=== PATIENT | female | born 1995 | race Caucasian/White ===

== ENCOUNTER 2023-04-26 23:29 | Emergency (ER) | payer OTHER, SELFPAY ==
--- OUTSIDE RECORDS SUMMARY | 2023-04-26 23:45 | XMS REPORT | Continuity of Care Document ---
Author Name Unknown Address [address] [facility] [place] [address] [facility] thconnect Address [address] [facility] [address] [place] [address] Care Team Providers Care Acute Specialist Name Role Phone [facility] Primary Care Physician DR SAMMY Albright Attending Clinician Unavailable [id number] Attending Clinician Unavailable [id number] Attending Clinician Unavailable ALVERTO OLIVARES Attending Clinician Unavailable Annleise Brown MA Attending Clinician UnavailCOSME Borrego Attending Clinician Unavailable DR CYRUS MCMANUS Attending Clinician Bull maggi [id number] Attending Clinician Unavailable N Attending Clinician Unavailable Alverto Olivares MD S Attending Clinician [phone] GLORIA JONES Attending Clinician UnavailGLORIA Magaña Attending Clinician UnavailCosme Borrego PA-C Attending Clinician [phone] Anna Morales Attending Clinician [phone] Roland Pearson, Lisa Manuel Attending Clinician [phone] LISA GARCIA Attending Clinician Unavailab le 1, [facility] Attending Clinician Noemi vailable Doctor Unassigned, Emery Attending Clinician U estephanieailELLIOT Chanel Attending Clinician Unavailable MAGALYS LACEY Attending Clinician Unavailable Magalys Lacey MD Attending Clinician [phone] TRACY WHEELER Attending Clinician Unavailable Tracy Wheeler MD Attending Clinician [phone] Elliot Gould MD Attending Clinician [phone] KIRAN SCALES Attending Clinician Unavailable Kiran Scales MD Attending Clinician [phone] SHARI DIAMOND Attending Clinician Unavailable SONIA MAYBERRY Attending Clinician Unavailable Sonia Mayberry MD Attending Clinician [phone] 3, [facility] Room Attending Clinician UnavailMorgan Otto MD Attending Clinician [phone] MORGAN GRANDE Attending Clinician Unavailable MORGAN GRANDE Attending Clinician Unavailable Colin Singh Attending Clinician + [phone] Nataliya Clifton Attending Clinician [phone] NOEL COOLEY Attending Clinician Unavailable Noel Cooley MD Attending Clinician [phone] Pob, [facility] Attending Clinician UnavailShari Johnson PA-C Attending Clinician [phone] Nurse, [facility] Attending Clinician Un available Kurtis CAMPBELL, Lisset Attending Clinician Unavail able Ran Arriaza MD Attending Clinician [phone] RAN ARRIAZA Attending Clinician Unavailable RAN ARRIAZA Attending Clinician Unavailable 1, [facility] Room Attending Clinician Unavaila Ever Alvarez DO Attending Clinician [phone] Ultrasound, [facility] Attending Clinician Unavaila keo Bower MD, Gus Bangura Attending Clinician + [phone] GUS BOWER Attending Clinician Unavaila ble 2, [facility] Attending Clinician Unavailable DERRICK CARBONE Attending Clinician Unavaila keo Gonzalez RN, Adele Manuel Attending Clinician Unavail able Alejandra ACUNA, Emanuel Attending Clinician [phone] [facility], [facility] Neurology Continuity Attending Bon roberson Unavailable ALPHONSO MEJIA Attending Clinician Unavailotto Miller NP, Coleen Crisostomo Attending Clinician + [phone] Melissa Romeo DO Attending Clinician + [phone] ROBY Attending Clinician Unavailable Nkechi Carballo Attending Clinician [phone] Abdirashid Guajardo DO Attending Clinician [phone] Macario Arriaza DO Attending Clinician [phone] TAYLOR HILARIO Attending Clinician Unayves Aranda, [facility] Attending Clinician Unavailable Abner Laguna MD Attending Clinician [phone] DR SAMMY JI Admitting Clinician Unavailable NOEL COOLEY Admitting Clinician Unavailable ELLIOT GOULD Admitting Clinician Unavailable DR CYRUS MCMANUS [facility] Admitting Clinician Elliot Fernandez MD Admitting Clinician [phone] SONIA MAYBERRY Admitting Clinician Unavailable Sonia Mayberry MD Admitting Clinician [phone] Noel Cooley MD Admitting Clinician [phone] Emanuel Roberts MD Admitting Clinician [phone] ROBY Admitting Clinician Unavailable Payers Payer Name Policy Type Policy Number Effective Date Expirati on Date Source [facility] [id number] [facility] [id number] [facility] [id number] 2020 00:00:00 [facility] [place] [id number] 2019 00:00:00 [employer] HMO [id number] 2015 00:00:00 [employer] (POS) [id number] 2015 00:00:00 2020 00:00:00 Problems Condition Name Condition Details Condition Category Status Onset Date Resolution Date Last Treatment Date Treating Clinician Comments Source History of anxiety History of anxiety Disease Active 2021-04 00:00: 00 [facility] History of depression History of depression Disease Active 2021-04 00:00: 00 [facility] Liveborn , of knight , born in hospital by delivery Liveborn infant, of knight , born in hospital by delivery Disease Active 2021-04 00:00: 00 [facility] History of gestationa l hypertensi on History of gestationa l hypertensi on Disease Active 2021-04 00:00: 00 Overview: Formattin g of this note might be different from the original. Added automatic ally from request for surgery [id number] [facility] Headache Headache Disease Active 2021-04 0 00:00: 00 [facility] 33 weeks gestation of 33 weeks gestation of Disease Active 2021-04 014 00:00: 00 [facility] Placenta previa without hemorrhage , antepartum Placenta previa without hemorrhage , antepartum Disease Active 8-03 00:00: 00 [facility] High risk , antepartum High risk , antepartum Disease Active 4-12 00:00: 00 [facility] IIH (idiopathi c intracrani al hypertensi on) IIH (idiopathi c intracrani al hypertensi on) Disease Active 9-23 00:00: 00 [facility] Vaginal cyst Vaginal cyst Disease Active 2017-04 1 00:00: 00 [facility] Obesity (BMI 30-39.9) Obesity (BMI 30-39.9) Disease Active 2017-04 0 00:00: 00 [facility] 36 weeks gestation of 36 weeks gestation of Disease Active 12-25 00:00: 00 [facility] Cold sore Cold sore Disease Active 06-13 00:00: 00 [facility] Atrial fibrillati on, unspecifie d type Atrial fibrillati on, unspecifie d type Disease Active 06-13 00:00: 00 [facility] Nausea Nausea Disease Active 06-13 00:00: 00 [facility] Allergies, Adverse Reactions, Alerts Allergy Name Allergy Type Status Severity Reaction(s) Onset Date Inactive Date Treating Clinician Comments Source No Known Allergie s DA Active U 07-31 00:00: 00 [facility] No Known Environm ental Allergie s MA Active UNKNOWN [facility] No Known Drug Allergie s MA Active UNKNOWN [facility] No Known Food Allergie s MA Active UNKNOWN [facility] NO KNOWN ALLERGIE S Drug Class Active [facility] Family History Family Member Diagnosis Comments Start Date Stop Date Sourc e Natural brother Asthma [facility] Natural father Genetic Unive [facility] Natural mother Depression [facility] Family member Ar[facility]ritis [facility] member Breast Cancer [facility] member Cancer [facility] Family member Colon [facility] Family member Diabetes [facility] Family member Heart [facility] Family member High cholesterol [facility] Family member [facility]pertension [facility] Family member Mental retardation [facility] Family member Neurological [facility] Family [facility]oporosis [facility] Family member Ovarian [facility] member [facility] Family member [facility]ine [facility] Social History Social Habit Start Date Stop Date Quantity Comments Source ASSERTION 2021-06-30 00:00:00 [facility] History SDOH Alcohol Std Drinks [facility] History SDOH Alcohol Binge [facility] History SDOH Alcohol Comment [facility] Gender identity [facility] Sexual orientation [facility] Alcohol intake 2023-01-21 00:00:00 2023-01-21 00:00:00 0 /d [facility] History of Social function 2023-01-21 00:00:00 2023-01-21 00:00:00 [facility] Exposure to SARS-CoV-2 (event) 2022-08-13 00:00:00 2022-08-23 13:15:00 Not sure [facility] Tobacco use and exposure 2021-11-22 00:00:00 2021-11-22 00:00:00 Smokeless tobacco non-user [facility] History SDOH Alcohol Frequency 2021-07-19 00:00:00 2021-07-19 00:00:00 1 [facility] Sex Assigned At 1995 00:00:00 1995 00:00:00 [facility] Smoking Status Start Date Stop Date Source Never smoked tobacco [facility] Medications Ordered Medication Name Filled Medication Name Start Date Stop Date Current Medication? Ordering Clinician Indication Dosage Frequency Signature (SIG) Comments Components Source memantine (NAMENDA) 5 mg tablet 2022-04 00:00: 00 Yes [id number] 10mg Take 2 tablets by mouth in the morning and 2 tablets in the evening. [facility] memantine (NAMENDA) 5 mg tablet 2022-04 00:00: 00 Yes [id number] 10mg Take 2 tablets by mouth in the morning and 2 tablets in the evening. [facility] memantine (NAMENDA) 5 mg tablet 2022-04 00:00: 00 Yes [id number] 10mg Take 2 tablets by mouth in the morning and 2 tablets in the evening. [facility] amphetamine -dextroamph etamine 30 mg 24 hr capsule 8-29 00:00: 00 Yes TAKE 1 CAPSULE BY MOUTH IN THE MORNING [facility] amphetamine -dextroamph etamine 30 mg 24 hr capsule 2022-0 829 00:00: 00 Yes TAKE 1 CAPSULE BY MOUTH IN THE MORNING [facility] amphetamine -dextroamph etamine 30 mg 24 hr capsule 2022-0 829 00:00: 00 Yes TAKE 1 CAPSULE BY MOUTH IN THE MORNING [facility] meclizine 25 mg tablet 2022-0 4-11 00:00: 00 Yes [id number] 25mg Take 1 tablet by mouth every 6 (six) hours as needed for Dizziness. [facility] meclizine 25 mg tablet 2022-0 4-11 00:00: 00 Yes [id number] 25mg Take 1 tablet by mouth every 6 (six) hours as needed for Dizziness. [facility] meclizine 25 mg tablet 2022-0 4-11 00:00: 00 Yes [id number] 25mg Take 1 tablet by mouth every 6 (six) hours as needed for Dizziness. [facility] meclizine 25 mg tablet 2022-0 4-11 00:00: 00 Yes [id number] 25mg Take 1 tablet by mouth every 6 (six) hours as needed for Dizziness. [facility] meclizine 25 mg tablet 2022-0 4-11 00:00: 00 Yes [id number] 25mg Take 1 tablet by mouth every 6 (six) hours as needed for Dizziness. [facility] meclizine 25 mg tablet 2022-0 4-11 00:00: 00 Yes [id number] 25mg Take 1 tablet by mouth every 6 (six) hours as needed for Dizziness. [facility] meclizine 25 mg tablet 2022-0 4-11 00:00: 00 Yes [id number] 25mg Take 1 tablet by mouth every 6 (six) hours as needed for Dizziness. [facility] meclizine 25 mg tablet 2022-0 4-11 00:00: 00 Yes [id number] 25mg Take 1 tablet by mouth every 6 (six) hours as needed for Dizziness. [facility] meclizine 25 mg tablet 3-0 4-11 00:00: 00 Yes [id number] 25mg Take 1 tablet by mouth every 6 (six) hours as needed for Dizziness. [facility] meclizine 25 mg tablet 411 00:00: 00 Yes [id number] 25mg Take 1 tablet by mouth every 6 (six) hours as needed for Dizziness. [facility] meclizine 25 mg tablet 07-31 00:00: 00 01-21 00:00 :00 No [id number] 25mg Take 1 tablet by mouth every 6 (six) hours as needed for Dizziness. [facility] meclizine 25 mg tablet 07-31 00:00: 00 01-21 00:00 :00 No [id number] 25mg Take 1 tablet by mouth every 6 (six) hours as needed for Dizziness. [facility] ketorolac (TORADOL) tablet 20 mg 05-22 02:30: 00 05-22 01:35 :00 No 20mg 20 mg, Oral, ONCE NOW, 1 dose, On Sat05/21/22 at 2030, [facility] predniSONE (DELTASONE) tablet 40 mg 05-22 02:00: 00 05-22 02:07 :00 No 40mg 40 mg, Oral, ONCE, 1 dose, On Sat05/21/22 at 2000, [facility] ketorolac 10 mg tablet 05-21 00:00: 00 Yes [id number] 10mg Take 1 tablet by mouth every 6 (six) hours as needed for Pain (scale 4-6) or Pain (scale 7-10). [facility] ketorolac 10 mg tablet 05-21 00:00: 00 Yes [id number] 10mg Take 1 tablet by mouth every 6 (six) hours as needed for Pain (scale 4-6) or Pain (scale 7-10). [facility] ketorolac 10 mg tablet 0 05-21 00:00: 00 Yes [id number] 10mg Take 1 tablet by mouth every 6 (six) hours as needed for Pain (scale 4-6) or Pain (scale 7-10). [facility] ketorolac 10 mg tablet 05-21 00:00: 00 Yes [id number] 10mg Take 1 tablet by mouth every 6 (six) hours as needed for Pain (scale 4-6) or Pain (scale 7-10). [facility] ketorolac 10 mg tablet 05-21 00:00: 00 Yes [id number] 10mg Take 1 tablet by mouth every 6 (six) hours as needed for Pain (scale 4-6) or Pain (scale 7-10). [facility] ketorolac 10 mg tablet 05-21 00:00: 00 Yes [id number] 10mg Take 1 tablet by mouth every 6 (six) hours as needed for Pain (scale 4-6) or Pain (scale 7-10). [facility] ketorolac 10 mg tablet 05-21 00:00: 00 Yes [id number] 10mg Take 1 tablet by mouth every 6 (six) hours as needed for Pain (scale 4-6) or Pain (scale 7-10). [facility] ketorolac 10 mg tablet 05-21 00:00: 00 Yes [id number] 10mg Take 1 tablet by mouth every 6 (six) hours as needed for Pain (scale 4-6) or Pain (scale 7-10). [facility] ketorolac 10 mg tablet 05-21 00:00: 00 Yes [id number] 10mg Take 1 tablet by mouth every 6 (six) hours as needed for Pain (scale 4-6) or Pain (scale 7-10). [facility] ketorolac 10 mg tablet 05-21 00:00: 00 Yes [id number] 10mg Take 1 tablet by mouth every 6 (six) hours as needed for Pain (scale 4-6) or Pain (scale 7-10). [facility] ketorolac 10 mg tablet 05-21 00:00: 00 Yes [id number] 10mg Take 1 tablet by mouth every 6 (six) hours as needed for Pain (scale 4-6) or Pain (scale 7-10). [facility] ketorolac 10 mg tablet 05-21 00:00: 00 01-21 00:00 :00 No [id number] 10mg Take 1 tablet by mouth every 6 (six) hours as needed for Pain (scale 4-6) or Pain (scale 7-10). [facility] ketorolac 10 mg tablet 05-21 00:00: 00 01-21 00:00 :00 No [id number] 10mg Take 1 tablet by mouth every 6 (six) hours as needed for Pain (scale 4-6) or Pain (scale 7-10). [facility] amoxicillin -clavulanat e 875-125 mg per tablet 05-21 00:00: 00 06-01 05:59 :00 No [id number] 1{tbl} Take 1 tablet by mouth every 12 (twelve) hours for 10 days. [facility] ibuprofen (IBU) tablet 600 mg 2021-04 13:30: 00 03-30 14:08 :00 No 600mg 600 mg, Oral, ONCE, 1 dose, On Sat03/30/22 at 0730, [facility] amoxicillin 500 mg tablet 2021-04 00:00: 00 04-10 05:59 :00 No [id number] 500mg Take 1 tablet by mouth in the morning and 1 tablet in the evening. Do all this for 10 days. [facility] norelgestro min-ethinyl estradiol 150-35 mcg/24 hr patch 2021-04 00:00: 00 Yes [id number] 1{patch } Apply 1 Patch to skin weekly. [facility] norelgestro min-ethinyl estradiol 150-35 mcg/24 hr patch 2021-04 00:00: 00 Yes [id number] 1{patch } Apply 1 Patch to skin weekly. [facility] norelgestro min-ethinyl estradiol 150-35 mcg/24 hr patch 2021-04 00:00: 00 Yes [id number] 1{patch } Apply 1 Patch to skin weekly. [facility] norelgestro min-ethinyl estradiol 150-35 mcg/24 hr patch 2021-04 00:00: 00 Yes [id number] 1{patch } Apply 1 Patch to skin weekly. [facility] norelgestro min-ethinyl estradiol 150-35 mcg/24 hr patch 2021-04 2- 00:00: 00 Yes [id number] 1{patch } Apply 1 Patch to skin weekly. [facility] norelgestro min-ethinyl estradiol 150-35 mcg/24 hr patch 2021-04 2- 00:00: 00 Yes [id number] 1{patch } Apply 1 Patch to skin weekly. [facility] norelgestro min-ethinyl estradiol 150-35 mcg/24 hr patch 2021-04 2- 00:00: 00 Yes [id number] 1{patch } Apply 1 Patch to skin weekly. [facility] norelgestro min-ethinyl estradiol 150-35 mcg/24 hr patch 2021-04 2 00:00: 00 Yes [id number] 1{patch } Apply 1 Patch to skin weekly. [facility] norelgestro min-ethinyl estradiol 150-35 mcg/24 hr patch 2021-04 2 00:00: 00 Yes [id number] 1{patch } Apply 1 Patch to skin weekly. [facility] norelgestro min-ethinyl estradiol 150-35 mcg/24 hr patch 2021-04 2 00:00: 00 Yes [id number] 1{patch } Apply 1 Patch to skin weekly. [facility] norelgestro min-ethinyl estradiol 150-35 mcg/24 hr patch 2021-04 2- 00:00: 00 Yes [id number] 1{patch } Apply 1 Patch to skin weekly. [facility] norelgestro min-ethinyl estradiol 150-35 mcg/24 hr patch 2021-04 2- 00:00: 00 Yes [id number] 1{patch } Apply 1 Patch to skin weekly. [facility] norelgestro min-ethinyl estradiol 150-35 mcg/24 hr patch 2021-04 2- 00:00: 00 Yes [id number] 1{patch } Apply 1 Patch to skin weekly. [facility] norelgestro min-ethinyl estradiol 150-35 mcg/24 hr patch 2021-04 2 00:00: 00 Yes [id number] 1{patch } Apply 1 Patch to skin weekly. [facility] norelgestro min-ethinyl estradiol 150-35 mcg/24 hr patch 2021-04 2 00:00: 00 Yes [id number] 1{patch } Apply 1 Patch to skin weekly. [facility] norelgestro min-ethinyl estradiol 150-35 mcg/24 hr patch 2021-04 2 00:00: 00 Yes [id number] 1{patch } Apply 1 Patch to skin weekly. [facility] norelgestro min-ethinyl estradiol 150-35 mcg/24 hr patch 2021-04 00:00: 00 01-21 00:00 :00 No [id number] 1{patch } Apply 1 Patch to skin weekly. [facility] norelgestro min-ethinyl estradiol 150-35 mcg/24 hr patch 2021-04 00:00: 00 01-21 00:00 :00 No [id number] 1{patch } Apply 1 Patch to skin weekly. [facility] ibuprofen (IBU) tablet 600 mg 2021-04 18:00: 00 Yes 600mg 600 mg, Oral, Q6H ABX, First dose on Sat02/28/22 at 1200, Until Discontinu ed, Routine [facility] ibuprofen (IBU) tablet 600 mg 2021-04 18:00: 00 Yes 600mg 600 mg, Oral, Q6H ABX, First dose on Sat02/28/22 at 1200, Until Discontinu ed, Routine [facility] ketorolac (TORADOL) injection 30 mg 2021-04 18:00: 00 02-28 17:59 :00 No 30mg 30 mg, Slow IV Push, Q6H ABX, 4 doses, First dose on Sat02/27/22 at 1200, Last dose on Sat02/28/22 at 0600, Routine [facility] ketorolac (TORADOL) injection 30 mg 2021-04 18:00: 00 02-28 12:04 :00 No 30mg 30 mg, Slow IV Push, Q6H ABX, 4 doses, First dose on Sat02/27/22 at 1200, Last dose on Sat02/28/22 at 0600, Routine [facility] gabapentin (NEURONTIN) capsule 300 mg 2021-04 14:00: 00 Yes 300mg 300 mg, Oral, TID, First dose on Sat02/27/22 at 0800, Until Discontinu ed, Routine [facility] buPROPion (WELLBUTRIN ) tablet 100 mg 2021-04 14:00: 00 Yes 100mg 100 mg, Oral, BID, First dose on Sat02/27/22 at 0800, Until Discontinu ed, Routine [facility] gabapentin (NEURONTIN) capsule 300 mg 2021-04 14:00: 00 Yes 300mg 300 mg, Oral, TID, First dose on Sat02/27/22 at 0800, Until Discontinu ed, Routine [facility] buPROPion (WELLBUTRIN ) tablet 100 mg 2021-04 14:00: 00 Yes 100mg 100 mg, Oral, BID, First dose on Sat02/27/22 at 0800, Until Discontinu ed, Routine [facility] acetaminoph en (TYLENOL) tablet 650 mg 2021-04 12:00: 00 Yes 650mg 650 mg, Oral, Q6H ABX, First dose on Sat02/27/22 at 0600, Until Discontinu ed, Routine [facility] acetaminoph en (TYLENOL) tablet 650 mg 2021-04 12:00: 00 Yes 650mg 650 mg, Oral, Q6H ABX, First dose on Sat02/27/22 at 0600, Until Discontinu ed, Routine [facility] PNV no.95/nathan fum/folic ac ( ORAL) 2021-04 08:01: 58 02-27 00:00 :00 No [facility] us fum/folic ac ( ORAL) 2021-04 08:01: 58 02-27 00:00 :00 No Take by mouth. [facility] PNV no.95/nathan us fum/folic ac ( ORAL) 2021-04 08:01: 58 02-27 00:00 :00 No Take by mouth. [facility] PNV no.95/nathan us fum/folic ac ( ORAL) 2021-04 08:01: 58 02-27 00:00 :00 No Take by mouth. [facility] sodium chloride 0.9 % irrigation solution 2021-04 05:54: 00 Yes PRN, Starting on Sat02/26/22 at 2354, Until Discontinu ed, Intra-op [facility] sodium chloride 0.9 % irrigation solution 2021-04 05:54: 00 Yes PRN, Starting on Sat02/26/22 at 2354, Until Discontinu ed, Intra-op [facility] lactated ringers IV infusion 1,000 mL 2021-04 03:00: 00 02-27 07:13 :16 No 1000mL at 125 mL/hr, 1,000 mL, IV Infusion, ONCE, 1 dose, On Sat02/26/22 at 2100, Routine [facility] rho(D) immune globulin (RHOGAM) syringe 300 mcg 2021-04 02:57: 35 Yes 300ug 300 mcg, Intramuscu lar, ONCE, For 1 dose, Conditiona l, Routine [facility] rho(D) immune globulin (RHOGAM) syringe 300 mcg 2021-04 02:57: 35 Yes 300ug 300 mcg, Intramuscu lar, ONCE, For 1 dose, Conditiona l, Routine [facility] HYDROcodone -acetaminop hen (NORCO 5) 5-325 mg tablet 1 tablet 2021-04 02:57: 30 Yes 1{tbl} 1 tablet, Oral, Q6HPRN, Starting on Sat02/26/22 at 2057, Until Discontinu ed, Routine, Pain (scale 7-10), Alternate with Ibuprofen [facility] diphenhydrA MINE (BENADRYL) injection 25 mg 2021-04 02:57: 30 Yes 25mg 25 mg, Slow IV Push, Q6HPRN, Starting on Sat02/26/22 at 2056, Until Discontinu ed, Routine, Itching [facility] diphenhydrA MINE (BENADRYL) tablet 25 mg 2021-04 02:57: 30 Yes 25mg 25 mg, Oral, Q6HPRN, Starting on Sat02/26/22 at 2056, Until Discontinu ed, Routine, Sleep, Itching [facility] ondansetron (ZOFRAN (PF)) injection 4 mg 2021-04 02:57: 30 Yes 4mg 4 mg, Slow IV Push, Q8HPRN, Starting on Sat02/26/22 at 2056, Until Discontinu ed, Routine, Nausea and Vomiting (N/V) [facility] bisacodyL (DULCOLAX) suppository 10 mg 2021-04 02:57: 30 Yes 10mg 10 mg, Rectal, QDAILYPRN, Starting on Sat02/26/22 at 2056, Until Discontinu ed, Routine, Constipati on [facility] simethicone (GAS RELIEF (SIMETHICON E)) chewable tablet 160 mg 2021-04 02:57: 30 Yes 160mg 160 mg, Oral, PC+HSPRN, Starting on Sat02/26/22 at 2056, Until Discontinu ed, Routine, Gas [facility] docusate (COLACE) capsule 200 mg 2021-04 02:57: 30 Yes 200mg 200 mg, Oral, QDAILYPRN, Starting on Sat02/26/22 at 2056, Until Discontinu ed, Routine, Constipati on [facility] magnesium hydroxide (MILK OF MAGNESIA) 400 mg/5 mL suspension 30 mL 2021-04 02:57: 30 Yes 30mL 30 mL, Oral, QDAILYPRN, Starting on Sat02/26/22 at 2056, Until Discontinu ed, Routine, Constipati on [facility] lactated ringers IV infusion 1,000 mL 2021-04 02:57: 30 Yes 1000mL at 125 mL/hr, 1,000 mL, IV Infusion, PRN, 1 dose, Starting on Sat02/26/22 at 2056, Until Discontinu ed, Routine [facility] HYDROcodone -acetaminop hen (NORCO 5) 5-325 mg tablet 1 tablet 2021-04 02:57: 30 Yes 1{tbl} 1 tablet, Oral, Q6HPRN, Starting on Sat02/26/22 at 2056, Until Discontinu ed, Routine, Pain (scale 7-10), Alternate with Ibuprofen [facility] diphenhydrA MINE (BENADRYL) injection 25 mg 2021-04 02:57: 30 Yes 25mg 25 mg, Slow IV Push, Q6HPRN, Starting on Sat02/26/22 at 2056, Until Discontinu ed, Routine, Itching [facility] diphenhydrA MINE (BENADRYL) tablet 25 mg 2021-04 02:57: 30 Yes 25mg 25 mg, Oral, Q6HPRN, Starting on Sat02/26/22 at 2056, Until Discontinu ed, Routine, Sleep, Itching [facility] ondansetron (ZOFRAN (PF)) injection 4 mg 2021-04 02:57: 30 Yes 4mg 4 mg, Slow IV Push, Q8HPRN, Starting on Sat02/26/22 at 2056, Until Discontinu ed, Routine, Nausea and Vomiting (N/V) [facility] bisacodyL (DULCOLAX) suppository 10 mg 2021-04 02:57: 30 Yes 10mg 10 mg, Rectal, QDAILYPRN, Starting on Sat02/26/22 at 2056, Until Discontinu ed, Routine, Constipati on [facility] simethicone (GAS RELIEF (SIMETHICON E)) chewable tablet 160 mg 2021-04 02:57: 30 Yes 160mg 160 mg, Oral, PC+HSPRN, Starting on Sat02/26/22 at 205, Until Discontinu ed, Routine, Gas [facility] docusate (COLACE) capsule 200 mg 2021-04 02:57: 30 Yes 200mg 200 mg, Oral, QDAILYPRN, Starting on Sat02/26/22 at 205, Until Discontinu ed, Routine, Constipati on [facility] magnesium hydroxide (MILK OF MAGNESIA) 400 mg/5 mL suspension 30 mL 2021-04 02:57: 30 Yes 30mL 30 mL, Oral, QDAILYPRN, Starting on Sat02/26/22 at 205, Until Discontinu ed, Routine, Constipati on [facility] lactated ringers IV infusion 1,000 mL 2021-04 02:57: 30 Yes 1000mL at 125 mL/hr, 1,000 mL, IV Infusion, PRN, 1 dose, Starting on Sat02/26/22 at 2056, Until Discontinu ed, Routine [facility] mupirocin (BACTROBAN OINT) 2 % skin ointment 2021-04 02:30: 00 Yes Intra-op [facility] mupirocin (BACTROBAN OINT) 2 % skin ointment 2021-04 02:30: 00 Yes Intra-op [facility] betamethaso ne acet,sod phos (CELESTONE SOLUSPAN) 6 mg/mL injection 12 mg 2021-04 00:22: 00 02-27 00:23 :00 No 12mg 12 mg, Intramuscu lar, ONCE, 1 dose, On Sat02/26/22 at 1830, Routine [facility] acetaminoph en 325 mg tablet 2021-04 00:00: 00 Yes [id number] 650mg Take 2 tablets by mouth every 6 (six) hours as needed for Pain (scale 1-3) or Pain (scale 4-6). [facility] vitamin w/FA tablet 2021-04 00:00: 00 Yes [id number] 1{tbl} Take 1 tablet by mouth in the morning. [facility] docusate 100 mg capsule 2021-04 00:00: 00 Yes [id number] 200mg Take 2 capsules by mouth once daily as needed for Constipati on. [facility] ferrous sulfate 325 mg (65 mg iron) tablet 2021-04 00:00: 00 Yes [id number] 325mg Take 1 tablet by mouth in the morning and 1 tablet in the evening. [facility] ibuprofen 600 mg tablet 2021-04 00:00: 00 Yes [id number] 600mg Take 1 tablet by mouth every 6 (six) hours as needed (Pain). Take with food or milk. [facility] acetaminoph en 325 mg tablet 2021-04 00:00: 00 Yes [id number] 650mg Take 2 tablets by mouth every 6 (six) hours as needed for Pain (scale 1-3) or Pain (scale 4-6). [facility] vitamin w/FA tablet 2021-04 00:00: 00 Yes [id number] 1{tbl} Take 1 tablet by mouth in the morning. [facility] docusate 100 mg capsule 2021-04 00:00: 00 Yes [id number] 200mg Take 2 capsules by mouth once daily as needed for Constipati on. [facility] ferrous sulfate 325 mg (65 mg iron) tablet 2021-04 00:00: 00 Yes [id number] 325mg Take 1 tablet by mouth in the morning and 1 tablet in the evening. [facility] ibuprofen 600 mg tablet 2021-04 00:00: 00 Yes [id number] 600mg Take 1 tablet by mouth every 6 (six) hours as needed (Pain). Take with food or milk. [facility] acetaminoph en 325 mg tablet 2021-04 00:00: 00 Yes [id number] 650mg Take 2 tablets by mouth every 6 (six) hours as needed for Pain (scale 1-3) or Pain (scale 4-6). [facility] vitamin w/FA tablet 2021-04 00:00: 00 Yes [id number] 1{tbl} Take 1 tablet by mouth in the morning. [facility] docusate 100 mg capsule 2021-04 00:00: 00 Yes [id number] 200mg Take 2 capsules by mouth once daily as needed for Constipati on. [facility] ferrous sulfate 325 mg (65 mg iron) tablet 2021-04 00:00: 00 Yes [id number] 325mg Take 1 tablet by mouth in the morning and 1 tablet in the evening. [facility] ibuprofen 600 mg tablet 2021-04 00:00: 00 Yes [id number] 600mg Take 1 tablet by mouth every 6 (six) hours as needed (Pain). Take with food or milk. [facility] acetaminoph en 325 mg tablet 2021-04 00:00: 00 03-28 00:00 :00 No [id number] 650mg Take 2 tablets by mouth every 6 (six) hours as needed for Pain (scale 1-3) or Pain (scale 4-6). [facility] vitamin w/FA tablet 2021-04 00:00: 00 03-28 00:00 :00 No [id number] 1{tbl} Take 1 tablet by mouth in the morning. [facility] docusate 100 mg capsule 2021-04 00:00: 00 03-28 00:00 :00 No [id number] 200mg Take 2 capsules by mouth once daily as needed for Constipati on. [facility] ferrous sulfate 325 mg (65 mg iron) tablet 2021-04 00:00: 00 03-28 00:00 :00 No [id number] 325mg Take 1 tablet by mouth in the morning and 1 tablet in the evening. [facility] ibuprofen 600 mg tablet 2021-04 00:00: 00 03-28 00:00 :00 No [id number] 600mg Take 1 tablet by mouth every 6 (six) hours as needed (Pain). Take with food or milk. [facility] acetaminoph en 325 mg tablet 2021-04 00:00: 03-28 00:00 :00 No [id number] 650mg Take 2 tablets by mouth every 6 (six) hours as needed for Pain (scale 1-3) or Pain (scale 4-6). [facility] vitamin w/FA tablet 2021-04 00:00: 00 03-28 00:00 :00 No [id number] 1{tbl} Take 1 tablet by mouth in the morning. [facility] docusate 100 mg capsule 2021-04 00:00: 00 03-28 00:00 :00 No [id number] 200mg Take 2 capsules by mouth once daily as needed for Constipati on. [facility] ferrous sulfate 325 mg (65 mg iron) tablet 2021-04 00:00: 00 03-28 00:00 :00 No [id number] 325mg Take 1 tablet by mouth in the morning and 1 tablet in the evening. [facility] ibuprofen 600 mg tablet 2021-04 00:00: 03-28 00:00 :00 No [id number] 600mg Take 1 tablet by mouth every 6 (six) hours as needed (Pain). Take with food or milk. [facility] HYDROcodone -acetaminop hen 5-325 mg tablet 2021-04 00:00: 00 03-07 05:59 :00 No [id number] 1{tbl} Take 1 tablet by mouth every 6 (six) hours as needed for Pain (scale 7-10) (Alternate with Ibuprofen) for up to 7 days. Indication s: acute pain [facility] HYDROcodone -acetaminop hen 5-325 mg tablet 2021-04 00:00: 00 03-07 05:59 :00 No [id number] 1{tbl} Take 1 tablet by mouth every 6 (six) hours as needed for Pain (scale 7-10) (Alternate with Ibuprofen) for up to 7 days. Indication s: acute pain [facility] gabapentin 300 mg capsule 2021-04 00:00: 00 03-05 05:59 :00 No [id number] 300mg Take 1 capsule by mouth in the morning and 1 capsule at noon and 1 capsule in the evening. Do all this for 5 days. [facility] gabapentin 300 mg capsule 2021-04 00:00: 00 03-05 05:59 :00 No [id number] 300mg Take 1 capsule by mouth in the morning and 1 capsule at noon and 1 capsule in the evening. Do all this for 5 days. [facility] sodium citrate-cit jaylen acid (BICITRA) 500-334 mg/5 mL solution 30 mL 2021-04 21:55: 25 02-27 01:28 :00 No 30mL 30 mL, Oral, PRE-PROCED URE ONCE, 1 dose, Starting on Sat02/26/22 at 1555, Until Discontinu ed, Routine, Surgery/Pr ocedure [facility] lactated ringers IV infusion 500 mL 2021-04 21:55: 25 02-27 02:57 :33 No 500mL at 999 mL/hr, 500 mL, IV Infusion, PRN - SEE INSTRUCTIO NS, Starting on Sat02/26/22 at 1555, Until Sat02/26/22 at 2056, Routine [facility] D5W-LR IV infusion 1,000 mL 2021-04 21:55: 25 02-27 02:57 :33 No 1000mL at 1-125 mL/hr, IV Infusion, TITRATE, Starting on Sat02/26/22 at 1555, Until Sat02/26/22 at 2056, Routine [facility] PNV no.95/nathan us fum/folic ac ( ORAL) 2021-04 19:48: 58 Yes Take by mouth. [facility] PNV no.95/nathan us fum/folic ac ( ORAL) 2021-04 15:52: 08 Yes Take by mouth. [facility] Nitrofurant oin&Nit. Macrocryst (MACROBID) 100 mg capsule 100 mg 2021-04 21:30: 00 02-25 20:43 :00 No 100mg 100 mg, Oral, ONCE, 1 dose, On 02/25/22 at 1530, Routine
Reason for Anti-Infec tive: Empiric Therapy for Suspected Infection< br>Empiric Therapy Site: Urine
D uration of therapy: 5 days [facility] PNV no.95/nathan us fum/folic ac ( ORAL) 2021-04 15:22: 42 Yes Take by mouth. [facility] PNV no.95/nathan us fum/folic ac ( ORAL) 2021-04 15:22: 42 Yes Take by mouth. [facility] Nitrofurant oin&Nit. Macrocryst 100 mg capsule 2021-04 00:00: 00 Yes [id number] 100mg Take 1 capsule by mouth in the morning and 1 capsule in the evening. [facility] Nitrofurant oin&Nit. Macrocryst 100 mg capsule 2021-04 00:00: 00 Yes [id number] 100mg Take 1 capsule by mouth in the morning and 1 capsule in the evening. [facility] Nitrofurant oin&Nit. Macrocryst 100 mg capsule 2021-04 00:00: 00 Yes [id number] 100mg Take 1 capsule by mouth in the morning and 1 capsule in the evening. [facility] Nitrofurant oin&Nit. Macrocryst 100 mg capsule 2021-04 00:00: 00 Yes [id number] 100mg Take 1 capsule by mouth in the morning and 1 capsule in the evening. [facility] Nitrofurant oin&Nit. Macrocryst 100 mg capsule 2021-04 00:00: 00 02-27 00:00 :00 No [id number] 100mg Take 1 capsule by mouth in the morning and 1 capsule in the evening. [facility] Nitrofurant oin&Nit. Macrocryst 100 mg capsule 2021-04 00:00: 00 02-27 00:00 :00 No [id number] 100mg Take 1 capsule by mouth in the morning and 1 capsule in the evening. [facility] SUMAtriptan (IMITREX) tablet 50 mg 2021-04 01:30: 00 02-09 01:07 :00 No 50mg 50 mg, Oral, ONCE, 1 dose, On [place] 02/08/22 at 2030, Routine [facility] magnesium sulfate in water 2 gram/50 mL (4 %) infusion 2 g 2021-04 01:30: 00 02-09 02:07 :00 No 2g 2 g, IV Piggyback, Administer over 60 Minutes, ONCE, 1 dose, On [place] 02/08/22 at 2030, Routine [facility] D5W-LR IV infusion 1,000 mL 2021-04 01:00: 00 Yes 1000mL at 150 mL/hr, IV Infusion, CONTINUOUS , Starting on [place] 02/08/22 at 2015, Until Discontinu ed, Routine [facility] NaCl 0.9% (NS) IV infusion 1,000 mL 2021-04 22:45: 00 02-08 22:30 :00 No 1000mL at 999 mL/hr, IV Infusion, ONCE, 1 dose, On [place] 02/08/22 at 1745, Routine
Then D5LR at 150 ml/hr
[facility] ondansetron (ZOFRAN (PF)) injection 4 mg 2021-04 22:36: 00 02-08 22:50 :00 No 4mg 4 mg, Slow IV Push, ONCE, On [place] 02/08/22 at 1745, For 1 dose
Do ses of ondansetro n 16 mg and above need to be administer ed via IV piggyback. For Dose >=24mg ECG monitoring is advisable.
[facility] PNV no.95/nathan us fum/folic ac ( ORAL) 2021-04 22:25: 04 Yes Take by mouth. [facility] PNV no.95/nathan us fum/folic ac ( ORAL) 2021-04 22:25: 04 Yes Take by mouth. [facility] PNV no.95/nathan us fum/folic ac ( ORAL) 2022-1 0-20 22:25: 04 Yes Take by mouth. [facility] PNV no.95/nathan us fum/folic ac ( ORAL) 2021-04 0-20 22:25: 04 Yes Take by mouth. [facility] PNV no.95/nathan us fum/folic ac ( ORAL) 2021-04 0-20 22:25: 04 Yes Take by mouth. [facility] PNV no.95/nathan us fum/folic ac ( ORAL) 2021-04 020 22:25: 04 Yes Take by mouth. [facility] PNV no.95/nathan us fum/folic ac ( ORAL) 2021-04 020 22:25: 04 Yes Take by mouth. [facility] PNV no.95/nathan us fum/folic ac ( ORAL) 2021-04 020 22:25: 04 Yes Take by mouth. [facility] PNV no.95/nathan us fum/folic ac ( ORAL) 2021-04 020 22:25: 04 Yes Take by mouth. [facility] PNV no.95/nathan us fum/folic ac ( ORAL) 2021-04 0 12:35: 03 Yes Take by mouth. [facility] PNV no.95/nathan us fum/folic ac ( ORAL) 2021-04 019 12:35: 03 Yes Take by mouth. [facility] PNV no.95/nathan us fum/folic ac ( ORAL) 2021-04 019 12:35: 03 Yes Take by mouth. [facility] magnesium oxide 400 mg (241.3 mg magnesium) tablet 2021-04 0 00:00: 00 Yes [id number] 400mg Take 1 tablet by mouth in the morning. [facility] memantine 5 mg tablet 2021-04 0- 00:00: 00 Yes [id number] 5mg Take 1 tablet by mouth in the morning. [facility] magnesium oxide 400 mg (241.3 mg magnesium) tablet 2021-04 0- 00:00: 00 Yes [id number] 400mg Take 1 tablet by mouth in the morning. [facility] memantine 5 mg tablet 2021-04 0 00:00: 00 Yes [id number] 5mg Take 1 tablet by mouth in the morning. [facility] magnesium oxide 400 mg (241.3 mg magnesium) tablet 2021-04 0 00:00: 00 Yes [id number] 400mg Take 1 tablet by mouth in the morning. [facility] memantine 5 mg tablet 2021-04 0 00:00: 00 Yes [id number] 5mg Take 1 tablet by mouth in the morning. [facility] magnesium oxide 400 mg (241.3 mg magnesium) tablet 2021-04 0 00:00: 00 Yes [id number] 400mg Take 1 tablet by mouth in the morning. [facility] memantine 5 mg tablet 2021-04 0 00:00: 00 Yes [id number] 5mg Take 1 tablet by mouth in the morning. [facility] magnesium oxide 400 mg (241.3 mg magnesium) tablet 2021-04 0 00:00: 00 Yes [id number] 400mg Take 1 tablet by mouth in the morning. [facility] memantine 5 mg tablet 2021-04 0 00:00: 00 Yes [id number] 5mg Take 1 tablet by mouth in the morning. [facility] magnesium oxide 400 mg (241.3 mg magnesium) tablet 2021-04 0 00:00: 00 Yes [id number] 400mg Take 1 tablet by mouth in the morning. [facility] memantine 5 mg tablet 2021-04 0 00:00: 00 Yes [id number] 5mg Take 1 tablet by mouth in the morning. [facility] magnesium oxide 400 mg (241.3 mg magnesium) tablet 2021-04 0 00:00: 00 Yes [id number] 400mg Take 1 tablet by mouth in the morning. [facility] memantine 5 mg tablet 2021-04 0 00:00: 00 Yes [id number] 5mg Take 1 tablet by mouth in the morning. [facility] magnesium oxide 400 mg (241.3 mg magnesium) tablet 2021-04 0 00:00: 00 Yes [id number] 400mg Take 1 tablet by mouth in the morning. [facility] memantine 5 mg tablet 2021-04 0 00:00: 00 Yes [id number] 5mg Take 1 tablet by mouth in the morning. [facility] magnesium oxide 400 mg (241.3 mg magnesium) tablet 2021-04 0 00:00: 00 Yes [id number] 400mg Take 1 tablet by mouth in the morning. [facility] memantine 5 mg tablet 2021-04 0 00:00: 00 Yes [id number] 5mg Take 1 tablet by mouth in the morning. [facility] magnesium oxide 400 mg (241.3 mg magnesium) tablet 2021-04 0 00:00: 00 Yes [id number] 400mg Take 1 tablet by mouth in the morning. [facility] memantine 5 mg tablet 2021-04 0 00:00: 00 Yes [id number] 5mg Take 1 tablet by mouth in the morning. [facility] magnesium oxide 400 mg (241.3 mg magnesium) tablet 2021-04 0 00:00: 00 Yes [id number] 400mg Take 1 tablet by mouth in the morning. [facility] memantine 5 mg tablet 2021-04 0 00:00: 00 Yes [id number] 5mg Take 1 tablet by mouth in the morning. [facility] magnesium oxide 400 mg (241.3 mg magnesium) tablet 2021-04 0 00:00: 00 Yes [id number] 400mg Take 1 tablet by mouth in the morning. [facility] memantine 5 mg tablet 2021-04 0 00:00: 00 Yes [id number] 5mg Take 1 tablet by mouth in the morning. [facility] magnesium oxide 400 mg (241.3 mg magnesium) tablet 2021-04 0 00:00: 00 Yes [id number] 400mg Take 1 tablet by mouth in the morning. [facility] memantine 5 mg tablet 2021-04 0 00:00: 00 Yes [id number] 5mg Take 1 tablet by mouth in the morning. [facility] magnesium oxide 400 mg (241.3 mg magnesium) tablet 2021-04 0 00:00: 00 Yes [id number] 400mg Take 1 tablet by mouth in the morning. [facility] memantine 5 mg tablet 2021-04 00:00: 00 Yes [id number] 5mg Take 1 tablet by mouth in the morning. [facility] magnesium oxide 400 mg (241.3 mg magnesium) tablet 2021-04 00:00: 00 Yes [id number] 400mg Take 1 tablet by mouth in the morning. [facility] memantine 5 mg tablet 2021-04 00:00: 00 Yes [id number] 5mg Take 1 tablet by mouth in the morning. [facility] magnesium oxide 400 mg (241.3 mg magnesium) tablet 2021-04 00:00: 00 02-27 00:00 :00 No [id number] 400mg Take 1 tablet by mouth in the morning. [facility] memantine 5 mg tablet 2021-04 00:00: 00 02-27 00:00 :00 No [id number] 5mg Take 1 tablet by mouth in the morning. [facility] magnesium oxide 400 mg (241.3 mg magnesium) tablet 2021-04 00:00: 00 02-27 00:00 :00 No [id number] 400mg Take 1 tablet by mouth in the morning. [facility] memantine 5 mg tablet 2021-04 00:00: 00 02-27 00:00 :00 No [id number] 5mg Take 1 tablet by mouth in the morning. [facility] D5W-LR IV infusion 1,000 mL 2021-04 00:15: 00 Yes 1000mL at 150 mL/hr, IV Infusion, CONTINUOUS , Starting on 02/03/22 at 1915, Until Discontinu ed, Routine [facility] magnesium sulfate in water 2 gram/50 mL (4 %) infusion 2 g 2021-04 00:15: 00 02-04 02:03 :00 No 2g 2 g, IV Piggyback, Administer over 60 Minutes, ONCE, 1 dose, On 02/03/22 at 1915, Routine [facility] NaCl 0.9% (NS) bolus infusion 1,000 mL 2021-04 00:00: 00 02-04 00:58 :00 No 1000mL at 999 mL/hr, 1,000 mL, IV Piggyback, ONCE, 1 dose, On 02/03/22 at 1900, STAT [facility] SUMAtriptan (IMITREX) injection 6 mg 2021-04 00:00: 00 02-03 23:44 :00 No 6mg 6 mg, Subcutaneo us, ONCE, 1 dose, On 02/03/22 at 1900, Routine [facility] metoclopram abisai HCl (REGLAN) injection 10 mg 2021-04 00:00: 00 02-03 23:55 :00 No 10mg 10 mg, Slow IV Push, ONCE, 1 dose, On 02/03/22 at 1900, Routine [facility] proCHLORper azine (COMPAZINE) tablet 10 mg 2021-04 22:51: 00 02-03 22:59 :00 No 10mg 10 mg, Oral, ONCE NOW, 1 dose, On 02/03/22 at 1800, Routine [facility] PNV no.95/nathan us fum/folic ac ( ORAL) 2021-04 21:51: 21 Yes Take by mouth. [facility] PNV no.95/nathan us fum/folic ac ( ORAL) 2021-04 14:13: 44 Yes Take by mouth. [facility] PNV no.95/nathan us fum/folic ac ( ORAL) 2021-04 14:13: 44 Yes Take by mouth. [facility] magnesium sulfate in water 2 gram/50 mL (4 %) infusion 2 g 2021-04 13:45: 00 02-02 14:37 :00 No 2g 2 g, IV Piggyback, Administer over 60 Minutes, ONCE, 1 dose, On Sat02/02/22 at 0845, Routine [facility] SUMAtriptan (IMITREX) tablet 50 mg 2021-04 13:45: 00 02-02 13:32 :00 No 50mg 50 mg, Oral, ONCE, 1 dose, On Sat02/02/22 at 0845, Routine [facility] buPROPion (WELLBUTRIN ) tablet 100 mg 2021-04 13:00: 00 Yes 100mg 100 mg, Oral, BID, First dose on Sat02/02/22 at 0800, Until Discontinu ed, Routine [facility] acetaminoph en (TYLENOL) tablet 650 mg 2021-04 09:27: 47 Yes 650mg 650 mg, Oral, Q6HPRN, Starting on Sat02/02/22 at 0427, Until Discontinu ed, Routine, headache [facility] alum-mag hydroxide-s imeth (MAALOX PLUS / MAG-AL PLUS) 200-200-20 mg/5 mL suspension 30 mL 2021-04 08:04: 11 Yes 30mL 30 mL, Oral, Q6HPRN, Starting on Sat02/02/22 at 0304, Until Discontinu ed, Routine, Indigestio n [facility] docusate (COLACE) capsule 200 mg 2021-04 08:04: 11 Yes 200mg 200 mg, Oral, QHSPRN, Starting on Sat02/02/22 at 0304, Until Discontinu ed, Routine, Constipati on [facility] magnesium hydroxide (MILK OF MAGNESIA) 400 mg/5 mL suspension 30 mL 2021-04 08:04: 11 Yes 30mL 30 mL, Oral, QDAILYPRN, Starting on Sat02/02/22 at 0304, Until Discontinu ed, Routine, Constipati on [facility] caffeine tablet 200 mg 2021-04 07:45: 00 02-02 07:00 :00 No 200mg 200 mg, Oral, ONCE NOW, 1 dose, On Sat02/02/22 at 0245, Routine [facility] proCHLORper azine (COMPAZINE) 10 mg in NaCl 0.9% (NS) piggyback 2021-04 07:30: 00 02-02 07:18 :00 No 10mg 10 mg, IV Piggyback, ONCE NOW, 1 dose, On Sat02/02/22 at 0230, 50 mL [facility] diphenhydrA MINE (BENADRYL) injection 25 mg 2021-04 05:15: 00 02-02 04:41 :00 No 25mg 25 mg, Intravenou s, ONCE, 1 dose, On Sat02/02/22 at 0015, Routine [facility] metoclopram abisai HCl (REGLAN) injection 10 mg 2021-04 05:15: 00 02-02 04:41 :00 No 10mg 10 mg, Slow IV Push, ONCE NOW, 1 dose, On Sat02/02/22 at 0015, Routine [facility] lactated ringers IV infusion 500 mL 2021-04 05:00: 00 02-02 04:38 :38 No 500mL at 999 mL/hr, 500 mL, Intravenou s, ONCE, 1 dose, On Sat02/02/22 at 0000, Routine [facility] SUMAtriptan 50 mg tablet 2021-04 00:00: 00 Yes [id number] 50mg Take 1 tablet by mouth in the morning. [facility] magnesium oxide 400 mg (241.3 mg magnesium) tablet 2021-04 00:00: 00 Yes [id number] 400mg Take 1 tablet by mouth in the morning. [facility] SUMAtriptan 50 mg tablet 2021-04 00:00: 00 Yes [id number] 50mg Take 1 tablet by mouth in the morning. [facility] magnesium oxide 400 mg (241.3 mg magnesium) tablet 2021-04 00:00: 00 Yes [id number] 400mg Take 1 tablet by mouth in the morning. [facility] SUMAtriptan 50 mg tablet 2021-04 00:00: 00 Yes [id number] 50mg Take 1 tablet by mouth in the morning. [facility] magnesium oxide 400 mg (241.3 mg magnesium) tablet 2021-04 00:00: 00 Yes [id number] 400mg Take 1 tablet by mouth in the morning. [facility] SUMAtriptan 50 mg tablet 2021-04 00:00: 00 Yes [id number] 50mg Take 1 tablet by mouth in the morning. [facility] SUMAtriptan 50 mg tablet 2021-04 00:00: 00 Yes [id number] 50mg Take 1 tablet by mouth in the morning. [facility] SUMAtriptan 50 mg tablet 2021-04 00:00: 00 Yes [id number] 50mg Take 1 tablet by mouth in the morning. [facility] 2021-04 00:00: 00 Yes [id number] 50mg Take 1 tablet by mouth in the morning. [facility] SUMAtriptan 50 mg tablet 2021-04 00:00: 00 Yes [id number] 50mg Take 1 tablet by mouth in the morning. [facility] SUMAtriptan 50 mg tablet 2021-04 00:00: 00 Yes [id number] 50mg Take 1 tablet by mouth in the morning. [facility] SUMAtriptan 50 mg tablet 2021-04 00:00: 00 Yes [id number] 50mg Take 1 tablet by mouth in the morning. [facility] SUMAtriptan 50 mg tablet 2021-04 00:00: 00 Yes [id number] 50mg Take 1 tablet by mouth in the morning. [facility] 2021-04 00:00: 00 Yes [id number] 50mg Take 1 tablet by mouth in the morning. [facility] SUMAtriptan 50 mg tablet 2021-04 00:00: 00 Yes [id number] 50mg Take 1 tablet by mouth in the morning. [facility] SUMAtriptan 50 mg tablet 2021-04 00:00: 00 Yes [id number] 50mg Take 1 tablet by mouth in the morning. [facility] mg tablet 2022-1 0-14 00:00: 00 Yes [id number] 50mg Take 1 tablet by mouth in the morning. [facility] SUM[facility] mg tablet 2021-04 0-14 00:00: 00 Yes [id number] 50mg Take 1 tablet by mouth in the morning. [facility] SUMAtriptan 50 mg tablet 2021-04 014 00:00: 00 Yes [id number] 50mg Take 1 tablet by mouth in the morning. [facility] SUMAtriptan 50 mg tablet 2021-04 00:00: 00 Yes [id number] 50mg Take 1 tablet by mouth in the morning. [facility] SUMAtriptan 50 mg tablet 2021-04 00:00: 00 Yes [id number] 50mg Take 1 tablet by mouth in the morning. [facility] SUMAtriptan 50 mg tablet 2021-04 00:00: 00 Yes [id number] 50mg Take 1 tablet by mouth in the morning. [facility] SUMAtriptan 50 mg tablet 2021-04 00:00: 00 Yes [id number] 50mg Take 1 tablet by mouth in the morning. [facility] SUMAtriptan 50 mg tablet 2021-04 00:00: 00 Yes [id number] 50mg Take 1 tablet by mouth in the morning. [facility] SUMAtriptan 50 mg tablet 2021-04 00:00: 00 Yes [id number] 50mg Take 1 tablet by mouth in the morning. [facility] SUMAtriptan 50 mg tablet 2021-04 00:00: 00 03-28 00:00 :00 No [id number] 50mg Take 1 tablet by mouth in the morning. [facility] SUMAtriptan 50 mg tablet 2021-04 00:00: 00 03-28 00:00 :00 No [id number] 50mg Take 1 tablet by mouth in the morning. [facility] magnesium oxide 400 mg (241.3 mg magnesium) tablet 2021-04 00:00: 00 02-07 00:00 :00 No [id number] 400mg Take 1 tablet by mouth in the morning. [facility] magnesium oxide 400 mg (241.3 mg magnesium) tablet 2021-04 0-14 00:00: 00 - 00:00 :00 No [id number] 400mg Take 1 tablet by mouth in the morning. [facility] butalbital- acetaminoph en-caff 50-325-40 mg tablet 2021-04 0-12 00:00: 00 Yes [id number] 1{tbl} Take 1 tablet by mouth every 4 (four) hours as needed for Pain (scale 7-10). [facility] fluticasone propionate 50 mcg/actuati on nasal spray 2021-04 0-12 00:00: 00 Yes [id number] 2{spray } Use 2 Sprays in each nostril in the morning. [facility] cetirizine 10 mg tablet 2021-04 0-12 00:00: 00 Yes [id number] 10mg Take 1 tablet by mouth in the morning. [facility] butalbital- acetaminoph en-caff 50-325-40 mg tablet 2021-04 012 00:00: 00 Yes [id number] 1{tbl} Take 1 tablet by mouth every 4 (four) hours as needed for Pain (scale 7-10). [facility] fluticasone propionate 50 mcg/actuati on nasal spray 2021-04 0-12 00:00: 00 Yes [id number] 2{spray } Use 2 Sprays in each nostril in the morning. [facility] cetirizine 10 mg tablet 2021-04 0-12 00:00: 00 Yes [id number] 10mg Take 1 tablet by mouth in the morning. [facility] butalbital- acetaminoph en-caff 50-325-40 mg tablet 2021-04 0-12 00:00: 00 Yes [id number] 1{tbl} Take 1 tablet by mouth every 4 (four) hours as needed for Pain (scale 7-10). [facility] fluticasone propionate 50 mcg/actuati on nasal spray 2021-04 0-12 00:00: 00 Yes [id number] 2{spray } Use 2 Sprays in each nostril in the morning. [facility] cetirizine 10 mg tablet 2021-04 0-12 00:00: 00 Yes [id number] 10mg Take 1 tablet by mouth in the morning. [facility] butalbital- acetaminoph en-caff 50-325-40 mg tablet 2021-04 0-12 00:00: 00 Yes [id number] 1{tbl} Take 1 tablet by mouth every 4 (four) hours as needed for Pain (scale 7-10). [facility] fluticasone propionate 50 mcg/actuati on nasal spray 2021-04 012 00:00: 00 Yes [id number] 2{spray } Use 2 Sprays in each nostril in the morning. [facility] cetirizine 10 mg tablet 2021-04 0 00:00: 00 Yes [id number] 10mg Take 1 tablet by mouth in the morning. [facility] fluticasone propionate 50 mcg/actuati on nasal spray 2021-04 012 00:00: 00 Yes [id number] 2{spray } Use 2 Sprays in each nostril in the morning. [facility] cetirizine 10 mg tablet 2021-04 012 00:00: 00 Yes [id number] 10mg Take 1 tablet by mouth in the morning. [facility] fluticasone propionate 50 mcg/actuati on nasal spray 2021-04 012 00:00: 00 Yes [id number] 2{spray } Use 2 Sprays in each nostril in the morning. [facility] cetirizine 10 mg tablet 2021-04 012 00:00: 00 Yes [id number] 10mg Take 1 tablet by mouth in the morning. [facility] fluticasone propionate 50 mcg/actuati on nasal spray 2021-04 0-12 00:00: 00 Yes [id number] 2{spray } Use 2 Sprays in each nostril in the morning. [facility] cetirizine 10 mg tablet 2021-04 0-12 00:00: 00 Yes [id number] 10mg Take 1 tablet by mouth in the morning. [facility] fluticasone propionate 50 mcg/actuati on nasal spray 2021-04 0-12 00:00: 00 Yes [id number] 2{spray } Use 2 Sprays in each nostril in the morning. [facility] cetirizine 10 mg tablet 2021-04 012 00:00: 00 Yes [id number] 10mg Take 1 tablet by mouth in the morning. [facility] fluticasone propionate 50 mcg/actuati on nasal spray 2021-04 012 00:00: 00 Yes [id number] 2{spray } Use 2 Sprays in each nostril in the morning. [facility] cetirizine 10 mg tablet 2021-04 012 00:00: 00 Yes [id number] 10mg Take 1 tablet by mouth in the morning. [facility] fluticasone propionate 50 mcg/actuati on nasal spray 2021-04 0 00:00: 00 Yes [id number] 2{spray } Use 2 Sprays in each nostril in the morning. [facility] cetirizine 10 mg tablet 2021-04 012 00:00: 00 Yes [id number] 10mg Take 1 tablet by mouth in the morning. [facility] fluticasone propionate 50 mcg/actuati on nasal spray 2021-04 012 00:00: 00 Yes [id number] 2{spray } Use 2 Sprays in each nostril in the morning. [facility] cetirizine 10 mg tablet 2021-04 012 00:00: 00 Yes [id number] 10mg Take 1 tablet by mouth in the morning. [facility] fluticasone propionate 50 mcg/actuati on nasal spray 2021-04 012 00:00: 00 Yes [id number] 2{spray } Use 2 Sprays in each nostril in the morning. [facility] cetirizine 10 mg tablet 2021-04 0-12 00:00: 00 Yes [id number] 10mg Take 1 tablet by mouth in the morning. [facility] fluticasone propionate 50 mcg/actuati on nasal spray 2021-04 0-12 00:00: 00 Yes [id number] 2{spray } Use 2 Sprays in each nostril in the morning. [facility] cetirizine 10 mg tablet 2021-04 0-12 00:00: 00 Yes [id number] 10mg Take 1 tablet by mouth in the morning. [facility] fluticasone propionate 50 mcg/actuati on nasal spray 2021-04 0-12 00:00: 00 Yes [id number] 2{spray } Use 2 Sprays in each nostril in the morning. [facility] cetirizine 10 mg tablet 2021-04 012 00:00: 00 Yes [id number] 10mg Take 1 tablet by mouth in the morning. [facility] fluticasone propionate 50 mcg/actuati on nasal spray 2021-04 012 00:00: 00 Yes [id number] 2{spray } Use 2 Sprays in each nostril in the morning. [facility] cetirizine 10 mg tablet 2021-04 012 00:00: 00 Yes [id number] 10mg Take 1 tablet by mouth in the morning. [facility] fluticasone propionate 50 mcg/actuati on nasal spray 2021-04 012 00:00: 00 Yes [id number] 2{spray } Use 2 Sprays in each nostril in the morning. [facility] cetirizine 10 mg tablet 2021-04 0-12 00:00: 00 Yes [id number] 10mg Take 1 tablet by mouth in the morning. [facility] fluticasone propionate 50 mcg/actuati on nasal spray 2021-04 0-12 00:00: 00 Yes [id number] 2{spray } Use 2 Sprays in each nostril in the morning. [facility] cetirizine 10 mg tablet 2021-04 0-12 00:00: 00 Yes [id number] 10mg Take 1 tablet by mouth in the morning. [facility] fluticasone propionate 50 mcg/actuati on nasal spray 2021-04 012 00:00: 00 Yes [id number] 2{spray } Use 2 Sprays in each nostril in the morning. [facility] cetirizine 10 mg tablet 2021-04 0-12 00:00: 00 Yes [id number] 10mg Take 1 tablet by mouth in the morning. [facility] fluticasone propionate 50 mcg/actuati on nasal spray 2021-04 012 00:00: 00 Yes [id number] 2{spray } Use 2 Sprays in each nostril in the morning. [facility] cetirizine 10 mg tablet 2021-04 012 00:00: 00 Yes [id number] 10mg Take 1 tablet by mouth in the morning. [facility] fluticasone propionate 50 mcg/actuati on nasal spray 2021-04 0 00:00: 00 Yes [id number] 2{spray } Use 2 Sprays in each nostril in the morning. [facility] cetirizine 10 mg tablet 2021-04 012 00:00: 00 Yes [id number] 10mg Take 1 tablet by mouth in the morning. [facility] fluticasone propionate 50 mcg/actuati on nasal spray 2021-04 0 00:00: 00 Yes [id number] 2{spray } Use 2 Sprays in each nostril in the morning. [facility] cetirizine 10 mg tablet 2021-04 012 00:00: 00 Yes [id number] 10mg Take 1 tablet by mouth in the morning. [facility] fluticasone propionate 50 mcg/actuati on nasal spray 2021-04 012 00:00: 00 Yes [id number] 2{spray } Use 2 Sprays in each nostril in the morning. [facility] cetirizine 10 mg tablet 2021-04 0-12 00:00: 00 Yes [id number] 10mg Take 1 tablet by mouth in the morning. [facility] cetirizine 10 mg tablet 2021-04 0-12 00:00: 00 Yes [id number] 10mg Take 1 tablet by mouth in the morning. [facility] cetirizine 10 mg tablet 2021-04 0-12 00:00: 00 Yes [id number] 10mg Take 1 tablet by mouth in the morning. [facility] cetirizine 10 mg tablet 2021-04 0-12 00:00: 00 Yes [id number] 10mg Take 1 tablet by mouth in the morning. [facility] cetirizine 10 mg tablet 2021-04 0-12 00:00: 00 Yes [id number] 10mg Take 1 tablet by mouth in the morning. [facility] cetirizine 10 mg tablet 2021-04 0 00:00: 00 Yes [id number] 10mg Take 1 tablet by mouth in the morning. [facility] cetirizine 10 mg tablet 2021 0 00:00: 00 Yes [id number] 10mg Take 1 tablet by mouth in the morning. [facility] cetirizine 10 mg tablet 2021 0 00:00: 00 Yes [id number] 10mg Take 1 tablet by mouth in the morning. [facility] cetirizine 10 mg tablet 2021-04 0 00:00: 00 Yes [id number] 10mg Take 1 tablet by mouth in the morning. [facility] cetirizine 10 mg tablet 2021-04 0 00:00: 00 Yes [id number] 10mg Take 1 tablet by mouth in the morning. [facility] cetirizine 10 mg tablet 2021-04 012 00:00: 00 Yes [id number] 10mg Take 1 tablet by mouth in the morning. [facility] cetirizine 10 mg tablet 2021 0 00:00: 00 Yes [id number] 10mg Take 1 tablet by mouth in the morning. [facility] cetirizine 10 mg tablet 2021-04 0- 00:00: 00 Yes [id number] 10mg Take 1 tablet by mouth in the morning. [facility] cetirizine 10 mg tablet 2021-04 0-12 00:00: 00 Yes [id number] 10mg Take 1 tablet by mouth in the morning. [facility] cetirizine 10 mg tablet 2021-04 0-12 00:00: 00 Yes [id number] 10mg Take 1 tablet by mouth in the morning. [facility] cetirizine 10 mg tablet 2021-04 0-12 00:00: 00 Yes [id number] 10mg Take 1 tablet by mouth in the morning. [facility] cetirizine 10 mg tablet 2021-04 012 00:00: 00 Yes [id number] 10mg Take 1 tablet by mouth in the morning. [facility] cetirizine 10 mg tablet 2021-04 0 00:00: 00 Yes [id number] 10mg Take 1 tablet by mouth in the morning. [facility] cetirizine 10 mg tablet 2021-04 0 00:00: 00 Yes [id number] 10mg Take 1 tablet by mouth in the morning. [facility] cetirizine 10 mg tablet 2021-04 0 00:00: 00 Yes [id number] 10mg Take 1 tablet by mouth in the morning. [facility] cetirizine 10 mg tablet 2021-04 0 00:00: 00 Yes [id number] 10mg Take 1 tablet by mouth in the morning. [facility] cetirizine 10 mg tablet 2021-04 012 00:00: 00 01-21 00:00 :00 No [id number] 10mg Take 1 tablet by mouth in the morning. [facility] cetirizine 10 mg tablet 2021-04 0-12 00:00: 00 01-21 00:00 :00 No [id number] 10mg Take 1 tablet by mouth in the morning. [facility] fluticasone propionate 50 mcg/actuati on nasal spray 2021-04 0-12 00:00: 00 02-27 00:00 :00 No [id number] 2{spray } Use 2 Sprays in each nostril in the morning. [facility] fluticasone propionate 50 mcg/actuati on nasal spray 2021-04 0-12 00:00: 00 02-27 00:00 :00 No [id number] 2{spray } Use 2 Sprays in each nostril in the morning. [facility] butalbital- acetaminoph en-caff (ESGIC) 50-325-40 mg tablet 2 tablet 2021-04 20:15: 00 01-30 20:18 :00 No 2{tbl} 2 tablet, Oral, ONCE NOW, 1 dose, On Sat01/30/22 at 1515, Routine [facility] PNV no.95/nathan us fum/folic ac ( ORAL) 2021-04 0 17:37: 34 Yes Take by mouth. [facility] PNV no.95/nathan us fum/folic ac ( ORAL) 2021-04 0 17:37: 34 Yes Take by mouth. [facility] PNV no.95/nathan us fum/folic ac ( ORAL) 2021-04 17:37: 34 Yes Take by mouth. [facility] PNV no.95/nathan us fum/folic ac ( ORAL) 2021-04 0 17:37: 34 Yes Take by mouth. [facility] PNV no.95/nathan us fum/folic ac ( ORAL) 2021-04 17:37: 34 Yes Take by mouth. [facility] PNV no.95/nathan us fum/folic ac ( ORAL) 2021-04 16:58: 09 Yes Take by mouth. [facility] magnesium oxide 400 mg (241.3 mg magnesium) tablet 2021-04 00:00: 00 Yes [id number] 400mg Take 1 tablet by mouth in the morning. [facility] magnesium oxide 400 mg (241.3 mg magnesium) tablet 2021-04 00:00: 00 Yes [id number] 400mg Take 1 tablet by mouth in the morning. [facility] magnesium oxide 400 mg (241.3 mg magnesium) tablet 2021-04 00:00: 00 Yes [id number] 400mg Take 1 tablet by mouth in the morning. [facility] magnesium oxide 400 mg (241.3 mg magnesium) tablet 2021-04 0 00:00: 00 Yes [id number] 400mg Take 1 tablet by mouth in the morning. [facility] magnesium oxide 400 mg (241.3 mg magnesium) tablet 2021-04 00:00: 00 Yes [id number] 400mg Take 1 tablet by mouth in the morning. [facility] magnesium oxide 400 mg (241.3 mg magnesium) tablet 2021-04 0 00:00: 00 Yes [id number] 400mg Take 1 tablet by mouth in the morning. [facility] PNV no.95/nathan us fum/folic ac ( ORAL) 2021-04 0 00:06: 48 Yes Take by mouth. [facility] PNV no.95/nathan us fum/folic ac ( ORAL) 2021-04 0 00:06: 48 Yes Take by mouth. [facility] PNV no.95/nathan us fum/folic ac ( ORAL) 2021-04 0 00:06: 48 Yes Take by mouth. [facility] PNV no.95/nathan us fum/folic ac ( ORAL) 2021-04 010 00:06: 48 Yes Take by mouth. [facility] PNV no.95/nathan us fum/folic ac ( ORAL) 705 14:20: 54 Yes Take by mouth. [facility] PNV no.95/nathan us fum/folic ac ( ORAL) 705 14:20: 54 Yes Take by mouth. [facility] PNV no.95/nathan us fum/folic ac ( ORAL) 705 14:20: 54 Yes Take by mouth. [facility] PNV no.95/nathan us fum/folic ac ( ORAL) 705 14:20: 54 Yes Take by mouth. [facility] PNV no.95/nathan us fum/folic ac ( ORAL) 7-05 14:20: 54 Yes Take by mouth. [facility] PNV no.95/nathan us fum/folic ac ( ORAL) 10-24 14:20: 54 Yes Take by mouth. [facility] PNV no.95/nathan us fum/folic ac ( ORAL) 10-24 14:20: 54 Yes Take by mouth. [facility] PNV no.95/nathan us fum/folic ac ( ORAL) 10-24 14:20: 54 Yes Take by mouth. [facility] PNV no.95/nathan us fum/folic ac ( ORAL) 10-24 14:20: 54 Yes Take by mouth. [facility] PNV no.95/nathan us fum/folic ac ( ORAL) 10-24 14:20: 54 Yes Take by mouth. [facility] buPROPion 100 mg tablet 10-24 00:00: 00 Yes [id number] 100mg Take 1 tablet by mouth 2 (two) times daily. [facility] buPROPion 100 mg tablet 10-24 00:00: 00 Yes [id number] 100mg Take 1 tablet by mouth 2 (two) times daily. [facility] buPROPion 100 mg tablet 10-24 00:00: 00 Yes [id number] 100mg Take 1 tablet by mouth 2 (two) times daily. [facility] buPROPion 100 mg tablet 10-24 00:00: 00 Yes [id number] 100mg Take 1 tablet by mouth 2 (two) times daily. [facility] buPROPion 100 mg tablet 0 10-24 00:00: 00 Yes [id number] 100mg Take 1 tablet by mouth 2 (two) times daily. [facility] buPROPion 100 mg tablet 10-24 00:00: 00 Yes [id number] 100mg Take 1 tablet by mouth 2 (two) times daily. [facility] buPROPion 100 mg tablet 2021-0 10-24 00:00: 00 Yes [id number] 100mg Take 1 tablet by mouth 2 (two) times daily. [facility] buPROPion 100 mg tablet 2021-0 10-24 00:00: 00 Yes [id number] 100mg Take 1 tablet by mouth 2 (two) times daily. [facility] buPROPion 100 mg tablet 2021-0 10-24 00:00: 00 Yes [id number] 100mg Take 1 tablet by mouth 2 (two) times daily. [facility]-0 10-24 00:00: 00 Yes [id number] 100mg Take 1 tablet by mouth 2 (two) times daily. [facility] buPROPion 100 mg tablet 2021-0 10-24 00:00: 00 Yes [id number] 100mg Take 1 tablet by mouth 2 (two) times daily. [facility] buPROPion 100 mg tablet 2021-0 10-24 00:00: 00 Yes [id number] 100mg Take 1 tablet by mouth 2 (two) times daily. [facility] buPROPion 100 mg tablet 2021-0 10-24 00:00: 00 Yes [id number] 100mg Take 1 tablet by mouth 2 (two) times daily. [facility] buPROPion 100 mg tablet 2021-0 10-24 00:00: 00 Yes [id number] 100mg Take 1 tablet by mouth 2 (two) times daily. [facility] buPROPion 100 mg tablet 2021-0 10-24 00:00: 00 Yes [id number] 100mg Take 1 tablet by mouth 2 (two) times daily. [facility] buPROPion 100 mg tablet 2021-0 10-24 00:00: 00 Yes [id number] 100mg Take 1 tablet by mouth 2 (two) times daily. [facility] buPROPion 100 mg tablet 2021-0 05 00:00: 00 Yes [id number] 100mg Take 1 tablet by mouth 2 (two) times daily. [facility] buPROPion 100 mg tablet 2021-0 -05 00:00: 00 Yes [id number] 100mg Take 1 tablet by mouth 2 (two) times daily. [facility] buPROPion 100 mg tablet 2021-0 -05 00:00: 00 Yes [id number] 100mg Take 1 tablet by mouth 2 (two) times daily. [facility] 2021-0 05 00:00: 00 Yes [id number] 100mg Take 1 tablet by mouth 2 (two) times daily. [facility] tablet 2021-0 - 00:00: 00 Yes [id number] 100mg Take 1 tablet by mouth 2 (two) times daily. [facility] tablet 2021-0 -05 00:00: 00 Yes [id number] 100mg Take 1 tablet by mouth 2 (two) times daily. [facility] buPROPion 100 mg tablet 2021-0 10-24 00:00: 00 Yes [id number] 100mg Take 1 tablet by mouth 2 (two) times daily. [facility] buPROPion 100 mg tablet 2021-0 10-24 00:00: 00 Yes [id number] 100mg Take 1 tablet by mouth 2 (two) times daily. [facility] buPROPion 100 mg tablet 2021-0 10-24 00:00: 00 Yes [id number] 100mg Take 1 tablet by mouth 2 (two) times daily. [facility] buPROPion 100 mg tablet 0 10-24 00:00: 00 Yes [id number] 100mg Take 1 tablet by mouth 2 (two) times daily. [facility] buPROPion 100 mg tablet 0 10-24 00:00: 00 Yes [id number] 100mg Take 1 tablet by mouth 2 (two) times daily. [facility] buPROPion 100 mg tablet 2021-0 10-24 00:00: 00 Yes [id number] 100mg Take 1 tablet by mouth 2 (two) times daily. [facility] buPROPion 100 mg tablet 2021-0 05 00:00: 00 Yes [id number] 100mg Take 1 tablet by mouth 2 (two) times daily. [facility] buPROPion 100 mg tablet 2021-0 -05 00:00: 00 Yes [id number] 100mg Take 1 tablet by mouth 2 (two) times daily. [facility] buPROPion 100 mg tablet 2021-0 10-24 00:00: 00 Yes [id number] 100mg Take 1 tablet by mouth 2 (two) times daily. [facility] buPROPion 100 mg tablet 2021-0 10-24 00:00: 00 Yes [id number] 100mg Take 1 tablet by mouth 2 (two) times daily. [facility] 2021-0 10-24 00:00: 00 Yes [id number] 100mg Take 1 tablet by mouth 2 (two) times daily. [facility] 2021-0 10-24 00:00: 00 Yes [id number] 100mg Take 1 tablet by mouth 2 (two) times daily. [facility] buPROPion 100 mg tablet 2021-0 10-24 00:00: 00 Yes [id number] 100mg Take 1 tablet by mouth 2 (two) times daily. [facility] buPROPion 100 mg tablet 2021-0 10-24 00:00: 00 Yes [id number] 100mg Take 1 tablet by mouth 2 (two) times daily. [facility] buPROPion 100 mg tablet 2021-0 10-24 00:00: 00 Yes [id number] 100mg Take 1 tablet by mouth 2 (two) times daily. [facility] buPROPion 100 mg tablet 2021-0 10-24 00:00: 00 Yes [id number] 100mg Take 1 tablet by mouth 2 (two) times daily. [facility] buPROPion 100 mg tablet 2021-0 10-24 00:00: 00 Yes [id number] 100mg Take 1 tablet by mouth 2 (two) times daily. [facility] buPROPion 100 mg tablet 2021-0 10-24 00:00: 00 Yes [id number] 100mg Take 1 tablet by mouth 2 (two) times daily. [facility] buPROPion 100 mg tablet 2021-0 10-24 00:00: 00 Yes [id number] 100mg Take 1 tablet by mouth 2 (two) times daily. [facility] 2021-0 05 00:00: 00 Yes [id number] 100mg Take 1 tablet by mouth 2 (two) times daily. [facility] buPROPion 100 mg tablet 2021-0 -05 00:00: 00 Yes [id number] 100mg Take 1 tablet by mouth 2 (two) times daily. [facility] buPROPion 100 mg tablet 2021-0 7-05 00:00: 00 Yes [id number] 100mg Take 1 tablet by mouth 2 (two) times daily. [facility] buPROPion 100 mg tablet 2021-0 -05 00:00: 00 Yes [id number] 100mg Take 1 tablet by mouth 2 (two) times daily. [facility] buPROPion 100 mg tablet 2021-0 -05 00:00: 00 Yes [id number] 100mg Take 1 tablet by mouth 2 (two) times daily. [facility] buPROPion 100 mg tablet 2021-0 - 00:00: 00 Yes [id number] 100mg Take 1 tablet by mouth 2 (two) times daily. [facility] buPROPion 100 mg tablet 2021-0 05 00:00: 00 Yes [id number] 100mg Take 1 tablet by mouth 2 (two) times daily. [facility] buPROPion 100 mg tablet 2021-0 05 00:00: 00 Yes [id number] 100mg Take 1 tablet by mouth 2 (two) times daily. [facility] buPROPion 100 mg tablet 2021-0 10-24 00:00: 00 Yes [id number] 100mg Take 1 tablet by mouth 2 (two) times daily. [facility] buPROPion 100 mg tablet 2021-0 05 00:00: 00 Yes [id number] 100mg Take 1 tablet by mouth 2 (two) times daily. [facility] buPROPion 100 mg tablet 2021-0 -05 00:00: 00 Yes [id number] 100mg Take 1 tablet by mouth 2 (two) times daily. [facility] buPROPion 100 mg tablet 2021-0 7-05 00:00: 00 Yes [id number] 100mg Take 1 tablet by mouth 2 (two) times daily. [facility] buPROPion 100 mg tablet 2-0 7-05 00:00: 00 Yes [id number] 100mg Take 1 tablet by mouth 2 (two) times daily. [facility] buPROPion 100 mg tablet 2021-0 7-05 00:00: 00 Yes [id number] 100mg Take 1 tablet by mouth 2 (two) times daily. [facility] buPROPion 100 mg tablet 2021-0 7-05 00:00: 00 Yes [id number] 100mg Take 1 tablet by mouth 2 (two) times daily. [facility] buPROPion 100 mg tablet 2021-0 7-05 00:00: 00 Yes [id number] 100mg Take 1 tablet by mouth 2 (two) times daily. [facility] buPROPion 100 mg tablet 2021-0 7-05 00:00: 00 Yes [id number] 100mg Take 1 tablet by mouth 2 (two) times daily. [facility] buPROPion 100 mg tablet 2021-0 7-05 00:00: 00 Yes [id number] 100mg Take 1 tablet by mouth 2 (two) times daily. [facility] buPROPion 100 mg tablet 2021-0 7-05 00:00: 00 Yes [id number] 100mg Take 1 tablet by mouth 2 (two) times daily. [facility] buPROPion 100 mg tablet 2021-0 7-05 00:00: 00 01-21 00:00 :00 No [id number] 100mg Take 1 tablet by mouth 2 (two) times daily. [facility] buPROPion 100 mg tablet 2021-0 7-05 00:00: 00 01-21 00:00 :00 No [id number] 100mg Take 1 tablet by mouth 2 (two) times daily. [facility] metoclopram abisai HCl 10 mg tablet 2021-0 4-12 00:00: 00 Yes [id number] 10mg Take 1 tablet by mouth every 6 (six) hours as needed for Nausea and Vomiting (N/V). [facility] metoclopram abisai HCl 10 mg tablet 2021-0 4-12 00:00: 00 Yes [id number] 10mg Take 1 tablet by mouth every 6 (six) hours as needed for Nausea and Vomiting (N/V). [facility] metoclopram abisai HCl 10 mg tablet 2022-0 4-12 00:00: 00 Yes [id number] 10mg Take 1 tablet by mouth every 6 (six) hours as needed for Nausea and Vomiting (N/V). [facility] metoclopram abisai HCl 10 mg tablet 2022-0 4-12 00:00: 00 Yes [id number] 10mg Take 1 tablet by mouth every 6 (six) hours as needed for Nausea and Vomiting (N/V). [facility] metoclopram abisai HCl 10 mg tablet 2-0 4-12 00:00: 00 Yes [id number] 10mg Take 1 tablet by mouth every 6 (six) hours as needed for Nausea and Vomiting (N/V). [facility] metoclopram abisai HCl 10 mg tablet 2-0 4-12 00:00: 00 Yes [id number] 10mg Take 1 tablet by mouth every 6 (six) hours as needed for Nausea and Vomiting (N/V). [facility] metoclopram abisai HCl 10 mg tablet 2022-0 4-12 00:00: 00 Yes [id number] 10mg Take 1 tablet by mouth every 6 (six) hours as needed for Nausea and Vomiting (N/V). [facility] metoclopram abisai HCl 10 mg tablet 2-0 4-12 00:00: 00 Yes [id number] 10mg Take 1 tablet by mouth every 6 (six) hours as needed for Nausea and Vomiting (N/V). [facility] metoclopram abisai HCl 10 mg tablet 2022-0 4-12 00:00: 00 Yes [id number] 10mg Take 1 tablet by mouth every 6 (six) hours as needed for Nausea and Vomiting (N/V). [facility] metoclopram abisai HCl 10 mg tablet 2-0 4-12 00:00: 00 Yes [id number] 10mg Take 1 tablet by mouth every 6 (six) hours as needed for Nausea and Vomiting (N/V). [facility] metoclopram abisai HCl 10 mg tablet 2022-0 4-12 00:00: 00 Yes [id number] 10mg Take 1 tablet by mouth every 6 (six) hours as needed for Nausea and Vomiting (N/V). [facility] metoclopram abisai HCl 10 mg tablet 2022-0 4-12 00:00: 00 Yes [id number] 10mg Take 1 tablet by mouth every 6 (six) hours as needed for Nausea and Vomiting (N/V). [facility] metoclopram abisai HCl 10 mg tablet 2022-0 4-12 00:00: 00 Yes [id number] 10mg Take 1 tablet by mouth every 6 (six) hours as needed for Nausea and Vomiting (N/V). [facility] metoclopram abisai HCl 10 mg tablet 2022-0 4-12 00:00: 00 Yes [id number] 10mg Take 1 tablet by mouth every 6 (six) hours as needed for Nausea and Vomiting (N/V). [facility] metoclopram abisai HCl 10 mg tablet 2022-0 4-12 00:00: 00 Yes [id number] 10mg Take 1 tablet by mouth every 6 (six) hours as needed for Nausea and Vomiting (N/V). [facility] metoclopram abisai HCl 10 mg tablet 2022-0 4-12 00:00: 00 Yes [id number] 10mg Take 1 tablet by mouth every 6 (six) hours as needed for Nausea and Vomiting (N/V). [facility] metoclopram abisai HCl 10 mg tablet 2022-0 4-12 00:00: 00 Yes [id number] 10mg Take 1 tablet by mouth every 6 (six) hours as needed for Nausea and Vomiting (N/V). [facility] metoclopram abisai HCl 10 mg tablet 2022-0 4-12 00:00: 00 Yes [id number] 10mg Take 1 tablet by mouth every 6 (six) hours as needed for Nausea and Vomiting (N/V). [facility] metoclopram abisai HCl 10 mg tablet 2022-0 4-12 00:00: 00 Yes [id number] 10mg Take 1 tablet by mouth every 6 (six) hours as needed for Nausea and Vomiting (N/V). [facility] metoclopram abisai HCl 10 mg tablet 2022-0 4-12 00:00: 00 Yes [id number] 10mg Take 1 tablet by mouth every 6 (six) hours as needed for Nausea and Vomiting (N/V). [facility] metoclopram abisai HCl 10 mg tablet 2-0 4-12 00:00: 00 Yes [id number] 10mg Take 1 tablet by mouth every 6 (six) hours as needed for Nausea and Vomiting (N/V). [facility] metoclopram abisai HCl 10 mg tablet 2022-0 4-12 00:00: 00 Yes [id number] 10mg Take 1 tablet by mouth every 6 (six) hours as needed for Nausea and Vomiting (N/V). [facility] metoclopram abisai HCl 10 mg tablet 2-0 4-12 00:00: 00 Yes [id number] 10mg Take 1 tablet by mouth every 6 (six) hours as needed for Nausea and Vomiting (N/V). [facility] metoclopram abisai HCl 10 mg tablet 2-0 4-12 00:00: 00 Yes [id number] 10mg Take 1 tablet by mouth every 6 (six) hours as needed for Nausea and Vomiting (N/V). [facility] metoclopram abisai HCl 10 mg tablet 2-0 4-12 00:00: 00 Yes [id number] 10mg Take 1 tablet by mouth every 6 (six) hours as needed for Nausea and Vomiting (N/V). [facility] metoclopram abisai HCl 10 mg tablet 2022-0 4-12 00:00: 00 Yes [id number] 10mg Take 1 tablet by mouth every 6 (six) hours as needed for Nausea and Vomiting (N/V). [facility] metoclopram abisai HCl 10 mg tablet 2022-0 4-12 00:00: 00 Yes [id number] 10mg Take 1 tablet by mouth every 6 (six) hours as needed for Nausea and Vomiting (N/V). [facility] metoclopram abisai HCl 10 mg tablet 2022-0 4-12 00:00: 00 Yes [id number] 10mg Take 1 tablet by mouth every 6 (six) hours as needed for Nausea and Vomiting (N/V). [facility] metoclopram abisai HCl 10 mg tablet 2022-0 4-12 00:00: 00 Yes [id number] 10mg Take 1 tablet by mouth every 6 (six) hours as needed for Nausea and Vomiting (N/V). [facility] metoclopram abisai HCl 10 mg tablet 2022-0 4-12 00:00: 00 Yes [id number] 10mg Take 1 tablet by mouth every 6 (six) hours as needed for Nausea and Vomiting (N/V). [facility] metoclopram abisai HCl 10 mg tablet 2022-0 4-12 00:00: 00 Yes [id number] 10mg Take 1 tablet by mouth every 6 (six) hours as needed for Nausea and Vomiting (N/V). [facility] metoclopram abisai HCl 10 mg tablet 2-0 4-12 00:00: 00 Yes [id number] 10mg Take 1 tablet by mouth every 6 (six) hours as needed for Nausea and Vomiting (N/V). [facility] metoclopram abisai HCl 10 mg tablet 2022-0 4-12 00:00: 00 Yes [id number] 10mg Take 1 tablet by mouth every 6 (six) hours as needed for Nausea and Vomiting (N/V). [facility] metoclopram abisai HCl 10 mg tablet 2-0 4-12 00:00: 00 Yes [id number] 10mg Take 1 tablet by mouth every 6 (six) hours as needed for Nausea and Vomiting (N/V). [facility] metoclopram abisai HCl 10 mg tablet 2022-0 4-12 00:00: 00 Yes [id number] 10mg Take 1 tablet by mouth every 6 (six) hours as needed for Nausea and Vomiting (N/V). [facility] metoclopram abisai HCl 10 mg tablet 2022-0 4-12 00:00: 00 Yes [id number] 10mg Take 1 tablet by mouth every 6 (six) hours as needed for Nausea and Vomiting (N/V). [facility] metoclopram abisai HCl 10 mg tablet 2022-0 4-12 00:00: 00 Yes [id number] 10mg Take 1 tablet by mouth every 6 (six) hours as needed for Nausea and Vomiting (N/V). [facility] metoclopram abisai HCl 10 mg tablet 2022-0 4-12 00:00: 00 Yes [id number] 10mg Take 1 tablet by mouth every 6 (six) hours as needed for Nausea and Vomiting (N/V). [facility] metoclopram abisai HCl 10 mg tablet 2022-0 4-12 00:00: 00 Yes [id number] 10mg Take 1 tablet by mouth every 6 (six) hours as needed for Nausea and Vomiting (N/V). [facility] metoclopram abisai HCl 10 mg tablet 2022-0 4-12 00:00: 00 Yes [id number] 10mg Take 1 tablet by mouth every 6 (six) hours as needed for Nausea and Vomiting (N/V). [facility] metoclopram abisai HCl 10 mg tablet 2-0 4-12 00:00: 00 Yes [id number] 10mg Take 1 tablet by mouth every 6 (six) hours as needed for Nausea and Vomiting (N/V). [facility] metoclopram abisai HCl 10 mg tablet 2022-0 4-12 00:00: 00 Yes [id number] 10mg Take 1 tablet by mouth every 6 (six) hours as needed for Nausea and Vomiting (N/V). [facility] metoclopram abisai HCl 10 mg tablet 2-0 4-12 00:00: 00 Yes [id number] 10mg Take 1 tablet by mouth every 6 (six) hours as needed for Nausea and Vomiting (N/V). [facility] metoclopram abisai HCl 10 mg tablet 2022-0 4-12 00:00: 00 Yes [id number] 10mg Take 1 tablet by mouth every 6 (six) hours as needed for Nausea and Vomiting (N/V). [facility] metoclopram abisai HCl 10 mg tablet 2022-0 4-12 00:00: 00 Yes [id number] 10mg Take 1 tablet by mouth every 6 (six) hours as needed for Nausea and Vomiting (N/V). [facility] metoclopram abisai HCl 10 mg tablet 2022-0 4-12 00:00: 00 Yes [id number] 10mg Take 1 tablet by mouth every 6 (six) hours as needed for Nausea and Vomiting (N/V). [facility] metoclopram abisai HCl 10 mg tablet 2021-0 4-12 00:00: 00 Yes [id number] 10mg Take 1 tablet by mouth every 6 (six) hours as needed for Nausea and Vomiting (N/V). [facility] metoclopram abisai HCl 10 mg tablet 2021-0 4-12 00:00: 00 Yes [id number] 10mg Take 1 tablet by mouth every 6 (six) hours as needed for Nausea and Vomiting (N/V). [facility] metoclopram abisai HCl 10 mg tablet 2021-0 4-12 00:00: 00 02-27 00:00 :00 No [id number] 10mg Take 1 tablet by mouth every 6 (six) hours as needed for Nausea and Vomiting (N/V). [facility] metoclopram abisai HCl 10 mg tablet 0 4-12 00:00: 00 02-27 00:00 :00 No [id number] 10mg Take 1 tablet by mouth every 6 (six) hours as needed for Nausea and Vomiting (N/V). [facility] metoclopram abisai HCl 10 mg tablet 0 4-12 00:00: 00 02-27 00:00 :00 No [id number] 10mg Take 1 tablet by mouth every 6 (six) hours as needed for Nausea and Vomiting (N/V). [facility] metoclopram abisai HCl 10 mg tablet 0 4-12 00:00: 00 02-27 00:00 :00 No [id number] 10mg Take 1 tablet by mouth every 6 (six) hours as needed for Nausea and Vomiting (N/V). [facility] iohexol (OMNIPAQUE 350 BULK-100 mL) injection 100 mL 01-15 15:47: 00 01-15 16:00 :00 No [id number] 100mL 100 mL, Intravenou s, ONCE, 1 dose, On 01/15/21 at 1100, Routine [facility] gadoteridol (PROHANCE-2 0 mL) injection 19.32 mL 01-15 01:51: 00 01-15 02:00 :00 No [id number] .2mL/kg 19.32 mL (0.2 mL/kg ?96.6 kg), Intravenou s, ONCE, 1 dose, On Sat01/14/21 at 2100, Routine [facility] amitriptyli ne 25 mg tablet 01-15 00:00: 00 02-15 04:59 :00 No [id number] 25mg Take 1 tablet by mouth at bedtime for 30 days. [facility] amitriptyli ne 25 mg tablet 01-15 00:00: 00 02-15 04:59 :00 No [id number] 25mg Take 1 tablet by mouth at bedtime for 30 days. [facility] lidocaine 1% (PF) (XYLOCAINE) injection 01-13 20:50: 37 01-13 20:50 :37 No PRN, Starting on Sat01/13/21 at 1550, Until Sat01/13/21 at 1550, Routine [facility] LORazepam (ATIVAN) tablet 01-13 20:30: 00 01-13 20:30 :00 No Oral, PRN, Starting on Sat01/13/21 at 1530, Until Sat01/13/21 at 1530, Routine [facility] LORazepam (ATIVAN) tablet 1 mg 01-13 18:44: 14 Yes 1mg 1 mg, Oral, PRN - SEE INSTRUCTIO NS, 2 doses, Starting on Sat01/13/21 at 1344, Until Discontinu ed, Routine, Anxiety, to be given prior to LP under IR if needed [facility] magnesium oxide (MAG-OX 400) tablet 400 mg 01-13 14:00: 00 Yes 400mg 400 mg, Oral, DAILY, First dose on Sat01/13/21 at 0900, Until Discontinu ed, Routine [facility] pantoprazol e (PROTONIX) EC tablet 40 mg 01-13 14:00: 00 Yes 40mg 40 mg, Oral, DAILY, First dose on Sat01/13/21 at 0900, Until Discontinu ed, Routine [facility] heparin (porcine) injection 5,000 Units 01-13 13:00: 00 Yes 5000U 5,000 Units, Subcutaneo us, Q12H, First dose on Sat01/13/21 at 0800, Until Discontinu ed, Routine [facility] ondansetron (ZOFRAN (PF)) injection 4 mg 01-13 06:25: 13 Yes 4mg 4 mg, Slow IV Push, Q6HPRN, Starting on Sat01/13/21 at 0125, Until Discontinu ed, Routine, nausea [facility] NaCl 0.9% (NS) IV infusion 1,000 mL 01-13 05:45: 00 Yes 1000mL at 50 mL/hr, IV Infusion, CONTINUOUS , Starting on Sat01/13/21 at 0045, Until Discontinu ed, Routine [facility] acetaminoph en (TYLENOL) tablet 650 mg 01-13 05:32: 37 Yes 650mg 650 mg, Oral, Q6HPRN, Starting on Sat01/13/21 at 0032, Until Discontinu ed, Routine, Pain (scale 4-6) [facility] docusate (COLACE) capsule 100 mg 01-13 05:32: 37 Yes 100mg 100 mg, Oral, QDAILYPRN, Starting on Sat01/13/21 at 0032, Until Discontinu ed, Routine, Constipati on [facility] magnesium oxide 400 mg (241.3 mg magnesium) tablet 01-12 00:00: 00 Yes [id number] 400mg Take 1 tablet by mouth daily. [facility] magnesium oxide 400 mg (241.3 mg magnesium) tablet 01-12 00:00: 00 Yes [id number] 400mg Take 1 tablet by mouth daily. [facility] magnesium oxide 400 mg (241.3 mg magnesium) tablet 01-12 00:00: 00 Yes [id number] 400mg Take 1 tablet by mouth daily. [facility] magnesium oxide 400 mg (241.3 mg magnesium) tablet 01-12 00:00: 00 Yes [id number] 400mg Take 1 tablet by mouth daily. [facility] magnesium oxide 400 mg (241.3 mg magnesium) tablet 01-12 00:00: 00 Yes [id number] 400mg Take 1 tablet by mouth daily. [facility] magnesium oxide 400 mg (241.3 mg magnesium) tablet 01-12 00:00: 00 Yes [id number] 400mg Take 1 tablet by mouth daily. [facility] magnesium oxide 400 mg (241.3 mg magnesium) tablet 01-12 00:00: 00 Yes [id number] 400mg Take 1 tablet by mouth daily. [facility] magnesium oxide 400 mg (241.3 mg magnesium) tablet 01-12 00:00: 00 Yes [id number] 400mg Take 1 tablet by mouth daily. [facility] magnesium oxide 400 mg (241.3 mg magnesium) tablet 01-12 00:00: 00 Yes [id number] 400mg Take 1 tablet by mouth daily. [facility] magnesium oxide 400 mg (241.3 mg magnesium) tablet 01-12 00:00: 00 Yes [id number] 400mg Take 1 tablet by mouth daily. [facility] magnesium oxide 400 mg (241.3 mg magnesium) tablet 01-12 00:00: 00 Yes [id number] 400mg Take 1 tablet by mouth daily. [facility] magnesium oxide 400 mg (241.3 mg magnesium) tablet 01-12 00:00: 00 Yes [id number] 400mg Take 1 tablet by mouth daily. [facility] magnesium oxide 400 mg (241.3 mg magnesium) tablet 01-12 00:00: 00 Yes [id number] 400mg Take 1 tablet by mouth daily. [facility] magnesium oxide 400 mg (241.3 mg magnesium) tablet 01-12 00:00: 00 08-01 00:00 :00 No [id number] 400mg Take 1 tablet by mouth daily. [facility] scopolamine transdermal 1 mg over 3 days patch 11-22 00:00: 00 Yes [id number] 1.5mg Apply 1 Patch to area(s) every 72 (seventy-t wo) hours. [facility] scopolamine transdermal 1 mg over 3 days patch 11-22 00:00: 00 01-15 00:00 :00 No [id number] 1.5mg Apply 1 Patch to area(s) every 72 (seventy-t wo) hours. [facility] scopolamine transdermal 1 mg over 3 days patch 11-22 00:00: 00 01-15 00:00 :00 No [id number] 1.5mg Apply 1 Patch to area(s) every 72 (seventy-t wo) hours. [facility] amoxicillin 500 mg capsule 11-03 00:00: 00 Yes TAKE 1 CAPSULE BY MOUTH EVERY 8 HOURS DIRECTED FOR 10 DAYS [facility] amoxicillin 500 mg capsule 11-03 00:00: 00 01-15 00:00 :00 No TAKE 1 CAPSULE BY MOUTH EVERY 8 HOURS DIRECTED FOR 10 DAYS [facility] amoxicillin 500 mg capsule 11-03 00:00: 00 01-15 00:00 :00 No TAKE 1 CAPSULE BY MOUTH EVERY 8 HOURS DIRECTED FOR 10 DAYS [facility] cefUROXime 500 mg tablet 4-19 00:00: 00 10-25 00:00 :00 No 500mg Take 500 mg by mouth 2 (two) times daily. [facility] norelgestro min-ethinyl estradiol (XULANE) 150-35 mcg/24 hr patch 6-04 00:00: 00 10-25 00:00 :00 No [id number] 1{patch } Apply 1 Patch to skin weekly. [facility] vitamin w/FA tablet 08-27 00:00: 00 10-25 00:00 :00 No [id number] 1{tbl} Take 1 tablet by mouth daily. [facility] docusate calcium 240 mg capsule 08-27 00:00: 00 10-25 00:00 :00 No [id number] 240mg Take 1 capsule by mouth once daily as needed for Constipati on. [facility] ferrous sulfate 325 mg (65 mg iron) tablet 08-27 00:00: 00 10-25 00:00 :00 No [id number] 325mg Take 1 tablet by mouth 2 (two) times daily. [facility] ibuprofen 600 mg tablet 08-27 00:00: 00 10-25 00:00 :00 No [id number] 600mg Take 1 tablet by mouth every 6 (six) hours as needed (Pain). Take with food or milk. [facility] Immunizations Ordered Immunization Name Filled Immunization Name Date Status Comments Source Influenza Virus Vaccine Quad IM, Preserv and ABX Free 6 MO-64 YRS 2022-01-17 00:00:00 Completed [facility] TD[facility] 2022-01-17 00:00:00 Completed [facility] Influenza Virus Vaccine Quad IM, Preserv and ABX Free 6 MO-64 YRS 2022-01-17 00:00:00 Completed [facility] TDAP 2022-01-17 00:00:00 Completed [facility] Influenza Virus Vaccine Quad IM, Preserv and ABX Free 6 MO-64 YRS 2022-01-17 00:00:00 Completed [facility] TDAP 2022-01-17 00:00:00 Completed [facility] Influenza Virus Vaccine Quad IM, Preserv and ABX Free 6 MO-64 YRS 2022-01-17 00:00:00 Completed [facility] TDAP 2022-01-17 00:00:00 Completed [facility] Influenza Virus Vaccine Quad IM, Preserv and ABX Free 6 MO-64 YRS 2022-01-17 00:00:00 Completed [facility] TDAP 2022-01-17 00:00:00 Completed [facility] Influenza Virus Vaccine Quad IM, Preserv and ABX Free 6 MO-64 YRS 2022-01-17 00:00:00 Completed [facility] TDAP 2022-01-17 00:00:00 Completed [facility] Influenza Virus Vaccine Quad IM, Preserv and ABX Free 6 MO-64 YRS 2022-01-17 00:00:00 Completed [facility] TDAP 2022-01-17 00:00:00 Completed [facility] Influenza Virus Vaccine Quad IM, Preserv and ABX Free 6 MO-64 YRS 2022-01-17 00:00:00 Completed [facility] TDAP 2022-01-17 00:00:00 Completed [facility] Influenza Virus Vaccine Quad IM, Preserv and ABX Free 6 MO-64 YRS 2022-01-17 00:00:00 Completed [facility] TDAP 2022-01-17 00:00:00 Completed [facility] Influenza Virus Vaccine Quad IM, Preserv and ABX Free 6 MO-64 YRS 2022-01-17 00:00:00 Completed [facility] TDAP 2022-01-17 00:00:00 Completed [facility] Influenza Virus Vaccine Quad IM, Preserv and ABX Free 6 MO-64 YRS 2022-01-17 00:00:00 Completed [facility] TDAP 2022-01-17 00:00:00 Completed [facility] Influenza Virus Vaccine Quad IM, Preserv and ABX Free 6 MO-64 YRS 2022-01-17 00:00:00 Completed [facility] TDAP 2022-01-17 00:00:00 Completed [facility] Influenza Virus Vaccine Quad IM, Preserv and ABX Free 6 MO-64 YRS 2022-01-17 00:00:00 Completed [facility] TDAP 2022-01-17 00:00:00 Completed [facility] Influenza Virus Vaccine Quad IM, Preserv and ABX Free 6 MO-64 YRS 2022-01-17 00:00:00 Completed [facility] TDAP 2022-01-17 00:00:00 Completed [facility] Influenza Virus Vaccine Quad IM, Preserv and ABX Free 6 MO-64 YRS 2022-01-17 00:00:00 Completed [facility] TDAP 2022-01-17 00:00:00 Completed [facility] Influenza Virus Vaccine Quad IM, Preserv and ABX Free 6 MO-64 YRS 2022-01-17 00:00:00 Completed [facility] TDAP 2022-01-17 00:00:00 Completed [facility] Influenza Virus Vaccine Quad IM, Preserv and ABX Free 6 MO-64 YRS 2022-01-17 00:00:00 Completed [facility] TDAP 2022-01-17 00:00:00 Completed [facility] Influenza Virus Vaccine Quad IM, Preserv and ABX Free 6 MO-64 YRS 2022-01-17 00:00:00 Completed [facility] TDAP 2022-01-17 00:00:00 Completed [facility] Influenza Virus Vaccine Quad IM, Preserv and ABX Free 6 MO-64 YRS 2022-01-17 00:00:00 Completed [facility] TDAP 2022-01-17 00:00:00 Completed [facility] Influenza Virus Vaccine Quad IM, Preserv and ABX Free 6 MO-64 YRS 2022-01-17 00:00:00 Completed [facility] TDAP 2022-01-17 00:00:00 Completed [facility] Influenza Virus Vaccine Quad IM, Preserv and ABX Free 6 MO-64 YRS 2022-01-17 00:00:00 Completed [facility] TDAP 2022-01-17 00:00:00 Completed [facility] Influenza Virus Vaccine Quad IM, Preserv and ABX Free 6 MO-64 YRS 2022-01-17 00:00:00 Completed [facility] TD[facility] 2022-01-17 00:00:00 Completed [facility] Influenza Virus Vaccine Quad IM, Preserv and ABX Free 6 MO-64 YRS 2022-01-17 00:00:00 Completed [facility] TDAP 2022-01-17 00:00:00 Completed [facility] Influenza Virus Vaccine Quad IM, Preserv and ABX Free 6 MO-64 YRS 2022-01-17 00:00:00 Completed [facility] TD[facility] 2022-01-17 00:00:00 Completed [facility] Influenza Virus Vaccine Quad IM, Preserv and ABX Free 6 MO-64 YRS 2022-01-17 00:00:00 Completed [facility] TDAP 2022-01-17 00:00:00 Completed [facility] Influenza Virus Vaccine Quad IM, Preserv and ABX Free 6 MO-64 YRS 2022-01-17 00:00:00 Completed [facility] TDAP 2022-01-17 00:00:00 Completed [facility] Influenza Virus Vaccine Quad IM, Preserv and ABX Free 6 MO-64 YRS 2022-01-17 00:00:00 Completed [facility] TDAP 2022-01-17 00:00:00 Completed [facility] Influenza Virus Vaccine Quad IM, Preserv and ABX Free 6 MO-64 YRS 2022-01-17 00:00:00 Completed [facility] TD[facility] 2022-01-17 00:00:00 Completed [facility] Influenza Virus Vaccine Quad IM, Preserv and ABX Free 6 MO-64 YRS 2022-01-17 00:00:00 Completed [facility] TD[facility] 2022-01-17 00:00:00 Completed [facility] Influenza Virus Vaccine Quad IM, Preserv and ABX Free 6 MO-64 YRS 2022-01-17 00:00:00 Completed [facility] TD[facility] 2022-01-17 00:00:00 Completed [facility] Influenza Virus Vaccine Quad IM, Preserv and ABX Free 6 MO-64 YRS 2022-01-17 00:00:00 Completed [facility] TDAP 2022-01-17 00:00:00 Completed [facility] Influenza Virus Vaccine Quad IM, Preserv and ABX Free 6 MO-64 YRS 2022-01-17 00:00:00 Completed [facility] TDAP 2022-01-17 00:00:00 Completed [facility] Influenza Virus Vaccine Quad IM, Preserv and ABX Free 6 MO-64 YRS 2022-01-17 00:00:00 Completed [facility] TD[facility] 2022-01-17 00:00:00 Completed [facility] Influenza Virus Vaccine Quad IM, Preserv and ABX Free 6 MO-64 YRS 2022-01-17 00:00:00 Completed [facility] TD[facility] 2022-01-17 00:00:00 Completed [facility] Influenza Virus Vaccine Quad IM, Preserv and ABX Free 6 MO-64 YRS 2022-01-17 00:00:00 Completed [facility] TD[facility] 2022-01-17 00:00:00 Completed [facility] Influenza Virus Vaccine Quad IM, Preserv and ABX Free 6 MO-64 YRS 2022-01-17 00:00:00 Completed [facility] TD[facility] 2022-01-17 00:00:00 Completed [facility] Influenza Virus Vaccine Quad IM, Preserv and ABX Free 6 MO-64 YRS 2022-01-17 00:00:00 Completed [facility] TDAP 2022-01-17 00:00:00 Completed [facility] Influenza Virus Vaccine Quad IM, Preserv and ABX Free 6 MO-64 YRS 2022-01-17 00:00:00 Completed [facility] TD[facility] 2022-01-17 00:00:00 Completed [facility] Influenza Virus Vaccine Quad IM, Preserv and ABX Free 6 MO-64 YRS 2022-01-17 00:00:00 Completed [facility] TDAP 2022-01-17 00:00:00 Completed [facility] Influenza Virus Vaccine Quad IM, Preserv and ABX Free 6 MO-64 YRS 2022-01-17 00:00:00 Completed [facility] TDAP 2022-01-17 00:00:00 Completed [facility] Influenza Virus Vaccine Quad IM, Preserv and ABX Free 6 MO-64 YRS 2022-01-17 00:00:00 Completed [facility] TDAP 2022-01-17 00:00:00 Completed [facility] Influenza Virus Vaccine Quad IM, Preserv and ABX Free 6 MO-64 YRS 2022-01-17 00:00:00 Completed [facility] TDAP 2022-01-17 00:00:00 Completed [facility] Influenza Virus Vaccine Quad IM, Preserv and ABX Free 6 MO-64 YRS 2022-01-17 00:00:00 Completed [facility] TDAP 2022-01-17 00:00:00 Completed [facility] Influenza Virus Vaccine Quad IM, Preserv and ABX Free 6 MO-64 YRS 2022-01-17 00:00:00 Completed [facility] TDAP 2022-01-17 00:00:00 Completed [facility] Influenza Virus Vaccine Quad IM, Preserv and ABX Free 6 MO-64 YRS 2022-01-17 00:00:00 Completed [facility] TDAP 2022-01-17 00:00:00 Completed [facility] Influenza Virus Vaccine Quad IM, Preserv and ABX Free 6 MO-64 YRS 2022-01-17 00:00:00 Completed [facility] TDAP 2022-01-17 00:00:00 Completed [facility] Influenza Virus Vaccine Quad IM, Preserv and ABX Free 6 MO-64 YRS 2022-01-17 00:00:00 Completed [facility] TDAP 2022-01-17 00:00:00 Completed [facility] Influenza Virus Vaccine Quad IM, Preserv and ABX Free 6 MO-64 YRS 2022-01-17 00:00:00 Completed [facility] TDAP 2022-01-17 00:00:00 Completed [facility] Influenza Virus Vaccine Quad IM, Preserv and ABX Free 6 MO-64 YRS 2022-01-17 00:00:00 Completed [facility] TDAP 2022-01-17 00:00:00 Completed [facility] Influenza Virus Vaccine Quad IM, Preserv and ABX Free 6 MO-64 YRS 2022-01-17 00:00:00 Completed [facility] TDAP 2022-01-17 00:00:00 Completed [facility] Influenza Virus Vaccine Quad IM, Preserv and ABX Free 6 MO-64 YRS 2022-01-17 00:00:00 Completed [facility] TDAP 2022-01-17 00:00:00 Completed [facility] Influenza Virus Vaccine Quad IM, Preserv and ABX Free 6 MO-64 YRS 2022-01-17 00:00:00 Completed [facility] TDAP 2022-01-17 00:00:00 Completed [facility] Influenza Virus Vaccine Quad IM, Preserv and ABX Free 6 MO-64 YRS 2022-01-17 00:00:00 Completed [facility] TDAP 2022-01-17 00:00:00 Completed [facility] Influenza Virus Vaccine Quad IM, Preserv and ABX Free 6 MO-64 YRS 2021-07-19 00:00:00 Completed [facility] Influenza Virus Vaccine Quad IM, Preserv and ABX Free 6 MO-64 YRS 2021-07-19 00:00:00 Completed [facility] Influenza Virus Vaccine Quad IM, Preserv and ABX Free 6 MO-64 YRS 2021-07-19 00:00:00 Completed [facility] Influenza Virus Vaccine Quad IM, Preserv and ABX Free 6 MO-64 YRS 2021-07-19 00:00:00 Completed [facility] Influenza Virus Vaccine Quad IM, Preserv and ABX Free 6 MO-64 YRS 2021-07-19 00:00:00 Completed [facility] Influenza Virus Vaccine Quad IM, Preserv and ABX Free 6 MO-64 YRS 2021-07-19 00:00:00 Completed [facility] Influenza Virus Vaccine Quad IM, Preserv and ABX Free 6 MO-64 YRS 2021-07-19 00:00:00 Completed [facility] Influenza Virus Vaccine Quad IM, Preserv and ABX Free 6 MO-64 YRS 2021-07-19 00:00:00 Completed [facility] Influenza Virus Vaccine Quad IM, Preserv and ABX Free 6 MO-64 YRS 2021-07-19 00:00:00 Completed [facility] Influenza Virus Vaccine Quad IM, Preserv and ABX Free 6 MO-64 YRS 2021-07-19 00:00:00 Completed [facility] Influenza Virus Vaccine Quad IM, Preserv and ABX Free 6 MO-64 YRS 2021-07-19 00:00:00 Completed [facility] Influenza Virus Vaccine Quad IM, Preserv and ABX Free 6 MO-64 YRS 2021-07-19 00:00:00 Completed [facility] Influenza Virus Vaccine Quad IM, Preserv and ABX Free 6 MO-64 YRS 2021-07-19 00:00:00 Completed [facility] Influenza Virus Vaccine Quad IM, Preserv and ABX Free 6 MO-64 2021-07-19 00:00:00 Completed [facility] Influenza Virus Vaccine Quad IM, Preserv and ABX Free 6 MO-64 YRS 2021-07-19 00:00:00 Completed [facility] Influenza Virus Vaccine Quad IM, Preserv and ABX Free 6 MO-64 2021-07-19 00:00:00 Completed [facility] Influenza Virus Vaccine Quad IM, Preserv and ABX Free 6 MO-64 YRS 2021-07-19 00:00:00 Completed [facility] Influenza Virus Vaccine Quad IM, Preserv and ABX Free 6 MO-64 YRS 2021-07-19 00:00:00 Completed [facility] Influenza Virus Vaccine Quad IM, Preserv and ABX Free 6 MO-64 YRS 2021-07-19 00:00:00 Completed [facility] Influenza Virus Vaccine Quad IM, Preserv and ABX Free 6 MO-64 YRS 2021-07-19 00:00:00 Completed [facility] Influenza Virus Vaccine Quad IM, Preserv and ABX Free 6 MO-64 YRS 2021-07-19 00:00:00 Completed [facility] Influenza Virus Vaccine Quad IM, Preserv and ABX Free 6 MO-64 YRS 2021-07-19 00:00:00 Completed [facility] Influenza Virus Vaccine Quad IM, Preserv and ABX Free 6 MO-64 YRS 2021-07-19 00:00:00 Completed [facility] Influenza Virus Vaccine Quad IM, Preserv and ABX Free 6 MO-64 YRS 2021-07-19 00:00:00 Completed [facility] Influenza Virus Vaccine Quad IM, Preserv and ABX Free 6 MO-64 2021-07-19 00:00:00 Completed [facility] Influenza Virus Vaccine Quad IM, Preserv and ABX Free 6 MO-64 YRS 2021-07-19 00:00:00 Completed [facility] Influenza Virus Vaccine Quad IM, Preserv and ABX Free 6 MO-64 YRS 2021-07-19 00:00:00 Completed [facility] Influenza Virus Vaccine Quad IM, Preserv and ABX Free 6 MO-64 YRS 2021-07-19 00:00:00 Completed [facility] Influenza Virus Vaccine Quad IM, Preserv and ABX Free 6 MO-64 YRS 2021-07-19 00:00:00 Completed [facility] Influenza Virus Vaccine Quad IM, Preserv and ABX Free 6 MO-64 YRS 2021-07-19 00:00:00 Completed [facility] Influenza Virus Vaccine Quad IM, Preserv and ABX Free 6 MO-64 YRS 2021-07-19 00:00:00 Completed [facility] Influenza Virus Vaccine Quad IM, Preserv and ABX Free 6 MO-64 YRS 2021-07-19 00:00:00 Completed [facility] Influenza Virus Vaccine Quad IM, Preserv and ABX Free 6 MO-64 YRS 2021-07-19 00:00:00 Completed [facility] Influenza Virus Vaccine Quad IM, Preserv and ABX Free 6 MO-64 YRS 2021-07-19 00:00:00 Completed [facility] Influenza Virus Vaccine Quad IM, Preserv and ABX Free 6 MO-64 YRS 2021-07-19 00:00:00 Completed [facility] Influenza Virus Vaccine Quad IM, Preserv and ABX Free 6 MO-64 YRS 2021-07-19 00:00:00 Completed [facility] Influenza Virus Vaccine Quad IM, Preserv and ABX Free 6 MO-64 YRS 2021-07-19 00:00:00 Completed [facility] Influenza Virus Vaccine Quad IM, Preserv and ABX Free 6 MO-64 YRS 2021-07-19 00:00:00 Completed [facility] Influenza Virus Vaccine Quad IM, Preserv and ABX Free 6 MO-64 YRS 2021-07-19 00:00:00 Completed [facility] Influenza Virus Vaccine Quad IM, Preserv and ABX Free 6 MO-64 YRS 2021-07-19 00:00:00 Completed [facility] Influenza Virus Vaccine Quad IM, Preserv and ABX Free 6 MO-64 YRS 2021-07-19 00:00:00 Completed [facility] Influenza Virus Vaccine Quad IM, Preserv and ABX Free 6 MO-64 YRS 2021-07-19 00:00:00 Completed [facility] Influenza Virus Vaccine Quad IM, Preserv and ABX Free 6 MO-64 YRS 2021-07-19 00:00:00 Completed [facility] Influenza Virus Vaccine Quad IM, Preserv and ABX Free 6 MO-64 YRS 2021-07-19 00:00:00 Completed [facility] Influenza Virus Vaccine Quad IM, Preserv and ABX Free 6 MO-64 YRS 2021-07-19 00:00:00 Completed [facility] Influenza Virus Vaccine Quad IM, Preserv and ABX Free 6 MO-64 YRS 2021-07-19 00:00:00 Completed [facility] Influenza Virus Vaccine Quad IM, Preserv and ABX Free 6 MO-64 YRS 2021-07-19 00:00:00 Completed [facility] Influenza Virus Vaccine Quad IM, Preserv and ABX Free 6 MO-64 YRS 2021-07-19 00:00:00 Completed [facility] Influenza Virus Vaccine Quad IM, Preserv and ABX Free 6 MO-64 YRS 2021-07-19 00:00:00 Completed [facility] Influenza Virus Vaccine Quad IM, Preserv and ABX Free 6 MO-64 YRS 2021-07-19 00:00:00 Completed [facility] Influenza Virus Vaccine Quad IM, Preserv and ABX Free 6 MO-64 YRS 2021-07-19 00:00:00 Completed [facility] Influenza Virus Vaccine Quad IM, Preserv and ABX Free 6 MO-64 YRS 2021-07-19 00:00:00 Completed [facility] Influenza Virus Vaccine Quad IM, Preserv and ABX Free 6 MO-64 YRS 2021-07-19 00:00:00 Completed [facility] Influenza Virus Vaccine Quad IM, Preserv and ABX Free 6 MO-64 YRS 2021-07-19 00:00:00 Completed [facility] Influenza Virus Vaccine Quad IM, Preserv and ABX Free 6 MO-64 YRS 2021-07-19 00:00:00 Completed [facility] Influenza Virus Vaccine Quad IM, Preserv and ABX Free 6 MO-64 YRS 2021-07-19 00:00:00 Completed [facility] Influenza Virus Vaccine Quad IM, Preserv and ABX Free 6 MO-64 YRS 2021-07-19 00:00:00 Completed [facility] Influenza Virus Vaccine Quad IM, Preserv and ABX Free 6 MO-64 YRS 2021-07-19 00:00:00 Completed [facility] Influenza Virus Vaccine Quad IM, Preserv and ABX Free 6 MO-64 YRS 2021-07-19 00:00:00 Completed [facility] Influenza Virus Vaccine Quad IM, Preserv and ABX Free 6 MO-64 2021-07-19 00:00:00 Completed [facility] Influenza Virus Vaccine Quad IM, Preserv and ABX Free 6 MO-64 YRS 2021-07-19 00:00:00 Completed [facility] Influenza Virus Vaccine Quad IM, Preserv and ABX Free 6 MO-64 YRS 2021-07-19 00:00:00 Completed [facility] Influenza Virus Vaccine Quad IM, Preserv and ABX Free 6 MO-64 YRS 2021-07-19 00:00:00 Completed [facility] Influenza Virus Vaccine Quad IM, Preserv and ABX Free 6 MO-64 YRS 2021-07-19 00:00:00 Completed [facility] Influenza Virus Vaccine Quad IM, Preserv and ABX Free 6 MO-64 YRS 2021-07-19 00:00:00 Completed [facility] Influenza Virus Vaccine Quad IM, Preserv and ABX Free 6 MO-64 YRS 2021-07-19 00:00:00 Completed [facility] Influenza Virus Vaccine Quad IM, Preserv and ABX Free 6 MO-64 YRS 2021-07-19 00:00:00 Completed [facility] Influenza Virus Vaccine Quad IM, Preserv and ABX Free 6 MO-64 YRS 2021-07-19 00:00:00 Completed [facility] Influenza Virus Vaccine Quad IM, Preserv and ABX Free 6 MO-64 2021-07-19 00:00:00 Completed [facility] Influenza Virus Vaccine Quad IM, Preserv and ABX Free 6 MO-64 2021-07-19 00:00:00 Completed [facility] Influenza Virus Vaccine Quad IM, Preserv and ABX Free 6 MO-64 YRS 2021-07-19 00:00:00 Completed [facility] Influenza Virus Vaccine Quad IM, Preserv and ABX Free 6 MO-64 YRS 2021-07-19 00:00:00 Completed [facility] Influenza Virus Vaccine Quad IM, Preserv and ABX Free 6 MO-64 2021-07-19 00:00:00 Completed [facility] Influenza Virus Vaccine Quad IM, Preserv and ABX Free 6 MO-64 YRS 2021-07-19 00:00:00 Completed [facility] Influenza Virus Vaccine Quad IM, Preserv and ABX Free 6 MO-64 2021-07-19 00:00:00 Completed [facility] Influenza Virus Vaccine Quad IM, Preserv and ABX Free 6 MO-64 YRS 2021-07-19 00:00:00 Completed [facility] TDAP (ADACEL) VACCINE 2019-06-29 00:00:00 Completed [facility] TDAP (ADACEL) VACCINE 2019-06-29 00:00:00 Completed [facility] TDAP (ADACEL) VACCINE 2019-06-29 00:00:00 Completed [facility] TDAP (ADACEL) VACCINE 2019-06-29 00:00:00 Completed [facility] TDAP (ADACEL) VACCINE 2019-06-29 00:00:00 Completed [facility] TDAP (ADACEL) VACCINE 2019-06-29 00:00:00 Completed [facility] TDAP (ADACEL) VACCINE 2019-06-29 00:00:00 Completed [facility] TDAP (ADACEL) VACCINE 2019-06-29 00:00:00 Completed [facility] TDAP (ADACEL) VACCINE 2019-06-29 00:00:00 Completed [facility] TDAP (ADACEL) VACCINE 2019-06-29 00:00:00 Completed [facility] TDAP (ADACEL) VACCINE 2019-06-29 00:00:00 Completed [facility] TDAP (ADACEL) VACCINE 2019-06-29 00:00:00 Completed [facility] TDAP (ADACEL) VACCINE 2019-06-29 00:00:00 Completed [facility] TDAP (ADACEL) VACCINE 2019-06-29 00:00:00 Completed [facility] TDAP (ADACEL) VACCINE 2019-06-29 00:00:00 Completed [facility] TDAP (ADACEL) VACCINE 2019-06-29 00:00:00 Completed [facility] TDAP (ADACEL) VACCINE 2019-06-29 00:00:00 Completed [facility] TDAP (ADACEL) VACCINE 2019-06-29 00:00:00 Completed [facility] TDAP (ADACEL) VACCINE 2019-06-29 00:00:00 Completed [facility] TDAP (ADACEL) VACCINE 2019-06-29 00:00:00 Completed [facility] TDAP (ADACEL) VACCINE 2019-06-29 00:00:00 Completed [facility] TDAP (ADACEL) VACCINE 2019-06-29 00:00:00 Completed [facility] TDAP (ADACEL) VACCINE 2019-06-29 00:00:00 Completed [facility] TDAP (ADACEL) VACCINE 2019-06-29 00:00:00 Completed [facility] TDAP (ADACEL) VACCINE 2019-06-29 00:00:00 Completed [facility] TDAP (ADACEL) VACCINE 2019-06-29 00:00:00 Completed [facility] TDAP (ADACEL) VACCINE 2019-06-29 00:00:00 Completed [facility] TDAP (ADACEL) VACCINE 2019-06-29 00:00:00 Completed [facility] TDAP (ADACEL) VACCINE 2019-06-29 00:00:00 Completed [facility] TDAP (ADACEL) VACCINE 2019-06-29 00:00:00 Completed [facility] TDAP (ADACEL) VACCINE 2019-06-29 00:00:00 Completed [facility] TDAP (ADACEL) VACCINE 2019-06-29 00:00:00 Completed [facility] TDAP (ADACEL) VACCINE 2019-06-29 00:00:00 Completed [facility] TDAP (ADACEL) VACCINE 2019-06-29 00:00:00 Completed [facility] TDAP (ADACEL) VACCINE 2019-06-29 00:00:00 Completed [facility] TDAP (ADACEL) VACCINE 2019-06-29 00:00:00 Completed [facility] TDAP (ADACEL) VACCINE 2019-06-29 00:00:00 Completed [facility] TDAP (ADACEL) VACCINE 2019-06-29 00:00:00 Completed [facility] TDAP (ADACEL) VACCINE 2019-06-29 00:00:00 Completed [facility] TDAP (ADACEL) VACCINE 2019-06-29 00:00:00 Completed [facility] TDAP (ADACEL) VACCINE 2019-06-29 00:00:00 Completed [facility] TDAP (ADACEL) VACCINE 2019-06-29 00:00:00 Completed [facility] TDAP (ADACEL) VACCINE 2019-06-29 00:00:00 Completed [facility] TDAP (ADACEL) VACCINE 2019-06-29 00:00:00 Completed [facility] TDAP (ADACEL) VACCINE 2019-06-29 00:00:00 Completed [facility] TDAP (ADACEL) VACCINE 2019-06-29 00:00:00 Completed [facility] TDAP (ADACEL) VACCINE 2019-06-29 00:00:00 Completed [facility] TDAP (ADACEL) VACCINE 2019-06-29 00:00:00 Completed [facility] TDAP (ADACEL) VACCINE 2019-06-29 00:00:00 Completed [facility] TDAP (ADACEL) VACCINE 2019-06-29 00:00:00 Completed [facility] TDAP (ADACEL) VACCINE 2019-06-29 00:00:00 Completed [facility] TDAP (ADACEL) VACCINE 2019-06-29 00:00:00 Completed [facility] TDAP (ADACEL) VACCINE 2019-06-29 00:00:00 Completed [facility] TDAP (ADACEL) VACCINE 2019-06-29 00:00:00 Completed [facility] TDAP (ADACEL) VACCINE 2019-06-29 00:00:00 Completed [facility] TDAP (ADACEL) VACCINE 2019-06-29 00:00:00 Completed [facility] TDAP (ADACEL) VACCINE 2019-06-29 00:00:00 Completed [facility] TDAP (ADACEL) VACCINE 2019-06-29 00:00:00 Completed [facility] TDAP (ADACEL) VACCINE 2019-06-29 00:00:00 Completed [facility] TDAP (ADACEL) VACCINE 2019-06-29 00:00:00 Completed [facility] TDAP (ADACEL) VACCINE 2019-06-29 00:00:00 Completed [facility] TDAP (ADACEL) VACCINE 2019-06-29 00:00:00 Completed [facility] TDAP (ADACEL) VACCINE 2019-06-29 00:00:00 Completed [facility] TDAP (ADACEL) VACCINE 2019-06-29 00:00:00 Completed [facility] TDAP (ADACEL) VACCINE 2019-06-29 00:00:00 Completed [facility] TDAP (ADACEL) VACCINE 2019-06-29 00:00:00 Completed [facility] TDAP (ADACEL) VACCINE 2019-06-29 00:00:00 Completed [facility] TDAP (ADACEL) VACCINE 2019-06-29 00:00:00 Completed [facility] TDAP (ADACEL) VACCINE 2019-06-29 00:00:00 Completed [facility] TDAP (ADACEL) VACCINE 2019-06-29 00:00:00 Completed [facility] TDAP (ADACEL) VACCINE 2019-06-29 00:00:00 Completed [facility] TDAP (ADACEL) VACCINE 2019-06-29 00:00:00 Completed [facility] TDAP (ADACEL) VACCINE 2019-06-29 00:00:00 Completed [facility] TDAP (ADACEL) VACCINE 2019-06-29 00:00:00 Completed [facility] TDAP (ADACEL) VACCINE 2019-06-29 00:00:00 Completed [facility] TDAP (ADACEL) VACCINE 2019-06-29 00:00:00 Completed [facility] TDAP (ADACEL) VACCINE 2019-06-29 00:00:00 Completed [facility] TDAP (ADACEL) VACCINE 2019-06-29 00:00:00 Completed [facility] TDAP (ADACEL) VACCINE 2019-06-29 00:00:00 Completed [facility] TDAP (ADACEL) VACCINE 2019-06-29 00:00:00 Completed [facility] TDAP (ADACEL) VACCINE 2019-06-29 00:00:00 Completed [facility] Influenza Virus Vaccine Quad .5 mL IM 6+ MO 2019-02-11 00:00:00 Completed [facility] Influenza Virus Vaccine Quad .5 mL IM 6+ MO 2019-02-11 00:00:00 Completed [facility] Influenza Virus Vaccine Quad .5 mL IM 6+ MO 2019-02-11 00:00:00 Completed [facility] Influenza Virus Vaccine Quad .5 mL IM 6+ MO 2019-02-11 00:00:00 Completed [facility] Influenza Virus Vaccine Quad .5 mL IM 6+ MO 2019-02-11 00:00:00 Completed [facility] Influenza Virus Vaccine Quad .5 mL IM 6+ MO 2019-02-11 00:00:00 Completed [facility] Influenza Virus Vaccine Quad .5 mL IM 6+ MO 2019-02-11 00:00:00 Completed [facility] Influenza Virus Vaccine Quad .5 mL IM 6+ MO 2019-02-11 00:00:00 Completed [facility] Influenza Virus Vaccine Quad .5 mL IM 6+ MO 2019-02-11 00:00:00 Completed [facility] Influenza Virus Vaccine Quad .5 mL IM 6+ MO 2019-02-11 00:00:00 Completed [facility] Influenza Virus Vaccine Quad .5 mL IM 6+ MO 2019-02-11 00:00:00 Completed [facility] Influenza Virus Vaccine Quad .5 mL IM 6+ MO 2019-02-11 00:00:00 Completed [facility] Influenza Virus Vaccine Quad .5 mL IM 6+ MO 2019-02-11 00:00:00 Completed [facility] Influenza Virus Vaccine Quad .5 mL IM 6+ MO 2019-02-11 00:00:00 Completed [facility] Influenza Virus Vaccine Quad .5 mL IM 6+ MO 2019-02-11 00:00:00 Completed [facility] Influenza Virus Vaccine Quad .5 mL IM 6+ MO 2019-02-11 00:00:00 Completed [facility] Influenza Virus Vaccine Quad .5 mL IM 6+ MO 2019-02-11 00:00:00 Completed [facility] Influenza Virus Vaccine Quad .5 mL IM 6+ MO 2019-02-11 00:00:00 Completed [facility] Influenza Virus Vaccine Quad .5 mL IM 6+ MO 2019-02-11 00:00:00 Completed [facility] Influenza Virus Vaccine Quad .5 mL IM 6+ MO 2019-02-11 00:00:00 Completed [facility] Influenza Virus Vaccine Quad .5 mL IM 6+ MO 2019-02-11 00:00:00 Completed [facility] Influenza Virus Vaccine Quad .5 mL IM 6+ MO 2019-02-11 00:00:00 Completed [facility] Influenza Virus Vaccine Quad .5 mL IM 6+ MO 2019-02-11 00:00:00 Completed [facility] Influenza Virus Vaccine Quad .5 mL IM 6+ MO 2019-02-11 00:00:00 Completed [facility] Influenza Virus Vaccine Quad .5 mL IM 6+ MO 2019-02-11 00:00:00 Completed [facility] Influenza Virus Vaccine Quad .5 mL IM 6+ MO 2019-02-11 00:00:00 Completed [facility] Influenza Virus Vaccine Quad .5 mL IM 6+ MO 2019-02-11 00:00:00 Completed [facility] Influenza Virus Vaccine Quad .5 mL IM 6+ MO 2019-02-11 00:00:00 Completed [facility] Influenza Virus Vaccine Quad .5 mL IM 6+ MO 2019-02-11 00:00:00 Completed [facility] Influenza Virus Vaccine Quad .5 mL IM 6+ MO 2019-02-11 00:00:00 Completed [facility] Influenza Virus Vaccine Quad .5 mL IM 6+ MO 2019-02-11 00:00:00 Completed [facility] Influenza Virus Vaccine Quad .5 mL IM 6+ MO 2019-02-11 00:00:00 Completed [facility] Influenza Virus Vaccine Quad .5 mL IM 6+ MO 2019-02-11 00:00:00 Completed [facility] Influenza Virus Vaccine Quad .5 mL IM 6+ MO 2019-02-11 00:00:00 Completed [facility] Influenza Virus Vaccine Quad .5 mL IM 6+ MO 2019-02-11 00:00:00 Completed [facility] Influenza Virus Vaccine Quad .5 mL IM 6+ MO 2019-02-11 00:00:00 Completed [facility] Influenza Virus Vaccine Quad .5 mL IM 6+ MO 2019-02-11 00:00:00 Completed [facility] Influenza Virus Vaccine Quad .5 mL IM 6+ MO 2019-02-11 00:00:00 Completed [facility] Influenza Virus Vaccine Quad .5 mL IM 6+ MO 2019-02-11 00:00:00 Completed [facility] Influenza Virus Vaccine Quad .5 mL IM 6+ MO 2019-02-11 00:00:00 Completed [facility] Influenza Virus Vaccine Quad .5 mL IM 6+ MO 2019-02-11 00:00:00 Completed [facility] Influenza Virus Vaccine Quad .5 mL IM 6+ MO 2019-02-11 00:00:00 Completed [facility] Influenza Virus Vaccine Quad .5 mL IM 6+ MO 2019-02-11 00:00:00 Completed [facility] Influenza Virus Vaccine Quad .5 mL IM 6+ MO 2019-02-11 00:00:00 Completed [facility] Influenza Virus Vaccine Quad .5 mL IM 6+ MO 2019-02-11 00:00:00 Completed [facility] Influenza Virus Vaccine Quad .5 mL IM 6+ MO 2019-02-11 00:00:00 Completed [facility] Influenza Virus Vaccine Quad .5 mL IM 6+ MO 2019-02-11 00:00:00 Completed [facility] Influenza Virus Vaccine Quad .5 mL IM 6+ MO 2019-02-11 00:00:00 Completed [facility] Influenza Virus Vaccine Quad .5 mL IM 6+ MO 2019-02-11 00:00:00 Completed [facility] Influenza Virus Vaccine Quad .5 mL IM 6+ MO 2019-02-11 00:00:00 Completed [facility] Influenza Virus Vaccine Quad .5 mL IM 6+ MO 2019-02-11 00:00:00 Completed [facility] Influenza Virus Vaccine Quad .5 mL IM 6+ MO 2019-02-11 00:00:00 Completed [facility] Influenza Virus Vaccine Quad .5 mL IM 6+ MO 2019-02-11 00:00:00 Completed [facility] Influenza Virus Vaccine Quad .5 mL IM 6+ MO 2019-02-11 00:00:00 Completed [facility] Influenza Virus Vaccine Quad .5 mL IM 6+ MO 2019-02-11 00:00:00 Completed [facility] Influenza Virus Vaccine Quad .5 mL IM 6+ MO 2019-02-11 00:00:00 Completed [facility] Influenza Virus Vaccine Quad .5 mL IM 6+ MO 2019-02-11 00:00:00 Completed [facility] Influenza Virus Vaccine Quad .5 mL IM 6+ MO 2019-02-11 00:00:00 Completed [facility] Influenza Virus Vaccine Quad .5 mL IM 6+ MO 2019-02-11 00:00:00 Completed [facility] Influenza Virus Vaccine Quad .5 mL IM 6+ MO 2019-02-11 00:00:00 Completed [facility] Influenza Virus Vaccine Quad .5 mL IM 6+ MO 2019-02-11 00:00:00 Completed [facility] Influenza Virus Vaccine Quad .5 mL IM 6+ MO 2019-02-11 00:00:00 Completed [facility] Influenza Virus Vaccine Quad .5 mL IM 6+ MO 2019-02-11 00:00:00 Completed [facility] Influenza Virus Vaccine Quad .5 mL IM 6+ MO 2019-02-11 00:00:00 Completed [facility] Influenza Virus Vaccine Quad .5 mL IM 6+ MO 2019-02-11 00:00:00 Completed [facility] Influenza Virus Vaccine Quad .5 mL IM 6+ MO 2019-02-11 00:00:00 Completed [facility] Influenza Virus Vaccine Quad .5 mL IM 6+ MO 2019-02-11 00:00:00 Completed [facility] Influenza Virus Vaccine Quad .5 mL IM 6+ MO 2019-02-11 00:00:00 Completed [facility] Influenza Virus Vaccine Quad .5 mL IM 6+ MO 2019-02-11 00:00:00 Completed [facility] Influenza Virus Vaccine Quad .5 mL IM 6+ MO 2019-02-11 00:00:00 Completed [facility] Influenza Virus Vaccine Quad .5 mL IM 6+ MO 2019-02-11 00:00:00 Completed [facility] Influenza Virus Vaccine Quad .5 mL IM 6+ MO 2019-02-11 00:00:00 Completed [facility] Influenza Virus Vaccine Quad .5 mL IM 6+ MO 2019-02-11 00:00:00 Completed [facility] Influenza Virus Vaccine Quad .5 mL IM 6+ MO 2019-02-11 00:00:00 Completed [facility] Influenza Virus Vaccine Quad .5 mL IM 6+ MO 2019-02-11 00:00:00 Completed [facility] Influenza Virus Vaccine Quad .5 mL IM 6+ MO 2019-02-11 00:00:00 Completed [facility] Influenza Virus Vaccine Quad .5 mL IM 6+ MO 2019-02-11 00:00:00 Completed [facility] Influenza Virus Vaccine Quad .5 mL IM 6+ MO 2019-02-11 00:00:00 Completed [facility] Influenza Virus Vaccine Quad .5 mL IM 6+ MO 2019-02-11 00:00:00 Completed [facility] Influenza Virus Vaccine Quad .5 mL IM 6+ MO 2019-02-11 00:00:00 Completed [facility] Influenza Virus Vaccine Quad .5 mL IM 6+ MO 2019-02-11 00:00:00 Completed [facility] Varicella (varivax)(chicken pox) 2018-02-12 00:00:00 Completed [facility] Varicella (varivax)(chicken pox) 2018-02-12 00:00:00 Completed [facility] Varicella (varivax)(chicken pox) 2018-02-12 00:00:00 Completed [facility] Varicella (varivax)(chicken pox) 2018-02-12 00:00:00 Completed [facility] Varicella (varivax)(chicken pox) 2018-02-12 00:00:00 Completed [facility] Varicella (varivax)(chicken pox) 2018-02-12 00:00:00 Completed [facility] Varicella (varivax)(chicken pox) 2018-02-12 00:00:00 Completed [facility] Varicella (varivax)(chicken pox) 2018-02-12 00:00:00 Completed [facility] Varicella (varivax)(chicken pox) 2018-02-12 00:00:00 Completed [facility] Varicella (varivax)(chicken pox) 2018-02-12 00:00:00 Completed [facility] Varicella (varivax)(chicken pox) 2018-02-12 00:00:00 Completed [facility] Varicella (varivax)(chicken pox) 2018-02-12 00:00:00 Completed [facility] Varicella (varivax)(chicken pox) 2018-02-12 00:00:00 Completed [facility] Varicella (varivax)(chicken pox) 2018-02-12 00:00:00 Completed [facility] Varicella (varivax)(chicken pox) 2018-02-12 00:00:00 Completed [facility] Varicella (varivax)(chicken pox) 2018-02-12 00:00:00 Completed [facility] Varicella (varivax)(chicken pox) 2018-02-12 00:00:00 Completed [facility] Varicella (varivax)(chicken pox) 2018-02-12 00:00:00 Completed [facility] Varicella (varivax)(chicken pox) 2018-02-12 00:00:00 Completed [facility] Varicella (varivax)(chicken pox) 2018-02-12 00:00:00 Completed [facility] Varicella (varivax)(chicken pox) 2018-02-12 00:00:00 Completed [facility] Varicella (varivax)(chicken pox) 2018-02-12 00:00:00 Completed [facility] Varicella (varivax)(chicken pox) 2018-02-12 00:00:00 Completed [facility] Varicella (varivax)(chicken pox) 2018-02-12 00:00:00 Completed [facility] Varicella (varivax)(chicken pox) 2018-02-12 00:00:00 Completed [facility] Varicella (varivax)(chicken pox) 2018-02-12 00:00:00 Completed [facility] Varicella (varivax)(chicken pox) 2018-02-12 00:00:00 Completed [facility] Varicella (varivax)(chicken pox) 2018-02-12 00:00:00 Completed [facility] Varicella (varivax)(chicken pox) 2018-02-12 00:00:00 Completed [facility] Varicella (varivax)(chicken pox) 2018-02-12 00:00:00 Completed [facility] Varicella (varivax)(chicken pox) 2018-02-12 00:00:00 Completed [facility] Varicella (varivax)(chicken pox) 2018-02-12 00:00:00 Completed [facility] Varicella (varivax)(chicken pox) 2018-02-12 00:00:00 Completed [facility] Varicella (varivax)(chicken pox) 2018-02-12 00:00:00 Completed [facility] Varicella (varivax)(chicken pox) 2018-02-12 00:00:00 Completed [facility] Varicella (varivax)(chicken pox) 2018-02-12 00:00:00 Completed [facility] Varicella (varivax)(chicken pox) 2018-02-12 00:00:00 Completed [facility] Varicella (varivax)(chicken pox) 2018-02-12 00:00:00 Completed [facility] Varicella (varivax)(chicken pox) 2018-02-12 00:00:00 Completed [facility] Varicella (varivax)(chicken pox) 2018-02-12 00:00:00 Completed [facility] Varicella (varivax)(chicken pox) 2018-02-12 00:00:00 Completed [facility] Varicella (varivax)(chicken pox) 2018-02-12 00:00:00 Completed [facility] Varicella (varivax)(chicken pox) 2018-02-12 00:00:00 Completed [facility] Varicella (varivax)(chicken pox) 2018-02-12 00:00:00 Completed [facility] Varicella (varivax)(chicken pox) 2018-02-12 00:00:00 Completed [facility] Varicella (varivax)(chicken pox) 2018-02-12 00:00:00 Completed [facility] Varicella (varivax)(chicken pox) 2018-02-12 00:00:00 Completed [facility] Varicella (varivax)(chicken pox) 2018-02-12 00:00:00 Completed [facility] Varicella (varivax)(chicken pox) 2018-02-12 00:00:00 Completed [facility] Varicella (varivax)(chicken pox) 2018-02-12 00:00:00 Completed [facility] Varicella (varivax)(chicken pox) 2018-02-12 00:00:00 Completed [facility] Varicella (varivax)(chicken pox) 2018-02-12 00:00:00 Completed [facility] Varicella (varivax)(chicken pox) 2018-02-12 00:00:00 Completed [facility] Varicella (varivax)(chicken pox) 2018-02-12 00:00:00 Completed [facility] Varicella (varivax)(chicken pox) 2018-02-12 00:00:00 Completed [facility] Varicella (varivax)(chicken pox) 2018-02-12 00:00:00 Completed [facility] Varicella (varivax)(chicken pox) 2018-02-12 00:00:00 Completed [facility] Varicella (varivax)(chicken pox) 2018-02-12 00:00:00 Completed [facility] Varicella (varivax)(chicken pox) 2018-02-12 00:00:00 Completed [facility] Varicella (varivax)(chicken pox) 2018-02-12 00:00:00 Completed [facility] Varicella (varivax)(chicken pox) 2018-02-12 00:00:00 Completed [facility] Varicella (varivax)(chicken pox) 2018-02-12 00:00:00 Completed [facility] Varicella (varivax)(chicken pox) 2018-02-12 00:00:00 Completed [facility] Varicella (varivax)(chicken pox) 2018-02-12 00:00:00 Completed [facility] Varicella (varivax)(chicken pox) 2018-02-12 00:00:00 Completed [facility] Varicella (varivax)(chicken pox) 2018-02-12 00:00:00 Completed [facility] Varicella (varivax)(chicken pox) 2018-02-12 00:00:00 Completed [facility] Varicella (varivax)(chicken pox) 2018-02-12 00:00:00 Completed [facility] Varicella (varivax)(chicken pox) 2018-02-12 00:00:00 Completed [facility] Varicella (varivax)(chicken pox) 2018-02-12 00:00:00 Completed [facility] Varicella (varivax)(chicken pox) 2018-02-12 00:00:00 Completed [facility] Varicella (varivax)(chicken pox) 2018-02-12 00:00:00 Completed [facility] Varicella (varivax)(chicken pox) 2018-02-12 00:00:00 Completed [facility] Varicella (varivax)(chicken pox) 2018-02-12 00:00:00 Completed [facility] Varicella (varivax)(chicken pox) 2018-02-12 00:00:00 Completed [facility] Varicella (varivax)(chicken pox) 2018-02-12 00:00:00 Completed [facility] Varicella (varivax)(chicken pox) 2018-02-12 00:00:00 Completed [facility] Varicella (varivax)(chicken pox) 2018-02-12 00:00:00 Completed [facility] Varicella (varivax)(chicken pox) 2018-02-12 00:00:00 Completed [facility] Varicella (varivax)(chicken pox) 2018-02-12 00:00:00 Completed [facility] Varicella (varivax)(chicken pox) 2018-02-12 00:00:00 Completed [facility] TDAP 2017-12-17 00:00:00 Completed [facility] TDAP 2017-12-17 00:00:00 Completed [facility] TDAP 2017-12-17 00:00:00 Completed [facility] TDAP 2017-12-17 00:00:00 Completed [facility] TDAP 2017-12-17 00:00:00 Completed [facility] TDAP 2017-12-17 00:00:00 Completed [facility] TDAP 2017-12-17 00:00:00 Completed [facility] TDAP 2017-12-17 00:00:00 Completed [facility] TDAP 2017-12-17 00:00:00 Completed [facility] TDAP 2017-12-17 00:00:00 Completed [facility] TDAP 2017-12-17 00:00:00 Completed [facility] TDAP 2017-12-17 00:00:00 Completed [facility] TDAP 2017-12-17 00:00:00 Completed [facility] TDAP 2017-12-17 00:00:00 Completed [facility] TDAP 2017-12-17 00:00:00 Completed [facility] TDAP 2017-12-17 00:00:00 Completed [facility] TDAP 2017-12-17 00:00:00 Completed [facility] TDAP 2017-12-17 00:00:00 Completed [facility] TDAP 2017-12-17 00:00:00 Completed [facility] TDAP 2017-12-17 00:00:00 Completed [facility] TDAP 2017-12-17 00:00:00 Completed [facility] TDAP 2017-12-17 00:00:00 Completed [facility] TDAP 2017-12-17 00:00:00 Completed [facility] TDAP 2017-12-17 00:00:00 Completed [facility] TDAP 2017-12-17 00:00:00 Completed [facility] TDAP 2017-12-17 00:00:00 Completed [facility] TDAP 2017-12-17 00:00:00 Completed [facility] TDAP 2017-12-17 00:00:00 Completed [facility] TDAP 2017-12-17 00:00:00 Completed [facility] TDAP 2017-12-17 00:00:00 Completed [facility] TDAP 2017-12-17 00:00:00 Completed [facility] TDAP 2017-12-17 00:00:00 Completed [facility] TDAP 2017-12-17 00:00:00 Completed [facility] TDAP 2017-12-17 00:00:00 Completed [facility] TDAP 2017-12-17 00:00:00 Completed [facility] TDAP 2017-12-17 00:00:00 Completed [facility] TDAP 2017-12-17 00:00:00 Completed [facility] TDAP 2017-12-17 00:00:00 Completed [facility] TDAP 2017-12-17 00:00:00 Completed [facility] TDAP 2017-12-17 00:00:00 Completed [facility] TDAP 2017-12-17 00:00:00 Completed [facility] TDAP 2017-12-17 00:00:00 Completed [facility] TDAP 2017-12-17 00:00:00 Completed [facility] TDAP 2017-12-17 00:00:00 Completed [facility] TDAP 2017-12-17 00:00:00 Completed [facility] TDAP 2017-12-17 00:00:00 Completed [facility] TDAP 2017-12-17 00:00:00 Completed [facility] TDAP 2017-12-17 00:00:00 Completed [facility] TDAP 2017-12-17 00:00:00 Completed [facility] TDAP 2017-12-17 00:00:00 Completed [facility] TDAP 2017-12-17 00:00:00 Completed [facility] TDAP 2017-12-17 00:00:00 Completed [facility] TDAP 2017-12-17 00:00:00 Completed [facility] TDAP 2017-12-17 00:00:00 Completed [facility] TDAP 2017-12-17 00:00:00 Completed [facility] TDAP 2017-12-17 00:00:00 Completed [facility] TDAP 2017-12-17 00:00:00 Completed [facility] TDAP 2017-12-17 00:00:00 Completed [facility] TDAP 2017-12-17 00:00:00 Completed [facility] TDAP 2017-12-17 00:00:00 Completed [facility] TDAP 2017-12-17 00:00:00 Completed [facility] TDAP 2017-12-17 00:00:00 Completed [facility] TDAP 2017-12-17 00:00:00 Completed [facility] TDAP 2017-12-17 00:00:00 Completed [facility] TDAP 2017-12-17 00:00:00 Completed [facility] TDAP 2017-12-17 00:00:00 Completed [facility] TDAP 2017-12-17 00:00:00 Completed [facility] TDAP 2017-12-17 00:00:00 Completed [facility] TDAP 2017-12-17 00:00:00 Completed [facility] TDAP 2017-12-17 00:00:00 Completed [facility] TDAP 2017-12-17 00:00:00 Completed [facility] TDAP 2017-12-17 00:00:00 Completed [facility] TDAP 2017-12-17 00:00:00 Completed [facility] TDAP 2017-12-17 00:00:00 Completed [facility] TDAP 2017-12-17 00:00:00 Completed [facility] TDAP 2017-12-17 00:00:00 Completed [facility] TDAP 2017-12-17 00:00:00 Completed [facility] TDAP 2017-12-17 00:00:00 Completed [facility] TDAP 2017-12-17 00:00:00 Completed [facility] TDAP 2017-12-17 00:00:00 Completed [facility] TDAP 2017-12-17 00:00:00 Completed [facility] Varicella (varivax)(chicken pox) 2017-01-03 00:00:00 Completed [facility] Varicella (varivax)(chicken pox) 2017-01-03 00:00:00 Completed [facility] Varicella (varivax)(chicken pox) 2017-01-03 00:00:00 Completed [facility] Varicella (varivax)(chicken pox) 2017-01-03 00:00:00 Completed [facility] Varicella (varivax)(chicken pox) 2017-01-03 00:00:00 Completed [facility] Varicella (varivax)(chicken pox) 2017-01-03 00:00:00 Completed [facility] Varicella (varivax)(chicken pox) 2017-01-03 00:00:00 Completed [facility] Varicella (varivax)(chicken pox) 2017-01-03 00:00:00 Completed [facility] Varicella (varivax)(chicken pox) 2017-01-03 00:00:00 Completed [facility] Varicella (varivax)(chicken pox) 2017-01-03 00:00:00 Completed [facility] Varicella (varivax)(chicken pox) 2017-01-03 00:00:00 Completed [facility] Varicella (varivax)(chicken pox) 2017-01-03 00:00:00 Completed [facility] Varicella (varivax)(chicken pox) 2017-01-03 00:00:00 Completed [facility] Varicella (varivax)(chicken pox) 2017-01-03 00:00:00 Completed [facility] Varicella (varivax)(chicken pox) 2017-01-03 00:00:00 Completed [facility] Varicella (varivax)(chicken pox) 2017-01-03 00:00:00 Completed [facility] Varicella (varivax)(chicken pox) 2017-01-03 00:00:00 Completed [facility] Varicella (varivax)(chicken pox) 2017-01-03 00:00:00 Completed [facility] Varicella (varivax)(chicken pox) 2017-01-03 00:00:00 Completed [facility] Varicella (varivax)(chicken pox) 2017-01-03 00:00:00 Completed [facility] Varicella (varivax)(chicken pox) 2017-01-03 00:00:00 Completed [facility] Varicella (varivax)(chicken pox) 2017-01-03 00:00:00 Completed [facility] Varicella (varivax)(chicken pox) 2017-01-03 00:00:00 Completed [facility] Varicella (varivax)(chicken pox) 2017-01-03 00:00:00 Completed [facility] Varicella (varivax)(chicken pox) 2017-01-03 00:00:00 Completed [facility] Varicella (varivax)(chicken pox) 2017-01-03 00:00:00 Completed [facility] Varicella (varivax)(chicken pox) 2017-01-03 00:00:00 Completed [facility] Varicella (varivax)(chicken pox) 2017-01-03 00:00:00 Completed [facility] Varicella (varivax)(chicken pox) 2017-01-03 00:00:00 Completed [facility] Varicella (varivax)(chicken pox) 2017-01-03 00:00:00 Completed [facility] Varicella (varivax)(chicken pox) 2017-01-03 00:00:00 Completed [facility] Varicella (varivax)(chicken pox) 2017-01-03 00:00:00 Completed [facility] Varicella (varivax)(chicken pox) 2017-01-03 00:00:00 Completed [facility] Varicella (varivax)(chicken pox) 2017-01-03 00:00:00 Completed [facility] Varicella (varivax)(chicken pox) 2017-01-03 00:00:00 Completed [facility] Varicella (varivax)(chicken pox) 2017-01-03 00:00:00 Completed [facility] Varicella (varivax)(chicken pox) 2017-01-03 00:00:00 Completed [facility] Varicella (varivax)(chicken pox) 2017-01-03 00:00:00 Completed [facility] Varicella (varivax)(chicken pox) 2017-01-03 00:00:00 Completed [facility] Varicella (varivax)(chicken pox) 2017-01-03 00:00:00 Completed [facility] Varicella (varivax)(chicken pox) 2017-01-03 00:00:00 Completed [facility] Varicella (varivax)(chicken pox) 2017-01-03 00:00:00 Completed [facility] Varicella (varivax)(chicken pox) 2017-01-03 00:00:00 Completed [facility] Varicella (varivax)(chicken pox) 2017-01-03 00:00:00 Completed [facility] Varicella (varivax)(chicken pox) 2017-01-03 00:00:00 Completed [facility] Varicella (varivax)(chicken pox) 2017-01-03 00:00:00 Completed [facility] Varicella (varivax)(chicken pox) 2017-01-03 00:00:00 Completed [facility] Varicella (varivax)(chicken pox) 2017-01-03 00:00:00 Completed [facility] Varicella (varivax)(chicken pox) 2017-01-03 00:00:00 Completed [facility] Varicella (varivax)(chicken pox) 2017-01-03 00:00:00 Completed [facility] Varicella (varivax)(chicken pox) 2017-01-03 00:00:00 Completed [facility] Varicella (varivax)(chicken pox) 2017-01-03 00:00:00 Completed [facility] Varicella (varivax)(chicken pox) 2017-01-03 00:00:00 Completed [facility] Varicella (varivax)(chicken pox) 2017-01-03 00:00:00 Completed [facility] Varicella (varivax)(chicken pox) 2017-01-03 00:00:00 Completed [facility] Varicella (varivax)(chicken pox) 2017-01-03 00:00:00 Completed [facility] Varicella (varivax)(chicken pox) 2017-01-03 00:00:00 Completed [facility] Varicella (varivax)(chicken pox) 2017-01-03 00:00:00 Completed [facility] Varicella (varivax)(chicken pox) 2017-01-03 00:00:00 Completed [facility] Varicella (varivax)(chicken pox) 2017-01-03 00:00:00 Completed [facility] Varicella (varivax)(chicken pox) 2017-01-03 00:00:00 Completed [facility] Varicella (varivax)(chicken pox) 2017-01-03 00:00:00 Completed [facility] Varicella (varivax)(chicken pox) 2017-01-03 00:00:00 Completed [facility] Varicella (varivax)(chicken pox) 2017-01-03 00:00:00 Completed [facility] Varicella (varivax)(chicken pox) 2017-01-03 00:00:00 Completed [facility] Varicella (varivax)(chicken pox) 2017-01-03 00:00:00 Completed [facility] Varicella (varivax)(chicken pox) 2017-01-03 00:00:00 Completed [facility] Varicella (varivax)(chicken pox) 2017-01-03 00:00:00 Completed [facility] Varicella (varivax)(chicken pox) 2017-01-03 00:00:00 Completed [facility] Varicella (varivax)(chicken pox) 2017-01-03 00:00:00 Completed [facility] Varicella (varivax)(chicken pox) 2017-01-03 00:00:00 Completed [facility] Varicella (varivax)(chicken pox) 2017-01-03 00:00:00 Completed [facility] Varicella (varivax)(chicken pox) 2017-01-03 00:00:00 Completed [facility] Varicella (varivax)(chicken pox) 2017-01-03 00:00:00 Completed [facility] Varicella (varivax)(chicken pox) 2017-01-03 00:00:00 Completed [facility] Varicella (varivax)(chicken pox) 2017-01-03 00:00:00 Completed [facility] Varicella (varivax)(chicken pox) 2017-01-03 00:00:00 Completed [facility] Varicella (varivax)(chicken pox) 2017-01-03 00:00:00 Completed [facility] Varicella (varivax)(chicken pox) 2017-01-03 00:00:00 Completed [facility] Varicella (varivax)(chicken pox) 2017-01-03 00:00:00 Completed [facility] Varicella (varivax)(chicken pox) 2017-01-03 00:00:00 Completed [facility] TDAP 2016-10-03 00:00:00 Completed [facility] TDAP 2016-10-03 00:00:00 Completed [facility] TDAP 2016-10-03 00:00:00 Completed [facility] TDAP 2016-10-03 00:00:00 Completed [facility] TDAP 2016-10-03 00:00:00 Completed [facility] TDAP 2016-10-03 00:00:00 Completed [facility] TDAP 2016-10-03 00:00:00 Completed [facility] TDAP 2016-10-03 00:00:00 Completed [facility] TDAP 2016-10-03 00:00:00 Completed [facility] TDAP 2016-10-03 00:00:00 Completed [facility] TDAP 2016-10-03 00:00:00 Completed [facility] TDAP 2016-10-03 00:00:00 Completed [facility] TDAP 2016-10-03 00:00:00 Completed [facility] TDAP 2016-10-03 00:00:00 Completed [facility] TDAP 2016-10-03 00:00:00 Completed [facility] TDAP 2016-10-03 00:00:00 Completed [facility] TDAP 2016-10-03 00:00:00 Completed [facility] TDAP 2016-10-03 00:00:00 Completed [facility] TDAP 2016-10-03 00:00:00 Completed [facility] TDAP 2016-10-03 00:00:00 Completed [facility] TDAP 2016-10-03 00:00:00 Completed [facility] TDAP 2016-10-03 00:00:00 Completed [facility] TDAP 2016-10-03 00:00:00 Completed [facility] TDAP 2016-10-03 00:00:00 Completed [facility] TDAP 2016-10-03 00:00:00 Completed [facility] TDAP 2016-10-03 00:00:00 Completed [facility] TDAP 2016-10-03 00:00:00 Completed [facility] TDAP 2016-10-03 00:00:00 Completed [facility] TDAP 2016-10-03 00:00:00 Completed [facility] TDAP 2016-10-03 00:00:00 Completed [facility] TDAP 2016-10-03 00:00:00 Completed [facility] TDAP 2016-10-03 00:00:00 Completed [facility] TDAP 2016-10-03 00:00:00 Completed [facility] TDAP 2016-10-03 00:00:00 Completed [facility] TDAP 2016-10-03 00:00:00 Completed [facility] TDAP 2016-10-03 00:00:00 Completed [facility] TDAP 2016-10-03 00:00:00 Completed [facility] TDAP 2016-10-03 00:00:00 Completed [facility] TDAP 2016-10-03 00:00:00 Completed [facility] TDAP 2016-10-03 00:00:00 Completed [facility] TDAP 2016-10-03 00:00:00 Completed [facility] TDAP 2016-10-03 00:00:00 Completed [facility] TDAP 2016-10-03 00:00:00 Completed [facility] TDAP 2016-10-03 00:00:00 Completed [facility] TDAP 2016-10-03 00:00:00 Completed [facility] TDAP 2016-10-03 00:00:00 Completed [facility] TDAP 2016-10-03 00:00:00 Completed [facility] TDAP 2016-10-03 00:00:00 Completed [facility] TDAP 2016-10-03 00:00:00 Completed [facility] TDAP 2016-10-03 00:00:00 Completed [facility] TDAP 2016-10-03 00:00:00 Completed [facility] TDAP 2016-10-03 00:00:00 Completed [facility] TDAP 2016-10-03 00:00:00 Completed [facility] TDAP 2016-10-03 00:00:00 Completed [facility] TDAP 2016-10-03 00:00:00 Completed [facility] TDAP 2016-10-03 00:00:00 Completed [facility] TDAP 2016-10-03 00:00:00 Completed [facility] TDAP 2016-10-03 00:00:00 Completed [facility] TDAP 2016-10-03 00:00:00 Completed [facility] TDAP 2016-10-03 00:00:00 Completed [facility] TDAP 2016-10-03 00:00:00 Completed [facility] TDAP 2016-10-03 00:00:00 Completed [facility] TDAP 2016-10-03 00:00:00 Completed [facility] TDAP 2016-10-03 00:00:00 Completed [facility] TDAP 2016-10-03 00:00:00 Completed [facility] TDAP 2016-10-03 00:00:00 Completed [facility] TDAP 2016-10-03 00:00:00 Completed [facility] TDAP 2016-10-03 00:00:00 Completed [facility] TDAP 2016-10-03 00:00:00 Completed [facility] TDAP 2016-10-03 00:00:00 Completed [facility] TDAP 2016-10-03 00:00:00 Completed [facility] TDAP 2016-10-03 00:00:00 Completed [facility] TDAP 2016-10-03 00:00:00 Completed [facility] TDAP 2016-10-03 00:00:00 Completed [facility] TDAP 2016-10-03 00:00:00 Completed [facility] TDAP 2016-10-03 00:00:00 Completed [facility] TDAP 2016-10-03 00:00:00 Completed [facility] TDAP 2016-10-03 00:00:00 Completed [facility] TDAP 2016-10-03 00:00:00 Completed [facility] TDAP 2016-10-03 00:00:00 Completed [facility] TDAP 2016-10-03 00:00:00 Completed [facility] HPV 2010-07-26 00:00:00 Completed [facility] HPV 2010-07-26 00:00:00 Completed [facility] HPV 2010-07-26 00:00:00 Completed [facility] HPV 2010-07-26 00:00:00 Completed [facility] HPV 2010-07-26 00:00:00 Completed [facility] HPV 2010-07-26 00:00:00 Completed [facility] HPV 2010-07-26 00:00:00 Completed [facility] HPV 2010-07-26 00:00:00 Completed [facility] HPV 2010-07-26 00:00:00 Completed [facility] HPV 2010-07-26 00:00:00 Completed [facility] HPV 2010-07-26 00:00:00 Completed [facility] HPV 2010-07-26 00:00:00 Completed [facility] HPV 2010-07-26 00:00:00 Completed [facility] HPV 2010-07-26 00:00:00 Completed [facility] HPV 2010-07-26 00:00:00 Completed [facility] HPV 2010-07-26 00:00:00 Completed [facility] HPV 2010-07-26 00:00:00 Completed [facility] HPV 2010-07-26 00:00:00 Completed [facility] HPV 2010-07-26 00:00:00 Completed [facility] HPV 2010-07-26 00:00:00 Completed [facility] HPV 2010-07-26 00:00:00 Completed [facility] HPV 2010-07-26 00:00:00 Completed [facility] HPV 2010-07-26 00:00:00 Completed [facility] HPV 2010-07-26 00:00:00 Completed [facility] HPV 2010-07-26 00:00:00 Completed [facility] HPV 2010-07-26 00:00:00 Completed [facility] HPV 2010-07-26 00:00:00 Completed [facility] HPV 2010-07-26 00:00:00 Completed [facility] HPV 2010-07-26 00:00:00 Completed [facility] HPV 2010-07-26 00:00:00 Completed [facility] HPV 2010-07-26 00:00:00 Completed [facility] HPV 2010-07-26 00:00:00 Completed [facility] HPV 2010-07-26 00:00:00 Completed [facility] HPV 2010-07-26 00:00:00 Completed [facility] HPV 2010-07-26 00:00:00 Completed [facility] HPV 2010-07-26 00:00:00 Completed [facility] HPV 2010-07-26 00:00:00 Completed [facility] HPV 2010-07-26 00:00:00 Completed [facility] HPV 2010-07-26 00:00:00 Completed [facility] HPV 2010-07-26 00:00:00 Completed [facility] HPV 2010-07-26 00:00:00 Completed [facility] HPV 2010-07-26 00:00:00 Completed [facility] HPV 2010-07-26 00:00:00 Completed [facility] HPV 2010-07-26 00:00:00 Completed [facility] HPV 2010-07-26 00:00:00 Completed [facility] HPV 2010-07-26 00:00:00 Completed [facility] HPV 2010-07-26 00:00:00 Completed [facility] HPV 2010-07-26 00:00:00 Completed [facility] HPV 2010-07-26 00:00:00 Completed [facility] HPV 2010-07-26 00:00:00 Completed [facility] HPV 2010-07-26 00:00:00 Completed [facility] HPV 2010-07-26 00:00:00 Completed [facility] HPV 2010-07-26 00:00:00 Completed [facility] HPV 2010-07-26 00:00:00 Completed [facility] HPV 2010-07-26 00:00:00 Completed [facility] HPV 2010-07-26 00:00:00 Completed [facility] HPV 2010-07-26 00:00:00 Completed [facility] HPV 2010-07-26 00:00:00 Completed [facility] HPV 2010-07-26 00:00:00 Completed [facility] HPV 2010-07-26 00:00:00 Completed [facility] HPV 2010-07-26 00:00:00 Completed [facility] HPV 2010-07-26 00:00:00 Completed [facility] HPV 2010-07-26 00:00:00 Completed [facility] HPV 2010-07-26 00:00:00 Completed [facility] HPV 2010-07-26 00:00:00 Completed [facility] HPV 2010-07-26 00:00:00 Completed [facility] HPV 2010-07-26 00:00:00 Completed [facility] HPV 2010-07-26 00:00:00 Completed [facility] HPV 2010-07-26 00:00:00 Completed [facility] HPV 2010-07-26 00:00:00 Completed [facility] HPV 2010-07-26 00:00:00 Completed [facility] HPV 2010-07-26 00:00:00 Completed [facility] HPV 2010-07-26 00:00:00 Completed [facility] HPV 2010-07-26 00:00:00 Completed [facility] HPV 2010-07-26 00:00:00 Completed [facility] HPV 2010-07-26 00:00:00 Completed [facility] HPV 2010-07-26 00:00:00 Completed [facility] HPV 2010-07-26 00:00:00 Completed [facility] HPV 2010-07-26 00:00:00 Completed [facility] HPV 2010-07-26 00:00:00 Completed [facility] HPV 2010-07-26 00:00:00 Completed [facility] HPV 2010-06-20 00:00:00 Completed [facility] HPV 2010-06-20 00:00:00 Completed [facility] HPV 2010-06-20 00:00:00 Completed [facility] HPV 2010-06-20 00:00:00 Completed [facility] HPV 2010-06-20 00:00:00 Completed [facility] HPV 2010-06-20 00:00:00 Completed [facility] HPV 2010-06-20 00:00:00 Completed [facility] HPV 2010-06-20 00:00:00 Completed [facility] HPV 2010-06-20 00:00:00 Completed [facility] HPV 2010-06-20 00:00:00 Completed [facility] HPV 2010-06-20 00:00:00 Completed [facility] HPV 2010-06-20 00:00:00 Completed [facility] HPV 2010-06-20 00:00:00 Completed [facility] HPV 2010-06-20 00:00:00 Completed [facility] HPV 2010-06-20 00:00:00 Completed [facility] HPV 2010-06-20 00:00:00 Completed [facility] HPV 2010-06-20 00:00:00 Completed [facility] HPV 2010-06-20 00:00:00 Completed [facility] HPV 2010-06-20 00:00:00 Completed [facility] HPV 2010-06-20 00:00:00 Completed [facility] HPV 2010-06-20 00:00:00 Completed [facility] HPV 2010-06-20 00:00:00 Completed [facility] HPV 2010-06-20 00:00:00 Completed [facility] HPV 2010-06-20 00:00:00 Completed [facility] HPV 2010-06-20 00:00:00 Completed [facility] HPV 2010-06-20 00:00:00 Completed [facility] HPV 2010-06-20 00:00:00 Completed [facility] HPV 2010-06-20 00:00:00 Completed [facility] HPV 2010-06-20 00:00:00 Completed [facility] HPV 2010-06-20 00:00:00 Completed [facility] HPV 2010-06-20 00:00:00 Completed [facility] HPV 2010-06-20 00:00:00 Completed [facility] HPV 2010-06-20 00:00:00 Completed [facility] HPV 2010-06-20 00:00:00 Completed [facility] HPV 2010-06-20 00:00:00 Completed [facility] HPV 2010-06-20 00:00:00 Completed [facility] HPV 2010-06-20 00:00:00 Completed [facility] HPV 2010-06-20 00:00:00 Completed [facility] HPV 2010-06-20 00:00:00 Completed [facility] HPV 2010-06-20 00:00:00 Completed [facility] HPV 2010-06-20 00:00:00 Completed [facility] HPV 2010-06-20 00:00:00 Completed [facility] HPV 2010-06-20 00:00:00 Completed [facility] HPV 2010-06-20 00:00:00 Completed [facility] HPV 2010-06-20 00:00:00 Completed [facility] HPV 2010-06-20 00:00:00 Completed [facility] HPV 2010-06-20 00:00:00 Completed [facility] HPV 2010-06-20 00:00:00 Completed [facility] HPV 2010-06-20 00:00:00 Completed [facility] HPV 2010-06-20 00:00:00 Completed [facility] HPV 2010-06-20 00:00:00 Completed [facility] HPV 2010-06-20 00:00:00 Completed [facility] HPV 2010-06-20 00:00:00 Completed [facility] HPV 2010-06-20 00:00:00 Completed [facility] HPV 2010-06-20 00:00:00 Completed [facility] HPV 2010-06-20 00:00:00 Completed [facility] HPV 2010-06-20 00:00:00 Completed [facility] HPV 2010-06-20 00:00:00 Completed [facility] HPV 2010-06-20 00:00:00 Completed [facility] HPV 2010-06-20 00:00:00 Completed [facility] HPV 2010-06-20 00:00:00 Completed [facility] HPV 2010-06-20 00:00:00 Completed [facility] HPV 2010-06-20 00:00:00 Completed [facility] HPV 2010-06-20 00:00:00 Completed [facility] HPV 2010-06-20 00:00:00 Completed [facility] HPV 2010-06-20 00:00:00 Completed [facility] HPV 2010-06-20 00:00:00 Completed [facility] HPV 2010-06-20 00:00:00 Completed [facility] HPV 2010-06-20 00:00:00 Completed [facility] HPV 2010-06-20 00:00:00 Completed [facility] HPV 2010-06-20 00:00:00 Completed [facility] HPV 2010-06-20 00:00:00 Completed [facility] HPV 2010-06-20 00:00:00 Completed [facility] HPV 2010-06-20 00:00:00 Completed [facility] HPV 2010-06-20 00:00:00 Completed [facility] Varicella (varivax)(chicken pox) 2010-06-20 00:00:00 Completed [facility] TDAP 2010-06-20 00:00:00 Completed [facility] Meningococcal Polysaccharide (groups A, C, Y and W-135) conjugate vaccine (MCV4P) 2010-06-20 00:00:00 Completed [facility] DTaP, Unspecified Formulation 2010-06-20 00:00:00 Completed [facility] HPV 2010-06-20 00:00:00 Completed [facility] Varicella (varivax)(chicken pox) 2010-06-20 00:00:00 Completed [facility] TDAP 2010-06-20 00:00:00 Completed [facility] Meningococcal Polysaccharide (groups A, C, Y and W-135) conjugate vaccine (MCV4P) 2010-06-20 00:00:00 Completed [facility] DTaP, Unspecified Formulation 2010-06-20 00:00:00 Completed [facility] HPV 2010-06-20 00:00:00 Completed [facility] Varicella (varivax)(chicken pox) 2010-06-20 00:00:00 Completed [facility] TDAP 2010-06-20 00:00:00 Completed [facility] Meningococcal Polysaccharide (groups A, C, Y and W-135) conjugate vaccine (MCV4P) 2010-06-20 00:00:00 Completed [facility] DTaP, Unspecified Formulation 2010-06-20 00:00:00 Completed [facility] HPV 2010-06-20 00:00:00 Completed [facility] Varicella (varivax)(chicken pox) 2010-06-20 00:00:00 Completed [facility] TDAP 2010-06-20 00:00:00 Completed [facility] Meningococcal Polysaccharide (groups A, C, Y and W-135) conjugate vaccine (MCV4P) 2010-06-20 00:00:00 Completed [facility] DTaP, Unspecified Formulation 2010-06-20 00:00:00 Completed [facility] HPV 2010-06-20 00:00:00 Completed [facility] Varicella (varivax)(chicken pox) 2010-06-20 00:00:00 Completed [facility] TDAP 2010-06-20 00:00:00 Completed [facility] Meningococcal Polysaccharide (groups A, C, Y and W-135) conjugate vaccine (MCV4P) 2010-06-20 00:00:00 Completed [facility] DTaP, Unspecified Formulation 2010-06-20 00:00:00 Completed [facility] HPV 2010-06-20 00:00:00 Completed [facility] Varicella (varivax)(chicken pox) 2010-06-20 00:00:00 Completed [facility] TDAP 2010-06-20 00:00:00 Completed [facility] Meningococcal Polysaccharide (groups A, C, Y and W-135) conjugate vaccine (MCV4P) 2010-06-20 00:00:00 Completed [facility] DTaP, Unspecified Formulation 2010-06-20 00:00:00 Completed [facility] HPV 2010-06-20 00:00:00 Completed [facility] Varicella (varivax)(chicken pox) 2010-06-20 00:00:00 Completed [facility] TDAP 2010-06-20 00:00:00 Completed [facility] Meningococcal Polysaccharide (groups A, C, Y and W-135) conjugate vaccine (MCV4P) 2010-06-20 00:00:00 Completed [facility] DTaP, Unspecified Formulation 2010-06-20 00:00:00 Completed [facility] IPV 2001-05-21 00:00:00 Completed [facility] MMR 2001-05-21 00:00:00 Completed [facility] HIB 4 Dose Schedule 2001-05-21 00:00:00 Completed [facility] DTaP, Unspecified Formulation 2001-05-21 00:00:00 Completed [facility] IPV 2001-05-21 00:00:00 Completed [facility] MMR 2001-05-21 00:00:00 Completed [facility] HIB 4 Dose Schedule 2001-05-21 00:00:00 Completed [facility] DTaP, Unspecified Formulation 2001-05-21 00:00:00 Completed [facility] IPV 2001-05-21 00:00:00 Completed [facility] MMR 2001-05-21 00:00:00 Completed [facility] HIB 4 Dose Schedule 2001-05-21 00:00:00 Completed [facility] DTaP, Unspecified Formulation 2001-05-21 00:00:00 Completed [facility] IPV 2001-05-21 00:00:00 Completed [facility] MMR 2001-05-21 00:00:00 Completed [facility] HIB 4 Dose Schedule 2001-05-21 00:00:00 Completed [facility] DTaP, Unspecified Formulation 2001-05-21 00:00:00 Completed [facility] IPV 2001-05-21 00:00:00 Completed [facility] MMR 2001-05-21 00:00:00 Completed [facility] HIB 4 Dose Schedule 2001-05-21 00:00:00 Completed [facility] DTaP, Unspecified Formulation 2001-05-21 00:00:00 Completed [facility] IPV 2001-05-21 00:00:00 Completed [facility] MMR 2001-05-21 00:00:00 Completed [facility] HIB 4 Dose Schedule 2001-05-21 00:00:00 Completed [facility] DTaP, Unspecified Formulation 2001-05-21 00:00:00 Completed [facility] IPV 2001-05-21 00:00:00 Completed [facility] MMR 2001-05-21 00:00:00 Completed [facility] HIB 4 Dose Schedule 2001-05-21 00:00:00 Completed [facility] DTaP, Unspecified Formulation 2001-05-21 00:00:00 Completed [facility] Varicella (varivax)(chicken pox) 1999-06-10 00:00:00 Completed [facility] Varicella (varivax)(chicken pox) 1999-06-10 00:00:00 Completed [facility] Varicella (varivax)(chicken pox) 1999-06-10 00:00:00 Completed [facility] Varicella (varivax)(chicken pox) 1999-06-10 00:00:00 Completed [facility] Varicella (varivax)(chicken pox) 1999-06-10 00:00:00 Completed [facility] Varicella (varivax)(chicken pox) 1999-06-10 00:00:00 Completed [facility] Varicella (varivax)(chicken pox) 1999-06-10 00:00:00 Completed [facility] MMR 1999-06-09 00:00:00 Completed [facility] MMR 1999-06-09 00:00:00 Completed [facility] MMR 1999-06-09 00:00:00 Completed [facility] MMR 1999-06-09 00:00:00 Completed [facility] MMR 1999-06-09 00:00:00 Completed [facility] MMR 1999-06-09 00:00:00 Completed [facility] MMR 1999-06-09 00:00:00 Completed [facility] Pneumococcal 7 Conjugate, PCV7 (Prevnar7) 1999-06-05 00:00:00 Completed [facility] HIB 4 Dose Schedule 1999-06-05 00:00:00 Completed [facility] Hep B, Adol or Pedi Dosage 1999-06-05 00:00:00 Completed [facility] DTaP, Unspecified Formulation 1999-06-05 00:00:00 Completed [facility] Pneumococcal 7 Conjugate, PCV7 (Prevnar7) 1999-06-05 00:00:00 Completed [facility] HIB 4 Dose Schedule 1999-06-05 00:00:00 Completed [facility] Hep B, Adol or Pedi Dosage 1999-06-05 00:00:00 Completed [facility] DTaP, Unspecified Formulation 1999-06-05 00:00:00 Completed [facility] Pneumococcal 7 Conjugate, PCV7 (Prevnar7) 1999-06-05 00:00:00 Completed [facility] HIB 4 Dose Schedule 1999-06-05 00:00:00 Completed [facility] Hep B, Adol or Pedi Dosage 1999-06-05 00:00:00 Completed [facility] DTaP, Unspecified Formulation 1999-06-05 00:00:00 Completed [facility] Pneumococcal 7 Conjugate, PCV7 (Prevnar7) 1999-06-05 00:00:00 Completed [facility] HIB 4 Dose Schedule 1999-06-05 00:00:00 Completed [facility] Hep B, Adol or Pedi Dosage 1999-06-05 00:00:00 Completed [facility] DTaP, Unspecified Formulation 1999-06-05 00:00:00 Completed [facility] Pneumococcal 7 Conjugate, PCV7 (Prevnar7) 1999-06-05 00:00:00 Completed [facility] HIB 4 Dose Schedule 1999-06-05 00:00:00 Completed [facility] Hep B, Adol or Pedi Dosage 1999-06-05 00:00:00 Completed [facility] DTaP, Unspecified Formulation 1999-06-05 00:00:00 Completed [facility] Pneumococcal 7 Conjugate, PCV7 (Prevnar7) 1999-06-05 00:00:00 Completed [facility] HIB 4 Dose Schedule 1999-06-05 00:00:00 Completed [facility] Hep B, Adol or Pedi Dosage 1999-06-05 00:00:00 Completed [facility] DTaP, Unspecified Formulation 1999-06-05 00:00:00 Completed [facility] Pneumococcal 7 Conjugate, PCV7 (Prevnar7) 1999-06-05 00:00:00 Completed [facility] HIB 4 Dose Schedule 1999-06-05 00:00:00 Completed [facility] Hep B, Adol or Pedi Dosage 1999-06-05 00:00:00 Completed [facility] DTaP, Unspecified Formulation 1999-06-05 00:00:00 Completed [facility] IPV 1997 00:00:00 Completed [facility] IPV 1997 00:00:00 Completed [facility] IPV 1997 00:00:00 Completed [facility] IPV 1997 00:00:00 Completed [facility] IPV 1997 00:00:00 Completed [facility] IPV 1997 00:00:00 Completed [facility] IPV 1997 00:00:00 Completed [facility] Pneumococcal 7 Conjugate, PCV7 (Prevnar7) 1997 00:00:00 Completed [facility] DTaP, Unspecified Formulation 1997 00:00:00 Completed [facility] Pneumococcal 7 Conjugate, PCV7 (Prevnar7) 1997 00:00:00 Completed [facility] DTaP, Unspecified Formulation 1997 00:00:00 Completed [facility] Pneumococcal 7 Conjugate, PCV7 (Prevnar7) 1997 00:00:00 Completed [facility] DTaP, Unspecified Formulation 1997 00:00:00 Completed [facility] Pneumococcal 7 Conjugate, PCV7 (Prevnar7) 1997 00:00:00 Completed [facility] DTaP, Unspecified Formulation 1997 00:00:00 Completed [facility] Pneumococcal 7 Conjugate, PCV7 (Prevnar7) 1997 00:00:00 Completed [facility] DTaP, Unspecified Formulation 1997 00:00:00 Completed [facility] Pneumococcal 7 Conjugate, PCV7 (Prevnar7) 1997 00:00:00 Completed [facility] DTaP, Unspecified Formulation 1997 00:00:00 Completed [facility] Pneumococcal 7 Conjugate, PCV7 (Prevnar7) 1997 00:00:00 Completed [facility] DTaP, Unspecified Formulation 1997 00:00:00 Completed [facility] IPV 1997 00:00:00 Completed [facility] Pneumococcal 7 Conjugate, PCV7 (Prevnar7) 1997 00:00:00 Completed [facility] HIB 4 Dose Schedule 1997 00:00:00 Completed [facility] Hep B, Adol or Pedi Dosage 1997 00:00:00 Completed [facility] DTaP, Unspecified Formulation 1997 00:00:00 Completed [facility] IPV 1997 00:00:00 Completed [facility] Pneumococcal 7 Conjugate, PCV7 (Prevnar7) 1997 00:00:00 Completed [facility] HIB 4 Dose Schedule 1997 00:00:00 Completed [facility] Hep B, Adol or Pedi Dosage 1997 00:00:00 Completed [facility] DTaP, Unspecified Formulation 1997 00:00:00 Completed [facility] IPV 1997 00:00:00 Completed [facility] Pneumococcal 7 Conjugate, PCV7 (Prevnar7) 1997 00:00:00 Completed [facility] HIB 4 Dose Schedule 1997 00:00:00 Completed [facility] Hep B, Adol or Pedi Dosage 1997 00:00:00 Completed [facility] DTaP, Unspecified Formulation 1997 00:00:00 Completed [facility] IPV 1997 00:00:00 Completed [facility] Pneumococcal 7 Conjugate, PCV7 (Prevnar7) 1997 00:00:00 Completed [facility] HIB 4 Dose Schedule 1997 00:00:00 Completed [facility] Hep B, Adol or Pedi Dosage 1997 00:00:00 Completed [facility] DTaP, Unspecified Formulation 1997 00:00:00 Completed [facility] IPV 1997 00:00:00 Completed [facility] Pneumococcal 7 Conjugate, PCV7 (Prevnar7) 1997 00:00:00 Completed [facility] HIB 4 Dose Schedule 1997 00:00:00 Completed [facility] Hep B, Adol or Pedi Dosage 1997 00:00:00 Completed [facility] DTaP, Unspecified Formulation 1997 00:00:00 Completed [facility] IPV 1997 00:00:00 Completed [facility] Pneumococcal 7 Conjugate, PCV7 (Prevnar7) 1997 00:00:00 Completed [facility] HIB 4 Dose Schedule 1997 00:00:00 Completed [facility] Hep B, Adol or Pedi Dosage 1997 00:00:00 Completed [facility] DTaP, Unspecified Formulation 1997 00:00:00 Completed [facility] IPV 1997 00:00:00 Completed [facility] Pneumococcal 7 Conjugate, PCV7 (Prevnar7) 1997 00:00:00 Completed [facility] HIB 4 Dose Schedule 1997 00:00:00 Completed [facility] Hep B, Adol or Pedi Dosage 1997 00:00:00 Completed [facility] DTaP, Unspecified Formulation 1997 00:00:00 Completed [facility] IPV 1997 00:00:00 Completed [facility] IPV 1997 00:00:00 Completed [facility] IPV 1997 00:00:00 Completed [facility] IPV 1997 00:00:00 Completed [facility] IPV 1997 00:00:00 Completed [facility] IPV 1997 00:00:00 Completed [facility] IPV 1997 00:00:00 Completed [facility] Pneumococcal 7 Conjugate, PCV7 (Prevnar7) 1997 00:00:00 Completed [facility] HIB 4 Dose Schedule 1997 00:00:00 Completed [facility] Hep B, Adol or Pedi Dosage 1997 00:00:00 Completed [facility] DTaP, Unspecified Formulation 1997 00:00:00 Completed [facility] Pneumococcal 7 Conjugate, PCV7 (Prevnar7) 1997 00:00:00 Completed [facility] HIB 4 Dose Schedule 1997 00:00:00 Completed [facility] Hep B, Adol or Pedi Dosage 1997 00:00:00 Completed [facility] DTaP, Unspecified Formulation 1997 00:00:00 Completed [facility] Pneumococcal 7 Conjugate, PCV7 (Prevnar7) 1997 00:00:00 Completed [facility] HIB 4 Dose Schedule 1997 00:00:00 Completed [facility] Hep B, Adol or Pedi Dosage 1997 00:00:00 Completed [facility] DTaP, Unspecified Formulation 1997 00:00:00 Completed [facility] Pneumococcal 7 Conjugate, PCV7 (Prevnar7) 1997 00:00:00 Completed [facility] HIB 4 Dose Schedule 1997 00:00:00 Completed [facility] Hep B, Adol or Pedi Dosage 1997 00:00:00 Completed [facility] DTaP, Unspecified Formulation 1997 00:00:00 Completed [facility] Pneumococcal 7 Conjugate, PCV7 (Prevnar7) 1997 00:00:00 Completed [facility] HIB 4 Dose Schedule 1997 00:00:00 Completed [facility] Hep B, Adol or Pedi Dosage 1997 00:00:00 Completed [facility] DTaP, Unspecified Formulation 1997 00:00:00 Completed [facility] Pneumococcal 7 Conjugate, PCV7 (Prevnar7) 1997 00:00:00 Completed [facility] HIB 4 Dose Schedule 1997 00:00:00 Completed [facility] Hep B, Adol or Pedi Dosage 1997 00:00:00 Completed [facility] DTaP, Unspecified Formulation 1997 00:00:00 Completed [facility] Pneumococcal 7 Conjugate, PCV7 (Prevnar7) 1997 00:00:00 Completed [facility] HIB 4 Dose Schedule 1997 00:00:00 Completed [facility] Hep B, Adol or Pedi Dosage 1997 00:00:00 Completed [facility] DTaP, Unspecified Formulation 1997 00:00:00 Completed [facility] TDAP Unknown Completed [facility] Varicella (varivax)(chicken pox) Unknown Completed [facility] TDAP Unknown Completed [facility] Varicella (varivax)(chicken pox) Unknown Completed [facility] Influenza Virus Vaccine Quad .5 mL IM 6+ MO (FLUZONE/FLULAVAL/FL UARIX) Unknown Completed [facility] TDAP (ADACEL) VACCINE Unknown Completed [facility] HPV Unknown Completed [facility] HPV Unknown Completed [facility] Influenza Virus Vaccine Quad IM, Preserv and ABX Free 6 MO-64 YRS (FLUCELVAX) Unknown Completed [facility] Influenza Virus Vaccine Quad IM, Preserv and ABX Free 6 MO-64 YRS (FLUCELVAX) Unknown Completed [facility] TDAP Unknown Completed [facility] Varicella (varivax)(chicken pox) Unknown Completed [facility] Varicella (varivax)(chicken pox) Unknown Completed [facility] TDAP Unknown Completed [facility] IPV Unknown Completed [facility] IPV Unknown Completed [facility] IPV Unknown Completed [facility] IPV Unknown Completed [facility] Pneumococcal 7 Conjugate, PCV7 (Prevnar7) Unknown Completed [facility] Pneumococcal 7 Conjugate, PCV7 (Prevnar7) Unknown Completed [facility] Pneumococcal 7 Conjugate, PCV7 (Prevnar7) Unknown Completed [facility] Pneumococcal 7 Conjugate, PCV7 (Prevnar7) Unknown Completed [facility] MMR Unknown Completed [facility] MMR Unknown Completed [facility] Meningococcal Polysaccharide (groups A, C, Y and W-135) conjugate vaccine (MCV4P) Unknown Completed [facility] HIB 4 Dose Schedule Unknown Completed [facility] HIB 4 Dose Schedule Unknown Completed [facility] HIB 4 Dose Schedule Unknown Completed [facility] HIB 4 Dose Schedule Unknown Completed [facility] Hep B, Adol or Pedi Dosage Unknown Completed [facility] Hep B, Adol or Pedi Dosage Unknown Completed [facility] Hep B, Adol or Pedi Dosage Unknown Completed [facility] DTaP, Unspecified Formulation Unknown Completed [facility] DTaP, Unspecified Formulation Unknown Completed [facility] DTaP, Unspecified Formulation Unknown Completed [facility] DTaP, Unspecified Formulation Unknown Completed [facility] DTaP, Unspecified Formulation Unknown Completed [facility] DTaP, Unspecified Formulation Unknown Completed [facility] TDAP Unknown Completed [facility] Varicella (varivax)(chicken pox) Unknown Completed [facility] TDAP Unknown Completed [facility] Varicella (varivax)(chicken pox) Unknown Completed [facility] Influenza Virus Vaccine Quad .5 mL IM 6+ MO (FLUZONE/FLULAVAL/FL UARIX) Unknown Completed [facility] TDAP (ADACEL) VACCINE Unknown Completed [facility] HPV Unknown Completed [facility] HPV Unknown Completed [facility] Influenza Virus Vaccine Quad IM, Preserv and ABX Free 6 MO-64 YRS (FLUCELVAX) Unknown Completed [facility] Varicella (varivax)(chicken pox) Unknown Completed [facility] Varicella (varivax)(chicken pox) Unknown Completed [facility] TDAP Unknown Completed [facility] IPV Unknown Completed [facility] IPV Unknown Completed [facility] IPV Unknown Completed [facility] IPV Unknown Completed [facility] Pneumococcal 7 Conjugate, PCV7 (Prevnar7) Unknown Completed [facility] Pneumococcal 7 Conjugate, PCV7 (Prevnar7) Unknown Completed [facility] Pneumococcal 7 Conjugate, PCV7 (Prevnar7) Unknown Completed [facility] Pneumococcal 7 Conjugate, PCV7 (Prevnar7) Unknown Completed [facility] MMR Unknown Completed [facility] MMR Unknown Completed [facility] Meningococcal Polysaccharide (groups A, C, Y and W-135) conjugate vaccine (MCV4P) Unknown Completed [facility] HIB 4 Dose Schedule Unknown Completed [facility] HIB 4 Dose Schedule Unknown Completed [facility] HIB 4 Dose Schedule Unknown Completed [facility] HIB 4 Dose Schedule Unknown Completed [facility] Hep B, Adol or Pedi Dosage Unknown Completed [facility] Hep B, Adol or Pedi Dosage Unknown Completed [facility] Hep B, Adol or Pedi Dosage Unknown Completed [facility] DTaP, Unspecified Formulation Unknown Completed [facility] DTaP, Unspecified Formulation Unknown Completed [facility] DTaP, Unspecified Formulation Unknown Completed [facility] DTaP, Unspecified Formulation Unknown Completed [facility] DTaP, Unspecified Formulation Unknown Completed [facility] DTaP, Unspecified Formulation Unknown Completed [facility] TDAP Unknown Completed [facility] Varicella (varivax)(chicken pox) Unknown Completed [facility] TDAP Unknown Completed [facility] Varicella (varivax)(chicken pox) Unknown Completed [facility] Influenza Virus Vaccine Quad .5 mL IM 6+ MO (FLUZONE/FLULAVAL/FL UARIX) Unknown Completed [facility] TDAP (ADACEL) VACCINE Unknown Completed [facility] HPV Unknown Completed [facility] HPV Unknown Completed [facility] Influenza Virus Vaccine Quad IM, Preserv and ABX Free 6 MO-64 YRS (FLUCELVAX) Unknown Completed [facility] Varicella (varivax)(chicken pox) Unknown Completed [facility] Varicella (varivax)(chicken pox) Unknown Completed [facility] TDAP Unknown Completed [facility] IPV Unknown Completed [facility] IPV Unknown Completed [facility] IPV Unknown Completed [facility] IPV Unknown Completed [facility] Pneumococcal 7 Conjugate, PCV7 (Prevnar7) Unknown Completed [facility] Pneumococcal 7 Conjugate, PCV7 (Prevnar7) Unknown Completed [facility] Pneumococcal 7 Conjugate, PCV7 (Prevnar7) Unknown Completed [facility] Pneumococcal 7 Conjugate, PCV7 (Prevnar7) Unknown Completed [facility] MMR Unknown Completed [facility] MMR Unknown Completed [facility] Meningococcal Polysaccharide (groups A, C, Y and W-135) conjugate vaccine (MCV4P) Unknown Completed [facility] HIB 4 Dose Schedule Unknown Completed [facility] HIB 4 Dose Schedule Unknown Completed [facility] HIB 4 Dose Schedule Unknown Completed [facility] HIB 4 Dose Schedule Unknown Completed [facility] Hep B, Adol or Pedi Dosage Unknown Completed [facility] Hep B, Adol or Pedi Dosage Unknown Completed [facility] Hep B, Adol or Pedi Dosage Unknown Completed [facility] DTaP, Unspecified Formulation Unknown Completed [facility] DTaP, Unspecified Formulation Unknown Completed [facility] DTaP, Unspecified Formulation Unknown Completed [facility] DTaP, Unspecified Formulation Unknown Completed [facility] DTaP, Unspecified Formulation Unknown Completed [facility] DTaP, Unspecified Formulation Unknown Completed [facility] TDAP Unknown Completed [facility] Varicella (varivax)(chicken pox) Unknown Completed [facility] TDAP Unknown Completed [facility] Varicella (varivax)(chicken pox) Unknown Completed [facility] Influenza Virus Vaccine Quad .5 mL IM 6+ MO (FLUZONE/FLULAVAL/FL UARIX) Unknown Completed [facility] TDAP (ADACEL) VACCINE Unknown Completed [facility] HPV Unknown Completed [facility] HPV Unknown Completed [facility] Varicella (varivax)(chicken pox) Unknown Completed [facility] Varicella (varivax)(chicken pox) Unknown Completed [facility] TDAP Unknown Completed [facility] IPV Unknown Completed [facility] IPV Unknown Completed [facility] IPV Unknown Completed [facility] IPV Unknown Completed [facility] Pneumococcal 7 Conjugate, PCV7 (Prevnar7) Unknown Completed [facility] Pneumococcal 7 Conjugate, PCV7 (Prevnar7) Unknown Completed [facility] Pneumococcal 7 Conjugate, PCV7 (Prevnar7) Unknown Completed [facility] Pneumococcal 7 Conjugate, PCV7 (Prevnar7) Unknown Completed [facility] MMR Unknown Completed [facility] MMR Unknown Completed [facility] Meningococcal Polysaccharide (groups A, C, Y and W-135) conjugate vaccine (MCV4P) Unknown Completed [facility] HIB 4 Dose Schedule Unknown Completed [facility] HIB 4 Dose Schedule Unknown Completed [facility] HIB 4 Dose Schedule Unknown Completed [facility] HIB 4 Dose Schedule Unknown Completed [facility] Hep B, Adol or Pedi Dosage Unknown Completed [facility] Hep B, Adol or Pedi Dosage Unknown Completed [facility] Hep B, Adol or Pedi Dosage Unknown Completed [facility] DTaP, Unspecified Formulation Unknown Completed [facility] DTaP, Unspecified Formulation Unknown Completed [facility] DTaP, Unspecified Formulation Unknown Completed [facility] DTaP, Unspecified Formulation Unknown Completed [facility] DTaP, Unspecified Formulation Unknown Completed [facility] DTaP, Unspecified Formulation Unknown Completed [facility] TDAP Unknown Completed [facility] Varicella (varivax)(chicken pox) Unknown Completed [facility] TDAP Unknown Completed [facility] Varicella (varivax)(chicken pox) Unknown Completed [facility] Influenza Virus Vaccine Quad .5 mL IM 6+ MO (FLUZONE/FLULAVAL/FL UARIX) Unknown Completed [facility] TDAP (ADACEL) VACCINE Unknown Completed [facility] HPV Unknown Completed [facility] HPV Unknown Completed [facility] Varicella (varivax)(chicken pox) Unknown Completed [facility] Varicella (varivax)(chicken pox) Unknown Completed [facility] TDAP Unknown Completed [facility] IPV Unknown Completed [facility] IPV Unknown Completed [facility] IPV Unknown Completed [facility] IPV Unknown Completed [facility] Pneumococcal 7 Conjugate, PCV7 (Prevnar7) Unknown Completed [facility] Pneumococcal 7 Conjugate, PCV7 (Prevnar7) Unknown Completed [facility] Pneumococcal 7 Conjugate, PCV7 (Prevnar7) Unknown Completed [facility] Pneumococcal 7 Conjugate, PCV7 (Prevnar7) Unknown Completed [facility] MMR Unknown Completed [facility] MMR Unknown Completed [facility] Meningococcal Polysaccharide (groups A, C, Y and W-135) conjugate vaccine (MCV4P) Unknown Completed [facility] HIB 4 Dose Schedule Unknown Completed [facility] HIB 4 Dose Schedule Unknown Completed [facility] HIB 4 Dose Schedule Unknown Completed [facility] HIB 4 Dose Schedule Unknown Completed [facility] Hep B, Adol or Pedi Dosage Unknown Completed [facility] Hep B, Adol or Pedi Dosage Unknown Completed [facility] Hep B, Adol or Pedi Dosage Unknown Completed [facility] DTaP, Unspecified Formulation Unknown Completed [facility] DTaP, Unspecified Formulation Unknown Completed [facility] DTaP, Unspecified Formulation Unknown Completed [facility] DTaP, Unspecified Formulation Unknown Completed [facility] DTaP, Unspecified Formulation Unknown Completed [facility] DTaP, Unspecified Formulation Unknown Completed [facility] TDAP Unknown Completed [facility] Varicella (varivax)(chicken pox) Unknown Completed [facility] TDAP Unknown Completed [facility] Varicella (varivax)(chicken pox) Unknown Completed [facility] Influenza Virus Vaccine Quad .5 mL IM 6+ MO (FLUZONE/FLULAVAL/FL UARIX) Unknown Completed [facility] TDAP (ADACEL) VACCINE Unknown Completed [facility] HPV Unknown Completed [facility] HPV Unknown Completed [facility] Varicella (varivax)(chicken pox) Unknown Completed [facility] Varicella (varivax)(chicken pox) Unknown Completed [facility] TDAP Unknown Completed [facility] IPV Unknown Completed [facility] IPV Unknown Completed [facility] IPV Unknown Completed [facility] IPV Unknown Completed [facility] Pneumococcal 7 Conjugate, PCV7 (Prevnar7) Unknown Completed [facility] Pneumococcal 7 Conjugate, PCV7 (Prevnar7) Unknown Completed [facility] Pneumococcal 7 Conjugate, PCV7 (Prevnar7) Unknown Completed [facility] Pneumococcal 7 Conjugate, PCV7 (Prevnar7) Unknown Completed [facility] MMR Unknown Completed [facility] MMR Unknown Completed [facility] Meningococcal Polysaccharide (groups A, C, Y and W-135) conjugate vaccine (MCV4P) Unknown Completed [facility] HIB 4 Dose Schedule Unknown Completed [facility] HIB 4 Dose Schedule Unknown Completed [facility] HIB 4 Dose Schedule Unknown Completed [facility] HIB 4 Dose Schedule Unknown Completed [facility] Hep B, Adol or Pedi Dosage Unknown Completed [facility] Hep B, Adol or Pedi Dosage Unknown Completed [facility] Hep B, Adol or Pedi Dosage Unknown Completed [facility] DTaP, Unspecified Formulation Unknown Completed [facility] DTaP, Unspecified Formulation Unknown Completed [facility] DTaP, Unspecified Formulation Unknown Completed [facility] DTaP, Unspecified Formulation Unknown Completed [facility] DTaP, Unspecified Formulation Unknown Completed [facility] DTaP, Unspecified Formulation Unknown Completed [facility] TDAP Unknown Completed [facility] Varicella (varivax)(chicken pox) Unknown Completed [facility] TDAP Unknown Completed [facility] Varicella (varivax)(chicken pox) Unknown Completed [facility] Influenza Virus Vaccine Quad .5 mL IM 6+ MO (FLUZONE/FLULAVAL/FL UARIX) Unknown Completed [facility] TDAP (ADACEL) VACCINE Unknown Completed [facility] HPV Unknown Completed [facility] HPV Unknown Completed [facility] Varicella (varivax)(chicken pox) Unknown Completed [facility] Varicella (varivax)(chicken pox) Unknown Completed [facility] TDAP Unknown Completed [facility] IPV Unknown Completed [facility] IPV Unknown Completed [facility] IPV Unknown Completed [facility] IPV Unknown Completed [facility] Pneumococcal 7 Conjugate, PCV7 (Prevnar7) Unknown Completed [facility] Pneumococcal 7 Conjugate, PCV7 (Prevnar7) Unknown Completed [facility] Pneumococcal 7 Conjugate, PCV7 (Prevnar7) Unknown Completed [facility] Pneumococcal 7 Conjugate, PCV7 (Prevnar7) Unknown Completed [facility] MMR Unknown Completed [facility] MMR Unknown Completed [facility] Meningococcal Polysaccharide (groups A, C, Y and W-135) conjugate vaccine (MCV4P) Unknown Completed [facility] HIB 4 Dose Schedule Unknown Completed [facility] HIB 4 Dose Schedule Unknown Completed [facility] HIB 4 Dose Schedule Unknown Completed [facility] HIB 4 Dose Schedule Unknown Completed [facility] Hep B, Adol or Pedi Dosage Unknown Completed [facility] Hep B, Adol or Pedi Dosage Unknown Completed [facility] Hep B, Adol or Pedi Dosage Unknown Completed [facility] DTaP, Unspecified Formulation Unknown Completed [facility] DTaP, Unspecified Formulation Unknown Completed [facility] DTaP, Unspecified Formulation Unknown Completed [facility] DTaP, Unspecified Formulation Unknown Completed [facility] DTaP, Unspecified Formulation Unknown Completed [facility] DTaP, Unspecified Formulation Unknown Completed [facility] TDAP Unknown Completed [facility] Varicella (varivax)(chicken pox) Unknown Completed [facility] TDAP Unknown Completed [facility] Varicella (varivax)(chicken pox) Unknown Completed [facility] Influenza Virus Vaccine Quad .5 mL IM 6+ MO (FLUZONE/FLULAVAL/FL UARIX) Unknown Completed [facility] TDAP (ADACEL) VACCINE Unknown Completed [facility] HPV Unknown Completed [facility] HPV Unknown Completed [facility] Varicella (varivax)(chicken pox) Unknown Completed [facility] Varicella (varivax)(chicken pox) Unknown Completed [facility] TDAP Unknown Completed [facility] IPV Unknown Completed [facility] IPV Unknown Completed [facility] IPV Unknown Completed [facility] IPV Unknown Completed [facility] Pneumococcal 7 Conjugate, PCV7 (Prevnar7) Unknown Completed [facility] Pneumococcal 7 Conjugate, PCV7 (Prevnar7) Unknown Completed [facility] Pneumococcal 7 Conjugate, PCV7 (Prevnar7) Unknown Completed [facility] Pneumococcal 7 Conjugate, PCV7 (Prevnar7) Unknown Completed [facility] MMR Unknown Completed [facility] MMR Unknown Completed [facility] Meningococcal Polysaccharide (groups A, C, Y and W-135) conjugate vaccine (MCV4P) Unknown Completed [facility] HIB 4 Dose Schedule Unknown Completed [facility] HIB 4 Dose Schedule Unknown Completed [facility] HIB 4 Dose Schedule Unknown Completed [facility] HIB 4 Dose Schedule Unknown Completed [facility] Hep B, Adol or Pedi Dosage Unknown Completed [facility] Hep B, Adol or Pedi Dosage Unknown Completed [facility] Hep B, Adol or Pedi Dosage Unknown [facility] [place] DTaP, Unspecified Formulation Unknown Completed [facility] [place] DTaP, Unspecified Formulation Unknown Completed [facility] DTaP, Unspecified Formulation Unknown Completed [facility] DTaP, Unspecified Formulation Unknown Completed [facility] DTaP, Unspecified Formulation Unknown Completed [facility] DTaP, Unspecified Formulation Unknown Completed [facility] TDAP Unknown Completed [facility] Varicella (varivax)(chicken pox) Unknown Completed [facility] TDAP Unknown Completed [facility] Varicella (varivax)(chicken pox) Unknown Completed [facility] Influenza Virus Vaccine Quad .5 mL IM 6+ MO (FLUZONE/FLULAVAL/FL UARIX) Unknown Completed [facility] TDAP (ADACEL) VACCINE Unknown Completed [facility] HPV Unknown Completed [facility] HPV Unknown Completed [facility] Varicella (varivax)(chicken pox) Unknown Completed [facility] Varicella (varivax)(chicken pox) Unknown Completed [facility] TDAP Unknown Completed [facility] IPV Unknown Completed [facility] IPV Unknown Completed [facility] IPV Unknown Completed [facility] IPV Unknown Completed [facility] Pneumococcal 7 Conjugate, PCV7 (Prevnar7) Unknown Completed [facility] Pneumococcal 7 Conjugate, PCV7 (Prevnar7) Unknown Completed [facility] Pneumococcal 7 Conjugate, PCV7 (Prevnar7) Unknown Completed [facility] Pneumococcal 7 Conjugate, PCV7 (Prevnar7) Unknown Completed [facility] MMR Unknown Completed [facility] MMR Unknown Completed [facility] Meningococcal Polysaccharide (groups A, C, Y and W-135) conjugate vaccine (MCV4P) Unknown Completed [facility] HIB 4 Dose Schedule Unknown Completed [facility] HIB 4 Dose Schedule Unknown Completed [facility] HIB 4 Dose Schedule Unknown Completed [facility] HIB 4 Dose Schedule Unknown Completed [facility] Hep B, Adol or Pedi Dosage Unknown Completed [facility] Hep B, Adol or Pedi Dosage Unknown Completed [facility] Hep B, Adol or Pedi Dosage Unknown Completed [facility] [place] DTaP, Unspecified Formulation Unknown Completed [facility] DTaP, Unspecified Formulation Unknown Completed [facility] DTaP, Unspecified Formulation Unknown Completed [facility] DTaP, Unspecified Formulation Unknown Completed [facility] DTaP, Unspecified Formulation Unknown Completed [facility] DTaP, Unspecified Formulation Unknown Completed [facility] TDAP Unknown Completed [facility] Varicella (varivax)(chicken pox) Unknown Completed [facility] TDAP Unknown Completed [facility] Varicella (varivax)(chicken pox) Unknown Completed [facility] [place] Influenza Virus Vaccine Quad .5 mL IM 6+ MO (FLUZONE/FLULAVAL/FL UARIX) Unknown Completed [facility] TDAP (ADACEL) VACCINE Unknown Completed [facility] HPV Unknown Completed [facility] HPV Unknown Completed [facility] Varicella (varivax)(chicken pox) Unknown Completed [facility] Varicella (varivax)(chicken pox) Unknown Completed [facility] TDAP Unknown Completed [facility] IPV Unknown Completed [facility] IPV Unknown Completed [facility] IPV Unknown Completed [facility] IPV Unknown Completed [facility] Pneumococcal 7 Conjugate, PCV7 (Prevnar7) Unknown Completed [facility] Pneumococcal 7 Conjugate, PCV7 (Prevnar7) Unknown Completed [facility] Pneumococcal 7 Conjugate, PCV7 (Prevnar7) Unknown Completed [facility] Pneumococcal 7 Conjugate, PCV7 (Prevnar7) Unknown Completed [facility] MMR Unknown Completed [facility] MMR Unknown Completed [facility] Meningococcal Polysaccharide (groups A, C, Y and W-135) conjugate vaccine (MCV4P) Unknown Completed [facility] HIB 4 Dose Schedule Unknown Completed [facility] HIB 4 Dose Schedule Unknown Completed [facility] HIB 4 Dose Schedule Unknown Completed [facility] HIB 4 Dose Schedule Unknown Completed [facility] Hep B, Adol or Pedi Dosage Unknown Completed [facility] Hep B, Adol or Pedi Dosage Unknown Completed [facility] Hep B, Adol or Pedi Dosage Unknown Completed [facility] DTaP, Unspecified Formulation Unknown Completed [facility] DTaP, Unspecified Formulation Unknown Completed [facility] DTaP, Unspecified Formulation Unknown Completed [facility] DTaP, Unspecified Formulation Unknown Completed [facility] DTaP, Unspecified Formulation Unknown Completed [facility] DTaP, Unspecified Formulation Unknown Completed [facility] TDAP Unknown Completed [facility] Varicella (varivax)(chicken pox) Unknown Completed [facility] TDAP Unknown Completed [facility] [place] Varicella (varivax)(chicken pox) Unknown Completed [facility] [place] Influenza Virus Vaccine Quad .5 mL IM 6+ MO (FLUZONE/FLULAVAL/FL UARIX) Unknown Completed [facility] TDAP (ADACEL) VACCINE Unknown Completed [facility] HPV Unknown Completed [facility] HPV Unknown Completed [facility] Varicella (varivax)(chicken pox) Unknown Completed [facility] Varicella (varivax)(chicken pox) Unknown Completed [facility] TDAP Unknown Completed [facility] IPV Unknown Completed [facility] IPV Unknown Completed [facility] IPV Unknown Completed [facility] IPV Unknown Completed [facility] Pneumococcal 7 Conjugate, PCV7 (Prevnar7) Unknown Completed [facility] Pneumococcal 7 Conjugate, PCV7 (Prevnar7) Unknown Completed [facility] Pneumococcal 7 Conjugate, PCV7 (Prevnar7) Unknown Completed [facility] Pneumococcal 7 Conjugate, PCV7 (Prevnar7) Unknown Completed [facility] MMR Unknown Completed [facility] MMR Unknown Completed [facility] [place] Meningococcal Polysaccharide (groups A, C, Y and W-135) conjugate vaccine (MCV4P) Unknown Completed [facility] HIB 4 Dose Schedule Unknown Completed [facility] HIB 4 Dose Schedule Unknown Completed [facility] HIB 4 Dose Schedule Unknown Completed [facility] HIB 4 Dose Schedule Unknown Completed [facility] Hep B, Adol or Pedi Dosage Unknown Completed [facility] Hep B, Adol or Pedi Dosage Unknown Completed [facility] Hep B, Adol or Pedi Dosage Unknown Completed [facility] DTaP, Unspecified Formulation Unknown Completed [facility] DTaP, Unspecified Formulation Unknown Completed [facility] DTaP, Unspecified Formulation Unknown Completed [facility] DTaP, Unspecified Formulation Unknown Completed [facility] DTaP, Unspecified Formulation Unknown Completed [facility] DTaP, Unspecified Formulation Unknown Completed [facility] TDAP Unknown Completed [facility] Varicella (varivax)(chicken pox) Unknown Completed [facility] TDAP Unknown Completed [facility] Varicella (varivax)(chicken pox) Unknown Completed [facility] Influenza Virus Vaccine Quad .5 mL IM 6+ MO (FLUZONE/FLULAVAL/FL UARIX) Unknown Completed [facility] TDAP (ADACEL) VACCINE Unknown Completed [facility] HPV Unknown Completed [facility] HPV Unknown Completed [facility] [place] Varicella (varivax)(chicken pox) Unknown Completed [facility] Varicella (varivax)(chicken pox) Unknown Completed [facility] TDAP Unknown Completed [facility] IPV Unknown Completed [facility] IPV Unknown Completed [facility] IPV Unknown Completed [facility] IPV Unknown Completed [facility] Pneumococcal 7 Conjugate, PCV7 (Prevnar7) Unknown Completed [facility] Pneumococcal 7 Conjugate, PCV7 (Prevnar7) Unknown Completed [facility] Pneumococcal 7 Conjugate, PCV7 (Prevnar7) Unknown Completed [facility] Pneumococcal 7 Conjugate, PCV7 (Prevnar7) Unknown Completed [facility] MMR Unknown Completed [facility] MMR Unknown Completed [facility] Meningococcal Polysaccharide (groups A, C, Y and W-135) conjugate vaccine (MCV4P) Unknown Completed [facility] HIB 4 Dose Schedule Unknown Completed [facility] HIB 4 Dose Schedule Unknown Completed [facility] HIB 4 Dose Schedule Unknown Completed [facility] HIB 4 Dose Schedule Unknown Completed [facility] Hep B, Adol or Pedi Dosage Unknown Completed [facility] Hep B, Adol or Pedi Dosage Unknown Completed [facility] Hep B, Adol or Pedi Dosage Unknown Completed [facility] [place] DTaP, Unspecified Formulation Unknown Completed [facility] DTaP, Unspecified Formulation Unknown Completed [facility] [place] DTaP, Unspecified Formulation Unknown Completed [facility] [place] DTaP, Unspecified Formulation Unknown Completed [facility] [place] DTaP, Unspecified Formulation Unknown Completed [facility] [place] DTaP, Unspecified Formulation Unknown Completed [facility] TDAP Unknown Completed [facility] [place] Varicella (varivax)(chicken pox) Unknown Completed [facility] TDAP Unknown Completed [facility] [place] Varicella (varivax)(chicken pox) Unknown Completed [facility] [place] Influenza Virus Vaccine Quad .5 mL IM 6+ MO (FLUZONE/FLULAVAL/FL UARIX) Unknown Completed [facility] TDAP (ADACEL) VACCINE Unknown Completed [facility] [place] HPV Unknown Completed [facility] [place] HPV Unknown Completed [facility] [place] Influenza Virus Vaccine Quad IM, Preserv and ABX Free 6 MO-64 YRS (FLUCELVAX) Unknown Completed [facility] [place] Influenza Virus Vaccine Quad IM, Preserv and ABX Free 6 MO-64 YRS (FLUCELVAX) Unknown Completed [facility] [place] TDAP Unknown Completed [facility] [place] Varicella (varivax)(chicken pox) Unknown Completed [facility] [place] Varicella (varivax)(chicken pox) Unknown Completed [facility] [place] TDAP Unknown Completed [facility] IPV Unknown Completed [facility] IPV Unknown Completed [facility] IPV Unknown Completed [facility] IPV Unknown Completed [facility] Pneumococcal 7 Conjugate, PCV7 (Prevnar7) Unknown Completed [facility] Pneumococcal 7 Conjugate, PCV7 (Prevnar7) Unknown Completed [facility] Pneumococcal 7 Conjugate, PCV7 (Prevnar7) Unknown Completed [facility] Pneumococcal 7 Conjugate, PCV7 (Prevnar7) Unknown Completed [facility] MMR Unknown Completed [facility] MMR Unknown Completed [facility] Meningococcal Polysaccharide (groups A, C, Y and W-135) conjugate vaccine (MCV4P) Unknown Completed [facility] HIB 4 Dose Schedule Unknown Completed [facility] HIB 4 Dose Schedule Unknown Completed [facility] HIB 4 Dose Schedule Unknown Completed [facility] HIB 4 Dose Schedule Unknown Completed [facility] Hep B, Adol or Pedi Dosage Unknown Completed [facility] Hep B, Adol or Pedi Dosage Unknown Completed [facility] Hep B, Adol or Pedi Dosage Unknown Completed [facility] [place] DTaP, Unspecified Formulation Unknown Completed [facility] DTaP, Unspecified Formulation Unknown Completed [facility] [place] DTaP, Unspecified Formulation Unknown Completed [facility] [place] DTaP, Unspecified Formulation Unknown Completed [facility] [place] DTaP, Unspecified Formulation Unknown Completed [facility] DTaP, Unspecified Formulation Unknown Completed [facility] TDAP Unknown Completed [facility] Varicella (varivax)(chicken pox) Unknown Completed [facility] TDAP Unknown Completed [facility] Varicella (varivax)(chicken pox) Unknown Completed [facility] Influenza Virus Vaccine Quad .5 mL IM 6+ MO (FLUZONE/FLULAVAL/FL UARIX) Unknown Completed [facility] TDAP (ADACEL) VACCINE Unknown Completed [facility] HPV Unknown Completed [facility] HPV Unknown Completed [facility] Influenza Virus Vaccine Quad IM, Preserv and ABX Free 6 MO-64 YRS (FLUCELVAX) Unknown Completed [facility] [place] Influenza Virus Vaccine Quad IM, Preserv and ABX Free 6 MO-64 YRS (FLUCELVAX) Unknown Completed [facility] TDAP Unknown Completed [facility] Varicella (varivax)(chicken pox) Unknown Completed [facility] Varicella (varivax)(chicken pox) Unknown Completed [facility] TDAP Unknown Completed [facility] IPV Unknown Completed [facility] IPV Unknown Completed [facility] IPV Unknown Completed [facility] [place] IPV Unknown Completed [facility] [place] Pneumococcal 7 Conjugate, PCV7 (Prevnar7) Unknown Completed [facility] Pneumococcal 7 Conjugate, PCV7 (Prevnar7) Unknown Completed [facility] Pneumococcal 7 Conjugate, PCV7 (Prevnar7) Unknown Completed [facility] Pneumococcal 7 Conjugate, PCV7 (Prevnar7) Unknown Completed [facility] MMR Unknown Completed [facility] MMR Unknown Completed [facility] [place] Meningococcal Polysaccharide (groups A, C, Y and W-135) conjugate vaccine (MCV4P) Unknown Completed [facility] HIB 4 Dose Schedule Unknown Completed [facility] HIB 4 Dose Schedule Unknown Completed [facility] HIB 4 Dose Schedule Unknown Completed [facility] HIB 4 Dose Schedule Unknown Completed [facility] Hep B, Adol or Pedi Dosage Unknown Completed [facility] Hep B, Adol or Pedi Dosage Unknown Completed [facility] Hep B, Adol or Pedi Dosage Unknown Completed [facility] [place] DTaP, Unspecified Formulation Unknown Completed [facility] DTaP, Unspecified Formulation Unknown Completed [facility] DTaP, Unspecified Formulation Unknown Completed [facility] [place] DTaP, Unspecified Formulation Unknown Completed [facility] [place] DTaP, Unspecified Formulation Unknown Completed [facility] [place] DTaP, Unspecified Formulation Unknown Completed [facility] TDAP Unknown Completed [facility] [place] Varicella (varivax)(chicken pox) Unknown Completed [facility] TDAP Unknown Completed [facility] [place] Varicella (varivax)(chicken pox) Unknown Completed [facility] [place] Influenza Virus Vaccine Quad .5 mL IM 6+ MO (FLUZONE/FLULAVAL/FL UARIX) Unknown Completed [facility] TDAP (ADACEL) VACCINE Unknown Completed [facility] HPV Unknown Completed [facility] HPV Unknown Completed [facility] Influenza Virus Vaccine Quad IM, Preserv and ABX Free 6 MO-64 YRS (FLUCELVAX) Unknown Completed [facility] Influenza Virus Vaccine Quad IM, Preserv and ABX Free 6 MO-64 YRS (FLUCELVAX) Unknown Completed [facility] TDAP Unknown Completed [facility] Varicella (varivax)(chicken pox) Unknown Completed [facility] Varicella (varivax)(chicken pox) Unknown Completed [facility] TDAP Unknown Completed [facility] IPV Unknown Completed [facility] IPV Unknown Completed [facility] IPV Unknown Completed [facility] IPV Unknown Completed [facility] Pneumococcal 7 Conjugate, PCV7 (Prevnar7) Unknown Completed [facility] Pneumococcal 7 Conjugate, PCV7 (Prevnar7) Unknown Completed [facility] Pneumococcal 7 Conjugate, PCV7 (Prevnar7) Unknown Completed [facility] Pneumococcal 7 Conjugate, PCV7 (Prevnar7) Unknown Completed [facility] MMR Unknown Completed [facility] MMR Unknown Completed [facility] Meningococcal Polysaccharide (groups A, C, Y and W-135) conjugate vaccine (MCV4P) Unknown Completed [facility] HIB 4 Dose Schedule Unknown Completed [facility] HIB 4 Dose Schedule Unknown Completed [facility] HIB 4 Dose Schedule Unknown Completed [facility] HIB 4 Dose Schedule Unknown Completed [facility] Hep B, Adol or Pedi Dosage Unknown Completed [facility] Hep B, Adol or Pedi Dosage Unknown Completed [facility] Hep B, Adol or Pedi Dosage Unknown Completed [facility] DTaP, Unspecified Formulation Unknown Completed [facility] DTaP, Unspecified Formulation Unknown Completed [facility] DTaP, Unspecified Formulation Unknown Completed [facility] DTaP, Unspecified Formulation Unknown Completed [facility] DTaP, Unspecified Formulation Unknown Completed [facility] DTaP, Unspecified Formulation Unknown Completed [facility] Vital Signs Vital Name Observation Time Observation Value Comments S ource Systolic blood pressure 2023-01-21 19:10:00 126 mm[Hg] [facility] Diastolic blood pressure 2023-01-21 19:10:00 84 mm[Hg] [facility] Heart rate 2023-01-21 19:10:00 83 /min [facility] Body height 2023-01-21 19:10:00 165.1 cm [facility] Body weight 2023-01-21 19:10:00 101.197 kg [facility] BMI 2023-01-21 19:10:00 37.13 kg/m2 [facility] Oxygen saturation in Arterial blood by Pulse oximetry 2023-01-21 19:10:00 98 /min [facility] Body temperature 2022-11-12 14:39:00 36.39 Shawna [facility] Body height 2022-11-12 14:39:00 165.1 cm [facility] Body weight 2022-11-12 14:39:00 107.412 kg [facility] BMI 2022-11-12 14:39:00 39.41 kg/m2 [facility] Body temperature 2022-08-23 18:23:00 36.39 Shawna [facility] Body height 2022-08-23 18:23:00 165.1 cm [facility] Body weight 2022-08-23 18:23:00 103.057 kg [facility] BMI 2022-08-23 18:23:00 37.81 kg/m2 [facility] Systolic blood pressure 2022-07-31 01:12:49 131 mm[Hg] [facility] Diastolic blood pressure 2022-07-31 01:12:49 93 mm[Hg] [facility] Heart rate 2022-07-31 01:10:00 86 /min [facility] Body temperature 2022-07-31 01:10:00 37.22 Shawna [facility] Respiratory rate 2022-07-31 01:10:00 18 /min [facility] Body height 2022-07-31 01:10:00 [facility] 2022-07-31 01:10:00 99.791 kg [facility] BMI 2022-07-31 01:10:00 36.61 kg/m2 [facility] Oxygen saturation in Arterial blood by Pulse oximetry 2022-07-31 01:10:00 100 /min [facility] Systolic blood pressure 2022-05-22 01:28:00 135 mm[Hg] [facility] Diastolic blood pressure 2022-05-22 01:28:00 78 mm[Hg] [facility] Heart rate 2022-05-22 01:28:00 97 /min [facility] Body temperature 2022-05-22 01:28:00 37 Shawna [facility] Respiratory rate 2022-05-22 01:28:00 20 /min [facility] Body height 2022-05-22 01:28:00 [facility] 2022-05-22 01:28:00 99.882 kg [facility] BMI 2022-05-22 01:28:00 36.64 kg/m2 [facility] Oxygen saturation in Arterial blood by Pulse oximetry 2022-05-22 01:28:00 100 /min [facility] Systolic blood pressure 2022-03-30 12:38:00 119 mm[Hg] [facility] Diastolic blood pressure 2022-03-30 12:38:00 93 mm[Hg] [facility] Heart rate 2022-03-30 12:38:00 113 /min [facility] Body temperature 2022-03-30 12:38:00 38 Shawna [facility] Respiratory rate 2022-03-30 12:38:00 20 /min [facility] Body height 2022-03-30 12:38:00 165.1 cm [facility] Body weight 2022-03-30 12:38:00 94.802 kg [facility] BMI 2022-03-30 12:38:00 34.78 kg/m2 [facility] Oxygen saturation in Arterial blood by Pulse oximetry 2022-03-30 12:38:00 100 /min [facility] Systolic blood pressure 2022-03-28 16:09:00 101 mm[Hg] [facility] Diastolic blood pressure 2022-03-28 16:09:00 70 mm[Hg] [facility] Heart rate 2022-03-28 16:09:00 59 /min [facility] Body temperature 2022-03-28 16:09:00 36.56 Shawna [facility] Respiratory rate 2022-03-28 16:09:00 18 /min [facility] Body height 2022-03-28 16:09:00 165.1 cm [facility] Body weight 2022-03-28 16:09:00 94.802 kg [facility] BMI 2022-03-28 16:09:00 34.78 kg/m2 [facility] Systolic blood pressure 2022-03-08 15:50:00 117 mm[Hg] [facility] Diastolic blood pressure 2022-03-08 15:50:00 78 mm[Hg] [facility] Heart rate 2022-03-08 15:50:00 50 /min [facility] Body temperature 2022-03-08 15:50:00 36.83 Shawna [facility] Respiratory rate 2022-03-08 15:50:00 18 /min [facility] Body height 2022-03-08 15:50:00 165.1 cm [facility] Body weight 2022-03-08 15:50:00 97.886 kg [facility] BMI 2022-03-08 15:50:00 35.91 kg/m2 [facility] Systolic blood pressure 2022-02-28 18:45:00 124 mm[Hg] [facility] Diastolic blood pressure 2022-02-28 18:45:00 72 mm[Hg] [facility] Heart rate 2022-02-28 18:45:00 74 /min [facility] [facility] Body temperature 2022-02-28 18:45:00 36.56 Shawna [facility] Respiratory rate 2022-02-28 18:45:00 18 /min [facility] Oxygen saturation in Arterial blood by Pulse oximetry 2022-02-28 18:45:00 99 /min [facility] Systolic blood pressure 2022-02-26 20:56:00 127 mm[Hg] [facility] Diastolic blood pressure 2022-02-26 20:56:00 85 mm[Hg] [facility] Heart rate 2022-02-26 20:56:00 101 /min [facility] Body temperature 2022-02-26 20:56:00 36.89 Shawna [facility] Respiratory rate 2022-02-26 20:56:00 18 /min [facility] Body height 2022-02-26 20:56:00 165.1 cm [facility] Body weight 2022-02-26 20:56:00 101.969 kg [facility] BMI 2022-02-26 20:56:00 37.41 kg/m2 [facility] Heart rate 2022-02-27 04:15:00 64 /min [facility] Oxygen saturation in Arterial blood by Pulse oximetry 2022-02-27 04:15:00 99 /min [facility] Systolic blood pressure 2022-02-27 03:45:00 106 mm[Hg] [facility] Diastolic blood pressure 2022-02-27 03:45:00 59 mm[Hg] [facility] Body temperature 2022-02-27 03:15:00 36.67 Shawna [facility] Respiratory rate 2022-02-27 03:15:00 18 /min [facility] Heart rate 2022-02-25 20:44:00 70 /min [facility] Oxygen saturation in Arterial blood by Pulse oximetry 2022-02-25 20:44:00 99 /min [facility] Systolic blood pressure 2022-02-25 19:45:00 110 mm[Hg] [facility] Diastolic blood pressure 2022-02-25 19:45:00 54 mm[Hg] [facility] Body temperature 2022-02-25 19:45:00 36.89 Shawna [facility] Respiratory rate 2022-02-25 19:45:00 18 /min [facility] Body height 2022-02-25 19:45:00 165.1 cm [facility] Body weight 2022-02-25 19:45:00 101.47 kg [facility] BMI 2022-02-25 19:45:00 37.23 kg/m2 [facility] Systolic blood pressure 2022-02-14 15:32:00 127 mm[Hg] [facility] Diastolic blood pressure 2022-02-14 15:32:00 83 mm[Hg] [facility] Heart rate 2022-02-14 15:32:00 85 /min [facility] Body temperature 2022-02-14 15:32:00 36.78 Shawna [facility] Respiratory rate 2022-02-14 15:32:00 18 /min [facility] Body height 2022-02-14 15:32:00 165.1 cm [facility] Body weight 2022-02-14 15:32:00 103.148 kg [facility] BMI 2022-02-14 15:32:00 37.84 kg/m2 [facility] Systolic blood pressure 2022-02-09 02:52:00 123 mm[Hg] [facility] Diastolic blood pressure 2022-02-09 02:52:00 84 mm[Hg] [facility] Heart rate 2022-02-09 02:52:00 78 /min [facility] Body temperature 2022-02-09 02:52:00 36.61 Shawna [facility] Respiratory rate 2022-02-09 02:52:00 16 /min [facility] Oxygen saturation in Arterial blood by Pulse oximetry 2022-02-09 02:52:00 100 /min [facility] Body weight 2022-02-08 19:38:00 101.878 kg [facility] BMI 2022-02-08 19:38:00 37.38 kg/m2 [facility] Systolic blood pressure 2022-02-07 17:39:00 124 mm[Hg] [facility] Diastolic blood pressure 2022-02-07 17:39:00 84 mm[Hg] [facility] Heart rate 2022-02-07 17:39:00 80 /min [facility] Body temperature 2022-02-07 17:39:00 36.11 Shawna [facility] Body height 2022-02-07 17:39:00 165.1 cm [facility] Body weight 2022-02-07 17:39:00 102.967 kg [facility] BMI 2022-02-07 17:39:00 37.77 kg/m2 [facility] Oxygen saturation in Arterial blood by Pulse oximetry 2022-02-07 17:39:00 97 /min [facility] Systolic blood pressure 2022-02-04 02:00:00 109 mm[Hg] [facility] Diastolic blood pressure 2022-02-04 02:00:00 61 mm[Hg] [facility] Heart rate 2022-02-04 02:00:00 112 /min [facility] Body temperature 2022-02-04 02:00:00 36.78 Shawna [facility] Respiratory rate 2022-02-04 02:00:00 16 /min [facility] Oxygen saturation in Arterial blood by Pulse oximetry 2022-02-04 02:00:00 99 /min [facility] Body height 2022-02-03 21:39:00 165.1 cm [facility] Body weight 2022-02-03 21:39:00 101.061 kg [facility] BMI 2022-02-03 21:39:00 37.08 kg/m2 [facility] Heart rate 2022-02-02 17:30:00 86 /min [facility] Oxygen saturation in Arterial blood by Pulse oximetry 2022-02-02 17:30:00 100 /min [facility] Systolic blood pressure 2022-02-02 16:46:00 91 mm[Hg] [facility] Diastolic blood pressure 2022-02-02 16:46:00 52 mm[Hg] [facility] Body temperature 2022-02-02 16:46:00 35.56 Shawna [facility] Respiratory rate 2022-02-02 16:46:00 18 /min [facility] Systolic blood pressure 2022-01-31 16:01:00 119 mm[Hg] [facility] Diastolic blood pressure 2022-01-31 16:01:00 85 mm[Hg] [facility] Heart rate 2022-01-31 16:01:00 87 /min [facility] Body temperature 2022-01-31 16:01:00 36.5 Shawna [facility] Respiratory rate 2022-01-31 16:01:00 18 /min [facility] Body height 2022-01-31 16:01:00 165.1 cm [facility] Body weight 2022-01-31 16:01:00 100.245 kg [facility] BMI 2022-01-31 16:01:00 36.78 kg/m2 [facility] Heart rate 2022-01-30 22:30:00 101 /min [facility] Oxygen saturation in Arterial blood by Pulse oximetry 2022-01-30 22:30:00 99 /min [facility] Systolic blood pressure 2022-01-30 22:00:00 129 mm[Hg] [facility] Diastolic blood pressure 2022-01-30 22:00:00 75 mm[Hg] [facility] Respiratory rate 2022-01-30 22:00:00 18 /min [facility] Body temperature 2022-01-30 19:09:00 36.72 Shawna [facility] Body height 2022-01-30 19:09:00 165.1 cm [facility] Body weight 2022-01-30 19:09:00 100.426 kg [facility] BMI 2022-01-30 19:09:00 36.84 kg/m2 [facility] Systolic blood pressure 2022-01-30 18:35:00 166 mm[Hg] [facility] Diastolic blood pressure 2022-01-30 18:35:00 93 mm[Hg] [facility] Heart rate 2022-01-30 18:34:00 88 /min [facility] Body temperature 2022-01-30 18:34:00 36.83 Shawna [facility] Respiratory rate 2022-01-30 18:34:00 16 /min [facility] Body height 2022-01-30 18:34:00 165.1 cm [facility] Body weight 2022-01-30 18:34:00 100.245 kg [facility] BMI 2022-01-30 18:34:00 36.78 kg/m2 [facility] Systolic blood pressure 2022-01-29 04:19:00 111 mm[Hg] [facility] Diastolic blood pressure 2022-01-29 04:19:00 63 mm[Hg] [facility] Heart rate 2022-01-29 04:19:00 85 /min [facility] Body temperature 2022-01-29 04:19:00 36.67 Shawna [facility] Respiratory rate 2022-01-29 04:19:00 16 /min [facility] Oxygen saturation in Arterial blood by Pulse oximetry 2022-01-29 04:19:00 100 /min [facility] Body height 2022-01-29 04:06:00 165.1 cm [facility] 2022-01-29 04:06:00 101.606 kg 224lb [facility] BMI 2022-01-29 04:06:00 37.28 kg/m2 [facility] Systolic blood pressure 2022-01-17 18:14:00 108 mm[Hg] [facility] Diastolic blood pressure 2022-01-17 18:14:00 71 mm[Hg] [facility] Heart rate 2022-01-17 18:14:00 92 /min [facility] Body temperature 2022-01-17 18:14:00 36.78 Shawna [facility] Body height 2022-01-17 18:14:00 165.1 cm [facility] Body weight 2022-01-17 18:14:00 101.969 kg [facility] BMI 2022-01-17 18:14:00 37.41 kg/m2 [facility] Systolic blood pressure 2021-12-20 13:58:00 105 mm[Hg] [facility] Diastolic blood pressure 2021-12-20 13:58:00 73 mm[Hg] [facility] Heart rate 2021-12-20 13:58:00 73 /min [facility] Body temperature 2021-12-20 13:58:00 36.5 Shawna [facility] Respiratory rate 2021-12-20 13:58:00 18 /min [facility] Body height 2021-12-20 13:58:00 165.1 cm [facility] Body weight 2021-12-20 13:58:00 99.701 kg [facility] BMI 2021-12-20 13:58:00 36.58 kg/m2 [facility] Systolic blood pressure 2021-11-22 15:58:00 110 mm[Hg] [facility] Diastolic blood pressure 2021-11-22 15:58:00 73 mm[Hg] [facility] Heart rate 2021-11-22 15:58:00 79 /min [facility] Body temperature 2021-11-22 15:58:00 37 Shawna [facility] Respiratory rate 2021-11-22 15:58:00 18 /min [facility] Body height 2021-11-22 15:58:00 165.1 cm [facility] Body weight 2021-11-22 15:58:00 99.338 kg [facility] BMI 2021-11-22 15:58:00 36.44 kg/m2 [facility] Systolic blood pressure 2021-10-24 19:20:00 108 mm[Hg] [facility] Diastolic blood pressure 2021-10-24 19:20:00 70 mm[Hg] [facility] Heart rate 2021-10-24 19:20:00 87 /min [facility] Body temperature 2021-10-24 19:20:00 37.17 Shawna [facility] Body height 2021-10-24 19:20:00 165.1 cm [facility] Body weight 2021-10-24 19:20:00 98.431 kg [facility] BMI 2021-10-24 19:20:00 36.11 kg/m2 [facility] Systolic blood pressure 2021-09-26 18:06:00 99 mm[Hg] [facility] Diastolic blood pressure 2021-09-26 18:06:00 69 mm[Hg] [facility] Heart rate 2021-09-26 18:06:00 62 /min [facility] Body temperature 2021-09-26 18:06:00 36.78 Shawna [facility] Respiratory rate 2021-09-26 18:06:00 18 /min [facility] Body height 2021-09-26 18:06:00 165.1 cm [facility] Body weight 2021-09-26 18:06:00 97.07 kg [facility] BMI 2021-09-26 18:06:00 35.61 kg/m2 [facility] Systolic blood pressure 2021-08-29 20:40:00 120 mm[Hg] [facility] Diastolic blood pressure 2021-08-29 20:40:00 79 mm[Hg] [facility] Heart rate 2021-08-29 20:40:00 58 /min [facility] Body temperature 2021-08-29 20:40:00 36.78 Shawna [facility] Respiratory rate 2021-08-29 20:40:00 20 /min [facility] Body height 2021-08-29 20:40:00 165.1 cm [facility] Body weight 2021-08-29 20:40:00 99.61 kg [facility] BMI 2021-08-29 20:40:00 36.54 kg/m2 [facility] Systolic blood pressure 2021-08-01 18:12:00 98 mm[Hg] [facility] Diastolic blood pressure 2021-08-01 18:12:00 63 mm[Hg] [facility] Heart rate 2021-08-01 18:12:00 89 /min [facility] Body temperature 2021-08-01 18:12:00 36.94 Shawna [facility] Respiratory rate 2021-08-01 18:12:00 18 /min [facility] Body height 2021-08-01 18:12:00 165.1 cm [facility] Body weight 2021-08-01 18:12:00 100.245 kg [facility] BMI 2021-08-01 18:12:00 36.78 kg/m2 [facility] Systolic blood pressure 2021-07-19 19:40:00 112 mm[Hg] [facility] Diastolic blood pressure 2021-07-19 19:40:00 77 mm[Hg] [facility] Heart rate 2021-07-19 19:40:00 76 /min [facility] Body temperature 2021-07-19 19:40:00 36.94 Shawna [facility] Body height 2021-07-19 19:40:00 167.6 cm [facility] Body weight 2021-07-19 19:40:00 100.336 kg [facility] BMI 2021-07-19 19:40:00 35.70 kg/m2 [facility] Systolic blood pressure 2021-01-15 12:54:00 125 mm[Hg] [facility] Diastolic blood pressure 2021-01-15 12:54:00 74 mm[Hg] [facility] Heart rate 2021-01-15 12:54:00 68 /min [facility] Body temperature 2021-01-15 12:54:00 36.11 Shawna [facility] Respiratory rate 2021-01-15 12:54:00 18 /min [facility] Oxygen saturation in Arterial blood by Pulse oximetry 2021-01-15 12:54:00 98 /min [facility] Body weight 2021-01-14 09:00:00 96.616 kg [facility] BMI 2021-01-14 09:00:00 35.45 kg/m2 [facility] Systolic blood pressure 2021-01-12 20:03:00 120 mm[Hg] [facility] Diastolic blood pressure 2021-01-12 20:03:00 86 mm[Hg] [facility] Heart rate 2021-01-12 20:03:00 80 /min [facility] Body temperature 2021-01-12 20:03:00 36.89 Shawna [facility] Respiratory rate 2021-01-12 20:03:00 16 /min [facility] Body height 2021-01-12 20:03:00 165.1 cm [facility] Body weight 2021-01-12 20:03:00 96.752 kg [facility] BMI 2021-01-12 20:03:00 35.49 kg/m2 [facility] Systolic blood pressure 2021-01-15 12:54:00 125 mm[Hg] [facility] Diastolic blood pressure 2021-01-15 12:54:00 74 mm[Hg] [facility] Heart rate 2021-01-15 12:54:00 68 /min [facility] Body temperature 2021-01-15 12:54:00 36.11 Shawna [facility] Respiratory rate 2021-01-15 12:54:00 18 /min [facility] Oxygen saturation in Arterial blood by Pulse oximetry 2021-01-15 12:54:00 98 /min [facility] Body weight 2021-01-14 09:00:00 96.616 kg [facility] BMI 2021-01-14 09:00:00 35.45 kg/m2 [facility] Body height 2021-01-12 20:03:00 165.1 cm [facility] Procedures Procedure Date / Time Performed Performing Clinician Source CONSENT/REFUSAL FOR DIAGNOSIS AND TREATMENT 2022-10-29 13:15:54 Doctor Unassigned, Emery [facility] POCT TEST 2022-07-31 03:16:00 Magalys Lacey [facility] MAGNESIUM 2022-07-31 03:10:00 Magalys Lacey [facility] COMP. METABOLIC PANEL ([id number]) 2022-07-31 03:10:00 Magalys Lacey [facility] CBC WITH DIFF 2022-07-31 03:10:00 Magalys Lacey [facility] URINALYSIS 2022-07-31 03:10:00 Magalys Lacey [facility] NOTICE OF PRIVACY PRACTICES 2022-07-31 00:59:00 Doctor Unassigned, Emery [facility] CONSENT/REFUSAL FOR DIAGNOSIS AND TREATMENT 2022-07-31 00:58:05 Doctor Unassigned, Emery [facility] RAPID STREP SCREEN FOR GROUP A 2022-05-22 01:35:00 Tracy Wheeler [facility] CONSENT/REFUSAL FOR DIAGNOSIS AND TREATMENT 2022-05-22 01:15:31 Doctor Unassigned, Emery [facility] RAPID STREP SCREEN FOR GROUP A 2022-03-30 13:29:00 Kiran Scales [facility] RAPID INFLUENZA A/B 2022-03-30 13:29:00 Kiran Scales [facility] COVID-19 (ID NOW RAPID TESTING) 2022-03-30 13:29:00 Kiran Scales [facility] CONSENT/REFUSAL FOR DIAGNOSIS AND TREATMENT 2022-03-30 12:31:52 Doctor Unassigned, Emery [facility] POCT TEST 2022-03-28 00:00:00 YakovElliot [facility] PREPARE PACKED RBC 2022-03-01 01:11:43 YakovElliot Gino [facility] CBC WITH DIFF 2022-02-27 10:28:00 GouldElliot [facility] CBC WITH DIFF 2022-02-27 10:28:00 YakovElliot [facility] PREPARE PACKED RBC 2022-02-27 01:40:56 YakovElliot Gino [facility] CBC WITH DIFF 2022-02-26 23:01:00 Yakov [facility] HEPATITIS B SURFACE ANTIGEN 2022-02-26 23:01:00 Yakov Elliot [facility] ADC OR TIFFANI ONLY - RPR 2022-02-26 23:01:00 Gregory Gould [facility] CBC WITH DIFF 2022-02-26 23:01:00 Yakov Elliot [facility] HEPATITIS B SURFACE ANTIGEN 2022-02-26 23:01:00 Yakov Elliot [facility] ADC OR TIFFANI ONLY - RPR 2022-02-26 23:01:00 Gregory Gould [facility] HB ABO GROUPING 2022-02-26 23:00:00 Yakov [facility] RHO (D) IMMUNE GLOBULIN 2022-02-26 23:00:00 Yakov [facility] HB ABO GROUPING 2022-02-26 23:00:00 Yakov [facility] RHO (D) IMMUNE GLOBULIN 2022-02-26 23:00:00 Yakov [facility] ASSIGNMENT OF BENEFITS 2022-02-26 21:46:08 Docto r Unassigned, Emery [facility] DSU PRE-OP 2022-02-26 06:01:00 Doctor Unass igned, Emery [facility] DSU PRE-OP 2022-02-26 06:01:00 Doctor Unass igned, Emery [facility] POCT URINALYSIS W/O SPECIFIC GRAVITY 2022-02-26 00:00:00 YakovElliot Gino [facility] URINALYSIS 2022-02-25 20:15:00 Sonia Mayberry [facility] CONSENT/REFUSAL FOR DIAGNOSIS AND TREATMENT 2022-02-25 19:07:24 Doctor Unassigned, Emery [facility] ASSIGNMENT OF BENEFITS 2022-02-25 19:06:09 Docto r Unassigned, Emery [facility] POCT URINALYSIS W/O SPECIFIC GRAVITY 2022-02-14 15:42:00 YakovElliot [facility] CONSENT/REFUSAL FOR DIAGNOSIS AND TREATMENT 2022-02-09 05:01:00 Doctor Unassigned, Emery [facility] AMYLASE 2022-02-08 22:31:00 Yakov Elliot G[facility] LIPASE 2022-02-08 22:31:00 Yakov Elliot [facility] COMP. METABOLIC PANEL ([id number]) 2022-02-08 22:31:00 Yakov Elliot Gino [facility] CBC WITH DIFF 2022-02-08 22:31:00 Yakov Elliot Gino [facility] ASSIGNMENT OF BENEFITS 2022-02-08 19:31:04 Docto r Unassigned, Emery [facility] CONSENT/REFUSAL FOR DIAGNOSIS AND TREATMENT 2022-02-08 19:30:26 Doctor Unassigned, Emery [facility] POCT GLUCOSE (AUTOMATED) 2022-02-03 21:46:00 Elliot Gould [facility] CONSENT/REFUSAL FOR DIAGNOSIS AND TREATMENT 2022-02-03 21:09:38 Doctor Unassigned, Emery [facility] HB ABO GROUPING 2022-02-02 07:25:00 Zaina [facility] LACTATE DEHYDROGENASE 2022-02-02 04:42:00 Zaina [facility] URIC ACID 2022-02-02 04:42:00 Ly, [facility] COMP. METABOLIC PANEL ([id number]) 2022-02-02 04:42:00 Monae Knowles [facility] CBC WITH DIFF 2022-02-02 04:42:00 Ly, [facility] URINALYSIS 2022-02-02 04:42:00 Ly, [facility] HEPATITIS B SURFACE ANTIGEN 2022-02-02 04:42:00 Ly, [facility] PROTEIN CREAT RATIO URINE RANDOM 2022-02-02 04:42:00 Ly, [facility] HIV 1/2 AG-AB WITH REFLEX 2022-02-02 04:42:00 Ly, [facility] GALV ONLY - SYPHILIS IGG/IGM 2022-02-02 04:42:00 Ly, [facility] HOSPITAL ADMISSION 2022-02-01 05:01:00 Doctor Un assigned, Emery [facility] POCT URINALYSIS W/O SPECIFIC GRAVITY 2022-01-31 00:00:00 Shari Diamond [facility] ASSIGNMENT OF BENEFITS 2022-01-30 18:48:53 Docto r Unassigned, Emery [facility] NOTICE OF PRIVACY PRACTICES 2022-01-29 03:52:27 Doctor Unassigned, Emery [facility] ASSIGNMENT OF BENEFITS 2022-01-29 03:49:18 Docto r Unassigned, Emery [facility] URINALYSIS 2022-01-17 18:50:00 Elloit Gould [facility] TDAP VACCINE, >11 YRS, IM 2022-01-17 18:16:09 Gregory Gould [facility] FLU VACC (), 6 MO-64 YRS, .5ML, IM, QUAD (FLUCELVAX) 2022-01-17 18:16:09 Elliot Gould [facility] POCT URINALYSIS W/O SPECIFIC GRAVITY 2022-01-17 00:00:00 Elliot Gould [facility] POCT URINALYSIS W/O SPECIFIC GRAVITY 2021-12-20 14:00:00 Shari Diamond [facility] SECOND AND THIRD TRIMESTER ULTRASOUND 2021-12-15 14:11:00 Elliot Gould [facility] POCT URINALYSIS W/O SPECIFIC GRAVITY 2021-11-22 00:00:00 Elliot Gould [facility] CONSENT/REFUSAL FOR DIAGNOSIS AND TREATMENT 2021-10-24 19:11:23 Doctor Unassigned, Emery [facility] ASSIGNMENT OF BENEFITS 2021-10-24 19:10:45 Docto r Unassigned, Emery [facility] POCT URINALYSIS W/O SPECIFIC GRAVITY 2021-10-24 00:00:00 Lobo Shari [facility] SCANNED LAB RESULTS 2021-09-26 05:01:00 Doctor Brenden garzonsiluz marina, Emery [facility] POCT URINALYSIS W/O SPECIFIC GRAVITY 2021-09-26 00:00:00 Elliot Gould [facility] POCT URINALYSIS W/O SPECIFIC GRAVITY 2021-08-29 20:41:00 Lobo Shari [facility] POCT URINALYSIS W/O SPECIFIC GRAVITY 2021-08-01 00:00:00 Elliot Gould [facility] FIRST TRIMESTER LESS THAN 14 WEEKS WITH TRANSVAGINAL 2021-07-31 19:50:00 Elliot Gould [facility] US OB TRANSVAGINAL 2021-07-19 20:49:29 Elliot Gould [facility] ASSIGNMENT OF BENEFITS 2021-07-19 20:24:08 Docto r Unassigned, Emery [facility] FLU VACC ([id number]), 2-64 YRS, .5ML, IM, QUAD (FLUCELVAX) 2021-07-19 19:47:42 Elliot Gould [facility] POCT TEST 2021-07-19 00:00:00 Elliot Gould [facility] POCT URINALYSIS W/O SPECIFIC GRAVITY 2021-07-19 00:00:00 Elliot Gould [facility] CT ANGIOGRAM HEAD 2021-01-15 15:55:38 Nohemy Leung [facility] CT ANGIOGRAM HEAD 2021-01-15 15:55:38 Nohemy Leung karime [facility] MR BRAIN W WO CONTRAST 2021-01-15 01:57:00 Castañeda Cox , [facility] MR BRAIN W WO CONTRAST 2021-01-15 01:57:00 Garry Cox [facility] BASIC METABOLIC PANEL (NA, K, CL, CO2, GLUCOSE, BUN, CREATININE, CA) 2021-01-14 09:29:00 Juan Smyth [facility] MAGNESIUM 2021-01-14 09:29:00 Juan Smyth [facility] MAGNESIUM 2021-01-14 09:29:00 Juan Smyth [facility] BASIC METABOLIC PANEL (NA, K, CL, CO2, GLUCOSE, BUN, CREATININE, CA) 2021-01-14 09:29:00 Juan Smyth [facility] CBC WITH DIFF 2021-01-14 09:25:00 Juan Smyth [facility] CBC WITH DIFF 2021-01-14 09:25:00 Juan Smyth [facility] IR SPINAL LUMBAR PUNCTURE DIAGNOSTIC 2021-01-13 [facility]:32[facility]NOSTIC 2021-01-13 21:32:50 Juan Smyth [facility] BODY FLUID MANUAL DIFF 2021-01-13 21:00:00 Nicolas Smyth [facility] CEREBROSPINAL FLUID GLUCOSE 2021-01-13 21:00:00 Juan Smyth [facility] CEREBROSPINAL FLUID PROTEIN 2021-01-13 21:00:00 Juan Smyth [facility] CSF CULTURE 2021-01-13 [facility]:00[facility] 2021-01-13 21:00:00 Juan Smyth [facility] CEREBROSPINAL FLUID PROTEIN 2021-01-13 21:00:00 Juan Smyth [facility] CEREBROSPINAL FLUID GLUCOSE 2021-01-13 21:00:00 Juan Smyth [facility] BODY FLUID DIRECT COUNT 2021-01-13 21:00:00 Frantz Smyth [facility] EXTRA TUBE CSF 2021-01-13 21:00:00 Juan Smyth [facility] CSF CULTURE 2021-01-13 21:00:00 Emanuel Roberts [facility] PROTHROMBIN TIME / INR 2021-01-13 18:57:00 Nicolas Smyth [facility] PROTHROMBIN TIME / INR 2021-01-13 18:57:00 Nicolas Smyth [facility] PROTHROMBIN TIME / INR 2021-01-13 09:30:00 Silvana Guzman [facility] ACTIVATED PARTIAL THRMPLAS WILLIAM 2021-01-13 09:30:00 Megan [facility] PROTHROMBIN TIME / INR 2021-01-13 09:30:00 Silvana Guzman [facility] ACTIVATED PARTIAL THRMPLAS WILLIAM 2021-01-13 09:30:00 [facility] [facility] CBC WITH DIFF 2021-01-13 04:33:00 Peter Garcia [facility] COMP. METABOLIC PANEL (44849) 2021-01-13 04:33:00 Peter Garcia [facility] MAGNESIUM 2021-01-13 04:33:00 Megan [facility] TROPONIN I 2021-01-13 04:33:00 Megan [facility] MAGNESIUM 2021-01-13 04:33:00 Megan [facility] TROPONIN I 2021-01-13 04:33:00 Megan [facility] COMP. METABOLIC PANEL (54519) 2021-01-13 04:33:00 Peter Garcia [facility] CBC WITH DIFF 2021-01-13 04:33:00 Peter Garcia [facility] COVID-19 (ID NOW RAPID TESTING) 2021-01-13 03:33:00 Kayla Goodson [facility] COVID-19 (ID NOW RAPID TESTING) 2021-01-13 03:33:00 Kayla Goodson [facility] LAB ONLY COVID INTERPRETATION 2021-01-13 03:33:00 Kayla Goodson [facility] CONSENT/REFUSAL FOR DIAGNOSIS AND TREATMENT 2021-01-13 01:53:28 Doctor Unassigned, Emery [facility] CONSENT/REFUSAL FOR DIAGNOSIS AND TREATMENT 2021-01-13 01:53:28 Doctor Unassigned, Emery [facility] POCT TEST 2020-12-29 07:22:00 Coleen Miller [facility] NOTICE OF PRIVACY PRACTICES 2020-12-29 07:04:36 Doctor Unassigned, Emery [facility] CONSENT/REFUSAL FOR DIAGNOSIS AND TREATMENT 2020-12-29 07:04:21 Doctor Unassigned, Emery [facility] POCT TEST 2020-11-22 05:08:00 Amara Romeo ra [facility] CBC WITH DIFF 2020-11-22 04:55:00 Melissa Romeo [facility] BASIC METABOLIC PANEL (NA, K, CL, CO2, GLUCOSE, BUN, CREATININE, CA) 2020-11-22 04:55:00 Melissa Romeo [facility] NOTICE OF PRIVACY PRACTICES 2020-11-22 04:19:31 Doctor Unassigned, Emery [facility] CONSENT/REFUSAL FOR DIAGNOSIS AND TREATMENT 2020-11-22 04:17:24 Doctor Unassigned, Emery [facility] EMERGENCY SERVICES AGREEMENTS AND AUTHORIZATIONS 2020-11-21 05:01:00 Doctor Unassigned, Emery [facility] GC & CHLAMYDIA AMPLIFIED ASSAY 2020-11-07 18:21:00 Lobo [facility] GALV ONLY - VAGINAL PATHOGENS BY NUCLEIC ACID TESTING 2020-11-07 18:21:00 Shari Diamond [facility] CT ANGIOGRAM HEAD 2020-10-27 07:36:57 Nkechi Olivares [facility] CT ANGIOGRAM NECK 2020-10-27 07:36:57 Nkechi Olivares [facility] CT HEAD WO CONTRAST 2020-10-27 07:33:49 Nkechi Olivares [facility] CBC WITH DIFF 2020-10-27 07:04:00 Nkechi Olivares [facility] BASIC METABOLIC PANEL (NA, K, CL, CO2, GLUCOSE, BUN, CREATININE, CA) 2020-10-27 07:04:00 Nkechi Olivares [facility] CONSENT/REFUSAL FOR DIAGNOSIS AND TREATMENT 2020-10-27 06:17:09 Doctor Unassigned, Emery [facility] EMERGENCY SERVICES AGREEMENTS AND AUTHORIZATIONS 2020-10-27 05:01:00 Doctor Unassigned, Emery [facility] POCT TEST 2020-10-25 23:55:00 Nkechi Olivares [facility] URINALYSIS 2020-10-25 23:48:00 Nkechi Olivares [facility] NOTICE OF PRIVACY PRACTICES 2020-10-25 22:10:05 Doctor Unassigned, Emery [facility] CONSENT/REFUSAL FOR DIAGNOSIS AND TREATMENT 2020-10-25 22:09:41 Doctor Unassigned, Emery [facility] EMERGENCY SERVICES AGREEMENTS AND AUTHORIZATIONS 2020-10-25 05:01:00 Doctor Unassigned, Emery [facility] SECTION Elliot Gould [facility] SECTION Elliot Gould [facility] Encounters Start Date/Time End Date/Time Encounter Type Admission Type Attending [facility] Care Facility Care Department Encounter ID Source 2022-11-20 09:52:09 Outpatient SAMMY JI [id number] ELGINOPO ELCAMPO [id number] [facility] 2022-02-02 14:13:49 Outpatient X [facility] JAVAD [id number] [facility] 2021-02-21 01:01:49 Emergency [facility] [id number] [facility] 2021-02-20 21:22:40 Emergency [facility] [id number] [facility] 2021-02-20 12:36:56 Emergency [facility] [id number] [facility] 2021-02-20 06:43:59 Emergency [facility] [id number] [facility] 2021-02-20 06:24:27 Emergency [facility] [id number] [facility] 2021-02-16 20:10:04 Outpatient P [facility] JAVAD [id number] [facility] 2021-02-16 17:53:58 Outpatient P [facility] JAVAD [id number] [facility] 2021-02-16 16:15:54 Outpatient P [facility] J[facility]AD [id number] [facility] 2023-04-03 14:00:00 2023-04-03 14:00:00 Outpatient ALVERTO TEJADA [facility] [id number] [facility] 2023-03-04 00:00:00 2023-03-04 00:00:00 Case Management Annelise Brown 1..840.114 350.1.13.10 4.2.7.2.686 [id number] [facility] 2023-02-14 09:15:00 2023-02-14 09:15:00 Outpatient Reji MACIASYosef COSME [facility] [id number] [facility] 2023-02-01 09:51:00 2023-02-01 14:57:00 Outpatient GRETA GARCIAO [id number] N ELCAMPO NO SHOW/CANCEL LED [id number] [facility] 2023-01-25 10:52:00 2023-01-25 14:21:00 Outpatient M EL SHAGELUK [id number] N ELCAMPO NO SHOW/CANCEL LED [id number] [facility] 2023-01-21 15:00:00 2023-01-21 15:20:00 Office Visit Alverto [facility] 1..840.114 350.1.13.10 4.2.7.2.686 [id number] [facility] 2023-01-21 15:00:00 2023-01-21 15:00:00 Outpatient ALVERTO TEJADA [facility] [id number] Tim figueredo [facility] 2022-12-26 09:30:00 2022-12-26 09:30:00 Outpatient GLORIA HOLLEY CRAIG [facility] [id number] [facility] 2022-12-14 09:19:00 2022-12-14 13:26:00 Outpatient M SAMMY JI [id number] ELC[facility] [address] [address] [id number] [facility] 2022-12-12 13:00:00 2022-12-12 13:00:00 Outpatient Reji [facility] [id number] [facility] 2022-11-20 10:20:00 2022-11-20 17:52:00 Outpatient SAMMY JI [id number] ELCAMPO PPL [facility] [address] [id number] [facility] 2022-11-12 10:00:00 2022-11-12 10:15:00 Office Visit Cosme Brennan [facility] LEANN 1.2.840.114 350.1.13.10 4.2.7.2.686 [id number] [facility] 2022-11-12 10:00:00 2022-11-12 10:00:00 Outpatient COSME BOYER [facility] [id number] [facility] 2022-10-29 13:00:00 2022-10-29 15:00:00 Ancillary Visit Anna Dejesus Deborah L [facility] 1.2.840.114 350.1.13.10 4.2.7.2.686 [id number] [facility] 2022-10-29 13:00:00 2022-10-29 13:00:00 Outpatient LISA ROSALES [facility] [id number] [facility] 2022-10-29 08:15:00 2022-10-29 09:00:00 Ancillary Visit 1, Amara [employer] Lisa Garcia [facility] 1.2.840.114 350.1.13.10 4.2.7.2.686 [id number] [facility] 2022-10-29 00:00:00 2022-10-29 00:00:00 Orders Only Doctor Unassigned, Emery [facility] 1.2.840.114 350.1.13.10 4.2.7.2.686 [id number] [facility] 2022-10-18 09:30:00 2022-10-18 09:30:00 Outpatient ELLIOT MOJICA [facility] [id number] [facility] 2022-08-23 13:30:00 2022-08-23 13:45:00 Office Visit Cosme Brennan [facility] 1.2.840.114 350.1.13.10 4.2.7.2.686 [id number] [facility] 2022-08-23 13:30:00 2022-08-23 13:30:00 Outpatient COSME BOYER [facility] [id number] [facility] 2022-08-09 10:00:00 2022-08-09 10:00:00 Outpatient COSME BOYER [facility] [id number] [facility] 2022-08-01 13:20:00 2022-08-01 13:20:00 Outpatient ALVERTO TEJADA [facility] [id number] Tim [facility] 2022-07-30 20:13:00 2022-07-31 00:14:00 Emergency X MAGALYS LACEY [facility] ERT [id number] [facility] 2022-07-30 20:13:00 2022-07-31 00:14:00 Emergency Magalys Lacey [facility] 1.2.840.114 350.1.13.10 4.2.7.2.686 [id number] [facility] 2022-06-08 09:30:00 2022-06-08 09:30:00 Outpatient Reji ELLIOT GOULD [facility] [id number] [facility] 2022-05-21 19:31:00 2022-05-21 20:58:00 Emergency X TRACY WHEELER [facility] ERT [id number] [facility] 2022-05-21 19:31:00 2022-05-21 20:58:00 Emergency Tracy Wheeler [facility] 1.2.840.114 350.1.13.10 4.2.7.2.686 [id number] [facility] 2022-05-17 00:00:00 2022-05-17 00:00:00 Patient Secure Elliot Harrison Gino [facility] PROFESSIO NAL BUILDING 1.2.840.114 350.1.13.10 4.2.7.2.686 [id number] 134 [id number] [facility] 2022-05-14 08:30:00 2022-05-14 08:30:00 Outpatient ELLIOT MOJICA [facility] [id number] [facility] 2022-04-11 00:00:00 2022-04-11 00:00:00 Patient Secure Elliot Harrison [facility] PROFESSIO NAL BUILDING 1.2.840.114 350.1.13.10 4.2.7.2.686 [id number] 134 [id number] [facility] 2022-03-30 06:43:00 2022-03-30 09:05:00 Emergency X KIRAN SCALES [facility] ERT [id number] [facility] 2022-03-30 06:43:00 2022-03-30 09:05:00 Emergency Kiran Scales [facility] 1.2.840.114 350.1.13.10 4.2.7.2.686 [id number] [facility] 2022-03-28 09:45:00 2022-03-28 10:52:09 Outpatient R ELLIOT GOULD [facility] [id number] [facility] 2022-03-28 09:45:00 2022-03-28 10:52:09 [facility] 1.2.840.114 350.1.13.10 4.2.7.2.686 [id number] 134 [id number] [facility] 2022-03-14 09:40:00 2022-03-14 09:40:00 Outpatient R ALVERTO OLIVARES [facility] [id number] [facility] 2022-03-08 09:45:00 2022-03-08 10:14:58 Outpatient R ELLIOT GOULD [facility] [id number] [facility] 2022-03-08 09:45:00 2022-03-08 10:14:58 Routine [facility] 1.2.840.114 350.1.13.10 4.2.7.2.686 [id number] 134 [id number] [facility] 2022-02-26 15:51:00 2022-02-28 18:50:00 Inpatient P ELLIOT [facility] [id number] [facility] 2022-02-26 15:51:00 2022-02-28 18:50:00 Hospital Encounter Elliot Gould [facility] 1.2.840.114 350.1.13.10 4.2.7.2.686 [id number] [facility] 2022-02-26 15:00:00 2022-02-26 15:25:23 Outpatient R ELLIOT GOULD [facility] [id number] [facility] 2022-02-26 15:00:00 2022-02-26 15:25:23 Routine Visit Elliot Gould [facility] 1.2.840.114 350.1.13.10 4.2.7.2.686 [id number] 134 [id number] [facility] 2022-02-26 00:00:00 2022-02-26 00:00:00 Orders Only Doctor Unassigned, Emery [facility] 1.2840.114 350.1.13.10 4.2.7.2.686 [id number] [facility] 2022-02-26 00:00:00 2022-02-26 00:00:00 Prep For Surgery Elliot Gould [facility] 1.2840.114 350.1.13.10 4.2.7.2.686 [id number] 134 [id number] [facility] 2022-02-26 00:00:00 2022-02-26 00:00:00 Surgery Elliot Gould [facility] 1.2840.114 350.1.13.10 4.2.7.2.686 [id number] [facility] 2022-02-25 13:15:00 2022-02-25 15:05:00 Outpatient X SONIA MAYBERRY [facility] JAVAD [id number] [facility] 2022-02-25 13:15:00 2022-02-25 15:05:00 Emergency Sonia Mayberry [facility] 1.2840.114 350.1.13.10 4.2.7.2.686 [id number] [facility] 2022-02-25 00:00:00 2022-02-25 00:00:00 Orders Only Doctor Unassigned, Emery [facility] 1..114 350.1.13.10 4.2.7.2.686 [id number] [facility] 2022-02-23 10:30:00 2022-02-23 11:00:00 Information Delivery Analyst Visit 3, [facility] Usg Room [place] [facility] 1.0.114 350.1.13.10 4.2.7.2.686 [id number] [facility] 2022-02-23 10:30:00 2022-02-23 10:30:00 Outpatient P [facility] [id number] [facility] 2022-02-14 11:00:00 2022-02-14 11:50:02 Outpatient R ELLIOT GOULD [facility] [id number] [facility] 2022-02-14 11:00:00 2022-02-14 11:50:02 Routine Visit Elliot Gould [facility] 1..114 350.1.13.10 4.2.7.2.686 [id number] [facility] 2022-02-10 13:42:29 2022-02-10 23:59:00 Outpatient R ELLIOT GOULD [facility] [id number] [facility] 2022-02-10 13:42:29 2022-02-10 23:59:00 Hospital Encounter Yakov [facility] 1.840.114 350.1.13.10 4.2.7.2.686 [id number] [facility] 2022-02-10 13:41:56 2022-02-10 13:41:56 Hospital Encounter Yakov [facility] 1.840.114 350.1.13.10 4.2.7.2.686 [id number] [facility] 2022-02-09 00:00:00 2022-02-09 00:00:00 Case Management Elliot Gould [facility] 1.2840.114 350.1.13.10 4.2.7.2.686 [id number] 134 [id number] [facility] 2022-02-09 00:00:00 2022-02-09 00:00:00 Patient Secure Msg Elliot Goudl [facility] 1.840.114 350.1.13.10 4.2.7.2.686 [id number] 134 [id number] [facility] 2022-02-09 00:00:00 2022-02-09 00:00:00 Orders Only Doctor Unassigned, Emery [facility] 1.0.114 350.1.13.10 4.2.7.2.686 [id number] [facility] 2022-02-08 14:39:00 2022-02-08 22:01:00 Outpatient José Miguel MAYBERRY SONIA [facility] JAVAD [id number] [facility] 2022-02-08 14:39:00 2022-02-08 22:01:00 Emergency Elroy, Magalys Fregoso Vivian L [facility] 1..114 350.1.13.10 4.2.7.2.686 [id number] [id number] [facility] 2022-02-08 00:00:00 2022-02-08 00:00:00 Orders Only Doctor Unassigned, Emery [facility] 1..114 350.1.13.10 4.2.7.2.686 [id number] [facility] 2022-02-07 12:40:00 2022-02-07 12:55:59 Outpatient ALVERTO TEJADA [facility] [id number] Tim figueredo [facility] 2022-02-07 12:40:00 2022-02-07 12:55:59 Office Visit Alverto Olivares [facility] MED[facility] OFF[facility] BUILDING 1.2840.114 350.1.13.10 4.2.7.2.686 [id number] [facility] 2022-02-03 16:20:00 2022-02-03 21:24:00 Outpatient X ELLIOT GOULD [facility] JAVAD [id number] [facility] 2022-02-03 16:20:00 2022-02-03 21:24:00 Emergency Nataliya Dickson [facility] 1.2840.114 350.1.13.10 4.2.7.2.686 [id number] [facility] 2022-02-03 00:00:00 2022-02-03 00:00:00 Orders Only Doctor Unassigned, Emery [facility] 1.2840.114 350.1.13.10 4.2.7.2.686 [id number] [facility] 2022-02-01 20:31:00 2022-02-02 14:10:00 Inpatient X NOEL COOLEY [facility] JAVAD [id number] [facility] 2022-02-01 20:31:00 2022-02-02 14:10:00 Hospital Encounter Nithin Cooleyn [facility] 1.20.114 350.1.13.10 4.2.7.2.686 [id number] [facility] 2022-02-02 08:30:00 2022-02-02 08:30:00 Outpatient R [facility] [id number] [facility] 2022-02-01 09:45:00 2022-02-01 10:00:00 Information Delivery Analyst Visit Pob, Adc Lab Main Van[place]han, [facility] 1.2.840.114 350.1.13.10 4.2.7.2.686 [id number] [facility] 2022-02-01 09:45:00 2022-02-01 09:45:00 Outpatient R LOBO [facility] [id number] [facility] 2022-02-01 00:00:00 2022-02-01 00:00:00 Case Management Lobo [facility] 1.2.840.114 350.1.13.10 4.2.7.2.686 [id number] 134 [id number] [facility] 2022-02-01 00:00:00 2022-02-01 00:00:00 Patient Secure MsElliot Wild [facility] 1.2.840.114 350.1.13.10 4.2.7.2.686 [id number] 134 [id number] [facility] 2022-02-01 00:00:00 2022-02-01 00:00:00 Orders Only Doctor Unassigned, Emery [facility] 1.2.840.114 350.1.13.10 4.2.7.2.686 [id number] [facility] 2022-01-31 11:15:00 2022-01-31 11:57:42 Outpatient R GRETELMINEVRASHANNEN [facility] [id number] [facility] 2022-01-31 11:15:00 2022-01-31 11:57:42 Routine Visit Shari Diamond [facility] 1.2.840.114 350.1.13.10 4.2.7.2.686 [id number] 134 [id number] [facility] 2022-01-30 13:50:00 2022-01-30 17:35:00 [id number] 2022-01-30 13:50:00 2022-01-30 17:35:00 Hospital Encounter Elliot Gould [facility] 1.2.114 350.1.13.10 4.2.7.2.686 [id number] [facility] 2022-01-30 13:00:00 2022-01-30 13:15:00 Nurse Visit Nurse, [facility] Lobo Shari [facility] BUILDING 1.284.114 350.1.13.10 4.2.7.2.686 [id number] 134 [id number] [facility] 2022-01-30 13:00:00 2022-01-30 13:00:00 Outpatient R LOBO [facility] [id number] [facility] 2022-01-30 00:00:00 2022-01-30 00:00:00 Patient Secure MsLisset Gee [facility] BUILDING 1.284.114 350.1.13.10 4.2.7.2.686 [id number] 134 [id number] [facility] 2022-01-30 00:00:00 2022-01-30 00:00:00 Orders Only Doctor Unassigned, Emery [facility] 1.2.114 350.1.13.10 4.2.7.2.686 [id number] [facility] 2022-01-30 00:00:00 2022-01-30 00:00:00 Case Management Elliot Gould [facility] BUILDING 1.284.114 350.1.13.10 4.2.7.2.686 [id number] 134 [id number] [facility] 2022-01-28 22:59:00 2022-01-28 23:50:00 Outpatient SONIA ANDRADE [facility] JAVAD [id number] [facility] 2022-01-28 22:59:00 2022-01-28 23:50:00 Emergency AdSonia pierce [facility] 1.2840.114 350.1.13.10 4.2.7.2.686 [id number] [id number] [facility] 2022-01-28 00:00:00 2022-01-28 00:00:00 Orders Only Doctor Unassigned, Emery [facility] 1.2840.114 350.1.13.10 4.2.7.2.686 [id number] [facility] 2022-01-26 10:30:00 2022-01-26 11:30:51 Information Delivery Analyst Visit 3, [facility] Us Room Ran Arriaza [facility] 1.0.114 350.1.13.10 4.2.7.2.686 [id number] [facility] 2022-01-26 10:30:00 2022-01-26 10:30:00 Outpatient P RAN ARRIAZA SHANNON [facility] [id number] [facility] 2022-01-25 08:00:00 2022-01-25 08:00:00 Outpatient R [facility] [id number] [facility] 2022-01-19 00:00:00 2022-01-19 00:00:00 Telephone Derick Goulden [facility] BUILDING 1.0.114 350.1.13.10 4.2.7.2.686 [id number] 134 [id number] [facility] 2022-01-19 00:00:00 2022-01-19 00:00:00 Patient Secure Msg [facility] 1.2840.114 350.1.13.10 4.2.7.2.686 [id number] 134 [id number] [facility] 2022-01-18 08:30:00 2022-01-18 08:30:00 Outpatient R [facility] [id number] [facility] 2022-01-17 13:00:00 2022-01-17 13:50:08 Outpatient R ELLIOT GOULD [facility] [id number] [facility] 2022-01-17 13:00:00 2022-01-17 13:50:08 [facility]ine [facility] 1.2.840.114 350.1.13.10 4.2.7.2.686 [id number] 134 [id number] [facility] 2022-01-03 09:00:00 2022-01-03 09:00:00 Outpatient R LOBO [facility] [id number] [facility] 2021-12-20 09:00:00 2021-12-20 09:16:25 Outpatient R LOBO [facility] [id number] [facility] 2021-12-20 09:00:00 2021-12-20 09:16:25 Routine Visit Lobo [facility] 1.2.840.114 350.1.13.10 4.2.7.2.686 [id number] 134 [id number] [facility] 2021-12-15 08:30:00 2021-12-15 09:29:43 Information Delivery Analyst Visit 1, [facility] Us [facility] 1..840.114 350.1.13.10 4.2.7.2.686 [id number] 104 [id number] [facility] 2021-12-15 08:30:00 2021-12-15 08:30:00 Outpatient P ALISSA [facility] [id number] [facility] 2021-12-13 11:00:00 2021-12-13 11:00:00 Outpatient ALVERTO TEJADA [facility] [id number] [facility] 2021-11-22 11:00:00 2021-11-22 12:06:39 Outpatient R ELLIOT GOULD [facility] [id number] [facility] 2021-11-22 11:00:00 2021-11-22 12:06:39 Routine Visit Elliot Gould [facility] 1.2.840.114 350.1.13.10 4.2.7.2.686 [id number] 134 [id number] [facility] 2021-11-07 08:00:00 2021-11-07 09:15:48 Information Delivery Analyst Visit Ultrasound, Gus Luque [facility] USER SUPPORT [facility] 1..840.114 350.1.13.10 4.2.7.2.686 [id number] [facility] 2021-11-07 08:00:00 2021-11-07 08:00:00 Outpatient P GUS BOWER [facility] [id number] [facility] 2021-10-31 00:00:00 2021-10-31 00:00:00 Patient Secure Msg Elliot Gould [facility] 1.2.840.114 350.1.13.10 4.2.7.2.686 [id number] 134 [id number] [facility] 2021-10-24 15:30:00 2021-10-24 15:45:00 Information Delivery Analyst Visit 2, Adc Lab Lobo [facility] 1.2.840.114 350.1.13.10 4.2.7.2.686 [id number] [facility] 2021-10-24 15:30:00 2021-10-24 15:30:00 [facility]patient [facility] [id number] [facility] 2021-10-24 14:30:00 2021-10-24 15:01:58 Routine Visit Lynne Diamondcy [facility] 1.2840.114 350.1.13.10 4.2.7.2.686 [id number] 134 [id number] [facility] 2021-10-24 00:00:00 2021-10-24 00:00:00 Orders Only Doctor Unassigned, Emery [facility] 1.2840.114 350.1.13.10 4.2.7.2.686 [id number] [facility] 2021-10-11 00:00:00 2021-10-11 00:00:00 Telephone Elliot Gould [facility] 1.2840.114 350.1.13.10 4.2.7.2.686 [id number] [facility] 2021-09-26 13:15:00 2021-09-26 13:28:48 Outpatient R ELLIOT GOULD [facility] [id number] [facility] 2021-09-26 13:15:00 2021-09-26 13:28:48 Routine Visit Elliot Gould [facility] 1.2.840.114 350.1.13.10 4.2.7.2.686 [id number] 134 [id number] [facility] 2021-09-26 11:30:00 2021-09-26 11:45:00 Information Delivery Analyst Visit 2, Adc Lab Elliot Gould [facility] 1.2840.114 350.1.13.10 4.2.7.2.686 [id number] [facility] 2021-09-26 00:00:00 2021-09-26 00:00:00 Orders Only Doctor Unassigned, Emery [facility] 1.2840.114 350.1.13.10 4.2.7.2.686 [id number] [facility] 2021-09-21 00:00:00 2021-09-21 00:00:00 Letter (Out) Shari Diamond [facility] 1.2.840.114 350.1.13.10 4.2.7.2.686 [id number] 134 [id number] [facility] 2021-09-21 00:00:00 2021-09-21 00:00:00 Patient Secure Msg Lobo [facility] 1.2.840.114 350.1.13.10 4.2.7.2.686 [id number] 134 [id number] [facility] 2021-09-12 11:30:00 2021-09-12 11:30:00 Outpatient R [facility] [id number] [facility] 2021-08-29 14:00:00 2021-08-29 16:02:24 Outpatient R LOBO [facility] [id number] [facility] 2021-08-29 14:00:00 2021-08-29 14:15:00 Routine Visit Shair Diamond [facility] 1.2.840.114 350.1.13.10 4.2.7.2.686 [id number] 134 [id number] [facility] 2021-08-07 12:00:00 2021-08-07 12:15:00 Information Delivery Analyst Visit Pob, Adc Lab Elliot Andrews [facility] 1.2.840.114 350.1.13.10 4.2.7.2.686 [id number] [facility] 2021-08-07 12:00:00 2021-08-07 12:00:00 Outpatient R ELLIOT GOULD [facility] [id number] [facility] 2021-08-02 13:00:00 2021-08-02 13:00:00 Outpatient R [facility] [id number] [facility] 2021-08-01 13:00:00 2021-08-01 13:27:48 Outpatient R ELLIOT GOULD [facility] [id number] [facility] 2021-08-01 13:00:00 2021-08-01 13:27:48 [facility]ine [facility] 1.2840.114 350.1.13.10 4.2.7.2.686 [id number] 134 [id number] [facility] 2021-07-31 14:06:26 2021-07-31 23:59:00 Outpatient R ELLIOT GOULD [facility] [id number] [facility] 2021-07-31 14:06:26 2021-07-31 23:59:00 Hospital Encounter Elliot Gould [facility] 1.20.114 350.1.13.10 4.2.7.2.686 [id number] [id number] [facility] 2021-07-24 13:15:00 2021-07-24 13:30:00 Information Delivery Analyst Visit 2, Adc Lab Elliot Gould [facility] NAL BUILDING 1.2840.114 350.1.13.10 4.2.7.2.686 [id number] 353 [id number] [facility] 2021-07-24 13:15:00 2021-07-24 13:15:00 Outpatient R ELLIOT GOULD [facility] [id number] [facility] 2021-07-24 00:00:00 2021-07-24 00:00:00 Telephone Elliot Gould [facility] BUILDING 1.2840.114 350.1.13.10 4.2.7.2.686 [id number] 134 [id number] [facility] 2021-07-24 00:00:00 2021-07-24 00:00:00 Case Management Elliot Gould [facility] BUILDING 1.2840.114 350.1.13.10 4.2.7.2.686 [id number] 134 [id number] [facility] 2021-07-21 13:00:00 2021-07-21 13:15:00 Information Delivery Analyst Visit 2, Adc Lab Elliot Gould [facility] BUILDING 1.20.114 350.1.13.10 4.2.7.2.686 [id number] 353 [id number] [facility] 2021-07-21 13:00:00 2021-07-21 13:00:00 [facility] [id number] [facility] 2021-07-19 15:30:00 2021-07-19 15:45:00 Information Delivery Analyst Visit 2, Adc Lab Elliot Gould [facility] BUILDING 1.20.114 350.1.13.10 4.2.7.2.686 [id number] [facility] 2021-07-19 14:30:00 2021-07-19 15:11:33 [facility] [id number] [facility] 2021-07-19 14:30:00 2021-07-19 15:11:33 Initial Visit Elliot Gould [facility] BUILDING 1.20.114 350.1.13.10 4.2.7.2.686 [id number] 134 [id number] [facility] 2021-07-19 00:00:00 2021-07-19 00:00:00 Orders Only Doctor Unassigned, Emery [facility] 1.2840.114 350.1.13.10 4.2.7.2.686 [id number] 009 [id number] [facility] 2021-05-12 00:00:00 2021-05-12 00:00:00 Patient Secure Msg Shari Diamond [facility] ISABEL [facility] 1.2.114 350.1.13.10 4.2.7.2.686 [id number] 134 [id number] [facility] 2021-03-03 13:00:00 2021-03-03 13:00:00 Outpatient MANOLO Mendoza [facility] [id number] [facility] 2021-01-31 13:00:00 2021-01-31 13:00:00 Outpatient MANOLO Mendoza [facility] [id number] [facility] 2021-01-22 00:00:00 2021-01-22 00:00:00 Patient Secure Msg Doctor Unassigned, Emery [facility] 1..114 350.1.13.10 4.2.7.2.686 [id number] [facility] 2021-01-20 00:00:00 2021-01-20 00:00:00 Patient Secure Msg Doctor Unassigned, Emery [facility] 1.2.114 350.1.13.10 4.2.7.2.686 [id number] [id number] [facility] 2021-01-18 00:00:00 2021-01-18 00:00:00 Patient Secure Msg Doctor Unassigned, Emery [facility] 1.2.114 350.1.13.10 4.2.7.2.686 [id number] 019 [id number] [facility] 2021-01-17 00:00:00 2021-01-17 00:00:00 Transition of Care Adele Gonzalez 1..114 350.1.13.10 4.2.7.2.686 [id number] [facility] 2021-01-12 20:54:00 2021-01-15 15:00:00 Hospital [facility] 1.2.840.114 350.1.13.10 4.2.7.2.686 [id number] 090 [id number] [facility] 2021-01-12 14:58:23 2021-01-12 15:58:23 Office Visit Alverto Olivares [facility] Neurology Continuity 1.2.840.1 76053.1.1 3.104.2.7 .3.768694 .8 [id number] [facility] 2021-01-12 15:30:00 2021-01-12 15:30:00 Outpatient R ALVERTO OLIVARES [facility] [id number] [facility] 2021-01-12 00:00:00 2021-01-12 00:00:00 Travel 1.2.840.1 58285.1.1 3.104.2.7 .3.880618 .8 1.2.840.114 350.1.13.10 4.2.7.3.698 084.8 [id number] [facility] 2021-01-12 00:00:00 2021-01-12 00:00:00 Telephone Clinic, [facility] Neurology Continuity [facility] 1.2.840.114 350.1.13.10 4.2.7.2.686 [id number] [id number] [facility] 2021-01-09 13:30:00 2021-01-09 13:30:00 Outpatient R ALPHONSO MEJIA [facility] [id number] [facility] 2020-12-29 02:14:00 2020-12-29 02:47:00 Emergency Coleen Miller [facility] 1.2.840.114 350.1.13.10 4.2.7.2.686 [id number] 084 [id number] [facility] 2020-12-29 02:14:00 2020-12-29 02:47:00 Emergency Coleen Miller 1.2.840.1 41045.1.1 3.104.2.7 .3.820221 .8 [id number] [facility] 2020-12-29 00:00:00 2020-12-29 00:00:00 Travel 1.2.840.1 22769.1.1 3.104.2.7 .3.251233 .8 1.2.840.114 350.1.13.10 4.2.7.3.698 084.8 [id number] [facility] 2020-12-23 10:00:00 2020-12-23 10:00:00 Outpatient LISA ROSALES [facility] [id number] [facility] 2020-12-19 00:00:00 2020-12-19 00:00:00 Outpatient COSME BOYER [facility] [id number] [facility] 2020-12-13 00:00:00 2020-12-13 00:00:00 Travel 1.2.840.1 76576.1.1 3.104.2.7 .3.288520 .8 1.2.840.114 350.1.13.10 4.2.7.3.698 084.8 [id number] [facility] 2020-12-12 14:30:00 2020-12-12 14:30:00 Outpatient SHARI IZAGUIRRE [facility] [id number] [facility] 2020-12-02 09:17:22 2020-12-02 09:47:22 Office Visit Cosme Brennan [facility] RANDEE NORIEGA 1.2.840.114 350.1.13.10 4.2.7.2.686 [id number] [facility] 2020-12-02 09:17:22 2020-12-02 09:47:22 Office Visit Cosme Brennan 1.2.840.1 94300.1.1 3.104.2.7 .3.097366 .8 [id number] [facility] 2020-12-02 09:30:00 2020-12-02 09:30:00 Outpatient R COSME BRENNAN [facility] [id number] [facility] 2020-12-02 00:00:00 2020-12-02 00:00:00 Travel 1.2.840.1 78836.1.1 3.104.2.7 .3.946912 .8 1.2.840.114 350.1.13.10 4.2.7.3.698 084.8 [id number] [facility] 2020-11-21 23:30:00 2020-11-22 01:52:00 Emergency Melissa Romeo [facility] 1.2.840.114 350.1.13.10 4.2.7.2.686 [id number] 084 [id number] [facility] 2020-11-21 23:30:00 2020-11-22 01:52:00 Emergency Melissa Romeo 1.2.840.1 55601.1.1 3.104.2.7 .3.147470 .8 [id number] [facility] 2020-11-22 00:00:00 2020-11-22 00:00:00 Patient Secure Msg Doctor Unassigned, Emery [facility] 1.2840.114 350.1.13.10 4.2.7.2.686 [id number] 019 [id number] [facility] 2020-11-21 00:00:00 2020-11-21 00:00:00 Orders Only Doctor Unassigned, Emery [facility] 1.2840.114 350.1.13.10 4.2.7.2.686 [id number] 009 [id number] [facility] 2020-11-21 00:00:00 2020-11-21 00:00:00 Travel 1.2.840.1 47696.1.1 3.104.2.7 .3.355623 .8 1.2.840.114 350.1.13.10 4.2.7.3.698 084.8 [id number] [facility] 2020-11-21 00:00:00 2020-11-21 00:00:00 Orders Only Doctor Unassigned, Emery 1.2.840.1 53644.1.1 3.104.2.7 .3.076645 .8 [id number] [facility] 2020-11-08 08:00:00 2020-11-08 08:00:00 Outpatient SHARI IZAGUIRRE [facility] [id number] [facility] 2020-11-07 12:50:14 2020-11-07 14:30:12 Office Visit Shari Diamond 1.2.840.1 89817.1.1 3.104.2.7 .3.859193 .8 [id number] [facility] 2020-11-07 12:50:14 2020-11-07 13:20:14 Office Visit Shari Diamond [facility] 1.2.840.114 350.1.13.10 4.2.7.2.686 [id number] 134 [id number] [facility] 2020-11-07 13:00:00 2020-11-07 13:00:00 Outpatient SHARI IZAGUIRRE [facility] [id number] [facility] 2020-11-07 00:00:00 2020-11-07 00:00:00 Travel 1.2.840.1 69270.1.1 3.104.2.7 .3.903368 .8 1.2.840.114 350.1.13.10 4.2.7.3.698 084.8 [id number] [facility] 2020-11-03 03:41:00 2020-11-03 03:41:00 Outpatient FRANKIE_JEAN PAUL [facility] [id number] Juanreji [facility] 2020-10-27 01:43:00 2020-10-27 03:43:00 Emergency Nkechi Olivares Abdirashid Guajardo [facility] 1.2.840.114 350.1.13.10 4.2.7.2.686 [id number] 084 [id number] [facility] 2020-10-27 01:43:00 2020-10-27 03:43:00 Emergency Nkechi Olivares Phillip 1.2.840.1 08532.1.1 3.104.2.7 .3.528890 .8 [id number] [facility] 2020-10-27 00:00:00 2020-10-27 00:00:00 Travel 1.2.840.1 13749.1.1 3.104.2.7 .3.307897 .8 1.2.840.114 350.1.13.10 4.2.7.3.698 084.8 [id number] [facility] 2020-10-25 17:16:00 2020-10-25 20:33:00 Emergency Nkechi Olivares [facility] 1.2.840.114 350.1.13.10 4.2.7.2.686 [id number] 084 [id number] [facility] 2020-10-25 17:16:00 2020-10-25 20:33:00 Emergency Nkechi Olivares 1.2.840.1 65550.1.1 3.104.2.7 .3.319975 .8 [id number] [facility] 2020-10-25 00:00:00 2020-10-25 00:00:00 Travel 1.2.840.1 67760.1.1 3.104.2.7 .3.066595 .8 1.2.840.114 350.1.13.10 4.2.7.3.698 084.8 [id number] [facility] 2020-09-28 14:26:34 2020-09-28 14:46:15 Nurse Visit [facility], [facility] Building 1.2.840.114 350.1.13.10 4.2.7.2.686 [id number] 134 [id number] [facility] 2020-09-28 14:30:00 2020-09-28 14:30:00 Outpatient R [facility] [id number] [facility] 2020-09-28 00:00:00 2020-09-28 00:00:00 Patient Secure Msg Lobo [facility] 1.2.840.114 350.1.13.10 4.2.7.2.686 [id number] 134 [id number] [facility] 2020-08-23 14:30:00 2020-08-23 14:30:00 Outpatient R SHARI DIAMOND [facility] [id number] [facility] 2020-08-17 00:00:00 2020-08-17 00:00:00 Patient Secure Msg Lobo [facility] BUILDING 1.2.840.114 350.1.13.10 4.2.7.2.686 [id number] 134 [id number] [facility] 2020-08-16 00:00:00 2020-08-16 00:00:00 Patient Secure Msg Lobo [facility] BUILDING 1.2.840.114 350.1.13.10 4.2.7.2.686 [id number] 134 [id number] [facility] 2020-08-15 00:00:00 2020-08-15 00:00:00 Case Management Gretelminervaan, [facility] 1.2.840.114 350.1.13.10 4.2.7.2.686 [id number] 134 [id number] [facility] 2020-08-12 00:00:00 2020-08-12 00:00:00 Telephone Shari Diamond [facility] Building 1.2.840.114 350.1.13.10 4.2.7.2.686 [id number] 134 [id number] [facility] 2020-08-12 00:00:00 2020-08-12 00:00:00 Patient Secure Msg Shari Diamond [facility] 1.2.840.114 350.1.13.10 4.2.7.2.686 [id number] 134 [id number] [facility] 2020-08-11 00:00:00 2020-08-11 00:00:00 Case Management Shari Diamond [facility] 1.2.840.114 350.1.13.10 4.2.7.2.686 [id number] 134 [id number] [facility] 2020-08-11 00:00:00 2020-08-11 00:00:00 Telephone Shari Diamond [facility] 1.2.840.114 350.1.13.10 4.2.7.2.686 [id number] 134 [id number] [facility] 2020-08-10 14:26:30 2020-08-10 15:20:57 [facility] 1.2.840.114 350.1.13.10 4.2.7.2.686 [id number] 134 [id number] [facility] 2020-08-10 14:45:00 2020-08-10 14:45:00 Outpatient R SHARI DIAMOND [facility] [id number] [facility] 2020-08-10 00:00:00 2020-08-10 00:00:00 Orders Only Doctor Unassigned, Emery [facility] 1.2840.114 350.1.13.10 4.2.7.2.686 [id number] 009 [id number] [facility] 2020-07-12 00:00:00 2020-07-12 00:00:00 Patient Outreach Macario Arriaza [facility] 1.2.114 350.1.13.10 4.2.7.2.686 [id number] [facility] 2020-04-06 10:30:00 2020-04-06 10:30:00 Outpatient Reji [facility] [id number] [facility] 2020-03-25 13:00:00 2020-03-25 13:00:00 Outpatient Reji [facility]AMOND [facility] [id number] [facility] 2020-02-19 09:30:00 2020-02-19 09:30:00 Outpatient TAYLOR WOOD [facility] [id number] [facility] 2019-12-04 09:00:00 2019-12-04 09:00:00 Outpatient Reji DIAMOND [facility] [id number] [facility] 2019-09-24 14:37:46 2019-09-24 14:52:46 Routine Visit Lobo [facility] 1.2840.114 350.1.13.10 4.2.7.2.686 [id number] 134 [id number] 2019-09-24 14:37:46 2019-09-24 14:52:46 Routine Visit Ghanshyamshannen [facility] Building 1.2840.114 350.1.13.10 4.2.7.2.686 [id number] 134 [id number] [facility] 2019-09-24 14:45:00 2019-09-24 14:45:00 Outpatient R SHARI DIAMOND [facility] [id number] [facility] 2019-08-27 04:09:00 2019-08-28 21:10:00 Hospital Encounter Elliot Gould [facility] 1.2.840.114 350.1.13.10 4.2.7.2.686 [id number] 083 [id number] 2019-08-27 04:09:00 2019-08-28 21:10:00 Hospital Encounter Elliot Gould [facility] 1.2.840.114 350.1.13.10 4.2.7.2.686 [id number] 083 [id number] [facility] 2019-08-26 10:10:09 2019-08-26 10:37:20 Routine Visit Elliot oGuld [facility] Building 1.2.840.114 350.1.13.10 4.2.7.2.686 [id number] 134 [id number] [facility] 2019-08-26 10:15:00 2019-08-26 10:15:00 Outpatient R ELLIOT GOULD [facility] [id number] [facility] 2019-08-26 09:23:44 2019-08-26 09:30:04 Laboratory Only Only, Adc Test [facility] Building 1.2.840.114 350.1.13.10 4.2.7.2.686 [id number] 2019-08-26 09:23:44 2019-08-26 09:30:04 Laboratory Only Only, Adc Test Elliot Gould [facility] Building 1.2.840.114 350.1.13.10 4.2.7.2.686 [id number] 353 [id number] [facility] 2019-08-25 00:00:00 2019-08-25 00:00:00 Patient Secure Msg Elliot oGuld [facility] Building 1.2.840.114 350.1.13.10 4.2.7.2.686 [id number] 134 [id number] 2019-08-25 00:00:00 2019-08-25 00:00:00 Patient Secure Msg Elliot Gould [facility] nal Building 1.2.840.114 350.1.13.10 4.2.7.2.686 [id number] 134 [id number] 2019-08-25 00:00:00 2019-08-25 00:00:00 Patient Secure Msg Elliot Gould [facility] Building 1.2.840.114 350.1.13.10 4.2.7.2.686 [id number] 134 [id number] [facility] 2019-08-25 00:00:00 2019-08-25 00:00:00 Patient Secure Msg Elliot Gould [facility] Building 1.2.840.114 350.1.13.10 4.2.7.2.686 [id number] 134 [id number] [facility] 2019-08-24 00:00:00 2019-08-24 00:00:00 Patient Secure Msg Elliot Gould [facility] Building 1.2.840.114 350.1.13.10 4.2.7.2.686 [id number] 134 [id number] 2019-08-24 00:00:00 2019-08-24 00:00:00 Patient Secure Msg Elliot Gould [facility] nal Building 1.2.840.114 350.1.13.10 4.2.7.2.686 [id number] 134 [id number] 2019-08-24 00:00:00 2019-08-24 00:00:00 Patient Secure Msg Elliot Gould [facility] nal Building 1.2.840.114 350.1.13.10 4.2.7.2.686 [id number] 134 [id number] [facility] 2019-08-24 00:00:00 2019-08-24 00:00:00 Patient Secure Msg Elliot Gould [facility] Building 1.2.840.114 350.1.13.10 4.2.7.2.686 [id number] 134 [id number] [facility] 2019-08-20 00:00:00 2019-08-20 00:00:00 Patient Secure Msg [facility] 1.2.840.114 350.1.13.10 4.2.7.2.686 [id number] 134 [id number] 2019-08-20 00:00:00 2019-08-20 00:00:00 Telephone Elliot Gould [facility] Building 1.2.840.114 350.1.13.10 4.2.7.2.686 [id number] 134 [id number] [facility] 2019-08-20 00:00:00 2019-08-20 00:00:00 Case Management Shari Diamond [facility] nal Building 1.2.840.114 350.1.13.10 4.2.7.2.686 [id number] 134 [id number] [facility] 2019-08-20 00:00:00 2019-08-20 00:00:00 Patient Secure Msg [facility] 1.2.840.114 350.1.13.10 4.2.7.2.686 [id number] 134 [id number] [facility] 2019-08-19 16:00:00 2019-08-19 16:00:00 Outpatient R ELLIOT GOULD [facility] [id number] [facility] 2019-08-19 09:52:56 2019-08-19 10:34:36 Routine Visit Elliot Gould [facility] nal Building 1.2.840.114 350.1.13.10 4.2.7.2.686 [id number] 134 [id number] [facility] 2019-08-17 16:00:00 2019-08-17 16:00:00 Outpatient R SHARI DIAMOND [facility] [id number] [facility] 2019-08-13 16:05:07 2019-08-13 17:19:59 Routine Visit Elliot Gould [facility] 1..840.114 350.1.13.10 4.2.7.2.686 [id number] 134 [id number] [facility] 2019-08-13 16:00:00 2019-08-13 16:00:00 Outpatient R ELLIOT GOULD [facility] [id number] [facility] 2019-08-07 09:30:00 2019-08-07 09:30:00 [facility] [id number] [facility] 2019-08-06 10:44:08 2019-08-06 14:10:20 Routine Visit Lobo [facility] 1..840.114 350.1.13.10 4.2.7.2.686 [id number] 134 [id number] [facility] 2019-08-06 11:15:00 2019-08-06 11:15:00 [facility] [id number] [facility] 2019-08-06 00:00:00 2019-08-06 00:00:00 Patient Secure Msg Elliot Gould [facility] Building 1..840.114 350.1.13.10 4.2.7.2.686 [id number] 134 [id number] 2019-08-06 00:00:00 2019-08-06 00:00:00 Patient Secure Msg Elliot Gould [facility] Building 1..840.114 350.1.13.10 4.2.7.2.686 [id number] 134 [id number] [facility] 2019-08-03 17:06:00 2019-08-03 20:15:00 Hospital Encounter Elliot Gould [facility] 1.2.840.114 350.1.13.10 4.2.7.2.686 [id number] 083 [id number] [facility] 2019-08-03 00:00:00 2019-08-03 00:00:00 Patient Secure Msg [facility] Gould [facility] 1.2.840.114 350.1.13.10 4.2.7.2.686 [id number] 134 [id number] 2019-08-03 00:00:00 2019-08-03 00:00:00 Telephone Elliot Gould [facility] nal Building 1.2.840.114 350.1.13.10 4.2.7.2.686 [id number] 134 [id number] [facility] 2019-08-03 00:00:00 2019-08-03 00:00:00 Patient Secure Msg Elliot Gould [facility] 1.2.840.114 350.1.13.10 4.2.7.2.686 [id number] 134 [id number] [facility] 2019-07-21 16:00:00 2019-07-21 16:00:00 Outpatient R ELLIOT GOULD [facility] [id number] [facility] 2019-07-21 08:29:12 2019-07-21 15:14:02 Telemedici ne Visit Elliot Gould [facility] nal Building 1.2.840.114 350.1.13.10 4.2.7.2.686 [id number] 134 [id number] [facility] 2019-07-20 00:00:00 2019-07-20 00:00:00 Patient Secure Msg [facility] 1.2.840.114 350.1.13.10 4.2.7.2.686 [id number] 134 [id number] [facility] 2019-07-20 00:00:00 2019-07-20 00:00:00 Patient Secure Msg Elliot Gould [facility] Building 1.2.840.114 350.1.13.10 4.2.7.2.686 [id number] 134 [id number] [facility] 2019-07-20 00:00:00 2019-07-20 00:00:00 Patient Secure Msg Elliot Gould [facility] Building 1.2.840.114 350.1.13.10 4.2.7.2.686 [id number] 134 [id number] [facility] 2019-07-17 16:49:00 2019-07-17 19:25:00 Outpatient P ELLIOT GOULD [facility] JAVAD [id number] [facility] 2019-07-17 16:49:00 2019-07-17 19:25:00 Hospital Encounter Elliot Gould [facility] 1.2.840.114 350.1.13.10 4.2.7.2.686 [id number] 083 [id number] [facility] 2019-07-17 00:00:00 2019-07-17 00:00:00 Patient Secure Msg Elliot Gould [facility] Building 1.2.840.114 350.1.13.10 4.2.7.2.686 [id number] 134 [id number] [facility] 2019-07-17 00:00:00 2019-07-17 00:00:00 Patient Secure Msg Elliot Gould [facility] Building 1.2.840.114 350.1.13.10 4.2.7.2.686 [id number] 134 [id number] [facility] 2019-07-16 00:00:00 2019-07-16 00:00:00 Patient Secure Msg Elliot Gould [facility] Professio nal Building 1.2.840.114 350.1.13.10 4.2.7.2.686 [id number] 134 [id number] [facility] 2019-07-06 11:15:00 2019-07-06 11:15:00 Outpatient R SHARI DIAMOND [facility] [id number] [facility] 2019-07-06 10:41:18 2019-07-06 10:56:18 Routine Visit [facility]ari [facility] 1.2.840.114 350.1.13.10 4.2.7.2.686 [id number] 134 [id number] [facility] 2019-06-30 00:00:00 2019-06-30 00:00:00 Patient Secure Msg Elliot Gould [facility] 1.2.840.114 350.1.13.10 4.2.7.2.686 [id number] 134 [id number] [facility] 2019-06-30 00:00:00 2019-06-30 00:00:00 Patient Secure Msg Elliot Gould [facility] 1.2.840.114 350.1.13.10 4.2.7.2.686 [id number] 134 [id number] [facility] 2019-06-29 15:38:14 2019-06-29 16:52:02 [facility]ine [facility] 1.2.840.114 350.1.13.10 4.2.7.2.686 [id number] 134 [id number] [facility] 2019-06-29 15:45:00 2019-06-29 15:45:00 [facility] [id number] [facility] 2019-06-29 13:15:00 2019-06-29 13:15:00 Outpatient R ELLIOT GOULD [facility] [id number] [facility] 2019-06-26 08:39:29 2019-06-26 08:54:29 Information Delivery Analyst Visit 2, Adc Lab Shari Diamond [facility] Building 1.2.840.114 350.1.13.10 4.2.7.2.686 [id number] [facility] 2019-06-26 08:45:00 2019-06-26 08:45:00 Outpatient R LOBO [facility] [id number] [facility] 2019-06-26 07:58:11 2019-06-26 08:35:45 Routine Visit Shari Diamond [facility] 1..840.114 350.1.13.10 4.2.7.2.686 [id number] 134 [id number] [facility] 2019-06-26 00:00:00 2019-06-26 00:00:00 Orders Only Doctor Unassigned, Emery [facility] 1.84.114 350.1.13.10 4.2.7.2.686 [id number] [facility] 2019-06-25 00:00:00 2019-06-25 00:00:00 Patient Secure Elliot Harrison [facility] 1.84.114 350.1.13.10 4.2.7.2.686 [id number] 134 [id number] [facility] 2019-06-25 00:00:00 2019-06-25 00:00:00 Patient Secure Elliot Harrison [facility] Building 1.284.114 350.1.13.10 4.2.7.2.686 [id number] 134 [id number] [facility] 2019-06-18 00:00:00 2019-06-18 00:00:00 Patient Secure Elliot Harrison [facility] 1.2.840.114 350.1.13.10 4.2.7.2.686 [id number] 134 [id number] [facility] 2019-06-01 14:22:27 2019-06-01 14:37:27 Routine Visit Shari Diamond [facility] 1.2.840.114 350.1.13.10 4.2.7.2.686 [id number] 134 [id number] [facility] 2019-05-29 23:53:41 2019-05-30 02:39:00 Emergency Abner Lgauna [facility] 1.2.840.114 350.1.13.10 4.2.7.2.686 [id number] [facility] 2019-05-29 00:00:00 2019-05-29 00:00:00 Orders Only Doctor Unassigned, Emery [facility] 1.2.840.114 350.1.13.10 4.2.7.2.686 [id number] [facility] 2019-01-06 15:20:13 2019-01-06 16:47:07 Initial Visit Shari Diamond Vien [facility] 1.2.840.114 350.1.13.10 4.2.7.2.686 [id number] [facility] 2019-01-06 00:00:00 2019-01-06 00:00:00 Orders Only Doctor Unassigned, Emery [facility] 1.2.840.114 350.1.13.10 4.2.7.2.686 [id number] [facility] Results Test Description Test Time Test Comments Results Result Co mments Source [facility]OL[facility] PAN[facility] ([id number])2022-07-31 03:41:09* Test Item Value Reference Range Interpretation Comme nts NA (test code = 2581050225) 140 mmol/L 135-145 K (test code = 5018342496) 4.0 mmol/L 3.5-5.0 CL (test code = 9533294284) 100 mmol/L 98-108 CO2 TOTAL (test code = 6207855632) 29 mmol/L 23-31 AGAP (test code = 5833273768) 11 2-16 BUN (test code = 5382432616) 14 mg/dL 7-23 GLUCOSE (test code = 8949516748) 98 mg/dL 70-110 CREATININE (test code = 6130924629) 0.68 mg/dL 0.50-1.04 TOTAL BILI (test code = 5352796197) 1.3 mg/dL 0.1-1.1 H CALCIUM (test code = 1589732189) 10.1 mg/dL 8.6-10.6 T PROTEIN (test code = 2630468138) 8.2 g/dL 6.3-8.2 ALBUMIN (test code = 2273347942) 4.8 g/dL 3.5-5.0 ALK PHOS (test code = 3458003438) 77 U/L 34-122 ALTv (test code = 1742-6) 20 U/L 5-35 AST(SGOT) (test code = 7659075936) 21 U/L 13-40 eGFR (test code = 6009243449) 105.4 mL/min/1.73m2 ZAYRA (test code = ZAYRA) Association of Glomerular Filtration Rate (GFR) and Staging of Kidney Disease* + --+ --+ ------+| GFR (mL/min/1.73 m2) ?| With Kidney Damage ?| ?Without Kidney Damage+ --------+ --------+ +| ?>90 ?| ?Stage one ?| ? Normal ?+ ---+ ---+ -------+| ?60-89 ?| ?Stage two ?| ? Decreased GFR ? + --+ --+ ------+| ?30-59 ?| ?Stage three ?| ? Stage three ? + --+ --+ ------+| ?15-29 ?| ?Stage four ? | ? Stage four ?+ ---+ ---+ -------+| ?<15 (or dialysis) ? ?| ?Stage five ? | ? Stage five ?+ ---+ ---+ -------+ *Each stage assumes the associated GFR level has been in effect for at least three months. ?Stages 1 to 5, with or without kidney disease, indicate chronic kidney disease. Notes: Determination of stages one and two (with eGFR >59mL/min/1.73 m2) requires estimation of kidney damage for at least three months as defined by structural or functional abnormalities of the kidney, manifested by either:Pathological abnormalities or Markers of kidney damage (including abnormalities in the composition of the blood or urine or abnormalities in imaging tests). Lab Interpretation (test code = 48869-2) Abnormal [facility]2023-04-11 03:41:09* Test Item Value Reference Range Interpretation Comme nts MAGNESIUM (test code = 7589139549) 1.8 mg/dL 1.7-2.4 Lab Interpretation (test cod e = 73241-4) Normal [facility] [id number] 03:16:00* Test Item Value Reference Range Interpretation Comme nts POCT PREG (test code = 1605) Negative On board controls acceptable with C Line (test code = 3574) Positive POCT PREG LOT # (test code = 3575) [id number] POCT PREG TEST DATE ( test code = 3576) 11/28/2023 Lab Interpretation (test cod e = 46173-4) Normal [facility] [id number] 17:21:00* Test Item Value Reference Range Interpretation Comme nts POCT PREG (test code = 1605) Negative On board controls acceptable with C Line (test code = 3574) Yes POCT PREG LOT # (test code = 3575) POCT PREG TEST DATE ( test code = 3576) [facility] [id number] 17:21:00* Test Item Value Reference Range Interpretation Comme nts POCT PREG (test code = 1605) Negative On board controls acceptable with C Line (test code = 3574) Yes POCT PREG LOT # (test code = 3575) POCT PREG TEST DATE ( test code = 3576) [facility]ballRH (D) IMMUNE [id number] 03:32:31* Test Item Value Reference Range Interpretation Comme nts RHIG CANDIDATE? (test code = 5055) No- see comment Patient is not a candidate for RhIg- Patient is Rh Positive.Performed at [facility] Blood [place] [address]Toll Free: [phone] No. [id number] [facility]ballRHO (D) IMMUNE [id number] 03:32:31* Test Item Value Reference Range Interpretation Comme nts RHIG CANDIDATE? (test code = 5055) No- see comment Patient is not a candidate for RhIg- Patient is Rh Positive.Performed at [facility] Blood [place] [address]Toll Free: [phone] No. [id number] [facility]ballType and Screen - ONCE [id number] 00:15:31 * Test Item Value Reference Range Interpretation Comme nts ABO & RH (test code = 20) O Positive Performed at [facility] Blood [place] [address]Toll Free: [phone] No. [id number] IAT (test code = 1185) Negative Performed at [facility] Blood [address]Toll Free: [phone] No. [id number] [facility]ball[facility] and Screen - ONCE [id number] 00:15:31 * Test Item Value Reference Range Interpretation Comme nts ABO & RH (test code = 20) O Positive Performed at [facility] Blood [address]Toll Free: [phone] No. [id number] IAT (test code = 1185) Negative Performed at [facility] [address]Toll Free: [phone] No. [id number] [facility]ballPOCT URINALYSIS W/O SPECIFIC [id number] 20:54:00* Test Item Value Reference Range Interpretation Comme nts POCT PH U (test code = 3254) n/a 5-8 POCT U LEUK EST (test code = 3263) n/a Negative - Negative POCT U NIT (test code = 3262) n/a Negative - Negati ve POCT U PROT (test code = 3259) trace Negative - Negat nadja POCT U GLU (test code = 3256) negative Negative - Negati ve POCT U KETONE (test code = 3258) n/a Negative - Neg ative POCT U BLD (test code = 3257) n/a Negative - Negati ve [facility] URINALYSIS W/O SPECIFIC [id number] 15:42:00* Test Item Value Reference Range Interpretation Comme nts POCT PH U (test code = 3254) n/a 5-8 POCT U LEUK EST (test code = 3263) n/a Negative - Negative POCT U NIT (test code = 3262) n/a Negative - Negati ve POCT U PROT (test code = 3259) negative Negative - Negat nadja POCT U GLU (test code = 3256) Negative - Negati ve POCT U KETONE (test code = 3258) n/a Negative - Neg ative POCT U BLD (test code = 3257) n/a Negative - Negati ve [facility] GLUCOSE (AUTOMATED)2022-02-03 21:48:52* Test Item Value Reference Range Interpretation Comme nts POCT GLU (test code = 8317581407) 95 mg/dL 70-110 Lab Interpretation (test cod e = 15799-0) Normal [facility]ballGALV ONLY - SYPHILIS [id number] 15:20:31* Test Item Value Reference Range Interpretation Comme nts Syphilis IgG/IgM (test code = 47035-1) Non-reactive Non-reactive ZAYRA (test code = ZAYRA) Non-reactive - No serologic evidence of T. pallidum infection. Cannot exclude incubating or early syphilis. Submit a second specimen in 2-4 weeks if syphilis is clinically suspected. Equivocal - Further testing to follow. Reactive - Further testing to follow. Lab Interpretation (test code = 99929-9) Normal [facility]ball[facility] and Screen - ONCE [id number] 08:06:59 * Test Item Value Reference Range Interpretation Comme nts ABO & RH (test code = 20) O POSITIVE Performed at [facility] Laboratory Services [facility] Blood [place] [id number] Free: [phone] No. [id number] IAT (test code = 1185) Negative Performed at [facility] Laboratory Services [facility] Blood [place] [id number] Free: [phone] No. [id number] [facility]ballHIV 1/2 AG-AB WITH [id number] 07:40:27* Test Item Value Reference Range Interpretation Comme nts HIV Semi-quantitative (test code = 90746-1) Negative Negative ZAYRA (test code = ZAYRA) Non-reactive for HIV-1 antigen and HIV-1/HIV-2 antibodies. ?No laboratory evidence of HIV infection. ?Repeat in 2-4 weeks if acute HIV infection is suspected. [facility]ballHEPATITIS B SURFACE [id number] 06:16:55 * Test Item Value Reference Range Interpretation Comme nts HBsAg Semi-Quantitative (amelia t code = 5195-3) Negative Negative [facility] TomballUric Acid [id number] 05:27:07* Test Item Value Reference Range Interpretation Comme nts URIC ACID (test code = 3327523783) 3.6 mg/dL 2.9-6 Lab Interpretation (test cod e = 47230-1) Normal [facility]ball[facility]. METABOLIC PANEL (97297)2022-02-02 05:27:07* Test Item Value Reference Range Interpretation Comme nts NA (test code = 7687065591) 137 mmol/L 135-145 K (test code = 3241770258) 4.2 mmol/L 3.5-5 CL (test code = 6922559728) 103 mmol/L 98-108 CO2 TOTAL (test code = 8908116084) 26 mmol/L 23-31 AGAP (test code = 3112959754) 2-16 BUN (test code = 8397507810) 5 mg/dL 7-23 L GLUCOSE (test code = 5545034284) 98 mg/dL 70-110 CREATININE (test code = 7720480359) 0.42 mg/dL 0.5-1.04 L TOTAL BILI (test code = 9151222365) 0.9 mg/dL 0.1-1.1 CALCIUM (test code = 6240247174) 9.0 mg/dL 8.6-10.6 T PROTEIN (test code = 8956134549) 6.8 g/dL 6.3-8.2 ALBUMIN (test code = 0133808604) 3.3 g/dL 3.5-5 L ALK PHOS (test code = 1795485070) 141 U/L 34-122 H ALTv (test code = 1742-6) 7 U/L 5-35 AST(SGOT) (test code = 6015168705) 20 U/L 13-40 eGFR (test code = 4020616450) mL/min/1.73m2 ZAYRA (test code = ZAYRA) Association of Glomerular Filtration Rate (GFR) and Staging of Kidney Disease* + --+ --+ ------+| GFR (mL/min/1.73 m2) ?| With Kidney Damage ?| ?Without Kidney Damage+ --------+ --------+ +| ?>90 ?| ?Stage one ?| ? Normal ?+ ---+ ---+ -------+| ?60-89 ?| ?Stage two ?| ? Decreased GFR ? + --+ --+ ------+| ?30-59 ?| ?Stage three ?| ? Stage three ? + --+ --+ ------+| ?15-29 ?| ?Stage four ? | ? Stage four ?+ ---+ ---+ -------+| ?<15 (or dialysis) ? ?| ?Stage five ? | ? Stage five ?+ ---+ ---+ -------+ *Each stage assumes the associated GFR level has been in effect for at least three months. ?Stages 1 to 5, with or without kidney disease, indicate chronic kidney disease. Notes: Determination of stages one and two (with eGFR >59mL/min/1.73 m2) requires estimation of kidney damage for at least three months as defined by structural or functional abnormalities of the kidney, manifested by either:Pathological abnormalities or Markers of kidney damage (including abnormalities in the composition of the blood or urine or abnormalities in imaging tests). Lab Interpretation (test code = 92298-8) Abnormal [facility] TomballLactate [id number] 05:25:26* Test Item Value Reference Range Interpretation Comme nts LDH (test code = 7526909911) 172 U/L 120-246 Lab Interpretation (test cod e = 17138-3) Normal [facility] TomballCB with [id number] 05:03:49* Test Item Value Reference Range Interpretation Comme nts WBC (test code = 6690-2) See_Comment H [Automated message] The system which generated this result transmitted reference range: 4.30 - 11.10 10*3/?L. The reference range was not used to interpret this result as normal/abnormal. RBC (test code = 789-8) See_Comment L [Automated message] The system which generated this result transmitted reference range: 3.93 - 5.25 10*6/?L. The reference range was not used to interpret this result as normal/abnormal. HGB (test code = 718-7) 11.0 g/dL 11.6-15 L HCT (test code = 4544-3) 33.0 % 35.7-45.2 L MCV (test code = 787-2) 85.1 fL 80.6-95.5 MCH (test code = 785-6) 28.4 pg 25.9-32.8 MCHC (test code = 786-4) 33.3 g/dL 31.6-35.1 RDW-SD (test code = 00754-7) 41.2 fL 39-49.9 RDW-CV (test code = 788-0) 13.5 % 12-15.5 PLT (test code = 777-3) See_Comment [Automated message] The system which generated this result transmitted reference range: 166 - 358 10*3/?L. The reference range was not used to interpret this result as normal/abnormal. MPV (test code = 79422-3) 10.4 fL 9.5-12.9 NRBC/100 WBC (test code = 1914903787) See_Comment [Automated message] The system which generated this result transmitted reference range: 0.0 - 10.0 /100 WBCs. The reference range was not used to interpret this result as normal/abnormal. NRBC x10^3 (test code = 2923310986) See_Comment [Automated message] The system which generated this result transmitted reference range: 10*3/?L. The reference range was not used to interpret this result as normal/abnormal. GRAN MAT (NEUT) % (test code = 770-8) 74.5 % IMM GRAN % (test code = 0589881283) 0.40 % LYMPH % (test code = 736-9) 16.4 % MONO % (test code = 5905-5) 8.2 % EOS % (test code = 713-8) 0.3 % BASO % (test code = 706-2) 0.2 % GRAN MAT x10^3(ANC) (test code = 8021050275) 11.33 10*3/uL 1.88-7.09 H IMM GRAN x10^3 (test code = 8920325957) 0.06 10*3/uL 0-0.06 LYMPH x10^3 (test code = 731-0) 2.50 10*3/uL 1.32-3.29 MONO x10^3 (test code = 742-7) 1.25 10*3/uL 0.33-0.92 H EOS x10^3 (test code = 711-2) 0.05 10*3/uL 0.03-0.39 BASO x10^3 (test code = 704-7) 0.03 10*3/uL 0.01-0.07 Lab Interpretation (test code = 13153-5) Abnormal [facility] URINALYSIS W/O SPECIFIC [id number] 15:58:00* Test Item Value Reference Range Interpretation Comme nts POCT PH U (test code = 3254) n/a 5-8 POCT U LEUK EST (test code = 3263) n/a Negative - Negative POCT U NIT (test code = 3262) n/a Negative - Negati ve POCT U PROT (test code = 3259) negative Negative - Negat nadja POCT U GLU (test code = 3256) Negative - Negati ve POCT U KETONE (test code = 3258) n/a Negative - Neg ative POCT U BLD (test code = 3257) n/a Negative - Negati ve [facility] URINALYSIS W/O SPECIFIC [id number] 18:13:00* Test Item Value Reference Range Interpretation Comme nts POCT PH U (test code = 3254) n/a 5-8 POCT U LEUK EST (test code = 3263) n/a Negative - N egative POCT U NIT (test code = 3262) n/a Negative - Negati ve POCT U PROT (test code = 3259) Trace Negative - Negat nadja POCT U GLU (test code = 3256) Negative - Negati ve POCT U KETONE (test code = 3258) n/a Negative - Neg ative POCT U BLD (test code = 3257) n/a Negative - Negati ve [facility] URINALYSIS W/O SPECIFIC [id number] 14:00:00* Test Item Value Reference Range Interpretation Comme nts POCT PH U (test code = 3254) n/a 5-8 POCT U LEUK EST (test code = 3263) n/a Negative - Negative POCT U NIT (test code = 3262) n/a Negative - Negati ve POCT U PROT (test code = 3259) negative Negative - Negat nadja POCT U GLU (test code = 3256) Negative - Negati ve POCT U KETONE (test code = 3258) n/a Negative - Neg ative POCT U BLD (test code = 3257) n/a Negative - Negati ve [facility] URINALYSIS W/O SPECIFIC [id number] 15:56:00* Test Item Value Reference Range Interpretation Comme nts POCT PH U (test code = 3254) n/a 5-8 POCT U LEUK EST (test code = 3263) n/a Negative - Negative POCT U NIT (test code = 3262) n/a Negative - Negati ve POCT U PROT (test code = 3259) negative Negative - Negat nadja POCT U GLU (test code = 3256) Negative - Negati ve POCT U KETONE (test code = 3258) n/a Negative - Neg ative POCT U BLD (test code = 3257) n/a Negative - Negati ve [facility] URINALYSIS W/O SPECIFIC [id number] 19:19:00* Test Item Value Reference Range Interpretation Comme nts POCT PH U (test code = 3254) n/a 5-8 POCT U LEUK EST (test code = 3263) n/a Negative - N egative POCT U NIT (test code = 3262) n/a Negative - Negati ve POCT U PROT (test code = 3259) Trace Negative - Negat nadja POCT U GLU (test code = 3256) Negative - Negati ve POCT U KETONE (test code = 3258) N/a Negative - Neg ative POCT U BLD (test code = 3257) n/a Negative - Negati ve [facility] URINALYSIS W/O SPECIFIC [id number] 18:31:00* Test Item Value Reference Range Interpretation Comme nts POCT PH U (test code = 3254) N/A 5-8 POCT U LEUK EST (test code = 3263) N/A Negative - Negative POCT U NIT (test code = 3262) N/A Negative - Negati ve POCT U PROT (test code = 3259) Negative Negative - Negat nadja POCT U GLU (test code = 3256) Negative Negative - Negati ve POCT U KETONE (test code = 3258) N/A Negative - Neg ative POCT U BLD (test code = 3257) N/A Negative - Negati ve [facility] URINALYSIS W/O SPECIFIC [id number] 20:41:00* Test Item Value Reference Range Interpretation Comme nts POCT PH U (test code = 3254) n/a 5-8 POCT U LEUK EST (test code = 3263) n/a Negative - N egative POCT U NIT (test code = 3262) n/a Negative - Negati ve POCT U PROT (test code = 3259) trace Negative - Negat nadja POCT U GLU (test code = 3256) Negative - Negati ve POCT U KETONE (test code = 3258) n/a Negative - Neg ative POCT U BLD (test code = 3257) n/a Negative - Negati ve [facility] URINALYSIS W/O SPECIFIC [id number] 18:15:00* Test Item Value Reference Range Interpretation Comme nts POCT PH U (test code = 3254) N/A 5-8 POCT U LEUK EST (test code = 3263) N/A Negative - Negative POCT U NIT (test code = 3262) N/A Negative - Negati ve POCT U PROT (test code = 3259) Negative Negative - Negat nadja POCT U GLU (test code = 3256) Negative Negative - Negati ve POCT U KETONE (test code = 3258) N/A Negative - Neg ative POCT U BLD (test code = 3257) N/A Negative - Negati ve [facility] URINALYSIS W/O SPECIFIC [id number] 19:44:00* Test Item Value Reference Range Interpretation Comme nts POCT PH U (test code = 3254) n/a 5-8 POCT U LEUK EST (test code = 3263) n/a Negative - Negative POCT U NIT (test code = 3262) n/a Negative - Negati ve POCT U PROT (test code = 3259) Negative Negative - Negat nadja POCT U GLU (test code = 3256) Negative Negative - Negati ve POCT U KETONE (test code = 3258) n/a Negative - Neg ative POCT U BLD (test code = 3257) n/a Negative - Negati ve [facility] [id number] 19:43:00* Test Item Value Reference Range Interpretation Comme nts POCT PREG (test code = 1605) Positive On board controls acceptable with C Line (test code = 3574) Yes POCT PREG LOT # (test code = 3575) POCT PREG TEST DATE ( test code = 3576) [facility] Test Item Value Reference Range Interpretation Comme nts MAGNESIUM (test code = 7514865989) 1.8 mg/dL 1.7-2.4 Lab Interpretation (test cod e = 21746-1) [facility] 10:38:19* Test Item Value Reference Range Interpretation Comme nts MAGNESIUM (test code = 9219223770) 1.8 mg/dL 1.7-2.4 Lab Interpretation (test cod e = 43226-6) Normal [facility] METABOLIC PANEL (NA, K, CL, CO2, GLUCOSE, BUN, CREATININE, CA)2021-01-14 10:38:18* Test Item Value Reference Range Interpretation Comme nts NA (test code = 7930850588) 139 mmol/L 135-145 K (test code = 7962444658) 4.2 mmol/L 3.5-5.0 CL (test code = 5723366506) 106 mmol/L 98-108 CO2 TOTAL (test code = 3551218672) 27 mmol/L 23-31 AGAP (test code = 1401479888) 2-16 BUN (test code = 5739488440) 8 mg/dL 7-23 GLUCOSE (test code = 1414025323) 103 mg/dL 70-110 CREATININE (test code = 2834317514) 0.61 mg/dL 0.50-1.04 CALCIUM (test code = 6187853897) 9.1 mg/dL 8.6-10.6 eGFR (test code = 8348059454) mL/min/1.73m2 ZAYRA (test code = ZAYRA) Association of Glomerular Filtration Rate (GFR) and Staging of Kidney Disease* + + +- +| GFR (mL/min/1.73 m2) ?| With Kidney Damage ?| ?Without Kidney Damage+ ------+ ----+ ------+| ?>90 ?| ?Stage one ?| ? Normal ?+ -+ + -+| ?60-89 ?| ?Stage two ?| ? Decreased GFR ? + + +- +| ?30-59 ?| ?Stage three ?| ? Stage three ? + + +- +| ?15-29 ?| ?Stage four ? | ? Stage four ?+ -+ + -+| ?<15 (or dialysis) ? ?| ?Stage five ? | ? Stage five ?+ -+ + -+ *Each stage assumes the associated GFR level has been in effect for at least three months. ?Stages 1 to 5, with or without kidney disease, indicate chronic kidney disease. Notes: Determination of stages one and two (with eGFR >59mL/min/1.73 m2) requires estimation of kidney damage for at least three months as defined by structural or functional abnormalities of the kidney, manifested by either:Pathological abnormalities or Markers of kidney damage (including abnormalities in the composition of the blood or urine or abnormalities in imaging tests). [facility] METABOLIC PANEL (NA, K, CL, CO2, GLUCOSE, BUN, CREATININE, CA)2021-01-14 10:38:18* Test Item Value Reference Range Interpretation Comme nts NA (test code = 9840979811) 139 mmol/L 135-145 K (test code = 5074521719) 4.2 mmol/L 3.5-5.0 CL (test code = 8049155261) 106 mmol/L 98-108 CO2 TOTAL (test code = 7698562601) 27 mmol/L 23-31 AGAP (test code = 3578637563) 2-16 BUN (test code = 7166343517) 8 mg/dL 7-23 GLUCOSE (test code = 5416492366) 103 mg/dL 70-110 CREATININE (test code = 6526013134) 0.61 mg/dL 0.50-1.04 CALCIUM (test code = 4166360558) 9.1 mg/dL 8.6-10.6 eGFR (test code = 5584202314) mL/min/1.73m2 ZAYRA (test code = ZAYRA) Association of Glomerular Filtration Rate (GFR) and Staging of Kidney Disease* + + +- +| GFR (mL/min/1.73 m2) ?| With Kidney Damage ?| ?Without Kidney Damage+ ------+ ----+ ------+| ?>90 ?| ?Stage one ?| ? Normal ?+ -+ + -+| ?60-89 ?| ?Stage two ?| ? Decreased GFR ? + + +- +| ?30-59 ?| ?Stage three ?| ? Stage three ? + + +- +| ?15-29 ?| ?Stage four ? | ? Stage four ?+ -+ + -+| ?<15 (or dialysis) ? ?| ?Stage five ? | ? Stage five ?+ -+ + -+ *Each stage assumes the associated GFR level has been in effect for at least three months. ?Stages 1 to 5, with or without kidney disease, indicate chronic kidney disease. Notes: Determination of stages one and two (with eGFR >59mL/min/1.73 m2) requires estimation of kidney damage for at least three months as defined by structural or functional abnormalities of the kidney, manifested by either:Pathological abnormalities or Markers of kidney damage (including abnormalities in the composition of the blood or urine or abnormalities in imaging tests). [facility] WITH [id number] 09:44:09* Test Item Value Reference Range Interpretation Comme nts WBC (test code = 6690-2) See_Comment [Automated Verastem] The system which generated this result transmitted reference range: 4.30 - 11.10 10*3/?L. The reference range was not used to interpret this result as normal/abnormal. RBC (test code = 789-8) See_Comment [Automated Verastem] The system which generated this result transmitted reference range: 3.93 - 5.25 10*6/?L. The reference range was not used to interpret this result as normal/abnormal. HGB (test code = 718-7) 12.7 g/dL 11.6-15.0 HCT (test code = 4544-3) 38.6 % 35.7-45.2 MCV (test code = 787-2) 88.5 fL 80.6-95.5 MCH (test code = 785-6) 29.1 pg 25.9-32.8 MCHC (test code = 786-4) 32.9 g/dL 31.6-35.1 RDW-SD (test code = 27755-9) 42.0 fL 39.0-49.9 RDW-CV (test code = 788-0) 12.8 % 12.0-15.5 PLT (test code = 777-3) See_Comment [Automated Verastem] The system which generated this result transmitted reference range: 166 - 358 10*3/?L. The reference range was not used to interpret this result as normal/abnormal. MPV (test code = 14921-3) 9.9 fL 9.5-12.9 NRBC/100 WBC (test code = 8345501554) See_Comment [Automated ZIIBRA ssage] The system which generated this result transmitted reference range: 0.0 - 10.0 /100 WBCs. The reference range was not used to interpret this result as normal/abnormal. NRBC x10^3 (test code = 3459986461) <0.01 See_Comment [Automated messa ge] The system which generated this result transmitted reference range: 10*3/?L. The reference range was not used to interpret this result as normal/abnormal. GRAN MAT (NEUT) % (test code = 770-8) 43.4 % IMM GRAN % (test code = 8861177004) 0.30 % LYMPH % (test code = 736-9) 45.6 % MONO % (test code = 5905-5) 8.4 % EOS % (test code = 713-8) 1.9 % BASO % (test code = 706-2) 0.4 % GRAN MAT x10^3(ANC) (test code = 7149574678) 3.14 10*3/uL 1.88-7.09 IMM GRAN x10^3 (test code = 9190588714) <0.03 0.00-0.06 LYMPH x10^3 (test code = 731-0) 3.30 10*3/uL 1.32-3.29 H MONO x10^3 (test code = 742-7) 0.61 10*3/uL 0.33-0.92 EOS x10^3 (test code = 711-2) 0.14 10*3/uL 0.03-0.39 BASO x10^3 (test code = 704-7) 0.03 10*3/uL 0.01-0.07 Lab Interpretation (test code = 08042-6) Abnormal [facility] WITH [id number] 09:44:09* Test Item Value Reference Range Interpretation Comme nts WBC (test code = 6690-2) See_Comment [Automated messa ge] The system which generated this result transmitted reference range: 4.30 - 11.10 10*3/?L. The reference range was not used to interpret this result as normal/abnormal. RBC (test code = 789-8) See_Comment [Automated [employer]sa ge] The system which generated this result transmitted reference range: 3.93 - 5.25 10*6/?L. The reference range was not used to interpret this result as normal/abnormal. HGB (test code = 718-7) 12.7 g/dL 11.6-15.0 HCT (test code = 4544-3) 38.6 % 35.7-45.2 MCV (test code = 787-2) 88.5 fL 80.6-95.5 MCH (test code = 785-6) 29.1 pg 25.9-32.8 MCHC (test code = 786-4) 32.9 g/dL 31.6-35.1 RDW-SD (test code = 13016-0) 42.0 fL 39.0-49.9 RDW-CV (test code = 788-0) 12.8 % 12.0-15.5 PLT (test code = 777-3) See_Comment [Automated [employer] ge] The system which generated this result transmitted reference range: 166 - 358 10*3/?L. The reference range was not used to interpret this result as normal/abnormal. MPV (test code = 09623-7) 9.9 fL 9.5-12.9 NRBC/100 WBC (test code = 1809906743) See_Comment [Automated ZIIBRA ssage] The system which generated this result transmitted reference range: 0.0 - 10.0 /100 WBCs. The reference range was not used to interpret this result as normal/abnormal. NRBC x10^3 (test code = 0963969403) <0.01 See_Comment [Automated [employer] Systemsa ge] The system which generated this result transmitted reference range: 10*3/?L. The reference range was not used to interpret this result as normal/abnormal. GRAN MAT (NEUT) % (test code = 770-8) 43.4 % IMM GRAN % (test code = 9955584575) 0.30 % LYMPH % (test code = 736-9) 45.6 % MONO % (test code = 5905-5) 8.4 % EOS % (test code = 713-8) 1.9 % BASO % (test code = 706-2) 0.4 % GRAN MAT x10^3(ANC) (test code = 1466721917) 3.14 10*3/uL 1.88-7.09 IMM GRAN x10^3 (test code = 6358549719) <0.03 0.00-0.06 LYMPH x10^3 (test code = 731-0) 3.30 10*3/uL 1.32-3.29 H MONO x10^3 (test code = 742-7) 0.61 10*3/uL 0.33-0.92 EOS x10^3 (test code = 711-2) 0.14 10*3/uL 0.03-0.39 BASO x10^3 (test code = 704-7) 0.03 10*3/uL 0.01-0.07 Lab Interpretation (test code = 14214-1) [facility] / [id number] 19:19:17* Test Item Value Reference Range Interpretation Comme [facility] (test code = 5964-2) See_Comment H [Automated messa ge] The system which generated this result transmitted reference range: 10.1 - 12.6 Seconds. The reference range was not used to interpret this result as normal/abnormal. INR (test code = 6301-6) Normal INR <1.1; Warfarin Therapeutic range 2.0 to 3.0 or 2.5 to 3.5, depending upon the indications. Lab Interpretation (test code = 22084-6) Abnormal [facility] / [id number] 19:19:17* Test Item Value Reference Range Interpretation Comme [facility] PROTIME PATIENT (test code = 5964-2) See_Comment H [Automated messa ge] The system which generated this result transmitted reference range: 10.1 - 12.6 Seconds. The reference range was not used to interpret this result as normal/abnormal. INR (test code = 6301-6) Normal INR <1.1; Warfarin Therapeutic range 2.0 to 3.0 or 2.5 to 3.5, depending upon the indications. Lab Interpretation (test code = 00124-2) Abnormal [facility] [id number] 10:00:07* Test Item Value Reference Range Interpretation Comme [facility] APTT Patient (test code = 3173-2) See_Comment [Automated [employer]ine[employer] System[employer]] The system which generated this result transmitted reference range: 26 - 36 Seconds. The reference range was not used to interpret this result as normal/abnormal. Lab Interpretation (test code = 29832-5) Normal [facility] [id number] 10:00:07* Test Item Value Reference Range Interpretation Comme nts APTT Patient (test code = 3173-2) See_Comment [Automated [employer]sa ge] The system which generated this result transmitted reference range: 26 - 36 Seconds. The reference range was not used to interpret this result as normal/abnormal. Lab Interpretation (test code = 86323-9) Normal [facility] / [id number] 10:00:06* Test Item Value Reference Range Interpretation Comme [facility] PROTIME PATIENT (test code = 5964-2) See_Comment H [Automated [employer]] The system which generated this result transmitted reference range: 10.1 - 12.6 Seconds. The reference range was not used to interpret this result as normal/abnormal. INR (test code = 6301-6) Normal INR <1.1; Warfarin Therapeutic range 2.0 to 3.0 or 2.5 to 3.5, depending upon the indications. Lab Interpretation (test code = 02695-1) Abnormal [facility] [id number] 07:01:50* Test Item Value Reference Range Interpretation Comments TROPONIN I (test code = 0989193002) 0.000 ng/mL See_Comment [Automated message] The system which generated this result transmitted reference range: <=0.034. The reference range was not used to interpret this result as normal/abnormal. ZAYRA (test code = ZAYRA) Reference (Normal) Range (defined by the 99th percentile reference limit): <= 0.034 ng/mL Note: Cardiac troponin begins to rise 3-4 hours after the onset of ischemia. Repeat in 4-6 hours if the sample was drawn within 3-4 hours of the onset of the symptom and found normal. Diagnosis of myocardial injury is made with acute changes in cTn concentrations with at least one serial sample above the 99th percentile upper reference limit (URL), taken together with the patient's clinical presentation. Biotin has been reported to cause a negative bias, interpret results relative to patient's use of biotin. Lab Interpretation (test code = 33766-2) Normal [facility] [id number] 07:01:50* Test Item Value Reference Range Interpretation Comments TROPONIN I (test code = 1527969714) 0.000 ng/mL See_Comment [Automated message] The system which generated this result transmitted reference range: <=0.034. The reference range was not used to interpret this result as normal/abnormal. ZAYRA (test code = ZAYRA) Reference (Normal) Range (defined by the 99th percentile reference limit): <= 0.034 ng/mL Note: Cardiac troponin begins to rise 3-4 hours after the onset of ischemia. Repeat in 4-6 hours if the sample was drawn within 3-4 hours of the onset of the symptom and found normal. Diagnosis of myocardial injury is made with acute changes in cTn concentrations with at least one serial sample above the 99th percentile upper reference limit (URL), taken together with the patient's clinical presentation. Biotin has been reported to cause a negative bias, interpret results relative to patient's use of biotin. Lab Interpretation (test code = 87574-5) Normal [facility]2021-09-24 06:23:04* Test Item Value Reference Range Interpretation Comme nts MAGNESIUM (test code = 9464110841) 1.8 mg/dL 1.7-2.4 Lab Interpretation (test cod e = 54358-1) Normal [facility]ball[facility] WITH [id number] 05:05:49* Test Item Value Reference Range Interpretation Comme nts WBC (test code = 6690-2) See_Comment H [Automated [employer] Systemsa ge] The system which generated this result transmitted reference range: 4.30 - 11.10 10*3/?L. The reference range was not used to interpret this result as normal/abnormal. RBC (test code = 789-8) See_Comment [Automated messa ge] The system which generated this result transmitted reference range: 3.93 - 5.25 10*6/?L. The reference range was not used to interpret this result as normal/abnormal. HGB (test code = 718-7) 13.6 g/dL 11.6-15.0 HCT (test code = 4544-3) 41.4 % 35.7-45.2 MCV (test code = 787-2) 88.1 fL 80.6-95.5 MCH (test code = 785-6) 28.9 pg 25.9-32.8 MCHC (test code = 786-4) 32.9 g/dL 31.6-35.1 RDW-SD (test code = 50932-2) 41.5 fL 39.0-49.9 RDW-CV (test code = 788-0) 12.8 % 12.0-15.5 PLT (test code = 777-3) See_Comment [Automated [employer] Systemsa ge] The system which generated this result transmitted reference range: 166 - 358 10*3/?L. The reference range was not used to interpret this result as normal/abnormal. MPV (test code = 28254-4) 9.9 fL 9.5-12.9 NRBC/100 WBC (test code = 4732098250) See_Comment [Automated ZIIBRA ssage] The system which generated this result transmitted reference range: 0.0 - 10.0 /100 WBCs. The reference range was not used to interpret this result as normal/abnormal. NRBC x10^3 (test code = 7966357146) <0.01 See_Comment [Automated [employer]ine[employer] Systemsa ge] The system which generated this result transmitted reference range: 10*3/?L. The reference range was not used to interpret this result as normal/abnormal. GRAN MAT (NEUT) % (test code = 770-8) 44.8 % IMM GRAN % (test code = 2860533921) 0.20 % LYMPH % (test code = 736-9) 45.7 % MONO % (test code = 5905-5) 7.8 % EOS % (test code = 713-8) 1.2 % BASO % (test code = 706-2) 0.3 % GRAN MAT x10^3(ANC) (test code = 4377724879) 5.32 10*3/uL 1.88-7.09 IMM GRAN x10^3 (test code = 5594413013) <0.03 0.00-0.06 LYMPH x10^3 (test code = 731-0) 5.41 10*3/uL 1.32-3.29 H MONO x10^3 (test code = 742-7) 0.93 10*3/uL 0.33-0.92 H EOS x10^3 (test code = 711-2) 0.14 10*3/uL 0.03-0.39 BASO x10^3 (test code = 704-7) 0.03 10*3/uL 0.01-0.07 Lab Interpretation (test code = 05713-2) Abnormal [facility] METABOLIC PANEL ([id number])2021-01-13 04:51:47* Test Item Value Reference Range Interpretation Comme nts NA (test code = 2253910081) 142 mmol/L 135-145 K (test code = 0019771831) 4.1 mmol/L 3.5-5.0 CL (test code = 2858489849) 103 mmol/L 98-108 CO2 TOTAL (test code = 5595691367) 28 mmol/L 23-31 AGAP (test code = 3866790690) 2-16 BUN (test code = 3631125062) 8 mg/dL 7-23 GLUCOSE (test code = 0394356635) 100 mg/dL 70-110 CREATININE (test code = 2494853122) 0.67 mg/dL 0.50-1.04 TOTAL BILI (test code = 0202653035) 0.9 mg/dL 0.1-1.1 CALCIUM (test code = 6583180336) 9.8 mg/dL 8.6-10.6 T PROTEIN (test code = 0290729788) 7.9 g/dL 6.3-8.2 ALBUMIN (test code = 3188016579) 4.6 g/dL 3.5-5.0 ALK PHOS (test code = 4935650234) 81 U/L 34-122 ALTv (test code = 1742-6) 14 U/L 5-35 AST(SGOT) (test code = 5058908925) 18 U/L 13-40 eGFR (test code = 4748089994) mL/min/1.73m2 ZAYRA (test code = ZAYRA) Association of Glomerular Filtration Rate (GFR) and Staging of Kidney Disease* + + +- +| GFR (mL/min/1.73 m2) ?| With Kidney Damage ?| ?Without Kidney Damage+ ------+ ----+ ------+| ?>90 ?| ?Stage one ?| ? Normal ?+ -+ + -+| ?60-89 ?| ?Stage two ?| ? Decreased GFR ? + + +- +| ?30-59 ?| ?Stage three ?| ? Stage three ? + + +- +| ?15-29 ?| ?Stage four ? | ? Stage four ?+ -+ + -+| ?<15 (or dialysis) ? ?| ?Stage five ? | ? Stage five ?+ -+ + -+ *Each stage assumes the associated GFR level has been in effect for at least three months. ?Stages 1 to 5, with or without kidney disease, indicate chronic kidney disease. Notes: Determination of stages one and two (with eGFR >59mL/min/1.73 m2) requires estimation of kidney damage for at least three months as defined by structural or functional abnormalities of the kidney, manifested by either:Pathological abnormalities or Markers of kidney damage (including abnormalities in the composition of the blood or urine or abnormalities in imaging tests). [facility]. METABOLIC PANEL ([id number])2021-01-13 04:51:47* Test Item Value Reference Range Interpretation Comme nts NA (test code = 8410190147) 142 mmol/L 135-145 K (test code = 9549583671) 4.1 mmol/L 3.5-5.0 CL (test code = 4556573021) 103 mmol/L 98-108 CO2 TOTAL (test code = 3800886148) 28 mmol/L 23-31 AGAP (test code = 6248965560) 2-16 BUN (test code = 1146266050) 8 mg/dL 7-23 GLUCOSE (test code = 0626057930) 100 mg/dL 70-110 CREATININE (test code = 4917450368) 0.67 mg/dL 0.50-1.04 TOTAL BILI (test code = 3899533673) 0.9 mg/dL 0.1-1.1 CALCIUM (test code = 3072841292) 9.8 mg/dL 8.6-10.6 T PROTEIN (test code = 5620266528) 7.9 g/dL 6.3-8.2 ALBUMIN (test code = 5068722806) 4.6 g/dL 3.5-5.0 ALK PHOS (test code = 1381993744) 81 U/L 34-122 ALTv (test code = 1742-6) 14 U/L 5-35 AST(SGOT) (test code = 2945180474) 18 U/L 13-40 eGFR (test code = 0360192438) mL/min/1.73m2 ZAYRA (test code = ZAYRA) Association of Glomerular Filtration Rate (GFR) and Staging of Kidney Disease* + + +- +| GFR (mL/min/1.73 m2) ?| With Kidney Damage ?| ?Without Kidney Damage+ ------+ ----+ ------+| ?>90 ?| ?Stage one ?| ? Normal ?+ -+ + -+| ?60-89 ?| ?Stage two ?| ? Decreased GFR ? + + +- +| ?30-59 ?| ?Stage three ?| ? Stage three ? + + +- +| ?15-29 ?| ?Stage four ? | ? Stage four ?+ -+ + -+| ?<15 (or dialysis) ? ?| ?Stage five ? | ? Stage five ?+ -+ + -+ *Each stage assumes the associated GFR level has been in effect for at least three months. ?Stages 1 to 5, with or without kidney disease, indicate chronic kidney disease. Notes: Determination of stages one and two (with eGFR >59mL/min/1.73 m2) requires estimation of kidney damage for at least three months as defined by structural or functional abnormalities of the kidney, manifested by either:Pathological abnormalities or Markers of kidney damage (including abnormalities in the composition of the blood or urine or abnormalities in imaging tests). [facility] [id number] 07:22:00* Test Item Value Reference Range Interpretation Comme nts POCT PREG (test code = 1605) Negative On board controls acceptable with C Line (test code = 3574) Present POCT PREG LOT # (test code = 3575) [id number] POCT PREG TEST DATE ( test code = 3576) 04/21/2022 Lab Interpretation (test cod e = 68498-7) [facility]"
[2023-04-27] MEDS ORDERED: KETOROLAC 30 MG/ML INJ ONE (00:12)
[2023-04-27] MEDS ORDERED: DIPHENHYDRAMINE 50 MG/ML VIAL ONE (00:12)
[2023-04-27] MEDS ORDERED: METOCLOPRAMIDE 10 MG/2mL INJ ONE (00:12)
[2023-04-27] MEDS ORDERED: MECLIZINE HCL 12.5 MG TAB ONE (00:12)
[2023-04-27] MEDS ORDERED: NA CHLORIDE 0.9% 1,000 ML ONE (00:12)
[2023-04-27] MEDS ORDERED: ACETAMINOPHEN 500 MG TAB ONE (00:12)
--- NOTE | 2023-04-27 01:34 | EDPHYS ---
Physician Documentation [facility] Name: Allie Hedrick Age: 28 yrs Sex: Female : 1995 Arrival Date: 04/26/2023 Time: 23:29 Bed 14 Private MD: ED Physician Iron Menard HPI: 04/27 00:44 This 28 yrs old Female presents to ER via Ambulatory with complaints of Headache, Stiff rt Neck, Dizziness. 00:44 Patient with prior history of BPPV presents to the ED with a left-sided headache, rt left-sided neck pain that started about 6 PM. Just reports mild dizziness consistent with prior episodes of vertigo. She denies other acute complaints at this time, symptoms are moderate in severity, aching nature, nonradiating, no other aggravating or alleviating factors. Patient states that she has had similar headaches in the past and this is consistent with prior episodes.. 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 Flu vaccine is up to date. - Social history:: Smoking status: Patient denies any tobacco usage or history of. Patient uses alcohol, street drugs. - Family history:: not pertinent. ROS: 00:44 Constitutional: Negative for fever, chills, and weight loss, Cardiovascular: Negative rt for chest pain, palpitations, and edema, Respiratory: Negative for shortness of breath, cough, wheezing, and pleuritic chest pain, Abdomen/GI: Negative for abdominal pain, nausea, vomiting, diarrhea, and constipation, MS/Extremity: Negative for injury and deformity, Skin: Negative for injury, rash, and discoloration, Psych: Negative for depression, anxiety, suicide ideation, homicidal ideation, and hallucinations, 00:44 Neck: Positive for pain with movement, pain at rest, 00:44 Neuro: Positive for dizziness, headache, Exam: 00:44 Constitutional: This is a well developed, well nourished patient who is awake, alert, rt and in no acute distress. Head/Face: Normocephalic, atraumatic. Chest/axilla: Normal chest wall appearance and motion. Nontender with no deformity. No lesions are appreciated. Cardiovascular: Regular rate and rhythm with a normal S1 and S2. No gallops, murmurs, or rubs. Normal PMI, no JVD. No pulse deficits. Respiratory: Lungs have equal breath sounds bilaterally, clear to auscultation and percussion. No rales, rhonchi or wheezes noted. No increased work of breathing, no retractions or nasal flaring. Abdomen/GI: Soft, non-tender, with normal bowel sounds. No distension or tympany. No guarding or rebound. No evidence of tenderness throughout. Skin: Warm, dry with normal turgor. Normal color with no rashes, no lesions, and no evidence of cellulitis. MS/ Extremity: Pulses equal, no cyanosis. Neurovascular intact. Full, normal range of motion. Psych: Awake, alert, with orientation to person, place and time. Behavior, mood, and affect are within normal limits. 00:44 Eyes: 1-2 beats of breath, nystagmus, head impulse and test of skew negative. 00:44 Neck: Supple, full range of motion, 00:44 Neuro: Speech normal, cranial nerves II through XII intact, strength and sensation intact in upper and lower extremities, no ataxia on [id number], Vital Signs: 04/26 23:45 BP 139 / 101; Pulse 82; Resp 16; Temp 98.2(IR); Pulse Ox 100% on R/A; Weight 95.25 kg [facility] (R); Height 5 ft. 5 in. (R); Pain 6/10; 04/27 01:45 BP 129 / 82; Pulse 77; Resp 16; Pulse Ox 99% on R/A; nw1 04/26 23:45 Body Mass Index 34.95 (95.25 kg, 165.1 cm) [facility] 04/26 23:45 Pain Scale: Adult [facility] Carlos Coma Score: 00:22 Eye Response: spontaneous(4). Motor Response: obeys commands(6). Verbal Response: nw1 oriented(5). Total: 15. MDM: 04/26 23:49 Patient medically screened. rt 04/27 01:35 Differential diagnosis: Migraine, tumor, meningitis, intracranial. Data reviewed: vital rt signs, nurses notes, radiologic studies. I considered the following discharge prescriptions or medication management in the emergency department Medications were administered in the Emergency Department. See MAR. Independent interpretation of the following test(s) in the Emergency Department CT Scan: My interpretation is No hemorrhage syndrome interpretation of CT scan images. Test considered but Not performed: Labs: Patient is forage motion of the neck, is afebrile, lower suspicion for meningitis, encephalitis, lumbar puncture is not indicated. Return precautions were discussed with the patient.. Counseling: I had a detailed discussion with the patient and/or guardian regarding the historical points, exam findings, and any diagnostic results supporting the discharge/admit diagnosis, radiology results, the need for outpatient follow up. 04/27 00:02 Order name: CT Head Brain wo Cont rt Administered Medications: 00:19 Drug: Ketorolac IVP 15 mg IVP once Route: IVP; Site: right antecubital; nw 00:19 Drug: NS 0.9% IV 1000 ml IV at 1 bolus Per protocol; 1000 mL bolus Route: IV; Rate: 1 nw1 bolus; Site: right antecubital; 00:19 Drug: Acetaminophen PO 1000 mg PO once Route: PO; nw 00:19 Drug: Meclizine PO 50 mg PO once Route: PO; nw 00:19 Drug: metoCLOPramide IVP 10 mg IVP once; over 1 to 2 minutes Route: IVP; Site: right nw1 antecubital; 00:20 Drug: diphenhydrAMINE IVP 25 mg IVP once Route: IVP; Site: right antecubital; nw1 Disposition Summary: 04/27/23 01:33 Discharge Ordered Notes: Location: Home rt Problem: new rt Symptoms: are resolved rt Condition: Stable rt Diagnosis - Headache rt Followup: rt - With: Private Physician - When: 2 - 3 days - Reason: Discharge Instructions: - Discharge Summary Sheet rt - General Headache Without Cause rt - Form - Excuse from Work, School, or Physical Activity nw1 Forms: - Medication Reconciliation Form rt - Thank You Letter rt - Antibiotic Education rt - Prescription Opioid Use rt - Patient Portal Instructions rt - Leadership Thank You Letter rt - Work release form nw1 Signatures: Dispatcher [employer] Iron Baker MD MD rt Dia Pena RN RN km8 Bianca Romeo RN RN nw1
--- NOTE | 2023-04-27 01:34 | ER ---
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 Coronavirus screen: Client denies travel out of the [place] in the last 14 days. Ebola Screen: No symptoms or risks identified at this time. Initial Sepsis Screen: Does the patient meet any 2 criteria? No. Patient's initial sepsis screen is negative. Does the patient have a suspected source of infection? No. Patient's initial sepsis screen is negative. Risk Assessment: Do you want to hurt yourself or someone else? Patient reports no desire to harm self or others. Onset of symptoms was April 26, 2023 at 18:00. 23:45 Method Of Arrival: Ambulatory km8 23:45 Acuity: DUKE 3 km8 Triage Assessment: 23:45 Headache History: The patient has had previous headaches and this one is similar to km8 previous episodes. General: Appears in no apparent distress. comfortable, Behavior is calm, cooperative, appropriate for age. Pain: Complains of pain in Head and left side of neck Pain currently is 6 out of 10 on a pain scale. Quality of pain is described as aching, Pain began suddenly, Also complains of no other associated symptoms. EENT: No signs and/or symptoms were reported regarding the EENT system. Neuro: Level of Consciousness is awake, alert, obeys commands, Oriented to person, place, time, situation, Reports dizziness, headache. Cardiovascular: Capillary refill < 3 seconds Patient's skin is warm and dry. Respiratory: Airway is patent Respiratory effort is even, unlabored, Respiratory pattern is regular, symmetrical. GI: No signs and/or symptoms were reported involving the gastrointestinal system. : No signs and/or symptoms were reported regarding the genitourinary system. Derm: Skin is intact, Skin is dry, Skin is pink, warm \T\ dry. normal, Skin temperature is warm. Musculoskeletal: Circulation, motion, and sensation intact. Range of motion: intact in all extremities. 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 Flu vaccine is up to date. - Social history:: Smoking status: Patient denies any tobacco usage or history of. Patient uses alcohol, street drugs. - Family history:: not pertinent. Screenin:22 [facility] ED Fall Risk Assessment (Adult) History of falling in the last 3 months, nw1 including since admission No falls in past 3 months (0 pts) Confusion or Disorientation No (0 pts) Intoxicated or Sedated No (0 pts) Impaired Gait No (0 pts) Mobility Assist Device Used No (0 pt) Altered Elimination No (0 pt) Score/Fall Risk Level 0 - 2 = Low Risk Oriented to surroundings, Maintained a safe environment, Educated pt \T\ family on fall prevention, incl call for assistance when getting out of bed, Assessed \T\ reinforced patient's understanding of fall precautions, Hourly rounding (assess needs \T\ fall precautionary measures) done. Abuse screen: Denies threats or abuse. Denies injuries from another. Nutritional screening: No deficits noted. Tuberculosis screening: No symptoms or risk factors identified. Assessment: 00:20 Pain: Complains of pain in left posterior aspect of neck and left lateral aspect of nw1 neck. Musculoskeletal: Reports pain in left posterior aspect of neck and left lateral aspect of neck. Vital Signs: 04/26 23:45 BP 139 / 101; Pulse 82; Resp 16; Temp 98.2(IR); Pulse Ox 100% on R/A; Weight 95.25 kg 8 (R); Height 5 ft. 5 in. (R); Pain 6/10; 04/27 01:45 BP 129 / 82; Pulse 77; Resp 16; Pulse Ox 99% on R/A; nw1 04/26 23:45 Body Mass Index 34.95 (95.25 kg, 165.1 cm) [facility] 04/26 23:45 Pain Scale: Adult [facility] [place] Coma Score: 00:22 Eye Response: spontaneous(4). Motor Response: obeys commands(6). Verbal Response: nw1 oriented(5). Total: 15. ED Course: 04/26 23:35 Patient arrived in ED. es 23:41 Iron Menard MD is Attending Physician. rt 23:47 Triage completed. km8 23:50 Arm band placed on right wrist. km8 04/27 00:08 Bianca Romeo, RN is Primary Nurse. nw1 00:14 Inserted saline lock: 20 gauge in right antecubital area, using aseptic technique. ls5 00:22 Patient has correct armband on for positive identification. Bed in low position. Call nw1 light in reach. Side rails up X2. Provided Education on: POC. Noise minimized. Lights dimmed. 00:22 No provider procedures requiring assistance completed. nw1 01:01 CT Head Brain wo Cont In Process Unspecified. EDMS 01:45 IV discontinued, intact, bleeding controlled, No redness/swelling at site. Pressure nw1 dressing applied. Administered Medications: 00:19 Drug: Ketorolac IVP 15 mg IVP once Route: IVP; Site: right antecubital; nw1 00:19 Drug: NS 0.9% IV 1000 ml IV at 1 bolus Per protocol; 1000 mL bolus Route: IV; Rate: 1 nw1 bolus; Site: right antecubital; 00:19 Drug: Acetaminophen PO 1000 mg PO once Route: PO; nw1 00:19 Drug: Meclizine PO 50 mg PO once Route: PO; nw1 00:19 Drug: metoCLOPramide IVP 10 mg IVP once; over 1 to 2 minutes Route: IVP; Site: right nw1 antecubital; 00:20 Drug: diphenhydrAMINE IVP 25 mg IVP once Route: IVP; Site: right antecubital; nw1 Medication: 00:22 VIS not applicable for this client. nw1 Outcome: 01:33 Discharge ordered by . rt 01:45 Discharged to home ambulatory, with significant other, nw1 01:45 Condition: stable 01:45 Discharge instructions given to patient, Instructed on discharge instructions, follow up and referral plans. Demonstrated understanding of instructions, follow-up care, 01:46 Patient left the ED. nw1 Signatures: Dispatcher [employer] Nicol Kim Ryan, MD MD rt Jose Antonio Bajwa ls5 Dia Pena RN RN 8 Bianca Romeo, SHANNAN RN nw1
[2023-04-27 06:33] VITALS: BP 129/82; TEMP 98.2; O2SAT 99
--- NOTE | 2023-04-27 20:07 | RAD REPORT ---
EXAM DESCRIPTION: Head Brain Wo Cont 04/27/2023 1:08 AM RN ACUTE CARE CLINICAL HISTORY 28 years, Female, HEADACHE COMPARISON: None FINDINGS: Multiple transaxial tomograms of the brain were obtained from the base of the skull to the vertex without contrast. An individualized dose optimization technique, Automated Exposure Control, was utilized for the perfo rmed procedure. Brain parenchyma as well as the garza and white matter differentiation demonstrate to be unremarkable. There is no evidence for acute intraparenchymal hemorrhage. There is no midline shift and/or mass ef fect. No focal areas of hypodensities. Lateral ventricles and cisterns displace normal appearance. No intra or extra axial fluid collections were seen. The calvarium demonstrate to be intact with no evidence for acute bony injuries. The visualized portions of the paranasal sinuses and orbits demons trate to be clear. IMPRESSION: No evidence for acute intraparenchymal hemorrhage. Unremarkable CT scan of the head without contrast. Electronically signed by: Willem Lara MD 04/27/2023 01:14 AM RN ACUTE CARE Due to temporary technical issues with the PACS/Fluency reporting system, reports are being signed by the in house radiologists without review as a courtesy to insure prompt reporting. The interpreting radiologist is fully responsible for the content of the report.
== END 2023-04-27 01:46 | disposition home or self-care (01) ==
LOC: ER 23:29
DX: R51.9 Headache, unspecified (principal); M54.2 Cervicalgia; Z28.310 Unvaccinated for COVID-19
CPT/HCPCS: 70450; 96374; 96375; 99284

== ENCOUNTER → 2023-05-03 | Emergency (ER) | payer SELFPAY ==
[~2023-05-03] MED LIST: LORAZEPAM 1 MG TABLET ONE; METOPROLOL XL 50 MG TAB PO ONE; NA CHLORIDE 0.9% 1,000 ML ONE
--- OUTSIDE RECORDS SUMMARY | 2023-05-03 23:48 | XMS REPORT | Continuity of Care Document ---
Author Name Unknown Address [address] [facility]. [address] [place] [address] [facility] thconnect Address [address] [facility] [address] [place] [address] Care Team Providers Care Radiologic Tech Name Role Phone [facility] Primary Care Physician DR SAMMY Albright Attending Clinician Unavailable [id number] Attending Clinician Unavailable [id number] Attending Clinician Unavailable Alverto Olivares MD Attending Clinician [phone] ALVERTO OLIVARES Attending Clinician Unavailable Annelise Brown MA Attending Clinician UnavailCOSME Borrego Attending Clinician Unavailable [facility] Attending Clinician Bull tay [id number] Attending Clinician Unavailable N Attending Clinician Unavailable GLORIA JONES Attending Clinician UnavailGLORIA Magaña Attending Clinician UnavailCosme Borrego PA-C Attending Clinician [phone] Anna Morales Attending Clinician [phone] Lisa Garcia PhD Attending Clinician + [phone] LISA GARCIA Attending Clinician Unavailab le 1, [employer] Attending Clinician Noemi vailable Doctor Unassigned, [place] Attending Clinician U navailable ELLIOT GOULD Attending Clinician Unavailable Magalys Lacey MD Attending Clinician [phone] MAGALYS LACEY Attending Clinician Unavailable TRACY WHEELER Attending Clinician Unavailable Tracy Wheeler MD Attending Clinician [phone] Elliot Gould MD Attending Clinician [phone] KIRAN SCALES Attending Clinician Unavailable Kiran Scales MD Attending Clinician [phone] SHARI DIAMOND Attending Clinician Unavailable SONIA MAYBERRY Attending Clinician Unavailable Sonia Mayberry MD Attending Clinician [phone] [place] [address] Room Attending Clinician UnavailMorgan Otto MD Attending Clinician [phone] MORGAN GRANDE Attending Clinician Unavailable MORGAN GRANDE Attending Clinician Unavailable Colin Singh Attending Clinician + [phone] Nataliya Clifton Attending Clinician [phone] NOEL COOLEY Attending Clinician Unavailable Noel Cooley MD Attending Clinician [phone] Pob, [facility] Main Attending Clinician UnavailShari Johnson PA-C Attending Clinician [phone] Nurse, [facility] Attending Clinician Un available Kurtis CAMPBELL, Lisset Attending Clinician Unavail able Ran Arriaza MD Attending Clinician + [phone] RAN ARRIAZA Attending Clinician Unavailable RAN ARRIAZA Attending Clinician Unavailable 1, [facility] Room Attending Clinician Unavaila Ever Alvarez DO Attending Clinician [phone] Ultrasound, [facility] Attending Clinician Unavaila keo Bower MD, Gus Bangura Attending Clinician + [phone] GUS BOWER Attending Clinician Unavaila ble 2, [facility] Lab Attending Clinician Unavailable DERRICK CARBONE Attending Clinician Unavaila keo Gonzalez RN, Adele Dooley Attending Clinician Unavail able Alejandra ACUNA, Emanuel Attending Clinician [phone] Clinic, [facility] Neurology Continuity Attending Clini karol Unavailable ALPHONSO MEJIA Attending Clinician Unavailotto Miller LOAD TEST MECHANIC, Coleen Crisostomo Attending Clinician [phone] Melissa Romeo DO Attending Clinician [phone] ROBY Attending Clinician Unavailable Nkechi Carballo Attending Clinician [phone] Abdirashid Guajardo DO Attending Clinician [phone] Macario Arriaza DO Attending Clinician [phone] TAYLOR HILARIO Attending Clinician Bull Aranda, [facility] Test Attending Clinician Unavailable Abner Laguna MD Attending Clinician [phone] DR SAMMY JI Admitting Clinician Unavailable NOEL COOLEY Admitting Clinician Unavailable ELLIOT GOULD Admitting Clinician Unavailable DR [facility] Admitting Clinician Elliot Fernandez MD Admitting Clinician [phone] SONIA MAYBERRY Admitting Clinician Unavailable Sonia Mayberry MD Admitting Clinician [phone] Noel Cooley MD Admitting Clinician [phone] Emanuel Roberts MD Admitting Clinician [phone] ROBY Admitting Clinician Unavailable Payers Payer Name Policy Type Policy Number Effective Date Expirati on Date Source [facility] [id number] [facility] [id number] [facility] [id number] 2020 00:00:00 [facility] BREANN BEAVER [id number] 2019 00:00:00 [employer] HMO [id number] 2015 00:00:00 [employer] (POS) [id number] 2015 00:00:00 2020 00:00:00 Problems Condition Name Condition Details Condition Category Status Onset Date Resolution Date Last Treatment Date Treating Clinician Comments Source History of anxiety History of anxiety Disease Active 2021-04 00:00: 00 [facility] History of depression History of depression Disease Active 2021-04 00:00: 00 [facility] Liveborn infant, of knight , born in hospital by delivery Liveborn infant, of knight , born in hospital by delivery Disease Active 2021-04 00:00: 00 [facility] History of gestationa l hypertensi on History of gestationa l hypertensi on Disease Active 2021-04 00:00: 00 Overview: Formattin g of this note might be different from the original. Added automatic ally from request for surgery [id number] [facility] Headache Headache Disease Active 2021-04 0-14 00:00: 00 [facility] 33 weeks gestation of 33 weeks gestation of Disease Active 2021-04 0-14 00:00: 00 [facility] Placenta previa without hemorrhage , antepartum Placenta previa without hemorrhage , antepartum Disease Active 8-03 00:00: 00 [facility] High risk , antepartum High risk , antepartum Disease Active 4-12 00:00: 00 [facility] IIH (idiopathi c intracrani al hypertensi on) IIH (idiopathi c intracrani al hypertensi on) Disease Active 9-23 00:00: 00 [facility] Vaginal cyst Vaginal cyst Disease Active 2017-04 05-05 00:00: 00 [facility] Obesity (BMI 30-39.9) Obesity (BMI 30-39.9) Disease Active 2017-04 0 00:00: 00 [facility] 36 weeks gestation of 36 weeks gestation of Disease Active 12-25 00:00: 00 [facility] Cold sore Cold sore Disease Active 06-13 00:00: 00 [facility] Atrial fibrillati on, unspecifie d type Atrial fibrillati on, unspecifie d type Disease Active 06-13 00:00: 00 [facility] Nausea Nausea Disease Active 06-13 00:00: 00 [facility] Allergies, Adverse Reactions, Alerts Allergy Name Allergy Type Status Severity Reaction(s) Onset Date Inactive Date Treating Clinician Comments Source No Known Allergie s DA Active U 4- 00:00: 00 [facility] No Known Environm ental Allergie s MA Active UNKNOWN [facility] No Known Drug Allergie s MA Active UNKNOWN [facility] No Known Food Allergie s MA Active UNKNOWN [facility] NO KNOWN ALLERGIE S Drug Class Active [facility] Family History Family Member Diagnosis Comments Start Date Stop Date Sourc e Natural brother Asthma Univ [facility] Natural father [facility] Natural mother Depression Univ [facility] Family member Arthritis Univer [facility] Family member defects [facility] Family member Breast Cancer [facility] Family member [facility] member Colon Cancer [facility] Family [facility] Diabetes [facility] Family member Heart Univer [facility] Family member High cholesterol [facility] Family member Hypertension [facility] Family member Mental retardation [facility] Family member Neurological [facility] Family member Osteoporosis [facility] Family member [facility]varian Cancer [facility] Family member Psychiatry [facility] Family member [facility]terine [facility] Social History Social Habit Start Date Stop Date Quantity Comments Source ASSERTION 2021-06-30 00:00:00 [facility] History SDOH Alcohol Std Drinks Universit y [facility] History SDOH Alcohol Binge [facility] History SDOH Alcohol Comment [facility] o [facility] Gender identity [facility] Sexual orientation [facility] Alcohol intake 2023-01-21 00:00:00 2023-01-21 00:00:00 0 /d [facility] History of Social function 2023-01-21 00:00:00 2023-01-21 00:00:00 [facility] Exposure to SARS-CoV-2 (event) 2022-08-13 00:00:00 2022-08-23 13:15:00 Not sure [facility] Tobacco use and exposure 2021-11-22 00:00:00 2021-11-22 00:00:00 Smokeless tobacco non-user [facility] History SDOH Alcohol Frequency 2021-07-19 00:00:00 2021-07-19 00:00:00 1 [facility] Sex Assigned At 1995 00:00:00 1995 00:00:00 [facility] Smoking Status Start Date Stop Date Source Never smoked tobacco [facility] Medications Ordered Medication Name Filled Medication Name Start Date Stop Date Current Medication? Ordering Clinician Indication Dosage Frequency Signature (SIG) Comments Components Source memantine (NAMENDA) 5 mg tablet 2022-04 00:00: 00 Yes [id number] 10mg Take 2 tablets by mouth in the morning and 2 tablets in the evening. [facility] memantine (NAMENDA) 5 mg tablet 2022-04 00:00: 00 Yes [id number] 10mg Take 2 tablets by mouth in the morning and 2 tablets in the evening. [facility] memantine (NAMENDA) 5 mg tablet 2022-04 00:00: 00 Yes [id number] 10mg Take 2 tablets by mouth in the morning and 2 tablets in the evening. [facility] memantine (NAMENDA) 5 mg tablet 2022-04 00:00: 00 Yes [id number] 10mg Take 2 tablets by mouth in the morning and 2 tablets in the evening. [facility] amphetamine -dextroamph etamine 30 mg 24 hr capsule 2022-0 8 00:00: 00 Yes TAKE 1 CAPSULE BY MOUTH IN THE MORNING [facility] amphetamine -dextroamph etamine 30 mg 24 hr capsule 2022-0 8 00:00: 00 Yes TAKE 1 CAPSULE BY MOUTH IN THE MORNING [facility] amphetamine -dextroamph etamine 30 mg 24 hr capsule 0 8 00:00: 00 Yes TAKE 1 CAPSULE BY MOUTH IN THE MORNING [facility] amphetamine -dextroamph etamine 30 mg 24 hr capsule 0 8 00:00: 00 Yes TAKE 1 CAPSULE BY MOUTH IN THE MORNING [facility] meclizine 25 mg tablet 2022-0 4-11 00:00: 00 Yes [id number] 25mg Take 1 tablet by mouth every 6 (six) hours as needed for Dizziness. [facility] meclizine 25 mg tablet 2022-0 4-11 00:00: 00 Yes [id number] 25mg Take 1 tablet by mouth every 6 (six) hours as needed for Dizziness. [facility] meclizine 25 mg tablet 2022-0 4-11 00:00: 00 Yes [id number] 25mg Take 1 tablet by mouth every 6 (six) hours as needed for Dizziness. [facility] meclizine 25 mg tablet 2022-0 4-11 00:00: 00 Yes [id number] 25mg Take 1 tablet by mouth every 6 (six) hours as needed for Dizziness. [facility] meclizine 25 mg tablet 2022-0 4-11 00:00: 00 Yes [id number] 25mg Take 1 tablet by mouth every 6 (six) hours as needed for Dizziness. [facility] meclizine 25 mg tablet 2022-0 4-11 00:00: 00 Yes [id number] 25mg Take 1 tablet by mouth every 6 (six) hours as needed for Dizziness. [facility] meclizine 25 mg tablet 2022-0 4-11 00:00: 00 Yes [id number] 25mg Take 1 tablet by mouth every 6 (six) hours as needed for Dizziness. [facility] meclizine 25 mg tablet 0 07-31 00:00: 00 Yes [id number] 25mg Take 1 tablet by mouth every 6 (six) hours as needed for Dizziness. [facility] meclizine 25 mg tablet 0 07-31 00:00: 00 Yes [id number] 25mg Take 1 tablet by mouth every 6 (six) hours as needed for Dizziness. [facility] meclizine 25 mg tablet 07-31 00:00: 00 Yes [id number] 25mg Take 1 tablet by mouth every 6 (six) hours as needed for Dizziness. [facility] meclizine 25 mg tablet 07-31 00:00: 00 01-21 00:00 :00 No [id number] 25mg Take 1 tablet by mouth every 6 (six) hours as needed for Dizziness. [facility] meclizine 25 mg tablet 07-31 00:00: 00 01-21 00:00 :00 No [id number] 25mg Take 1 tablet by mouth every 6 (six) hours as needed for Dizziness. [facility] ketorolac (TORADOL) tablet 20 mg 05-22 02:30: 00 05-22 01:35 :00 No 20mg 20 mg, Oral, ONCE NOW, 1 dose, On Sat05/21/22 at 2030, [facility] predniSONE (DELTASONE) tablet 40 mg 05-22 02:00: 00 05-22 02:07 :00 No 40mg 40 mg, Oral, ONCE, 1 dose, On Sat05/21/22 at 2000, [facility] ketorolac 10 mg tablet 05-21 00:00: 00 Yes [id number] 10mg Take 1 tablet by mouth every 6 (six) hours as needed for Pain (scale 4-6) or Pain (scale 7-10). [facility] ketorolac 10 mg tablet 05-21 00:00: 00 Yes [id number] 10mg Take 1 tablet by mouth every 6 (six) hours as needed for Pain (scale 4-6) or Pain (scale 7-10). [facility] ketorolac 10 mg tablet 05-21 00:00: 00 Yes [id number] 10mg Take 1 tablet by mouth every 6 (six) hours as needed for Pain (scale 4-6) or Pain (scale 7-10). [facility] ketorolac 10 mg tablet 05-21 00:00: 00 Yes [id number] 10mg Take 1 tablet by mouth every 6 (six) hours as needed for Pain (scale 4-6) or Pain (scale 7-10). [facility] ketorolac 10 mg tablet 05-21 00:00: 00 Yes [id number] 10mg Take 1 tablet by mouth every 6 (six) hours as needed for Pain (scale 4-6) or Pain (scale 7-10). [facility] ketorolac 10 mg tablet 05-21 00:00: 00 Yes [id number] 10mg Take 1 tablet by mouth every 6 (six) hours as needed for Pain (scale 4-6) or Pain (scale 7-10). [facility] ketorolac 10 mg tablet 05-21 00:00: 00 Yes [id number] 10mg Take 1 tablet by mouth every 6 (six) hours as needed for Pain (scale 4-6) or Pain (scale 7-10). [facility] ketorolac 10 mg tablet 05-21 00:00: 00 Yes [id number] 10mg Take 1 tablet by mouth every 6 (six) hours as needed for Pain (scale 4-6) or Pain (scale 7-10). [facility] ketorolac 10 mg tablet 05-21 00:00: 00 Yes [id number] 10mg Take 1 tablet by mouth every 6 (six) hours as needed for Pain (scale 4-6) or Pain (scale 7-10). [facility] ketorolac 10 mg tablet 05-21 00:00: 00 Yes [id number] 10mg Take 1 tablet by mouth every 6 (six) hours as needed for Pain (scale 4-6) or Pain (scale 7-10). [facility] ketorolac 10 mg tablet 05-21 00:00: 00 Yes [id number] 10mg Take 1 tablet by mouth every 6 (six) hours as needed for Pain (scale 4-6) or Pain (scale 7-10). [facility] ketorolac 10 mg tablet 05-21 00:00: 00 01-21 00:00 :00 No [id number] 10mg Take 1 tablet by mouth every 6 (six) hours as needed for Pain (scale 4-6) or Pain (scale 7-10). [facility] ketorolac 10 mg tablet 05-21 00:00: 00 01-21 00:00 :00 No [id number] 10mg Take 1 tablet by mouth every 6 (six) hours as needed for Pain (scale 4-6) or Pain (scale 7-10). [facility] amoxicillin -clavulanat e 875-125 mg per tablet 05-21 00:00: 00 06-01 05:59 :00 No [id number] 1{tbl} Take 1 tablet by mouth every 12 (twelve) hours for 10 days. [facility] ibuprofen (IBU) tablet 600 mg 2021-04 13:30: 00 03-30 14:08 :00 No 600mg 600 mg, Oral, ONCE, 1 dose, On Sat03/30/22 at 0730, [facility] amoxicillin 500 mg tablet 2021-04 00:00: 00 04-10 05:59 :00 No [id number] 500mg Take 1 tablet by mouth in the morning and 1 tablet in the evening. Do all this for 10 days. [facility] norelgestro min-ethinyl estradiol 150-35 mcg/24 hr patch 2021-04 00:00: 00 Yes [id number] 1{patch } Apply 1 Patch to skin weekly. [facility] norelgestro min-ethinyl estradiol 150-35 mcg/24 hr patch 2021-04 2- 00:00: 00 Yes [id number] 1{patch } Apply 1 Patch to skin weekly. [facility] norelgestro min-ethinyl estradiol 150-35 mcg/24 hr patch 2021-04 2- 00:00: 00 Yes [id number] 1{patch } Apply 1 Patch to skin weekly. [facility] norelgestro min-ethinyl estradiol 150-35 mcg/24 hr patch 2021-04 2- 00:00: 00 Yes [id number] 1{patch } Apply 1 Patch to skin weekly. [facility] norelgestro min-ethinyl estradiol 150-35 mcg/24 hr patch 2021-04 2- 00:00: 00 Yes [id number] 1{patch } Apply 1 Patch to skin weekly. [facility] norelgestro min-ethinyl estradiol 150-35 mcg/24 hr patch 2021-04 2 00:00: 00 Yes [id number] 1{patch } Apply 1 Patch to skin weekly. [facility] norelgestro min-ethinyl estradiol 150-35 mcg/24 hr patch 2021-04 2 00:00: 00 Yes [id number] 1{patch } Apply 1 Patch to skin weekly. [facility] norelgestro min-ethinyl estradiol 150-35 mcg/24 hr patch 2021-04 2- 00:00: 00 Yes [id number] 1{patch } Apply 1 Patch to skin weekly. [facility] norelgestro min-ethinyl estradiol 150-35 mcg/24 hr patch 2021-04 2- 00:00: 00 Yes [id number] 1{patch } Apply 1 Patch to skin weekly. [facility] norelgestro min-ethinyl estradiol 150-35 mcg/24 hr patch 2021-04 2- 00:00: 00 Yes [id number] 1{patch } Apply 1 Patch to skin weekly. [facility] norelgestro min-ethinyl estradiol 150-35 mcg/24 hr patch 2021-04 2- 00:00: 00 Yes [id number] 1{patch } Apply 1 Patch to skin weekly. [facility] norelgestro min-ethinyl estradiol 150-35 mcg/24 hr patch 2021-04 2 00:00: 00 Yes [id number] 1{patch } Apply 1 Patch to skin weekly. [facility] norelgestro min-ethinyl estradiol 150-35 mcg/24 hr patch 2021-04 2 00:00: 00 Yes [id number] 1{patch } Apply 1 Patch to skin weekly. [facility] norelgestro min-ethinyl estradiol 150-35 mcg/24 hr patch 2021-04 2 00:00: 00 Yes [id number] 1{patch } Apply 1 Patch to skin weekly. [facility] norelgestro min-ethinyl estradiol 150-35 mcg/24 hr patch 2021-04 2 00:00: 00 Yes [id number] 1{patch } Apply 1 Patch to skin weekly. [facility] norelgestro min-ethinyl estradiol 150-35 mcg/24 hr patch 2021-04 2 00:00: 00 Yes [id number] 1{patch } Apply 1 Patch to skin weekly. [facility] norelgestro min-ethinyl estradiol 150-35 mcg/24 hr patch 2021-04 2 00:00: 00 01-21 00:00 :00 No [id number] 1{patch } Apply 1 Patch to skin weekly. [facility] norelgestro min-ethinyl estradiol 150-35 mcg/24 hr patch 2021-04 2 00:00: 00 01-21 00:00 :00 No [id number] 1{patch } Apply 1 Patch to skin weekly. [facility] ibuprofen (IBU) tablet 600 mg 2021-04 18:00: 00 Yes 600mg 600 mg, Oral, Q6H ABX, First dose on Sat02/28/22 at 1200, Until Discontinu ed, Routine [facility] ibuprofen (IBU) tablet 600 mg 2021-04 18:00: 00 Yes 600mg 600 mg, Oral, Q6H ABX, First dose on Sat02/28/22 at 1200, Until Discontinu ed, Routine [facility] ketorolac (TORADOL) injection 30 mg 2021-04 18:00: 00 02-28 17:59 :00 No 30mg 30 mg, Slow IV Push, Q6H ABX, 4 doses, First dose on Sat02/27/22 at 1200, Last dose on Sat02/28/22 at 0600, Routine [facility] ketorolac (TORADOL) injection 30 mg 2021-04 18:00: 00 02-28 12:04 :00 No 30mg 30 mg, Slow IV Push, Q6H ABX, 4 doses, First dose on Sat02/27/22 at 1200, Last dose on Sat02/28/22 at 0600, Routine Univers y [facility] gabapentin (NEURONTIN) capsule 300 mg 2021-04 14:00: 00 Yes 300mg 300 mg, Oral, TID, First dose on Sat02/27/22 at 0800, Until Discontinu ed, Routine Univers [facility] buPROPion (WELLBUTRIN ) tablet 100 mg 2021-04 14:00: 00 Yes 100mg 100 mg, Oral, BID, First dose on Sat02/27/22 at 0800, Until Discontinu ed, Routine Univers [facility] gabapentin (NEURONTIN) capsule 300 mg 2021-04 14:00: 00 Yes 300mg 300 mg, Oral, TID, First dose on Sat02/27/22 at 0800, Until Discontinu ed, [facility] ([facility]LLBUTRIN ) tablet 100 mg 2021-04 14:00: 00 Yes 100mg 100 mg, Oral, BID, First dose on Sat02/27/22 at 0800, Until Discontinu ed, Routine [facility] acetaminoph en (TYLENOL) tablet 650 mg 2021-04 12:00: 00 Yes 650mg 650 mg, Oral, Q6H ABX, First dose on Sat02/27/22 at 0600, Until Discontinu ed, [facility] acetaminoph en (TYLENOL) tablet 650 mg 2021-04 12:00: 00 Yes 650mg 650 mg, Oral, Q6H ABX, First dose on Sat02/27/22 at 0600, Until Discontinu ed, Routine Univers [facility] PNV no.95/nathan us fum/folic ac ( ORAL) 2021-04 08:01: 58 02-27 00:00 :00 No Take by mouth. [facility] PNV no.95/nathan us fum/folic ac ( ORAL) 2021-04 08:01: 58 02-27 00:00 :00 No Take by mouth. [facility] PNV no.95/nathan us fum/folic ac ( ORAL) 2021-04 08:01: 58 02-27 00:00 :00 No Take by mouth. [facility] PNV no.95/nathan us fum/folic ac ( ORAL) 2021-04 08:01: 58 02-27 00:00 :00 No Take by mouth. [facility] sodium chloride 0.9 % irrigation solution 2021-04 05:54: 00 Yes PRN, Starting on Sat02/26/22 at 2354, Until Discontinu ed, Intra-op [facility] sodium chloride 0.9 % irrigation solution 2021-04 05:54: 00 Yes PRN, Starting on Sat02/26/22 at 2354, Until Discontinu ed, Intra-op [facility] lactated ringers IV infusion 1,000 mL 2021-04 03:00: 00 02-27 07:13 :16 No 1000mL at 125 mL/hr, 1,000 mL, IV Infusion, ONCE, 1 dose, On Sat02/26/22 at 2100, Routine [facility] rho(D) immune globulin (RHOGAM) syringe 300 mcg 2021-04 02:57: 35 Yes 300ug 300 mcg, Intramuscu lar, ONCE, For 1 dose, Conditiona l, Routine [facility] rho(D) immune globulin (RHOGAM) syringe 300 mcg 2021-04 02:57: 35 Yes 300ug 300 mcg, Intramuscu lar, ONCE, For 1 dose, Conditiona l, Routine [facility] HYDROcodone -acetaminop hen (NORCO 5) 5-325 mg tablet 1 tablet 2021-04 02:57: 30 Yes 1{tbl} 1 tablet, Oral, Q6HPRN, Starting on Sat02/26/22 at 2056, Until Discontinu ed, Routine, Pain (scale 7-10), Alternate with Ibuprofen [facility] diphenhydrA MINE (BENADRYL) injection 25 mg 2021-04 02:57: 30 Yes 25mg 25 mg, Slow IV Push, Q6HPRN, Starting on Sat02/26/22 at 2056, Until Discontinu ed, Routine, Itching [facility] diphenhydrA MINE (BENADRYL) tablet 25 mg 2021-04 02:57: 30 Yes 25mg 25 mg, Oral, Q6HPRN, Starting on Sat02/26/22 at 2056, Until Discontinu ed, Routine, Sleep, [facility]ching [facility] [facility] ondansetron (ZOFRAN (PF)) injection 4 mg 2021-04 02:57: 30 Yes 4mg 4 mg, Slow IV Push, Q8HPRN, Starting on Sat02/26/22 at 2056, Until Discontinu ed, Routine, Nausea and Vomiting (N/V) [facility] bisacodyL (DULCOLAX) suppository 10 mg 2021-04 02:57: 30 Yes 10mg 10 mg, Rectal, QDAILYPRN, Starting on Sat02/26/22 at 2056, Until Discontinu ed, Routine, Constipati on [facility] simethicone (GAS RELIEF (SIMETHICON E)) chewable tablet 160 mg 2021-04 02:57: 30 Yes 160mg 160 mg, Oral, PC+HSPRN, Starting on Sat02/26/22 at 2056, Until Discontinu ed, Routine, Gas [facility] docusate (COLACE) capsule 200 mg 2021-04 02:57: 30 Yes 200mg 200 mg, Oral, QDAILYPRN, Starting on Sat02/26/22 at 2056, Until Discontinu ed, Routine, Constipati on [facility] magnesium hydroxide (MILK OF MAGNESIA) 400 mg/5 mL suspension 30 mL 2021-04 02:57: 30 Yes 30mL 30 mL, Oral, QDAILYPRN, Starting on Sat02/26/22 at 2056, Until Discontinu ed, Routine, Constipati on [facility] lactated ringers IV infusion 1,000 mL 2021-04 02:57: 30 Yes 1000mL at 125 mL/hr, 1,000 mL, IV Infusion, PRN, 1 dose, Starting on Sat02/26/22 at 2056, Until Discontinu ed, Routine [facility] HYDROcodone -acetaminop hen (NORCO 5) 5-325 mg tablet 1 tablet 2021-04 02:57: 30 Yes 1{tbl} 1 tablet, Oral, Q6HPRN, Starting on Sat02/26/22 at 2056, Until Discontinu ed, Routine, Pain (scale 7-10), Alternate with Ibuprofen [facility] diphenhydrA MINE (BENADRYL) injection 25 mg 2021-04 02:57: 30 Yes 25mg 25 mg, Slow IV Push, Q6HPRN, Starting on Sat02/26/22 at 2056, Until Discontinu ed, Routine, Itching [facility] diphenhydrA MINE (BENADRYL) tablet 25 mg 2021-04 02:57: 30 Yes 25mg 25 mg, Oral, Q6HPRN, Starting on Sat02/26/22 at 2056, Until Discontinu ed, Routine, Sleep, Itching [facility] ondansetron (ZOFRAN (PF)) injection 4 mg 2021-04 02:57: 30 Yes 4mg 4 mg, Slow IV Push, Q8HPRN, Starting on Sat02/26/22 at 2056, Until Discontinu ed, Routine, Nausea and Vomiting (N/V) [facility] bisacodyL (DULCOLAX) suppository 10 mg 2021-04 02:57: 30 Yes 10mg 10 mg, Rectal, QDAILYPRN, Starting on Sat02/26/22 at 2056, Until Discontinu ed, Routine, Constipati on [facility] simethicone (GAS RELIEF (SIMETHICON E)) chewable tablet 160 mg 2021-04 02:57: 30 Yes 160mg 160 mg, Oral, PC+HSPRN, Starting on Sat02/26/22 at 2056, Until Discontinu ed, Routine, Gas [facility] docusate (COLACE) capsule 200 mg 2021-04 02:57: 30 Yes 200mg 200 mg, Oral, QDAILYPRN, Starting on Sat02/26/22 at 2056, Until Discontinu ed, Routine, Constipati on [facility] magnesium hydroxide (MILK OF MAGNESIA) 400 mg/5 mL suspension 30 mL 2021-04 02:57: 30 Yes 30mL 30 mL, Oral, QDAILYPRN, Starting on Sat02/26/22 at 2056, Until Discontinu ed, Routine, Constipati on [facility] lactated ringers IV infusion 1,000 mL 2021-04 02:57: 30 Yes 1000mL at 125 mL/hr, 1,000 mL, IV Infusion, PRN, 1 dose, Starting on Sat02/26/22 at 2056, Until Discontinu ed, Routine [facility] mupirocin (BACTROBAN OINT) 2 % skin ointment 2021-04 02:30: 00 Yes Intra-op [facility] mupirocin (BACTROBAN OINT) 2 % skin ointment 2021-04 02:30: 00 Yes Intra-op [facility] betamethaso ne acet,sod phos (CELESTONE SOLUSPAN) 6 mg/mL injection 12 mg 2021-04 00:22: 00 02-27 00:23 :00 No 12mg 12 mg, Intramuscu lar, ONCE, 1 dose, On Sat02/26/22 at 1830, Routine [facility] acetaminoph en 325 mg tablet 2021-04 00:00: 00 Yes [id number] 650mg Take 2 tablets by mouth every 6 (six) hours as needed for Pain (scale 1-3) or Pain (scale 4-6). [facility] vitamin w/FA tablet 2021-04 00:00: 00 Yes [id number] 1{tbl} Take 1 tablet by mouth in the morning. [facility] docusate 100 mg capsule 2021-04 00:00: 00 Yes [id number] 200mg Take 2 capsules by mouth once daily as needed for Constipati on. [facility] ferrous sulfate 325 mg (65 mg iron) tablet 2021-04 00:00: 00 Yes [id number] 325mg Take 1 tablet by mouth in the morning and 1 tablet in the evening. [facility] ibuprofen 600 mg tablet 2021-04 00:00: 00 Yes [id number] 600mg Take 1 tablet by mouth every 6 (six) hours as needed (Pain). Take with food or milk. [facility] acetaminoph en 325 mg tablet 2021-04 00:00: 00 Yes [id number] 650mg Take 2 tablets by mouth every 6 (six) hours as needed for Pain (scale 1-3) or Pain (scale 4-6). [facility] vitamin w/FA tablet 2021-04 00:00: 00 Yes [id number] 1{tbl} Take 1 tablet by mouth in the morning. [facility] docusate 100 mg capsule 2021-04 00:00: 00 Yes [id number] 200mg Take 2 capsules by mouth once daily as needed for Constipati on. [facility] ferrous sulfate 325 mg (65 mg iron) tablet 2021-04 00:00: 00 Yes [id number] 325mg Take 1 tablet by mouth in the morning and 1 tablet in the evening. [facility] ibuprofen 600 mg tablet 2021-04 00:00: 00 Yes [id number] 600mg Take 1 tablet by mouth every 6 (six) hours as needed (Pain). Take with food or milk. [facility] acetaminoph en 325 mg tablet 2021-04 00:00: 00 Yes [id number] 650mg Take 2 tablets by mouth every 6 (six) hours as needed for Pain (scale 1-3) or Pain (scale 4-6). [facility] vitamin w/FA tablet 2021-04 00:00: 00 Yes [id number] 1{tbl} Take 1 tablet by mouth in the morning. [facility] docusate 100 mg capsule 2021-04 00:00: 00 Yes [id number] 200mg Take 2 capsules by mouth once daily as needed for Constipati on. [facility] ferrous sulfate 325 mg (65 mg iron) tablet 2021-04 00:00: 00 Yes [id number] 325mg Take 1 tablet by mouth in the morning and 1 tablet in the evening. [facility] ibuprofen 600 mg tablet 2021-04 00:00: 00 Yes [id number] 600mg Take 1 tablet by mouth every 6 (six) hours as needed (Pain). Take with food or milk. [facility] acetaminoph en 325 mg tablet 2021-04 00:00: 00 03-28 00:00 :00 No [id number] 650mg Take 2 tablets by mouth every 6 (six) hours as needed for Pain (scale 1-3) or Pain (scale 4-6). [facility] vitamin w/FA tablet 2021-04 00:00: 00 03-28 00:00 :00 No [id number] 1{tbl} Take 1 tablet by mouth in the morning. [facility] docusate 100 mg capsule 2021-04 00:00: 00 03-28 00:00 :00 No [id number] 200mg Take 2 capsules by mouth once daily as needed for Constipati on. [facility] ferrous sulfate 325 mg (65 mg iron) tablet 2021-04 00:00: 00 03-28 00:00 :00 No [id number] 325mg Take 1 tablet by mouth in the morning and 1 tablet in the evening. [facility] ibuprofen 600 mg tablet 2021-04 00:00: 00 03-28 00:00 :00 No [id number] 600mg Take 1 tablet by mouth every 6 (six) hours as needed (Pain). Take with food or milk. [facility] acetaminoph en 325 mg tablet 2021-04 00:00: 00 03-28 00:00 :00 No [id number] 650mg Take 2 tablets by mouth every 6 (six) hours as needed for Pain (scale 1-3) or Pain (scale 4-6). [facility] vitamin w/FA tablet 2021-04 00:00: 00 03-28 00:00 :00 No [id number] 1{tbl} Take 1 tablet by mouth in the morning. [facility] docusate 100 mg capsule 2021-04 00:00: 00 03-28 00:00 :00 No [id number] 200mg Take 2 capsules by mouth once daily as needed for Constipati on. [facility] ferrous sulfate 325 mg (65 mg iron) tablet 2021-04 00:00: 00 03-28 00:00 :00 No [id number] 325mg Take 1 tablet by mouth in the morning and 1 tablet in the evening. [facility] ibuprofen 600 mg tablet 2021-04 00:00: 00 03-28 00:00 :00 No [id number] 600mg Take 1 tablet by mouth every 6 (six) hours as needed (Pain). Take with food or milk. [facility] HYDROcodone -acetaminop hen 5-325 mg tablet 2021-04 00:00: 00 03-07 05:59 :00 No [id number] 1{tbl} Take 1 tablet by mouth every 6 (six) hours as needed for Pain (scale 7-10) (Alternate with Ibuprofen) for up to 7 days. Indication s: acute pain [facility] HYDROcodone -acetaminop hen 5-325 mg tablet 2021-04 00:00: 00 03-07 05:59 :00 No [id number] 1{tbl} Take 1 tablet by mouth every 6 (six) hours as needed for Pain (scale 7-10) (Alternate with Ibuprofen) for up to 7 days. Indication s: acute pain [facility] gabapentin 300 mg capsule 2021-04 00:00: 00 03-05 05:59 :00 No [id number] 300mg Take 1 capsule by mouth in the morning and 1 capsule at noon and 1 capsule in the evening. Do all this for 5 days. [facility] gabapentin 300 mg capsule 2021-04 00:00: 00 03-05 05:59 :00 No [id number] 300mg Take 1 capsule by mouth in the morning and 1 capsule at noon and 1 capsule in the evening. Do all this for 5 days. [facility] sodium citrate-cit jaylen acid (BICITRA) 500-334 mg/5 mL solution 30 mL 2021-04 21:55: 25 02-27 01:28 :00 No 30mL 30 mL, Oral, PRE-PROCED URE ONCE, 1 dose, Starting on Sat02/26/22 at 1555, Until Discontinu ed, Routine, Surgery/Pr ocedure [facility] lactated ringers IV infusion 500 mL 2021-04 21:55: 25 02-27 02:57 :33 No 500mL at 999 mL/hr, 500 mL, IV Infusion, PRN - SEE INSTRUCTIO NS, Starting on Sat02/26/22 at 1555, Until Sat02/26/22 at 205, Routine [facility] D5W-LR IV infusion 1,000 mL 2021-04 21:55: 25 02-27 02:57 :33 No 1000mL at 1-125 mL/hr, IV Infusion, TITRATE, Starting on Sat02/26/22 at 1555, Until Sat02/26/22 at 2056, Routine [facility] PNV no.95/nathan us fum/folic ac ( ORAL) 2021-04 19:48: 58 Yes Take by mouth. [facility] PNV no.95/nathan us fum/folic ac ( ORAL) 2021-04 15:52: 08 Yes Take by mouth. [facility] Nitrofurant oin&Nit. Macrocryst (MACROBID) 100 mg capsule 100 mg 2021-04 21:30: 00 02-25 20:43 :00 No 100mg 100 mg, Oral, ONCE, 1 dose, On 02/25/22 at 1530, Routine
Reason for Anti-Infec tive: Empiric Therapy for Suspected Infection< br>Empiric Therapy Site: Urine
D uration of therapy: 5 days [facility] PNV no.95/nathan us fum/folic ac ( ORAL) 2021-04 15:22: 42 Yes Take by mouth. [facility] PNV no.95/nathan us fum/folic ac ( ORAL) 2021-04 15:22: 42 Yes Take by mouth. [facility] Nitrofurant oin&Nit. Macrocryst 100 mg capsule 2021-04 00:00: 00 Yes [id number] 100mg Take 1 capsule by mouth in the morning and 1 capsule in the evening. [facility] Nitrofurant oin&Nit. Macrocryst 100 mg capsule 2021-04 00:00: 00 Yes [id number] 100mg Take 1 capsule by mouth in the morning and 1 capsule in the evening. [facility] Nitrofurant oin&Nit. Macrocryst 100 mg capsule 2021-04 00:00: 00 Yes [id number] 100mg Take 1 capsule by mouth in the morning and 1 capsule in the evening. [facility] Nitrofurant oin&Nit. Macrocryst 100 mg capsule 2021-04 00:00: 00 Yes [id number] 100mg Take 1 capsule by mouth in the morning and 1 capsule in the evening. [facility] Nitrofurant oin&Nit. Macrocryst 100 mg capsule 2021-04 00:00: 00 02-27 00:00 :00 No [id number] 100mg Take 1 capsule by mouth in the morning and 1 capsule in the evening. [facility] Nitrofurant oin&Nit. Macrocryst 100 mg capsule 2021-04 00:00: 00 02-27 00:00 :00 No [id number] 100mg Take 1 capsule by mouth in the morning and 1 capsule in the evening. [facility] SUMAtriptan (IMITREX) tablet 50 mg 2021-04 01:30: 00 02-09 01:07 :00 No 50mg 50 mg, Oral, ONCE, 1 dose, On [place]in 02/08/22 at 2030, Routine [facility] magnesium sulfate in water 2 gram/50 mL (4 %) infusion 2 g 2021-04 01:30: 00 02-09 02:07 :00 No 2g 2 g, IV Piggyback, Administer over 60 Minutes, ONCE, 1 dose, On [place]in 02/08/22 at 2030, Routine [facility] D5W-LR IV infusion 1,000 mL 2021-04 01:00: 00 Yes 1000mL at 150 mL/hr, IV Infusion, CONTINUOUS , Starting on Carolin 02/08/22 at 2015, Until Discontinu ed, Routine [facility] NaCl 0.9% (NS) IV infusion 1,000 mL 2021-04 22:45: 00 02-08 22:30 :00 No 1000mL at 999 mL/hr, IV Infusion, ONCE, 1 dose, On [place]in 02/08/22 at 1745, Routine
Then D5LR at 150 ml/hr
[facility] ondansetron (ZOFRAN (PF)) injection 4 mg 2021-04 22:36: 00 02-08 22:50 :00 No 4mg 4 mg, Slow IV Push, ONCE, On [place]in 02/08/22 at 1745, For 1 dose
Do ses of ondansetro n 16 mg and above need to be administer ed via IV piggyback. For Dose >=24mg ECG monitoring is advisable.
[facility] PNV no.95/nathan us fum/folic ac ( ORAL) 2021-04 0-20 22:25: 04 Yes Take by mouth. [facility] PNV no.95/nathan us fum/folic ac ( ORAL) 2021-04 0-20 22:25: 04 Yes Take by mouth. [facility] PNV no.95/nathan us fum/folic ac ( ORAL) 2021-04 0-20 22:25: 04 Yes Take by mouth. [facility] PNV no.95/nathan us fum/folic ac ( ORAL) 2021-04 0-20 22:25: 04 Yes Take by mouth. [facility] PNV no.95/nathan us fum/folic ac ( ORAL) 2021-04 0-20 22:25: 04 Yes Take by mouth. [facility] PNV no.95/nathan us fum/folic ac ( ORAL) 2021-04 0-20 22:25: 04 Yes Take by mouth. [facility] PNV no.95/nathan us fum/folic ac ( ORAL) 2021-04 0-20 22:25: 04 Yes Take by mouth. [facility] PNV no.95/nathan us fum/folic ac ( ORAL) 2021-04 0-20 22:25: 04 Yes Take by mouth. [facility] PNV no.95/nathan us fum/folic ac ( ORAL) 2021-04 0-20 22:25: 04 Yes Take by mouth. [facility] PNV no.95/nathan us fum/folic ac ( ORAL) 2021-04 0-19 12:35: 03 Yes Take by mouth. [facility] PNV no.95/nathan us fum/folic ac ( ORAL) 2021-04 0-19 12:35: 03 Yes Take by mouth. [facility] PNV no.95/nathan us fum/folic ac ( ORAL) 2021-04 0-19 12:35: 03 Yes Take by mouth. [facility] magnesium oxide 400 mg (241.3 mg magnesium) tablet 2021-04 0 00:00: 00 Yes [id number] 400mg Take 1 tablet by mouth in the morning. [facility] memantine 5 mg tablet 2021-04 0 00:00: 00 Yes [id number] 5mg Take 1 tablet by mouth in the morning. [facility] magnesium oxide 400 mg (241.3 mg magnesium) tablet 2021-04 0 00:00: 00 Yes [id number] 400mg Take 1 tablet by mouth in the morning. [facility] memantine 5 mg tablet 2021-04 00:00: 00 Yes [id number] 5mg Take 1 tablet by mouth in the morning. [facility] magnesium oxide 400 mg (241.3 mg magnesium) tablet 2021-04 0 00:00: 00 Yes [id number] 400mg Take 1 tablet by mouth in the morning. [facility] memantine 5 mg tablet 2021-04 0 00:00: 00 Yes [id number] 5mg Take 1 tablet by mouth in the morning. [facility] magnesium oxide 400 mg (241.3 mg magnesium) tablet 2021-04 0 00:00: 00 Yes [id number] 400mg Take 1 tablet by mouth in the morning. [facility] memantine 5 mg tablet 2021-04 0 00:00: 00 Yes [id number] 5mg Take 1 tablet by mouth in the morning. [facility] magnesium oxide 400 mg (241.3 mg magnesium) tablet 2021-04 0 00:00: 00 Yes [id number] 400mg Take 1 tablet by mouth in the morning. [facility] memantine 5 mg tablet 2021-04 0 00:00: 00 Yes [id number] 5mg Take 1 tablet by mouth in the morning. [facility] magnesium oxide 400 mg (241.3 mg magnesium) tablet 2021-04 0 00:00: 00 Yes [id number] 400mg Take 1 tablet by mouth in the morning. [facility] memantine 5 mg tablet 2021-04 0 00:00: 00 Yes [id number] 5mg Take 1 tablet by mouth in the morning. [facility] magnesium oxide 400 mg (241.3 mg magnesium) tablet 2021-04 0 00:00: 00 Yes [id number] 400mg Take 1 tablet by mouth in the morning. [facility] memantine 5 mg tablet 2021-04 0 00:00: 00 Yes [id number] 5mg Take 1 tablet by mouth in the morning. [facility] magnesium oxide 400 mg (241.3 mg magnesium) tablet 2021-04 0 00:00: 00 Yes [id number] 400mg Take 1 tablet by mouth in the morning. [facility] memantine 5 mg tablet 2021-04 0 00:00: 00 Yes [id number] 5mg Take 1 tablet by mouth in the morning. [facility] magnesium oxide 400 mg (241.3 mg magnesium) tablet 2021-04 0 00:00: 00 Yes [id number] 400mg Take 1 tablet by mouth in the morning. [facility] memantine 5 mg tablet 2021-04 0 00:00: 00 Yes [id number] 5mg Take 1 tablet by mouth in the morning. [facility] magnesium oxide 400 mg (241.3 mg magnesium) tablet 2021-04 0 00:00: 00 Yes [id number] 400mg Take 1 tablet by mouth in the morning. [facility] memantine 5 mg tablet 2021-04 0 00:00: 00 Yes [id number] 5mg Take 1 tablet by mouth in the morning. [facility] magnesium oxide 400 mg (241.3 mg magnesium) tablet 2021-04 0 00:00: 00 Yes [id number] 400mg Take 1 tablet by mouth in the morning. [facility] memantine 5 mg tablet 2021-04 0 00:00: 00 Yes [id number] 5mg Take 1 tablet by mouth in the morning. [facility] magnesium oxide 400 mg (241.3 mg magnesium) tablet 2021-04 0 00:00: 00 Yes [id number] 400mg Take 1 tablet by mouth in the morning. [facility] memantine 5 mg tablet 2021-04 0 00:00: 00 Yes [id number] 5mg Take 1 tablet by mouth in the morning. [facility] magnesium oxide 400 mg (241.3 mg magnesium) tablet 2021-04 0- 00:00: 00 Yes [id number] 400mg Take 1 tablet by mouth in the morning. [facility] memantine 5 mg tablet 2021-04 0- 00:00: 00 Yes [id number] 5mg Take 1 tablet by mouth in the morning. [facility] magnesium oxide 400 mg (241.3 mg magnesium) tablet 2021-04 0 00:00: 00 Yes [id number] 400mg Take 1 tablet by mouth in the morning. [facility] memantine 5 mg tablet 2021-04 0 00:00: 00 Yes [id number] 5mg Take 1 tablet by mouth in the morning. [facility] magnesium oxide 400 mg (241.3 mg magnesium) tablet 2021-04 0 00:00: 00 Yes [id number] 400mg Take 1 tablet by mouth in the morning. [facility] memantine 5 mg tablet 2021-04 0 00:00: 00 Yes [id number] 5mg Take 1 tablet by mouth in the morning. [facility] magnesium oxide 400 mg (241.3 mg magnesium) tablet 2021-04 0 00:00: 00 02-27 00:00 :00 No [id number] 400mg Take 1 tablet by mouth in the morning. [facility] memantine 5 mg tablet 2021-04 0 00:00: 00 02-27 00:00 :00 No [id number] 5mg Take 1 tablet by mouth in the morning. [facility] magnesium oxide 400 mg (241.3 mg magnesium) tablet 2021-04 0 00:00: 00 02-27 00:00 :00 No [id number] 400mg Take 1 tablet by mouth in the morning. [facility] memantine 5 mg tablet 2021-04 0- 00:00: 00 02-27 00:00 :00 No [id number] 5mg Take 1 tablet by mouth in the morning. [facility] D5W-LR IV infusion 1,000 mL 2021-04 00:15: 00 Yes 1000mL at 150 mL/hr, IV Infusion, CONTINUOUS , Starting on 02/03/22 at 1915, Until Discontinu ed, Routine [facility] magnesium sulfate in water 2 gram/50 mL (4 %) infusion 2 g 2021-04 00:15: 00 02-04 02:03 :00 No 2g 2 g, IV Piggyback, Administer over 60 Minutes, ONCE, 1 dose, On 02/03/22 at 1915, Routine [facility] NaCl 0.9% (NS) bolus infusion 1,000 mL 2021-04 00:00: 00 02-04 00:58 :00 No 1000mL at 999 mL/hr, 1,000 mL, IV Piggyback, ONCE, 1 dose, On 02/03/22 at 1900, STAT [facility] SUMAtriptan (IMITREX) injection 6 mg 2021-04 00:00: 00 02-03 23:44 :00 No 6mg 6 mg, Subcutaneo us, ONCE, 1 dose, On 02/03/22 at 1900, Routine [facility] metoclopram abisai HCl (REGLAN) injection 10 mg 2021-04 00:00: 00 02-03 23:55 :00 No 10mg 10 mg, Slow IV Push, ONCE, 1 dose, On 02/03/22 at 1900, Routine [facility] proCHLORper azine (COMPAZINE) tablet 10 mg 2021-04 22:51: 00 02-03 22:59 :00 No 10mg 10 mg, Oral, ONCE NOW, 1 dose, On 02/03/22 at 1800, Routine [facility] PNV no.95/nathan us fum/folic ac ( ORAL) 2021-04 21:51: 21 Yes Take by mouth. [facility] PNV no.95/nathan us fum/folic ac ( ORAL) 2021-04 0-14 14:13: 44 Yes Take by mouth. [facility] PNV no.95/nathan us fum/folic ac ( ORAL) 2021-04 14:13: 44 Yes Take by mouth. [facility] magnesium sulfate in water 2 gram/50 mL (4 %) infusion 2 g 2021-04 13:45: 00 02-02 14:37 :00 No 2g 2 g, IV Piggyback, Administer over 60 Minutes, ONCE, 1 dose, On Sat02/02/22 at 0845, Routine [facility] SUMAtriptan (IMITREX) tablet 50 mg 2021-04 13:45: 00 02-02 13:32 :00 No 50mg 50 mg, Oral, ONCE, 1 dose, On Sat02/02/22 at 0845, Routine [facility] buPROPion (WELLBUTRIN ) tablet 100 mg 2021-04 13:00: 00 Yes 100mg 100 mg, Oral, BID, First dose on Sat02/02/22 at 0800, Until Discontinu ed, Routine [facility] acetaminoph en (TYLENOL) tablet 650 mg 2021-04 09:27: 47 Yes 650mg 650 mg, Oral, Q6HPRN, Starting on Sat02/02/22 at 0427, Until Discontinu ed, Routine, headache [facility] alum-mag hydroxide-s imeth (MAALOX PLUS / MAG-AL PLUS) 200-200-20 mg/5 mL suspension 30 mL 2021-04 08:04: 11 Yes 30mL 30 mL, Oral, Q6HPRN, Starting on Sat02/02/22 at 0304, Until Discontinu ed, Routine, Indigestio n [facility] docusate (COLACE) capsule 200 mg 2021-04 08:04: 11 Yes 200mg 200 mg, Oral, QHSPRN, Starting on Sat02/02/22 at 0304, Until Discontinu ed, Routine, Constipati on [facility] magnesium hydroxide (MILK OF MAGNESIA) 400 mg/5 mL suspension 30 mL 2021-04 08:04: 11 Yes 30mL 30 mL, Oral, QDAILYPRN, Starting on Sat02/02/22 at 0304, Until Discontinu ed, Routine, Constipati on [facility] caffeine tablet 200 mg 2021-04 07:45: 00 02-02 07:00 :00 No 200mg 200 mg, Oral, ONCE NOW, 1 dose, On Sat02/02/22 at 0245, Routine [facility] proCHLORper azine (COMPAZINE) 10 mg in NaCl 0.9% (NS) piggyback 2021-04 07:30: 00 02-02 07:18 :00 No 10mg 10 mg, IV Piggyback, ONCE NOW, 1 dose, On Sat02/02/22 at 0230, 50 mL [facility] diphenhydrA MINE (BENADRYL) injection 25 mg 2021-04 05:15: 00 02-02 04:41 :00 No 25mg 25 mg, Intravenou s, ONCE, 1 dose, On Sat02/02/22 at 0015, Routine [facility] metoclopram abisai HCl (REGLAN) injection 10 mg 2021-04 05:15: 00 02-02 04:41 :00 No 10mg 10 mg, Slow IV Push, ONCE NOW, 1 dose, On Sat02/02/22 at 0015, Routine [facility] lactated ringers IV infusion 500 mL 2021-04 05:00: 00 02-02 04:38 :38 No 500mL at 999 mL/hr, 500 mL, Intravenou s, ONCE, 1 dose, On Sat02/02/22 at 0000, Routine [facility] SUMAtriptan 50 mg tablet 2021-04 00:00: 00 Yes [id number] 50mg Take 1 tablet by mouth in the morning. [facility] magnesium oxide 400 mg (241.3 mg magnesium) tablet 2021-04 00:00: 00 Yes [id number] 400mg Take 1 tablet by mouth in the morning. [facility] SUMAtriptan 50 mg tablet 2021-04 00:00: 00 Yes [id number] 50mg Take 1 tablet by mouth in the morning. [facility] magnesium oxide 400 mg (241.3 mg magnesium) tablet 2021-04 00:00: 00 Yes [id number] 400mg Take 1 tablet by mouth in the morning. [facility] SUMAtriptan 50 mg tablet 2021-04 00:00: 00 Yes [id number] 50mg Take 1 tablet by mouth in the morning. [facility] magnesium oxide 400 mg (241.3 mg magnesium) tablet 2021-04 00:00: 00 Yes [id number] 400mg Take 1 tablet by mouth in the morning. [facility] SUMAtriptan 50 mg tablet 2021-04 00:00: 00 Yes [id number] 50mg Take 1 tablet by mouth in the morning. [facility] SUMAtriptan 50 mg tablet 2021-04 00:00: 00 Yes [id number] 50mg Take 1 tablet by mouth in the morning. [facility] SUMAtriptan 50 mg tablet 2021-04 00:00: 00 Yes [id number] 50mg Take 1 tablet by mouth in the morning. [facility] SUMAtriptan 50 mg tablet 2021-04 00:00: 00 Yes [id number] 50mg Take 1 tablet by mouth in the morning. [facility] SUMAtriptan 50 mg tablet 2021-04 00:00: 00 Yes [id number] 50mg Take 1 tablet by mouth in the morning. [facility] SUMAtriptan 50 mg tablet 2021-04 00:00: 00 Yes [id number] 50mg Take 1 tablet by mouth in the morning. [facility] SUMAtriptan 50 mg tablet 2021-04 00:00: 00 Yes [id number] 50mg Take 1 tablet by mouth in the morning. [facility] SUMAtriptan 50 mg tablet 2021-04 00:00: 00 Yes [id number] 50mg Take 1 tablet by mouth in the morning. [facility] SUMAtriptan 50 mg tablet 2022-1 0-14 00:00: 00 Yes [id number] 50mg Take 1 tablet by mouth in the morning. [facility] SUM[facility] mg tablet 2021-04 0-14 00:00: 00 Yes [id number] 50mg Take 1 tablet by mouth in the morning. [facility] SUMAtriptan 50 mg tablet 2021-04 0-14 00:00: 00 Yes [id number] 50mg Take 1 tablet by mouth in the morning. [facility] SUMAtriptan 50 mg tablet 2021-04 0-14 00:00: 00 Yes [id number] 50mg Take 1 tablet by mouth in the morning. [facility] SUMAtriptan 50 mg tablet 2021-04 0-14 00:00: 00 Yes [id number] 50mg Take 1 tablet by mouth in the morning. [facility] SUMAtriptan 50 mg tablet 2021-04 014 00:00: 00 Yes [id number] 50mg Take 1 tablet by mouth in the morning. [facility] SUMAtriptan 50 mg tablet 2021-04 014 00:00: 00 Yes [id number] 50mg Take 1 tablet by mouth in the morning. [facility] SUMAtriptan 50 mg tablet 2021-04 014 00:00: 00 Yes [id number] 50mg Take 1 tablet by mouth in the morning. [facility] SUMAtriptan 50 mg tablet 2021-04 014 00:00: 00 Yes [id number] 50mg Take 1 tablet by mouth in the morning. [facility] SUMAtriptan 50 mg tablet 2021-04 0-14 00:00: 00 Yes [id number] 50mg Take 1 tablet by mouth in the morning. [facility] SUMAtriptan 50 mg tablet 2021-04 014 00:00: 00 Yes [id number] 50mg Take 1 tablet by mouth in the morning. [facility] SUMAtriptan 50 mg tablet 2021-04 014 00:00: 00 Yes [id number] 50mg Take 1 tablet by mouth in the morning. [facility] SUMAtriptan 50 mg tablet 2021-04 0-14 00:00: 00 03-28 00:00 :00 No [id number] 50mg Take 1 tablet by mouth in the morning. [facility] SUMAtriptan 50 mg tablet 2021-04 0-14 00:00: 00 03-28 00:00 :00 No [id number] 50mg Take 1 tablet by mouth in the morning. [facility] magnesium oxide 400 mg (241.3 mg magnesium) tablet 2021-04 014 00:00: 00 02-07 00:00 :00 No [id number] 400mg Take 1 tablet by mouth in the morning. [facility] magnesium oxide 400 mg (241.3 mg magnesium) tablet 2021-04 0 00:00: 00 02-07 00:00 :00 No [id number] 400mg Take 1 tablet by mouth in the morning. [facility] butalbital- acetaminoph en-caff 50-325-40 mg tablet 2021-04 00:00: 00 Yes [id number] 1{tbl} Take 1 tablet by mouth every 4 (four) hours as needed for Pain (scale 7-10). [facility] fluticasone propionate 50 mcg/actuati on nasal spray 2021-04 00:00: 00 Yes [id number] 2{spray } Use 2 Sprays in each nostril in the morning. [facility] cetirizine 10 mg tablet 2021-04 0 00:00: 00 Yes [id number] 10mg Take 1 tablet by mouth in the morning. [facility] butalbital- acetaminoph en-caff 50-325-40 mg tablet 2021-04 012 00:00: 00 Yes [id number] 1{tbl} Take 1 tablet by mouth every 4 (four) hours as needed for Pain (scale 7-10). [facility] fluticasone propionate 50 mcg/actuati on nasal spray 2021-04 0 00:00: 00 Yes [id number] 2{spray } Use 2 Sprays in each nostril in the morning. [facility] cetirizine 10 mg tablet 2021-04 0-12 00:00: 00 Yes [id number] 10mg Take 1 tablet by mouth in the morning. [facility] butalbital- acetaminoph en-caff 50-325-40 mg tablet 2021-04 0-12 00:00: 00 Yes [id number] 1{tbl} Take 1 tablet by mouth every 4 (four) hours as needed for Pain (scale 7-10). [facility] fluticasone propionate 50 mcg/actuati on nasal spray 2021-04 0-12 00:00: 00 Yes [id number] 2{spray } Use 2 Sprays in each nostril in the morning. [facility] cetirizine 10 mg tablet 2021-04 0 00:00: 00 Yes [id number] 10mg Take 1 tablet by mouth in the morning. [facility] butalbital- acetaminoph en-caff 50-325-40 mg tablet 2021-04 012 00:00: 00 Yes [id number] 1{tbl} Take 1 tablet by mouth every 4 (four) hours as needed for Pain (scale 7-10). [facility] fluticasone propionate 50 mcg/actuati on nasal spray 2021-04 0 00:00: 00 Yes [id number] 2{spray } Use 2 Sprays in each nostril in the morning. [facility] cetirizine 10 mg tablet 2021-04 012 00:00: 00 Yes [id number] 10mg Take 1 tablet by mouth in the morning. [facility] fluticasone propionate 50 mcg/actuati on nasal spray 2021-04 012 00:00: 00 Yes [id number] 2{spray } Use 2 Sprays in each nostril in the morning. [facility] cetirizine 10 mg tablet 2021-04 0-12 00:00: 00 Yes [id number] 10mg Take 1 tablet by mouth in the morning. [facility] fluticasone propionate 50 mcg/actuati on nasal spray 2021-04 0-12 00:00: 00 Yes [id number] 2{spray } Use 2 Sprays in each nostril in the morning. [facility] cetirizine 10 mg tablet 2021-04 0-12 00:00: 00 Yes [id number] 10mg Take 1 tablet by mouth in the morning. [facility] fluticasone propionate 50 mcg/actuati on nasal spray 2021-04 0-12 00:00: 00 Yes [id number] 2{spray } Use 2 Sprays in each nostril in the morning. [facility] cetirizine 10 mg tablet 2021-04 0-12 00:00: 00 Yes [id number] 10mg Take 1 tablet by mouth in the morning. [facility] fluticasone propionate 50 mcg/actuati on nasal spray 2021-04 012 00:00: 00 Yes [id number] 2{spray } Use 2 Sprays in each nostril in the morning. [facility] cetirizine 10 mg tablet 2021-04 012 00:00: 00 Yes [id number] 10mg Take 1 tablet by mouth in the morning. [facility] fluticasone propionate 50 mcg/actuati on nasal spray 2021-04 012 00:00: 00 Yes [id number] 2{spray } Use 2 Sprays in each nostril in the morning. [facility] cetirizine 10 mg tablet 2021-04 012 00:00: 00 Yes [id number] 10mg Take 1 tablet by mouth in the morning. [facility] fluticasone propionate 50 mcg/actuati on nasal spray 2021-04 012 00:00: 00 Yes [id number] 2{spray } Use 2 Sprays in each nostril in the morning. [facility] cetirizine 10 mg tablet 2021-04 0-12 00:00: 00 Yes [id number] 10mg Take 1 tablet by mouth in the morning. [facility] fluticasone propionate 50 mcg/actuati on nasal spray 2021-04 0-12 00:00: 00 Yes [id number] 2{spray } Use 2 Sprays in each nostril in the morning. [facility] cetirizine 10 mg tablet 2021-04 0-12 00:00: 00 Yes [id number] 10mg Take 1 tablet by mouth in the morning. [facility] fluticasone propionate 50 mcg/actuati on nasal spray 2021-04 0-12 00:00: 00 Yes [id number] 2{spray } Use 2 Sprays in each nostril in the morning. [facility] cetirizine 10 mg tablet 2021-04 012 00:00: 00 Yes [id number] 10mg Take 1 tablet by mouth in the morning. [facility] fluticasone propionate 50 mcg/actuati on nasal spray 2021-04 012 00:00: 00 Yes [id number] 2{spray } Use 2 Sprays in each nostril in the morning. [facility] cetirizine 10 mg tablet 2021-04 012 00:00: 00 Yes [id number] 10mg Take 1 tablet by mouth in the morning. [facility] fluticasone propionate 50 mcg/actuati on nasal spray 2021-04 0 00:00: 00 Yes [id number] 2{spray } Use 2 Sprays in each nostril in the morning. [facility] cetirizine 10 mg tablet 2021-04 012 00:00: 00 Yes [id number] 10mg Take 1 tablet by mouth in the morning. [facility] fluticasone propionate 50 mcg/actuati on nasal spray 2021-04 012 00:00: 00 Yes [id number] 2{spray } Use 2 Sprays in each nostril in the morning. [facility] cetirizine 10 mg tablet 2021-04 012 00:00: 00 Yes [id number] 10mg Take 1 tablet by mouth in the morning. [facility] fluticasone propionate 50 mcg/actuati on nasal spray 2021-04 012 00:00: 00 Yes [id number] 2{spray } Use 2 Sprays in each nostril in the morning. [facility] cetirizine 10 mg tablet 2021-04 0-12 00:00: 00 Yes [id number] 10mg Take 1 tablet by mouth in the morning. [facility] fluticasone propionate 50 mcg/actuati on nasal spray 2021-04 0-12 00:00: 00 Yes [id number] 2{spray } Use 2 Sprays in each nostril in the morning. [facility] cetirizine 10 mg tablet 2021-04 0-12 00:00: 00 Yes [id number] 10mg Take 1 tablet by mouth in the morning. [facility] fluticasone propionate 50 mcg/actuati on nasal spray 2021-04 0-12 00:00: 00 Yes [id number] 2{spray } Use 2 Sprays in each nostril in the morning. [facility] cetirizine 10 mg tablet 2021-04 012 00:00: 00 Yes [id number] 10mg Take 1 tablet by mouth in the morning. [facility] fluticasone propionate 50 mcg/actuati on nasal spray 2021-04 012 00:00: 00 Yes [id number] 2{spray } Use 2 Sprays in each nostril in the morning. [facility] cetirizine 10 mg tablet 2021-04 012 00:00: 00 Yes [id number] 10mg Take 1 tablet by mouth in the morning. [facility] fluticasone propionate 50 mcg/actuati on nasal spray 2021-04 012 00:00: 00 Yes [id number] 2{spray } Use 2 Sprays in each nostril in the morning. [facility] cetirizine 10 mg tablet 2021-04 0-12 00:00: 00 Yes [id number] 10mg Take 1 tablet by mouth in the morning. [facility] fluticasone propionate 50 mcg/actuati on nasal spray 2021-04 0-12 00:00: 00 Yes [id number] 2{spray } Use 2 Sprays in each nostril in the morning. [facility] cetirizine 10 mg tablet 2021-04 0-12 00:00: 00 Yes [id number] 10mg Take 1 tablet by mouth in the morning. [facility] fluticasone propionate 50 mcg/actuati on nasal spray 2021-04 012 00:00: 00 Yes [id number] 2{spray } Use 2 Sprays in each nostril in the morning. [facility] cetirizine 10 mg tablet 2021-04 0 00:00: 00 Yes [id number] 10mg Take 1 tablet by mouth in the morning. [facility] cetirizine 10 mg tablet 2021-04 0 00:00: 00 Yes [id number] 10mg Take 1 tablet by mouth in the morning. [facility] cetirizine 10 mg tablet 2021-04 0 00:00: 00 Yes [id number] 10mg Take 1 tablet by mouth in the morning. [facility] cetirizine 10 mg tablet 2021-04 00:00: 00 Yes [id number] 10mg Take 1 tablet by mouth in the morning. [facility] cetirizine 10 mg tablet 2021-04 0 00:00: 00 Yes [id number] 10mg Take 1 tablet by mouth in the morning. [facility] cetirizine 10 mg tablet 2021-04 0 00:00: 00 Yes [id number] 10mg Take 1 tablet by mouth in the morning. [facility] cetirizine 10 mg tablet 2021-04 0 00:00: 00 Yes [id number] 10mg Take 1 tablet by mouth in the morning. [facility] cetirizine 10 mg tablet 2021-04 0 00:00: 00 Yes [id number] 10mg Take 1 tablet by mouth in the morning. [facility] cetirizine 10 mg tablet 2021-04 0 00:00: 00 Yes [id number] 10mg Take 1 tablet by mouth in the morning. [facility] cetirizine 10 mg tablet 2021-04 0 00:00: 00 Yes [id number] 10mg Take 1 tablet by mouth in the morning. [facility] cetirizine 10 mg tablet 2021-04 0 00:00: 00 Yes [id number] 10mg Take 1 tablet by mouth in the morning. [facility] cetirizine 10 mg tablet 2021-04 0-12 00:00: 00 Yes [id number] 10mg Take 1 tablet by mouth in the morning. [facility] cetirizine 10 mg tablet 2021-04 0-12 00:00: 00 Yes [id number] 10mg Take 1 tablet by mouth in the morning. [facility] cetirizine 10 mg tablet 2021-04 0-12 00:00: 00 Yes [id number] 10mg Take 1 tablet by mouth in the morning. [facility] cetirizine 10 mg tablet 2021-04 0-12 00:00: 00 Yes [id number] 10mg Take 1 tablet by mouth in the morning. [facility] cetirizine 10 mg tablet 2021-04 0 00:00: 00 Yes [id number] 10mg Take 1 tablet by mouth in the morning. [facility] cetirizine 10 mg tablet 2021-04 012 00:00: 00 Yes [id number] 10mg Take 1 tablet by mouth in the morning. [facility] cetirizine 10 mg tablet 2021-04 012 00:00: 00 Yes [id number] 10mg Take 1 tablet by mouth in the morning. [facility] cetirizine 10 mg tablet 2021-04 012 00:00: 00 Yes [id number] 10mg Take 1 tablet by mouth in the morning. [facility] cetirizine 10 mg tablet 2021-04 0-12 00:00: 00 Yes [id number] 10mg Take 1 tablet by mouth in the morning. [facility] cetirizine 10 mg tablet 2021-04 0-12 00:00: 00 Yes [id number] 10mg Take 1 tablet by mouth in the morning. [facility] cetirizine 10 mg tablet 2021-04 0-12 00:00: 00 01-21 00:00 :00 No [id number] 10mg Take 1 tablet by mouth in the morning. [facility] cetirizine 10 mg tablet 2021-04 0-12 00:00: 00 01-21 00:00 :00 No [id number] 10mg Take 1 tablet by mouth in the morning. [facility] fluticasone propionate 50 mcg/actuati on nasal spray 2021-04 00:00: 00 02-27 00:00 :00 No [id number] 2{spray } Use 2 Sprays in each nostril in the morning. [facility] fluticasone propionate 50 mcg/actuati on nasal spray 2021-04 00:00: 00 02-27 00:00 :00 No [id number] 2{spray } Use 2 Sprays in each nostril in the morning. [facility] butalbital- acetaminoph en-caff (ESGIC) 50-325-40 mg tablet 2 tablet 2021-04 20:15: 00 01-30 20:18 :00 No 2{tbl} 2 tablet, Oral, ONCE NOW, 1 dose, On Sat01/30/22 at 1515, Routine [facility] PNV no.95/nathan us fum/folic ac ( ORAL) 2021-04 0 17:37: 34 Yes Take by mouth. [facility] PNV no.95/nathan us fum/folic ac ( ORAL) 2021-04 0 17:37: 34 Yes Take by mouth. [facility] PNV no.95/nathan us fum/folic ac ( ORAL) 2021-04 0 17:37: 34 Yes Take by mouth. [facility] PNV no.95/nathan us fum/folic ac ( ORAL) 2021-04 0 17:37: 34 Yes Take by mouth. [facility] PNV no.95/nathan us fum/folic ac ( ORAL) 2021-04 0 17:37: 34 Yes Take by mouth. [facility] PNV no.95/nathan us fum/folic ac ( ORAL) 2021-04 0 16:58: 09 Yes Take by mouth. [facility] magnesium oxide 400 mg (241.3 mg magnesium) tablet 2021-04 0 00:00: 00 Yes [id number] 400mg Take 1 tablet by mouth in the morning. [facility] magnesium oxide 400 mg (241.3 mg magnesium) tablet 2021-04 00:00: 00 Yes [id number] 400mg Take 1 tablet by mouth in the morning. [facility] magnesium oxide 400 mg (241.3 mg magnesium) tablet 2021-04 00:00: 00 Yes [id number] 400mg Take 1 tablet by mouth in the morning. [facility] magnesium oxide 400 mg (241.3 mg magnesium) tablet 2021-04 00:00: 00 Yes [id number] 400mg Take 1 tablet by mouth in the morning. [facility] magnesium oxide 400 mg (241.3 mg magnesium) tablet 2021-04 00:00: 00 Yes [id number] 400mg Take 1 tablet by mouth in the morning. [facility] magnesium oxide 400 mg (241.3 mg magnesium) tablet 2021-04 00:00: 00 Yes [id number] 400mg Take 1 tablet by mouth in the morning. [facility] PNV no.95/nathan us fum/folic ac ( ORAL) 2021-04 0 00:06: 48 Yes Take by mouth. [facility] PNV no.95/nathan us fum/folic ac ( ORAL) 2021-04 0 00:06: 48 Yes Take by mouth. [facility] PNV no.95/nathan us fum/folic ac ( ORAL) 2021-04 010 00:06: 48 Yes Take by mouth. [facility] PNV no.95/nathan us fum/folic ac ( ORAL) 2021-04 010 00:06: 48 Yes Take by mouth. [facility] PNV no.95/nathan us fum/folic ac ( ORAL) 7 14:20: 54 Yes Take by mouth. [facility] PNV no.95/nathan us fum/folic ac ( ORAL) 7- 14:20: 54 Yes Take by mouth. [facility] PNV no.95/nathan us fum/folic ac ( ORAL) 10-24 14:20: 54 Yes Take by mouth. [facility] PNV no.95/nathan us fum/folic ac ( ORAL) 10-24 14:20: 54 Yes Take by mouth. [facility] PNV no.95/nathan us fum/folic ac ( ORAL) 10-24 14:20: 54 Yes Take by mouth. [facility] PNV no.95/nathan us fum/folic ac ( ORAL) 10-24 14:20: 54 Yes Take by mouth. [facility] PNV no.95/nathan us fum/folic ac ( ORAL) 10-24 14:20: 54 Yes Take by mouth. [facility] PNV no.95/nathan us fum/folic ac ( ORAL) 10-24 14:20: 54 Yes Take by mouth. [facility] PNV no.95/nathan us fum/folic ac ( ORAL) 10-24 14:20: 54 Yes Take by mouth. [facility] PNV no.95/nathan us fum/folic ac ( ORAL) 10-24 14:20: 54 Yes Take by mouth. [facility] buPROPion 100 mg tablet 10-24 00:00: 00 Yes [id number] 100mg Take 1 tablet by mouth 2 (two) times daily. [facility] buPROPion 100 mg tablet 10-24 00:00: 00 Yes [id number] 100mg Take 1 tablet by mouth 2 (two) times daily. [facility] buPROPion 100 mg tablet 10-24 00:00: 00 Yes [id number] 100mg Take 1 tablet by mouth 2 (two) times daily. [facility] buPROPion 100 mg tablet 10-24 00:00: 00 Yes [id number] 100mg Take 1 tablet by mouth 2 (two) times daily. [facility] buPROPion 100 mg tablet 10-24 00:00: 00 Yes [id number] 100mg Take 1 tablet by mouth 2 (two) times daily. [facility] mg tablet 2021-0 10-24 00:00: 00 Yes [id number] 100mg Take 1 tablet by mouth 2 (two) times daily. [facility] bu[facility] mg tablet 2021-0 10-24 00:00: 00 Yes [id number] 100mg Take 1 tablet by mouth 2 (two) times daily. [facility] buPROPion 100 mg tablet 2021-0 10-24 00:00: 00 Yes [id number] 100mg Take 1 tablet by mouth 2 (two) times daily. [facility] buPROPion 100 mg tablet 2021-0 10-24 00:00: 00 Yes [id number] 100mg Take 1 tablet by mouth 2 (two) times daily. [facility] buPROPion 100 mg tablet 2021-0 10-24 00:00: 00 Yes [id number] 100mg Take 1 tablet by mouth 2 (two) times daily. [facility] buPROPion 100 mg tablet 2021-0 10-24 00:00: 00 Yes [id number] 100mg Take 1 tablet by mouth 2 (two) times daily. [facility] buPROPion 100 mg tablet 2021-0 10-24 00:00: 00 Yes [id number] 100mg Take 1 tablet by mouth 2 (two) times daily. [facility] buPROPion 100 mg tablet 2021-0 10-24 00:00: 00 Yes [id number] 100mg Take 1 tablet by mouth 2 (two) times daily. [facility] buPROPion 100 mg tablet 2021-0 10-24 00:00: 00 Yes [id number] 100mg Take 1 tablet by mouth 2 (two) times daily. [facility] buPROPion 100 mg tablet 2021-0 05 00:00: 00 Yes [id number] 100mg Take 1 tablet by mouth 2 (two) times daily. [facility] buPROPion 100 mg tablet 2021-0 -05 00:00: 00 Yes [id number] 100mg Take 1 tablet by mouth 2 (two) times daily. [facility] buPROPion 100 mg tablet 2021-0 05 00:00: 00 Yes [id number] 100mg Take 1 tablet by mouth 2 (two) times daily. [facility] buPROPion 100 mg tablet 2021-0 7-05 00:00: 00 Yes [id number] 100mg Take 1 tablet by mouth 2 (two) times daily. [facility] buPROPion 100 mg tablet 2021-0 -05 00:00: 00 Yes [id number] 100mg Take 1 tablet by mouth 2 (two) times daily. [facility] buPROPion 100 mg tablet 2021-0 05 00:00: 00 Yes [id number] 100mg Take 1 tablet by mouth 2 (two) times daily. [facility] buPROPion 100 mg tablet 2021-0 10-24 00:00: 00 Yes [id number] 100mg Take 1 tablet by mouth 2 (two) times daily. [facility] buPROPion 100 mg tablet 2021-0 05 00:00: 00 Yes [id number] 100mg Take 1 tablet by mouth 2 (two) times daily. [facility] buPROPion 100 mg tablet 2021-0 05 00:00: 00 Yes [id number] 100mg Take 1 tablet by mouth 2 (two) times daily. [facility] buPROPion 100 mg tablet 2021-0 10-24 00:00: 00 Yes [id number] 100mg Take 1 tablet by mouth 2 (two) times daily. [facility] buPROPion 100 mg tablet 2021-0 05 00:00: 00 Yes [id number] 100mg Take 1 tablet by mouth 2 (two) times daily. [facility] buPROPion 100 mg tablet 2-0 7-05 00:00: 00 Yes [id number] 100mg Take 1 tablet by mouth 2 (two) times daily. [facility] buPROPion 100 mg tablet 2-0 7-05 00:00: 00 Yes [id number] 100mg Take 1 tablet by mouth 2 (two) times daily. [facility] buPROPion 100 mg tablet 2021-0 7-05 00:00: 00 Yes [id number] 100mg Take 1 tablet by mouth 2 (two) times daily. [facility] mg tablet 2021-0 7-05 00:00: 00 Yes [id number] 100mg Take 1 tablet by mouth 2 (two) times daily. [facility] 2021-0 7-05 00:00: 00 Yes [id number] 100mg Take 1 tablet by mouth 2 (two) times daily. [facility] bu[facility] mg tablet 2021-0 -05 00:00: 00 Yes [id number] 100mg Take 1 tablet by mouth 2 (two) times daily. [facility] buPROPion 100 mg tablet 2021-0 05 00:00: 00 Yes [id number] 100mg Take 1 tablet by mouth 2 (two) times daily. [facility] buPROPion 100 mg tablet 2021-0 10-24 00:00: 00 Yes [id number] 100mg Take 1 tablet by mouth 2 (two) times daily. [facility] buPROPion 100 mg tablet 2021-0 05 00:00: 00 Yes [id number] 100mg Take 1 tablet by mouth 2 (two) times daily. [facility] buPROPion 100 mg tablet 2021-0 05 00:00: 00 Yes [id number] 100mg Take 1 tablet by mouth 2 (two) times daily. [facility] buPROPion 100 mg tablet 2021-0 05 00:00: 00 Yes [id number] 100mg Take 1 tablet by mouth 2 (two) times daily. [facility] buPROPion 100 mg tablet 2021-0 05 00:00: 00 Yes [id number] 100mg Take 1 tablet by mouth 2 (two) times daily. [facility] buPROPion 100 mg tablet 2021-0 7-05 00:00: 00 Yes [id number] 100mg Take 1 tablet by mouth 2 (two) times daily. [facility] buPROPion 100 mg tablet 2-0 7-05 00:00: 00 Yes [id number] 100mg Take 1 tablet by mouth 2 (two) times daily. [facility] buPROPion 100 mg tablet 2021-0 10-24 00:00: 00 Yes [id number] 100mg Take 1 tablet by mouth 2 (two) times daily. [facility] it[facility] buPROPion 100 mg tablet 2021-0 10-24 00:00: 00 Yes [id number] 100mg Take 1 tablet by mouth 2 (two) times daily. [facility] ity [facility] buPROPion 100 mg tablet 2021-0 10-24 00:00: 00 Yes [id number] 100mg Take 1 tablet by mouth 2 (two) times daily. [facility] 2021-0 10-24 00:00: 00 Yes [id number] 100mg Take 1 tablet by mouth 2 (two) times daily. [facility] 2021-0 10-24 00:00: 00 Yes [id number] 100mg Take 1 tablet by mouth 2 (two) times daily. [facility] mg tablet 2021-0 10-24 00:00: 00 Yes [id number] 100mg Take 1 tablet by mouth 2 (two) times daily. [facility] mg tablet 2021-0 10-24 00:00: 00 Yes [id number] 100mg Take 1 tablet by mouth 2 (two) times daily. [facility] buPROPion 100 mg tablet 2021-0 10-24 00:00: 00 Yes [id number] 100mg Take 1 tablet by mouth 2 (two) times daily. [facility] mg tablet 2021-0 10-24 00:00: 00 Yes [id number] 100mg Take 1 tablet by mouth 2 (two) times daily. [facility] mg tablet 2021-0 10-24 00:00: 00 Yes [id number] 100mg Take 1 tablet by mouth 2 (two) times daily. [facility] mg tablet 2021-0 05 00:00: 00 Yes [id number] 100mg Take 1 tablet by mouth 2 (two) times daily. [facility] bu[facility] mg tablet 2021-0 05 00:00: 00 Yes [id number] 100mg Take 1 tablet by mouth 2 (two) times daily. [facility] it[facility] buPROPion 100 mg tablet 2-0 7-05 00:00: 00 Yes [id number] 100mg Take 1 tablet by mouth 2 (two) times daily. [facility] it[facility] buPROPion 100 mg tablet 2-0 7-05 00:00: 00 Yes [id number] 100mg Take 1 tablet by mouth 2 (two) times daily. [facility] mg tablet 2-0 7-05 00:00: 00 Yes [id number] 100mg Take 1 tablet by mouth 2 (two) times daily. [facility] mg tablet 2-0 7-05 00:00: 00 Yes [id number] 100mg Take 1 tablet by mouth 2 (two) times daily. [facility] buPROPion 100 mg tablet 2021-0 7-05 00:00: 00 Yes [id number] 100mg Take 1 tablet by mouth 2 (two) times daily. [facility] buPROPion 100 mg tablet 2021-0 7-05 00:00: 00 Yes [id number] 100mg Take 1 tablet by mouth 2 (two) times daily. [facility] buPROPion 100 mg tablet 2021-0 7-05 00:00: 00 Yes [id number] 100mg Take 1 tablet by mouth 2 (two) times daily. [facility] buPROPion 100 mg tablet 2021-0 7-05 00:00: 00 Yes [id number] 100mg Take 1 tablet by mouth 2 (two) times daily. [facility] mg tablet 2-0 7-05 00:00: 00 Yes [id number] 100mg Take 1 tablet by mouth 2 (two) times daily. [facility] mg tablet 2-0 7-05 00:00: 00 01-21 00:00 :00 No [id number] 100mg Take 1 tablet by mouth 2 (two) times daily. [facility] it[facility] buPROPion 100 mg tablet 2-0 7-05 00:00: 00 01-21 00:00 :00 No [id number] 100mg Take 1 tablet by mouth 2 (two) times daily. [facility] metoclopram abisai HCl 10 mg tablet 2022-0 4-12 00:00: 00 Yes [id number] 10mg Take 1 tablet by mouth every 6 (six) hours as needed for Nausea and Vomiting (N/V). [facility] metoclopram abisai HCl 10 mg tablet 2022-0 4-12 00:00: 00 Yes [id number] 10mg Take 1 tablet by mouth every 6 (six) hours as needed for Nausea and Vomiting (N/V). [facility] metoclopram abisai HCl 10 mg tablet 2-0 4-12 00:00: 00 Yes [id number] 10mg Take 1 tablet by mouth every 6 (six) hours as needed for Nausea and Vomiting (N/V). [facility] metoclopram abisai HCl 10 mg tablet 2-0 4-12 00:00: 00 Yes [id number] 10mg Take 1 tablet by mouth every 6 (six) hours as needed for Nausea and Vomiting (N/V). [facility] metoclopram abisai HCl 10 mg tablet 2-0 4-12 00:00: 00 Yes [id number] 10mg Take 1 tablet by mouth every 6 (six) hours as needed for Nausea and Vomiting (N/V). [facility] metoclopram abisai HCl 10 mg tablet 2-0 4-12 00:00: 00 Yes [id number] 10mg Take 1 tablet by mouth every 6 (six) hours as needed for Nausea and Vomiting (N/V). [facility] metoclopram abisai HCl 10 mg tablet 2022-0 4-12 00:00: 00 Yes [id number] 10mg Take 1 tablet by mouth every 6 (six) hours as needed for Nausea and Vomiting (N/V). [facility] metoclopram abisai HCl 10 mg tablet 2-0 4-12 00:00: 00 Yes [id number] 10mg Take 1 tablet by mouth every 6 (six) hours as needed for Nausea and Vomiting (N/V). [facility] metoclopram abisai HCl 10 mg tablet 2022-0 4-12 00:00: 00 Yes [id number] 10mg Take 1 tablet by mouth every 6 (six) hours as needed for Nausea and Vomiting (N/V). [facility] metoclopram abisai HCl 10 mg tablet 2022-0 4-12 00:00: 00 Yes [id number] 10mg Take 1 tablet by mouth every 6 (six) hours as needed for Nausea and Vomiting (N/V). [facility] metoclopram abisai HCl 10 mg tablet 2022-0 4-12 00:00: 00 Yes [id number] 10mg Take 1 tablet by mouth every 6 (six) hours as needed for Nausea and Vomiting (N/V). [facility] metoclopram abisai HCl 10 mg tablet 2022-0 4-12 00:00: 00 Yes [id number] 10mg Take 1 tablet by mouth every 6 (six) hours as needed for Nausea and Vomiting (N/V). [facility] metoclopram abisai HCl 10 mg tablet 2-0 4-12 00:00: 00 Yes [id number] 10mg Take 1 tablet by mouth every 6 (six) hours as needed for Nausea and Vomiting (N/V). [facility] metoclopram abisai HCl 10 mg tablet 2-0 4-12 00:00: 00 Yes [id number] 10mg Take 1 tablet by mouth every 6 (six) hours as needed for Nausea and Vomiting (N/V). [facility] metoclopram abisai HCl 10 mg tablet 2022-0 4-12 00:00: 00 Yes [id number] 10mg Take 1 tablet by mouth every 6 (six) hours as needed for Nausea and Vomiting (N/V). [facility] metoclopram abisai HCl 10 mg tablet 2022-0 4-12 00:00: 00 Yes [id number] 10mg Take 1 tablet by mouth every 6 (six) hours as needed for Nausea and Vomiting (N/V). [facility] metoclopram abisai HCl 10 mg tablet 2022-0 4-12 00:00: 00 Yes [id number] 10mg Take 1 tablet by mouth every 6 (six) hours as needed for Nausea and Vomiting (N/V). [facility] metoclopram abisai HCl 10 mg tablet 2022-0 4-12 00:00: 00 Yes [id number] 10mg Take 1 tablet by mouth every 6 (six) hours as needed for Nausea and Vomiting (N/V). [facility] metoclopram abisai HCl 10 mg tablet 2-0 4-12 00:00: 00 Yes [id number] 10mg Take 1 tablet by mouth every 6 (six) hours as needed for Nausea and Vomiting (N/V). [facility] metoclopram abisai HCl 10 mg tablet 2022-0 4-12 00:00: 00 Yes [id number] 10mg Take 1 tablet by mouth every 6 (six) hours as needed for Nausea and Vomiting (N/V). [facility] metoclopram abisai HCl 10 mg tablet 2-0 4-12 00:00: 00 Yes [id number] 10mg Take 1 tablet by mouth every 6 (six) hours as needed for Nausea and Vomiting (N/V). [facility] metoclopram abisai HCl 10 mg tablet 2-0 4-12 00:00: 00 Yes [id number] 10mg Take 1 tablet by mouth every 6 (six) hours as needed for Nausea and Vomiting (N/V). [facility] metoclopram abisai HCl 10 mg tablet 2-0 4-12 00:00: 00 Yes [id number] 10mg Take 1 tablet by mouth every 6 (six) hours as needed for Nausea and Vomiting (N/V). [facility] metoclopram abisai HCl 10 mg tablet 2022-0 4-12 00:00: 00 Yes [id number] 10mg Take 1 tablet by mouth every 6 (six) hours as needed for Nausea and Vomiting (N/V). [facility] metoclopram abisai HCl 10 mg tablet 2022-0 4-12 00:00: 00 Yes [id number] 10mg Take 1 tablet by mouth every 6 (six) hours as needed for Nausea and Vomiting (N/V). [facility] metoclopram abisai HCl 10 mg tablet 2022-0 4-12 00:00: 00 Yes [id number] 10mg Take 1 tablet by mouth every 6 (six) hours as needed for Nausea and Vomiting (N/V). [facility] metoclopram abisai HCl 10 mg tablet 2022-0 4-12 00:00: 00 Yes [id number] 10mg Take 1 tablet by mouth every 6 (six) hours as needed for Nausea and Vomiting (N/V). [facility] metoclopram abisai HCl 10 mg tablet 2-0 4-12 00:00: 00 Yes [id number] 10mg Take 1 tablet by mouth every 6 (six) hours as needed for Nausea and Vomiting (N/V). [facility] metoclopram abisai HCl 10 mg tablet 2022-0 4-12 00:00: 00 Yes [id number] 10mg Take 1 tablet by mouth every 6 (six) hours as needed for Nausea and Vomiting (N/V). [facility] metoclopram abisai HCl 10 mg tablet 2-0 4-12 00:00: 00 Yes [id number] 10mg Take 1 tablet by mouth every 6 (six) hours as needed for Nausea and Vomiting (N/V). [facility] metoclopram abisai HCl 10 mg tablet 2-0 4-12 00:00: 00 Yes [id number] 10mg Take 1 tablet by mouth every 6 (six) hours as needed for Nausea and Vomiting (N/V). [facility] metoclopram abisai HCl 10 mg tablet 2-0 4-12 00:00: 00 Yes [id number] 10mg Take 1 tablet by mouth every 6 (six) hours as needed for Nausea and Vomiting (N/V). [facility] metoclopram abisai HCl 10 mg tablet 2022-0 4-12 00:00: 00 Yes [id number] 10mg Take 1 tablet by mouth every 6 (six) hours as needed for Nausea and Vomiting (N/V). [facility] metoclopram abisai HCl 10 mg tablet 2022-0 4-12 00:00: 00 Yes [id number] 10mg Take 1 tablet by mouth every 6 (six) hours as needed for Nausea and Vomiting (N/V). [facility] metoclopram abisai HCl 10 mg tablet 2022-0 4-12 00:00: 00 Yes [id number] 10mg Take 1 tablet by mouth every 6 (six) hours as needed for Nausea and Vomiting (N/V). [facility] metoclopram abisai HCl 10 mg tablet 2022-0 4-12 00:00: 00 Yes [id number] 10mg Take 1 tablet by mouth every 6 (six) hours as needed for Nausea and Vomiting (N/V). [facility] metoclopram abisai HCl 10 mg tablet 2022-0 4-12 00:00: 00 Yes [id number] 10mg Take 1 tablet by mouth every 6 (six) hours as needed for Nausea and Vomiting (N/V). [facility] metoclopram abisai HCl 10 mg tablet 2022-0 4-12 00:00: 00 Yes [id number] 10mg Take 1 tablet by mouth every 6 (six) hours as needed for Nausea and Vomiting (N/V). [facility] metoclopram abisai HCl 10 mg tablet 2-0 4-12 00:00: 00 Yes [id number] 10mg Take 1 tablet by mouth every 6 (six) hours as needed for Nausea and Vomiting (N/V). [facility] metoclopram abisai HCl 10 mg tablet 2022-0 4-12 00:00: 00 Yes [id number] 10mg Take 1 tablet by mouth every 6 (six) hours as needed for Nausea and Vomiting (N/V). [facility] metoclopram abisai HCl 10 mg tablet 2-0 4-12 00:00: 00 Yes [id number] 10mg Take 1 tablet by mouth every 6 (six) hours as needed for Nausea and Vomiting (N/V). [facility] metoclopram abisai HCl 10 mg tablet 2022-0 4-12 00:00: 00 Yes [id number] 10mg Take 1 tablet by mouth every 6 (six) hours as needed for Nausea and Vomiting (N/V). [facility] metoclopram abisai HCl 10 mg tablet 2022-0 4-12 00:00: 00 Yes [id number] 10mg Take 1 tablet by mouth every 6 (six) hours as needed for Nausea and Vomiting (N/V). [facility] metoclopram abisai HCl 10 mg tablet 2022-0 4-12 00:00: 00 Yes [id number] 10mg Take 1 tablet by mouth every 6 (six) hours as needed for Nausea and Vomiting (N/V). [facility] metoclopram abisai HCl 10 mg tablet 2-0 4-12 00:00: 00 Yes [id number] 10mg Take 1 tablet by mouth every 6 (six) hours as needed for Nausea and Vomiting (N/V). [facility] metoclopram abisai HCl 10 mg tablet 2021-0 4-12 00:00: 00 Yes [id number] 10mg Take 1 tablet by mouth every 6 (six) hours as needed for Nausea and Vomiting (N/V). [facility] metoclopram abisai HCl 10 mg tablet 2021-0 4-12 00:00: 00 Yes [id number] 10mg Take 1 tablet by mouth every 6 (six) hours as needed for Nausea and Vomiting (N/V). [facility] metoclopram abisai HCl 10 mg tablet 2021-0 4-12 00:00: 00 Yes [id number] 10mg Take 1 tablet by mouth every 6 (six) hours as needed for Nausea and Vomiting (N/V). [facility] metoclopram abisai HCl 10 mg tablet 2021-0 4-12 00:00: 00 02-27 00:00 :00 No [id number] 10mg Take 1 tablet by mouth every 6 (six) hours as needed for Nausea and Vomiting (N/V). [facility] metoclopram abisai HCl 10 mg tablet 2021-0 4-12 00:00: 00 02-27 00:00 :00 No [id number] 10mg Take 1 tablet by mouth every 6 (six) hours as needed for Nausea and Vomiting (N/V). [facility] metoclopram abisai HCl 10 mg tablet 2021-0 4-12 00:00: 00 02-27 00:00 :00 No [id number] 10mg Take 1 tablet by mouth every 6 (six) hours as needed for Nausea and Vomiting (N/V). [facility] metoclopram abisai HCl 10 mg tablet 2021-0 4-12 00:00: 00 02-27 00:00 :00 No [id number] 10mg Take 1 tablet by mouth every 6 (six) hours as needed for Nausea and Vomiting (N/V). [facility] iohexol (OMNIPAQUE 350 BULK-100 mL) injection 100 mL 01-15 15:47: 00 01-15 16:00 :00 No [id number] 100mL 100 mL, Intravenou s, ONCE, 1 dose, On Sat01/15/21 at 1100, Routine [facility] gadoteridol (PROHANCE-2 0 mL) injection 19.32 mL 01-15 01:51: 00 01-15 02:00 :00 No [id number] .2mL/kg 19.32 mL (0.2 mL/kg ?96.6 kg), Intravenou s, ONCE, 1 dose, On 01/14/21 at 2100, Routine [facility] amitriptyli ne 25 mg tablet 01-15 00:00: 00 02-15 04:59 :00 No [id number] 25mg Take 1 tablet by mouth at bedtime for 30 days. [facility] amitriptyli ne 25 mg tablet 01-15 00:00: 00 02-15 04:59 :00 No [id number] 25mg Take 1 tablet by mouth at bedtime for 30 days. [facility] lidocaine 1% (PF) (XYLOCAINE) injection 01-13 20:50: 37 01-13 20:50 :37 No PRN, Starting on Sat01/13/21 at 1550, Until Sat01/13/21 at 1550, Routine [facility] LORazepam (ATIVAN) tablet 01-13 20:30: 00 01-13 20:30 :00 No Oral, PRN, Starting on Sat01/13/21 at 1530, Until Sat01/13/21 at 1530, Routine [facility] LORazepam (ATIVAN) tablet 1 mg 01-13 18:44: 14 Yes 1mg 1 mg, Oral, PRN - SEE INSTRUCTIO NS, 2 doses, Starting on Sat01/13/21 at 1344, Until Discontinu ed, Routine, Anxiety, to be given prior to LP under IR if needed [facility] magnesium oxide (MAG-OX 400) tablet 400 mg 01-13 14:00: 00 Yes 400mg 400 mg, Oral, DAILY, First dose on Sat01/13/21 at 0900, Until Discontinu ed, Routine [facility] pantoprazol e (PROTONIX) EC tablet 40 mg 01-13 14:00: 00 Yes 40mg 40 mg, Oral, DAILY, First dose on Sat01/13/21 at 0900, Until Discontinu ed, Routine [facility] heparin (porcine) injection 5,000 Units 01-13 13:00: 00 Yes 5000U 5,000 Units, Subcutaneo us, Q12H, First dose on Sat01/13/21 at 0800, Until Discontinu ed, Routine [facility] ondansetron (ZOFRAN (PF)) injection 4 mg 01-13 06:25: 13 Yes 4mg 4 mg, Slow IV Push, Q6HPRN, Starting on Sat01/13/21 at 0125, Until Discontinu ed, Routine, nausea [facility] NaCl 0.9% (NS) IV infusion 1,000 mL 01-13 05:45: 00 Yes 1000mL at 50 mL/hr, IV Infusion, CONTINUOUS , Starting on Sat01/13/21 at 0045, Until Discontinu ed, Routine [facility] acetaminoph en (TYLENOL) tablet 650 mg 01-13 05:32: 37 Yes 650mg 650 mg, Oral, Q6HPRN, Starting on Sat01/13/21 at 0032, Until Discontinu ed, Routine, Pain (scale 4-6) [facility] docusate (COLACE) capsule 100 mg 01-13 05:32: 37 Yes 100mg 100 mg, Oral, QDAILYPRN, Starting on Sat01/13/21 at 0032, Until Discontinu ed, Routine, Constipati on [facility] magnesium oxide 400 mg (241.3 mg magnesium) tablet 01-12 00:00: 00 Yes [id number] 400mg Take 1 tablet by mouth daily. [facility] magnesium oxide 400 mg (241.3 mg magnesium) tablet 01-12 00:00: 00 Yes [id number] 400mg Take 1 tablet by mouth daily. [facility] magnesium oxide 400 mg (241.3 mg magnesium) tablet 01-12 00:00: 00 Yes [id number] 400mg Take 1 tablet by mouth daily. [facility] magnesium oxide 400 mg (241.3 mg magnesium) tablet 01-12 00:00: 00 Yes [id number] 400mg Take 1 tablet by mouth daily. [facility] magnesium oxide 400 mg (241.3 mg magnesium) tablet 01-12 00:00: 00 Yes [id number] 400mg Take 1 tablet by mouth daily. [facility] magnesium oxide 400 mg (241.3 mg magnesium) tablet 01-12 00:00: 00 Yes [id number] 400mg Take 1 tablet by mouth daily. [facility] magnesium oxide 400 mg (241.3 mg magnesium) tablet 01-12 00:00: 00 Yes [id number] 400mg Take 1 tablet by mouth daily. [facility] magnesium oxide 400 mg (241.3 mg magnesium) tablet 01-12 00:00: 00 Yes [id number] 400mg Take 1 tablet by mouth daily. [facility] magnesium oxide 400 mg (241.3 mg magnesium) tablet 01-12 00:00: 00 Yes [id number] 400mg Take 1 tablet by mouth daily. [facility] magnesium oxide 400 mg (241.3 mg magnesium) tablet 01-12 00:00: 00 Yes [id number] 400mg Take 1 tablet by mouth daily. [facility] magnesium oxide 400 mg (241.3 mg magnesium) tablet 01-12 00:00: 00 Yes [id number] 400mg Take 1 tablet by mouth daily. [facility] magnesium oxide 400 mg (241.3 mg magnesium) tablet 01-12 00:00: 00 Yes [id number] 400mg Take 1 tablet by mouth daily. [facility] magnesium oxide 400 mg (241.3 mg magnesium) tablet 01-12 00:00: 00 Yes [id number] 400mg Take 1 tablet by mouth daily. [facility] magnesium oxide 400 mg (241.3 mg magnesium) tablet 01-12 00:00: 00 08-01 00:00 :00 No [id number] 400mg Take 1 tablet by mouth daily. [facility] scopolamine transdermal 1 mg over 3 days patch 11-22 00:00: 00 Yes [id number] 1.5mg Apply 1 Patch to area(s) every 72 (seventy-t wo) hours. [facility] scopolamine transdermal 1 mg over 3 days patch 11-22 00:00: 00 01-15 00:00 :00 No [id number] 1.5mg Apply 1 Patch to area(s) every 72 (seventy-t wo) hours. [facility] scopolamine transdermal 1 mg over 3 days patch 11-22 00:00: 00 01-15 00:00 :00 No [id number] 1.5mg Apply 1 Patch to area(s) every 72 (seventy-t wo) hours. [facility] amoxicillin 500 mg capsule -15 00:00: 00 Yes TAKE 1 CAPSULE BY MOUTH EVERY 8 HOURS DIRECTED FOR 10 DAYS [facility] amoxicillin 500 mg capsule 715 00:00: 00 01-15 00:00 :00 No TAKE 1 CAPSULE BY MOUTH EVERY 8 HOURS DIRECTED FOR 10 DAYS [facility] amoxicillin 500 mg capsule 7-15 00:00: 00 01-15 00:00 :00 No TAKE 1 CAPSULE BY MOUTH EVERY 8 HOURS DIRECTED FOR 10 DAYS [facility] cefUROXime 500 mg tablet 19 00:00: 00 10-25 00:00 :00 No 500mg Take 500 mg by mouth 2 (two) times daily. [facility] norelgestro min-ethinyl estradiol (XULANE) 150-35 mcg/24 hr patch 2020-0 6-04 00:00: 00 10-25 00:00 :00 No [id number] 1{patch } Apply 1 Patch to skin weekly. [facility] vitamin w/FA tablet 08-27 00:00: 00 10-25 00:00 :00 No [id number] 1{tbl} Take 1 tablet by mouth daily. [facility] docusate calcium 240 mg capsule 08-27 00:00: 10-25 00:00 :00 No [id number] 240mg Take 1 capsule by mouth once daily as needed for Constipati on. [facility] ferrous sulfate 325 mg (65 mg iron) tablet 08-27 00:00: 10-25 00:00 :00 No [id number] 325mg Take 1 tablet by mouth 2 (two) times daily. [facility] ibuprofen 600 mg tablet 08-27 00:00: 00 10-25 00:00 :00 No [id number] 600mg Take 1 tablet by mouth every 6 (six) hours as needed (Pain). Take with food or milk. [facility] Immunizations Ordered Immunization Name Filled Immunization Name Date Status Comments Source Influenza Virus Vaccine Quad IM, Preserv and ABX Free 6 MO-64 YRS 2022-01-17 00:00:00 Completed [facility] TDAP 2022-01-17 00:00:00 Completed [facility] Influenza Virus Vaccine Quad IM, Preserv and ABX Free 6 MO-64 YRS 2022-01-17 00:00:00 Completed [facility] TDAP 2022-01-17 00:00:00 Completed [facility] Influenza Virus Vaccine Quad IM, Preserv and ABX Free 6 MO-64 YRS 2022-01-17 00:00:00 Completed [facility] TDAP 2022-01-17 00:00:00 Completed [facility] Influenza Virus Vaccine Quad IM, Preserv and ABX Free 6 MO-64 YRS 2022-01-17 00:00:00 Completed [facility] TDAP 2022-01-17 00:00:00 Completed [facility] Influenza Virus Vaccine Quad IM, Preserv and ABX Free 6 MO-64 YRS 2022-01-17 00:00:00 Completed [facility] TDAP 2022-01-17 00:00:00 Completed [facility] Influenza Virus Vaccine Quad IM, Preserv and ABX Free 6 MO-64 YRS 2022-01-17 00:00:00 Completed [facility] TDAP 2022-01-17 00:00:00 Completed [facility] Influenza Virus Vaccine Quad IM, Preserv and ABX Free 6 MO-64 YRS 2022-01-17 00:00:00 Completed [facility] TDAP 2022-01-17 00:00:00 Completed [facility] Influenza Virus Vaccine Quad IM, Preserv and ABX Free 6 MO-64 YRS 2022-01-17 00:00:00 Completed [facility] TDAP 2022-01-17 00:00:00 [facility] [facility] Virus Vaccine Quad IM, Preserv and ABX Free 6 MO-64 YRS 2022-01-17 00:00:00 Completed [facility] TDAP 2022-01-17 00:00:00 Completed [facility] Influenza Virus Vaccine Quad IM, Preserv and ABX Free 6 MO-64 YRS 2022-01-17 00:00:00 Completed [facility] TDAP 2022-01-17 00:00:00 Completed [facility] Influenza Virus Vaccine Quad IM, Preserv and ABX Free 6 MO-64 YRS 2022-01-17 00:00:00 Completed [facility] TDAP 2022-01-17 00:00:00 Completed [facility] Influenza Virus Vaccine Quad IM, Preserv and ABX Free 6 MO-64 YRS 2022-01-17 00:00:00 Completed [facility] TDAP 2022-01-17 00:00:00 Completed [facility] Influenza Virus Vaccine Quad IM, Preserv and ABX Free 6 MO-64 YRS 2022-01-17 00:00:00 Completed [facility] TDAP 2022-01-17 00:00:00 Completed [facility] Influenza Virus Vaccine Quad IM, Preserv and ABX Free 6 MO-64 YRS 2022-01-17 00:00:00 Completed [facility] TDAP 2022-01-17 00:00:00 Completed [facility] Influenza Virus Vaccine Quad IM, Preserv and ABX Free 6 MO-64 YRS 2022-01-17 00:00:00 Completed [facility] TDAP 2022-01-17 00:00:00 Completed [facility] Influenza Virus Vaccine Quad IM, Preserv and ABX Free 6 MO-64 YRS 2022-01-17 00:00:00 Completed [facility] TDAP 2022-01-17 00:00:00 Completed [facility] Influenza Virus Vaccine Quad IM, Preserv and ABX Free 6 MO-64 YRS 2022-01-17 00:00:00 Completed [facility] TDAP 2022-01-17 00:00:00 Completed [facility] Influenza Virus Vaccine Quad IM, Preserv and ABX Free 6 MO-64 YRS 2022-01-17 00:00:00 Completed [facility] TDAP 2022-01-17 00:00:00 Completed [facility] Influenza Virus Vaccine Quad IM, Preserv and ABX Free 6 MO-64 YRS 2022-01-17 00:00:00 Completed [facility] TDAP 2022-01-17 00:00:00 Completed [facility] Influenza Virus Vaccine Quad IM, Preserv and ABX Free 6 MO-64 YRS 2022-01-17 00:00:00 Completed [facility] TDAP 2022-01-17 00:00:00 Completed [facility] Influenza Virus Vaccine Quad IM, Preserv and ABX Free 6 MO-64 YRS 2022-01-17 00:00:00 Completed [facility] TDAP 2022-01-17 00:00:00 Completed [facility] Influenza Virus Vaccine Quad IM, Preserv and ABX Free 6 MO-64 YRS 2022-01-17 00:00:00 Completed [facility] TDAP 2022-01-17 00:00:00 Completed [facility] Influenza Virus Vaccine Quad IM, Preserv and ABX Free 6 MO-64 YRS 2022-01-17 00:00:00 Completed [facility] TDAP 2022-01-17 00:00:00 Completed [facility] Influenza Virus Vaccine Quad IM, Preserv and ABX Free 6 MO-64 YRS 2022-01-17 00:00:00 Completed [facility] TDAP 2022-01-17 00:00:00 Completed [facility] Influenza Virus Vaccine Quad IM, Preserv and ABX Free 6 MO-64 YRS 2022-01-17 00:00:00 Completed [facility] TDAP 2022-01-17 00:00:00 Completed [facility] Influenza Virus Vaccine Quad IM, Preserv and ABX Free 6 MO-64 YRS 2022-01-17 00:00:00 Completed [facility] TDAP 2022-01-17 00:00:00 Completed [facility] Influenza Virus Vaccine Quad IM, Preserv and ABX Free 6 MO-64 YRS 2022-01-17 00:00:00 Completed [facility] TDAP 2022-01-17 00:00:00 Completed [facility] Influenza Virus Vaccine Quad IM, Preserv and ABX Free 6 MO-64 YRS 2022-01-17 00:00:00 Completed [facility] TDAP 2022-01-17 00:00:00 Completed [facility] Influenza Virus Vaccine Quad IM, Preserv and ABX Free 6 MO-64 YRS 2022-01-17 00:00:00 Completed [facility] TDAP 2022-01-17 00:00:00 Completed [facility] Influenza Virus Vaccine Quad IM, Preserv and ABX Free 6 MO-64 YRS 2022-01-17 00:00:00 Completed [facility] TDAP 2022-01-17 00:00:00 Completed [facility] Influenza Virus Vaccine Quad IM, Preserv and ABX Free 6 MO-64 YRS 2022-01-17 00:00:00 Completed [facility] TDAP 2022-01-17 00:00:00 Completed [facility] Influenza Virus Vaccine Quad IM, Preserv and ABX Free 6 MO-64 YRS 2022-01-17 00:00:00 Completed [facility] TDAP 2022-01-17 00:00:00 Completed [facility] Influenza Virus Vaccine Quad IM, Preserv and ABX Free 6 MO-64 YRS 2022-01-17 00:00:00 Completed [facility] TDAP 2022-01-17 00:00:00 Completed [facility] Influenza Virus Vaccine Quad IM, Preserv and ABX Free 6 MO-64 YRS 2022-01-17 00:00:00 Completed [facility] TDAP 2022-01-17 00:00:00 Completed [facility] Influenza Virus Vaccine Quad IM, Preserv and ABX Free 6 MO-64 YRS 2022-01-17 00:00:00 Completed [facility] TDAP 2022-01-17 00:00:00 Completed [facility] Influenza Virus Vaccine Quad IM, Preserv and ABX Free 6 MO-64 YRS 2022-01-17 00:00:00 Completed [facility] TDAP 2022-01-17 00:00:00 Completed [facility] Influenza Virus Vaccine Quad IM, Preserv and ABX Free 6 MO-64 YRS 2022-01-17 00:00:00 Completed [facility] TDAP 2022-01-17 00:00:00 Completed [facility] Influenza Virus Vaccine Quad IM, Preserv and ABX Free 6 MO-64 YRS 2022-01-17 00:00:00 Completed [facility] TDAP 2022-01-17 00:00:00 Completed [facility] Influenza Virus Vaccine Quad IM, Preserv and ABX Free 6 MO-64 YRS 2022-01-17 00:00:00 Completed [facility] TDAP 2022-01-17 00:00:00 Completed [facility] Influenza Virus Vaccine Quad IM, Preserv and ABX Free 6 MO-64 YRS 2022-01-17 00:00:00 Completed [facility] TDAP 2022-01-17 00:00:00 Completed [facility] Influenza Virus Vaccine Quad IM, Preserv and ABX Free 6 MO-64 YRS 2022-01-17 00:00:00 Completed [facility] TDAP 2022-01-17 00:00:00 Completed [facility] Influenza Virus Vaccine Quad IM, Preserv and ABX Free 6 MO-64 YRS 2022-01-17 00:00:00 Completed [facility] TDAP 2022-01-17 00:00:00 Completed [facility] Influenza Virus Vaccine Quad IM, Preserv and ABX Free 6 MO-64 YRS 2022-01-17 00:00:00 Completed [facility] TDAP 2022-01-17 00:00:00 Completed [facility] Influenza Virus Vaccine Quad IM, Preserv and ABX Free 6 MO-64 YRS 2022-01-17 00:00:00 Completed [facility] TDAP 2022-01-17 00:00:00 Completed [facility] Influenza Virus Vaccine Quad IM, Preserv and ABX Free 6 MO-64 YRS 2022-01-17 00:00:00 Completed [facility] TDAP 2022-01-17 00:00:00 Completed [facility] Influenza Virus Vaccine Quad IM, Preserv and ABX Free 6 MO-64 YRS 2022-01-17 00:00:00 Completed [facility] TDAP 2022-01-17 00:00:00 Completed [facility] Influenza Virus Vaccine Quad IM, Preserv and ABX Free 6 MO-64 YRS 2022-01-17 00:00:00 Completed [facility] TDAP 2022-01-17 00:00:00 Completed [facility] Influenza Virus Vaccine Quad IM, Preserv and ABX Free 6 MO-64 YRS 2022-01-17 00:00:00 Completed [facility] TDAP 2022-01-17 00:00:00 Completed [facility] Influenza Virus Vaccine Quad IM, Preserv and ABX Free 6 MO-64 YRS 2022-01-17 00:00:00 Completed [facility] TDAP 2022-01-17 00:00:00 Completed [facility] Influenza Virus Vaccine Quad IM, Preserv and ABX Free 6 MO-64 YRS 2022-01-17 00:00:00 Completed [facility] TDAP 2022-01-17 00:00:00 Completed [facility] Influenza Virus Vaccine Quad IM, Preserv and ABX Free 6 MO-64 YRS 2022-01-17 00:00:00 Completed [facility] TDAP 2022-01-17 00:00:00 Completed [facility] Influenza Virus Vaccine Quad IM, Preserv and ABX Free 6 MO-64 YRS 2022-01-17 00:00:00 Completed [facility] TDAP 2022-01-17 00:00:00 Completed [facility] Influenza Virus Vaccine Quad IM, Preserv and ABX Free 6 MO-64 YRS 2022-01-17 00:00:00 Completed [facility] TDAP 2022-01-17 00:00:00 Completed [facility] Influenza Virus Vaccine Quad IM, Preserv and ABX Free 6 MO-64 YRS 2021-07-19 00:00:00 Completed [facility] Influenza Virus Vaccine Quad IM, Preserv and ABX Free 6 MO-64 YRS 2021-07-19 00:00:00 Completed [facility] Influenza Virus Vaccine Quad IM, Preserv and ABX Free 6 MO-64 YRS 2021-07-19 00:00:00 Completed [facility] Influenza Virus Vaccine Quad IM, Preserv and ABX Free 6 MO-64 YRS 2021-07-19 00:00:00 Completed [facility] Influenza Virus Vaccine Quad IM, Preserv and ABX Free 6 MO-64 YRS 2021-07-19 00:00:00 Completed [facility] Influenza Virus Vaccine Quad IM, Preserv and ABX Free 6 MO-64 YRS 2021-07-19 00:00:00 Completed [facility] Influenza Virus Vaccine Quad IM, Preserv and ABX Free 6 MO-64 YRS 2021-07-19 00:00:00 Completed [facility] Influenza Virus Vaccine Quad IM, Preserv and ABX Free 6 MO-64 YRS 2021-07-19 00:00:00 Completed [facility] Influenza Virus Vaccine Quad IM, Preserv and ABX Free 6 MO-64 YRS 2021-07-19 00:00:00 Completed [facility] Influenza Virus Vaccine Quad IM, Preserv and ABX Free 6 MO-64 YRS 2021-07-19 00:00:00 Completed [facility] Influenza Virus Vaccine Quad IM, Preserv and ABX Free 6 MO-64 YRS 2021-07-19 00:00:00 Completed [facility] Influenza Virus Vaccine Quad IM, Preserv and ABX Free 6 MO-64 YRS 2021-07-19 00:00:00 Completed [facility] Influenza Virus Vaccine Quad IM, Preserv and ABX Free 6 MO-64 YRS 2021-07-19 00:00:00 Completed [facility] Influenza Virus Vaccine Quad IM, Preserv and ABX Free 6 MO-64 YRS 2021-07-19 00:00:00 Completed [facility] Influenza Virus Vaccine Quad IM, Preserv and ABX Free 6 MO-64 YRS 2021-07-19 00:00:00 Completed [facility] Influenza Virus Vaccine Quad IM, Preserv and ABX Free 6 MO-64 YRS 2021-07-19 00:00:00 Completed [facility] Influenza Virus Vaccine Quad IM, Preserv and ABX Free 6 MO-64 YRS 2021-07-19 00:00:00 Completed [facility] Influenza Virus Vaccine Quad IM, Preserv and ABX Free 6 MO-64 YRS 2021-07-19 00:00:00 Completed [facility] Influenza Virus Vaccine Quad IM, Preserv and ABX Free 6 MO-64 YRS 2021-07-19 00:00:00 Completed [facility] Influenza Virus Vaccine Quad IM, Preserv and ABX Free 6 MO-64 YRS 2021-07-19 00:00:00 Completed [facility] Influenza Virus Vaccine Quad IM, Preserv and ABX Free 6 MO-64 YRS 2021-07-19 00:00:00 Completed [facility] Influenza Virus Vaccine Quad IM, Preserv and ABX Free 6 MO-64 YRS 2021-07-19 00:00:00 Completed [facility] Influenza Virus Vaccine Quad IM, Preserv and ABX Free 6 MO-64 YRS 2021-07-19 00:00:00 Completed [facility] Influenza Virus Vaccine Quad IM, Preserv and ABX Free 6 MO-64 YRS 2021-07-19 00:00:00 Completed [facility] Influenza Virus Vaccine Quad IM, Preserv and ABX Free 6 MO-64 YRS 2021-07-19 00:00:00 Completed [facility] Influenza Virus Vaccine Quad IM, Preserv and ABX Free 6 MO-64 YRS 2021-07-19 00:00:00 Completed [facility] Influenza Virus Vaccine Quad IM, Preserv and ABX Free 6 MO-64 YRS 2021-07-19 00:00:00 Completed [facility] Influenza Virus Vaccine Quad IM, Preserv and ABX Free 6 MO-64 YRS 2021-07-19 00:00:00 Completed [facility] Influenza Virus Vaccine Quad IM, Preserv and ABX Free 6 MO-64 YRS 2021-07-19 00:00:00 Completed [facility] Influenza Virus Vaccine Quad IM, Preserv and ABX Free 6 MO-64 YRS 2021-07-19 00:00:00 Completed [facility] Influenza Virus Vaccine Quad IM, Preserv and ABX Free 6 MO-64 YRS 2021-07-19 00:00:00 Completed [facility] Influenza Virus Vaccine Quad IM, Preserv and ABX Free 6 MO-64 YRS 2021-07-19 00:00:00 Completed [facility] Influenza Virus Vaccine Quad IM, Preserv and ABX Free 6 MO-64 YRS 2021-07-19 00:00:00 Completed [facility] Influenza Virus Vaccine Quad IM, Preserv and ABX Free 6 MO-64 YRS 2021-07-19 00:00:00 Completed [facility] Influenza Virus Vaccine Quad IM, Preserv and ABX Free 6 MO-64 YRS 2021-07-19 00:00:00 Completed [facility] Influenza Virus Vaccine Quad IM, Preserv and ABX Free 6 MO-64 YRS 2021-07-19 00:00:00 Completed [facility] Influenza Virus Vaccine Quad IM, Preserv and ABX Free 6 MO-64 YRS 2021-07-19 00:00:00 Completed [facility] Influenza Virus Vaccine Quad IM, Preserv and ABX Free 6 MO-64 YRS 2021-07-19 00:00:00 Completed [facility] Influenza Virus Vaccine Quad IM, Preserv and ABX Free 6 MO-64 YRS 2021-07-19 00:00:00 Completed [facility] Influenza Virus Vaccine Quad IM, Preserv and ABX Free 6 MO-64 2021-07-19 00:00:00 Completed [facility] Influenza Virus Vaccine Quad IM, Preserv and ABX Free 6 MO-64 YRS 2021-07-19 00:00:00 Completed [facility] Influenza Virus Vaccine Quad IM, Preserv and ABX Free 6 MO-64 2021-07-19 00:00:00 Completed [facility] Influenza Virus Vaccine Quad IM, Preserv and ABX Free 6 MO-64 YRS 2021-07-19 00:00:00 Completed [facility] Influenza Virus Vaccine Quad IM, Preserv and ABX Free 6 MO-64 YRS 2021-07-19 00:00:00 Completed [facility] Influenza Virus Vaccine Quad IM, Preserv and ABX Free 6 MO-64 YRS 2021-07-19 00:00:00 Completed [facility] Influenza Virus Vaccine Quad IM, Preserv and ABX Free 6 MO-64 YRS 2021-07-19 00:00:00 Completed [facility] Influenza Virus Vaccine Quad IM, Preserv and ABX Free 6 MO-64 YRS 2021-07-19 00:00:00 Completed [facility] Influenza Virus Vaccine Quad IM, Preserv and ABX Free 6 MO-64 YRS 2021-07-19 00:00:00 Completed [facility] Influenza Virus Vaccine Quad IM, Preserv and ABX Free 6 MO-64 YRS 2021-07-19 00:00:00 Completed [facility] Influenza Virus Vaccine Quad IM, Preserv and ABX Free 6 MO-64 YRS 2021-07-19 00:00:00 Completed [facility] Influenza Virus Vaccine Quad IM, Preserv and ABX Free 6 MO-64 2021-07-19 00:00:00 Completed [facility] Influenza Virus Vaccine Quad IM, Preserv and ABX Free 6 MO-64 YRS 2021-07-19 00:00:00 Completed [facility] Influenza Virus Vaccine Quad IM, Preserv and ABX Free 6 MO-64 YRS 2021-07-19 00:00:00 Completed [facility] Influenza Virus Vaccine Quad IM, Preserv and ABX Free 6 MO-64 YRS 2021-07-19 00:00:00 Completed [facility] Influenza Virus Vaccine Quad IM, Preserv and ABX Free 6 MO-64 YRS 2021-07-19 00:00:00 Completed [facility] Influenza Virus Vaccine Quad IM, Preserv and ABX Free 6 MO-64 YRS 2021-07-19 00:00:00 Completed [facility] Influenza Virus Vaccine Quad IM, Preserv and ABX Free 6 MO-64 YRS 2021-07-19 00:00:00 Completed [facility] Influenza Virus Vaccine Quad IM, Preserv and ABX Free 6 MO-64 YRS 2021-07-19 00:00:00 Completed [facility] Influenza Virus Vaccine Quad IM, Preserv and ABX Free 6 MO-64 YRS 2021-07-19 00:00:00 Completed [facility] Influenza Virus Vaccine Quad IM, Preserv and ABX Free 6 MO-64 YRS 2021-07-19 00:00:00 Completed [facility] Influenza Virus Vaccine Quad IM, Preserv and ABX Free 6 MO-64 YRS 2021-07-19 00:00:00 Completed [facility] Influenza Virus Vaccine Quad IM, Preserv and ABX Free 6 MO-64 YRS 2021-07-19 00:00:00 Completed [facility] Influenza Virus Vaccine Quad IM, Preserv and ABX Free 6 MO-64 YRS 2021-07-19 00:00:00 Completed [facility] Influenza Virus Vaccine Quad IM, Preserv and ABX Free 6 MO-64 YRS 2021-07-19 00:00:00 Completed [facility] Influenza Virus Vaccine Quad IM, Preserv and ABX Free 6 MO-64 YRS 2021-07-19 00:00:00 Completed [facility] Influenza Virus Vaccine Quad IM, Preserv and ABX Free 6 MO-64 YRS 2021-07-19 00:00:00 Completed [facility] Influenza Virus Vaccine Quad IM, Preserv and ABX Free 6 MO-64 YRS 2021-07-19 00:00:00 Completed [facility] Influenza Virus Vaccine Quad IM, Preserv and ABX Free 6 MO-64 YRS 2021-07-19 00:00:00 Completed [facility] Influenza Virus Vaccine Quad IM, Preserv and ABX Free 6 MO-64 YRS 2021-07-19 00:00:00 Completed [facility] Influenza Virus Vaccine Quad IM, Preserv and ABX Free 6 MO-64 YRS 2021-07-19 00:00:00 Completed [facility] Influenza Virus Vaccine Quad IM, Preserv and ABX Free 6 MO-64 YRS 2021-07-19 00:00:00 Completed [facility] Influenza Virus Vaccine Quad IM, Preserv and ABX Free 6 MO-64 YRS 2021-07-19 00:00:00 Completed [facility] Influenza Virus Vaccine Quad IM, Preserv and ABX Free 6 MO-64 YRS 2021-07-19 00:00:00 Completed [facility] Influenza Virus Vaccine Quad IM, Preserv and ABX Free 6 MO-64 YRS 2021-07-19 00:00:00 Completed [facility] Influenza Virus Vaccine Quad IM, Preserv and ABX Free 6 MO-64 YRS 2021-07-19 00:00:00 Completed [facility] Influenza Virus Vaccine Quad IM, Preserv and ABX Free 6 MO-64 YRS 2021-07-19 00:00:00 Completed [facility] TDAP (ADACEL) VACCINE 2019-06-29 00:00:00 Completed [facility] TDAP (ADACEL) VACCINE 2019-06-29 00:00:00 Completed [facility] TDAP (ADACEL) VACCINE 2019-06-29 00:00:00 Completed [facility] TDAP (ADACEL) VACCINE 2019-06-29 00:00:00 Completed [facility] TDAP (ADACEL) VACCINE 2019-06-29 00:00:00 Completed [facility] TDAP (ADACEL) VACCINE 2019-06-29 00:00:00 Completed [facility] TDAP (ADACEL) VACCINE 2019-06-29 00:00:00 Completed [facility] TDAP (ADACEL) VACCINE 2019-06-29 00:00:00 Completed [facility] TDAP (ADACEL) VACCINE 2019-06-29 00:00:00 Completed [facility] TDAP (ADACEL) VACCINE 2019-06-29 00:00:00 Completed [facility] TDAP (ADACEL) VACCINE 2019-06-29 00:00:00 Completed [facility] TDAP (ADACEL) VACCINE 2019-06-29 00:00:00 Completed [facility] TDAP (ADACEL) VACCINE 2019-06-29 00:00:00 Completed [facility] TDAP (ADACEL) VACCINE 2019-06-29 00:00:00 Completed [facility] TDAP (ADACEL) VACCINE 2019-06-29 00:00:00 Completed [facility] TDAP (ADACEL) VACCINE 2019-06-29 00:00:00 Completed [facility] TDAP (ADACEL) VACCINE 2019-06-29 00:00:00 Completed [facility] TDAP (ADACEL) VACCINE 2019-06-29 00:00:00 Completed [facility] TDAP (ADACEL) VACCINE 2019-06-29 00:00:00 Completed [facility] TDAP (ADACEL) VACCINE 2019-06-29 00:00:00 Completed [facility] TDAP (ADACEL) VACCINE 2019-06-29 00:00:00 Completed [facility] TDAP (ADACEL) VACCINE 2019-06-29 00:00:00 Completed [facility] TDAP (ADACEL) VACCINE 2019-06-29 00:00:00 Completed [facility] TDAP (ADACEL) VACCINE 2019-06-29 00:00:00 Completed [facility] TDAP (ADACEL) VACCINE 2019-06-29 00:00:00 Completed [facility] TDAP (ADACEL) VACCINE 2019-06-29 00:00:00 Completed [facility] TDAP (ADACEL) VACCINE 2019-06-29 00:00:00 Completed [facility] TDAP (ADACEL) VACCINE 2019-06-29 00:00:00 Completed [facility] TDAP (ADACEL) VACCINE 2019-06-29 00:00:00 Completed [facility] TDAP (ADACEL) VACCINE 2019-06-29 00:00:00 Completed [facility] TDAP (ADACEL) VACCINE 2019-06-29 00:00:00 Completed [facility] TDAP (ADACEL) VACCINE 2019-06-29 00:00:00 Completed [facility] TDAP (ADACEL) VACCINE 2019-06-29 00:00:00 Completed [facility] TDAP (ADACEL) VACCINE 2019-06-29 00:00:00 Completed [facility] TDAP (ADACEL) VACCINE 2019-06-29 00:00:00 Completed [facility] TDAP (ADACEL) VACCINE 2019-06-29 00:00:00 Completed [facility] TDAP (ADACEL) VACCINE 2019-06-29 00:00:00 Completed [facility] TDAP (ADACEL) VACCINE 2019-06-29 00:00:00 Completed [facility] TDAP (ADACEL) VACCINE 2019-06-29 00:00:00 Completed [facility] TDAP (ADACEL) VACCINE 2019-06-29 00:00:00 Completed [facility] TDAP (ADACEL) VACCINE 2019-06-29 00:00:00 Completed [facility] TDAP (ADACEL) VACCINE 2019-06-29 00:00:00 Completed [facility] TDAP (ADACEL) VACCINE 2019-06-29 00:00:00 Completed [facility] TDAP (ADACEL) VACCINE 2019-06-29 00:00:00 Completed [facility] TDAP (ADACEL) VACCINE 2019-06-29 00:00:00 Completed [facility] TDAP (ADACEL) VACCINE 2019-06-29 00:00:00 Completed [facility] TDAP (ADACEL) VACCINE 2019-06-29 00:00:00 Completed [facility] TDAP (ADACEL) VACCINE 2019-06-29 00:00:00 Completed [facility] TDAP (ADACEL) VACCINE 2019-06-29 00:00:00 Completed [facility] TDAP (ADACEL) VACCINE 2019-06-29 00:00:00 Completed [facility] TDAP (ADACEL) VACCINE 2019-06-29 00:00:00 Completed [facility] TDAP (ADACEL) VACCINE 2019-06-29 00:00:00 Completed [facility] TDAP (ADACEL) VACCINE 2019-06-29 00:00:00 Completed [facility] TDAP (ADACEL) VACCINE 2019-06-29 00:00:00 Completed [facility] TDAP (ADACEL) VACCINE 2019-06-29 00:00:00 Completed [facility] TDAP (ADACEL) VACCINE 2019-06-29 00:00:00 Completed [facility] TDAP (ADACEL) VACCINE 2019-06-29 00:00:00 Completed [facility] TDAP (ADACEL) VACCINE 2019-06-29 00:00:00 Completed [facility] TDAP (ADACEL) VACCINE 2019-06-29 00:00:00 Completed [facility] TDAP (ADACEL) VACCINE 2019-06-29 00:00:00 Completed [facility] TDAP (ADACEL) VACCINE 2019-06-29 00:00:00 Completed [facility] TDAP (ADACEL) VACCINE 2019-06-29 00:00:00 Completed [facility] TDAP (ADACEL) VACCINE 2019-06-29 00:00:00 Completed [facility] TDAP (ADACEL) VACCINE 2019-06-29 00:00:00 Completed [facility] TDAP (ADACEL) VACCINE 2019-06-29 00:00:00 Completed [facility] TDAP (ADACEL) VACCINE 2019-06-29 00:00:00 Completed [facility] TDAP (ADACEL) VACCINE 2019-06-29 00:00:00 Completed [facility] TDAP (ADACEL) VACCINE 2019-06-29 00:00:00 Completed [facility] TDAP (ADACEL) VACCINE 2019-06-29 00:00:00 Completed [facility] TDAP (ADACEL) VACCINE 2019-06-29 00:00:00 Completed [facility] TDAP (ADACEL) VACCINE 2019-06-29 00:00:00 Completed [facility] TDAP (ADACEL) VACCINE 2019-06-29 00:00:00 Completed [facility] TDAP (ADACEL) VACCINE 2019-06-29 00:00:00 Completed [facility] TDAP (ADACEL) VACCINE 2019-06-29 00:00:00 Completed [facility] TDAP (ADACEL) VACCINE 2019-06-29 00:00:00 Completed [facility] TDAP (ADACEL) VACCINE 2019-06-29 00:00:00 Completed [facility] TDAP (ADACEL) VACCINE 2019-06-29 00:00:00 Completed [facility] TDAP (ADACEL) VACCINE 2019-06-29 00:00:00 Completed [facility] TDAP (ADACEL) VACCINE 2019-06-29 00:00:00 Completed [facility] TDAP (ADACEL) VACCINE 2019-06-29 00:00:00 [facility]pleted [facility] [facility]ADACEL[facility] VACCINE 2019-06-29 00:00:00 Completed [facility] Influenza Virus Vaccine Quad .5 mL IM 6+ MO 2019-02-11 00:00:00 Completed [facility] Influenza Virus Vaccine Quad .5 mL IM 6+ MO 2019-02-11 00:00:00 Completed [facility] Influenza Virus Vaccine Quad .5 mL IM 6+ MO 2019-02-11 00:00:00 Completed [facility] Influenza Virus Vaccine Quad .5 mL IM 6+ MO 2019-02-11 00:00:00 Completed [facility] Influenza Virus Vaccine Quad .5 mL IM 6+ MO 2019-02-11 00:00:00 Completed [facility] Influenza Virus Vaccine Quad .5 mL IM 6+ MO 2019-02-11 00:00:00 Completed [facility] Influenza Virus Vaccine Quad .5 mL IM 6+ MO 2019-02-11 00:00:00 Completed [facility] Influenza Virus Vaccine Quad .5 mL IM 6+ MO 2019-02-11 00:00:00 Completed [facility] Influenza Virus Vaccine Quad .5 mL IM 6+ MO 2019-02-11 00:00:00 Completed [facility] Influenza Virus Vaccine Quad .5 mL IM 6+ MO 2019-02-11 00:00:00 Completed [facility] Influenza Virus Vaccine Quad .5 mL IM 6+ MO 2019-02-11 00:00:00 Completed [facility] Influenza Virus Vaccine Quad .5 mL IM 6+ MO 2019-02-11 00:00:00 Completed [facility] Influenza Virus Vaccine Quad .5 mL IM 6+ MO 2019-02-11 00:00:00 Completed [facility] Influenza Virus Vaccine Quad .5 mL IM 6+ MO 2019-02-11 00:00:00 Completed [facility] Influenza Virus Vaccine Quad .5 mL IM 6+ MO 2019-02-11 00:00:00 Completed [facility] Influenza Virus Vaccine Quad .5 mL IM 6+ MO 2019-02-11 00:00:00 Completed [facility] Influenza Virus Vaccine Quad .5 mL IM 6+ MO 2019-02-11 00:00:00 Completed [facility] Influenza Virus Vaccine Quad .5 mL IM 6+ MO 2019-02-11 00:00:00 Completed [facility] Influenza Virus Vaccine Quad .5 mL IM 6+ MO 2019-02-11 00:00:00 Completed [facility] Influenza Virus Vaccine Quad .5 mL IM 6+ MO 2019-02-11 00:00:00 Completed [facility] Influenza Virus Vaccine Quad .5 mL IM 6+ MO 2019-02-11 00:00:00 Completed [facility] Influenza Virus Vaccine Quad .5 mL IM 6+ MO 2019-02-11 00:00:00 Completed [facility] Influenza Virus Vaccine Quad .5 mL IM 6+ MO 2019-02-11 00:00:00 Completed [facility] Influenza Virus Vaccine Quad .5 mL IM 6+ MO 2019-02-11 00:00:00 Completed [facility] Influenza Virus Vaccine Quad .5 mL IM 6+ MO 2019-02-11 00:00:00 Completed [facility] Influenza Virus Vaccine Quad .5 mL IM 6+ MO 2019-02-11 00:00:00 Completed [facility] Influenza Virus Vaccine Quad .5 mL IM 6+ MO 2019-02-11 00:00:00 Completed [facility] Influenza Virus Vaccine Quad .5 mL IM 6+ MO 2019-02-11 00:00:00 Completed [facility] Influenza Virus Vaccine Quad .5 mL IM 6+ MO 2019-02-11 00:00:00 Completed [facility] Influenza Virus Vaccine Quad .5 mL IM 6+ MO 2019-02-11 00:00:00 Completed [facility] Influenza Virus Vaccine Quad .5 mL IM 6+ MO 2019-02-11 00:00:00 Completed [facility] Influenza Virus Vaccine Quad .5 mL IM 6+ MO 2019-02-11 00:00:00 Completed [facility] Influenza Virus Vaccine Quad .5 mL IM 6+ MO 2019-02-11 00:00:00 Completed [facility] Influenza Virus Vaccine Quad .5 mL IM 6+ MO 2019-02-11 00:00:00 Completed [facility] Influenza Virus Vaccine Quad .5 mL IM 6+ MO 2019-02-11 00:00:00 Completed [facility] Influenza Virus Vaccine Quad .5 mL IM 6+ MO 2019-02-11 00:00:00 Completed [facility] Influenza Virus Vaccine Quad .5 mL IM 6+ MO 2019-02-11 00:00:00 Completed [facility] Influenza Virus Vaccine Quad .5 mL IM 6+ MO 2019-02-11 00:00:00 Completed [facility] Influenza Virus Vaccine Quad .5 mL IM 6+ MO 2019-02-11 00:00:00 Completed [facility] Influenza Virus Vaccine Quad .5 mL IM 6+ MO 2019-02-11 00:00:00 Completed [facility] Influenza Virus Vaccine Quad .5 mL IM 6+ MO 2019-02-11 00:00:00 Completed [facility] Influenza Virus Vaccine Quad .5 mL IM 6+ MO 2019-02-11 00:00:00 Completed [facility] Influenza Virus Vaccine Quad .5 mL IM 6+ MO 2019-02-11 00:00:00 Completed [facility] Influenza Virus Vaccine Quad .5 mL IM 6+ MO 2019-02-11 00:00:00 Completed [facility] Influenza Virus Vaccine Quad .5 mL IM 6+ MO 2019-02-11 00:00:00 Completed [facility] Influenza Virus Vaccine Quad .5 mL IM 6+ MO 2019-02-11 00:00:00 Completed [facility] Influenza Virus Vaccine Quad .5 mL IM 6+ MO 2019-02-11 00:00:00 Completed [facility] Influenza Virus Vaccine Quad .5 mL IM 6+ MO 2019-02-11 00:00:00 Completed [facility] Influenza Virus Vaccine Quad .5 mL IM 6+ MO 2019-02-11 00:00:00 Completed [facility] Influenza Virus Vaccine Quad .5 mL IM 6+ MO 2019-02-11 00:00:00 Completed [facility] Influenza Virus Vaccine Quad .5 mL IM 6+ MO 2019-02-11 00:00:00 Completed [facility] Influenza Virus Vaccine Quad .5 mL IM 6+ MO 2019-02-11 00:00:00 Completed [facility] Influenza Virus Vaccine Quad .5 mL IM 6+ MO 2019-02-11 00:00:00 Completed [facility] Influenza Virus Vaccine Quad .5 mL IM 6+ MO 2019-02-11 00:00:00 Completed [facility] Influenza Virus Vaccine Quad .5 mL IM 6+ MO 2019-02-11 00:00:00 Completed [facility] Influenza Virus Vaccine Quad .5 mL IM 6+ MO 2019-02-11 00:00:00 Completed [facility] Influenza Virus Vaccine Quad .5 mL IM 6+ MO 2019-02-11 00:00:00 Completed [facility] Influenza Virus Vaccine Quad .5 mL IM 6+ MO 2019-02-11 00:00:00 Completed [facility] Influenza Virus Vaccine Quad .5 mL IM 6+ MO 2019-02-11 00:00:00 Completed [facility] Influenza Virus Vaccine Quad .5 mL IM 6+ MO 2019-02-11 00:00:00 Completed [facility] Influenza Virus Vaccine Quad .5 mL IM 6+ MO 2019-02-11 00:00:00 Completed [facility] Influenza Virus Vaccine Quad .5 mL IM 6+ MO 2019-02-11 00:00:00 Completed [facility] Influenza Virus Vaccine Quad .5 mL IM 6+ MO 2019-02-11 00:00:00 Completed [facility] Influenza Virus Vaccine Quad .5 mL IM 6+ MO 2019-02-11 00:00:00 Completed [facility] Influenza Virus Vaccine Quad .5 mL IM 6+ MO 2019-02-11 00:00:00 Completed [facility] Influenza Virus Vaccine Quad .5 mL IM 6+ MO 2019-02-11 00:00:00 Completed [facility] Influenza Virus Vaccine Quad .5 mL IM 6+ MO 2019-02-11 00:00:00 Completed [facility] Influenza Virus Vaccine Quad .5 mL IM 6+ MO 2019-02-11 00:00:00 Completed [facility] Influenza Virus Vaccine Quad .5 mL IM 6+ MO 2019-02-11 00:00:00 Completed [facility] Influenza Virus Vaccine Quad .5 mL IM 6+ MO 2019-02-11 00:00:00 Completed [facility] Influenza Virus Vaccine Quad .5 mL IM 6+ MO 2019-02-11 00:00:00 Completed [facility] Influenza Virus Vaccine Quad .5 mL IM 6+ MO 2019-02-11 00:00:00 Completed [facility] Influenza Virus Vaccine Quad .5 mL IM 6+ MO 2019-02-11 00:00:00 Completed [facility] Influenza Virus Vaccine Quad .5 mL IM 6+ MO 2019-02-11 00:00:00 Completed [facility] Influenza Virus Vaccine Quad .5 mL IM 6+ MO 2019-02-11 00:00:00 Completed [facility] Influenza Virus Vaccine Quad .5 mL IM 6+ MO 2019-02-11 00:00:00 Completed [facility] Influenza Virus Vaccine Quad .5 mL IM 6+ MO 2019-02-11 00:00:00 Completed [facility] Influenza Virus Vaccine Quad .5 mL IM 6+ MO 2019-02-11 00:00:00 Completed [facility] Influenza Virus Vaccine Quad .5 mL IM 6+ MO 2019-02-11 00:00:00 Completed [facility] Influenza Virus Vaccine Quad .5 mL IM 6+ MO 2019-02-11 00:00:00 Completed [facility] Influenza Virus Vaccine Quad .5 mL IM 6+ MO 2019-02-11 00:00:00 Completed [facility] Varicella (varivax)(chicken pox) 2018-02-12 00:00:00 Completed [facility] Varicella (varivax)(chicken pox) 2018-02-12 00:00:00 Completed [facility] Varicella (varivax)(chicken pox) 2018-02-12 00:00:00 Completed [facility] Varicella (varivax)(chicken pox) 2018-02-12 00:00:00 Completed [facility] Varicella (varivax)(chicken pox) 2018-02-12 00:00:00 Completed [facility] Varicella (varivax)(chicken pox) 2018-02-12 00:00:00 Completed [facility] Varicella (varivax)(chicken pox) 2018-02-12 00:00:00 Completed [facility] Varicella (varivax)(chicken pox) 2018-02-12 00:00:00 Completed [facility] Varicella (varivax)(chicken pox) 2018-02-12 00:00:00 Completed [facility] Varicella (varivax)(chicken pox) 2018-02-12 00:00:00 Completed [facility] Varicella (varivax)(chicken pox) 2018-02-12 00:00:00 Completed [facility] Varicella (varivax)(chicken pox) 2018-02-12 00:00:00 Completed [facility] Varicella (varivax)(chicken pox) 2018-02-12 00:00:00 Completed [facility] Varicella (varivax)(chicken pox) 2018-02-12 00:00:00 Completed [facility] Varicella (varivax)(chicken pox) 2018-02-12 00:00:00 Completed [facility] Varicella (varivax)(chicken pox) 2018-02-12 00:00:00 Completed [facility] Varicella (varivax)(chicken pox) 2018-02-12 00:00:00 Completed [facility] Varicella (varivax)(chicken pox) 2018-02-12 00:00:00 Completed [facility] Varicella (varivax)(chicken pox) 2018-02-12 00:00:00 Completed [facility] Varicella (varivax)(chicken pox) 2018-02-12 00:00:00 Completed [facility] Varicella (varivax)(chicken pox) 2018-02-12 00:00:00 Completed [facility] Varicella (varivax)(chicken pox) 2018-02-12 00:00:00 Completed [facility] Varicella (varivax)(chicken pox) 2018-02-12 00:00:00 Completed [facility] Varicella (varivax)(chicken pox) 2018-02-12 00:00:00 Completed [facility] Varicella (varivax)(chicken pox) 2018-02-12 00:00:00 Completed [facility] Varicella (varivax)(chicken pox) 2018-02-12 00:00:00 Completed [facility] Varicella (varivax)(chicken pox) 2018-02-12 00:00:00 Completed [facility] Varicella (varivax)(chicken pox) 2018-02-12 00:00:00 Completed [facility] Varicella (varivax)(chicken pox) 2018-02-12 00:00:00 Completed [facility] Varicella (varivax)(chicken pox) 2018-02-12 00:00:00 Completed [facility] Varicella (varivax)(chicken pox) 2018-02-12 00:00:00 Completed [facility] Varicella (varivax)(chicken pox) 2018-02-12 00:00:00 Completed [facility] Varicella (varivax)(chicken pox) 2018-02-12 00:00:00 Completed [facility] Varicella (varivax)(chicken pox) 2018-02-12 00:00:00 Completed [facility] Varicella (varivax)(chicken pox) 2018-02-12 00:00:00 Completed [facility] Varicella (varivax)(chicken pox) 2018-02-12 00:00:00 Completed [facility] Varicella (varivax)(chicken pox) 2018-02-12 00:00:00 Completed [facility] Varicella (varivax)(chicken pox) 2018-02-12 00:00:00 Completed [facility] Varicella (varivax)(chicken pox) 2018-02-12 00:00:00 Completed [facility] Varicella (varivax)(chicken pox) 2018-02-12 00:00:00 Completed [facility] Varicella (varivax)(chicken pox) 2018-02-12 00:00:00 Completed [facility] Varicella (varivax)(chicken pox) 2018-02-12 00:00:00 Completed [facility] Varicella (varivax)(chicken pox) 2018-02-12 00:00:00 Completed [facility] Varicella (varivax)(chicken pox) 2018-02-12 00:00:00 Completed [facility] Varicella (varivax)(chicken pox) 2018-02-12 00:00:00 Completed [facility] Varicella (varivax)(chicken pox) 2018-02-12 00:00:00 Completed [facility] Varicella (varivax)(chicken pox) 2018-02-12 00:00:00 Completed [facility] Varicella (varivax)(chicken pox) 2018-02-12 00:00:00 Completed [facility] Varicella (varivax)(chicken pox) 2018-02-12 00:00:00 Completed [facility] Varicella (varivax)(chicken pox) 2018-02-12 00:00:00 Completed [facility] Varicella (varivax)(chicken pox) 2018-02-12 00:00:00 Completed [facility] Varicella (varivax)(chicken pox) 2018-02-12 00:00:00 Completed [facility] Varicella (varivax)(chicken pox) 2018-02-12 00:00:00 Completed [facility] Varicella (varivax)(chicken pox) 2018-02-12 00:00:00 Completed [facility] Varicella (varivax)(chicken pox) 2018-02-12 00:00:00 Completed [facility] Varicella (varivax)(chicken pox) 2018-02-12 00:00:00 Completed [facility] Varicella (varivax)(chicken pox) 2018-02-12 00:00:00 Completed [facility] Varicella (varivax)(chicken pox) 2018-02-12 00:00:00 Completed [facility] Varicella (varivax)(chicken pox) 2018-02-12 00:00:00 Completed [facility] Varicella (varivax)(chicken pox) 2018-02-12 00:00:00 Completed [facility] Varicella (varivax)(chicken pox) 2018-02-12 00:00:00 Completed [facility] Varicella (varivax)(chicken pox) 2018-02-12 00:00:00 Completed [facility] Varicella (varivax)(chicken pox) 2018-02-12 00:00:00 Completed [facility] Varicella (varivax)(chicken pox) 2018-02-12 00:00:00 Completed [facility] Varicella (varivax)(chicken pox) 2018-02-12 00:00:00 Completed [facility] Varicella (varivax)(chicken pox) 2018-02-12 00:00:00 Completed [facility] Varicella (varivax)(chicken pox) 2018-02-12 00:00:00 Completed [facility] Varicella (varivax)(chicken pox) 2018-02-12 00:00:00 Completed [facility] Varicella (varivax)(chicken pox) 2018-02-12 00:00:00 Completed [facility] Varicella (varivax)(chicken pox) 2018-02-12 00:00:00 Completed [facility] Varicella (varivax)(chicken pox) 2018-02-12 00:00:00 Completed [facility] Varicella (varivax)(chicken pox) 2018-02-12 00:00:00 Completed [facility] Varicella (varivax)(chicken pox) 2018-02-12 00:00:00 Completed [facility] Varicella (varivax)(chicken pox) 2018-02-12 00:00:00 Completed [facility] Varicella (varivax)(chicken pox) 2018-02-12 00:00:00 Completed [facility] Varicella (varivax)(chicken pox) 2018-02-12 00:00:00 Completed [facility] Varicella (varivax)(chicken pox) 2018-02-12 00:00:00 Completed [facility] Varicella (varivax)(chicken pox) 2018-02-12 00:00:00 Completed [facility] Varicella (varivax)(chicken pox) 2018-02-12 00:00:00 Completed [facility] Varicella (varivax)(chicken pox) 2018-02-12 00:00:00 Completed [facility] Varicella (varivax)(chicken pox) 2018-02-12 00:00:00 Completed [facility] TDAP 2017-12-17 00:00:00 Completed [facility] TDAP 2017-12-17 00:00:00 Completed [facility] TDAP 2017-12-17 00:00:00 Completed [facility] TDAP 2017-12-17 00:00:00 Completed [facility] TDAP 2017-12-17 00:00:00 Completed [facility] TDAP 2017-12-17 00:00:00 Completed [facility] TDAP 2017-12-17 00:00:00 Completed [facility] TDAP 2017-12-17 00:00:00 Completed [facility] TDAP 2017-12-17 00:00:00 Completed [facility] TDAP 2017-12-17 00:00:00 Completed [facility] TDAP 2017-12-17 00:00:00 Completed [facility] TDAP 2017-12-17 00:00:00 Completed [facility] TDAP 2017-12-17 00:00:00 Completed [facility] TDAP 2017-12-17 00:00:00 Completed [facility] TDAP 2017-12-17 00:00:00 Completed [facility] TDAP 2017-12-17 00:00:00 Completed [facility] TDAP 2017-12-17 00:00:00 Completed [facility] TDAP 2017-12-17 00:00:00 Completed [facility] TDAP 2017-12-17 00:00:00 Completed [facility] TDAP 2017-12-17 00:00:00 Completed [facility] TDAP 2017-12-17 00:00:00 Completed [facility] TDAP 2017-12-17 00:00:00 Completed [facility] TDAP 2017-12-17 00:00:00 Completed [facility] TDAP 2017-12-17 00:00:00 Completed [facility] TDAP 2017-12-17 00:00:00 Completed [facility] TDAP 2017-12-17 00:00:00 Completed [facility] TDAP 2017-12-17 00:00:00 Completed [facility] TDAP 2017-12-17 00:00:00 Completed [facility] TDAP 2017-12-17 00:00:00 Completed [facility] TDAP 2017-12-17 00:00:00 Completed [facility] TDAP 2017-12-17 00:00:00 Completed [facility] TDAP 2017-12-17 00:00:00 Completed [facility] TDAP 2017-12-17 00:00:00 Completed [facility] TDAP 2017-12-17 00:00:00 Completed [facility] TDAP 2017-12-17 00:00:00 Completed [facility] TDAP 2017-12-17 00:00:00 Completed [facility] TDAP 2017-12-17 00:00:00 Completed [facility] TDAP 2017-12-17 00:00:00 Completed [facility] TDAP 2017-12-17 00:00:00 Completed [facility] TDAP 2017-12-17 00:00:00 Completed [facility] TDAP 2017-12-17 00:00:00 Completed [facility] TDAP 2017-12-17 00:00:00 Completed [facility] TDAP 2017-12-17 00:00:00 Completed [facility] TDAP 2017-12-17 00:00:00 Completed [facility] TDAP 2017-12-17 00:00:00 Completed [facility] TDAP 2017-12-17 00:00:00 Completed [facility] TDAP 2017-12-17 00:00:00 Completed [facility] TDAP 2017-12-17 00:00:00 Completed [facility] TDAP 2017-12-17 00:00:00 Completed [facility] TDAP 2017-12-17 00:00:00 Completed [facility] TDAP 2017-12-17 00:00:00 Completed [facility] TDAP 2017-12-17 00:00:00 Completed [facility] TDAP 2017-12-17 00:00:00 Completed [facility] TDAP 2017-12-17 00:00:00 Completed [facility] TDAP 2017-12-17 00:00:00 Completed [facility] TDAP 2017-12-17 00:00:00 Completed [facility] TDAP 2017-12-17 00:00:00 Completed [facility] TDAP 2017-12-17 00:00:00 Completed [facility] TDAP 2017-12-17 00:00:00 Completed [facility] TDAP 2017-12-17 00:00:00 Completed [facility] TDAP 2017-12-17 00:00:00 Completed [facility] TDAP 2017-12-17 00:00:00 Completed [facility] TDAP 2017-12-17 00:00:00 Completed [facility] TDAP 2017-12-17 00:00:00 Completed [facility] TDAP 2017-12-17 00:00:00 Completed [facility] TDAP 2017-12-17 00:00:00 Completed [facility] TDAP 2017-12-17 00:00:00 Completed [facility] TDAP 2017-12-17 00:00:00 Completed [facility] TDAP 2017-12-17 00:00:00 Completed [facility] TDAP 2017-12-17 00:00:00 Completed [facility] TDAP 2017-12-17 00:00:00 Completed [facility] TDAP 2017-12-17 00:00:00 Completed [facility] TDAP 2017-12-17 00:00:00 Completed [facility] TDAP 2017-12-17 00:00:00 Completed [facility] TDAP 2017-12-17 00:00:00 Completed [facility] TDAP 2017-12-17 00:00:00 Completed [facility] TDAP 2017-12-17 00:00:00 Completed [facility] TDAP 2017-12-17 00:00:00 Completed [facility] TDAP 2017-12-17 00:00:00 Completed [facility] TDAP 2017-12-17 00:00:00 Completed [facility] TDAP 2017-12-17 00:00:00 Completed [facility] Varicella (varivax)(chicken pox) 2017-01-03 00:00:00 Completed [facility] Varicella (varivax)(chicken pox) 2017-01-03 00:00:00 Completed [facility] Varicella (varivax)(chicken pox) 2017-01-03 00:00:00 Completed [facility] Varicella (varivax)(chicken pox) 2017-01-03 00:00:00 Completed [facility] Varicella (varivax)(chicken pox) 2017-01-03 00:00:00 Completed [facility] Varicella (varivax)(chicken pox) 2017-01-03 00:00:00 Completed [facility] Varicella (varivax)(chicken pox) 2017-01-03 00:00:00 Completed [facility] Varicella (varivax)(chicken pox) 2017-01-03 00:00:00 Completed [facility] Varicella (varivax)(chicken pox) 2017-01-03 00:00:00 Completed [facility] Varicella (varivax)(chicken pox) 2017-01-03 00:00:00 Completed [facility] Varicella (varivax)(chicken pox) 2017-01-03 00:00:00 Completed [facility] Varicella (varivax)(chicken pox) 2017-01-03 00:00:00 Completed [facility] Varicella (varivax)(chicken pox) 2017-01-03 00:00:00 Completed [facility] Varicella (varivax)(chicken pox) 2017-01-03 00:00:00 Completed [facility] Varicella (varivax)(chicken pox) 2017-01-03 00:00:00 Completed [facility] Varicella (varivax)(chicken pox) 2017-01-03 00:00:00 Completed [facility] Varicella (varivax)(chicken pox) 2017-01-03 00:00:00 Completed [facility] Varicella (varivax)(chicken pox) 2017-01-03 00:00:00 Completed [facility] Varicella (varivax)(chicken pox) 2017-01-03 00:00:00 Completed [facility] Varicella (varivax)(chicken pox) 2017-01-03 00:00:00 Completed [facility] Varicella (varivax)(chicken pox) 2017-01-03 00:00:00 Completed [facility] Varicella (varivax)(chicken pox) 2017-01-03 00:00:00 Completed [facility] Varicella (varivax)(chicken pox) 2017-01-03 00:00:00 Completed [facility] Varicella (varivax)(chicken pox) 2017-01-03 00:00:00 Completed [facility] Varicella (varivax)(chicken pox) 2017-01-03 00:00:00 Completed [facility] Varicella (varivax)(chicken pox) 2017-01-03 00:00:00 Completed [facility] Varicella (varivax)(chicken pox) 2017-01-03 00:00:00 Completed [facility] Varicella (varivax)(chicken pox) 2017-01-03 00:00:00 Completed [facility] Varicella (varivax)(chicken pox) 2017-01-03 00:00:00 Completed [facility] Varicella (varivax)(chicken pox) 2017-01-03 00:00:00 Completed [facility] Varicella (varivax)(chicken pox) 2017-01-03 00:00:00 Completed [facility] Varicella (varivax)(chicken pox) 2017-01-03 00:00:00 Completed [facility] Varicella (varivax)(chicken pox) 2017-01-03 00:00:00 Completed [facility] Varicella (varivax)(chicken pox) 2017-01-03 00:00:00 Completed [facility] Varicella (varivax)(chicken pox) 2017-01-03 00:00:00 Completed [facility] Varicella (varivax)(chicken pox) 2017-01-03 00:00:00 Completed [facility] Varicella (varivax)(chicken pox) 2017-01-03 00:00:00 Completed [facility] Varicella (varivax)(chicken pox) 2017-01-03 00:00:00 Completed [facility] Varicella (varivax)(chicken pox) 2017-01-03 00:00:00 Completed [facility] Varicella (varivax)(chicken pox) 2017-01-03 00:00:00 Completed [facility] Varicella (varivax)(chicken pox) 2017-01-03 00:00:00 Completed [facility] Varicella (varivax)(chicken pox) 2017-01-03 00:00:00 Completed [facility] Varicella (varivax)(chicken pox) 2017-01-03 00:00:00 Completed [facility] Varicella (varivax)(chicken pox) 2017-01-03 00:00:00 Completed [facility] Varicella (varivax)(chicken pox) 2017-01-03 00:00:00 Completed [facility] Varicella (varivax)(chicken pox) 2017-01-03 00:00:00 Completed [facility] Varicella (varivax)(chicken pox) 2017-01-03 00:00:00 Completed [facility] Varicella (varivax)(chicken pox) 2017-01-03 00:00:00 Completed [facility] Varicella (varivax)(chicken pox) 2017-01-03 00:00:00 Completed [facility] Varicella (varivax)(chicken pox) 2017-01-03 00:00:00 Completed [facility] Varicella (varivax)(chicken pox) 2017-01-03 00:00:00 Completed [facility] Varicella (varivax)(chicken pox) 2017-01-03 00:00:00 Completed [facility] Varicella (varivax)(chicken pox) 2017-01-03 00:00:00 Completed [facility] Varicella (varivax)(chicken pox) 2017-01-03 00:00:00 Completed [facility] Varicella (varivax)(chicken pox) 2017-01-03 00:00:00 Completed [facility] Varicella (varivax)(chicken pox) 2017-01-03 00:00:00 Completed [facility] Varicella (varivax)(chicken pox) 2017-01-03 00:00:00 Completed [facility] Varicella (varivax)(chicken pox) 2017-01-03 00:00:00 Completed [facility] Varicella (varivax)(chicken pox) 2017-01-03 00:00:00 Completed [facility] Varicella (varivax)(chicken pox) 2017-01-03 00:00:00 Completed [facility] Varicella (varivax)(chicken pox) 2017-01-03 00:00:00 Completed [facility] Varicella (varivax)(chicken pox) 2017-01-03 00:00:00 Completed [facility] Varicella (varivax)(chicken pox) 2017-01-03 00:00:00 Completed [facility] Varicella (varivax)(chicken pox) 2017-01-03 00:00:00 Completed [facility] Varicella (varivax)(chicken pox) 2017-01-03 00:00:00 Completed [facility] Varicella (varivax)(chicken pox) 2017-01-03 00:00:00 Completed [facility] Varicella (varivax)(chicken pox) 2017-01-03 00:00:00 Completed [facility] Varicella (varivax)(chicken pox) 2017-01-03 00:00:00 Completed [facility] Varicella (varivax)(chicken pox) 2017-01-03 00:00:00 Completed [facility] Varicella (varivax)(chicken pox) 2017-01-03 00:00:00 Completed [facility] Varicella (varivax)(chicken pox) 2017-01-03 00:00:00 Completed [facility] Varicella (varivax)(chicken pox) 2017-01-03 00:00:00 Completed [facility] Varicella (varivax)(chicken pox) 2017-01-03 00:00:00 Completed [facility] Varicella (varivax)(chicken pox) 2017-01-03 00:00:00 Completed [facility] Varicella (varivax)(chicken pox) 2017-01-03 00:00:00 Completed [facility] Varicella (varivax)(chicken pox) 2017-01-03 00:00:00 Completed [facility] Varicella (varivax)(chicken pox) 2017-01-03 00:00:00 Completed [facility] Varicella (varivax)(chicken pox) 2017-01-03 00:00:00 Completed [facility] Varicella (varivax)(chicken pox) 2017-01-03 00:00:00 Completed [facility] Varicella (varivax)(chicken pox) 2017-01-03 00:00:00 Completed [facility] Varicella (varivax)(chicken pox) 2017-01-03 00:00:00 Completed [facility] TDAP 2016-10-03 00:00:00 Completed [facility] TDAP 2016-10-03 00:00:00 Completed [facility] TDAP 2016-10-03 00:00:00 Completed [facility] TDAP 2016-10-03 00:00:00 Completed [facility] TDAP 2016-10-03 00:00:00 Completed [facility] TDAP 2016-10-03 00:00:00 Completed [facility] TDAP 2016-10-03 00:00:00 Completed [facility] TDAP 2016-10-03 00:00:00 Completed [facility] TDAP 2016-10-03 00:00:00 Completed [facility] TDAP 2016-10-03 00:00:00 Completed [facility] TDAP 2016-10-03 00:00:00 Completed [facility] TDAP 2016-10-03 00:00:00 Completed [facility] TDAP 2016-10-03 00:00:00 Completed [facility] TDAP 2016-10-03 00:00:00 Completed [facility] TDAP 2016-10-03 00:00:00 Completed [facility] TDAP 2016-10-03 00:00:00 Completed [facility] TDAP 2016-10-03 00:00:00 Completed [facility] TDAP 2016-10-03 00:00:00 Completed [facility] TDAP 2016-10-03 00:00:00 Completed [facility] TDAP 2016-10-03 00:00:00 Completed [facility] TDAP 2016-10-03 00:00:00 Completed [facility] TDAP 2016-10-03 00:00:00 Completed [facility] TDAP 2016-10-03 00:00:00 Completed [facility] TDAP 2016-10-03 00:00:00 Completed [facility] TDAP 2016-10-03 00:00:00 Completed [facility] TDAP 2016-10-03 00:00:00 Completed [facility] TDAP 2016-10-03 00:00:00 Completed [facility] TDAP 2016-10-03 00:00:00 Completed [facility] TDAP 2016-10-03 00:00:00 Completed [facility] TDAP 2016-10-03 00:00:00 Completed [facility] TDAP 2016-10-03 00:00:00 Completed [facility] TDAP 2016-10-03 00:00:00 Completed [facility] TDAP 2016-10-03 00:00:00 Completed [facility] TDAP 2016-10-03 00:00:00 Completed [facility] TDAP 2016-10-03 00:00:00 Completed [facility] TDAP 2016-10-03 00:00:00 Completed [facility] TDAP 2016-10-03 00:00:00 Completed [facility] TDAP 2016-10-03 00:00:00 Completed [facility] TDAP 2016-10-03 00:00:00 Completed [facility] TDAP 2016-10-03 00:00:00 Completed [facility] TDAP 2016-10-03 00:00:00 Completed [facility] TDAP 2016-10-03 00:00:00 Completed [facility] TDAP 2016-10-03 00:00:00 Completed [facility] TDAP 2016-10-03 00:00:00 Completed [facility] TDAP 2016-10-03 00:00:00 Completed [facility] TDAP 2016-10-03 00:00:00 Completed [facility] TDAP 2016-10-03 00:00:00 Completed [facility] TDAP 2016-10-03 00:00:00 Completed [facility] TDAP 2016-10-03 00:00:00 Completed [facility] TDAP 2016-10-03 00:00:00 Completed [facility] TDAP 2016-10-03 00:00:00 Completed [facility] TDAP 2016-10-03 00:00:00 Completed [facility] TDAP 2016-10-03 00:00:00 Completed [facility] TDAP 2016-10-03 00:00:00 Completed [facility] TDAP 2016-10-03 00:00:00 Completed [facility] TDAP 2016-10-03 00:00:00 Completed [facility] TDAP 2016-10-03 00:00:00 Completed [facility] TDAP 2016-10-03 00:00:00 Completed [facility] TDAP 2016-10-03 00:00:00 Completed [facility] TDAP 2016-10-03 00:00:00 Completed [facility] TDAP 2016-10-03 00:00:00 Completed [facility] TDAP 2016-10-03 00:00:00 Completed [facility] TDAP 2016-10-03 00:00:00 Completed [facility] TDAP 2016-10-03 00:00:00 Completed [facility] TDAP 2016-10-03 00:00:00 Completed [facility] TDAP 2016-10-03 00:00:00 Completed [facility] TDAP 2016-10-03 00:00:00 Completed [facility] TDAP 2016-10-03 00:00:00 Completed [facility] TDAP 2016-10-03 00:00:00 Completed [facility] TDAP 2016-10-03 00:00:00 Completed [facility] TDAP 2016-10-03 00:00:00 Completed [facility] TDAP 2016-10-03 00:00:00 Completed [facility] TDAP 2016-10-03 00:00:00 Completed [facility] TDAP 2016-10-03 00:00:00 Completed [facility] TDAP 2016-10-03 00:00:00 Completed [facility] TDAP 2016-10-03 00:00:00 Completed [facility] TDAP 2016-10-03 00:00:00 Completed [facility] TDAP 2016-10-03 00:00:00 Completed [facility] TDAP 2016-10-03 00:00:00 Completed [facility] TDAP 2016-10-03 00:00:00 Completed [facility] TDAP 2016-10-03 00:00:00 Completed [facility] HPV 2010-07-26 00:00:00 Completed [facility] HPV 2010-07-26 00:00:00 Completed [facility] HPV 2010-07-26 00:00:00 Completed [facility] HPV 2010-07-26 00:00:00 Completed [facility] HPV 2010-07-26 00:00:00 Completed [facility] HPV 2010-07-26 00:00:00 Completed [facility] HPV 2010-07-26 00:00:00 Completed [facility] HPV 2010-07-26 00:00:00 Completed [facility] HPV 2010-07-26 00:00:00 Completed [facility] HPV 2010-07-26 00:00:00 Completed [facility] HPV 2010-07-26 00:00:00 Completed [facility] HPV 2010-07-26 00:00:00 Completed [facility] HPV 2010-07-26 00:00:00 Completed [facility] HPV 2010-07-26 00:00:00 Completed [facility] HPV 2010-07-26 00:00:00 Completed [facility] HPV 2010-07-26 00:00:00 Completed [facility] HPV 2010-07-26 00:00:00 Completed [facility] HPV 2010-07-26 00:00:00 Completed [facility] HPV 2010-07-26 00:00:00 Completed [facility] HPV 2010-07-26 00:00:00 Completed [facility] HPV 2010-07-26 00:00:00 Completed [facility] HPV 2010-07-26 00:00:00 Completed [facility] HPV 2010-07-26 00:00:00 Completed [facility] HPV 2010-07-26 00:00:00 Completed [facility] HPV 2010-07-26 00:00:00 Completed [facility] HPV 2010-07-26 00:00:00 Completed [facility] HPV 2010-07-26 00:00:00 Completed [facility] HPV 2010-07-26 00:00:00 Completed [facility] HPV 2010-07-26 00:00:00 Completed [facility] HPV 2010-07-26 00:00:00 Completed [facility] HPV 2010-07-26 00:00:00 Completed [facility] HPV 2010-07-26 00:00:00 Completed [facility] HPV 2010-07-26 00:00:00 Completed [facility] HPV 2010-07-26 00:00:00 Completed [facility] HPV 2010-07-26 00:00:00 Completed [facility] HPV 2010-07-26 00:00:00 Completed [facility] HPV 2010-07-26 00:00:00 Completed [facility] HPV 2010-07-26 00:00:00 Completed [facility] HPV 2010-07-26 00:00:00 Completed [facility] HPV 2010-07-26 00:00:00 Completed [facility] HPV 2010-07-26 00:00:00 Completed [facility] HPV 2010-07-26 00:00:00 Completed [facility] HPV 2010-07-26 00:00:00 Completed [facility] HPV 2010-07-26 00:00:00 Completed [facility] HPV 2010-07-26 00:00:00 Completed [facility] HPV 2010-07-26 00:00:00 Completed [facility] HPV 2010-07-26 00:00:00 Completed [facility] HPV 2010-07-26 00:00:00 Completed [facility] HPV 2010-07-26 00:00:00 Completed [facility] HPV 2010-07-26 00:00:00 Completed [facility] HPV 2010-07-26 00:00:00 Completed [facility] HPV 2010-07-26 00:00:00 Completed [facility] HPV 2010-07-26 00:00:00 Completed [facility] HPV 2010-07-26 00:00:00 Completed [facility] HPV 2010-07-26 00:00:00 Completed [facility] HPV 2010-07-26 00:00:00 Completed [facility] HPV 2010-07-26 00:00:00 Completed [facility] HPV 2010-07-26 00:00:00 Completed [facility] HPV 2010-07-26 00:00:00 Completed [facility] HPV 2010-07-26 00:00:00 Completed [facility] HPV 2010-07-26 00:00:00 Completed [facility] HPV 2010-07-26 00:00:00 Completed [facility] HPV 2010-07-26 00:00:00 Completed [facility] HPV 2010-07-26 00:00:00 Completed [facility] HPV 2010-07-26 00:00:00 Completed [facility] HPV 2010-07-26 00:00:00 Completed [facility] HPV 2010-07-26 00:00:00 Completed [facility] HPV 2010-07-26 00:00:00 Completed [facility] HPV 2010-07-26 00:00:00 Completed [facility] HPV 2010-07-26 00:00:00 Completed [facility] HPV 2010-07-26 00:00:00 Completed [facility] HPV 2010-07-26 00:00:00 Completed [facility] HPV 2010-07-26 00:00:00 Completed [facility] HPV 2010-07-26 00:00:00 Completed [facility] HPV 2010-07-26 00:00:00 Completed [facility] HPV 2010-07-26 00:00:00 Completed [facility] HPV 2010-07-26 00:00:00 Completed [facility] HPV 2010-07-26 00:00:00 Completed [facility] HPV 2010-07-26 00:00:00 Completed [facility] HPV 2010-07-26 00:00:00 Completed [facility] HPV 2010-07-26 00:00:00 Completed [facility] HPV 2010-06-20 00:00:00 Completed [facility] HPV 2010-06-20 00:00:00 Completed [facility] HPV 2010-06-20 00:00:00 Completed [facility] HPV 2010-06-20 00:00:00 Completed [facility] HPV 2010-06-20 00:00:00 Completed [facility] HPV 2010-06-20 00:00:00 Completed [facility] HPV 2010-06-20 00:00:00 Completed [facility] HPV 2010-06-20 00:00:00 Completed [facility] HPV 2010-06-20 00:00:00 Completed [facility] HPV 2010-06-20 00:00:00 Completed [facility] HPV 2010-06-20 00:00:00 Completed [facility] HPV 2010-06-20 00:00:00 Completed [facility] HPV 2010-06-20 00:00:00 Completed [facility] HPV 2010-06-20 00:00:00 Completed [facility] HPV 2010-06-20 00:00:00 Completed [facility] HPV 2010-06-20 00:00:00 Completed [facility] HPV 2010-06-20 00:00:00 Completed [facility] HPV 2010-06-20 00:00:00 Completed [facility] HPV 2010-06-20 00:00:00 Completed [facility] HPV 2010-06-20 00:00:00 Completed [facility] HPV 2010-06-20 00:00:00 Completed [facility] HPV 2010-06-20 00:00:00 Completed [facility] HPV 2010-06-20 00:00:00 Completed [facility] HPV 2010-06-20 00:00:00 Completed [facility] HPV 2010-06-20 00:00:00 Completed [facility] HPV 2010-06-20 00:00:00 Completed [facility] HPV 2010-06-20 00:00:00 Completed [facility] HPV 2010-06-20 00:00:00 Completed [facility] HPV 2010-06-20 00:00:00 Completed [facility] HPV 2010-06-20 00:00:00 Completed [facility] HPV 2010-06-20 00:00:00 Completed [facility] HPV 2010-06-20 00:00:00 Completed [facility] HPV 2010-06-20 00:00:00 Completed [facility] HPV 2010-06-20 00:00:00 Completed [facility] HPV 2010-06-20 00:00:00 Completed [facility] HPV 2010-06-20 00:00:00 Completed [facility] HPV 2010-06-20 00:00:00 Completed [facility] HPV 2010-06-20 00:00:00 Completed [facility] HPV 2010-06-20 00:00:00 Completed [facility] HPV 2010-06-20 00:00:00 Completed [facility] HPV 2010-06-20 00:00:00 Completed [facility] HPV 2010-06-20 00:00:00 Completed [facility] HPV 2010-06-20 00:00:00 Completed [facility] HPV 2010-06-20 00:00:00 Completed [facility] HPV 2010-06-20 00:00:00 Completed [facility] HPV 2010-06-20 00:00:00 Completed [facility] HPV 2010-06-20 00:00:00 Completed [facility] HPV 2010-06-20 00:00:00 Completed [facility] HPV 2010-06-20 00:00:00 Completed [facility] HPV 2010-06-20 00:00:00 Completed [facility] HPV 2010-06-20 00:00:00 Completed [facility] HPV 2010-06-20 00:00:00 Completed [facility] HPV 2010-06-20 00:00:00 Completed [facility] HPV 2010-06-20 00:00:00 Completed [facility] HPV 2010-06-20 00:00:00 Completed [facility] HPV 2010-06-20 00:00:00 Completed [facility] HPV 2010-06-20 00:00:00 Completed [facility] HPV 2010-06-20 00:00:00 Completed [facility] HPV 2010-06-20 00:00:00 Completed [facility] HPV 2010-06-20 00:00:00 Completed [facility] HPV 2010-06-20 00:00:00 Completed [facility] HPV 2010-06-20 00:00:00 Completed [facility] HPV 2010-06-20 00:00:00 Completed [facility] HPV 2010-06-20 00:00:00 Completed [facility] HPV 2010-06-20 00:00:00 Completed [facility] HPV 2010-06-20 00:00:00 Completed [facility] HPV 2010-06-20 00:00:00 Completed [facility] HPV 2010-06-20 00:00:00 Completed [facility] HPV 2010-06-20 00:00:00 Completed [facility] HPV 2010-06-20 00:00:00 Completed [facility] HPV 2010-06-20 00:00:00 Completed [facility] HPV 2010-06-20 00:00:00 Completed [facility] HPV 2010-06-20 00:00:00 Completed [facility] HPV 2010-06-20 00:00:00 Completed [facility] HPV 2010-06-20 00:00:00 Completed [facility] Varicella (varivax)(chicken pox) 2010-06-20 00:00:00 Completed [facility] TDAP 2010-06-20 00:00:00 Completed [facility] Meningococcal Polysaccharide (groups A, C, Y and W-135) conjugate vaccine (MCV4P) 2010-06-20 00:00:00 Completed [facility] DTaP, Unspecified Formulation 2010-06-20 00:00:00 Completed [facility] HPV 2010-06-20 00:00:00 Completed [facility] Varicella (varivax)(chicken pox) 2010-06-20 00:00:00 Completed [facility] TDAP 2010-06-20 00:00:00 Completed [facility] Meningococcal Polysaccharide (groups A, C, Y and W-135) conjugate vaccine (MCV4P) 2010-06-20 00:00:00 Completed [facility] DTaP, Unspecified Formulation 2010-06-20 00:00:00 Completed [facility] HPV 2010-06-20 00:00:00 Completed [facility] Varicella (varivax)(chicken pox) 2010-06-20 00:00:00 Completed [facility] TDAP 2010-06-20 00:00:00 Completed [facility] Meningococcal Polysaccharide (groups A, C, Y and W-135) conjugate vaccine (MCV4P) 2010-06-20 00:00:00 Completed [facility] DTaP, Unspecified Formulation 2010-06-20 00:00:00 Completed [facility] HPV 2010-06-20 00:00:00 Completed [facility] Varicella (varivax)(chicken pox) 2010-06-20 00:00:00 Completed [facility] TDAP 2010-06-20 00:00:00 Completed [facility] Meningococcal Polysaccharide (groups A, C, Y and W-135) conjugate vaccine (MCV4P) 2010-06-20 00:00:00 Completed [facility] DTaP, Unspecified Formulation 2010-06-20 00:00:00 Completed [facility] HPV 2010-06-20 00:00:00 Completed [facility] Varicella (varivax)(chicken pox) 2010-06-20 00:00:00 Completed [facility] TDAP 2010-06-20 00:00:00 Completed [facility] Meningococcal Polysaccharide (groups A, C, Y and W-135) conjugate vaccine (MCV4P) 2010-06-20 00:00:00 Completed [facility] DTaP, Unspecified Formulation 2010-06-20 00:00:00 Completed [facility] HPV 2010-06-20 00:00:00 Completed [facility] Varicella (varivax)(chicken pox) 2010-06-20 00:00:00 Completed [facility] TDAP 2010-06-20 00:00:00 Completed [facility] Meningococcal Polysaccharide (groups A, C, Y and W-135) conjugate vaccine (MCV4P) 2010-06-20 00:00:00 Completed [facility] DTaP, Unspecified Formulation 2010-06-20 00:00:00 Completed [facility] HPV 2010-06-20 00:00:00 Completed [facility] Varicella (varivax)(chicken pox) 2010-06-20 00:00:00 Completed [facility] TDAP 2010-06-20 00:00:00 Completed [facility] Meningococcal Polysaccharide (groups A, C, Y and W-135) conjugate vaccine (MCV4P) 2010-06-20 00:00:00 Completed [facility] DTaP, Unspecified Formulation 2010-06-20 00:00:00 Completed [facility] IPV 2001-05-21 00:00:00 Completed [facility] MMR 2001-05-21 00:00:00 Completed [facility] HIB 4 Dose Schedule 2001-05-21 00:00:00 Completed [facility] DTaP, Unspecified Formulation 2001-05-21 00:00:00 Completed [facility] IPV 2001-05-21 00:00:00 Completed [facility] MMR 2001-05-21 00:00:00 Completed [facility] HIB 4 Dose Schedule 2001-05-21 00:00:00 Completed [facility] DTaP, Unspecified Formulation 2001-05-21 00:00:00 Completed [facility] IPV 2001-05-21 00:00:00 Completed [facility] MMR 2001-05-21 00:00:00 Completed [facility] HIB 4 Dose Schedule 2001-05-21 00:00:00 Completed [facility] DTaP, Unspecified Formulation 2001-05-21 00:00:00 Completed [facility] IPV 2001-05-21 00:00:00 Completed [facility] MMR 2001-05-21 00:00:00 Completed [facility] HIB 4 Dose Schedule 2001-05-21 00:00:00 Completed [facility] DTaP, Unspecified Formulation 2001-05-21 00:00:00 Completed [facility] IPV 2001-05-21 00:00:00 Completed [facility] MMR 2001-05-21 00:00:00 Completed [facility] HIB 4 Dose Schedule 2001-05-21 00:00:00 Completed [facility] DTaP, Unspecified Formulation 2001-05-21 00:00:00 Completed [facility] IPV 2001-05-21 00:00:00 Completed [facility] MMR 2001-05-21 00:00:00 Completed [facility] HIB 4 Dose Schedule 2001-05-21 00:00:00 Completed [facility] DTaP, Unspecified Formulation 2001-05-21 00:00:00 Completed [facility] IPV 2001-05-21 00:00:00 Completed [facility] MMR 2001-05-21 00:00:00 Completed [facility] HIB 4 Dose Schedule 2001-05-21 00:00:00 Completed [facility] DTaP, Unspecified Formulation 2001-05-21 00:00:00 Completed [facility] Varicella (varivax)(chicken pox) 1999-06-10 00:00:00 Completed [facility] Varicella (varivax)(chicken pox) 1999-06-10 00:00:00 Completed [facility] Varicella (varivax)(chicken pox) 1999-06-10 00:00:00 Completed [facility] Varicella (varivax)(chicken pox) 1999-06-10 00:00:00 Completed [facility] Varicella (varivax)(chicken pox) 1999-06-10 00:00:00 Completed [facility] Varicella (varivax)(chicken pox) 1999-06-10 00:00:00 Completed [facility] Varicella (varivax)(chicken pox) 1999-06-10 00:00:00 Completed [facility] MMR 1999-06-09 00:00:00 Completed [facility] MMR 1999-06-09 00:00:00 Completed [facility] MMR 1999-06-09 00:00:00 Completed [facility] MMR 1999-06-09 00:00:00 Completed [facility] MMR 1999-06-09 00:00:00 Completed [facility] MMR 1999-06-09 00:00:00 Completed [facility] MMR 1999-06-09 00:00:00 Completed [facility] Pneumococcal 7 Conjugate, PCV7 (Prevnar7) 1999-06-05 00:00:00 Completed [facility] HIB 4 Dose Schedule 1999-06-05 00:00:00 Completed [facility] Hep B, Adol or Pedi Dosage 1999-06-05 00:00:00 Completed [facility] DTaP, Unspecified Formulation 1999-06-05 00:00:00 Completed [facility] Pneumococcal 7 Conjugate, PCV7 (Prevnar7) 1999-06-05 00:00:00 Completed [facility] HIB 4 Dose Schedule 1999-06-05 00:00:00 Completed [facility] Hep B, Adol or Pedi Dosage 1999-06-05 00:00:00 Completed [facility] DTaP, Unspecified Formulation 1999-06-05 00:00:00 Completed [facility] Pneumococcal 7 Conjugate, PCV7 (Prevnar7) 1999-06-05 00:00:00 Completed [facility] HIB 4 Dose Schedule 1999-06-05 00:00:00 Completed [facility] Hep B, Adol or Pedi Dosage 1999-06-05 00:00:00 Completed [facility] DTaP, Unspecified Formulation 1999-06-05 00:00:00 Completed [facility] Pneumococcal 7 Conjugate, PCV7 (Prevnar7) 1999-06-05 00:00:00 Completed [facility] HIB 4 Dose Schedule 1999-06-05 00:00:00 Completed [facility] Hep B, Adol or Pedi Dosage 1999-06-05 00:00:00 Completed [facility] DTaP, Unspecified Formulation 1999-06-05 00:00:00 Completed [facility] Pneumococcal 7 Conjugate, PCV7 (Prevnar7) 1999-06-05 00:00:00 Completed [facility] HIB 4 Dose Schedule 1999-06-05 00:00:00 Completed [facility] Hep B, Adol or Pedi Dosage 1999-06-05 00:00:00 Completed [facility] DTaP, Unspecified Formulation 1999-06-05 00:00:00 Completed [facility] Pneumococcal 7 Conjugate, PCV7 (Prevnar7) 1999-06-05 00:00:00 Completed [facility] HIB 4 Dose Schedule 1999-06-05 00:00:00 Completed [facility] Hep B, Adol or Pedi Dosage 1999-06-05 00:00:00 Completed [facility] DTaP, Unspecified Formulation 1999-06-05 00:00:00 Completed [facility] Pneumococcal 7 Conjugate, PCV7 (Prevnar7) 1999-06-05 00:00:00 Completed [facility] HIB 4 Dose Schedule 1999-06-05 00:00:00 Completed [facility] Hep B, Adol or Pedi Dosage 1999-06-05 00:00:00 Completed [facility] DTaP, Unspecified Formulation 1999-06-05 00:00:00 Completed [facility] IPV 1997 00:00:00 Completed [facility] IPV 1997 00:00:00 Completed [facility] IPV 1997 00:00:00 Completed [facility] IPV 1997 00:00:00 Completed [facility] IPV 1997 00:00:00 Completed [facility] IPV 1997 00:00:00 Completed [facility] IPV 1997 00:00:00 Completed [facility] Pneumococcal 7 Conjugate, PCV7 (Prevnar7) 1997 00:00:00 Completed [facility] DTaP, Unspecified Formulation 1997 00:00:00 Completed [facility] Pneumococcal 7 Conjugate, PCV7 (Prevnar7) 1997 00:00:00 Completed [facility] DTaP, Unspecified Formulation 1997 00:00:00 Completed [facility] Pneumococcal 7 Conjugate, PCV7 (Prevnar7) 1997 00:00:00 Completed [facility] DTaP, Unspecified Formulation 1997 00:00:00 Completed [facility] Pneumococcal 7 Conjugate, PCV7 (Prevnar7) 1997 00:00:00 Completed [facility] DTaP, Unspecified Formulation 1997 00:00:00 Completed [facility] Pneumococcal 7 Conjugate, PCV7 (Prevnar7) 1997 00:00:00 Completed [facility] DTaP, Unspecified Formulation 1997 00:00:00 Completed [facility] Pneumococcal 7 Conjugate, PCV7 (Prevnar7) 1997 00:00:00 Completed [facility] DTaP, Unspecified Formulation 1997 00:00:00 Completed [facility] Pneumococcal 7 Conjugate, PCV7 (Prevnar7) 1997 00:00:00 Completed [facility] DTaP, Unspecified Formulation 1997 00:00:00 Completed [facility] IPV 1997 00:00:00 Completed [facility] Pneumococcal 7 Conjugate, PCV7 (Prevnar7) 1997 00:00:00 Completed [facility] HIB 4 Dose Schedule 1997 00:00:00 Completed [facility] Hep B, Adol or Pedi Dosage 1997 00:00:00 Completed [facility] DTaP, Unspecified Formulation 1997 00:00:00 Completed [facility] IPV 1997 00:00:00 Completed [facility] Pneumococcal 7 Conjugate, PCV7 (Prevnar7) 1997 00:00:00 Completed [facility] HIB 4 Dose Schedule 1997 00:00:00 Completed [facility] Hep B, Adol or Pedi Dosage 1997 00:00:00 Completed [facility] DTaP, Unspecified Formulation 1997 00:00:00 Completed [facility] IPV 1997 00:00:00 Completed [facility] Pneumococcal 7 Conjugate, PCV7 (Prevnar7) 1997 00:00:00 Completed [facility] HIB 4 Dose Schedule 1997 00:00:00 Completed [facility] Hep B, Adol or Pedi Dosage 1997 00:00:00 Completed [facility] DTaP, Unspecified Formulation 1997 00:00:00 Completed [facility] IPV 1997 00:00:00 Completed [facility] Pneumococcal 7 Conjugate, PCV7 (Prevnar7) 1997 00:00:00 Completed [facility] HIB 4 Dose Schedule 1997 00:00:00 Completed [facility] Hep B, Adol or Pedi Dosage 1997 00:00:00 Completed [facility] DTaP, Unspecified Formulation 1997 00:00:00 Completed [facility] IPV 1997 00:00:00 Completed [facility] Pneumococcal 7 Conjugate, PCV7 (Prevnar7) 1997 00:00:00 Completed [facility] HIB 4 Dose Schedule 1997 00:00:00 Completed [facility] Hep B, Adol or Pedi Dosage 1997 00:00:00 Completed [facility] DTaP, Unspecified Formulation 1997 00:00:00 Completed [facility] IPV 1997 00:00:00 Completed [facility] Pneumococcal 7 Conjugate, PCV7 (Prevnar7) 1997 00:00:00 Completed [facility] HIB 4 Dose Schedule 1997 00:00:00 Completed [facility] Hep B, Adol or Pedi Dosage 1997 00:00:00 Completed [facility] DTaP, Unspecified Formulation 1997 00:00:00 Completed [facility] IPV 1997 00:00:00 Completed [facility] Pneumococcal 7 Conjugate, PCV7 (Prevnar7) 1997 00:00:00 Completed [facility] HIB 4 Dose Schedule 1997 00:00:00 Completed [facility] Hep B, Adol or Pedi Dosage 1997 00:00:00 Completed [facility] DTaP, Unspecified Formulation 1997 00:00:00 Completed [facility] IPV 1997 00:00:00 Completed [facility] IPV 1997 00:00:00 Completed [facility] IPV 1997 00:00:00 Completed [facility] IPV 1997 00:00:00 Completed [facility] IPV 1997 00:00:00 Completed [facility] IPV 1997 00:00:00 Completed [facility] IPV 1997 00:00:00 Completed [facility] Pneumococcal 7 Conjugate, PCV7 (Prevnar7) 1997 00:00:00 Completed [facility] HIB 4 Dose Schedule 1997 00:00:00 Completed [facility] Hep B, Adol or Pedi Dosage 1997 00:00:00 Completed [facility] DTaP, Unspecified Formulation 1997 00:00:00 Completed [facility] Pneumococcal 7 Conjugate, PCV7 (Prevnar7) 1997 00:00:00 Completed [facility] HIB 4 Dose Schedule 1997 00:00:00 Completed [facility] Hep B, Adol or Pedi Dosage 1997 00:00:00 Completed [facility] DTaP, Unspecified Formulation 1997 00:00:00 Completed [facility] Pneumococcal 7 Conjugate, PCV7 (Prevnar7) 1997 00:00:00 Completed [facility] HIB 4 Dose Schedule 1997 00:00:00 Completed [facility] Hep B, Adol or Pedi Dosage 1997 00:00:00 Completed [facility] DTaP, Unspecified Formulation 1997 00:00:00 Completed [facility] Pneumococcal 7 Conjugate, PCV7 (Prevnar7) 1997 00:00:00 Completed [facility] HIB 4 Dose Schedule 1997 00:00:00 Completed [facility] Hep B, Adol or Pedi Dosage 1997 00:00:00 Completed [facility] DTaP, Unspecified Formulation 1997 00:00:00 Completed [facility] Pneumococcal 7 Conjugate, PCV7 (Prevnar7) 1997 00:00:00 Completed [facility] HIB 4 Dose Schedule 1997 00:00:00 Completed [facility] Hep B, Adol or Pedi Dosage 1997 00:00:00 Completed [facility] DTaP, Unspecified Formulation 1997 00:00:00 Completed [facility] Pneumococcal 7 Conjugate, PCV7 (Prevnar7) 1997 00:00:00 Completed [facility] HIB 4 Dose Schedule 1997 00:00:00 Completed [facility] Hep B, Adol or Pedi Dosage 1997 00:00:00 Completed [facility] DTaP, Unspecified Formulation 1997 00:00:00 Completed [facility] Pneumococcal 7 Conjugate, PCV7 (Prevnar7) 1997 00:00:00 Completed [facility] HIB 4 Dose Schedule 1997 00:00:00 Completed [facility] Hep B, Adol or Pedi Dosage 1997 00:00:00 Completed [facility] DTaP, Unspecified Formulation 1997 00:00:00 Completed [facility] TDAP Unknown Completed [facility] Varicella (varivax)(chicken pox) Unknown Completed [facility] TDAP Unknown Completed [facility] Varicella (varivax)(chicken pox) Unknown Completed [facility] Influenza Virus Vaccine Quad .5 mL IM 6+ MO (FLUZONE/FLULAVAL/FL UARIX) Unknown Completed [facility] TDAP (ADACEL) VACCINE Unknown Completed [facility] HPV Unknown Completed [facility] HPV Unknown Completed [facility] Influenza Virus Vaccine Quad IM, Preserv and ABX Free 6 MO-64 YRS (FLUCELVAX) Unknown Completed [facility] Influenza Virus Vaccine Quad IM, Preserv and ABX Free 6 MO-64 YRS (FLUCELVAX) Unknown Completed [facility] TDAP Unknown Completed [facility] Varicella (varivax)(chicken pox) Unknown Completed [facility] Varicella (varivax)(chicken pox) Unknown Completed [facility] TDAP Unknown Completed [facility] IPV Unknown Completed [facility] IPV Unknown Completed [facility] IPV Unknown Completed [facility] IPV Unknown Completed [facility] Pneumococcal 7 Conjugate, PCV7 (Prevnar7) Unknown Completed [facility] Pneumococcal 7 Conjugate, PCV7 (Prevnar7) Unknown Completed [facility] Pneumococcal 7 Conjugate, PCV7 (Prevnar7) Unknown Completed [facility] Pneumococcal 7 Conjugate, PCV7 (Prevnar7) Unknown Completed [facility] MMR Unknown Completed [facility] MMR Unknown Completed [facility] Meningococcal Polysaccharide (groups A, C, Y and W-135) conjugate vaccine (MCV4P) Unknown Completed [facility] HIB 4 Dose Schedule Unknown Completed [facility] HIB 4 Dose Schedule Unknown Completed [facility] HIB 4 Dose Schedule Unknown Completed [facility] HIB 4 Dose Schedule Unknown Completed [facility] Hep B, Adol or Pedi Dosage Unknown Completed [facility] Hep B, Adol or Pedi Dosage Unknown Completed [facility] Hep B, Adol or Pedi Dosage Unknown Completed [facility] DTaP, Unspecified Formulation Unknown Completed [facility] DTaP, Unspecified Formulation Unknown Completed [facility] DTaP, Unspecified Formulation Unknown Completed [facility] DTaP, Unspecified Formulation Unknown Completed [facility] DTaP, Unspecified Formulation Unknown Completed [facility] DTaP, Unspecified Formulation Unknown Completed [facility] TDAP Unknown Completed [facility] Varicella (varivax)(chicken pox) Unknown Completed [facility] TDAP Unknown Completed [facility] Varicella (varivax)(chicken pox) Unknown Completed [facility] Influenza Virus Vaccine Quad .5 mL IM 6+ MO (FLUZONE/FLULAVAL/FL UARIX) Unknown Completed [facility] TDAP (ADACEL) VACCINE Unknown Completed [facility] HPV Unknown Completed [facility] HPV Unknown Completed [facility] Influenza Virus Vaccine Quad IM, Preserv and ABX Free 6 MO-64 YRS (FLUCELVAX) Unknown Completed [facility] Varicella (varivax)(chicken pox) Unknown Completed [facility] Varicella (varivax)(chicken pox) Unknown Completed [facility] TDAP Unknown Completed [facility] IPV Unknown Completed [facility] IPV Unknown Completed [facility] IPV Unknown Completed [facility] IPV Unknown Completed [facility] Pneumococcal 7 Conjugate, PCV7 (Prevnar7) Unknown Completed [facility] Pneumococcal 7 Conjugate, PCV7 (Prevnar7) Unknown Completed [facility] Pneumococcal 7 Conjugate, PCV7 (Prevnar7) Unknown Completed [facility] Pneumococcal 7 Conjugate, PCV7 (Prevnar7) Unknown Completed [facility] MMR Unknown Completed [facility] MMR Unknown Completed [facility] Meningococcal Polysaccharide (groups A, C, Y and W-135) conjugate vaccine (MCV4P) Unknown Completed [facility] HIB 4 Dose Schedule Unknown Completed [facility] HIB 4 Dose Schedule Unknown Completed [facility] HIB 4 Dose Schedule Unknown Completed [facility] HIB 4 Dose Schedule Unknown Completed [facility] Hep B, Adol or Pedi Dosage Unknown Completed [facility] Hep B, Adol or Pedi Dosage Unknown Completed [facility] Hep B, Adol or Pedi Dosage Unknown Completed [facility] DTaP, Unspecified Formulation Unknown Completed [facility] DTaP, Unspecified Formulation Unknown Completed [facility] DTaP, Unspecified Formulation Unknown Completed [facility] DTaP, Unspecified Formulation Unknown Completed [facility] DTaP, Unspecified Formulation Unknown Completed [facility] DTaP, Unspecified Formulation Unknown Completed [facility] TDAP Unknown Completed [facility] Varicella (varivax)(chicken pox) Unknown Completed [facility] TDAP Unknown Completed [facility] Varicella (varivax)(chicken pox) Unknown Completed [facility] Influenza Virus Vaccine Quad .5 mL IM 6+ MO (FLUZONE/FLULAVAL/FL UARIX) Unknown Completed [facility] TDAP (ADACEL) VACCINE Unknown Completed [facility] HPV Unknown Completed [facility] HPV Unknown Completed [facility] Influenza Virus Vaccine Quad IM, Preserv and ABX Free 6 MO-64 YRS (FLUCELVAX) Unknown Completed [facility] Varicella (varivax)(chicken pox) Unknown Completed [facility] Varicella (varivax)(chicken pox) Unknown Completed [facility] TDAP Unknown Completed [facility] IPV Unknown Completed [facility] IPV Unknown Completed [facility] IPV Unknown Completed [facility] IPV Unknown Completed [facility] Pneumococcal 7 Conjugate, PCV7 (Prevnar7) Unknown Completed [facility] Pneumococcal 7 Conjugate, PCV7 (Prevnar7) Unknown Completed [facility] Pneumococcal 7 Conjugate, PCV7 (Prevnar7) Unknown Completed [facility] Pneumococcal 7 Conjugate, PCV7 (Prevnar7) Unknown Completed [facility] MMR Unknown Completed [facility] MMR Unknown Completed [facility] Meningococcal Polysaccharide (groups A, C, Y and W-135) conjugate vaccine (MCV4P) Unknown Completed [facility] HIB 4 Dose Schedule Unknown Completed [facility] HIB 4 Dose Schedule Unknown Completed [facility] HIB 4 Dose Schedule Unknown Completed [facility] HIB 4 Dose Schedule Unknown Completed [facility] Hep B, Adol or Pedi Dosage Unknown Completed [facility] Hep B, Adol or Pedi Dosage Unknown Completed [facility] Hep B, Adol or Pedi Dosage Unknown Completed [facility] DTaP, Unspecified Formulation Unknown Completed [facility] DTaP, Unspecified Formulation Unknown Completed [facility] DTaP, Unspecified Formulation Unknown Completed [facility] DTaP, Unspecified Formulation Unknown Completed [facility] DTaP, Unspecified Formulation Unknown Completed [facility] DTaP, Unspecified Formulation Unknown Completed [facility] TDAP Unknown Completed [facility] Varicella (varivax)(chicken pox) Unknown Completed [facility] TDAP Unknown Completed [facility] Varicella (varivax)(chicken pox) Unknown Completed [facility] Influenza Virus Vaccine Quad .5 mL IM 6+ MO (FLUZONE/FLULAVAL/FL UARIX) Unknown Completed [facility] TDAP (ADACEL) VACCINE Unknown Completed [facility] HPV Unknown Completed [facility] HPV Unknown Completed [facility] Varicella (varivax)(chicken pox) Unknown Completed [facility] Varicella (varivax)(chicken pox) Unknown Completed [facility] TDAP Unknown Completed [facility] IPV Unknown Completed [facility] IPV Unknown Completed [facility] IPV Unknown Completed [facility] IPV Unknown Completed [facility] Pneumococcal 7 Conjugate, PCV7 (Prevnar7) Unknown Completed [facility] Pneumococcal 7 Conjugate, PCV7 (Prevnar7) Unknown Completed [facility] Pneumococcal 7 Conjugate, PCV7 (Prevnar7) Unknown Completed [facility] Pneumococcal 7 Conjugate, PCV7 (Prevnar7) Unknown Completed [facility] MMR Unknown Completed [facility] MMR Unknown Completed [facility] Meningococcal Polysaccharide (groups A, C, Y and W-135) conjugate vaccine (MCV4P) Unknown Completed [facility] HIB 4 Dose Schedule Unknown Completed [facility] HIB 4 Dose Schedule Unknown Completed [facility] HIB 4 Dose Schedule Unknown Completed [facility] HIB 4 Dose Schedule Unknown Completed [facility] Hep B, Adol or Pedi Dosage Unknown Completed [facility] Hep B, Adol or Pedi Dosage Unknown Completed [facility] Hep B, Adol or Pedi Dosage Unknown Completed [facility] DTaP, Unspecified Formulation Unknown Completed [facility] DTaP, Unspecified Formulation Unknown Completed [facility] DTaP, Unspecified Formulation Unknown Completed [facility] DTaP, Unspecified Formulation Unknown Completed [facility] DTaP, Unspecified Formulation Unknown Completed [facility] DTaP, Unspecified Formulation Unknown Completed [facility] TDAP Unknown Completed [facility] Varicella (varivax)(chicken pox) Unknown Completed [facility] TDAP Unknown Completed [facility] Varicella (varivax)(chicken pox) Unknown Completed [facility] Influenza Virus Vaccine Quad .5 mL IM 6+ MO (FLUZONE/FLULAVAL/FL UARIX) Unknown Completed [facility] TDAP (ADACEL) VACCINE Unknown Completed [facility] HPV Unknown Completed [facility] HPV Unknown Completed [facility] Varicella (varivax)(chicken pox) Unknown Completed [facility] Varicella (varivax)(chicken pox) Unknown Completed [facility] TDAP Unknown Completed [facility] IPV Unknown Completed [facility] IPV Unknown Completed [facility] IPV Unknown Completed [facility] IPV Unknown Completed [facility] Pneumococcal 7 Conjugate, PCV7 (Prevnar7) Unknown Completed [facility] Pneumococcal 7 Conjugate, PCV7 (Prevnar7) Unknown Completed [facility] Pneumococcal 7 Conjugate, PCV7 (Prevnar7) Unknown Completed [facility] Pneumococcal 7 Conjugate, PCV7 (Prevnar7) Unknown Completed [facility] MMR Unknown Completed [facility] MMR Unknown Completed [facility] Meningococcal Polysaccharide (groups A, C, Y and W-135) conjugate vaccine (MCV4P) Unknown Completed [facility] HIB 4 Dose Schedule Unknown Completed [facility] HIB 4 Dose Schedule Unknown Completed [facility] HIB 4 Dose Schedule Unknown Completed [facility] HIB 4 Dose Schedule Unknown Completed [facility] Hep B, Adol or Pedi Dosage Unknown Completed [facility] Hep B, Adol or Pedi Dosage Unknown Completed [facility] Hep B, Adol or Pedi Dosage Unknown Completed [facility] DTaP, Unspecified Formulation Unknown Completed [facility] DTaP, Unspecified Formulation Unknown Completed [facility] DTaP, Unspecified Formulation Unknown Completed [facility] DTaP, Unspecified Formulation Unknown Completed [facility] DTaP, Unspecified Formulation Unknown Completed [facility] DTaP, Unspecified Formulation Unknown Completed [facility] TDAP Unknown Completed [facility] Varicella (varivax)(chicken pox) Unknown Completed [facility] TDAP Unknown Completed [facility] Varicella (varivax)(chicken pox) Unknown Completed [facility] Influenza Virus Vaccine Quad .5 mL IM 6+ MO (FLUZONE/FLULAVAL/FL UARIX) Unknown Completed [facility] TDAP (ADACEL) VACCINE Unknown Completed [facility] HPV Unknown Completed [facility] HPV Unknown Completed [facility] Varicella (varivax)(chicken pox) Unknown Completed [facility] Varicella (varivax)(chicken pox) Unknown Completed [facility] TDAP Unknown [facility] [facility] Completed [facility] IPV Unknown Completed [facility] IPV Unknown Completed [facility] IPV Unknown Completed [facility] Pneumococcal 7 Conjugate, PCV7 (Prevnar7) Unknown Completed [facility] Pneumococcal 7 Conjugate, PCV7 (Prevnar7) Unknown Completed [facility] Pneumococcal 7 Conjugate, PCV7 (Prevnar7) Unknown Completed [facility] Pneumococcal 7 Conjugate, PCV7 (Prevnar7) Unknown Completed [facility] MMR Unknown Completed [facility] MMR Unknown Completed [facility] Meningococcal Polysaccharide (groups A, C, Y and W-135) conjugate vaccine (MCV4P) Unknown Completed [facility] HIB 4 Dose Schedule Unknown Completed [facility] HIB 4 Dose Schedule Unknown Completed [facility] HIB 4 Dose Schedule Unknown Completed [facility] HIB 4 Dose Schedule Unknown Completed [facility] Hep B, Adol or Pedi Dosage Unknown Completed [facility] Hep B, Adol or Pedi Dosage Unknown Completed [facility] Hep B, Adol or Pedi Dosage Unknown Completed [facility] DTaP, Unspecified Formulation Unknown Completed [facility] DTaP, Unspecified Formulation Unknown Completed [facility] DTaP, Unspecified Formulation Unknown Completed [facility] DTaP, Unspecified Formulation Unknown Completed [facility] DTaP, Unspecified Formulation Unknown Completed [facility] DTaP, Unspecified Formulation Unknown Completed [facility] TDAP Unknown Completed [facility] Varicella (varivax)(chicken pox) Unknown Completed [facility] TDAP Unknown Completed [facility] Varicella (varivax)(chicken pox) Unknown Completed [facility] Influenza Virus Vaccine Quad .5 mL IM 6+ MO (FLUZONE/FLULAVAL/FL UARIX) Unknown Completed [facility] TDAP (ADACEL) VACCINE Unknown Completed [facility] HPV Unknown Completed [facility] HPV Unknown Completed [facility] Varicella (varivax)(chicken pox) Unknown Completed [facility] Varicella (varivax)(chicken pox) Unknown Completed [facility] TDAP Unknown Completed [facility] IPV Unknown Completed [facility] IPV Unknown Completed [facility] IPV Unknown Completed [facility] IPV Unknown Completed [facility] Pneumococcal 7 Conjugate, PCV7 (Prevnar7) Unknown Completed [facility] Pneumococcal 7 Conjugate, PCV7 (Prevnar7) Unknown Completed [facility] Pneumococcal 7 Conjugate, PCV7 (Prevnar7) Unknown Completed [facility] Pneumococcal 7 Conjugate, PCV7 (Prevnar7) Unknown Completed [facility] MMR Unknown Completed [facility] MMR Unknown Completed [facility] Meningococcal Polysaccharide (groups A, C, Y and W-135) conjugate vaccine (MCV4P) Unknown Completed [facility] HIB 4 Dose Schedule Unknown Completed [facility] HIB 4 Dose Schedule Unknown Completed [facility] HIB 4 Dose Schedule Unknown Completed [facility] HIB 4 Dose Schedule Unknown Completed [facility] Hep B, Adol or Pedi Dosage Unknown Completed [facility] Hep B, Adol or Pedi Dosage Unknown Completed [facility] Hep B, Adol or Pedi Dosage Unknown Completed [facility] DTaP, Unspecified Formulation Unknown Completed [facility] DTaP, Unspecified Formulation Unknown Completed [facility] DTaP, Unspecified Formulation Unknown Completed [facility] DTaP, Unspecified Formulation Unknown Completed [facility] DTaP, Unspecified Formulation Unknown Completed [facility] DTaP, Unspecified Formulation Unknown Completed [facility] TDAP Unknown Completed [facility] Varicella (varivax)(chicken pox) Unknown Completed [facility] TDAP Unknown Completed [facility] Varicella (varivax)(chicken pox) Unknown Completed [facility] Influenza Virus Vaccine Quad .5 mL IM 6+ MO (FLUZONE/FLULAVAL/FL UARIX) Unknown Completed [facility] TDAP (ADACEL) VACCINE Unknown Completed [facility] HPV Unknown Completed [facility] HPV Unknown Completed [facility] Varicella (varivax)(chicken pox) Unknown Completed [facility] Varicella (varivax)(chicken pox) Unknown Completed [facility] TDAP Unknown Completed [facility] IPV Unknown Completed [facility] IPV Unknown Completed [facility] IPV Unknown Completed [facility] IPV Unknown Completed [facility] Pneumococcal 7 Conjugate, PCV7 (Prevnar7) Unknown Completed [facility] Pneumococcal 7 Conjugate, PCV7 (Prevnar7) Unknown Completed [facility] Pneumococcal 7 Conjugate, PCV7 (Prevnar7) Unknown Completed [facility] Pneumococcal 7 Conjugate, PCV7 (Prevnar7) Unknown Completed [facility] MMR Unknown Completed [facility] MMR Unknown Completed [facility] Meningococcal Polysaccharide (groups A, C, Y and W-135) conjugate vaccine (MCV4P) Unknown Completed [facility] HIB 4 Dose Schedule Unknown Completed [facility] HIB 4 Dose Schedule Unknown Completed [facility] HIB 4 Dose Schedule Unknown Completed [facility] HIB 4 Dose Schedule Unknown Completed [facility] Hep B, Adol or Pedi Dosage Unknown Completed [facility] Hep B, Adol or Pedi Dosage Unknown Completed [facility] Hep B, Adol or Pedi Dosage Unknown Completed [facility] DTaP, Unspecified Formulation Unknown Completed [facility] DTaP, Unspecified Formulation Unknown Completed [facility] DTaP, Unspecified Formulation Unknown Completed [facility] DTaP, Unspecified Formulation Unknown Completed [facility] DTaP, Unspecified Formulation Unknown Completed [facility] DTaP, Unspecified Formulation Unknown Completed [facility] TDAP Unknown Completed [facility] Varicella (varivax)(chicken pox) Unknown Completed [facility] TDAP Unknown Completed [facility] Varicella (varivax)(chicken pox) Unknown Completed [facility] Influenza Virus Vaccine Quad .5 mL IM 6+ MO (FLUZONE/FLULAVAL/FL UARIX) Unknown Completed [facility] TDAP (ADACEL) VACCINE Unknown Completed [facility] HPV Unknown Completed [facility] HPV Unknown Completed [facility] Varicella (varivax)(chicken pox) Unknown Completed [facility] Varicella (varivax)(chicken pox) Unknown Completed [facility] TDAP Unknown Completed [facility] IPV Unknown Completed [facility] IPV Unknown Completed [facility] IPV Unknown Completed [facility] IPV Unknown Completed [facility] Pneumococcal 7 Conjugate, PCV7 (Prevnar7) Unknown Completed [facility] Pneumococcal 7 Conjugate, PCV7 (Prevnar7) Unknown Completed [facility] Pneumococcal 7 Conjugate, PCV7 (Prevnar7) Unknown Completed [facility] Pneumococcal 7 Conjugate, PCV7 (Prevnar7) Unknown Completed [facility] MMR Unknown Completed [facility] MMR Unknown Completed [facility] Meningococcal Polysaccharide (groups A, C, Y and W-135) conjugate vaccine (MCV4P) Unknown Completed [facility] HIB 4 Dose Schedule Unknown Completed [facility] HIB 4 Dose Schedule Unknown Completed [facility] HIB 4 Dose Schedule Unknown Completed [facility] HIB 4 Dose Schedule Unknown Completed [facility] Hep B, Adol or Pedi Dosage Unknown Completed [facility] Hep B, Adol or Pedi Dosage Unknown Completed [facility] Hep B, Adol or Pedi Dosage Unknown Completed [facility] DTaP, Unspecified Formulation Unknown Completed [facility] DTaP, Unspecified Formulation Unknown Completed [facility] DTaP, Unspecified Formulation Unknown Completed [facility] DTaP, Unspecified Formulation Unknown Completed [facility] DTaP, Unspecified Formulation Unknown Completed [facility] DTaP, Unspecified Formulation Unknown Completed [facility] TDAP Unknown Completed [facility] Varicella (varivax)(chicken pox) Unknown Completed [facility] TDAP Unknown Completed [facility] Varicella (varivax)(chicken pox) Unknown Completed [facility] Influenza Virus Vaccine Quad .5 mL IM 6+ MO (FLUZONE/FLULAVAL/FL UARIX) Unknown Completed [facility] TDAP (ADACEL) VACCINE Unknown Completed [facility] HPV Unknown Completed [facility] HPV Unknown Completed [facility] Varicella (varivax)(chicken pox) Unknown Completed [facility] Varicella (varivax)(chicken pox) Unknown Completed [facility] TDAP Unknown Completed [facility] IPV Unknown Completed [facility] IPV Unknown Completed [facility] IPV Unknown Completed [facility] IPV Unknown Completed [facility] Pneumococcal 7 Conjugate, PCV7 (Prevnar7) Unknown Completed [facility] Pneumococcal 7 Conjugate, PCV7 (Prevnar7) Unknown Completed [facility] Pneumococcal 7 Conjugate, PCV7 (Prevnar7) Unknown Completed [facility] Pneumococcal 7 Conjugate, PCV7 (Prevnar7) Unknown Completed [facility] MMR Unknown Completed [facility] MMR Unknown Completed [facility] Meningococcal Polysaccharide (groups A, C, Y and W-135) conjugate vaccine (MCV4P) Unknown Completed [facility] HIB 4 Dose Schedule Unknown Completed [facility] HIB 4 Dose Schedule Unknown Completed [facility] HIB 4 Dose Schedule Unknown Completed [facility] HIB 4 Dose Schedule Unknown Completed [facility] Hep B, Adol or Pedi Dosage Unknown Completed [facility] Hep B, Adol or Pedi Dosage Unknown Completed [facility] Hep B, Adol or Pedi Dosage Unknown Completed [facility] DTaP, Unspecified Formulation Unknown Completed [facility] DTaP, Unspecified Formulation Unknown Completed [facility] DTaP, Unspecified Formulation Unknown Completed [facility] DTaP, Unspecified Formulation Unknown Completed [facility] DTaP, Unspecified Formulation Unknown Completed [facility] DTaP, Unspecified Formulation Unknown Completed [facility] TDAP Unknown Completed [facility] Varicella (varivax)(chicken pox) Unknown Completed [facility] TDAP Unknown Completed [facility] Varicella (varivax)(chicken pox) Unknown Completed [facility] Influenza Virus Vaccine Quad .5 mL IM 6+ MO (FLUZONE/FLULAVAL/FL UARIX) Unknown Completed [facility] TDAP (ADACEL) VACCINE Unknown Completed [facility] HPV Unknown Completed [facility] HPV Unknown Completed [facility] Varicella (varivax)(chicken pox) Unknown Completed [facility] Varicella (varivax)(chicken pox) Unknown Completed [facility] TDAP Unknown Completed [facility] IPV Unknown Completed [facility] IPV Unknown Completed [facility] IPV Unknown Completed [facility] IPV Unknown Completed [facility] Pneumococcal 7 Conjugate, PCV7 (Prevnar7) Unknown Completed [facility] Pneumococcal 7 Conjugate, PCV7 (Prevnar7) Unknown Completed [facility] Pneumococcal 7 Conjugate, PCV7 (Prevnar7) Unknown Completed [facility] Pneumococcal 7 Conjugate, PCV7 (Prevnar7) Unknown Completed [facility] MMR Unknown Completed [facility] MMR Unknown Completed [facility] Meningococcal Polysaccharide (groups A, C, Y and W-135) conjugate vaccine (MCV4P) Unknown Completed [facility] HIB 4 Dose Schedule Unknown Completed [facility] HIB 4 Dose Schedule Unknown Completed [facility] HIB 4 Dose Schedule Unknown Completed [facility] HIB 4 Dose Schedule Unknown Completed [facility] Hep B, Adol or Pedi Dosage Unknown Completed [facility] Hep B, Adol or Pedi Dosage Unknown Completed [facility] Hep B, Adol or Pedi Dosage Unknown Completed [facility] DTaP, Unspecified Formulation Unknown Completed [facility] DTaP, Unspecified Formulation Unknown Completed [facility] DTaP, Unspecified Formulation Unknown Completed [facility] DTaP, Unspecified Formulation Unknown Completed [facility] DTaP, Unspecified Formulation Unknown Completed [facility] DTaP, Unspecified Formulation Unknown Completed [facility] TDAP Unknown Completed [facility] Varicella (varivax)(chicken pox) Unknown Completed [facility] TDAP Unknown Completed [facility] Varicella (varivax)(chicken pox) Unknown Completed [facility] Influenza Virus Vaccine Quad .5 mL IM 6+ MO (FLUZONE/FLULAVAL/FL UARIX) Unknown Completed [facility] TDAP (ADACEL) VACCINE Unknown Completed [facility] HPV Unknown Completed [facility] HPV Unknown Completed [facility] Varicella (varivax)(chicken pox) Unknown Completed [facility] Varicella (varivax)(chicken pox) Unknown Completed [facility] TDAP Unknown Completed [facility] IPV Unknown Completed [facility] IPV Unknown Completed [facility] IPV Unknown Completed [facility] IPV Unknown Completed [facility] Pneumococcal 7 Conjugate, PCV7 (Prevnar7) Unknown Completed [facility] Pneumococcal 7 Conjugate, PCV7 (Prevnar7) Unknown Completed [facility] Pneumococcal 7 Conjugate, PCV7 (Prevnar7) Unknown Completed [facility] Pneumococcal 7 Conjugate, PCV7 (Prevnar7) Unknown Completed [facility] MMR Unknown Completed [facility] MMR Unknown Completed [facility] Meningococcal Polysaccharide (groups A, C, Y and W-135) conjugate vaccine (MCV4P) Unknown Completed [facility] HIB 4 Dose Schedule Unknown Completed [facility] HIB 4 Dose Schedule Unknown Completed [facility] HIB 4 Dose Schedule Unknown Completed [facility] HIB 4 Dose Schedule Unknown Completed [facility] Hep B, Adol or Pedi Dosage Unknown Completed [facility] Hep B, Adol or Pedi Dosage Unknown Completed [facility] Hep B, Adol or Pedi Dosage Unknown Completed [facility] DTaP, Unspecified Formulation Unknown Completed [facility] DTaP, Unspecified Formulation Unknown Completed [facility] DTaP, Unspecified Formulation Unknown Completed [facility] DTaP, Unspecified Formulation Unknown Completed [facility] DTaP, Unspecified Formulation Unknown Completed [facility] DTaP, Unspecified Formulation Unknown Completed [facility] TDAP Unknown Completed [facility] Varicella (varivax)(chicken pox) Unknown Completed [facility] TDAP Unknown Completed [facility] Varicella (varivax)(chicken pox) Unknown Completed [facility] Influenza Virus Vaccine Quad .5 mL IM 6+ MO (FLUZONE/FLULAVAL/FL UARIX) Unknown Completed [facility] TDAP (ADACEL) VACCINE Unknown Completed [facility] HPV Unknown Completed [facility] HPV Unknown Completed [facility] Influenza Virus Vaccine Quad IM, Preserv and ABX Free 6 MO-64 YRS (FLUCELVAX) Unknown Completed [facility] Influenza Virus Vaccine Quad IM, Preserv and ABX Free 6 MO-64 YRS (FLUCELVAX) Unknown Completed [facility] TDAP Unknown Completed [facility] Varicella (varivax)(chicken pox) Unknown Completed [facility] Varicella (varivax)(chicken pox) Unknown Completed [facility] TDAP Unknown Completed [facility] IPV Unknown Completed [facility] IPV Unknown Completed [facility] IPV Unknown Completed [facility] IPV Unknown Completed [facility] Pneumococcal 7 Conjugate, PCV7 (Prevnar7) Unknown Completed [facility] Pneumococcal 7 Conjugate, PCV7 (Prevnar7) Unknown Completed [facility] Pneumococcal 7 Conjugate, PCV7 (Prevnar7) Unknown Completed [facility] Pneumococcal 7 Conjugate, PCV7 (Prevnar7) Unknown Completed [facility] MMR Unknown Completed [facility] MMR Unknown Completed [facility] Meningococcal Polysaccharide (groups A, C, Y and W-135) conjugate vaccine (MCV4P) Unknown Completed [facility] HIB 4 Dose Schedule Unknown Completed [facility] HIB 4 Dose Schedule Unknown Completed [facility] HIB 4 Dose Schedule Unknown Completed [facility] HIB 4 Dose Schedule Unknown Completed [facility] Hep B, Adol or Pedi Dosage Unknown Completed [facility] Hep B, Adol or Pedi Dosage Unknown Completed [facility] Hep B, Adol or Pedi Dosage Unknown Completed [facility] DTaP, Unspecified Formulation Unknown Completed [facility] DTaP, Unspecified Formulation Unknown Completed [facility] DTaP, Unspecified Formulation Unknown Completed [facility] DTaP, Unspecified Formulation Unknown Completed [facility] DTaP, Unspecified Formulation Unknown Completed [facility] DTaP, Unspecified Formulation Unknown Completed [facility] TDAP Unknown Completed [facility] Varicella (varivax)(chicken pox) Unknown Completed [facility] TDAP Unknown Completed [facility] Varicella (varivax)(chicken pox) Unknown Completed [facility] Influenza Virus Vaccine Quad .5 mL IM 6+ MO (FLUZONE/FLULAVAL/FL UARIX) Unknown Completed [facility] TDAP (ADACEL) VACCINE Unknown Completed [facility] HPV Unknown Completed [facility] HPV Unknown Completed [facility] Influenza Virus Vaccine Quad IM, Preserv and ABX Free 6 MO-64 YRS (FLUCELVAX) Unknown Completed [facility] Influenza Virus Vaccine Quad IM, Preserv and ABX Free 6 MO-64 YRS (FLUCELVAX) Unknown Completed [facility] TDAP Unknown Completed [facility] Varicella (varivax)(chicken pox) Unknown Completed [facility] Varicella (varivax)(chicken pox) Unknown Completed [facility] TDAP Unknown Completed [facility] IPV Unknown Completed [facility] IPV Unknown Completed [facility] IPV Unknown Completed [facility] IPV Unknown Completed [facility] Pneumococcal 7 Conjugate, PCV7 (Prevnar7) Unknown Completed [facility] Pneumococcal 7 Conjugate, PCV7 (Prevnar7) Unknown Completed [facility] Pneumococcal 7 Conjugate, PCV7 (Prevnar7) Unknown Completed [facility] Pneumococcal 7 Conjugate, PCV7 (Prevnar7) Unknown Completed [facility] MMR Unknown Completed [facility] MMR Unknown Completed [facility] Meningococcal Polysaccharide (groups A, C, Y and W-135) conjugate vaccine (MCV4P) Unknown Completed [facility] HIB 4 Dose Schedule Unknown Completed [facility] HIB 4 Dose Schedule Unknown Completed [facility] HIB 4 Dose Schedule Unknown Completed [facility] HIB 4 Dose Schedule Unknown Completed [facility] Hep B, Adol or Pedi Dosage Unknown Completed [facility] Hep B, Adol or Pedi Dosage Unknown Completed [facility] Hep B, Adol or Pedi Dosage Unknown Completed [facility] DTaP, Unspecified Formulation Unknown Completed [facility] DTaP, Unspecified Formulation Unknown Completed [facility] DTaP, Unspecified Formulation Unknown Completed [facility] DTaP, Unspecified Formulation Unknown Completed [facility] DTaP, Unspecified Formulation Unknown Completed [facility] DTaP, Unspecified Formulation Unknown Completed [facility] TDAP Unknown Completed [facility] Varicella (varivax)(chicken pox) Unknown Completed [facility] TDAP Unknown Completed [facility] Varicella (varivax)(chicken pox) Unknown Completed [facility] Influenza Virus Vaccine Quad .5 mL IM 6+ MO (FLUZONE/FLULAVAL/FL UARIX) Unknown Completed [facility] TDAP (ADACEL) VACCINE Unknown Completed [facility] HPV Unknown Completed [facility] HPV Unknown Completed [facility] Influenza Virus Vaccine Quad IM, Preserv and ABX Free 6 MO-64 YRS (FLUCELVAX) Unknown Completed [facility] Influenza Virus Vaccine Quad IM, Preserv and ABX Free 6 MO-64 YRS (FLUCELVAX) Unknown Completed [facility] TDAP Unknown Completed [facility] Varicella (varivax)(chicken pox) Unknown Completed [facility] Varicella (varivax)(chicken pox) Unknown Completed [facility] TDAP Unknown Completed [facility] IPV Unknown Completed [facility] IPV Unknown Completed [facility] IPV Unknown Completed [facility] IPV Unknown Completed [facility] Pneumococcal 7 Conjugate, PCV7 (Prevnar7) Unknown Completed [facility] Pneumococcal 7 Conjugate, PCV7 (Prevnar7) Unknown Completed [facility] Pneumococcal 7 Conjugate, PCV7 (Prevnar7) Unknown Completed [facility] Pneumococcal 7 Conjugate, PCV7 (Prevnar7) Unknown Completed [facility] MMR Unknown Completed [facility] MMR Unknown Completed [facility] Meningococcal Polysaccharide (groups A, C, Y and W-135) conjugate vaccine (MCV4P) Unknown Completed [facility] HIB 4 Dose Schedule Unknown Completed [facility] HIB 4 Dose Schedule Unknown Completed [facility] HIB 4 Dose Schedule Unknown Completed [facility] HIB 4 Dose Schedule Unknown Completed [facility] Hep B, Adol or Pedi Dosage Unknown Completed [facility] Hep B, Adol or Pedi Dosage Unknown Completed [facility] Hep B, Adol or Pedi Dosage Unknown Completed [facility] DTaP, Unspecified Formulation Unknown Completed [facility] DTaP, Unspecified Formulation Unknown Completed [facility] DTaP, Unspecified Formulation Unknown Completed [facility] DTaP, Unspecified Formulation Unknown Completed [facility] DTaP, Unspecified Formulation Unknown Completed [facility] DTaP, Unspecified Formulation Unknown Completed [facility] TDAP Unknown Completed [facility] Varicella (varivax)(chicken pox) Unknown Completed [facility] TDAP Unknown Completed [facility] Varicella (varivax)(chicken pox) Unknown Completed [facility] Influenza Virus Vaccine Quad .5 mL IM 6+ MO (FLUZONE/FLULAVAL/FL UARIX) Unknown Completed [facility] TDAP (ADACEL) VACCINE Unknown Completed [facility] HPV Unknown Completed [facility] HPV Unknown Completed [facility] Influenza Virus Vaccine Quad IM, Preserv and ABX Free 6 MO-64 YRS (FLUCELVAX) Unknown Completed [facility] Influenza Virus Vaccine Quad IM, Preserv and ABX Free 6 MO-64 YRS (FLUCELVAX) Unknown Completed [facility] TDAP Unknown Completed [facility] Varicella (varivax)(chicken pox) Unknown Completed [facility] Varicella (varivax)(chicken pox) Unknown Completed [facility] TDAP Unknown Completed [facility] IPV Unknown Completed [facility] IPV Unknown Completed [facility] IPV Unknown Completed [facility] IPV Unknown Completed [facility] Pneumococcal 7 Conjugate, PCV7 (Prevnar7) Unknown Completed [facility] Pneumococcal 7 Conjugate, PCV7 (Prevnar7) Unknown Completed [facility] Pneumococcal 7 Conjugate, PCV7 (Prevnar7) Unknown Completed [facility] Pneumococcal 7 Conjugate, PCV7 (Prevnar7) Unknown Completed [facility] MMR Unknown Completed [facility] MMR Unknown Completed [facility] Meningococcal Polysaccharide (groups A, C, Y and W-135) conjugate vaccine (MCV4P) Unknown Completed [facility] HIB 4 Dose Schedule Unknown Completed [facility] HIB 4 Dose Schedule Unknown Completed [facility] HIB 4 Dose Schedule Unknown Completed [facility] HIB 4 Dose Schedule Unknown Completed [facility] Hep B, Adol or Pedi Dosage Unknown Completed [facility] Hep B, Adol or Pedi Dosage Unknown Completed [facility] Hep B, Adol or Pedi Dosage Unknown Completed [facility] DTaP, Unspecified Formulation Unknown Completed [facility] DTaP, Unspecified Formulation Unknown Completed [facility] DTaP, Unspecified Formulation Unknown Completed [facility] DTaP, Unspecified Formulation Unknown Completed [facility] DTaP, Unspecified Formulation Unknown Completed [facility] DTaP, Unspecified Formulation Unknown Completed [facility] Vital Signs Vital Name Observation Time Observation Value Comments S ource Systolic blood pressure 2023-01-21 19:10:00 126 mm[Hg] [facility] Diastolic blood pressure 2023-01-21 19:10:00 84 mm[Hg] [facility] Heart rate 2023-01-21 19:10:00 83 /[facility]23-01-21 19:10:00 [facility] weight 2023-01-21 19:10:[address] [facility] BMI 2023-01-21 19:10:00 37.13 kg/m2 [facility] Oxygen saturation in Arterial blood by Pulse oximetry 2023-01-21 19:10:00 98 /min [facility] Body temperature 2022-11-12 14:39:00 36.39 Shawna [facility] Body height 2022-11-12 14:39:00 165.1 cm [facility] Body weight 2022-11-12 14:39:00 107.412 kg [facility] BMI 2022-11-12 14:39:00 39.41 kg/m2 [facility] Body temperature 2022-08-23 18:23:00 36.39 Shawna [facility] Body height 2022-08-23 18:23:00 165.1 cm [facility] Body weight 2022-08-23 18:23:00 103.057 kg [facility] BMI 2022-08-23 18:23:00 37.81 kg/m2 [facility] Systolic blood pressure 2022-07-31 01:12:49 131 mm[Hg] [facility] Diastolic blood pressure 2022-07-31 01:12:49 93 mm[Hg] [facility] Heart rate 2022-07-31 01:10:00 86 /min [facility] Body temperature 2022-07-31 01:10:00 37.22 Shawna [facility] Respiratory rate 2022-07-31 01:10:00 18 /min [facility] Body height 2022-07-31 01:10:00 165.1 cm [facility] Body weight 2022-07-31 01:10:00 99.791 kg [facility] BMI 2022-07-31 01:10:00 36.61 kg/m2 [facility] Oxygen saturation in Arterial blood by Pulse oximetry 2022-07-31 01:10:00 100 /min [facility] Systolic blood pressure 2022-05-22 01:28:00 135 mm[Hg] [facility] Diastolic blood pressure 2022-05-22 01:28:00 78 mm[Hg] [facility] Heart rate 2022-05-22 01:28:00 97 /min Unive [facility] Body temperature 2022-05-22 01:28:00 37 Shawna [facility] Respiratory rate 2022-05-22 01:28:00 20 /min [facility] Body height 2022-05-22 01:28:[address] [facility] Body weight 2022-05-22 01:28:00 99.882 kg [facility] BMI 2022-05-22 01:28:00 36.64 kg/m2 [facility] Oxygen saturation in Arterial blood by Pulse oximetry 2022-05-22 01:28:00 100 /min [facility] Systolic blood pressure 2022-03-30 12:38:00 119 mm[Hg] [facility] Diastolic blood pressure 2022-03-30 12:38:00 93 mm[Hg] [facility] Heart rate 2022-03-30 12:38:00 113 /min Unive [facility] Body temperature 2022-03-30 12:38:00 38 Shawna [facility] Respiratory rate 2022-03-30 12:38:00 20 /min [facility] Body height 2022-03-30 12:38:00 165.1 cm [facility] Body weight 2022-03-30 12:38:00 94.802 kg [facility] BMI 2022-03-30 12:38:00 34.78 kg/m2 [facility] Oxygen saturation in Arterial blood by Pulse oximetry 2022-03-30 12:38:00 100 /min [facility] Systolic blood pressure 2022-03-28 16:09:00 101 mm[Hg] [facility] Diastolic blood pressure 2022-03-28 16:09:00 70 mm[Hg] [facility] Heart rate 2022-03-28 16:09:00 59 /min Unive [facility] Body temperature 2022-03-28 16:09:00 36.56 Shawna [facility] Respiratory rate 2022-03-28 16:09:00 18 /min [facility] Body height 2022-03-28 16:09:00 165.1 cm [facility] Body weight 2022-03-28 16:09:00 94.802 kg [facility] BMI 2022-03-28 16:09:00 34.78 kg/m2 [facility] Systolic blood pressure 2022-03-08 15:50:00 117 mm[Hg] [facility] Diastolic blood pressure 2022-03-08 15:50:00 78 mm[Hg] [facility] Heart rate 2022-03-08 15:50:00 50 /min Un[facility] Body temperature 2022-03-08 15:50:00 36.83 Shawna [facility] Respiratory rate 2022-03-08 15:50:00 18 /min [facility] Body height 2022-03-08 15:50:00 165.1 cm [facility] Body weight 2022-03-08 15:50:00 97.886 kg [facility] BMI 2022-03-08 15:50:00 35.91 kg/m2 [facility] Systolic blood pressure 2022-02-28 18:45:00 124 mm[Hg] [facility] Diastolic blood pressure 2022-02-28 18:45:00 72 mm[Hg] [facility] Heart rate 2022-02-28 18:45:00 74 /min Unive [facility] Body temperature 2022-02-28 18:45:00 36.56 Shawna [facility] Respiratory rate 2022-02-28 18:45:00 18 /min [facility] Oxygen saturation in Arterial blood by Pulse oximetry 2022-02-28 18:45:00 99 /min [facility] Systolic blood pressure 2022-02-26 20:56:00 127 mm[Hg] [facility] Diastolic blood pressure 2022-02-26 20:56:00 85 mm[Hg] [facility] Heart rate 2022-02-26 20:56:00 101 /min [facility] Body temperature 2022-02-26 20:56:00 36.89 Shawna [facility] Respiratory rate 2022-02-26 20:56:00 18 /min [facility] Body height 2022-02-26 20:56:[address] [facility] Body weight 2022-02-26 20:56:[address] [facility] BMI 2022-02-26 20:56:00 37.41 kg/m2 Univ [facility] Heart rate 2022-02-27 04:15:00 64 /min Unive [facility] Oxygen saturation in Arterial blood by Pulse oximetry 2022-02-27 04:15:00 99 /min [facility] Systolic blood pressure 2022-02-27 03:45:00 106 mm[Hg] [facility] Diastolic blood pressure 2022-02-27 03:45:00 59 mm[Hg] [facility] Body temperature 2022-02-27 03:15:00 36.67 Shawna [facility] Respiratory rate 2022-02-27 03:15:00 18 /min [facility] Heart rate 2022-02-25 20:44:00 70 /min Unive [facility] Oxygen saturation in Arterial blood by Pulse oximetry 2022-02-25 20:44:00 99 /min [facility] Systolic blood pressure 2022-02-25 19:45:00 110 mm[Hg] [facility] Diastolic blood pressure 2022-02-25 19:45:00 54 mm[Hg] [facility] Body temperature 2022-02-25 19:45:00 36.89 Shawna [facility] Respiratory rate 2022-02-25 19:45:00 18 /min [facility] Body height 2022-02-25 19:45:[address] [facility] Body weight 2022-02-25 19:45:[address] [facility] BMI 2022-02-25 19:45:00 37.23 kg/m2 Univ [facility] Systolic blood pressure 2022-02-14 15:32:00 127 mm[Hg] [facility] Diastolic blood pressure 2022-02-14 15:32:00 83 mm[Hg] [facility] Heart rate 2022-02-14 15:32:00 85 /min Unive [facility] Body temperature 2022-02-14 15:32:00 36.78 Shawna [facility] Respiratory rate 2022-02-14 15:32:00 18 /min [facility] Body height 2022-02-14 15:32:[address] [facility] Body weight 2022-02-14 15:32:00 103.148 kg [facility] BMI 2022-02-14 15:32:00 37.84 kg/m2 [facility] Systolic blood pressure 2022-02-09 02:52:00 123 mm[Hg] [facility] Diastolic blood pressure 2022-02-09 02:52:00 84 mm[Hg] [facility] Heart rate 2022-02-09 02:52:00 78 /min Unive [facility] Body temperature 2022-02-09 02:52:00 36.61 Shawna [facility] Respiratory rate 2022-02-09 02:52:00 16 /min [facility] Oxygen saturation in Arterial blood by Pulse oximetry 2022-02-09 02:52:00 100 /min [facility] Body weight 2022-02-08 19:38:00 101.878 kg [facility] BMI 2022-02-08 19:38:00 37.38 kg/m2 [facility] Systolic blood pressure 2022-02-07 17:39:00 124 mm[Hg] [facility] Diastolic blood pressure 2022-02-07 17:39:00 84 mm[Hg] [facility] Heart rate 2022-02-07 17:39:00 80 /min Unive [facility] Body temperature 2022-02-07 17:39:00 36.11 Shawna [facility] Body height 2022-02-07 17:39:[address] [facility] Body weight 2022-02-07 17:39:00 102.967 kg [facility] BMI 2022-02-07 17:39:00 37.77 kg/m2 [facility] Oxygen saturation in Arterial blood by Pulse oximetry 2022-02-07 17:39:00 97 /min [facility] Systolic blood pressure 2022-02-04 02:00:00 109 mm[Hg] [facility] Diastolic blood pressure 2022-02-04 02:00:00 61 mm[Hg] [facility] Heart rate 2022-02-04 02:00:00 112 /min Unive [facility] Body temperature 2022-02-04 02:00:00 36.78 Shawna [facility] Respiratory rate 2022-02-04 02:00:00 16 /min [facility] Oxygen saturation in Arterial blood by Pulse oximetry 2022-02-04 02:00:00 99 /min [facility] Body height 2022-02-03 21:39:00 165.1 cm [facility] Body weight 2022-02-03 21:39:00 101.061 kg [facility] BMI 2022-02-03 21:39:00 37.08 kg/m2 [facility] Heart rate 2022-02-02 17:30:00 86 /min Un[facility] Oxygen saturation in Arterial blood by Pulse oximetry 2022-02-02 17:30:00 100 /min [facility] Systolic blood pressure 2022-02-02 16:46:00 91 mm[Hg] [facility] Diastolic blood pressure 2022-02-02 16:46:00 52 mm[Hg] [facility] Body temperature 2022-02-02 16:46:00 35.56 Shawna [facility] Respiratory rate 2022-02-02 16:46:00 18 /min [facility] Systolic blood pressure 2022-01-31 16:01:00 119 mm[Hg] [facility] Diastolic blood pressure 2022-01-31 16:01:00 85 mm[Hg] [facility] Heart rate 2022-01-31 16:01:00 87 /min Unive [facility] Body temperature 2022-01-31 16:01:00 36.5 Shawna [facility] Respiratory rate 2022-01-31 16:01:00 18 /min [facility] Body height 2022-01-31 16:01:[address] [facility] Body weight 2022-01-31 16:01:[address] [facility] BMI 2022-01-31 16:01:00 36.78 kg/m2 Univ [facility] Heart rate 2022-01-30 22:30:00 101 /min Unive [facility] Oxygen saturation in Arterial blood by Pulse oximetry 2022-01-30 22:30:00 99 /min [facility] Systolic blood pressure 2022-01-30 22:00:00 129 mm[Hg] [facility] Diastolic blood pressure 2022-01-30 22:00:00 75 mm[Hg] [facility] Respiratory rate 2022-01-30 22:00:00 18 /min [facility] Body temperature 2022-01-30 19:09:00 36.72 Shawna [facility] Body height 2022-01-30 19:09:[address] [facility] Body weight 2022-01-30 19:09:00 100.426 kg [facility] BMI 2022-01-30 19:09:00 36.84 kg/m2 [facility] Systolic blood pressure 2022-01-30 18:35:00 166 mm[Hg] [facility] Diastolic blood pressure 2022-01-30 18:35:00 93 mm[Hg] [facility] Heart rate 2022-01-30 18:34:00 88 /min [facility] Body temperature 2022-01-30 18:34:00 36.83 Shawna [facility] Respiratory rate 2022-01-30 18:34:00 16 /min [facility] Body height 2022-01-30 18:34:[address] [facility] Body weight 2022-01-30 18:34:[address] [facility] BMI 2022-01-30 18:34:00 36.78 kg/m2 Univ [facility] Systolic blood pressure 2022-01-29 04:19:00 111 mm[Hg] [facility] Diastolic blood pressure 2022-01-29 04:19:00 63 mm[Hg] [facility] Heart rate 2022-01-29 04:19:00 85 /min Unive [facility] Body temperature 2022-01-29 04:19:00 36.67 Shawna [facility] Respiratory rate 2022-01-29 04:19:00 16 /min [facility] Oxygen saturation in Arterial blood by Pulse oximetry 2022-01-29 04:19:00 100 /min [facility] Body height 2022-01-29 04:06:[address] [facility] Body weight 2022-01-29 04:06:00 101.606 kg 224lb [facility] BMI 2022-01-29 04:06:00 37.28 kg/m2 Univ [facility] Systolic blood pressure 2022-01-17 18:14:00 108 mm[Hg] [facility] Diastolic blood pressure 2022-01-17 18:14:00 71 mm[Hg] [facility] Heart rate 2022-01-17 18:14:00 92 /min Unive [facility] Body temperature 2022-01-17 18:14:00 36.78 Shawna [facility] Body height 2022-01-17 18:14:[address] [facility] Body weight 2022-01-17 18:14:00 101.969 kg [facility] BMI 2022-01-17 18:14:00 37.41 kg/m2 [facility] Systolic blood pressure 2021-12-20 13:58:00 105 mm[Hg] [facility] Diastolic blood pressure 2021-12-20 13:58:00 73 mm[Hg] [facility] Heart rate 2021-12-20 13:58:00 73 /min Unive [facility] Body temperature 2021-12-20 13:58:00 36.5 Shawna [facility] Respiratory rate 2021-12-20 13:58:00 18 /min [facility] Body height 2021-12-20 13:58:[address] [facility] Body weight 2021-12-20 13:58:[address] [facility] BMI 2021-12-20 13:58:00 36.58 kg/m2 Univ [facility] Systolic blood pressure 2021-11-22 15:58:00 110 mm[Hg] [facility] Diastolic blood pressure 2021-11-22 15:58:00 73 mm[Hg] [place] [facility] Heart rate 2021-11-22 15:58:00 79 /min Unive [facility] Body temperature 2021-11-22 15:58:00 37 Shawna [facility] Respiratory rate 2021-11-22 15:58:00 18 /min [facility] Body height 2021-11-22 15:58:[address] [facility] Body weight 2021-11-22 15:58:00 99.338 kg [facility] BMI 2021-11-22 15:58:00 36.44 kg/m2 Univ [facility] Systolic blood pressure 2021-10-24 19:20:00 108 mm[Hg] [place] [facility] Diastolic blood pressure 2021-10-24 19:20:00 70 mm[Hg] [facility] Heart rate 2021-10-24 19:20:00 87 /min Unive [facility] Body temperature 2021-10-24 19:20:00 37.17 Shawna [facility] Body height 2021-10-24 19:20:[address] [facility] Body weight 2021-10-24 19:20:00 98.431 kg [facility] BMI 2021-10-24 19:20:00 36.11 kg/m2 Univ [facility] Systolic blood pressure 2021-09-26 18:06:00 99 mm[Hg] [facility] Diastolic blood pressure 2021-09-26 18:06:00 69 mm[Hg] [place] [facility] Heart rate 2021-09-26 18:06:00 62 /min [facility] Body temperature 2021-09-26 18:06:00 36.78 Shawna [facility] Respiratory rate 2021-09-26 18:06:00 18 /min [facility] Body height 2021-09-26 18:06:00 165.[facility] Body weight 2021-09-26 18:06:[address] [facility] BMI 2021-09-26 18:06:00 35.61 kg/m2 [facility] Systolic blood pressure 2021-08-29 20:40:00 120 mm[Hg] [facility] Diastolic blood pressure 2021-08-29 20:40:00 79 mm[Hg] [facility] Heart rate 2021-08-29 20:40:00 58 /min Unive [facility] Body temperature 2021-08-29 20:40:00 36.78 Shawna [facility] Respiratory rate 2021-08-29 20:40:00 20 /min [facility] Body height 2021-08-29 20:40:00 165.1 cm [facility] Body weight 2021-08-29 20:40:[address] [facility] BMI 2021-08-29 20:40:00 36.54 kg/m2 [facility] Systolic blood pressure 2021-08-01 18:12:00 98 mm[Hg] [facility] Diastolic blood pressure 2021-08-01 18:12:00 63 mm[Hg] [facility] Heart rate 2021-08-01 18:12:00 89 /min Unive [facility] Body temperature 2021-08-01 18:12:00 36.94 Shawna [facility] Respiratory rate 2021-08-01 18:12:00 18 /min [facility] Body height 2021-08-01 18:12:00 165.1 cm [facility] Body weight 2021-08-01 18:12:00 100.245 kg [facility] BMI 2021-08-01 18:12:00 36.78 kg/m2 [facility] Systolic blood pressure 2021-07-19 19:40:00 112 mm[Hg] [facility] Diastolic blood pressure 2021-07-19 19:40:00 77 mm[Hg] [facility] Heart rate 2021-07-19 19:40:00 76 /min Unive [facility] Body temperature 2021-07-19 19:40:00 36.94 Shawna [facility] Body height 2021-07-19 19:40:00 167.6 cm [facility] Body weight 2021-07-19 19:40:00 100.336 kg [facility] BMI 2021-07-19 19:40:00 35.70 kg/m2 [facility] Systolic blood pressure 2021-01-15 12:54:00 125 mm[Hg] [facility] Diastolic blood pressure 2021-01-15 12:54:00 74 mm[Hg] [facility] Heart rate 2021-01-15 12:54:00 68 /min Unive [facility] Body temperature 2021-01-15 12:54:00 36.11 Shawna [facility] Respiratory rate 2021-01-15 12:54:00 18 /min [facility] Oxygen saturation in Arterial blood by Pulse oximetry 2021-01-15 12:54:00 98 /min [facility] Body weight 2021-01-14 09:00:00 96.616 kg [facility] BMI 2021-01-14 09:00:00 35.45 kg/m2 [facility] Systolic blood pressure 2021-01-12 20:03:00 120 mm[Hg] [facility] Diastolic blood pressure 2021-01-12 20:03:00 86 mm[Hg] [facility] Heart rate 2021-01-12 20:03:00 80 /min Un[facility] Body temperature 2021-01-12 20:03:00 36.89 Shawna [facility] Respiratory rate 2021-01-12 20:03:00 16 /min [facility] Body height 2021-01-12 20:03:00 165.1 cm [facility] Body weight 2021-01-12 20:03:00 96.752 kg [facility] BMI 2021-01-12 20:03:00 35.49 kg/m2 [facility] Systolic blood pressure 2021-01-15 12:54:00 125 mm[Hg] [facility] Diastolic blood pressure 2021-01-15 12:54:00 74 mm[Hg] [facility] Heart rate 2021-01-15 12:54:00 68 /min [facility] Body temperature 2021-01-15 12:54:00 36.11 Shawna [facility] Respiratory rate 2021-01-15 12:54:00 18 /min [facility] Oxygen saturation in Arterial blood by Pulse oximetry 2021-01-15 12:54:00 98 /min [facility] Body weight 2021-01-14 09:00:00 96.616 kg [facility] BMI 2021-01-14 09:00:00 35.45 kg/m2 [facility] Body height 2021-01-12 20:03:00 165.1 cm [facility] Procedures Procedure Date / Time Performed Performing Clinician Source CONSENT/REFUSAL FOR DIAGNOSIS AND TREATMENT 2022-10-29 13:15:54 Doctor Unassigned, [place] [facility] POCT TEST 2022-07-31 03:16:00 Magalys Lacey [facility] MAGNESIUM 2022-07-31 03:10:00 Magalys Lacey [facility] COMP. METABOLIC PANEL ([id number]) 2022-07-31 03:10:00 Magalys Lacey [facility] CBC WITH DIFF 2022-07-31 03:10:00 Magalys Lacey [facility] URINALYSIS 2022-07-31 03:10:00 Magalys Lacey [facility] NOTICE OF PRIVACY PRACTICES 2022-07-31 00:59:00 Doctor Unassigned, [place] [facility] CONSENT/REFUSAL FOR DIAGNOSIS AND TREATMENT 2022-07-31 00:58:05 Doctor Unassigned, [place] [facility] RAPID STREP SCREEN FOR GROUP A 2022-05-22 01:35:00 Tracy Wheeler [facility] CONSENT/REFUSAL FOR DIAGNOSIS AND TREATMENT 2022-05-22 01:15:31 Doctor Unassigned, [place] [facility] RAPID STREP SCREEN FOR GROUP A 2022-03-30 13:29:00 Kiran Scales [facility] RAPID INFLUENZA A/B 2022-03-30 13:29:00 Kiran Scales [facility] COVID-19 (ID NOW RAPID TESTING) 2022-03-30 13:29:00 Kiran Scales [facility] CONSENT/REFUSAL FOR DIAGNOSIS AND TREATMENT 2022-03-30 12:31:52 Doctor Unassigned, [place] [facility] POCT TEST 2022-03-28 00:00:00 Elliot Gould [facility] PREPARE PACKED RBC 2022-03-01 01:11:43 Elliot Gould [facility] CBC WITH DIFF 2022-02-27 10:28:00 Elliot Gould [facility] CBC WITH DIFF 2022-02-27 10:28:00 Elliot Gould [facility] PREPARE PACKED RBC 2022-02-27 01:40:56 Elliot Gould U [facility] CBC WITH DIFF 2022-02-26 23:01:00 Elliot Gould [facility] HEPATITIS B SURFACE ANTIGEN 2022-02-26 23:01:00 Elliot Gould [facility] ADC OR TIFFANI ONLY - RPR 2022-02-26 23:01:00 Gregory Gould [facility] CBC WITH DIFF 2022-02-26 23:01:00 Elliot Gould [facility] HEPATITIS B SURFACE ANTIGEN 2022-02-26 23:01:00 Elliot Gould [facility] ADC OR TIFFANI ONLY - RPR 2022-02-26 23:01:00 Gregory Gould [facility] HB ABO GROUPING 2022-02-26 23:00:00 Elliot Gould [facility] RHO (D) IMMUNE GLOBULIN 2022-02-26 23:00:00 Elliot Gould [facility] HB ABO GROUPING 2022-02-26 23:00:00 GouldElliot [facility] RHO (D) IMMUNE GLOBULIN 2022-02-26 23:00:00 Elliot Gould [facility] ASSIGNMENT OF BENEFITS 2022-02-26 21:46:08 Docto r Unassigned, [place] [facility] DSU PRE-OP 2022-02-26 06:01:00 Doctor Unass igned, [place] [facility] DSU PRE-OP 2022-02-26 06:01:00 Doctor Unass igned, [place] [facility] POCT URINALYSIS W/O SPECIFIC GRAVITY 2022-02-26 00:00:00 Elliot Gould [facility] URINALYSIS 2022-02-25 20:15:00 AdSonia perez [facility] CONSENT/REFUSAL FOR DIAGNOSIS AND TREATMENT 2022-02-25 19:07:24 Doctor Unassigned, [place] [facility] ASSIGNMENT OF BENEFITS 2022-02-25 19:06:09 Docto r Unassigned, [place] [facility] POCT URINALYSIS W/O SPECIFIC GRAVITY 2022-02-14 15:42:00 GouldElliot [facility] CONSENT/REFUSAL FOR DIAGNOSIS AND TREATMENT 2022-02-09 05:01:00 Doctor Unassigned, [place] [facility] AMYLASE 2022-02-08 22:31:00 Bryanna Elliot [facility] LIPASE 2022-02-08 22:31:00 Bryanna Elliot [facility] COMP. METABOLIC PANEL (27945) 2022-02-08 22:31:00 Bryanna Elliot [facility] CBC WITH DIFF 2022-02-08 22:31:00 Bryanna Elliot [facility] ASSIGNMENT OF BENEFITS 2022-02-08 19:31:04 Docto r Unassigned, [place] [facility] CONSENT/REFUSAL FOR DIAGNOSIS AND TREATMENT 2022-02-08 19:30:26 Doctor Unassigned, [place] [facility] POCT GLUCOSE (AUTOMATED) 2022-02-03 21:46:00 Elliot Gould [facility] CONSENT/REFUSAL FOR DIAGNOSIS AND TREATMENT 2022-02-03 21:09:38 Doctor Unassigned, [place] [facility] HB ABO GROUPING 2022-02-02 07:25:00 Ly, [facility] LACTATE DEHYDROGENASE 2022-02-02 04:42:00 Ly, [facility] URIC ACID 2022-02-02 04:42:00 Ly, [facility] COMP. METABOLIC PANEL ([id number]) 2022-02-02 04:42:00 Monae Knowles [facility] CBC WITH DIFF 2022-02-02 04:42:00 Ly, [facility] URINALYSIS 2022-02-02 04:42:00 Ly, [facility] HEPATITIS B SURFACE ANTIGEN 2022-02-02 04:42:00 Ly, [facility] PROTEIN CREAT RATIO URINE RANDOM 2022-02-02 04:42:00 Ly, [facility] HIV 1/2 AG-AB WITH REFLEX 2022-02-02 04:42:00 Ly, [facility] GALV ONLY - SYPHILIS IGG/IGM 2022-02-02 04:42:00 Ly, [facility] HOSPITAL ADMISSION 2022-02-01 05:01:00 Doctor Un assigned, [place] [facility] POCT URINALYSIS W/O SPECIFIC GRAVITY 2022-01-31 00:00:00 Shari Diamond [facility] ASSIGNMENT OF BENEFITS 2022-01-30 18:48:53 Docto r Unassigned, [place] [facility] NOTICE OF PRIVACY PRACTICES 2022-01-29 03:52:27 Doctor Unassigned, [place] [facility] ASSIGNMENT OF BENEFITS 2022-01-29 03:49:18 Docto r Unassigned, [place] [facility] URINALYSIS 2022-01-17 18:50:00 Elliot Gould [facility] TDAP VACCINE, >11 YRS, IM 2022-01-17 18:16:09 Bryanna Derickjoy jose enrique [facility] FLU VACC (), 6 MO-64 YRS, .5ML, IM, QUAD (FLUCELVAX) 2022-01-17 18:16:09 Elliot Gould [facility] POCT URINALYSIS W/O SPECIFIC GRAVITY 2022-01-17 00:00:00 Elliot Gould [facility] POCT URINALYSIS W/O SPECIFIC GRAVITY 2021-12-20 14:00:00 Lobo Shari [facility] SECOND AND THIRD TRIMESTER ULTRASOUND 2021-12-15 14:11:00 Elliot Gould [facility] POCT URINALYSIS W/O SPECIFIC GRAVITY 2021-11-22 00:00:00 Elliot Goudl [facility] CONSENT/REFUSAL FOR DIAGNOSIS AND TREATMENT 2021-10-24 19:11:23 Doctor Unassigned, [place] [facility] ASSIGNMENT OF BENEFITS 2021-10-24 19:10:45 Docto r Unassigned, [place] [facility] POCT URINALYSIS W/O SPECIFIC GRAVITY 2021-10-24 00:00:00 Lobo Shari [facility] SCANNED LAB RESULTS 2021-09-26 05:01:00 Doctor Brenden walden, [place] [facility] POCT URINALYSIS W/O SPECIFIC GRAVITY 2021-09-26 00:00:00 Elliot Gould [facility] POCT URINALYSIS W/O SPECIFIC GRAVITY 2021-08-29 20:41:00 Lobo Shari [facility] POCT URINALYSIS W/O SPECIFIC GRAVITY 2021-08-01 00:00:00 Elliot Gould [facility] US FIRST TRIMESTER LESS THAN 14 WEEKS WITH TRANSVAGINAL 2021-07-31 19:50:00 Elliot Gould [facility] US OB TRANSVAGINAL 2021-07-19 20:49:29 [facility] 2021-07-19 20:24:08 Docto r Unassigned, [place] [facility] FLU VACC ([id number]), 2-64 YRS, .5ML, IM, QUAD (FLUCELVAX) 2021-07-19 19:47:42 Elliot Gould [facility] POCT TEST 2021-07-19 00:00:00 Elliot Gould [facility] POCT URINALYSIS W/O SPECIFIC GRAVITY 2021-07-19 00:00:00 Elliot Gould [facility] CT ANGIOGRAM HEAD 2021-01-15 15:55:38 Nohemy Leung [facility] CT ANGIOGRAM HEAD 2021-01-15 15:55:38 Nohemy Leung [facility] MR BRAIN W WO CONTRAST 2021-01-15 01:57:00 [facility] 2021-01-15 01:57:00 Garry Cox [facility] BASIC METABOLIC PANEL (NA, K, CL, CO2, GLUCOSE, BUN, CREATININE, CA) 2021-01-14 09:29:00 [facility] 2021-01-14 09:29:00 Juan Smyth [facility] MAGNESIUM 2021-01-14 09:29:00 Juan Smyth [facility] BASIC METABOLIC PANEL (NA, K, CL, CO2, GLUCOSE, BUN, CREATININE, CA) 2021-01-14 09:29:00 Juan Smyth [facility] CBC WITH DIFF 2021-01-14 09:25:00 Juan Smyth [facility] CBC WITH DIFF 2021-01-14 09:25:00 Juan Smyth [facility] IR SPINAL LUMBAR PUNCTURE DIAGNOSTIC 2021-01-13 21:32:50 Libra [facility] IR SPINAL LUMBAR PUNCTURE DIAGNOSTIC 2021-01-13 21:32:50 Juan Smyth [facility] BODY FLUID MANUAL DIFF 2021-01-13 21:00:00 Nicolas Smyth [facility] CEREBROSPINAL FLUID GLUCOSE 2021-01-13 21:00:00 Juan Smyth [facility] CEREBROSPINAL FLUID PROTEIN 2021-01-13 21:00:00 [facility] 2021-01-13 21:00:00 Alejandra [facility] EXTRA TUBE CSF 2021-01-13 21:00:00 Juan Smyth [facility] CEREBROSPINAL FLUID PROTEIN 2021-01-13 21:00:00 [facility] CEREBROSPINAL FLUID GLUCOSE 2021-01-13 21:00:00 Juan Smyth [facility] BODY FLUID DIRECT COUNT 2021-01-13 21:00:00 Frantz Smyth [facility] EXTRA TUBE CSF 2021-01-13 21:00:00 Juan Smyth [facility] CSF CULTURE 2021-01-13 21:00:00 Alejandra [facility] PROTHROMBIN TIME / INR 2021-01-13 18:57:00 Nicolas Smyth [facility] PROTHROMBIN TIME / INR 2021-01-13 18:57:00 Nicolas Smyth [facility] PROTHROMBIN TIME / INR 2021-01-13 09:30:00 Silvana Guzman [facility] ACTIVATED PARTIAL THRMPLAS WILLIAM 2021-01-13 09:30:[address] [facility] PROTHROMBIN TIME / INR 2021-01-13 09:30:00 Silvana Guzman [facility] ACTIVATED PARTIAL THRMPLAS WILLIAM 2021-01-13 09:30:[address] [facility] CBC WITH DIFF 2021-01-13 04:33:00 Peter Garcia [facility] COMP. METABOLIC PANEL ([id number]) 2021-01-13 04:33:00 Peter Garcia [facility] MAGNESIUM 2021-01-13 04:33:00 Abel Guzman [facility] TROPONIN I 2021-01-13 04:33:00 Esechjoseph, [facility] 2021-01-13 04:33:00 [facility] TROPONIN I 2021-01-13 04:33:00 [facility] COMP. METABOLIC PANEL ([id number]) 2021-01-13 04:33:00 Peter Garcia [facility] CBC WITH DIFF 2021-01-13 04:33:00 Peter Garcia [facility] COVID-19 (ID NOW RAPID TESTING) 2021-01-13 03:33:00 Kayla Goodson [facility] COVID-19 (ID NOW RAPID TESTING) 2021-01-13 03:33:00 Kayla Goodson [facility] LAB ONLY COVID INTERPRETATION 2021-01-13 03:33:00 Kayla Goodson [facility] CONSENT/REFUSAL FOR DIAGNOSIS AND TREATMENT 2021-01-13 01:53:28 Doctor Unassigned, [place] [facility] CONSENT/REFUSAL FOR DIAGNOSIS AND TREATMENT 2021-01-13 01:53:28 Doctor Unassigned, [place] [facility] POCT TEST 2020-12-29 07:22:00 Coleen Miller [facility] NOTICE OF PRIVACY PRACTICES 2020-12-29 07:04:36 Doctor Unassigned, [place] [facility] CONSENT/REFUSAL FOR DIAGNOSIS AND TREATMENT 2020-12-29 07:04:21 Doctor Unassigned, [place] [facility] POCT TEST 2020-11-22 05:08:00 Amara Romeo ra [facility] CBC WITH DIFF 2020-11-22 04:55:00 Melissa Romeo [facility] BASIC METABOLIC PANEL (NA, K, CL, CO2, GLUCOSE, BUN, CREATININE, CA) 2020-11-22 04:55:00 Melissa Romeo [facility] NOTICE OF PRIVACY PRACTICES 2020-11-22 04:19:31 Doctor Unassigned, [place] [facility] CONSENT/REFUSAL FOR DIAGNOSIS AND TREATMENT 2020-11-22 04:17:24 Doctor Unassigned, [place] [facility] EMERGENCY SERVICES AGREEMENTS AND AUTHORIZATIONS 2020-11-21 05:01:00 Doctor Unassigned, [place] [facility] GC & CHLAMYDIA AMPLIFIED ASSAY 2020-11-07 18:21:00 Lobo Shari [facility] GALV ONLY - VAGINAL PATHOGENS BY NUCLEIC ACID TESTING 2020-11-07 18:21:00 Shari Diamond [facility] CT ANGIOGRAM HEAD 2020-10-27 07:36:57 Nkechi Olivares [facility] CT ANGIOGRAM NECK 2020-10-27 07:36:57 Nkechi Olivares [facility] CT HEAD WO CONTRAST 2020-10-27 07:33:49 Nkechi Olivares [facility] CBC WITH DIFF 2020-10-27 07:04:00 Nkechi Olivares [facility] BASIC METABOLIC PANEL (NA, K, CL, CO2, GLUCOSE, BUN, CREATININE, CA) 2020-10-27 07:04:00 Nkechi Olivares [facility] CONSENT/REFUSAL FOR DIAGNOSIS AND TREATMENT 2020-10-27 06:17:09 Doctor Unassigned, [place] [facility] EMERGENCY SERVICES AGREEMENTS AND AUTHORIZATIONS 2020-10-27 05:01:00 Doctor Unassigned, [place] [facility] POCT TEST 2020-10-25 23:55:00 Nkechi Olivares [facility] URINALYSIS 2020-10-25 23:48:00 Nkechi Olivares [facility] NOTICE OF PRIVACY PRACTICES 2020-10-25 22:10:05 Doctor Unassigned, [place] [facility] CONSENT/REFUSAL FOR DIAGNOSIS AND TREATMENT 2020-10-25 22:09:41 Doctor Unassigned, [place] [facility] EMERGENCY SERVICES AGREEMENTS AND AUTHORIZATIONS 2020-10-25 05:01:00 Doctor Unassigned, [place] [facility] SECTION Elliot Gould [facility] SECTION Elliot Gould [facility] Encounters Start Date/Time End Date/Time Encounter Type Admission Type Attending [facility] Facility Care Department Encounter ID Source 2022-11-20 09:52:09 Outpatient SAMMY JI [id number] ELIZABETHMARTHA MAXIMILIANOCYRUS [id number] [facility] 2022-02-02 14:13:49 Outpatient X [facility] [id number] [facility] 2021-02-21 01:01:49 Emergency [facility] [id number] [facility] 2021-02-20 21:22:40 Emergency [facility] [id number] [facility] 2021-02-20 12:36:56 Emergency [facility] [id number] [facility] 2021-02-20 06:43:59 Emergency [facility] [id number] [facility] 2021-02-20 06:24:27 Emergency [facility] [id number] [facility] 2021-02-16 20:10:04 Outpatient P [facility] [id number] [facility] 2021-02-16 17:53:58 Outpatient P [facility] [id number] [facility] 2021-02-16 16:15:54 Outpatient P [facility] [id number] [facility] 2023-04-27 00:00:00 2023-04-27 00:00:00 Alverto Foster [facility] [id number] 350.1.13.10 4.2.7.2.686 [id number] [facility] 2023-04-03 14:00:00 2023-04-03 14:00:00 Outpatient ALVERTO TEJADA [facility] [id number] [facility] 2023-03-04 00:00:00 2023-03-04 00:00:00 Case Management Annelise Brown 1.2.840.114 350.1.13.10 4.2.7.2.686 [id number] [facility] 2023-02-14 09:15:00 2023-02-14 09:15:00 Outpatient R COSME BRENNAN [facility] [id number] [facility] 2023-02-01 09:51:00 2023-02-01 14:57:00 Outpatient M GRETA MCMANUSO [id number] N [place] NO SHOW/CANCEL LED [id number] [facility] 2023-01-25 10:52:00 2023-01-25 14:21:00 Outpatient M EL, CYRUS [id number] N [place] NO SHOW/CANCEL LED [id number] [facility] 2023-01-21 15:00:00 2023-01-21 15:20:00 Office Visit Alverto Olivares [facility] OFF[facility]ILD[facility] [id number] 350.1.13.10 4.2.7.2.686 [id number] [facility] 2023-01-21 15:00:00 2023-01-21 15:00:00 Outpatient R ALVERTO OLIVARES [facility] [id number] [facility] 2022-12-26 09:30:00 2022-12-26 09:30:00 Outpatient R GLORIA JONES CRAIG [facility] [id number] [facility] 2022-12-14 09:19:00 2022-12-14 13:26:00 Outpatient M SAMMY JI [id number] [place] PPL RH [id number] [facility] 2022-12-12 13:00:00 2022-12-12 13:00:00 Outpatient R [facility] [id number] [facility] 2022-11-20 10:20:00 2022-11-20 17:52:00 Outpatient SAMMY JI [id number] [facility] RHC [id number] [facility] 2022-11-12 10:00:00 2022-11-12 10:15:00 Office Visit Cosme Brennan [facility] 1.2.840.114 350.1.13.10 4.2.7.2.686 [id number] [facility] 2022-11-12 10:00:00 2022-11-12 10:00:00 Outpatient COSME BOYER [facility] [id number] [facility] 2022-10-29 13:00:00 2022-10-29 15:00:00 Ancillary Visit Anna Dejesus Deborah L [facility] 1.2.840.114 350.1.13.10 4.2.7.2.686 [id number] [facility] 2022-10-29 13:00:00 2022-10-29 13:00:00 Outpatient LISA ROSALES [facility] [id number] [facility] 2022-10-29 08:15:00 2022-10-29 09:00:00 Ancillary Visit 1, [employer] Lisa Garcia [facility] 1.2.840.114 350.1.13.10 4.2.7.2.686 [id number] [facility] 2022-10-29 00:00:00 2022-10-29 00:00:00 Orders Only Doctor Unassigned, [place] [facility] 1.2.840.114 350.1.13.10 4.2.7.2.686 [id number] [facility] 2022-10-18 09:30:00 2022-10-18 09:30:00 Outpatient ELLIOT MOJICA [facility] [id number] [facility] 2022-08-23 13:30:00 2022-08-23 13:45:00 Office Visit Cosme Brennan [facility] 1.2.840.114 350.1.13.10 4.2.7.2.686 [id number] [facility] 2022-08-23 13:30:00 2022-08-23 13:30:00 Outpatient Reji BRENNANCOSME [facility] [id number] [facility] 2022-08-09 10:00:00 2022-08-09 10:00:00 Outpatient COSME BOYER [facility] [id number] [facility] 2022-08-01 13:20:00 2022-08-01 13:20:00 Outpatient ALVERTO TEJADA [facility] [id number] [facility] 2022-07-30 20:13:00 2022-07-31 00:14:00 Emergency Magalys Lacey [facility] 1.2.840.114 350.1.13.10 4.2.7.2.686 [id number] [facility] 2022-07-30 20:13:00 2022-07-31 00:14:00 Emergency X WALTER LACEYNOVA [facility] ERT [id number] [facility] 2022-06-08 09:30:00 2022-06-08 09:30:00 Outpatient ELLIOT MOJICA [facility] [id number] [facility] 2022-05-21 19:31:00 2022-05-21 20:58:00 Emergency X TRACY WHEELER [facility] ERT [id number] [facility] 2022-05-21 19:31:00 2022-05-21 20:58:00 Emergency Summer Tracy [facility] 1.2.840.114 350.1.13.10 4.2.7.2.686 [id number] [facility] 2022-05-17 00:00:00 2022-05-17 00:00:00 Patient Secure Msg Gould, Elliot [facility] PROFESSIO [facility]ILD[facility] 1.2.840.114 350.1.13.10 4.2.7.2.686 [id number] [facility] 2022-05-14 08:30:00 2022-05-14 08:30:00 Outpatient R ELLIOT GOULD [facility] [id number] [facility] 2022-04-11 00:00:00 2022-04-11 00:00:00 Patient Secure Elliot Harrison [facility] PROFESSIO NAL BUILDING 1.2.840.114 350.1.13.10 4.2.7.2.686 [id number] [facility] 2022-03-30 06:43:00 2022-03-30 09:05:00 Emergency X KIRAN SCALES [facility] ERT [id number] [facility] 2022-03-30 06:43:00 2022-03-30 09:05:00 Emergency Kiran Scales [facility] 1.2.840.114 350.1.13.10 4.2.7.2.686 [id number] [facility] 2022-03-28 09:45:00 2022-03-28 10:52:09 Outpatient Reji GOULDDERICKEN [facility] [id number] [facility] 2022-03-28 09:45:00 2022-03-28 10:52:09 Routine Visit Elliot Gould [facility]ESS[facility] BUILD[facility] 1.2.840.114 350.1.13.10 4.2.7.2.686 [id number] [facility] 2022-03-14 09:40:00 2022-03-14 09:40:00 Outpatient ALVERTO TEJADA [facility] [id number] [facility] 2022-03-08 09:45:00 2022-03-08 10:14:58 Outpatient R ELLIOT GOULD [facility] [id number] [facility] 2022-03-08 09:45:00 2022-03-08 10:14:58 Routine Visit Elliot Gould [facility] BUILDING 1..114 350.1.13.10 4.2.7.2.686 [id number] [facility] 2022-02-26 15:51:00 2022-02-28 18:50:00 Inpatient P ELLIOT GOULD [facility] JAVAD [id number] [facility] 2022-02-26 15:51:00 2022-02-28 18:50:00 Hospital Encounter Elliot Gould [facility] 1..114 350.1.13.10 4.2.7.2.686 [id number] [facility] 2022-02-26 15:00:00 2022-02-26 15:25:23 Outpatient R ELLIOT GOULD [facility] [id number] [facility] 2022-02-26 15:00:00 2022-02-26 15:25:23 Routine Visit Elliot Gould [facility] 1..114 350.1.13.10 4.2.7.2.686 [id number] [facility] 2022-02-26 00:00:00 2022-02-26 00:00:00 Orders Only Doctor Unassigned, [place] [facility] 1..114 350.1.13.10 4.2.7.2.686 [id number] [facility] 2022-02-26 00:00:00 2022-02-26 00:00:00 Prep For Surgery Elliot Gould [facility] BU[facility] 1..114 350.1.13.10 4.2.7.2.686 [id number] [facility] 2022-02-26 00:00:00 2022-02-26 00:00:00 Surgery Elliot Gould [facility] 1.2.840.114 350.1.13.10 4.2.7.2.686 [id number] [facility] 2022-02-25 13:15:00 2022-02-25 15:05:00 Outpatient X ADUM, SONIA [facility] JAVAD [id number] [facility] 2022-02-25 13:15:00 2022-02-25 15:05:00 Emergency Adum, Sonia Dooley [facility] 1.2.840.114 350.1.13.10 4.2.7.2.686 [id number] [facility] 2022-02-25 00:00:00 2022-02-25 00:00:00 Orders Only Doctor Unassigned, [place] [facility] 1.2.840.114 350.1.13.10 4.2.7.2.686 [id number] [facility] 2022-02-23 10:30:00 2022-02-23 11:00:00 Personal Fitness Manager Visit 3, [facility] 1.2840.114 350.1.13.10 4.2.7.2.686 [id number] [facility] 2022-02-23 10:30:00 2022-02-23 10:30:00 Outpatient P MORGAN GRANDE SANGEETA [facility] [id number] [facility] 2022-02-14 11:00:00 2022-02-14 11:50:02 Outpatient R ELLIOT GOULD [facility] [id number] [facility] 2022-02-14 11:00:00 2022-02-14 11:50:02 Routine [facility] 1.2.840.114 [id number] [facility] 2022-02-10 13:42:29 2022-02-10 23:59:00 Outpatient R ELLIOT [facility] [id number] [facility] 2022-02-10 13:42:29 2022-02-10 23:59:00 Hospital Encounter Elliot Gould [facility] [id number] [facility] 2022-02-10 13:41:56 2022-02-10 13:41:56 Hospital Encounter Elliot Gould [facility] [id number] [facility] 2022-02-09 00:00:00 2022-02-09 00:00:00 Case Management Elliot Gould [facility]ILD[facility] 1.2840.114 350.1.13.10 4.2.7.2.686 [id number] [facility] 2022-02-09 00:00:00 2022-02-09 00:00:00 Patient Secure Msg Elliot Gould [facility] BUILD[facility] 1.2.840.114 350.1.13.10 4.2.7.2.686 [id number] [facility] 2022-02-09 00:00:00 2022-02-09 00:00:00 Orders Only Doctor Unassigned, [place] [facility] 1.2840.114 350.1.13.10 4.2.7.2.686 [id number] [facility] 2022-02-08 14:39:00 2022-02-08 22:01:00 Outpatient X SONIA MAYBERRY [facility] JAVAD [id number] [facility] 2022-02-08 14:39:00 2022-02-08 22:01:00 Emergency [place], oClin Lacey Sonia Danielle [facility] 1.840.114 350.1.13.10 4.2.7.2.686 [id number] [id number] [facility] 2022-02-08 00:00:00 2022-02-08 00:00:00 Orders Only Doctor Unassigned, [place] [facility] 1.84.114 350.1.13.10 4.2.7.2.686 [id number] [facility] 2022-02-07 12:40:00 2022-02-07 12:55:59 Outpatient R ALVERTO OLIVARES [facility] [id number] [facility] 2022-02-07 12:40:00 2022-02-07 12:55:59 Office Visit Alverto Olivares [facility] 1.84.114 350.1.13.10 4.2.7.2.686 [id number] [facility] 2022-02-03 16:20:00 2022-02-03 21:24:00 Outpatient X ELLIOT GOULD [facility] JAVAD [id number] [facility] 2022-02-03 16:20:00 2022-02-03 21:24:00 Emergency YessiNataliya lawrence Vien Cam [facility] 1.840.114 350.1.13.10 4.2.7.2.686 [id number] [id number] [facility] 2022-02-03 00:00:00 2022-02-03 00:00:00 Orders Only Doctor Unassigned, [place] [facility] 1.0.114 350.1.13.10 4.2.7.2.686 [id number] [facility] 2022-02-01 20:31:00 2022-02-02 14:10:00 Inpatient X NOEL COOLEY [facility] [id number] [facility] 2022-02-01 20:31:00 2022-02-02 14:10:00 Hospital Encounter Noel Cooley [facility] 1.20.114 350.1.13.10 4.2.7.2.686 [id number] [facility] 2022-02-02 08:30:00 2022-02-02 08:30:00 Outpatient R [facility] [id number] [facility] 2022-02-01 09:45:00 2022-02-01 10:00:00 Personal Fitness Manager Visit Pob, Adc Lab Main Ghanshyamshannen [facility] 1.84.114 350.1.13.10 4.2.7.2.686 [id number] [facility] 2022-02-01 09:45:00 2022-02-01 09:45:00 Outpatient R LOBO [facility] [id number] [facility] 2022-02-01 00:00:00 2022-02-01 00:00:00 Case Management Lobo [facility] BUILDING 1.284.114 350.1.13.10 4.2.7.2.686 [id number] 134 [id number] [facility] 2022-02-01 00:00:00 2022-02-01 00:00:00 Patient Secure Msg Elliot Gould Everett [facility] 1.2840.114 350.1.13.10 4.2.7.2.686 [id number] [facility] 2022-02-01 00:00:00 2022-02-01 00:00:00 Orders Only Doctor Unassigned, [place] [facility] 1.2.840.114 350.1.13.10 4.2.7.2.686 [id number] [facility] 2022-01-31 11:15:00 2022-01-31 11:57:42 Outpatient R SHARI DIAMOND [facility] [id number] [facility] 2022-01-31 11:15:00 2022-01-31 11:57:42 Routine Visit Lobo Shari [facility]ILD[facility] 1.2.840.114 350.1.13.10 4.2.7.2.686 [id number] [facility] 2022-01-30 13:50:00 2022-01-30 17:35:00 Outpatient P ELLIOT GOULD [facility] [id number] [facility] 2022-01-30 13:50:00 2022-01-30 17:35:00 Hospital Encounter Elliot Gould [facility] 1.2.840.114 350.1.13.10 4.2.7.2.686 [id number] [id number] [facility] 2022-01-30 13:00:00 2022-01-30 13:15:00 Nurse Visit Nurse, [facility] Lobo [facility] BUILDING 1.2.840.114 350.1.13.10 4.2.7.2.686 [id number] [facility] 2022-01-30 13:00:00 2022-01-30 13:00:00 Outpatient R SHARI DIAMOND [facility] [id number] [facility] 2022-01-30 00:00:00 2022-01-30 00:00:00 Patient Secure Lisset Rodas [facility] 1.2840.114 350.1.13.10 4.2.7.2.686 [id number] 134 [id number] [facility] 2022-01-30 00:00:00 2022-01-30 00:00:00 Orders Only Doctor Unassigned, [place] [facility] 1.2840.114 350.1.13.10 4.2.7.2.686 [id number] [facility] 2022-01-30 00:00:00 2022-01-30 00:00:00 Case Management Elliot Gould [facility] 1.2840.114 350.1.13.10 4.2.7.2.686 [id number] 134 [id number] [facility] 2022-01-28 22:59:00 2022-01-28 23:50:00 Outpatient X ADSONIA PEREZ [facility] JAVAD [id number] [facility] 2022-01-28 22:59:00 2022-01-28 23:50:00 Emergency AdSonia perez [facility] 1.2840.114 350.1.13.10 4.2.7.2.686 [id number] [id number] [facility] 2022-01-28 00:00:00 2022-01-28 00:00:00 Orders Only Doctor Unassigned, [place] [facility] 1.2840.114 350.1.13.10 4.2.7.2.686 [id number] [facility] 2022-01-26 10:30:00 2022-01-26 11:30:51 Personal Fitness Manager Visit 3, [facility] Us Room Ran Arriaza [facility] 1.2840.114 350.1.13.10 4.2.7.2.686 [id number] [facility] 2022-01-26 10:30:00 2022-01-26 10:30:00 Outpatient P RAN ARRIAZA SHANNON [facility] [id number] [facility] 2022-01-25 08:00:00 2022-01-25 08:00:00 Outpatient R [facility] [id number] [facility] 2022-01-19 00:00:00 2022-01-19 00:00:00 Telephone Elliot Gould [facility] 1.2.840.114 350.1.13.10 4.2.7.2.686 [id number] 134 [id number] [facility] 2022-01-19 00:00:00 2022-01-19 00:00:00 Patient Secure Msg Elliot Gould [facility] 1.2.840.114 350.1.13.10 4.2.7.2.686 [id number] [facility] 2022-01-18 08:30:00 2022-01-18 08:30:00 Outpatient R [facility] [id number] [facility] 2022-01-17 13:00:00 2022-01-17 13:50:08 Outpatient R ELLIOT GOULD [facility] [id number] [facility] 2022-01-17 13:00:00 2022-01-17 13:50:08 Routine Visit Elliot Gould [facility] 1.2.840.114 350.1.13.10 4.2.7.2.686 [id number] [facility] 2022-01-03 09:00:00 2022-01-03 09:00:00 Outpatient SHARI IZAGUIRRE [facility] [id number] [facility] 2021-12-20 09:00:00 2021-12-20 09:16:25 Outpatient Reji DIAMOND [facility] [id number] [facility] 2021-12-20 09:00:00 2021-12-20 09:16:25 Routine Visit Lobo Shari [facility] 1.84.114 350.1.13.10 4.2.7.2.686 [id number] 134 [id number] [facility] 2021-12-15 08:30:00 2021-12-15 09:29:43 Personal Fitness Manager Visit 1, [facility]..114 350.1.13.10 4.2.7.2.686 [id number] [facility] 2021-12-15 08:30:00 2021-12-15 08:30:00 Outpatient P ALISSA WILLIAM [facility] [id number] [facility] 2021-12-13 11:00:00 2021-12-13 11:00:00 Outpatient R ALVERTO OLIVARES [facility] [id number] [facility] 2021-11-22 11:00:00 2021-11-22 12:06:39 Outpatient R ELLIOT GOULD [facility] [id number] [facility] 2021-11-22 11:00:00 2021-11-22 12:06:39 Routine Visit Elliot Gould [facility] 1.840.114 350.1.13.10 4.2.7.2.686 [id number] [facility] 2021-11-07 08:00:00 2021-11-07 09:15:48 Personal Fitness Manager Visit Ultrasound, Gus Luque [facility] FORMS ANALYSIS MANAGER [facility] 1.84.114 350.1.13.10 4.2.7.2.686 [id number] [facility] 2021-11-07 08:00:00 2021-11-07 08:00:00 Outpatient P BOWERGUS [facility] [id number] [facility] 2021-10-31 00:00:00 2021-10-31 00:00:00 Patient Secure Msg Elliot Gould [facility] BUILD[facility] 1.2.840.114 350.1.13.10 4.2.7.2.686 [id number] 134 [id number] [facility] 2021-10-24 15:30:00 2021-10-24 15:45:00 Personal Fitness Manager Visit 2, Adc Lab Lobo Shari [facility] BUILDING 1.2.840.114 350.1.13.10 4.2.7.2.686 [id number] [facility] 2021-10-24 15:30:00 2021-10-24 15:30:00 Outpatient R LOBO [facility] [id number] [facility] 2021-10-24 14:30:00 2021-10-24 15:01:58 Routine Visit Lobo [facility] 1.2.840.114 350.1.13.10 4.2.7.2.686 [id number] 134 [id number] [facility] 2021-10-24 00:00:00 2021-10-24 00:00:00 Orders Only Doctor Unassigned, [place] [facility] 1.2.840.114 350.1.13.10 4.2.7.2.686 [id number] [facility] 2021-10-11 00:00:00 2021-10-11 00:00:00 Telephone GouldElliot Everett [facility] 1.2.840.114 350.1.13.10 4.2.7.2.686 [id number] 134 [id number] [facility] 2021-09-26 13:15:00 2021-09-26 13:28:48 Outpatient R ELLIOT GOULD [facility] [id number] [facility] 2021-09-26 13:15:00 2021-09-26 13:28:48 [facility] 1.2.840.114 350.1.13.10 4.2.7.2.686 [id number] 134 [id number] [facility] 2021-09-26 11:30:00 2021-09-26 11:45:00 Personal Fitness Manager Visit 2, Adc Lab Elliot Gould [facility] BUILDING 1.2.840.114 350.1.13.10 4.2.7.2.686 [id number] [facility] 2021-09-26 00:00:00 2021-09-26 00:00:00 Orders Only Doctor Unassigned, [place] [facility] 1.2.840.114 350.1.13.10 4.2.7.2.686 [id number] [facility] 2021-09-21 00:00:00 2021-09-21 00:00:00 Letter (Out) Shari Diamond [facility]ILD[facility] 1.2.840.114 350.1.13.10 4.2.7.2.686 [id number] 134 [id number] [facility] 2021-09-21 00:00:00 2021-09-21 00:00:00 [facility] 1.2.840.114 350.1.13.10 4.2.7.2.686 [id number] 134 [id number] [facility] 2021-09-12 11:30:00 2021-09-12 11:30:00 Outpatient R [facility] [id number] [facility] 2021-08-29 14:00:00 2021-08-29 16:02:24 Outpatient R SHARI DIAMOND [facility] [id number] [facility] 2021-08-29 14:00:00 2021-08-29 14:15:00 [facility]ine [facility] 1.2.840.114 350.1.13.10 4.2.7.2.686 [id number] 134 [id number] [facility] 2021-08-07 12:00:00 2021-08-07 12:15:00 Personal Fitness Manager Visit Pob, Adc Lab Main Elliot Gould Everett [facility] BUILDING 1.2.840.114 350.1.13.10 4.2.7.2.686 [id number] [facility] 2021-08-07 12:00:00 2021-08-07 12:00:00 Outpatient R ELLIOT GOULD [facility] [id number] [facility] 2021-08-02 13:00:00 2021-08-02 13:00:00 Outpatient R [facility] [id number] [facility] 2021-08-01 13:00:00 2021-08-01 13:27:48 Outpatient R ELLIOT GOULD [facility] [id number] [facility] 2021-08-01 13:00:00 2021-08-01 13:27:48 Routine Visit Elliot Gould Eevrett [facility] 1.2.840.114 350.1.13.10 4.2.7.2.686 [id number] [facility] 2021-07-31 14:06:26 2021-07-31 23:59:00 Outpatient R ELLIOT GOULD [facility] [id number] [facility] 2021-07-31 14:06:26 2021-07-31 23:59:00 Hospital Encounter Elliot Gould [facility] 1.2840.114 350.1.13.10 4.2.7.2.686 [id number] [facility] 2021-07-24 13:15:00 2021-07-24 13:30:00 Personal Fitness Manager Visit 2, [facility]c Lab [facility] 1.2.840.114 350.1.13.10 4.2.7.2.686 [id number] [facility] 2021-07-24 13:15:00 2021-07-24 13:15:00 Outpatient R ELLIOT GOULD [facility] [id number] [facility] 2021-07-24 00:00:00 2021-07-24 00:00:00 Telephone Elliot Gould [facility] BUILDING 1.2.840.114 350.1.13.10 4.2.7.2.686 [id number] 134 [id number] [facility] 2021-07-24 00:00:00 2021-07-24 00:00:00 Case Management Elliot Gould [facility]ILD[facility] 1.2.840.114 350.1.13.10 4.2.7.2.686 [id number] [facility] 2021-07-21 13:00:00 2021-07-21 13:15:00 Personal Fitness Manager Visit 2, Adc Lab Elliot Gould [facility] BUILDING 1.2.840.114 350.1.13.10 4.2.7.2.686 [id number] [facility] 2021-07-21 13:00:00 2021-07-21 13:00:00 Outpatient R ELLIOT GOULD [facility] [id number] [facility] 2021-07-19 15:30:00 2021-07-19 15:45:00 Personal Fitness Manager Visit 2, Adc Lab Elliot Gould Cam [facility] 1.84.114 350.1.13.10 4.2.7.2.686 [id number] [facility] 2021-07-19 14:30:00 2021-07-19 15:11:33 Outpatient R ELLIOT GOULD [facility] [id number] [facility] 2021-07-19 14:30:00 2021-07-19 15:11:33 Initial Visit Elliot Gould Everett [facility]ILD[facility] 1.84.114 350.1.13.10 4.2.7.2.686 [id number] [facility] 2021-07-19 00:00:00 2021-07-19 00:00:00 Orders Only Doctor Unassigned, [place] [facility] 1.114 350.1.13.10 4.2.7.2.686 [id number] [facility] 2021-05-12 00:00:00 2021-05-12 00:00:00 Patient Secure Msg Shair Diamond [facility] 1.84.114 350.1.13.10 4.2.7.2.686 [id number] 134 [id number] [facility] 2021-03-03 13:00:00 2021-03-03 13:00:00 Outpatient R DERRICK CARBONE [facility] [id number] [facility] 2021-01-31 13:00:00 2021-01-31 13:00:00 Outpatient R DERRICK CARBONE [facility] [id number] [facility] 2021-01-22 00:00:00 2021-01-22 00:00:00 Patient Secure Msg Doctor Unassigned, [place] [facility] 1.114 350.1.13.10 4.2.7.2.686 [id number] [facility] 2021-01-20 00:00:00 2021-01-20 00:00:00 Patient Secure Msg Doctor Unassigned, [place] [facility] 1.2.840.114 350.1.13.10 4.2.7.2.686 [id number] [facility] 2021-01-18 00:00:00 2021-01-18 00:00:00 Patient Secure Msg Doctor Unassigned, [place] [facility] 1.2.840.114 350.1.13.10 4.2.7.2.686 [id number] [facility] 2021-01-17 00:00:00 2021-01-17 00:00:00 Transition of Care Adele Gonzalez Fernandez Foss 1.2.840.114 350.1.13.10 4.2.7.2.686 [id number] [facility] 2021-01-12 20:54:00 2021-01-15 15:00:00 Hospital Encounter Emanuel Roberts [facility] 1.2.840.114 350.1.13.10 4.2.7.2.686 [id number] [facility] 2021-01-12 14:58:23 2021-01-12 15:58:23 Office Visit Alverto Olivares, [facility] Neurology Continuity 1.2.840.1 61818.1.1 3.104.2.7 .3.993959 .8 [id number] [facility] 2021-01-12 15:30:00 2021-01-12 15:30:00 Outpatient R ALVERTO OLIVARES [facility] [id number] [facility] 2021-01-12 00:00:00 2021-01-12 00:00:00 Travel 1.2.840.1 66007.1.1 3.104.2.7 .3.834492 .8 1.2.840.114 350.1.13.10 4.2.7.3.698 084.8 [id number] [facility] 2021-01-12 00:00:00 2021-01-12 00:00:00 Telephone Clinic, [facility] Neurology [facility] 1.2.840.114 350.1.13.10 4.2.7.2.686 [id number] [facility] 2021-01-09 13:30:00 2021-01-09 13:30:00 Outpatient ALPHONSO ALFREDO [facility] [id number] [facility] 2020-12-29 02:14:00 2020-12-29 02:47:00 Emergency Coleen Miller [facility] 1.2.840.114 350.1.13.10 4.2.7.2.686 [id number] [facility] 2020-12-29 02:14:00 2020-12-29 02:47:00 Emergency Coleen Miller 1.2.840.1 44662.1.1 3.104.2.7 .3.676636 .8 [id number] [facility] 2020-12-29 00:00:00 2020-12-29 00:00:00 Travel 1.2.840.1 28893.1.1 3.104.2.7 .3.666891 .8 1.2.840.114 350.1.13.10 4.2.7.3.698 084.8 [id number] [facility] 2020-12-23 10:00:00 2020-12-23 10:00:00 Outpatient LISA ROSALES [facility] [id number] [facility] 2020-12-19 00:00:00 2020-12-19 00:00:00 Outpatient COSME BOYER [facility] [id number] [facility] 2020-12-13 00:00:00 2020-12-13 00:00:00 Travel 1.2.840.1 20642.1.1 3.104.2.7 .3.523319 .8 1.2.840.114 350.1.13.10 4.2.7.3.698 084.8 [id number] [facility] 2020-12-12 14:30:00 2020-12-12 14:30:00 Outpatient SHARI IZAGUIRRE [facility] [id number] [facility] 2020-12-02 09:17:22 2020-12-02 09:47:22 Office Visit Cosme Brennan [facility] 1.2.840.114 350.1.13.10 4.2.7.2.686 [id number] [facility] 2020-12-02 09:17:22 2020-12-02 09:47:22 Office Visit Cosme Brennan 1.2.840.1 79434.1.1 3.104.2.7 .3.344579 .8 [id number] [facility] 2020-12-02 09:30:00 2020-12-02 09:30:00 Outpatient COSME BOYER [facility] [id number] [facility] 2020-12-02 00:00:00 2020-12-02 00:00:00 Travel 1.2.840.1 28898.1.1 3.104.2.7 .3.373695 .8 1.2.840.114 350.1.13.10 4.2.7.3.698 084.8 [id number] [facility] 2020-11-21 23:30:00 2020-11-22 01:52:00 Emergency Melissa Romeo [facility] 1.2.840.114 350.1.13.10 4.2.7.2.686 [id number] [facility] 2020-11-21 23:30:00 2020-11-22 01:52:00 Emergency Melissa Romeo 1.2.840.1 07921.1.1 3.104.2.7 .3.212455 .8 [id number] [facility] 2020-11-22 00:00:00 2020-11-22 00:00:00 Patient Secure Msg Doctor Unassigned, [place] [facility] 1.2.840.114 350.1.13.10 4.2.7.2.686 [id number] [facility] 2020-11-21 00:00:00 2020-11-21 00:00:00 Orders Only Doctor Unassigned, [place] [facility] 1.2.840.114 350.1.13.10 4.2.7.2.686 [id number] [facility] 2020-11-21 00:00:00 2020-11-21 00:00:00 Travel 1.2.840.1 39164.1.1 3.104.2.7 .3.502764 .8 1.2.840.114 350.1.13.10 4.2.7.3.698 084.8 [id number] [facility] 2020-11-21 00:00:00 2020-11-21 00:00:00 Orders Only Doctor Unassigned, [place] 1.2.840.1 13201.1.1 3.104.2.7 .3.479563 .8 [id number] [facility] 2020-11-08 08:00:00 2020-11-08 08:00:00 Outpatient R SHARI DIAMOND [facility] [id number] [facility] 2020-11-07 12:50:14 2020-11-07 14:30:12 Office Visit Shari Diamond 1.2.840.1 79579.1.1 3.104.2.7 .3.275301 .8 [id number] [facility] 2020-11-07 12:50:14 2020-11-07 13:20:14 Office Visit Shari Diamond [facility] 1.2.840.114 350.1.13.10 4.2.7.2.686 [id number] [facility] 2020-11-07 13:00:00 2020-11-07 13:00:00 Outpatient R SHARI DIAMOND [facility] [id number] [facility] 2020-11-07 00:00:00 2020-11-07 00:00:00 Travel 1.2.840.1 23420.1.1 3.104.2.7 .3.685152 .8 1.2.840.114 350.1.13.10 4.2.7.3.698 084.8 [id number] [facility] 2020-11-03 03:41:00 2020-11-03 03:41:00 Outpatient [facility]IE[facility] [id number] [facility] 2020-10-27 01:43:00 2020-10-27 03:43:00 Emergency Nkechi Olivares Phillip [facility] 1.2.840.114 350.1.13.10 4.2.7.2.686 [id number] [facility] 2020-10-27 01:43:00 2020-10-27 03:43:00 Emergency Nkechi Olivares Phillip 1.2.840.1 65274.1.1 3.104.2.7 .3.875381 .8 [id number] [facility] 2020-10-27 00:00:00 2020-10-27 00:00:00 Travel 1.2.840.1 60200.1.1 3.104.2.7 .3.067308 .8 1.2.840.114 350.1.13.10 4.2.7.3.698 084.8 [id number] [facility] 2020-10-25 17:16:00 2020-10-25 20:33:00 Emergency Nkechi Olivares [facility] 1.2.840.114 350.1.13.10 4.2.7.2.686 [id number] [id number] [facility] 2020-10-25 17:16:00 2020-10-25 20:33:00 Emergency Nkechi Olivares 1.2.840.1 06812.1.1 3.104.2.7 .3.559576 .8 [id number] [facility] 2020-10-25 00:00:00 2020-10-25 00:00:00 Travel 1.2.840.1 51626.1.1 3.104.2.7 .3.092606 .8 1.2.840.114 350.1.13.10 4.2.7.3.698 084.8 [id number] [facility] 2020-09-28 14:26:34 2020-09-28 14:46:15 Nurse Visit Nurse, [facility] 1.2840.114 350.1.13.10 4.2.7.2.686 [id number] [facility] 2020-09-28 14:30:00 2020-09-28 14:30:00 Outpatient R [facility] [id number] [facility] 2020-09-28 00:00:00 2020-09-28 00:00:00 Patient Secure Shari Castillo [facility] NAL BUILDING 1.2.840.114 350.1.13.10 4.2.7.2.686 [id number] [facility] 2020-08-23 14:30:00 2020-08-23 14:30:00 Outpatient R SHARI DIAMOND [facility] [id number] [facility] 2020-08-17 00:00:00 2020-08-17 00:00:00 Patient Secure Msg Shari Diamond [facility] N[facility]ILD[facility] 1.2.840.114 350.1.13.10 4.2.7.2.686 [id number] 134 [id number] [facility] 2020-08-16 00:00:00 2020-08-16 00:00:00 Patient Secure Msg Shari Diamond [facility] 1.2.840.114 350.1.13.10 4.2.7.2.686 [id number] 134 [id number] [facility] 2020-08-15 00:00:00 2020-08-15 00:00:00 Case Management Shari Diamond [facility] 1.2.840.114 350.1.13.10 4.2.7.2.686 [id number] 134 [id number] [facility] 2020-08-12 00:00:00 2020-08-12 00:00:00 Telephone Shari Diamond [facility] 1.2.840.114 350.1.13.10 4.2.7.2.686 [id number] 134 [id number] [facility] 2020-08-12 00:00:00 2020-08-12 00:00:00 Patient Secure Msg Shari Diamond [facility] 1.2.840.114 350.1.13.10 4.2.7.2.686 [id number] 134 [id number] [facility] 2020-08-11 00:00:00 2020-08-11 00:00:00 Case Management Shari Diamond [facility] 1.2.840.114 350.1.13.10 4.2.7.2.686 [id number] 134 [id number] [facility] 2020-08-11 00:00:00 2020-08-11 00:00:00 Telephone Shari Diamond [facility] [place] [facility] 1.2.840.114 350.1.13.10 4.2.7.2.686 [id number] 134 [id number] [facility] 2020-08-10 14:26:30 2020-08-10 15:20:57 [facility] 1.2.840.114 350.1.13.10 4.2.7.2.686 [id number] 134 [id number] [facility] 2020-08-10 14:45:00 2020-08-10 14:45:00 Outpatient SHARI IZAGUIRRE [facility] [id number] [facility] 2020-08-10 00:00:00 2020-08-10 00:00:00 Orders Only Doctor Unassigned, [place] [facility] 1.2.840.114 350.1.13.10 4.2.7.2.686 [id number] [facility] 2020-07-12 00:00:00 2020-07-12 00:00:00 Patient Outreach Macario Arriaza [facility] 1.2.840.114 350.1.13.10 4.2.7.2.686 [id number] [facility] 2020-04-06 10:30:00 2020-04-06 10:30:00 Outpatient SHARI IZAGUIRRE [facility] [id number] [facility] 2020-03-25 13:00:00 2020-03-25 13:00:00 Outpatient Reji DIAMOND [facility] [id number] [facility] 2020-02-19 09:30:00 2020-02-19 09:30:00 Outpatient TAYLOR WOOD [facility] [id number] [facility] 2019-12-04 09:00:00 2019-12-04 09:00:00 Outpatient SHARI IZAGUIRRE [facility] [id number] [facility] 2019-09-24 14:37:46 2019-09-24 14:52:46 Routine Visit Shari Diamond [facility]al Building 1.2.840.114 350.1.13.10 4.2.7.2.686 [id number] 134 [id number] 2019-09-24 14:37:46 2019-09-24 14:52:46 Routine Visit Shari Diamond [facility] nal Building 1.2.840.114 350.1.13.10 4.2.7.2.686 [id number] 134 [id number] [facility] 2019-09-24 14:45:00 2019-09-24 14:45:00 Outpatient SHARI IZAGUIRRE [facility] [id number] [facility] 2019-08-27 04:09:00 2019-08-28 21:10:00 Hospital Encounter Elliot Gould [facility] 1.2.840.114 350.1.13.10 4.2.7.2.686 [id number] 2019-08-27 04:09:00 2019-08-28 21:10:00 Hospital Encounter Elliot Gould [facility] 1.2.840.114 350.1.13.10 4.2.7.2.686 [id number] [id number] [facility] 2019-08-26 10:10:09 2019-08-26 10:37:20 Routine Visit Elliot Gould [facility] 1.2.840.114 350.1.13.10 4.2.7.2.686 [id number] 134 [id number] [facility] 2019-08-26 10:15:00 2019-08-26 10:15:00 Outpatient R ELLIOT GOULD [facility] [id number] [facility] 2019-08-26 09:23:44 2019-08-26 09:30:04 Laboratory Only Only, Adc Test [facility] nal Building 1.2.840.114 350.1.13.10 4.2.7.2.686 [id number] 2019-08-26 09:23:44 2019-08-26 09:30:04 Laboratory Only Only, Adc Test Elliot Gould [facility] 1.2.840.114 350.1.13.10 4.2.7.2.686 [id number] [facility] 2019-08-25 00:00:00 2019-08-25 00:00:00 Patient Secure Msg Elliot Gould [facility] 1.2.840.114 350.1.13.10 4.2.7.2.686 [id number] 134 [id number] 2019-08-25 00:00:00 2019-08-25 00:00:00 Patient Secure Msg Elliot Gould [facility] nal Building 1.2.840.114 350.1.13.10 4.2.7.2.686 [id number] 134 [id number] 2019-08-25 00:00:00 2019-08-25 00:00:00 Patient Secure Msg [facility] 1.2.840.114 350.1.13.10 4.2.7.2.686 [id number] 134 [id number] [facility] 2019-08-25 00:00:00 2019-08-25 00:00:00 Patient Secure Msg Elliot Gould [facility] nal Building 1.2.840.114 350.1.13.10 4.2.7.2.686 [id number] 134 [id number] [facility] 2019-08-24 00:00:00 2019-08-24 00:00:00 Patient Secure Msg Elliot Gould [facility]al Building 1.2.840.114 350.1.13.10 4.2.7.2.686 [id number] 134 [id number] 2019-08-24 00:00:00 2019-08-24 00:00:00 Patient Secure Msg [facility] 1.2.840.114 350.1.13.10 4.2.7.2.686 [id number] 134 [id number] 2019-08-24 00:00:00 2019-08-24 00:00:00 Patient Secure Msg [facility] 1.2.840.114 350.1.13.10 4.2.7.2.686 [id number] 134 [id number] [facility] 2019-08-24 00:00:00 2019-08-24 00:00:00 Patient Secure Msg [facility] 1.2.840.114 350.1.13.10 4.2.7.2.686 [id number] 134 [id number] [facility] 2019-08-20 00:00:00 2019-08-20 00:00:00 Patient Secure Msg [facility] 1.2.840.114 350.1.13.10 4.2.7.2.686 [id number] 134 [id number] 2019-08-20 00:00:00 2019-08-20 00:00:00 Telephone [facility] 1.2.840.114 350.1.13.10 4.2.7.2.686 [id number] 134 [id number] [facility] 2019-08-20 00:00:00 2019-08-20 00:00:00 Case Management FemiShari carrero [facility] 1.2.840.114 350.1.13.10 4.2.7.2.686 [id number] 134 [id number] [facility] 2019-08-20 00:00:00 2019-08-20 00:00:00 Patient Secure Msg Elliot Gould [facility] 1.2.840.114 350.1.13.10 4.2.7.2.686 [id number] 134 [id number] [facility] 2019-08-19 16:00:00 2019-08-19 16:00:00 Outpatient R GOULDDERICKEN [facility] [id number] [facility] 2019-08-19 09:52:56 2019-08-19 10:34:36 Routine Visit Elliot Gould [facility] 1.2.840.114 350.1.13.10 4.2.7.2.686 [id number] 134 [id number] [facility] 2019-08-17 16:00:00 2019-08-17 16:00:00 [id number] [facility] 2019-08-13 16:05:07 2019-08-13 17:19:59 Routine Visit Elliot Gould [facility] 1.2.840.114 350.1.13.10 4.2.7.2.686 [id number] 134 [id number] [facility] 2019-08-13 16:00:00 2019-08-13 16:00:00 Outpatient R ELLIOT GOULD [facility] [id number] [facility] 2019-08-07 09:30:00 2019-08-07 09:30:00 [facility] [id number] [facility] 2019-08-06 10:44:08 2019-08-06 14:10:20 Routine Visit Shari Diamond [facility] Profess[facility]al Building 1.2.840.114 350.1.13.10 4.2.7.2.686 [id number] 134 [id number] [facility] 2019-08-06 11:15:00 2019-08-06 11:15:00 Outpatient R SHARI DIAMOND [facility] [id number] [facility] 2019-08-06 00:00:00 2019-08-06 00:00:00 Patient Secure Msg [facility] 1.2.840.114 350.1.13.10 4.2.7.2.686 [id number] 134 [id number] 2019-08-06 00:00:00 2019-08-06 00:00:00 Patient Secure Msg Elliot Gould [facility] Building 1.2.840.114 350.1.13.10 4.2.7.2.686 [id number] 134 [id number] [facility] 2019-08-03 17:06:00 2019-08-03 20:15:00 Hospital Encounter Elliot Gould [facility] 1.2.840.114 350.1.13.10 4.2.7.2.686 [id number] [id number] [facility] 2019-08-03 00:00:00 2019-08-03 00:00:00 Patient Secure Msg [facility] 1.2.840.114 350.1.13.10 4.2.7.2.686 [id number] 134 [id number] 2019-08-03 00:00:00 2019-08-03 00:00:00 Telephone [facility] 1.2.840.114 350.1.13.10 4.2.7.2.686 [id number] 134 [id number] [facility] 2019-08-03 00:00:00 2019-08-03 00:00:00 Patient Secure Msg Elliot Gould [facility]al Building 1.2.840.114 350.1.13.10 4.2.7.2.686 [id number] 134 [id number] [facility] 2019-07-21 16:00:00 2019-07-21 16:00:00 Outpatient R ELLIOT GOULD [facility] [id number] [facility] 2019-07-21 08:29:12 2019-07-21 15:14:02 Telemedici ne Visit [facility] 1.2.840.114 350.1.13.10 4.2.7.2.686 [id number] 134 [id number] [facility] 2019-07-20 00:00:00 2019-07-20 00:00:00 Patient Secure Msg [facility] 1.2.840.114 350.1.13.10 4.2.7.2.686 [id number] 134 [id number] [facility] 2019-07-20 00:00:00 2019-07-20 00:00:00 Patient Secure Msg Elliot [facility] 1.2.840.114 350.1.13.10 4.2.7.2.686 [id number] 134 [id number] [facility] 2019-07-20 00:00:00 2019-07-20 00:00:00 Patient Secure Msg Elliot Gould [facility]al Building 1.2.840.114 350.1.13.10 4.2.7.2.686 [id number] 134 [id number] [facility] 2019-07-17 16:49:00 2019-07-17 19:25:00 Outpatient P ELLIOT GOULD [facility] JAVAD [id number] [facility] 2019-07-17 16:49:00 2019-07-17 19:25:00 Hospital Encounter Elliot Gould [facility] 1.2.840.114 350.1.13.10 4.2.7.2.686 [id number] [facility] 2019-07-17 00:00:00 2019-07-17 00:00:00 Patient Secure Msg Elliot Gould [facility]al Building 1.2.840.114 350.1.13.10 4.2.7.2.686 [id number] 134 [id number] [facility] 2019-07-17 00:00:00 2019-07-17 00:00:00 [facility] 1.2.840.114 350.1.13.10 4.2.7.2.686 [id number] 134 [id number] [facility] 2019-07-16 00:00:00 2019-07-16 00:00:00 Patient Secure Msg Elliot Gould [facility] nal Building 1.2840.114 350.1.13.10 4.2.7.2.686 [id number] 134 [id number] [facility] 2019-07-06 11:15:00 2019-07-06 11:15:00 Outpatient R LOBO SHARI [facility] [id number] [facility] 2019-07-06 10:41:18 2019-07-06 10:56:18 Routine Visit Lobo Shari [facility] 1.2840.114 350.1.13.10 4.2.7.2.686 [id number] 134 [id number] [facility] 2019-06-30 00:00:00 2019-06-30 00:00:00 Patient Secure Msg [facility] 1.2840.114 350.1.13.10 4.2.7.2.686 [id number] 134 [id number] [facility] 2019-06-30 00:00:00 2019-06-30 00:00:00 Patient Secure Msg Elliot Gould [facility] 1.2.840.114 350.1.13.10 4.2.7.2.686 [id number] 134 [id number] [facility] 2019-06-29 15:38:14 2019-06-29 16:52:02 Routine Visit Elliot Gould [facility] 1.2.840.114 350.1.13.10 4.2.7.2.686 [id number] 134 [id number] [facility] 2019-06-29 15:45:00 2019-06-29 15:45:00 Outpatient R BRYANNA [facility] [id number] [facility] 2019-06-29 13:15:00 2019-06-29 13:15:00 [id number] 2019-06-26 08:39:29 2019-06-26 08:54:29 Personal Fitness Manager Visit 2, Adc Lab Shari Diamond [facility] 1..840.114 350.1.13.10 4.2.7.2.686 [id number] [facility] 2019-06-26 08:45:00 2019-06-26 08:45:00 Outpatient R SHARI DIAMOND [facility] [id number] [facility] 2019-06-26 07:58:11 2019-06-26 08:35:45 Routine Visit Shari Diamond [facility] 1.2.840.114 350.1.13.10 4.2.7.2.686 [id number] 134 [id number] [facility] 2019-06-26 00:00:00 2019-06-26 00:00:00 Orders Only Doctor Unassigned, [place] [facility] 1.2.840.114 350.1.13.10 4.2.7.2.686 [id number] [facility] 2019-06-25 00:00:00 2019-06-25 00:00:00 Patient Secure Elliot Harrison [facility] Building 1.2.840.114 350.1.13.10 4.2.7.2.686 [id number] 134 [id number] [facility] 2019-06-25 00:00:00 2019-06-25 00:00:00 Patient Secure Elliot Harrison [facility] 1.2.840.114 350.1.13.10 4.2.7.2.686 [id number] 134 [id number] [facility] 2019-06-18 00:00:00 2019-06-18 00:00:00 Patient Secure Elliot Harrison [facility] 1.2.840.114 350.1.13.10 4.2.7.2.686 [id number] 134 [id number] [facility] 2019-06-01 14:22:27 2019-06-01 14:37:27 Routine Visit Shari Diamond [facility] 1.2.840.114 350.1.13.10 4.2.7.2.686 [id number] 134 [id number] [facility] 2019-05-29 23:53:41 2019-05-30 02:39:00 Emergency Jase Abner [facility] 1.2.840.114 350.1.13.10 4.2.7.2.686 [id number] [facility] 2019-05-29 00:00:00 2019-05-29 00:00:00 Orders Only Doctor Unassigned, [place] [facility] 1.2.840.114 350.1.13.10 4.2.7.2.686 [id number] [facility] 2019-01-06 15:20:13 2019-01-06 16:47:07 Initial Visit Shari Diamond Vien Cam [facility] 1.2840.114 350.1.13.10 4.2.7.2.686 [id number] 134 [id number] [facility] 2019-01-06 00:00:00 2019-01-06 00:00:00 Orders Only Doctor Unassigned, [place] [facility] 1.2840.114 350.1.13.10 4.2.7.2.686 [id number] [facility] Results Test Description Test Time Test Comments Results Result Co mments Source [facility] (98984)2022-07-31 03:41:09* Test Item Value Reference Range Interpretation Comme nts NA (test code = 0221191127) 140 mmol/L 135-145 K (test code = 8499292397) 4.0 mmol/L 3.5-5.0 CL (test code = 5937637834) 100 mmol/L 98-108 CO2 TOTAL (test code = 3843659316) 29 mmol/L 23-31 AGAP (test code = 4897278120) 11 2-16 BUN (test code = 7054077152) 14 mg/dL 7-23 GLUCOSE (test code = 0167293446) 98 mg/dL 70-110 CREATININE (test code = 1694428790) 0.68 mg/dL 0.50-1.04 TOTAL BILI (test code = 8106946163) 1.3 mg/dL 0.1-1.1 H CALCIUM (test code = 6675846991) 10.1 mg/dL 8.6-10.6 T PROTEIN (test code = 7522739506) 8.2 g/dL 6.3-8.2 ALBUMIN (test code = 1363437672) 4.8 g/dL 3.5-5.0 ALK PHOS (test code = 5436581429) 77 U/L 34-122 ALTv (test code = 1742-6) 20 U/L 5-35 AST(SGOT) (test code = 2579411361) 21 U/L 13-40 eGFR (test code = 1239308502) 105.4 mL/min/1.73m2 ZAYRA (test code = ZAYRA) [...] imaging tests). Lab Interpretation (test code = 62479-7) Abnormal [facility]2023-04-11 03:41:09* Test Item Value Reference Range Interpretation Comme nts MAGNESIUM (test code = 1258327095) 1.8 mg/dL 1.7-2.4 Lab Interpretation (test cod e = 93906-0) Normal [facility] [id number] 03:16:00* Test Item Value Reference Range Interpretation Comme nts POCT PREG (test code = 1605) Negative On board controls acceptable with C Line (test code = 3574) Positive POCT PREG LOT # (test code = 3575) 139281 POCT PREG TEST DATE ( test code = 3576) 11/28/2023 Lab Interpretation (test cod e = 52412-0) Normal [facility] [id number] 17:21:00* Test Item Value Reference Range Interpretation Comme nts POCT PREG (test code = 1605) Negative On board controls acceptable with C Line (test code = 3574) Yes POCT PREG LOT # (test code = 3575) POCT PREG TEST DATE ( test code = 3576) [facility] HospitalPONJ [id number] 17:21:00* Test Item Value Reference Range Interpretation Comme nts POCT PREG (test code = 1605) Negative On board controls acceptable with C Line (test code = 3574) Yes POCT PREG LOT # (test code = 3575) POCT PREG TEST DATE ( test code = 3576) [facility] HospitalRHO (D) IMMUNE [id number] 03:32:31* Test Item Value Reference Range Interpretation Comme nts RHIG CANDIDATE? (test code = 5055) No- see comment Patient is not a candidate for RhIg- Patient is Rh Positive.Performed at [facility] Blood [address] [place] [address] Free: [phone] No. [id number] General acute hospitalO (D) IMMUNE [id number] 03:32:31* Test Item Value Reference Range Interpretation Comme nts RHIG CANDIDATE? (test code = 5055) No- see comment Patient is not a candidate for RhIg- Patient is Rh Positive.Performed at [facility] Blood [address] [place], [place] [address]Toll Free: [phone] No. [id number] [facility] HospitalType and Screen - ONCE [id number] 00:15:31 * Test Item Value Reference Range Interpretation Comme nts ABO & RH (test code = 20) O Positive Performed at [facility] Laboratory [facility] Blood [address] [place], [place] [address]Toll Free: [phone] No. [id number] IAT (test code = 1185) Negative Performed at [facility] Blood [address] Free: [phone] No. [id number] [facility] Screen - ONCE [id number] 00:15:31 * Test Item Value Reference Range Interpretation Comme nts ABO & RH (test code = 20) O Positive Performed at [facility] Blood [place] [address]Toll Free: [phone] No. [id number] IAT (test code = 1185) Negative Performed at [facility] Blood [place] [address]Toll Free: [phone] No. [id number] [facility] HospitalPO[facility] URINALYSIS W/O SPECIFIC [id number] 20:54:00* Test Item Value Reference Range Interpretation [...] = 3257) n/a Negative - Negati ve [facility]PO[facility] URINALYSIS W/O SPECIFIC [id number] 15:42:00* Test Item Value Reference Range Interpretation [...] = 3257) n/a Negative - Negati ve [facility] HospitalPOCT GLUCOSE (AUTOMATED)2022-02-03 21:48:52* Test Item Value Reference Range Interpretation Comme nts POCT GLU (test code = 1900316445) 95 mg/dL 70-110 Lab Interpretation (test cod e = 74414-1) Normal [facility] HospitalGALV ONLY - SYPHILIS [id number] 15:20:31* Test Item Value Reference Range Interpretation Comme nts Syphilis IgG/IgM (test code = 72421-0) Non-reactive Non-reactive ZAYRA (test code = ZAYRA) Non-reactive - No serologic evidence of T. pallidum infection. Cannot exclude incubating or early syphilis. Submit a second specimen in 2-4 weeks if syphilis is clinically suspected. Equivocal - Further testing to follow. Reactive - Further testing to follow. Lab Interpretation (test code = 13294-3) Normal [facility] Hospital[facility] Screen - ONCE [id number] 08:06:59 * Test Item Value Reference Range Interpretation Comme nts ABO & RH (test code = 20) O POSITIVE Performed at [facility] Laboratory Services - [facility] Blood [address] Free: [phone] No. [id number] IAT (test code = 1185) Negative Performed at [facility] Laboratory [facility] Blood [address] Free: [phone] No. [id number] [facility] HospitalHIV 1/2 AG-AB WITH [id number] 07:40:27* Test Item Value Reference Range Interpretation Comme nts HIV Semi-quantitative (test code = 02524-0) Negative Negative ZAYRA (test code = ZAYRA) Non-reactive for HIV-1 antigen and HIV-1/HIV-2 antibodies. ?No laboratory evidence of HIV infection. ?Repeat in 2-4 weeks if acute HIV infection is suspected. [facility] HospitalHEPATITIS B SURFACE [id number] 06:16:55 * Test Item Value Reference Range Interpretation Comme nts HBsAg Semi-Quantitative (amelia t code = 5195-3) Negative Negative [facility] HospitalUric Acid [id number] 05:27:07* Test Item Value Reference Range Interpretation Comme nts URIC ACID (test code = 6270375022) 3.6 mg/dL 2.9-6 Lab Interpretation (test cod e = 44691-2) Normal [facility] HospitalCOMP. METABOLIC PANEL (34027)2022-02-02 05:27:07* Test Item Value Reference Range Interpretation Comme nts NA (test code = 4104445003) 137 mmol/L 135-145 K (test code = 1416214310) 4.2 mmol/L 3.5-5 CL (test code = 5662785832) 103 mmol/L 98-108 CO2 TOTAL (test code = 4453452410) 26 mmol/L 23-31 AGAP (test code = 9051324513) 2-16 BUN (test code = 5411179106) 5 mg/dL 7-23 L GLUCOSE (test code = 0282023349) 98 mg/dL 70-110 CREATININE (test code = 5405590500) 0.42 mg/dL 0.5-1.04 L TOTAL BILI (test code = 0242243524) 0.9 mg/dL 0.1-1.1 CALCIUM (test code = 4937546181) 9.0 mg/dL 8.6-10.6 T PROTEIN (test code = 9566444129) 6.8 g/dL 6.3-8.2 ALBUMIN (test code = 0866461758) 3.3 g/dL 3.5-5 L ALK PHOS (test code = 9057766771) 141 U/L 34-122 H ALTv (test code = 1742-6) 7 U/L 5-35 AST(SGOT) (test code = 7242753819) 20 U/L 13-40 eGFR (test code = 2986213896) mL/min/1.73m2 ZAYRA (test code = ZAYRA) Association [...] imaging tests). Lab Interpretation (test code = 45495-2) Abnormal [facility] HospitalLactate Mynidovpszysw6435-48-57 05:25:26* Test Item Value Reference Range Interpretation Comme [facility] LDH (test code = 1461290510) 172 U/L 120-246 Lab Interpretation (test cod e = 81844-7) Normal [facility] HospitalCBC with Phcrihrznptz1668-60-63 05:03:49* Test Item Value Reference Range Interpretation [...] 33.3 g/dL 31.6-35.1 RDW-SD (test code = 28212-4) 41.2 fL 39-49.9 RDW-CV (test code = 788-0) 13.5 % 12-15.5 PLT (test code = 777-3) See_Comment [Automated message] The system which generated this result transmitted reference range: 166 - 358 10*3/?L. The reference range was not used to interpret this result as normal/abnormal. MPV (test code = 09137-1) 10.4 fL 9.5-12.9 NRBC/100 WBC (test code = 0571462203) See_Comment [Automated message] The system which generated this result transmitted reference range: 0.0 - 10.0 /100 WBCs. The reference range was not used to interpret this result as normal/abnormal. NRBC x10^3 (test code = [id number]) See_Comment [Automated message] The system which generated this result transmitted reference range: 10*3/?L. The reference range was not used to interpret this result as normal/abnormal. GRAN MAT (NEUT) % (test code = 770-8) 74.5 % IMM GRAN % (test code = [id number]) 0.40 % LYMPH % (test code = 736-9) 16.4 % MONO % (test code = 5905-5) 8.2 % EOS % (test code = 713-8) 0.3 % BASO % (test code = 706-2) 0.2 % GRAN MAT x10^3(ANC) (test code = [id number]) 11.33 10*3/uL 1.88-7.09 H IMM GRAN x10^3 (test code = [id number]) 0.06 10*3/uL 0-0.06 LYMPH x10^3 (test code = 731-0) 2.50 10*3/uL 1.32-3.29 MONO x10^3 (test code = 742-7) 1.25 10*3/uL 0.33-0.92 H EOS x10^3 (test code = 711-2) 0.05 10*3/uL 0.03-0.39 BASO x10^3 (test code = 704-7) 0.03 10*3/uL 0.01-0.07 Lab Interpretation (test code = 86167-3) Abnormal [facility] URINALYSIS W/O SPECIFIC [id number] 15:58:00* Test Item Value Reference Range Interpretation [...] = 3257) n/a Negative - Negati ve [facility] URINALYSIS W/O SPECIFIC [id number] 18:13:00* Test Item Value Reference Range Interpretation [...] = 3257) n/a Negative - Negati ve [facility] URINALYSIS W/O SPECIFIC [id number] 14:00:00* Test Item Value Reference Range Interpretation [...] = 3257) n/a Negative - Negati ve [facility] URINALYSIS W/O SPECIFIC [id number] 15:56:00* Test Item Value Reference Range Interpretation [...] = 3257) n/a Negative - Negati ve [facility] URINALYSIS W/O SPECIFIC [id number] 19:19:00* Test Item Value Reference Range Interpretation [...] = 3257) n/a Negative - Negati ve [facility] URINALYSIS W/O SPECIFIC [id number] 18:31:00* Test Item Value Reference Range Interpretation [...] = 3257) N/A Negative - Negati ve [facility] URINALYSIS W/O SPECIFIC [id number] 20:41:00* Test Item Value Reference Range Interpretation [...] = 3257) n/a Negative - Negati ve [facility] URINALYSIS W/O SPECIFIC [id number] 18:15:00* Test Item Value Reference Range Interpretation [...] = 3257) N/A Negative - Negati ve [facility] URINALYSIS W/O SPECIFIC [id number] 19:44:00* Test Item Value Reference Range Interpretation [...] = 3257) n/a Negative - [facility] [id number] 19:43:00* Test Item Value Reference Range Interpretation Comme nts POCT PREG (test code = 1605) Positive On board controls acceptable with C Line (test code = 3574) Yes POCT PREG LOT # (test code = 3575) POCT PREG TEST DATE ( test code = 3576) [facility]2021-09-25 10:38:19* Test Item Value Reference Range Interpretation Comme nts MAGNESIUM (test code = 7206868651) 1.8 mg/dL 1.7-2.4 Lab Interpretation (test cod e = 77035-8) Normal [facility]2021-09-25 10:38:19* Test Item Value Reference Range Interpretation Comme nts MAGNESIUM (test code = 7739508438) 1.8 mg/dL 1.7-2.4 Lab Interpretation (test cod e = 55220-0) Normal [facility] METABOLIC PANEL (NA, K, CL, CO2, GLUCOSE, BUN, CREATININE, CA)2021-01-14 10:38:18* Test Item Value Reference Range Interpretation Comme nts NA (test code = 0389703921) 139 mmol/L 135-145 K (test code = 1642835192) 4.2 mmol/L 3.5-5.0 CL (test code = 9390387425) 106 mmol/L 98-108 CO2 TOTAL (test code = 2023928907) 27 mmol/L 23-31 AGAP (test code = 7522617115) 2-16 BUN (test code = 5789440776) 8 mg/dL 7-23 GLUCOSE (test code = 4498897848) 103 mg/dL 70-110 CREATININE (test code = 4831212032) 0.61 mg/dL 0.50-1.04 CALCIUM (test code = 3810891263) 9.1 mg/dL 8.6-10.6 eGFR (test code = 0804691483) mL/min/1.73m2 ZAYRA (test code = ZAYRA) Association [...] or urine or abnormalities in imaging tests). [facility] METABOLIC PANEL (NA, K, CL, CO2, GLUCOSE, BUN, CREATININE, CA)2021-01-14 10:38:18* Test Item Value Reference Range Interpretation Comme nts NA (test code = 8341652225) 139 mmol/L 135-145 K (test code = 5317513155) 4.2 mmol/L 3.5-5.0 CL (test code = 6914458691) 106 mmol/L 98-108 CO2 TOTAL (test code = 3668606086) 27 mmol/L 23-31 AGAP (test code = 1133585369) 2-16 BUN (test code = 4400035695) 8 mg/dL 7-23 GLUCOSE (test code = 1346457572) 103 mg/dL 70-110 CREATININE (test code = 5833382000) 0.61 mg/dL 0.50-1.04 CALCIUM (test code = 3951218475) 9.1 mg/dL 8.6-10.6 eGFR (test code = 6809524118) mL/min/1.73m2 ZAYRA (test code = ZAYRA) Association [...] or urine or abnormalities in imaging tests). [facility] WITH [id number] 09:44:09* Test Item Value Reference Range Interpretation Comme nts WBC (test code = 6690-2) See_Comment [Automated [employer]] The system which generated this result transmitted reference range: 4.30 - 11.10 10*3/?L. The reference range was not used to interpret this result as normal/abnormal. RBC (test code = 789-8) See_Comment [Automated [employer]] The system which generated this result transmitted [...] 32.9 g/dL 31.6-35.1 RDW-SD (test code = 52197-7) 42.0 fL 39.0-49.9 RDW-CV (test code = 788-0) 12.8 % 12.0-15.5 PLT (test code = 777-3) See_Comment [Automated messa ge] The system which generated this result transmitted reference range: 166 - 358 10*3/?L. The reference range was not used to interpret this result as normal/abnormal. MPV (test code = 19373-5) 9.9 fL 9.5-12.9 NRBC/100 WBC (test code = 9943505177) See_Comment [Automated [address] ssage] The system which generated this result transmitted reference range: 0.0 - 10.0 /100 WBCs. The reference range was not used to interpret this result as normal/abnormal. NRBC x10^3 (test code = 7592010603) <0.01 See_Comment [Automated messa ge] The system which generated this result transmitted reference range: 10*3/?L. The reference range was not used to interpret this result as normal/abnormal. GRAN MAT (NEUT) % (test code = 770-8) 43.4 % IMM GRAN % (test code = 0151647423) 0.30 % LYMPH % (test code = 736-9) 45.6 % MONO % (test code = 5905-5) 8.4 % EOS % (test code = 713-8) 1.9 % BASO % (test code = 706-2) 0.4 % GRAN MAT x10^3(ANC) (test code = 3309581871) 3.14 10*3/uL 1.88-7.09 IMM GRAN x10^3 (test code = 7964170027) <0.03 0.00-0.06 LYMPH x10^3 (test code = 731-0) 3.30 10*3/uL 1.32-3.29 H MONO x10^3 (test code = 742-7) 0.61 10*3/uL 0.33-0.92 EOS x10^3 (test code = 711-2) 0.14 10*3/uL 0.03-0.39 BASO x10^3 (test code = 704-7) 0.03 10*3/uL 0.01-0.07 Lab Interpretation (test code = 79900-7) Abnormal [facility] WITH [id number] 09:44:09* Test Item Value Reference Range Interpretation [...] 32.9 g/dL 31.6-35.1 RDW-SD (test code = 02253-9) 42.0 fL 39.0-49.9 RDW-CV (test code = 788-0) 12.8 % 12.0-15.5 PLT (test code = 777-3) See_Comment [Automated messa ge] The system which generated this result transmitted reference range: 166 - 358 10*3/?L. The reference range was not used to interpret this result as normal/abnormal. MPV (test code = 35960-9) 9.9 fL 9.5-12.9 NRBC/100 WBC (test code = 7370152514) See_Comment [Automated [address] ssage] The system which generated this result transmitted reference range: 0.0 - 10.0 /100 WBCs. The reference range was not used to interpret this result as normal/abnormal. NRBC x10^3 (test code = 4926478261) <0.01 See_Comment [Automated messa ge] The system which generated this result transmitted reference range: 10*3/?L. The reference range was not used to interpret this result as normal/abnormal. GRAN MAT (NEUT) % (test code = 770-8) 43.4 % IMM GRAN % (test code = 3992521404) 0.30 % LYMPH % (test code = 736-9) 45.6 % MONO % (test code = 5905-5) 8.4 % EOS % (test code = 713-8) 1.9 % BASO % (test code = 706-2) 0.4 % GRAN MAT x10^3(ANC) (test code = 1476047337) 3.14 10*3/uL 1.88-7.09 IMM GRAN x10^3 (test code = 2900266344) <0.03 0.00-0.06 LYMPH x10^3 (test code = 731-0) 3.30 10*3/uL 1.32-3.29 H MONO x10^3 (test code = 742-7) 0.61 10*3/uL 0.33-0.92 EOS x10^3 (test code = 711-2) 0.14 10*3/uL 0.03-0.39 BASO x10^3 (test code = 704-7) 0.03 10*3/uL 0.01-0.07 Lab Interpretation (test code = 80235-4) [facility] [id number] 19:19:17* Test Item Value Reference Range Interpretation Comme nts PROTIME PATIENT (test code = 5964-2) See_Comment H [Automated messa ge] The system which generated this result transmitted reference range: 10.1 - 12.6 Seconds. The reference range was not used to interpret this result as normal/abnormal. INR (test code = 6301-6) Normal INR <1.1; Warfarin Therapeutic range 2.0 to 3.0 or 2.5 to 3.5, depending upon the indications. Lab Interpretation (test code = 62301-0) [facility] [id number] 19:19:17* Test Item Value Reference Range Interpretation Comme nts PROTIME PATIENT (test code = 5964-2) See_Comment H [Automated messa ge] The system which generated this result transmitted reference range: 10.1 - 12.6 Seconds. The reference range was not used to interpret this result as normal/abnormal. INR (test code = 6301-6) Normal INR <1.1; Warfarin Therapeutic range 2.0 to 3.0 or 2.5 to 3.5, depending upon the indications. Lab Interpretation (test code = 47325-1) [facility] [id number] 10:00:07* Test Item Value Reference Range Interpretation Comme nts APTT Patient (test code = 3173-2) See_Comment [Automated messa ge] The system which generated this result transmitted reference range: 26 - 36 Seconds. The reference range was not used to interpret this result as normal/abnormal. Lab Interpretation (test code = 80053-8) [facility] [id number] 10:00:07* Test Item Value Reference Range Interpretation Comme nts APTT Patient (test code = 3173-2) See_Comment [Automated messa ge] The system which generated this result transmitted reference range: 26 - 36 Seconds. The reference range was not used to interpret this result as normal/abnormal. Lab Interpretation (test code = 11891-2) Normal [facility] / [id number] 10:00:06* Test Item Value Reference Range Interpretation Comme nts PROTIME PATIENT (test code = 5964-2) See_Comment H [Automated messa ge] The system which generated this result transmitted reference range: 10.1 - 12.6 Seconds. The reference range was not used to interpret this result as normal/abnormal. INR (test code = 6301-6) Normal INR <1.1; Warfarin Therapeutic range 2.0 to 3.0 or 2.5 to 3.5, depending upon the indications. Lab Interpretation (test code = 18405-2) Abnormal [facility] [id number] 07:01:50* Test Item Value Reference Range Interpretation Comments TROPONIN I (test code = 2410454600) 0.000 ng/mL See_Comment [Automated message] The system [...] of biotin. Lab Interpretation (test code = 49903-3) Normal [facility] [id number] 07:01:50* Test Item Value Reference Range Interpretation Comments TROPONIN I (test code = 7989239570) 0.000 ng/mL See_Comment [Automated message] The system [...] of biotin. Lab Interpretation (test code = 62516-5) [facility] 06:23:04* Test Item Value Reference Range Interpretation Comme nts MAGNESIUM (test code = 7894003309) 1.8 mg/dL 1.7-2.4 Lab Interpretation (test cod e = 91330-0) [facility] [id number] 05:05:49* Test Item Value Reference Range Interpretation Comme nts WBC (test code = 6690-2) See_Comment H [Automated messa ge] The system [...] 32.9 g/dL 31.6-35.1 RDW-SD (test code = 58487-6) 41.5 fL 39.0-49.9 RDW-CV (test code = 788-0) 12.8 % 12.0-15.5 PLT (test code = 777-3) See_Comment [Automated messa ge] The system which generated this result transmitted reference range: 166 - 358 10*3/?L. The reference range was not used to interpret this result as normal/abnormal. MPV (test code = 08915-5) 9.9 fL 9.5-12.9 NRBC/100 WBC (test code = 8431810302) See_Comment [Automated [address] ssage] The system which generated this result transmitted reference range: 0.0 - 10.0 /100 WBCs. The reference range was not used to interpret this result as normal/abnormal. NRBC x10^3 (test code = 4948183187) <0.01 See_Comment [Automated messa ge] The system which generated this result transmitted reference range: 10*3/?L. The reference range was not used to interpret this result as normal/abnormal. GRAN MAT (NEUT) % (test code = 770-8) 44.8 % IMM GRAN % (test code = 5579393468) 0.20 % LYMPH % (test code = 736-9) 45.7 % MONO % (test code = 5905-5) 7.8 % EOS % (test code = 713-8) 1.2 % BASO % (test code = 706-2) 0.3 % GRAN MAT x10^3(ANC) (test code = 3328451156) 5.32 10*3/uL 1.88-7.09 IMM GRAN x10^3 (test code = 6933356860) <0.03 0.00-0.06 LYMPH x10^3 (test code = 731-0) 5.41 10*3/uL 1.32-3.29 H MONO x10^3 (test code = 742-7) 0.93 10*3/uL 0.33-0.92 H EOS x10^3 (test code = 711-2) 0.14 10*3/uL 0.03-0.39 BASO x10^3 (test code = 704-7) 0.03 10*3/uL 0.01-0.07 Lab Interpretation (test code = 57582-2) [facility]OL[facility] ([id number])2021-01-13 04:51:47* Test Item Value Reference Range Interpretation Comme nts NA (test code = 0549832336) 142 mmol/L 135-145 K (test code = 3599197345) 4.1 mmol/L 3.5-5.0 CL (test code = 9725526598) 103 mmol/L 98-108 CO2 TOTAL (test code = 8007251109) 28 mmol/L 23-31 AGAP (test code = 5622168526) 2-16 BUN (test code = 4418254841) 8 mg/dL 7-23 GLUCOSE (test code = 5465379388) 100 mg/dL 70-110 CREATININE (test code = 2756634406) 0.67 mg/dL 0.50-1.04 TOTAL BILI (test code = 5140596062) 0.9 mg/dL 0.1-1.1 CALCIUM (test code = 4607777947) 9.8 mg/dL 8.6-10.6 T PROTEIN (test code = 9914333071) 7.9 g/dL 6.3-8.2 ALBUMIN (test code = 3383948157) 4.6 g/dL 3.5-5.0 ALK PHOS (test code = 8810902644) 81 U/L 34-122 ALTv (test code = 1742-6) 14 U/L 5-35 AST(SGOT) (test code = 4905949777) 18 U/L 13-40 eGFR (test code = 1846750887) mL/min/1.73m2 ZAYRA (test code = ZAYRA) Association [...] or urine or abnormalities in imaging tests). [facility]. METABOLIC PANEL (35489)2021-01-13 04:51:47* Test Item Value Reference Range Interpretation Comme nts NA (test code = 5463547032) 142 mmol/L 135-145 K (test code = 6749428741) 4.1 mmol/L 3.5-5.0 CL (test code = 4018900444) 103 mmol/L 98-108 CO2 TOTAL (test code = 8592107452) 28 mmol/L 23-31 AGAP (test code = 4726737978) 2-16 BUN (test code = 6624462737) 8 mg/dL 7-23 GLUCOSE (test code = 7067571953) 100 mg/dL 70-110 CREATININE (test code = 7520565535) 0.67 mg/dL 0.50-1.04 TOTAL BILI (test code = 0867117983) 0.9 mg/dL 0.1-1.1 CALCIUM (test code = 6080767272) 9.8 mg/dL 8.6-10.6 T PROTEIN (test code = 0625105460) 7.9 g/dL 6.3-8.2 ALBUMIN (test code = 9695860971) 4.6 g/dL 3.5-5.0 ALK PHOS (test code = 4661780722) 81 U/L 34-122 ALTv (test code = 1742-6) 14 U/L 5-35 AST(SGOT) (test code = 7731284211) 18 U/L 13-40 eGFR (test code = 6362425960) mL/min/1.73m2 ZAYRA (test code = ZAYRA) Association [...] or urine or abnormalities in imaging tests). [facility] [id number] 07:22:00* Test Item Value Reference Range Interpretation Comme nts POCT PREG (test code = 1605) Negative On board controls acceptable with C Line (test code = 3574) Present POCT PREG LOT # (test code = 3575) [id number] POCT PREG TEST DATE ( test code = 3576) 04/21/2022 Lab Interpretation (test cod e = 50208-6) Normal [facility]"
[2023-05-04 01:18] LABS: Absolute Lymphocytes (CBC) 3.3 K/uL (0.7-4.9); Hematocrit 38.9 % (36.0-45.0); Lymphocytes % 26.3 % (15.3-44.8); MPV 8.3 fL (7.6-11.3); Platelets 333 thou/uL (152-406); RBC Red Blood Cell Count 4.69 M/uL (3.86-4.86)
[2023-05-04 01:31] LABS: Specific Gravity 1.007 (1.005-1.030); Specific Gravity 1.008 (1.005-1.030); Urine Bacteria <20 /HPF (<20); Urine Bilirubin NEGATIVE (Negative); Urine Blood Negative (Negative); Urine Clarity Turbid (Clear); Urine Color Colorless (Yellow); Urine Glucose NEGATIVE (Negative); Urine Mucus Slight /HPF (None Seen); Urine Protein NEGATIVE (Negative); Urine RBC <5 /HPF (None Seen); Urine Urobilinogen Normal (Normal)
[2023-05-04 01:50] LABS: ALT/SGPT 17 U/L (13-56); AST/SGOT 7 U/L (15-37); Albumin 3.9 g/dL (3.4-5.0); Alkaline Phosphatase 108 U/L (45-117); BUN Blood Urea Nitrogen 11 mg/dL (7-18); Bicarbonate 26 mEq/L (21-32); Bilirubin Direct 0.2 mg/dL (0-0.2); Bilirubin Total 1.2 mg/dL (0.2-1.0); Glomerular Filtration Rate 125 ml/min (=/>90); Glucose Level 116 mg/dL (74-106); Magnesium 1.8 mg/dL (1.6-2.4); NT PRO-BNP 10 pg/mL (<125); Potassium 3.5 mEq/L (3.5-5.1); Protein, Total 8.1 g/dL (6.4-8.2); Sodium Level 137 mEq/L (136-145)
[2023-05-04 01:57] LABS: Troponin High Sensitivity < 3.0 pg/mL (<58.9)
--- NOTE | 2023-05-04 03:34 | ER ---
Nurse's Notes [facility] Name: Allie Hedrick Age: 28 yrs Sex: Female : 1995 Arrival Date: 05/03/2023 Time: 23:32 Bed 4 Private MD: Diagnosis: Tachycardia, unspecified;Acute sinus tachycardia, chest discomfort, noncardiac chest pain Presentation: 05/03 23:40 Chief complaint: Patient states: i have AFIB and yesterday i started feeling like my lg3 heart was beating really fast. this morning i woke up feeling weak and this evening i started feeling off like my BP was high. Coronavirus screen: Client denies travel out of the [place] in the last 14 days. Ebola Screen: No symptoms or risks identified at this time. Initial Sepsis Screen: Does the patient meet any 2 criteria? No. Patient's initial sepsis screen is negative. Does the patient have a suspected source of infection? No. Patient's initial sepsis screen is negative. Risk Assessment: Do you want to hurt yourself or someone else? Patient reports no desire to harm self or others. Onset of symptoms was May 02, 2023. 23:40 Method Of Arrival: Ambulatory lg3 23:40 Acuity: DUKE 3 lg3 Triage Assessment: 23:42 General: Appears in no apparent distress. comfortable, Behavior is calm, cooperative. lg3 Pain: Denies pain. EENT: No deficits noted. No signs and/or symptoms were reported regarding the EENT system. Neuro: No deficits noted. Simons Agitation-Sedation Scale (RASS): 0 - Alert and Calm Level of Consciousness is awake, alert, obeys commands, Oriented to person, place, time, situation, Reports weakness. Cardiovascular: No deficits noted. Denies chest pain, shortness of breath, Capillary refill < 3 seconds Clubbing of nail beds is absent JVD is absent Patient's skin is warm and dry. Respiratory: No deficits noted. Airway is patent Respiratory effort is even, unlabored, Respiratory pattern is regular, symmetrical. GI: No deficits noted. No signs and/or symptoms were reported involving the gastrointestinal system. : No deficits noted. No signs and/or symptoms were reported regarding the genitourinary system. Derm: No deficits noted. No signs and/or symptoms reported regarding the dermatologic system. Skin is intact, is healthy with good turgor, Skin is dry, Skin is normal, Skin temperature is warm. Musculoskeletal: No deficits noted. No signs and/or symptoms reported regarding the musculoskeletal system. Circulation, motion, and sensation intact. Range of motion: intact in all extremities. 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 Flu vaccine is up to date. - Social history:: Smoking status: Patient denies any tobacco usage or history of. Patient/guardian denies using alcohol, street drugs. - Family history:: not pertinent. Screenin/13 00:22 [facility] ED Fall Risk Assessment (Adult) History of falling in the last 3 months, nw1 including since admission No falls in past 3 months (0 pts) Confusion or Disorientation No (0 pts) Intoxicated or Sedated No (0 pts). Abuse screen: Denies threats or abuse. Denies injuries from another. Nutritional screening: No deficits noted. Tuberculosis screening: No symptoms or risk factors identified. Assessment: 00:28 Reassessment: Pt up to restroom to give urine sample. Pt states history of afib and nw1 states that she was feeling her "heart races as if she was going back into a fib". No noted a fib on monitor or EKG. ST noted at this time. Pt noted stable at this time and 0 s/s of acute distress noted at this time. Family at bedside. Call light in reach. Pt denies needs/wants at this time. VSS. Will continue to monitor. General: Appears in no apparent distress. comfortable, Behavior is calm, cooperative, appropriate for age. Pain: Denies pain. Neuro: No deficits noted. Level of Consciousness is awake, alert, obeys commands, Oriented to person, place, time, situation, Appropriate for age. Cardiovascular: Heart tones present Rhythm is sinus tachycardia Parent/caregiver reports patient has had lightheadedness, palpitations. GI: No signs and/or symptoms were reported involving the gastrointestinal system. Abdomen is non-distended, obese, Bowel sounds present X 4 quads. Vital Signs: 05/03 23:40 BP 135 / 98; Pulse 103; Resp 17 S; Temp 98.4(O); Pulse Ox 100% on R/A; Weight 95.25 kg lg3 (R); Height 5 ft. 5 in. (R); 05/04 00:22 BP 141 / 95; Pulse 107; Resp 17; Pulse Ox 99% on R/A; nw1 03:00 BP 136 / 82; Pulse 67; Resp 14; Pulse Ox 100% ; Pain 0/10; nw1 05/03 23:40 Body Mass Index 34.95 (95.25 kg, 165.1 cm) lg3 03:00 Pain Scale: Adult nw1 Cantil Coma Score: 00:22 Eye Response: spontaneous(4). Motor Response: obeys commands(6). Verbal Response: nw1 oriented(5). Total: 15. ED Course: 05/03 23:36 Patient arrived in ED. ag3 23:39 Ezio River MD is Attending Physician. sp4 23:42 Triage completed. lg3 23:42 Arm band placed on right wrist. lg3 23:59 Bianca Romeo, SHANNAN is Primary Nurse. nw1 05/04 00:22 Patient has correct armband on for positive identification. Placed in gown. Bed in low nw1 position. Call light in reach. Side rails up X2. Adult w/ patient. Provided Education on: POC. 00:22 No provider procedures requiring assistance completed. Inserted saline lock: 20 gauge nw1 in left antecubital area, using aseptic technique. Blood collected. 00:24 Chest Single View XRAY In Process Unspecified. EDMS 00:27 Basic Metabolic Panel Sent. nw1 00:27 CBC with Diff Sent. nw1 00:27 LFT's Sent. nw1 00:27 Magnesium Sent. nw1 00:27 NT PRO-BNP Sent. nw1 00:27 Troponin HS Sent. nw1 00:27 Influenza Screen (a \\T\\ B) Sent. nw1 00:27 COVID-19 SARS RT PCR Sent. nw1 00:47 Client placed on continuous cardiac and pulse oximetry monitoring. NIBP monitoring nw1 applied. quality assurance monitor chassis on. Pulse ox on. NIBP on. Door closed. Lights dimmed. Warm blanket given. 03:20 EKG done, by ED staff, reviewed by Ezio River MD. 03:32 Adrián Casiano MD is Referral Physician. sp4 03:41 IV discontinued, intact, bleeding controlled, No redness/swelling at site. Pressure nw1 dressing applied. Administered Medications: 00:27 Drug: NS 0.9% IV 1000 ml IV at 1 bolus Per protocol; 1000 mL bolus Route: IV; Rate: 1 nw1 bolus; Site: left antecubital; 00:27 Drug: LORazepam PO 1 mg PO once Route: PO; nw1 00:45 Drug: Metoprolol PO 50 mg PO once Route: PO; nw1 Medication: 00:22 VIS not applicable for this client. nw1 Outcome: 03:33 Discharge ordered by . sp4 03:41 Discharged to home ambulatory, nw1 03:41 Condition: stable 03:41 Discharge instructions given to patient, Instructed on discharge instructions, follow up and referral plans. medication usage, Demonstrated understanding of instructions, follow-up care, medications, Prescriptions given X 1, 03:52 Patient left the ED. nw1 Signatures: Dispatcher [employer] EDMS Christina Roberts 3 Camilla Carney, RN RN [email or web address] Melissa Razo Sergey, MD MD sp4 Bianca Romeo, RN RN nw1 Corrections: (The following items were deleted from the chart) 00:50 00:28 Reassessment: Pt up to restroom to give urine sample nw1 nw1 00:50 00:28 Cardiovascular: Heart tones present Rhythm is sinus tachycardia Parent/caregiver nw1 reports patient has had lightheadedness, palpitations, nw1 : 00:27 T4 FREE+C.LAB.BRZ drawn and sent. nw1 EDMS : 00:27 THYROID STIMULAT HORMONE+C.LAB.BRZ drawn and sent. nw1 EDMS
--- NOTE | 2023-05-04 03:34 | EDPHYS ---
Physician Documentation [facility] Name: Allie Hedrick Age: 28 yrs Sex: Female : 1995 Arrival Date: 05/03/2023 Time: 23:32 Bed 4 Private MD: ED Physician Ezio River HPI: 05/03 23:39 This 28 yrs old Female presents to ER via Unassigned with complaints of High sp4 Blood Pressure. 05/04 00:20 28-year-old female with history of atrial fibrillation at the age of 18 presents with sp4 acute onset of rapid heart rate, elevated blood pressure, she has discomfort starting yesterday.. Patient reports she is not on any medications, and reports no drug use. Reports racing heart rate, chest tightness, feeling unwell.. 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 Flu vaccine is up to date. - Social history:: Smoking status: Patient denies any tobacco usage or history of. Patient/guardian denies using alcohol, street drugs. - Family history:: not pertinent. ROS: 05/04 00:20 Constitutional: Negative for fever, chills, and weight loss, positive chest discomfort, sp4 positive rapid heart rate, positive elevated blood pressure, positive feeling unwell All other systems are negative, Exam: 00:20 Constitutional: This is a well developed, well nourished patient who is awake, alert, sp4 and in no acute distress. Patient is appearing female, tachycardic Head/Face: Normocephalic, atraumatic. Eyes: Pupils equal round and reactive to light, extra-ocular motions intact. Lids and lashes normal. Conjunctiva and sclera are not injected. Cornea within normal limits. Periorbital areas with no swelling, redness, or edema. ENT: Nares patent. No nasal discharge, no septal abnormalities noted. Tympanic membranes are normal and external auditory canals are clear. Oropharynx with no redness, swelling, or masses, exudates, or evidence of obstruction, uvula midline. Mucous membranes moist. Neck: Trachea midline, no thyromegaly or masses palpated, and no cervical lymphadenopathy. Supple, full range of motion without nuchal rigidity, or vertebral point tenderness. Chest/axilla: Normal chest wall appearance and motion. Nontender with no deformity. No lesions are appreciated. Cardiovascular: Positive tachycardia, regular tachycardia, no gallops, murmurs, or rubs. Normal PMI, no JVD. No pulse deficits. Respiratory: Lungs have equal breath sounds bilaterally, clear to auscultation and percussion. No rales, rhonchi or wheezes noted. No increased work of breathing, no retractions or nasal flaring. Abdomen/GI: Soft, non-tender, with normal bowel sounds. No distension or tympany. No guarding or rebound. No evidence of tenderness throughout. Back: No spinal tenderness. No costovertebral tenderness. There is sacral decubitus ulcer that is covered by the wound VAC. Skin: Warm, dry with normal turgor. Normal color with no rashes, no lesions, and no evidence of cellulitis. MS/ Extremity: Pulses equal, no cyanosis. Neurovascular intact. Full, normal range of motion. Neuro: Awake and alert, GCS 15, oriented to person, place, time, and situation. Cranial nerves II-XII grossly intact. Motor strength 5/5 in all extremities. Sensory grossly intact. Psych: Awake, alert, with orientation to person, place and time. Behavior, mood, and affect are within normal limits anxious appearing 00:20 ECG was reviewed by the Attending Physician. EKG time 0014, sinus tachycardia at a rate of 111, no ST elevation or depression. 03:31 Repeat EKG at 0 316 after metoprolol and Ativan p.o., there is normal sinus rhythm with sp4 sinus arrhythmia at the rate of 74. No ST elevation or depression. No ectopy. Overall unremarkable EKG. Vital Signs: 05/03 23:40 BP 135 / 98; Pulse 103; Resp 17 S; Temp 98.4(O); Pulse Ox 100% on R/A; Weight 95.25 kg lg3 (R); Height 5 ft. 5 in. (R); 05/04 00:22 BP 141 / 95; Pulse 107; Resp 17; Pulse Ox 99% on R/A; nw1 03:00 BP 136 / 82; Pulse 67; Resp 14; Pulse Ox 100% ; Pain 0/10; nw1 05/03 23:40 Body Mass Index 34.95 (95.25 kg, 165.1 cm) lg3 03:00 Pain Scale: Adult nw1 Carlos Coma Score: 00:22 Eye Response: spontaneous(4). Motor Response: obeys commands(6). Verbal Response: nw1 oriented(5). Total: 15. MDM: 05/03 23:42 Patient medically screened. 4 05/04 02:11 ED course: EXAM: XR Chest, 1 View CLINICAL HISTORY: The patient is 28 years old and is sp4 Female; CHEST PAIN TECHNIQUE: Frontal view of the chest. COMPARISON: No relevant prior studies available. FINDINGS: Lungs: Unremarkable. No consolidation. Pleural space: Unremarkable. No pneumothorax. Heart: Unremarkable. Mediastinum: Unremarkable. Normal mediastinal contour. Bones/joints: No acute findings. IMPRESSION: No acute findings in the chest. . 03:31 Differential diagnosis: hypertensive crisis, Atrial fibrillation, SVT, other sp4 arrhythmia. Data reviewed: vital signs, nurses notes, old medical records, lab test result(s), EKG, radiologic studies, plain films. Consideration of Admission/Observation Escalation of care including admission/observation considered. ED course: Patient heart rate has improved from 120 down to 74 after p.o. metoprolol and p.o. Ativan. Repeat EKGs basically normal except sinus arrhythmia. 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 Casiano for outpatient echocardiogram and Holter monitor. . 05/03 23:39 Order name: Basic Metabolic Panel; Complete Time: 02:10 [facility] 05/03 23:39 Order name: CBC with Diff; Complete Time: 01:33 4 05/03 23:39 Order name: LFT's; Complete Time: 02:10 4 05/03 23:39 Order name: Magnesium; Complete Time: 02:10 4 05/03 23:39 Order name: NT PRO-BNP; Complete Time: 02:10 [facility] 05/03 23:39 Order name: Troponin HS; Complete Time: 02:10 [facility] 05/03 23:39 Order name: Test, Urine; Complete Time: 01:33 sp4 05/03 23:40 Order name: Urinalysis W/Microscopic; Complete Time: :33 sp4 05/03 23:57 Order name: COVID-19 SARS RT PCR; Complete Time: 02:10 sp4 05/03 23:57 Order name: Influenza Screen (a \T\ B); Complete Time: 02:10 sp4 05/04 01:08 Order name: T4 Free; Complete Time: 02:10 EDMS 05/04 01:08 Order name: Thyroid Stimulating Hormone; Complete Time: 02:10 EDMS 05/03 23:56 Order name: Chest Single View XRAY sp4 05/03 23:39 Order name: EKG; Complete Time: 23:39 [facility] 05/03 23:39 Order name: Cardiac monitoring; Complete Time: 00:27 4 05/03 23:39 Order name: EKG - Nurse/Tech; Complete Time: 00: 4 05/03 23:39 Order name: IV Saline Lock; Complete Time: 00: 4 05/03 23:39 Order name: Labs collected and sent; Complete Time: 00: sp4 05/03 23:39 Order name: O2 Per Protocol; Complete Time: 00: 4 05/03 23:39 Order name: O2 Sat Monitoring; Complete Time: 00:05/04 02:12 Order name: EKG - Nurse/Tech; Complete Time: 03:20 lg3 EC:20 Rate is 111 beats/min. Rhythm is regular, Sinus tachycardia. QRS [place] is Normal. CO sp4 interval is normal. QRS interval is normal. QT interval is normal. No Q waves. T waves are Normal. No ST changes noted. Clinical impression: No evidence of ischemia. Interpreted by me. Reviewed by me. Administered Medications: 00:27 Drug: NS 0.9% IV 1000 ml IV at 1 bolus Per protocol; 1000 mL bolus Route: IV; Rate: 1 nw1 bolus; Site: left antecubital; 00:27 Drug: LORazepam PO 1 mg PO once Route: PO; nw1 00:45 Drug: Metoprolol PO 50 mg PO once Route: PO; nw1 Disposition Summary: 05/04/23 03:33 Discharge Ordered Problem: new sp4 Symptoms: have improved sp4 Condition: Stable sp4 Diagnosis - Tachycardia, unspecified sp4 - Acute sinus tachycardia, chest discomfort, noncardiac chest pain sp4 Followup: sp4 - With: Adrián Casiano MD - When: 7 - 10 days - Reason: Recheck today's complaints Discharge Instructions: - Discharge Summary Sheet sp4 - Sinus Tachycardia sp4 Forms: - Patient Portal Instructions sp4 - Work release form nw1 Prescriptions: - metoprolol succinate 50 mg Oral Tablet, Extended Release 24 hr - take 1 tablet ORAL route daily; 30 tablet; Refills: 0, Product Selection sp4 Permitted Signatures: Dispatcher [employer] EDMS Camilla Carney RN RN lg3 Ezio River MD MD sp4 Bianca Romeo RN RN nw1 Corrections: (The following items were deleted from the chart) 01:09 00:24 THYROID STIMULAT HORMONE+C.LAB.BRZ ordered. EDMS EDMS 01:09 00:24 T4 FREE+C.LAB.BRZ ordered. EDMS EDMS
[2023-05-04 07:17] VITALS: BP 135/98; TEMP 98.4; O2SAT 100
--- NOTE | 2023-05-04 18:25 | RAD REPORT ---
EXAM DESCRIPTION: XR Chest, 1 View CLINICAL HISTORY: The patient is 28 years old and is Female; CHEST PAIN TECHNIQUE: Frontal view of the chest. COMPARISON: No relevant prior studies available. FINDINGS: Lungs: Unremarkable. No consolidation. Pleural space: Unremarkable. No pneumothorax. Heart: Unremarkable. Mediastinum: Unremarkable. Normal mediastinal contour. Bones/joints: No acute findings. IMPRESSION: No acute findings in the chest. Electronically signed by: Munir Vinson MD 05/04/2023 01:36 AM STEAM FITTER HELPER Due to temporary technical issues with the PACS/Fluency reporting system, reports are being signed by the in house radiologists without review as a courtesy to insure prompt reporting. The interpreting radiologist is fully responsible for the content of the report.
--- NOTE | 2023-05-06 17:05 | EKG ---
Test Date: 2023-05-04 Test Time: 00:14:26 Excavator Operator: SURESH MEASUREMENT RESULTS: Intervals: Rate: 111 NH: 182 QRSD: 86 QT: 328 QTc: 446 [place]: P: 59 NH: 182 QRS: 47 T: 53 INTERPRETIVE STATEMENTS: Sinus tachycardia Otherwise normal ECG No previous ECG available for comparison Electronically Signed On 05-06-23 16:59:22 [employer] MACHINE OPERATOR by Adrián Casiano
== END ==
LOC: ER 23:32
DX: R07.89 Other chest pain (principal); R00.0 Tachycardia, unspecified; Z11.52 Encounter for screening for COVID-19
CPT/HCPCS: 36415; 71045; 80048; 80076; 81001; 81025; 83735; 83880; 84439; 84443; 84484; 85025; 87635; 87804; 93005; 99285

== ENCOUNTER 2023-12-21 00:41 | Emergency (ER) | payer OTHER, SELFPAY ==
--- OUTSIDE RECORDS SUMMARY | 2023-12-21 01:02 | XMS REPORT | Continuity of Care Document ---
Author Name Unknown Address [address] [facility] [address]. [address] [place] [address] [facility] Address [address] [facility] [place] [address] Care Team Providers Care Bankruptcy Attorney Name Role Phone SAMMY JI Primary Care Physician Unavailab DR SAMMY Hodges Attending Clinician Unavailable [id number] Attending Clinician Unavailable [id number] Attending Clinician Unavailable Gabriele Houston Attending Clinician Unavailable ALLIE ROY Attending Clinician Unavailable Lab, Ang - Db Attending Clinician Unavailable Anna Nicholas Attending Clinician [phone] ANNA HEARN Attending Clinician Unavailable Doctor Unassigned, [employer] Attending Clinician U navailable SHEILA ORTA Attending Clinician Unavailable ALVERTO OLIVARES Attending Clinician Unavailable SONJA EASTMAN Attending Clinician Unavailable ABHINAV HUANG Attending Clinician Unavailable Sheila Orta MD Attending Clinician [phone] Sonja Roberts Attending Clinician [phone] HOUSTON DEXTER Attending Clinician Unavailable SAIDA LAGUNA Attending Clinician Unavailable Saida Laguna MD Attending Clinician +[phone] CARMELA BRENNAN Attending Clinician Unavailable CARMELA BRENNAN Attending Clinician Unavailable Clinic, Gastroenterology Attending Clinician + [phone] CAITY PEDRAZA Attending Clinician Unavailab Abdirashid Connell DO Attending Clinician +[phone] Caity Pedraza MD Attending Clinician + [phone] Alverto Olivares MD Attending Clinician +[phone] Annelise Brown MA Attending Clinician UnavailCOSME Borrego Attending Clinician Unavailable [facility] Attending Clinician Unayves tay [phone] Attending Clinician Unavailable N Attending Clinician Unavailable GLORIA JONES Attending Clinician UnavailGLORIA Magaña Attending Clinician UnavailCosme Borrego PA-C Attending Clinician [phone] Anna Morales Attending Clinician +[phone] Lisa Garcia PhD Attending Clinician + [phone] LISA GARCIA Attending Clinician Unavailab le 1, [employer] Attending Clinician Noemi ELLIOT Reyonso Attending Clinician Unavailable MAGALYS LACEY Attending Clinician Unavailable Magalys Lacey MD Attending Clinician +[phone] TRACY WHEELER Attending Clinician Unavailable Summer MD, Tracy Attending Clinician [phone] Bryanna ACUNA, Elliot Floyd Attending Clinician +[phone] KIRAN SCALES Attending Clinician Unavailable Kiran Scales MD Attending Clinician [phone] SHARI DIAMOND Attending Clinician Unavailable SONIA MAYBERRY Attending Clinician Unavailable Jefe ACUNA, Sonia Manuel Attending Clinician [phone] 3, [facility] Room Attending Clinician Unavaila Morgan Trinidad MD Attending Clinician [phone] MORGAN GRANDE Attending Clinician Unavailable MORGAN GRANDE Attending Clinician Unavailable Colin Singh Attending Clinician + [phone] Nataliya Clifton Attending Clinician [phone] NOEL COOLEY Attending Clinician Unavailable Noel Cooley MD Attending Clinician [phone] Pob, [facility] Lab Main Attending Clinician UnavailShari Johnson PA-C Attending Clinician [phone] Nurse, [facility] Attending Clinician Un available Lisset Hull RN Attending Clinician Unavail able Ran Arriaza MD Attending Clinician [phone] RAN ARRIAZA Attending Clinician Unavailable RAN ARRIAZA Attending Clinician Unavailable 1, [facility] Room Attending Clinician Unavaila Ever Alvarez DO Attending Clinician [phone] Ultrasound, [facility] Attending Clinician Unavaila Gus Rowe MD Attending Clinician + [phone] GUS SANTAMARIA Attending Clinician Unavaila mellissa 2, [facility] Attending Clinician Unavailable DERRICK CARBONE Attending Clinician Unavaila ble Lisa CAMPBELL, Adele Manuel Attending Clinician Unavail able Emanuel Roberts MD Attending Clinician [phone] Clinic, [facility] Neurology Continuity Attending oBn roberson Unavailable ALPHONSO MEJIA Attending Clinician Unavailotto Miller NP, Coleen Crisostomo Attending Clinician [phone] Melissa Romeo DO Attending Clinician + [phone] ROBY Attending Clinician Unavailable Olivares PAC, Nkechi S Attending Clinician +[phone] Macario Arriaza DO Attending Clinician TAYLOR HILARIO Attending Clinician Bull tay Only, Adc Test Attending Clinician Unavailable DR SAMMY JI Admitting Clinician Unavailable NOEL COOLEY Admitting Clinician Unavailable ELLIOT GOULD Admitting Clinician Unavailable Danyell Arvizu Admitting Clinician Unavailable SONJA EASTMAN Admitting Clinician Unavailable SAIDA LAGUNA Admitting Clinician Unavailable ABDIRASHID SLOAN Admitting Clinician Unavailable DR CYRUS [facility] Admitting Clinician Bull Gould MD, Elliot Floyd Admitting Clinician [phone] ADSONIA PEREZ Admitting Clinician Unavailable Sonia [place] MD Admitting Clinician [phone] Noel Cooley MD Admitting Clinician +[phone] Emanuel Roberts MD Admitting Clinician ROBY Admitting Clinician Unavailable Payers Payer Name Policy Type Policy Number Effective Date Expirati on Date Source BLUE [place] [facility] [id number] [facility]IC [id number] [facility] - OUT OF STATE [id number] 2020 00:00:00 [facility] [id number] 2019 00:00:00 [employer]ET[employer] HMO [id number] 2015 00:00:00 [employer]ETNA (POS) [id number] 2015 00:00:00 2020 00:00:00 Problems Condition Name Condition Details Condition Category Status Onset Date Resolution Date Last Treatment Date Treating Clinician Comments Source Palpitatio ns Palpitatio ns Disease Active 09-12 00:00: 00 [facility] Snores Snores Disease Active 09-12 00:00: 00 [facility] PFO (patent foramen ovale) PFO (patent foramen ovale) Disease Active 09-12 00:00: 00 [facility] Vitamin B6 deficiency Vitamin B6 deficiency Disease Active 2024-0 5-13 00:00: 00 [facility] Anxiety Anxiety Disease Active 5- 00:00: 00 [facility] Sleep difficulti es Sleep difficulti es Disease Active 08-28 00:00: 00 [facility] Epigastric pain Epigastric pain Disease Active 05-11 00:00: 00 [facility] Leukocytos is, unspecifie d type Leukocytos is, unspecifie d type Disease Active 05-11 00:00: 00 [facility] History of anxiety History of anxiety Disease Active 2021-04 00:00: 00 [facility] History of depression History of depression Disease Active 2021-04 00:00: 00 [facility] History of gestationa l hypertensi on History of gestationa l hypertensi on Disease Active 2021-04 00:00: 00 Overview: Formattin g of this note might be different from the original. Added automatic ally from request for surgery [id number] [facility] Headache Headache Disease Active 2021-04 0 00:00: 00 [facility] Placenta previa without hemorrhage , antepartum Placenta previa without hemorrhage , antepartum Disease Active 803 00:00: 00 [facility] Vaginal cyst Vaginal cyst Disease Active 2017-04 00:00: 00 [facility] Obesity (BMI 30-39.9) Obesity (BMI 30-39.9) Disease Active 2017-04 0-05 00:00: 00 [facility] Cold sore Cold sore Disease Active 06-13 00:00: 00 [facility] Nausea Nausea Disease Active 06-13 00:00: 00 [facility] Liveborn , of knight , born in hospital by delivery Liveborn , of knight , born in hospital by delivery Disease Resolve d 2021-04 00:00: 00 2022-03-08 00:00:00 2022-03-08 10:28:05 [facility] Placenta previa without hemorrhage , antepartum Placenta previa without hemorrhage , antepartum Disease Resolve d 2021-0 8-03 00:00: 00 2022-03-08 00:00:00 2022-03-08 10:28:03 [facility] High risk , antepartum High risk , antepartum Disease Resolve d 2021-0 4-12 00:00: 00 2022-03-08 00:00:00 2022-03-08 10:28:01 [facility] 36 weeks gestation of 36 weeks gestation of Disease Resolve d 2017-0 9-05 00:00: 00 2022-03-08 00:00:00 2022-03-08 10:27:59 [facility] 33 weeks gestation of 33 weeks gestation of Disease Resolve d 2021-1 0-14 00:00: 00 2022-02-14 00:00:00 2022-02-14 14:15:07 [facility] IIH (idiopathi c intracrani al hypertensi on) IIH (idiopathi c intracrani al hypertensi on) Disease Resolve d 2020-0 9-23 00:00: 00 2022-02-02 00:00:00 2022-02-02 01:15:04 [facility] Atrial fibrillati on, unspecifie d type Atrial fibrillati on, unspecifie d type Disease Resolve d 2016-0 2-22 00:00: 00 2022-02-02 00:00:00 2022-02-02 01:15:01 [facility] Pre-eclamp radha, mild Pre-eclamp radha, mild Disease Resolve d 2019-0 5-08 00:00: 00 2019-09-24 00:00:00 2019-09-24 15:05:42 [facility] 39 weeks gestation of 39 weeks gestation of Disease Resolve d 2019-0 5-07 00:00: 00 2019-09-24 00:00:00 2019-09-24 14:42:08 [facility] Encounter for elective induction of labor Encounter for elective induction of labor Disease Resolve d 0 5-07 00:00: 00 2019-09-24 00:00:00 2019-09-24 14:42:07 [facility] Elevated BP without diagnosis of hypertensi on Elevated BP without diagnosis of hypertensi on Disease Resolve d 2019-0 5-07 00:00: 00 2019-09-24 00:00:00 2019-09-24 15:05:42 [facility] Liveborn , of knight , born in hospital by vaginal delivery Liveborn infant, of knight , born in hospital by vaginal delivery Disease Resolve d 2016-0 7-29 00:00: 00 2019-09-24 00:00:00 2019-09-24 14:42:11 [facility] High-risk , third trimester High-risk , third trimester Disease Resolve d 2016-0 6-14 00:00: 00 2019-09-24 00:00:00 2019-09-24 14:42:12 [facility] Presence of of 52 mg levonorges trel-relea sing intrauteri ne device (IUD) Presence of of 52 mg levonorges trel-relea sing intrauteri ne device (IUD) Disease Resolve d 2017-04 1-14 00:00: 00 2019-07-14 00:00:00 2019-07-14 08:59:41 [facility] 38 weeks gestation of 38 weeks gestation of Disease Resolve d 2017- 0-05 00:00: 00 2019-07-14 00:00:00 2019-07-14 08:59:33 [facility] Decreased movements in third trimester Decreased movements in third trimester Disease Resolve d 2017-04 0-05 00:00: 00 2019-07-14 00:00:00 2019-07-14 08:59:34 [facility] Antepartum variable decelerati on Antepartum variable decelerati on Disease Resolve d 2017-04 0-05 00:00: 00 2019-07-14 00:00:00 2019-07-14 08:59:40 [facility] Premature uterine contractio ns Premature uterine contractio ns Disease Resolve d 2017-04 0-05 00:00: 00 2019-07-14 00:00:00 2019-07-14 09:00:59 [facility] Insufficie nt weight gain during in third trimester Insufficie nt weight gain during in third trimester Disease Resolve d 2017-0 9-26 00:00: 00 2019-07-14 00:00:00 2019-07-14 08:59:47 [facility] Anemia of mother in , antepartum Anemia of mother in , antepartum Disease Resolve d 2017-0 9-25 00:00: 00 2019-07-14 00:00:00 2019-07-14 09:01:21 [facility] Medication exposure during first trimester of Medication exposure during first trimester of Disease Resolve d 0 2-24 00:00: 00 2019-07-14 00:00:00 2019-07-14 09:01:07 [facility] Heart palpitatio ns Heart palpitatio ns Disease Resolve d 0 9-14 00:00: 00 2018-01-24 00:00:00 2018-01-24 15:48:41 [facility] Vaginal spotting Vaginal spotting Disease Resolve d 12-25 00:00: 00 2018-01-24 00:00:00 2018-01-24 15:48:47 [facility] Vaginal discharge during in third trimester Vaginal discharge during in third trimester Disease Resolve d 12-25 00:00: 00 2018-01-24 00:00:00 2018-01-24 15:48:33 [facility] Urinary tract infection in mother during third trimester of Urinary tract infection in mother during third trimester of Disease Resolve d 12-25 00:00: 00 2018-01-24 00:00:00 2018-01-24 15:48:36 [facility] Insufficie nt care in third trimester Insufficie nt care in third trimester Disease Resolve d 0 8-09 00:00: 00 2018-01-24 00:00:00 2018-01-24 15:47:25 [facility] Round ligament pain Round ligament pain Disease Resolve d 0 4-27 00:00: 00 2018-01-24 00:00:00 2018-01-24 15:47:22 [facility] Oral contracept nadja use Oral contracept nadja use Disease Resolve d 9-14 00:00: 00 2018-01-24 00:00:00 2018-01-24 15:47:18 [facility] uterine contractio ns in third trimester, antepartum uterine contractio ns in third trimester, antepartum Disease Resolve d 18 00:00: 00 2018-01-24 00:00:00 2018-01-24 16:10:22 [facility] Trichomona l vaginitis during in first trimester Trichomona l vaginitis during in first trimester Disease Resolve d 2015-04 00:00: 00 2018-01-24 00:00:00 2018-01-24 15:46:58 [facility] BV (bacterial vaginosis) BV (bacterial vaginosis) Disease Resolve d 2015-04 00:00: 00 2018-01-24 00:00:00 2018-01-24 15:47:01 [facility] Gestationa l hypertensi on, third trimester Gestationa l hypertensi on, third trimester Disease Resolve d 11-15 00:00: 00 2017-12-17 00:00:00 2017-12-17 10:31:08 [facility] Gestationa l hypertensi on Gestationa l hypertensi on Disease Resolve d 11-15 00:00: 00 2017-12-17 00:00:00 2017-12-17 10:30:57 [facility] Elevated blood pressure affecting in third trimester, antepartum Elevated blood pressure affecting in third trimester, antepartum Disease Resolve d 10-03 00:00: 00 2017-12-17 00:00:00 2017-12-17 10:31:03 [facility] 37 weeks gestation of 37 weeks gestation of Disease Resolve d 11-17 00:00: 00 2017-04-08 00:00:00 2017-04-08 12:04:45 [facility] Glucose found in urine on examinatio n Glucose found in urine on examinatio n Disease Resolve d 10-07 00:00: 00 2017-04-08 00:00:00 2017-04-08 12:04:45 [facility] at early stage at early stage Disease Resolve d 2015-04 00:00: 00 2016-10-09 00:00:00 2016-10-09 11:00:34 [facility] High-risk supervisio n, first trimester High-risk supervisio n, first trimester Disease Resolve d 2015-04 00:00: 00 2016-08-17 00:00:00 2016-08-17 14:40:58 [facility] with inconclusi ve viability, not applicable or unspecifie d fetus with inconclusi ve viability, not applicable or unspecifie d fetus Disease Resolve d 2015-04 00:00: 00 2016-04-18 00:00:00 2016-04-18 17:25:23 [facility] Allergies, Adverse Reactions, Alerts Allergy Name Allergy Type Status Severity Reaction(s) Onset Date Inactive Date Treating Clinician Comments Source No Known Allergie s DA Active U 07-31 00:00: 00 [facility] No Known Allergie s DA Active U 07-31 00:00: 00 [facility] No Known Environm ental Allergie s MA Active UNKNOWN [facility] No Known Drug Allergie s MA Active UNKNOWN [facility] No Known Food Allergie s MA Active UNKNOWN [facility] NO KNOWN ALLERGIE S Drug Class Active [facility] Family History Family Member Diagnosis Comments Start Date Stop Date Sourc e Natural brother Asthma [facility] Natural [facility] mother Depression [facility] Family member Arthritis [facility] Family member [facility] member Breast [facility] member Cancer [facility] Family member Colon [facility] member Diabetes [facility] Family member Heart Univer [facility] Family member High cholesterol [facility] Family member Hypert[facility] Family member Mental retardation [facility] Family member Neurological [facility] Family member Osteoporosis [facility] Family member Ovarian [facility] member Psychiatry [facility] Family member [facility] Social History Social Habit Start Date Stop Date Quantity Comments Source ASSERTION 2021-06-30 00:00:00 [facility] History SDOH Alcohol Std Drinks [facility] History SDOH Alcohol Binge [facility] History SDOH Alcohol Comment [facility] Gender identity [facility] Sexual [facility] History of Social function 2023-10-23 00:00:00 2023-10-23 00:00:00 [facility] Alcoholic beverage intake 2023-10-23 00:00:00 2023-10-23 00:00:00 0 /d [facility] Alcohol intake 2023-07-17 00:00:00 2023-07-17 00:00:00 0 /d [facility] Exposure to SARS-CoV-2 (event) 2022-08-13 00:00:00 2022-08-23 13:15:00 Not sure [facility] Tobacco use and exposure 2021-11-22 00:00:00 2021-11-22 00:00:00 Smokeless tobacco non-user [facility] History SDOH Alcohol Frequency 2021-07-19 00:00:00 2021-07-19 00:00:00 1 [facility] Sex assigned at 1995 00:00:00 1995 00:00:00 [facility] Smoking Status Start Date Stop Date Source Never smoked tobacco [facility] Medications Ordered Medication Name Filled Medication Name Start Date Stop Date Current Medication? Ordering Clinician Indication Dosage Frequency Signature (SIG) Comments Components Source MAGNESIUM GLYCINATE ORAL 10-22 13:44: 29 Yes Take by mouth. [facility] dicyclomine 10 mg capsule 10-22 00:00: 00 Yes [id number] 10mg Take 1 capsule by mouth 2 (two) times daily as needed for Abdominal pain. [facility] busPIRone 5 mg tablet 09-09 00:00: 00 Yes [id number] 5mg Take 1 tablet by mouth 2 (two) times daily as needed (anxiety). [facility] busPIRone 5 mg tablet 08-28 00:00: 00 09-09 00:00 :00 No [id number] 5mg Take 1 tablet by mouth 2 (two) times daily as needed (anxiety). [facility] fluconazole 150 mg tablet 07-18 00:00: 00 07-19 04:59 :00 No [id number] 150mg Take 1 tablet by mouth once now for 1 dose. [facility] Nitrofurant oin&Nit. Macrocryst (MACROBID) 100 mg capsule 07-16 00:00: 00 07-22 04:59 :00 No [id number] 100mg Take 1 capsule by mouth in the morning and 1 capsule in the evening. Do all this for 5 days. [facility] ondansetron (ZOFRAN (PF)) injection 4 mg 05-11 13:45: 00 05-11 12:46 :00 No 4mg 4 mg, Slow IV Push, ONCE, 1 dose, On 05/11/23 at 0745, Routine [facility] iopamidol (ISOVUE 370-500 mL) injection 90 mL 05-11 13:15: 00 05-11 13:30 :00 No [id number] 90mL 90 mL, Intravenou s, ONCE, 1 dose, On 05/11/23 at 0730, Routine [facility] NaCl 0.9% (NS) bolus infusion 1,000 mL 05-11 12:45: 00 05-11 14:23 :00 No 1000mL at 999 mL/hr, 1,000 mL, IV Infusion, ONCE, 1 dose, On 05/11/23 at 0645, STAT [facility] ondansetron 4 mg disintegrat ing tablet 05-11 00:00: 00 08-25 00:00 :00 No [id number] 4mg Take 1 tablet by mouth every 8 (eight) hours as needed for Nausea and Vomiting (N/V). [facility] memantine (NAMENDA) 5 mg tablet 2022-04 00:00: 00 08-25 00:00 :00 No [id number] 10mg Take 2 tablets by mouth in the morning and 2 tablets in the evening. [facility] amphetamine -dextroamph etamine 30 mg 24 hr capsule 8-29 00:00: 00 08-25 00:00 :00 No TAKE 1 CAPSULE BY MOUTH IN THE MORNING [facility] meclizine 25 mg tablet 4-11 00:00: 01-21 00:00 :00 No [id number] 25mg Take 1 tablet by mouth every 6 (six) hours as needed for Dizziness. [facility] ketorolac (TORADOL) tablet 20 mg 05-22 02:30: 00 05-22 01:35 :00 No 20mg 20 mg, Oral, ONCE NOW, 1 dose, On Sat05/21/22 at 2030, VANESSA [facility] predniSONE (DELTASONE) tablet 40 mg 05-22 02:00: 00 05-22 02:07 :00 No 40mg 40 mg, Oral, ONCE, 1 dose, On Sat05/21/22 at 2000, VANESSA [facility] ketorolac 10 mg tablet 05-21 00:00: 00 01-21 00:00 :00 No [id number] 10mg Take 1 tablet by mouth every 6 (six) hours as needed for Pain (scale 4-6) or Pain (scale 7-10). [facility] amoxicillin -clavulanat e 875-125 mg per tablet 05-21 00:00: 00 06-01 05:59 :00 No [id number] 1{tbl} Take 1 tablet by mouth every 12 (twelve) hours for 10 days. [facility] ibuprofen (IBU) tablet 600 mg 2021-04 13:30: 00 03-30 14:08 :00 No 600mg 600 mg, Oral, ONCE, 1 dose, On Sat03/30/22 at 0730, VANESSA [facility] amoxicillin 500 mg tablet 2021-04 00:00: 00 04-10 05:59 :00 No [id number] 500mg Take 1 tablet by mouth in the morning and 1 tablet in the evening. Do all this for 10 days. [facility] norelgestro min-ethinyl estradiol 150-35 mcg/24 hr patch 2021-04 00:00: 00 01-21 00:00 :00 No [id number] 1{patch } Apply 1 Patch to skin weekly. [facility] ibuprofen (IBU) tablet 600 mg 2021-04 18:00: 00 Yes 600mg 600 mg, Oral, Q6H ABX, First dose on Sat02/28/22 at 1200, Until Discontinu ed, Routine [facility] ketorolac (TORADOL) injection 30 mg 2021-04 18:00: 00 02-28 17:59 :00 No 30mg 30 mg, Slow IV Push, Q6H ABX, 4 doses, First dose on Sat02/27/22 at 1200, Last dose on Sat02/28/22 at 0600, Routine [facility] gabapentin (NEURONTIN) capsule 300 mg 2021-04 14:00: 00 Yes 300mg 300 mg, Oral, TID, First dose on Sat02/27/22 at 0800, Until Discontinu ed, Routine [facility] buPROPion (WELLBUTRIN ) tablet 100 mg 2021-04 14:00: 00 Yes 100mg 100 mg, Oral, BID, First dose on Sat02/27/22 at 0800, Until Discontinu ed, Routine [facility] acetaminoph en (TYLENOL) tablet 650 mg 2021-04 12:00: 00 Yes 650mg 650 mg, Oral, Q6H ABX, First dose on Sat02/27/22 at 0600, Until Discontinu ed, Routine [facility] PNV no.95/nathan us fum/folic ac ( ORAL) 2021-04 08:01: 58 02-27 00:00 :00 No Take by mouth. [facility] sodium chloride 0.9 % irrigation solution 2021-04 05:54: 00 Yes PRN, Starting on Sat02/26/22 at 2354, Until Discontinu ed, Intra-op [facility] lactated ringers IV infusion 1,000 mL 2021-04 03:00: 00 02-27 07:13 :16 No 1000mL at 125 mL/hr, 1,000 mL, IV Infusion, ONCE, 1 dose, On Sat02/26/22 at 2100, Routine [facility] rho(D) immune globulin (RHOGAM) syringe 300 mcg 2021-04 02:57: 35 Yes 300ug 300 mcg, Intramuscu lar, ONCE, For 1 dose, Conditiona l, Routine [facility] HYDROcodone -acetaminop hen (NORCO 5) 5-325 mg tablet 1 tablet 2021-04 02:57: 30 Yes 1{tbl} 1 tablet, Oral, Q6HPRN, Starting on Sat02/26/22 at 2056, Until Discontinu ed, Routine, Pain (scale 7-10), Alternate with Ibuprofen [facility] diphenhydrA MINE (BENADRYL) injection 25 mg 2021-04 02:57: 30 Yes 25mg 25 mg, Slow IV Push, Q6HPRN, Starting on Sat02/26/22 at 2056, Until Discontinu ed, Routine, Itching [facility] diphenhydrA MINE (BENADRYL) tablet 25 mg 2021-04 02:57: 30 Yes 25mg 25 mg, Oral, Q6HPRN, Starting on Sat02/26/22 at 2056, Until Discontinu ed, Routine, Sleep, Itching [facility] ondansetron (ZOFRAN (PF)) injection 4 mg 2021-04 02:57: 30 Yes 4mg 4 mg, Slow IV Push, Q8HPRN, Starting on Sat02/26/22 at 2056, Until Discontinu ed, Routine, Nausea and Vomiting (N/V) [facility] bisacodyL (DULCOLAX) suppository 10 mg 2021-04 02:57: 30 Yes 10mg 10 mg, Rectal, QDAILYPRN, Starting on Sat02/26/22 at 2056, Until Discontinu ed, Routine, Constipati on [facility] simethicone (GAS RELIEF (SIMETHICON E)) chewable tablet 160 mg 2021-04 02:57: 30 Yes 160mg 160 mg, Oral, PC+HSPRN, Starting on Sat02/26/22 at 2056, Until Discontinu ed, Routine, Gas [facility] docusate (COLACE) capsule 200 mg 2021-04 02:57: 30 Yes 200mg 200 mg, Oral, QDAILYPRN, Starting on Sat02/26/22 at 2056, Until Discontinu ed, Routine, Constipati on [facility] magnesium hydroxide (MILK OF MAGNESIA) 400 mg/5 mL suspension 30 mL 2021-04 02:57: 30 Yes 30mL 30 mL, Oral, QDAILYPRN, Starting on Sat02/26/22 at 2056, Until Discontinu ed, Routine, Constipati on [facility] lactated ringers IV infusion 1,000 mL 2021-04 02:57: 30 Yes 1000mL at 125 mL/hr, 1,000 mL, IV Infusion, PRN, 1 dose, Starting on Sat02/26/22 at 2056, Until Discontinu ed, Routine [facility] mupirocin (BACTROBAN OINT) 2 % skin ointment 2021-04 02:30: 00 Yes Intra-op [facility] betamethaso ne acet,sod phos (CELESTONE SOLUSPAN) 6 mg/mL injection 12 mg 2021-04 00:22: 00 02-27 00:23 :00 No 12mg 12 mg, Intramuscu lar, ONCE, 1 dose, On Sat02/26/22 at 1830, Routine [facility] acetaminoph en 325 mg tablet 2021-04 00:00: 00 03-28 00:00 :00 No [id number] 650mg Take 2 tablets by mouth every 6 (six) hours as needed for Pain (scale 1-3) or Pain (scale 4-6). [facility] vitamin w/FA tablet 2021-04 00:00: 00 03-28 00:00 :00 No [id number] 1{tbl} Take 1 tablet by mouth in the morning. [facility] docusate 100 mg capsule 2021-04 00:00: 00 03-28 00:00 :00 No [id number] 200mg Take 2 capsules by mouth once daily as needed for Constipati on. [facility] ferrous sulfate 325 mg (65 mg iron) tablet 2021-04 00:00: 00 03-28 00:00 :00 No [id number] 325mg Take 1 tablet by mouth in the morning and 1 tablet in the evening. [facility] ibuprofen 600 mg tablet 2021-04 00:00: 00 03-28 00:00 :00 No [id number] 600mg Take 1 tablet by mouth every 6 (six) hours as needed (Pain). Take with food or milk. [facility] HYDROcodone -acetaminop hen 5-325 mg tablet 2021-04 00:00: 00 03-07 05:59 :00 No [id number] 1{tbl} Take 1 tablet by mouth every 6 (six) hours as needed for Pain (scale 7-10) (Alternate with Ibuprofen) for up to 7 days. Indication s: acute pain [facility] gabapentin 300 mg capsule 2021-04 00:00: 00 03-05 05:59 :00 No [id number] 300mg Take 1 capsule by mouth in the morning and 1 capsule at noon and 1 capsule in the evening. Do all this for 5 days. [facility] sodium citrate-cit jaylen acid (BICITRA) 500-334 mg/5 mL solution 30 mL 2021-04 21:55: 25 02-27 01:28 :00 No 30mL 30 mL, Oral, PRE-PROCED URE ONCE, 1 dose, Starting on Sat02/26/22 at 1555, Until Discontinu ed, Routine, Surgery/Pr ocedure [facility] lactated ringers IV infusion 500 mL 2021-04 21:55: 25 02-27 02:57 :33 No 500mL at 999 mL/hr, 500 mL, IV Infusion, PRN - SEE INSTRUCTIO NS, Starting on Sat02/26/22 at 1555, Until Sat02/26/22 at 2056, Routine [facility] D5W-LR IV infusion 1,000 mL 2021-04 21:55: 25 02-27 02:57 :33 No 1000mL at 1-125 mL/hr, IV Infusion, TITRATE, Starting on Sat02/26/22 at 1555, Until Sat02/26/22 at 2056, Routine [facility] PNV no.95/nathan us fum/folic ac ( ORAL) 2021-04 19:48: 58 Yes Take by mouth. [facility] PNV no.95/nathan us fum/folic ac ( ORAL) 2021-04 15:52: 08 Yes Take by mouth. [facility] Nitrofurant oin&Nit. Macrocryst (MACROBID) 100 mg capsule 100 mg 2021-04 21:30: 00 02-25 20:43 :00 No 100mg 100 mg, Oral, ONCE, 1 dose, On Sat02/25/22 at 1530, Routine
Reason for Anti-Infec tive: Empiric Therapy for Suspected Infection< br>Empiric Therapy Site: Urine
D uration of therapy: 5 days [facility] PNV no.95/nathan us fum/folic ac ( ORAL) 2021-04 15:22: 42 Yes Take by mouth. [facility] Nitrofurant oin&Nit. Macrocryst 100 mg capsule 2021-04 00:00: 00 02-27 00:00 :00 No [id number] 100mg Take 1 capsule by mouth in the morning and 1 capsule in the evening. [facility] SUMAtriptan (IMITREX) tablet 50 mg 2021-04 01:30: 00 02-09 01:07 :00 No 50mg 50 mg, Oral, ONCE, 1 dose, On Carolin 02/08/22 at 2030, Routine [facility] magnesium sulfate in water 2 gram/50 mL (4 %) infusion 2 g 2021-04 01:30: 00 02-09 02:07 :00 No 2g 2 g, IV Piggyback, Administer over 60 Minutes, ONCE, 1 dose, On Carolin 02/08/22 at 2030, Routine [facility] D5W-LR IV infusion 1,000 mL 2021-04 01:00: 00 Yes 1000mL at 150 mL/hr, IV Infusion, CONTINUOUS , Starting on Carolin 02/08/22 at 2015, Until Discontinu ed, Routine [facility] NaCl 0.9% (NS) IV infusion 1,000 mL 2021-04 22:45: 00 02-08 22:30 :00 No 1000mL at 999 mL/hr, IV Infusion, ONCE, 1 dose, On Carolin 02/08/22 at 1745, Routine
Then D5LR at 150 ml/hr
[facility] ondansetron (ZOFRAN (PF)) injection 4 mg 2021-04 22:36: 00 02-08 22:50 :00 No 4mg 4 mg, Slow IV Push, ONCE, On Carolin 02/08/22 at 1745, For 1 dose
Do ses of ondansetro n 16 mg and above need to be administer ed via IV piggyback. For Dose >=24mg ECG monitoring is advisable.
[facility] PNV no.95/nathan us fum/folic ac ( ORAL) 2021-04 22:25: 04 Yes Take by mouth. [facility] PNV no.95/nathan us fum/folic ac ( ORAL) 2021-04 12:35: 03 Yes Take by mouth. [facility] magnesium oxide 400 mg (241.3 mg magnesium) tablet 2021-04 00:00: 00 02-27 00:00 :00 No [id number] 400mg Take 1 tablet by mouth in the morning. [facility] memantine 5 mg tablet 2021-04 00:00: 00 02-27 00:00 :00 No [id number] 5mg Take 1 tablet by mouth in the morning. [facility] D5W-LR IV infusion 1,000 mL 2021-04 00:15: 00 Yes 1000mL at 150 mL/hr, IV Infusion, CONTINUOUS , Starting on 02/03/22 at 1915, Until Discontinu ed, Routine [facility] magnesium sulfate in water 2 gram/50 mL (4 %) infusion 2 g 2021-04 00:15: 00 02-04 02:03 :00 No 2g 2 g, IV Piggyback, Administer over 60 Minutes, ONCE, 1 dose, On 02/03/22 at 1915, Routine [facility] NaCl 0.9% (NS) bolus infusion 1,000 mL 2021-04 00:00: 00 02-04 00:58 :00 No 1000mL at 999 mL/hr, 1,000 mL, IV Piggyback, ONCE, 1 dose, On 02/03/22 at 1900, STAT [facility] SUMAtriptan (IMITREX) injection 6 mg 2021-04 00:00: 00 02-03 23:44 :00 No 6mg 6 mg, Subcutaneo us, ONCE, 1 dose, On 02/03/22 at 1900, Routine [facility] metoclopram abisai HCl (REGLAN) injection 10 mg 2021-04 00:00: 00 02-03 23:55 :00 No 10mg 10 mg, Slow IV Push, ONCE, 1 dose, On 02/03/22 at 1900, Routine [facility] proCHLORper azine (COMPAZINE) tablet 10 mg 2021-04 22:51: 00 02-03 22:59 :00 No 10mg 10 mg, Oral, ONCE NOW, 1 dose, On Sat02/03/22 at 1800, Routine [facility] PNV no.95/nathan us fum/folic ac ( ORAL) 2021-04 21:51: 21 Yes Take by mouth. [facility] PNV no.95/ntahan us fum/folic ac ( ORAL) 2021-04 14:13: 44 Yes Take by mouth. [facility] magnesium sulfate in water 2 gram/50 mL (4 %) infusion 2 g 2021-04 13:45: 00 02-02 14:37 :00 No 2g 2 g, IV Piggyback, Administer over 60 Minutes, ONCE, 1 dose, On Sat02/02/22 at 0845, Routine [facility] SUMAtriptan (IMITREX) tablet 50 mg 2021-04 13:45: 00 02-02 13:32 :00 No 50mg 50 mg, Oral, ONCE, 1 dose, On Sat02/02/22 at 0845, Routine [facility] buPROPion (WELLBUTRIN ) tablet 100 mg 2021-04 13:00: 00 Yes 100mg 100 mg, Oral, BID, First dose on Sat02/02/22 at 0800, Until Discontinu ed, Routine [facility] acetaminoph en (TYLENOL) tablet 650 mg 2021-04 09:27: 47 Yes 650mg 650 mg, Oral, Q6HPRN, Starting on Sat02/02/22 at 0427, Until Discontinu ed, Routine, headache [facility] alum-mag hydroxide-s imeth (MAALOX PLUS / MAG-AL PLUS) 200-200-20 mg/5 mL suspension 30 mL 2021-04 08:04: 11 Yes 30mL 30 mL, Oral, Q6HPRN, Starting on Sat02/02/22 at 0304, Until Discontinu ed, Routine, Indigestio n [facility] docusate (COLACE) capsule 200 mg 2021-04 08:04: 11 Yes 200mg 200 mg, Oral, QHSPRN, Starting on Sat02/02/22 at 0304, Until Discontinu ed, Routine, Constipati on [facility] magnesium hydroxide (MILK OF MAGNESIA) 400 mg/5 mL suspension 30 mL 2021-04 08:04: 11 Yes 30mL 30 mL, Oral, QDAILYPRN, Starting on Sat02/02/22 at 0304, Until Discontinu ed, Routine, Constipati on [facility] caffeine tablet 200 mg 2021-04 07:45: 00 02-02 07:00 :00 No 200mg 200 mg, Oral, ONCE NOW, 1 dose, On Sat02/02/22 at 0245, Routine [facility] proCHLORper azine (COMPAZINE) 10 mg in NaCl 0.9% (NS) piggyback 2021-04 07:30: 00 02-02 07:18 :00 No 10mg 10 mg, IV Piggyback, ONCE NOW, 1 dose, On Sat02/02/22 at 0230, 50 mL [facility] diphenhydrA MINE (BENADRYL) injection 25 mg 2021-04 05:15: 00 02-02 04:41 :00 No 25mg 25 mg, Intravenou s, ONCE, 1 dose, On Sat02/02/22 at 0015, Routine [facility] metoclopram abisai HCl (REGLAN) injection 10 mg 2021-04 05:15: 00 02-02 04:41 :00 No 10mg 10 mg, Slow IV Push, ONCE NOW, 1 dose, On Sat02/02/22 at 0015, Routine [facility] lactated ringers IV infusion 500 mL 2021-04 05:00: 00 02-02 04:38 :38 No 500mL at 999 mL/hr, 500 mL, Intravenou s, ONCE, 1 dose, On Sat02/02/22 at 0000, Routine [facility] SUMAtriptan 50 mg tablet 2021-04 00:00: 00 03-28 00:00 :00 No [id number] 50mg Take 1 tablet by mouth in the morning. [facility] magnesium oxide 400 mg (241.3 mg magnesium) tablet 2021-04 0 00:00: 00 02-07 00:00 :00 No [id number] 400mg Take 1 tablet by mouth in the morning. [facility] butalbital- acetaminoph en-caff 50-325-40 mg tablet 2021-04 00:00: 00 Yes [id number] 1{tbl} Take 1 tablet by mouth every 4 (four) hours as needed for Pain (scale 7-10). [facility] cetirizine 10 mg tablet 2021-04 00:00: 00 01-21 00:00 :00 No [id number] 10mg Take 1 tablet by mouth in the morning. [facility] fluticasone propionate 50 mcg/actuati on nasal spray 2021-04 00:00: 00 02-27 00:00 :00 No [id number] 2{spray } Use 2 Sprays in each nostril in the morning. [facility] butalbital- acetaminoph en-caff (ESGIC) 50-325-40 mg tablet 2 tablet 2021-04 20:15: 00 01-30 20:18 :00 No 2{tbl} 2 tablet, Oral, ONCE NOW, 1 dose, On Sat01/30/22 at 1515, Routine [facility] PNV no.95/nathan us fum/folic ac ( ORAL) 2021-04 17:37: 34 Yes Take by mouth. [facility] PNV no.95/nathan us fum/folic ac ( ORAL) 2021-04 16:58: 09 Yes Take by mouth. [facility] magnesium oxide 400 mg (241.3 mg magnesium) tablet 2021-04 00:00: 00 Yes [id number] 400mg Take 1 tablet by mouth in the morning. [facility] PNV no.95/nathan us fum/folic ac ( ORAL) 2021-04 00:06: 48 Yes Take by mouth. [facility] MAGNESIUM GLYCINATE ORAL 10-24 14:20: 54 Yes Take by mouth. [facility] buPROPion 100 mg tablet 10-24 00:00: 00 01-21 00:00 :00 No [id number] 100mg Take 1 tablet by mouth 2 (two) times daily. [facility] metoclopram abisai HCl 10 mg tablet 12 00:00: 00 02-27 00:00 :00 No [id number] 10mg Take 1 tablet by mouth every 6 (six) hours as needed for Nausea and Vomiting (N/V). [facility] iohexol (OMNIPAQUE 350 BULK-100 mL) injection 100 mL 01-15 15:47: 00 01-15 16:00 :00 No [id number] 100mL 100 mL, Intravenou s, ONCE, 1 dose, On 01/15/21 at 1100, Routine [facility] gadoteridol (PROHANCE-2 0 mL) injection 19.32 mL 01-15 01:51: 00 01-15 02:00 :00 No [id number] .2mL/kg 19.32 mL (0.2 mL/kg ?96.6 kg), Intravenou s, ONCE, 1 dose, On 01/14/21 at 2100, Routine [facility] amitriptyli ne 25 mg tablet 01-15 00:00: 00 02-15 04:59 :00 No [id number] 25mg Take 1 tablet by mouth at bedtime for 30 days. [facility] lidocaine 1% (PF) (XYLOCAINE) injection 01-13 20:50: 37 01-13 20:50 :37 No PRN, Starting on Sat01/13/21 at 1550, Until Sat01/13/21 at 1550, Routine [facility] LORazepam (ATIVAN) tablet 01-13 20:30: 00 01-13 20:30 :00 No Oral, PRN, Starting on Sat01/13/21 at 1530, Until Sat01/13/21 at 1530, Routine [facility] LORazepam (ATIVAN) tablet 1 mg 01-13 18:44: 14 Yes 1mg 1 mg, Oral, PRN - SEE INSTRUCTIO NS, 2 doses, Starting on Sat01/13/21 at 1344, Until Discontinu ed, Routine, Anxiety, to be given prior to LP under IR if needed [facility] magnesium oxide (MAG-OX 400) tablet 400 mg 01-13 14:00: 00 Yes 400mg 400 mg, Oral, DAILY, First dose on Sat01/13/21 at 0900, Until Discontinu ed, Routine [facility] pantoprazol e (PROTONIX) EC tablet 40 mg 01-13 14:00: 00 Yes 40mg 40 mg, Oral, DAILY, First dose on Sat01/13/21 at 0900, Until Discontinu ed, Routine [facility] heparin (porcine) injection 5,000 Units 01-13 13:00: 00 Yes 5000U 5,000 Units, Subcutaneo us, Q12H, First dose on Sat01/13/21 at 0800, Until Discontinu ed, Routine [facility] ondansetron (ZOFRAN (PF)) injection 4 mg 01-13 06:25: 13 Yes 4mg 4 mg, Slow IV Push, Q6HPRN, Starting on Sat01/13/21 at 0125, Until Discontinu ed, Routine, nausea [facility] NaCl 0.9% (NS) IV infusion 1,000 mL 01-13 05:45: 00 Yes 1000mL at 50 mL/hr, IV Infusion, CONTINUOUS , Starting on Sat01/13/21 at 0045, Until Discontinu ed, Routine [facility] acetaminoph en (TYLENOL) tablet 650 mg 01-13 05:32: 37 Yes 650mg 650 mg, Oral, Q6HPRN, Starting on Sat01/13/21 at 0032, Until Discontinu ed, Routine, Pain (scale 4-6) [facility] docusate (COLACE) capsule 100 mg 01-13 05:32: 37 Yes 100mg 100 mg, Oral, QDAILYPRN, Starting on Sat01/13/21 at 0032, Until Discontinu ed, Routine, Constipati on [facility] magnesium oxide 400 mg (241.3 mg magnesium) tablet 01-12 00:00: 00 08-01 00:00 :00 No [id number] 400mg Take 1 tablet by mouth daily. [facility] scopolamine transdermal 1 mg over 3 days patch 8-03 00:00: 00 01-15 00:00 :00 No [id number] 1.5mg Apply 1 Patch to area(s) every 72 (seventy-t wo) hours. [facility] amoxicillin 500 mg capsule 7-15 00:00: 00 01-15 00:00 :00 No TAKE 1 CAPSULE BY MOUTH EVERY 8 HOURS DIRECTED FOR 10 DAYS [facility] cefUROXime 500 mg tablet -19 00:00: 00 10-25 00:00 :00 No 500mg Take 500 mg by mouth 2 (two) times daily. [facility] norelgestro min-ethinyl estradiol (XULANE) 150-35 mcg/24 hr patch 09-23 00:00: 00 10-25 00:00 :00 No [id number] 1{patch } Apply 1 Patch to skin weekly. [facility] vitamin w/FA tablet 08-27 00:00: 00 10-25 00:00 :00 No [id number] 1{tbl} Take 1 tablet by mouth daily. [facility] docusate calcium 240 mg capsule 08-27 00:00: 00 10-25 00:00 :00 No [id number] 240mg Take 1 capsule by mouth once daily as needed for Constipati on. [facility] ferrous sulfate 325 mg (65 mg iron) tablet 08-27 00:00: 00 10-25 00:00 :00 No [id number] 325mg Take 1 tablet by mouth 2 (two) times daily. [facility] ibuprofen 600 mg tablet 08-27 00:00: 00 10-25 00:00 :00 No [id number] 600mg Take 1 tablet by mouth every 6 (six) hours as needed (Pain). Take with food or milk. [facility] Immunizations Ordered Immunization Name Filled Immunization Name Date Status Comments Source Influenza Virus Vaccine Quad IM, Preserv and ABX Free 6 MO-64 YRS 2022-01-17 00:00:00 Completed [facility] TDAP 2022-01-17 00:00:00 Completed [facility] Influenza Virus Vaccine Quad IM, Preserv and ABX Free 6 MO-64 YRS 2022-01-17 00:00:00 Completed [facility] TDAP 2022-01-17 00:00:00 Completed [facility] Influenza Virus Vaccine Quad IM, Preserv and ABX Free 6 MO-64 YRS 2022-01-17 00:00:00 Completed [facility] TDAP 2022-01-17 00:00:00 Completed [facility] Influenza Virus Vaccine Quad IM, Preserv and ABX Free 6 MO-64 YRS 2022-01-17 00:00:00 Completed [facility] TDAP 2022-01-17 00:00:00 Completed [facility] Influenza Virus Vaccine Quad IM, Preserv and ABX Free 6 MO-64 YRS 2022-01-17 00:00:00 Completed [facility] TDAP 2022-01-17 00:00:00 Completed [facility] Influenza Virus Vaccine Quad IM, Preserv and ABX Free 6 MO-64 YRS 2022-01-17 00:00:00 Completed [facility] TDAP 2022-01-17 00:00:00 Completed [facility] Influenza Virus Vaccine Quad IM, Preserv and ABX Free 6 MO-64 YRS 2022-01-17 00:00:00 Completed [facility] TDAP 2022-01-17 00:00:00 Completed [facility] Influenza Virus Vaccine Quad IM, Preserv and ABX Free 6 MO-64 YRS 2022-01-17 00:00:00 Completed [facility] TDAP 2022-01-17 00:00:00 Completed [facility] Influenza Virus Vaccine Quad IM, Preserv and ABX Free 6 MO-64 YRS 2022-01-17 00:00:00 Completed [facility] TDAP 2022-01-17 00:00:00 Completed [facility] Influenza Virus Vaccine Quad IM, Preserv and ABX Free 6 MO-64 YRS 2022-01-17 00:00:00 Completed [facility] TDAP 2022-01-17 00:00:00 Completed [facility] Influenza Virus Vaccine Quad IM, Preserv and ABX Free 6 MO-64 YRS 2022-01-17 00:00:00 Completed [facility] TDAP 2022-01-17 00:00:00 Completed [facility] Influenza Virus Vaccine Quad IM, Preserv and ABX Free 6 MO-64 YRS 2022-01-17 00:00:00 Completed [facility] TDAP 2022-01-17 00:00:00 Completed [facility] Influenza Virus Vaccine Quad IM, Preserv and ABX Free 6 MO-64 YRS 2022-01-17 00:00:00 Completed [facility] TDAP 2022-01-17 00:00:00 Completed [facility] Influenza Virus Vaccine Quad IM, Preserv and ABX Free 6 MO-64 YRS 2022-01-17 00:00:00 Completed [facility] TDAP 2022-01-17 00:00:00 Completed [facility] Influenza Virus Vaccine Quad IM, Preserv and ABX Free 6 MO-64 YRS 2022-01-17 00:00:00 Completed [facility] TDAP 2022-01-17 00:00:00 Completed [facility] Influenza Virus Vaccine Quad IM, Preserv and ABX Free 6 MO-64 YRS 2022-01-17 00:00:00 Completed [facility] TDAP 2022-01-17 00:00:00 Completed [facility] Influenza Virus Vaccine Quad IM, Preserv and ABX Free 6 MO-64 YRS 2022-01-17 00:00:00 Completed [facility] TDAP 2022-01-17 00:00:00 Completed [facility] Influenza Virus Vaccine Quad IM, Preserv and ABX Free 6 MO-64 YRS 2022-01-17 00:00:00 Completed [facility] TDAP 2022-01-17 00:00:00 Completed [facility] Influenza Virus Vaccine Quad IM, Preserv and ABX Free 6 MO-64 YRS 2022-01-17 00:00:00 Completed [facility] TDAP 2022-01-17 00:00:00 Completed [facility] Influenza Virus Vaccine Quad IM, Preserv and ABX Free 6 MO-64 YRS 2022-01-17 00:00:00 Completed [facility] TDAP 2022-01-17 00:00:00 Completed [facility] Influenza Virus Vaccine Quad IM, Preserv and ABX Free 6 MO-64 YRS 2022-01-17 00:00:00 Completed [facility] TDAP 2022-01-17 00:00:00 Completed [facility] Influenza Virus Vaccine Quad IM, Preserv and ABX Free 6 MO-64 YRS 2022-01-17 00:00:00 Completed [facility] TDAP 2022-01-17 00:00:00 Completed [facility] Influenza Virus Vaccine Quad IM, Preserv and ABX Free 6 MO-64 YRS 2022-01-17 00:00:00 Completed [facility] TDAP 2022-01-17 00:00:00 Completed [facility] Influenza Virus Vaccine Quad IM, Preserv and ABX Free 6 MO-64 YRS 2022-01-17 00:00:00 Completed [facility] TDAP 2022-01-17 00:00:00 Completed [facility] Influenza Virus Vaccine Quad IM, Preserv and ABX Free 6 MO-64 YRS 2022-01-17 00:00:00 Completed [facility] TDAP 2022-01-17 00:00:00 Completed [facility] Influenza Virus Vaccine Quad IM, Preserv and ABX Free 6 MO-64 YRS 2022-01-17 00:00:00 Completed [facility] TDAP 2022-01-17 00:00:00 Completed [facility] Influenza Virus Vaccine Quad IM, Preserv and ABX Free 6 MO-64 YRS 2022-01-17 00:00:00 Completed [facility] TDAP 2022-01-17 00:00:00 Completed [facility] Influenza Virus Vaccine Quad IM, Preserv and ABX Free 6 MO-64 YRS 2022-01-17 00:00:00 Completed [facility] TDAP 2022-01-17 00:00:00 Completed [facility] Influenza Virus Vaccine Quad IM, Preserv and ABX Free 6 MO-64 YRS 2022-01-17 00:00:00 Completed [facility] TDAP 2022-01-17 00:00:00 Completed [facility] Influenza Virus Vaccine Quad IM, Preserv and ABX Free 6 MO-64 YRS 2022-01-17 00:00:00 Completed [facility] TDAP 2022-01-17 00:00:00 Completed [facility] Influenza Virus Vaccine Quad IM, Preserv and ABX Free 6 MO-64 YRS 2022-01-17 00:00:00 Completed [facility] TDAP 2022-01-17 00:00:00 Completed [facility] Influenza Virus Vaccine Quad IM, Preserv and ABX Free 6 MO-64 YRS 2022-01-17 00:00:00 Completed [facility] TDAP 2022-01-17 00:00:00 Completed [facility] Influenza Virus Vaccine Quad IM, Preserv and ABX Free 6 MO-64 YRS 2022-01-17 00:00:00 Completed [facility] TDAP 2022-01-17 00:00:00 Completed [facility] Influenza Virus Vaccine Quad IM, Preserv and ABX Free 6 MO-64 YRS 2022-01-17 00:00:00 Completed [facility] TDAP 2022-01-17 00:00:00 Completed [facility] Influenza Virus Vaccine Quad IM, Preserv and ABX Free 6 MO-64 YRS 2022-01-17 00:00:00 Completed [facility] TDAP 2022-01-17 00:00:00 Completed [facility] Influenza Virus Vaccine Quad IM, Preserv and ABX Free 6 MO-64 YRS 2022-01-17 00:00:00 Completed [facility] TDAP 2022-01-17 00:00:00 Completed [facility] Influenza Virus Vaccine Quad IM, Preserv and ABX Free 6 MO-64 YRS 2022-01-17 00:00:00 Completed [facility] TDAP 2022-01-17 00:00:00 Completed [facility] Influenza Virus Vaccine Quad IM, Preserv and ABX Free 6 MO-64 YRS 2022-01-17 00:00:00 Completed [facility] TDAP 2022-01-17 00:00:00 Completed [facility] Influenza Virus Vaccine Quad IM, Preserv and ABX Free 6 MO-64 YRS 2022-01-17 00:00:00 Completed [facility] TDAP 2022-01-17 00:00:00 Completed [facility] Influenza Virus Vaccine Quad IM, Preserv and ABX Free 6 MO-64 YRS 2022-01-17 00:00:00 Completed [facility] TDAP 2022-01-17 00:00:00 Completed [facility] Influenza Virus Vaccine Quad IM, Preserv and ABX Free 6 MO-64 YRS 2022-01-17 00:00:00 Completed [facility] TDAP 2022-01-17 00:00:00 Completed [facility] Influenza Virus Vaccine Quad IM, Preserv and ABX Free 6 MO-64 YRS 2022-01-17 00:00:00 Completed [facility] TDAP 2022-01-17 00:00:00 Completed [facility] Influenza Virus Vaccine Quad IM, Preserv and ABX Free 6 MO-64 YRS 2022-01-17 00:00:00 Completed [facility] TDAP 2022-01-17 00:00:00 Completed [facility] Influenza Virus Vaccine Quad IM, Preserv and ABX Free 6 MO-64 YRS 2022-01-17 00:00:00 Completed [facility] TDAP 2022-01-17 00:00:00 Completed [facility] Influenza Virus Vaccine Quad IM, Preserv and ABX Free 6 MO-64 YRS 2022-01-17 00:00:00 Completed [facility] TDAP 2022-01-17 00:00:00 Completed [facility] Influenza Virus Vaccine Quad IM, Preserv and ABX Free 6 MO-64 YRS 2022-01-17 00:00:00 Completed [facility] TDAP 2022-01-17 00:00:00 Completed [facility] Influenza Virus Vaccine Quad IM, Preserv and ABX Free 6 MO-64 YRS 2022-01-17 00:00:00 Completed [facility] TDAP 2022-01-17 00:00:00 Completed [facility] Influenza Virus Vaccine Quad IM, Preserv and ABX Free 6 MO-64 YRS 2022-01-17 00:00:00 Completed [facility] TDAP 2022-01-17 00:00:00 Completed [facility] Influenza Virus Vaccine Quad IM, Preserv and ABX Free 6 MO-64 YRS 2022-01-17 00:00:00 Completed [facility] TDAP 2022-01-17 00:00:00 Completed [facility] Influenza Virus Vaccine Quad IM, Preserv and ABX Free 6 MO-64 YRS 2022-01-17 00:00:00 Completed [facility] TDAP 2022-01-17 00:00:00 Completed [facility] Influenza Virus Vaccine Quad IM, Preserv and ABX Free 6 MO-64 YRS 2022-01-17 00:00:00 Completed [facility] TDAP 2022-01-17 00:00:00 Completed [facility] Influenza Virus Vaccine Quad IM, Preserv and ABX Free 6 MO-64 YRS 2022-01-17 00:00:00 Completed [facility] TDAP 2022-01-17 00:00:00 Completed [facility] Influenza Virus Vaccine Quad IM, Preserv and ABX Free 6 MO-64 YRS 2022-01-17 00:00:00 Completed [facility] TDAP 2022-01-17 00:00:00 Completed [facility] Influenza Virus Vaccine Quad IM, Preserv and ABX Free 6 MO-64 YRS 2021-07-19 00:00:00 Completed [facility] Influenza Virus Vaccine Quad IM, Preserv and ABX Free 6 MO-64 YRS 2021-07-19 00:00:00 Completed [facility] Influenza Virus Vaccine Quad IM, Preserv and ABX Free 6 MO-64 YRS 2021-07-19 00:00:00 Completed [facility] Influenza Virus Vaccine Quad IM, Preserv and ABX Free 6 MO-64 YRS 2021-07-19 00:00:00 Completed [facility] Influenza Virus Vaccine Quad IM, Preserv and ABX Free 6 MO-64 YRS 2021-07-19 00:00:00 Completed [facility] Influenza Virus Vaccine Quad IM, Preserv and ABX Free 6 MO-64 YRS 2021-07-19 00:00:00 Completed [facility] Influenza Virus Vaccine Quad IM, Preserv and ABX Free 6 MO-64 YRS 2021-07-19 00:00:00 Completed [facility] Influenza Virus Vaccine Quad IM, Preserv and ABX Free 6 MO-64 YRS 2021-07-19 00:00:00 Completed [facility] Influenza Virus Vaccine Quad IM, Preserv and ABX Free 6 MO-64 YRS 2021-07-19 00:00:00 Completed [facility] Influenza Virus Vaccine Quad IM, Preserv and ABX Free 6 MO-64 YRS 2021-07-19 00:00:00 Completed [facility] Influenza Virus Vaccine Quad IM, Preserv and ABX Free 6 MO-64 YRS 2021-07-19 00:00:00 Completed [facility] Influenza Virus Vaccine Quad IM, Preserv and ABX Free 6 MO-64 YRS 2021-07-19 00:00:00 Completed [facility] Influenza Virus Vaccine Quad IM, Preserv and ABX Free 6 MO-64 YRS 2021-07-19 00:00:00 Completed [facility] Influenza Virus Vaccine Quad IM, Preserv and ABX Free 6 MO-64 YRS 2021-07-19 00:00:00 Completed [facility] Influenza Virus Vaccine Quad IM, Preserv and ABX Free 6 MO-64 YRS 2021-07-19 00:00:00 Completed [facility] Influenza Virus Vaccine Quad IM, Preserv and ABX Free 6 MO-64 2021-07-19 00:00:00 Completed [facility] Influenza Virus Vaccine Quad IM, Preserv and ABX Free 6 MO-64 YRS 2021-07-19 00:00:00 Completed [facility] Influenza Virus Vaccine Quad IM, Preserv and ABX Free 6 MO-64 2021-07-19 00:00:00 Completed [facility] Influenza Virus Vaccine Quad IM, Preserv and ABX Free 6 MO-64 YRS 2021-07-19 00:00:00 Completed [facility] Influenza Virus Vaccine Quad IM, Preserv and ABX Free 6 MO-64 YRS 2021-07-19 00:00:00 Completed [facility] Influenza Virus Vaccine Quad IM, Preserv and ABX Free 6 MO-64 YRS 2021-07-19 00:00:00 Completed [facility] Influenza Virus Vaccine Quad IM, Preserv and ABX Free 6 MO-64 YRS 2021-07-19 00:00:00 Completed [facility] Influenza Virus Vaccine Quad IM, Preserv and ABX Free 6 MO-64 YRS 2021-07-19 00:00:00 Completed [facility] Influenza Virus Vaccine Quad IM, Preserv and ABX Free 6 MO-64 YRS 2021-07-19 00:00:00 Completed [facility] Influenza Virus Vaccine Quad IM, Preserv and ABX Free 6 MO-64 YRS 2021-07-19 00:00:00 Completed [facility] Influenza Virus Vaccine Quad IM, Preserv and ABX Free 6 MO-64 YRS 2021-07-19 00:00:00 Completed [facility] Influenza Virus Vaccine Quad IM, Preserv and ABX Free 6 MO-64 2021-07-19 00:00:00 Completed [facility] Influenza Virus Vaccine Quad IM, Preserv and ABX Free 6 MO-64 YRS 2021-07-19 00:00:00 Completed [facility] Influenza Virus Vaccine Quad IM, Preserv and ABX Free 6 MO-64 YRS 2021-07-19 00:00:00 Completed [facility] Influenza Virus Vaccine Quad IM, Preserv and ABX Free 6 MO-64 YRS 2021-07-19 00:00:00 Completed [facility] Influenza Virus Vaccine Quad IM, Preserv and ABX Free 6 MO-64 YRS 2021-07-19 00:00:00 Completed [facility] Influenza Virus Vaccine Quad IM, Preserv and ABX Free 6 MO-64 YRS 2021-07-19 00:00:00 Completed [facility] Influenza Virus Vaccine Quad IM, Preserv and ABX Free 6 MO-64 YRS 2021-07-19 00:00:00 Completed [facility] Influenza Virus Vaccine Quad IM, Preserv and ABX Free 6 MO-64 YRS 2021-07-19 00:00:00 Completed [facility] Influenza Virus Vaccine Quad IM, Preserv and ABX Free 6 MO-64 YRS 2021-07-19 00:00:00 Completed [facility] Influenza Virus Vaccine Quad IM, Preserv and ABX Free 6 MO-64 YRS 2021-07-19 00:00:00 Completed [facility] Influenza Virus Vaccine Quad IM, Preserv and ABX Free 6 MO-64 YRS 2021-07-19 00:00:00 Completed [facility] Influenza Virus Vaccine Quad IM, Preserv and ABX Free 6 MO-64 YRS 2021-07-19 00:00:00 Completed [facility] Influenza Virus Vaccine Quad IM, Preserv and ABX Free 6 MO-64 YRS 2021-07-19 00:00:00 Completed [facility] Influenza Virus Vaccine Quad IM, Preserv and ABX Free 6 MO-64 YRS 2021-07-19 00:00:00 Completed [facility] Influenza Virus Vaccine Quad IM, Preserv and ABX Free 6 MO-64 YRS 2021-07-19 00:00:00 Completed [facility] Influenza Virus Vaccine Quad IM, Preserv and ABX Free 6 MO-64 YRS 2021-07-19 00:00:00 Completed [facility] Influenza Virus Vaccine Quad IM, Preserv and ABX Free 6 MO-64 YRS 2021-07-19 00:00:00 Completed [facility] Influenza Virus Vaccine Quad IM, Preserv and ABX Free 6 MO-64 YRS 2021-07-19 00:00:00 Completed [facility] Influenza Virus Vaccine Quad IM, Preserv and ABX Free 6 MO-64 YRS 2021-07-19 00:00:00 Completed [facility] Influenza Virus Vaccine Quad IM, Preserv and ABX Free 6 MO-64 YRS 2021-07-19 00:00:00 Completed [facility] Influenza Virus Vaccine Quad IM, Preserv and ABX Free 6 MO-64 YRS 2021-07-19 00:00:00 Completed [facility] Influenza Virus Vaccine Quad IM, Preserv and ABX Free 6 MO-64 YRS 2021-07-19 00:00:00 Completed [facility] Influenza Virus Vaccine Quad IM, Preserv and ABX Free 6 MO-64 YRS 2021-07-19 00:00:00 Completed [facility] Influenza Virus Vaccine Quad IM, Preserv and ABX Free 6 MO-64 YRS 2021-07-19 00:00:00 Completed [facility] Influenza Virus Vaccine Quad IM, Preserv and ABX Free 6 MO-64 YRS 2021-07-19 00:00:00 Completed [facility] Influenza Virus Vaccine Quad IM, Preserv and ABX Free 6 MO-64 YRS 2021-07-19 00:00:00 Completed [facility] Influenza Virus Vaccine Quad IM, Preserv and ABX Free 6 MO-64 YRS 2021-07-19 00:00:00 Completed [facility] Influenza Virus Vaccine Quad IM, Preserv and ABX Free 6 MO-64 YRS 2021-07-19 00:00:00 Completed [facility] Influenza Virus Vaccine Quad IM, Preserv and ABX Free 6 MO-64 YRS 2021-07-19 00:00:00 Completed [facility] Influenza Virus Vaccine Quad IM, Preserv and ABX Free 6 MO-64 YRS 2021-07-19 00:00:00 Completed [facility] Influenza Virus Vaccine Quad IM, Preserv and ABX Free 6 MO-64 YRS 2021-07-19 00:00:00 Completed [facility] Influenza Virus Vaccine Quad IM, Preserv and ABX Free 6 MO-64 YRS 2021-07-19 00:00:00 Completed [facility] Influenza Virus Vaccine Quad IM, Preserv and ABX Free 6 MO-64 YRS 2021-07-19 00:00:00 Completed [facility] Influenza Virus Vaccine Quad IM, Preserv and ABX Free 6 MO-64 YRS 2021-07-19 00:00:00 Completed [facility] Influenza Virus Vaccine Quad IM, Preserv and ABX Free 6 MO-64 YRS 2021-07-19 00:00:00 Completed [facility] Influenza Virus Vaccine Quad IM, Preserv and ABX Free 6 MO-64 YRS 2021-07-19 00:00:00 Completed [facility] Influenza Virus Vaccine Quad IM, Preserv and ABX Free 6 MO-64 YRS 2021-07-19 00:00:00 Completed [facility] Influenza Virus Vaccine Quad IM, Preserv and ABX Free 6 MO-64 YRS 2021-07-19 00:00:00 Completed [facility] Influenza Virus Vaccine Quad IM, Preserv and ABX Free 6 MO-64 YRS 2021-07-19 00:00:00 Completed [facility] Influenza Virus Vaccine Quad IM, Preserv and ABX Free 6 MO-64 YRS 2021-07-19 00:00:00 Completed [facility] Influenza Virus Vaccine Quad IM, Preserv and ABX Free 6 MO-64 YRS 2021-07-19 00:00:00 Completed [facility] Influenza Virus Vaccine Quad IM, Preserv and ABX Free 6 MO-64 YRS 2021-07-19 00:00:00 Completed [facility] Influenza Virus Vaccine Quad IM, Preserv and ABX Free 6 MO-64 YRS 2021-07-19 00:00:00 Completed [facility] Influenza Virus Vaccine Quad IM, Preserv and ABX Free 6 MO-64 YRS 2021-07-19 00:00:00 Completed [facility] Influenza Virus Vaccine Quad IM, Preserv and ABX Free 6 MO-64 YRS 2021-07-19 00:00:00 Completed [facility] Influenza Virus Vaccine Quad IM, Preserv and ABX Free 6 MO-64 YRS 2021-07-19 00:00:00 Completed [facility] Influenza Virus Vaccine Quad IM, Preserv and ABX Free 6 MO-64 2021-07-19 00:00:00 Completed [facility] Influenza Virus Vaccine Quad IM, Preserv and ABX Free 6 MO-64 YRS 2021-07-19 00:00:00 Completed [facility] Influenza Virus Vaccine Quad IM, Preserv and ABX Free 6 MO-64 YRS 2021-07-19 00:00:00 Completed [facility] Influenza Virus Vaccine Quad IM, Preserv and ABX Free 6 MO-64 YRS 2021-07-19 00:00:00 Completed [facility] TDAP (ADACEL) VACCINE 2019-06-29 00:00:00 Completed [facility] TDAP (ADACEL) VACCINE 2019-06-29 00:00:00 Completed [facility] TDAP (ADACEL) VACCINE 2019-06-29 00:00:00 Completed [facility] TDAP (ADACEL) VACCINE 2019-06-29 00:00:00 Completed [facility] TDAP (ADACEL) VACCINE 2019-06-29 00:00:00 Completed [facility] TDAP (ADACEL) VACCINE 2019-06-29 00:00:00 Completed [facility] TDAP (ADACEL) VACCINE 2019-06-29 00:00:00 Completed [facility] TDAP (ADACEL) VACCINE 2019-06-29 00:00:00 Completed [facility] TDAP (ADACEL) VACCINE 2019-06-29 00:00:00 Completed [facility] TDAP (ADACEL) VACCINE 2019-06-29 00:00:00 Completed [facility] TDAP (ADACEL) VACCINE 2019-06-29 00:00:00 Completed [facility] TDAP (ADACEL) VACCINE 2019-06-29 00:00:00 Completed [facility] TDAP (ADACEL) VACCINE 2019-06-29 00:00:00 Completed [facility] TDAP (ADACEL) VACCINE 2019-06-29 00:00:00 Completed [facility] TDAP (ADACEL) VACCINE 2019-06-29 00:00:00 Completed [facility] TDAP (ADACEL) VACCINE 2019-06-29 00:00:00 Completed [facility] TDAP (ADACEL) VACCINE 2019-06-29 00:00:00 Completed [facility] TDAP (ADACEL) VACCINE 2019-06-29 00:00:00 Completed [facility] TDAP (ADACEL) VACCINE 2019-06-29 00:00:00 Completed [facility] TDAP (ADACEL) VACCINE 2019-06-29 00:00:00 Completed [facility] TDAP (ADACEL) VACCINE 2019-06-29 00:00:00 Completed [facility] TDAP (ADACEL) VACCINE 2019-06-29 00:00:00 Completed [facility] TDAP (ADACEL) VACCINE 2019-06-29 00:00:00 Completed [facility] TDAP (ADACEL) VACCINE 2019-06-29 00:00:00 Completed [facility] TDAP (ADACEL) VACCINE 2019-06-29 00:00:00 Completed [facility] TDAP (ADACEL) VACCINE 2019-06-29 00:00:00 Completed [facility] TDAP (ADACEL) VACCINE 2019-06-29 00:00:00 Completed [facility] TDAP (ADACEL) VACCINE 2019-06-29 00:00:00 Completed [facility] TDAP (ADACEL) VACCINE 2019-06-29 00:00:00 Completed [facility] TDAP (ADACEL) VACCINE 2019-06-29 00:00:00 Completed [facility] TDAP (ADACEL) VACCINE 2019-06-29 00:00:00 Completed [facility] TDAP (ADACEL) VACCINE 2019-06-29 00:00:00 Completed [facility] TDAP (ADACEL) VACCINE 2019-06-29 00:00:00 Completed [facility] TDAP (ADACEL) VACCINE 2019-06-29 00:00:00 Completed [facility] TDAP (ADACEL) VACCINE 2019-06-29 00:00:00 Completed [facility] TDAP (ADACEL) VACCINE 2019-06-29 00:00:00 Completed [facility] TDAP (ADACEL) VACCINE 2019-06-29 00:00:00 Completed [facility] TDAP (ADACEL) VACCINE 2019-06-29 00:00:00 Completed [facility] TDAP (ADACEL) VACCINE 2019-06-29 00:00:00 Completed [facility] TDAP (ADACEL) VACCINE 2019-06-29 00:00:00 Completed [facility] TDAP (ADACEL) VACCINE 2019-06-29 00:00:00 Completed [facility] TDAP (ADACEL) VACCINE 2019-06-29 00:00:00 Completed [facility] TDAP (ADACEL) VACCINE 2019-06-29 00:00:00 Completed [facility] TDAP (ADACEL) VACCINE 2019-06-29 00:00:00 Completed [facility] TDAP (ADACEL) VACCINE 2019-06-29 00:00:00 Completed [facility] TDAP (ADACEL) VACCINE 2019-06-29 00:00:00 Completed [facility] TDAP (ADACEL) VACCINE 2019-06-29 00:00:00 Completed [facility] TDAP (ADACEL) VACCINE 2019-06-29 00:00:00 Completed [facility] TDAP (ADACEL) VACCINE 2019-06-29 00:00:00 Completed [facility] TDAP (ADACEL) VACCINE 2019-06-29 00:00:00 Completed [facility] TDAP (ADACEL) VACCINE 2019-06-29 00:00:00 Completed [facility] TDAP (ADACEL) VACCINE 2019-06-29 00:00:00 Completed [facility] TDAP (ADACEL) VACCINE 2019-06-29 00:00:00 Completed [facility] TDAP (ADACEL) VACCINE 2019-06-29 00:00:00 Completed [facility] TDAP (ADACEL) VACCINE 2019-06-29 00:00:00 Completed [facility] TDAP (ADACEL) VACCINE 2019-06-29 00:00:00 Completed [facility] TDAP (ADACEL) VACCINE 2019-06-29 00:00:00 Completed [facility] TDAP (ADACEL) VACCINE 2019-06-29 00:00:00 Completed [facility] TDAP (ADACEL) VACCINE 2019-06-29 00:00:00 Completed [facility] TDAP (ADACEL) VACCINE 2019-06-29 00:00:00 Completed [facility] TDAP (ADACEL) VACCINE 2019-06-29 00:00:00 Completed [facility] TDAP (ADACEL) VACCINE 2019-06-29 00:00:00 Completed [facility] TDAP (ADACEL) VACCINE 2019-06-29 00:00:00 Completed [facility] TDAP (ADACEL) VACCINE 2019-06-29 00:00:00 Completed [facility] TDAP (ADACEL) VACCINE 2019-06-29 00:00:00 Completed [facility] TDAP (ADACEL) VACCINE 2019-06-29 00:00:00 Completed [facility] TDAP (ADACEL) VACCINE 2019-06-29 00:00:00 Completed [facility] TDAP (ADACEL) VACCINE 2019-06-29 00:00:00 Completed [facility] TDAP (ADACEL) VACCINE 2019-06-29 00:00:00 Completed [facility] TDAP (ADACEL) VACCINE 2019-06-29 00:00:00 Completed [facility] TDAP (ADACEL) VACCINE 2019-06-29 00:00:00 Completed [facility] TDAP (ADACEL) VACCINE 2019-06-29 00:00:00 Completed [facility] TDAP (ADACEL) VACCINE 2019-06-29 00:00:00 Completed [facility] TDAP (ADACEL) VACCINE 2019-06-29 00:00:00 Completed [facility] TDAP (ADACEL) VACCINE 2019-06-29 00:00:00 Completed [facility] TDAP (ADACEL) VACCINE 2019-06-29 00:00:00 Completed [facility] TDAP (ADACEL) VACCINE 2019-06-29 00:00:00 Completed [facility] TDAP (ADACEL) VACCINE 2019-06-29 00:00:00 Completed [facility] TDAP (ADACEL) VACCINE 2019-06-29 00:00:00 Completed [facility] TDAP (ADACEL) VACCINE 2019-06-29 00:00:00 Completed [facility] TDAP (ADACEL) VACCINE 2019-06-29 00:00:00 Completed [facility] Influenza Virus Vaccine Quad .5 mL IM 6+ MO 2019-02-11 00:00:00 Completed [facility] Influenza Virus Vaccine Quad .5 mL IM 6+ MO 2019-02-11 00:00:00 Completed [facility] Influenza Virus Vaccine Quad .5 mL IM 6+ MO 2019-02-11 00:00:00 Completed [facility] Influenza Virus Vaccine Quad .5 mL IM 6+ MO 2019-02-11 00:00:00 Completed [facility] Influenza Virus Vaccine Quad .5 mL IM 6+ MO 2019-02-11 00:00:00 Completed [facility] Influenza Virus Vaccine Quad .5 mL IM 6+ MO 2019-02-11 00:00:00 Completed [facility] Influenza Virus Vaccine Quad .5 mL IM 6+ MO 2019-02-11 00:00:00 Completed [facility] Influenza Virus Vaccine Quad .5 mL IM 6+ MO 2019-02-11 00:00:00 Completed [facility] Influenza Virus Vaccine Quad .5 mL IM 6+ MO 2019-02-11 00:00:00 Completed [facility] Influenza Virus Vaccine Quad .5 mL IM 6+ MO 2019-02-11 00:00:00 Completed [facility] Influenza Virus Vaccine Quad .5 mL IM 6+ MO 2019-02-11 00:00:00 Completed [facility] Influenza Virus Vaccine Quad .5 mL IM 6+ MO 2019-02-11 00:00:00 Completed [facility] Influenza Virus Vaccine Quad .5 mL IM 6+ MO 2019-02-11 00:00:00 Completed [facility] Influenza Virus Vaccine Quad .5 mL IM 6+ MO 2019-02-11 00:00:00 Completed [facility] Influenza Virus Vaccine Quad .5 mL IM 6+ MO 2019-02-11 00:00:00 Completed [facility] Influenza Virus Vaccine Quad .5 mL IM 6+ MO 2019-02-11 00:00:00 Completed [facility] Influenza Virus Vaccine Quad .5 mL IM 6+ MO 2019-02-11 00:00:00 Completed [facility] Influenza Virus Vaccine Quad .5 mL IM 6+ MO 2019-02-11 00:00:00 Completed [facility] Influenza Virus Vaccine Quad .5 mL IM 6+ MO 2019-02-11 00:00:00 Completed [facility] Influenza Virus Vaccine Quad .5 mL IM 6+ MO 2019-02-11 00:00:00 Completed [facility] Influenza Virus Vaccine Quad .5 mL IM 6+ MO 2019-02-11 00:00:00 Completed [facility] Influenza Virus Vaccine Quad .5 mL IM 6+ MO 2019-02-11 00:00:00 Completed [facility] Influenza Virus Vaccine Quad .5 mL IM 6+ MO 2019-02-11 00:00:00 Completed [facility] Influenza Virus Vaccine Quad .5 mL IM 6+ MO 2019-02-11 00:00:00 Completed [facility] Influenza Virus Vaccine Quad .5 mL IM 6+ MO 2019-02-11 00:00:00 Completed [facility] Influenza Virus Vaccine Quad .5 mL IM 6+ MO 2019-02-11 00:00:00 Completed [facility] Influenza Virus Vaccine Quad .5 mL IM 6+ MO 2019-02-11 00:00:00 Completed [facility] Influenza Virus Vaccine Quad .5 mL IM 6+ MO 2019-02-11 00:00:00 Completed [facility] Influenza Virus Vaccine Quad .5 mL IM 6+ MO 2019-02-11 00:00:00 Completed [facility] Influenza Virus Vaccine Quad .5 mL IM 6+ MO 2019-02-11 00:00:00 Completed [facility] Influenza Virus Vaccine Quad .5 mL IM 6+ MO 2019-02-11 00:00:00 Completed [facility] Influenza Virus Vaccine Quad .5 mL IM 6+ MO 2019-02-11 00:00:00 Completed [facility] Influenza Virus Vaccine Quad .5 mL IM 6+ MO 2019-02-11 00:00:00 Completed [facility] Influenza Virus Vaccine Quad .5 mL IM 6+ MO 2019-02-11 00:00:00 Completed [facility] Influenza Virus Vaccine Quad .5 mL IM 6+ MO 2019-02-11 00:00:00 Completed [facility] Influenza Virus Vaccine Quad .5 mL IM 6+ MO 2019-02-11 00:00:00 Completed [facility] Influenza Virus Vaccine Quad .5 mL IM 6+ MO 2019-02-11 00:00:00 Completed [facility] Influenza Virus Vaccine Quad .5 mL IM 6+ MO 2019-02-11 00:00:00 Completed [facility] Influenza Virus Vaccine Quad .5 mL IM 6+ MO 2019-02-11 00:00:00 Completed [facility] Influenza Virus Vaccine Quad .5 mL IM 6+ MO 2019-02-11 00:00:00 Completed [facility] Influenza Virus Vaccine Quad .5 mL IM 6+ MO 2019-02-11 00:00:00 Completed [facility] Influenza Virus Vaccine Quad .5 mL IM 6+ MO 2019-02-11 00:00:00 Completed [facility] Influenza Virus Vaccine Quad .5 mL IM 6+ MO 2019-02-11 00:00:00 Completed [facility] Influenza Virus Vaccine Quad .5 mL IM 6+ MO 2019-02-11 00:00:00 Completed [facility] Influenza Virus Vaccine Quad .5 mL IM 6+ MO 2019-02-11 00:00:00 Completed [facility] Influenza Virus Vaccine Quad .5 mL IM 6+ MO 2019-02-11 00:00:00 Completed [facility] Influenza Virus Vaccine Quad .5 mL IM 6+ MO 2019-02-11 00:00:00 Completed [facility] Influenza Virus Vaccine Quad .5 mL IM 6+ MO 2019-02-11 00:00:00 Completed [facility] Influenza Virus Vaccine Quad .5 mL IM 6+ MO 2019-02-11 00:00:00 Completed [facility] Influenza Virus Vaccine Quad .5 mL IM 6+ MO 2019-02-11 00:00:00 Completed [facility] Influenza Virus Vaccine Quad .5 mL IM 6+ MO 2019-02-11 00:00:00 Completed [facility] Influenza Virus Vaccine Quad .5 mL IM 6+ MO 2019-02-11 00:00:00 Completed [facility] Influenza Virus Vaccine Quad .5 mL IM 6+ MO 2019-02-11 00:00:00 Completed [facility] Influenza Virus Vaccine Quad .5 mL IM 6+ MO 2019-02-11 00:00:00 Completed [facility] Influenza Virus Vaccine Quad .5 mL IM 6+ MO 2019-02-11 00:00:00 Completed [facility] Influenza Virus Vaccine Quad .5 mL IM 6+ MO 2019-02-11 00:00:00 Completed [facility] Influenza Virus Vaccine Quad .5 mL IM 6+ MO 2019-02-11 00:00:00 Completed [facility] Influenza Virus Vaccine Quad .5 mL IM 6+ MO 2019-02-11 00:00:00 Completed [facility] Influenza Virus Vaccine Quad .5 mL IM 6+ MO 2019-02-11 00:00:00 Completed [facility] Influenza Virus Vaccine Quad .5 mL IM 6+ MO 2019-02-11 00:00:00 Completed [facility] Influenza Virus Vaccine Quad .5 mL IM 6+ MO 2019-02-11 00:00:00 Completed [facility] Influenza Virus Vaccine Quad .5 mL IM 6+ MO 2019-02-11 00:00:00 Completed [facility] Influenza Virus Vaccine Quad .5 mL IM 6+ MO 2019-02-11 00:00:00 Completed [facility] Influenza Virus Vaccine Quad .5 mL IM 6+ MO 2019-02-11 00:00:00 Completed [facility] Influenza Virus Vaccine Quad .5 mL IM 6+ MO 2019-02-11 00:00:00 Completed [facility] Influenza Virus Vaccine Quad .5 mL IM 6+ MO 2019-02-11 00:00:00 Completed [facility] Influenza Virus Vaccine Quad .5 mL IM 6+ MO 2019-02-11 00:00:00 Completed [facility] Influenza Virus Vaccine Quad .5 mL IM 6+ MO 2019-02-11 00:00:00 Completed [facility] Influenza Virus Vaccine Quad .5 mL IM 6+ MO 2019-02-11 00:00:00 Completed [facility] Influenza Virus Vaccine Quad .5 mL IM 6+ MO 2019-02-11 00:00:00 Completed [facility] Influenza Virus Vaccine Quad .5 mL IM 6+ MO 2019-02-11 00:00:00 Completed [facility] Influenza Virus Vaccine Quad .5 mL IM 6+ MO 2019-02-11 00:00:00 Completed [facility] Influenza Virus Vaccine Quad .5 mL IM 6+ MO 2019-02-11 00:00:00 Completed [facility] Influenza Virus Vaccine Quad .5 mL IM 6+ MO 2019-02-11 00:00:00 Completed [facility] Influenza Virus Vaccine Quad .5 mL IM 6+ MO 2019-02-11 00:00:00 Completed [facility] Influenza Virus Vaccine Quad .5 mL IM 6+ MO 2019-02-11 00:00:00 Completed [facility] Influenza Virus Vaccine Quad .5 mL IM 6+ MO 2019-02-11 00:00:00 Completed [facility] Influenza Virus Vaccine Quad .5 mL IM 6+ MO 2019-02-11 00:00:00 Completed [facility] Influenza Virus Vaccine Quad .5 mL IM 6+ MO 2019-02-11 00:00:00 Completed [facility] Influenza Virus Vaccine Quad .5 mL IM 6+ MO 2019-02-11 00:00:00 Completed [facility] Influenza Virus Vaccine Quad .5 mL IM 6+ MO 2019-02-11 00:00:00 Completed [facility] Varicella (varivax)(chicken pox) 2018-02-12 00:00:00 Completed [facility] Varicella (varivax)(chicken pox) 2018-02-12 00:00:00 Completed [facility] Varicella (varivax)(chicken pox) 2018-02-12 00:00:00 Completed [facility] Varicella (varivax)(chicken pox) 2018-02-12 00:00:00 Completed [facility] Varicella (varivax)(chicken pox) 2018-02-12 00:00:00 Completed [facility] Varicella (varivax)(chicken pox) 2018-02-12 00:00:00 Completed [facility] Varicella (varivax)(chicken pox) 2018-02-12 00:00:00 Completed [facility] Varicella (varivax)(chicken pox) 2018-02-12 00:00:00 Completed [facility] Varicella (varivax)(chicken pox) 2018-02-12 00:00:00 Completed [facility] Varicella (varivax)(chicken pox) 2018-02-12 00:00:00 Completed [facility] Varicella (varivax)(chicken pox) 2018-02-12 00:00:00 Completed [facility] Varicella (varivax)(chicken pox) 2018-02-12 00:00:00 Completed [facility] Varicella (varivax)(chicken pox) 2018-02-12 00:00:00 Completed [facility] Varicella (varivax)(chicken pox) 2018-02-12 00:00:00 Completed [facility] Varicella (varivax)(chicken pox) 2018-02-12 00:00:00 Completed [facility] Varicella (varivax)(chicken pox) 2018-02-12 00:00:00 Completed [facility] Varicella (varivax)(chicken pox) 2018-02-12 00:00:00 Completed [facility] Varicella (varivax)(chicken pox) 2018-02-12 00:00:00 Completed [facility] Varicella (varivax)(chicken pox) 2018-02-12 00:00:00 Completed [facility] Varicella (varivax)(chicken pox) 2018-02-12 00:00:00 Completed [facility] Varicella (varivax)(chicken pox) 2018-02-12 00:00:00 Completed [facility] Varicella (varivax)(chicken pox) 2018-02-12 00:00:00 Completed [facility] Varicella (varivax)(chicken pox) 2018-02-12 00:00:00 Completed [facility] Varicella (varivax)(chicken pox) 2018-02-12 00:00:00 Completed [facility] Varicella (varivax)(chicken pox) 2018-02-12 00:00:00 Completed [facility] Varicella (varivax)(chicken pox) 2018-02-12 00:00:00 Completed [facility] Varicella (varivax)(chicken pox) 2018-02-12 00:00:00 Completed [facility] Varicella (varivax)(chicken pox) 2018-02-12 00:00:00 Completed [facility] Varicella (varivax)(chicken pox) 2018-02-12 00:00:00 Completed [facility] Varicella (varivax)(chicken pox) 2018-02-12 00:00:00 Completed [facility] Varicella (varivax)(chicken pox) 2018-02-12 00:00:00 Completed [facility] Varicella (varivax)(chicken pox) 2018-02-12 00:00:00 Completed [facility] Varicella (varivax)(chicken pox) 2018-02-12 00:00:00 Completed [facility] Varicella (varivax)(chicken pox) 2018-02-12 00:00:00 Completed [facility] Varicella (varivax)(chicken pox) 2018-02-12 00:00:00 Completed [facility] Varicella (varivax)(chicken pox) 2018-02-12 00:00:00 Completed [facility] Varicella (varivax)(chicken pox) 2018-02-12 00:00:00 Completed [facility] Varicella (varivax)(chicken pox) 2018-02-12 00:00:00 Completed [facility] Varicella (varivax)(chicken pox) 2018-02-12 00:00:00 Completed [facility] Varicella (varivax)(chicken pox) 2018-02-12 00:00:00 Completed [facility] Varicella (varivax)(chicken pox) 2018-02-12 00:00:00 Completed [facility] Varicella (varivax)(chicken pox) 2018-02-12 00:00:00 Completed [facility] Varicella (varivax)(chicken pox) 2018-02-12 00:00:00 Completed [facility] Varicella (varivax)(chicken pox) 2018-02-12 00:00:00 Completed [facility] Varicella (varivax)(chicken pox) 2018-02-12 00:00:00 Completed [facility] Varicella (varivax)(chicken pox) 2018-02-12 00:00:00 Completed [facility] Varicella (varivax)(chicken pox) 2018-02-12 00:00:00 Completed [facility] Varicella (varivax)(chicken pox) 2018-02-12 00:00:00 Completed [facility] Varicella (varivax)(chicken pox) 2018-02-12 00:00:00 Completed [facility] Varicella (varivax)(chicken pox) 2018-02-12 00:00:00 Completed [facility] Varicella (varivax)(chicken pox) 2018-02-12 00:00:00 Completed [facility] Varicella (varivax)(chicken pox) 2018-02-12 00:00:00 Completed [facility] Varicella (varivax)(chicken pox) 2018-02-12 00:00:00 Completed [facility] Varicella (varivax)(chicken pox) 2018-02-12 00:00:00 Completed [facility] Varicella (varivax)(chicken pox) 2018-02-12 00:00:00 Completed [facility] Varicella (varivax)(chicken pox) 2018-02-12 00:00:00 Completed [facility] Varicella (varivax)(chicken pox) 2018-02-12 00:00:00 Completed [facility] Varicella (varivax)(chicken pox) 2018-02-12 00:00:00 Completed [facility] Varicella (varivax)(chicken pox) 2018-02-12 00:00:00 Completed [facility] Varicella (varivax)(chicken pox) 2018-02-12 00:00:00 Completed [facility] Varicella (varivax)(chicken pox) 2018-02-12 00:00:00 Completed [facility] Varicella (varivax)(chicken pox) 2018-02-12 00:00:00 Completed [facility] Varicella (varivax)(chicken pox) 2018-02-12 00:00:00 Completed [facility] Varicella (varivax)(chicken pox) 2018-02-12 00:00:00 Completed [facility] Varicella (varivax)(chicken pox) 2018-02-12 00:00:00 Completed [facility] Varicella (varivax)(chicken pox) 2018-02-12 00:00:00 Completed [facility] Varicella (varivax)(chicken pox) 2018-02-12 00:00:00 Completed [facility] Varicella (varivax)(chicken pox) 2018-02-12 00:00:00 Completed [facility] Varicella (varivax)(chicken pox) 2018-02-12 00:00:00 Completed [facility] Varicella (varivax)(chicken pox) 2018-02-12 00:00:00 Completed [facility] Varicella (varivax)(chicken pox) 2018-02-12 00:00:00 Completed [facility] Varicella (varivax)(chicken pox) 2018-02-12 00:00:00 Completed [facility] Varicella (varivax)(chicken pox) 2018-02-12 00:00:00 Completed [facility] Varicella (varivax)(chicken pox) 2018-02-12 00:00:00 Completed [facility] Varicella (varivax)(chicken pox) 2018-02-12 00:00:00 Completed [facility] Varicella (varivax)(chicken pox) 2018-02-12 00:00:00 Completed [facility] Varicella (varivax)(chicken pox) 2018-02-12 00:00:00 Completed [facility] Varicella (varivax)(chicken pox) 2018-02-12 00:00:00 Completed [facility] Varicella (varivax)(chicken pox) 2018-02-12 00:00:00 Completed [facility] Varicella (varivax)(chicken pox) 2018-02-12 00:00:00 Completed [facility] Varicella (varivax)(chicken pox) 2018-02-12 00:00:00 Completed [facility] TDAP 2017-12-17 00:00:00 Completed [facility] TDAP 2017-12-17 00:00:00 Completed [facility] TDAP 2017-12-17 00:00:00 Completed [facility] TDAP 2017-12-17 00:00:00 Completed [facility] TDAP 2017-12-17 00:00:00 Completed [facility] TDAP 2017-12-17 00:00:00 Completed [facility] TDAP 2017-12-17 00:00:00 Completed [facility] TDAP 2017-12-17 00:00:00 Completed [facility] TDAP 2017-12-17 00:00:00 Completed [facility] TDAP 2017-12-17 00:00:00 Completed [facility] TDAP 2017-12-17 00:00:00 Completed [facility] TDAP 2017-12-17 00:00:00 Completed [facility] TDAP 2017-12-17 00:00:00 Completed [facility] TDAP 2017-12-17 00:00:00 Completed [facility] TDAP 2017-12-17 00:00:00 Completed [facility] TDAP 2017-12-17 00:00:00 Completed [facility] TDAP 2017-12-17 00:00:00 Completed [facility] TDAP 2017-12-17 00:00:00 Completed [facility] TDAP 2017-12-17 00:00:00 Completed [facility] TDAP 2017-12-17 00:00:00 Completed [facility] TDAP 2017-12-17 00:00:00 Completed [facility] TDAP 2017-12-17 00:00:00 Completed [facility] TDAP 2017-12-17 00:00:00 Completed [facility] TDAP 2017-12-17 00:00:00 Completed [facility] TDAP 2017-12-17 00:00:00 Completed [facility] TDAP 2017-12-17 00:00:00 Completed [facility] TDAP 2017-12-17 00:00:00 Completed [facility] TDAP 2017-12-17 00:00:00 Completed [facility] TDAP 2017-12-17 00:00:00 Completed [facility] TDAP 2017-12-17 00:00:00 Completed [facility] TDAP 2017-12-17 00:00:00 Completed [facility] TDAP 2017-12-17 00:00:00 Completed [facility] TDAP 2017-12-17 00:00:00 Completed [facility] TDAP 2017-12-17 00:00:00 Completed [facility] TDAP 2017-12-17 00:00:00 Completed [facility] TDAP 2017-12-17 00:00:00 Completed [facility] TDAP 2017-12-17 00:00:00 Completed [facility] TDAP 2017-12-17 00:00:00 Completed [facility] TDAP 2017-12-17 00:00:00 Completed [facility] TDAP 2017-12-17 00:00:00 Completed [facility] TDAP 2017-12-17 00:00:[address] [facility] TDAP 2017-12-17 00:00:00 Completed [facility] TDAP 2017-12-17 00:00:00 Completed [facility] TDAP 2017-12-17 00:00:00 Completed [facility] TDAP 2017-12-17 00:00:00 Completed [facility] TDAP 2017-12-17 00:00:00 Completed [facility] TDAP 2017-12-17 00:00:[address] [facility] TDAP 2017-12-17 00:00:[address] [facility] TDAP 2017-12-17 00:00:00 Completed [facility] TDAP 2017-12-17 00:00:00 Completed [facility] TDAP 2017-12-17 00:00:00 Completed [facility] TDAP 2017-12-17 00:00:00 Completed [facility] TDAP 2017-12-17 00:00:00 Completed [facility] TDAP 2017-12-17 00:00:00 Completed [facility] TDAP 2017-12-17 00:00:00 Completed [facility] TDAP 2017-12-17 00:00:00 Completed [facility] TDAP 2017-12-17 00:00:00 Completed [facility] TDAP 2017-12-17 00:00:00 Completed [facility] TDAP 2017-12-17 00:00:00 Completed [facility] TDAP 2017-12-17 00:00:00 Completed [facility] TDAP 2017-12-17 00:00:00 Completed [facility] TDAP 2017-12-17 00:00:00 Completed [facility] TDAP 2017-12-17 00:00:00 Completed [facility] TDAP 2017-12-17 00:00:00 Completed [facility] TDAP 2017-12-17 00:00:00 Completed [facility] TDAP 2017-12-17 00:00:00 Completed [facility] TDAP 2017-12-17 00:00:00 Completed [facility] TDAP 2017-12-17 00:00:[address] [facility] TDAP 2017-12-17 00:00:[address] [facility] TDAP 2017-12-17 00:00:[address] [facility] TDAP 2017-12-17 00:00:[address] [facility] TDAP 2017-12-17 00:00:00 Completed [facility] TDAP 2017-12-17 00:00:00 Completed [facility] TDAP 2017-12-17 00:00:00 Completed [facility] TDAP 2017-12-17 00:00:[address] [facility] TDAP 2017-12-17 00:00:00 Completed [facility] TDAP 2017-12-17 00:00:00 Completed [facility] TDAP 2017-12-17 00:00:00 Completed [facility] TDAP 2017-12-17 00:00:00 Completed [facility] TDAP 2017-12-17 00:00:00 Completed [facility] TDAP 2017-12-17 00:00:00 Completed [facility] Varicella (varivax)(chicken pox) 2017-01-03 00:00:00 Completed [facility] Varicella (varivax)(chicken pox) 2017-01-03 00:00:00 Completed [facility] Varicella (varivax)(chicken pox) 2017-01-03 00:00:00 Completed [facility] Varicella (varivax)(chicken pox) 2017-01-03 00:00:00 Completed [facility] Varicella (varivax)(chicken pox) 2017-01-03 00:00:00 Completed [facility] Varicella (varivax)(chicken pox) 2017-01-03 00:00:00 Completed [facility] Varicella (varivax)(chicken pox) 2017-01-03 00:00:00 Completed [facility] Varicella (varivax)(chicken pox) 2017-01-03 00:00:00 Completed [facility] Varicella (varivax)(chicken pox) 2017-01-03 00:00:00 Completed [facility] Varicella (varivax)(chicken pox) 2017-01-03 00:00:00 Completed [facility] Varicella (varivax)(chicken pox) 2017-01-03 00:00:00 Completed [facility] Varicella (varivax)(chicken pox) 2017-01-03 00:00:00 Completed [facility] Varicella (varivax)(chicken pox) 2017-01-03 00:00:00 Completed [facility] Varicella (varivax)(chicken pox) 2017-01-03 00:00:00 Completed [facility] Varicella (varivax)(chicken pox) 2017-01-03 00:00:00 Completed [facility] Varicella (varivax)(chicken pox) 2017-01-03 00:00:00 Completed [facility] Varicella (varivax)(chicken pox) 2017-01-03 00:00:00 Completed [facility] Varicella (varivax)(chicken pox) 2017-01-03 00:00:00 Completed [facility] Varicella (varivax)(chicken pox) 2017-01-03 00:00:00 Completed [facility] Varicella (varivax)(chicken pox) 2017-01-03 00:00:00 Completed [facility] Varicella (varivax)(chicken pox) 2017-01-03 00:00:00 Completed [facility] Varicella (varivax)(chicken pox) 2017-01-03 00:00:00 Completed [facility] Varicella (varivax)(chicken pox) 2017-01-03 00:00:00 Completed [facility] Varicella (varivax)(chicken pox) 2017-01-03 00:00:00 Completed [facility] Varicella (varivax)(chicken pox) 2017-01-03 00:00:00 Completed [facility] Varicella (varivax)(chicken pox) 2017-01-03 00:00:00 Completed [facility] Varicella (varivax)(chicken pox) 2017-01-03 00:00:00 Completed [facility] Varicella (varivax)(chicken pox) 2017-01-03 00:00:00 Completed [facility] Varicella (varivax)(chicken pox) 2017-01-03 00:00:00 Completed [facility] Varicella (varivax)(chicken pox) 2017-01-03 00:00:00 Completed [facility] Varicella (varivax)(chicken pox) 2017-01-03 00:00:00 Completed [facility] Varicella (varivax)(chicken pox) 2017-01-03 00:00:00 Completed [facility] Varicella (varivax)(chicken pox) 2017-01-03 00:00:00 Completed [facility] Varicella (varivax)(chicken pox) 2017-01-03 00:00:00 Completed [facility] Varicella (varivax)(chicken pox) 2017-01-03 00:00:00 Completed [facility] Varicella (varivax)(chicken pox) 2017-01-03 00:00:00 Completed [facility] Varicella (varivax)(chicken pox) 2017-01-03 00:00:00 Completed [facility] Varicella (varivax)(chicken pox) 2017-01-03 00:00:00 Completed [facility] Varicella (varivax)(chicken pox) 2017-01-03 00:00:00 Completed [facility] Varicella (varivax)(chicken pox) 2017-01-03 00:00:00 Completed [facility] Varicella (varivax)(chicken pox) 2017-01-03 00:00:00 Completed [facility] Varicella (varivax)(chicken pox) 2017-01-03 00:00:00 Completed [facility] Varicella (varivax)(chicken pox) 2017-01-03 00:00:00 Completed [facility] Varicella (varivax)(chicken pox) 2017-01-03 00:00:00 Completed [facility] Varicella (varivax)(chicken pox) 2017-01-03 00:00:00 Completed [facility] Varicella (varivax)(chicken pox) 2017-01-03 00:00:00 Completed [facility] Varicella (varivax)(chicken pox) 2017-01-03 00:00:00 Completed [facility] Varicella (varivax)(chicken pox) 2017-01-03 00:00:00 Completed [facility] Varicella (varivax)(chicken pox) 2017-01-03 00:00:00 Completed [facility] Varicella (varivax)(chicken pox) 2017-01-03 00:00:00 Completed [facility] Varicella (varivax)(chicken pox) 2017-01-03 00:00:00 Completed [facility] Varicella (varivax)(chicken pox) 2017-01-03 00:00:00 Completed [facility] Varicella (varivax)(chicken pox) 2017-01-03 00:00:00 Completed [facility] Varicella (varivax)(chicken pox) 2017-01-03 00:00:00 Completed [facility] Varicella (varivax)(chicken pox) 2017-01-03 00:00:00 Completed [facility] Varicella (varivax)(chicken pox) 2017-01-03 00:00:00 Completed [facility] Varicella (varivax)(chicken pox) 2017-01-03 00:00:00 Completed [facility] Varicella (varivax)(chicken pox) 2017-01-03 00:00:00 Completed [facility] Varicella (varivax)(chicken pox) 2017-01-03 00:00:00 Completed [facility] Varicella (varivax)(chicken pox) 2017-01-03 00:00:00 Completed [facility] Varicella (varivax)(chicken pox) 2017-01-03 00:00:00 Completed [facility] Varicella (varivax)(chicken pox) 2017-01-03 00:00:00 Completed [facility] Varicella (varivax)(chicken pox) 2017-01-03 00:00:00 Completed [facility] Varicella (varivax)(chicken pox) 2017-01-03 00:00:00 Completed [facility] Varicella (varivax)(chicken pox) 2017-01-03 00:00:00 Completed [facility] Varicella (varivax)(chicken pox) 2017-01-03 00:00:00 Completed [facility] Varicella (varivax)(chicken pox) 2017-01-03 00:00:00 Completed [facility] Varicella (varivax)(chicken pox) 2017-01-03 00:00:00 Completed [facility] Varicella (varivax)(chicken pox) 2017-01-03 00:00:00 Completed [facility] Varicella (varivax)(chicken pox) 2017-01-03 00:00:00 Completed [facility] Varicella (varivax)(chicken pox) 2017-01-03 00:00:00 Completed [facility] Varicella (varivax)(chicken pox) 2017-01-03 00:00:00 Completed [facility] Varicella (varivax)(chicken pox) 2017-01-03 00:00:00 Completed [facility] Varicella (varivax)(chicken pox) 2017-01-03 00:00:00 Completed [facility] Varicella (varivax)(chicken pox) 2017-01-03 00:00:00 Completed [facility] Varicella (varivax)(chicken pox) 2017-01-03 00:00:00 Completed [facility] Varicella (varivax)(chicken pox) 2017-01-03 00:00:00 Completed [facility] Varicella (varivax)(chicken pox) 2017-01-03 00:00:00 Completed [facility] Varicella (varivax)(chicken pox) 2017-01-03 00:00:00 Completed [facility] Varicella (varivax)(chicken pox) 2017-01-03 00:00:00 Completed [facility] Varicella (varivax)(chicken pox) 2017-01-03 00:00:00 Completed [facility] TDAP 2016-10-03 00:00:00 Completed [facility] TDAP 2016-10-03 00:00:00 Completed [facility] TDAP 2016-10-03 00:00:00 Completed [facility] TDAP 2016-10-03 00:00:00 Completed [facility] TDAP 2016-10-03 00:00:00 Completed [facility] TDAP 2016-10-03 00:00:00 Completed [facility] TDAP 2016-10-03 00:00:00 Completed [facility] TDAP 2016-10-03 00:00:00 Completed [facility] TDAP 2016-10-03 00:00:00 Completed [facility] TDAP 2016-10-03 00:00:00 Completed [facility] TDAP 2016-10-03 00:00:00 Completed [facility] TDAP 2016-10-03 00:00:00 Completed [facility] TDAP 2016-10-03 00:00:00 Completed [facility] TDAP 2016-10-03 00:00:00 Completed [facility] TDAP 2016-10-03 00:00:00 Completed [facility] TDAP 2016-10-03 00:00:00 Completed [facility] TDAP 2016-10-03 00:00:00 Completed [facility] TDAP 2016-10-03 00:00:00 Completed [facility] TDAP 2016-10-03 00:00:00 Completed [facility] TDAP 2016-10-03 00:00:00 Completed [facility] TDAP 2016-10-03 00:00:00 Completed [facility] TDAP 2016-10-03 00:00:00 Completed [facility] TDAP 2016-10-03 00:00:00 Completed [facility] TDAP 2016-10-03 00:00:00 Completed [facility] TDAP 2016-10-03 00:00:00 Completed [facility] TDAP 2016-10-03 00:00:00 Completed [facility] TDAP 2016-10-03 00:00:00 Completed [facility] TDAP 2016-10-03 00:00:00 Completed [facility] TDAP 2016-10-03 00:00:00 Completed [facility] TDAP 2016-10-03 00:00:00 Completed [facility] TDAP 2016-10-03 00:00:00 Completed [facility] TDAP 2016-10-03 00:00:00 Completed [facility] TDAP 2016-10-03 00:00:00 Completed [facility] TDAP 2016-10-03 00:00:00 Completed [facility] TDAP 2016-10-03 00:00:00 Completed [facility] TDAP 2016-10-03 00:00:00 Completed [facility] TDAP 2016-10-03 00:00:00 Completed [facility] TDAP 2016-10-03 00:00:00 Completed [facility] TDAP 2016-10-03 00:00:00 Completed [facility] TDAP 2016-10-03 00:00:00 Completed [facility] TDAP 2016-10-03 00:00:00 Completed [facility] TDAP 2016-10-03 00:00:00 Completed [facility] TDAP 2016-10-03 00:00:00 Completed [facility] TDAP 2016-10-03 00:00:00 Completed [facility] TDAP 2016-10-03 00:00:00 Completed [facility] TDAP 2016-10-03 00:00:00 Completed [facility] TDAP 2016-10-03 00:00:00 Completed [facility] TDAP 2016-10-03 00:00:00 Completed [facility] TDAP 2016-10-03 00:00:00 Completed [facility] TDAP 2016-10-03 00:00:00 Completed [facility] TDAP 2016-10-03 00:00:00 Completed [facility] TDAP 2016-10-03 00:00:00 Completed [facility] TDAP 2016-10-03 00:00:00 Completed [facility] TDAP 2016-10-03 00:00:00 Completed [facility] TDAP 2016-10-03 00:00:00 Completed [facility] TDAP 2016-10-03 00:00:00 Completed [facility] TDAP 2016-10-03 00:00:00 Completed [facility] TDAP 2016-10-03 00:00:00 Completed [facility] TDAP 2016-10-03 00:00:00 Completed [facility] TDAP 2016-10-03 00:00:00 Completed [facility] TDAP 2016-10-03 00:00:00 Completed [facility] TDAP 2016-10-03 00:00:00 Completed [facility] TDAP 2016-10-03 00:00:00 Completed [facility] TDAP 2016-10-03 00:00:00 Completed [facility] TDAP 2016-10-03 00:00:00 Completed [facility] TDAP 2016-10-03 00:00:00 Completed [facility] TDAP 2016-10-03 00:00:00 Completed [facility] TDAP 2016-10-03 00:00:00 Completed [facility] TDAP 2016-10-03 00:00:00 Completed [facility] TDAP 2016-10-03 00:00:00 Completed [facility] TDAP 2016-10-03 00:00:00 Completed [facility] TDAP 2016-10-03 00:00:00 Completed [facility] TDAP 2016-10-03 00:00:00 Completed [facility] TDAP 2016-10-03 00:00:00 Completed [facility] TDAP 2016-10-03 00:00:00 Completed [facility] TDAP 2016-10-03 00:00:00 Completed [facility] TDAP 2016-10-03 00:00:00 Completed [facility] TDAP 2016-10-03 00:00:00 Completed [facility] TDAP 2016-10-03 00:00:00 Completed [facility] TDAP 2016-10-03 00:00:00 Completed [facility] TDAP 2016-10-03 00:00:00 Completed [facility] HPV 2010-07-26 00:00:00 Completed [facility] HPV 2010-07-26 00:00:00 Completed [facility] HPV 2010-07-26 00:00:00 Completed [facility] HPV 2010-07-26 00:00:00 Completed [facility] HPV 2010-07-26 00:00:00 Completed [facility] HPV 2010-07-26 00:00:00 Completed [facility] HPV 2010-07-26 00:00:00 Completed [facility] HPV 2010-07-26 00:00:00 Completed [facility] HPV 2010-07-26 00:00:00 Completed [facility] HPV 2010-07-26 00:00:00 Completed [facility] HPV 2010-07-26 00:00:00 Completed [facility] HPV 2010-07-26 00:00:00 Completed [facility] HPV 2010-07-26 00:00:00 Completed [facility] HPV 2010-07-26 00:00:00 Completed [facility] HPV 2010-07-26 00:00:00 Completed [facility] HPV 2010-07-26 00:00:00 Completed [facility] HPV 2010-07-26 00:00:00 Completed [facility] HPV 2010-07-26 00:00:00 Completed [facility] HPV 2010-07-26 00:00:[address] [facility] HPV 2010-07-26 00:00:[address] [facility] HPV 2010-07-26 00:00:[address] [facility] HPV 2010-07-26 00:00:[address] [facility] HPV 2010-07-26 00:00:[address] [facility] HPV 2010-07-26 00:00:00 Completed [facility] HPV 2010-07-26 00:00:00 Completed [facility] HPV 2010-07-26 00:00:[address] [facility] HPV 2010-07-26 00:00:00 Completed [facility] HPV 2010-07-26 00:00:00 Completed [facility] HPV 2010-07-26 00:00:00 Completed [facility] HPV 2010-07-26 00:00:00 Completed [facility] HPV 2010-07-26 00:00:00 Completed [facility] HPV 2010-07-26 00:00:00 Completed [facility] HPV 2010-07-26 00:00:00 Completed [facility] HPV 2010-07-26 00:00:00 Completed [facility] HPV 2010-07-26 00:00:00 Completed [facility] HPV 2010-07-26 00:00:00 Completed [facility] HPV 2010-07-26 00:00:00 Completed [facility] HPV 2010-07-26 00:00:00 Completed [facility] HPV 2010-07-26 00:00:00 Completed [facility] HPV 2010-07-26 00:00:00 Completed [facility] HPV 2010-07-26 00:00:00 Completed [facility] HPV 2010-07-26 00:00:[address] [facility] HPV 2010-07-26 00:00:[address] [facility] HPV 2010-07-26 00:00:00 Completed [facility] HPV 2010-07-26 00:00:[address] [facility] HPV 2010-07-26 00:00:[address] [facility] HPV 2010-07-26 00:00:[address] [facility] HPV 2010-07-26 00:00:[address] [facility] HPV 2010-07-26 00:00:00 Completed [facility] HPV 2010-07-26 00:00:00 Completed [facility] HPV 2010-07-26 00:00:00 Completed [facility] HPV 2010-07-26 00:00:00 Completed [facility] HPV 2010-07-26 00:00:00 Completed [facility] HPV 2010-07-26 00:00:00 Completed [facility] HPV 2010-07-26 00:00:00 Completed [facility] HPV 2010-07-26 00:00:00 Completed [facility] HPV 2010-07-26 00:00:00 Completed [facility] HPV 2010-07-26 00:00:00 Completed [facility] HPV 2010-07-26 00:00:00 Completed [facility] HPV 2010-07-26 00:00:00 Completed [facility] HPV 2010-07-26 00:00:00 Completed [facility] HPV 2010-07-26 00:00:00 Completed [facility] HPV 2010-07-26 00:00:00 Completed [facility] HPV 2010-07-26 00:00:00 Completed [facility] HPV 2010-07-26 00:00:00 Completed [facility] HPV 2010-07-26 00:00:00 Completed [facility] HPV 2010-07-26 00:00:00 Completed [facility] HPV 2010-07-26 00:00:00 Completed [facility] HPV 2010-07-26 00:00:00 Completed [facility] HPV 2010-07-26 00:00:00 Completed [facility] HPV 2010-07-26 00:00:00 Completed [facility] HPV 2010-07-26 00:00:00 Completed [facility] HPV 2010-07-26 00:00:00 Completed [facility] HPV 2010-07-26 00:00:00 Completed [facility] HPV 2010-07-26 00:00:00 Completed [facility] HPV 2010-07-26 00:00:00 Completed [facility] HPV 2010-07-26 00:00:00 Completed [facility] HPV 2010-07-26 00:00:00 Completed [facility] HPV 2010-07-26 00:00:00 Completed [facility] HPV 2010-07-26 00:00:00 Completed [facility] HPV 2010-07-26 00:00:00 Completed [facility] HPV 2010-06-20 00:00:00 Completed [facility] HPV 2010-06-20 00:00:00 Completed [facility] HPV 2010-06-20 00:00:00 Completed [facility] HPV 2010-06-20 00:00:00 Completed [facility] HPV 2010-06-20 00:00:00 Completed [facility] HPV 2010-06-20 00:00:00 Completed [facility] HPV 2010-06-20 00:00:00 Completed [facility] HPV 2010-06-20 00:00:00 Completed [facility] HPV 2010-06-20 00:00:00 Completed [facility] HPV 2010-06-20 00:00:00 Completed [facility] HPV 2010-06-20 00:00:00 Completed [facility] HPV 2010-06-20 00:00:00 Completed [facility] HPV 2010-06-20 00:00:00 Completed [facility] HPV 2010-06-20 00:00:00 Completed [facility] HPV 2010-06-20 00:00:00 Completed [facility] HPV 2010-06-20 00:00:00 Completed [facility] HPV 2010-06-20 00:00:00 Completed [facility] HPV 2010-06-20 00:00:00 Completed [facility] HPV 2010-06-20 00:00:00 Completed [facility] HPV 2010-06-20 00:00:00 Completed [facility] HPV 2010-06-20 00:00:00 Completed [facility] HPV 2010-06-20 00:00:00 Completed [facility] HPV 2010-06-20 00:00:00 Completed [facility] HPV 2010-06-20 00:00:00 Completed [facility] HPV 2010-06-20 00:00:00 Completed [facility] HPV 2010-06-20 00:00:00 Completed [facility] HPV 2010-06-20 00:00:00 Completed [facility] HPV 2010-06-20 00:00:00 Completed [facility] HPV 2010-06-20 00:00:00 Completed [facility] HPV 2010-06-20 00:00:00 Completed [facility] HPV 2010-06-20 00:00:00 Completed [facility] HPV 2010-06-20 00:00:00 Completed [facility] HPV 2010-06-20 00:00:00 Completed [facility] HPV 2010-06-20 00:00:00 Completed [facility] HPV 2010-06-20 00:00:00 Completed [facility] HPV 2010-06-20 00:00:00 Completed [facility] HPV 2010-06-20 00:00:00 Completed [facility] HPV 2010-06-20 00:00:00 Completed [facility] HPV 2010-06-20 00:00:00 Completed [facility] HPV 2010-06-20 00:00:00 Completed [facility] HPV 2010-06-20 00:00:00 Completed [facility] HPV 2010-06-20 00:00:00 Completed [facility] HPV 2010-06-20 00:00:00 Completed [facility] HPV 2010-06-20 00:00:00 Completed [facility] HPV 2010-06-20 00:00:00 Completed [facility] HPV 2010-06-20 00:00:00 Completed [facility] HPV 2010-06-20 00:00:00 Completed [facility] HPV 2010-06-20 00:00:00 Completed [facility] HPV 2010-06-20 00:00:00 Completed [facility] HPV 2010-06-20 00:00:00 Completed [facility] HPV 2010-06-20 00:00:00 Completed [facility] HPV 2010-06-20 00:00:00 Completed [facility] HPV 2010-06-20 00:00:00 Completed [facility] HPV 2010-06-20 00:00:00 Completed [facility] HPV 2010-06-20 00:00:00 Completed [facility] HPV 2010-06-20 00:00:00 Completed [facility] HPV 2010-06-20 00:00:00 Completed [facility] HPV 2010-06-20 00:00:00 Completed [facility] HPV 2010-06-20 00:00:00 Completed [facility] HPV 2010-06-20 00:00:00 Completed [facility] HPV 2010-06-20 00:00:00 Completed [facility] HPV 2010-06-20 00:00:00 Completed [facility] HPV 2010-06-20 00:00:00 Completed [facility] HPV 2010-06-20 00:00:00 Completed [facility] HPV 2010-06-20 00:00:00 Completed [facility] HPV 2010-06-20 00:00:00 Completed [facility] HPV 2010-06-20 00:00:00 Completed [facility] HPV 2010-06-20 00:00:00 Completed [facility] HPV 2010-06-20 00:00:00 Completed [facility] HPV 2010-06-20 00:00:00 Completed [facility] HPV 2010-06-20 00:00:00 Completed [facility] HPV 2010-06-20 00:00:00 Completed [facility] HPV 2010-06-20 00:00:00 Completed [facility] HPV 2010-06-20 00:00:00 Completed [facility] HPV 2010-06-20 00:00:00 Completed [facility] Varicella (varivax)(chicken pox) 2010-06-20 00:00:00 Completed [facility] TDAP 2010-06-20 00:00:00 Completed [facility] Meningococcal Polysaccharide (groups A, C, Y and W-135) conjugate vaccine (MCV4P) 2010-06-20 00:00:00 Completed [facility] DTaP, Unspecified Formulation 2010-06-20 00:00:00 Completed [facility] HPV 2010-06-20 00:00:00 Completed [facility] Varicella (varivax)(chicken pox) 2010-06-20 00:00:00 Completed [facility] TDAP 2010-06-20 00:00:00 Completed [facility] Meningococcal Polysaccharide (groups A, C, Y and W-135) conjugate vaccine (MCV4P) 2010-06-20 00:00:00 Completed [facility] DTaP, Unspecified Formulation 2010-06-20 00:00:00 Completed [facility] HPV 2010-06-20 00:00:00 Completed [facility] Varicella (varivax)(chicken pox) 2010-06-20 00:00:00 Completed [facility] TDAP 2010-06-20 00:00:00 Completed [facility] Meningococcal Polysaccharide (groups A, C, Y and W-135) conjugate vaccine (MCV4P) 2010-06-20 00:00:00 Completed [facility] DTaP, Unspecified Formulation 2010-06-20 00:00:00 Completed [facility] HPV 2010-06-20 00:00:00 Completed [facility] Varicella (varivax)(chicken pox) 2010-06-20 00:00:00 Completed [facility] TDAP 2010-06-20 00:00:00 Completed [facility] Meningococcal Polysaccharide (groups A, C, Y and W-135) conjugate vaccine (MCV4P) 2010-06-20 00:00:00 Completed [facility] DTaP, Unspecified Formulation 2010-06-20 00:00:00 Completed [facility] HPV 2010-06-20 00:00:00 Completed [facility] Varicella (varivax)(chicken pox) 2010-06-20 00:00:00 Completed [facility] TDAP 2010-06-20 00:00:00 Completed [facility] Meningococcal Polysaccharide (groups A, C, Y and W-135) conjugate vaccine (MCV4P) 2010-06-20 00:00:00 Completed [facility] DTaP, Unspecified Formulation 2010-06-20 00:00:00 [facility] [place] HPV 2010-06-20 00:00:00 Completed [facility] [place] Varicella (varivax)(chicken pox) 2010-06-20 00:00:00 Completed [facility] [place] TDAP 2010-06-20 00:00:00 Completed [facility] [place] Meningococcal Polysaccharide (groups A, C, Y and W-135) conjugate vaccine (MCV4P) 2010-06-20 00:00:00 Completed [facility] [place] DTaP, Unspecified Formulation 2010-06-20 00:00:00 Completed [facility] [place] HPV 2010-06-20 00:00:00 Completed [facility] [place] Varicella (varivax)(chicken pox) 2010-06-20 00:00:00 Completed [facility] [place] TDAP 2010-06-20 00:00:00 Completed [facility] [place] Meningococcal Polysaccharide (groups A, C, Y and W-135) conjugate vaccine (MCV4P) 2010-06-20 00:00:00 Completed [facility] [place] DTaP, Unspecified Formulation 2010-06-20 00:00:00 Completed [facility] [place] IPV 2001-05-21 00:00:00 Completed [facility] [place] MMR 2001-05-21 00:00:00 Completed [facility] [place] HIB 4 Dose Schedule 2001-05-21 00:00:00 Completed [facility] [place] DTaP, Unspecified Formulation 2001-05-21 00:00:00 Completed [facility] [place] IPV 2001-05-21 00:00:00 Completed [facility] [place] MMR 2001-05-21 00:00:00 Completed [facility] [place] HIB 4 Dose Schedule 2001-05-21 00:00:00 Completed [facility] [place] DTaP, Unspecified Formulation 2001-05-21 00:00:00 Completed [facility] [place] IPV 2001-05-21 00:00:00 Completed [facility] [place] MMR 2001-05-21 00:00:00 Completed [facility] [place] HIB 4 Dose Schedule 2001-05-21 00:00:00 Completed [facility] [place] DTaP, Unspecified Formulation 2001-05-21 00:00:00 Completed [facility] [place] IPV 2001-05-21 00:00:00 Completed [facility] [place] MMR 2001-05-21 00:00:00 Completed [facility] [place] HIB 4 Dose Schedule 2001-05-21 00:00:00 Completed [facility] [place] DTaP, Unspecified Formulation 2001-05-21 00:00:00 Completed [facility] [place] IPV 2001-05-21 00:00:00 Completed [facility] [place] MMR 2001-05-21 00:00:00 Completed [facility] [place] HIB 4 Dose Schedule 2001-05-21 00:00:00 Completed [facility] [place] DTaP, Unspecified Formulation 2001-05-21 00:00:00 Completed [facility] [place] IPV 2001-05-21 00:00:00 Completed [facility] [place] MMR 2001-05-21 00:00:00 Completed [facility] [place] HIB 4 Dose Schedule 2001-05-21 00:00:00 Completed [facility] [place] DTaP, Unspecified Formulation 2001-05-21 00:00:00 Completed [facility] [place] IPV 2001-05-21 00:00:00 Completed [facility] [place] MMR 2001-05-21 00:00:00 Completed [facility] [place] HIB 4 Dose Schedule 2001-05-21 00:00:00 Completed [facility] [place] DTaP, Unspecified Formulation 2001-05-21 00:00:00 Completed [facility] [place] Varicella (varivax)(chicken pox) 1999-06-10 00:00:00 Completed [facility] [place] Varicella (varivax)(chicken pox) 1999-06-10 00:00:00 Completed [facility] [place] Varicella (varivax)(chicken pox) 1999-06-10 00:00:00 Completed [facility] [place] Varicella (varivax)(chicken pox) 1999-06-10 00:00:00 Completed [facility] [place] Varicella (varivax)(chicken pox) 1999-06-10 00:00:00 Completed [facility] [place] Varicella (varivax)(chicken pox) 1999-06-10 00:00:00 Completed [facility] [place] Varicella (varivax)(chicken pox) 1999-06-10 00:00:00 Completed [facility] [place] MMR 1999-06-09 00:00:00 Completed [facility] [place] MMR 1999-06-09 00:00:00 Completed [facility] [place] MMR 1999-06-09 00:00:00 Completed [facility] [place] MMR 1999-06-09 00:00:00 Completed [facility] [place] MMR 1999-06-09 00:00:00 Completed [facility] [place] MMR 1999-06-09 00:00:00 Completed [facility] [place] MMR 1999-06-09 00:00:00 Completed [facility] [place] Pneumococcal 7 Conjugate, PCV7 (Prevnar7) 1999-06-05 00:00:00 Completed [facility] [place] HIB 4 Dose Schedule 1999-06-05 00:00:00 Completed [facility] [place] Hep B, Adol or Pedi Dosage 1999-06-05 00:00:00 Completed [facility] [place] DTaP, Unspecified Formulation 1999-06-05 00:00:00 Completed [facility] [place] Pneumococcal 7 Conjugate, PCV7 (Prevnar7) 1999-06-05 00:00:00 Completed [facility] [place] HIB 4 Dose Schedule 1999-06-05 00:00:00 Completed [facility] [place] Hep B, Adol or Pedi Dosage 1999-06-05 00:00:00 Completed [facility] [place] DTaP, Unspecified Formulation 1999-06-05 00:00:00 Completed [facility] [place] Pneumococcal 7 Conjugate, PCV7 (Prevnar7) 1999-06-05 00:00:00 Completed [facility] [place] HIB 4 Dose Schedule 1999-06-05 00:00:00 Completed [facility] [place] Hep B, Adol or Pedi Dosage 1999-06-05 00:00:00 Completed [facility] [place] DTaP, Unspecified Formulation 1999-06-05 00:00:00 Completed [facility] [place] Pneumococcal 7 Conjugate, PCV7 (Prevnar7) 1999-06-05 00:00:00 Completed [facility] [place] HIB 4 Dose Schedule 1999-06-05 00:00:00 Completed [facility] [place] Hep B, Adol or Pedi Dosage 1999-06-05 00:00:00 Completed [facility] [place] DTaP, Unspecified Formulation 1999-06-05 00:00:00 Completed [facility] [place] Pneumococcal 7 Conjugate, PCV7 (Prevnar7) 1999-06-05 00:00:00 Completed [facility] [place] HIB 4 Dose Schedule 1999-06-05 00:00:00 Completed [facility] [place] Hep B, Adol or Pedi Dosage 1999-06-05 00:00:00 Completed [facility] [place] DTaP, Unspecified Formulation 1999-06-05 00:00:00 Completed [facility] [place] Pneumococcal 7 Conjugate, PCV7 (Prevnar7) 1999-06-05 00:00:00 Completed [facility] [place] HIB 4 Dose Schedule 1999-06-05 00:00:00 Completed [facility] [place] Hep B, Adol or Pedi Dosage 1999-06-05 00:00:00 Completed [facility] [place] DTaP, Unspecified Formulation 1999-06-05 00:00:00 Completed [facility] [place] Pneumococcal 7 Conjugate, PCV7 (Prevnar7) 1999-06-05 00:00:00 Completed [facility] [place] HIB 4 Dose Schedule 1999-06-05 00:00:00 Completed [facility] [place] Hep B, Adol or Pedi Dosage 1999-06-05 00:00:00 Completed [facility] [place] DTaP, Unspecified Formulation 1999-06-05 00:00:00 Completed [facility] [place] IPV 1997 00:00:00 Completed [facility] [place] IPV 1997 00:00:00 Completed [facility] [place] IPV 1997 00:00:00 Completed [facility] [place] IPV 1997 00:00:00 Completed [facility] [place] IPV 1997 00:00:00 Completed [facility] [place] IPV 1997 00:00:00 Completed [facility] [place] IPV 1997 00:00:00 Completed [facility] [place] Pneumococcal 7 Conjugate, PCV7 (Prevnar7) 1997 00:00:00 Completed [facility] [place] DTaP, Unspecified Formulation 1997 00:00:00 Completed [facility] [place] Pneumococcal 7 Conjugate, PCV7 (Prevnar7) 1997 00:00:00 Completed [facility] [place] DTaP, Unspecified Formulation 1997 00:00:00 Completed [facility] [place] Pneumococcal 7 Conjugate, PCV7 (Prevnar7) 1997 00:00:00 Completed [facility] [place] DTaP, Unspecified Formulation 1997 00:00:00 Completed [facility] [place] Pneumococcal 7 Conjugate, PCV7 (Prevnar7) 1997 00:00:00 Completed [facility] [place] DTaP, Unspecified Formulation 1997 00:00:00 Completed [facility] [place] Pneumococcal 7 Conjugate, PCV7 (Prevnar7) 1997 00:00:00 Completed [facility] [place] DTaP, Unspecified Formulation 1997 00:00:00 Completed [facility] [place] Pneumococcal 7 Conjugate, PCV7 (Prevnar7) 1997 00:00:00 Completed [facility] [place] DTaP, Unspecified Formulation 1997 00:00:00 Completed [facility] [place] Pneumococcal 7 Conjugate, PCV7 (Prevnar7) 1997 00:00:00 Completed [facility] [place] DTaP, Unspecified Formulation 1997 00:00:00 Completed [facility] [place] IPV 1997 00:00:00 Completed [facility] [place] Pneumococcal 7 Conjugate, PCV7 (Prevnar7) 1997 00:00:00 Completed [facility] [place] HIB 4 Dose Schedule 1997 00:00:00 Completed [facility] [place] Hep B, Adol or Pedi Dosage 1997 00:00:00 Completed [facility] [place] DTaP, Unspecified Formulation 1997 00:00:00 Completed [facility] [place] IPV 1997 00:00:00 Completed [facility] [place] Pneumococcal 7 Conjugate, PCV7 (Prevnar7) 1997 00:00:00 Completed [facility] [place] HIB 4 Dose Schedule 1997 00:00:00 Completed [facility] [place] Hep B, Adol or Pedi Dosage 1997 00:00:00 Completed [facility] [place] DTaP, Unspecified Formulation 1997 00:00:00 Completed [facility] [place] IPV 1997 00:00:00 Completed [facility] [place] Pneumococcal 7 Conjugate, PCV7 (Prevnar7) 1997 00:00:00 Completed [facility] [place] HIB 4 Dose Schedule 1997 00:00:00 Completed [facility] [place] Hep B, Adol or Pedi Dosage 1997 00:00:00 Completed [facility] [place] DTaP, Unspecified Formulation 1997 00:00:00 Completed [facility] [place] IPV 1997 00:00:00 Completed [facility] [place] Pneumococcal 7 Conjugate, PCV7 (Prevnar7) 1997 00:00:00 Completed [facility] [place] HIB 4 Dose Schedule 1997 00:00:00 Completed [facility] [place] Hep B, Adol or Pedi Dosage 1997 00:00:00 Completed [facility] [place] DTaP, Unspecified Formulation 1997 00:00:00 Completed [facility] [place] IPV 1997 00:00:00 Completed [facility] [place] Pneumococcal 7 Conjugate, PCV7 (Prevnar7) 1997 00:00:00 Completed [facility] [place] HIB 4 Dose Schedule 1997 00:00:00 Completed [facility] [place] Hep B, Adol or Pedi Dosage 1997 00:00:00 Completed [facility] [place] DTaP, Unspecified Formulation 1997 00:00:00 Completed [facility] [place] IPV 1997 00:00:00 Completed [facility] [place] Pneumococcal 7 Conjugate, PCV7 (Prevnar7) 1997 00:00:00 Completed [facility] [place] HIB 4 Dose Schedule 1997 00:00:00 Completed [facility] [place] Hep B, Adol or Pedi Dosage 1997 00:00:00 Completed [facility] [place] DTaP, Unspecified Formulation 1997 00:00:00 Completed [facility] [place] IPV 1997 00:00:00 Completed [facility] [place] Pneumococcal 7 Conjugate, PCV7 (Prevnar7) 1997 00:00:00 Completed [facility] [place] HIB 4 Dose Schedule 1997 00:00:00 Completed [facility] [place] Hep B, Adol or Pedi Dosage 1997 00:00:00 Completed [facility] [place] DTaP, Unspecified Formulation 1997 00:00:00 Completed [facility] [place] IPV 1997 00:00:00 Completed [facility] [place] IPV 1997 00:00:00 Completed [facility] [place] IPV 1997 00:00:00 Completed [facility] [place] IPV 1997 00:00:00 Completed [facility] [place] IPV 1997 00:00:00 Completed [facility] [place] IPV 1997 00:00:00 Completed [facility] [place] IPV 1997 00:00:00 Completed [facility] [place] Pneumococcal 7 Conjugate, PCV7 (Prevnar7) 1997 00:00:00 Completed [facility] [place] HIB 4 Dose Schedule 1997 00:00:00 Completed [facility] [place] Hep B, Adol or Pedi Dosage 1997 00:00:00 Completed [facility] [place] DTaP, Unspecified Formulation 1997 00:00:00 Completed [facility] [place] Pneumococcal 7 Conjugate, PCV7 (Prevnar7) 1997 00:00:00 Completed [facility] [place] HIB 4 Dose Schedule 1997 00:00:00 Completed [facility] [place] Hep B, Adol or Pedi Dosage 1997 00:00:00 Completed [facility] [place] DTaP, Unspecified Formulation 1997 00:00:00 Completed [facility] [place] Pneumococcal 7 Conjugate, PCV7 (Prevnar7) 1997 00:00:00 Completed [facility] [place] HIB 4 Dose Schedule 1997 00:00:00 Completed [facility] [place] Hep B, Adol or Pedi Dosage 1997 00:00:00 Completed [facility] [place] DTaP, Unspecified Formulation 1997 00:00:00 Completed [facility] [place] Pneumococcal 7 Conjugate, PCV7 (Prevnar7) 1997 00:00:00 Completed [facility] [place] HIB 4 Dose Schedule 1997 00:00:00 Completed [facility] [place] Hep B, Adol or Pedi Dosage 1997 00:00:00 Completed [facility] [place] DTaP, Unspecified Formulation 1997 00:00:00 Completed [facility] [place] Pneumococcal 7 Conjugate, PCV7 (Prevnar7) 1997 00:00:00 Completed [facility] [place] HIB 4 Dose Schedule 1997 00:00:00 Completed [facility] [place] Hep B, Adol or Pedi Dosage 1997 00:00:00 Completed [facility] [place] DTaP, Unspecified Formulation 1997 00:00:00 Completed [facility] [place] Pneumococcal 7 Conjugate, PCV7 (Prevnar7) 1997 00:00:00 Completed [facility] [place] HIB 4 Dose Schedule 1997 00:00:00 Completed [facility] [place] Hep B, Adol or Pedi Dosage 1997 00:00:00 Completed [facility] [place] DTaP, Unspecified Formulation 1997 00:00:00 Completed [facility] [place] Pneumococcal 7 Conjugate, PCV7 (Prevnar7) 1997 00:00:00 Completed [facility] [place] HIB 4 Dose Schedule 1997 00:00:00 Completed [facility] [place] Hep B, Adol or Pedi Dosage 1997 00:00:00 Completed [facility] [place] DTaP, Unspecified Formulation 1997 00:00:00 Completed [facility] [place] TDAP Unknown Completed [facility] [place] Varicella (varivax)(chicken pox) Unknown Completed [facility] [place] TDAP Unknown Completed [facility] [place] Varicella (varivax)(chicken pox) Unknown Completed [facility] [place] Influenza Virus Vaccine Quad .5 mL IM 6+ MO (FLUZONE/FLULAVAL/FL UARIX) Unknown Completed [facility] [place] TDAP (ADACEL) VACCINE Unknown Completed [facility] [place] HPV Unknown Completed [facility] [place] HPV Unknown Completed [facility] [place] Influenza Virus Vaccine Quad IM, Preserv and ABX Free 6 MO-64 YRS (FLUCELVAX) Unknown Completed [facility] [place] Influenza Virus Vaccine Quad IM, Preserv and ABX Free 6 MO-64 YRS (FLUCELVAX) Unknown Completed [facility] [place] TDAP Unknown Completed [facility] [place] Varicella (varivax)(chicken pox) Unknown Completed [facility] [place] Varicella (varivax)(chicken pox) Unknown Completed [facility] [place] TDAP Unknown Completed [facility] [place] IPV Unknown Completed [facility] [place] IPV Unknown Completed [facility] [place] IPV Unknown Completed [facility] [place] IPV Unknown Completed [facility] [place] Pneumococcal 7 Conjugate, PCV7 (Prevnar7) Unknown Completed [facility] [place] Pneumococcal 7 Conjugate, PCV7 (Prevnar7) Unknown Completed [facility] [place] Pneumococcal 7 Conjugate, PCV7 (Prevnar7) Unknown Completed [facility] [place] Pneumococcal 7 Conjugate, PCV7 (Prevnar7) Unknown Completed [facility] [place] MMR Unknown Completed [facility] [place] MMR Unknown Completed [facility] [place] Meningococcal Polysaccharide (groups A, C, Y and W-135) conjugate vaccine (MCV4P) Unknown Completed [facility] HIB 4 Dose Schedule Unknown Completed [facility] [place] HIB 4 Dose Schedule Unknown Completed [facility] [place] HIB 4 Dose Schedule Unknown Completed [facility] [place] HIB 4 Dose Schedule Unknown Completed [facility] [place] Hep B, Adol or Pedi Dosage Unknown Completed [facility] [place] Hep B, Adol or Pedi Dosage Unknown Completed [facility] [place] Hep B, Adol or Pedi Dosage Unknown Completed [facility] [place] DTaP, Unspecified Formulation Unknown Completed [facility] [place] DTaP, Unspecified Formulation Unknown Completed [facility] [place] DTaP, Unspecified Formulation Unknown Completed [facility] [place] DTaP, Unspecified Formulation Unknown Completed [facility] [place] DTaP, Unspecified Formulation Unknown Completed [facility] [place] DTaP, Unspecified Formulation Unknown Completed [facility] [place] TDAP Unknown Completed [facility] [place] Varicella (varivax)(chicken pox) Unknown Completed [facility] [place] TDAP Unknown Completed [facility] [place] Varicella (varivax)(chicken pox) Unknown Completed [facility] [place] Influenza Virus Vaccine Quad .5 mL IM 6+ MO (FLUZONE/FLULAVAL/FL UARIX) Unknown Completed [facility] [place] TDAP (ADACEL) VACCINE Unknown Completed [facility] [place] HPV Unknown Completed [facility] [place] HPV Unknown Completed [facility] [place] Influenza Virus Vaccine Quad IM, Preserv and ABX Free 6 MO-64 YRS (FLUCELVAX) Unknown Completed [facility] [place] Varicella (varivax)(chicken pox) Unknown Completed [facility] [place] Varicella (varivax)(chicken pox) Unknown Completed [facility] [place] TDAP Unknown Completed [facility] [place] IPV Unknown Completed [facility] [place] IPV Unknown Completed [facility] [place] IPV Unknown Completed [facility] [place] IPV Unknown Completed [facility] [place] Pneumococcal 7 Conjugate, PCV7 (Prevnar7) Unknown Completed [facility] [place] Pneumococcal 7 Conjugate, PCV7 (Prevnar7) Unknown Completed [facility] [place] Pneumococcal 7 Conjugate, PCV7 (Prevnar7) Unknown Completed [facility] [place] Pneumococcal 7 Conjugate, PCV7 (Prevnar7) Unknown Completed [facility] [place] MMR Unknown Completed [facility] [place] MMR Unknown Completed [facility] [place] Meningococcal Polysaccharide (groups A, C, Y and W-135) conjugate vaccine (MCV4P) Unknown Completed [facility] HIB 4 Dose Schedule Unknown Completed [facility] [place] HIB 4 Dose Schedule Unknown Completed [facility] [place] HIB 4 Dose Schedule Unknown Completed [facility] [place] HIB 4 Dose Schedule Unknown Completed [facility] [place] Hep B, Adol or Pedi Dosage Unknown Completed [facility] [place] Hep B, Adol or Pedi Dosage Unknown Completed [facility] [place] Hep B, Adol or Pedi Dosage Unknown Completed [facility] [place] DTaP, Unspecified Formulation Unknown Completed [facility] [place] DTaP, Unspecified Formulation Unknown Completed [facility] [place] DTaP, Unspecified Formulation Unknown Completed [facility] [place] DTaP, Unspecified Formulation Unknown Completed [facility] [place] DTaP, Unspecified Formulation Unknown Completed [facility] [place] DTaP, Unspecified Formulation Unknown Completed [facility] [place] TDAP Unknown Completed [facility] [place] Varicella (varivax)(chicken pox) Unknown Completed [facility] [place] TDAP Unknown Completed [facility] [place] Varicella (varivax)(chicken pox) Unknown Completed [facility] [place] Influenza Virus Vaccine Quad .5 mL IM 6+ MO (FLUZONE/FLULAVAL/FL UARIX) Unknown Completed [facility] [place] TDAP (ADACEL) VACCINE Unknown Completed [facility] [place] HPV Unknown Completed [facility] [place] HPV Unknown Completed [facility] [place] Influenza Virus Vaccine Quad IM, Preserv and ABX Free 6 MO-64 YRS (FLUCELVAX) Unknown Completed [facility] [place] Varicella (varivax)(chicken pox) Unknown Completed [facility] [place] Varicella (varivax)(chicken pox) Unknown Completed [facility] [place] TDAP Unknown Completed [facility] [place] IPV Unknown Completed [facility] [place] IPV Unknown Completed [facility] [place] IPV Unknown Completed [facility] [place] IPV Unknown Completed [facility] [place] Pneumococcal 7 Conjugate, PCV7 (Prevnar7) Unknown Completed [facility] [place] Pneumococcal 7 Conjugate, PCV7 (Prevnar7) Unknown Completed [facility] [place] Pneumococcal 7 Conjugate, PCV7 (Prevnar7) Unknown Completed [facility] [place] Pneumococcal 7 Conjugate, PCV7 (Prevnar7) Unknown Completed [facility] [place] MMR Unknown Completed [facility] [place] MMR Unknown Completed [facility] [place] Meningococcal Polysaccharide (groups A, C, Y and W-135) conjugate vaccine (MCV4P) Unknown Completed [facility] HIB 4 Dose Schedule Unknown Completed [facility] [place] HIB 4 Dose Schedule Unknown Completed [facility] [place] HIB 4 Dose Schedule Unknown Completed [facility] [place] HIB 4 Dose Schedule Unknown Completed [facility] [place] Hep B, Adol or Pedi Dosage Unknown Completed [facility] Hep B, Adol or Pedi Dosage Unknown Completed [facility] Hep B, Adol or Pedi Dosage Unknown Completed [facility] DTaP, Unspecified Formulation Unknown Completed [facility] DTaP, Unspecified Formulation Unknown Completed [facility] DTaP, Unspecified Formulation Unknown Completed [facility] DTaP, Unspecified Formulation Unknown Completed [facility] DTaP, Unspecified Formulation Unknown Completed [facility] DTaP, Unspecified Formulation Unknown Completed [facility] TDAP Unknown Completed [facility] Varicella (varivax)(chicken pox) Unknown Completed [facility] TDAP Unknown Completed [facility] Varicella (varivax)(chicken pox) Unknown Completed [facility] Influenza Virus Vaccine Quad .5 mL IM 6+ MO (FLUZONE/FLULAVAL/FL UARIX) Unknown Completed [facility] TDAP (ADACEL) VACCINE Unknown Completed [facility] HPV Unknown Completed [facility] HPV Unknown Completed [facility] Varicella (varivax)(chicken pox) Unknown Completed [facility] Varicella (varivax)(chicken pox) Unknown Completed [facility] TDAP Unknown Completed [facility] IPV Unknown Completed [facility] IPV Unknown Completed [facility] IPV Unknown Completed [facility] IPV Unknown Completed [facility] Pneumococcal 7 Conjugate, PCV7 (Prevnar7) Unknown Completed [facility] Pneumococcal 7 Conjugate, PCV7 (Prevnar7) Unknown Completed [facility] Pneumococcal 7 Conjugate, PCV7 (Prevnar7) Unknown Completed [facility] Pneumococcal 7 Conjugate, PCV7 (Prevnar7) Unknown Completed [facility] MMR Unknown Completed [facility] MMR Unknown Completed [facility] Meningococcal Polysaccharide (groups A, C, Y and W-135) conjugate vaccine (MCV4P) Unknown Completed [facility] HIB 4 Dose Schedule Unknown Completed [facility] HIB 4 Dose Schedule Unknown Completed [facility] HIB 4 Dose Schedule Unknown Completed [facility] HIB 4 Dose Schedule Unknown Completed [facility] Hep B, Adol or Pedi Dosage Unknown Completed [facility] Hep B, Adol or Pedi Dosage Unknown Completed [facility] Hep B, Adol or Pedi Dosage Unknown Completed [facility] DTaP, Unspecified Formulation Unknown Completed [facility] DTaP, Unspecified Formulation Unknown Completed [facility] DTaP, Unspecified Formulation Unknown Completed [facility] DTaP, Unspecified Formulation Unknown Completed [facility] DTaP, Unspecified Formulation Unknown Completed [facility] DTaP, Unspecified Formulation Unknown Completed [facility] TDAP Unknown Completed [facility] Varicella (varivax)(chicken pox) Unknown Completed [facility] TDAP Unknown Completed [facility] Varicella (varivax)(chicken pox) Unknown Completed [facility] Influenza Virus Vaccine Quad .5 mL IM 6+ MO (FLUZONE/FLULAVAL/FL UARIX) Unknown Completed [facility] TDAP (ADACEL) VACCINE Unknown Completed [facility] HPV Unknown Completed [facility] HPV Unknown Completed [facility] Varicella (varivax)(chicken pox) Unknown Completed [facility] Varicella (varivax)(chicken pox) Unknown Completed [facility] TDAP Unknown Completed [facility] IPV Unknown Completed [facility] IPV Unknown Completed [facility] IPV Unknown Completed [facility] IPV Unknown Completed [facility] Pneumococcal 7 Conjugate, PCV7 (Prevnar7) Unknown Completed [facility] Pneumococcal 7 Conjugate, PCV7 (Prevnar7) Unknown Completed [facility] Pneumococcal 7 Conjugate, PCV7 (Prevnar7) Unknown Completed [facility] Pneumococcal 7 Conjugate, PCV7 (Prevnar7) Unknown Completed [facility] MMR Unknown Completed [facility] MMR Unknown Completed [facility] Meningococcal Polysaccharide (groups A, C, Y and W-135) conjugate vaccine (MCV4P) Unknown Completed [facility] HIB 4 Dose Schedule Unknown Completed [facility] HIB 4 Dose Schedule Unknown Completed [facility] HIB 4 Dose Schedule Unknown Completed [facility] HIB 4 Dose Schedule Unknown Completed [facility] Hep B, Adol or Pedi Dosage Unknown Completed [facility] Hep B, Adol or Pedi Dosage Unknown Completed [facility] Hep B, Adol or Pedi Dosage Unknown Completed [facility] DTaP, Unspecified Formulation Unknown Completed [facility] DTaP, Unspecified Formulation Unknown Completed [facility] DTaP, Unspecified Formulation Unknown Completed [facility] DTaP, Unspecified Formulation Unknown Completed [facility] DTaP, Unspecified Formulation Unknown Completed [facility] DTaP, Unspecified Formulation Unknown Completed [facility] TDAP Unknown Completed [facility] Varicella (varivax)(chicken pox) Unknown Completed [facility] TDAP Unknown Completed [facility] Varicella (varivax)(chicken pox) Unknown Completed [facility] Influenza Virus Vaccine Quad .5 mL IM 6+ MO (FLUZONE/FLULAVAL/FL UARIX) Unknown Completed [facility] TDAP (ADACEL) VACCINE Unknown Completed [facility] HPV Unknown Completed [facility] HPV Unknown Completed [facility] Varicella (varivax)(chicken pox) Unknown Completed [facility] Varicella (varivax)(chicken pox) Unknown Completed [facility] TDAP Unknown Completed [facility] IPV Unknown Completed [facility] IPV Unknown Completed [facility] IPV Unknown Completed [facility] IPV Unknown Completed [facility] Pneumococcal 7 Conjugate, PCV7 (Prevnar7) Unknown Completed [facility] Pneumococcal 7 Conjugate, PCV7 (Prevnar7) Unknown Completed [facility] Pneumococcal 7 Conjugate, PCV7 (Prevnar7) Unknown Completed [facility] Pneumococcal 7 Conjugate, PCV7 (Prevnar7) Unknown Completed [facility] MMR Unknown Completed [facility] MMR Unknown Completed [facility] Meningococcal Polysaccharide (groups A, C, Y and W-135) conjugate vaccine (MCV4P) Unknown Completed [facility] HIB 4 Dose Schedule Unknown Completed [facility] HIB 4 Dose Schedule Unknown Completed [facility] HIB 4 Dose Schedule Unknown Completed [facility] HIB 4 Dose Schedule Unknown Completed [facility] Hep B, Adol or Pedi Dosage Unknown Completed [facility] Hep B, Adol or Pedi Dosage Unknown Completed [facility] Hep B, Adol or Pedi Dosage Unknown Completed [facility] DTaP, Unspecified Formulation Unknown Completed [facility] DTaP, Unspecified Formulation Unknown Completed [facility] DTaP, Unspecified Formulation Unknown Completed [facility] DTaP, Unspecified Formulation Unknown Completed [facility] DTaP, Unspecified Formulation Unknown Completed [facility] DTaP, Unspecified Formulation Unknown Completed [facility] TDAP Unknown Completed [facility] Varicella (varivax)(chicken pox) Unknown Completed [facility] TDAP Unknown Completed [facility] Varicella (varivax)(chicken pox) Unknown Completed [facility] Influenza Virus Vaccine Quad .5 mL IM 6+ MO (FLUZONE/FLULAVAL/FL UARIX) Unknown Completed [facility] TDAP (ADACEL) VACCINE Unknown Completed [facility] HPV Unknown Completed [facility] HPV Unknown Completed [facility] Varicella (varivax)(chicken pox) Unknown Completed [facility] Varicella (varivax)(chicken pox) Unknown Completed [facility] TDAP Unknown Completed [facility] IPV Unknown Completed [facility] IPV Unknown Completed [facility] IPV Unknown Completed [facility] IPV Unknown Completed [facility] Pneumococcal 7 Conjugate, PCV7 (Prevnar7) Unknown Completed [facility] Pneumococcal 7 Conjugate, PCV7 (Prevnar7) Unknown Completed [facility] Pneumococcal 7 Conjugate, PCV7 (Prevnar7) Unknown Completed [facility] Pneumococcal 7 Conjugate, PCV7 (Prevnar7) Unknown Completed [facility] MMR Unknown Completed [facility] MMR Unknown Completed [facility] Meningococcal Polysaccharide (groups A, C, Y and W-135) conjugate vaccine (MCV4P) Unknown Completed [facility] HIB 4 Dose Schedule Unknown Completed [facility] HIB 4 Dose Schedule Unknown Completed [facility] HIB 4 Dose Schedule Unknown Completed [facility] HIB 4 Dose Schedule Unknown Completed [facility] Hep B, Adol or Pedi Dosage Unknown Completed [facility] Hep B, Adol or Pedi Dosage Unknown Completed [facility] Hep B, Adol or Pedi Dosage Unknown Completed [facility] DTaP, Unspecified Formulation Unknown Completed [facility] DTaP, Unspecified Formulation Unknown Completed [facility] DTaP, Unspecified Formulation Unknown Completed [facility] DTaP, Unspecified Formulation Unknown Completed [facility] DTaP, Unspecified Formulation Unknown Completed [facility] DTaP, Unspecified Formulation Unknown Completed [facility] TDAP Unknown Completed [facility] Varicella (varivax)(chicken pox) Unknown Completed [facility] TDAP Unknown Completed [facility] Varicella (varivax)(chicken pox) Unknown Completed [facility] Influenza Virus Vaccine Quad .5 mL IM 6+ MO (FLUZONE/FLULAVAL/FL UARIX) Unknown Completed [facility] TDAP (ADACEL) VACCINE Unknown Completed [facility] HPV Unknown Completed [facility] HPV Unknown Completed [facility] Varicella (varivax)(chicken pox) Unknown Completed [facility] Varicella (varivax)(chicken pox) Unknown Completed [facility] TDAP Unknown Completed [facility] IPV Unknown Completed [facility] IPV Unknown Completed [facility] IPV Unknown Completed [facility] IPV Unknown Completed [facility] Pneumococcal 7 Conjugate, PCV7 (Prevnar7) Unknown Completed [facility] Pneumococcal 7 Conjugate, PCV7 (Prevnar7) Unknown Completed [facility] Pneumococcal 7 Conjugate, PCV7 (Prevnar7) Unknown Completed [facility] Pneumococcal 7 Conjugate, PCV7 (Prevnar7) Unknown Completed [facility] MMR Unknown Completed [facility] MMR Unknown Completed [facility] Meningococcal Polysaccharide (groups A, C, Y and W-135) conjugate vaccine (MCV4P) Unknown Completed [facility] HIB 4 Dose Schedule Unknown Completed [facility] HIB 4 Dose Schedule Unknown Completed [facility] HIB 4 Dose Schedule Unknown Completed [facility] HIB 4 Dose Schedule Unknown Completed [facility] Hep B, Adol or Pedi Dosage Unknown Completed [facility] Hep B, Adol or Pedi Dosage Unknown Completed [facility] Hep B, Adol or Pedi Dosage Unknown Completed [facility] DTaP, Unspecified Formulation Unknown Completed [facility] DTaP, Unspecified Formulation Unknown Completed [facility] DTaP, Unspecified Formulation Unknown Completed [facility] DTaP, Unspecified Formulation Unknown Completed [facility] DTaP, Unspecified Formulation Unknown Completed [facility] DTaP, Unspecified Formulation Unknown Completed [facility] TDAP Unknown Completed [facility] Varicella (varivax)(chicken pox) Unknown Completed [facility] TDAP Unknown Completed [facility] Varicella (varivax)(chicken pox) Unknown Completed [facility] Influenza Virus Vaccine Quad .5 mL IM 6+ MO (FLUZONE/FLULAVAL/FL UARIX) Unknown Completed [facility] TDAP (ADACEL) VACCINE Unknown Completed [facility] HPV Unknown Completed [facility] HPV Unknown Completed [facility] Varicella (varivax)(chicken pox) Unknown Completed [facility] Varicella (varivax)(chicken pox) Unknown Completed [facility] TDAP Unknown Completed [facility] IPV Unknown Completed [facility] IPV Unknown Completed [facility] IPV Unknown Completed [facility] IPV Unknown Completed [facility] Pneumococcal 7 Conjugate, PCV7 (Prevnar7) Unknown Completed [facility] Pneumococcal 7 Conjugate, PCV7 (Prevnar7) Unknown Completed [facility] Pneumococcal 7 Conjugate, PCV7 (Prevnar7) Unknown Completed [facility] Pneumococcal 7 Conjugate, PCV7 (Prevnar7) Unknown Completed [facility] MMR Unknown Completed [facility] MMR Unknown Completed [facility] Meningococcal Polysaccharide (groups A, C, Y and W-135) conjugate vaccine (MCV4P) Unknown Completed [facility] HIB 4 Dose Schedule Unknown Completed [facility] HIB 4 Dose Schedule Unknown Completed [facility] HIB 4 Dose Schedule Unknown Completed [facility] HIB 4 Dose Schedule Unknown Completed [facility] Hep B, Adol or Pedi Dosage Unknown Completed [facility] Hep B, Adol or Pedi Dosage Unknown Completed [facility] Hep B, Adol or Pedi Dosage Unknown Completed [facility] DTaP, Unspecified Formulation Unknown Completed [facility] DTaP, Unspecified Formulation Unknown Completed [facility] DTaP, Unspecified Formulation Unknown Completed [facility] DTaP, Unspecified Formulation Unknown Completed [facility] DTaP, Unspecified Formulation Unknown Completed [facility] DTaP, Unspecified Formulation Unknown Completed [facility] TDAP Unknown Completed [facility] Varicella (varivax)(chicken pox) Unknown Completed [facility] TDAP Unknown Completed [facility] Varicella (varivax)(chicken pox) Unknown Completed [facility] Influenza Virus Vaccine Quad .5 mL IM 6+ MO (FLUZONE/FLULAVAL/FL UARIX) Unknown Completed [facility] TDAP (ADACEL) VACCINE Unknown Completed [facility] HPV Unknown Completed [facility] HPV Unknown Completed [facility] Varicella (varivax)(chicken pox) Unknown Completed [facility] Varicella (varivax)(chicken pox) Unknown Completed [facility] TDAP Unknown Completed [facility] IPV Unknown Completed [facility] IPV Unknown Completed [facility] IPV Unknown Completed [facility] IPV Unknown Completed [facility] Pneumococcal 7 Conjugate, PCV7 (Prevnar7) Unknown Completed [facility] Pneumococcal 7 Conjugate, PCV7 (Prevnar7) Unknown Completed [facility] Pneumococcal 7 Conjugate, PCV7 (Prevnar7) Unknown Completed [facility] Pneumococcal 7 Conjugate, PCV7 (Prevnar7) Unknown Completed [facility] MMR Unknown Completed [facility] MMR Unknown Completed [facility] Meningococcal Polysaccharide (groups A, C, Y and W-135) conjugate vaccine (MCV4P) Unknown Completed [facility] HIB 4 Dose Schedule Unknown Completed [facility] HIB 4 Dose Schedule Unknown Completed [facility] HIB 4 Dose Schedule Unknown Completed [facility] HIB 4 Dose Schedule Unknown Completed [facility] Hep B, Adol or Pedi Dosage Unknown Completed [facility] Hep B, Adol or Pedi Dosage Unknown Completed [facility] Hep B, Adol or Pedi Dosage Unknown Completed [facility] DTaP, Unspecified Formulation Unknown Completed [facility] DTaP, Unspecified Formulation Unknown Completed [facility] DTaP, Unspecified Formulation Unknown Completed [facility] DTaP, Unspecified Formulation Unknown Completed [facility] DTaP, Unspecified Formulation Unknown Completed [facility] DTaP, Unspecified Formulation Unknown Completed [facility] TDAP Unknown Completed [facility] Varicella (varivax)(chicken pox) Unknown Completed [facility] TDAP Unknown Completed [facility] Varicella (varivax)(chicken pox) Unknown Completed [facility] Influenza Virus Vaccine Quad .5 mL IM 6+ MO (FLUZONE/FLULAVAL/FL UARIX) Unknown Completed [facility] TDAP (ADACEL) VACCINE Unknown Completed [facility] HPV Unknown Completed [facility] HPV Unknown Completed [facility] Varicella (varivax)(chicken pox) Unknown Completed [facility] Varicella (varivax)(chicken pox) Unknown Completed [facility] TDAP Unknown Completed [facility] IPV Unknown Completed [facility] IPV Unknown Completed [facility] IPV Unknown Completed [facility] IPV Unknown Completed [facility] Pneumococcal 7 Conjugate, PCV7 (Prevnar7) Unknown Completed [facility] Pneumococcal 7 Conjugate, PCV7 (Prevnar7) Unknown Completed [facility] Pneumococcal 7 Conjugate, PCV7 (Prevnar7) Unknown Completed [facility] Pneumococcal 7 Conjugate, PCV7 (Prevnar7) Unknown Completed [facility] MMR Unknown Completed [facility] MMR Unknown Completed [facility] Meningococcal Polysaccharide (groups A, C, Y and W-135) conjugate vaccine (MCV4P) Unknown Completed [facility] HIB 4 Dose Schedule Unknown Completed [facility] HIB 4 Dose Schedule Unknown Completed [facility] HIB 4 Dose Schedule Unknown Completed [facility] HIB 4 Dose Schedule Unknown Completed [facility] Hep B, Adol or Pedi Dosage Unknown Completed [facility] Hep B, Adol or Pedi Dosage Unknown Completed [facility] Hep B, Adol or Pedi Dosage Unknown Completed [facility] DTaP, Unspecified Formulation Unknown Completed [facility] DTaP, Unspecified Formulation Unknown Completed [facility] DTaP, Unspecified Formulation Unknown Completed [facility] DTaP, Unspecified Formulation Unknown Completed [facility] DTaP, Unspecified Formulation Unknown Completed [facility] DTaP, Unspecified Formulation Unknown Completed [facility] TDAP Unknown Completed [facility] Varicella (varivax)(chicken pox) Unknown Completed [facility] TDAP Unknown Completed [facility] [place] Varicella (varivax)(chicken pox) Unknown Completed [facility] [place] Influenza Virus Vaccine Quad .5 mL IM 6+ MO (FLUZONE/FLULAVAL/FL UARIX) Unknown Completed [facility] [place] TDAP (ADACEL) VACCINE Unknown Completed [facility] [place] HPV Unknown Completed [facility] [place] HPV Unknown Completed [facility] [place] Varicella (varivax)(chicken pox) Unknown Completed [facility] [place] Varicella (varivax)(chicken pox) Unknown Completed [facility] [place] TDAP Unknown Completed [facility] [place] IPV Unknown Completed [facility] [place] IPV Unknown Completed [facility] [place] IPV Unknown Completed [facility] [place] IPV Unknown Completed [facility] [place] Pneumococcal 7 Conjugate, PCV7 (Prevnar7) Unknown Completed [facility] [place] Pneumococcal 7 Conjugate, PCV7 (Prevnar7) Unknown Completed [facility] [place] Pneumococcal 7 Conjugate, PCV7 (Prevnar7) Unknown Completed [facility] [place] Pneumococcal 7 Conjugate, PCV7 (Prevnar7) Unknown Completed [facility] [place] MMR Unknown Completed [facility] [place] MMR Unknown Completed [facility] [place] Meningococcal Polysaccharide (groups A, C, Y and W-135) conjugate vaccine (MCV4P) Unknown Completed [facility] HIB 4 Dose Schedule Unknown Completed [facility] [place] HIB 4 Dose Schedule Unknown Completed [facility] [place] HIB 4 Dose Schedule Unknown Completed [facility] [place] HIB 4 Dose Schedule Unknown Completed [facility] [place] Hep B, Adol or Pedi Dosage Unknown Completed [facility] [place] Hep B, Adol or Pedi Dosage Unknown Completed [facility] [place] Hep B, Adol or Pedi Dosage Unknown Completed [facility] [place] DTaP, Unspecified Formulation Unknown Completed [facility] [place] DTaP, Unspecified Formulation Unknown Completed [facility] [place] DTaP, Unspecified Formulation Unknown Completed [facility] [place] DTaP, Unspecified Formulation Unknown Completed [facility] [place] DTaP, Unspecified Formulation Unknown Completed [facility] [place] DTaP, Unspecified Formulation Unknown Completed [facility] [place] TDAP Unknown Completed [facility] [place] Varicella (varivax)(chicken pox) Unknown Completed [facility] [place] TDAP Unknown Completed [facility] [place] Varicella (varivax)(chicken pox) Unknown Completed [facility] [place] Influenza Virus Vaccine Quad .5 mL IM 6+ MO (FLUZONE/FLULAVAL/FL UARIX) Unknown Completed [facility] [place] TDAP (ADACEL) VACCINE Unknown Completed [facility] [place] HPV Unknown Completed [facility] [place] HPV Unknown Completed [facility] [place] Influenza Virus Vaccine Quad IM, Preserv and ABX Free 6 MO-64 YRS (FLUCELVAX) Unknown Completed [facility] [place] Influenza Virus Vaccine Quad IM, Preserv and ABX Free 6 MO-64 YRS (FLUCELVAX) Unknown Completed [facility] [place] TDAP Unknown Completed [facility] [place] Varicella (varivax)(chicken pox) Unknown Completed [facility] [place] Varicella (varivax)(chicken pox) Unknown Completed [facility] [place] TDAP Unknown Completed [facility] [place] IPV Unknown Completed [facility] [place] IPV Unknown Completed [facility] [place] IPV Unknown Completed [facility] [place] IPV Unknown Completed [facility] [place] Pneumococcal 7 Conjugate, PCV7 (Prevnar7) Unknown Completed [facility] [place] Pneumococcal 7 Conjugate, PCV7 (Prevnar7) Unknown Completed [facility] [place] Pneumococcal 7 Conjugate, PCV7 (Prevnar7) Unknown Completed [facility] [place] Pneumococcal 7 Conjugate, PCV7 (Prevnar7) Unknown Completed [facility] [place] MMR Unknown Completed [facility] [place] MMR Unknown Completed [facility] [place] Meningococcal Polysaccharide (groups A, C, Y and W-135) conjugate vaccine (MCV4P) Unknown Completed [facility] HIB 4 Dose Schedule Unknown Completed [facility] [place] HIB 4 Dose Schedule Unknown Completed [facility] [place] HIB 4 Dose Schedule Unknown Completed [facility] [place] HIB 4 Dose Schedule Unknown Completed [facility] [place] Hep B, Adol or Pedi Dosage Unknown Completed [facility] [place] Hep B, Adol or Pedi Dosage Unknown Completed [facility] [place] Hep B, Adol or Pedi Dosage Unknown Completed [facility] [place] DTaP, Unspecified Formulation Unknown Completed [facility] [place] DTaP, Unspecified Formulation Unknown Completed [facility] [place] DTaP, Unspecified Formulation Unknown Completed [facility] [place] DTaP, Unspecified Formulation Unknown Completed [facility] [place] DTaP, Unspecified Formulation Unknown Completed [facility] [place] DTaP, Unspecified Formulation Unknown Completed [facility] [place] TDAP Unknown Completed [facility] [place] Varicella (varivax)(chicken pox) Unknown Completed [facility] [place] TDAP Unknown Completed [facility] [place] Varicella (varivax)(chicken pox) Unknown Completed [facility] [place] Influenza Virus Vaccine Quad .5 mL IM 6+ MO (FLUZONE/FLULAVAL/FL UARIX) Unknown Completed [facility] [place] TDAP (ADACEL) VACCINE Unknown Completed [facility] [place] HPV Unknown Completed [facility] [place] HPV Unknown Completed [facility] [place] Influenza Virus Vaccine Quad IM, Preserv and ABX Free 6 MO-64 YRS (FLUCELVAX) Unknown Completed [facility] [place] Influenza Virus Vaccine Quad IM, Preserv and ABX Free 6 MO-64 YRS (FLUCELVAX) Unknown Completed [facility] [place] TDAP Unknown Completed [facility] [place] Varicella (varivax)(chicken pox) Unknown Completed [facility] [place] Varicella (varivax)(chicken pox) Unknown Completed [facility] [place] TDAP Unknown Completed [facility] [place] IPV Unknown Completed [facility] [place] IPV Unknown Completed [facility] [place] IPV Unknown Completed [facility] [place] IPV Unknown Completed [facility] [place] Pneumococcal 7 Conjugate, PCV7 (Prevnar7) Unknown Completed [facility] [place] Pneumococcal 7 Conjugate, PCV7 (Prevnar7) Unknown Completed [facility] [place] Pneumococcal 7 Conjugate, PCV7 (Prevnar7) Unknown Completed [facility] [place] Pneumococcal 7 Conjugate, PCV7 (Prevnar7) Unknown Completed [facility] [place] MMR Unknown Completed [facility] [place] MMR Unknown Completed [facility] [place] Meningococcal Polysaccharide (groups A, C, Y and W-135) conjugate vaccine (MCV4P) Unknown Completed [facility] HIB 4 Dose Schedule Unknown Completed [facility] [place] HIB 4 Dose Schedule Unknown Completed [facility] [place] HIB 4 Dose Schedule Unknown Completed [facility] [place] HIB 4 Dose Schedule Unknown Completed [facility] [place] Hep B, Adol or Pedi Dosage Unknown Completed [facility] [place] Hep B, Adol or Pedi Dosage Unknown Completed [facility] [place] Hep B, Adol or Pedi Dosage Unknown Completed [facility] [place] DTaP, Unspecified Formulation Unknown Completed [facility] [place] DTaP, Unspecified Formulation Unknown Completed [facility] [place] DTaP, Unspecified Formulation Unknown Completed [facility] [place] DTaP, Unspecified Formulation Unknown Completed [facility] [place] DTaP, Unspecified Formulation Unknown Completed [facility] [place] DTaP, Unspecified Formulation Unknown Completed [facility] [place] TDAP Unknown Completed [facility] [place] Varicella (varivax)(chicken pox) Unknown Completed [facility] [place] TDAP Unknown Completed [facility] [place] Varicella (varivax)(chicken pox) Unknown Completed [facility] [place] Influenza Virus Vaccine Quad .5 mL IM 6+ MO (FLUZONE/FLULAVAL/FL UARIX) Unknown Completed [facility] [place] TDAP (ADACEL) VACCINE Unknown Completed [facility] [place] HPV Unknown Completed [facility] [place] HPV Unknown Completed [facility] [place] Influenza Virus Vaccine Quad IM, Preserv and ABX Free 6 MO-64 YRS (FLUCELVAX) Unknown Completed [facility] [place] Influenza Virus Vaccine Quad IM, Preserv and ABX Free 6 MO-64 YRS (FLUCELVAX) Unknown Completed [facility] [place] TDAP Unknown Completed [facility] [place] Varicella (varivax)(chicken pox) Unknown Completed [facility] [place] Varicella (varivax)(chicken pox) Unknown Completed [facility] [place] TDAP Unknown Completed [facility] [place] IPV Unknown Completed [facility] [place] IPV Unknown Completed [facility] [place] IPV Unknown Completed [facility] [place] IPV Unknown Completed [facility] [place] Pneumococcal 7 Conjugate, PCV7 (Prevnar7) Unknown Completed [facility] [place] Pneumococcal 7 Conjugate, PCV7 (Prevnar7) Unknown Completed [facility] [place] Pneumococcal 7 Conjugate, PCV7 (Prevnar7) Unknown Completed [facility] [place] Pneumococcal 7 Conjugate, PCV7 (Prevnar7) Unknown Completed [facility] [place] MMR Unknown Completed [facility] [place] MMR Unknown Completed [facility] [place] Meningococcal Polysaccharide (groups A, C, Y and W-135) conjugate vaccine (MCV4P) Unknown Completed [facility] HIB 4 Dose Schedule Unknown Completed [facility] [place] HIB 4 Dose Schedule Unknown Completed [facility] [place] HIB 4 Dose Schedule Unknown Completed [facility] [place] HIB 4 Dose Schedule Unknown Completed [facility] [place] Hep B, Adol or Pedi Dosage Unknown Completed [facility] [place] Hep B, Adol or Pedi Dosage Unknown Completed [facility] [place] Hep B, Adol or Pedi Dosage Unknown Completed [facility] [place] DTaP, Unspecified Formulation Unknown Completed [facility] [place] DTaP, Unspecified Formulation Unknown Completed [facility] [place] DTaP, Unspecified Formulation Unknown Completed [facility] [place] DTaP, Unspecified Formulation Unknown Completed [facility] [place] DTaP, Unspecified Formulation Unknown Completed [facility] [place] DTaP, Unspecified Formulation Unknown Completed [facility] [place] TDAP Unknown Completed [facility] [place] Varicella (varivax)(chicken pox) Unknown Completed [facility] [place] TDAP Unknown Completed [facility] [place] Varicella (varivax)(chicken pox) Unknown Completed [facility] [place] Influenza Virus Vaccine Quad .5 mL IM 6+ MO (FLUZONE/FLULAVAL/FL UARIX) Unknown Completed [facility] [place] TDAP (ADACEL) VACCINE Unknown Completed [facility] [place] HPV Unknown Completed [facility] [place] HPV Unknown Completed [facility] [place] Influenza Virus Vaccine Quad IM, Preserv and ABX Free 6 MO-64 YRS (FLUCELVAX) Unknown Completed [facility] [place] Influenza Virus Vaccine Quad IM, Preserv and ABX Free 6 MO-64 YRS (FLUCELVAX) Unknown Completed [facility] [place] TDAP Unknown Completed [facility] [place] Varicella (varivax)(chicken pox) Unknown Completed [facility] [place] Varicella (varivax)(chicken pox) Unknown Completed [facility] [place] TDAP Unknown Completed [facility] [place] IPV Unknown Completed [facility] [place] IPV Unknown Completed [facility] [place] IPV Unknown Completed [facility] [place] IPV Unknown Completed [facility] [place] Pneumococcal 7 Conjugate, PCV7 (Prevnar7) Unknown Completed [facility] [place] Pneumococcal 7 Conjugate, PCV7 (Prevnar7) Unknown Completed [facility] [place] Pneumococcal 7 Conjugate, PCV7 (Prevnar7) Unknown Completed [facility] [place] Pneumococcal 7 Conjugate, PCV7 (Prevnar7) Unknown Completed [facility] [place] MMR Unknown Completed [facility] [place] MMR Unknown Completed [facility] [place] Meningococcal Polysaccharide (groups A, C, Y and W-135) conjugate vaccine (MCV4P) Unknown Completed [facility] HIB 4 Dose Schedule Unknown Completed [facility] [place] HIB 4 Dose Schedule Unknown Completed [facility] [place] HIB 4 Dose Schedule Unknown Completed [facility] [place] HIB 4 Dose Schedule Unknown Completed [facility] [place] Hep B, Adol or Pedi Dosage Unknown Completed [facility] [place] Hep B, Adol or Pedi Dosage Unknown Completed [facility] [place] Hep B, Adol or Pedi Dosage Unknown Completed [facility] [place] DTaP, Unspecified Formulation Unknown Completed [facility] [place] DTaP, Unspecified Formulation Unknown Completed [facility] [place] DTaP, Unspecified Formulation Unknown Completed [facility] [place] DTaP, Unspecified Formulation Unknown Completed [facility] [place] DTaP, Unspecified Formulation Unknown Completed [facility] [place] DTaP, Unspecified Formulation Unknown Completed [facility] [place] TDAP Unknown Completed [facility] [place] Varicella (varivax)(chicken pox) Unknown Completed [facility] [place] TDAP Unknown Completed [facility] [place] Varicella (varivax)(chicken pox) Unknown Completed [facility] [place] Influenza Virus Vaccine Quad .5 mL IM 6+ MO (FLUZONE/FLULAVAL/FL UARIX) Unknown Completed [facility] [place] TDAP (ADACEL) VACCINE Unknown Completed [facility] [place] HPV Unknown Completed [facility] [place] HPV Unknown Completed [facility] [place] Influenza Virus Vaccine Quad IM, Preserv and ABX Free 6 MO-64 YRS (FLUCELVAX) Unknown Completed [facility] [place] Influenza Virus Vaccine Quad IM, Preserv and ABX Free 6 MO-64 YRS (FLUCELVAX) Unknown Completed [facility] [place] TDAP Unknown Completed [facility] [place] Varicella (varivax)(chicken pox) Unknown Completed [facility] [place] Varicella (varivax)(chicken pox) Unknown Completed [facility] [place] TDAP Unknown Completed [facility] [place] IPV Unknown Completed [facility] [place] IPV Unknown Completed [facility] [place] IPV Unknown Completed [facility] [place] IPV Unknown Completed [facility] [place] Pneumococcal 7 Conjugate, PCV7 (Prevnar7) Unknown Completed [facility] [place] Pneumococcal 7 Conjugate, PCV7 (Prevnar7) Unknown Completed [facility] [place] Pneumococcal 7 Conjugate, PCV7 (Prevnar7) Unknown Completed [facility] [place] Pneumococcal 7 Conjugate, PCV7 (Prevnar7) Unknown Completed [facility] [place] MMR Unknown Completed [facility] [place] MMR Unknown Completed [facility] [place] Meningococcal Polysaccharide (groups A, C, Y and W-135) conjugate vaccine (MCV4P) Unknown Completed [facility] HIB 4 Dose Schedule Unknown Completed [facility] [place] HIB 4 Dose Schedule Unknown Completed [facility] [place] HIB 4 Dose Schedule Unknown Completed [facility] [place] HIB 4 Dose Schedule Unknown Completed [facility] [place] Hep B, Adol or Pedi Dosage Unknown Completed [facility] [place] Hep B, Adol or Pedi Dosage Unknown Completed [facility] [place] Hep B, Adol or Pedi Dosage Unknown Completed [facility] [place] DTaP, Unspecified Formulation Unknown Completed [facility] [place] DTaP, Unspecified Formulation Unknown Completed [facility] [place] DTaP, Unspecified Formulation Unknown Completed [facility] [place] DTaP, Unspecified Formulation Unknown Completed [facility] [place] DTaP, Unspecified Formulation Unknown Completed [facility] [place] DTaP, Unspecified Formulation Unknown Completed [facility] [place] TDAP Unknown Completed [facility] [place] Varicella (varivax)(chicken pox) Unknown Completed [facility] [place] TDAP Unknown Completed [facility] [place] Varicella (varivax)(chicken pox) Unknown Completed [facility] [place] Influenza Virus Vaccine Quad .5 mL IM 6+ MO (FLUZONE/FLULAVAL/FL UARIX) Unknown Completed [facility] [place] TDAP (ADACEL) VACCINE Unknown Completed [facility] [place] HPV Unknown Completed [facility] [place] HPV Unknown Completed [facility] [place] Influenza Virus Vaccine Quad IM, Preserv and ABX Free 6 MO-64 YRS (FLUCELVAX) Unknown Completed [facility] [place] Influenza Virus Vaccine Quad IM, Preserv and ABX Free 6 MO-64 YRS (FLUCELVAX) Unknown Completed [facility] [place] TDAP Unknown Completed [facility] [place] Varicella (varivax)(chicken pox) Unknown Completed [facility] [place] Varicella (varivax)(chicken pox) Unknown Completed [facility] [place] TDAP Unknown Completed [facility] [place] IPV Unknown Completed [facility] [place] IPV Unknown Completed [facility] [place] IPV Unknown Completed [facility] [place] IPV Unknown Completed [facility] [place] Pneumococcal 7 Conjugate, PCV7 (Prevnar7) Unknown Completed [facility] [place] Pneumococcal 7 Conjugate, PCV7 (Prevnar7) Unknown Completed [facility] [place] Pneumococcal 7 Conjugate, PCV7 (Prevnar7) Unknown Completed [facility] [place] Pneumococcal 7 Conjugate, PCV7 (Prevnar7) Unknown Completed [facility] [place] MMR Unknown Completed [facility] [place] MMR Unknown Completed [facility] [place] Meningococcal Polysaccharide (groups A, C, Y and W-135) conjugate vaccine (MCV4P) Unknown Completed [facility] HIB 4 Dose Schedule Unknown Completed [facility] [place] HIB 4 Dose Schedule Unknown Completed [facility] [place] HIB 4 Dose Schedule Unknown Completed [facility] [place] HIB 4 Dose Schedule Unknown Completed [facility] [place] Hep B, Adol or Pedi Dosage Unknown Completed [facility] [place] Hep B, Adol or Pedi Dosage Unknown Completed [facility] [place] Hep B, Adol or Pedi Dosage Unknown Completed [facility] [place] DTaP, Unspecified Formulation Unknown Completed [facility] [place] DTaP, Unspecified Formulation Unknown Completed [facility] [place] DTaP, Unspecified Formulation Unknown Completed [facility] [place] DTaP, Unspecified Formulation Unknown Completed [facility] [place] DTaP, Unspecified Formulation Unknown Completed [facility] [place] DTaP, Unspecified Formulation Unknown Completed [facility] [place] TDAP Unknown Completed [facility] [place] Varicella (varivax)(chicken pox) Unknown Completed [facility] [place] TDAP Unknown Completed [facility] [place] Varicella (varivax)(chicken pox) Unknown Completed [facility] [place] Influenza Virus Vaccine Quad .5 mL IM 6+ MO (FLUZONE/FLULAVAL/FL UARIX) Unknown Completed [facility] [place] TDAP (ADACEL) VACCINE Unknown Completed [facility] [place] HPV Unknown Completed [facility] [place] HPV Unknown Completed [facility] [place] Influenza Virus Vaccine Quad IM, Preserv and ABX Free 6 MO-64 YRS (FLUCELVAX) Unknown Completed [facility] [place] Influenza Virus Vaccine Quad IM, Preserv and ABX Free 6 MO-64 YRS (FLUCELVAX) Unknown Completed [facility] [place] TDAP Unknown Completed [facility] [place] Varicella (varivax)(chicken pox) Unknown Completed [facility] [place] Varicella (varivax)(chicken pox) Unknown Completed [facility] [place] TDAP Unknown Completed [facility] [place] IPV Unknown Completed [facility] [place] IPV Unknown Completed [facility] [place] IPV Unknown Completed [facility] [place] IPV Unknown Completed [facility] [place] Pneumococcal 7 Conjugate, PCV7 (Prevnar7) Unknown Completed [facility] [place] Pneumococcal 7 Conjugate, PCV7 (Prevnar7) Unknown Completed [facility] [place] Pneumococcal 7 Conjugate, PCV7 (Prevnar7) Unknown Completed [facility] [place] Pneumococcal 7 Conjugate, PCV7 (Prevnar7) Unknown Completed [facility] [place] MMR Unknown Completed [facility] [place] MMR Unknown Completed [facility] [place] Meningococcal Polysaccharide (groups A, C, Y and W-135) conjugate vaccine (MCV4P) Unknown Completed [facility] HIB 4 Dose Schedule Unknown Completed [facility] HIB 4 Dose Schedule Unknown Completed [facility] HIB 4 Dose Schedule Unknown Completed [facility] HIB 4 Dose Schedule Unknown Completed [facility] Hep B, Adol or Pedi Dosage Unknown Completed [facility] Hep B, Adol or Pedi Dosage Unknown Completed [facility] Hep B, Adol or Pedi Dosage Unknown Completed [facility] DTaP, Unspecified Formulation Unknown Completed [facility] DTaP, Unspecified Formulation Unknown Completed [facility] DTaP, Unspecified Formulation Unknown Completed [facility] DTaP, Unspecified Formulation Unknown Completed [facility] DTaP, Unspecified Formulation Unknown Completed [facility] DTaP, Unspecified Formulation Unknown Completed [facility] TDAP Unknown Completed [facility] Varicella (varivax)(chicken pox) Unknown Completed [facility] TDAP Unknown Completed [facility] Varicella (varivax)(chicken pox) Unknown Completed [facility] Influenza Virus Vaccine Quad .5 mL IM 6+ MO (FLUZONE/FLULAVAL/FL UARIX) Unknown Completed [facility] TDAP (ADACEL) VACCINE Unknown Completed [facility] HPV Unknown Completed [facility] HPV Unknown Completed [facility] Influenza Virus Vaccine Quad IM, Preserv and ABX Free 6 MO-64 YRS (FLUCELVAX) Unknown Completed [facility] Influenza Virus Vaccine Quad IM, Preserv and ABX Free 6 MO-64 YRS (FLUCELVAX) Unknown Completed [facility] TDAP Unknown Completed [facility] Varicella (varivax)(chicken pox) Unknown Completed [facility] Varicella (varivax)(chicken pox) Unknown Completed [facility] TDAP Unknown Completed [facility] IPV Unknown Completed [facility] IPV Unknown Completed [facility] IPV Unknown Completed [facility] IPV Unknown Completed [facility] Pneumococcal 7 Conjugate, PCV7 (Prevnar7) Unknown Completed [facility] Pneumococcal 7 Conjugate, PCV7 (Prevnar7) Unknown Completed [facility] Pneumococcal 7 Conjugate, PCV7 (Prevnar7) Unknown Completed [facility] Pneumococcal 7 Conjugate, PCV7 (Prevnar7) Unknown Completed [facility] MMR Unknown Completed [facility] MMR Unknown Completed [facility] Meningococcal Polysaccharide (groups A, C, Y and W-135) conjugate vaccine (MCV4P) Unknown Completed [facility] HIB 4 Dose Schedule Unknown Completed [facility] HIB 4 Dose Schedule Unknown Completed [facility] HIB 4 Dose Schedule Unknown Completed [facility] HIB 4 Dose Schedule Unknown Completed [facility] Hep B, Adol or Pedi Dosage Unknown Completed [facility] Hep B, Adol or Pedi Dosage Unknown Completed [facility] Hep B, Adol or Pedi Dosage Unknown Completed [facility] DTaP, Unspecified Formulation Unknown Completed [facility] DTaP, Unspecified Formulation Unknown Completed [facility] DTaP, Unspecified Formulation Unknown Completed [facility] DTaP, Unspecified Formulation Unknown Completed [facility] DTaP, Unspecified Formulation Unknown Completed [facility] DTaP, Unspecified Formulation Unknown Completed [facility] TDAP Unknown Completed [facility] Varicella (varivax)(chicken pox) Unknown Completed [facility] TDAP Unknown Completed [facility] Varicella (varivax)(chicken pox) Unknown Completed [facility] Influenza Virus Vaccine Quad .5 mL IM 6+ MO (FLUZONE/FLULAVAL/FL UARIX) Unknown Completed [facility] TDAP (ADACEL) VACCINE Unknown Completed [facility] HPV Unknown Completed [facility] HPV Unknown Completed [facility] Influenza Virus Vaccine Quad IM, Preserv and ABX Free 6 MO-64 YRS (FLUCELVAX) Unknown Completed [facility] Influenza Virus Vaccine Quad IM, Preserv and ABX Free 6 MO-64 YRS (FLUCELVAX) Unknown Completed [facility] TDAP Unknown Completed [facility] Varicella (varivax)(chicken pox) Unknown Completed [facility] Varicella (varivax)(chicken pox) Unknown Completed [facility] TDAP Unknown Completed [facility] IPV Unknown Completed [facility] IPV Unknown Completed [facility] IPV Unknown Completed [facility] IPV Unknown Completed [facility] Pneumococcal 7 Conjugate, PCV7 (Prevnar7) Unknown Completed [facility] Pneumococcal 7 Conjugate, PCV7 (Prevnar7) Unknown Completed [facility] Pneumococcal 7 Conjugate, PCV7 (Prevnar7) Unknown Completed [facility] Pneumococcal 7 Conjugate, PCV7 (Prevnar7) Unknown Completed [facility] MMR Unknown Completed [facility] MMR Unknown Completed [facility] Meningococcal Polysaccharide (groups A, C, Y and W-135) conjugate vaccine (MCV4P) Unknown Completed [facility] HIB 4 Dose Schedule Unknown Completed [facility] HIB 4 Dose Schedule Unknown Completed [facility] HIB 4 Dose Schedule Unknown Completed [facility] HIB 4 Dose Schedule Unknown Completed [facility] Hep B, Adol or Pedi Dosage Unknown Completed [facility] Hep B, Adol or Pedi Dosage Unknown Completed [facility] Hep B, Adol or Pedi Dosage Unknown Completed [facility] DTaP, Unspecified Formulation Unknown Completed [facility] DTaP, Unspecified Formulation Unknown Completed [facility] DTaP, Unspecified Formulation Unknown Completed [facility] DTaP, Unspecified Formulation Unknown Completed [facility] DTaP, Unspecified Formulation Unknown Completed [facility] DTaP, Unspecified Formulation Unknown Completed [facility] TDAP Unknown Completed [facility] Varicella (varivax)(chicken pox) Unknown Completed [facility] TDAP Unknown Completed [facility] Varicella (varivax)(chicken pox) Unknown Completed [facility] Influenza Virus Vaccine Quad .5 mL IM 6+ MO (FLUZONE/FLULAVAL/FL UARIX) Unknown Completed [facility] TDAP (ADACEL) VACCINE Unknown Completed [facility] HPV Unknown Completed [facility] HPV Unknown Completed [facility] Influenza Virus Vaccine Quad IM, Preserv and ABX Free 6 MO-64 YRS (FLUCELVAX) Unknown Completed [facility] Influenza Virus Vaccine Quad IM, Preserv and ABX Free 6 MO-64 YRS (FLUCELVAX) Unknown Completed [facility] TDAP Unknown Completed [facility] Varicella (varivax)(chicken pox) Unknown Completed [facility] Varicella (varivax)(chicken pox) Unknown Completed [facility] TDAP Unknown Completed [facility] IPV Unknown Completed [facility] IPV Unknown Completed [facility] IPV Unknown Completed [facility] IPV Unknown Completed [facility] Pneumococcal 7 Conjugate, PCV7 (Prevnar7) Unknown Completed [facility] Pneumococcal 7 Conjugate, PCV7 (Prevnar7) Unknown Completed [facility] Pneumococcal 7 Conjugate, PCV7 (Prevnar7) Unknown Completed [facility] Pneumococcal 7 Conjugate, PCV7 (Prevnar7) Unknown Completed [facility] MMR Unknown Completed [facility] MMR Unknown Completed [facility] Meningococcal Polysaccharide (groups A, C, Y and W-135) conjugate vaccine (MCV4P) Unknown Completed [facility] HIB 4 Dose Schedule Unknown Completed [facility] HIB 4 Dose Schedule Unknown Completed [facility] HIB 4 Dose Schedule Unknown Completed [facility] HIB 4 Dose Schedule Unknown Completed [facility] Hep B, Adol or Pedi Dosage Unknown Completed [facility] Hep B, Adol or Pedi Dosage Unknown Completed [facility] Hep B, Adol or Pedi Dosage Unknown Completed [facility] DTaP, Unspecified Formulation Unknown Completed [facility] DTaP, Unspecified Formulation Unknown Completed [facility] DTaP, Unspecified Formulation Unknown Completed [facility] DTaP, Unspecified Formulation Unknown Completed [facility] DTaP, Unspecified Formulation Unknown Completed [facility] DTaP, Unspecified Formulation Unknown Completed [facility] TDAP Unknown Completed [facility] Varicella (varivax)(chicken pox) Unknown Completed [facility] TDAP Unknown Completed [facility] Varicella (varivax)(chicken pox) Unknown Completed [facility] Influenza Virus Vaccine Quad .5 mL IM 6+ MO (FLUZONE/FLULAVAL/FL UARIX) Unknown Completed [facility] TDAP (ADACEL) VACCINE Unknown Completed [facility] HPV Unknown Completed [facility] HPV Unknown Completed [facility] Influenza Virus Vaccine Quad IM, Preserv and ABX Free 6 MO-64 YRS (FLUCELVAX) Unknown Completed [facility] Influenza Virus Vaccine Quad IM, Preserv and ABX Free 6 MO-64 YRS (FLUCELVAX) Unknown Completed [facility] TDAP Unknown Completed [facility] Varicella (varivax)(chicken pox) Unknown Completed [facility] Varicella (varivax)(chicken pox) Unknown Completed [facility] TDAP Unknown Completed [facility] IPV Unknown Completed [facility] IPV Unknown Completed [facility] IPV Unknown Completed [facility] IPV Unknown Completed [facility] Pneumococcal 7 Conjugate, PCV7 (Prevnar7) Unknown Completed [facility] Pneumococcal 7 Conjugate, PCV7 (Prevnar7) Unknown Completed [facility] Pneumococcal 7 Conjugate, PCV7 (Prevnar7) Unknown Completed [facility] Pneumococcal 7 Conjugate, PCV7 (Prevnar7) Unknown Completed [facility] MMR Unknown Completed [facility] MMR Unknown Completed [facility] Meningococcal Polysaccharide (groups A, C, Y and W-135) conjugate vaccine (MCV4P) Unknown Completed [facility] HIB 4 Dose Schedule Unknown Completed [facility] HIB 4 Dose Schedule Unknown Completed [facility] HIB 4 Dose Schedule Unknown Completed [facility] HIB 4 Dose Schedule Unknown Completed [facility] Hep B, Adol or Pedi Dosage Unknown Completed [facility] Hep B, Adol or Pedi Dosage Unknown Completed [facility] Hep B, Adol or Pedi Dosage Unknown Completed [facility] DTaP, Unspecified Formulation Unknown Completed [facility] DTaP, Unspecified Formulation Unknown Completed [facility] DTaP, Unspecified Formulation Unknown Completed [facility] DTaP, Unspecified Formulation Unknown Completed [facility] DTaP, Unspecified Formulation Unknown Completed [facility] DTaP, Unspecified Formulation Unknown Completed [facility] TDAP Unknown Completed [facility] Varicella (varivax)(chicken pox) Unknown Completed [facility] TDAP Unknown Completed [facility] Varicella (varivax)(chicken pox) Unknown Completed [facility] Influenza Virus Vaccine Quad .5 mL IM 6+ MO (FLUZONE/FLULAVAL/FL UARIX) Unknown Completed [facility] TDAP (ADACEL) VACCINE Unknown Completed [facility] HPV Unknown Completed [facility] HPV Unknown Completed [facility] Influenza Virus Vaccine Quad IM, Preserv and ABX Free 6 MO-64 YRS (FLUCELVAX) Unknown Completed [facility] Influenza Virus Vaccine Quad IM, Preserv and ABX Free 6 MO-64 YRS (FLUCELVAX) Unknown Completed [facility] TDAP Unknown Completed [facility] Varicella (varivax)(chicken pox) Unknown Completed [facility] Varicella (varivax)(chicken pox) Unknown Completed [facility] TDAP Unknown Completed [facility] IPV Unknown Completed [facility] IPV Unknown Completed [facility] IPV Unknown Completed [facility] IPV Unknown Completed [facility] Pneumococcal 7 Conjugate, PCV7 (Prevnar7) Unknown Completed [facility] Pneumococcal 7 Conjugate, PCV7 (Prevnar7) Unknown Completed [facility] Pneumococcal 7 Conjugate, PCV7 (Prevnar7) Unknown Completed [facility] Pneumococcal 7 Conjugate, PCV7 (Prevnar7) Unknown Completed [facility] MMR Unknown Completed [facility] MMR Unknown Completed [facility] Meningococcal Polysaccharide (groups A, C, Y and W-135) conjugate vaccine (MCV4P) Unknown Completed [facility] HIB 4 Dose Schedule Unknown Completed [facility] HIB 4 Dose Schedule Unknown Completed [facility] HIB 4 Dose Schedule Unknown Completed [facility] HIB 4 Dose Schedule Unknown Completed [facility] Hep B, Adol or Pedi Dosage Unknown Completed [facility] Hep B, Adol or Pedi Dosage Unknown Completed [facility] Hep B, Adol or Pedi Dosage Unknown Completed [facility] DTaP, Unspecified Formulation Unknown Completed [facility] DTaP, Unspecified Formulation Unknown Completed [facility] DTaP, Unspecified Formulation Unknown Completed [facility] DTaP, Unspecified Formulation Unknown Completed [facility] DTaP, Unspecified Formulation Unknown Completed [facility] DTaP, Unspecified Formulation Unknown Completed [facility] TDAP Unknown Completed [facility] Varicella (varivax)(chicken pox) Unknown Completed [facility] TDAP Unknown Completed [facility] Varicella (varivax)(chicken pox) Unknown Completed [facility] Influenza Virus Vaccine Quad .5 mL IM 6+ MO (FLUZONE/FLULAVAL/FL UARIX) Unknown Completed [facility] TDAP (ADACEL) VACCINE Unknown Completed [facility] HPV Unknown Completed [facility] HPV Unknown Completed [facility] Influenza Virus Vaccine Quad IM, Preserv and ABX Free 6 MO-64 YRS (FLUCELVAX) Unknown Completed [facility] Influenza Virus Vaccine Quad IM, Preserv and ABX Free 6 MO-64 YRS (FLUCELVAX) Unknown Completed [facility] TDAP Unknown Completed [facility] Varicella (varivax)(chicken pox) Unknown Completed [facility] Varicella (varivax)(chicken pox) Unknown Completed [facility] TDAP Unknown Completed [facility] IPV Unknown Completed [facility] IPV Unknown Completed [facility] IPV Unknown Completed [facility] IPV Unknown Completed [facility] Pneumococcal 7 Conjugate, PCV7 (Prevnar7) Unknown Completed [facility] Pneumococcal 7 Conjugate, PCV7 (Prevnar7) Unknown Completed [facility] Pneumococcal 7 Conjugate, PCV7 (Prevnar7) Unknown Completed [facility] Pneumococcal 7 Conjugate, PCV7 (Prevnar7) Unknown Completed [facility] MMR Unknown Completed [facility] MMR Unknown Completed [facility] Meningococcal Polysaccharide (groups A, C, Y and W-135) conjugate vaccine (MCV4P) Unknown Completed [facility] HIB 4 Dose Schedule Unknown Completed [facility] HIB 4 Dose Schedule Unknown Completed [facility] HIB 4 Dose Schedule Unknown Completed [facility] HIB 4 Dose Schedule Unknown Completed [facility] Hep B, Adol or Pedi Dosage Unknown Completed [facility] Hep B, Adol or Pedi Dosage Unknown Completed [facility] Hep B, Adol or Pedi Dosage Unknown Completed [facility] DTaP, Unspecified Formulation Unknown Completed [facility] DTaP, Unspecified Formulation Unknown Completed [facility] DTaP, Unspecified Formulation Unknown Completed [facility] DTaP, Unspecified Formulation Unknown Completed [facility] DTaP, Unspecified Formulation Unknown Completed [facility] DTaP, Unspecified Formulation Unknown Completed [facility] TDAP Unknown Completed [facility] Varicella (varivax)(chicken pox) Unknown Completed [facility] TDAP Unknown Completed [facility] Varicella (varivax)(chicken pox) Unknown Completed [facility] Influenza Virus Vaccine Quad .5 mL IM 6+ MO (FLUZONE/FLULAVAL/FL UARIX) Unknown Completed [facility] TDAP (ADACEL) VACCINE Unknown Completed [facility] HPV Unknown Completed [facility] HPV Unknown Completed [facility] Influenza Virus Vaccine Quad IM, Preserv and ABX Free 6 MO-64 YRS (FLUCELVAX) Unknown Completed [facility] Influenza Virus Vaccine Quad IM, Preserv and ABX Free 6 MO-64 YRS (FLUCELVAX) Unknown Completed [facility] TDAP Unknown Completed [facility] Varicella (varivax)(chicken pox) Unknown Completed [facility] Varicella (varivax)(chicken pox) Unknown Completed [facility] TDAP Unknown Completed [facility] IPV Unknown Completed [facility] IPV Unknown Completed [facility] IPV Unknown Completed [facility] IPV Unknown Completed [facility] Pneumococcal 7 Conjugate, PCV7 (Prevnar7) Unknown Completed [facility] Pneumococcal 7 Conjugate, PCV7 (Prevnar7) Unknown Completed [facility] Pneumococcal 7 Conjugate, PCV7 (Prevnar7) Unknown Completed [facility] Pneumococcal 7 Conjugate, PCV7 (Prevnar7) Unknown Completed [facility] MMR Unknown Completed [facility] MMR Unknown Completed [facility] Meningococcal Polysaccharide (groups A, C, Y and W-135) conjugate vaccine (MCV4P) Unknown Completed [facility] HIB 4 Dose Schedule Unknown Completed [facility] HIB 4 Dose Schedule Unknown Completed [facility] HIB 4 Dose Schedule Unknown Completed [facility] HIB 4 Dose Schedule Unknown Completed [facility] Hep B, Adol or Pedi Dosage Unknown Completed [facility] Hep B, Adol or Pedi Dosage Unknown Completed [facility] Hep B, Adol or Pedi Dosage Unknown Completed [facility] DTaP, Unspecified Formulation Unknown Completed [facility] DTaP, Unspecified Formulation Unknown Completed [facility] DTaP, Unspecified Formulation Unknown Completed [facility] DTaP, Unspecified Formulation Unknown Completed [facility] DTaP, Unspecified Formulation Unknown Completed [facility] DTaP, Unspecified Formulation Unknown Completed [facility] TDAP Unknown Completed [facility] Varicella (varivax)(chicken pox) Unknown Completed [facility] TDAP Unknown Completed [facility] Varicella (varivax)(chicken pox) Unknown Completed [facility] Influenza Virus Vaccine Quad .5 mL IM 6+ MO (FLUZONE/FLULAVAL/FL UARIX) Unknown Completed [facility] TDAP (ADACEL) VACCINE Unknown Completed [facility] HPV Unknown Completed [facility] HPV Unknown Completed [facility] Influenza Virus Vaccine Quad IM, Preserv and ABX Free 6 MO-64 YRS (FLUCELVAX) Unknown Completed [facility] Influenza Virus Vaccine Quad IM, Preserv and ABX Free 6 MO-64 YRS (FLUCELVAX) Unknown Completed [facility] TDAP Unknown Completed [facility] Varicella (varivax)(chicken pox) Unknown Completed [facility] Varicella (varivax)(chicken pox) Unknown Completed [facility] TDAP Unknown Completed [facility] IPV Unknown Completed [facility] IPV Unknown Completed [facility] IPV Unknown Completed [facility] IPV Unknown Completed [facility] Pneumococcal 7 Conjugate, PCV7 (Prevnar7) Unknown Completed [facility] Pneumococcal 7 Conjugate, PCV7 (Prevnar7) Unknown Completed [facility] Pneumococcal 7 Conjugate, PCV7 (Prevnar7) Unknown Completed [facility] Pneumococcal 7 Conjugate, PCV7 (Prevnar7) Unknown Completed [facility] MMR Unknown Completed [facility] MMR Unknown Completed [facility] Meningococcal Polysaccharide (groups A, C, Y and W-135) conjugate vaccine (MCV4P) Unknown Completed [facility] HIB 4 Dose Schedule Unknown Completed [facility] HIB 4 Dose Schedule Unknown Completed [facility] HIB 4 Dose Schedule Unknown Completed [facility] HIB 4 Dose Schedule Unknown Completed [facility] Hep B, Adol or Pedi Dosage Unknown Completed [facility] Hep B, Adol or Pedi Dosage Unknown Completed [facility] Hep B, Adol or Pedi Dosage Unknown Completed [facility] DTaP, Unspecified Formulation Unknown Completed [facility] DTaP, Unspecified Formulation Unknown Completed [facility] DTaP, Unspecified Formulation Unknown Completed [facility] DTaP, Unspecified Formulation Unknown Completed [facility] DTaP, Unspecified Formulation Unknown Completed [facility] DTaP, Unspecified Formulation Unknown Completed [facility] TDAP Unknown Completed [facility] Varicella (varivax)(chicken pox) Unknown Completed [facility] TDAP Unknown Completed [facility] Varicella (varivax)(chicken pox) Unknown Completed [facility] Influenza Virus Vaccine Quad .5 mL IM 6+ MO (FLUZONE/FLULAVAL/FL UARIX) Unknown Completed [facility] TDAP (ADACEL) VACCINE Unknown Completed [facility] HPV Unknown Completed [facility] HPV Unknown Completed [facility] Influenza Virus Vaccine Quad IM, Preserv and ABX Free 6 MO-64 YRS (FLUCELVAX) Unknown Completed [facility] Influenza Virus Vaccine Quad IM, Preserv and ABX Free 6 MO-64 YRS (FLUCELVAX) Unknown Completed [facility] TDAP Unknown Completed [facility] Varicella (varivax)(chicken pox) Unknown Completed [facility] Varicella (varivax)(chicken pox) Unknown Completed [facility] TDAP Unknown Completed [facility] IPV Unknown Completed [facility] IPV Unknown Completed [facility] IPV Unknown Completed [facility] IPV Unknown Completed [facility] Pneumococcal 7 Conjugate, PCV7 (Prevnar7) Unknown Completed [facility] Pneumococcal 7 Conjugate, PCV7 (Prevnar7) Unknown Completed [facility] Pneumococcal 7 Conjugate, PCV7 (Prevnar7) Unknown Completed [facility] Pneumococcal 7 Conjugate, PCV7 (Prevnar7) Unknown Completed [facility] MMR Unknown Completed [facility] MMR Unknown Completed [facility] Meningococcal Polysaccharide (groups A, C, Y and W-135) conjugate vaccine (MCV4P) Unknown Completed [facility] HIB 4 Dose Schedule Unknown Completed [facility] HIB 4 Dose Schedule Unknown Completed [facility] HIB 4 Dose Schedule Unknown Completed [facility] HIB 4 Dose Schedule Unknown Completed [facility] Hep B, Adol or Pedi Dosage Unknown Completed [facility] Hep B, Adol or Pedi Dosage Unknown Completed [facility] Hep B, Adol or Pedi Dosage Unknown Completed [facility] DTaP, Unspecified Formulation Unknown Completed [facility] DTaP, Unspecified Formulation Unknown Completed [facility] DTaP, Unspecified Formulation Unknown Completed [facility] DTaP, Unspecified Formulation Unknown Completed [facility] DTaP, Unspecified Formulation Unknown Completed [facility] DTaP, Unspecified Formulation Unknown Completed [facility] TDAP Unknown Completed [facility] Varicella (varivax)(chicken pox) Unknown Completed [facility] TDAP Unknown Completed [facility] Varicella (varivax)(chicken pox) Unknown Completed [facility] Influenza Virus Vaccine Quad .5 mL IM 6+ MO (FLUZONE/FLULAVAL/FL UARIX) Unknown Completed [facility] TDAP (ADACEL) VACCINE Unknown Completed [facility] HPV Unknown Completed [facility] HPV Unknown Completed [facility] Influenza Virus Vaccine Quad IM, Preserv and ABX Free 6 MO-64 YRS (FLUCELVAX) Unknown Completed [facility] Influenza Virus Vaccine Quad IM, Preserv and ABX Free 6 MO-64 YRS (FLUCELVAX) Unknown Completed [facility] TDAP Unknown Completed [facility] Varicella (varivax)(chicken pox) Unknown Completed [facility] Varicella (varivax)(chicken pox) Unknown Completed [facility] TDAP Unknown Completed [facility] IPV Unknown Completed [facility] IPV Unknown Completed [facility] IPV Unknown Completed [facility] IPV Unknown Completed [facility] Pneumococcal 7 Conjugate, PCV7 (Prevnar7) Unknown Completed [facility] Pneumococcal 7 Conjugate, PCV7 (Prevnar7) Unknown Completed [facility] Pneumococcal 7 Conjugate, PCV7 (Prevnar7) Unknown Completed [facility] Pneumococcal 7 Conjugate, PCV7 (Prevnar7) Unknown Completed [facility] MMR Unknown Completed [facility] MMR Unknown Completed [facility] Meningococcal Polysaccharide (groups A, C, Y and W-135) conjugate vaccine (MCV4P) Unknown Completed [facility] HIB 4 Dose Schedule Unknown Completed [facility] HIB 4 Dose Schedule Unknown Completed [facility] HIB 4 Dose Schedule Unknown Completed [facility] HIB 4 Dose Schedule Unknown Completed [facility] Hep B, Adol or Pedi Dosage Unknown Completed [facility] Hep B, Adol or Pedi Dosage Unknown Completed [facility] Hep B, Adol or Pedi Dosage Unknown Completed [facility] DTaP, Unspecified Formulation Unknown Completed [facility] DTaP, Unspecified Formulation Unknown Completed [facility] DTaP, Unspecified Formulation Unknown Completed [facility] DTaP, Unspecified Formulation Unknown Completed [facility] DTaP, Unspecified Formulation Unknown Completed [facility] DTaP, Unspecified Formulation Unknown Completed [facility] TDAP Unknown Completed [facility] Varicella (varivax)(chicken pox) Unknown Completed [facility] TDAP Unknown Completed [facility] Varicella (varivax)(chicken pox) Unknown Completed [facility] Influenza Virus Vaccine Quad .5 mL IM 6+ MO (FLUZONE/FLULAVAL/FL UARIX) Unknown Completed [facility] TDAP (ADACEL) VACCINE Unknown Completed [facility] HPV Unknown Completed [facility] HPV Unknown Completed [facility] Influenza Virus Vaccine Quad IM, Preserv and ABX Free 6 MO-64 YRS (FLUCELVAX) Unknown Completed [facility] Influenza Virus Vaccine Quad IM, Preserv and ABX Free 6 MO-64 YRS (FLUCELVAX) Unknown Completed [facility] TDAP Unknown Completed [facility] Varicella (varivax)(chicken pox) Unknown Completed [facility] Varicella (varivax)(chicken pox) Unknown Completed [facility] TDAP Unknown Completed [facility] IPV Unknown Completed [facility] IPV Unknown Completed [facility] IPV Unknown Completed [facility] IPV Unknown Completed [facility] Pneumococcal 7 Conjugate, PCV7 (Prevnar7) Unknown Completed [facility] Pneumococcal 7 Conjugate, PCV7 (Prevnar7) Unknown Completed [facility] Pneumococcal 7 Conjugate, PCV7 (Prevnar7) Unknown Completed [facility] Pneumococcal 7 Conjugate, PCV7 (Prevnar7) Unknown Completed [facility] MMR Unknown Completed [facility] MMR Unknown Completed [facility] Meningococcal Polysaccharide (groups A, C, Y and W-135) conjugate vaccine (MCV4P) Unknown Completed [facility] HIB 4 Dose Schedule Unknown Completed [facility] HIB 4 Dose Schedule Unknown Completed [facility] HIB 4 Dose Schedule Unknown Completed [facility] HIB 4 Dose Schedule Unknown Completed [facility] Hep B, Adol or Pedi Dosage Unknown Completed [facility] Hep B, Adol or Pedi Dosage Unknown Completed [facility] Hep B, Adol or Pedi Dosage Unknown Completed [facility] DTaP, Unspecified Formulation Unknown Completed [facility] DTaP, Unspecified Formulation Unknown Completed [facility] DTaP, Unspecified Formulation Unknown Completed [facility] DTaP, Unspecified Formulation Unknown Completed [facility] DTaP, Unspecified Formulation Unknown Completed [facility] DTaP, Unspecified Formulation Unknown Completed [facility] TDAP Unknown Completed [facility] Varicella (varivax)(chicken pox) Unknown Completed [facility] TDAP Unknown Completed [facility] Varicella (varivax)(chicken pox) Unknown Completed [facility] Influenza Virus Vaccine Quad .5 mL IM 6+ MO (FLUZONE/FLULAVAL/FL UARIX) Unknown Completed [facility] TDAP (ADACEL) VACCINE Unknown Completed [facility] HPV Unknown Completed [facility] HPV Unknown Completed [facility] Influenza Virus Vaccine Quad IM, Preserv and ABX Free 6 MO-64 YRS (FLUCELVAX) Unknown Completed [facility] Influenza Virus Vaccine Quad IM, Preserv and ABX Free 6 MO-64 YRS (FLUCELVAX) Unknown Completed [facility] TDAP Unknown Completed [facility] Varicella (varivax)(chicken pox) Unknown Completed [facility] Varicella (varivax)(chicken pox) Unknown Completed [facility] TDAP Unknown Completed [facility] IPV Unknown Completed [facility] IPV Unknown Completed [facility] IPV Unknown Completed [facility] IPV Unknown Completed [facility] Pneumococcal 7 Conjugate, PCV7 (Prevnar7) Unknown Completed [facility] Pneumococcal 7 Conjugate, PCV7 (Prevnar7) Unknown Completed [facility] Pneumococcal 7 Conjugate, PCV7 (Prevnar7) Unknown Completed [facility] Pneumococcal 7 Conjugate, PCV7 (Prevnar7) Unknown Completed [facility] MMR Unknown Completed [facility] MMR Unknown Completed [facility] Meningococcal Polysaccharide (groups A, C, Y and W-135) conjugate vaccine (MCV4P) Unknown Completed [facility] HIB 4 Dose Schedule Unknown Completed [facility] HIB 4 Dose Schedule Unknown Completed [facility] HIB 4 Dose Schedule Unknown Completed [facility] HIB 4 Dose Schedule Unknown Completed [facility] Hep B, Adol or Pedi Dosage Unknown Completed [facility] Hep B, Adol or Pedi Dosage Unknown Completed [facility] Hep B, Adol or Pedi Dosage Unknown Completed [facility] DTaP, Unspecified Formulation Unknown Completed [facility] DTaP, Unspecified Formulation Unknown Completed [facility] DTaP, Unspecified Formulation Unknown Completed [facility] DTaP, Unspecified Formulation Unknown Completed [facility] DTaP, Unspecified Formulation Unknown Completed [facility] DTaP, Unspecified Formulation Unknown Completed [facility] TDAP Unknown Completed [facility] Varicella (varivax)(chicken pox) Unknown Completed [facility] TDAP Unknown Completed [facility] Varicella (varivax)(chicken pox) Unknown Completed [facility] Influenza Virus Vaccine Quad .5 mL IM 6+ MO (FLUZONE/FLULAVAL/FL UARIX) Unknown Completed [facility] TDAP (ADACEL) VACCINE Unknown Completed [facility] HPV Unknown Completed [facility] HPV Unknown Completed [facility] Influenza Virus Vaccine Quad IM, Preserv and ABX Free 6 MO-64 YRS (FLUCELVAX) Unknown Completed [facility] Influenza Virus Vaccine Quad IM, Preserv and ABX Free 6 MO-64 YRS (FLUCELVAX) Unknown Completed [facility] TDAP Unknown Completed [facility] Varicella (varivax)(chicken pox) Unknown Completed [facility] Varicella (varivax)(chicken pox) Unknown Completed [facility] TDAP Unknown Completed [facility] IPV Unknown Completed [facility] IPV Unknown Completed [facility] IPV Unknown Completed [facility] IPV Unknown Completed [facility] Pneumococcal 7 Conjugate, PCV7 (Prevnar7) Unknown Completed [facility] Pneumococcal 7 Conjugate, PCV7 (Prevnar7) Unknown Completed [facility] Pneumococcal 7 Conjugate, PCV7 (Prevnar7) Unknown Completed [facility] Pneumococcal 7 Conjugate, PCV7 (Prevnar7) Unknown Completed [facility] MMR Unknown Completed [facility] MMR Unknown Completed [facility] Meningococcal Polysaccharide (groups A, C, Y and W-135) conjugate vaccine (MCV4P) Unknown Completed [facility] HIB 4 Dose Schedule Unknown Completed [facility] HIB 4 Dose Schedule Unknown Completed [facility] HIB 4 Dose Schedule Unknown Completed [facility] HIB 4 Dose Schedule Unknown Completed [facility] Hep B, Adol or Pedi Dosage Unknown Completed [facility] Hep B, Adol or Pedi Dosage Unknown Completed [facility] Hep B, Adol or Pedi Dosage Unknown Completed [facility] DTaP, Unspecified Formulation Unknown Completed [facility] DTaP, Unspecified Formulation Unknown Completed [facility] DTaP, Unspecified Formulation Unknown Completed [facility] DTaP, Unspecified Formulation Unknown Completed [facility] DTaP, Unspecified Formulation Unknown Completed [facility] DTaP, Unspecified Formulation Unknown Completed [facility] TDAP Unknown Completed [facility] Varicella (varivax)(chicken pox) Unknown Completed [facility] TDAP Unknown Completed [facility] Varicella (varivax)(chicken pox) Unknown Completed [facility] Influenza Virus Vaccine Quad .5 mL IM 6+ MO (FLUZONE/FLULAVAL/FL UARIX) Unknown Completed [facility] TDAP (ADACEL) VACCINE Unknown Completed [facility] HPV Unknown Completed [facility] HPV Unknown Completed [facility] Influenza Virus Vaccine Quad IM, Preserv and ABX Free 6 MO-64 YRS (FLUCELVAX) Unknown Completed [facility] Influenza Virus Vaccine Quad IM, Preserv and ABX Free 6 MO-64 YRS (FLUCELVAX) Unknown Completed [facility] TDAP Unknown Completed [facility] Varicella (varivax)(chicken pox) Unknown Completed [facility] Varicella (varivax)(chicken pox) Unknown Completed [facility] TDAP Unknown Completed [facility] IPV Unknown Completed [facility] IPV Unknown Completed [facility] IPV Unknown Completed [facility] IPV Unknown Completed [facility] Pneumococcal 7 Conjugate, PCV7 (Prevnar7) Unknown Completed [facility] Pneumococcal 7 Conjugate, PCV7 (Prevnar7) Unknown Completed [facility] Pneumococcal 7 Conjugate, PCV7 (Prevnar7) Unknown Completed [facility] Pneumococcal 7 Conjugate, PCV7 (Prevnar7) Unknown Completed [facility] MMR Unknown Completed [facility] MMR Unknown Completed [facility] Meningococcal Polysaccharide (groups A, C, Y and W-135) conjugate vaccine (MCV4P) Unknown Completed [facility] HIB 4 Dose Schedule Unknown Completed [facility] HIB 4 Dose Schedule Unknown Completed [facility] HIB 4 Dose Schedule Unknown Completed [facility] HIB 4 Dose Schedule Unknown Completed [facility] Hep B, Adol or Pedi Dosage Unknown Completed [facility] Hep B, Adol or Pedi Dosage Unknown Completed [facility] Hep B, Adol or Pedi Dosage Unknown Completed [facility] DTaP, Unspecified Formulation Unknown Completed [facility] DTaP, Unspecified Formulation Unknown Completed [facility] DTaP, Unspecified Formulation Unknown Completed [facility] DTaP, Unspecified Formulation Unknown Completed [facility] DTaP, Unspecified Formulation Unknown Completed [facility] DTaP, Unspecified Formulation Unknown Completed [facility] TDAP Unknown Completed [facility] Varicella (varivax)(chicken pox) Unknown Completed [facility] TDAP Unknown Completed [facility] Varicella (varivax)(chicken pox) Unknown Completed [facility] Influenza Virus Vaccine Quad .5 mL IM 6+ MO (FLUZONE/FLULAVAL/FL UARIX) Unknown Completed [facility] TDAP (ADACEL) VACCINE Unknown Completed [facility] HPV Unknown Completed [facility] HPV Unknown Completed [facility] Influenza Virus Vaccine Quad IM, Preserv and ABX Free 6 MO-64 YRS (FLUCELVAX) Unknown Completed [facility] Influenza Virus Vaccine Quad IM, Preserv and ABX Free 6 MO-64 YRS (FLUCELVAX) Unknown Completed [facility] TDAP Unknown Completed [facility] Varicella (varivax)(chicken pox) Unknown Completed [facility] Varicella (varivax)(chicken pox) Unknown Completed [facility] TDAP Unknown Completed [facility] IPV Unknown Completed [facility] IPV Unknown Completed [facility] IPV Unknown Completed [facility] IPV Unknown Completed [facility] Pneumococcal 7 Conjugate, PCV7 (Prevnar7) Unknown Completed [facility] Pneumococcal 7 Conjugate, PCV7 (Prevnar7) Unknown Completed [facility] Pneumococcal 7 Conjugate, PCV7 (Prevnar7) Unknown Completed [facility] Pneumococcal 7 Conjugate, PCV7 (Prevnar7) Unknown Completed [facility] MMR Unknown Completed [facility] MMR Unknown Completed [facility] Meningococcal Polysaccharide (groups A, C, Y and W-135) conjugate vaccine (MCV4P) Unknown Completed [facility] HIB 4 Dose Schedule Unknown Completed [facility] HIB 4 Dose Schedule Unknown Completed [facility] HIB 4 Dose Schedule Unknown Completed [facility] HIB 4 Dose Schedule Unknown Completed [facility] Hep B, Adol or Pedi Dosage Unknown Completed [facility] Hep B, Adol or Pedi Dosage Unknown Completed [facility] Hep B, Adol or Pedi Dosage Unknown Completed [facility] DTaP, Unspecified Formulation Unknown Completed [facility] DTaP, Unspecified Formulation Unknown Completed [facility] DTaP, Unspecified Formulation Unknown Completed [facility] DTaP, Unspecified Formulation Unknown Completed [facility] DTaP, Unspecified Formulation Unknown Completed [facility] DTaP, Unspecified Formulation Unknown Completed [facility] TDAP Unknown Completed [facility] Varicella (varivax)(chicken pox) Unknown Completed [facility] TDAP Unknown Completed [facility] Varicella (varivax)(chicken pox) Unknown Completed [facility] Influenza Virus Vaccine Quad .5 mL IM 6+ MO (FLUZONE/FLULAVAL/FL UARIX) Unknown Completed [facility] TDAP (ADACEL) VACCINE Unknown Completed [facility] HPV Unknown Completed [facility] HPV Unknown Completed [facility] Influenza Virus Vaccine Quad IM, Preserv and ABX Free 6 MO-64 YRS (FLUCELVAX) Unknown Completed [facility] Influenza Virus Vaccine Quad IM, Preserv and ABX Free 6 MO-64 YRS (FLUCELVAX) Unknown Completed [facility] TDAP Unknown Completed [facility] Varicella (varivax)(chicken pox) Unknown Completed [facility] Varicella (varivax)(chicken pox) Unknown Completed [facility] TDAP Unknown Completed [facility] IPV Unknown Completed [facility] IPV Unknown Completed [facility] IPV Unknown Completed [facility] IPV Unknown Completed [facility] Pneumococcal 7 Conjugate, PCV7 (Prevnar7) Unknown Completed [facility] Pneumococcal 7 Conjugate, PCV7 (Prevnar7) Unknown Completed [facility] Pneumococcal 7 Conjugate, PCV7 (Prevnar7) Unknown Completed [facility] Pneumococcal 7 Conjugate, PCV7 (Prevnar7) Unknown Completed [facility] MMR Unknown Completed [facility] MMR Unknown Completed [facility] Meningococcal Polysaccharide (groups A, C, Y and W-135) conjugate vaccine (MCV4P) Unknown Completed [facility] HIB 4 Dose Schedule Unknown Completed [facility] HIB 4 Dose Schedule Unknown Completed [facility] HIB 4 Dose Schedule Unknown Completed [facility] HIB 4 Dose Schedule Unknown Completed [facility] Hep B, Adol or Pedi Dosage Unknown Completed [facility] Hep B, Adol or Pedi Dosage Unknown Completed [facility] Hep B, Adol or Pedi Dosage Unknown Completed [facility] DTaP, Unspecified Formulation Unknown Completed [facility] DTaP, Unspecified Formulation Unknown Completed [facility] DTaP, Unspecified Formulation Unknown Completed [facility] DTaP, Unspecified Formulation Unknown Completed [facility] DTaP, Unspecified Formulation Unknown Completed [facility] DTaP, Unspecified Formulation Unknown Completed [facility] TDAP Unknown Completed [facility] Varicella (varivax)(chicken pox) Unknown Completed [facility] TDAP Unknown Completed [facility] Varicella (varivax)(chicken pox) Unknown Completed [facility] Influenza Virus Vaccine Quad .5 mL IM 6+ MO (FLUZONE/FLULAVAL/FL UARIX) Unknown Completed [facility] TDAP (ADACEL) VACCINE Unknown Completed [facility] HPV Unknown Completed [facility] HPV Unknown Completed [facility] Influenza Virus Vaccine Quad IM, Preserv and ABX Free 6 MO-64 YRS (FLUCELVAX) Unknown Completed [facility] Influenza Virus Vaccine Quad IM, Preserv and ABX Free 6 MO-64 YRS (FLUCELVAX) Unknown Completed [facility] TDAP Unknown Completed [facility] Varicella (varivax)(chicken pox) Unknown Completed [facility] Varicella (varivax)(chicken pox) Unknown Completed [facility] TDAP Unknown Completed [facility] IPV Unknown Completed [facility] IPV Unknown Completed [facility] IPV Unknown Completed [facility] IPV Unknown Completed [facility] Pneumococcal 7 Conjugate, PCV7 (Prevnar7) Unknown Completed [facility] Pneumococcal 7 Conjugate, PCV7 (Prevnar7) Unknown Completed [facility] Pneumococcal 7 Conjugate, PCV7 (Prevnar7) Unknown Completed [facility] Pneumococcal 7 Conjugate, PCV7 (Prevnar7) Unknown Completed [facility] MMR Unknown Completed [facility] MMR Unknown Completed [facility] Meningococcal Polysaccharide (groups A, C, Y and W-135) conjugate vaccine (MCV4P) Unknown Completed [facility] HIB 4 Dose Schedule Unknown Completed [facility] HIB 4 Dose Schedule Unknown Completed [facility] HIB 4 Dose Schedule Unknown Completed [facility] HIB 4 Dose Schedule Unknown Completed [facility] Hep B, Adol or Pedi Dosage Unknown Completed [facility] Hep B, Adol or Pedi Dosage Unknown Completed [facility] Hep B, Adol or Pedi Dosage Unknown Completed [facility] DTaP, Unspecified Formulation Unknown Completed [facility] DTaP, Unspecified Formulation Unknown Completed [facility] DTaP, Unspecified Formulation Unknown Completed [facility] DTaP, Unspecified Formulation Unknown Completed [facility] DTaP, Unspecified Formulation Unknown Completed [facility] DTaP, Unspecified Formulation Unknown Completed [facility] TDAP Unknown Completed [facility] Varicella (varivax)(chicken pox) Unknown Completed [facility] TDAP Unknown Completed [facility] Varicella (varivax)(chicken pox) Unknown Completed [facility] Influenza Virus Vaccine Quad .5 mL IM 6+ MO (FLUZONE/FLULAVAL/FL UARIX) Unknown Completed [facility] TDAP (ADACEL) VACCINE Unknown Completed [facility] HPV Unknown Completed [facility] HPV Unknown Completed [facility] Influenza Virus Vaccine Quad IM, Preserv and ABX Free 6 MO-64 YRS (FLUCELVAX) Unknown Completed [facility] Influenza Virus Vaccine Quad IM, Preserv and ABX Free 6 MO-64 YRS (FLUCELVAX) Unknown Completed [facility] TDAP Unknown Completed [facility] Varicella (varivax)(chicken pox) Unknown Completed [facility] Varicella (varivax)(chicken pox) Unknown Completed [facility] TDAP Unknown Completed [facility] IPV Unknown Completed [facility] IPV Unknown Completed [facility] IPV Unknown Completed [facility] IPV Unknown Completed [facility] Pneumococcal 7 Conjugate, PCV7 (Prevnar7) Unknown Completed [facility] Pneumococcal 7 Conjugate, PCV7 (Prevnar7) Unknown Completed [facility] Pneumococcal 7 Conjugate, PCV7 (Prevnar7) Unknown Completed [facility] Pneumococcal 7 Conjugate, PCV7 (Prevnar7) Unknown Completed [facility] MMR Unknown Completed [facility] MMR Unknown Completed [facility] Meningococcal Polysaccharide (groups A, C, Y and W-135) conjugate vaccine (MCV4P) Unknown Completed [facility] HIB 4 Dose Schedule Unknown Completed [facility] HIB 4 Dose Schedule Unknown Completed [facility] HIB 4 Dose Schedule Unknown Completed [facility] HIB 4 Dose Schedule Unknown Completed [facility] Hep B, Adol or Pedi Dosage Unknown Completed [facility] Hep B, Adol or Pedi Dosage Unknown Completed [facility] Hep B, Adol or Pedi Dosage Unknown Completed [facility] DTaP, Unspecified Formulation Unknown Completed [facility] DTaP, Unspecified Formulation Unknown Completed [facility] DTaP, Unspecified Formulation Unknown Completed [facility] DTaP, Unspecified Formulation Unknown Completed [facility] DTaP, Unspecified Formulation Unknown Completed [facility] DTaP, Unspecified Formulation Unknown Completed [facility] TDAP Unknown Completed [facility] Varicella (varivax)(chicken pox) Unknown Completed [facility] TDAP Unknown Completed [facility] Varicella (varivax)(chicken pox) Unknown Completed [facility] Influenza Virus Vaccine Quad .5 mL IM 6+ MO (FLUZONE/FLULAVAL/FL UARIX) Unknown Completed [facility] TDAP (ADACEL) VACCINE Unknown Completed [facility] HPV Unknown Completed [facility] HPV Unknown Completed [facility] Influenza Virus Vaccine Quad IM, Preserv and ABX Free 6 MO-64 YRS (FLUCELVAX) Unknown Completed [facility] Influenza Virus Vaccine Quad IM, Preserv and ABX Free 6 MO-64 YRS (FLUCELVAX) Unknown Completed [facility] TDAP Unknown Completed [facility] Varicella (varivax)(chicken pox) Unknown Completed [facility] Varicella (varivax)(chicken pox) Unknown Completed [facility] TDAP Unknown Completed [facility] IPV Unknown Completed [facility] IPV Unknown Completed [facility] IPV Unknown Completed [facility] IPV Unknown Completed [facility] Pneumococcal 7 Conjugate, PCV7 (Prevnar7) Unknown Completed [facility] Pneumococcal 7 Conjugate, PCV7 (Prevnar7) Unknown Completed [facility] Pneumococcal 7 Conjugate, PCV7 (Prevnar7) Unknown Completed [facility] Pneumococcal 7 Conjugate, PCV7 (Prevnar7) Unknown Completed [facility] MMR Unknown Completed [facility] MMR Unknown Completed [facility] Meningococcal Polysaccharide (groups A, C, Y and W-135) conjugate vaccine (MCV4P) Unknown Completed [facility] HIB 4 Dose Schedule Unknown Completed [facility] HIB 4 Dose Schedule Unknown Completed [facility] HIB 4 Dose Schedule Unknown Completed [facility] HIB 4 Dose Schedule Unknown Completed [facility] Hep B, Adol or Pedi Dosage Unknown Completed [facility] Hep B, Adol or Pedi Dosage Unknown Completed [facility] Hep B, Adol or Pedi Dosage Unknown Completed [facility] DTaP, Unspecified Formulation Unknown Completed [facility] DTaP, Unspecified Formulation Unknown Completed [facility] DTaP, Unspecified Formulation Unknown Completed [facility] DTaP, Unspecified Formulation Unknown Completed [facility] DTaP, Unspecified Formulation Unknown Completed [facility] DTaP, Unspecified Formulation Unknown Completed [facility] TDAP Unknown Completed [facility] Varicella (varivax)(chicken pox) Unknown Completed [facility] TDAP Unknown Completed [facility] Varicella (varivax)(chicken pox) Unknown Completed [facility] Influenza Virus Vaccine Quad .5 mL IM 6+ MO (FLUZONE/FLULAVAL/FL UARIX) Unknown Completed [facility] TDAP (ADACEL) VACCINE Unknown Completed [facility] HPV Unknown Completed [facility] HPV Unknown Completed [facility] Influenza Virus Vaccine Quad IM, Preserv and ABX Free 6 MO-64 YRS (FLUCELVAX) Unknown Completed [facility] Influenza Virus Vaccine Quad IM, Preserv and ABX Free 6 MO-64 YRS (FLUCELVAX) Unknown Completed [facility] TDAP Unknown Completed [facility] Varicella (varivax)(chicken pox) Unknown Completed [facility] Varicella (varivax)(chicken pox) Unknown Completed [facility] TDAP Unknown Completed [facility] IPV Unknown Completed [facility] IPV Unknown Completed [facility] IPV Unknown Completed [facility] IPV Unknown Completed [facility] Pneumococcal 7 Conjugate, PCV7 (Prevnar7) Unknown Completed [facility] Pneumococcal 7 Conjugate, PCV7 (Prevnar7) Unknown Completed [facility] Pneumococcal 7 Conjugate, PCV7 (Prevnar7) Unknown Completed [facility] Pneumococcal 7 Conjugate, PCV7 (Prevnar7) Unknown Completed [facility] MMR Unknown Completed [facility] MMR Unknown Completed [facility] Meningococcal Polysaccharide (groups A, C, Y and W-135) conjugate vaccine (MCV4P) Unknown Completed [facility] HIB 4 Dose Schedule Unknown Completed [facility] HIB 4 Dose Schedule Unknown Completed [facility] HIB 4 Dose Schedule Unknown Completed [facility] HIB 4 Dose Schedule Unknown Completed [facility] Hep B, Adol or Pedi Dosage Unknown Completed [facility] Hep B, Adol or Pedi Dosage Unknown Completed [facility] Hep B, Adol or Pedi Dosage Unknown Completed [facility] DTaP, Unspecified Formulation Unknown Completed [facility] DTaP, Unspecified Formulation Unknown Completed [facility] DTaP, Unspecified Formulation Unknown Completed [facility] DTaP, Unspecified Formulation Unknown Completed [facility] DTaP, Unspecified Formulation Unknown Completed [facility] DTaP, Unspecified Formulation Unknown Completed [facility] TDAP Unknown Completed [facility] Varicella (varivax)(chicken pox) Unknown Completed [facility] TDAP Unknown Completed [facility] Varicella (varivax)(chicken pox) Unknown Completed [facility] Influenza Virus Vaccine Quad .5 mL IM 6+ MO (FLUZONE/FLULAVAL/FL UARIX) Unknown Completed [facility] TDAP (ADACEL) VACCINE Unknown Completed [facility] HPV Unknown Completed [facility] HPV Unknown Completed [facility] Influenza Virus Vaccine Quad IM, Preserv and ABX Free 6 MO-64 YRS (FLUCELVAX) Unknown Completed [facility] Influenza Virus Vaccine Quad IM, Preserv and ABX Free 6 MO-64 YRS (FLUCELVAX) Unknown Completed [facility] TDAP Unknown Completed [facility] Varicella (varivax)(chicken pox) Unknown Completed [facility] Varicella (varivax)(chicken pox) Unknown Completed [facility] TDAP Unknown Completed [facility] IPV Unknown Completed [facility] IPV Unknown Completed [facility] IPV Unknown Completed [facility] IPV Unknown Completed [facility] Pneumococcal 7 Conjugate, PCV7 (Prevnar7) Unknown Completed [facility] Pneumococcal 7 Conjugate, PCV7 (Prevnar7) Unknown Completed [facility] Pneumococcal 7 Conjugate, PCV7 (Prevnar7) Unknown Completed [facility] Pneumococcal 7 Conjugate, PCV7 (Prevnar7) Unknown Completed [facility] MMR Unknown Completed [facility] MMR Unknown Completed [facility] Meningococcal Polysaccharide (groups A, C, Y and W-135) conjugate vaccine (MCV4P) Unknown Completed [facility] HIB 4 Dose Schedule Unknown Completed [facility] HIB 4 Dose Schedule Unknown Completed [facility] HIB 4 Dose Schedule Unknown Completed [facility] HIB 4 Dose Schedule Unknown Completed [facility] Hep B, Adol or Pedi Dosage Unknown Completed [facility] Hep B, Adol or Pedi Dosage Unknown Completed [facility] Hep B, Adol or Pedi Dosage Unknown Completed [facility] DTaP, Unspecified Formulation Unknown Completed [facility] DTaP, Unspecified Formulation Unknown Completed [facility] DTaP, Unspecified Formulation Unknown Completed [facility] DTaP, Unspecified Formulation Unknown Completed [facility] DTaP, Unspecified Formulation Unknown Completed [facility] DTaP, Unspecified Formulation Unknown Completed [facility] TDAP Unknown Completed [facility] Varicella (varivax)(chicken pox) Unknown Completed [facility] TDAP Unknown Completed [facility] Varicella (varivax)(chicken pox) Unknown Completed [facility] Influenza Virus Vaccine Quad .5 mL IM 6+ MO (FLUZONE/FLULAVAL/FL UARIX) Unknown Completed [facility] TDAP (ADACEL) VACCINE Unknown Completed [facility] HPV Unknown Completed [facility] HPV Unknown Completed [facility] Influenza Virus Vaccine Quad IM, Preserv and ABX Free 6 MO-64 YRS (FLUCELVAX) Unknown Completed [facility] Influenza Virus Vaccine Quad IM, Preserv and ABX Free 6 MO-64 YRS (FLUCELVAX) Unknown Completed [facility] TDAP Unknown Completed [facility] Varicella (varivax)(chicken pox) Unknown Completed [facility] Varicella (varivax)(chicken pox) Unknown Completed [facility] TDAP Unknown Completed [facility] IPV Unknown Completed [facility] IPV Unknown Completed [facility] IPV Unknown Completed [facility] IPV Unknown Completed [facility] Pneumococcal 7 Conjugate, PCV7 (Prevnar7) Unknown Completed [facility] Pneumococcal 7 Conjugate, PCV7 (Prevnar7) Unknown Completed [facility] Pneumococcal 7 Conjugate, PCV7 (Prevnar7) Unknown Completed [facility] Pneumococcal 7 Conjugate, PCV7 (Prevnar7) Unknown Completed [facility] MMR Unknown Completed [facility] MMR Unknown Completed [facility] Meningococcal Polysaccharide (groups A, C, Y and W-135) conjugate vaccine (MCV4P) Unknown Completed [facility] HIB 4 Dose Schedule Unknown Completed [facility] HIB 4 Dose Schedule Unknown Completed [facility] HIB 4 Dose Schedule Unknown Completed [facility] HIB 4 Dose Schedule Unknown Completed [facility] Hep B, Adol or Pedi Dosage Unknown Completed [facility] Hep B, Adol or Pedi Dosage Unknown Completed [facility] Hep B, Adol or Pedi Dosage Unknown Completed [facility] DTaP, Unspecified Formulation Unknown Completed [facility] DTaP, Unspecified Formulation Unknown Completed [facility] DTaP, Unspecified Formulation Unknown Completed [facility] DTaP, Unspecified Formulation Unknown Completed [facility] DTaP, Unspecified Formulation Unknown Completed [facility] DTaP, Unspecified Formulation Unknown Completed [facility] TDAP Unknown Completed [facility] Varicella (varivax)(chicken pox) Unknown Completed [facility] TDAP Unknown Completed [facility] Varicella (varivax)(chicken pox) Unknown Completed [facility] Influenza Virus Vaccine Quad .5 mL IM 6+ MO (FLUZONE/FLULAVAL/FL UARIX) Unknown Completed [facility] TDAP (ADACEL) VACCINE Unknown Completed [facility] HPV Unknown Completed [facility] HPV Unknown Completed [facility] Influenza Virus Vaccine Quad IM, Preserv and ABX Free 6 MO-64 YRS (FLUCELVAX) Unknown Completed [facility] Influenza Virus Vaccine Quad IM, Preserv and ABX Free 6 MO-64 YRS (FLUCELVAX) Unknown Completed [facility] TDAP Unknown Completed [facility] Varicella (varivax)(chicken pox) Unknown Completed [facility] Varicella (varivax)(chicken pox) Unknown Completed [facility] TDAP Unknown Completed [facility] IPV Unknown Completed [facility] IPV Unknown Completed [facility] IPV Unknown Completed [facility] IPV Unknown Completed [facility] Pneumococcal 7 Conjugate, PCV7 (Prevnar7) Unknown Completed [facility] Pneumococcal 7 Conjugate, PCV7 (Prevnar7) Unknown Completed [facility] Pneumococcal 7 Conjugate, PCV7 (Prevnar7) Unknown Completed [facility] Pneumococcal 7 Conjugate, PCV7 (Prevnar7) Unknown Completed [facility] MMR Unknown Completed [facility] MMR Unknown Completed [facility] Meningococcal Polysaccharide (groups A, C, Y and W-135) conjugate vaccine (MCV4P) Unknown Completed [facility] HIB 4 Dose Schedule Unknown Completed [facility] HIB 4 Dose Schedule Unknown Completed [facility] HIB 4 Dose Schedule Unknown Completed [facility] HIB 4 Dose Schedule Unknown Completed [facility] Hep B, Adol or Pedi Dosage Unknown Completed [facility] Hep B, Adol or Pedi Dosage Unknown Completed [facility] Hep B, Adol or Pedi Dosage Unknown Completed [facility] DTaP, Unspecified Formulation Unknown Completed [facility] DTaP, Unspecified Formulation Unknown Completed [facility] DTaP, Unspecified Formulation Unknown Completed [facility] DTaP, Unspecified Formulation Unknown Completed [facility] DTaP, Unspecified Formulation Unknown Completed [facility] DTaP, Unspecified Formulation Unknown Completed [facility] TDAP Unknown Completed [facility] Varicella (varivax)(chicken pox) Unknown Completed [facility] TDAP Unknown Completed [facility] Varicella (varivax)(chicken pox) Unknown Completed [facility] Influenza Virus Vaccine Quad .5 mL IM 6+ MO (FLUZONE/FLULAVAL/FL UARIX) Unknown Completed [facility] TDAP (ADACEL) VACCINE Unknown Completed [facility] HPV Unknown Completed [facility] HPV Unknown Completed [facility] Influenza Virus Vaccine Quad IM, Preserv and ABX Free 6 MO-64 YRS (FLUCELVAX) Unknown Completed [facility] Influenza Virus Vaccine Quad IM, Preserv and ABX Free 6 MO-64 YRS (FLUCELVAX) Unknown Completed [facility] TDAP Unknown Completed [facility] Varicella (varivax)(chicken pox) Unknown Completed [facility] Varicella (varivax)(chicken pox) Unknown Completed [facility] TDAP Unknown Completed [facility] IPV Unknown Completed [facility] IPV Unknown Completed [facility] IPV Unknown Completed [facility] IPV Unknown Completed [facility] Pneumococcal 7 Conjugate, PCV7 (Prevnar7) Unknown Completed [facility] Pneumococcal 7 Conjugate, PCV7 (Prevnar7) Unknown Completed [facility] Pneumococcal 7 Conjugate, PCV7 (Prevnar7) Unknown Completed [facility] Pneumococcal 7 Conjugate, PCV7 (Prevnar7) Unknown Completed [facility] MMR Unknown Completed [facility] MMR Unknown Completed [facility] Meningococcal Polysaccharide (groups A, C, Y and W-135) conjugate vaccine (MCV4P) Unknown Completed [facility] HIB 4 Dose Schedule Unknown Completed [facility] HIB 4 Dose Schedule Unknown Completed [facility] HIB 4 Dose Schedule Unknown Completed [facility] HIB 4 Dose Schedule Unknown Completed [facility] Hep B, Adol or Pedi Dosage Unknown Completed [facility] Hep B, Adol or Pedi Dosage Unknown Completed [facility] Hep B, Adol or Pedi Dosage Unknown Completed [facility] DTaP, Unspecified Formulation Unknown Completed [facility] DTaP, Unspecified Formulation Unknown Completed [facility] DTaP, Unspecified Formulation Unknown Completed [facility] DTaP, Unspecified Formulation Unknown Completed [facility] DTaP, Unspecified Formulation Unknown Completed [facility] DTaP, Unspecified Formulation Unknown Completed [facility] Vital Signs Vital Name Observation Time Observation Value Comments S ourdane Systolic blood pressure 2023-10-23 18:44:00 108 mm[Hg] [facility] Diastolic blood pressure 2023-10-23 18:44:00 74 mm[Hg] [facility] Heart rate 2023-10-23 18:44:00 86 /min [facility] Body temperature 2023-10-23 18:44:00 37 Shawna [facility] Respiratory rate 2023-10-23 18:44:00 18 /min [facility] Body height 2023-10-23 18:44:00 167.6 cm [facility] 2023-10-23 18:44:00 102.059 kg [facility] BMI 2023-10-23 18:44:00 36.32 kg/m2 [facility] Oxygen saturation in Arterial blood by Pulse oximetry 2023-10-23 18:44:00 98 /min [facility] Systolic blood pressure 2023-09-13 18:49:00 121 mm[Hg] [facility] Diastolic blood pressure 2023-09-13 18:49:00 70 mm[Hg] [facility] Heart rate 2023-09-13 18:49:00 63 /min [facility] Respiratory rate 2023-09-13 18:49:00 17 /min [facility] Body height 2023-09-13 18:49:00 167.6 cm [facility] Body weight 2023-09-13 18:49:00 102.74 kg [facility] BMI 2023-09-13 18:49:00 36.56 kg/m2 [facility] Oxygen saturation in Arterial blood by Pulse oximetry 2023-09-13 18:49:00 99 /min [facility] Systolic blood pressure 2023-09-10 17:41:00 110 mm[Hg] [facility] Diastolic blood pressure 2023-09-10 17:41:00 65 mm[Hg] [facility] Heart rate 2023-09-10 17:41:00 60 /min [facility] Body height 2023-09-10 17:41:00 167.6 cm [facility] Body weight 2023-09-10 17:41:00 103.42 kg [facility] BMI 2023-09-10 17:41:00 36.80 kg/m2 [facility] Oxygen saturation in Arterial blood by Pulse oximetry 2023-09-10 17:41:00 98 /min [facility] Systolic blood pressure 2023-08-29 14:27:00 100 mm[Hg] [facility] Diastolic blood pressure 2023-08-29 14:27:00 60 mm[Hg] [facility] Heart rate 2023-08-29 14:26:00 56 /min [facility] Body temperature 2023-08-29 14:26:00 36.78 Shawna [facility] Body height 2023-08-29 14:26:00 165.1 cm [facility] Body weight 2023-08-29 14:26:00 102.513 [facility] BMI 2023-08-29 14:26:00 37.61 kg/m2 [facility] Oxygen saturation in Arterial blood by Pulse oximetry 2023-08-29 14:26:00 98 /min [facility] Systolic blood pressure 2023-08-26 16:05:00 125 mm[Hg] [facility] Diastolic blood pressure 2023-08-26 16:05:00 85 mm[Hg] [facility] Heart rate 2023-08-26 16:05:00 79 /min [facility] Body temperature 2023-08-26 16:05:00 35.89 Shawna [facility] Respiratory rate 2023-08-26 16:05:00 18 /min [facility] Body height 2023-08-26 16:05:00 165.1 cm [facility] Body weight 2023-08-26 16:05:00 103.012 kg [facility] BMI 2023-08-26 16:05:00 37.79 kg/m2 [facility] Oxygen saturation in Arterial blood by Pulse oximetry 2023-08-26 16:05:00 99 /min [facility] Systolic blood pressure 2023-07-17 16:59:00 103 mm[Hg] [facility] Diastolic blood pressure 2023-07-17 16:59:00 75 mm[Hg] [facility] Heart rate 2023-07-17 16:59:00 68 /min [facility] Body temperature 2023-07-17 16:59:00 36.5 Shawna [facility] Respiratory rate 2023-07-17 16:59:00 18 /min [facility] Body height 2023-07-17 16:59:00 165.1 cm [facility] Body weight 2023-07-17 16:59:00 103.874 kg [facility] BMI 2023-07-17 16:59:00 38.11 kg/m2 [facility] Systolic blood pressure 2023-07-03 23:46:27 113 mm[Hg] [facility] Diastolic blood pressure 2023-07-03 23:46:27 98 mm[Hg] [facility] Heart rate 2023-07-03 23:46:27 65 /min [facility] 2023-07-03 23:46:27 16 /min [facility] Oxygen saturation in Arterial blood by Pulse oximetry 2023-07-03 23:46:27 99 /min [facility] Body temperature 2023-07-03 20:52:00 36.72 Shawna [facility] Body height 2023-07-03 20:52:00 167.6 cm [facility] Body weight 2023-07-03 20:52:00 99.791 kg [facility] BMI 2023-07-03 20:52:00 35.51 kg/m2 [facility] Systolic blood pressure 2023-06-14 05:24:00 132 mm[Hg] [facility] Diastolic blood pressure 2023-06-14 05:24:00 90 mm[Hg] [facility] Heart rate 2023-06-14 05:24:00 98 /min [facility] 2023-06-14 05:24:00 37 Shawna [facility] Respiratory rate 2023-06-14 05:24:00 16 /min [facility] Body height 2023-06-14 05:24:00 167.6 cm [facility] Body weight 2023-06-14 05:24:00 99.791 kg [facility] BMI 2023-06-14 05:24:00 35.51 kg/m2 [facility] Oxygen saturation in Arterial blood by Pulse oximetry 2023-06-14 05:24:00 100 /min [facility] Systolic blood pressure 2023-05-11 12:29:00 135 mm[Hg] [facility] Diastolic blood pressure 2023-05-11 12:29:00 96 mm[Hg] [facility] Heart rate 2023-05-11 12:29:00 77 /min [facility] Body temperature 2023-05-11 12:29:00 37.11 Shawna [facility] Respiratory rate 2023-05-11 12:29:00 18 /min [facility] Body height 2023-05-11 12:29:00 167.6 cm [facility] Body weight 2023-05-11 12:29:00 99.791 kg [facility] BMI 2023-05-11 12:29:00 35.51 kg/m2 [facility] Oxygen saturation in Arterial blood by Pulse oximetry 2023-05-11 12:29:00 100 /min [facility] Systolic blood pressure 2023-01-21 19:10:00 126 mm[Hg] [facility] Diastolic blood pressure 2023-01-21 19:10:00 84 mm[Hg] [facility] Heart rate 2023-01-21 19:10:00 83 /min [facility] Body height 2023-01-21 19:10:00 165.1 cm [facility] Body weight 2023-01-21 19:10:00 101.197 kg [facility] BMI 2023-01-21 19:10:00 37.13 kg/m2 [facility] Oxygen saturation in Arterial blood by Pulse oximetry 2023-01-21 19:10:00 98 /min [facility] Body temperature 2022-11-12 14:39:00 36.39 Shawna [facility] Body height 2022-11-12 14:39:00 165.1 cm [facility] Body weight 2022-11-12 14:39:00 107.412 [facility] BMI 2022-11-12 14:39:00 39.41 kg/m2 [facility] Body temperature 2022-08-23 18:23:00 36.39 Shawna [facility] Body height 2022-08-23 18:23:00 165.1 cm [facility] Body weight 2022-08-23 18:23:00 103.057 kg [facility] BMI 2022-08-23 18:23:00 37.81 kg/m2 [facility] Systolic blood pressure 2022-07-31 01:12:49 131 mm[Hg] [facility] Diastolic blood pressure 2022-07-31 01:12:49 93 mm[Hg] [facility] Heart rate 2022-07-31 01:10:00 86 /min [facility] Body temperature 2022-07-31 01:10:00 37.22 Shawna [facility] Respiratory rate 2022-07-31 01:10:00 18 /min [facility] Body height 2022-07-31 01:10:00 165.1 cm [facility] Body weight 2022-07-31 01:10:00 99.791 kg [facility] BMI 2022-07-31 01:10:00 36.61 kg/m2 [facility] Oxygen saturation in Arterial blood by Pulse oximetry 2022-07-31 01:10:00 100 /min [facility] Systolic blood pressure 2022-05-22 01:28:00 135 mm[Hg] [facility] Diastolic blood pressure 2022-05-22 01:28:00 78 mm[Hg] [facility] Heart rate 2022-05-22 01:28:00 97 /min [facility] Body temperature 2022-05-22 01:28:00 37 Shawna [facility] Respiratory rate 2022-05-22 01:28:00 20 /min [facility] Body height 2022-05-22 01:28:00 165.1 cm [facility] Body weight 2022-05-22 01:28:00 99.882 kg [facility] 2022-05-22 01:28:00 36.64 kg/m2 [facility] Oxygen saturation in Arterial blood by Pulse oximetry 2022-05-22 01:28:00 100 /min [facility] Systolic blood pressure 2022-03-30 12:38:00 119 mm[Hg] [facility] Diastolic blood pressure 2022-03-30 12:38:00 93 mm[Hg] [facility] Heart rate 2022-03-30 12:38:00 113 /min [facility] Body temperature 2022-03-30 12:38:00 38 Shawna [facility] Respiratory rate 2022-03-30 12:38:00 20 /min [facility] Body height 2022-03-30 12:38:00 165.1 cm [facility] Body weight 2022-03-30 12:38:00 94.802 kg [facility] BMI 2022-03-30 12:38:00 34.78 kg/m2 [facility] Oxygen saturation in Arterial blood by Pulse oximetry 2022-03-30 12:38:00 100 /min [facility] Systolic blood pressure 2022-03-28 16:09:00 101 mm[Hg] [facility] Diastolic blood pressure 2022-03-28 16:09:00 70 mm[Hg] [facility] Heart rate 2022-03-28 16:09:00 59 /min [facility] Body temperature 2022-03-28 16:09:00 36.56 Shawna [facility] Respiratory rate 2022-03-28 16:09:00 18 /min [facility] Body height 2022-03-28 16:09:00 165.1 cm [facility] Body weight 2022-03-28 16:09:00 94.802 kg [facility] BMI 2022-03-28 16:09:00 34.78 kg/m2 [facility] Systolic blood pressure 2022-03-08 15:50:00 117 mm[Hg] [facility] Diastolic blood pressure 2022-03-08 15:50:00 78 mm[Hg] [facility] Heart rate 2022-03-08 15:50:00 50 /min [facility] Body temperature 2022-03-08 15:50:00 36.83 Shawna [facility] Respiratory rate 2022-03-08 15:50:00 18 /min [facility] Body height 2022-03-08 15:50:00 165.1 cm [facility] Body weight 2022-03-08 15:50:00 97.886 kg [facility] BMI 2022-03-08 15:50:00 35.91 kg/m2 [facility] Systolic blood pressure 2022-02-28 18:45:00 124 mm[Hg] [facility] Diastolic blood pressure 2022-02-28 18:45:00 72 mm[Hg] [facility] Heart rate 2022-02-28 18:45:00 74 [facility] 2022-02-28 18:45:00 36.56 Shawna [facility] Respiratory rate 2022-02-28 18:45:00 18 /min [facility] Oxygen saturation in Arterial blood by Pulse oximetry 2022-02-28 18:45:00 99 /min [facility] Systolic blood pressure 2022-02-26 20:56:00 127 mm[Hg] [facility] Diastolic blood pressure 2022-02-26 20:56:00 85 mm[Hg] [facility] Heart rate 2022-02-26 20:56:00 101 /min [facility] Body temperature 2022-02-26 20:56:00 36.89 Shawna [facility] Respiratory rate 2022-02-26 20:56:00 18 /min [facility] Body height 2022-02-26 20:56:00 165.1 cm [facility] Body weight 2022-02-26 20:56:00 101.969 kg [facility] BMI 2022-02-26 20:56:00 37.41 kg/m2 [facility] Heart rate 2022-02-27 04:15:00 64 /min [facility] Oxygen saturation in Arterial blood by Pulse oximetry 2022-02-27 04:15:00 99 /min [facility] Systolic blood pressure 2022-02-27 03:45:00 106 mm[Hg] [facility] Diastolic blood pressure 2022-02-27 03:45:00 59 mm[Hg] [facility] Body temperature 2022-02-27 03:15:00 36.67 Shawna [facility] Respiratory rate 2022-02-27 03:15:00 18 /min [facility] Heart rate 2022-02-25 20:44:00 70 /min [facility] Oxygen saturation in Arterial blood by Pulse oximetry 2022-02-25 20:44:00 99 /min [facility] Systolic blood pressure 2022-02-25 19:45:00 110 mm[Hg] [facility] Diastolic blood pressure 2022-02-25 19:45:00 54 mm[Hg] [facility] Body temperature 2022-02-25 19:45:00 36.89 Shawna [facility] Respiratory rate 2022-02-25 19:45:00 18 /min [facility] Body height 2022-02-25 19:45:00 165.1 cm [facility] Body weight 2022-02-25 19:45:00 101.47 kg [facility] BMI 2022-02-25 19:45:00 37.23 kg/m2 [facility] Systolic blood pressure 2022-02-14 15:32:00 127 mm[Hg] [facility] Diastolic blood pressure 2022-02-14 15:32:00 83 mm[Hg] [facility] Heart rate 2022-02-14 15:32:00 85 /min [facility] Body temperature 2022-02-14 15:32:00 36.78 Shawna [facility] Respiratory rate 2022-02-14 15:32:00 18 /min [facility] Body height 2022-02-14 15:32:00 165.1 cm [facility] Body weight 2022-02-14 15:32:00 103.148 kg [facility] BMI 2022-02-14 15:32:00 37.84 kg/m2 [facility] Systolic blood pressure 2022-02-09 02:52:00 123 mm[Hg] [facility] Diastolic blood pressure 2022-02-09 02:52:00 84 mm[Hg] [facility] Heart rate 2022-02-09 02:52:00 78 /min [facility] Body temperature 2022-02-09 02:52:00 36.61 Shawna [facility] Respiratory rate 2022-02-09 02:52:00 16 /min [facility] Oxygen saturation in Arterial blood by Pulse oximetry 2022-02-09 02:52:00 100 /min [facility] Body weight 2022-02-08 19:38:00 101.878 kg [facility] BMI 2022-02-08 19:38:00 37.38 kg/m2 [facility] Systolic blood pressure 2022-02-07 17:39:00 124 mm[Hg] [facility] Diastolic blood pressure 2022-02-07 17:39:00 84 mm[Hg] [facility] Heart rate 2022-02-07 17:39:00 80 /min [facility] Body temperature 2022-02-07 17:39:00 36.11 Shawna [facility] Body height 2022-02-07 17:39:00 165.1 cm [facility] Body weight 2022-02-07 17:39:00 102.967 kg [facility] BMI 2022-02-07 17:39:00 37.77 kg/m2 [facility] Oxygen saturation in Arterial blood by Pulse oximetry 2022-02-07 17:39:00 97 /min [facility] Systolic blood pressure 2022-02-04 02:00:00 109 mm[Hg] [facility] Diastolic blood pressure 2022-02-04 02:00:00 61 mm[Hg] [facility] Heart rate 2022-02-04 02:00:00 112 /min [facility] Body temperature 2022-02-04 02:00:00 36.78 Shawna [facility] Respiratory rate 2022-02-04 02:00:00 16 /min [facility] Oxygen saturation in Arterial blood by Pulse oximetry 2022-02-04 02:00:00 99 /min [facility] Body height 2022-02-03 21:39:00 165.1 cm [facility] Body weight 2022-02-03 21:39:00 101.061 kg [facility] BMI 2022-02-03 21:39:00 37.08 kg/m2 [facility] Heart rate 2022-02-02 17:30:00 86 /min [facility] Oxygen saturation in Arterial blood by Pulse oximetry 2022-02-02 17:30:00 100 /min [facility] Systolic blood pressure 2022-02-02 16:46:00 91 mm[Hg] [facility] Diastolic blood pressure 2022-02-02 16:46:00 52 mm[Hg] [facility] Body temperature 2022-02-02 16:46:00 35.56 Shawna [facility] Respiratory rate 2022-02-02 16:46:00 18 /min [facility] Systolic blood pressure 2022-01-31 16:01:00 119 mm[Hg] [facility] Diastolic blood pressure 2022-01-31 16:01:00 85 mm[Hg] [facility] Heart rate 2022-01-31 16:01:00 87 /min [facility] Body temperature 2022-01-31 16:01:00 36.5 Shawna [facility] Respiratory rate 2022-01-31 16:01:00 18 /min [facility] Body height 2022-01-31 16:01:00 165.1 cm [facility] Body weight 2022-01-31 16:01:00 100.245 kg [facility] BMI 2022-01-31 16:01:00 36.78 kg/m2 [facility] Heart rate 2022-01-30 22:30:00 101 /min [facility] Oxygen saturation in Arterial blood by Pulse oximetry 2022-01-30 22:30:00 99 /min [facility] Systolic blood pressure 2022-01-30 22:00:00 129 mm[Hg] [facility] Diastolic blood pressure 2022-01-30 22:00:00 75 mm[Hg] [facility] Respiratory rate 2022-01-30 22:00:00 18 /min [facility] Body temperature 2022-01-30 19:09:00 36.72 Shawna [facility] Body height 2022-01-30 19:09:00 165.1 cm [facility] Body weight 2022-01-30 19:09:00 100.426 kg [facility] BMI 2022-01-30 19:09:00 36.84 kg/m2 [facility] Systolic blood pressure 2022-01-30 18:35:00 166 mm[Hg] [facility] Diastolic blood pressure 2022-01-30 18:35:00 93 mm[Hg] [facility] Heart rate 2022-01-30 18:34:00 88 /min [facility] Body temperature 2022-01-30 18:34:00 36.83 Shawna [facility] Respiratory rate 2022-01-30 18:34:00 16 /min [facility] Body height 2022-01-30 18:34:00 165.1 cm [facility] Body weight 2022-01-30 18:34:00 100.245 kg [facility] BMI 2022-01-30 18:34:00 36.78 kg/m2 [facility] Systolic blood pressure 2022-01-29 04:19:00 111 mm[Hg] [facility] Diastolic blood pressure 2022-01-29 04:19:00 63 mm[Hg] [facility] Heart rate 2022-01-29 04:19:00 85 /min [facility] Body temperature 2022-01-29 04:19:00 36.67 Shawna [facility] Respiratory rate 2022-01-29 04:19:00 16 /min [facility] Oxygen saturation in Arterial blood by Pulse oximetry 2022-01-29 04:19:00 100 /min [facility] Body height 2022-01-29 04:06:00 165.1 cm [facility] Body weight 2022-01-29 04:06:00 101.606 kg 224lb [facility] BMI 2022-01-29 04:06:00 37.28 kg/m2 [facility] Systolic blood pressure 2022-01-17 18:14:00 108 mm[Hg] [facility] Diastolic blood pressure 2022-01-17 18:14:00 71 mm[Hg] [facility] Heart rate 2022-01-17 18:14:00 92 /min [facility] Body temperature 2022-01-17 18:14:00 36.78 Shawna [facility] Body height 2022-01-17 18:14:00 165.1 cm [facility] Body weight 2022-01-17 18:14:00 101.969 kg [facility] BMI 2022-01-17 18:14:00 37.41 kg/m2 [facility] Systolic blood pressure 2021-12-20 13:58:00 105 mm[Hg] [facility] Diastolic blood pressure 2021-12-20 13:58:00 73 mm[Hg] [facility] Heart rate 2021-12-20 13:58:00 73 /min [facility] Body temperature 2021-12-20 13:58:00 36.5 Shawna [facility] Respiratory rate 2021-12-20 13:58:00 18 /min [facility] Body height 2021-12-20 13:58:00 165.1 cm [facility] Body weight 2021-12-20 13:58:00 99.701 kg [facility] BMI 2021-12-20 13:58:00 36.58 kg/m2 [facility] Systolic blood pressure 2021-11-22 15:58:00 110 mm[Hg] [facility] Diastolic blood pressure 2021-11-22 15:58:00 73 mm[Hg] [facility] Heart rate 2021-11-22 15:58:00 79 /min [facility] Body temperature 2021-11-22 15:58:00 37 Shawna [facility] Respiratory rate 2021-11-22 15:58:00 18 /min [facility] Body height 2021-11-22 15:58:00 165.1 cm [facility] Body weight 2021-11-22 15:58:00 99.338 kg [facility] BMI 2021-11-22 15:58:00 36.44 kg/m2 [facility] Systolic blood pressure 2021-10-24 19:20:00 108 mm[Hg] [facility] Diastolic blood pressure 2021-10-24 19:20:00 70 mm[Hg] [facility] Heart rate 2021-10-24 19:20:00 87 /min [facility] Body temperature 2021-10-24 19:20:00 37.17 Shawna [facility] Body height 2021-10-24 19:20:00 165.1 cm [facility] Body weight 2021-10-24 19:20:00 98[facility]431 [facility] BMI 2021-10-24 19:20:00 36.11 kg/m2 [facility] Systolic blood pressure 2021-09-26 18:06:00 99 mm[Hg] [facility] Diastolic blood pressure 2021-09-26 18:06:00 69 mm[Hg] [facility] Heart rate 2021-09-26 18:06:00 62 /min [facility] Body temperature 2021-09-26 18:06:00 36.78 Shawna [facility] Respiratory rate 2021-09-26 18:06:00 18 /min [facility] Body height 2021-09-26 18:06:00 165.1 cm [facility] Body weight 2021-09-26 18:06:00 97.07 kg [facility] BMI 2021-09-26 18:06:00 35.61 kg/m2 [facility] Systolic blood pressure 2021-08-29 20:40:00 120 mm[Hg] [facility] Diastolic blood pressure 2021-08-29 20:40:00 79 mm[Hg] [facility] Heart rate 2021-08-29 20:40:00 58 /min [facility] Body temperature 2021-08-29 20:40:00 36.78 Shawna [facility] Respiratory rate 2021-08-29 20:40:00 20 /min [facility] Body height 2021-08-29 20:40:00 165.1 cm [facility] Body weight 2021-08-29 20:40:00 99.61 kg [facility] BMI 2021-08-29 20:40:00 36.54 kg/m2 [facility] Systolic blood pressure 2021-08-01 18:12:00 98 mm[Hg] [facility] Diastolic blood pressure 2021-08-01 18:12:00 63 mm[Hg] [facility] Heart rate 2021-08-01 18:12:00 89 /min [facility] Body temperature 2021-08-01 18:12:00 36.94 Shawna [facility] Respiratory rate 2021-08-01 18:12:00 18 /min [facility] Body height 2021-08-01 18:12:00 165.1 cm [facility] Body weight 2021-08-01 18:12:00 100.245 kg [facility] BMI 2021-08-01 18:12:00 36.78 kg/m2 [facility] Systolic blood pressure 2021-07-19 19:40:00 112 mm[Hg] [facility] Diastolic blood pressure 2021-07-19 19:40:00 77 mm[Hg] [facility] Heart rate 2021-07-19 19:40:00 76 /min [facility] Body temperature 2021-07-19 19:40:00 36.94 Shawna [facility] Body height 2021-07-19 19:40:00 167.6 cm [facility] Body weight 2021-07-19 19:40:00 100.336 kg [facility] BMI 2021-07-19 19:40:00 35.70 kg/m2 [facility] Systolic blood pressure 2021-01-15 12:54:00 125 mm[Hg] [facility] Diastolic blood pressure 2021-01-15 12:54:00 74 mm[Hg] [facility] Heart rate 2021-01-15 12:54:00 68 /min [facility] Body temperature 2021-01-15 12:54:00 36.11 Shawna [facility] Respiratory rate 2021-01-15 12:54:00 18 /min [facility] Oxygen saturation in Arterial blood by Pulse oximetry 2021-01-15 12:54:00 98 /min [facility] Body weight 2021-01-14 09:00:00 96.616 kg [facility] BMI 2021-01-14 09:00:00 35.45 kg/m2 [facility] Systolic blood pressure 2021-01-12 20:03:00 120 mm[Hg] [facility] Diastolic blood pressure 2021-01-12 20:03:00 86 mm[Hg] [facility] Heart rate 2021-01-12 20:03:00 80 /min [facility] Body temperature 2021-01-12 20:03:00 36.89 Shawna [facility] Respiratory rate 2021-01-12 20:03:00 16 /min [facility] Body height 2021-01-12 20:03:00 165.1 cm [facility] Body weight 2021-01-12 20:03:00 96.752 kg [facility] BMI 2021-01-12 20:03:00 35.49 kg/m2 [facility] Systolic blood pressure 2021-01-15 12:54:00 125 mm[Hg] [facility] Diastolic blood pressure 2021-01-15 12:54:00 74 mm[Hg] [facility] Heart rate 2021-01-15 12:54:00 68 /min [facility] Body temperature 2021-01-15 12:54:00 36.11 Shawna [facility] Respiratory rate 2021-01-15 12:54:00 18 /min [facility] Oxygen saturation in Arterial blood by Pulse oximetry 2021-01-15 12:54:00 98 /min [facility] Body weight 2021-01-14 09:00:00 96.616 kg [facility] BMI 2021-01-14 09:00:00 35.45 kg/m2 [facility] Body height 2021-01-12 20:03:00 165.1 cm [facility] Procedures Procedure Date / Time Performed Performing Clinician Source TRANSTHORACIC ECHO (TTE) COMPLETE 2023-09-04 16:53:00 Sonja Eastman [facility] POCT URINALYSIS W/O SPECIFIC GRAVITY 2023-07-17 00:00:00 Abhinav Huang [facility] CT HEAD WO CONTRAST 2023-07-03 22:16:00 Bernadette Laguna [facility] ASSIGNMENT OF BENEFITS 2023-07-03 21:46:56 Docto r Unassigned, [place] [facility] POCT GLUCOSE (AUTOMATED) 2023-07-03 21:22:00 Jw Laguna [facility] POCT TEST 2023-07-03 21:18:00 Bernadette Laguna [facility] MAGNESIUM 2023-07-03 21:17:00 Saida [facility] COMP. METABOLIC PANEL ([id number]) 2023-07-03 21:17:00 Saida Laguna [facility] CBC WITH DIFF 2023-07-03 21:17:00 Saida Laguna [facility] URINALYSIS 2023-07-03 21:17:[address] [facility] URINE DRUG (IMMUNOASSAY) - COMPREHENSIVE DRUG SCREEN W/O REFLEX 2023-07-03 21:17:00 Saida Laguna [facility] CONSENT/REFUSAL FOR DIAGNOSIS AND TREATMENT 2023-07-03 20:46:48 Doctor Unassigned, [place] [facility] ASSIGNMENT OF BENEFITS 2023-06-14 05:46:57 Docto r Unassigned, [place] [facility] NOTICE OF PRIVACY PRACTICES 2023-06-14 05:19:53 Doctor Unassigned, [place] [facility] CONSENT/REFUSAL FOR DIAGNOSIS AND TREATMENT 2023-06-14 05:19:16 Doctor Unassigned, [place] [facility] POCT TEST 2023-05-11 12:48:00 Nicole Sloan [facility] URINALYSIS 2023-05-11 12:44:00 Abdirashid Sloan [facility] LIPASE 2023-05-11 12:34:00 Singer [facility] COMP. METABOLIC PANEL ([id number]) 2023-05-11 12:34:00 Abdirashid Sloan [facility] CBC WITH DIFF 2023-05-11 12:34:00 Singer [facility] CONSENT/REFUSAL FOR DIAGNOSIS AND TREATMENT 2023-05-11 12:19:52 Doctor Unassigned, [place] [facility] CONSENT/REFUSAL FOR DIAGNOSIS AND TREATMENT 2022-10-29 13:15:54 Doctor Unassigned, [place] [facility] POCT TEST 2022-07-31 03:16:00 Magalys Lacey [facility] MAGNESIUM 2022-07-31 03:10:00 Magalys [facility] COMP. METABOLIC PANEL ([id number]) 2022-07-31 03:10:00 Magalys Lacey [facility] CBC WITH DIFF 2022-07-31 03:10:00 Magalys Lacey [facility] URINALYSIS 2022-07-31 03:10:00 Magalys [facility] NOTICE OF PRIVACY PRACTICES 2022-07-31 00:59:00 Doctor Unassigned, [place] [facility] CONSENT/REFUSAL FOR DIAGNOSIS AND TREATMENT 2022-07-31 00:58:05 Doctor Unassigned, [place] [facility] RAPID STREP SCREEN FOR GROUP A 2022-05-22 01:35:00 Tracy Wheeler [facility] CONSENT/REFUSAL FOR DIAGNOSIS AND TREATMENT 2022-05-22 01:15:31 Doctor Unassigned, [place] [facility] RAPID STREP SCREEN FOR GROUP A 2022-03-30 13:29:00 Kiran Scales [facility] RAPID INFLUENZA A/B 2022-03-30 13:29:00 Kiran Scales [facility] COVID-19 (ID NOW RAPID TESTING) 2022-03-30 13:29:00 Kiran Scales [facility] CONSENT/REFUSAL FOR DIAGNOSIS AND TREATMENT 2022-03-30 12:31:52 Doctor Unassigned, [place] [facility] POCT TEST 2022-03-28 00:00:00 Elliot Gould [facility] PREPARE PACKED RBC 2022-03-01 01:11:43 Elliot Gould [facility] CBC WITH DIFF 2022-02-27 10:28:[address] [facility] CBC WITH DIFF 2022-02-27 10:28:[address] [facility] PREPARE PACKED RBC 2022-02-27 01:40:[address] [facility] CBC WITH DIFF 2022-02-26 23:01:[address] [facility] HEPATITIS B SURFACE ANTIGEN 2022-02-26 23:01:00 Elliot Gould [facility] ADC OR TIFFANI ONLY - RPR 2022-02-26 23:01:00 Gregory Gould [facility] CBC WITH DIFF 2022-02-26 23:01:[address] [facility] HEPATITIS B SURFACE ANTIGEN 2022-02-26 23:01:00 Elliot Gould [facility] ADC OR TIFFANI ONLY - RPR 2022-02-26 23:01:00 Gregory Gould [facility] HB ABO GROUPING 2022-02-26 23:00:00 Elliot [facility] RHO (D) IMMUNE GLOBULIN 2022-02-26 23:00:00 Elliot Gould [facility] HB ABO GROUPING 2022-02-26 23:00:00 Elliot Gould [facility] RHO (D) IMMUNE GLOBULIN 2022-02-26 23:00:00 Elliot Gould [facility] ASSIGNMENT OF BENEFITS 2022-02-26 21:46:08 Docto r Unassigned, [place] [facility] DSU PRE-OP 2022-02-26 06:01:00 Doctor Unass igned, [place] [facility] DSU PRE-OP 2022-02-26 06:01:00 Doctor Unass igned, [place] [facility] POCT URINALYSIS W/O SPECIFIC GRAVITY 2022-02-26 00:00:00 Elliot Gould [facility] URINALYSIS 2022-02-25 20:15:[address] [facility] CONSENT/REFUSAL FOR DIAGNOSIS AND TREATMENT 2022-02-25 19:07:24 Doctor Unassigned, [place] [facility] ASSIGNMENT OF BENEFITS 2022-02-25 19:06:09 Docto r Unassigned, [place] [facility] POCT URINALYSIS W/O SPECIFIC GRAVITY 2022-02-14 15:42:00 Elliot Gould [facility] CONSENT/REFUSAL FOR DIAGNOSIS AND TREATMENT 2022-02-09 05:01:00 Doctor Unassigned, [place] [facility] AMYLASE 2022-02-08 22:31:00 Elliot Gould [facility] LIPASE 2022-02-08 22:31:00 Gould [facility] COMP. METABOLIC PANEL ([id number]) 2022-02-08 22:31[facility]00 [facility]FF 2022-02-08 22:31:[address] [facility] ASSIGNMENT OF BENEFITS 2022-02-08 19:31:04 Docto r Unassigned, [place] [facility] CONSENT/REFUSAL FOR DIAGNOSIS AND TREATMENT 2022-02-08 19:30:26 Doctor Unassigned, [place] [facility] POCT GLUCOSE (AUTOMATED) 2022-02-03 21:46:00 Elliot Gould [facility] CONSENT/REFUSAL FOR DIAGNOSIS AND TREATMENT 2022-02-03 21:09:38 Doctor Unassigned, [place] [facility] HB ABO GROUPING 2022-02-02 07:25:00 Ly, [facility] LACTATE DEHYDROGENASE 2022-02-02 04:42:00 Ly, [facility] URIC ACID 2022-02-02 04:42:00 Ly, [facility] COMP. METABOLIC PANEL ([id number]) 2022-02-02 04:42:00 Monae Knowles [facility] CBC WITH DIFF 2022-02-02 04:42:00 Ly, [facility] URINALYSIS 2022-02-02 04:42:00 Ly, [facility] HEPATITIS B SURFACE ANTIGEN 2022-02-02 04:42:00 Ly, [facility] PROTEIN CREAT RATIO URINE RANDOM 2022-02-02 04:42:00 Ly, [facility] HIV 1/2 AG-AB WITH REFLEX 2022-02-02 04:42:00 Ly, [facility] GALV ONLY - SYPHILIS IGG/IGM 2022-02-02 04:42:00 Ly, [facility] HOSPITAL ADMISSION 2022-02-01 05:01:00 Doctor Un assigned, [place] [facility] POCT URINALYSIS W/O SPECIFIC GRAVITY 2022-01-31 00:00:00 Shari Diamond [facility] ASSIGNMENT OF BENEFITS 2022-01-30 18:48:53 Tyson mendoza Unassigned, [place] [facility] NOTICE OF PRIVACY PRACTICES 2022-01-29 03:52:27 Doctor Unassigned, [place] [facility] ASSIGNMENT OF BENEFITS 2022-01-29 03:49:18 Tyson r Unassigned, [place] [facility] URINALYSIS 2022-01-17 18:50:00 Elliot Gould [facility] TDAP VACCINE, >11 YRS, IM 2022-01-17 18:16:09 Bryanna Gregory quispe [facility] FLU VACC (), 6 MO-64 YRS, .5ML, IM, QUAD (FLUCELVAX) 2022-01-17 18:16:09 Elliot Gould [facility] POCT URINALYSIS W/O SPECIFIC GRAVITY 2022-01-17 00:00:00 Elliot Gould [facility] POCT URINALYSIS W/O SPECIFIC GRAVITY 2021-12-20 14:00:00 [facility] SECOND AND THIRD TRIMESTER ULTRASOUND 2021-12-15 14:11:00 Elliot Gould [facility] POCT URINALYSIS W/O SPECIFIC GRAVITY 2021-11-22 00:00:00 Elliot Gould [facility] CONSENT/REFUSAL FOR DIAGNOSIS AND TREATMENT 2021-10-24 19:11:23 Doctor Unassigned, [place] [facility] ASSIGNMENT OF BENEFITS 2021-10-24 19:10:45 Docto r Unassigned, [place] [facility] POCT URINALYSIS W/O SPECIFIC GRAVITY 2021-10-24 00:00:00 Lobo Shari [facility] SCANNED LAB RESULTS 2021-09-26 05:01:00 Doctor U ryannsiluz marina, [place] [facility] POCT URINALYSIS W/O SPECIFIC GRAVITY 2021-09-26 00:00:00 Elliot Gould [facility] POCT URINALYSIS W/O SPECIFIC GRAVITY 2021-08-29 20:41:00 Lobo Shari [facility] POCT URINALYSIS W/O SPECIFIC GRAVITY 2021-08-01 00:00:00 Elliot Gould [facility] FIRST TRIMESTER LESS THAN 14 WEEKS WITH TRANSVAGINAL 2021-07-31 19:50:00 Elliot Gould [facility] US OB TRANSVAGINAL 2021-07-19 20:49:29 Elliot Gould [facility] ASSIGNMENT OF BENEFITS 2021-07-19 20:24:08 Docto r Unassigned, [place] [facility] FLU VACC ([id number]), 2-64 YRS, .5ML, IM, QUAD (FLUCELVAX) 2021-07-19 19:47:42 Elliot Gould [facility] POCT TEST 2021-07-19 00:00[facility]00 [facility]IN[facility] W/O SPECIFIC GRAVITY 2021-07-19 00:00:00 Elliot Gould [facility] CT ANGIOGRAM HEAD 2021-01-15 15:55:38 Nohemy Leung [facility] CT ANGIOGRAM HEAD 2021-01-15 15:55:38 Nohemy Leung [facility] MR BRAIN W WO CONTRAST 2021-01-15 01:57:00 Garry Ingramga [facility] MR BRAIN W WO CONTRAST 2021-01-15 01:57:00 Garry Cox [facility] BASIC METABOLIC PANEL (NA, K, CL, CO2, GLUCOSE, BUN, CREATININE, CA) 2021-01-14 09:29:00 [facility] 2021-01-14 09:29:00 Juan Smyth [facility] MAGNESIUM 2021-01-14 09:29:00 Juan Smyth [facility] BASIC METABOLIC PANEL (NA, K, CL, CO2, GLUCOSE, BUN, CREATININE, CA) 2021-01-14 09:29:00 Juan Smyth [facility] CBC WITH DIFF 2021-01-14 09:25:[address] [facility] CBC WITH DIFF 2021-01-14 09:25:[address] [facility] IR SPINAL LUMBAR PUNCTURE DIAGNOSTIC 2021-01-13 21:32:50 [facility] SPINAL LUMBAR PUNCTURE DIAGNOSTIC 2021-01-13 21:32:50 [facility] BODY FLUID MANUAL DIFF 2021-01-13 21:00:00 Nicolas Smyth [facility] CEREBROSPINAL FLUID GLUCOSE 2021-01-13 21:00:00 Juan Smyth [facility] CEREBROSPINAL FLUID PROTEIN 2021-01-13 21:00:00 Juan Smyth [facility] CSF CULTURE 2021-01-13 21:00:00 Alejandra [facility] EXTRA TUBE CSF 2021-01-13 21:00:00 Juan S[facility]th [facility] CEREBROSPINAL FLUID PROTEIN 2021-01-13 21:00:00 Juan Smyth [facility] CEREBROSPINAL FLUID GLUCOSE 2021-01-13 21:00:00 Juan Smyth [facility] BODY FLUID DIRECT COUNT 2021-01-13 21:00:00 Frantz Smyth [facility] EXTRA TUBE CSF 2021-01-13 21:00:00 Juan Smyth [facility] CSF CULTURE 2021-01-13 21:00:00 Alejandra Emanuel [facility] PROTHROMBIN TIME / INR 2021-01-13 18:57:00 Nicolas Smyth [facility] PROTHROMBIN TIME / INR 2021-01-13 18:57:00 Nicolas Smyth [facility] PROTHROMBIN TIME / INR 2021-01-13 09:30:00 Silvana Guzman [facility] ACTIVATED PARTIAL THRMPLAS WILLIAM 2021-01-13 09:30:[address] [facility] PROTHROMBIN TIME / INR 2021-01-13 09:30:00 Silvana Guzman [facility] ACTIVATED PARTIAL THRMPLAS WILLIAM 2021-01-13 09:30:[address] [facility] CBC WITH DIFF 2021-01-13 04:33:00 Petre Garcia [facility] COMP. METABOLIC PANEL ([id number]) 2021-01-13 04:33:00 Peter Garcia [facility] MAGNESIUM 2021-01-13 04:33:00 Abel Guzman [facility] TROPONIN I 2021-01-13 04:33:[address] [facility] MAGNESIUM 2021-01-13 04:33:[facility] TROPONIN [facility] 2021-01-13 04:33:00 [facility] COMP. METABOLIC PANEL ([id number]) 2021-01-13 04:33:00 Peter Garcia [facility] CBC WITH DIFF 2021-01-13 04:33:00 Peter Garcia [facility] COVID-19 (ID NOW RAPID TESTING) 2021-01-13 03:33:00 Kayla Goodson [facility] COVID-19 (ID NOW RAPID TESTING) 2021-01-13 03:33:00 Kayla Goodson [facility] LAB ONLY COVID INTERPRETATION 2021-01-13 03:33:00 Kayla Goodson [facility] CONSENT/REFUSAL FOR DIAGNOSIS AND TREATMENT 2021-01-13 01:53:28 Doctor Unassigned, [place] [facility] CONSENT/REFUSAL FOR DIAGNOSIS AND TREATMENT 2021-01-13 01:53:28 Doctor Unassigned, [place] [facility] POCT TEST 2020-12-29 07:22:00 Coleen Miller [facility] NOTICE OF PRIVACY PRACTICES 2020-12-29 07:04:36 Doctor Unassigned, [place] [facility] CONSENT/REFUSAL FOR DIAGNOSIS AND TREATMENT 2020-12-29 07:04:21 Doctor Unassigned, [place] [facility] POCT TEST 2020-11-22 05:08:00 Amara Romeo ra [facility] CBC WITH DIFF 2020-11-22 04:55:00 Melissa Romeo [facility] BASIC METABOLIC PANEL (NA, K, CL, CO2, GLUCOSE, BUN, CREATININE, CA) 2020-11-22 04:55:00 Melissa Romeo [facility] NOTICE OF PRIVACY PRACTICES 2020-11-22 04:19:31 Doctor Unassigned, [place] [facility] CONSENT/REFUSAL FOR DIAGNOSIS AND TREATMENT 2020-11-22 04:17:24 Doctor Unassigned, [place] [facility] EMERGENCY SERVICES AGREEMENTS AND AUTHORIZATIONS 2020-11-21 05:01:00 Doctor Unassigned, [place] [facility] GC & CHLAMYDIA AMPLIFIED ASSAY 2020-11-07 18:21:00 Lobo Shari [facility] GALV ONLY - VAGINAL PATHOGENS BY NUCLEIC ACID TESTING 2020-11-07 18:21:00 Shari Diamond [facility] CT ANGIOGRAM HEAD 2020-10-27 07:36:57 Nkechi Olivares U [facility] CT ANGIOGRAM NECK 2020-10-27 07:36:57 Nkechi Olivares U [facility] CT HEAD WO CONTRAST 2020-10-27 07:33:49 Nkechi Olivares [facility] CBC WITH DIFF 2020-10-27 07:04:00 Nkechi Olivares [facility] BASIC METABOLIC PANEL (NA, K, CL, CO2, GLUCOSE, BUN, CREATININE, CA) 2020-10-27 07:04:00 Nkechi Olivares [facility] CONSENT/REFUSAL FOR DIAGNOSIS AND TREATMENT 2020-10-27 06:17:09 Doctor Unassigned, [place] [facility] EMERGENCY SERVICES AGREEMENTS AND AUTHORIZATIONS 2020-10-27 05:01:00 Doctor Unassigned, [place] [facility] POCT TEST 2020-10-25 23:55:00 Nkechi Olivares [facility] URINALYSIS 2020-10-25 23:48:[address] [facility] NOTICE OF PRIVACY PRACTICES 2020-10-25 22:10:05 Doctor Unassigned, [place] [facility] CONSENT/REFUSAL FOR DIAGNOSIS AND TREATMENT 2020-10-25 22:09:41 Doctor Unassigned, [place] [facility] EMERGENCY SERVICES AGREEMENTS AND AUTHORIZATIONS 2020-10-25 05:01:00 Doctor Unassigned, [place] [facility] SECTION Elliot Gould [facility] SECTION Elliot Gould [facility] Encounters Start Date/Time End Date/Time Encounter Type Admission Type [facility]ending [facility] Care Department Encounter ID Source 2022-11-20 09:52:09 Outpatient SAMMY JI [id number] [id number] [place] [facility] 2022-02-02 14:13:49 Outpatient X [facility] [id number] [facility] 2021-02-21 01:01:49 Emergency [facility] [id number] [facility] 2021-02-20 21:22:40 Emergency [facility] [id number] [facility] 2021-02-20 12:36:56 Emergency [facility] [id number] [facility] 2021-02-20 06:43:59 Emergency [facility] [id number] [facility] 2021-02-20 06:24:27 Emergency [facility] [id number] [facility] 2021-02-16 20:10:04 Outpatient P [facility] [id number] [facility] 2021-02-16 17:53:58 Outpatient P [facility] [id number] [facility] 2021-02-16 16:15:54 Outpatient P [facility] [id number] [facility] 2023-11-28 20:02:00 2023-11-29 01:59:00 Emergency EM Gabriele [place] HCACL VLADISLAV [id number] [facility] 2023-11-12 13:00:00 2023-11-12 13:00:00 Outpatient R ALLIE ROY [facility] [id number] [facility] 2023-10-23 14:30:00 2023-10-23 14:30:00 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 Visit Lab, Ifeanyi - Anna Pickard [facility] MED[facility] OFF[facility] BU[facility] 1.2.840.114 350.1.13.10 4.2.7.2.686 [id number] [facility] 2023-10-23 14:00:00 2023-10-23 14:24:11 Outpatient ANNA GARRISON [facility] [id number] [facility] 2023-10-23 14:00:00 2023-10-23 14:24:11 Office Visit Anna Hearn [facility] 1..840.114 350.1.13.10 4.2.7.2.686 [id number] [id number] [facility] 2023-09-05 00:00:00 2023-10-12 18:24:26 Patient Secure Msg Doctor Unassigned, Gamerco [facility] 1.840.114 350.1.13.10 4.2.7.2.686 [id number] [facility] 2023-10-07 09:00:00 2023-10-07 09:00:00 Outpatient SHEILA FOLEY [facility] [id number] [facility] 2023-10-04 00:00:00 2023-10-04 00:00:00 Outpatient ALVERTO TEJADA [facility] [id number] [facility] 2023-10-02 13:00:00 2023-10-02 13:00:00 Outpatient R ANNA HEARN [facility] [id number] [facility] 2023-08-28 00:00:00 2023-09-28 18:21:55 Patient Secure Msg Doctor Unassigned, Gamerco [facility] 1..840.114 350.1.13.10 4.2.7.2.686 [id number] [facility] 2023-09-27 00:00:00 2023-09-27 00:00:00 Outpatient ALVERTO TEJADA [facility] [id number] [facility] 2023-09-20 08:00:00 2023-09-20 08:00:00 Outpatient SONJA PHELAN [facility] [id number] [facility] 2023-09-19 13:30:00 2023-09-19 13:30:00 Outpatient R SONJA EASTMAN [facility] [id number] [facility] 2023-09-17 09:00:00 2023-09-17 09:00:00 Outpatient R ABHINAV HUANG [facility] [id number] [facility] 2023-09-13 14:00:00 2023-09-13 14:11:05 Outpatient R SD [facility] [id number] [facility] 2023-09-13 14:00:00 2023-09-13 14:11:05 [facility] 1.2.840.114 350.1.13.10 4.2.7.2.686 [id number] [facility] 2023-09-10 13:45:00 2023-09-10 14:00:00 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 Visit Lab, Anna Luna [facility]?MELLISSAGerard [facility] MEDICAL OFFICE BUILDING 1.2840.114 350.1.13.10 4.2.7.2.686 [id number] [facility] 2023-09-10 12:30:00 2023-09-10 12:55:44 Outpatient R ANNA HEARN [facility] [id number] [facility] 2023-09-10 12:30:00 2023-09-10 12:55:44 Office Visit Anna Hearn [facility]?MELLISSAGerard [facility] MEDICAL OFFICE BUILDING 1.2840.114 350.1.13.10 4.2.7.2.686 [id number] [id number] [facility] 2023-09-05 00:00:00 2023-09-09 11:18:19 Telephone Anna Hearn [facility] MEDICAL OFFICE BU[facility] 1.2840.114 350.1.13.10 4.2.7.2.686 [id number] [facility] 2023-09-04 11:10:47 2023-09-04 23:59:00 Outpatient R RAIZA SONJA [facility] [id number] [facility] 2023-09-04 11:10:47 2023-09-04 23:59:00 Hospital Encounter Sonja Eastman [facility] 1.2.840.114 350.1.13.10 4.2.7.2.686 [id number] [facility] 2023-08-29 10:45:00 2023-08-29 11:00:00 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 Visit Lab, Anna Luna [facility] MED[facility] OFFICE BUILD[facility] 1.2.840.114 350.1.13.10 4.2.7.2.686 [id number] [facility] 2023-08-29 10:00:00 2023-08-29 10:10:47 Outpatient R ANNA HEARN [facility] [id number] [facility] 2023-08-29 10:00:00 2023-08-29 10:10:47 Office Visit Anna Hearn [facility] MEDICAL OFFICE BUILD[facility] 1.2.840.114 350.1.13.10 4.2.7.2.686 [id number] [facility] 2023-08-28 08:00:00 2023-08-28 08:00:00 Outpatient R ANNA HEARN [facility] [id number] [facility] 2023-08-26 11:30:00 2023-08-26 11:45:38 Outpatient R SONJA EASTMAN [facility] [id number] [facility] 2023-08-26 11:30:00 2023-08-26 11:45:38 Office Visit Sonja Eastman [facility] 1..840.114 350.1.13.10 4.2.7.2.686 [id number] [facility] 2023-07-31 12:16:00 2023-07-31 23:22:00 Outpatient SAMMY BURK [id number] [facility] [id number] [place] [facility] 2023-07-19 00:00:00 2023-07-19 00:00:00 Refill Abhinav Huang [facility] 1..840.114 350.1.13.10 4.2.7.2.686 [id number] [facility] 2023-07-19 00:00:00 2023-07-19 00:00:00 Patient Secure Msg Doctor Unassigned, Gamerco [facility] 1..840.114 350.1.13.10 4.2.7.2.686 [id number] 134 [id number] [facility] 2023-07-17 12:30:00 2023-07-17 12:30:00 Office Visit Abhinav Huang [facility] 1..840.114 350.1.13.10 4.2.7.2.686 [id number] [facility] 2023-07-17 12:30:00 2023-07-17 12:22:54 Outpatient R ABHINAV HUANG [facility] [id number] [facility] 2023-07-17 09:30:00 2023-07-17 09:30:00 Outpatient R [facility] [id number] [facility] 2023-07-11 10:30:00 2023-07-11 10:30:00 Outpatient R ABHINAV HUANG [facility] [id number] [facility] 2023-07-04 00:00:2023-07-04 00:00:00 Patient Secure Msg Doctor Unassigned, Gamerco [facility] 1.2.840.114 350.1.13.10 4.2.7.2.686 [id number] [facility] 2023-07-03 15:54:00 2023-07-03 18:47:00 [id number] 2023-07-03 15:54:00 2023-07-03 18:47:00 Emergency Saida Laguna [facility] 1.2.840.114 350.1.13.10 4.2.7.2.686 [id number] [facility] 2023-06-13 23:30:00 2023-06-14 00:10:00 Emergency X MIKA, CARMELA MIKA, [facility] ERT [id number] [facility] 2023-06-13 23:30:00 2023-06-14 00:10:00 Emergency Anderson, [facility] 1.2.840.114 350.1.13.10 4.2.7.2.686 [id number] [id number] [facility] 2023-06-13 00:00:00 2023-06-13 00:00:00 Orders Only Doctor Unassigned, Gamerco [facility] 1.2840.114 350.1.13.10 4.2.7.2.686 [id number] [facility] 2023-05-15 00:00:00 2023-05-15 00:00:00 Patient Secure Msg Doctor Unassigned, [employer]amerco [facility] 1.2.840.114 350.1.13.10 4.2.7.2.686 [id number] [facility] 2023-05-13 00:00:00 2023-05-13 00:00:00 Letter (Out) Clinic, [facility] 1.2.840.114 350.1.13.10 4.2.7.2.686 [id number] [id number] [facility] 2023-05-11 06:26:00 2023-05-11 08:31:00 Emergency CAITY JONES [facility] ERT [id number] [facility] 2023-05-11 06:26:00 2023-05-11 08:31:00 Emergency Abdirashid Sloan Caity [facility] 1.2.840.114 350.1.13.10 4.2.7.2.686 [id number] [facility] 2023-04-27 00:00:00 2023-04-27 00:00:00 Alverto Foster [facility] MED[facility] OFFICE BUILD[facility] 1..840.114 350.1.13.10 4.2.7.2.686 [id number] [facility] 2023-04-03 14:00:00 2023-04-03 14:00:00 Outpatient ALVERTO TEJADA [facility] [id number] [facility] 2023-03-04 00:00:00 2023-03-04 00:00:00 Case Management Annelise Brown 1.2.840.114 350.1.13.10 4.2.7.2.686 [id number] [facility] 2023-02-14 09:15:00 2023-02-14 09:15:00 Outpatient COSME BOYER [facility] [id number] [facility] 2023-02-01 09:51:00 2023-02-01 14:57:00 Outpatient CYRUS GARCIA [id number] N [place] NO SHOW/CANCEL LED [id number] [facility] 2023-01-25 10:52:00 2023-01-25 14:21:00 Outpatient CYRUS GARCIA [id number] N [place] NO SHOW/CANCEL LED [id number] [facility] 2023-01-21 15:00:00 2023-01-21 15:20:00 Office Visit Alverto Olivares Adalberto [facility] OFF[facility] BUILDING 1..840.114 350.1.13.10 4.2.7.2.686 [id number] [facility] 2023-01-21 15:00:00 2023-01-21 15:00:00 Outpatient R ALVERTO OLIVARES [facility] [id number] [facility] 2022-12-26 09:30:00 2022-12-26 09:30:00 Outpatient R GLORIA JONES CRAIG [facility] [id number] [facility] 2022-12-14 09:19:00 2022-12-14 13:26:00 Outpatient M SAMMY JI [id number] [facility] [id number] [facility] 2022-12-12 13:00:00 2022-12-12 13:00:00 Outpatient R [facility] [id number] [facility] 2022-11-20 10:20:00 2022-11-20 17:52:00 Outpatient SAMMY JI [id number] [facility] [id number] [facility] 2022-11-12 10:00:00 2022-11-12 10:15:00 Office Visit Cosme Brennan [facility] 1..840.114 350.1.13.10 4.2.7.2.686 [id number] [facility] 2022-11-12 10:00:00 2022-11-12 10:00:00 Outpatient R COSME BRENNAN [facility] [id number] [facility] 2022-10-29 13:00:00 2022-10-29 15:00:00 Ancillary Visit Anna Dejesus Lisa Mar [facility] 1.2.840.114 350.1.13.10 4.2.7.2.686 [id number] [facility] 2022-10-29 13:00:00 2022-10-29 13:00:00 Outpatient LISA ROSALES [facility] [id number] [facility] 2022-10-29 08:15:00 2022-10-29 09:00:00 Ancillary Visit 1, [employer] Garcia, Lisa Manuel [facility] 1.2.840.114 350.1.13.10 4.2.7.2.686 [id number] [facility] 2022-10-29 00:00:00 2022-10-29 00:00:00 Orders Only Doctor Unassigned, Gamerco [facility] 1.2.840.114 350.1.13.10 4.2.7.2.686 [id number] [facility] 2022-10-18 09:30:00 2022-10-18 09:30:00 Outpatient ELLIOT MOJICA [facility] [id number] [facility] 2022-08-23 13:30:00 2022-08-23 13:45:00 Office Visit Cosme Brennan [facility] 1.2.840.114 350.1.13.10 4.2.7.2.686 [id number] [facility] 2022-08-23 13:30:00 2022-08-23 13:30:00 Outpatient COSME BOYER [facility] [id number] [facility] 2022-08-09 10:00:00 2022-08-09 10:00:00 Outpatient COSME BOYER [facility] [id number] [facility] 2022-08-01 13:20:00 2022-08-01 13:20:00 Outpatient R TERRENCE ALVERTO [facility] [id number] [facility] 2022-07-30 20:13:00 2022-07-31 00:14:00 Emergency X MAGALYS LACEY [facility] ERT [id number] [facility] 2022-07-30 20:13:00 2022-07-31 00:14:00 Emergency Magalys Lacey [facility] 1.2.840.114 350.1.13.10 4.2.7.2.686 [id number] [facility] 2022-06-08 09:30:00 2022-06-08 09:30:00 Outpatient ELLIOT MOJICA [facility] [id number] [facility] 2022-05-21 19:31:00 2022-05-21 20:58:00 Emergency X TRACY WHEELER [facility] ERT [id number] [facility] 2022-05-21 19:31:00 2022-05-21 20:58:00 Emergency Tracy Wheeler [facility] 1.2.840.114 350.1.13.10 4.2.7.2.686 [id number] [id number] [facility] 2022-05-17 00:00:00 2022-05-17 00:00:00 Patient Secure Elliot Harrison [facility] 1.2.840.114 350.1.13.10 4.2.7.2.686 [id number] [facility] 2022-05-14 08:30:00 2022-05-14 08:30:00 Outpatient ELLIOT MOJICA [facility] [id number] [facility] 2022-04-11 00:00:00 2022-04-11 00:00:00 Patient Secure Elliot Harrison [facility] 1.2.840.114 350.1.13.10 4.2.7.2.686 [id number] 134 [id number] [facility] 2022-03-30 06:43:00 2022-03-30 09:05:00 Emergency X KIRAN SCALES [facility] ERT [id number] [facility] 2022-03-30 06:43:00 2022-03-30 09:05:00 Emergency Kiran Scales E [facility] 1..840.114 350.1.13.10 4.2.7.2.686 [id number] [facility] 2022-03-28 09:45:00 2022-03-28 10:52:09 Outpatient R ELLIOT GOULD [facility] [id number] [facility] 2022-03-28 09:45:00 2022-03-28 10:52:09 Routine Visit Elliot Gould [facility] 1..840.114 350.1.13.10 4.2.7.2.686 [id number] [facility] 2022-03-14 09:40:00 2022-03-14 09:40:00 Outpatient ALVERTO TEJADA [facility] [id number] [facility] 2022-03-08 09:45:00 2022-03-08 10:14:58 Outpatient R ELLIOT GOULD [facility] [id number] [facility] 2022-03-08 09:45:00 2022-03-08 10:14:58 Routine Visit GouldElliot [facility] 1.2.840.114 350.1.13.10 4.2.7.2.686 [id number] 134 [id number] [facility] 2022-02-26 15:51:00 2022-02-28 18:50:00 Inpatient P ELLIOT GOULD [facility] J[facility]AD [id number] [facility] 2022-02-26 15:51:00 2022-02-28 18:50:00 Hospital Encounter Elliot Gould [facility] 1.2.840.114 350.1.13.10 4.2.7.2.686 [id number] [facility] 2022-02-26 15:00:00 2022-02-26 15:25:23 Outpatient R ELLIOT GOULD [facility] [id number] [facility] 2022-02-26 15:00:00 2022-02-26 15:25:23 Routine Visit Elliot Gould [facility] 1.2.840.114 350.1.13.10 4.2.7.2.686 [id number] 134 [id number] [facility] 2022-02-26 00:00:00 2022-02-26 00:00:00 Orders Only Doctor Unassigned, Gamerco [facility] 1.2840.114 350.1.13.10 4.2.7.2.686 [id number] [facility] 2022-02-26 00:00:00 2022-02-26 00:00:00 Prep For Surgery Elliot Gould [facility] BUILDING 1.2840.114 350.1.13.10 4.2.7.2.686 [id number] 134 [id number] [facility] 2022-02-26 00:00:00 2022-02-26 00:00:00 Surgery Elliot Gould [facility] 1.2840.114 350.1.13.10 4.2.7.2.686 [id number] [facility] 2022-02-25 13:15:00 2022-02-25 15:05:00 Outpatient X SONIA MAYBERRY [facility] [id number] [facility] 2022-02-25 13:15:00 2022-02-25 15:05:00 Emergency Adum, Sonia Manuel [facility] 1..114 350.1.13.10 4.2.7.2.686 [id number] [id number] [facility] 2022-02-25 00:00:00 2022-02-25 00:00:00 Orders Only Doctor Unassigned, Gamerco [facility] 1..114 350.1.13.10 4.2.7.2.686 [id number] [facility] 2022-02-23 10:30:00 2022-02-23 11:00:00 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 Visit 3, [facility] Us Room Morgan Grande [facility] 1..114 350.1.13.10 4.2.7.2.686 [id number] [facility] 2022-02-23 10:30:00 2022-02-23 10:30:00 Outpatient [facility] [id number] [facility] 2022-02-14 11:00:00 2022-02-14 11:50:02 Outpatient R ELLIOT GOULD [facility] [id number] [facility] 2022-02-14 11:00:00 2022-02-14 11:50:02 Routine Visit Elliot Gould [facility] 1..114 350.1.13.10 4.2.7.2.686 [id number] 134 [id number] [facility] 2022-02-10 13:42:29 2022-02-10 23:59:00 Outpatient R ELLIOT GOULD [facility] [id number] [facility] 2022-02-10 13:42:29 2022-02-10 23:59:00 Hospital Encounter Elliot Gould [facility] 1.2.840.114 350.1.13.10 4.2.7.2.686 [id number] [facility] 2022-02-10 13:41:56 2022-02-10 13:41:56 Hospital Encounter Elliot Gould [facility] 1.2.840.114 350.1.13.10 4.2.7.2.686 [id number] [facility] 2022-02-09 00:00:00 2022-02-09 00:00:00 Case Management Elliot Gould [facility] PROFESS[facility] NAL BUILDING 1.2.840.114 350.1.13.10 4.2.7.2.686 [id number] [facility] 2022-02-09 00:00:00 2022-02-09 00:00:00 Patient Secure Msg Elliot Gould [facility] 1.2.840.114 350.1.13.10 4.2.7.2.686 [id number] 134 [id number] [facility] 2022-02-09 00:00:00 2022-02-09 00:00:00 Orders Only Doctor Unassigned, Gamerco [facility] 1.2.840.114 350.1.13.10 4.2.7.2.686 [id number] [facility] 2022-02-08 14:39:00 2022-02-08 22:01:00 Outpatient X SONIA MAYBERRY [facility] [id number] [facility] 2022-02-08 14:39:00 2022-02-08 22:01:00 Emergency Deal, Magalys Fregoso Vivian L [facility] 1.2.840.114 350.1.13.10 4.2.7.2.686 [id number] [id number] [facility] 2022-02-08 00:00:00 2022-02-08 00:00:00 Orders Only Doctor Unassigned, [employer]amerco [facility] 1.2840.114 350.1.13.10 4.2.7.2.686 [id number] [facility] 2022-02-07 12:40:00 2022-02-07 12:55:59 Outpatient R ALVERTO OLIVARES [facility] [id number] [facility] 2022-02-07 12:40:00 2022-02-07 12:55:59 Office Visit Alverto Olivares [facility] OFFICE BUILDING 1.84.114 350.1.13.10 4.2.7.2.686 [id number] [facility] 2022-02-03 16:20:00 2022-02-03 21:24:00 Outpatient X ELLIOT GOULD [facility] [id number] [facility] 2022-02-03 16:20:00 2022-02-03 21:24:00 Emergency YessiNataliya Vien [facility] 1..114 350.1.13.10 4.2.7.2.686 [id number] [facility] 2022-02-03 00:00:00 2022-02-03 00:00:00 Orders Only Doctor Unassigned, [employer] [facility] 1.20.114 350.1.13.10 4.2.7.2.686 [id number] [facility] 2022-02-01 20:31:00 2022-02-02 14:10:00 Inpatient X NOEL COOLEY [facility] [id number] [facility] 2022-02-01 20:31:00 2022-02-02 14:10:00 Hospital Encounter Noel Cooley [facility] 1.0.114 350.1.13.10 4.2.7.2.686 [id number] [facility] 2022-02-02 08:30:00 2022-02-02 08:30:00 Outpatient R [facility] [id number] [facility] 2022-02-01 09:45:00 2022-02-01 10:00:00 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 Visit Pob, Adc Lab Main Lobo Shari [facility] 1.2.840.114 350.1.13.10 4.2.7.2.686 [id number] [facility] 2022-02-01 09:45:00 2022-02-01 09:45:00 Outpatient Reji DIAMOND [facility] [id number] [facility] 2022-02-01 00:00:00 2022-02-01 00:00:00 Case Management Lobo [facility] 1.2.840.114 350.1.13.10 4.2.7.2.686 [id number] [facility] 2022-02-01 00:00:00 2022-02-01 00:00:00 Patient Secure Msg Elliot Gould Everett [facility] 1.2.840.114 350.1.13.10 4.2.7.2.686 [id number] [facility] 2022-02-01 00:00:00 2022-02-01 00:00:00 Orders Only Doctor Unassigned, [employer] [facility] 1.2.840.114 350.1.13.10 4.2.7.2.686 [id number] [facility] 2022-01-31 11:15:00 2022-01-31 11:57:42 Outpatient R LOBO [facility] [id number] [facility] 2022-01-31 11:15:00 2022-01-31 11:57:42 Routine Visit Shari Diamond [facility] 1.2840.114 350.1.13.10 4.2.7.2.686 [id number] [facility] 2022-01-30 13:50:00 2022-01-30 17:35:00 Outpatient P DERICK GOULDEN [facility] [id number] [facility] 2022-01-30 13:50:00 2022-01-30 17:35:00 Hospital Encounter Elliot Gould [facility] 1.2840.114 350.1.13.10 4.2.7.2.686 [id number] [facility] 2022-01-30 13:00:00 2022-01-30 13:15:00 Nurse Visit Nurse, [facility] 1.2840.114 350.1.13.10 4.2.7.2.686 [id number] [facility] 2022-01-30 13:00:00 2022-01-30 13:00:00 Outpatient R SHARI DIAMOND [facility] [id number] [facility] 2022-01-30 00:00:00 2022-01-30 00:00:00 Patient Secure Lisset Rodas [facility] 1.2.840.114 350.1.13.10 4.2.7.2.686 [id number] [facility] 2022-01-30 00:00:00 2022-01-30 00:00:00 Orders Only Doctor Unassigned, [employer] [facility] 1.2840.114 350.1.13.10 4.2.7.2.686 [id number] 009 [id number] [facility] 2022-01-30 00:00:00 2022-01-30 00:00:00 Case Management Elliot Gould [facility] 1.84.114 350.1.13.10 4.2.7.2.686 [id number] 134 [id number] [facility] 2022-01-28 22:59:00 2022-01-28 23:50:00 Outpatient X ADSONIA PEREZ [facility] JAVAD [id number] [facility] 2022-01-28 22:59:00 2022-01-28 23:50:00 Emergency AdumSonia [facility] 1..114 350.1.13.10 4.2.7.2.686 [id number] 083 [id number] [facility] 2022-01-28 00:00:00 2022-01-28 00:00:00 Orders Only Doctor Unassigned, Gamerco [facility] 1..114 350.1.13.10 4.2.7.2.686 [id number] 009 [id number] [facility] 2022-01-26 10:30:00 2022-01-26 11:30:51 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 Visit 3, [facility] Us Room Ran Arriaza [facility] 1.114 350.1.13.10 4.2.7.2.686 [id number] [facility] 2022-01-26 10:30:00 2022-01-26 10:30:00 Outpatient P RAN ARRIAZA SHANNON [facility] [id number] [facility] 2022-01-25 08:00:00 2022-01-25 08:00:00 Outpatient R [facility] [id number] [facility] 2022-01-19 00:00:00 2022-01-19 00:00:00 Telephone Derick Goulden [place] [facility] 1.84.114 350.1.13.10 4.2.7.2.686 [id number] 134 [id number] [facility] 2022-01-19 00:00:00 2022-01-19 00:00:00 Patient Secure Msg Elliot Gould [facility] 1..840.114 350.1.13.10 4.2.7.2.686 [id number] 134 [id number] [facility] 2022-01-18 08:30:00 2022-01-18 08:30:00 Outpatient R [facility] [id number] [facility] 2022-01-17 13:00:00 2022-01-17 13:50:08 Outpatient R ELLIOT GOULD [facility] [id number] [facility] 2022-01-17 13:00:00 2022-01-17 13:50:08 Routine Visit Elliot Gould [facility] 1.840.114 350.1.13.10 4.2.7.2.686 [id number] 134 [id number] [facility] 2022-01-03 09:00:00 2022-01-03 09:00:00 Outpatient R LOBO [facility] [id number] [facility] 2021-12-20 09:00:00 2021-12-20 09:16:25 Outpatient R LOBO [facility] [id number] [facility] 2021-12-20 09:00:00 2021-12-20 09:16:25 Routine Visit Ghanshyamshannen [facility] 1..840.114 350.1.13.10 4.2.7.2.686 [id number] 134 [id number] [facility] 2021-12-15 08:30:00 2021-12-15 09:29:43 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 Visit 1, [facility] 1.840.114 350.1.13.10 4.2.7.2.686 [id number] [facility] 2021-12-15 08:30:00 2021-12-15 08:30:00 Outpatient P EVER MAXWELL [facility] [id number] [facility] 2021-12-13 11:00:00 2021-12-13 11:00:00 Outpatient R ALVERTO OLIVARES [facility] [id number] [facility] 2021-11-22 11:00:00 2021-11-22 12:06:39 Outpatient R BRYANNAELLIOT [facility] [id number] [facility] 2021-11-22 11:00:00 2021-11-22 12:06:39 Routine Visit Elliot Gould [facility] 1..840.114 350.1.13.10 4.2.7.2.686 [id number] 134 [id number] [facility] 2021-11-07 08:00:00 2021-11-07 09:15:48 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 Visit Ultrasound, Gus Luque [facility] DENTAL SALES REPRESENTATIVE [facility] 1..840.114 350.1.13.10 4.2.7.2.686 [id number] [facility] 2021-11-07 08:00:00 2021-11-07 08:00:00 Outpatient P GUS SANTAMARIA [facility] [id number] [facility] 2021-10-31 00:00:00 2021-10-31 00:00:00 Patient Secure Msg Elliot Gould [facility] BUILDING 1..840.114 350.1.13.10 4.2.7.2.686 [id number] 134 [id number] [facility] 2021-10-24 15:30:00 2021-10-24 15:45:00 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 Visit 2, Adc Lab Shari Diamond [facility] 1.2.840.114 350.1.13.10 4.2.7.2.686 [id number] [facility] 2021-10-24 15:30:00 2021-10-24 15:30:00 Outpatient R SHARI DIAMODN [facility] [id number] [facility] 2021-10-24 14:30:00 2021-10-24 15:01:58 Routine Visit Shari Diamond [facility] 1.2.840.114 350.1.13.10 4.2.7.2.686 [id number] 134 [id number] [facility] 2021-10-24 00:00:00 2021-10-24 00:00:00 Orders Only Doctor Unassigned, Gamerco [facility] 1.2.840.114 350.1.13.10 4.2.7.2.686 [id number] 009 [id number] [facility] 2021-10-11 00:00:00 2021-10-11 00:00:00 Telephone Elliot Gould [facility] 1.2.840.114 350.1.13.10 4.2.7.2.686 [id number] 134 [id number] [facility] 2021-09-26 13:15:00 2021-09-26 13:28:48 Outpatient R ELLIOT GOULD [facility] [id number] [facility] 2021-09-26 13:15:00 2021-09-26 13:28:48 Routine Visit Elliot Gould [facility] 1.2.840.114 350.1.13.10 4.2.7.2.686 [id number] 134 [id number] [facility] 2021-09-26 11:30:00 2021-09-26 11:45:00 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 Visit 2, Adc Lab Elliot Gould [facility] 1.2.840.114 350.1.13.10 4.2.7.2.686 [id number] [facility] 2021-09-26 00:00:00 2021-09-26 00:00:00 Orders Only Doctor Unassigned, Gamerco [facility] 1.2840.114 350.1.13.10 4.2.7.2.686 [id number] 009 [id number] [facility] 2021-09-21 00:00:00 2021-09-21 00:00:00 Letter (Out) Lobo Shari [facility] 1.2.840.114 350.1.13.10 4.2.7.2.686 [id number] 134 [id number] [facility] 2021-09-21 00:00:00 2021-09-21 00:00:00 Patient Secure Msg Lobo Shari [facility] 1.2.840.114 350.1.13.10 4.2.7.2.686 [id number] 134 [id number] [facility] 2021-09-12 11:30:00 2021-09-12 11:30:00 Outpatient R [facility] [id number] [facility] 2021-08-29 14:00:00 2021-08-29 16:02:24 Outpatient R SHARI DIAMOND [facility] [id number] [facility] 2021-08-29 14:00:00 2021-08-29 14:15:00 Routine Visit Shari Diamond [facility] 1.2.840.114 350.1.13.10 4.2.7.2.686 [id number] 134 [id number] [facility] 2021-08-07 12:00:00 2021-08-07 12:15:00 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 Visit Pob, Adc Lab Main Elliot Gould [facility] BUILDING 1.2840.114 350.1.13.10 4.2.7.2.686 [id number] [facility] 2021-08-07 12:00:00 2021-08-07 12:00:00 Outpatient R ELLIOT GOULD [facility] [id number] [facility] 2021-08-02 13:00:00 2021-08-02 13:00:00 Outpatient R [facility] [id number] [facility] 2021-08-01 13:00:00 2021-08-01 13:27:48 Outpatient R ELLIOT GOULD [facility] [id number] [facility] 2021-08-01 13:00:00 2021-08-01 13:27:48 Routine Visit Elliot Gould [facility] BUILDING 1.2840.114 350.1.13.10 4.2.7.2.686 [id number] 134 [id number] [facility] 2021-07-31 14:06:26 2021-07-31 23:59:00 Outpatient R ELLIOT GOULD [facility] [id number] [facility] 2021-07-31 14:06:26 2021-07-31 23:59:00 Hospital Encounter Elliot Gould [facility] 1.2.114 350.1.13.10 4.2.7.2.686 [id number] [facility] 2021-07-24 13:15:00 2021-07-24 13:30:00 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 Visit 2, Adc Lab Elliot Gould [facility] 1.2.840.114 350.1.13.10 4.2.7.2.686 [id number] [facility] 2021-07-24 13:15:00 2021-07-24 13:15:00 Outpatient R ELLIOT GOULD [facility] [id number] [facility] 2021-07-24 00:00:00 2021-07-24 00:00:00 Telephone Elliot Gould [facility] 1.2.840.114 350.1.13.10 4.2.7.2.686 [id number] 134 [id number] [facility] 2021-07-24 00:00:00 2021-07-24 00:00:00 Case Management Elliot Gould [facility] BUILDING 1.2.840.114 350.1.13.10 4.2.7.2.686 [id number] 134 [id number] [facility] 2021-07-21 13:00:00 2021-07-21 13:15:00 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 Visit 2, Adc Lab Elliot Gould [facility] BUILDING 1.2.840.114 350.1.13.10 4.2.7.2.686 [id number] 353 [id number] [facility] 2021-07-21 13:00:00 2021-07-21 13:00:00 Outpatient R ELLIOT GOULD [facility] [id number] [facility] 2021-07-19 15:30:00 2021-07-19 15:45:00 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 Visit 2, Adc Lab Elliot Gould [facility] BUILDING 1.2.840.114 350.1.13.10 4.2.7.2.686 [id number] 353 [id number] [facility] 2021-07-19 14:30:00 2021-07-19 15:11:33 Outpatient R ELLIOT GOULD [facility] [id number] [facility] 2021-07-19 14:30:00 2021-07-19 15:11:33 Initial Visit Elliot Gould [facility] BUILDING 1.2840.114 350.1.13.10 4.2.7.2.686 [id number] 134 [id number] [facility] 2021-07-19 00:00:00 2021-07-19 00:00:00 Orders Only Doctor Unassigned, Gamerco [facility] 1.2840.114 350.1.13.10 4.2.7.2.686 [id number] [facility] 2021-05-12 00:00:00 2021-05-12 00:00:00 Patient Secure Msg Lobo Shari [facility] 1..114 350.1.13.10 4.2.7.2.686 [id number] 134 [id number] [facility] 2021-03-03 13:00:00 2021-03-03 13:00:00 Outpatient DERRICK Mendoza RAI [facility] [id number] [facility] 2021-01-31 13:00:00 2021-01-31 13:00:00 Outpatient [facility] [id number] [facility] 2021-01-22 00:00:00 2021-01-22 00:00:00 Patient Secure Msg Doctor Unassigned, Gamerco [facility] 1..114 350.1.13.10 4.2.7.2.686 [id number] [facility] 2021-01-20 00:00:00 2021-01-20 00:00:00 Patient Secure Msg Doctor Unassigned, [place]amerco [facility] 1.20.114 350.1.13.10 4.2.7.2.686 [id number] [facility] 2021-01-18 00:00:00 2021-01-18 00:00:00 Patient Secure Msg Doctor Unassigned, [place]amerco [facility] 1.20.114 350.1.13.10 4.2.7.2.686 [id number] [id number] [facility] 2021-01-17 00:00:00 2021-01-17 00:00:00 Transition of Care Adele Gonzalez 1.2.840.114 350.1.13.10 4.2.7.2.686 [id number] [facility] 2021-01-12 20:54:00 2021-01-15 15:00:00 Hospital Encounter Emanuel Roberts [facility] 1.2.840.114 350.1.13.10 4.2.7.2.686 [id number] 090 [id number] [facility] 2021-01-12 14:58:23 2021-01-12 15:58:23 Office Visit Alverto Olivares S [facility] Continuity 1.2.840.1 55547.1.1 3.104.2.7 .3.097383 .8 [id number] [facility] 2021-01-12 15:30:00 2021-01-12 15:30:00 Outpatient R ALVERTO OLIVARES [facility] [id number] [facility] 2021-01-12 00:00:00 2021-01-12 00:00:00 Travel 1.2.840.1 82233.1.1 3.104.2.7 .3.711520 .8 1.2.840.114 350.1.13.10 4.2.7.3.698 084.8 [id number] [facility] 2021-01-12 00:00:00 2021-01-12 00:00:00 Telephone Clinic, [facility] Neurology Continuity [facility] 1.2.840.114 350.1.13.10 4.2.7.2.686 [id number] [id number] [facility] 2021-01-09 13:30:00 2021-01-09 13:30:00 Outpatient Reji MEJIABABAKO [facility] [id number] [facility] 2020-12-29 02:14:00 2020-12-29 02:47:00 Emergency Coleen Miller [facility] 1.2.840.114 350.1.13.10 4.2.7.2.686 [id number] 084 [id number] [facility] 2020-12-29 02:14:00 2020-12-29 02:47:00 Emergency Coleen Miller 1.2.840.1 56605.1.1 3.104.2.7 .3.555488 .8 [id number] [facility] 2020-12-29 00:00:00 2020-12-29 00:00:00 Travel 1.2.840.1 04315.1.1 3.104.2.7 .3.487008 .8 1.2.840.114 350.1.13.10 4.2.7.3.698 084.8 [id number] [facility] 2020-12-23 10:00:00 2020-12-23 10:00:00 Outpatient LISA ROSALES [facility] [id number] [facility] 2020-12-19 00:00:00 2020-12-19 00:00:00 Outpatient COSME BOYER [facility] [id number] [facility] 2020-12-13 00:00:00 2020-12-13 00:00:00 Travel 1.2.840.1 58659.1.1 3.104.2.7 .3.522684 .8 1.2.840.114 350.1.13.10 4.2.7.3.698 084.8 [id number] [facility] 2020-12-12 14:30:00 2020-12-12 14:30:00 Outpatient SHARI IZAGUIRRE [facility] [id number] [facility] 2020-12-02 09:17:22 2020-12-02 09:47:22 Office Visit Cosme Brennan [facility] 1.2.840.114 350.1.13.10 4.2.7.2.686 [id number] [facility] 2020-12-02 09:17:22 2020-12-02 09:47:22 Office Visit Cosme Brennan 1.2.840.1 69835.1.1 3.104.2.7 .3.906972 .8 [id number] [facility] 2020-12-02 09:30:00 2020-12-02 09:30:00 Outpatient R COSME BRENNAN [facility] [id number] [facility] 2020-12-02 00:00:00 2020-12-02 00:00:00 Travel 1.2.840.1 40772.1.1 3.104.2.7 .3.199200 .8 1.2.840.114 350.1.13.10 4.2.7.3.698 084.8 [id number] [facility] 2020-11-21 23:30:00 2020-11-22 01:52:00 Emergency Melissa Romeo [facility] 1.2.840.114 350.1.13.10 4.2.7.2.686 [id number] 084 [id number] [facility] 2020-11-21 23:30:00 2020-11-22 01:52:00 Emergency Melissa Romeo 1.2.840.1 32984.1.1 3.104.2.7 .3.623670 .8 [id number] [facility] 2020-11-22 00:00:00 2020-11-22 00:00:00 Patient Secure Msg Doctor Unassigned, [place]co [facility] 1.2.840.114 350.1.13.10 4.2.7.2.686 [id number] 019 [id number] [facility] 2020-11-21 00:00:00 2020-11-21 00:00:00 Orders Only Doctor Unassigned, Gamerco [facility] 1.2.840.114 350.1.13.10 4.2.7.2.686 [id number] [id number] [facility] 2020-11-21 00:00:00 2020-11-21 00:00:00 Travel 1.2.840.1 92469.1.1 3.104.2.7 .3.451183 .8 1.2.840.114 350.1.13.10 4.2.7.3.698 084.8 [id number] [facility] 2020-11-21 00:00:00 2020-11-21 00:00:00 Orders Only Doctor Unassigned, [place]co 1.2.840.1 54254.1.1 3.104.2.7 .3.705038 .8 [id number] [facility] 2020-11-08 08:00:00 2020-11-08 08:00:00 Outpatient SHARI IZAGUIRRE [facility] [id number] [facility] 2020-11-07 12:50:14 2020-11-07 14:30:12 Office Visit Shari Diamond 1.2.840.1 47905.1.1 3.104.2.7 .3.528719 .8 [id number] [facility] 2020-11-07 12:50:14 2020-11-07 13:20:14 Office Visit Shari Diamond [facility] 1.2.840.114 350.1.13.10 4.2.7.2.686 [id number] 134 [id number] [facility] 2020-11-07 13:00:00 2020-11-07 13:00:00 Outpatient SHARI IZAGUIRRE [facility] [id number] [facility] 2020-11-07 00:00:00 2020-11-07 00:00:00 Travel 1.2.840.1 27477.1.1 3.104.2.7 .3.286720 .8 1.2.840.114 350.1.13.10 4.2.7.3.698 084.8 [id number] [facility] 2020-11-03 03:41:00 2020-11-03 03:41:00 Outpatient LISTER_MELI [facility] [id number] [facility] 2020-10-27 01:43:00 2020-10-27 03:43:00 Emergency Nkechi Olivares Phillip [facility] 1.2.840.114 350.1.13.10 4.2.7.2.686 [id number] 084 [id number] [facility] 2020-10-27 01:43:00 2020-10-27 03:43:00 Emergency Nkechi Olivares Phillip 1.2.840.1 29180.1.1 3.104.2.7 .3.806719 .8 [id number] [facility] 2020-10-27 00:00:00 2020-10-27 00:00:00 Travel 1.2.840.1 90390.1.1 3.104.2.7 .3.186608 .8 1.2.840.114 350.1.13.10 4.2.7.3.698 084.8 [id number] [facility] 2020-10-25 17:16:00 2020-10-25 20:33:00 Emergency Nkechi Olivares [facility] 1.2.840.114 350.1.13.10 4.2.7.2.686 [id number] 084 [id number] [facility] 2020-10-25 17:16:00 2020-10-25 20:33:00 Emergency Nkechi Olivares 1.2.840.1 17442.1.1 3.104.2.7 .3.477797 .8 [id number] [facility] 2020-10-25 00:00:00 2020-10-25 00:00:00 Travel 1.2.840.1 66280.1.1 3.104.2.7 .3.669953 .8 1.2.840.114 350.1.13.10 4.2.7.3.698 084.8 [id number] [facility] 2020-09-28 14:26:34 2020-09-28 14:46:15 [facility] 1.2.840.114 350.1.13.10 4.2.7.2.686 [id number] 134 [id number] [facility] 2020-09-28 14:30:00 2020-09-28 14:30:00 Outpatient R [facility] [id number] [facility] 2020-09-28 00:00:00 2020-09-28 00:00:00 Patient Secure Shari Castillo [facility] 1.2.840.114 350.1.13.10 4.2.7.2.686 [id number] 134 [id number] [facility] 2020-08-23 14:30:00 2020-08-23 14:30:00 Outpatient R LOBO [facility] [id number] [facility] 2020-08-17 00:00:00 2020-08-17 00:00:00 Patient Secure Msg Diamond [facility] 1.2.840.114 350.1.13.10 4.2.7.2.686 [id number] 134 [id number] [facility] 2020-08-16 00:00:00 2020-08-16 00:00:00 Patient Secure Msg Shari Diamond [facility] BU[facility] 1.2.840.114 350.1.13.10 4.2.7.2.686 [id number] 134 [id number] [facility] 2020-08-15 00:00:00 2020-08-15 00:00:00 Case Management Shari Diamond [facility] Building 1.2.840.114 350.1.13.10 4.2.7.2.686 [id number] 134 [id number] [facility] 2020-08-12 00:00:00 2020-08-12 00:00:00 Telephone Shari Diamond [facility] Building 1.2.840.114 350.1.13.10 4.2.7.2.686 [id number] 134 [id number] [facility] 2020-08-12 00:00:00 2020-08-12 00:00:00 Patient Secure Msg Shari Diamond [facility] BUILDING 1.2.840.114 350.1.13.10 4.2.7.2.686 [id number] 134 [id number] [facility] 2020-08-11 00:00:00 2020-08-11 00:00:00 Case Management Shari Diamond [facility] Building 1.2.840.114 350.1.13.10 4.2.7.2.686 [id number] 134 [id number] [facility] 2020-08-11 00:00:00 2020-08-11 00:00:00 Telephone Shari Diamond [facility] Building 1.2.840.114 350.1.13.10 4.2.7.2.686 [id number] 134 [id number] [facility] 2020-08-10 14:26:30 2020-08-10 15:20:57 Office Visit [facility] 1..840.114 350.1.13.10 4.2.7.2.686 [id number] 134 [id number] [facility] 2020-08-10 14:45:00 2020-08-10 14:45:00 Outpatient SHARI IZAGUIRRE [facility] [id number] [facility] 2020-08-10 00:00:00 2020-08-10 00:00:00 Orders Only Doctor Unassigned, [place]co [facility] 1..840.114 350.1.13.10 4.2.7.2.686 [id number] 009 [id number] [facility] 2020-07-12 00:00:00 2020-07-12 00:00:00 Patient Outreach Macario Arriaza [facility] 1..840.114 350.1.13.10 4.2.7.2.686 [id number] [facility] 2020-04-06 10:30:00 2020-04-06 10:30:00 Outpatient SHARI IZAGUIRRE [facility] [id number] [facility] 2020-03-25 13:00:00 2020-03-25 13:00:00 Outpatient SHARI IZAGUIRRE [facility] [id number] [facility] 2020-02-19 09:30:00 2020-02-19 09:30:00 Outpatient TAYLOR WOOD [facility] [id number] [facility] 2019-12-04 09:00:00 2019-12-04 09:00:00 Outpatient Reji [facility] [id number] [facility] 2019-09-24 14:37:46 2019-09-24 14:52:46 Routine Visit Lobo Shari [facility] 1..840.114 350.1.13.10 4.2.7.2.686 [id number] 134 [id number] 2019-09-24 14:37:46 2019-09-24 14:52:46 [facility] 1.2.840.114 350.1.13.10 4.2.7.2.686 [id number] 134 [id number] [facility] 2019-09-24 14:45:00 2019-09-24 14:45:00 Outpatient R SHARI DIAMOND [facility] [id number] [facility] 2019-08-27 04:09:00 2019-08-28 21:10:00 Hospital Encounter Elliot Gould [facility] 1.2.840.114 350.1.13.10 4.2.7.2.686 [id number] [id number] 2019-08-27 04:09:00 2019-08-28 21:10:00 Hospital Encounter Elliot Gould [facility] 1.2.840.114 350.1.13.10 4.2.7.2.686 [id number] [id number] [facility] 2019-08-26 10:10:09 2019-08-26 10:37:20 Routine Visit Elliot Gould [facility] Building 1.2.840.114 350.1.13.10 4.2.7.2.686 [id number] 134 [id number] [facility] 2019-08-26 10:15:00 2019-08-26 10:15:00 Outpatient R ELLIOT GOULD [facility] [id number] [facility] 2019-08-26 09:23:44 2019-08-26 09:30:04 Laboratory Only Only, Adc Test [facility] Building 1.2.840.114 350.1.13.10 4.2.7.2.686 [id number] 2019-08-26 09:23:44 2019-08-26 09:30:04 Laboratory Only Only, Adc Test [facility] 1.2.840.114 350.1.13.10 4.2.7.2.686 [id number] 353 [id number] [facility] 2019-08-25 00:00:00 2019-08-25 00:00:00 Patient Secure [facility] 1.2.840.114 350.1.13.10 4.2.7.2.686 [id number] 134 [id number] 2019-08-25 00:00:00 2019-08-25 00:00:00 Patient Secure Msg [facility] 1.2.840.114 350.1.13.10 4.2.7.2.686 [id number] 134 [id number] 2019-08-25 00:00:00 2019-08-25 00:00:00 Patient Secure Msg [facility] 1.2.840.114 350.1.13.10 4.2.7.2.686 [id number] 134 [id number] [facility] 2019-08-25 00:00:00 2019-08-25 00:00:00 Patient Secure Msg [facility] 1.2.840.114 350.1.13.10 4.2.7.2.686 [id number] 134 [id number] [facility] 2019-08-24 00:00:00 2019-08-24 00:00:00 Patient Secure Msg [facility] 1.2.840.114 350.1.13.10 4.2.7.2.686 [id number] 134 [id number] 2019-08-24 00:00:00 2019-08-24 00:00:00 [facility] 1.2.840.114 350.1.13.10 4.2.7.2.686 [id number] 134 [id number] [facility] 2019-08-24 00:00:00 2019-08-24 00:00:00 Patient Secure Msg Elliot Gould [facility] nal Building 1.2.840.114 350.1.13.10 4.2.7.2.686 [id number] 134 [id number] 2019-08-24 00:00:00 2019-08-24 00:00:00 Patient Secure Msg Elliot Gould [facility] nal Building 1.2.840.114 350.1.13.10 4.2.7.2.686 [id number] 134 [id number] [facility] 2019-08-20 00:00:00 2019-08-20 00:00:00 Telephone Elliot Gould [facility] Building 1.2.840.114 350.1.13.10 4.2.7.2.686 [id number] 134 [id number] [facility] 2019-08-20 00:00:00 2019-08-20 00:00:00 Case Management Shari Diamond [facility] Building 1.2.840.114 350.1.13.10 4.2.7.2.686 [id number] 134 [id number] [facility] 2019-08-20 00:00:00 2019-08-20 00:00:00 Patient Secure Msg Elliot Gould [facility] nal Building 1.2.840.114 350.1.13.10 4.2.7.2.686 [id number] 134 [id number] [facility] 2019-08-20 00:00:00 2019-08-20 00:00:00 Patient Secure Msg Elliot Gould [facility] nal Building 1.2.840.114 350.1.13.10 4.2.7.2.686 [id number] 134 [id number] 2019-08-19 16:00:00 2019-08-19 16:00:00 Outpatient R ELLIOT GOULD [facility] [id number] [facility] 2019-08-19 09:52:56 2019-08-19 10:34:36 Routine Visit Elliot Gould [facility] 1.2.840.114 350.1.13.10 4.2.7.2.686 [id number] 134 [id number] [facility] 2019-08-17 16:00:00 2019-08-17 16:00:00 [facility] [id number] [facility] 2019-08-13 16:05:07 2019-08-13 17:19:59 Routine Visit Elliot Gould [facility] 1.2.840.114 350.1.13.10 4.2.7.2.686 [id number] 134 [id number] [facility] 2019-08-13 16:00:00 2019-08-13 16:00:00 Outpatient R ELLIOT GOULD [facility] [id number] [facility] 2019-08-07 09:30:00 2019-08-07 09:30:00 [facility] [id number] [facility] 2019-08-06 10:44:08 2019-08-06 14:10:20 Routine Visit Lobo Shari [facility] 1.2.840.114 350.1.13.10 4.2.7.2.686 [id number] 134 [id number] [facility] 2019-08-06 11:15:00 2019-08-06 11:15:00 [facility] [id number] [facility] 2019-08-06 00:00:00 2019-08-06 00:00:00 Patient Secure Msg [facility] 1.2.840.114 350.1.13.10 4.2.7.2.686 [id number] 134 [id number] [facility] 2019-08-06 00:00:00 2019-08-06 00:00:00 Patient Secure Msg Elliot Gould [facility] Building 1.2.840.114 350.1.13.10 4.2.7.2.686 [id number] 134 [id number] 2019-08-03 17:06:00 2019-08-03 20:15:00 Hospital Encounter Elliot Gould [facility] 1.2.840.114 350.1.13.10 4.2.7.2.686 [id number] 083 [id number] [facility] 2019-08-03 00:00:00 2019-08-03 00:00:00 Telephone Elliot Gould [facility] 1.2.840.114 350.1.13.10 4.2.7.2.686 [id number] 134 [id number] [facility] 2019-08-03 00:00:00 2019-08-03 00:00:00 Patient Secure Msg Elliot Gould [facility] Building 1.2.840.114 350.1.13.10 4.2.7.2.686 [id number] 134 [id number] [facility] 2019-08-03 00:00:00 2019-08-03 00:00:00 Patient Secure Msg Elliot Gould [facility] Building 1.2.840.114 350.1.13.10 4.2.7.2.686 [id number] 134 [id number] 2019-07-21 16:00:00 2019-07-21 16:00:00 Outpatient R ELLIOT GOULD [facility] [id number] [facility] 2019-07-21 08:29:12 2019-07-21 15:14:02 Telemedici ne Visit [facility] 1.2.840.114 350.1.13.10 4.2.7.2.686 [id number] 134 [id number] [facility] 2019-07-20 00:00:00 2019-07-20 00:00:00 Patient Secure Msg [facility] 1.2.840.114 350.1.13.10 4.2.7.2.686 [id number] 134 [id number] [facility] 2019-07-20 00:00:00 2019-07-20 00:00:00 Patient Secure Msg [facility] 1.2.840.114 350.1.13.10 4.2.7.2.686 [id number] 134 [id number] [facility] 2019-07-20 00:00:00 2019-07-20 00:00:00 Patient Secure Msg [facility] 1.2.840.114 350.1.13.10 4.2.7.2.686 [id number] 134 [id number] [facility] 2019-07-17 16:49:00 2019-07-17 19:25:00 Outpatient P ELLIOT GOULD JAVAD [id number] [facility] 2019-07-17 16:49:00 2019-07-17 19:25:00 Hospital Encounter Elliot Gould [facility] 1.2.840.114 350.1.13.10 4.2.7.2.686 [id number] 083 [id number] [facility] 2019-07-17 00:00:00 2019-07-17 00:00:00 Patient Secure Msg [facility] 1.2.840.114 350.1.13.10 4.2.7.2.686 [id number] 134 [id number] [facility] 2019-07-17 00:00:00 2019-07-17 00:00:00 Patient Secure Msg Elliot Gould [facility] [place] [facility] nal Building 1.2.840.114 350.1.13.10 4.2.7.2.686 [id number] 134 [id number] [facility] 2019-07-16 00:00:00 2019-07-16 00:00:00 Patient Secure Msg [facility] 1.2.840.114 350.1.13.10 4.2.7.2.686 [id number] 134 [id number] [facility] 2019-07-06 11:15:00 2019-07-06 11:15:00 Outpatient R GHANSHYAMSHANNEN SHARI [facility] [id number] [facility] 2019-07-06 10:41:18 2019-07-06 10:56:18 Routine [facility] 1.2.840.114 350.1.13.10 4.2.7.2.686 [id number] 134 [id number] [facility] 2019-06-30 00:00:00 2019-06-30 00:00:00 Patient Secure Msg [facility] 1.2.840.114 350.1.13.10 4.2.7.2.686 [id number] 134 [id number] [facility] 2019-06-30 00:00:00 2019-06-30 00:00:00 Patient Secure Msg [facility] 1.2.840.114 350.1.13.10 4.2.7.2.686 [id number] 134 [id number] [facility] 2019-06-29 15:38:14 2019-06-29 16:52:02 Routine Visit Elliot Gould [facility] Building 1..840.114 350.1.13.10 4.2.7.2.686 [id number] 134 [id number] [facility] 2019-06-29 15:45:00 2019-06-29 15:45:00 Outpatient R ELLIOT GOULD [facility] [id number] [facility] 2019-06-29 13:15:00 2019-06-29 13:15:00 Outpatient R BRYANNA ELLIOT [facility] [id number] [facility] 2019-06-26 08:39:29 2019-06-26 08:54:29 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7.2.686 [id number] 009 [id number] [facility] 2019-06-25 00:00:00 2019-06-25 00:00:00 Patient Secure Msg Elliot Gould [facility] Building 1.84.114 350.1.13.10 4.2.7.2.686 [id number] 134 [id number] [facility] 2019-06-25 00:00:00 2019-06-25 00:00:00 Patient Secure Elliot Harrison [facility] nal Building 1.2.840.114 350.1.13.10 4.2.7.2.686 [id number] 134 [id number] [facility] 2019-06-18 00:00:00 2019-06-18 00:00:00 Patient Secure [facility] 1.2.840.114 350.1.13.10 4.2.7.2.686 [id number] 134 [id number] [facility] 2019-06-01 14:22:27 2019-06-01 14:37:27 Routine Visit Shari Diamond [facility] 1.2.840.114 350.1.13.10 4.2.7.2.686 [id number] 134 [id number] [facility] 2019-05-29 23:53:41 2019-05-30 02:39:00 Emergency Saida Laguna [facility] 1.2.840.114 350.1.13.10 4.2.7.2.686 [id number] 084 [id number] [facility] 2019-05-29 00:00:00 2019-05-29 00:00:00 Orders Only Doctor Unassigned, [place] [facility] 1.2.840.114 350.1.13.10 4.2.7.2.686 [id number] 009 [id number] [facility] 2019-01-06 15:20:13 2019-01-06 16:47:07 Initial Visit Shari Dimaond Vien [facility] Building 1.2.840.114 350.1.13.10 4.2.7.2.686 [id number] 134 [id number] [facility] 2019-01-06 00:00:00 2019-01-06 00:00:00 Orders Only Doctor Unassigned, [place] [facility] 1.2.840.114 350.1.13.10 4.2.7.2.686 [id number] 009 [id number] [facility] Results Test Description Test Time Test Comments Results Result Co mments Source Indication for culture: RiskForSepsis-no oth srcSpecimen Description: CLEAN CATCHCBC W/AUTO [id number] 23:07:00* Test Item Value Reference Range Interpretation Comme nts WHITE BLOOD CELL (test code = WBC) 13.1 x10 3/uL 4.5-11.0 H RED BLOOD CELL (test code = RBC) 4.37 x10 6/uL 3.54-5.02 N HEMOGLOBIN (test code = HGB) 12.1 g/dL 11.0-15.0 N HEMATOCRIT (test code = HCT) 38.0 % 33.0-45.0 N MEAN CELL VOLUME (test code = MCV) 87.0 fL 81.0-99.0 N MEAN CELL HGB (test code = MCH) 27.7 pg 27.0-33.0 N MEAN CELL HGB CONCETRATION (test code = MCHC) 31.8 g/dL 33.0-37.0 L RED CELL DISTRIBUTION WIDTH CV (test code = RDW) 13.5 % 11.5-14.5 N RED CELL DISTRIBUTION WIDTH SD (test code = RDW-SD) 42.5 fL 37.0-54.0 N PLATELET COUNT (test code = PLT) 309 x10 3/uL 150-400 N MEAN PLATELET VOLUME (test code = MPV) 9.7 fL 7.0-9.0 H NEUTROPHIL % (test code = NT%) 54.5 % 56.0-77.0 L LYMPHOCYTE % (test code = LY%) 37.4 % 14.0-32.0 H NEUTROPHIL # (test code = NT#) 7.12 x10 3/uL 2.0-7.6 N LYMPHOCYTE # (test code = LY#) 4.90 x10 3/uL 1.0-3.8 H IMMATURE GRANULOCYTE % (test code = IG%) 0.2 % 0.0-2.0 N MONOCYTE % (test code = MO%) 6.7 % 4.8-9.0 N EOSINOPHIL % (test code = EO%) 1.0 % 0.3-3.7 N BASOPHIL % (test code = BA%) 0.2 % 0.0-2.0 N NUCLEATED RBC % (test code = NRBC%) 0.0 % 0-0 N IMMATURE GRANULOCYTE # (test code = IG#) 0.03 x10 3/uL 0.00-0.03 N MONOCYTE # (test code = MO#) 0.88 x10 3/uL 0.1-0.8 H EOSINOPHIL # (test code = EO#) 0.13 x10 3/uL 0.0-0.2 N BASOPHIL # (test code = BA#) 0.03 x10 3/uL 0.0-0.2 N NUCLEATED RBC # (test code = NRBC#) 0.00 x10 3/uL 0.0-0.1 N MANUAL DIFF REQUIRED (test code = MDIFF) NO SLIDE REVIEW ED, CONSISTENT WITH AUTO DIFF. BASIC METABOLIC [id number] 23:01:00* Test Item Value Reference Range Interpretation Comme nts SODIUM (test code = NA) 142 mEq/L 134-147 N POTASSIUM (test code = K) 3.8 mEq/L 3.4-5.0 N CHLORIDE (test code = CL) 107 mEq/L 100-108 N CARBON DIOXIDE (test code = CO2) 30 mEq/l 21-33 N ANION GAP (test code = GAP) 9 0-20 N GLUCOSE (test code = GLU) 106 mg/dL 77-141 N BLOOD UREA NITROGEN (test code = BUN) 6 mg/dL 7-25 L GLOMERULAR FILTRATION RATE (test code = GFR) 122.3 110-120 H The Glomerular Filtration Rate is a calculated parameterbased on serum Creatinine, patient age and sex. GFR valuesless than 60 mL/min/1.73 square meters are indicative ofChronic Kidney Disease. Values less than 15 mL/min/1.73square meters indicate Kidney failure. The calculation forGFR is based on the CKD-EPI (202) calculation. This formulais race indifferent and is the recommended formula for GFRby the National Kidney Foundation for Adults.The GFR will not calculate if the sex is unknown or if thepatient's age is <18 years. CREATININE (test code = CREAT) 0.7 mg/dL 0.6-1.3 N CALCIUM (test code = CA) 9.0 mg/dL 8.0-10.5 N TROP-I HIGH [id number] 23:01:00* Test Item Value Reference Range Interpretation Comme nts TROP-I HIGH SENSITIVITY (test code = TROPIHS) < 3 ng/L 0-34 N CAUTION: Units o f the current test methodology (ng/L) differfrom the prior test methodology (ng/mL) by a factor of 1000. 99th Percentile Upper Reference Limit (URL): Females: 34 ng/LMales: 54 ng/L In order to distinguish acute elevations of high sensitivitytroponin from other clinical conditions, the FourthUniversal Definition of Myocardial Infarction stressesclinical assessment and the demonstration of a rise and/orfall in serial troponin results above the URL. These results were obtained using [employer] IM TnIHreagent. Results from different methodologies should not becompared to one another as quantitative results and URLs mayvary by method. Transthoracic echo (TTE)2023-09-04 23:59:40* Test Item Value Reference Range Interpretation Comme nts Height (test code = 4036589470) 65 in Weight (test code = 0242245375) 226 lbs Systolic BP (test code = 7560593153) 122 mmHg Diastolic BP (test code = 8575333064) 66 mmHg Heart Rate (test code = 7461049000) 73 bpm BSA (test code = 3362997066) 2.08 m2 Ao root diam (test code = 4409493471) 2.80 cm Aortic root (test code = 1150254528) 2.8 cm Ao root annulus (test code = 7324710806) 2.8 cm LVOT diameter (test code = 9394463357) 1.81 cm LVOT area (test code = 6629911552) 2.60 cm2 LA size (test code = 5191533580) 3.3 cm LVIDD (test code = 7569740807) 4.00 cm Left Ventricular End Diastolic Volume by Teichholz Method (test code = 1698483) 71.4 mL IVS (test code = 2367464815) 1.08 cm Interventricular Septum Diastolic Thickness by 2D (test code = 1637422) 1.08 cm LVPWD (test code = 0850880931) 1.09 cm PW (test code = 1422771369) 1.09 cm 0.6-1.1 EF(Teich) (test code = 6813862196) 68.20 % LVIDS (test code = 6160362913) 2.50 cm Left Ventricular End Systolic Volume by Teichholz Method (test code = 9781823) 22.7 mL FS (test code = 9617240515) 38 % EF - 2D (test code = 31901930) 68.20 % Pulmonic Regurgitant End Max Velocity (test code = 7870840973) 110.7 cm/s LAV(MOD-sp4) (test code = 6958995206) 52.90 mL E wave decelartion time (test code = 6486814901) 0.11 s MV stenosis pressure 1/2 time (test code = 4297281703) 32.0 ms MV Peak A Andreia (test code = 0618452530) 54.5 cm/s MV Peak E Andreia (test code = 2583324144) 76.0 cm/s E/A ratio (test code = 8437057023) 1.39 ratio MV Prop V (test code = 7171525793) 158.40 cm/s MV E/e' septal (test code = 1918459321) 18.7 cm/s Tapse (test code = 5929241761) 2.6 cm LVOT stroke volume (test code = 6023783652) 62.20 cm3 LVOT peak andreia (test code = 9586053104) 135.2 cm/s LVOT mn grad (test code = 4669009557) 3.3 mmHg AV LVOT peak gradient (test code = 9536679535) 7.3 mmHg LVOT peak VTI (test code = 0532804516) 24.1 cm LV V1 mean (test code = 0539840728) 85.40 cm/s Aortic valve mean velocity (test code = 3164455086) 103.9 cm/s Ao peak andreia (test code = 7893344890) 150.1 cm/s Ao VTI (test code = 5362234117) 29.6 cm AV area by cont VTI (test code = 6616022928) 2.1 cm2 AV area peak andreia (test code = 7138053601) 2.3 cm2 Ao max PG (test code = 9466896897) 9.00 mm[Hg] AV peak gradient (test code = 7120771655) 9.0 mmHg AV valve area (test code = 3453087853) 2.10 cm2 AV mean gradient (test code = 4118275258) 4.7 mmHg Radiology Study observation (narrative) (test code = 80728-4) ZAYRA (test code = ZAYRA) ?Left?Ventricle: Left ventricle size is normal. Normal wall thickness. Normal wall motion. Normal systolic function with a visually estimated EF of 60 - 65%. Normal diastolic function. ?Right?Ventricle: Right ventricle size is normal. Normal systolic function. ?Tricuspid?Valve: Trace transvalvular regurgitation. Insufficient tricuspid regurgitation jet to estimate RVSP . ?RA pressure is 5-10 mmHg. Left VentricleLeft ventricle size is normal. Normal wall thickness. Normal wall motion. Normal systolic function with a visually estimated EF of 60 - 65%. Normal diastolic function.Right VentricleRight ventricle size is normal. Normal systolic function.Left AtriumLeft atrium size is normal.Right AtriumRight atrium size is normal.Mitral ValveMitral valve structure is normal. Trace transvalvular regurgitation.Tricusp id ValveTricuspid valve structure is normal. Trace transvalvular regurgitation. Insufficient tricuspid regurgitation jet to estimate RVSP . RA pressure is 5-10 mmHg.Aortic ValveAortic valve opens well.Pulmonic ValveNot well visualized. Trace transvalvular regurgitation.Ascendi ng AortaNormal sized aortic root.PericardiumNo pericardial effusion.Study DetailsStudy quality was adequate. A complete echocardiogram was performed using 2D, color flow Doppler and spectral Doppler. Saline contrast was performed. [facility] Urinalysis w/o Specific [id number] 16:59:00* Test Item Value Reference Range Interpretation Comme nts POCT PH U (test code = 3254) 5 mg/dl 5-8 POCT U LEUK EST (test code = 3263) trace Negative - Negative POCT U NIT (test code = 3262) negative Negative - Negati ve POCT U PROT (test code = 3259) trace Negative - Negat nadja POCT U GLU (test code = 3256) 100 Negative - Negati ve POCT U KETONE (test code = 3258) negative Negative - Neg ative POCT U BLD (test code = 3257) 250 Negative - Negati ve [facility] w/o Specific [id number] 16:59:00* Test Item Value Reference Range Interpretation Comme nts POCT PH U (test code = 3254) 5 mg/dl 5-8 POCT U LEUK EST (test code = 3263) trace Negative - Negative POCT U NIT (test code = 3262) negative Negative - Negati ve POCT U PROT (test code = 3259) trace Negative - Negat nadja POCT U GLU (test code = 3256) 100 Negative - Negati ve POCT U KETONE (test code = 3258) negative Negative - Neg ative POCT U BLD (test code = 3257) 250 Negative - Negati ve [facility] WO [id number] 23:16:34EXAM: CT HEAD WO CONTRAST HISTORY: Transient confusion. TECHNIQUE: Axial CT of the head was performed and reconstructed at 5 mmintervals. Coronal and sagittal reformatted images were generated. COMPARISON: CT head without contrast 10/27/2020 FINDINGS: The ventricles and cerebral sulci are normal in caliber and configuration.No midline shift or pathological extra-axial fluid collection is present.The basal cisterns are unremarkable. No acute intracranial hemorrhage or significant mass effect is visualized.No parenchymal attenuation abnormality is seen. The ocampo-white matterdifferentiation is preserved. The mastoid air cells and visualized paranasal air sinuses are clear. Thecalvarium and central skull base are unremarkable.[facility] WITH [id number] 22:07:24* Test Item Value Reference Range Interpretation Comme nts WBC (test code = 6690-2) 9.03 4.30-11.10 RBC (test code = 789-8) 4.37 3.93-5.25 HGB (test code = 718-7) 12.5 g/dL 11.6-15.0 HCT (test code = 4544-3) 37.8 % 35.7-45.2 MCV (test code = 787-2) 86.5 fL 80.6-95.5 MCH (test code = 785-6) 28.6 pg 25.9-32.8 MCHC (test code = 786-4) 33.1 g/dL 31.6-35.1 RDW-SD (test code = 48495-8) 44.1 fL 39.0-49.9 RDW-CV (test code = 788-0) 13.9 % 12.0-15.5 PLT (test code = 777-3) 288 166-358 MPV (test code = 63644-3) 9.7 fL 9.5-12.9 NRBC/100 WBC (test code = 5881661367) 0.0 0.0-10.0 NRBC x10^3 (test code = 0234336490) See_Comment [Automated messa ge] The system which generated this result transmitted reference range: 10*3/?L. The reference range was not used to interpret this result as normal/abnormal. GRAN MAT (NEUT) % (test code = 770-8) 52.1 % IMM GRAN % (test code = 1909220583) 0.30 % LYMPH % (test code = 736-9) 38.0 % MONO % (test code = 5905-5) 7.1 % EOS % (test code = 713-8) 2.1 % BASO % (test code = 706-2) 0.4 % GRAN MAT x10^3(ANC) (test code = 8167290813) 4.70 10*3/uL 1.88-7.09 IMM GRAN x10^3 (test code = 0366999713) 0.03 10*3/uL 0.00-0.06 LYMPH x10^3 (test code = 731-0) 3.43 10*3/uL 1.32-3.29 H MONO x10^3 (test code = 742-7) 0.64 10*3/uL 0.33-0.92 EOS x10^3 (test code = 711-2) 0.19 10*3/uL 0.03-0.39 BASO x10^3 (test code = 704-7) 0.04 10*3/uL 0.01-0.07 Lab Interpretation (test code = 66891-2) Abnormal [facility] METABOLIC PANEL (70076)2023-07-03 22:06:02* Test Item Value Reference Range Interpretation Comme nts NA (test code = 2292461698) 139 mmol/L 135-145 K (test code = 4129142556) 4.0 mmol/L 3.5-5.0 CL (test code = 5854424641) 106 mmol/L 98-108 CO2 TOTAL (test code = 2135646319) 27 mmol/L 23-31 AGAP (test code = 7234789330) 6 2-16 BUN (test code = 4221925369) 9 mg/dL 7-23 GLUCOSE (test code = 2778804454) 91 mg/dL 70-110 CREATININE (test code = 2160-0) 0.58 mg/dL 0.50-1.04 TOTAL BILI (test code = 6644909710) 1.3 mg/dL 0.1-1.1 H CALCIUM (test code = 4055749818) 9.3 mg/dL 8.6-10.6 T PROTEIN (test code = 0975414492) 8.1 g/dL 6.3-8.2 ALBUMIN (test code = 9141251001) 4.5 g/dL 3.5-5.0 ALK PHOS (test code = 1349043013) 85 U/L 34-122 ALTv (test code = 1742-6) 12 U/L 5-35 AST(SGOT) (test code = 7794124613) 20 U/L 13-40 eGFR (test code = 18853-9) 128.2 mL/min/1.73m2 CKD-EPI eGFR (2020). Assuming creatinine has been stable day-to-day for at least three months, the eGFR indicates Category G1 (>= 90 mL/min/1.73 m2) Lab Interpretation (test code = 28646-2) Abnormal [facility] Paso[facility]esium2024-03-13 22:06:02* Test Item Value Reference Range Interpretation Comme nts MAGNESIUM (test code = 1432167704) 1.9 mg/dL 1.7-2.4 Lab Interpretation (test cod e = 63803-9) Normal [facility] GLUCOSE (AUTOMATED)2023-07-03 21:27:22* Test Item Value Reference Range Interpretation Comme nts POCT GLU (test code = 2984659233) 77 mg/dL 70-110 Lab Interpretation (test cod e = 88637-7) Normal [facility] [id number] 21:18:00* Test Item Value Reference Range Interpretation Comme nts POCT PREG (test code = 1605) Negative On board controls acceptable with C Line (test code = 3574) Yes Lab Interpretation (test cod e = 71587-2) Normal [facility] [id number] 12:48:00* Test Item Value Reference Range Interpretation Comme nts POCT PREG (test code = 1605) Negative On board controls acceptable with C Line (test code = 3574) Yes POCT PREG LOT # (test code = 3575) 278622 POCT PREG TEST DATE ( test code = 3576) 06/30/2024 Lab Interpretation (test cod e = 51771-0) [facility] WITH [id number] 04:17:21* Test Item Value Reference Range Interpretation Comme nts WBC (test code = 6690-2) 13.40 See_Comment H [Automated messa ge] The system which generated this result transmitted reference range: 4.30 - 11.10 10*3/?L. The reference range was not used to interpret this result as normal/abnormal. RBC (test code = 789-8) 4.86 See_Comment [Automated localstay[employer]coma ge] The system which generated this result transmitted reference range: 3.93 - 5.25 10*6/?L. The reference range was not used to interpret this result as normal/abnormal. HGB (test code = 718-7) 13.1 g/dL 11.6-15.0 HCT (test code = 4544-3) 40.5 % 35.7-45.2 MCV (test code = 787-2) 83.3 fL 80.6-95.5 MCH (test code = 785-6) 27.0 pg 25.9-32.8 MCHC (test code = 786-4) 32.3 g/dL 31.6-35.1 RDW-SD (test code = 17620-3) 39.8 fL 39.0-49.9 RDW-CV (test code = 788-0) 13.2 % 12.0-15.5 PLT (test code = 777-3) 319 See_Comment [Automated [employer]stay[employer]coma ge] The system which generated this result transmitted reference range: 166 - 358 10*3/?L. The reference range was not used to interpret this result as normal/abnormal. MPV (test code = 07273-4) 9.7 fL 9.5-12.9 NRBC/100 WBC (test code = 9031755468) 0.0 See_Comment [Automated [employer]] The system which generated this result transmitted reference range: 0.0 - 10.0 /100 WBCs. The reference range was not used to interpret this result as normal/abnormal. NRBC x10^3 (test code = 5257590355) See_Comment [[facility]ated [facility]] The system which generated this result transmitted reference range: 10*3/?L. The reference range was not used to interpret this result as normal/abnormal. SEG % (test code = 83321-2) 60 % 33-76 LYMPH % (test code = 77719-3) 32 % 14-54 MONO % (test code = 81482-9) 8 % 0-4 H ANC (test code = 753-4) 8.04 10*3/uL 1.88-7.09 H Lab Interpretation (test code = 95280-0) Abnormal [facility]. METABOLIC PANEL (52998)2022-07-31 03:41:09* Test Item Value Reference Range Interpretation Comme nts NA (test code = 3232331553) 140 mmol/L 135-145 K (test code = 2584121776) 4.0 mmol/L 3.5-5.0 CL (test code = 6989695826) 100 mmol/L 98-108 CO2 TOTAL (test code = 6999428718) 29 mmol/L 23-31 AGAP (test code = 0809674078) 11 2-16 BUN (test code = 7189661478) 14 mg/dL 7-23 GLUCOSE (test code = 1465652235) 98 mg/dL 70-110 CREATININE (test code = 1564125101) 0.68 mg/dL 0.50-1.04 TOTAL BILI (test code = 9759163522) 1.3 mg/dL 0.1-1.1 H CALCIUM (test code = 2422729200) 10.1 mg/dL 8.6-10.6 T PROTEIN (test code = 5578534509) 8.2 g/dL 6.3-8.2 ALBUMIN (test code = 8890361809) 4.8 g/dL 3.5-5.0 ALK PHOS (test code = 3117662363) 77 U/L 34-122 ALTv (test code = 1742-6) 20 U/L 5-35 AST(SGOT) (test code = 2620661771) 21 U/L 13-40 eGFR (test code = 5443231026) 105.4 mL/min/1.73m2 ZAYRA (test code = ZAYRA) [...] imaging tests). Lab Interpretation (test code = 98390-2) [facility]normal [facility] 03:41:09* Test Item Value Reference Range Interpretation Comme nts MAGNESIUM (test code = 5361027221) 1.8 mg/dL 1.7-2.4 Lab Interpretation (test cod e = 41163-8) Normal [facility] [id number] 03:16:00* Test Item Value Reference Range Interpretation Comme nts POCT PREG (test code = 1605) Negative On board controls acceptable with C Line (test code = 3574) Positive POCT PREG LOT # (test code = 3575) [id number] POCT PREG TEST DATE ( test code = 3576) 11/28/2023 Lab Interpretation (test cod e = 22410-4) Normal [facility] [id number] 17:21:00* Test Item Value Reference Range Interpretation Comme nts POCT PREG (test code = 1605) Negative On board controls acceptable with C Line (test code = 3574) Yes POCT PREG LOT # (test code = 3575) POCT PREG TEST DATE ( test code = 3576) [facility] [id number] 17:21:00* Test Item Value Reference Range Interpretation Comme nts POCT PREG (test code = 1605) Negative On board controls acceptable with C Line (test code = 3574) Yes POCT PREG LOT # (test code = 3575) POCT PREG TEST DATE ( test code = 3576) [facility] (D) IMMUNE [id number] 03:32:31* Test Item Value Reference Range Interpretation Comme nts RHIG CANDIDATE? (test code = 5055) No- see comment Patient is not a candidate for RhIg- Patient is Rh Positive.Performed at [facility] Laboratory Services - [facility] Blood [address] [place] [address]Cagr Free: [phone] No. [id number] [facility] (D) IMMUNE [id number] 03:32:31* Test Item Value Reference Range Interpretation Comme nts RHIG CANDIDATE? (test code = 5055) No- see comment Patient is not a candidate for RhIg- Patient is Rh Positive.Performed at [facility] Laboratory Services [facility] Blood [place] [address]Toll Free: [phone] No. [id number] [facility] Paso[facility] and Screen - ONCE [id number] 00:15:31 * Test Item Value Reference Range Interpretation Comme nts ABO & RH (test code = 20) O Positive Performed at [facility] Laboratory [facility] Blood [place] [address]Toll Free: [phone] No. [id number] IAT (test code = 1185) Negative Performed at [facility] Laboratory [facility] Blood [place] [address]Toll Free: [phone] No. [id number] [facility] and Screen - ONCE [id number] 00:15:31 * Test Item Value Reference Range Interpretation Comme nts ABO & RH (test code = 20) O Positive Performed at [facility] Laboratory [facility] Blood [place] [address]Toll Free: [phone] No. [id number] IAT (test code = 1185) Negative Performed at [facility] Blood [place] [address]Toll Free: [phone] No. [id number] [facility] URINALYS[facility] W/O SPECIFIC [id number] 20:54:00* Test Item Value Reference Range Interpretation [...] = 3257) n/a Negative - Negati ve [facility] URINALYSIS W/O SPECIFIC [id number] 15:42:00* Test Item Value Reference Range Interpretation [...] = 3257) n/a Negative - Negati ve [facility] GLUCOSE (AUTOMATED)2022-02-03 21:48:52* Test Item Value Reference Range Interpretation Comme nts POCT GLU (test code = 9632283809) 95 mg/dL 70-110 Lab Interpretation (test cod e = 07590-8) Normal [facility] PasoGAL[facility] ONLY - SYPHILIS IGG/[id number] 15:20:31* Test Item Value Reference Range Interpretation Comme nts Syphilis IgG/IgM (test code = 95413-3) Non-reactive Non-reactive ZAYRA (test code = ZAYRA) Non-reactive - No serologic evidence of T. pallidum infection. Cannot exclude incubating or early syphilis. Submit a second specimen in 2-4 weeks if syphilis is clinically suspected. Equivocal - Further testing to follow. Reactive - Further testing to follow. Lab Interpretation (test code = 32626-7) Normal [facility] Screen - ONCE [id number] 08:06:59 * Test Item Value Reference Range Interpretation Comme nts ABO & RH (test code = 20) O POSITIVE Performed at [facility] Laboratory Services - [facility] Blood [address] [address]Lbbi Free: [phone] No. [id number] IAT (test code = 1185) Negative Performed at [facility] Laboratory Services - [facility] Blood [address] [address]Jjge Free: [phone] No. [id number] [facility] PasoHIV 1/2 AG-AB WITH [id number] 07:40:27* Test Item Value Reference Range Interpretation Comme nts HIV Semi-quantitative (test code = 50470-3) Negative Negative ZAYRA (test code = ZAYRA) Non-reactive for HIV-1 antigen and HIV-1/HIV-2 antibodies. ?No laboratory evidence of HIV infection. ?Repeat in 2-4 weeks if acute HIV infection is suspected. [facility] PasoHEPATITIS B SURFACE [id number] 06:16:55 * Test Item Value Reference Range Interpretation Comme nts HBsAg Semi-Quantitative (amelia t code = 5195-3) Negative Negative [facility] PasoUric Acid [id number] 05:27:07* Test Item Value Reference Range Interpretation Comme nts URIC ACID (test code = 8858684415) 3.6 mg/dL 2.9-6 Lab Interpretation (test cod e = 53875-2) Normal [facility] PasoCOMP. METABOLIC PANEL (23553)2022-02-02 05:27:07* Test Item Value Reference Range Interpretation Comme nts NA (test code = 9402687841) 137 mmol/L 135-145 K (test code = 4777888026) 4.2 mmol/L 3.5-5 CL (test code = 7235009864) 103 mmol/L 98-108 CO2 TOTAL (test code = 5720253412) 26 mmol/L 23-31 AGAP (test code = 4665454909) 2-16 BUN (test code = 6887294546) 5 mg/dL 7-23 L GLUCOSE (test code = 0001729375) 98 mg/dL 70-110 CREATININE (test code = 1429914805) 0.42 mg/dL 0.5-1.04 L TOTAL BILI (test code = 7931228288) 0.9 mg/dL 0.1-1.1 CALCIUM (test code = 5632503846) 9.0 mg/dL 8.6-10.6 T PROTEIN (test code = 9935935976) 6.8 g/dL 6.3-8.2 ALBUMIN (test code = 6531238988) 3.3 g/dL 3.5-5 L ALK PHOS (test code = 3222752055) 141 U/L 34-122 H ALTv (test code = 1742-6) 7 U/L 5-35 AST(SGOT) (test code = 6644691694) 20 U/L 13-40 eGFR (test code = 2102982345) mL/min/1.73m2 ZAYRA (test code = ZAYRA) Association [...] imaging tests). Lab Interpretation (test code = 94562-7) Abnormal [facility] PasoLactate Vbyhqdidkbpvm2464-19-83 05:25:26* Test Item Value Reference Range Interpretation Comme nts LDH (test code = 0895056951) 172 U/L 120-246 Lab Interpretation (test cod e = 52895-9) Normal [facility] PasoCB with Pmvpphjrirrg3795-20-99 05:03:49* Test Item Value Reference Range Interpretation [...] 33.3 g/dL 31.6-35.1 RDW-SD (test code = 95511-4) 41.2 fL 39-49.9 RDW-CV (test code = 788-0) 13.5 % 12-15.5 PLT (test code = 777-3) See_Comment [Automated message] The system which generated this result transmitted reference range: 166 - 358 10*3/?L. The reference range was not used to interpret this result as normal/abnormal. MPV (test code = 11406-7) 10.4 fL 9.5-12.9 NRBC/100 WBC (test code = 0628936913) See_Comment [Automated message] The system which generated this result transmitted reference range: 0.0 - 10.0 /100 WBCs. The reference range was not used to interpret this result as normal/abnormal. NRBC x10^3 (test code = 9609536178) See_Comment [Automated message] The system which generated this result transmitted reference range: 10*3/?L. The reference range was not used to interpret this result as normal/abnormal. GRAN MAT (NEUT) % (test code = 770-8) 74.5 % IMM GRAN % (test code = 8256450051) 0.40 % LYMPH % (test code = 736-9) 16.4 % MONO % (test code = 5905-5) 8.2 % EOS % (test code = 713-8) 0.3 % BASO % (test code = 706-2) 0.2 % GRAN MAT x10^3(ANC) (test code = 1450019169) 11.33 10*3/uL 1.88-7.09 H IMM GRAN x10^3 (test code = 7454106798) 0.06 10*3/uL 0-0.06 LYMPH x10^3 (test code = 731-0) 2.50 10*3/uL 1.32-3.29 MONO x10^3 (test code = 742-7) 1.25 10*3/uL 0.33-0.92 H EOS x10^3 (test code = 711-2) 0.05 10*3/uL 0.03-0.39 BASO x10^3 (test code = 704-7) 0.03 10*3/uL 0.01-0.07 Lab Interpretation (test code = 44420-3) Abnormal [facility] URINALYSIS W/O SPECIFIC [id number] 15:58:00* Test Item Value Reference Range Interpretation [...] = 3257) n/a Negative - Negati ve [facility] URINALYSIS W/O SPECIFIC [id number] 18:13:00* Test Item Value Reference Range Interpretation [...] = 3257) n/a Negative - Negati ve [facility] URINALYSIS W/O SPECIFIC [id number] 14:00:00* Test Item Value Reference Range Interpretation [...] = 3257) n/a Negative - Negati ve [facility] URINALYSIS W/O SPECIFIC [id number] 15:56:00* Test Item Value Reference Range Interpretation [...] = 3257) n/a Negative - Negati ve [facility] URINALYSIS W/O SPECIFIC [id number] 19:19:00* Test Item Value Reference Range Interpretation [...] = 3257) n/a Negative - Negati ve [facility] URINALYSIS W/O SPECIFIC [id number] 18:31:00* Test Item Value Reference Range Interpretation [...] = 3257) N/A Negative - Negati ve [facility] URINALYSIS W/O SPECIFIC [id number] 20:41:00* Test Item Value Reference Range Interpretation [...] = 3257) n/a Negative - Negati ve [facility] URINALYSIS W/O SPECIFIC [id number] 18:15:00* Test Item Value Reference Range Interpretation [...] = 3257) N/A Negative - Negati ve [facility] URINALYSIS W/O SPECIFIC [id number] 19:44:00* Test Item Value Reference Range Interpretation [...] = 3257) n/a Negative - Negati ve [facility] [id number] 19:43:00* Test Item Value Reference Range Interpretation Comme nts POCT PREG (test code = 1605) Positive On board controls acceptable with C Line (test code = 3574) Yes POCT PREG LOT # (test code = 3575) POCT PREG TEST DATE ( test code = 3576) [facility] Test Item Value Reference Range Interpretation Comme nts MAGNESIUM (test code = 1038950570) 1.8 mg/dL 1.7-2.4 Lab Interpretation (test cod e = 97110-2) [facility] 10:38:19* Test Item Value Reference Range Interpretation Comme nts MAGNESIUM (test code = 6579922312) 1.8 mg/dL 1.7-2.4 Lab Interpretation (test cod e = 47925-3) Normal [facility] METABOLIC PANEL (NA, K, CL, CO2, GLUCOSE, BUN, CREATININE, CA)2021-01-14 10:38:18* Test Item Value Reference Range Interpretation Comme nts NA (test code = 6101083809) 139 mmol/L 135-145 K (test code = 7890136935) 4.2 mmol/L 3.5-5.0 CL (test code = 9078523582) 106 mmol/L 98-108 CO2 TOTAL (test code = 1493189257) 27 mmol/L 23-31 AGAP (test code = 7166301160) 2-16 BUN (test code = 2147211434) 8 mg/dL 7-23 GLUCOSE (test code = 7958711893) 103 mg/dL 70-110 CREATININE (test code = 6926108198) 0.61 mg/dL 0.50-1.04 CALCIUM (test code = 0412284072) 9.1 mg/dL 8.6-10.6 eGFR (test code = 7552981471) mL/min/1.73m2 ZARYA (test code = ZAYRA) Association of Glomerular [...] or urine or abnormalities in imaging tests). [facility] METABOLIC PANEL (NA, K, CL, CO2, GLUCOSE, BUN, CREATININE, CA)2021-01-14 10:38:18* Test Item Value Reference Range Interpretation Comme nts NA (test code = 7323626811) 139 mmol/L 135-145 K (test code = 6289199612) 4.2 mmol/L 3.5-5.0 CL (test code = 6259664203) 106 mmol/L 98-108 CO2 TOTAL (test code = 2021206637) 27 mmol/L 23-31 AGAP (test code = 6235389853) 2-16 BUN (test code = 6602793459) 8 mg/dL 7-23 GLUCOSE (test code = 7478195635) 103 mg/dL 70-110 CREATININE (test code = 8352677959) 0.61 mg/dL 0.50-1.04 CALCIUM (test code = 1649571891) 9.1 mg/dL 8.6-10.6 eGFR (test code = 3026110996) mL/min/1.73m2 ZAYRA (test code = ZAYRA) Association [...] or urine or abnormalities in imaging tests). [facility] WITH [id number] 09:44:09* Test Item Value Reference Range Interpretation [...] 32.9 g/dL 31.6-35.1 RDW-SD (test code = 53260-7) 42.0 fL 39.0-49.9 RDW-CV (test code = 788-0) 12.8 % 12.0-15.5 PLT (test code = 777-3) See_Comment [Automated messa ge] The system which generated this result transmitted reference range: 166 - 358 10*3/?L. The reference range was not used to interpret this result as normal/abnormal. MPV (test code = 70595-5) 9.9 fL 9.5-12.9 NRBC/100 WBC (test code = 5795018742) See_Comment [Automated [employer] ssage] The system which generated this result transmitted reference range: 0.0 - 10.0 /100 WBCs. The reference range was not used to interpret this result as normal/abnormal. NRBC x10^3 (test code = 9612556271) <0.01 See_Comment [Automated messa ge] The system which generated this result transmitted reference range: 10*3/?L. The reference range was not used to interpret this result as normal/abnormal. GRAN MAT (NEUT) % (test code = 770-8) 43.4 % IMM GRAN % (test code = 0759585765) 0.30 % LYMPH % (test code = 736-9) 45.6 % MONO % (test code = 5905-5) 8.4 % EOS % (test code = 713-8) 1.9 % BASO % (test code = 706-2) 0.4 % GRAN MAT x10^3(ANC) (test code = 3614707050) 3.14 10*3/uL 1.88-7.09 IMM GRAN x10^3 (test code = 6969259039) <0.03 0.00-0.06 LYMPH x10^3 (test code = 731-0) 3.30 10*3/uL 1.32-3.29 H MONO x10^3 (test code = 742-7) 0.61 10*3/uL 0.33-0.92 EOS x10^3 (test code = 711-2) 0.14 10*3/uL 0.03-0.39 BASO x10^3 (test code = 704-7) 0.03 10*3/uL 0.01-0.07 Lab Interpretation (test code = 16232-6) Abnormal [facility] WITH [id number] 09:44:09* Test Item Value Reference Range Interpretation Comme nts WBC (test code = 6690-2) See_Comment [Automated [employer] ge] The system which generated this result transmitted reference range: 4.30 - 11.10 10*3/?L. The reference range was not used to interpret this result as normal/abnormal. RBC (test code = 789-8) See_Comment [Automated [employer] ge] The system which generated this result [...] 32.9 g/dL 31.6-35.1 RDW-SD (test code = 44139-0) 42.0 fL 39.0-49.9 RDW-CV (test code = 788-0) 12.8 % 12.0-15.5 PLT (test code = 777-3) See_Comment [Automated messa ge] The system which generated this result transmitted reference range: 166 - 358 10*3/?L. The reference range was not used to interpret this result as normal/abnormal. MPV (test code = 89879-6) 9.9 fL 9.5-12.9 NRBC/100 WBC (test code = 3614139879) See_Comment [Automated [employer] ssage] The system which generated this result transmitted reference range: 0.0 - 10.0 /100 WBCs. The reference range was not used to interpret this result as normal/abnormal. NRBC x10^3 (test code = 7811967710) <0.01 See_Comment [Automated [employer] ge] The system which generated this result transmitted reference range: 10*3/?L. The reference range was not used to interpret this result as normal/abnormal. GRAN MAT (NEUT) % (test code = 770-8) 43.4 % IMM GRAN % (test code = 0237518650) 0.30 % LYMPH % (test code = 736-9) 45.6 % MONO % (test code = 5905-5) 8.4 % EOS % (test code = 713-8) 1.9 % BASO % (test code = 706-2) 0.4 % GRAN MAT x10^3(ANC) (test code = 8023776295) 3.14 10*3/uL 1.88-7.09 IMM GRAN x10^3 (test code = 0615517759) <0.03 0.00-0.06 LYMPH x10^3 (test code = 731-0) 3.30 10*3/uL 1.32-3.29 H MONO x10^3 (test code = 742-7) 0.61 10*3/uL 0.33-0.92 EOS x10^3 (test code = 711-2) 0.14 10*3/uL 0.03-0.39 BASO x10^3 (test code = 704-7) 0.03 10*3/uL 0.01-0.07 Lab Interpretation (test code = 09811-1) [facility] / [id number] 19:19:17* Test Item Value Reference Range Interpretation [...] the indications. Lab Interpretation (test code = 95402-0) Abnormal [facility] PasoPROTHROMBIN TIME / [id number] 19:19:17* Test Item Value Reference Range Interpretation [...] the indications. Lab Interpretation (test code = 27416-1) Abnormal [facility] PasoACTIV[facility] PARTIAL THRMPLAS [id number] 10:00:07* Test Item Value Reference Range Interpretation Comme nts APTT Patient (test code = 3173-2) See_Comment [Automated messa ge] The system which generated this result transmitted reference range: 26 - 36 Seconds. The reference range was not used to interpret this result as normal/abnormal. Lab Interpretation (test code = 13965-0) Normal [facility]ACT[facility] PART[facility] THRMPLAS [id number] 10:00:07* Test Item Value Reference Range Interpretation Comme nts APTT Patient (test code = 3173-2) See_Comment [Automated messa ge] The system which generated this result transmitted reference range: 26 - 36 Seconds. The reference range was not used to interpret this result as normal/abnormal. Lab Interpretation (test code = 39366-1) Normal [facility] PasoPROTHROMBIN TIME / [id number] 10:00:06* Test Item Value Reference Range Interpretation Comme claudio CABEZAS PATIENT (test code = 5964-2) See_Comment H [Automated messa ge] The system which generated this result transmitted reference range: 10.1 - 12.6 Seconds. The reference range was not used to interpret this result as normal/abnormal. INR (test code = 6301-6) Normal INR <1.1; Warfarin Therapeutic range 2.0 to 3.0 or 2.5 to 3.5, depending upon the indications. Lab Interpretation (test code = 76690-8) Abnormal [facility] [id number] 07:01:50* Test Item Value Reference Range Interpretation Comments TROPONIN I (test code = 3365726571) 0.000 ng/mL See_Comment [Automated message] The system [...] of biotin. Lab Interpretation (test code = 73531-8) Normal [facility] [id number] 07:01:50* Test Item Value Reference Range Interpretation Comments TROPONIN I (test code = 1854446217) 0.000 ng/mL See_Comment [Automated message] The system [...] of biotin. Lab Interpretation (test code = 20586-9) Normal [facility]2021-09-24 06:23:04* Test Item Value Reference Range Interpretation Comme nts MAGNESIUM (test code = 7235485077) 1.8 mg/dL 1.7-2.4 Lab Interpretation (test cod e = 17389-2) Normal [facility] WITH [id number] 05:05:49* Test Item Value Reference Range Interpretation Comme nts WBC (test code = 6690-2) See_Comment H [Automated [employer]] The system which generated this result transmitted reference range: 4.30 - 11.10 10*3/?L. The reference range was not used to interpret this result as normal/abnormal. RBC (test code = 789-8) See_Comment [Automated [employer]] The system which generated this result transmitted [...] 32.9 g/dL 31.6-35.1 RDW-SD (test code = 75607-0) 41.5 fL 39.0-49.9 RDW-CV (test code = 788-0) 12.8 % 12.0-15.5 PLT (test code = 777-3) See_Comment [Automated messa ge] The system which generated this result transmitted reference range: 166 - 358 10*3/?L. The reference range was not used to interpret this result as normal/abnormal. MPV (test code = 36739-9) 9.9 fL 9.5-12.9 NRBC/100 WBC (test code = 4300890037) See_Comment [Automated [employer] ssage] The system which generated this result transmitted reference range: 0.0 - 10.0 /100 WBCs. The reference range was not used to interpret this result as normal/abnormal. NRBC x10^3 (test code = 1184722223) <0.01 See_Comment [Automated messa ge] The system which generated this result transmitted reference range: 10*3/?L. The reference range was not used to interpret this result as normal/abnormal. GRAN MAT (NEUT) % (test code = 770-8) 44.8 % IMM GRAN % (test code = 4817064833) 0.20 % LYMPH % (test code = 736-9) 45.7 % MONO % (test code = 5905-5) 7.8 % EOS % (test code = 713-8) 1.2 % BASO % (test code = 706-2) 0.3 % GRAN MAT x10^3(ANC) (test code = 9375867086) 5.32 10*3/uL 1.88-7.09 IMM GRAN x10^3 (test code = 9289956289) <0.03 0.00-0.06 LYMPH x10^3 (test code = 731-0) 5.41 10*3/uL 1.32-3.29 H MONO x10^3 (test code = 742-7) 0.93 10*3/uL 0.33-0.92 H EOS x10^3 (test code = 711-2) 0.14 10*3/uL 0.03-0.39 BASO x10^3 (test code = 704-7) 0.03 10*3/uL 0.01-0.07 Lab Interpretation (test code = 04856-5) Abnormal [facility]. METABOLIC PANEL (24367)2021-01-13 04:51:47* Test Item Value Reference Range Interpretation Comme nts NA (test code = 9021555572) 142 mmol/L 135-145 K (test code = 7473322896) 4.1 mmol/L 3.5-5.0 CL (test code = 1962468154) 103 mmol/L 98-108 CO2 TOTAL (test code = 3785080236) 28 mmol/L 23-31 AGAP (test code = 8371258638) 2-16 BUN (test code = 9859990633) 8 mg/dL 7-23 GLUCOSE (test code = 7950332580) 100 mg/dL 70-110 CREATININE (test code = 3166419660) 0.67 mg/dL 0.50-1.04 TOTAL BILI (test code = 6150829985) 0.9 mg/dL 0.1-1.1 CALCIUM (test code = 9533562712) 9.8 mg/dL 8.6-10.6 T PROTEIN (test code = 6424227993) 7.9 g/dL 6.3-8.2 ALBUMIN (test code = 1116622079) 4.6 g/dL 3.5-5.0 ALK PHOS (test code = 4315407798) 81 U/L 34-122 ALTv (test code = 1742-6) 14 U/L 5-35 AST(SGOT) (test code = 2327665720) 18 U/L 13-40 eGFR (test code = 9464196697) mL/min/1.73m2 ZAYRA (test code = ZAYRA) Association [...] or urine or abnormalities in imaging tests). [facility]. METABOLIC PANEL (86174)2021-01-13 04:51:47* Test Item Value Reference Range Interpretation Comme nts NA (test code = 6953152702) 142 mmol/L 135-145 K (test code = 9452728174) 4.1 mmol/L 3.5-5.0 CL (test code = 4722865708) 103 mmol/L 98-108 CO2 TOTAL (test code = 0017691355) 28 mmol/L 23-31 AGAP (test code = 2165898856) 2-16 BUN (test code = 0825903607) 8 mg/dL 7-23 GLUCOSE (test code = 7055219475) 100 mg/dL 70-110 CREATININE (test code = 0022071958) 0.67 mg/dL 0.50-1.04 TOTAL BILI (test code = 6465930396) 0.9 mg/dL 0.1-1.1 CALCIUM (test code = 6172088279) 9.8 mg/dL 8.6-10.6 T PROTEIN (test code = 8678503682) 7.9 g/dL 6.3-8.2 ALBUMIN (test code = 5892042072) 4.6 g/dL 3.5-5.0 ALK PHOS (test code = 8453993098) 81 U/L 34-122 ALTv (test code = 1742-6) 14 U/L 5-35 AST(SGOT) (test code = 4174006861) 18 U/L 13-40 eGFR (test code = 3434427095) mL/min/1.73m2 ZAYRA (test code = ZAYRA) Association [...] or urine or abnormalities in imaging tests). [facility]PO[facility] [id number] 07:22:00* Test Item Value Reference Range Interpretation Comme nts POCT PREG (test code = 1605) Negative On board controls acceptable with C Line (test code = 3574) Present POCT PREG LOT # (test code = 3575) [id number] POCT PREG TEST DATE ( test code = 3576) 04/21/2022 Lab Interpretation (test cod e = 67683-0) Normal [facility] Notes Date/Time Note Provider Source 2023-11-28 23:45:00 [facility] ([facility]) EMERGENCY PROVIDER REPORT REPORT#:[id number] REPORT STATUS: Signed DATE:11/28/23 TIME: 2344 PATIENT: ALLIE MARTIN UNIT #: [id number] ROOM/BED: AGE: 28 SEX: F PCP PHYS: Danyell Arvizu MD SERVICE AUTHOR: Yves Membreno MACHINE VENEER REPAIRER * ALL edits or amendments must be made on the electronic/computer document * Yves Membreno 11/28/23 2345: HPI-Dizziness/Weakness Free Text HPI Notes Free Text HPI Notes 28-year-old female for evaluation of dizziness and neck pain. Patient reports dizziness started about 2 months ago and patient was evaluated by neurologist and discharged home without any treatment or medication. Patient reports neck pain 3 out of 10 that is treated with ibuprofen and little relief. Patient reports past medical history of neck injury about 10 years ago and has on and off flares of increased pain. Patient denies any recent falls or injuries. Patient reports the dizziness is worsened with head movements. Patient denies any vomiting, but reports nausea with head movement. General Confirmed Patient Yes Patient Type New patient Initial Greet Date/Time 11/28/232136 Presentation Chief Complaint Dizzy, Vertigo Risk-Dizziness/Weakness Risk Stratification NIH Stroke Scale NIH Stroke Scale Response Value NIHSS Applicable? No 0 Total 0 Review of Systems ROS Statements All systems rev neg except as marked. Focused Review of Systems Neurologic Reports: Dizziness. Additional Review of Systems Musculoskeletal Reports: Neck pain. Past Medical History - Adult Stated Complaint NECK PAIN X 2 DAYS Allergies Coded Allergies: No Known Allergies (08/01/15) Home Medications Reported Medications PNV WITH FE FUMARATE/FA () 1 TAB PO DAILY Calculated Suicide Risk (nurs) No risk Review of Nursing Notes Triage notes reviewed, Rapid assess notes rev Pt reports no significant: Past medical history, Past surgical history Smoking status for patients 13 years old or older: Never Smoker Physical Exam Vital Signs Vital Signs First Documented: Result Date Time B/P 155/99 11/27 2013 B/P Mean 117 11/27 2013 O2 Delivery Room air 11/27 2013 Temp 98.2 11/27 2013 Pulse 93 11/27 2013 Resp 16 11/27 2013 Pulse Ox 99 11/28 015 Last Documented: Result Date Time Pulse Ox 99 11/28 0156 B/P 148/78 11/29 155 B/P Mean 101 11/29 155 O2 Delivery Room air 11/29 155 Pulse 87 11/28 0156 Resp 16 11/29 155 Temp 98.2 11/27 2013 Review of Vital Signs Reviewed Focused PE General/Const General/Const Awake, Alert, No acute distress, Cooperative MS Head Head Atraumatic, Normocephalic Resp/Chest Respiratory/Chest Atraumatic, Breath sounds NL, Breath sounds = bilat, No respiratory distress, No wheezing, No retractions Cardiovascular Cardiovascular Heart rate NL, Regular rhythm, Heart sounds NL, Cap refill not delayed, Peripheral circulation NL Abdomen/GI Abdomen/GI Atraumatic, Soft, Non-tender, BS normoactive MS Back Back Atraumatic, Inspection NL, Full range of motion, Painless range of motion, Non-tender, No midline vertebral tend, No paraspinal tenderness, No muscle spasm Skin Skin Atraumatic, Color NL, No rash, Warm, Dry, Intact Neurologic Neurologic Oriented X3, Speech NL, No motor deficits, No sensory deficits Interpretation Diagnostics Lab Results Interpretation Results Laboratory Tests 11/28/23 2231: [Embedded Image Not Available] Laboratory Tests: 11/27 11/27 2337 2231 Chemistry Sodium (134 - 147 mEq/L) 142 Potassium (3.4 - 5.0 mEq/L) 3.8 Chloride (100 - 108 mEq/L) 107 Carbon Dioxide (21 - 33 mEq/l) 30 Anion Gap (0 - 20) 9 BUN (7 - 25 mg/dL) 6 L Creatinine (0.6 - 1.3 mg/dL) 0.7 Glomerular Filtr Rate (110 - 120) 122.3 H Glucose (77 - 141 mg/dL) 106 Calcium (8.0 - 10.5 mg/dL) 9.0 Troponin I High Sens (0 - 34 ng/L) < 3 Hematology WBC (4.5 - 11.0 x10 3/uL) 13.1 H RBC (3.54 - 5.02 x10 6/uL) 4.37 Hgb (11.0 - 15.0 g/dL) 12.1 Hct (33.0 - 45.0 %) 38.0 MCV (81.0 - 99.0 fL) 87.0 MCH (27.0 - 33.0 pg) 27.7 MCHC (33.0 - 37.0 g/dL) 31.8 L RDW (11.5 - 14.5 %) 13.5 Plt Count (150 - 400 x10 3/uL) 309 MPV (7.0 - 9.0 fL) 9.7 H Neut % (Auto) (56.0 - 77.0 %) 54.5 L Lymph % (Auto) (14.0 - 32.0 %) 37.4 H Crane % (Auto) (4.8 - 9.0 %) 6.7 Eos % (Auto) (0.3 - 3.7 %) 1.0 Baso % (Auto) (0.0 - 2.0 %) 0.2 Neut # (Auto) (2.0 - 7.6 x10 3/uL) 7.12 Lymph # (Auto) (1.0 - 3.8 x10 3/uL) 4.90 H Crane # (Auto) (0.1 - 0.8 x10 3/uL) 0.88 H Eos # (Auto) (0.0 - 0.2 x10 3/uL) 0.13 Baso # (Auto) (0.0 - 0.2 x10 3/uL) 0.03 Abs Immat Gran (auto) (0.00 - 0.03 x10 3/uL) 0.03 Add Manual Diff NO Immature Gran % (0.0 - 2.0 %) 0.2 Nucleated RBC % (0 - 0 %) 0.0 Nucleated RBCs # (Man) (0.0 - 0.1 x10 3/uL) 0.00 Urines Urine Color (YEL/STRAW) YELLOW Urine Appearance (CLEAR) CLEAR Urine pH (5.0 - 7.0) 5.0 Ur Specific [place] (1.005 - 1.030) 1.009 Urine Protein (NEGATIVE) NEGATIVE Urine Glucose (UA) (NEGATIVE) NEGATIVE Urine Ketones (NEGATIVE) NEGATIVE Urine Blood (NEGATIVE) NEGATIVE Urine Nitrite (NEGATIVE) NEGATIVE Urine Bilirubin (NEGATIVE) NEGATIVE Urine Urobilinogen (0.2 - 1.0 mg/dL) 0.2 Ur Leukocyte Esterase (NEGATIVE) NEGATIVE Urine RBC (0 - 3 RBC/HPF) 0-3 Urine WBC (0 - 3 WBC/HPF) 0-3 Ur Squamous Epith Cells (NONE SEEN /HPF) 0-5 Urine Bacteria (NONE SEEN /HPF) 1+ H Urine Mucus (NONE SEEN /LPF) TRACE Recent Impressions: RADIOLOGY - XR C-SPINE 2-3 VIEWS 11/27 2028 Report Impression - Status: SIGNED Entered: 11/28/20232112 IMPRESSION: No acute bony abnormality. Impression By: [email or web address] - Michele Mandel M.D. CAT SCAN - CT HEAD/BRAIN W/O CONT 11/29 47 Report Impression - Status: SIGNED Entered: 11/29/2023 0103 IMPRESSION: Unremarkable CT examination of the brain without contrast Impression By: [email or web address] - Lisa Baker M.D. Lab Imaging Statement Laboratory radiographic studies reviewed and considered in the medical decision-making. Point of Care Testing Pulse Oximetry Pulse Ox % 99 On: Room air Interpretation Interpreted by me, Pulse oximetry normal Time 0156 Re-Evaluation MDM Free Text MDM Notes Free Text MDM Notes 28-year-old female for evaluation of neck pain and dizziness. CBC and CMP unimpressive. Urinalysis negative for any leukocytes or nitrates. X-ray of C-spine negative for any fractures, malalignments, or subluxations. CT scan of head negative for any abnormalities. Patient treated in the ED with meclizine and Zofran as well as a liter of fluids with mild improvement of symptoms. Patient able to ambulate without assistance. Plan is to discharge patient home with follow-up to see neurology or neurosurgeon. Patient discharged home with meclizine and muscle relaxants for neck pain. Re-Evaluation/Progress #1 Time of Re-Eval 2300 Re-Eval Status Unchanged Plan Post Re-Eval Additional diag testing, Additional imaging Re-Evaluation/Progress #2 Time of Eval 0100 Re-Eval Status Improved Plan Post Re-Eval Plan discharge ED Course Medication(s) Ordered Medication(s) Ordered: Central Nervous System Agents Sig/Phill Start time Last Medication Dose Route Stop Time Status Admin Ibuprofen 800 MG X1ED STA 11/28 2011 DC 11/27 PO 11/27 2012 2332 Electrolytic, Caloric, And Abel Sig/Phill Start time Last Medication Dose Route Stop Time Status Admin Sodium Chloride 1,000 ML X1ED STA 11/276 DC 11/27 IV 11/27 215 2332 Gastrointestinal Drugs Sig/Phill Start time Last Medication Dose Route Stop Time Status Admin Ondansetron HCl 4 MG X1ED STA 11/28 0040 DC 11/28 IV 11/28 0041 0109 Meclizine HCl 50 MG X1ED STA 11/28 2155 DC 11/27 PO 11/27 2156 2332 Differential Diagnosis )( Differential Diagnosis Acute coronary syndrome, Dehydration, Electrolyte disorder, Heat stroke, Vertigo, central, Vertigo, peripheral Patient Discharge Departure Vital Signs/Condition Vital Signs First Documented: Result Date Time B/P 155/99 11/27 2013 B/P Mean 117 11/27 2013 O2 Delivery Room air 11/27 2013 Temp 98.2 11/27 2013 Pulse 93 11/27 2013 Resp 16 11/27 2013 Pulse Ox 99 11/28 015 Last Documented: Result Date Time Pulse Ox 99 11/28 0156 B/P 148/78 11/29 155 B/P Mean 101 11/28 0156 O2 Delivery Room air 11/28 015 Pulse 87 11/28 0156 Resp 16 11/286 Temp 98.2 11/27 2013 All vital signs available at the time of this entry have been reviewed. Condition Stable Clinical Impression Clinical Impression Primary Impression: Neck pain Secondary Impressions: Dizziness Disposition Decision Discharge )( Discharged to Home Yes )( Time 0129 )( Date 11/29/23 Discharge/Care Plan Counseled Regarding Diagnosis, Lab results, Imaging studies, Prescriptions, Need for follow-up, When to return to ED (Auto) Prescriptions Current Visit Scripts methocarbamoL (ROBAXIN) 500 MG PO TID methocarbamoL (ROBAXIN) 500 MG PO TID #30 TABS MECLIZINE 25 MG PO TID PRN PRN VERTIGO/DIZZINESS MECLIZINE 25 MG PO TID PRN PRN VERTIGO/DIZZINESS #60 TABS Prescriptions Reviewed Risks, Benefits Patient Instructions ED Dizziness, Uncertain Cause Discharge Note I have spoken with the patient and/or caregivers. I have explained the patient's condition, diagnoses and treatment plan based on the information available to me at this time. I have answered the patient's and/or caregiver's questions and addressed any concerns. The patient and/or caregivers have as good an understanding of the patient's diagnosis, condition and treatment plan as can be expected at this point. The vital signs have been stable. The patient's condition is stable and appropriate for discharge from the emergency department. The patient will pursue further outpatient evaluation with the primary care physician or other designated or consulting physician as outlined in the discharge instructions. The patient and/or caregivers are agreeable to this plan of care and follow-up instructions have been explained in detail. The patient and/or caregivers have received these instructions in written format and have expressed an understanding of the discharge instructions. The patient and/or caregivers are aware that any significant change in condition or worsening of symptoms should prompt an immediate return to this or the closest emergency department or a call to 911. Gabriele Houston 12/18/23 2251: Patient Discharge Departure Discharge/Care Plan Referrals Provider Referral: Tj Cole MD Address: [address] [place] [address] [address] [place] [address] Provider Referral: Katelynn Nettles MD Address: [address] [facility] [address] [place] [address] Supervising Physician Note MidLv Saw Pt Alone I have reviewed the PA/MACHINE VENEER REPAIRER's note and plan of care. I was available for consultation as needed at all times during the patient's visit in the emergency department. I agree with the clinical impression, plan and disposition. at 2321 at 2252 RPT #:[id number] END OF REPORT [facility] 2023-10-23 14:30:00 Images from the original note were not included. Venipuncture collection performed by clean technique on the right anticubitus. Total of 1 attempts were made. Slight pressure and a bandage/dressing were applied to the site(s). The patient experienced no complications. The following specimens were processed according to instructions and sent to [facility] laboratories per lab order on 10/23/2023 : LT BLUE SST RED 2RST LAV 1 PPT DK GREEN (LiHep) 1 DK GREEN (SodH) OCAMPO DK BLUE (K2) DK BLUE (S) ACD Blood Culture NIPT/NTD [facility] 2023-09-10 13:45:00 Images from the original note were not included. Venipuncture collection performed by clean technique on the right anticubitus. Total of 1 attempts were made. Slight pressure and a bandage/dressing were applied to the site(s). The patient experienced no complications. The following specimens were processed according to instructions and sent to [facility] laboratories per lab order on 09/10/2023 : LT BLUE SST 1 RED LAV PPT DK GREEN (LiHep) DK GREEN (SodH) OCAMPO DK BLUE (K2) DK BLUE (S) ACD Blood Culture NIPT/NTD [facility] 2023-09-07 10:35:58 Done! [facility] 2023-09-05 15:07:41 Please review, complete, and sign if appropriate. Elena Salazar LVN [facility] 2023-09-05 14:56:58 Allie Martin is a 28 year old female Patient is calling requesting a referral for cardiology. Patient previously seen in [facility] but wants to go to [facility] location. Please contact pt [phone] (home) Iveth Arnold [facility] 2023-08-29 10:45:00 Images from the original note were not included. Venipuncture collection performed by clean technique on the right anticubitus. Total of 1 attempts were made. Slight pressure and a bandage/dressing were applied to the site(s). The patient experienced no complications. The following specimens were processed according to instructions and sent to [facility] laboratories per lab order on 08/29/2023 : LT BLUE SST 3 RED LAV 2 PPT DK GREEN (LiHep) DK GREEN (SodH) OCAMPO DK BLUE (K2) DK BLUE (S) ACD Blood Culture NIPT/NTD 1 lt green [facility] 2023-07-19 08:12:39 Rx sent for diflucan [facility] 2023-07-03 18:47:14 PT D/C home. GCS15, VS stable. Given D/C paperwork. Pt ambulatory at time of discharge. Pt educated on med usage, follow up care, s/s worsening condition, need for hydration. Pt verbalized understanding. Pt ambulated from Ed in NAD [facility] 2023-07-03 15:50:36 Pt just left ED with her daughter after her daughter was d/c. Pt states when she got to the pharmacy to chart picker meds she had a moment where she felt confused. Pt reports having right eye pressure. Pt A&OX4, VSS. NAD T Kriss Motley RN [facility] 2023-06-14 00:10:27 Pt discharged with diagnosis of scalp pain. Printed and verbal instructions reviewed with and given to pt. Prescriptions given x 0. Pt verbalized understanding of teaching, and recommended follow-up. Denies questions or concerns at this time. Pt ambulatory at discharge. Appears in no apparent distress. No ataxia noted. AND DAM REPAIRER Nataly Barger RN [facility] 2023-06-13 23:20:51 Patient arrived ambulatory to ED c/o knot to back of head that she noticed today. Patient denies any trauma to that area. States it is sore and hurts to touch. Patient also has a left sided swollen lymph node on neck and states yesterday BLE "danelle horses." No medications taken R D MANAGER. AND DAM REPAIRER Miriam Medina RN [facility] 2023-05-11 08:24:20 Pt given discharge instructions on nauseous. Given prescription X 1 for zofran. Pt advised to follow up with Gastroenterology and pcp. Pt left ER ambulatory. No signs of distress. IE Arias RN [facility] 2023-05-11 07:02:36 Addendum: Pt signed out to me by Dr. Sloan. 28 yo F c/o RUQ abdominal pain. Awaiting lab & CT results. Plan is pending. Will follow. Labs & Imaging (Reviewed by me): Hospital Encounter on 05/11/23 CT ABDOMEN PELVIS W CONTRAST Narrative EXAM: CT ABDOMEN/PELVIS WITH CONTRAST HISTORY: Epigastric pain . Patient presenting with pain to the mid chest area that radiates to the epigastric area and back after she eats. White count elevated at 12.5 thousand. COMPARISON: None TECHNIQUE AND FINDINGS: Contiguous axial imaging from the level of the lung bases through the proximal thighs was performed after the administration of intravenous contrast. Coronal and sagittal reconstructions were obtained. FINDINGS: LOWER THORAX: The lungs bases are clear. No cardiomegaly. A tiny hiatal hernia is present. LIVER: No focal hepatic lesions. Normal contour. GALLBLADDER AND BILIARY TREE: No biliary ductal dilation. No gallbladder wall thickening. SPLEEN: Splenomegaly measuring 14 cm in AP diameter. PANCREAS: No ductal dilation or masses. ADRENAL GLANDS: No adrenal nodules. KIDNEYS: Bilateral symmetrical enhancement. No hydronephrosis, stones, or masses. GI TRACT: No dilation or wall thickening. The appendix is normal (2:77) PELVIS/BLADDER: Unremarkable. PERITONEUM AND RETROPERITONEUM: No free air. Trace free fluid in the pelvis, likely physiologic. LYMPH NODES: No lymphadenopathy. VESSELS: The right hepatic artery originates directly from the abdominal aorta. BONES AND SOFT TISSUES: No suspicious lytic or sclerotic bony lesions. Impression 1. No acute abdominal or pelvic abnormality. 2. Splenomegaly. 3. Tiny hiatal hernia. 4. In the case of future surgical planning, the right hepatic artery originates directly from the abdominal aorta, anatomic variant. Preliminary Report Dictated by Resident: Taylor Abdi Recent Results (from the past 24 hour(s)) Cbc with Diff Collection Time: 05/11/23 6:34 AM Result Value Ref Range WBC 12.49 (H) 4.30 - 11.10 10*3/?L RBC 4.40 3.93 - 5.25 10*6/?L HGB 12.6 11.6 - 15.0 g/dL HCT 37.6 35.7 - 45.2 % MCV 85.5 80.6 - 95.5 fL MCH 28.6 25.9 - 32.8 pg MCHC 33.5 31.6 - 35.1 g/dL RDW-SD 42.1 39.0 - 49.9 fL RDW-CV 13.5 12.0 - 15.5 % PLT 305 166 - 358 10*3/?L MPV 10.1 9.5 - 12.9 fL NRBC/100 WBC 0.0 0.0 - 10.0 /100 WBCs NRBC x10 3 <0.01 10*3/?L GRAN MAT (NEUT) % 56.2 % IMM GRAN % 0.30 % LYMPH % 33.5 % MONO % 8.5 % EOS % 1.1 % BASO % 0.4 % GRAN MAT x10 3 (ANC) 7.02 1.88 - 7.09 10*3/uL IMM GRAN x10 3 0.04 0.00 - 0.06 10*3/uL LYMPH x10 3 4.18 (H) 1.32 - 3.29 10*3/uL MONO x10 3 1.06 (H) 0.33 - 0.92 10*3/uL EOS x10 3 0.14 0.03 - 0.39 10*3/uL BASO x10 3 0.05 0.01 - 0.07 10*3/uL Comp. Metabolic Panel (03070) Collection Time: 05/11/23 6:34 AM Result Value Ref Range NA 141 135 - 145 mmol/L K 3.8 3.5 - 5.0 mmol/L CL 105 98 - 108 mmol/L CO2 TOTAL 28 23 - 31 mmol/L AGAP 8 2 - 16 BUN 12 7 - 23 mg/dL GLUCOSE 102 70 - 110 mg/dL CREATININE 0.59 0.50 - 1.04 mg/dL TOTAL BILI 1.0 0.1 - 1.1 mg/dL CALCIUM 9.4 8.6 - 10.6 mg/dL T PROTEIN 8.2 6.3 - 8.2 g/dL ALBUMIN 4.6 3.5 - 5.0 g/dL ALK PHOS 92 34 - 122 U/L ALTv 14 5 - 35 U/L AST(SGOT) 18 13 - 40 U/L eGFR 127.7 mL/min/1.73m2 Lipase Collection Time: 05/11/23 6:34 AM Result Value Ref Range LIPASE 53 0 - 220 U/L Urinalysis Collection Time: 05/11/23 6:44 AM Result Value Ref Range APPEARANCE Hazy (A) Clear COLOR Yellow Yellow PH 5.0 4.8 - 8.0 SP GRAVITY 1.011 1.003 - 1.030 GLU U QUAL Normal Normal BLOOD 1+ (A) Negative KETONES Negative Negative PROTEIN Negative Negative UROBILIN Normal Normal BILIRUBIN Negative Negative NITRITE Negative Negative LEUK EVELIA 75/uL (A) Negative RBC/HPF 1 0 - 3 HPF WBC/HPF 4 0 - 5 HPF BACTERIA Many (A) Negative MUCOUS Slight (A) Negative LPF AMORPHOUS Rare Rare HPF SQ EPITH 4 HPF POCT Test Collection Time: 05/11/23 6:48 AM Result Value Ref Range POCT PREG Negative On board controls acceptable with C Line Yes POCT PREG LOT # [id number] POCT PREG TEST DATE 06/30/2024 ED Course: ED Course as of 05/11/23 0816 Sat May 11, 2023 0815 Cbc with Diff(!) Diff shows mild lymphocytosis [LS] 0804 The patient is feeling better. Labs and other paperwork from [facility] reviewed. WBCs are essentially the same today. Bilirubin has decreased to within normal limits. The patient states she has no PCP or GI follow-up, only cardiology for the sinus tachycardia. Will refer to family medicine clinic and GI for follow-up. Will discharge home on OTC Pepcid daily and prescription for Zofran and ODT as needed for nausea. King diet. Return precautions given. [LS] 0804 Per lab, slide staining now for diff [LS] 0801 Urinalysis(!) No evidence of UTI [LS] 0738 Patient continues to have a mild leukocytosis but her bilirubin is now within normal limits. The CT shows no evidence of cholecystitis or other etiology consistent with her pain. UA & diff pending. [LS] 0737 CT ABDOMEN PELVIS W CONTRAST IMPRESSION 1. No acute abdominal or pelvic abnormality. 2. Splenomegaly. 3. Tiny hiatal hernia. 4. In the case of future surgical planning, the right hepatic artery originates directly from the abdominal aorta, anatomic variant. Preliminary Report Dictated by Resident: Taylor Abdi [LS] ED Course User Index [LS] Caity Pedraza MD Diagnosis/Impression as of 05/11/23 0816 Epigastric pain Leukocytosis, unspecified type Nausea Results & plan discussed with pt, who agrees & understands. Diagnosis: ICD-10-CM 1. Epigastric pain R10.13 2. Leukocytosis, unspecified type D72.829 3. Nausea R11.0 Plan: ED Disposition ED Disposition Disch - Home Condition Stable Comment -- Contact information for follow-up [facility] [address] [place] [address], [address] [facility] [id number] Instructions: As needed Patient's Medications START taking these medications ONDANSETRON 4 MG DISINTEGRATING TABLET Take 1 tablet by mouth every 8 (eight) hours as needed for Nausea and Vomiting (N/V). CONTINUE taking these medications which have NOT CHANGED AMPHETAMINE-DEXTROAMPHETAMINE 30 MG 24 HR CAPSULE TAKE 1 CAPSULE BY MOUTH IN THE MORNING MEMANTINE (NAMENDA) 5 MG TABLET Take 2 tablets by mouth in the morning and 2 tablets in the evening. START taking Modified Medications as Prescribed No medications on file STOP taking these medications No medications on file Caity Pedraza M.D., [facility] Mine Safety Manager Clinical Professor of Emergency Medicine Caity Pedraza MD 05/11/23 0816 [facility] 2023-05-11 06:27:39 Pt states on and off for the last week she has been having pain to the mid chest area that radiates to the epigastric area and to the back after she eats. Pt was seen last Saturday at [facility] and with sinus tachycardia. Pt denies any N/V/D. AND DAM REPAIRER Grace Rubin RN [facility]
[2023-12-21 02:19] LABS: Specific Gravity 1.025 (1.005-1.030)
[2023-12-21 02:21] LABS: Absolute Eosinophils 0.2 K/uL (0-0.5); Absolute Lymphocytes (CBC) 4.2 K/uL (0.7-4.9); Absolute Monocytes 0.8 K/uL (0.1-1.3); Absolute Neutrophil 5.3 K/uL (1.8-8.0); Basophils % 0.3 % (0-1.3); Eosinophils % 1.5 % (0-4.4); Hematocrit 36.8 % (36.0-45.0); Hemoglobin 11.9 g/dL (12.0-15.0); Lymphocytes % 40.3 % (15.3-44.8); MCH 27.4 pg (27.0-35.0); MCHC 32.4 g/dL (32.0-36.0); MCV 84.6 fL (80-100); MPV 8.3 fL (7.6-11.3); Monocytes % 7.4 % (3.3-12.3); Neutrophils % 50.5 % (41.7-73.7); Platelets 306 thou/uL (152-406); RBC Red Blood Cell Count 4.36 M/uL (3.86-4.86); Red Cell Distribution Width 14.2 % (12.1-15.2)
[2023-12-21 02:23] LABS: Specific Gravity 1.025 (1.005-1.030); Urine Bacteria None Seen /HPF (<20); Urine Bilirubin NEGATIVE (Negative); Urine Blood Trace (Negative); Urine Clarity Extremely Turbid (Clear); Urine Color Light-Yellow (Yellow); Urine Culture Reflex Order NOT NEEDED; Urine Glucose NEGATIVE (Negative); Urine Ketones NEGATIVE (Negative); Urine Microscopic Reflex YN ORDER UMIC; Urine Nitrite NEGATIVE (Negative); Urine Protein TRACE (Negative); Urine RBC None Seen /HPF (None Seen); Urine Urobilinogen 1+ (Normal); Urine WBC <5 /HPF (<5); Urine pH 6.5 (5.0-7.0)
[2023-12-21] MEDS ORDERED: DIPHENHYDRAMINE 50 MG/ML VIAL ONE (02:28)
[2023-12-21] MEDS ORDERED: METOCLOPRAMIDE 10 MG/2mL INJ ONE (02:28)
[2023-12-21] MEDS ORDERED: KETOROLAC 30 MG/ML INJ ONE (02:28)
[2023-12-21] MEDS ORDERED: NA CHLORIDE 0.9% 1,000 ML ONE (02:29)
[2023-12-21] MEDS ORDERED: NA CHLORIDE 0.9% 50 ML ONE (02:30)
[2023-12-21 02:31] LABS: Albumin 3.7 g/dL (3.4-5.0); Anion Gap 7.4 mEq/L (5.0-15.0); Bilirubin Total 1.5 mg/dL (0.2-1.0); Globulin 3.8 g/dL (2.3-3.5); Potassium 3.4 mEq/L (3.5-5.1); Protein, Total 7.5 g/dL (6.4-8.2)
--- NOTE | 2023-12-21 05:07 | ER ---
Nurse's Notes [facility] Name: Allie Hedrick Age: 28 yrs Sex: Female : 1995 Arrival Date: 12/21/2023 Time: 00:41 Bed 5 Private MD: Diagnosis: Tension-type headache Presentation: 12/20 01:04 Chief complaint: Patient states: pressure behind eyes radiates down face and pressure vc1 in eardrums and vision blurry. Coronavirus screen: Client denies travel out of the [place] in the last 14 days. At this time, the client does not indicate any symptoms associated with coronavirus-19. Ebola Screen: Patient negative for fever greater than or equal to 101.5 degrees Fahrenheit, and additional compatible Ebola Virus Disease symptoms Patient denies exposure to infectious person. Patient denies travel to an Ebola-affected area in the 21 days before illness onset. No symptoms or risks identified at this time. Initial Sepsis Screen: Does the patient meet any 2 criteria? No. Patient's initial sepsis screen is negative. Does the patient have a suspected source of infection? No. Patient's initial sepsis screen is negative. Risk Assessment: Do you want to hurt yourself or someone else? Patient reports no desire to harm self or others. Onset of symptoms was December 20, 2023 at 19:00. Care prior to arrival: Medication(s) given: Tylenol, 1000 mg, 1930 2 Excedrin around midnight. 01:04 Method Of Arrival: Ambulatory vc1 01:04 Acuity: [facility] 4 vc1 BUNDLE BREAKER: 01:07 LMP 11/22/2023, unknown vc1 Historical: - Allergies: 01:06 No Known Allergies; vc1 - Home Meds: 01:06 None [Active]; vc1 - PMHx: 01:06 adhd; AFIB; Anxiety; vc1 - PSHx: 01:06 section; vc1 - Immunization history:: Client reports having NOT received the Covid vaccine. - Infectious Disease History:: Denies. - Social history:: Smoking status: Patient denies any tobacco usage or history of. - Family history:: not pertinent. Screenin:07 Abuse screen: Denies threats or abuse. Nutritional screening: No deficits noted. vc1 Tuberculosis screening: No symptoms or risk factors identified. 02:50 [facility] Fall Risk Assessment (Adult) History of falling in the last 3 months, mt4 including since admission No falls in past 3 months (0 pts) Confusion or Disorientation No (0 pts) Intoxicated or Sedated No (0 pts) Impaired Gait No (0 pts) Mobility Assist Device Used No (0 pt) Altered Elimination Score/Fall Risk Level 0 - 2 = Low Risk. Exposure risk/Travel Screening: None identified. Assessment: 02:50 General: Appears in no apparent distress. comfortable, Behavior is calm, cooperative, mt4 appropriate for age. Pain: Complains of pain in face Pain does not radiate. Pain currently is 3 out of 10 on a pain scale. Quality of pain is described as aching, pressure, Pain began 4 hours ago. Is intermittent. Neuro: Level of Consciousness is awake, alert, obeys commands, Oriented to person, place, time, situation, Appropriate for age Stonecutter Apprentice Hand are equal bilaterally Moves all extremities. Gait is steady, Speech is normal, Facial symmetry appears normal. Cardiovascular: Capillary refill < 3 seconds Pulses are all present. Cardiovascular: Rhythm is sinus rhythm. Respiratory: Airway is patent Respiratory effort is even, unlabored, Respiratory pattern is symmetrical. GI: Abdomen is round non-distended, Abd is non tender. : Denies burning with urination. Derm: Skin is intact, Skin is dry, Skin is pink, warm \T\ dry. Skin temperature is warm. Musculoskeletal: Capillary refill < 3 seconds, Range of motion: intact in all extremities. Vital Signs: 01:04 Weight 99.79 kg; Height 5 ft. 6 in. ; Pain 5/10; vc1 01:14 BP 118 / 77; Pulse 60; Resp 16; Temp 98.6; Pulse Ox 100% ; vc1 02:50 BP 129 / 82; Pulse 81; Resp 18; Temp 98(O); Pulse Ox 98% on R/A; Pain 3/10; mt4 04:59 BP 142 / 88; Pulse 67; Resp 19; Pulse Ox 98% on R/A; kd3 01:04 Body Mass Index 35.51 (99.79 kg, 167.64 cm) vc1 01:04 Pain Scale: Adult vc1 02:50 Pain Scale: Adult mt4 Preston Coma Score: 02:50 Eye Response: spontaneous(4). Motor Response: obeys commands(6). Verbal Response: mt4 oriented(5). Total: 15. 06:58 Eye Response: spontaneous(4). Motor Response: obeys commands(6). Verbal Response: sp4 oriented(5). Total: 15. ED Course: 00:44 Patient arrived in ED. ra3 01:06 Triage completed. vc1 01:07 Arm band placed on right wrist. vc1 01:28 Ezio River MD is Attending Physician. sp4 01:42 Inserted saline lock: 20 gauge in right antecubital area, using aseptic technique. af3 Blood collected. Flushed with 10 mL NS. 01:42 CBC with Diff Sent. af3 01:42 CMP Sent. af3 01:42 Lipase Sent. af3 01:42 Test, Urine Sent. af3 01:42 Urinalysis w/ reflexes Sent. af3 02:30 Yadiel Silva, RN is Primary Nurse. mt4 02:50 No apparent distress. Resting quietly. Awaiting lab results. mt4 02:50 Patient has correct armband on for positive identification. Bed in low position. Call mt4 light in reach. Side rails up X 1. Provided Education on: medication administration education . Client placed on continuous cardiac and pulse oximetry monitoring. NIBP monitoring applied. plaster form maker on. Pulse ox on. Door closed. Noise minimized. Lights dimmed. Warm blanket given. Pillow given. Verbal reassurance given. Head of bed elevated. 02:50 No provider procedures requiring assistance completed. Patient maintains SpO2 mt4 saturation greater than 95% on room air. 03:04 CT Head Brain wo Cont In Process Unspecified. EDMS 05:15 IV discontinued, intact, bleeding controlled, No redness/swelling at site. Pressure kd3 dressing applied. Administered Medications: 02:46 Drug: NS 0.9% IV 1000 ml IV at 1 bolus Per protocol; 1000 mL bolus Route: IV; Rate: 1 mt4 bolus; Site: right antecubital; 02:47 Drug: Ketorolac IVP 30 mg IVP once Route: IVP; Site: left antecubital; mt4 02:47 Drug: metoCLOPramide IVP 10 mg IVP once; over 1 to 2 minutes Route: IVP; Site: right mt4 antecubital; 02:47 Drug: diphenhydrAMINE IVP 25 mg IVP once Route: IVP; Site: right antecubital; mt4 Medication: 05:15 VIS not applicable for this client. kd3 Outcome: 05:07 Discharge ordered by . sp4 05:15 Discharged to home ambulatory, kd3 05:15 Condition: stable 05:15 Discharge instructions given to patient, Instructed on discharge instructions, follow up and referral plans. medication usage, Demonstrated understanding of instructions, follow-up care, medications, Prescriptions given X 1, 05:15 Patient left the ED. kd3 Signatures: Dispatcher [employer] EDKarely Moore RN RN kd3 Sammi Pimentel RN RN vc1 Ezio River MD MD sp4 Kala Miguel Molinec, RN RN mt4 Abena Aiken
--- NOTE | 2023-12-21 05:08 | EDPHYS ---
Physician Documentation [facility] Name: Allie Hedrick Age: 28 yrs Sex: Female : 1995 Arrival Date: 12/21/2023 Time: 00:41 Bed 5 Private MD: ED Physician Ezio River HPI: 12/20 01:29 This 28 yrs old Female presents to ER via Ambulatory with complaints of sp4 Blurred Vision. 06:58 Very pleasant 28-year-old female complains of generalized dizziness and blurred vision sp4 also headache. 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 - Infectious Disease History:: Denies. - Social history:: Smoking status: Patient denies any tobacco usage or history of. - Family history:: not pertinent. ROS: 06:58 Constitutional: Negative for fever, chills, and weight loss, headache positive sp4 generalized weakness positive disease 06:58 All other systems are negative, Exam: 06:58 Constitutional: This is a well developed, well nourished patient who is awake, alert, sp4 and in no acute distress. Head/Face: Normocephalic, atraumatic. Eyes: Pupils equal round and reactive to light, extra-ocular motions intact. Lids and lashes normal. Conjunctiva and sclera are not injected. Cornea within normal limits. Periorbital areas with no swelling, redness, or edema. ENT: Nares patent. No nasal discharge, no septal abnormalities noted. Tympanic membranes are normal and external auditory canals are clear. Oropharynx with no redness, swelling, or masses, exudates, or evidence of obstruction, uvula midline. Mucous membranes moist. Neck: Trachea midline, no thyromegaly or masses palpated, and no cervical lymphadenopathy. Supple, full range of motion without nuchal rigidity, or vertebral point tenderness. Chest/axilla: Normal chest wall appearance and motion. Nontender with no deformity. No lesions are appreciated. Cardiovascular: Regular rate and rhythm with a normal S1 and S2. No gallops, murmurs, or rubs. Normal PMI, no JVD. No pulse deficits. Respiratory: Lungs have equal breath sounds bilaterally, clear to auscultation and percussion. No rales, rhonchi or wheezes noted. No increased work of breathing, no retractions or nasal flaring. Abdomen/GI: Soft, with normal bowel sounds. No distension or tympany. No guarding or rebound. No evidence of tenderness throughout. Back: No spinal tenderness. No costovertebral tenderness. Skin: Warm, dry with normal turgor. Normal color with no rashes, no lesions, and no evidence of cellulitis. MS/ Extremity: Pulses equal, no cyanosis. Neurovascular intact. Full, normal range of motion. Neuro: Awake and alert, GCS 15, oriented to person, place, time, and situation. Cranial nerves II-XII grossly intact. Motor strength 5/5 in all extremities. Sensory grossly intact. Psych: Awake, alert, with orientation to person, place and time. Behavior, mood, and affect are within normal limits Vital Signs: 01:04 Weight 99.79 kg; Height 5 ft. 6 in. ; Pain 5/10; vc1 01:14 BP 118 / 77; Pulse 60; Resp 16; Temp 98.6; Pulse Ox 100% ; vc1 02:50 BP 129 / 82; Pulse 81; Resp 18; Temp 98(O); Pulse Ox 98% on R/A; Pain 3/10; mt4 04:59 BP 142 / 88; Pulse 67; Resp 19; Pulse Ox 98% on R/A; kd3 01:04 Body Mass Index 35.51 (99.79 kg, 167.64 cm) vc1 01:04 Pain Scale: Adult vc1 02:50 Pain Scale: Adult mt4 Carlos Coma Score: 02:50 Eye Response: spontaneous(4). Motor Response: obeys commands(6). Verbal Response: mt4 oriented(5). Total: 15. 06:58 Eye Response: spontaneous(4). Motor Response: obeys commands(6). Verbal Response: sp4 oriented(5). Total: 15. MDM: 01:33 Patient medically screened. sp4 04:59 ED course: EXAM DESCRIPTION: CT HEAD WITHOUT IV CONTRAST 12/21/2023 3:21 AM CDT CLINICAL sp4 HISTORY: 28 years, Female, Headache. COMPARISON: Prior report CT Head 04/27/2023. FINDINGS: Multiple transaxial tomograms of the brain were obtained from the base of the skull to the vertex without contrast. An individualized dose optimization technique, Automated Exposure Control, was utilized for the performed procedure. Brain: Brain parenchyma as well as the garza-white matter differentiation demonstrate to be within normal limits. There is no evidence for acute intraparenchymal hemorrhage. There is no midline shifts and/or mass effect. No focal areas of hypodensities. Ventricles: Lateral ventricles and cisterns displace normal appearance. Vasculature: No visualized abnormalities in the arteries or dural venous sinuses. Scalp/skull: The calvarium demonstrate to be intact with no evidence for acute bony injuries. Sinuses: The visualized paranasal sinuses and mastoid air cells demonstrate to be clear. Orbits: No significant abnormalities in the visualized orbital structures. IMPRESSION: No evidence for acute intraparenchymal hemorrhage. Unremarkable CT scan of the head without contrast. . 07:03 Differential diagnosis: generalized weakness, head injury, hyperventilation, , sp4 syncope, vertigo. Data reviewed: vital signs, nurses notes, lab test result(s), radiologic studies, CT scan. ED course: Headache has improved. Patient stable for discharge home. Normal neurologic exam.. 12/20 01:29 Order name: CBC with Diff; Complete Time: 04:58 sp4 12/20 01:29 Order name: CMP; Complete Time: 04:58 sp4 12/20 01:29 Order name: Lipase; Complete Time: 04:58 sp4 12/20 01:29 Order name: Test, Urine; Complete Time: 04:58 sp4 12/20 01:29 Order name: Urinalysis w/ reflexes; Complete Time: 04:58 sp4 12/20 02:24 Order name: CT Head Brain wo Cont sp4 12/20 01:29 Order name: IV Saline Lock; Complete Time: 01:42 sp4 12/20 01:29 Order name: Labs collected and sent; Complete Time: 01:42 sp4 Administered Medications: 02:46 Drug: NS 0.9% IV 1000 ml IV at 1 bolus Per protocol; 1000 mL bolus Route: IV; Rate: 1 mt4 bolus; Site: right antecubital; 02:47 Drug: Ketorolac IVP 30 mg IVP once Route: IVP; Site: left antecubital; mt4 02:47 Drug: metoCLOPramide IVP 10 mg IVP once; over 1 to 2 minutes Route: IVP; Site: right mt4 antecubital; 02:47 Drug: diphenhydrAMINE IVP 25 mg IVP once Route: IVP; Site: right antecubital; mt4 Disposition Summary: 12/21/23 05:07 Discharge Ordered Notes: Location: Home sp4 Problem: new sp4 Symptoms: have improved sp4 Condition: Stable sp4 Diagnosis - Tension-type headache sp4 Followup: sp4 - With: Private Physician - When: 7 - 10 days - Reason: Recheck today's complaints Discharge Instructions: - Discharge Summary Sheet sp4 - Tension Headache, Adult, [id number] sp4 Forms: - Patient Portal Instructions sp4 Prescriptions: - Fioricet 50-300-40 mg Oral capsule - take 1 capsule ORAL route every 8 hours PRN headaches; 30 capsule; Refills: 0, sp4 Product Selection Permitted Signatures: Dispatcher [employer] EDMS Sammi Pimentel RN RN vc1 Ezio River MD MD sp4 Yadiel Silva RN RN mt4 Corrections: (The following items were deleted from the chart) 01:30 01:30 CBC+H.LAB.BRZ ordered. EDMS EDMS 01:30 01:30 COMPREHENSIVE METABOLIC PANEL+C.LAB.BRZ ordered. EDMS EDMS 01:30 01:30 LIPASE+C.LAB.BRZ ordered. EDMS EDMS 01:30 01:30 Test, Urine+UC.LAB.BRZ ordered. EDMS EDMS 01:30 01:30 Urinalysis+U.LAB.BRZ ordered. EDMS EDMS 02:24 02:24 Head Brain Wo Cont+CT.RAD.BRZ ordered. EDMS EDMS
[2023-12-21 05:33] VITALS: TEMP 98; O2SAT 98
[2023-12-21 05:34] VITALS: BP 142/88
--- NOTE | 2023-12-23 11:25 | RAD REPORT ---
EXAM DESCRIPTION: CT - Head Brain Wo Cont - 12/21/2023 6:40 am CLINICAL HISTORY: 28 years, Female, Headache. COMPARISON: Prior report CT Head 04/27/2023. FINDINGS: Multiple transaxial tomograms of the brain were obtained from the base of the skull to the vertex without contrast. An individualized dose optimization technique, Automated Exposure Control, was utilized for the perfo rmed procedure. Brain: Brain parenchyma as well as the garza-white matter differentiation demonstrate to be within nor mal limits. There is no evidence for acute intraparenchymal hemorrhage. There is no midline shifts an d/or mass effect. No focal areas of hypodensities. Ventricles: Lateral ventricles and cisterns displace normal appearance. Vasculature: No visualized abnormalities in the arteries or dural venous sinuses. Scalp/skull: The calvarium demonstrate to be intact with no evidence for acute bony injuries. Sinuses: The visualized paranasal sinuses and mastoid air cells demonstrate to be clear. Orbits: No significant abnormalities in the visualized orbital structures. IMPRESSION: No evidence for acute intraparenchymal hemorrhage. Unremarkable CT scan of the head without contrast. Electronically signed by: Willem Lara MD 12/21/2023 03:49 AM CDT RP Due to temporary technical issues with the PACS/Fluency reporting system, reports are being signed by the in house radiologist without review as a courtesy to ensure prompt reporting. The interpreting r adiologist is fully responsible for the content of the report.
== END 2023-12-21 05:15 | disposition home or self-care (01) ==
LOC: ER 00:41
DX: G44.209 Tension-type headache, unspecified, not intractable (principal)
CPT/HCPCS: 36415; 70450; 80053; 81001; 81025; 83690; 85025; 99285; J1200; J2765; J7030

== ENCOUNTER 2024-03-13 01:02 | Emergency (ER) | payer SELFPAY ==
--- OUTSIDE RECORDS SUMMARY | 2024-03-13 01:18 | XMS REPORT | Continuity of Care Document ---
Author Name Unknown Address [address] [facility] [address] [place] [address] [facility] Address [address] [facility] [place] [address] Care Team Providers Care Airplane Engineer Name Role Phone Anna Nicholas Primary Care Physician [phone] DR SAMMY JI Attending Clinician Unavailable [id number] Attending Clinician Unavailable [id number] Attending Clinician Unavailable DIRK GONZALEZ Attending Clinician Unavailable DIRK GONZALEZ Attending Clinician UnaAdi Salinas Attending Clinician +[phone] MONE VARELA Attending Clinician Henri Borges MD, Fanny Daniels Attending Clinician +[phone] Sarah ACUNA, Joie Attending Clinician + [phone] Jluis ACUNA, Basilio Guerrero Attending Clinici an Mone Varela DO Attending Clinician + Resource, Hvi [facility] Ec[facility] Ecg Attending Clinician Unavailable ANNA HEARN Attending Clinician Unavailable Anna Nicholas Attending Clinician [phone] Sheila Orta MD Attending Clinician +[phone] MELISSA SAMS Attending Clinician Unavailab MELISSA Hahn Attending Clinician Unavailab Melissa Hahn DO Attending Clinician +[phone] Gabriele Houston Attending Clinician Unavailable ALLIE ROY Attending Clinician Unavailable Lab, Ang - Db Attending Clinician Unavailable Anna Nicholas Attending Clinician [phone] Doctor Unassigned, [place] Attending Clinician U SHEILA Soni Attending Clinician Unavailable ALVERTO OLIVARES Attending Clinician Unavailable SONJA EASTMAN Attending Clinician Unavailable ABHINAV HUANG Attending Clinician Unavailable Sheila Orta MD Attending Clinician [phone] Sonja Roberts Attending Clinician +[phone] HOUSTON DEXTER Attending Clinician Unavailable SAIDA LAGUNA Attending Clinician Unavailable Saida Laguna MD Attending Clinician [phone] CARMELA BRENNAN Attending Clinician Unavailable CARMELA BRENNAN Attending Clinician Unavailable Clinic, Gastroenterology Attending Clinician + [phone] CAITY PEDRAZA Attending Clinician Unavailab Abdirashid Connell DO Attending Clinician [phone] Chanel ACUNA, Caity Attending Clinician + [phone] Alverto Olivares MD Attending Clinician +[phone] Annelise Brown MA Attending Clinician UnavailCOSME Borrego Attending Clinician Unavailable [facility] Attending Clinician Noemiyves maggi [phone] Attending Clinician Unavailable N Attending Clinician Unavailable GLORIA JONES Attending Clinician UnavailGLORIA Magaña Attending Clinician UnavailCosme Borrego PA-C Attending Clinician +[phone] Anna Morales Attending Clinician +[phone] Roland PhD, Lisa Dooley Attending Clinician + [phone] LISA GARCIA Attending Clinician Unavailab le 1, [employer] Attending Clinician Noemi vailable ELLIOT GOULD Attending Clinician Unavailable MAGALYS LACEY Attending Clinician Unavailable Magalys Lacey MD Attending Clinician [phone] TRACY WHEELER Attending Clinician Unavailable Tracy Wheeler MD Attending Clinician +[phone] Elliot Gould MD Attending Clinician +[phone] KIRAN SCALES Attending Clinician Unavailable Kiran Scales MD Attending Clinician +[phone] SHARI DIAMOND Attending Clinician Unavailable SONIA MAYBERRY Attending Clinician Unavailable Sonia Mayberry MD Attending Clinician +[phone] , [facility] Room Attending Clinician Unavaila Morgan Trinidad MD Attending Clinician [phone] MORGAN GRANDE Attending Clinician Unavailable MORGAN GRANDE Attending Clinician Unavailable Colin Singh Attending Clinician + [phone] Nataliya Clifton Attending Clinician [phone] NOEL COOLEY Attending Clinician Unavailable Noel Cooley MD Attending Clinician [phone] Pob, [facility] Main Attending Clinician UnavailShari Johnson PA-C Attending Clinician [phone] Nurse, [facility] Attending Clinician Un available Kurtis CAMPBELL, Lisset Attending Clinician Unavail able Ran Arriaza MD Attending Clinician [phone] RAN ARRIAZA Attending Clinician Unavailable RAN ARRIAZA Attending Clinician Unavailable 1, [facility] Usg Room Attending Clinician Unavaila keo BlueKuldeep DO, Ever Attending Clinician [phone] Ultrasound, [facility] Attending Clinician Unavaila keo Bower MD, Gus Bangura Attending Clinician GUS BOWER Attending Clinician Unavaila ble 2, [facility] Lab Attending Clinician Unavailable DERRICK CARBONE Attending Clinician Unavaila keo Gonzalez RN, Adele Dooley Attending Clinician Unavail able Alejandra ACUNA, Emanuel Attending Clinician [phone] [facility] Clinic, [facility] Neurology Continuity Attending Bon roberson Unavailable ALPHONSO MEJIA Attending Clinician Unavailotto Miller FAX MACHINE REPAIRER, Coleen Crisostomo Attending Clinician [phone] ROBY Attending Clinician Unavailable Nkechi Carballo S Attending Clinician +[phone] Macario Arriaza DO Attending Clinician +[phone] TAYLOR HILARIO Attending Clinician Bull Aranda, [facility] Test Attending Clinician Unavailable BACDR SAMMY CHRISTIAN Admitting Clinician Unavailable NOEL COOLEY Admitting Clinician Unavailable ELLIOT GOULD Admitting Clinician Unavailable DIRK GONZALEZ Admitting Clinician Dirk Aguirre MD Admitting Clinician + [phone] MONE VARELA Admitting Clinician UnaMone Guerrero DO Admitting Clinician + Danyell Arvizu Admitting Clinician Unavailable SONJA EASTMAN Admitting Clinician Unavailable SAIDA LAGUNA Admitting Clinician Unavailable ABDIRASHID SLOAN Admitting Clinician Unavailable DR CYRUS MCMANUS Admitting Clinician Bull Gould MD, Elliot Christian Admitting Clinician +[phone] SONIA MAYBERRY Admitting Clinician Unavailable Sonia Mayberry MD Admitting Clinician +[phone] En ACUNA, Noel Admitting Clinician Alejandra ACUNA, Emanuel Admitting Clinician ROBY Admitting Clinician Unavailable Payers Payer Name Policy Type Policy Number Effective Date Expirati on Date Source [place]UE [place] [facility] [place] - [facility] [id number] [facility]UE SHIELD [facility] CLINIC [id number] [facility] [id number] 2020 00:00:00 [facility] STAR [id number] 2019 00:00:00 [employer]ET[employer] HMO [id number] 2015 00:00:00 [employer] (POS) [id number] 2015 00:00:00 2020 00:00:00 Problems Condition Name Condition Details Condition Category Status Onset Date Resolution Date Last Treatment Date Treating Clinician Comments Source Displaced trimalleol ar fracture of right lower leg, initial encounter for closed fracture Displaced trimalleol ar fracture of right lower leg, initial encounter for closed fracture Disease Active 2023-04 00:00: 00 [facility] Morbid obesity Morbid obesity Disease Active 2023-04 00:00: 00 [facility] Ankle fracture, right, closed, initial encounter Ankle fracture, right, closed, initial encounter Disease Active 2023-04 00:00: 00 [facility] Ankle fracture, right, sequela Ankle fracture, right, sequela Disease Active 2023-04 00:00: 00 [facility] SKINNY (generaliz ed anxiety disorder) SKINNY (generaliz ed anxiety disorder) Disease Active 2023-04 00:00: 00 [facility] MDD (major depressive disorder) MDD (major depressive disorder) Disease Active 2023-04 00:00: 00 [facility] Paroxysmal A-fib (CMS/HCC) Paroxysmal A-fib (CMS/HCC) Disease Active 2023-04 00:00: 00 [facility] Preop examinatio n Preop examinatio n Disease Active 2023-04 00:00: 00 [facility] Leukocytos is Leukocytos is Disease Active 2023-04 00:00: 00 [facility] Snores Snores Disease Active 09-12 00:00: 00 [facility] PFO (patent foramen ovale) PFO (patent foramen ovale) Disease Active 09-12 00:00: 00 [facility] Palpitatio ns Palpitatio ns Disease Active 09-12 00:00: 00 [facility] Vitamin B6 deficiency Vitamin B6 deficiency Disease Active 09-01 00:00: 00 [facility] Sleep difficulti es Sleep difficulti es Disease Active 08-28 00:00: 00 [facility] Anxiety Anxiety Disease Active 08-28 00:00: 00 [facility] Epigastric pain Epigastric pain Disease Active 05-11 00:00: 00 [facility] Leukocytos is, unspecifie d type Leukocytos is, unspecifie d type Disease Active 05-11 00:00: 00 [facility] History of anxiety History of anxiety Disease Active 2021-04 00:00: 00 [facility] History of gestationa l hypertensi on History of gestationa l hypertensi on Disease Active 2021-04 00:00: 00 Overview: Formattin g of this note might be different from the original. Added automatic ally from request for surgery [id number] [facility] History of depression History of depression Disease Active 2021-04 00:00: 00 [facility] Headache Headache Disease Active 2021-04 00:00: 00 [facility] Placenta previa without hemorrhage , antepartum Placenta previa without hemorrhage , antepartum Disease Active 11-22 00:00: 00 [facility] Vaginal cyst Vaginal cyst Disease Active 2017-04 00:00: 00 [facility] Obesity (BMI 30-39.9) Obesity (BMI 30-39.9) Disease Active 2017-04 005 00:00: 00 [facility] Cold sore Cold sore Disease Active 06-13 00:00: 00 [facility] Nausea Nausea Disease Active 06-13 00:00: 00 [facility] Atrial fibrillati on and flutter Atrial fibrillati on and flutter Disease Active 2013-04 00:00: 00 [facility] Liveborn , of knight , born in hospital by delivery Liveborn infant, of knight , born in hospital by delivery Disease Resolve d 2021-04 1-07 00:00: 00 2022-03-08 00:00:00 2022-03-08 10:28:05 [facility] Placenta previa without hemorrhage , antepartum Placenta previa without hemorrhage , antepartum Disease Resolve d 8-03 00:00: 00 2022-03-08 00:00:00 2022-03-08 10:28:03 [facility] High risk , antepartum High risk , antepartum Disease Resolve d 0 4-12 00:00: 00 2022-03-08 00:00:00 2022-03-08 10:28:01 [facility] 36 weeks gestation of 36 weeks gestation of Disease Resolve d 9-05 00:00: 00 2022-03-08 00:00:00 2022-03-08 10:27:59 [facility] 33 weeks gestation of 33 weeks gestation of Disease Resolve d 2021-04 0-14 00:00: 00 2022-02-14 00:00:00 2022-02-14 14:15:07 [facility] IIH (idiopathi c intracrani al hypertensi on) IIH (idiopathi c intracrani al hypertensi on) Disease Resolve d 0 9-23 00:00: 00 2022-02-02 00:00:00 2022-02-02 01:15:04 [facility] Atrial fibrillati on, unspecifie d type Atrial fibrillati on, unspecifie d type Disease Resolve d - 00:00: 00 2022-02-02 00:00:2022-02-02 01:15:01 [facility] Pre-eclamp radha, mild Pre-eclamp radha, mild Disease Resolve d 2019-0 5-08 00:00: 00 2019-09-24 00:00:00 2019-09-24 15:05:42 [facility] 39 weeks gestation of 39 weeks gestation of Disease Resolve d 5-07 00:00: 00 2019-09-24 00:00:00 2019-09-24 14:42:08 [facility] Encounter for elective induction of labor Encounter for elective induction of labor Disease Resolve d 0 5-07 00:00: 00 2019-09-24 00:00:00 2019-09-24 14:42:07 [facility] Elevated BP without diagnosis of hypertensi on Elevated BP without diagnosis of hypertensi on Disease Resolve d 5-07 00:00: 00 2019-09-24 00:00:00 2019-09-24 15:05:42 [facility] Liveborn , of knight , born in hospital by vaginal delivery Liveborn , of knight , born in hospital by vaginal delivery Disease Resolve d 2016-0 7-29 00:00: 00 2019-09-24 00:00:00 2019-09-24 14:42:11 [facility] High-risk , third trimester High-risk , third trimester Disease Resolve d 2016-0 6-14 00:00: 00 2019-09-24 00:00:00 2019-09-24 14:42:12 [facility] Presence of of 52 mg levonorges trel-relea sing intrauteri ne device (IUD) Presence of of 52 mg levonorges trel-relea sing intrauteri ne device (IUD) Disease Resolve d 2017- 1-14 00:00: 00 2019-07-14 00:00:00 2019-07-14 08:59:41 [facility] 38 weeks gestation of 38 weeks gestation of Disease Resolve d 2017- 0-05 00:00: 00 2019-07-14 00:00:00 2019-07-14 08:59:33 [facility] Decreased movements in third trimester Decreased movements in third trimester Disease Resolve d 2017-04 0-05 00:00: 00 2019-07-14 00:00:00 2019-07-14 08:59:34 [facility] Antepartum variable decelerati on Antepartum variable decelerati on Disease Resolve d 2017-04 0-05 00:00: 00 2019-07-14 00:00:00 2019-07-14 08:59:40 [facility] Premature uterine contractio ns Premature uterine contractio ns Disease Resolve d 2017-04 0-05 00:00: 00 2019-07-14 00:00:00 2019-07-14 09:00:59 [facility] Insufficie nt weight gain during in third trimester Insufficie nt weight gain during in third trimester Disease Resolve d - 00:00: 00 2019-07-14 00:00:00 2019-07-14 08:59:47 [facility] Anemia of mother in , antepartum Anemia of mother in , antepartum Disease Resolve d 9-25 00:00: 00 2019-07-14 00:00:00 2019-07-14 09:01:21 [facility] Medication exposure during first trimester of Medication exposure during first trimester of Disease Resolve d 2-24 00:00: 00 2019-07-14 00:00:00 2019-07-14 09:01:07 [facility] Heart palpitatio ns Heart palpitatio ns Disease Resolve d 9-14 00:00: 00 2018-01-24 00:00:00 2018-01-24 15:48:41 [facility] Vaginal spotting Vaginal spotting Disease Resolve d -05 00:00: 00 2018-01-24 00:00:00 2018-01-24 15:48:47 [facility] Vaginal discharge during in third trimester Vaginal discharge during in third trimester Disease Resolve d 9-05 00:00: 00 2018-01-24 00:00:00 2018-01-24 15:48:33 [facility] Urinary tract infection in mother during third trimester of Urinary tract infection in mother during third trimester of Disease Resolve d 12-25 00:00: 2018-01-24 00:00:00 2018-01-24 15:48:36 [facility] Insufficie nt care in third trimester Insufficie nt care in third trimester Disease Resolve d 8-09 00:00: 00 2018-01-24 00:00:00 2018-01-24 15:47:25 [facility] Round ligament pain Round ligament pain Disease Resolve d 427 00:00: 00 2018-01-24 00:00:00 2018-01-24 15:47:22 [facility] Oral contracept nadja use Oral contracept nadja use Disease Resolve d 914 00:00: 00 2018-01-24 00:00:00 2018-01-24 15:47:18 [facility] uterine contractio ns in third trimester, antepartum uterine contractio ns in third trimester, antepartum Disease Resolve d 618 00:00: 00 2018-01-24 00:00:00 2018-01-24 16:10:22 [facility] Trichomona l vaginitis during in first trimester Trichomona l vaginitis during in first trimester Disease Resolve d 2015-04 2 00:00: 00 2018-01-24 00:00:00 2018-01-24 15:46:58 [facility] BV (bacterial vaginosis) BV (bacterial vaginosis) Disease Resolve d 2015-04 00:00: 00 2018-01-24 00:00:00 2018-01-24 15:47:01 [facility] Gestationa l hypertensi on, third trimester Gestationa l hypertensi on, third trimester Disease Resolve d 11-15 00:00: 00 2017-12-17 00:00:00 2017-12-17 10:31:08 [facility] Gestationa l hypertensi on Gestationa l hypertensi on Disease Resolve d 11-15 00:00: 00 2017-12-17 00:00:00 2017-12-17 10:30:57 [facility] Elevated blood pressure affecting in third trimester, antepartum Elevated blood pressure affecting in third trimester, antepartum Disease Resolve d 2016-0 6-14 00:00: 00 2017-12-17 00:00:00 2017-12-17 10:31:03 [facility] 37 weeks gestation of 37 weeks gestation of Disease Resolve d 2016-0 7-29 00:00: 00 2017-04-08 00:00:00 2017-04-08 12:04:45 [facility] Glucose found in urine on examinatio n Glucose found in urine on examinatio n Disease Resolve d 18 00:00: 00 2017-04-08 00:00:00 2017-04-08 12:04:45 [facility] at early stage at early stage Disease Resolve d 2015-04 00:00: 00 2016-10-09 00:00:00 2016-10-09 11:00:34 [facility] High-risk supervisio n, first trimester High-risk supervisio n, first trimester Disease Resolve d 2015-04 00:00: 00 2016-08-17 00:00:00 2016-08-17 14:40:58 [facility] with inconclusi ve viability, not applicable or unspecifie d fetus with inconclusi ve viability, not applicable or unspecifie d fetus Disease Resolve d 2015-04 00:00: 00 2016-04-18 00:00:00 2016-04-18 17:25:23 [facility] Allergies, Adverse Reactions, Alerts Allergy Name Allergy Type Status Severity Reaction(s) Onset Date Inactive Date Treating Clinician Comments Source No Known Allergie s DA Active U 07-31 00:00: 00 [facility] No Known Allergie s DA Active U 07-31 00:00: 00 [facility] No Known Environm ental Allergie s MA Active UNKNOWN [facility] No Known Drug Allergie s MA Active UNKNOWN [facility] No Known Food Allergie s MA Active UNKNOWN [facility] NO KNOWN ALLERGIE S Drug Class Active [facility] Family History Family Member Diagnosis Comments Start Date Stop Date Sourc e Natural brother Asthma [facility] Natural father Genetic Unive [facility] Natural mother Depression [facility] Family member Arthritis [facility] member Breast Cancer [facility] Family member Cancer [facility] Family member Colon Cancer [facility] Family member Diabetes [facility] Family member Heart Univer [facility] Family member High cholesterol [facility] Family member Hypertension [facility] Family member Mental retardation [facility] Family member [facility] Family member Ovarian Cancer [facility] Family member [facility]iatry [facility] Family member [facility]ine [facility] Social History Social Habit Start Date Stop Date Quantity Comments Source Gender identity 2023-07-14 03:50:18 Identifies as female gender (finding) [facility] Sexual orientation [facility] History SDOH Alcohol Std Drinks [facility] History SDOH Alcohol Binge [facility] History SDOH Alcohol Comment [place] [facility] ASSERTION Not [facility] dooley [facility] Alcoholic beverage intake 2024-03-05 00:00:00 2024-03-05 00:00:00 .14 /d [facility] Tobacco use and exposure 2024-02-09 00:00:00 2024-02-09 00:00:00 Smokeless tobacco non-user [facility] History of Social function 2024-02-09 00:00:00 2024-02-09 00:00:00 [facility] Alcohol intake 2023-07-17 00:00:00 2023-07-17 00:00:00 0 /d [facility] Exposure to SARS-CoV-2 (event) 2022-08-13 00:00:00 2022-08-23 13:15:00 Not sure [facility] History SDOH Alcohol Frequency 2021-07-19 00:00:00 2021-07-19 00:00:00 1 [facility] Sex assigned at 1995 00:00:00 1995 00:00:00 [facility] Smoking Status Start Date Stop Date Source Tobacco smoking consumption unknown [facility] Never smoked tobacco [facility] Medications Ordered Medication Name Filled Medication Name Start Date Stop Date Current Medication? Ordering Clinician Indication Dosage Frequency Signature (SIG) Comments Components Source aspirin EC 81 MG EC tablet aspirin EC 81 MG EC tablet 2023-04 19:13: 35 Yes 81mg QD Take 81 mg by mouth 1 time each day. [facility] ibuprofen 600 MG tablet ibuprofen 600 MG tablet 2023-04 19:13: 35 Yes 800mg Q.5D Take 800 mg by mouth in the morning and 800 mg in the evening. [facility] ondansetron (Zofran) injection 4 mg ondansetron (Zofran) injection 4 mg 2023-04 17:15: 00 03-05 17:20 :00 No 4mg 4 mg, Intravenou s, Once, On Sat03/05/24 at 1715, For 1 dose, Recovery (only), Give IV if patient is unable to take orally. [facility] Amisulpride (Antiemetic ) solution 10 mg Amisulpride (Antiemetic ) solution 10 mg 2023-04 13:45: 00 03-05 14:54 :00 No 10mg 10 mg, Intravenou s, Once, On Sat03/05/24 at 1345, For 1 dose, Recovery (only) [facility] HYDROmorpho ne PF (Dilaudid) injection 0.25 mg HYDROmorpho ne PF (Dilaudid) injection 0.25 mg 2023-04 12:06: 47 Yes .25mg 0.25 mg, Intravenou s, Every 10 min PRN, severe pain (7-10), Starting on Sat03/05/24 at 1206, For 4 doses, Recovery (only), Hold for respirator y rate or 8 or less. [facility] naloxone (Narcan) injection 0.04 mg naloxone (Narcan) injection 0.04 mg 2023-04 12:06: 47 Yes .04mg 0.04 mg, Intravenou s, As needed, opioid reversal, every 2 minutes PRN to reverse sedation, Starting on Sat03/05/24 at 1206, For 8 doses, Recovery (only), Keep available for immediate use. Stop epidural infusion. Call Anesthesio logist STAT and Notify Pain Service (Dilute 0.4mg/mL in 9 mL saline) [facility] flumazenil (Romazicon) injection 0.2 mg flumazenil (Romazicon) injection 0.2 mg 2023-04 12:06: 47 Yes .2mg 0.2 mg, Intravenou s, As needed, Starting on Sat03/05/24 at 1206, Until Discontinu ed [facility] labetalol injection 10 mg labetalol injection 10 mg 2023-04 12:06: 47 Yes 10mg 10 mg, Intravenou s, Every 5 min PRN, high blood pressure, Systolic blood pressure greater than 160 mmHg and/or Diastolic blood pressure greater than 90 mmHg. Hold if Heart Rate less than 60 beats per minute., Starting on Sat03/05/24 at 1206, Recovery (only) [facility] hydrALAZINE injection 10 mg hydrALAZINE injection 10 mg 2023-04 12:06: 47 Yes 10mg 10 mg, Intravenou s, Every 20 min PRN, high blood pressure, Systolic blood pressure greater than 160 mmHg and/or Diastolic blood pressure greater than 90 mmHg. Hold is Heart Rate greater than 100 beats per minute., Starting on Sat03/05/24 at 1206, For 2 doses, Recovery (only) [facility] oxyCODONE (Roxicodone ) immediate release tablet 5 mg oxyCODONE (Roxicodone ) immediate release tablet 5 mg 2023-04 12:06: 47 03-05 15:21 :00 No 5mg 5 mg, Oral, Once as needed, moderate pain (4-6), Starting on Carolin 03/05/24 at 1206, For 1 dose, Recovery (only) [facility] ondansetron (Zofran) injection 4 mg ondansetron (Zofran) injection 4 mg 2023-04 12:06: 47 03-05 12:54 :00 No 4mg 4 mg, Intravenou s, Once as needed, nausea, vomiting, Starting on Sat03/05/24 at 1206, For 1 dose, Recovery (only), May repeat once (maximum dose = 8mg). Do not repeat if patient has received Ondansetro n intraopera tively. [facility] aprepitant (Emend) capsule 40 mg aprepitant (Emend) capsule 40 mg 2023-04 09:00: 00 03-05 10:23 :58 No 40mg QD 40 mg, Oral, Daily, First dose on Sat03/05/24 at 0900 [facility] acetaminoph en (Tylenol) 500 MG tablet - Pyxis Override Pull acetaminoph en (Tylenol) 500 MG tablet - Pyxis Override Pull 2023-04 05:49: 42 02-25 06:02 :00 No Starting on Sat02/26/24 at 0549, For 1 dose, Created by cabinet override [facility] acetaminoph en (Tylenol) tablet 1,000 mg acetaminoph en (Tylenol) tablet 1,000 mg 2023-04 05:30: 00 02-25 06:02 :00 No 1000mg 1,000 mg, Oral, Once, On Sat02/26/24 at 0530, For 1 dose, Preprocedu re, DO NOT GIVE IF PATIENT HAS RECEIVED ACETAMINOP HEN IN THE PAST SIX HOURS. Maybe administer ed with midazolam. Max acetaminop hen from all sources = 4,000 mg in 24 hours. Anesthesia Pre-op [facility] naloxone (Narcan) 4 mg/0.1 mL nasal spray 2023-04 00:00: 00 02-17 04:59 :00 Yes [id number] 4mg Administer 1 spray (4 mg total) into affected nostril(s) if needed for opioid reversal. May repeat every 2-3 minutes if needed, alternatin g nostrils, until medical assistance becomes available. [facility] ibuprofen 800 MG tablet 2023-04 00:00: 02-27 05:59 :00 Yes [id number] 800mg Take 1 tablet (800 mg total) by mouth every 8 (eight) hours if needed for mild pain for up to 10 days. [facility] methocarbam ol (Robaxin) 750 MG tablet 2023-04 00:00: 00 02-27 05:59 :00 Yes [id number] 750mg Q.[id number] 3D Take 1 tablet (750 mg total) by mouth 3 (three) times a day if needed for muscle spasms for up to 10 days. [facility] traMADol (Ultram) 50 MG tablet 2023-04 00:00: 00 02-22 04:59 :00 Yes [id number] 50mg Q6H Take 1 tablet (50 mg total) by mouth every 6 (six) hours if needed for severe pain for up to 5 days. [facility] B Complex Vitamins (VITAMIN B COMPLEX PO) B Complex Vitamins (VITAMIN B COMPLEX PO) 2023-04 15:49: 07 Yes Take by mouth. [facility] methocarbam ol (Robaxin) 500 MG tablet methocarbam ol (Robaxin) 500 MG tablet 2023-04 00:00: 00 Yes 500mg Q.[id number] 3D Take 1 tablet by mouth 3 times a day as needed for muscle spasms for up to 10 doses. [facility] HYDROcodone -acetaminop hen ([place]) 5-325 MG tablet HYDROcodone -acetaminop hen ([place]) 5-325 MG tablet 2023-04 00:00: 00 02-24 23:59 :00 No [id number] 1{tbl} Q4H Take 1 tablet by mouth every 4 hours if needed for severe pain (7-10) for up to 15 days. [facility] ibuprofen 800 MG tablet ibuprofen 800 MG tablet 2023-04 00:00: 00 02-14 23:59 :00 No 800mg Q.[id number] 3D Take 1 tablet by mouth in the morning and 1 tablet at noon and 1 tablet in the evening. Do all this for 5 days. [facility] ondansetron ODT (Zofran-ODT ) 4 MG disintegrat ing tablet ondansetron ODT (Zofran-ODT ) 4 MG disintegrat ing tablet 2023-04 00:00: 00 02-12 23:59 :00 No 4mg Q.25D Take 1 tablet by mouth in the morning and 1 tablet at noon and 1 tablet in the evening and 1 tablet before bedtime. Do all this for 10 doses. [facility] ceFAZolin Sodium (Ancef) 2 g in sterile water injection ceFAZolin Sodium (Ancef) 2 g in sterile water injection 2023-04 23:30: 00 02-09 15:09 :00 No 2g Q8H 2 g, Intravenou s, at 200 mL/hr, Administer over 6 Minutes, Every 8 hours, First dose on 02/09/24 at 2330, For 3 doses, Phase II/On Unit, SCIP antibiotic - pls verify FIRST DOSE of post surgical antibiotic administra tion and schedule rebekah burch , Suspected Indication (Select all that apply): Surgical Prophylaxi s [facility] promethazin e (Phenergan) 6.25 mg in sodium chloride 0.9 % 50 mL IVPB promethazin e (Phenergan) 6.25 mg in sodium chloride 0.9 % 50 mL IVPB 2023-04 23:15: 00 02-09 00:28 :00 No 6.25mg 6.25 mg, Intravenou s, at 100 mL/hr, Administer over 30 Minutes, Once, On 02/09/24 at 2315, For 1 dose [facility] sennosides (Senokot) tablet 17.2 mg sennosides (Senokot) tablet 17.2 mg 2023-04 21:00: 00 Yes 2{tbl} 17.2 mg (2 tablet), Oral, Nightly, First dose on 02/09/24 at 2100 [facility] ketorolac (Toradol) injection 15 mg ketorolac (Toradol) injection 15 mg 2023-04 18:00: 00 02-12 17:59 :00 No 15mg Q.25D 15 mg, Intravenou s, Every 6 hours scheduled, First dose on Sat02/09/24 at 1800, For 4 days [facility] traMADol (Ultram) tablet 100 mg traMADol (Ultram) tablet 100 mg 2023-04 17:15: 29 Yes 100mg Q6H 100 mg, Oral, Every 6 hours PRN, moderate pain (4-6), Starting on Sat02/09/24 at 1715 [facility] acetaminoph en (Tylenol) tablet 500 mg acetaminoph en (Tylenol) tablet 500 mg 2023-04 17:15: 00 Yes 500mg Q4H 500 mg, Oral, Every 4 hours PRN, mild pain (1-3), fever, Starting on Sat02/09/24 at 1715, Max acetaminop hen from all sources = 4,000 mg in 24 hrs. [facility] HYDROcodone -acetaminop hen ([place]) 5-325 MG per tablet 1 tablet HYDROcodone -acetaminop hen ([place]) 5-325 MG per tablet 1 tablet 2023-04 17:15: 00 Yes 1{tbl} Q4H 1 tablet, Oral, Every 4 hours PRN, severe pain (7-10), Starting on Sat02/09/24 at 1715 [facility] acetaminoph en (Tylenol) tablet 1,000 mg acetaminoph en (Tylenol) tablet 1,000 mg 2023-04 17:15: 00 02-08 18:14 :00 No 1000mg 1,000 mg, Oral, Once, On Sat02/09/24 at 1715, For 1 dose, Recovery (only), If not given within the last 6 hours. Max acetaminop hen from all sources = 4,000 mg in 24 hours. [facility] methocarbam ol (Robaxin) tablet 500 mg methocarbam ol (Robaxin) tablet 500 mg 2023-04 17:14: 40 Yes 500mg Q.[id number] 3D 500 mg, Oral, 3 times daily PRN, muscle spasms, Starting on Sat02/09/24 at 1714 [facility] ondansetron (Zofran) injection 4 mg ondansetron (Zofran) injection 4 mg 2023-04 17:13: 52 Yes 4mg Q6H 4 mg, Intravenou s, Every 6 hours PRN, vomiting, nausea, Starting on Sat02/09/24 at 1713 [facility] oxyCODONE (Roxicodone ) immediate release tablet 5 mg oxyCODONE (Roxicodone ) immediate release tablet 5 mg 2023-04 17:00: 06 02-08 18:13 :00 No 5mg 5 mg, Oral, Once as needed, moderate pain (4-6), Starting on Sat02/09/24 at 1700, For 1 dose, Recovery (only) [facility] morphine PF injection 4 mg morphine PF injection 4 mg 2023-04 17:00: 06 02-08 19:21 :20 No 4mg 4 mg, Intravenou s, Every 5 min PRN, severe pain (7-10), Starting on Sat02/09/24 at 1700, For 3 doses, Recovery (only), Hold for respirator y rate of 8 or less. [facility] gabapentin (Neurontin) capsule 200 mg gabapentin (Neurontin) capsule 200 mg 2023-04 14:00: 00 02-08 17:15 :17 No 200mg Q.[id number] 3D 200 mg, Oral, Every 8 hours scheduled, First dose on Sat02/09/24 at 1400, For CrCl 30-59 mL/min [facility] enoxaparin (Lovenox) syringe 40 mg enoxaparin (Lovenox) syringe 40 mg 2023-04 12:45: 00 Yes 40mg Q.5D 40 mg, Subcutaneo us, Every 12 hours scheduled, First dose (after last modificati on) on Sat02/09/24 at 1245 [facility] acetaminoph en (Tylenol) 500 MG tablet acetaminoph en (Tylenol) 500 MG tablet 2023-04 12:00: 00 02-08 17:15 :18 Yes 1000mg Q6H Take 1,000 mg by mouth every 6 hours if needed for mild pain (1-3). [facility] ondansetron (Zofran) 4 MG/2ML injection - Pyxis Override Pull ondansetron (Zofran) 4 MG/2ML injection - Pyxis Override Pull 2023-04 11:02: 33 02-08 11:05 :00 No Starting on 02/09/24 at 1102, For 1 dose, Created by cabinet override [facility] polyethylen e glycol (PEG) 3350 (Miralax) packet 17 g polyethylen e glycol (PEG) 3350 (Miralax) packet 17 g 2023-04 10:35: 00 Yes 17g QD [facility] sodium chloride (NS) 0.9 % flush 10 mL sodium chloride (NS) 0.9 % flush 10 mL 2023-04 10:35: 00 Yes 10mL Q12H 10 mL, Intravenou s, Every 12 hours, First dose on 02/09/24 at 1035, Administer at least once every 12 hours [facility] melatonin tablet 3 mg melatonin tablet 3 mg 2023-04 10:33: 25 Yes 3mg QD [facility] naloxone (Narcan) injection 0.04 mg naloxone (Narcan) injection 0.04 mg 2023-04 10:33: 25 Yes .04mg [facility] glucagon injection 1 mg glucagon injection 1 mg 2023-04 10:33: 25 Yes 1mg [facility] dooley [facility] Epic dextrose 50 % solution 25 g dextrose 50 % solution 25 g 2023-04 10:33: 25 Yes 25g Memoria soumya [facility]ev[facility]Melchor Epic dextrose 50 % solution 12.5 g dextrose 50 % solution 12.5 g 2023-04 10:33: 25 Yes 12.5g [facility] sodium chloride 0.9 % infusion 250 mL sodium chloride 0.9 % infusion 250 mL 2023-04 10:33: 25 Yes 250mL Memamber dooley Melchor Epic sodium chloride (NS) 0.9 % flush 10 mL sodium chloride (NS) 0.9 % flush 10 mL 2023-04 10:33: 25 Yes 10mL Memoria l [place] [facility] oxyCODONE (Roxicodone ) immediate release tablet 10 mg oxyCODONE (Roxicodone ) immediate release tablet 10 mg 2023-04 10:33: 25 02-08 17:15 :17 No 10mg Q4H 10 mg, Oral, Every 4 hours PRN, severe pain (7-10), Starting on 02/09/24 at 1033, For 5 days [facility] ondansetron (Zofran) injection 4 mg ondansetron (Zofran) injection 4 mg 2023-04 10:33: 25 02-08 17:15 :18 No 4mg Q8H 4 mg, Intravenou s, Every 8 hours PRN, vomiting, nausea, Starting on 02/09/24 at 1033 [facility] morphine PF injection 4 mg morphine PF injection 4 mg 2023-04 09:55: 00 02-08 09:55 :00 No 4mg 4 mg, Intravenou s, Once, On 02/09/24 at 0955, For 1 dose [facility] ketamine - 0.9% NaCl injection 25 mg ketamine - 0.9% NaCl injection 25 mg 2023-04 05:20: 00 02-08 05:07 :00 No 25mg 25 mg, Intravenou s, Administer over 2 Minutes, Once, On 02/09/24 at 0520, For 1 dose, Refer to ketamine policy. If anesthetic -level doses ordered, provider to remain in room during administra tion (ex. doses more than 0.35 mg/kg IV push or 4 mg/kg IM, or per policy). Give IV doses slowly over 1-3 minutes (max 0.5 mg/kg/min) . [facility] ondansetron (Zofran) injection 4 mg ondansetron (Zofran) injection 4 mg 2023-0420 03:40: 00 02-08 08:06 :00 No 4mg 4 mg, Intravenou s, Once, On 02/09/24 at 0340, For 1 dose [facility] morphine PF injection 4 mg morphine PF injection 4 mg 2023-04 03:40: 00 02-08 08:07 :00 No 4mg 4 mg, Intravenou s, Once, On 02/09/24 at 0340, For 1 dose [facility] ketamine - 0.9% NaCl injection 25 mg ketamine - 0.9% NaCl injection 25 mg 2023-04 03:35: 00 02-08 05:17 :00 No 25mg 25 mg, Intravenou s, Administer over 2 Minutes, Once, On 02/09/24 at 0335, For 1 dose, Refer to ketamine policy. If anesthetic -level doses ordered, provider to remain in room during administra tion (ex. doses more than 0.35 mg/kg IV push or 4 mg/kg IM, or per policy). Give IV doses slowly over 1-3 minutes (max 0.5 mg/kg/min) . [facility] magnesium sulfate in water 2 gram/50 mL (4 %) infusion 2 g 12-21 03:45: 00 12-21 04:01 :00 No 2g 2 g, IV Piggyback, Administer over 30 Minutes, ONCE, 1 dose, On 12/21/23 at 2245, Routine [facility] famotidine (PEPCID (PF)) injection 20 mg 12-21 03:15: 00 12-21 03:29 :00 No 20mg 20 mg, Slow IV Push, ONCE, 1 dose, On 12/21/23 at 2215, [facility] NaCl 0.9% (NS) bolus infusion 1,000 mL 12-21 02:45: 00 12-21 02:58 :00 No 1000mL at 999 mL/hr, 1,000 mL, IV Infusion, ONCE, 1 dose, On 12/21/23 at 2145, [facility]ANESSA [facility] MAGNESIUM GLYCINATE ORAL 10-22 13:44: 29 Yes Take by mouth. [facility] dicyclomine 10 mg capsule 10-22 00:00: 00 Yes [id number] 10mg Take 1 capsule by mouth 2 (two) times daily as needed for Abdominal pain. [facility] busPIRone 5 mg tablet 09-09 00:00: 00 Yes [id number] 5mg Take 1 tablet by mouth 2 (two) times daily as needed (anxiety). [facility] busPIRone 5 mg tablet 5-09 00:00: 00 09-09 00:00 :00 No [id number] 5mg Take 1 tablet by mouth 2 (two) times daily as needed (anxiety). [facility] fluconazole 150 mg tablet 3-29 00:00: 00 07-19 04:59 :00 No [id number] 150mg Take 1 tablet by mouth once now for 1 dose. [facility] Nitrofurant oin&Nit. Macrocryst (MACROBID) 100 mg capsule 07-16 00:00: 00 07-22 04:59 :00 No [id number] 100mg Take 1 capsule by mouth in the morning and 1 capsule in the evening. Do all this for 5 days. [facility] ondansetron (ZOFRAN (PF)) injection 4 mg 05-11 13:45: 00 05-11 12:46 :00 No 4mg 4 mg, Slow IV Push, ONCE, 1 dose, On 05/11/23 at 0745, Routine [facility] iopamidol (ISOVUE 370-500 mL) injection 90 mL 05-11 13:15: 00 05-11 13:30 :00 No [id number] 90mL 90 mL, Intravenou s, ONCE, 1 dose, On 05/11/23 at 0730, Routine [facility] NaCl 0.9% (NS) bolus infusion 1,000 mL 05-11 12:45: 00 05-11 14:23 :00 No 1000mL at 999 mL/hr, 1,000 mL, IV Infusion, ONCE, 1 dose, On 05/11/23 at 0645, STAT [facility] ondansetron 4 mg disintegrat ing tablet 05-11 00:00: 08-25 00:00 :00 No [id number] 4mg Take 1 tablet by mouth every 8 (eight) hours as needed for Nausea and Vomiting (N/V). [facility] memantine (NAMENDA) 5 mg tablet 2022-04 00:00: 00 08-25 00:00 :00 No [id number] 10mg Take 2 tablets by mouth in the morning and 2 tablets in the evening. [facility] amphetamine -dextroamph etamine 30 mg 24 hr capsule 8-29 00:00: 00 08-25 00:00 :00 No TAKE 1 CAPSULE BY MOUTH IN THE MORNING [facility] meclizine 25 mg tablet 4-11 00:00: 00 01-21 00:00 :00 No [id number] 25mg Take 1 tablet by mouth every 6 (six) hours as needed for Dizziness. [facility] ketorolac (TORADOL) tablet 20 mg 05-22 02:30: 00 05-22 01:35 :00 No 20mg 20 mg, Oral, ONCE NOW, 1 dose, On Sat05/21/22 at 2030, [facility] predniSONE (DELTASONE) tablet 40 mg 05-22 02:00: 00 05-22 02:07 :00 No 40mg 40 mg, Oral, ONCE, 1 dose, On Sat05/21/22 at 2000, [facility] ketorolac 10 mg tablet 05-21 00:00: 01-21 00:00 :00 No [id number] 10mg Take 1 tablet by mouth every 6 (six) hours as needed for Pain (scale 4-6) or Pain (scale 7-10). [facility] amoxicillin -clavulanat e 875-125 mg per tablet 05-21 00:00: 00 06-01 05:59 :00 No [id number] 1{tbl} Take 1 tablet by mouth every 12 (twelve) hours for 10 days. [facility] ibuprofen (IBU) tablet 600 mg 2021-04 13:30: 00 03-30 14:08 :00 No 600mg 600 mg, Oral, ONCE, 1 dose, On Sat03/30/22 at 0730, [facility]ES[facility] amoxicillin 500 mg tablet 2021-04 00:00: 00 04-10 05:59 :00 No [id number] 500mg Take 1 tablet by mouth in the morning and 1 tablet in the evening. Do all this for 10 days. [facility] norelgestro min-ethinyl estradiol 150-35 mcg/24 hr patch 2021-04 00:00: 00 01-21 00:00 :00 No [id number] 1{patch } Apply 1 Patch to skin weekly. [facility] ibuprofen (IBU) tablet 600 mg 2021-04 18:00: 00 Yes 600mg 600 mg, Oral, Q6H ABX, First dose on Sat02/28/22 at 1200, Until Discontinu ed, Routine [facility] ketorolac (TORADOL) injection 30 mg 2021-04 18:00: 00 02-28 17:59 :00 No 30mg 30 mg, Slow IV Push, Q6H ABX, 4 doses, First dose on Sat02/27/22 at 1200, Last dose on Sat02/28/22 at 0600, Routine [facility] gabapentin (NEURONTIN) capsule 300 mg 2021-04 14:00: 00 Yes 300mg 300 mg, Oral, TID, First dose on Sat02/27/22 at 0800, Until Discontinu ed, Routine [facility] buPROPion (WELLBUTRIN ) tablet 100 mg 2021-04 14:00: 00 Yes 100mg 100 mg, Oral, BID, First dose on Sat02/27/22 at 0800, Until Discontinu ed, Routine [facility] acetaminoph en (TYLENOL) tablet 650 mg 2021-04 12:00: 00 Yes 650mg 650 mg, Oral, Q6H ABX, First dose on Sat02/27/22 at 0600, Until Discontinu ed, Routine [facility] PNV no.95/nathan fum/folic ac ( ORAL) 2021-04 08:01: 58 02-27 00:00 :00 No Take by mouth. [facility] sodium chloride 0.9 % irrigation solution 2021-04 05:54: 00 Yes PRN, Starting on Sat02/26/22 at 2354, Until Discontinu ed, Intra-op [facility] lactated ringers IV infusion 1,000 mL 2021-04 03:00: 00 02-27 07:13 :16 No 1000mL at 125 mL/hr, 1,000 mL, IV Infusion, ONCE, 1 dose, On Sat02/26/22 at 2100, Routine [facility] rho(D) immune globulin (RHOGAM) syringe 300 mcg 2021-04 02:57: 35 Yes 300ug 300 mcg, Intramuscu lar, ONCE, For 1 dose, Conditiona l, Routine [facility] HYDROcodone -acetaminop hen (NORCO 5) 5-325 mg tablet 1 tablet 2021-04 02:57: 30 Yes 1{tbl} 1 tablet, Oral, Q6HPRN, Starting on Sat02/26/22 at 2056, Until Discontinu ed, Routine, Pain (scale 7-10), Alternate with Ibuprofen [facility] diphenhydrA MINE (BENADRYL) injection 25 mg 2021-04 02:57: 30 Yes 25mg 25 mg, Slow IV Push, Q6HPRN, Starting on Sat02/26/22 at 2056, Until Discontinu ed, Routine, Itching [facility] diphenhydrA MINE (BENADRYL) tablet 25 mg 2021-04 02:57: 30 Yes 25mg 25 mg, Oral, Q6HPRN, Starting on Sat02/26/22 at 2056, Until Discontinu ed, Routine, Sleep, Itching [facility] ondansetron (ZOFRAN (PF)) injection 4 mg 2021-04 02:57: 30 Yes 4mg 4 mg, Slow IV Push, Q8HPRN, Starting on Sat02/26/22 at 2056, Until Discontinu ed, Routine, Nausea and Vomiting (N/V) [facility] bisacodyL (DULCOLAX) suppository 10 mg 2021-04 02:57: 30 Yes 10mg 10 mg, Rectal, QDAILYPRN, Starting on Sat02/26/22 at 2056, Until Discontinu ed, Routine, Constipati on [facility] simethicone (GAS RELIEF (SIMETHICON E)) chewable tablet 160 mg 2021-04 02:57: 30 Yes 160mg 160 mg, Oral, PC+HSPRN, Starting on Sat02/26/22 at 2056, Until Discontinu ed, Routine, Gas [facility] docusate (COLACE) capsule 200 mg 2021-04 02:57: 30 Yes 200mg 200 mg, Oral, QDAILYPRN, Starting on Sat02/26/22 at 2056, Until Discontinu ed, Routine, Constipati on [facility] magnesium hydroxide (MILK OF MAGNESIA) 400 mg/5 mL suspension 30 mL 2021-04 02:57: 30 Yes 30mL 30 mL, Oral, QDAILYPRN, Starting on Sat02/26/22 at 2056, Until Discontinu ed, Routine, Constipati on [facility] lactated ringers IV infusion 1,000 mL 2021-04 02:57: 30 Yes 1000mL at 125 mL/hr, 1,000 mL, IV Infusion, PRN, 1 dose, Starting on Sat02/26/22 at 2056, Until Discontinu ed, Routine [facility] mupirocin (BACTROBAN OINT) 2 % skin ointment 2021-04 02:30: 00 Yes Intra-op [facility] betamethaso ne acet,sod phos (CELESTONE SOLUSPAN) 6 mg/mL injection 12 mg 2021-04 00:22: 00 02-27 00:23 :00 No 12mg 12 mg, Intramuscu lar, ONCE, 1 dose, On Sat02/26/22 at 1830, Routine [facility] acetaminoph en 325 mg tablet 2021-04 00:00: 00 03-28 00:00 :00 No [id number] 650mg Take 2 tablets by mouth every 6 (six) hours as needed for Pain (scale 1-3) or Pain (scale 4-6). [facility] vitamin w/FA tablet 2021-04 00:00: 00 03-28 00:00 :00 No [id number] 1{tbl} Take 1 tablet by mouth in the morning. [facility] docusate 100 mg capsule 2021-04 00:00: 00 03-28 00:00 :00 No [id number] 200mg Take 2 capsules by mouth once daily as needed for Constipati on. [facility] ferrous sulfate 325 mg (65 mg iron) tablet 2021-04 00:00: 00 03-28 00:00 :00 No [id number] 325mg Take 1 tablet by mouth in the morning and 1 tablet in the evening. [facility] ibuprofen 600 mg tablet 2021-04 00:00: 00 03-28 00:00 :00 No [id number] 600mg Take 1 tablet by mouth every 6 (six) hours as needed (Pain). Take with food or milk. [facility] HYDROcodone -acetaminop hen 5-325 mg tablet 2021-04 00:00: 00 03-07 05:59 :00 No [id number] 1{tbl} Take 1 tablet by mouth every 6 (six) hours as needed for Pain (scale 7-10) (Alternate with Ibuprofen) for up to 7 days. Indication s: acute pain [facility] gabapentin 300 mg capsule 2021-04 00:00: 00 03-05 05:59 :00 No [id number] 300mg Take 1 capsule by mouth in the morning and 1 capsule at noon and 1 capsule in the evening. Do all this for 5 days. [facility] sodium citrate-cit jaylen acid (BICITRA) 500-334 mg/5 mL solution 30 mL 2021-04 21:55: 25 02-27 01:28 :00 No 30mL 30 mL, Oral, PRE-PROCED URE ONCE, 1 dose, Starting on Sat02/26/22 at 1555, Until Discontinu ed, Routine, Surgery/Pr ocedure [facility] lactated ringers IV infusion 500 mL 2021-04 21:55: 25 02-27 02:57 :33 No 500mL at 999 mL/hr, 500 mL, IV Infusion, PRN - SEE INSTRUCTIO NS, Starting on Sat02/26/22 at 1555, Until Sat02/26/22 at 2056, Routine [facility] D5W-LR IV infusion 1,000 mL 2021-04 21:55: 25 02-27 02:57 :33 No 1000mL at 1-125 mL/hr, IV Infusion, TITRATE, Starting on Sat02/26/22 at 1555, Until Sat02/26/22 at 2056, Routine [facility] PNV no.95/nathan us fum/folic ac ( ORAL) 2021-04 19:48: 58 Yes Take by mouth. [facility] PNV no.95/nathan us fum/folic ac ( ORAL) 2021-04 15:52: 08 Yes Take by mouth. [facility] Nitrofurant oin&Nit. Macrocryst (MACROBID) 100 mg capsule 100 mg 2021-04 21:30: 00 02-25 20:43 :00 No 100mg 100 mg, Oral, ONCE, 1 dose, On 02/25/22 at 1530, Routine
Reason for Anti-Infec tive: Empiric Therapy for Suspected Infection< br>Empiric Therapy Site: Urine
D uration of therapy: 5 days [facility] PNV no.95/nathan us fum/folic ac ( ORAL) 2021-04 15:22: 42 Yes Take by mouth. [facility] Nitrofurant oin&Nit. Macrocryst 100 mg capsule 2021-04 00:00: 00 02-27 00:00 :00 No [id number] 100mg Take 1 capsule by mouth in the morning and 1 capsule in the evening. [facility] SUMAtriptan (IMITREX) tablet 50 mg 2021-04 01:30: 00 02-09 01:07 :00 No 50mg 50 mg, Oral, ONCE, 1 dose, On Carolin 02/08/22 at 2030, Routine [facility] magnesium sulfate in water 2 gram/50 mL (4 %) infusion 2 g 2021-04 01:30: 00 02-09 02:07 :00 No 2g 2 g, IV Piggyback, Administer over 60 Minutes, ONCE, 1 dose, On Carolin 02/08/22 at 2030, Routine [facility] D5W-LR IV infusion 1,000 mL 2021-04 01:00: 00 Yes 1000mL at 150 mL/hr, IV Infusion, CONTINUOUS , Starting on Carolin 02/08/22 at 2015, Until Discontinu ed, Routine [facility] NaCl 0.9% (NS) IV infusion 1,000 mL 2021-04 22:45: 00 02-08 22:30 :00 No 1000mL at 999 mL/hr, IV Infusion, ONCE, 1 dose, On Carolin 02/08/22 at 1745, Routine
Then D5LR at 150 ml/hr
[facility] ondansetron (ZOFRAN (PF)) injection 4 mg 2021-04 22:36: 00 02-08 22:50 :00 No 4mg 4 mg, Slow IV Push, ONCE, On Carolin 02/08/22 at 1745, For 1 dose
Do ses of ondansetro n 16 mg and above need to be administer ed via IV piggyback. For Dose >=24mg ECG monitoring is advisable.
[facility] PNV no.95/nathan us fum/folic ac ( ORAL) 2021-04 22:25: 04 Yes Take by mouth. [facility] PNV no.95/nathan us fum/folic ac ( ORAL) 2021-04 12:35: 03 Yes Take by mouth. [facility] magnesium oxide 400 mg (241.3 mg magnesium) tablet 2021-04 00:00: 00 02-27 00:00 :00 No [id number] 400mg Take 1 tablet by mouth in the morning. [facility] memantine 5 mg tablet 2021-04 00:00: 00 02-27 00:00 :00 No [id number] 5mg Take 1 tablet by mouth in the morning. [facility] D5W-LR IV infusion 1,000 mL 2021-04 00:15: 00 Yes 1000mL at 150 mL/hr, IV Infusion, CONTINUOUS , Starting on 02/03/22 at 1915, Until Discontinu ed, Routine [facility] magnesium sulfate in water 2 gram/50 mL (4 %) infusion 2 g 2021-04 00:15: 00 02-04 02:03 :00 No 2g 2 g, IV Piggyback, Administer over 60 Minutes, ONCE, 1 dose, On 02/03/22 at 1915, Routine [facility] NaCl 0.9% (NS) bolus infusion 1,000 mL 2021-04 00:00: 00 02-04 00:58 :00 No 1000mL at 999 mL/hr, 1,000 mL, IV Piggyback, ONCE, 1 dose, On 02/03/22 at 1900, STAT [facility] SUMAtriptan (IMITREX) injection 6 mg 2021-04 00:00: 00 02-03 23:44 :00 No 6mg 6 mg, Subcutaneo us, ONCE, 1 dose, On 02/03/22 at 1900, Routine [facility] metoclopram abisai HCl (REGLAN) injection 10 mg 2021-04 00:00: 00 02-03 23:55 :00 No 10mg 10 mg, Slow IV Push, ONCE, 1 dose, On 02/03/22 at 1900, Routine [facility] proCHLORper azine (COMPAZINE) tablet 10 mg 2021-04 22:51: 00 02-03 22:59 :00 No 10mg 10 mg, Oral, ONCE NOW, 1 dose, On Sat02/03/22 at 1800, Routine [facility] PNV no.95/nathan us fum/folic ac ( ORAL) 2021-04 21:51: 21 Yes Take by mouth. [facility] PNV no.95/nathan us fum/folic ac ( ORAL) 2021-04 14:13: 44 Yes Take by mouth. [facility] magnesium sulfate in water 2 gram/50 mL (4 %) infusion 2 g 2021-04 13:45: 00 02-02 14:37 :00 No 2g 2 g, IV Piggyback, Administer over 60 Minutes, ONCE, 1 dose, On Sat02/02/22 at 0845, Routine [facility] SUMAtriptan (IMITREX) tablet 50 mg 2021-04 13:45: 00 02-02 13:32 :00 No 50mg 50 mg, Oral, ONCE, 1 dose, On Sat02/02/22 at 0845, Routine [facility] buPROPion (WELLBUTRIN ) tablet 100 mg 2021-04 13:00: 00 Yes 100mg 100 mg, Oral, BID, First dose on Sat02/02/22 at 0800, Until Discontinu ed, Routine [facility] acetaminoph en (TYLENOL) tablet 650 mg 2021-04 09:27: 47 Yes 650mg 650 mg, Oral, Q6HPRN, Starting on Sat02/02/22 at 0427, Until Discontinu ed, Routine, headache [facility] alum-mag hydroxide-s imeth (MAALOX PLUS / MAG-AL PLUS) 200-200-20 mg/5 mL suspension 30 mL 2021-04 08:04: 11 Yes 30mL 30 mL, Oral, Q6HPRN, Starting on Sat02/02/22 at 0304, Until Discontinu ed, Routine, Indigestio n [facility] docusate (COLACE) capsule 200 mg 2021-04 08:04: 11 Yes 200mg 200 mg, Oral, QHSPRN, Starting on Sat02/02/22 at 0304, Until Discontinu ed, Routine, Constipati on [facility] magnesium hydroxide (MILK OF MAGNESIA) 400 mg/5 mL suspension 30 mL 2021-04 08:04: 11 Yes 30mL 30 mL, Oral, QDAILYPRN, Starting on Sat02/02/22 at 0304, Until Discontinu ed, Routine, Constipati on [facility] caffeine tablet 200 mg 2021-04 07:45: 00 02-02 07:00 :00 No 200mg 200 mg, Oral, ONCE NOW, 1 dose, On Sat02/02/22 at 0245, Routine [facility] proCHLORper azine (COMPAZINE) 10 mg in NaCl 0.9% (NS) piggyback 2021-04 07:30: 00 02-02 07:18 :00 No 10mg 10 mg, IV Piggyback, ONCE NOW, 1 dose, On Sat02/02/22 at 0230, 50 mL [facility] diphenhydrA MINE (BENADRYL) injection 25 mg 2021-04 05:15: 00 02-02 04:41 :00 No 25mg 25 mg, Intravenou s, ONCE, 1 dose, On Sat02/02/22 at 0015, Routine [facility] metoclopram abisai HCl (REGLAN) injection 10 mg 2021-04 05:15: 00 02-02 04:41 :00 No 10mg 10 mg, Slow IV Push, ONCE NOW, 1 dose, On Sat02/02/22 at 0015, Routine [facility] lactated ringers IV infusion 500 mL 2021-04 05:00: 00 02-02 04:38 :38 No 500mL at 999 mL/hr, 500 mL, Intravenou s, ONCE, 1 dose, On Sat02/02/22 at 0000, Routine [facility] SUMAtriptan 50 mg tablet 2022-1 0-14 00:00: 00 03-28 00:00 :00 No [id number] 50mg Take 1 tablet by mouth in the morning. [facility] magnesium oxide 400 mg (241.3 mg magnesium) tablet 2021-04 0-14 00:00: 00 02-07 00:00 :00 No [id number] 400mg Take 1 tablet by mouth in the morning. [facility] butalbital- acetaminoph en-caff 50-325-40 mg tablet 2021-04 00:00: 00 Yes [id number] 1{tbl} Take 1 tablet by mouth every 4 (four) hours as needed for Pain (scale 7-10). [facility] cetirizine 10 mg tablet 2021-04 00:00: 00 01-21 00:00 :00 No [id number] 10mg Take 1 tablet by mouth in the morning. [facility] fluticasone propionate 50 mcg/actuati on nasal spray 2021-04 00:00: 00 02-27 00:00 :00 No [id number] 2{spray } Use 2 Sprays in each nostril in the morning. [facility] butalbital- acetaminoph en-caff (ESGIC) 50-325-40 mg tablet 2 tablet 2021-04 20:15: 00 01-30 20:18 :00 No 2{tbl} 2 tablet, Oral, ONCE NOW, 1 dose, On Sat01/30/22 at 1515, Routine [facility] PNV no.95/nathan us fum/folic ac ( ORAL) 2021-04 17:37: 34 Yes Take by mouth. [facility] PNV no.95/nathan us fum/folic ac ( ORAL) 2021-04 16:58: 09 Yes Take by mouth. [facility] magnesium oxide 400 mg (241.3 mg magnesium) tablet 2021-04 00:00: 00 Yes [id number] 400mg Take 1 tablet by mouth in the morning. [facility] PNV no.95/nathan us fum/folic ac ( ORAL) 2021-04 0-10 00:06: 48 Yes Take by mouth. [facility] MAGNESIUM GLYCINATE ORAL 10-24 14:20: 54 Yes Take by mouth. [facility] buPROPion 100 mg tablet 10-24 00:00: 00 01-21 00:00 :00 No [id number] 100mg Take 1 tablet by mouth 2 (two) times daily. [facility] metoclopram abisai HCl 10 mg tablet -12 00:00: 00 02-27 00:00 :00 No [id number] 10mg Take 1 tablet by mouth every 6 (six) hours as needed for Nausea and Vomiting (N/V). [facility] iohexol (OMNIPAQUE 350 BULK-100 mL) injection 100 mL 01-15 15:47: 00 01-15 16:00 :00 No [id number] 100mL 100 mL, Intravenou s, ONCE, 1 dose, On 01/15/21 at 1100, Routine [facility] gadoteridol (PROHANCE-2 0 mL) injection 19.32 mL 01-15 01:51: 00 01-15 02:00 :00 No [id number] .2mL/kg 19.32 mL (0.2 mL/kg ?96.6 kg), Intravenou s, ONCE, 1 dose, On 01/14/21 at 2100, Routine [facility] amitriptyli ne 25 mg tablet 01-15 00:00: 00 02-15 04:59 :00 No [id number] 25mg Take 1 tablet by mouth at bedtime for 30 days. [facility] lidocaine 1% (PF) (XYLOCAINE) injection 01-13 20:50: 37 01-13 20:50 :37 No PRN, Starting on Sat01/13/21 at 1550, Until Sat01/13/21 at 1550, Routine [facility] LORazepam (ATIVAN) tablet 01-13 20:30: 00 01-13 20:30 :00 No Oral, PRN, Starting on Sat01/13/21 at 1530, Until Sat01/13/21 at 1530, Routine [facility] LORazepam (ATIVAN) tablet 1 mg 01-13 18:44: 14 Yes 1mg 1 mg, Oral, PRN - SEE INSTRUCTIO NS, 2 doses, Starting on Sat01/13/21 at 1344, Until Discontinu ed, Routine, Anxiety, to be given prior to LP under IR if needed [facility] magnesium oxide (MAG-OX 400) tablet 400 mg 01-13 14:00: 00 Yes 400mg 400 mg, Oral, DAILY, First dose on Sat01/13/21 at 0900, Until Discontinu ed, Routine [facility] pantoprazol e (PROTONIX) EC tablet 40 mg 01-13 14:00: 00 Yes 40mg 40 mg, Oral, DAILY, First dose on Sat01/13/21 at 0900, Until Discontinu ed, Routine [facility] heparin (porcine) injection 5,000 Units 01-13 13:00: 00 Yes 5000U 5,000 Units, Subcutaneo us, Q12H, First dose on Sat01/13/21 at 0800, Until Discontinu ed, Routine [facility] ondansetron (ZOFRAN (PF)) injection 4 mg 01-13 06:25: 13 Yes 4mg 4 mg, Slow IV Push, Q6HPRN, Starting on Sat01/13/21 at 0125, Until Discontinu ed, Routine, nausea [facility] NaCl 0.9% (NS) IV infusion 1,000 mL 01-13 05:45: 00 Yes 1000mL at 50 mL/hr, IV Infusion, CONTINUOUS , Starting on Sat01/13/21 at 0045, Until Discontinu ed, Routine [facility] acetaminoph en (TYLENOL) tablet 650 mg 01-13 05:32: 37 Yes 650mg 650 mg, Oral, Q6HPRN, Starting on Sat01/13/21 at 0032, Until Discontinu ed, Routine, Pain (scale 4-6) [facility] docusate (COLACE) capsule 100 mg 01-13 05:32: 37 Yes 100mg 100 mg, Oral, QDAILYPRN, Starting on Sat01/13/21 at 0032, Until Discontinu ed, Routine, Constipati on [facility] magnesium oxide 400 mg (241.3 mg magnesium) tablet 9-23 00:00: 00 08-01 00:00 :00 No [id number] 400mg Take 1 tablet by mouth daily. [facility] scopolamine transdermal 1 mg over 3 days patch 8-03 00:00: 00 01-15 00:00 :00 No [id number] 1.5mg Apply 1 Patch to area(s) every 72 (seventy-t wo) hours. [facility] amoxicillin 500 mg capsule 7-15 00:00: 00 01-15 00:00 :00 No TAKE 1 CAPSULE BY MOUTH EVERY 8 HOURS DIRECTED FOR 10 DAYS [facility] cefUROXime 500 mg tablet 4-19 00:00: 00 10-25 00:00 :00 No 500mg Take 500 mg by mouth 2 (two) times daily. [facility] norelgestro min-ethinyl estradiol (XULANE) 150-35 mcg/24 hr patch 6-04 00:00: 00 10-25 00:00 :00 No [id number] 1{patch } Apply 1 Patch to skin weekly. [facility] vitamin w/FA tablet 08-27 00:00: 00 10-25 00:00 :00 No [id number] 1{tbl} Take 1 tablet by mouth daily. [facility] docusate calcium 240 mg capsule 08-27 00:00: 00 10-25 00:00 :00 No [id number] 240mg Take 1 capsule by mouth once daily as needed for Constipati on. [facility] ferrous sulfate 325 mg (65 mg iron) tablet 08-27 00:00: 00 10-25 00:00 :00 No [id number] 325mg Take 1 tablet by mouth 2 (two) times daily. [facility] ibuprofen 600 mg tablet 08-27 00:00: 00 10-25 00:00 :00 No [id number] 600mg Take 1 tablet by mouth every 6 (six) hours as needed (Pain). Take with food or milk. [facility] Immunizations Ordered Immunization Name Filled Immunization Name Date Status Comments Source Influenza Virus Vaccine Quad IM, Preserv and ABX Free 6 MO-64 YRS 2022-01-17 00:00:00 Completed [facility] TDAP 2022-01-17 00:00:00 Completed [facility] Influenza Virus Vaccine Quad IM, Preserv and ABX Free 6 MO-64 YRS 2022-01-17 00:00:00 Completed [facility] TDAP 2022-01-17 00:00:00 Completed [facility] Influenza Virus Vaccine Quad IM, Preserv and ABX Free 6 MO-64 YRS 2022-01-17 00:00:00 Completed [facility] TDAP 2022-01-17 00:00:00 Completed [facility] Influenza Virus Vaccine Quad IM, Preserv and ABX Free 6 MO-64 YRS 2022-01-17 00:00:00 Completed [facility] TDAP 2022-01-17 00:00:00 Completed [facility] Influenza Virus Vaccine Quad IM, Preserv and ABX Free 6 MO-64 YRS 2022-01-17 00:00:00 Completed [facility] TDAP 2022-01-17 00:00:00 Completed [facility] Influenza Virus Vaccine Quad IM, Preserv and ABX Free 6 MO-64 YRS 2022-01-17 00:00:00 Completed [facility] TDAP 2022-01-17 00:00:00 Completed [facility] Influenza Virus Vaccine Quad IM, Preserv and ABX Free 6 MO-64 YRS 2022-01-17 00:00:00 Completed [facility] TDAP 2022-01-17 00:00:00 Completed [facility] Influenza Virus Vaccine Quad IM, Preserv and ABX Free 6 MO-64 YRS 2022-01-17 00:00:00 Completed [facility] TDAP 2022-01-17 00:00:00 Completed [facility] Influenza Virus Vaccine Quad IM, Preserv and ABX Free 6 MO-64 YRS 2022-01-17 00:00:00 Completed [facility] TDAP 2022-01-17 00:00:00 Completed [facility] Influenza Virus Vaccine Quad IM, Preserv and ABX Free 6 MO-64 YRS 2022-01-17 00:00:00 Completed [facility] TDAP 2022-01-17 00:00:00 Completed [facility] Influenza Virus Vaccine Quad IM, Preserv and ABX Free 6 MO-64 YRS 2022-01-17 00:00:00 Completed [facility] TDAP 2022-01-17 00:00:00 Completed [facility] Influenza Virus Vaccine Quad IM, Preserv and ABX Free 6 MO-64 YRS 2022-01-17 00:00:00 Completed [facility] TDAP 2022-01-17 00:00:00 Completed [facility] Influenza Virus Vaccine Quad IM, Preserv and ABX Free 6 MO-64 YRS 2022-01-17 00:00:00 Completed [facility] TDAP 2022-01-17 00:00:00 Completed [facility] Influenza Virus Vaccine Quad IM, Preserv and ABX Free 6 MO-64 YRS 2022-01-17 00:00:00 Completed [facility] TDAP 2022-01-17 00:00:00 Completed [facility] Influenza Virus Vaccine Quad IM, Preserv and ABX Free 6 MO-64 YRS 2022-01-17 00:00:00 Completed [facility] TDAP 2022-01-17 00:00:00 Completed [facility] Influenza Virus Vaccine Quad IM, Preserv and ABX Free 6 MO-64 YRS 2022-01-17 00:00:00 Completed [facility] TDAP 2022-01-17 00:00:00 Completed [facility] Influenza Virus Vaccine Quad IM, Preserv and ABX Free 6 MO-64 YRS 2022-01-17 00:00:00 Completed [facility] TDAP 2022-01-17 00:00:00 Completed [facility] Influenza Virus Vaccine Quad IM, Preserv and ABX Free 6 MO-64 YRS 2022-01-17 00:00:00 Completed [facility] TDAP 2022-01-17 00:00:00 Completed [facility] Influenza Virus Vaccine Quad IM, Preserv and ABX Free 6 MO-64 YRS 2022-01-17 00:00:00 Completed [facility] TDAP 2022-01-17 00:00:00 Completed [facility] Influenza Virus Vaccine Quad IM, Preserv and ABX Free 6 MO-64 YRS 2022-01-17 00:00:00 Completed [facility] TDAP 2022-01-17 00:00:00 Completed [facility] Influenza Virus Vaccine Quad IM, Preserv and ABX Free 6 MO-64 YRS 2022-01-17 00:00:00 Completed [facility] TDAP 2022-01-17 00:00:00 Completed [facility] Influenza Virus Vaccine Quad IM, Preserv and ABX Free 6 MO-64 YRS 2022-01-17 00:00:00 Completed [facility] TDAP 2022-01-17 00:00:00 Completed [facility] Influenza Virus Vaccine Quad IM, Preserv and ABX Free 6 MO-64 YRS 2022-01-17 00:00:00 Completed [facility] TDAP 2022-01-17 00:00:00 Completed [facility] Influenza Virus Vaccine Quad IM, Preserv and ABX Free 6 MO-64 YRS 2022-01-17 00:00:00 Completed [facility] TDAP 2022-01-17 00:00:00 Completed [facility] Influenza Virus Vaccine Quad IM, Preserv and ABX Free 6 MO-64 YRS 2022-01-17 00:00:00 Completed [facility] TDAP 2022-01-17 00:00:00 Completed [facility] Influenza Virus Vaccine Quad IM, Preserv and ABX Free 6 MO-64 YRS 2022-01-17 00:00:00 Completed [facility] TDAP 2022-01-17 00:00:00 Completed [facility] Influenza Virus Vaccine Quad IM, Preserv and ABX Free 6 MO-64 YRS 2022-01-17 00:00:00 Completed [facility] TDAP 2022-01-17 00:00:00 Completed [facility] Influenza Virus Vaccine Quad IM, Preserv and ABX Free 6 MO-64 YRS 2022-01-17 00:00:00 Completed [facility] TDAP 2022-01-17 00:00:00 Completed [facility] Influenza Virus Vaccine Quad IM, Preserv and ABX Free 6 MO-64 YRS 2022-01-17 00:00:00 Completed [facility] TDAP 2022-01-17 00:00:00 Completed [facility] Influenza Virus Vaccine Quad IM, Preserv and ABX Free 6 MO-64 YRS 2022-01-17 00:00:00 Completed [facility] TDAP 2022-01-17 00:00:00 Completed [facility] Influenza Virus Vaccine Quad IM, Preserv and ABX Free 6 MO-64 YRS 2022-01-17 00:00:00 Completed [facility] TDAP 2022-01-17 00:00:00 Completed [facility] Influenza Virus Vaccine Quad IM, Preserv and ABX Free 6 MO-64 YRS 2022-01-17 00:00:00 Completed [facility] TDAP 2022-01-17 00:00:00 Completed [facility] Influenza Virus Vaccine Quad IM, Preserv and ABX Free 6 MO-64 YRS 2022-01-17 00:00:00 Completed [facility] TDAP 2022-01-17 00:00:00 Completed [facility] Influenza Virus Vaccine Quad IM, Preserv and ABX Free 6 MO-64 YRS 2022-01-17 00:00:00 Completed [facility] TDAP 2022-01-17 00:00:00 Completed [facility] Influenza Virus Vaccine Quad IM, Preserv and ABX Free 6 MO-64 YRS 2022-01-17 00:00:00 Completed [facility] TDAP 2022-01-17 00:00:00 Completed [facility] Influenza Virus Vaccine Quad IM, Preserv and ABX Free 6 MO-64 YRS 2022-01-17 00:00:00 Completed [facility] TDAP 2022-01-17 00:00:00 Completed [facility] Influenza Virus Vaccine Quad IM, Preserv and ABX Free 6 MO-64 YRS 2022-01-17 00:00:00 Completed [facility] TDAP 2022-01-17 00:00:00 Completed [facility] Influenza Virus Vaccine Quad IM, Preserv and ABX Free 6 MO-64 YRS 2022-01-17 00:00:00 Completed [facility] TDAP 2022-01-17 00:00:00 Completed [facility] Influenza Virus Vaccine Quad IM, Preserv and ABX Free 6 MO-64 YRS 2022-01-17 00:00:00 Completed [facility] TDAP 2022-01-17 00:00:00 Completed [facility] Influenza Virus Vaccine Quad IM, Preserv and ABX Free 6 MO-64 YRS 2022-01-17 00:00:00 Completed [facility] TDAP 2022-01-17 00:00:00 Completed [facility] Influenza Virus Vaccine Quad IM, Preserv and ABX Free 6 MO-64 YRS 2022-01-17 00:00:00 Completed [facility] TDAP 2022-01-17 00:00:00 Completed [facility] Influenza Virus Vaccine Quad IM, Preserv and ABX Free 6 MO-64 YRS 2022-01-17 00:00:00 Completed [facility] TDAP 2022-01-17 00:00:00 Completed [facility] Influenza Virus Vaccine Quad IM, Preserv and ABX Free 6 MO-64 YRS 2022-01-17 00:00:00 Completed [facility] TDAP 2022-01-17 00:00:00 Completed [facility] Influenza Virus Vaccine Quad IM, Preserv and ABX Free 6 MO-64 YRS 2022-01-17 00:00:00 Completed [facility] TDAP 2022-01-17 00:00:00 Completed [facility] Influenza Virus Vaccine Quad IM, Preserv and ABX Free 6 MO-64 YRS 2022-01-17 00:00:00 Completed [facility] TDAP 2022-01-17 00:00:00 Completed [facility] Influenza Virus Vaccine Quad IM, Preserv and ABX Free 6 MO-64 YRS 2022-01-17 00:00:00 Completed [facility] TDAP 2022-01-17 00:00:00 Completed [facility] Influenza Virus Vaccine Quad IM, Preserv and ABX Free 6 MO-64 YRS 2022-01-17 00:00:00 Completed [facility] TDAP 2022-01-17 00:00:00 Completed [facility] Influenza Virus Vaccine Quad IM, Preserv and ABX Free 6 MO-64 YRS 2021-07-19 00:00:00 Completed [facility] Influenza Virus Vaccine Quad IM, Preserv and ABX Free 6 MO-64 YRS 2021-07-19 00:00:00 Completed [facility] Influenza Virus Vaccine Quad IM, Preserv and ABX Free 6 MO-64 YRS 2021-07-19 00:00:00 Completed [facility] Influenza Virus Vaccine Quad IM, Preserv and ABX Free 6 MO-64 YRS 2021-07-19 00:00:00 Completed [facility] Influenza Virus Vaccine Quad IM, Preserv and ABX Free 6 MO-64 YRS 2021-07-19 00:00:00 Completed [facility] Influenza Virus Vaccine Quad IM, Preserv and ABX Free 6 MO-64 YRS 2021-07-19 00:00:00 Completed [facility] Influenza Virus Vaccine Quad IM, Preserv and ABX Free 6 MO-64 YRS 2021-07-19 00:00:00 Completed [facility] Influenza Virus Vaccine Quad IM, Preserv and ABX Free 6 MO-64 YRS 2021-07-19 00:00:00 Completed [facility] Influenza Virus Vaccine Quad IM, Preserv and ABX Free 6 MO-64 YRS 2021-07-19 00:00:00 Completed [facility] Influenza Virus Vaccine Quad IM, Preserv and ABX Free 6 MO-64 YRS 2021-07-19 00:00:00 Completed [facility] Influenza Virus Vaccine Quad IM, Preserv and ABX Free 6 MO-64 YRS 2021-07-19 00:00:00 Completed [facility] Influenza Virus Vaccine Quad IM, Preserv and ABX Free 6 MO-64 YRS 2021-07-19 00:00:00 Completed [facility] Influenza Virus Vaccine Quad IM, Preserv and ABX Free 6 MO-64 YRS 2021-07-19 00:00:00 Completed [facility] Influenza Virus Vaccine Quad IM, Preserv and ABX Free 6 MO-64 YRS 2021-07-19 00:00:00 Completed [facility] Influenza Virus Vaccine Quad IM, Preserv and ABX Free 6 MO-64 YRS 2021-07-19 00:00:00 Completed [facility] Influenza Virus Vaccine Quad IM, Preserv and ABX Free 6 MO-64 YRS 2021-07-19 00:00:00 Completed [facility] Influenza Virus Vaccine Quad IM, Preserv and ABX Free 6 MO-64 YRS 2021-07-19 00:00:00 Completed [facility] Influenza Virus Vaccine Quad IM, Preserv and ABX Free 6 MO-64 YRS 2021-07-19 00:00:00 Completed [facility] Influenza Virus Vaccine Quad IM, Preserv and ABX Free 6 MO-64 YRS 2021-07-19 00:00:00 Completed [facility] Influenza Virus Vaccine Quad IM, Preserv and ABX Free 6 MO-64 YRS 2021-07-19 00:00:00 Completed [facility] Influenza Virus Vaccine Quad IM, Preserv and ABX Free 6 MO-64 2021-07-19 00:00:00 Completed [facility] Influenza Virus Vaccine Quad IM, Preserv and ABX Free 6 MO-64 YRS 2021-07-19 00:00:00 Completed [facility] Influenza Virus Vaccine Quad IM, Preserv and ABX Free 6 MO-64 YRS 2021-07-19 00:00:00 Completed [facility] Influenza Virus Vaccine Quad IM, Preserv and ABX Free 6 MO-64 YRS 2021-07-19 00:00:00 Completed [facility] Influenza Virus Vaccine Quad IM, Preserv and ABX Free 6 MO-64 YRS 2021-07-19 00:00:00 Completed [facility] Influenza Virus Vaccine Quad IM, Preserv and ABX Free 6 MO-64 YRS 2021-07-19 00:00:00 Completed [facility] Influenza Virus Vaccine Quad IM, Preserv and ABX Free 6 MO-64 YRS 2021-07-19 00:00:00 Completed [facility] Influenza Virus Vaccine Quad IM, Preserv and ABX Free 6 MO-64 YRS 2021-07-19 00:00:00 Completed [facility] Influenza Virus Vaccine Quad IM, Preserv and ABX Free 6 MO-64 YRS 2021-07-19 00:00:00 Completed [facility] Influenza Virus Vaccine Quad IM, Preserv and ABX Free 6 MO-64 YRS 2021-07-19 00:00:00 Completed [facility] Influenza Virus Vaccine Quad IM, Preserv and ABX Free 6 MO-64 YRS 2021-07-19 00:00:00 Completed [facility] Influenza Virus Vaccine Quad IM, Preserv and ABX Free 6 MO-64 YRS 2021-07-19 00:00:00 Completed [facility] Influenza Virus Vaccine Quad IM, Preserv and ABX Free 6 MO-64 YRS 2021-07-19 00:00:00 Completed [facility] Influenza Virus Vaccine Quad IM, Preserv and ABX Free 6 MO-64 YRS 2021-07-19 00:00:00 Completed [facility] Influenza Virus Vaccine Quad IM, Preserv and ABX Free 6 MO-64 YRS 2021-07-19 00:00:00 Completed [facility] Influenza Virus Vaccine Quad IM, Preserv and ABX Free 6 MO-64 YRS 2021-07-19 00:00:00 Completed [facility] Influenza Virus Vaccine Quad IM, Preserv and ABX Free 6 MO-64 YRS 2021-07-19 00:00:00 Completed [facility] Influenza Virus Vaccine Quad IM, Preserv and ABX Free 6 MO-64 YRS 2021-07-19 00:00:00 Completed [facility] Influenza Virus Vaccine Quad IM, Preserv and ABX Free 6 MO-64 YRS 2021-07-19 00:00:00 Completed [facility] Influenza Virus Vaccine Quad IM, Preserv and ABX Free 6 MO-64 YRS 2021-07-19 00:00:00 Completed [facility] Influenza Virus Vaccine Quad IM, Preserv and ABX Free 6 MO-64 YRS 2021-07-19 00:00:00 Completed [facility] Influenza Virus Vaccine Quad IM, Preserv and ABX Free 6 MO-64 YRS 2021-07-19 00:00:00 Completed [facility] Influenza Virus Vaccine Quad IM, Preserv and ABX Free 6 MO-64 YRS 2021-07-19 00:00:00 Completed [facility] Influenza Virus Vaccine Quad IM, Preserv and ABX Free 6 MO-64 YRS 2021-07-19 00:00:00 Completed [facility] Influenza Virus Vaccine Quad IM, Preserv and ABX Free 6 MO-64 YRS 2021-07-19 00:00:00 Completed [facility] Influenza Virus Vaccine Quad IM, Preserv and ABX Free 6 MO-64 YRS 2021-07-19 00:00:00 Completed [facility] Influenza Virus Vaccine Quad IM, Preserv and ABX Free 6 MO-64 YRS 2021-07-19 00:00:00 Completed [facility] Influenza Virus Vaccine Quad IM, Preserv and ABX Free 6 MO-64 YRS 2021-07-19 00:00:00 Completed [facility] Influenza Virus Vaccine Quad IM, Preserv and ABX Free 6 MO-64 YRS 2021-07-19 00:00:00 Completed [facility] Influenza Virus Vaccine Quad IM, Preserv and ABX Free 6 MO-64 YRS 2021-07-19 00:00:00 Completed [facility] Influenza Virus Vaccine Quad IM, Preserv and ABX Free 6 MO-64 YRS 2021-07-19 00:00:00 Completed [facility] Influenza Virus Vaccine Quad IM, Preserv and ABX Free 6 MO-64 YRS 2021-07-19 00:00:00 Completed [facility] Influenza Virus Vaccine Quad IM, Preserv and ABX Free 6 MO-64 YRS 2021-07-19 00:00:00 Completed [facility] Influenza Virus Vaccine Quad IM, Preserv and ABX Free 6 MO-64 YRS 2021-07-19 00:00:00 Completed [facility] Influenza Virus Vaccine Quad IM, Preserv and ABX Free 6 MO-64 YRS 2021-07-19 00:00:00 Completed [facility] Influenza Virus Vaccine Quad IM, Preserv and ABX Free 6 MO-64 YRS 2021-07-19 00:00:00 Completed [facility] Influenza Virus Vaccine Quad IM, Preserv and ABX Free 6 MO-64 YRS 2021-07-19 00:00:00 Completed [facility] Influenza Virus Vaccine Quad IM, Preserv and ABX Free 6 MO-64 YRS 2021-07-19 00:00:00 Completed [facility] Influenza Virus Vaccine Quad IM, Preserv and ABX Free 6 MO-64 YRS 2021-07-19 00:00:00 Completed [facility] Influenza Virus Vaccine Quad IM, Preserv and ABX Free 6 MO-64 YRS 2021-07-19 00:00:00 Completed [facility] Influenza Virus Vaccine Quad IM, Preserv and ABX Free 6 MO-64 YRS 2021-07-19 00:00:00 Completed [facility] Influenza Virus Vaccine Quad IM, Preserv and ABX Free 6 MO-64 YRS 2021-07-19 00:00:00 Completed [facility] Influenza Virus Vaccine Quad IM, Preserv and ABX Free 6 MO-64 YRS 2021-07-19 00:00:00 Completed [facility] Influenza Virus Vaccine Quad IM, Preserv and ABX Free 6 MO-64 YRS 2021-07-19 00:00:00 Completed [facility] Influenza Virus Vaccine Quad IM, Preserv and ABX Free 6 MO-64 YRS 2021-07-19 00:00:00 Completed [facility] Influenza Virus Vaccine Quad IM, Preserv and ABX Free 6 MO-64 YRS 2021-07-19 00:00:00 Completed [facility] Influenza Virus Vaccine Quad IM, Preserv and ABX Free 6 MO-64 YRS 2021-07-19 00:00:00 Completed [facility] Influenza Virus Vaccine Quad IM, Preserv and ABX Free 6 MO-64 YRS 2021-07-19 00:00:00 Completed [facility] Influenza Virus Vaccine Quad IM, Preserv and ABX Free 6 MO-64 YRS 2021-07-19 00:00:00 Completed [facility] Influenza Virus Vaccine Quad IM, Preserv and ABX Free 6 MO-64 YRS 2021-07-19 00:00:00 Completed [facility] TDAP (ADACEL) VACCINE 2019-06-29 00:00:00 Completed [facility] TDAP (ADACEL) VACCINE 2019-06-29 00:00:00 Completed [facility] TDAP (ADACEL) VACCINE 2019-06-29 00:00:00 Completed [facility] TDAP (ADACEL) VACCINE 2019-06-29 00:00:00 Completed [facility] TDAP (ADACEL) VACCINE 2019-06-29 00:00:00 Completed [facility] TDAP (ADACEL) VACCINE 2019-06-29 00:00:00 Completed [facility] TDAP (ADACEL) VACCINE 2019-06-29 00:00:00 Completed [facility] TDAP (ADACEL) VACCINE 2019-06-29 00:00:00 Completed [facility] TDAP (ADACEL) VACCINE 2019-06-29 00:00:00 Completed [facility] TDAP (ADACEL) VACCINE 2019-06-29 00:00:00 Completed [facility] TDAP (ADACEL) VACCINE 2019-06-29 00:00:00 Completed [facility] TDAP (ADACEL) VACCINE 2019-06-29 00:00:00 Completed [facility] TDAP (ADACEL) VACCINE 2019-06-29 00:00:00 Completed [facility] TDAP (ADACEL) VACCINE 2019-06-29 00:00:00 Completed [facility] TDAP (ADACEL) VACCINE 2019-06-29 00:00:00 Completed [facility] TDAP (ADACEL) VACCINE 2019-06-29 00:00:00 Completed [facility] TDAP (ADACEL) VACCINE 2019-06-29 00:00:00 Completed [facility] TDAP (ADACEL) VACCINE 2019-06-29 00:00:00 Completed [facility] TDAP (ADACEL) VACCINE 2019-06-29 00:00:00 Completed [facility] TDAP (ADACEL) VACCINE 2019-06-29 00:00:00 Completed [facility] TDAP (ADACEL) VACCINE 2019-06-29 00:00:00 Completed [facility] TDAP (ADACEL) VACCINE 2019-06-29 00:00:00 Completed [facility] TDAP (ADACEL) VACCINE 2019-06-29 00:00:00 Completed [facility] TDAP (ADACEL) VACCINE 2019-06-29 00:00:00 Completed [facility] TDAP (ADACEL) VACCINE 2019-06-29 00:00:00 Completed [facility] TDAP (ADACEL) VACCINE 2019-06-29 00:00:00 Completed [facility] TDAP (ADACEL) VACCINE 2019-06-29 00:00:00 Completed [facility] TDAP (ADACEL) VACCINE 2019-06-29 00:00:00 Completed [facility] TDAP (ADACEL) VACCINE 2019-06-29 00:00:00 Completed [facility] TDAP (ADACEL) VACCINE 2019-06-29 00:00:00 Completed [facility] TDAP (ADACEL) VACCINE 2019-06-29 00:00:00 Completed [facility] TDAP (ADACEL) VACCINE 2019-06-29 00:00:00 Completed [facility] TDAP (ADACEL) VACCINE 2019-06-29 00:00:00 Completed [facility] TDAP (ADACEL) VACCINE 2019-06-29 00:00:00 Completed [facility] TDAP (ADACEL) VACCINE 2019-06-29 00:00:00 Completed [facility] TDAP (ADACEL) VACCINE 2019-06-29 00:00:00 Completed [facility] TDAP (ADACEL) VACCINE 2019-06-29 00:00:00 Completed [facility] TDAP (ADACEL) VACCINE 2019-06-29 00:00:00 Completed [facility] TDAP (ADACEL) VACCINE 2019-06-29 00:00:00 Completed [facility] TDAP (ADACEL) VACCINE 2019-06-29 00:00:00 Completed [facility] TDAP (ADACEL) VACCINE 2019-06-29 00:00:00 Completed [facility] TDAP (ADACEL) VACCINE 2019-06-29 00:00:00 Completed [facility] TDAP (ADACEL) VACCINE 2019-06-29 00:00:00 Completed [facility] TDAP (ADACEL) VACCINE 2019-06-29 00:00:00 Completed [facility] TDAP (ADACEL) VACCINE 2019-06-29 00:00:00 Completed [facility] TDAP (ADACEL) VACCINE 2019-06-29 00:00:00 Completed [facility] TDAP (ADACEL) VACCINE 2019-06-29 00:00:00 Completed [facility] TDAP (ADACEL) VACCINE 2019-06-29 00:00:00 Completed [facility] TDAP (ADACEL) VACCINE 2019-06-29 00:00:00 Completed [facility] TDAP (ADACEL) VACCINE 2019-06-29 00:00:00 Completed [facility] TDAP (ADACEL) VACCINE 2019-06-29 00:00:00 Completed [facility] TDAP (ADACEL) VACCINE 2019-06-29 00:00:00 Completed [facility] TDAP (ADACEL) VACCINE 2019-06-29 00:00:00 Completed [facility] TDAP (ADACEL) VACCINE 2019-06-29 00:00:00 Completed [facility] TDAP (ADACEL) VACCINE 2019-06-29 00:00:00 Completed [facility] TDAP (ADACEL) VACCINE 2019-06-29 00:00:00 Completed [facility] TDAP (ADACEL) VACCINE 2019-06-29 00:00:00 Completed [facility] TDAP (ADACEL) VACCINE 2019-06-29 00:00:00 Completed [facility] TDAP (ADACEL) VACCINE 2019-06-29 00:00:00 Completed [facility] TDAP (ADACEL) VACCINE 2019-06-29 00:00:00 Completed [facility] TDAP (ADACEL) VACCINE 2019-06-29 00:00:00 Completed [facility] TDAP (ADACEL) VACCINE 2019-06-29 00:00:00 Completed [facility] TDAP (ADACEL) VACCINE 2019-06-29 00:00:00 Completed [facility] TDAP (ADACEL) VACCINE 2019-06-29 00:00:00 Completed [facility] TDAP (ADACEL) VACCINE 2019-06-29 00:00:00 Completed [facility] TDAP (ADACEL) VACCINE 2019-06-29 00:00:00 Completed [facility] TDAP (ADACEL) VACCINE 2019-06-29 00:00:00 Completed [facility] TDAP (ADACEL) VACCINE 2019-06-29 00:00:00 Completed [facility] TDAP (ADACEL) VACCINE 2019-06-29 00:00:00 Completed [facility] TDAP (ADACEL) VACCINE 2019-06-29 00:00:00 Completed [facility] TDAP (ADACEL) VACCINE 2019-06-29 00:00:00 Completed [facility] TDAP (ADACEL) VACCINE 2019-06-29 00:00:00 Completed [facility] TDAP (ADACEL) VACCINE 2019-06-29 00:00:00 Completed [facility] TDAP (ADACEL) VACCINE 2019-06-29 00:00:00 Completed [facility] TDAP (ADACEL) VACCINE 2019-06-29 00:00:00 Completed [facility] Influenza Virus Vaccine Quad .5 mL IM 6+ MO 2019-02-11 00:00:00 Completed [facility] Influenza Virus Vaccine Quad .5 mL IM 6+ MO 2019-02-11 00:00:00 Completed [facility] Influenza Virus Vaccine Quad .5 mL IM 6+ MO 2019-02-11 00:00:00 Completed [facility] Influenza Virus Vaccine Quad .5 mL IM 6+ MO 2019-02-11 00:00:00 Completed [facility] Influenza Virus Vaccine Quad .5 mL IM 6+ MO 2019-02-11 00:00:00 Completed [facility] Influenza Virus Vaccine Quad .5 mL IM 6+ MO 2019-02-11 00:00:00 Completed [facility] Influenza Virus Vaccine Quad .5 mL IM 6+ MO 2019-02-11 00:00:00 Completed [facility] Influenza Virus Vaccine Quad .5 mL IM 6+ MO 2019-02-11 00:00:00 Completed [facility] Influenza Virus Vaccine Quad .5 mL IM 6+ MO 2019-02-11 00:00:00 Completed [facility] Influenza Virus Vaccine Quad .5 mL IM 6+ MO 2019-02-11 00:00:00 Completed [facility] Influenza Virus Vaccine Quad .5 mL IM 6+ MO 2019-02-11 00:00:00 Completed [facility] Influenza Virus Vaccine Quad .5 mL IM 6+ MO 2019-02-11 00:00:00 Completed [facility] Influenza Virus Vaccine Quad .5 mL IM 6+ MO 2019-02-11 00:00:00 Completed [facility] Influenza Virus Vaccine Quad .5 mL IM 6+ MO 2019-02-11 00:00:00 Completed [facility] Influenza Virus Vaccine Quad .5 mL IM 6+ MO 2019-02-11 00:00:00 Completed [facility] Influenza Virus Vaccine Quad .5 mL IM 6+ MO 2019-02-11 00:00:00 Completed [facility] Influenza Virus Vaccine Quad .5 mL IM 6+ MO 2019-02-11 00:00:00 Completed [facility] Influenza Virus Vaccine Quad .5 mL IM 6+ MO 2019-02-11 00:00:00 Completed [facility] Influenza Virus Vaccine Quad .5 mL IM 6+ MO 2019-02-11 00:00:00 Completed [facility] Influenza Virus Vaccine Quad .5 mL IM 6+ MO 2019-02-11 00:00:00 Completed [facility] Influenza Virus Vaccine Quad .5 mL IM 6+ MO 2019-02-11 00:00:00 Completed [facility] Influenza Virus Vaccine Quad .5 mL IM 6+ MO 2019-02-11 00:00:00 Completed [facility] Influenza Virus Vaccine Quad .5 mL IM 6+ MO 2019-02-11 00:00:00 Completed [facility] Influenza Virus Vaccine Quad .5 mL IM 6+ MO 2019-02-11 00:00:00 Completed [facility] Influenza Virus Vaccine Quad .5 mL IM 6+ MO 2019-02-11 00:00:00 Completed [facility] Influenza Virus Vaccine Quad .5 mL IM 6+ MO 2019-02-11 00:00:00 Completed [facility] Influenza Virus Vaccine Quad .5 mL IM 6+ MO 2019-02-11 00:00:00 Completed [facility] Influenza Virus Vaccine Quad .5 mL IM 6+ MO 2019-02-11 00:00:00 Completed [facility] Influenza Virus Vaccine Quad .5 mL IM 6+ MO 2019-02-11 00:00:00 Completed [facility] Influenza Virus Vaccine Quad .5 mL IM 6+ MO 2019-02-11 00:00:00 Completed [facility] Influenza Virus Vaccine Quad .5 mL IM 6+ MO 2019-02-11 00:00:00 Completed [facility] Influenza Virus Vaccine Quad .5 mL IM 6+ MO 2019-02-11 00:00:00 Completed [facility] Influenza Virus Vaccine Quad .5 mL IM 6+ MO 2019-02-11 00:00:00 Completed [facility] Influenza Virus Vaccine Quad .5 mL IM 6+ MO 2019-02-11 00:00:00 Completed [facility] Influenza Virus Vaccine Quad .5 mL IM 6+ MO 2019-02-11 00:00:00 Completed [facility] Influenza Virus Vaccine Quad .5 mL IM 6+ MO 2019-02-11 00:00:00 Completed [facility] Influenza Virus Vaccine Quad .5 mL IM 6+ MO 2019-02-11 00:00:00 Completed [facility] Influenza Virus Vaccine Quad .5 mL IM 6+ MO 2019-02-11 00:00:00 Completed [facility] Influenza Virus Vaccine Quad .5 mL IM 6+ MO 2019-02-11 00:00:00 Completed [facility] Influenza Virus Vaccine Quad .5 mL IM 6+ MO 2019-02-11 00:00:00 Completed [facility] Influenza Virus Vaccine Quad .5 mL IM 6+ MO 2019-02-11 00:00:00 Completed [facility] Influenza Virus Vaccine Quad .5 mL IM 6+ MO 2019-02-11 00:00:00 Completed [facility] Influenza Virus Vaccine Quad .5 mL IM 6+ MO 2019-02-11 00:00:00 Completed [facility] Influenza Virus Vaccine Quad .5 mL IM 6+ MO 2019-02-11 00:00:00 Completed [facility] Influenza Virus Vaccine Quad .5 mL IM 6+ MO 2019-02-11 00:00:00 Completed [facility] Influenza Virus Vaccine Quad .5 mL IM 6+ MO 2019-02-11 00:00:00 Completed [facility] Influenza Virus Vaccine Quad .5 mL IM 6+ MO 2019-02-11 00:00:00 Completed [facility] Influenza Virus Vaccine Quad .5 mL IM 6+ MO 2019-02-11 00:00:00 Completed [facility] Influenza Virus Vaccine Quad .5 mL IM 6+ MO 2019-02-11 00:00:00 Completed [facility] Influenza Virus Vaccine Quad .5 mL IM 6+ MO 2019-02-11 00:00:00 Completed [facility] Influenza Virus Vaccine Quad .5 mL IM 6+ MO 2019-02-11 00:00:00 Completed [facility] Influenza Virus Vaccine Quad .5 mL IM 6+ MO 2019-02-11 00:00:00 Completed [facility] Influenza Virus Vaccine Quad .5 mL IM 6+ MO 2019-02-11 00:00:00 Completed [facility] Influenza Virus Vaccine Quad .5 mL IM 6+ MO 2019-02-11 00:00:00 Completed [facility] Influenza Virus Vaccine Quad .5 mL IM 6+ MO 2019-02-11 00:00:00 Completed [facility] Influenza Virus Vaccine Quad .5 mL IM 6+ MO 2019-02-11 00:00:00 Completed [facility] Influenza Virus Vaccine Quad .5 mL IM 6+ MO 2019-02-11 00:00:00 Completed [facility] Influenza Virus Vaccine Quad .5 mL IM 6+ MO 2019-02-11 00:00:00 Completed [facility] Influenza Virus Vaccine Quad .5 mL IM 6+ MO 2019-02-11 00:00:00 Completed [facility] Influenza Virus Vaccine Quad .5 mL IM 6+ MO 2019-02-11 00:00:00 Completed [facility] Influenza Virus Vaccine Quad .5 mL IM 6+ MO 2019-02-11 00:00:00 Completed [facility] Influenza Virus Vaccine Quad .5 mL IM 6+ MO 2019-02-11 00:00:00 Completed [facility] Influenza Virus Vaccine Quad .5 mL IM 6+ MO 2019-02-11 00:00:00 Completed [facility] Influenza Virus Vaccine Quad .5 mL IM 6+ MO 2019-02-11 00:00:00 Completed [facility] Influenza Virus Vaccine Quad .5 mL IM 6+ MO 2019-02-11 00:00:00 Completed [facility] Influenza Virus Vaccine Quad .5 mL IM 6+ MO 2019-02-11 00:00:00 Completed [facility] Influenza Virus Vaccine Quad .5 mL IM 6+ MO 2019-02-11 00:00:00 Completed [facility] Influenza Virus Vaccine Quad .5 mL IM 6+ MO 2019-02-11 00:00:00 Completed [facility] Influenza Virus Vaccine Quad .5 mL IM 6+ MO 2019-02-11 00:00:00 Completed [facility] Influenza Virus Vaccine Quad .5 mL IM 6+ MO 2019-02-11 00:00:00 Completed [facility] Influenza Virus Vaccine Quad .5 mL IM 6+ MO 2019-02-11 00:00:00 Completed [facility] Influenza Virus Vaccine Quad .5 mL IM 6+ MO 2019-02-11 00:00:00 Completed [facility] Influenza Virus Vaccine Quad .5 mL IM 6+ MO 2019-02-11 00:00:00 Completed [facility] Influenza Virus Vaccine Quad .5 mL IM 6+ MO 2019-02-11 00:00:00 Completed [facility] Influenza Virus Vaccine Quad .5 mL IM 6+ MO 2019-02-11 00:00:00 Completed [facility] Varicella (varivax)(chicken pox) 2018-02-12 00:00:00 Completed [facility] Varicella (varivax)(chicken pox) 2018-02-12 00:00:00 Completed [facility] Varicella (varivax)(chicken pox) 2018-02-12 00:00:00 Completed [facility] Varicella (varivax)(chicken pox) 2018-02-12 00:00:00 Completed [facility] Varicella (varivax)(chicken pox) 2018-02-12 00:00:00 Completed [facility] Varicella (varivax)(chicken pox) 2018-02-12 00:00:00 Completed [facility] Varicella (varivax)(chicken pox) 2018-02-12 00:00:00 Completed [facility] Varicella (varivax)(chicken pox) 2018-02-12 00:00:00 Completed [facility] Varicella (varivax)(chicken pox) 2018-02-12 00:00:00 Completed [facility] Varicella (varivax)(chicken pox) 2018-02-12 00:00:00 Completed [facility] Varicella (varivax)(chicken pox) 2018-02-12 00:00:00 Completed [facility] Varicella (varivax)(chicken pox) 2018-02-12 00:00:00 Completed [facility] Varicella (varivax)(chicken pox) 2018-02-12 00:00:00 Completed [facility] Varicella (varivax)(chicken pox) 2018-02-12 00:00:00 Completed [facility] Varicella (varivax)(chicken pox) 2018-02-12 00:00:00 Completed [facility] Varicella (varivax)(chicken pox) 2018-02-12 00:00:00 Completed [facility] Varicella (varivax)(chicken pox) 2018-02-12 00:00:00 Completed [facility] Varicella (varivax)(chicken pox) 2018-02-12 00:00:00 Completed [facility] Varicella (varivax)(chicken pox) 2018-02-12 00:00:00 Completed [facility] Varicella (varivax)(chicken pox) 2018-02-12 00:00:00 Completed [facility] Varicella (varivax)(chicken pox) 2018-02-12 00:00:00 Completed [facility] Varicella (varivax)(chicken pox) 2018-02-12 00:00:00 Completed [facility] Varicella (varivax)(chicken pox) 2018-02-12 00:00:00 Completed [facility] Varicella (varivax)(chicken pox) 2018-02-12 00:00:00 Completed [facility] Varicella (varivax)(chicken pox) 2018-02-12 00:00:00 Completed [facility] Varicella (varivax)(chicken pox) 2018-02-12 00:00:00 Completed [facility] Varicella (varivax)(chicken pox) 2018-02-12 00:00:00 Completed [facility] Varicella (varivax)(chicken pox) 2018-02-12 00:00:00 Completed [facility] Varicella (varivax)(chicken pox) 2018-02-12 00:00:00 Completed [facility] Varicella (varivax)(chicken pox) 2018-02-12 00:00:00 Completed [facility] Varicella (varivax)(chicken pox) 2018-02-12 00:00:00 Completed [facility] Varicella (varivax)(chicken pox) 2018-02-12 00:00:00 Completed [facility] Varicella (varivax)(chicken pox) 2018-02-12 00:00:00 Completed [facility] Varicella (varivax)(chicken pox) 2018-02-12 00:00:00 Completed [facility] Varicella (varivax)(chicken pox) 2018-02-12 00:00:00 Completed [facility] Varicella (varivax)(chicken pox) 2018-02-12 00:00:00 Completed [facility] Varicella (varivax)(chicken pox) 2018-02-12 00:00:00 Completed [facility] Varicella (varivax)(chicken pox) 2018-02-12 00:00:00 Completed [facility] Varicella (varivax)(chicken pox) 2018-02-12 00:00:00 Completed [facility] Varicella (varivax)(chicken pox) 2018-02-12 00:00:00 Completed [facility] Varicella (varivax)(chicken pox) 2018-02-12 00:00:00 Completed [facility] Varicella (varivax)(chicken pox) 2018-02-12 00:00:00 Completed [facility] Varicella (varivax)(chicken pox) 2018-02-12 00:00:00 Completed [facility] Varicella (varivax)(chicken pox) 2018-02-12 00:00:00 Completed [facility] Varicella (varivax)(chicken pox) 2018-02-12 00:00:00 Completed [facility] Varicella (varivax)(chicken pox) 2018-02-12 00:00:00 Completed [facility] Varicella (varivax)(chicken pox) 2018-02-12 00:00:00 Completed [facility] Varicella (varivax)(chicken pox) 2018-02-12 00:00:00 Completed [facility] Varicella (varivax)(chicken pox) 2018-02-12 00:00:00 Completed [facility] Varicella (varivax)(chicken pox) 2018-02-12 00:00:00 Completed [facility] Varicella (varivax)(chicken pox) 2018-02-12 00:00:00 Completed [facility] Varicella (varivax)(chicken pox) 2018-02-12 00:00:00 Completed [facility] Varicella (varivax)(chicken pox) 2018-02-12 00:00:00 Completed [facility] Varicella (varivax)(chicken pox) 2018-02-12 00:00:00 Completed [facility] Varicella (varivax)(chicken pox) 2018-02-12 00:00:00 Completed [facility] Varicella (varivax)(chicken pox) 2018-02-12 00:00:00 Completed [facility] Varicella (varivax)(chicken pox) 2018-02-12 00:00:00 Completed [facility] Varicella (varivax)(chicken pox) 2018-02-12 00:00:00 Completed [facility] Varicella (varivax)(chicken pox) 2018-02-12 00:00:00 Completed [facility] Varicella (varivax)(chicken pox) 2018-02-12 00:00:00 Completed [facility] Varicella (varivax)(chicken pox) 2018-02-12 00:00:00 Completed [facility] Varicella (varivax)(chicken pox) 2018-02-12 00:00:00 Completed [facility] Varicella (varivax)(chicken pox) 2018-02-12 00:00:00 Completed [facility] Varicella (varivax)(chicken pox) 2018-02-12 00:00:00 Completed [facility] Varicella (varivax)(chicken pox) 2018-02-12 00:00:00 Completed [facility] Varicella (varivax)(chicken pox) 2018-02-12 00:00:00 Completed [facility] Varicella (varivax)(chicken pox) 2018-02-12 00:00:00 Completed [facility] Varicella (varivax)(chicken pox) 2018-02-12 00:00:00 Completed [facility] Varicella (varivax)(chicken pox) 2018-02-12 00:00:00 Completed [facility] Varicella (varivax)(chicken pox) 2018-02-12 00:00:00 Completed [facility] Varicella (varivax)(chicken pox) 2018-02-12 00:00:00 Completed [facility] Varicella (varivax)(chicken pox) 2018-02-12 00:00:00 Completed [facility] Varicella (varivax)(chicken pox) 2018-02-12 00:00:00 Completed [facility] Varicella (varivax)(chicken pox) 2018-02-12 00:00:00 Completed [facility] Varicella (varivax)(chicken pox) 2018-02-12 00:00:00 Completed [facility] TDAP 2017-12-17 00:00:00 Completed [facility] TDAP 2017-12-17 00:00:00 Completed [facility] TDAP 2017-12-17 00:00:00 Completed [facility] TDAP 2017-12-17 00:00:00 Completed [facility] TDAP 2017-12-17 00:00:00 Completed [facility] TDAP 2017-12-17 00:00:00 Completed [facility] TDAP 2017-12-17 00:00:00 Completed [facility] TDAP 2017-12-17 00:00:00 Completed [facility] TDAP 2017-12-17 00:00:00 Completed [facility] TDAP 2017-12-17 00:00:00 Completed [facility] TDAP 2017-12-17 00:00:00 Completed [facility] TDAP 2017-12-17 00:00:00 Completed [facility] TDAP 2017-12-17 00:00:00 Completed [facility] TDAP 2017-12-17 00:00:00 Completed [facility] TDAP 2017-12-17 00:00:00 Completed [facility] TDAP 2017-12-17 00:00:00 Completed [facility] TDAP 2017-12-17 00:00:00 Completed [facility] TDAP 2017-12-17 00:00:00 Completed [facility] TDAP 2017-12-17 00:00:00 Completed [facility] TDAP 2017-12-17 00:00:00 Completed [facility] TDAP 2017-12-17 00:00:00 Completed [facility] TDAP 2017-12-17 00:00:00 Completed [facility] TDAP 2017-12-17 00:00:00 Completed [facility] TDAP 2017-12-17 00:00:00 Completed [facility] TDAP 2017-12-17 00:00:00 Completed [facility] TDAP 2017-12-17 00:00:00 Completed [facility] TDAP 2017-12-17 00:00:00 Completed [facility] TDAP 2017-12-17 00:00:00 Completed [facility] TDAP 2017-12-17 00:00:00 Completed [facility] TDAP 2017-12-17 00:00:00 Completed [facility] TDAP 2017-12-17 00:00:00 Completed [facility] TDAP 2017-12-17 00:00:00 Completed [facility] TDAP 2017-12-17 00:00:00 Completed [facility] TDAP 2017-12-17 00:00:00 Completed [facility] TDAP 2017-12-17 00:00:00 Completed [facility] TDAP 2017-12-17 00:00:00 Completed [facility] TDAP 2017-12-17 00:00:00 Completed [facility] TDAP 2017-12-17 00:00:00 Completed [facility] TDAP 2017-12-17 00:00:00 Completed [facility] TDAP 2017-12-17 00:00:00 Completed [facility] TDAP 2017-12-17 00:00:00 Completed [facility] TDAP 2017-12-17 00:00:00 Completed [facility] TDAP 2017-12-17 00:00:00 Completed [facility] TDAP 2017-12-17 00:00:00 Completed [facility] TDAP 2017-12-17 00:00:00 Completed [facility] TDAP 2017-12-17 00:00:00 Completed [facility] TDAP 2017-12-17 00:00:00 Completed [facility] TDAP 2017-12-17 00:00:00 Completed [facility] TDAP 2017-12-17 00:00:00 Completed [facility] TDAP 2017-12-17 00:00:00 Completed [facility] TDAP 2017-12-17 00:00:00 Completed [facility] TDAP 2017-12-17 00:00:00 Completed [facility] TDAP 2017-12-17 00:00:00 Completed [facility] TDAP 2017-12-17 00:00:00 Completed [facility] TDAP 2017-12-17 00:00:00 Completed [facility] TDAP 2017-12-17 00:00:00 Completed [facility] TDAP 2017-12-17 00:00:00 Completed [facility] TDAP 2017-12-17 00:00:00 Completed [facility] TDAP 2017-12-17 00:00:00 Completed [facility] TDAP 2017-12-17 00:00:00 Completed [facility] TDAP 2017-12-17 00:00:00 Completed [facility] TDAP 2017-12-17 00:00:00 Completed [facility] TDAP 2017-12-17 00:00:00 Completed [facility] TDAP 2017-12-17 00:00:00 Completed [facility] TDAP 2017-12-17 00:00:00 Completed [facility] TDAP 2017-12-17 00:00:00 Completed [facility] TDAP 2017-12-17 00:00:00 Completed [facility] TDAP 2017-12-17 00:00:00 Completed [facility] TDAP 2017-12-17 00:00:00 Completed [facility] TDAP 2017-12-17 00:00:00 Completed [facility] TDAP 2017-12-17 00:00:00 Completed [facility] TDAP 2017-12-17 00:00:00 Completed [facility] TDAP 2017-12-17 00:00:00 Completed [facility] TDAP 2017-12-17 00:00:00 Completed [facility] TDAP 2017-12-17 00:00:00 Completed [facility] Varicella (varivax)(chicken pox) 2017-01-03 00:00:00 Completed [facility] Varicella (varivax)(chicken pox) 2017-01-03 00:00:00 Completed [facility] Varicella (varivax)(chicken pox) 2017-01-03 00:00:00 Completed [facility] Varicella (varivax)(chicken pox) 2017-01-03 00:00:00 Completed [facility] Varicella (varivax)(chicken pox) 2017-01-03 00:00:00 Completed [facility] Varicella (varivax)(chicken pox) 2017-01-03 00:00:00 Completed [facility] Varicella (varivax)(chicken pox) 2017-01-03 00:00:00 Completed [facility] Varicella (varivax)(chicken pox) 2017-01-03 00:00:00 Completed [facility] Varicella (varivax)(chicken pox) 2017-01-03 00:00:00 Completed [facility] Varicella (varivax)(chicken pox) 2017-01-03 00:00:00 Completed [facility] Varicella (varivax)(chicken pox) 2017-01-03 00:00:00 Completed [facility] Varicella (varivax)(chicken pox) 2017-01-03 00:00:00 Completed [facility] Varicella (varivax)(chicken pox) 2017-01-03 00:00:00 Completed [facility] Varicella (varivax)(chicken pox) 2017-01-03 00:00:00 Completed [facility] Varicella (varivax)(chicken pox) 2017-01-03 00:00:00 Completed [facility] Varicella (varivax)(chicken pox) 2017-01-03 00:00:00 Completed [facility] Varicella (varivax)(chicken pox) 2017-01-03 00:00:00 Completed [facility] Varicella (varivax)(chicken pox) 2017-01-03 00:00:00 Completed [facility] Varicella (varivax)(chicken pox) 2017-01-03 00:00:00 Completed [facility] Varicella (varivax)(chicken pox) 2017-01-03 00:00:00 Completed [facility] Varicella (varivax)(chicken pox) 2017-01-03 00:00:00 Completed [facility] Varicella (varivax)(chicken pox) 2017-01-03 00:00:00 Completed [facility] Varicella (varivax)(chicken pox) 2017-01-03 00:00:00 Completed [facility] Varicella (varivax)(chicken pox) 2017-01-03 00:00:00 Completed [facility] Varicella (varivax)(chicken pox) 2017-01-03 00:00:00 Completed [facility] Varicella (varivax)(chicken pox) 2017-01-03 00:00:00 Completed [facility] Varicella (varivax)(chicken pox) 2017-01-03 00:00:00 Completed [facility] Varicella (varivax)(chicken pox) 2017-01-03 00:00:00 Completed [facility] Varicella (varivax)(chicken pox) 2017-01-03 00:00:00 Completed [facility] Varicella (varivax)(chicken pox) 2017-01-03 00:00:00 Completed [facility] Varicella (varivax)(chicken pox) 2017-01-03 00:00:00 Completed [facility] Varicella (varivax)(chicken pox) 2017-01-03 00:00:00 Completed [facility] Varicella (varivax)(chicken pox) 2017-01-03 00:00:00 Completed [facility] Varicella (varivax)(chicken pox) 2017-01-03 00:00:00 Completed [facility] Varicella (varivax)(chicken pox) 2017-01-03 00:00:00 Completed [facility] Varicella (varivax)(chicken pox) 2017-01-03 00:00:00 Completed [facility] Varicella (varivax)(chicken pox) 2017-01-03 00:00:00 Completed [facility] Varicella (varivax)(chicken pox) 2017-01-03 00:00:00 Completed [facility] Varicella (varivax)(chicken pox) 2017-01-03 00:00:00 Completed [facility] Varicella (varivax)(chicken pox) 2017-01-03 00:00:00 Completed [facility] Varicella (varivax)(chicken pox) 2017-01-03 00:00:00 Completed [facility] Varicella (varivax)(chicken pox) 2017-01-03 00:00:00 Completed [facility] Varicella (varivax)(chicken pox) 2017-01-03 00:00:00 Completed [facility] Varicella (varivax)(chicken pox) 2017-01-03 00:00:00 Completed [facility] Varicella (varivax)(chicken pox) 2017-01-03 00:00:00 Completed [facility] Varicella (varivax)(chicken pox) 2017-01-03 00:00:00 Completed [facility] Varicella (varivax)(chicken pox) 2017-01-03 00:00:00 Completed [facility] Varicella (varivax)(chicken pox) 2017-01-03 00:00:00 Completed [facility] Varicella (varivax)(chicken pox) 2017-01-03 00:00:00 Completed [facility] Varicella (varivax)(chicken pox) 2017-01-03 00:00:00 Completed [facility] Varicella (varivax)(chicken pox) 2017-01-03 00:00:00 Completed [facility] Varicella (varivax)(chicken pox) 2017-01-03 00:00:00 Completed [facility] Varicella (varivax)(chicken pox) 2017-01-03 00:00:00 Completed [facility] Varicella (varivax)(chicken pox) 2017-01-03 00:00:00 Completed [facility] Varicella (varivax)(chicken pox) 2017-01-03 00:00:00 Completed [facility] Varicella (varivax)(chicken pox) 2017-01-03 00:00:00 Completed [facility] Varicella (varivax)(chicken pox) 2017-01-03 00:00:00 Completed [facility] Varicella (varivax)(chicken pox) 2017-01-03 00:00:00 Completed [facility] Varicella (varivax)(chicken pox) 2017-01-03 00:00:00 Completed [facility] Varicella (varivax)(chicken pox) 2017-01-03 00:00:00 Completed [facility] Varicella (varivax)(chicken pox) 2017-01-03 00:00:00 Completed [facility] Varicella (varivax)(chicken pox) 2017-01-03 00:00:00 Completed [facility] Varicella (varivax)(chicken pox) 2017-01-03 00:00:00 Completed [facility] Varicella (varivax)(chicken pox) 2017-01-03 00:00:00 Completed [facility] Varicella (varivax)(chicken pox) 2017-01-03 00:00:00 Completed [facility] Varicella (varivax)(chicken pox) 2017-01-03 00:00:00 Completed [facility] Varicella (varivax)(chicken pox) 2017-01-03 00:00:00 Completed [facility] Varicella (varivax)(chicken pox) 2017-01-03 00:00:00 Completed [facility] Varicella (varivax)(chicken pox) 2017-01-03 00:00:00 Completed [facility] Varicella (varivax)(chicken pox) 2017-01-03 00:00:00 Completed [facility] Varicella (varivax)(chicken pox) 2017-01-03 00:00:00 Completed [facility] Varicella (varivax)(chicken pox) 2017-01-03 00:00:00 Completed [facility] Varicella (varivax)(chicken pox) 2017-01-03 00:00:00 Completed [facility] Varicella (varivax)(chicken pox) 2017-01-03 00:00:00 Completed [facility] Varicella (varivax)(chicken pox) 2017-01-03 00:00:00 Completed [facility] TDAP 2016-10-03 00:00:00 Completed [facility] TDAP 2016-10-03 00:00:00 Completed [facility] TDAP 2016-10-03 00:00:00 Completed [facility] TDAP 2016-10-03 00:00:00 Completed [facility] TDAP 2016-10-03 00:00:00 Completed [facility] TDAP 2016-10-03 00:00:00 Completed [facility] TDAP 2016-10-03 00:00:00 Completed [facility] TDAP 2016-10-03 00:00:00 Completed [facility] TDAP 2016-10-03 00:00:00 Completed [facility] TDAP 2016-10-03 00:00:00 Completed [facility] TDAP 2016-10-03 00:00:00 Completed [facility] TDAP 2016-10-03 00:00:00 Completed [facility] TDAP 2016-10-03 00:00:00 Completed [facility] TDAP 2016-10-03 00:00:00 Completed [facility] TDAP 2016-10-03 00:00:00 Completed [facility] TDAP 2016-10-03 00:00:00 Completed [facility] TDAP 2016-10-03 00:00:00 Completed [facility] TDAP 2016-10-03 00:00:00 Completed [facility] TDAP 2016-10-03 00:00:00 Completed [facility] TDAP 2016-10-03 00:00:00 Completed [facility] TDAP 2016-10-03 00:00:00 Completed [facility] TDAP 2016-10-03 00:00:00 Completed [facility] TDAP 2016-10-03 00:00:00 Completed [facility] TDAP 2016-10-03 00:00:00 Completed [facility] TDAP 2016-10-03 00:00:00 Completed [facility] TDAP 2016-10-03 00:00:00 Completed [facility] TDAP 2016-10-03 00:00:00 Completed [facility] TDAP 2016-10-03 00:00:00 Completed [facility] TDAP 2016-10-03 00:00:00 Completed [facility] TDAP 2016-10-03 00:00:00 Completed [facility] TDAP 2016-10-03 00:00:00 Completed [facility] TDAP 2016-10-03 00:00:00 Completed [facility] TDAP 2016-10-03 00:00:00 Completed [facility] TDAP 2016-10-03 00:00:00 Completed [facility] TDAP 2016-10-03 00:00:00 Completed [facility] TDAP 2016-10-03 00:00:00 Completed [facility] TDAP 2016-10-03 00:00:00 Completed [facility] TDAP 2016-10-03 00:00:00 Completed [facility] TDAP 2016-10-03 00:00:00 Completed [facility] TDAP 2016-10-03 00:00:00 Completed [facility] TDAP 2016-10-03 00:00:00 Completed [facility] TDAP 2016-10-03 00:00:00 Completed [facility] TDAP 2016-10-03 00:00:00 Completed [facility] TDAP 2016-10-03 00:00:00 Completed [facility] TDAP 2016-10-03 00:00:00 Completed [facility] TDAP 2016-10-03 00:00:00 Completed [facility] TDAP 2016-10-03 00:00:00 Completed [facility] TDAP 2016-10-03 00:00:00 Completed [facility] TDAP 2016-10-03 00:00:00 Completed [facility] TDAP 2016-10-03 00:00:00 Completed [facility] TDAP 2016-10-03 00:00:00 Completed [facility] TDAP 2016-10-03 00:00:00 Completed [facility] TDAP 2016-10-03 00:00:00 Completed [facility] TDAP 2016-10-03 00:00:00 Completed [facility] TDAP 2016-10-03 00:00:00 Completed [facility] TDAP 2016-10-03 00:00:00 Completed [facility] TDAP 2016-10-03 00:00:00 Completed [facility] TDAP 2016-10-03 00:00:00 Completed [facility] TDAP 2016-10-03 00:00:00 Completed [facility] TDAP 2016-10-03 00:00:00 Completed [facility] TDAP 2016-10-03 00:00:00 Completed [facility] TDAP 2016-10-03 00:00:00 Completed [facility] TDAP 2016-10-03 00:00:00 Completed [facility] TDAP 2016-10-03 00:00:00 Completed [facility] TDAP 2016-10-03 00:00:00 Completed [facility] TDAP 2016-10-03 00:00:00 Completed [facility] TDAP 2016-10-03 00:00:00 Completed [facility] TDAP 2016-10-03 00:00:00 Completed [facility] TDAP 2016-10-03 00:00:00 Completed [facility] TDAP 2016-10-03 00:00:00 Completed [facility] TDAP 2016-10-03 00:00:00 Completed [facility] TDAP 2016-10-03 00:00:00 Completed [facility] TDAP 2016-10-03 00:00:00 Completed [facility] TDAP 2016-10-03 00:00:00 Completed [facility] TDAP 2016-10-03 00:00:00 Completed [facility] HPV 2010-07-26 00:00:00 Completed [facility] HPV 2010-07-26 00:00:00 Completed [facility] HPV 2010-07-26 00:00:00 Completed [facility] HPV 2010-07-26 00:00:00 Completed [facility] HPV 2010-07-26 00:00:00 Completed [facility] HPV 2010-07-26 00:00:00 Completed [facility] HPV 2010-07-26 00:00:00 Completed [facility] HPV 2010-07-26 00:00:00 Completed [facility] HPV 2010-07-26 00:00:00 Completed [facility] HPV 2010-07-26 00:00:00 Completed [facility] HPV 2010-07-26 00:00:00 Completed [facility] HPV 2010-07-26 00:00:00 Completed [facility] HPV 2010-07-26 00:00:00 Completed [facility] HPV 2010-07-26 00:00:00 Completed [facility] HPV 2010-07-26 00:00:00 Completed [facility] HPV 2010-07-26 00:00:00 Completed [facility] HPV 2010-07-26 00:00:00 Completed [facility] HPV 2010-07-26 00:00:00 Completed [facility] HPV 2010-07-26 00:00:00 Completed [facility] HPV 2010-07-26 00:00:00 Completed [facility] HPV 2010-07-26 00:00:00 Completed [facility] HPV 2010-07-26 00:00:00 Completed [facility] HPV 2010-07-26 00:00:00 Completed [facility] HPV 2010-07-26 00:00:00 Completed [facility] HPV 2010-07-26 00:00:00 Completed [facility] HPV 2010-07-26 00:00:00 Completed [facility] HPV 2010-07-26 00:00:00 Completed [facility] HPV 2010-07-26 00:00:00 Completed [facility] HPV 2010-07-26 00:00:00 Completed [facility] HPV 2010-07-26 00:00:00 Completed [facility] HPV 2010-07-26 00:00:00 Completed [facility] HPV 2010-07-26 00:00:00 Completed [facility] HPV 2010-07-26 00:00:00 Completed [facility] HPV 2010-07-26 00:00:00 Completed [facility] HPV 2010-07-26 00:00:00 Completed [facility] HPV 2010-07-26 00:00:00 Completed [facility] HPV 2010-07-26 00:00:00 Completed [facility] HPV 2010-07-26 00:00:00 Completed [facility] HPV 2010-07-26 00:00:00 Completed [facility] HPV 2010-07-26 00:00:00 Completed [facility] HPV 2010-07-26 00:00:00 Completed [facility] HPV 2010-07-26 00:00:00 Completed [facility] HPV 2010-07-26 00:00:00 Completed [facility] HPV 2010-07-26 00:00:00 Completed [facility] HPV 2010-07-26 00:00:00 Completed [facility] HPV 2010-07-26 00:00:00 Completed [facility] HPV 2010-07-26 00:00:00 Completed [facility] HPV 2010-07-26 00:00:00 Completed [facility] HPV 2010-07-26 00:00:00 Completed [facility] HPV 2010-07-26 00:00:00 Completed [facility] HPV 2010-07-26 00:00:00 Completed [facility] HPV 2010-07-26 00:00:00 Completed [facility] HPV 2010-07-26 00:00:00 Completed [facility] HPV 2010-07-26 00:00:00 Completed [facility] HPV 2010-07-26 00:00:00 Completed [facility] HPV 2010-07-26 00:00:00 Completed [facility] HPV 2010-07-26 00:00:00 Completed [facility] HPV 2010-07-26 00:00:00 Completed [facility] HPV 2010-07-26 00:00:00 Completed [facility] HPV 2010-07-26 00:00:00 Completed [facility] HPV 2010-07-26 00:00:00 Completed [facility] HPV 2010-07-26 00:00:00 Completed [facility] HPV 2010-07-26 00:00:00 Completed [facility] HPV 2010-07-26 00:00:00 Completed [facility] HPV 2010-07-26 00:00:00 Completed [facility] HPV 2010-07-26 00:00:00 Completed [facility] HPV 2010-07-26 00:00:00 Completed [facility] HPV 2010-07-26 00:00:00 Completed [facility] HPV 2010-07-26 00:00:00 Completed [facility] HPV 2010-07-26 00:00:00 Completed [facility] HPV 2010-07-26 00:00:00 Completed [facility] HPV 2010-07-26 00:00:00 Completed [facility] HPV 2010-07-26 00:00:00 Completed [facility] HPV 2010-07-26 00:00:00 Completed [facility] HPV 2010-07-26 00:00:00 Completed [facility] HPV 2010-06-20 00:00:00 Completed [facility] HPV 2010-06-20 00:00:00 Completed [facility] HPV 2010-06-20 00:00:00 Completed [facility] HPV 2010-06-20 00:00:00 Completed [facility] HPV 2010-06-20 00:00:00 Completed [facility] HPV 2010-06-20 00:00:00 Completed [facility] HPV 2010-06-20 00:00:00 Completed [facility] HPV 2010-06-20 00:00:00 Completed [facility] HPV 2010-06-20 00:00:00 Completed [facility] HPV 2010-06-20 00:00:00 Completed [facility] HPV 2010-06-20 00:00:00 Completed [facility] HPV 2010-06-20 00:00:00 Completed [facility] HPV 2010-06-20 00:00:00 Completed [facility] HPV 2010-06-20 00:00:00 Completed [facility] HPV 2010-06-20 00:00:00 Completed [facility] HPV 2010-06-20 00:00:00 Completed [facility] HPV 2010-06-20 00:00:00 Completed [facility] HPV 2010-06-20 00:00:00 Completed [facility] HPV 2010-06-20 00:00:00 Completed [facility] HPV 2010-06-20 00:00:00 Completed [facility] HPV 2010-06-20 00:00:00 Completed [facility] HPV 2010-06-20 00:00:00 Completed [facility] HPV 2010-06-20 00:00:00 Completed [facility] HPV 2010-06-20 00:00:00 Completed [facility] HPV 2010-06-20 00:00:00 Completed [facility] HPV 2010-06-20 00:00:00 Completed [facility] HPV 2010-06-20 00:00:00 Completed [facility] HPV 2010-06-20 00:00:00 Completed [facility] HPV 2010-06-20 00:00:00 Completed [facility] HPV 2010-06-20 00:00:00 Completed [facility] HPV 2010-06-20 00:00:00 Completed [facility] HPV 2010-06-20 00:00:00 Completed [facility] HPV 2010-06-20 00:00:00 Completed [facility] HPV 2010-06-20 00:00:00 Completed [facility] HPV 2010-06-20 00:00:00 Completed [facility] HPV 2010-06-20 00:00:00 Completed [facility] HPV 2010-06-20 00:00:00 Completed [facility] HPV 2010-06-20 00:00:00 Completed [facility] HPV 2010-06-20 00:00:00 Completed [facility] HPV 2010-06-20 00:00:00 Completed [facility] HPV 2010-06-20 00:00:00 Completed [facility] HPV 2010-06-20 00:00:00 Completed [facility] HPV 2010-06-20 00:00:00 Completed [facility] HPV 2010-06-20 00:00:00 Completed [facility] HPV 2010-06-20 00:00:00 Completed [facility] HPV 2010-06-20 00:00:00 Completed [facility] HPV 2010-06-20 00:00:00 Completed [facility] HPV 2010-06-20 00:00:00 Completed [facility] HPV 2010-06-20 00:00:00 Completed [facility] HPV 2010-06-20 00:00:00 Completed [facility] HPV 2010-06-20 00:00:00 Completed [facility] HPV 2010-06-20 00:00:00 Completed [facility] HPV 2010-06-20 00:00:00 Completed [facility] HPV 2010-06-20 00:00:00 Completed [facility] HPV 2010-06-20 00:00:00 Completed [facility] HPV 2010-06-20 00:00:00 Completed [facility] HPV 2010-06-20 00:00:00 Completed [facility] HPV 2010-06-20 00:00:00 Completed [facility] HPV 2010-06-20 00:00:00 Completed [facility] HPV 2010-06-20 00:00:00 Completed [facility] HPV 2010-06-20 00:00:00 Completed [facility] HPV 2010-06-20 00:00:00 Completed [facility] HPV 2010-06-20 00:00:00 Completed [facility] HPV 2010-06-20 00:00:00 Completed [facility] HPV 2010-06-20 00:00:00 Completed [facility] HPV 2010-06-20 00:00:00 Completed [facility] HPV 2010-06-20 00:00:00 Completed [facility] HPV 2010-06-20 00:00:00 Completed [facility] HPV 2010-06-20 00:00:00 Completed [facility] HPV 2010-06-20 00:00:00 Completed [facility] HPV 2010-06-20 00:00:00 Completed [facility] HPV 2010-06-20 00:00:00 Completed [facility] Varicella (varivax)(chicken pox) 2010-06-20 00:00:00 Completed [facility] TDAP 2010-06-20 00:00:00 Completed [facility] Meningococcal Polysaccharide (groups A, C, Y and W-135) conjugate vaccine (MCV4P) 2010-06-20 00:00:00 Completed [facility] DTaP, Unspecified Formulation 2010-06-20 00:00:00 Completed [facility] HPV 2010-06-20 00:00:00 Completed [facility] Varicella (varivax)(chicken pox) 2010-06-20 00:00:00 Completed [facility] TDAP 2010-06-20 00:00:00 Completed [facility] Meningococcal Polysaccharide (groups A, C, Y and W-135) conjugate vaccine (MCV4P) 2010-06-20 00:00:00 Completed [facility] DTaP, Unspecified Formulation 2010-06-20 00:00:00 Completed [facility] HPV 2010-06-20 00:00:00 Completed [facility] Varicella (varivax)(chicken pox) 2010-06-20 00:00:00 Completed [facility] TDAP 2010-06-20 00:00:00 Completed [facility] Meningococcal Polysaccharide (groups A, C, Y and W-135) conjugate vaccine (MCV4P) 2010-06-20 00:00:00 Completed [facility] DTaP, Unspecified Formulation 2010-06-20 00:00:00 Completed [facility] HPV 2010-06-20 00:00:00 Completed [facility] Varicella (varivax)(chicken pox) 2010-06-20 00:00:00 Completed [facility] TDAP 2010-06-20 00:00:00 Completed [facility] Meningococcal Polysaccharide (groups A, C, Y and W-135) conjugate vaccine (MCV4P) 2010-06-20 00:00:00 Completed [facility] DTaP, Unspecified Formulation 2010-06-20 00:00:00 Completed [facility] IPV 2001-05-21 00:00:00 Completed [facility] MMR 2001-05-21 00:00:00 Completed [facility] HIB 4 Dose Schedule 2001-05-21 00:00:00 Completed [facility] DTaP, Unspecified Formulation 2001-05-21 00:00:00 Completed [facility] IPV 2001-05-21 00:00:00 Completed [facility] MMR 2001-05-21 00:00:00 Completed [facility] HIB 4 Dose Schedule 2001-05-21 00:00:00 Completed [facility] DTaP, Unspecified Formulation 2001-05-21 00:00:00 Completed [facility] IPV 2001-05-21 00:00:00 Completed [facility] MMR 2001-05-21 00:00:00 Completed [facility] HIB 4 Dose Schedule 2001-05-21 00:00:00 Completed [facility] DTaP, Unspecified Formulation 2001-05-21 00:00:00 Completed [facility] IPV 2001-05-21 00:00:00 Completed [facility] MMR 2001-05-21 00:00:00 Completed [facility] HIB 4 Dose Schedule 2001-05-21 00:00:00 Completed [facility] DTaP, Unspecified Formulation 2001-05-21 00:00:00 Completed [facility] Varicella (varivax)(chicken pox) 1999-06-10 00:00:00 Completed [facility] Varicella (varivax)(chicken pox) 1999-06-10 00:00:00 Completed [facility] Varicella (varivax)(chicken pox) 1999-06-10 00:00:00 Completed [facility] Varicella (varivax)(chicken pox) 1999-06-10 00:00:00 Completed [facility] MMR 1999-06-09 00:00:00 Completed [facility] MMR 1999-06-09 00:00:00 Completed [facility] MMR 1999-06-09 00:00:00 Completed [facility] MMR 1999-06-09 00:00:00 Completed [facility] Pneumococcal 7 Conjugate, PCV7 (Prevnar7) 1999-06-05 00:00:00 Completed [facility] HIB 4 Dose Schedule 1999-06-05 00:00:00 Completed [facility] Hep B, Adol or Pedi Dosage 1999-06-05 00:00:00 Completed [facility] DTaP, Unspecified Formulation 1999-06-05 00:00:00 Completed [facility] Pneumococcal 7 Conjugate, PCV7 (Prevnar7) 1999-06-05 00:00:00 Completed [facility] HIB 4 Dose Schedule 1999-06-05 00:00:00 Completed [facility] Hep B, Adol or Pedi Dosage 1999-06-05 00:00:00 Completed [facility] DTaP, Unspecified Formulation 1999-06-05 00:00:00 Completed [facility] Pneumococcal 7 Conjugate, PCV7 (Prevnar7) 1999-06-05 00:00:00 Completed [facility] HIB 4 Dose Schedule 1999-06-05 00:00:00 Completed [facility] Hep B, Adol or Pedi Dosage 1999-06-05 00:00:00 Completed [facility] DTaP, Unspecified Formulation 1999-06-05 00:00:00 Completed [facility] Pneumococcal 7 Conjugate, PCV7 (Prevnar7) 1999-06-05 00:00:00 Completed [facility] HIB 4 Dose Schedule 1999-06-05 00:00:00 Completed [facility] Hep B, Adol or Pedi Dosage 1999-06-05 00:00:00 Completed [facility] DTaP, Unspecified Formulation 1999-06-05 00:00:00 Completed [facility] IPV 1997 00:00:00 Completed [facility] IPV 1997 00:00:00 Completed [facility] IPV 1997 00:00:00 Completed [facility] IPV 1997 00:00:00 Completed [facility] Pneumococcal 7 Conjugate, PCV7 (Prevnar7) 1997 00:00:00 Completed [facility] DTaP, Unspecified Formulation 1997 00:00:00 Completed [facility] Pneumococcal 7 Conjugate, PCV7 (Prevnar7) 1997 00:00:00 Completed [facility] DTaP, Unspecified Formulation 1997 00:00:00 Completed [facility] Pneumococcal 7 Conjugate, PCV7 (Prevnar7) 1997 00:00:00 Completed [facility] DTaP, Unspecified Formulation 1997 00:00:00 Completed [facility] Pneumococcal 7 Conjugate, PCV7 (Prevnar7) 1997 00:00:00 Completed [facility] DTaP, Unspecified Formulation 1997 00:00:00 Completed [facility] IPV 1997 00:00:00 Completed [facility] Pneumococcal 7 Conjugate, PCV7 (Prevnar7) 1997 00:00:00 Completed [facility] HIB 4 Dose Schedule 1997 00:00:00 Completed [facility] Hep B, Adol or Pedi Dosage 1997 00:00:00 Completed [facility] DTaP, Unspecified Formulation 1997 00:00:00 Completed [facility] IPV 1997 00:00:00 Completed [facility] Pneumococcal 7 Conjugate, PCV7 (Prevnar7) 1997 00:00:00 Completed [facility] HIB 4 Dose Schedule 1997 00:00:00 Completed [facility] Hep B, Adol or Pedi Dosage 1997 00:00:00 Completed [facility] DTaP, Unspecified Formulation 1997 00:00:00 Completed [facility] IPV 1997 00:00:00 Completed [facility] Pneumococcal 7 Conjugate, PCV7 (Prevnar7) 1997 00:00:00 Completed [facility] HIB 4 Dose Schedule 1997 00:00:00 Completed [facility] Hep B, Adol or Pedi Dosage 1997 00:00:00 Completed [facility] DTaP, Unspecified Formulation 1997 00:00:00 Completed [facility] IPV 1997 00:00:00 Completed [facility] Pneumococcal 7 Conjugate, PCV7 (Prevnar7) 1997 00:00:00 Completed [facility] HIB 4 Dose Schedule 1997 00:00:00 Completed [facility] Hep B, Adol or Pedi Dosage 1997 00:00:00 Completed [facility] DTaP, Unspecified Formulation 1997 00:00:00 Completed [facility] IPV 1997 00:00:00 Completed [facility] IPV 1997 00:00:00 Completed [facility] IPV 1997 00:00:00 Completed [facility] IPV 1997 00:00:00 Completed [facility] Pneumococcal 7 Conjugate, PCV7 (Prevnar7) 1997 00:00:00 Completed [facility] HIB 4 Dose Schedule 1997 00:00:00 Completed [facility] Hep B, Adol or Pedi Dosage 1997 00:00:00 Completed [facility] DTaP, Unspecified Formulation 1997 00:00:00 Completed [facility] Pneumococcal 7 Conjugate, PCV7 (Prevnar7) 1997 00:00:00 Completed [facility] HIB 4 Dose Schedule 1997 00:00:00 Completed [facility] Hep B, Adol or Pedi Dosage 1997 00:00:00 Completed [facility] DTaP, Unspecified Formulation 1997 00:00:00 Completed [facility] Pneumococcal 7 Conjugate, PCV7 (Prevnar7) 1997 00:00:00 Completed [facility] HIB 4 Dose Schedule 1997 00:00:00 Completed [facility] Hep B, Adol or Pedi Dosage 1997 00:00:00 Completed [facility] DTaP, Unspecified Formulation 1997 00:00:00 Completed [facility] Pneumococcal 7 Conjugate, PCV7 (Prevnar7) 1997 00:00:00 Completed [facility] HIB 4 Dose Schedule 1997 00:00:00 Completed [facility] Hep B, Adol or Pedi Dosage 1997 00:00:00 Completed [facility] DTaP, Unspecified Formulation 1997 00:00:00 Completed [facility] TDAP Unknown Completed [facility] Varicella (varivax)(chicken pox) Unknown Completed [facility] Influenza Virus Vaccine Quad .5 mL IM 6+ MO (FLUZONE/FLULAVAL/FL UARIX) Unknown Completed [facility] HPV Unknown Completed [facility] Influenza Virus Vaccine Quad IM, Preserv and ABX Free 6 MO-64 YRS (FLUCELVAX) Unknown Completed [facility] IPV Unknown Completed [facility] Pneumococcal 7 Conjugate, PCV7 (Prevnar7) Unknown Completed [facility] MMR Unknown Completed [facility] Meningococcal Polysaccharide (groups A, C, Y and W-135) conjugate vaccine (MCV4P) Unknown Completed [facility] HIB 4 Dose Schedule Unknown Completed [facility] Hep B, Adol or Pedi Dosage Unknown Completed [facility] DTaP, Unspecified Formulation Unknown Completed [facility] TDAP Unknown Completed [facility] Varicella (varivax)(chicken pox) Unknown Completed [facility] Influenza Virus Vaccine Quad .5 mL IM 6+ MO (FLUZONE/FLULAVAL/FL UARIX) Unknown Completed [facility] HPV Unknown Completed [facility] Influenza Virus Vaccine Quad IM, Preserv and ABX Free 6 MO-64 YRS (FLUCELVAX) Unknown Completed [facility] IPV Unknown Completed [facility] Pneumococcal 7 Conjugate, PCV7 (Prevnar7) Unknown Completed [facility] MMR Unknown Completed [facility] Meningococcal Polysaccharide (groups A, C, Y and W-135) conjugate vaccine (MCV4P) Unknown Completed [facility] HIB 4 Dose Schedule Unknown Completed [facility] Hep B, Adol or Pedi Dosage Unknown Completed [facility] DTaP, Unspecified Formulation Unknown Completed [facility] TDAP Unknown Completed [facility] Varicella (varivax)(chicken pox) Unknown Completed [facility] Influenza Virus Vaccine Quad .5 mL IM 6+ MO (FLUZONE/FLULAVAL/FL UARIX) Unknown Completed [facility] HPV Unknown Completed [facility] Influenza Virus Vaccine Quad IM, Preserv and ABX Free 6 MO-64 YRS (FLUCELVAX) Unknown Completed [facility] IPV Unknown Completed [facility] Pneumococcal 7 Conjugate, PCV7 (Prevnar7) Unknown Completed [facility] MMR Unknown Completed [facility] Meningococcal Polysaccharide (groups A, C, Y and W-135) conjugate vaccine (MCV4P) Unknown Completed [facility] HIB 4 Dose Schedule Unknown Completed [facility] Hep B, Adol or Pedi Dosage Unknown Completed [facility] DTaP, Unspecified Formulation Unknown Completed [facility] TDAP Unknown Completed [facility] Varicella (varivax)(chicken pox) Unknown Completed [facility] Influenza Virus Vaccine Quad .5 mL IM 6+ MO (FLUZONE/FLULAVAL/FL UARIX) Unknown Completed [facility] HPV Unknown Completed [facility] IPV Unknown Completed [facility] Pneumococcal 7 Conjugate, PCV7 (Prevnar7) Unknown Completed [facility] MMR Unknown Completed [facility] Meningococcal Polysaccharide (groups A, C, Y and W-135) conjugate vaccine (MCV4P) Unknown Completed [facility] HIB 4 Dose Schedule Unknown Completed [facility] Hep B, Adol or Pedi Dosage Unknown Completed [facility] DTaP, Unspecified Formulation Unknown Completed [facility] TDAP Unknown Completed [facility] Varicella (varivax)(chicken pox) Unknown Completed [facility] Influenza Virus Vaccine Quad .5 mL IM 6+ MO (FLUZONE/FLULAVAL/FL UARIX) Unknown Completed [facility] HPV Unknown Completed [facility] IPV Unknown Completed [facility] Pneumococcal 7 Conjugate, PCV7 (Prevnar7) Unknown Completed [facility] MMR Unknown Completed [facility] Meningococcal Polysaccharide (groups A, C, Y and W-135) conjugate vaccine (MCV4P) Unknown Completed [facility] HIB 4 Dose Schedule Unknown Completed [facility] Hep B, Adol or Pedi Dosage Unknown Completed [facility] DTaP, Unspecified Formulation Unknown Completed [facility] TDAP Unknown Completed [facility] Varicella (varivax)(chicken pox) Unknown Completed [facility] Influenza Virus Vaccine Quad .5 mL IM 6+ MO (FLUZONE/FLULAVAL/FL UARIX) Unknown Completed [facility] HPV Unknown Completed [facility] IPV Unknown Completed [facility] Pneumococcal 7 Conjugate, PCV7 (Prevnar7) Unknown Completed [facility] MMR Unknown Completed [facility] Meningococcal Polysaccharide (groups A, C, Y and W-135) conjugate vaccine (MCV4P) Unknown Completed [facility] HIB 4 Dose Schedule Unknown Completed [facility] Hep B, Adol or Pedi Dosage Unknown Completed [facility] DTaP, Unspecified Formulation Unknown Completed [facility] TDAP Unknown Completed [facility] Varicella (varivax)(chicken pox) Unknown Completed [facility] Influenza Virus Vaccine Quad .5 mL IM 6+ MO (FLUZONE/FLULAVAL/FL UARIX) Unknown Completed [facility] HPV Unknown Completed [facility] IPV Unknown Completed [facility] Pneumococcal 7 Conjugate, PCV7 (Prevnar7) Unknown Completed [facility] MMR Unknown Completed [facility] Meningococcal Polysaccharide (groups A, C, Y and W-135) conjugate vaccine (MCV4P) Unknown Completed [facility] HIB 4 Dose Schedule Unknown Completed [facility] Hep B, Adol or Pedi Dosage Unknown Completed [facility] DTaP, Unspecified Formulation Unknown Completed [facility] TDAP Unknown Completed [facility] Varicella (varivax)(chicken pox) Unknown Completed [facility] Influenza Virus Vaccine Quad .5 mL IM 6+ MO (FLUZONE/FLULAVAL/FL UARIX) Unknown Completed [facility] HPV Unknown Completed [facility] IPV Unknown Completed [facility] Pneumococcal 7 Conjugate, PCV7 (Prevnar7) Unknown Completed [facility] MMR Unknown Completed [facility] Meningococcal Polysaccharide (groups A, C, Y and W-135) conjugate vaccine (MCV4P) Unknown Completed [facility] HIB 4 Dose Schedule Unknown Completed [facility] Hep B, Adol or Pedi Dosage Unknown Completed [facility] DTaP, Unspecified Formulation Unknown Completed [facility] TDAP Unknown Completed [facility] Varicella (varivax)(chicken pox) Unknown Completed [facility] Influenza Virus Vaccine Quad .5 mL IM 6+ MO (FLUZONE/FLULAVAL/FL UARIX) Unknown Completed [facility] HPV Unknown Completed [facility] IPV Unknown Completed [facility] Pneumococcal 7 Conjugate, PCV7 (Prevnar7) Unknown Completed [facility] MMR Unknown Completed [facility] Meningococcal Polysaccharide (groups A, C, Y and W-135) conjugate vaccine (MCV4P) Unknown Completed [facility] HIB 4 Dose Schedule Unknown Completed [facility] Hep B, Adol or Pedi Dosage Unknown Completed [facility] DTaP, Unspecified Formulation Unknown Completed [facility] TDAP Unknown Completed [facility] Varicella (varivax)(chicken pox) Unknown Completed [facility] Influenza Virus Vaccine Quad .5 mL IM 6+ MO (FLUZONE/FLULAVAL/FL UARIX) Unknown Completed [facility] HPV Unknown Completed [facility] IPV Unknown Completed [facility] Pneumococcal 7 Conjugate, PCV7 (Prevnar7) Unknown Completed [facility] MMR Unknown Completed [facility] Meningococcal Polysaccharide (groups A, C, Y and W-135) conjugate vaccine (MCV4P) Unknown Completed [facility] HIB 4 Dose Schedule Unknown Completed [facility] Hep B, Adol or Pedi Dosage Unknown Completed [facility] DTaP, Unspecified Formulation Unknown Completed [facility] TDAP Unknown Completed [facility] Varicella (varivax)(chicken pox) Unknown Completed [facility] Influenza Virus Vaccine Quad .5 mL IM 6+ MO (FLUZONE/FLULAVAL/FL UARIX) Unknown Completed [facility] HPV Unknown Completed [facility] IPV Unknown Completed [facility] Pneumococcal 7 Conjugate, PCV7 (Prevnar7) Unknown Completed [facility] MMR Unknown Completed [facility] Meningococcal Polysaccharide (groups A, C, Y and W-135) conjugate vaccine (MCV4P) Unknown Completed [facility] HIB 4 Dose Schedule Unknown Completed [facility] Hep B, Adol or Pedi Dosage Unknown Completed [facility] DTaP, Unspecified Formulation Unknown Completed [facility] TDAP Unknown Completed [facility] Varicella (varivax)(chicken pox) Unknown Completed [facility] Influenza Virus Vaccine Quad .5 mL IM 6+ MO (FLUZONE/FLULAVAL/FL UARIX) Unknown Completed [facility] HPV Unknown Completed [facility] IPV Unknown Completed [facility] Pneumococcal 7 Conjugate, PCV7 (Prevnar7) Unknown Completed [facility] MMR Unknown Completed [facility] Meningococcal Polysaccharide (groups A, C, Y and W-135) conjugate vaccine (MCV4P) Unknown Completed [facility] HIB 4 Dose Schedule Unknown Completed [facility] Hep B, Adol or Pedi Dosage Unknown Completed [facility] DTaP, Unspecified Formulation Unknown Completed [facility] TDAP Unknown Completed [facility] Varicella (varivax)(chicken pox) Unknown Completed [facility] Influenza Virus Vaccine Quad .5 mL IM 6+ MO (FLUZONE/FLULAVAL/FL UARIX) Unknown Completed [facility] HPV Unknown Completed [facility] Influenza Virus Vaccine Quad IM, Preserv and ABX Free 6 MO-64 YRS (FLUCELVAX) Unknown Completed [facility] IPV Unknown Completed [facility] Pneumococcal 7 Conjugate, PCV7 (Prevnar7) Unknown Completed [facility] MMR Unknown Completed [facility] Meningococcal Polysaccharide (groups A, C, Y and W-135) conjugate vaccine (MCV4P) Unknown Completed [facility] HIB 4 Dose Schedule Unknown Completed [facility] Hep B, Adol or Pedi Dosage Unknown Completed [facility] DTaP, Unspecified Formulation Unknown Completed [facility] TDAP Unknown Completed [facility] Varicella (varivax)(chicken pox) Unknown Completed [facility] Influenza Virus Vaccine Quad .5 mL IM 6+ MO (FLUZONE/FLULAVAL/FL UARIX) Unknown Completed [facility] HPV Unknown Completed [facility] Influenza Virus Vaccine Quad IM, Preserv and ABX Free 6 MO-64 YRS (FLUCELVAX) Unknown Completed [facility] IPV Unknown Completed [facility] Pneumococcal 7 Conjugate, PCV7 (Prevnar7) Unknown Completed [facility] MMR Unknown Completed [facility] Meningococcal Polysaccharide (groups A, C, Y and W-135) conjugate vaccine (MCV4P) Unknown Completed [facility] HIB 4 Dose Schedule Unknown Completed [facility] Hep B, Adol or Pedi Dosage Unknown Completed [facility] DTaP, Unspecified Formulation Unknown Completed [facility] TDAP Unknown Completed [facility] Varicella (varivax)(chicken pox) Unknown Completed [facility] Influenza Virus Vaccine Quad .5 mL IM 6+ MO (FLUZONE/FLULAVAL/FL UARIX) Unknown Completed [facility] HPV Unknown Completed [facility] Influenza Virus Vaccine Quad IM, Preserv and ABX Free 6 MO-64 YRS (FLUCELVAX) Unknown Completed [facility] IPV Unknown Completed [facility] Pneumococcal 7 Conjugate, PCV7 (Prevnar7) Unknown Completed [facility] MMR Unknown Completed [facility] Meningococcal Polysaccharide (groups A, C, Y and W-135) conjugate vaccine (MCV4P) Unknown Completed [facility] HIB 4 Dose Schedule Unknown Completed [facility] Hep B, Adol or Pedi Dosage Unknown Completed [facility] DTaP, Unspecified Formulation Unknown Completed [facility] TDAP Unknown Completed [facility] Varicella (varivax)(chicken pox) Unknown Completed [facility] Influenza Virus Vaccine Quad .5 mL IM 6+ MO (FLUZONE/FLULAVAL/FL UARIX) Unknown Completed [facility] HPV Unknown Completed [facility] Influenza Virus Vaccine Quad IM, Preserv and ABX Free 6 MO-64 YRS (FLUCELVAX) Unknown Completed [facility] IPV Unknown Completed [facility] Pneumococcal 7 Conjugate, PCV7 (Prevnar7) Unknown Completed [facility] MMR Unknown Completed [facility] Meningococcal Polysaccharide (groups A, C, Y and W-135) conjugate vaccine (MCV4P) Unknown Completed [facility] HIB 4 Dose Schedule Unknown Completed [facility] Hep B, Adol or Pedi Dosage Unknown Completed [facility] DTaP, Unspecified Formulation Unknown Completed [facility] TDAP Unknown Completed [facility] Varicella (varivax)(chicken pox) Unknown Completed [facility] Influenza Virus Vaccine Quad .5 mL IM 6+ MO (FLUZONE/FLULAVAL/FL UARIX) Unknown Completed [facility] HPV Unknown Completed [facility] Influenza Virus Vaccine Quad IM, Preserv and ABX Free 6 MO-64 YRS (FLUCELVAX) Unknown Completed [facility] IPV Unknown Completed [facility] Pneumococcal 7 Conjugate, PCV7 (Prevnar7) Unknown Completed [facility] MMR Unknown Completed [facility] Meningococcal Polysaccharide (groups A, C, Y and W-135) conjugate vaccine (MCV4P) Unknown Completed [facility] HIB 4 Dose Schedule Unknown Completed [facility] Hep B, Adol or Pedi Dosage Unknown Completed [facility] DTaP, Unspecified Formulation Unknown Completed [facility] TDAP Unknown Completed [facility] Varicella (varivax)(chicken pox) Unknown Completed [facility] Influenza Virus Vaccine Quad .5 mL IM 6+ MO (FLUZONE/FLULAVAL/FL UARIX) Unknown Completed [facility] HPV Unknown Completed [facility] Influenza Virus Vaccine Quad IM, Preserv and ABX Free 6 MO-64 YRS (FLUCELVAX) Unknown Completed [facility] IPV Unknown Completed [facility] Pneumococcal 7 Conjugate, PCV7 (Prevnar7) Unknown Completed [facility] MMR Unknown Completed [facility] Meningococcal Polysaccharide (groups A, C, Y and W-135) conjugate vaccine (MCV4P) Unknown Completed [facility] HIB 4 Dose Schedule Unknown Completed [facility] Hep B, Adol or Pedi Dosage Unknown Completed [facility] DTaP, Unspecified Formulation Unknown Completed [facility] TDAP Unknown Completed [facility] Varicella (varivax)(chicken pox) Unknown Completed [facility] Influenza Virus Vaccine Quad .5 mL IM 6+ MO (FLUZONE/FLULAVAL/FL UARIX) Unknown Completed [facility] HPV Unknown Completed [facility] Influenza Virus Vaccine Quad IM, Preserv and ABX Free 6 MO-64 YRS (FLUCELVAX) Unknown Completed [facility] IPV Unknown Completed [facility] Pneumococcal 7 Conjugate, PCV7 (Prevnar7) Unknown Completed [facility] MMR Unknown Completed [facility] Meningococcal Polysaccharide (groups A, C, Y and W-135) conjugate vaccine (MCV4P) Unknown Completed [facility] HIB 4 Dose Schedule Unknown Completed [facility] Hep B, Adol or Pedi Dosage Unknown Completed [facility] DTaP, Unspecified Formulation Unknown Completed [facility] TDAP Unknown Completed [facility] Varicella (varivax)(chicken pox) Unknown Completed [facility] Influenza Virus Vaccine Quad .5 mL IM 6+ MO (FLUZONE/FLULAVAL/FL UARIX) Unknown Completed [facility] HPV Unknown Completed [facility] Influenza Virus Vaccine Quad IM, Preserv and ABX Free 6 MO-64 YRS (FLUCELVAX) Unknown Completed [facility] IPV Unknown Completed [facility] Pneumococcal 7 Conjugate, PCV7 (Prevnar7) Unknown Completed [facility] MMR Unknown Completed [facility] Meningococcal Polysaccharide (groups A, C, Y and W-135) conjugate vaccine (MCV4P) Unknown Completed [facility] HIB 4 Dose Schedule Unknown Completed [facility] Hep B, Adol or Pedi Dosage Unknown Completed [facility] DTaP, Unspecified Formulation Unknown Completed [facility] TDAP Unknown Completed [facility] Varicella (varivax)(chicken pox) Unknown Completed [facility] Influenza Virus Vaccine Quad .5 mL IM 6+ MO (FLUZONE/FLULAVAL/FL UARIX) Unknown Completed [facility] HPV Unknown Completed [facility] Influenza Virus Vaccine Quad IM, Preserv and ABX Free 6 MO-64 YRS (FLUCELVAX) Unknown Completed [facility] IPV Unknown Completed [facility] Pneumococcal 7 Conjugate, PCV7 (Prevnar7) Unknown Completed [facility] MMR Unknown Completed [facility] Meningococcal Polysaccharide (groups A, C, Y and W-135) conjugate vaccine (MCV4P) Unknown Completed [facility] HIB 4 Dose Schedule Unknown Completed [facility] Hep B, Adol or Pedi Dosage Unknown Completed [facility] DTaP, Unspecified Formulation Unknown Completed [facility] Influenza Virus Vaccine Quad .5 mL IM 6+ MO (FLUZONE/FLULAVAL/FL UARIX) Unknown Completed [facility] Meningococcal Polysaccharide (groups A, C, Y and W-135) conjugate vaccine (MCV4P) Unknown Completed [facility] TDAP Unknown Completed [facility] Varicella (varivax)(chicken pox) Unknown Completed [facility] HPV Unknown Completed [facility] Influenza Virus Vaccine Quad IM, Preserv and ABX Free 6 MO-64 YRS (FLUCELVAX) Unknown Completed [facility] IPV Unknown Completed [facility] Pneumococcal 7 Conjugate, PCV7 (Prevnar7) Unknown Completed [facility] MMR Unknown Completed [facility] HIB 4 Dose Schedule Unknown Completed [facility] Hep B, Adol or Pedi Dosage Unknown Completed [facility] DTaP, Unspecified Formulation Unknown Completed [facility] TDAP Unknown Completed [facility] Varicella (varivax)(chicken pox) Unknown Completed [facility] Influenza Virus Vaccine Quad .5 mL IM 6+ MO (FLUZONE/FLULAVAL/FL UARIX) Unknown Completed [facility] HPV Unknown Completed [facility] Influenza Virus Vaccine Quad IM, Preserv and ABX Free 6 MO-64 YRS (FLUCELVAX) Unknown Completed [facility] IPV Unknown Completed [facility] Pneumococcal 7 Conjugate, PCV7 (Prevnar7) Unknown Completed [facility] MMR Unknown Completed [facility] Meningococcal Polysaccharide (groups A, C, Y and W-135) conjugate vaccine (MCV4P) Unknown Completed [facility] HIB 4 Dose Schedule Unknown Completed [facility] Hep B, Adol or Pedi Dosage Unknown Completed [facility] DTaP, Unspecified Formulation Unknown Completed [facility] TDAP Unknown Completed [facility] Varicella (varivax)(chicken pox) Unknown Completed [facility] Influenza Virus Vaccine Quad .5 mL IM 6+ MO (FLUZONE/FLULAVAL/FL UARIX) Unknown Completed [facility] HPV Unknown Completed [facility] Influenza Virus Vaccine Quad IM, Preserv and ABX Free 6 MO-64 YRS (FLUCELVAX) Unknown Completed [facility] IPV Unknown Completed [facility] Pneumococcal 7 Conjugate, PCV7 (Prevnar7) Unknown Completed [facility] MMR Unknown Completed [facility] Meningococcal Polysaccharide (groups A, C, Y and W-135) conjugate vaccine (MCV4P) Unknown Completed [facility] HIB 4 Dose Schedule Unknown Completed [facility] Hep B, Adol or Pedi Dosage Unknown Completed [facility] DTaP, Unspecified Formulation Unknown Completed [facility] TDAP Unknown Completed [facility] Varicella (varivax)(chicken pox) Unknown Completed [facility] Influenza Virus Vaccine Quad .5 mL IM 6+ MO (FLUZONE/FLULAVAL/FL UARIX) Unknown Completed [facility] HPV Unknown Completed [facility] Influenza Virus Vaccine Quad IM, Preserv and ABX Free 6 MO-64 YRS (FLUCELVAX) Unknown Completed [facility] IPV Unknown Completed [facility] Pneumococcal 7 Conjugate, PCV7 (Prevnar7) Unknown Completed [facility] MMR Unknown Completed [facility] Meningococcal Polysaccharide (groups A, C, Y and W-135) conjugate vaccine (MCV4P) Unknown Completed [facility] HIB 4 Dose Schedule Unknown Completed [facility] Hep B, Adol or Pedi Dosage Unknown Completed [facility] DTaP, Unspecified Formulation Unknown Completed [facility] Influenza Virus Vaccine Quad .5 mL IM 6+ MO (FLUZONE/FLULAVAL/FL UARIX) Unknown Completed [facility] Meningococcal Polysaccharide (groups A, C, Y and W-135) conjugate vaccine (MCV4P) Unknown Completed [facility] TDAP Unknown Completed [facility] Varicella (varivax)(chicken pox) Unknown Completed [facility] HPV Unknown Completed [facility] Influenza Virus Vaccine Quad IM, Preserv and ABX Free 6 MO-64 YRS (FLUCELVAX) Unknown Completed [facility] IPV Unknown Completed [facility] Pneumococcal 7 Conjugate, PCV7 (Prevnar7) Unknown Completed [facility] MMR Unknown Completed [facility] HIB 4 Dose Schedule Unknown Completed [facility] Hep B, Adol or Pedi Dosage Unknown Completed [facility] DTaP, Unspecified Formulation Unknown Completed [facility] TDAP Unknown Completed [facility] Varicella (varivax)(chicken pox) Unknown Completed [facility] Influenza Virus Vaccine Quad .5 mL IM 6+ MO (FLUZONE/FLULAVAL/FL UARIX) Unknown Completed [facility] HPV Unknown Completed [facility] Influenza Virus Vaccine Quad IM, Preserv and ABX Free 6 MO-64 YRS (FLUCELVAX) Unknown Completed [facility] IPV Unknown Completed [facility] Pneumococcal 7 Conjugate, PCV7 (Prevnar7) Unknown Completed [facility] MMR Unknown Completed [facility] Meningococcal Polysaccharide (groups A, C, Y and W-135) conjugate vaccine (MCV4P) Unknown Completed [facility] HIB 4 Dose Schedule Unknown Completed [facility] Hep B, Adol or Pedi Dosage Unknown Completed [facility] DTaP, Unspecified Formulation Unknown Completed [facility] Influenza Virus Vaccine Quad .5 mL IM 6+ MO (FLUZONE/FLULAVAL/FL UARIX) Unknown Completed [facility] Meningococcal Polysaccharide (groups A, C, Y and W-135) conjugate vaccine (MCV4P) Unknown Completed [facility] TDAP Unknown Completed [facility] Varicella (varivax)(chicken pox) Unknown Completed [facility] HPV Unknown Completed [facility] Influenza Virus Vaccine Quad IM, Preserv and ABX Free 6 MO-64 YRS (FLUCELVAX) Unknown Completed [facility] IPV Unknown Completed [facility] Pneumococcal 7 Conjugate, PCV7 (Prevnar7) Unknown Completed [facility] MMR Unknown Completed [facility] HIB 4 Dose Schedule Unknown Completed [facility] Hep B, Adol or Pedi Dosage Unknown Completed [facility] DTaP, Unspecified Formulation Unknown Completed [facility] TDAP Unknown Completed [facility] Varicella (varivax)(chicken pox) Unknown Completed [facility] Influenza Virus Vaccine Quad .5 mL IM 6+ MO (FLUZONE/FLULAVAL/FL UARIX) Unknown Completed [facility] HPV Unknown Completed [facility] Influenza Virus Vaccine Quad IM, Preserv and ABX Free 6 MO-64 YRS (FLUCELVAX) Unknown Completed [facility] IPV Unknown Completed [facility] Pneumococcal 7 Conjugate, PCV7 (Prevnar7) Unknown Completed [facility] MMR Unknown Completed [facility] Meningococcal Polysaccharide (groups A, C, Y and W-135) conjugate vaccine (MCV4P) Unknown Completed [facility] HIB 4 Dose Schedule Unknown Completed [facility] Hep B, Adol or Pedi Dosage Unknown Completed [facility] DTaP, Unspecified Formulation Unknown Completed [facility] TDAP Unknown Completed [facility] Varicella (varivax)(chicken pox) Unknown Completed [facility] Influenza Virus Vaccine Quad .5 mL IM 6+ MO (FLUZONE/FLULAVAL/FL UARIX) Unknown Completed [facility] HPV Unknown Completed [facility] Influenza Virus Vaccine Quad IM, Preserv and ABX Free 6 MO-64 YRS (FLUCELVAX) Unknown Completed [facility] IPV Unknown Completed [facility] Pneumococcal 7 Conjugate, PCV7 (Prevnar7) Unknown Completed [facility] MMR Unknown Completed [facility] Meningococcal Polysaccharide (groups A, C, Y and W-135) conjugate vaccine (MCV4P) Unknown Completed [facility] HIB 4 Dose Schedule Unknown Completed [facility] Hep B, Adol or Pedi Dosage Unknown Completed [facility] DTaP, Unspecified Formulation Unknown Completed [facility] TDAP Unknown Completed [facility] Varicella (varivax)(chicken pox) Unknown Completed [facility] Influenza Virus Vaccine Quad .5 mL IM 6+ MO (FLUZONE/FLULAVAL/FL UARIX) Unknown Completed [facility] HPV Unknown Completed [facility] Influenza Virus Vaccine Quad IM, Preserv and ABX Free 6 MO-64 YRS (FLUCELVAX) Unknown Completed [facility] IPV Unknown Completed [facility] Pneumococcal 7 Conjugate, PCV7 (Prevnar7) Unknown Completed [facility] MMR Unknown Completed [facility] Meningococcal Polysaccharide (groups A, C, Y and W-135) conjugate vaccine (MCV4P) Unknown Completed [facility] HIB 4 Dose Schedule Unknown Completed [facility] Hep B, Adol or Pedi Dosage Unknown Completed [facility] DTaP, Unspecified Formulation Unknown Completed [facility] Influenza Virus Vaccine Quad .5 mL IM 6+ MO (FLUZONE/FLULAVAL/FL UARIX) Unknown Completed [facility] Meningococcal Polysaccharide (groups A, C, Y and W-135) conjugate vaccine (MCV4P) Unknown Completed [facility] TDAP Unknown Completed [facility] Varicella (varivax)(chicken pox) Unknown Completed [facility] HPV Unknown Completed [facility] Influenza Virus Vaccine Quad IM, Preserv and ABX Free 6 MO-64 YRS (FLUCELVAX) Unknown Completed [facility] IPV Unknown Completed [facility] Pneumococcal 7 Conjugate, PCV7 (Prevnar7) Unknown Completed [facility] MMR Unknown Completed [facility] HIB 4 Dose Schedule Unknown Completed [facility] Hep B, Adol or Pedi Dosage Unknown Completed [facility] DTaP, Unspecified Formulation Unknown Completed [facility] Influenza Virus Vaccine Quad .5 mL IM 6+ MO (FLUZONE/FLULAVAL/FL UARIX) Unknown Completed [facility] Meningococcal Polysaccharide (groups A, C, Y and W-135) conjugate vaccine (MCV4P) Unknown Completed [facility] TDAP Unknown Completed [facility] Varicella (varivax)(chicken pox) Unknown Completed [facility] HPV Unknown Completed [facility] Influenza Virus Vaccine Quad IM, Preserv and ABX Free 6 MO-64 YRS (FLUCELVAX) Unknown Completed [facility] IPV Unknown Completed [facility] Pneumococcal 7 Conjugate, PCV7 (Prevnar7) Unknown Completed [facility] MMR Unknown Completed [facility] HIB 4 Dose Schedule Unknown Completed [facility] Hep B, Adol or Pedi Dosage Unknown Completed [facility] DTaP, Unspecified Formulation Unknown Completed [facility] TDAP Unknown Completed [facility] Varicella (varivax)(chicken pox) Unknown Completed [facility] Influenza Virus Vaccine Quad .5 mL IM 6+ MO (FLUZONE/FLULAVAL/FL UARIX) Unknown Completed [facility] HPV Unknown Completed [facility] Influenza Virus Vaccine Quad IM, Preserv and ABX Free 6 MO-64 YRS (FLUCELVAX) Unknown Completed [facility] IPV Unknown Completed [facility] Pneumococcal 7 Conjugate, PCV7 (Prevnar7) Unknown Completed [facility] MMR Unknown Completed [facility] Meningococcal Polysaccharide (groups A, C, Y and W-135) conjugate vaccine (MCV4P) Unknown Completed [facility] HIB 4 Dose Schedule Unknown Completed [facility] Hep B, Adol or Pedi Dosage Unknown Completed [facility] DTaP, Unspecified Formulation Unknown Completed [facility] TDAP Unknown Completed [facility] Varicella (varivax)(chicken pox) Unknown Completed [facility] Influenza Virus Vaccine Quad .5 mL IM 6+ MO (FLUZONE/FLULAVAL/FL UARIX) Unknown Completed [facility] HPV Unknown Completed [facility] Influenza Virus Vaccine Quad IM, Preserv and ABX Free 6 MO-64 YRS (FLUCELVAX) Unknown Completed [facility] IPV Unknown Completed [facility] Pneumococcal 7 Conjugate, PCV7 (Prevnar7) Unknown Completed [facility] MMR Unknown Completed [facility] Meningococcal Polysaccharide (groups A, C, Y and W-135) conjugate vaccine (MCV4P) Unknown Completed [facility] HIB 4 Dose Schedule Unknown Completed [facility] Hep B, Adol or Pedi Dosage Unknown Completed [facility] DTaP, Unspecified Formulation Unknown Completed [facility] TDAP Unknown Completed [facility] Varicella (varivax)(chicken pox) Unknown Completed [facility] Influenza Virus Vaccine Quad .5 mL IM 6+ MO (FLUZONE/FLULAVAL/FL UARIX) Unknown Completed [facility] HPV Unknown Completed [facility] Influenza Virus Vaccine Quad IM, Preserv and ABX Free 6 MO-64 YRS (FLUCELVAX) Unknown Completed [facility] IPV Unknown Completed [facility] Pneumococcal 7 Conjugate, PCV7 (Prevnar7) Unknown Completed [facility] MMR Unknown Completed [facility] Meningococcal Polysaccharide (groups A, C, Y and W-135) conjugate vaccine (MCV4P) Unknown Completed [facility] HIB 4 Dose Schedule Unknown Completed [facility] Hep B, Adol or Pedi Dosage Unknown Completed [facility] DTaP, Unspecified Formulation Unknown Completed [facility] TDAP Unknown Completed [facility] Varicella (varivax)(chicken pox) Unknown Completed [facility] Influenza Virus Vaccine Quad .5 mL IM 6+ MO (FLUZONE/FLULAVAL/FL UARIX) Unknown Completed [facility] HPV Unknown Completed [facility] Influenza Virus Vaccine Quad IM, Preserv and ABX Free 6 MO-64 YRS (FLUCELVAX) Unknown Completed [facility] IPV Unknown Completed [facility] Pneumococcal 7 Conjugate, PCV7 (Prevnar7) Unknown Completed [facility] MMR Unknown Completed [facility] Meningococcal Polysaccharide (groups A, C, Y and W-135) conjugate vaccine (MCV4P) Unknown Completed [facility] HIB 4 Dose Schedule Unknown Completed [facility] Hep B, Adol or Pedi Dosage Unknown Completed [facility] DTaP, Unspecified Formulation Unknown Completed [facility] TDAP Unknown Completed [facility] Varicella (varivax)(chicken pox) Unknown Completed [facility] Influenza Virus Vaccine Quad .5 mL IM 6+ [place] (FLUZONE/FLULAVAL/FL UARIX) Unknown Completed [facility] HPV Unknown Completed [facility] Influenza Virus Vaccine Quad IM, Preserv and ABX Free 6 MO-64 YRS (FLUCELVAX) Unknown Completed [facility] IPV Unknown Completed [facility] Pneumococcal 7 Conjugate, PCV7 (Prevnar7) Unknown Completed [facility] MMR Unknown Completed [facility] Meningococcal Polysaccharide (groups A, C, Y and W-135) conjugate vaccine (MCV4P) Unknown Completed [facility] HIB 4 Dose Schedule Unknown Completed [facility] Hep B, Adol or Pedi Dosage Unknown Completed [facility] DTaP, Unspecified Formulation Unknown Completed [facility] TDAP Unknown Completed [facility] Varicella (varivax)(chicken pox) Unknown Completed [facility] Influenza Virus Vaccine Quad .5 mL IM 6+ MO (FLUZONE/FLULAVAL/FL UARIX) Unknown Completed [facility] HPV Unknown Completed [facility] Influenza Virus Vaccine Quad IM, Preserv and ABX Free 6 MO-64 YRS (FLUCELVAX) Unknown Completed [facility] IPV Unknown Completed [facility] Pneumococcal 7 Conjugate, PCV7 (Prevnar7) Unknown Completed [facility] MMR Unknown Completed [facility] Meningococcal Polysaccharide (groups A, C, Y and W-135) conjugate vaccine (MCV4P) Unknown Completed [facility] HIB 4 Dose Schedule Unknown Completed [facility] Hep B, Adol or Pedi Dosage Unknown Completed [facility] DTaP, Unspecified Formulation Unknown Completed [facility] TDAP Unknown Completed [facility] Varicella (varivax)(chicken pox) Unknown Completed [facility] Influenza Virus Vaccine Quad .5 mL IM 6+ MO (FLUZONE/FLULAVAL/FL UARIX) Unknown Completed [facility] HPV Unknown Completed [facility] Influenza Virus Vaccine Quad IM, Preserv and ABX Free 6 MO-64 YRS (FLUCELVAX) Unknown Completed [facility] IPV Unknown Completed [facility] Pneumococcal 7 Conjugate, PCV7 (Prevnar7) Unknown Completed [facility] MMR Unknown Completed [facility] Meningococcal Polysaccharide (groups A, C, Y and W-135) conjugate vaccine (MCV4P) Unknown Completed [facility] HIB 4 Dose Schedule Unknown Completed [facility] Hep B, Adol or Pedi Dosage Unknown Completed [facility] DTaP, Unspecified Formulation Unknown Completed [facility] TDAP Unknown Completed [facility] Varicella (varivax)(chicken pox) Unknown Completed [facility] Influenza Virus Vaccine Quad .5 mL IM 6+ MO (FLUZONE/FLULAVAL/FL UARIX) Unknown Completed [facility] HPV Unknown Completed [facility] Influenza Virus Vaccine Quad IM, Preserv and ABX Free 6 MO-64 YRS (FLUCELVAX) Unknown Completed [facility] IPV Unknown Completed [facility] Pneumococcal 7 Conjugate, PCV7 (Prevnar7) Unknown Completed [facility] MMR Unknown Completed [facility] Meningococcal Polysaccharide (groups A, C, Y and W-135) conjugate vaccine (MCV4P) Unknown Completed [facility] HIB 4 Dose Schedule Unknown Completed [facility] Hep B, Adol or Pedi Dosage Unknown Completed [facility] DTaP, Unspecified Formulation Unknown Completed [facility] Vital Signs Vital Name Observation Time Observation Value Comments S ource Systolic blood pressure 2024-03-05 16:05:00 135 mm[Hg] [facility] Diastolic blood pressure 2024-03-05 16:05:00 87 mm[Hg] [facility] Heart rate 2024-03-05 16:05:00 94 /min [facility] Body temperature 2024-03-05 16:05:00 35.83 Shawna [facility] Respiratory rate 2024-03-05 16:05:00 15 /min [facility] Oxygen saturation in Arterial blood by Pulse oximetry 2024-03-05 16:05:00 97 /min [facility] Body height 2024-03-05 06:56:00 167.6 cm [facility] Body weight 2024-03-05 06:56:00 104.1 kg [facility] BMI 2024-03-05 06:56:00 37.04 kg/m2 [facility] Systolic blood pressure 2024-03-05 16:05:00 135 mm[Hg] [facility] Diastolic blood pressure 2024-03-05 16:05:00 87 mm[Hg] [facility] Heart rate 2024-03-05 16:05:00 94 /[facility] 2024-03-05 16:05:00 35.83 Shawna [facility] Respiratory rate 2024-03-05 16:05:00 15 /min [facility] Oxygen saturation in Arterial blood by Pulse oximetry 2024-03-05 16:05:00 97 /min Yvan guillen [facility] Body height 2024-03-05 06:56:00 167.6 cm Kenney Azevedoann [facility] Body weight 2024-03-05 06:56:00 104.1 kg Kenney Azevedoann [facility] BMI 2024-03-05 06:56:00 37.04 kg/m2 Kenney drea Azevedoann [facility] Systolic blood pressure 2024-02-26 05:59:00 131 mm[Hg] Yvan Thibodeaux [facility] Diastolic blood pressure 2024-02-26 05:59:00 76 mm[Hg] [facility] Heart rate 2024-02-26 05:59:00 96 /min [facility] [place] [facility] Body temperature 2024-02-26 05:59:00 36.28 Shawna [facility] Respiratory rate 2024-02-26 05:59:00 16 /min [facility] Oxygen saturation in Arterial blood by Pulse oximetry 2024-02-26 05:59:00 97 /min [facility] Body height 2024-02-20 12:35:00 167.6 cm Kenney Azevedoann [facility] Body weight 2024-02-20 12:35:00 99.791 kg Kenney Roche [facility] BMI 2024-02-20 12:35:00 35.51 kg/m2 Kenney shepard [facility] Systolic blood pressure 2024-02-26 05:59:00 131 mm[Hg] [facility] Diastolic blood pressure 2024-02-26 05:59:00 76 mm[Hg] [facility] Heart rate 2024-02-26 05:59:00 96 /min [facility] [place] [facility] Body temperature 2024-02-26 05:59:00 36.28 Shawna [facility] Respiratory rate 2024-02-26 05:59:00 16 /min [facility] Oxygen saturation in Arterial blood by Pulse oximetry 2024-02-26 05:59:00 97 /min [facility] Body height 2024-02-20 12:35:00 167.6 cm [facility] 2024-02-20 12:35:00 99.791 kg Kenney rial [facility] BMI 2024-02-20 12:35:00 35.51 kg/m2 Kenney rial [facility] Heart rate 2024-02-10 12:04:57 66 /min [facility] Respiratory rate 2024-02-10 12:04:57 17 /min [facility] Oxygen saturation in Arterial blood by Pulse oximetry 2024-02-10 12:04:57 100 /min [facility] Systolic blood pressure 2024-02-10 12:04:52 120 mm[Hg] [facility] Diastolic blood pressure 2024-02-10 12:04:52 70 mm[Hg] [facility] Body temperature 2024-02-10 12:04:25 36.83 [facility] Body height 2024-02-09 03:06:00 157.5 cm Kenney osirisl [place] [facility] Body weight 2024-02-09 03:06:00 99.791 kg Kenney rial [facility] BMI 2024-02-09 03:06:00 40.24 kg/m2 Kenney rial [facility] Heart rate 2024-02-10 12:04:57 66 /min [facility] Respiratory rate 2024-02-10 12:04:57 17 /min [facility] Oxygen saturation in Arterial blood by Pulse oximetry 2024-02-10 12:04:57 100 /min [facility] Systolic blood pressure 2024-02-10 12:04:52 120 mm[Hg] [facility] Diastolic blood pressure 2024-02-10 12:04:52 70 mm[Hg] [facility] Body temperature 2024-02-10 12:04:25 36.83 [facility] Body height 2024-02-09 03:06:00 157.5 cm Kenney rial [facility] Body weight 2024-02-09 03:06:00 99.791 kg Kenney rial [facility] BMI 2024-02-09 03:06:00 40.24 kg/m2 Kenney rial [facility] Systolic blood pressure 2023-12-22 04:00:00 126 mm[Hg] [facility] Diastolic blood pressure 2023-12-22 04:00:00 81 mm[Hg] [facility] Heart rate 2023-12-22 04:00:00 72 /min [facility] Body temperature 2023-12-22 04:00:00 36.72 Shawna [facility] Respiratory rate 2023-12-22 04:00:00 13 /min [facility] Oxygen saturation in Arterial blood by Pulse oximetry 2023-12-22 04:00:00 97 /min [facility] Body height 2023-12-22 01:37:00 167.6 cm [facility] Body weight 2023-12-22 01:37:00 105.325 kg [facility] BMI 2023-12-22 01:37:00 37.48 kg/m2 [facility] Systolic blood pressure 2023-10-23 18:44:00 108 mm[Hg] [facility] Diastolic blood pressure 2023-10-23 18:44:00 74 mm[Hg] [facility] Heart rate 2023-10-23 18:44:00 86 /min [facility] Body temperature 2023-10-23 18:44:00 37 Shawna [facility] Respiratory rate 2023-10-23 18:44:00 18 /min [facility] Body height 2023-10-23 18:44:00 167.6 cm [facility] Body weight 2023-10-23 18:44:00 102.059 kg [facility] BMI 2023-10-23 18:44:00 36.32 kg/m2 [facility] Oxygen saturation in Arterial blood by Pulse oximetry 2023-10-23 18:44:00 98 /min [facility] Systolic blood pressure 2023-09-13 18:49:00 121 mm[Hg] [facility] Diastolic blood pressure 2023-09-13 18:49:00 70 mm[Hg] [facility] Heart rate 2023-09-13 18:49:00 63 /min [facility] Respiratory rate 2023-09-13 18:49:00 17 /min [facility] Body height 2023-09-13 18:49:[address] [facility] Body weight 2023-09-13 18:49:[address] [facility] BMI 2023-09-13 18:49:00 36.56 kg/m2 [facility] Oxygen saturation in Arterial blood by Pulse oximetry 2023-09-13 18:49:00 99 /min [facility] Systolic blood pressure 2023-09-10 17:41:00 110 mm[Hg] [facility] Diastolic blood pressure 2023-09-10 17:41:00 65 mm[Hg] [facility] Heart rate 2023-09-10 17:41:00 60 /min [facility] Body height 2023-09-10 17:41:00 167.6 cm [facility] Body weight 2023-09-10 17:41:00 103.42 kg [facility] BMI 2023-09-10 17:41:00 36.80 kg/m2 [facility] Oxygen saturation in Arterial blood by Pulse oximetry 2023-09-10 17:41:00 98 /min [facility] Systolic blood pressure 2023-08-29 14:27:00 100 mm[Hg] [facility] Diastolic blood pressure 2023-08-29 14:27:00 60 mm[Hg] [facility] Heart rate 2023-08-29 14:26:00 56 [facility] Body temperature 2023-08-29 14:26:00 36.78 Shawna [facility] Body height 2023-08-29 14:26:[address] [facility] Body weight 2023-08-29 14:26:00 102.513 kg [facility] BMI 2023-08-29 14:26:00 37.61 kg/m2 [facility] Oxygen saturation in Arterial blood by Pulse oximetry 2023-08-29 14:26:00 98 /min [facility] Systolic blood pressure 2023-08-26 16:05:00 125 mm[Hg] [facility] Diastolic blood pressure 2023-08-26 16:05:00 85 mm[Hg] [facility] Heart rate 2023-08-26 16:05:00 79 /min [facility] Body temperature 2023-08-26 16:05:00 35.89 Shawna [facility] Respiratory rate 2023-08-26 16:05:00 18 /min [facility] Body height 2023-08-26 16:05:00 165.1 cm [facility] Body weight 2023-08-26 16:05:00 103.012 kg [facility] BMI 2023-08-26 16:05:00 37.79 kg/m2 [facility] Oxygen saturation in Arterial blood by Pulse oximetry 2023-08-26 16:05:00 99 /min [facility] Systolic blood pressure 2023-07-17 16:59:00 103 mm[Hg] [facility] Diastolic blood pressure 2023-07-17 16:59:00 75 mm[Hg] [facility] Heart rate 2023-07-17 16:59:00 68 /min [facility] Body temperature 2023-07-17 16:59:00 36.5 Shawna [facility] Respiratory rate 2023-07-17 16:59:00 18 /min [facility] Body height 2023-07-17 16:59:00 165.1 cm [facility] Body weight 2023-07-17 16:59:00 103.874 kg [facility] BMI 2023-07-17 16:59:00 38.11 kg/m2 [facility] Systolic blood pressure 2023-07-03 23:46:27 113 mm[Hg] [facility] Diastolic blood pressure 2023-07-03 23:46:27 98 mm[Hg] [facility] Heart rate 2023-07-03 23:46:27 65 /min [facility] Respiratory rate 2023-07-03 23:46:27 16 /min [facility] Oxygen saturation in Arterial blood by Pulse oximetry 2023-07-03 23:46:27 99 /min [facility] Body temperature 2023-07-03 20:52:00 36.72 Shawna [facility] Body height 2023-07-03 20:52:00 [facility].6 [facility] 2023-07-03 20:52:[address] [facility] BMI 2023-07-03 20:52:00 35.51 kg/m2 [facility] Systolic blood pressure 2023-06-14 05:24:00 132 mm[Hg] [facility] Diastolic blood pressure 2023-06-14 05:24:00 90 mm[Hg] [facility] Heart rate 2023-06-14 05:24:00 98 /min [facility] Body temperature 2023-06-14 05:24:00 37 Shawna [facility] Respiratory rate 2023-06-14 05:24:00 16 /min [facility] Body height 2023-06-14 05:24:[address] [facility] Body weight 2023-06-14 05:24:00 99.791 kg [facility] BMI 2023-06-14 05:24:00 35.51 kg/m2 [facility] Oxygen saturation in Arterial blood by Pulse oximetry 2023-06-14 05:24:00 100 /min [facility] Systolic blood pressure 2023-05-11 12:29:00 135 mm[Hg] [facility] Diastolic blood pressure 2023-05-11 12:29:00 96 mm[Hg] [facility] Heart rate 2023-05-11 12:29:00 77 /min [facility] Body temperature 2023-05-11 12:29:00 37.11 Shawna [facility] Respiratory rate 2023-05-11 12:29:00 18 /min [facility] Body height 2023-05-11 12:29:00 167.6 cm [facility] Body weight 2023-05-11 12:29:[address] [facility] BMI 2023-05-11 12:29:00 35.51 kg/m2 [facility] Oxygen saturation in Arterial blood by Pulse oximetry 2023-05-11 12:29:00 100 /min [facility] Systolic blood pressure 2023-01-21 19:10:00 126 mm[Hg] [facility] Diastolic blood pressure 2023-01-21 19:10:00 84 mm[Hg] [facility] Heart rate 2023-01-21 19:10:00 83 /min [facility] Body height 2023-01-21 19:10:[address] [facility] Body weight 2023-01-21 19:10:00 101.197 kg [facility] BMI 2023-01-21 19:10:00 37.13 kg/m2 [facility] Oxygen saturation in Arterial blood by Pulse oximetry 2023-01-21 19:10:00 98 /min [facility] Body temperature 2022-11-12 14:39:00 36.39 Shawna [facility] Body height 2022-11-12 14:39:[address] [facility] Body weight 2022-11-12 14:39:00 107.412 kg [facility] BMI 2022-11-12 14:39:00 39.41 kg/m2 [facility] Body temperature 2022-08-23 18:23:00 36.39 Shawna [facility] Body height 2022-08-23 18:23:[address] [facility] Body weight 2022-08-23 18:23:00 103.057 kg [facility] BMI 2022-08-23 18:23:00 37.81 kg/m2 [facility] Systolic blood pressure 2022-07-31 01:12:49 131 mm[Hg] [facility] Diastolic blood pressure 2022-07-31 01:12:49 93 mm[Hg] [facility] Heart rate 2022-07-31 01:10:00 86 /min [facility] Body temperature 2022-07-31 01:10:00 37.22 Shawna [facility] Respiratory rate 2022-07-31 01:10:00 18 /min [facility] Body height 2022-07-31 01:10:00 165.1 cm [facility] Body weight 2022-07-31 01:10:[address] [facility] BMI 2022-07-31 01:10:00 36.61 kg/m2 [facility] Oxygen saturation in Arterial blood by Pulse oximetry 2022-07-31 01:10:00 100 /min [facility] Systolic blood pressure 2022-05-22 01:28:00 135 mm[Hg] [facility] Diastolic blood pressure 2022-05-22 01:28:00 78 mm[Hg] [facility] Heart rate 2022-05-22 01:28:00 97 /min [facility] Body temperature 2022-05-22 01:28:00 37 Shawna [facility] Respiratory rate 2022-05-22 01:28:00 20 /min [facility] Body height 2022-05-22 01:28:[address] [facility] Body weight 2022-05-22 01:28:00 99.882 kg [facility] BMI 2022-05-22 01:28:00 36.64 kg/m2 [facility] Oxygen saturation in Arterial blood by Pulse oximetry 2022-05-22 01:28:00 100 /min [facility] Systolic blood pressure 2022-03-30 12:38:00 119 mm[Hg] [facility] Diastolic blood pressure 2022-03-30 12:38:00 93 mm[Hg] [facility] Heart rate 2022-03-30 12:38:00 113 /min [facility] Body temperature 2022-03-30 12:38:00 38 Shawna [facility] Respiratory rate 2022-03-30 12:38:00 20 /min [facility] Body height 2022-03-30 12:38:00 165.1 cm [facility] Body weight 2022-03-30 12:38:00 94.802 kg [facility] BMI 2022-03-30 12:38:00 34.78 kg/m2 [facility] Oxygen saturation in Arterial blood by Pulse oximetry 2022-03-30 12:38:00 100 /min [facility] Systolic blood pressure 2022-03-28 16:09:00 101 mm[Hg] [facility] Diastolic blood pressure 2022-03-28 16:09:00 70 mm[Hg] [facility] Heart rate 2022-03-28 16:09:00 59 /min [facility] Body temperature 2022-03-28 16:09:00 36.56 Shawna [facility] Respiratory rate 2022-03-28 16:09:00 18 /min [facility] Body height 2022-03-28 16:09:00 165.1 cm [facility] Body weight 2022-03-28 16:09:00 94.802 kg [facility] BMI 2022-03-28 16:09:00 34.78 kg/m2 [facility] Systolic blood pressure 2022-03-08 15:50:00 117 mm[Hg] [facility] Diastolic blood pressure 2022-03-08 15:50:00 78 mm[Hg] [facility] Heart rate 2022-03-08 15:50:00 50 /min [facility] Body temperature 2022-03-08 15:50:00 36.83 Shawna [facility] Respiratory rate 2022-03-08 15:50:00 18 /min [facility] Body height 2022-03-08 15:50:00 165.1 cm [facility] Body weight 2022-03-08 15:50:00 97.886 kg [facility] BMI 2022-03-08 15:50:00 35.91 kg/m2 [facility] Systolic blood pressure 2022-02-28 18:45:00 124 mm[Hg] [facility] Diastolic blood pressure 2022-02-28 18:45:00 72 mm[Hg] [facility] Heart rate 2022-02-28 18:45:00 74 /min [facility] Body temperature 2022-02-28 18:45:00 36.56 Shawna [facility] Respiratory rate 2022-02-28 18:45:00 18 /min [facility] Oxygen saturation in Arterial blood by Pulse oximetry 2022-02-28 18:45:00 99 /min [facility] Systolic blood pressure 2022-02-26 20:56:00 127 mm[Hg] [facility] Diastolic blood pressure 2022-02-26 20:56:00 85 mm[Hg] [facility] Heart rate 2022-02-26 20:56:00 101 /min [facility] Body temperature 2022-02-26 20:56:00 36.89 Shawna [facility] Respiratory rate 2022-02-26 20:56:00 18 /min [facility] Body height 2022-02-26 20:56:[address] [facility] Body weight 2022-02-26 20:56:00 101.969 kg [facility] BMI 2022-02-26 20:56:00 37.41 kg/m2 [facility] Heart rate 2022-02-27 04:15:00 64 /min [facility] Oxygen saturation in Arterial blood by Pulse oximetry 2022-02-27 04:15:00 99 /min [facility] Systolic blood pressure 2022-02-27 03:45:00 106 mm[Hg] [facility] Diastolic blood pressure 2022-02-27 03:45:00 59 mm[Hg] [facility] Body temperature 2022-02-27 03:15:00 36.67 Shawna [facility] Respiratory rate 2022-02-27 03:15:00 18 /min [facility] Heart rate 2022-02-25 20:44:00 70 /min [facility] Oxygen saturation in Arterial blood by Pulse oximetry 2022-02-25 20:44:00 99 /min [facility] Systolic blood pressure 2022-02-25 19:45:00 110 mm[Hg] [facility] Diastolic blood pressure 2022-02-25 19:45:00 54 mm[Hg] [facility] Body temperature 2022-02-25 19:45:00 36.89 Shawna [facility] Respiratory rate 2022-02-25 19:45:00 18 /min [facility] Body height 2022-02-25 19:45:00 165.1 cm [facility] Body weight 2022-02-25 19:45:00 101.47 kg [facility] BMI 2022-02-25 19:45:00 37.23 kg/m2 [facility] Systolic blood pressure 2022-02-14 15:32:00 127 mm[Hg] [facility] Diastolic blood pressure 2022-02-14 15:32:00 83 mm[Hg] [facility] Heart rate 2022-02-14 15:32:00 85 /min [facility] Body temperature 2022-02-14 15:32:00 36.78 Shawna [facility] Respiratory rate 2022-02-14 15:32:00 18 /min [facility] Body height 2022-02-14 15:32:00 165.1 cm [facility] Body weight 2022-02-14 15:32:00 103.148 kg [facility] BMI 2022-02-14 15:32:00 37.84 kg/m2 [facility] Systolic blood pressure 2022-02-09 02:52:00 123 mm[Hg] [facility] Diastolic blood pressure 2022-02-09 02:52:00 84 mm[Hg] [facility] Heart rate 2022-02-09 02:52:00 78 /min [facility] Body temperature 2022-02-09 02:52:00 36.61 Shawna [facility] Respiratory rate 2022-02-09 02:52:00 16 /min [facility] Oxygen saturation in Arterial blood by Pulse oximetry 2022-02-09 02:52:00 100 /min [facility] Body weight 2022-02-08 19:38:00 101.878 kg [facility] BMI 2022-02-08 19:38:00 37.38 kg/m2 [facility] Systolic blood pressure 2022-02-07 17:39:00 124 mm[Hg] [facility] Diastolic blood pressure 2022-02-07 17:39:00 84 mm[Hg] [facility] Heart rate 2022-02-07 17:39:00 80 /min [facility] Body temperature 2022-02-07 17:39:00 36.11 Shawna [facility] Body height 2022-02-07 17:39:[address] [facility] Body weight 2022-02-07 17:39:00 102.967 kg [facility] BMI 2022-02-07 17:39:00 37.77 kg/m2 [facility] Oxygen saturation in Arterial blood by Pulse oximetry 2022-02-07 17:39:00 97 /min [facility] Systolic blood pressure 2022-02-04 02:00:00 109 mm[Hg] [facility] Diastolic blood pressure 2022-02-04 02:00:00 61 mm[Hg] [facility] Heart rate 2022-02-04 02:00:00 112 /min [facility] Body temperature 2022-02-04 02:00:00 36.78 Shawna [facility] Respiratory rate 2022-02-04 02:00:00 16 /min [facility] Oxygen saturation in Arterial blood by Pulse oximetry 2022-02-04 02:00:00 99 /min [facility] Body height 2022-02-03 21:39:[address] [facility] Body weight 2022-02-03 21:39:00 101.061 kg [facility] BMI 2022-02-03 21:39:00 37.08 kg/m2 Univ [facility] Heart rate 2022-02-02 17:30:00 86 /[facility] Oxygen saturation in Arterial blood by Pulse oximetry 2022-02-02 17:30:00 100 /min [facility] Systolic blood pressure 2022-02-02 16:46:00 91 mm[Hg] [facility] Diastolic blood pressure 2022-02-02 16:46:00 52 mm[Hg] [facility] Body temperature 2022-02-02 16:46:00 35.56 Shawna [facility] Respiratory rate 2022-02-02 16:46:00 18 /min [facility] Systolic blood pressure 2022-01-31 16:01:00 119 mm[Hg] [facility] Diastolic blood pressure 2022-01-31 16:01:00 85 mm[Hg] [facility] Heart rate 2022-01-31 16:01:00 87 /min [facility] Body temperature 2022-01-31 16:01:00 36.5 Shawna [facility] Respiratory rate 2022-01-31 16:01:00 18 /min [facility] Body height 2022-01-31 16:01:00 165.1 cm [facility] Body weight 2022-01-31 16:01:00 100.245 kg [facility] BMI 2022-01-31 16:01:00 36.78 kg/m2 [facility] Heart rate 2022-01-30 22:30:00 101 /min [facility] Oxygen saturation in Arterial blood by Pulse oximetry 2022-01-30 22:30:00 99 /min [facility] Systolic blood pressure 2022-01-30 22:00:00 129 mm[Hg] [facility] Diastolic blood pressure 2022-01-30 22:00:00 75 mm[Hg] [facility] Respiratory rate 2022-01-30 22:00:00 18 /min [facility] Body temperature 2022-01-30 19:09:00 36.72 Shawna [facility] Body height 2022-01-30 19:09:00 165.1 cm [facility] Body weight 2022-01-30 19:09:00 100.426 kg [facility] BMI 2022-01-30 19:09:00 36.84 kg/m2 [facility] Systolic blood pressure 2022-01-30 18:35:00 166 mm[Hg] [facility] Diastolic blood pressure 2022-01-30 18:35:00 93 mm[Hg] [facility] Heart rate 2022-01-30 18:34:00 88 /min [facility] Body temperature 2022-01-30 18:34:00 36.83 Shawna [facility] Respiratory rate 2022-01-30 18:34:00 16 /min [facility] Body height 2022-01-30 18:34:00 165.1 cm [facility] Body weight 2022-01-30 18:34:00 100.245 kg [facility] BMI 2022-01-30 18:34:00 36.78 kg/m2 [facility] Systolic blood pressure 2022-01-29 04:19:00 111 mm[Hg] [facility] Diastolic blood pressure 2022-01-29 04:19:00 63 mm[Hg] [facility] Heart rate 2022-01-29 04:19:00 85 /min [facility] Body temperature 2022-01-29 04:19:00 36.67 Shawna [facility] Respiratory rate 2022-01-29 04:19:00 16 /min [facility] Oxygen saturation in Arterial blood by Pulse oximetry 2022-01-29 04:19:00 100 /min [facility] Body height 2022-01-29 04:06:00 165.1 cm [facility] Body weight 2022-01-29 04:06:00 101.606 kg 224lb [facility] BMI 2022-01-29 04:06:00 37.28 kg/m2 [facility] Systolic blood pressure 2022-01-17 18:14:00 108 mm[Hg] [facility] Diastolic blood pressure 2022-01-17 18:14:00 71 mm[Hg] [facility] Heart rate 2022-01-17 18:14:00 92 /min [facility] Body temperature 2022-01-17 18:14:00 36.78 Shawna [facility] Body height 2022-01-17 18:14:[address] [facility] Body weight 2022-01-17 18:14:[address] [facility] BMI 2022-01-17 18:14:00 37.41 kg/m2 [facility] Systolic blood pressure 2021-12-20 13:58:00 105 mm[Hg] [facility] Diastolic blood pressure 2021-12-20 13:58:00 73 mm[Hg] [facility] Heart rate 2021-12-20 13:58:00 73 /min [facility] Body temperature 2021-12-20 13:58:00 36.5 Shawna [facility] Respiratory rate 2021-12-20 13:58:00 18 /min [facility] Body height 2021-12-20 13:58:[address] [facility] Body weight 2021-12-20 13:58:[address] [facility] BMI 2021-12-20 13:58:00 36.58 kg/m2 [facility] Systolic blood pressure 2021-11-22 15:58:00 110 mm[Hg] [facility] Diastolic blood pressure 2021-11-22 15:58:00 73 mm[Hg] [facility] Heart rate 2021-11-22 15:58:00 79 /min [facility] Body temperature 2021-11-22 15:58:00 37 Shawna [facility] Respiratory rate 2021-11-22 15:58:00 18 /min [facility] Body height 2021-11-22 15:58:[address] [facility] Body weight 2021-11-22 15:58:00 99.338 kg [facility] BMI 2021-11-22 15:58:00 36.44 kg/m2 [facility] Systolic blood pressure 2021-10-24 19:20:00 108 mm[Hg] [facility] Diastolic blood pressure 2021-10-24 19:20:00 70 mm[Hg] [facility] Heart rate 2021-10-24 19:20:00 87 /min [facility] Body temperature 2021-10-24 19:20:00 37.17 Shawna [facility] Body height 2021-10-24 19:20:[address] [facility] Body weight 2021-10-24 19:20:[address] [facility] BMI 2021-10-24 19:20:00 36.11 kg/m2 [facility] Systolic blood pressure 2021-09-26 18:06:00 99 mm[Hg] [facility] Diastolic blood pressure 2021-09-26 18:06:00 69 mm[Hg] [facility] Heart rate 2021-09-26 18:06:00 62 /[facility] 2021-09-26 18:06:00 36.78 Shawna [facility] Respiratory rate 2021-09-26 18:06:00 18 /min [facility] Body height 2021-09-26 18:06:[address] [facility] Body weight 2021-09-26 18:06:[address] [facility] BMI 2021-09-26 18:06:00 35.61 kg/m2 [facility] Systolic blood pressure 2021-08-29 20:40:00 120 mm[Hg] [facility] Diastolic blood pressure 2021-08-29 20:40:00 79 mm[Hg] [facility] Heart rate 2021-08-29 20:40:00 58 /min [facility] Body temperature 2021-08-29 20:40:00 36.78 Shawna [facility] Respiratory rate 2021-08-29 20:40:00 20 /min [facility] Body height 2021-08-29 20:40:00 [facility].1 [facility] weight 2021-08-29 20:40:[address] [facility] BMI 2021-08-29 20:40:00 36.54 kg/m2 [facility] Systolic blood pressure 2021-08-01 18:12:00 98 mm[Hg] [facility] Diastolic blood pressure 2021-08-01 18:12:00 63 mm[Hg] [facility] Heart rate 2021-08-01 18:12:00 89 /min [facility] Body temperature 2021-08-01 18:12:00 36.94 Shawna [facility] Respiratory rate 2021-08-01 18:12:00 18 /min [facility] Body height 2021-08-01 18:12:[address] [facility] Body weight 2021-08-01 18:12:[address] [facility] BMI 2021-08-01 18:12:00 36.78 kg/m2 [facility] Systolic blood pressure 2021-07-19 19:40:00 112 mm[Hg] [facility] Diastolic blood pressure 2021-07-19 19:40:00 77 mm[Hg] [facility] Heart rate 2021-07-19 19:40:00 76 /min [facility] Body temperature 2021-07-19 19:40:00 36.94 Shawna [facility] Body height 2021-07-19 19:40:[address] [facility] Body weight 2021-07-19 19:40:[address] [facility] BMI 2021-07-19 19:40:00 35.70 kg/m2 [facility] Systolic blood pressure 2021-01-15 12:54:00 125 mm[Hg] [facility] Diastolic blood pressure 2021-01-15 12:54:00 74 mm[Hg] [facility] Heart rate 2021-01-15 12:54:00 68 /min [facility] Body temperature 2021-01-15 12:54:00 36.11 Shawna [facility] Respiratory rate 2021-01-15 12:54:00 18 /min [facility] Oxygen saturation in Arterial blood by Pulse oximetry 2021-01-15 12:54:00 98 /min [facility] Body weight 2021-01-14 09:00:00 96.616 kg [facility] BMI 2021-01-14 09:00:00 35.45 kg/m2 [facility] Systolic blood pressure 2021-01-12 20:03:00 120 mm[Hg] [facility] Diastolic blood pressure 2021-01-12 20:03:00 86 mm[Hg] [facility] Heart rate 2021-01-12 20:03:00 80 /min [facility] Body temperature 2021-01-12 20:03:00 36.89 Shawna [facility] Respiratory rate 2021-01-12 20:03:00 16 /min [facility] Body height 2021-01-12 20:03:00 165.1 cm [facility] Body weight 2021-01-12 20:03:00 96.752 kg [facility] BMI 2021-01-12 20:03:00 35.49 kg/m2 [facility] Systolic blood pressure 2021-01-15 12:54:00 125 mm[Hg] [facility] Diastolic blood pressure 2021-01-15 12:54:00 74 mm[Hg] [facility] Heart rate 2021-01-15 12:54:00 68 /min [facility] Body temperature 2021-01-15 12:54:00 36.11 Shawna [facility] Respiratory rate 2021-01-15 12:54:00 18 /min [facility] Oxygen saturation in Arterial blood by Pulse oximetry 2021-01-15 12:54:00 98 /min [facility] Body weight 2021-01-14 09:00:00 96.616 kg [facility] BMI 2021-01-14 09:00:00 35.45 kg/m2 [facility] Body height 2021-01-12 20:03:00 165.1 cm [facility] Procedures Procedure Date / Time Performed Performing Clinician Source POCT Glucose 2024-03-10 00:00:00 [facility] [place] 1 HOUR INTRAOPERATIVE 2024-03-05 11:40:00 Jeff Gonzalez [facility] Epic ORIF, ANKLE 2024-03-05 08:35:00 Dirk Gonzalez [facility] Epic REMOVAL, EXTERNAL FIXATION DEVICE 2024-03-05 08:35:00 Dirk Gonzalez [facility] POC URINE MANUALLY RESULTED 2024-03-05 07:11:00 Dirk Gonzalez [facility] XR ankle 2 views right 2024-03-05 [facility] 2024-02-26 07:35:00 Dirk Gonzalez [facility] Epic REMOVAL, EXTERNAL FIXATION DEVICE 2024-02-26 07:35:00 Dirk Gonzalez [facility] POC URINE MANUALLY RESULTED 2024-02-26 05:54:00 Dirk Gonzalez [facility] Epic POCT glucose meter docked device 2024-02-26 00:00:00 [facility] Epic Beta hCG Qualitative Urine 2024-02-26 00:00:00 [facility] ECG 12-LEAD 2024-02-17 15:11:56 [place] [facility] COMPREHENSIVE METABOLIC PANEL 2024-02-10 04:57:00 Basilio Bazzidarrian [facility] Epic COMPLETE BLOOD COUNT W/DIFF AND PLATELET 2024-02-10 04:57:00 Basilio Bazzidarrian [facility] Epic COMPLETE BLOOD COUNT 2024-02-10 04:57:00 Basilio Bazzi [facility] Epic AUTOMATED DIFFERENTIAL 2024-02-10 04:57:00 Basilio Bazzi [facility] Epic ECG 12-LEAD 2024-02-09 18:12:51 [facility] [place] LESS THAN 1 HOUR INTRAOPERATIVE 2024-02-09 16:15:00 Dirk Gonzalez [facility] Epic TYPE AND SCREEN 2024-02-09 13:49:00 [place] [facility] CT ANKLE RIGHT WO IV CONTRAST 2024-02-09 08:43:30 Jorge Francis [facility] BETA HCG QUALITATIVE URINE 2024-02-09 08:31:00 Francis, Jorge Romero [facility] Epic XR TIBIA FIBULA 2 VIEWS RIGHT 2024-02-09 05:55:00 Francis, Jorge Romero [facility] Epic XR ANKLE 3+ VIEWS RIGHT 2024-02-09 05:55:00 Francis, Jorge Romero [facility] Epic XR FOOT 3+ VIEWS RIGHT 2024-02-09 05:55:00 Francis, Jorge blue [facility] Epic XR ANKLE 3+ VIEWS RIGHT 2024-02-09 04:49:00 Reji Hill [facility] BASIC METABOLIC PANEL 2024-02-09 03:55:00 Kathy Hill [facility] HCG TOTAL (QUANTITATIVE) 2024-02-09 03:55:00 [place] [facility] COMPLETE BLOOD COUNT W/DIFF AND PLATELET 2024-02-09 03:55:00 [place] [facility] COMPLETE BLOOD COUNT 2024-02-09 03:55:00 [place] [facility] AUTOMATED DIFFERENTIAL 2024-02-09 03:55:00 Mando Hill [facility] EKG-12 LEAD 2023-12-22 04:02:26 [facility] 2023-12-22 01:59:00 Amara Sams ra [facility] MAGNESIUM 2023-12-22 01:55:00 [facility] FREE T4 2023-12-22 01:55:00 [facility] THYROID STIMULATING HORMONE 2023-12-22 01:55:00 Melissa Sams [facility] COMP. METABOLIC PANEL ([id number]) 2023-12-22 01:55:00 Meilssa Sams [facility] CBC WITH DIFF 2023-12-22 01:55:00 [facility] 2023-12-22 01:55:00 [facility] 2023-12-22 01:55:00 [facility] TRANSTHORACIC ECHO (TTE) COMPLETE 2023-09-04 16:53:00 Sonja Eastman [facility] POCT URINALYSIS W/O SPECIFIC GRAVITY 2023-07-17 00:00:00 Abhinav Huang [facility] CT HEAD WO CONTRAST 2023-07-03 22:16:00 Bernadette Laguna [facility] ASSIGNMENT OF BENEFITS 2023-07-03 21:46:56 Docto r Unassigned, [place] [facility] POCT GLUCOSE (AUTOMATED) 2023-07-03 21:22:00 Jw Laguna [facility] POCT TEST 2023-07-03 21:18:00 Bernadette Laguna [facility] MAGNESIUM 2023-07-03 21:17:00 [facility] COMP. METABOLIC PANEL ([id number]) 2023-07-03 21:17:00 Saida Laguna [facility] CBC WITH DIFF 2023-07-03 21:17:[address] [facility] URINALYSIS 2023-07-03 21:17:00 [facility] URINE DRUG (IMMUNOASSAY) - COMPREHENSIVE DRUG SCREEN W/O REFLEX 2023-07-03 21:17:00 Saida Laguna [facility] CONSENT/REFUSAL FOR DIAGNOSIS AND TREATMENT 2023-07-03 20:46:48 Doctor Unassigned, [place] [facility] ASSIGNMENT OF BENEFITS 2023-06-14 05:46:57 Docto r Unassigned, [place] [facility] NOTICE OF PRIVACY PRACTICES 2023-06-14 05:19:53 Doctor Unassigned, [place] [facility] CONSENT/REFUSAL FOR DIAGNOSIS AND TREATMENT 2023-06-14 05:19:16 Doctor Unassigned, [place] [facility] POCT TEST 2023-05-11 12:48:00 Nicole Sloan [facility] URINALYSIS 2023-05-11 12:44:00 Abdirashid Sloan [facility] LIPASE 2023-05-11 12:34:00 [facility] COMP. METABOLIC PANEL ([id number]) 2023-05-11 12:34:00 Abdirashid Sloan [facility] CBC WITH DIFF 2023-05-11 12:34:00 Singer [facility] CONSENT/REFUSAL FOR DIAGNOSIS AND TREATMENT 2023-05-11 12:19:52 Doctor Unassigned, [place] [facility] CONSENT/REFUSAL FOR DIAGNOSIS AND TREATMENT 2022-10-29 13:15:54 Doctor Unassigned, [place] [facility] POCT TEST 2022-07-31 03:16:00 Magalys Lacey [facility] MAGNESIUM 2022-07-31 03:10:00 Magalys Lacey [facility] COMP. METABOLIC PANEL ([id number]) 2022-07-31 03:10:00 Magalys Lacey [facility] CBC WITH DIFF 2022-07-31 03:10:00 Magalys Lacey [facility] URINALYSIS 2022-07-31 03:10:00 Abhijit [facility] NOTICE OF PRIVACY PRACTICES 2022-07-31 00:59:00 Doctor Unassigned, [place] [facility] CONSENT/REFUSAL FOR DIAGNOSIS AND TREATMENT 2022-07-31 00:58:05 Doctor Unassigned, [place] [facility] RAPID STREP SCREEN FOR GROUP A 2022-05-22 01:35:00 Tracy Wheeler [facility] CONSENT/REFUSAL FOR DIAGNOSIS AND TREATMENT 2022-05-22 01:15:31 Doctor Unassigned, [place] [facility] RAPID STREP SCREEN FOR GROUP A 2022-03-30 13:29:00 Kiran Scales [facility] RAPID INFLUENZA A/B 2022-03-30 13:29:00 Kiran Scales [facility] COVID-19 (ID NOW RAPID TESTING) 2022-03-30 13:29:00 Kiran Scales [facility] CONSENT/REFUSAL FOR DIAGNOSIS AND TREATMENT 2022-03-30 12:31:52 Doctor Unassigned, [place] [facility] POCT TEST 2022-03-28 00:00:00 Elliot Gould [facility] PREPARE PACKED RBC 2022-03-01 01:11:43 Elliot Gould [facility] CBC WITH DIFF 2022-02-27 10:28:00 Elliot Gould [facility] CBC WITH DIFF 2022-02-27 10:28:00 Elliot Gould [facility] PREPARE PACKED RBC 2022-02-27 01:40:56 Elliot Gould U [facility] CBC WITH DIFF 2022-02-26 23:01:00 Elliot Gould [facility] HEPATITIS B SURFACE ANTIGEN 2022-02-26 23:01:00 Elliot Gould [facility] ADC OR TIFFANI ONLY - RPR 2022-02-26 23:01:00 Gregory Gould jose enrique [facility] CBC WITH DIFF 2022-02-26 23:01:00 Elliot Gould [facility] HEPATITIS B SURFACE ANTIGEN 2022-02-26 23:01:00 Elliot Gould [facility] ADC OR TIFFANI ONLY - RPR 2022-02-26 23:01:00 Gregory Gould [facility] HB ABO GROUPING 2022-02-26 23:00:00 Elliot Gould [facility] RHO (D) IMMUNE GLOBULIN 2022-02-26 23:00:00 Elliot Gould [facility] HB ABO GROUPING 2022-02-26 23:00:00 [facility] RHO [facility] IMMUNE GLOBULIN 2022-02-26 23:00:00 Elliot Gould [facility] ASSIGNMENT OF BENEFITS 2022-02-26 21:46:08 Docto r Unassigned, [place] [facility] DSU PRE-OP 2022-02-26 06:01:00 Doctor Unass igned, [place] [facility] DSU PRE-OP 2022-02-26 06:01:00 Doctor Unass igned, [place] [facility] POCT URINALYSIS W/O SPECIFIC GRAVITY 2022-02-26 00:00:00 Elliot Gould [facility] URINALYSIS 2022-02-25 20:15:00 Sonia Mayberry [facility] CONSENT/REFUSAL FOR DIAGNOSIS AND TREATMENT 2022-02-25 19:07:24 Doctor Unassigned, [place] [facility] ASSIGNMENT OF BENEFITS 2022-02-25 19:06:09 Docto r Unassigned, [place] [facility] POCT URINALYSIS W/O SPECIFIC GRAVITY 2022-02-14 15:42:00 GouldElliot [facility] CONSENT/REFUSAL FOR DIAGNOSIS AND TREATMENT 2022-02-09 05:01:00 Doctor Unassigned, [place] [facility] AMYLASE 2022-02-08 22:31:00 BryannaElliot [facility] LIPASE 2022-02-08 22:31:00 Bryanna Elliot [facility] COMP. METABOLIC PANEL ([id number]) 2022-02-08 22:31:00 BryannaElliot [facility] CBC WITH DIFF 2022-02-08 22:31:00 Elliot Gould [facility] ASSIGNMENT OF BENEFITS 2022-02-08 19:31:04 Docto r Unassigned, [place] [facility] CONSENT/REFUSAL FOR DIAGNOSIS AND TREATMENT 2022-02-08 19:30:26 Doctor Unassigned, [place] [facility] POCT GLUCOSE (AUTOMATED) 2022-02-03 21:46:00 Elliot Gould [facility] CONSENT/REFUSAL FOR DIAGNOSIS AND TREATMENT 2022-02-03 21:09:38 Doctor Unassigned, [place] [facility] HB ABO GROUPING 2022-02-02 07:25:00 Zaina [facility] LACTATE DEHYDROGENASE 2022-02-02 04:42:00 Zaina [facility] URIC ACID 2022-02-02 04:42:00 Zaina [facility] COMP. METABOLIC PANEL ([id number]) 2022-02-02 04:42:00 [facility] 2022-02-02 04:42:00 Zaina [facility] URINALYSIS 2022-02-02 04:42:00 Ly, [facility] HEPATITIS B SURFACE ANTIGEN 2022-02-02 04:42:00 Ly, [facility] PROTEIN CREAT RATIO URINE RANDOM 2022-02-02 04:42:00 Ly, [facility] HIV 1/2 AG-AB WITH REFLEX 2022-02-02 04:42:00 Ly, [facility] GALV ONLY - SYPHILIS IGG/IGM 2022-02-02 04:42:00 Ly, [facility] HOSPITAL ADMISSION 2022-02-01 05:01:00 Doctor Un assigned, [place] [facility] POCT URINALYSIS W/O SPECIFIC GRAVITY 2022-01-31 00:00:00 Shari Diamond [facility] ASSIGNMENT OF BENEFITS 2022-01-30 18:48:53 Docto r Unassigned, [place] [facility] NOTICE OF PRIVACY PRACTICES 2022-01-29 03:52:27 Doctor Unassigned, [place] [facility] ASSIGNMENT OF BENEFITS 2022-01-29 03:49:18 Docto r Unassigned, [place] [facility] URINALYSIS 2022-01-17 18:50:00 Elliot Gould [facility] TDAP VACCINE, >11 YRS, IM 2022-01-17 18:16:09 Gregory Gould [facility] FLU VACC ([id number]), 6 MO-64 YRS, .5ML, IM, QUAD (FLUCELVAX) 2022-01-17 18:16:09 Elliot Gould [facility] POCT URINALYSIS W/O SPECIFIC GRAVITY 2022-01-17 00:00:00 Elliot Gould [facility] POCT URINALYSIS W/O SPECIFIC GRAVITY 2021-12-20 14:00:00 Shari Diamond [facility] SECOND AND THIRD TRIMESTER ULTRASOUND 2021-12-15 14:11:00 Elliot Gould [facility] POCT URINALYSIS W/O SPECIFIC GRAVITY 2021-11-22 00:00:00 Ellito Gould [facility] CONSENT/REFUSAL FOR DIAGNOSIS AND TREATMENT 2021-10-24 19:11:23 Doctor Unassigned, [place] [facility] ASSIGNMENT OF BENEFITS 2021-10-24 19:10:45 Docto r Unassigned, [place] [facility] POCT URINALYSIS W/O SPECIFIC GRAVITY 2021-10-24 00:00:00 Shari Diamond [facility] SCANNED LAB RESULTS 2021-09-26 05:01:00 Doctor Brenden walden, [place] [facility] POCT URINALYSIS W/O SPECIFIC GRAVITY 2021-09-26 00:00:00 Elliot Gould [facility] POCT URINALYSIS W/O SPECIFIC GRAVITY 2021-08-29 20:41:00 Lobo Shari [facility] POCT URINALYSIS W/O SPECIFIC GRAVITY 2021-08-01 00:00:00 Elliot Gould [facility] FIRST TRIMESTER LESS THAN 14 WEEKS WITH TRANSVAGINAL 2021-07-31 19:50:00 [facility] 2021-07-19 20:49:29 Elliot Gould [facility] ASSIGNMENT OF BENEFITS 2021-07-19 20:24:08 Docto r Unassigned, [place] [facility] FLU VACC ([id number]), 2-64 YRS, .5ML, IM, QUAD (FLUCELVAX) 2021-07-19 19:47:42 Elliot Gould [facility] POCT TEST 2021-07-19 00:00:00 Elliot Gould [facility] POCT URINALYSIS W/O SPECIFIC GRAVITY 2021-07-19 00:00:00 [facility] [facility] ANGIOGRAM HEAD 2021-01-15 15:55:38 Nohemy Leung [facility] ANGIOGRAM HEAD 2021-01-15 15:55:38 Nohemy Leung [facility] MR BRAIN W WO CONTRAST 2021-01-15 01:57:00 Jennyfer Leung [facility] MR BRAIN W WO CONTRAST 2021-01-15 01:57:00 Jennyfer Leung [facility] BASIC METABOLIC PANEL (NA, K, CL, CO2, GLUCOSE, BUN, CREATININE, CA) 2021-01-14 09:29:00 Juan Smyth [facility] MAGNESIUM 2021-01-14 09:29:00 Juan Smyth [facility] MAGNESIUM 2021-01-14 09:29:00 Juan Smyth [facility] BASIC METABOLIC PANEL (NA, K, CL, CO2, GLUCOSE, BUN, CREATININE, CA) 2021-01-14 09:29:00 [facility]FF 2021-01-14 09:25[facility]00 [facility] 2021-01-14 09:25:00 [facility] SPINAL LUMBAR PUNCTURE DIAGNOSTIC 2021-01-13 21:32:50 Libra [facility] IR SPINAL LUMBAR PUNCTURE DIAGNOSTIC 2021-01-13 21:32:50 [facility] BODY FLUID MANUAL DIFF 2021-01-13 21:00:00 Nicolas Smyth [facility] CEREBROSPINAL FLUID GLUCOSE 2021-01-13 21:00:00 [facility] CEREBROSPINAL FLUID PROTEIN 2021-01-13 21:00:00 [facility] CSF CULTURE 2021-01-13 21:00:00 Emanuel Roberts [facility] EXTRA TUBE CSF 2021-01-13 21:00:00 Juan Smyth [facility] CEREBROSPINAL FLUID PROTEIN 2021-01-13 21:00:00 [facility] CEREBROSPINAL FLUID GLUCOSE 2021-01-13 21:00:00 Libra [facility] BODY FLUID DIRECT COUNT 2021-01-13 21:00:00 Frantz Smyth [facility] EXTRA TUBE CSF 2021-01-13 21:00:00 Juan Smyth [facility] CSF CULTURE 2021-01-13 21:00:00 Emanuel Roberts [facility] PROTHROMBIN TIME / INR 2021-01-13 18:57:00 Nicolas Smyth [facility] PROTHROMBIN TIME / INR 2021-01-13 18:57:00 Nicolas Smyth [facility] PROTHROMBIN TIME / INR 2021-01-13 09:30:00 Esechjoseph Silvana [facility] ACTIVATED PARTIAL THRMPLAS WILLIAM 2021-01-13 09:30:00 Esechjoseph [facility] PROTHROMBIN TIME / INR 2021-01-13 09:30:00 Esechie Silvana [facility] ACTIVATED PARTIAL THRMPLAS WILLIAM 2021-01-13 09:30:00 Megan [facility] CBC WITH DIFF 2021-01-13 04:33:00 Peter Garcia [facility] COMP. METABOLIC PANEL (92407) 2021-01-13 04:33:00 Peter Garcia [facility] MAGNESIUM 2021-01-13 04:33:00 [facility] 2021-01-13 04:33:00 Esechie, [place] [facility] 2021-01-13 04:33:00 Esechie, [facility] TROPONIN I 2021-01-13 04:33:00 Esechie, [facility] COMP. METABOLIC PANEL ([id number]) 2021-01-13 04:33:00 Peter Garcia [facility] CBC WITH DIFF 2021-01-13 04:33:00 Peter Garcia [facility] COVID-19 (ID NOW RAPID TESTING) 2021-01-13 03:33:00 Kayla Goodson [facility] COVID-19 (ID NOW RAPID TESTING) 2021-01-13 03:33:00 Kayla Goodson [facility] LAB ONLY COVID INTERPRETATION 2021-01-13 03:33:00 Kayla Goodson [facility] CONSENT/REFUSAL FOR DIAGNOSIS AND TREATMENT 2021-01-13 01:53:28 Doctor Unassigned, [place] [facility] CONSENT/REFUSAL FOR DIAGNOSIS AND TREATMENT 2021-01-13 01:53:28 Doctor Unassigned, [place] [facility] POCT TEST 2020-12-29 07:22:00 Coleen Miller [facility] NOTICE OF PRIVACY PRACTICES 2020-12-29 07:04:36 Doctor Unassigned, [place] [facility] CONSENT/REFUSAL FOR DIAGNOSIS AND TREATMENT 2020-12-29 07:04:21 Doctor Unassigned, [place] [facility] POCT TEST 2020-11-22 05:08:00 Amara Sams ra [facility] CBC WITH DIFF 2020-11-22 04:55:00 Melissa Sams [facility] BASIC METABOLIC PANEL (NA, K, CL, CO2, GLUCOSE, BUN, CREATININE, CA) 2020-11-22 04:55:00 Melissa Sams [facility] NOTICE OF PRIVACY PRACTICES 2020-11-22 04:19:31 Doctor Unassigned, [place] [facility] CONSENT/REFUSAL FOR DIAGNOSIS AND TREATMENT 2020-11-22 04:17:24 Doctor Unassigned, [place] [facility] EMERGENCY SERVICES AGREEMENTS AND AUTHORIZATIONS 2020-11-21 05:01:00 Doctor Unassigned, [place] [facility] GC & CHLAMYDIA AMPLIFIED ASSAY 2020-11-07 18:21:00 Lobo [facility] GALV ONLY - VAGINAL PATHOGENS BY NUCLEIC ACID TESTING 2020-11-07 18:21:00 Shari Diamond [facility] CT ANGIOGRAM HEAD 2020-10-27 07:36:57 Nkechi Olivares [facility] CT ANGIOGRAM NECK 2020-10-27 07:36:57 Nkechi Olivares U [facility] CT HEAD WO CONTRAST 2020-10-27 07:33:49 Nkechi Olivares [facility] CBC WITH DIFF 2020-10-27 07:04:00 Nkechi Olivares [facility] BASIC METABOLIC PANEL (NA, K, CL, CO2, GLUCOSE, BUN, CREATININE, CA) 2020-10-27 07:04:00 Nkechi Olivares [facility] CONSENT/REFUSAL FOR DIAGNOSIS AND TREATMENT 2020-10-27 06:17:09 Doctor Unassigned, [place] [facility] EMERGENCY SERVICES AGREEMENTS AND AUTHORIZATIONS 2020-10-27 05:01:00 Doctor Unassigned, [place] [facility] POCT TEST 2020-10-25 23:55:00 Nkechi Olivares [facility] URINALYSIS 2020-10-25 23:48:00 Nkechi Olivares [facility] NOTICE OF PRIVACY PRACTICES 2020-10-25 22:10:05 Doctor Unassigned, [place] [facility] CONSENT/REFUSAL FOR DIAGNOSIS AND TREATMENT 2020-10-25 22:09:41 Doctor Unassigned, [place] [facility] EMERGENCY SERVICES AGREEMENTS AND AUTHORIZATIONS 2020-10-25 05:01:00 Doctor Unassigned, [place] [facility] SECTION Elliot Gould [facility] SECTION Elliot Gould [facility] ECG 12 lead [facility] Oz n Epic Oxygen Therapy - Patient Type: Adult; Device: Simple Face Mask; Rate in liters per minute: 6 Lpm; Follow Respiratory Pathway: Yes [place]van [place] Epic Incentive spirometry [facility] Start Date/Time End Date/Time Encounter Type Admission Type Attending [facility] Care Department Encounter ID Source 2022-11-20 09:52:09 Outpatient SAMMY JI [id number] ELGINOPO ELGINOPO [id number] [place] [facility] 2022-02-02 14:13:49 Outpatient X [facility] JAVAD [id number] [facility] 2021-02-21 01:01:49 Emergency [facility] [id number] [facility] 2021-02-20 21:22:40 Emergency [facility] [id number] [facility] 2021-02-20 12:36:56 Emergency [facility] [id number] [facility] 2021-02-20 06:43:59 Emergency [facility] [id number] [facility] 2021-02-20 06:24:27 Emergency [facility] [id number] [facility] 2021-02-16 20:10:04 Outpatient P [facility] JAVAD [id number] [facility] 2021-02-16 17:53:58 Outpatient P [facility] JAVAD [id number] [facility] 2021-02-16 16:15:54 Outpatient P [facility] JAVAD [id number] [facility] 2024-03-16 09:45:00 2024-03-16 09:45:00 Outpatient DIRK GONZALEZ [facility] [id number] [facility] 2024-03-09 08:00:00 2024-03-09 08:00:00 Outpatient DIRK GONZALEZ [facility] [id number] [facility] 2024-03-05 06:23:00 2024-03-05 18:20:00 Outpatient Elective DIRK GONZALEZ [facility] [id number] [facility] 2024-03-05 06:23:00 2024-03-05 18:20:00 Hospital Encounter Dirk Gonzalez [facility] 1.114 350.1.13.70 8.2.7.2.686 [id number] Arcadio dooley [facility] 2024-02-26 05:07:00 2024-02-26 23:59:00 Outpatient Elective DIRK GONZALEZ [facility] [id number] [facility] 2024-02-26 05:07:00 2024-02-26 23:59:00 Hospital Encounter Dirk Gonzalez [facility] 1.114 350.1.13.70 8.2.7.2.686 [id number] [facility] 2024-02-17 08:45:00 2024-02-17 08:56:18 Office Visit Adi Armendariz [facility] [address] [facility] 1.84.114 350.1.13.58 9.2.7.2.686 [id number] [facility] 2024-02-09 03:08:00 2024-02-10 15:48:00 Inpatient Elective NICHOLEVIRAMONE [facility] General Medicine [id number] [facility] 2024-02-09 03:08:00 2024-02-10 15:48:00 Hospital Encounter Fanny Borges, Joie Bazzi, Mone [facility] 1..114 350.1.13.70 8.2.7.2.686 [id number] Arcadio Roche [facility] 2024-02-17 15:11:56 2024-02-09 23:59:00 Inpatient Elective MHEHVI EHVI [id number] [facility] 2024-02-09 13:45:00 2024-02-09 23:59:00 Hospital Encounter Resource, Hvi V Ecg Gen Ec[facility] [place] [facility] 1..114 350.1.13.70 8.2.7.2.686 [id number] [facility] 2024-01-17 11:00:00 2024-01-17 11:00:00 Outpatient R ANNA HEARN [facility] [id number] [facility] 2024-01-13 00:00:00 2024-01-14 07:36:03 Patient Secure Msg Anna Hearn [facility] 1.84.114 350.1.13.10 4.2.7.2.686 [id number] [facility] 2023-12-25 00:00:00 2023-12-30 08:40:13 Patient Secure Msg Sheila Orta [facility] QIAN PROFESSIO NAL BUILDING 1.84.114 350.1.13.10 4.2.7.2.686 [id number] [facility] 2023-12-25 00:00:00 2023-12-26 09:11:10 Refill Anna Hearn Gerard [facility] 1..840.114 350.1.13.10 4.2.7.2.686 [id number] [facility] 2023-12-26 09:00:00 2023-12-26 09:00:00 Outpatient R [facility] [id number] [facility] 2023-12-21 20:40:00 2023-12-21 23:13:00 Emergency X MELISSA SAMS [facility]DR[facility] ERT [id number] [facility] 2023-12-21 20:40:00 2023-12-21 23:13:00 Emergency Melissa Sams [facility] 1..840.114 350.1.13.10 4.2.7.2.686 [id number] [facility] 2023-11-28 20:02:00 2023-11-29 01:59:00 Emergency EM Gabriele [place] [facility] VLADISLAV [id number] 2023-11-12 13:00:00 2023-11-12 13:00:00 Outpatient R ALLIE ROY [facility] [id number] [facility] 2023-10-23 14:30:00 2023-10-23 14:30:00 Customer Contact Sales Associate Visit Lab, Ang - Db Anna Hearn [facility] 1..840.114 350.1.13.10 4.2.7.2.686 [id number] [facility] 2023-10-23 14:00:00 2023-10-23 14:24:11 Outpatient R ANNA HEARN [facility] [id number] [facility] 2023-10-23 14:00:00 2023-10-23 14:24:11 Office Visit Anna Hearn [facility] 1.2.840.114 350.1.13.10 4.2.7.2.686 [id number] [facility] 2023-09-05 00:00:00 2023-10-12 18:24:26 Patient Secure Msg Doctor Unassigned, [place] [facility] 1..840.114 350.1.13.10 4.2.7.2.686 [id number] [facility] 2023-10-07 09:00:00 2023-10-07 09:00:00 Outpatient SHEILA FOLEY [facility] [id number] [facility] 2023-10-04 00:00:00 2023-10-04 00:00:00 Outpatient ALVERTO TEJADA [facility] [id number] [facility] 2023-10-02 13:00:00 2023-10-02 13:00:00 Outpatient R ANNA HEARN [facility] [id number] [facility] 2023-08-28 00:00:00 2023-09-28 18:21:55 Patient Secure Msg Doctor Unassigned, [place] [facility] 1..840.114 350.1.13.10 4.2.7.2.686 [id number] [facility] 2023-09-27 00:00:00 2023-09-27 00:00:00 Outpatient ALVERTO TEJADA [facility] [id number] [facility] 2023-09-20 08:00:00 2023-09-20 08:00:00 Outpatient SONJA PHELAN [facility] [id number] [facility] 2023-09-19 13:30:00 2023-09-19 13:30:00 Outpatient R SONJA EASTMAN [facility] [id number] [facility] 2023-09-17 09:00:00 2023-09-17 09:00:00 Outpatient R SALABHINAV [facility] [id number] [facility] 2023-09-13 14:00:00 2023-09-13 14:11:05 Outpatient R SD [facility] [id number] [facility] 2023-09-13 14:00:00 2023-09-13 14:11:05 [facility] 1.2.840.114 350.1.13.10 4.2.7.2.686 [id number] [facility] 2023-09-10 13:45:00 2023-09-10 14:00:00 Customer Contact Sales Associate Visit Lab, Ifeanyi - [facility] 1.2840.114 350.1.13.10 4.2.7.2.686 [id number] [facility] 2023-09-10 12:30:00 2023-09-10 12:55:44 Outpatient R ANNA HEARN [facility] [id number] [facility] 2023-09-10 12:30:00 2023-09-10 12:55:44 Office Visit Anna Hearn [facility] 1.2840.114 350.1.13.10 4.2.7.2.686 [id number] [facility] 2023-09-05 00:00:00 2023-09-09 11:18:19 Telephone Anna Hearn Gerard [facility] 1.2840.114 350.1.13.10 4.2.7.2.686 [id number] [facility] 2023-09-04 11:10:47 2023-09-04 23:59:00 Outpatient R SONJA EASTMAN [facility] [id number] [facility] 2023-09-04 11:10:47 2023-09-04 23:59:00 Hospital Encounter Raiza Sonja Soumya [facility] 1.2840.114 350.1.13.10 4.2.7.2.686 [id number] [facility] 2023-08-29 10:45:00 2023-08-29 11:00:00 Customer Contact Sales Associate Visit Lab, Ifeanyi Hearn Anna [facility] 1.840.114 350.1.13.10 4.2.7.2.686 [id number] [facility] 2023-08-29 10:00:00 2023-08-29 10:10:47 Outpatient R ANNA HEARN [facility] [id number] [facility] 2023-08-29 10:00:00 2023-08-29 10:10:47 Office Visit Nadiya Anna Gerard [facility] 1.840.114 350.1.13.10 4.2.7.2.686 [id number] [facility] 2023-08-28 08:00:00 2023-08-28 08:00:00 Outpatient R ANNA HEARN [facility] [id number] [facility] 2023-08-26 11:30:00 2023-08-26 11:45:38 Outpatient R RAIZA SONJA [facility] [id number] [facility] 2023-08-26 11:30:00 2023-08-26 11:45:38 Office Visit Sonja Eastman [facility] 1.284.114 350.1.13.10 4.2.7.2.686 [id number] [facility] 2023-07-31 12:16:00 2023-07-31 23:22:00 Outpatient SAMMY BURK [id number] [facility] [id number] [facility] 2023-07-19 00:00:00 2023-07-19 00:00:00 [facility]ill [facility] 1.2.840.114 350.1.13.10 4.2.7.2.686 [id number] [facility] 2023-07-19 00:00:00 2023-07-19 00:00:00 Patient Secure Msg Doctor Unassigned, [place] [facility] BU[facility] 1.2.840.114 350.1.13.10 4.2.7.2.686 [id number] [facility] 2023-07-17 12:30:00 2023-07-17 12:30:00 Office Visit Abhinav Huang [facility] 1.2.840.114 350.1.13.10 4.2.7.2.686 [id number] [facility] 2023-07-17 12:30:00 2023-07-17 12:22:54 Outpatient ABHINAV MARX [facility] [id number] [facility] 2023-07-17 09:30:00 2023-07-17 09:30:00 Outpatient Reji [facility] [id number] [facility] 2023-07-11 10:30:00 2023-07-11 10:30:00 Outpatient ABHINAV MARX [facility] [id number] [facility] 2023-07-04 00:00:00 2023-07-04 00:00:00 Patient Secure Msg Doctor Unassigned, [place] [facility] 1.2840.114 350.1.13.10 4.2.7.2.686 [id number] [facility] 2023-07-03 15:54:00 2023-07-03 18:47:00 [facility] [id number] [facility] 2023-07-03 15:54:00 2023-07-03 18:47:00 Emergency Saida Laguna [facility] 1.2840.114 350.1.13.10 4.2.7.2.686 [id number] [facility] 2023-06-13 23:30:00 2023-06-14 00:10:00 Emergency X [facility] ERT [id number] [facility] 2023-06-13 23:30:00 2023-06-14 00:10:00 Emergency Deins, [facility] 1.2840.114 350.1.13.10 4.2.7.2.686 [id number] [facility] 2023-06-13 00:00:00 2023-06-13 00:00:00 Orders Only Doctor Unassigned, [place] [facility] 1.840.114 350.1.13.10 4.2.7.2.686 [id number] [facility] 2023-05-15 00:00:00 2023-05-15 00:00:00 Patient Secure Msg Doctor Unassigned, [place] [facility] 1.2840.114 350.1.13.10 4.2.7.2.686 [id number] [facility] 2023-05-13 00:00:00 2023-05-13 00:00:00 Letter (Out) Clinic, [facility] 1.2840.114 350.1.13.10 4.2.7.2.686 [id number] [facility] 2023-05-11 06:26:00 2023-05-11 08:31:00 Emergency CAITY JONES [facility] ERT [id number] [facility] 2023-05-11 06:26:00 2023-05-11 08:31:00 Emergency Abdirashid Sloanartjalen Caity [facility] 1.2840.114 350.1.13.10 4.2.7.2.686 [id number] [facility] 2023-04-27 00:00:00 2023-04-27 00:00:00 Alverto Foster [facility] 1.2.840.114 350.1.13.10 4.2.7.2.686 [id number] [facility] 2023-04-03 14:00:00 2023-04-03 14:00:00 Outpatient ALVERTO TEJADA [facility] [id number] [facility] 2023-03-04 00:00:00 2023-03-04 00:00:00 Case Management Annelise Brown [facility] 1.2.840.114 350.1.13.10 4.2.7.2.686 [id number] [facility] 2023-02-14 09:15:00 2023-02-14 09:15:00 Outpatient COSME BOYER [facility] [id number] [facility] 2023-02-01 09:51:00 2023-02-01 14:57:00 Outpatient CYRUS GARCIA [id number] N [place] NO SHOW/CANCEL LED [id number] [facility] 2023-01-25 10:52:00 2023-01-25 14:21:00 Outpatient CYRUS GARCIA [id number] N [place] NO SHOW/CANCEL LED [id number] [facility] 2023-01-21 15:00:00 2023-01-21 15:20:00 Office Visit Alverto Olivares Adalberto [facility]ILD[facility] 1.2.840.114 350.1.13.10 4.2.7.2.686 [id number] [facility] 2023-01-21 15:00:00 2023-01-21 15:00:00 Outpatient R ALVERTO OLIVARES [facility] [id number] [facility] 2022-12-26 09:30:00 2022-12-26 09:30:00 Outpatient R GLORIA JONES CRAIG [facility] [id number] [facility] 2022-12-14 09:19:00 2022-12-14 13:26:00 Outpatient SAMMY BURK [id number] [facility] [id number] [facility] 2022-12-12 13:00:00 2022-12-12 13:00:00 Outpatient R [facility] [id number] [facility] 2022-11-20 10:20:00 2022-11-20 17:52:00 Outpatient SAMMY JI [id number] [facility] [id number] [facility] 2022-11-12 10:00:00 2022-11-12 10:15:00 Office Visit Cosme Brennan [facility] 1..840.114 350.1.13.10 4.2.7.2.686 [id number] [facility] 2022-11-12 10:00:00 2022-11-12 10:00:00 Outpatient R COSME BRENNAN [facility] [id number] [facility] 2022-10-29 13:00:00 2022-10-29 15:00:00 Ancillary Visit Anna Dejesus Lisa Garcia [facility] 1.2.840.114 350.1.13.10 4.2.7.2.686 [id number] [facility] 2022-10-29 13:00:00 2022-10-29 13:00:00 Outpatient LISA ROSALES [facility] [id number] [facility] 2022-10-29 08:15:00 2022-10-29 09:00:00 Ancillary Visit 1, [employer] Lisa Garcia [facility] 1.2.840.114 350.1.13.10 4.2.7.2.686 [id number] [facility] 2022-10-29 00:00:00 2022-10-29 00:00:00 Orders Only Doctor Unassigned, [place] [facility] 1.2.840.114 350.1.13.10 4.2.7.2.686 [id number] [facility] 2022-10-18 09:30:00 2022-10-18 09:30:00 Outpatient ELLIOT MOJICA [facility] [id number] [facility] 2022-08-23 13:30:00 2022-08-23 13:45:00 Office Visit Cosme Brennan [facility] 1.2.840.114 350.1.13.10 4.2.7.2.686 [id number] [facility] 2022-08-23 13:30:00 2022-08-23 13:30:00 Outpatient COSME BOYER [facility] [id number] [facility] 2022-08-09 10:00:00 2022-08-09 10:00:00 Outpatient COSME BOYER [facility] [id number] [facility] 2022-08-01 13:20:00 2022-08-01 13:20:00 Outpatient R TERRENCE ALVERTO [facility] [id number] [facility] 2022-07-30 20:13:00 2022-07-31 00:14:00 Emergency X MAGALYS LACEY [facility] ERT [id number] [facility] 2022-07-30 20:13:00 2022-07-31 00:14:00 Emergency Magalys Lacey [facility] 1.2.840.114 350.1.13.10 4.2.7.2.686 [id number] [facility] 2022-06-08 09:30:00 2022-06-08 09:30:00 Outpatient ELLIOT MOJICA [facility] [id number] [facility] 2022-05-21 19:31:00 2022-05-21 20:58:00 Emergency X TRACY WHEELER [facility] ERT [id number] [facility] 2022-05-21 19:31:00 2022-05-21 20:58:00 Emergency Tracy Wheeler [facility] 1.2.840.114 350.1.13.10 4.2.7.2.686 [id number] [facility] 2022-05-17 00:00:00 2022-05-17 00:00:00 [facility] 1.2.840.114 350.1.13.10 4.2.7.2.686 [id number] [facility] 2022-05-14 08:30:00 2022-05-14 08:30:00 Outpatient ELLIOT MOJICA [facility] [id number] [facility] [facility] 2022-04-11 00:00:00 2022-04-11 00:00:00 Patient Secure [facility] 1.2.840.114 350.1.13.10 4.2.7.2.686 [id number] [facility] 2022-03-30 06:43:00 2022-03-30 09:05:00 Emergency X KIRAN SCALES [facility] ERT [id number] [facility] 2022-03-30 06:43:00 2022-03-30 09:05:00 Emergency Kiran Scales E [facility] 1..840.114 350.1.13.10 4.2.7.2.686 [id number] [id number] [facility] 2022-03-28 09:45:00 2022-03-28 10:52:09 Outpatient R ELLIOT OGULD [facility] [id number] [facility] 2022-03-28 09:45:00 2022-03-28 10:52:09 Routine Visit Elliot Gould [facility] 1..840.114 350.1.13.10 4.2.7.2.686 [id number] 134 [id number] [facility] 2022-03-14 09:40:00 2022-03-14 09:40:00 Outpatient ALVERTO TEJADA [facility] [id number] [facility] 2022-03-08 09:45:00 2022-03-08 10:14:58 Outpatient R ELLIOT GOULD [facility] [id number] [facility] 2022-03-08 09:45:00 2022-03-08 10:14:58 Routine Visit [facility]anna [facility] 1..840.114 350.1.13.10 4.2.7.2.686 [id number] 134 [id number] [facility] 2022-02-26 15:51:00 2022-02-28 18:50:00 Inpatient P ELLIOT GOULD [facility] JAVAD [id number] [facility] 2022-02-26 15:51:00 2022-02-28 18:50:00 Hospital Encounter Elliot Gould [facility] 1.2.840.114 350.1.13.10 4.2.7.2.686 [id number] [id number] [facility] 2022-02-26 15:00:00 2022-02-26 15:25:23 Outpatient R ELLIOT GOULD [facility] [id number] [facility] 2022-02-26 15:00:00 2022-02-26 15:25:23 Routine Visit Elliot Gould [facility] PROFESSIO NAL BUILDING 1.2.840.114 350.1.13.10 4.2.7.2.686 [id number] 134 [id number] [facility] 2022-02-26 00:00:00 2022-02-26 00:00:00 Orders Only Doctor Unassigned, [place] [facility] 1.2.840.114 350.1.13.10 4.2.7.2.686 [id number] 009 [id number] [facility] 2022-02-26 00:00:00 2022-02-26 00:00:00 Prep For Surgery [facility] 1.2.840.114 350.1.13.10 4.2.7.2.686 [id number] 134 [id number] [facility] 2022-02-26 00:00:00 2022-02-26 00:00:00 Surgery Elliot Gould [facility] 1.2.840.114 350.1.13.10 4.2.7.2.686 [id number] [id number] [facility] 2022-02-25 13:15:00 2022-02-25 15:05:00 Outpatient X SONIA MAYBERRY [facility] JAVAD [id number] [facility] 2022-02-25 13:15:00 2022-02-25 15:05:00 Emergency Adum, Sonai Dooley [facility] 1.114 350.1.13.10 4.2.7.2.686 [id number] [id number] [facility] 2022-02-25 00:00:00 2022-02-25 00:00:00 Orders Only Doctor Unassigned, [place] [facility] 1.114 350.1.13.10 4.2.7.2.686 [id number] [id number] [facility] 2022-02-23 10:30:00 2022-02-23 11:00:00 Customer Contact Sales Associate Visit 3, [facility] 1.114 350.1.13.10 4.2.7.2.686 [id number] 104 [id number] [facility] 2022-02-23 10:30:00 2022-02-23 10:30:00 Outpatient P [facility] [id number] [facility] 2022-02-14 11:00:00 2022-02-14 11:50:02 Outpatient R ELLIOT GOULD [facility] [id number] [facility] 2022-02-14 11:00:00 2022-02-14 11:50:02 Routine Visit Elliot Gould [facility] 1.114 350.1.13.10 4.2.7.2.686 [id number] 134 [id number] [facility] 2022-02-10 13:42:29 2022-02-10 23:59:00 Outpatient R ELLIOT GOULD [facility] [id number] [facility] 2022-02-10 13:42:29 2022-02-10 23:59:00 Hospital Encounter Elliot Gould [facility] 1..114 350.1.13.10 4.2.7.2.686 [id number] [id number] [facility] 2022-02-10 13:41:56 2022-02-10 13:41:56 Hospital Encounter Elliot Gould [facility] 1.2840.114 350.1.13.10 4.2.7.2.686 [id number] [id number] [facility] 2022-02-09 00:00:00 2022-02-09 00:00:00 Case Management [facility] 1..114 350.1.13.10 4.2.7.2.686 [id number] 134 [id number] [facility] 2022-02-09 00:00:00 2022-02-09 00:00:00 Patient Secure Msg Elliot Gould [facility] NAL BUILDING 1.20.114 350.1.13.10 4.2.7.2.686 [id number] 134 [id number] [facility] 2022-02-09 00:00:00 2022-02-09 00:00:00 Orders Only Doctor Unassigned, [place] [facility] 1.2840.114 350.1.13.10 4.2.7.2.686 [id number] [facility] 2022-02-08 14:39:00 2022-02-08 22:01:00 Outpatient X SONIA MAYBERRY [facility] JAVAD [id number] [facility] 2022-02-08 14:39:00 2022-02-08 22:01:00 Emergency [place], Magalys Fregoso Vivian L [facility] 1.20.114 350.1.13.10 4.2.7.2.686 [id number] [id number] [facility] 2022-02-08 00:00:00 2022-02-08 00:00:00 Orders Only Doctor Unassigned, [place] [facility] 1.2840.114 350.1.13.10 4.2.7.2.686 [id number] [id number] [facility] 2022-02-07 12:40:00 2022-02-07 12:55:59 Outpatient R ALVERTO OLIVARES [facility] [id number] [facility] 2022-02-07 12:40:00 2022-02-07 12:55:59 Office Visit Alverto Olivares [facility] MEDICAL OFFICE BUILDING 1.2840.114 350.1.13.10 4.2.7.2.686 [id number] 092 [id number] [facility] 2022-02-03 16:20:00 2022-02-03 21:24:00 Outpatient X ELLIOT GOULD [facility] JAVAD [id number] [facility] 2022-02-03 16:20:00 2022-02-03 21:24:00 Emergency Yessi, Elliot Parikh [facility] 1.2840.114 350.1.13.10 4.2.7.2.686 [id number] [id number] [facility] 2022-02-03 00:00:00 2022-02-03 00:00:00 Orders Only Doctor Unassigned, [place] [facility] 1.2840.114 350.1.13.10 4.2.7.2.686 [id number] [facility] 2022-02-01 20:31:00 2022-02-02 14:10:00 Inpatient X NOEL COOLEY [facility] JAVAD [id number] [facility] 2022-02-01 20:31:00 2022-02-02 14:10:00 Hospital Encounter Noel Cooley [facility] 1.2840.114 350.1.13.10 4.2.7.2.686 [id number] [facility] 2022-02-02 08:30:00 2022-02-02 08:30:00 Outpatient R [facility] [id number] [facility] 2022-02-01 09:45:00 2022-02-01 10:00:00 Customer Contact Sales Associate Visit Pob, Adc Lab Main Lobo Shari [facility] 1.2.840.114 350.1.13.10 4.2.7.2.686 [id number] [facility] 2022-02-01 09:45:00 2022-02-01 09:45:00 Outpatient R LOBO [facility] [id number] [facility] 2022-02-01 00:00:00 2022-02-01 00:00:00 Case Management Shari Diamond [facility] 1.2.840.114 350.1.13.10 4.2.7.2.686 [id number] 134 [id number] [facility] 2022-02-01 00:00:00 2022-02-01 00:00:00 Patient Secure MsElliot Wild [facility] 1.2.840.114 350.1.13.10 4.2.7.2.686 [id number] 134 [id number] [facility] 2022-02-01 00:00:00 2022-02-01 00:00:00 Orders Only Doctor Unassigned, [place] [facility] 1..840.114 350.1.13.10 4.2.7.2.686 [id number] [facility] 2022-01-31 11:15:00 2022-01-31 11:57:42 Outpatient R SHARI DIAMOND [facility] [id number] [facility] 2022-01-31 11:15:00 2022-01-31 11:57:42 Routine Visit Shari Diamond [facility] 1.2840.114 350.1.13.10 4.2.7.2.686 [id number] 134 [id number] [facility] 2022-01-30 13:50:00 2022-01-30 17:35:00 Outpatient P ELLIOT GOULD [facility] JAVAD [id number] [facility] 2022-01-30 13:50:00 2022-01-30 17:35:00 Hospital Encounter Elliot Gould Gino [facility] 1.2840.114 350.1.13.10 4.2.7.2.686 [id number] [id number] [facility] 2022-01-30 13:00:00 2022-01-30 13:15:00 Nurse Visit Nurse, [facility] Lobo [facility] 1.284.114 350.1.13.10 4.2.7.2.686 [id number] 134 [id number] [facility] 2022-01-30 13:00:00 2022-01-30 13:00:00 [facility] [id number] [facility] 2022-01-30 00:00:00 2022-01-30 00:00:00 Patient Secure [place] [address] [facility] 1.2840.114 350.1.13.10 4.2.7.2.686 [id number] 134 [id number] [facility] 2022-01-30 00:00:00 2022-01-30 00:00:00 Orders Only Doctor Unassigned, [place] [facility] 1.2840.114 350.1.13.10 4.2.7.2.686 [id number] 009 [id number] [facility] 2022-01-30 00:00:2022-01-30 00:00:00 Case Management Elliot Gould [facility] BUILDING 1.84.114 350.1.13.10 4.2.7.2.686 [id number] 134 [id number] [facility] 2022-01-28 22:59:00 2022-01-28 23:50:00 Outpatient X ADUM, [facility] JAVAD [id number] [facility] 2022-01-28 22:59:00 2022-01-28 23:50:00 Emergency Adum, Sonia [facility] 1..114 350.1.13.10 4.2.7.2.686 [id number] 083 [id number] [facility] 2022-01-28 00:00:00 2022-01-28 00:00:00 Orders Only Doctor Unassigned, [place] [facility] 1..114 350.1.13.10 4.2.7.2.686 [id number] [id number] [facility] 2022-01-26 10:30:00 2022-01-26 11:30:51 Customer Contact Sales Associate Visit 3, [facility] Us Room Ran Arriaza [facility] 1.114 350.1.13.10 4.2.7.2.686 [id number] 104 [id number] [facility] 2022-01-26 10:30:00 2022-01-26 10:30:00 Outpatient P RAN ARRIAZA SHANNON [facility] [id number] [facility] 2022-01-25 08:00:00 2022-01-25 08:00:00 Outpatient R [facility] [id number] [facility] 2022-01-19 00:00:00 2022-01-19 00:00:00 Telephone Elliot Gould [facility] BUILD[facility] 1..114 350.1.13.10 4.2.7.2.686 [id number] 134 [id number] [facility] 2022-01-19 00:00:00 2022-01-19 00:00:00 Patient Secure Msg Elliot Gould [facility] BUILD[facility] 1..840.114 350.1.13.10 4.2.7.2.686 [id number] 134 [id number] [facility] 2022-01-18 08:30:00 2022-01-18 08:30:00 Outpatient R [facility] [id number] [facility] 2022-01-17 13:00:00 2022-01-17 13:50:08 Outpatient R ELLIOT GOULD [facility] [id number] [facility] 2022-01-17 13:00:00 2022-01-17 13:50:08 Routine Visit Elliot Gould [facility] 1..840.114 350.1.13.10 4.2.7.2.686 [id number] 134 [id number] [facility] 2022-01-03 09:00:00 2022-01-03 09:00:00 Outpatient R LOBO [facility] [id number] [facility] 2021-12-20 09:00:00 2021-12-20 09:16:25 Outpatient R LOBO [facility] [id number] [facility] 2021-12-20 09:00:00 2021-12-20 09:16:25 Routine Visit Lobo [facility] 1..840.114 350.1.13.10 4.2.7.2.686 [id number] 134 [id number] [facility] 2021-12-15 08:30:00 2021-12-15 09:29:43 Customer Contact Sales Associate Visit 1, [facility] 1.840.114 350.1.13.10 4.2.7.2.686 [id number] [facility] 2021-12-15 08:30:00 2021-12-15 08:30:00 Outpatient P EVER MAXWELL [facility] [id number] [facility] 2021-12-13 11:00:00 2021-12-13 11:00:00 Outpatient R ALVERTO OLIVARES [facility] [id number] [facility] 2021-11-22 11:00:00 2021-11-22 12:06:39 Outpatient R ELLIOT GOULD [facility] [id number] [facility] 2021-11-22 11:00:00 2021-11-22 12:06:39 Routine Visit GouldElliot [facility] 1.2.840.114 350.1.13.10 4.2.7.2.686 [id number] 134 [id number] [facility] 2021-11-07 08:00:00 2021-11-07 09:15:48 Customer Contact Sales Associate Visit Ultrasound, Ifeanyi-Gus Carter [facility] CONSTRUCTION SPECIALIST [facility] 1.2.840.114 350.1.13.10 4.2.7.2.686 [id number] [facility] 2021-11-07 08:00:00 2021-11-07 08:00:00 Outpatient GUS SY [facility] [id number] [facility] 2021-10-31 00:00:00 2021-10-31 00:00:00 Patient Secure Msg Elliot Gould [facility] 1.2.840.114 350.1.13.10 4.2.7.2.686 [id number] 134 [id number] [facility] 2021-10-24 15:30:00 2021-10-24 15:45:00 Customer Contact Sales Associate Visit 2, [facility] 1.2.840.114 350.1.13.10 4.2.7.2.686 [id number] [facility] 2021-10-24 15:30:00 2021-10-24 15:30:00 Outpatient R SHARI DIAMOND [facility] [id number] [facility] 2021-10-24 14:30:00 2021-10-24 15:01:58 Routine Visit Shari Diamond [facility] BUILDING 1.2.840.114 350.1.13.10 4.2.7.2.686 [id number] 134 [id number] [facility] 2021-10-24 00:00:00 2021-10-24 00:00:00 Orders Only Doctor Unassigned, [place] [facility] 1.2.840.114 350.1.13.10 4.2.7.2.686 [id number] [facility] 2021-10-11 00:00:00 2021-10-11 00:00:00 Telephone Bryanna Elliot Gino [facility] 1.2.840.114 350.1.13.10 4.2.7.2.686 [id number] 134 [id number] [facility] 2021-09-26 13:15:00 2021-09-26 13:28:48 Outpatient R BRYANNADERICKEN [facility] [id number] [facility] 2021-09-26 13:15:00 2021-09-26 13:28:48 Routine Visit Elliot Gould [facility] 1.2.840.114 350.1.13.10 4.2.7.2.686 [id number] 134 [id number] [facility] 2021-09-26 11:30:00 2021-09-26 11:45:00 Customer Contact Sales Associate Visit 2, Adc Lab Elliot Gould [facility] 1.2.840.114 350.1.13.10 4.2.7.2.686 [id number] 353 [id number] [facility] 2021-09-26 00:00:00 2021-09-26 00:00:00 Orders Only Doctor Unassigned, [place] [facility] 1.2.840.114 350.1.13.10 4.2.7.2.686 [id number] [facility] 2021-09-21 00:00:00 2021-09-21 00:00:00 Letter (Out) Lobo Shari [facility] 1.2.840.114 350.1.13.10 4.2.7.2.686 [id number] 134 [id number] [facility] 2021-09-21 00:00:00 2021-09-21 00:00:00 Patient Secure Msg Lobo Shari [facility] 1.2.840.114 350.1.13.10 4.2.7.2.686 [id number] 134 [id number] [facility] 2021-09-12 11:30:00 2021-09-12 11:30:00 Outpatient R [facility] [id number] [facility] 2021-08-29 14:00:00 2021-08-29 16:02:24 Outpatient R LOBO SHARI [facility] [id number] [facility] 2021-08-29 14:00:00 2021-08-29 14:15:00 Routine Visit Lobo Shari [facility] BUILDING 1.2.840.114 350.1.13.10 4.2.7.2.686 [id number] 134 [id number] [facility] 2021-08-07 12:00:00 2021-08-07 12:15:00 Customer Contact Sales Associate Visit Pob, Adc Lab Main Elliot Gould [facility] BU[facility] 1.840.114 350.1.13.10 4.2.7.2.686 [id number] [facility] 2021-08-07 12:00:00 2021-08-07 12:00:00 Outpatient R ELLIOT GOULD [facility] [id number] [facility] 2021-08-02 13:00:00 2021-08-02 13:00:00 Outpatient R [facility] [id number] [facility] 2021-08-01 13:00:00 2021-08-01 13:27:48 Outpatient R ELLIOT GOULD [facility] [id number] [facility] 2021-08-01 13:00:00 2021-08-01 13:27:48 Routine Visit Elliot Gould [facility] BUILDING 1.840.114 350.1.13.10 4.2.7.2.686 [id number] 134 [id number] [facility] 2021-07-31 14:06:26 2021-07-31 23:59:00 Outpatient R ELLIOT GOULD [facility] [id number] [facility] 2021-07-31 14:06:26 2021-07-31 23:59:00 Hospital Encounter Elliot Gould [facility] 1.84.114 350.1.13.10 4.2.7.2.686 [id number] [facility] 2021-07-24 13:15:00 2021-07-24 13:30:00 Customer Contact Sales Associate Visit 2, Adc Lab Elliot Gould [facility] BUILD[facility] 1..840.114 350.1.13.10 4.2.7.2.686 [id number] 353 [id number] [facility] 2021-07-24 13:15:00 2021-07-24 13:15:00 Outpatient R ELLIOT GOULD [facility] [id number] [facility] 2021-07-24 00:00:00 2021-07-24 00:00:00 Telephone Elliot Gould [facility] 1.2.840.114 350.1.13.10 4.2.7.2.686 [id number] 134 [id number] [facility] 2021-07-24 00:00:00 2021-07-24 00:00:00 Case Management Elliot Gould [facility] BUILDING 1.2.840.114 350.1.13.10 4.2.7.2.686 [id number] 134 [id number] [facility] 2021-07-21 13:00:00 2021-07-21 13:15:00 Customer Contact Sales Associate Visit 2, Adc Lab Elliot Gould [facility] BUILDING 1.2.840.114 350.1.13.10 4.2.7.2.686 [id number] [facility] 2021-07-21 13:00:00 2021-07-21 13:00:00 Outpatient R ELLIOT GOULD [facility] [id number] [facility] 2021-07-19 15:30:00 2021-07-19 15:45:00 Customer Contact Sales Associate Visit 2, Adc Lab Elliot Gould [facility] BUILDING 1.2.840.114 350.1.13.10 4.2.7.2.686 [id number] 353 [id number] [facility] 2021-07-19 14:30:00 2021-07-19 15:11:33 Outpatient R ELLIOT GOULD [facility] [id number] [facility] 2021-07-19 14:30:00 2021-07-19 15:11:33 Initial Visit Elliot Gould [facility] BUILDING 1.2.840.114 350.1.13.10 4.2.7.2.686 [id number] 134 [id number] [facility] 2021-07-19 00:00:00 2021-07-19 00:00:00 Orders Only Doctor Unassigned, [place] [facility] 1.20.114 350.1.13.10 4.2.7.2.686 [id number] [facility] 2021-05-12 00:00:00 2021-05-12 00:00:00 Patient Secure Msg Lobo Shari [facility] 1..114 350.1.13.10 4.2.7.2.686 [id number] 134 [id number] [facility] 2021-03-03 13:00:00 2021-03-03 13:00:00 [id number] 2021-01-31 13:00:00 2021-01-31 13:00:00 [facility] [id number] [facility] 2021-01-22 00:00:00 2021-01-22 00:00:00 Patient Secure Msg Doctor Unassigned, [place] [facility] 1.2.114 350.1.13.10 4.2.7.2.686 [id number] [facility] 2021-01-20 00:00:00 2021-01-20 00:00:00 Patient Secure Msg Doctor Unassigned, [place] [facility] 1.2840.114 350.1.13.10 4.2.7.2.686 [id number] [id number] [facility] 2021-01-18 00:00:00 2021-01-18 00:00:00 Patient Secure Msg Doctor Unassigned, [place] [facility] 1.20.114 350.1.13.10 4.2.7.2.686 [id number] [facility] 2021-01-17 00:00:00 2021-01-17 00:00:00 Transition of Care Adele Gonzalez 1.2.840.114 350.1.13.10 4.2.7.2.686 [id number] [facility] 2021-01-12 20:54:00 2021-01-15 15:00:00 Hospital Encounter Emanuel Roberts [facility] 1.2.840.114 350.1.13.10 4.2.7.2.686 [id number] [id number] [facility] 2021-01-12 14:58:23 2021-01-12 15:58:23 Office Visit Alverto Olivares [facility] Neurology Continuity 1.2.840.1 73808.1.1 3.104.2.7 .3.378846 .8 [id number] [facility] 2021-01-12 15:30:00 2021-01-12 15:30:00 Outpatient ALVERTO TEJADA [facility] [id number] [facility] 2021-01-12 00:00:00 2021-01-12 00:00:00 Travel 1.2.840.1 75337.1.1 3.104.2.7 .3.962949 .8 1.2.840.114 350.1.13.10 4.2.7.3.698 [id number] [facility] 2021-01-12 00:00:00 2021-01-12 00:00:00 Telephone Clinic, [facility] Neurology Continuity [facility] 1.2.840.114 350.1.13.10 4.2.7.2.686 [id number] [facility] 2021-01-09 13:30:00 2021-01-09 13:30:00 Outpatient ALPHONSO ALFREDO [facility] [id number] [facility] 2020-12-29 02:14:00 2020-12-29 02:47:00 Emergency Coleen Miller [facility] 1.2.840.114 350.1.13.10 4.2.7.2.686 [id number] [facility] 2020-12-29 02:14:00 2020-12-29 02:47:00 Emergency Coleen Miller 1.2.840.1 88135.1.1 3.104.2.7 .3.298021 .8 [id number] [facility] 2020-12-29 00:00:00 2020-12-29 00:00:00 Travel 1.2.840.1 25652.1.1 3.104.2.7 .3.953719 .8 1.2.840.114 350.1.13.10 4.2.7.3.698 084.8 [id number] [facility] 2020-12-23 10:00:00 2020-12-23 10:00:00 Outpatient LISA ROSALES [facility] [id number] [facility] 2020-12-19 00:00:00 2020-12-19 00:00:00 Outpatient COSME BOYER [facility] [id number] [facility] 2020-12-13 00:00:00 2020-12-13 00:00:00 Travel 1.2.840.1 08157.1.1 3.104.2.7 .3.150796 .8 1.2.840.114 350.1.13.10 4.2.7.3.698 084.8 [id number] [facility] 2020-12-12 14:30:00 2020-12-12 14:30:00 Outpatient SHARI IZAGUIRRE [facility] [id number] [facility] 2020-12-02 09:17:22 2020-12-02 09:47:22 Office Visit Cosme Brennan [facility] RANDEEAaliyah NORIEGA 1.2.840.114 350.1.13.10 4.2.7.2.686 [id number] [facility] 2020-12-02 09:17:22 2020-12-02 09:47:22 Office Visit Cosme Brennan 1.2.840.1 84242.1.1 3.104.2.7 .3.329497 .8 [id number] [facility] 2020-12-02 09:30:00 2020-12-02 09:30:00 Outpatient R COSME BRNENAN [facility] [id number] [facility] 2020-12-02 00:00:00 2020-12-02 00:00:00 Travel 1.2.840.1 26807.1.1 3.104.2.7 .3.829352 .8 1.2.840.114 350.1.13.10 4.2.7.3.698 084.8 [id number] [facility] 2020-11-21 23:30:00 2020-11-22 01:52:00 Emergency Melissa Sams [facility] 1.2.840.114 350.1.13.10 4.2.7.2.686 [id number] [id number] [facility] 2020-11-21 23:30:00 2020-11-22 01:52:00 Emergency Melissa Sams 1.2.840.1 39892.1.1 3.104.2.7 .3.369810 .8 [id number] [facility] 2020-11-22 00:00:00 2020-11-22 00:00:00 Patient Secure Msg Doctor Unassigned, [place] [facility] 1.2.840.114 350.1.13.10 4.2.7.2.686 [id number] [facility] 2020-11-21 00:00:00 2020-11-21 00:00:00 Orders Only Doctor Unassigned, [place] [facility] 1.2.840.114 350.1.13.10 4.2.7.2.686 [id number] [facility] 2020-11-21 00:00:00 2020-11-21 00:00:00 Travel 1.2.840.1 23431.1.1 3.104.2.7 .3.539747 .8 1.2.840.114 350.1.13.10 4.2.7.3.698 084.8 [id number] [facility] 2020-11-21 00:00:00 2020-11-21 00:00:00 Orders Only Doctor Unassigned, [place] 1.2.840.1 05674.1.1 3.104.2.7 .3.743294 .8 [id number] [facility] 2020-11-08 08:00:00 2020-11-08 08:00:00 Outpatient SHARI IZAGUIRRE [facility] [id number] [facility] 2020-11-07 12:50:14 2020-11-07 14:30:12 Office Visit Shari Diamond 1.2.840.1 46734.1.1 3.104.2.7 .3.878161 .8 [id number] [facility] 2020-11-07 12:50:14 2020-11-07 13:20:14 Office Visit Shari Diamond [facility] 1.2.840.114 350.1.13.10 4.2.7.2.686 [id number] 134 [id number] [facility] 2020-11-07 13:00:00 2020-11-07 13:00:00 Outpatient R SHARI DIAMOND [facility] [id number] [facility] 2020-11-07 00:00:00 2020-11-07 00:00:00 Travel 1.2.840.1 84287.1.1 3.104.2.7 .3.408244 .8 1.2.840.114 350.1.13.10 4.2.7.3.698 084.8 [id number] [facility] 2020-11-03 03:41:00 2020-11-03 03:41:00 Outpatient FRANKIE_JEAN PAUL YE [facility] [id number] Ulisses box [facility] Program 2020-10-27 01:43:00 2020-10-27 03:43:00 Emergency Nkechi Olivares Phillip [facility] 1.2.840.114 350.1.13.10 4.2.7.2.686 [id number] 084 [id number] [facility] 2020-10-27 01:43:00 2020-10-27 03:43:00 Emergency Nkechi Olivares Phillip 1.2.840.1 01947.1.1 3.104.2.7 .3.272489 .8 [id number] [facility] 2020-10-27 00:00:00 2020-10-27 00:00:00 Travel 1.2.840.1 23749.1.1 3.104.2.7 .3.960516 .8 1.2.840.114 350.1.13.10 4.2.7.3.698 084.8 [id number] [facility] 2020-10-25 17:16:00 2020-10-25 20:33:00 Emergency Nkechi Olivares [facility] 1.2.840.114 350.1.13.10 4.2.7.2.686 [id number] 084 [id number] [facility] 2020-10-25 17:16:00 2020-10-25 20:33:00 Emergency Nkechi Olivares 1.2.840.1 27176.1.1 3.104.2.7 .3.163021 .8 [id number] [facility] 2020-10-25 00:00:00 2020-10-25 00:00:00 Travel 1.2.840.1 67854.1.1 3.104.2.7 .3.899016 .8 1.2.840.114 350.1.13.10 4.2.7.3.698 084.8 [id number] [facility] 2020-09-28 14:26:34 2020-09-28 14:46:15 Nurse Visit [facility], [facility] 1..840.114 350.1.13.10 4.2.7.2.686 [id number] 134 [id number] [facility] 2020-09-28 14:30:00 2020-09-28 14:30:00 Outpatient R [facility] [id number] [facility] 2020-09-28 00:00:00 2020-09-28 00:00:00 Patient Secure Msg Lobo Shari [facility] 1..840.114 350.1.13.10 4.2.7.2.686 [id number] 134 [id number] [facility] 2020-08-23 14:30:00 2020-08-23 14:30:00 Outpatient R LOBO [facility] [id number] [facility] 2020-08-17 00:00:00 2020-08-17 00:00:00 Patient Secure Msg Lobo [facility] 1.2.840.114 350.1.13.10 4.2.7.2.686 [id number] 134 [id number] [facility] 2020-08-16 00:00:00 2020-08-16 00:00:00 Patient Secure Msg [facility]ari [facility] 1.2.840.114 350.1.13.10 4.2.7.2.686 [id number] 134 [id number] [facility] 2020-08-15 00:00:00 2020-08-15 00:00:00 Case Management Shari Diamond [facility] 1.2.840.114 350.1.13.10 4.2.7.2.686 [id number] 134 [id number] [facility] 2020-08-12 00:00:00 2020-08-12 00:00:00 Telephone Shari Diamond [facility] Building 1.2.840.114 350.1.13.10 4.2.7.2.686 [id number] 134 [id number] [facility] 2020-08-12 00:00:00 2020-08-12 00:00:00 Patient Secure Msg Shari Diamond [facility]ILD[facility] 1.2.840.114 350.1.13.10 4.2.7.2.686 [id number] 134 [id number] [facility] 2020-08-11 00:00:00 2020-08-11 00:00:00 Case Management Shari Diamond [facility] 1.2.840.114 350.1.13.10 4.2.7.2.686 [id number] 134 [id number] [facility] 2020-08-11 00:00:00 2020-08-11 00:00:00 Telephone Shari Diamond [facility] 1.2.840.114 350.1.13.10 4.2.7.2.686 [id number] 134 [id number] [facility] 2020-08-10 14:26:30 2020-08-10 15:20:57 Office Visit Shari Diamond [facility] Building 1.840.114 350.1.13.10 4.2.7.2.686 [id number] 134 [id number] [facility] 2020-08-10 14:45:00 2020-08-10 14:45:00 Outpatient SHARI IZAGUIRRE [facility] [id number] [facility] 2020-08-10 00:00:00 2020-08-10 00:00:00 Orders Only Doctor Unassigned, [place] [facility] 1.84.114 350.1.13.10 4.2.7.2.686 [id number] [facility] 2020-07-12 00:00:00 2020-07-12 00:00:00 Patient Outreach Macario Arriaza [facility] 1.840.114 350.1.13.10 4.2.7.2.686 [id number] [facility] 2020-04-06 10:30:00 2020-04-06 10:30:00 Outpatient Reji DIAMONDSHARI [facility] [id number] [facility] 2020-03-25 13:00:00 2020-03-25 13:00:00 [facility] [id number] [facility] 2020-02-19 09:30:00 2020-02-19 09:30:00 Outpatient TAYLOR WOOD [facility] [id number] [facility] 2019-12-04 09:00:00 2019-12-04 09:00:00 Outpatient Reji DIAMOND [facility] [id number] [facility] 2019-09-24 14:37:46 2019-09-24 14:52:46 Routine Visit Shari Diamond [facility] Isabel [facility]gs [facility] Building 1..840.114 350.1.13.10 4.2.7.2.686 [id number] 134 [id number] 2019-09-24 14:37:46 2019-09-24 14:52:46 Routine Visit Shari Diamond [facility] Building 1.2.840.114 350.1.13.10 4.2.7.2.686 [id number] 134 [id number] [facility] 2019-09-24 14:45:00 2019-09-24 14:45:00 Outpatient R SHARI DIAMOND [facility] [id number] [facility] 2019-08-27 04:09:00 2019-08-28 21:10:00 Hospital Encounter Elliot Gould [facility] 1.2.840.114 350.1.13.10 4.2.7.2.686 [id number] 083 [id number] 2019-08-27 04:09:00 2019-08-28 21:10:00 Hospital Encounter Elliot Gould [facility] 1.2.840.114 350.1.13.10 4.2.7.2.686 [id number] 083 [id number] [facility] 2019-08-26 10:10:09 2019-08-26 10:37:20 Routine Visit Elliot Gould [facility] Building 1.2.840.114 350.1.13.10 4.2.7.2.686 [id number] 134 [id number] [facility] 2019-08-26 10:15:00 2019-08-26 10:15:00 [facility] [id number] 2019-08-26 09:23:44 2019-08-26 09:30:04 Laboratory Only Only, Adc Test Elliot Gould [facility] Building 1.2.840.114 350.1.13.10 4.2.7.2.686 [id number] [facility] 2019-08-26 09:23:44 2019-08-26 09:30:04 Laboratory Only Only, Adc Test [facility] Building 1.2.840.114 350.1.13.10 4.2.7.2.686 [id number] 353 [id number] 2019-08-25 00:00:00 2019-08-25 00:00:00 Patient Secure Msg Elliot Gould [facility] Building 1.2.840.114 350.1.13.10 4.2.7.2.686 [id number] 134 [id number] [facility] 2019-08-25 00:00:00 2019-08-25 00:00:00 Patient Secure Msg Elliot Gould [facility] Building 1.2.840.114 350.1.13.10 4.2.7.2.686 [id number] 134 [id number] [facility] 2019-08-25 00:00:00 2019-08-25 00:00:00 Patient Secure Msg Elliot Gould [facility] Building 1.2.840.114 350.1.13.10 4.2.7.2.686 [id number] 134 [id number] 2019-08-25 00:00:00 2019-08-25 00:00:00 Patient Secure Msg Elliot Gould [facility] nal Building 1.2.840.114 350.1.13.10 4.2.7.2.686 [id number] 134 [id number] 2019-08-24 00:00:00 2019-08-24 00:00:00 Patient Secure Msg [facility] 1.2.840.114 350.1.13.10 4.2.7.2.686 [id number] 134 [id number] [facility] 2019-08-24 00:00:00 2019-08-24 00:00:00 Patient Secure Msg Elliot Gould [facility] Building 1.2.840.114 350.1.13.10 4.2.7.2.686 [id number] 134 [id number] [facility] 2019-08-24 00:00:00 2019-08-24 00:00:00 Patient Secure Msg Elliot Gould [facility] 1.2.840.114 350.1.13.10 4.2.7.2.686 [id number] 134 [id number] 2019-08-24 00:00:00 2019-08-24 00:00:00 Patient Secure Msg Elliot Gould [facility] nal Building 1.2.840.114 350.1.13.10 4.2.7.2.686 [id number] 134 [id number] 2019-08-20 00:00:00 2019-08-20 00:00:00 Telephone Elliot Gould [facility] nal Building 1.2.840.114 350.1.13.10 4.2.7.2.686 [id number] 134 [id number] [facility] 2019-08-20 00:00:00 2019-08-20 00:00:00 Case Management Shari Diamond [facility] Building 1.2.840.114 350.1.13.10 4.2.7.2.686 [id number] 134 [id number] [facility] 2019-08-20 00:00:00 2019-08-20 00:00:00 Patient Secure Msg Elliot Gould [facility] nal Building 1.2.840.114 350.1.13.10 4.2.7.2.686 [id number] 134 [id number] [facility] 2019-08-20 00:00:00 2019-08-20 00:00:00 Patient Secure Msg Elliot Gould [facility] nal Building 1.2.840.114 350.1.13.10 4.2.7.2.686 [id number] 134 [id number] 2019-08-19 16:00:00 2019-08-19 16:00:00 Outpatient R ELLIOT GOULD [facility] [id number] [facility] 2019-08-19 09:52:56 2019-08-19 10:34:36 [facility]ine [facility] 1.2.840.114 350.1.13.10 4.2.7.2.686 [id number] 134 [id number] [facility] 2019-08-17 16:00:00 2019-08-17 16:00:00 Out[facility] [id number] [facility] 2019-08-13 16:05:07 2019-08-13 17:19:59 Routine Visit Elliot Gould [facility] Building 1.2.840.114 350.1.13.10 4.2.7.2.686 [id number] 134 [id number] [facility] 2019-08-13 16:00:00 2019-08-13 16:00:00 Outpatient R ELLIOT GOULD [facility] [id number] [facility] 2019-08-07 09:30:00 2019-08-07 09:30:00 Outpatient [facility] [id number] [facility] 2019-08-06 10:44:08 2019-08-06 14:10:20 Routine Visit Lobo Shari [facility] Building 1.2.840.114 350.1.13.10 4.2.7.2.686 [id number] 134 [id number] [facility] 2019-08-06 11:15:00 2019-08-06 11:15:00 Outpatient R [facility]EE [facility] [id number] [facility] 2019-08-06 00:00:00 2019-08-06 00:00:00 Patient Secure Msg Elliot Gould [facility] Building 1.2.840.114 350.1.13.10 4.2.7.2.686 [id number] 134 [id number] [facility] 2019-08-06 00:00:00 2019-08-06 00:00:00 Patient Secure Msg Elliot Gould [facility] Building 1.2.840.114 350.1.13.10 4.2.7.2.686 [id number] 134 [id number] 2019-08-03 17:06:00 2019-08-03 20:15:00 Hospital Encounter Elliot Gould [facility] 1.2.840.114 350.1.13.10 4.2.7.2.686 [id number] 083 [id number] [facility] 2019-08-03 00:00:00 2019-08-03 00:00:00 Telephone Elliot Gould [facility] Building 1.2.840.114 350.1.13.10 4.2.7.2.686 [id number] 134 [id number] [facility] 2019-08-03 00:00:00 2019-08-03 00:00:00 Patient Secure Msg Elliot Gould [facility] Building 1.2.840.114 350.1.13.10 4.2.7.2.686 [id number] 134 [id number] [facility] 2019-08-03 00:00:00 2019-08-03 00:00:00 Patient Secure Msg Elliot Gould [facility] Building 1.2.840.114 350.1.13.10 4.2.7.2.686 [id number] 134 [id number] 2019-07-21 16:00:00 2019-07-21 16:00:00 Outpatient R ELLIOT GOULD [facility] [id number] [facility] 2019-07-21 08:29:12 2019-07-21 15:14:02 Telemedici ne Visit Elliot Gould [facility] Professio nal Building 1.2.840.114 350.1.13.10 4.2.7.2.686 [id number] 134 [id number] [facility] 2019-07-20 00:00:00 2019-07-20 00:00:00 Patient Secure Msg Elliot Gould [facility] Professio nal Building 1.2.840.114 350.1.13.10 4.2.7.2.686 [id number] 134 [id number] [facility] 2019-07-20 00:00:00 2019-07-20 00:00:00 Patient Secure Msg Elliot Gould [facility] Professio nal Building 1.2.840.114 350.1.13.10 4.2.7.2.686 [id number] 134 [id number] [facility] 2019-07-20 00:00:00 2019-07-20 00:00:00 Patient Secure Msg Elliot Gould [facility] Professio nal Building 1.2840.114 350.1.13.10 4.2.7.2.686 [id number] 134 [id number] [facility] 2019-07-17 16:49:00 2019-07-17 19:25:00 Outpatient P ELLIOT GOULD NVCHARY JAVAD [id number] [facility] 2019-07-17 16:49:00 2019-07-17 19:25:00 Hospital Encounter Elliot Gould [facility] 1.2.840.114 350.1.13.10 4.2.7.2.686 [id number] 083 [id number] [facility] 2019-07-17 00:00:00 2019-07-17 00:00:00 Patient Secure Msg Elliot Gould [facility] Professio nal Building 1.2.840.114 350.1.13.10 4.2.7.2.686 [id number] 134 [id number] [facility] 2019-07-17 00:00:00 2019-07-17 00:00:00 Patient Secure Msg Elliot Gould [facility] 1.2.840.114 350.1.13.10 4.2.7.2.686 [id number] 134 [id number] [facility] 2019-07-16 00:00:00 2019-07-16 00:00:00 Patient Secure Msg Elliot Gould [facility] Building 1.2.840.114 350.1.13.10 4.2.7.2.686 [id number] 134 [id number] [facility] 2019-07-06 11:15:00 2019-07-06 11:15:00 Outpatient R LOBO SHARI [facility] [id number] [facility] 2019-07-06 10:41:18 2019-07-06 10:56:18 Routine Visit Lobo Shari [facility] Building 1.2.840.114 350.1.13.10 4.2.7.2.686 [id number] 134 [id number] [facility] 2019-06-30 00:00:00 2019-06-30 00:00:00 Patient Secure Msg Elliot Gould [facility] Building 1..840.114 350.1.13.10 4.2.7.2.686 [id number] 134 [id number] [facility] 2019-06-30 00:00:00 2019-06-30 00:00:00 Patient Secure Msg Elliot Gould [facility] Building 1.2.840.114 350.1.13.10 4.2.7.2.686 [id number] 134 [id number] [facility] 2019-06-29 15:38:14 2019-06-29 16:52:02 Routine Visit Elliot Gould [facility] Building 1.2.840.114 350.1.13.10 4.2.7.2.686 [id number] 134 [id number] [facility] 2019-06-29 15:45:00 2019-06-29 15:45:00 Outpatient ELLIOT MOJICA [facility] [id number] [facility] 2019-06-29 13:15:00 2019-06-29 13:15:00 Outpatient R BRYANNA ELLIOT [facility] [id number] [facility] 2019-06-26 08:39:29 2019-06-26 08:54:29 Customer Contact Sales Associate Visit 2, Adc Lab Lobo [facility] Building 1.840.114 350.1.13.10 4.2.7.2.686 [id number] 353 [id number] [facility] 2019-06-26 08:45:00 2019-06-26 08:45:00 Outpatient R LOBO [facility] [id number] [facility] 2019-06-26 07:58:11 2019-06-26 08:35:45 Routine Visit Lobo Shari [facility] Building 1.840.114 350.1.13.10 4.2.7.2.686 [id number] 134 [id number] [facility] 2019-06-26 00:00:00 2019-06-26 00:00:00 Orders Only Doctor Unassigned, [place] [facility] 1.840.114 350.1.13.10 4.2.7.2.686 [id number] 009 [id number] [facility] 2019-06-25 00:00:00 2019-06-25 00:00:00 Patient Secure Elliot Harrison [facility] Building 1..840.114 350.1.13.10 4.2.7.2.686 [id number] 134 [id number] [facility] 2019-06-25 00:00:00 2019-06-25 00:00:00 Patient Secure Elliot Harrison [facility] 1.2.840.114 350.1.13.10 4.2.7.2.686 [id number] 134 [id number] [facility] 2019-06-18 00:00:00 2019-06-18 00:00:00 Patient Secure Elliot Harrison [facility] Building 1.2.840.114 350.1.13.10 4.2.7.2.686 [id number] 134 [id number] [facility] 2019-06-01 14:22:27 2019-06-01 14:37:27 Routine Visit Shari Diamond [facility] 1.2.840.114 350.1.13.10 4.2.7.2.686 [id number] 134 [id number] [facility] 2019-05-29 23:53:41 2019-05-30 02:39:00 Emergency Saida Laguna [facility] 1.2.840.114 350.1.13.10 4.2.7.2.686 [id number] 084 [id number] [facility] 2019-05-29 00:00:00 2019-05-29 00:00:00 Orders Only Doctor Unassigned, [place] [facility] 1.2.840.114 350.1.13.10 4.2.7.2.686 [id number] 009 [id number] [facility] 2019-01-06 15:20:13 2019-01-06 16:47:07 Initial Visit Shari Diamond [facility] 1.2.840.114 350.1.13.10 4.2.7.2.686 [id number] 134 [id number] [facility] 2019-01-06 00:00:00 2019-01-06 00:00:00 Orders Only Doctor Unassigned, [place] [facility] 1.2.840.114 350.1.13.10 4.2.7.2.686 [id number] 009 [id number] [facility] Results Test Description Test Time Test Comments Results Result Co mments Source [facility] Urine Manually [id number] 05:54:36* Test Item Value Reference Range Interpretation Comme nts POC U Preg (test code = 4924063787) Negative POC Internal QC (test code = 1481866670) Pass [facility] hCG Qualitative [id number] 08:38:58* Test Item Value Reference Range Interpretation Comme nts U Preg Kit Lot (test code = 4904487062) U Preg Kit Exp (test code = 5760166719) 06/22/2025 U Preg IC (test code = 4121632706) Acceptable U Preg (test code = 0198427163) Negative Negative [facility] [id number] 01:59:00* Test Item Value Reference Range Interpretation Comme nts POCT PREG (test code = 1605) Negative On board controls acceptable with C Line (test code = 3574) Yes POCT PREG LOT # (test code = 3575) [id number] POCT PREG TEST DATE ( test code = 3576) 2024-08-29 Lab Interpretation (test cod e = 40020-2) Normal [facility] R[facility] MICR CULT IF [id number] 23:56:00* Test Item Value Reference Range Interpretation Comme nts UA COLOR (test code = COLU) YELLOW YEL/STRAW UA APPEARANCE (test code = APPU) CLEAR CLEAR UA GLUCOSE DIPSTICK (test co de = DGLUU) NEGATIVE NEGATIVE UA BILIRUBIN DIPSTICK (test code = BILU) NEGATIVE NEGATIVE UA KETONE DIPSTICK (test cod e = KETU) NEGATIVE NEGATIVE UA SPECIFIC GRAVITY (test co de = SGU) 1.009 1.005-1.030 N UA BLOOD DIPSTICK (test code = NANCI) NEGATIVE NEGATIVE UA PH DIPSTICK (test code = STEPHANIE) 5.0 5.0-7.0 N UA PROTEIN DIPSTICK (test co de = PROU) NEGATIVE NEGATIVE UA UROBILINIOGEN DIPSTICK (t est code = URO) 0.2 mg/dL 0.2-1.0 UA NITRITE DIPSTICK (test co de = RAMIREZ) NEGATIVE NEGATIVE UA LEUKOCYTE ESTERASE DIPSTI CK (test code = LEUU) NEGATIVE NEGATIVE UA WBC (test code = WBCU) 0-3 WBC/HPF 0-3 UA RBC (test code = RBCU) 0-3 RBC/HPF 0-3 UA WBC NO REFLEX (test code = WBCUCL) 0-3 WBC/HPF 0-3 UA BACTERIA (test code = BACU) 1+ /HPF NONE SEEN A UA SQUAMOUS CELLS (test code = SQU) 0-5 /HPF NONE SEEN UA MUCUS (test code = MUCU) TRACE /LPF NONE SEEN Indication for culture: RiskForSepsis-no oth srcSpecimen Description: CLEAN CATCHCBC W/AUTO [id number] 23:07:00* Test Item Value Reference Range Interpretation [...] ED, CONSISTENT WITH AUTO DIFF. BASIC METABOLIC [id number] 23:01:00* Test Item Value Reference Range Interpretation [...] calculation forGFR is based on the CKD-EPI (2020) calculation. This formulais race indifferent and is the recommended formula for GFRby the National Kidney Foundation for Adults.The GFR will not calculate if the sex is unknown or if thepatient's age is <18 years. CREATININE (test code = CREAT) 0.7 mg/dL 0.6-1.3 N CALCIUM (test code = CA) 9.0 mg/dL 8.0-10.5 N TROP-I HIGH [id number] 23:01:00* Test Item Value Reference Range Interpretation [...] URL. These results were obtained using Siemens AtellQubell IM TnIHreagent. Results from different methodologies should not becompared to one another as quantitative results and URLs mayvary by method. Transthoracic echo (TTE)2023-09-04 23:59:40* Test Item Value Reference Range Interpretation Comme nts Height (test code = 6260238063) 65 in Weight (test code = 8853590417) 226 lbs Systolic BP (test code = 8129566178) 122 mmHg Diastolic BP (test code = 3853195652) 66 mmHg Heart Rate (test code = 7717021887) 73 bpm BSA (test code = 5202555262) 2.08 m2 Ao root diam (test code = 9246862175) 2.80 cm Aortic root (test code = 1832661148) 2.8 cm Ao root annulus (test code = 3806964042) 2.8 cm LVOT diameter (test code = 3405308186) 1.81 cm LVOT area (test code = 3080399759) 2.60 cm2 LA size (test code = 8960904055) 3.3 cm LVIDD (test code = 1531493636) 4.00 cm Left Ventricular End Diastolic Volume by Teichholz Method (test code = 4090061) 71.4 mL IVS (test code = 2223054060) 1.08 cm Interventricular Septum Diastolic Thickness by 2D (test code = 4207588) 1.08 cm LVPWD (test code = 5492172400) 1.09 cm PW (test code = 1295713811) 1.09 cm 0.6-1.1 EF(Teich) (test code = 7772280345) 68.20 % LVIDS (test code = 3508583865) 2.50 cm Left Ventricular End Systolic Volume by Teichholz Method (test code = 1278358) 22.7 mL FS (test code = 1146876070) 38 % EF - 2D (test code = 03513290) 68.20 % Pulmonic Regurgitant End Max Velocity (test code = 7756486268) 110.7 cm/s LAV(MOD-sp4) (test code = 4190235705) 52.90 mL E wave decelartion time (test code = 5417792215) 0.11 s MV stenosis pressure 1/2 time (test code = 8186171515) 32.0 ms MV Peak A Andreia (test code = 1397772839) 54.5 cm/s MV Peak E Andreia (test code = 2764721405) 76.0 cm/s E/A ratio (test code = 8147335580) 1.39 ratio MV Prop V (test code = 6702796608) 158.40 cm/s MV E/e' septal (test code = 0408529702) 18.7 cm/s Tapse (test code = 4583028161) 2.6 cm LVOT stroke volume (test code = 2103125455) 62.20 cm3 LVOT peak andreia (test code = 1997669663) 135.2 cm/s LVOT mn grad (test code = 3314680443) 3.3 mmHg AV LVOT peak gradient (test code = 7746665003) 7.3 mmHg LVOT peak VTI (test code = 6628763709) 24.1 cm LV V1 mean (test code = 2572171080) 85.40 cm/s Aortic valve mean velocity (test code = 3369620702) 103.9 cm/s Ao peak andreia (test code = 2888921744) 150.1 cm/s Ao VTI (test code = 3696984985) 29.6 cm AV area by cont VTI (test code = 6855179957) 2.1 cm2 AV area peak andreia (test code = 4789087134) 2.3 cm2 Ao max PG (test code = 3208407980) 9.00 mm[Hg] AV peak gradient (test code = 4173261753) 9.0 mmHg AV valve area (test code = 1552594782) 2.10 cm2 AV mean gradient (test code = 5799635556) 4.7 mmHg Radiology Study observation (narrative) (test code = 81839-2) ZAYRA (test code = ZAYRA) ?Left?Ventricle: Left [...] and spectral Doppler. Saline [facility] [id number] 16:59:00* Test Item Value Reference Range Interpretation [...] = 3257) 250 Negative - [facility] [id number] 16:59:00* Test Item Value Reference Range Interpretation [...] = 3257) 250 Negative - [facility] [facility] [id number] 23:16:34EXAM: CT HEAD WO CONTRAST HISTORY: Transient [...] clear. Thecalvarium and central skull base are unremarkable.[facility] WITH [id number] 22:07:24* Test Item Value Reference Range Interpretation [...] 33.1 g/dL 31.6-35.1 RDW-SD (test code = 44456-3) 44.1 fL 39.0-49.9 RDW-CV (test code = 788-0) 13.9 % 12.0-15.5 PLT (test code = 777-3) 288 166-358 MPV (test code = 25735-4) 9.7 fL 9.5-12.9 NRBC/100 WBC (test code = 5270305219) 0.0 0.0-10.0 NRBC x10^3 (test code = 6279288073) See_Comment [Automated messa ge] The system which generated this result transmitted reference range: 10*3/?L. The reference range was not used to interpret this result as normal/abnormal. GRAN MAT (NEUT) % (test code = 770-8) 52.1 % IMM GRAN % (test code = 3825679638) 0.30 % LYMPH % (test code = 736-9) 38.0 % MONO % (test code = 5905-5) 7.1 % EOS % (test code = 713-8) 2.1 % BASO % (test code = 706-2) 0.4 % GRAN MAT x10^3(ANC) (test code = 4701888442) 4.70 10*3/uL 1.88-7.09 IMM GRAN x10^3 (test code = 9531582644) 0.03 10*3/uL 0.00-0.06 LYMPH x10^3 (test code = 731-0) 3.43 10*3/uL 1.32-3.29 H MONO x10^3 (test code = 742-7) 0.64 10*3/uL 0.33-0.92 EOS x10^3 (test code = 711-2) 0.19 10*3/uL 0.03-0.39 BASO x10^3 (test code = 704-7) 0.04 10*3/uL 0.01-0.07 Lab Interpretation (test code = 51217-8) [facility]OL[facility] (54895)2023-07-03 22:06:02* Test Item Value Reference Range Interpretation Comme nts NA (test code = 1168623517) 139 mmol/L 135-145 K (test code = 3548508279) 4.0 mmol/L 3.5-5.0 CL (test code = 4668641641) 106 mmol/L 98-108 CO2 TOTAL (test code = 1276158220) 27 mmol/L 23-31 AGAP (test code = 4756331379) 6 2-16 BUN (test code = 9072810673) 9 mg/dL 7-23 GLUCOSE (test code = 4931096804) 91 mg/dL 70-110 CREATININE (test code = 2160-0) 0.58 mg/dL 0.50-1.04 TOTAL BILI (test code = 7421917898) 1.3 mg/dL 0.1-1.1 H CALCIUM (test code = 3909660423) 9.3 mg/dL 8.6-10.6 T PROTEIN (test code = 8430612069) 8.1 g/dL 6.3-8.2 ALBUMIN (test code = 3908216793) 4.5 g/dL 3.5-5.0 ALK PHOS (test code = 8031811754) 85 U/L 34-122 ALTv (test code = 1742-6) 12 U/L 5-35 AST(SGOT) (test code = 4980030453) 20 U/L 13-40 eGFR (test code = 99010-1) 128.2 mL/min/1.73m2 CKD-EPI eGFR (2020). Assuming creatinine has been stable day-to-day for at least three months, the eGFR indicates Category G1 (>= 90 mL/min/1.73 m2) Lab Interpretation (test code = 52533-8) Abnormal [facility]esium2024-[facility] 22:06:02* Test Item Value Reference Range Interpretation Comme nts MAGNESIUM (test code = 7601079028) 1.9 mg/dL 1.7-2.4 Lab Interpretation (test cod e = 50899-2) Normal [facility] GLUCOSE (AUTOMATED)2023-07-03 21:27:22* Test Item Value Reference Range Interpretation Comme nts POCT GLU (test code = 3317097938) 77 mg/dL 70-110 Lab Interpretation (test cod e = 92690-3) Normal [facility] [id number] 21:18:00* Test Item Value Reference Range Interpretation Comme nts POCT PREG (test code = 1605) Negative On board controls acceptable with C Line (test code = 3574) Yes Lab Interpretation (test cod e = 51551-6) Normal [facility] [id number] 12:48:00* Test Item Value Reference Range Interpretation Comme nts POCT PREG (test code = 1605) Negative On board controls acceptable with C Line (test code = 3574) Yes POCT PREG LOT # (test code = 3575) [id number] POCT PREG TEST DATE ( test code = 3576) 06/30/2024 Lab Interpretation (test cod e = 06319-6) Normal [facility] WITH [id number] 04:17:21* Test Item Value Reference Range Interpretation Comme nts WBC (test code = 6690-2) 13.40 See_Comment H [Automated messa ge] The system which generated this result transmitted reference range: 4.30 - 11.10 10*3/?L. The reference range was not used to interpret this result as normal/abnormal. RBC (test code = 789-8) 4.86 See_Comment [Automated messa ge] The system which [...] 32.3 g/dL 31.6-35.1 RDW-SD (test code = 94781-7) 39.8 fL 39.0-49.9 RDW-CV (test code = 788-0) 13.2 % 12.0-15.5 PLT (test code = 777-3) 319 See_Comment [Automated messa ge] The system which generated this result transmitted reference range: 166 - 358 10*3/?L. The reference range was not used to interpret this result as normal/abnormal. MPV (test code = 65766-2) 9.7 fL 9.5-12.9 NRBC/100 WBC (test code = 2892444332) 0.0 See_Comment [Automated [employer] ssage] The system which generated this result transmitted reference range: 0.0 - 10.0 /100 WBCs. The reference range was not used to interpret this result as normal/abnormal. NRBC x10^3 (test code = 7686076760) See_Comment [Automated [employer] ge] The system which generated this result transmitted reference range: 10*3/?L. The reference range was not used to interpret this result as normal/abnormal. SEG % (test code = 36659-6) 60 % 33-76 LYMPH % (test code = 26391-3) 32 % 14-54 MONO % (test code = 79430-7) 8 % 0-4 H ANC (test code = 753-4) 8.04 10*3/uL 1.88-7.09 H Lab Interpretation (test code = 54364-2) Abnormal [facility]. METABOLIC PANEL (37045)2022-07-31 03:41:09* Test Item Value Reference Range Interpretation Comme nts NA (test code = 3434545210) 140 mmol/L 135-145 K (test code = 0665432838) 4.0 mmol/L 3.5-5.0 CL (test code = 7376670145) 100 mmol/L 98-108 CO2 TOTAL (test code = 8124052500) 29 mmol/L 23-31 AGAP (test code = 2127641917) 11 2-16 BUN (test code = 6411305266) 14 mg/dL 7-23 GLUCOSE (test code = 2265195976) 98 mg/dL 70-110 CREATININE (test code = 6183668025) 0.68 mg/dL 0.50-1.04 TOTAL BILI (test code = 1006282676) 1.3 mg/dL 0.1-1.1 H CALCIUM (test code = 9425918901) 10.1 mg/dL 8.6-10.6 T PROTEIN (test code = 6458269969) 8.2 g/dL 6.3-8.2 ALBUMIN (test code = 1437922210) 4.8 g/dL 3.5-5.0 ALK PHOS (test code = 2829575143) 77 U/L 34-122 ALTv (test code = 1742-6) 20 U/L 5-35 AST(SGOT) (test code = 5269090363) 21 U/L 13-40 eGFR (test code = 7618274217) 105.4 mL/min/1.73m2 ZAYRA (test code = ZAYRA) [...] imaging tests). Lab Interpretation (test code = 46872-2) [facility]normal [facility]2023-[facility] 03:41:09* Test Item Value Reference Range Interpretation Comme nts MAGNESIUM (test code = 4175227496) 1.8 mg/dL 1.7-2.4 Lab Interpretation (test cod e = 63095-3) Normal [facility] [id number] 03:16:00* Test Item Value Reference Range Interpretation Comme nts POCT PREG (test code = 1605) Negative On board controls acceptable with C Line (test code = 3574) Positive POCT PREG LOT # (test code = 3575) [id number] POCT PREG TEST DATE ( test code = 3576) 11/28/2023 Lab Interpretation (test cod e = 74346-4) Normal [facility] [id number] 17:21:00* Test Item Value Reference Range Interpretation Comme nts POCT PREG (test code = 1605) Negative On board controls acceptable with C Line (test code = 3574) Yes POCT PREG LOT # (test code = 3575) POCT PREG TEST DATE ( test code = 3576) [facility] [id number] 17:21:00* Test Item Value Reference Range Interpretation Comme nts POCT PREG (test code = 1605) Negative On board controls acceptable with C Line (test code = 3574) Yes POCT PREG LOT # (test code = 3575) POCT PREG TEST DATE ( test code = 3576) [facility] IMMUNE [id number] 03:32:31* Test Item Value Reference Range Interpretation Comme nts RHIG CANDIDATE? (test code = 5055) No- see comment Patient is not a candidate for RhIg- Patient is Rh Positive.Performed at [facility] Laboratory Services - [facility] Blood [address] [place] [id number] Free: [phone] No. [id number] [facility]HO (D) IMMUNE [id number] 03:32:31* Test Item Value Reference Range Interpretation Comme nts RHIG CANDIDATE? (test code = 5055) No- see comment Patient is not a candidate for RhIg- Patient is Rh Positive.Performed at [facility] Laboratory Services - [facility] Blood [place] [address]Toll Free: [phone] No. [id number] [facility]Type and Screen - ONCE [id number] 00:15:31 * Test Item Value Reference Range Interpretation Comme nts ABO & RH (test code = 20) O Positive Performed at [facility] Laboratory [facility] Blood [address] Free: [phone] No. [id number] IAT (test code = 1185) Negative Performed at [facility] Laboratory [facility] Blood [place] [address]Toll Free: [phone] No. [id number] [facility] Screen - ONCE [id number] 00:15:31 * Test Item Value Reference Range Interpretation Comme nts ABO & RH (test code = 20) O Positive Performed at [facility] Laboratory [facility] Blood [place] [address]Toll Free: [phone] No. [id number] IAT (test code = 1185) Negative Performed at [facility] Laboratory [facility] Blood [place] [address]Toll Free: [phone] No. [id number] [facility]PO[facility] URINALYSIS W/O SPECIFIC [id number] 20:54:00* Test Item Value Reference Range Interpretation [...] = 3257) n/a Negative - Negati ve [facility] SoutheastPOTN URINALYSIS W/O SPECIFIC [id number] 15:42:00* Test Item Value Reference Range Interpretation [...] = 3257) n/a Negative - Negati ve [facility] GLUCOSE (AUTOMATED)2022-02-03 21:48:52* Test Item Value Reference Range Interpretation Comme nts POCT GLU (test code = 5956269583) 95 mg/dL 70-110 Lab Interpretation (test cod e = 43225-7) Normal [facility] SoutheastGALV ONLY - SYPHILIS [id number] 15:20:31* Test Item Value Reference Range Interpretation Comme nts Syphilis IgG/IgM (test code = 11154-0) Non-reactive Non-reactive ZAYRA (test code = ZAYRA) Non-reactive - No serologic evidence of T. pallidum infection. Cannot exclude incubating or early syphilis. Submit a second specimen in 2-4 weeks if syphilis is clinically suspected. Equivocal - Further testing to follow. Reactive - Further testing to follow. Lab Interpretation (test code = 54742-1) Normal [facility] and Screen - ONCE [id number] 08:06:59 * Test Item Value Reference Range Interpretation Comme nts ABO & RH (test code = 20) O POSITIVE Performed at [facility] B Laboratory Services - [facility] Blood [address] [place] [address]Eszw Free: [phone] No. [id number] IAT (test code = 1185) Negative Performed at [facility] B Laboratory Services [facility] Blood [address] [address]Quso Free: [phone] No. [id number] [facility] SoutheastHIV 1/2 AG-AB WITH [id number] 07:40:27* Test Item Value Reference Range Interpretation Comme nts HIV Semi-quantitative (test code = 69987-4) Negative Negative ZAYRA (test code = ZAYRA) Non-reactive for HIV-1 antigen and HIV-1/HIV-2 antibodies. ?No laboratory evidence of HIV infection. ?Repeat in 2-4 weeks if acute HIV infection is suspected. [facility] SoutheastHEPATITIS B SURFACE [id number] 06:16:55 * Test Item Value Reference Range Interpretation Comme nts HBsAg Semi-Quantitative (amelia t code = 5195-3) Negative Negative [facility] SoutheastUric Acid [id number] 05:27:07* Test Item Value Reference Range Interpretation Comme nts URIC ACID (test code = 0781933045) 3.6 mg/dL 2.9-6 Lab Interpretation (test cod e = 88477-5) Normal [facility]. METABOLIC PANEL (32536)2022-02-02 05:27:07* Test Item Value Reference Range Interpretation Comme nts NA (test code = 5674930288) 137 mmol/L 135-145 K (test code = 2680774605) 4.2 mmol/L 3.5-5 CL (test code = 7366005293) 103 mmol/L 98-108 CO2 TOTAL (test code = 1239301735) 26 mmol/L 23-31 AGAP (test code = 0445170509) 2-16 BUN (test code = 8455523804) 5 mg/dL 7-23 L GLUCOSE (test code = 8064855220) 98 mg/dL 70-110 CREATININE (test code = 2881745292) 0.42 mg/dL 0.5-1.04 L TOTAL BILI (test code = 1331340239) 0.9 mg/dL 0.1-1.1 CALCIUM (test code = 6802076950) 9.0 mg/dL 8.6-10.6 T PROTEIN (test code = 9896484065) 6.8 g/dL 6.3-8.2 ALBUMIN (test code = 1004649166) 3.3 g/dL 3.5-5 L ALK PHOS (test code = 8513929899) 141 U/L 34-122 H ALTv (test code = 1742-6) 7 U/L 5-35 AST(SGOT) (test code = 2741800573) 20 U/L 13-40 eGFR (test code = 3360620306) mL/min/1.73m2 ZAYRA (test code = ZAYRA) Association [...] imaging tests). Lab Interpretation (test code = 90813-6) [facility]normal [facility] [id number] 05:25:26* Test Item Value Reference Range Interpretation Comme nts LDH (test code = 8615057082) 172 U/L 120-246 Lab Interpretation (test cod e = 21828-2) Normal [facility] with [id number] 05:03:49* Test Item Value Reference Range Interpretation [...] 33.3 g/dL 31.6-35.1 RDW-SD (test code = 42138-9) 41.2 fL 39-49.9 RDW-CV (test code = 788-0) 13.5 % 12-15.5 PLT (test code = 777-3) See_Comment [Automated message] The system which generated this result transmitted reference range: 166 - 358 10*3/?L. The reference range was not used to interpret this result as normal/abnormal. MPV (test code = 08867-9) 10.4 fL 9.5-12.9 NRBC/100 WBC (test code = 9109676236) See_Comment [Automated message] The system which generated this result transmitted reference range: 0.0 - 10.0 /100 WBCs. The reference range was not used to interpret this result as normal/abnormal. NRBC x10^3 (test code = 3219839924) See_Comment [Automated message] The system which generated this result transmitted reference range: 10*3/?L. The reference range was not used to interpret this result as normal/abnormal. GRAN MAT (NEUT) % (test code = 770-8) 74.5 % IMM GRAN % (test code = 1281363420) 0.40 % LYMPH % (test code = 736-9) 16.4 % MONO % (test code = 5905-5) 8.2 % EOS % (test code = 713-8) 0.3 % BASO % (test code = 706-2) 0.2 % GRAN MAT x10^3(ANC) (test code = 2690916287) 11.33 10*3/uL 1.88-7.09 H IMM GRAN x10^3 (test code = 3630772681) 0.06 10*3/uL 0-0.06 LYMPH x10^3 (test code = 731-0) 2.50 10*3/uL 1.32-3.29 MONO x10^3 (test code = 742-7) 1.25 10*3/uL 0.33-0.92 H EOS x10^3 (test code = 711-2) 0.05 10*3/uL 0.03-0.39 BASO x10^3 (test code = 704-7) 0.03 10*3/uL 0.01-0.07 Lab Interpretation (test code = 50825-1) Abnormal [facility] URINALYSIS W/O SPECIFIC [id number] 15:58:00* Test Item Value Reference Range Interpretation [...] = 3257) n/a Negative - Negati ve [facility] URINALYSIS W/O SPECIFIC [id number] 18:13:00* Test Item Value Reference Range Interpretation [...] = 3257) n/a Negative - Negati ve [facility] URINALYSIS W/O SPECIFIC [id number] 14:00:00* Test Item Value Reference Range Interpretation [...] = 3257) n/a Negative - Negati ve [facility] URINALYSIS W/O SPECIFIC [id number] 15:56:00* Test Item Value Reference Range Interpretation [...] = 3257) n/a Negative - Negati ve [facility] URINALYSIS W/O SPECIFIC [id number] 19:19:00* Test Item Value Reference Range Interpretation [...] = 3257) n/a Negative - Negati ve [facility] URINALYSIS W/O SPECIFIC [id number] 18:31:00* Test Item Value Reference Range Interpretation [...] = 3257) N/A Negative - Negati ve [facility] URINALYSIS W/O SPECIFIC [id number] 20:41:00* Test Item Value Reference Range Interpretation [...] = 3257) n/a Negative - Negati ve [facility] URINALYSIS W/O SPECIFIC [id number] 18:15:00* Test Item Value Reference Range Interpretation [...] = 3257) N/A Negative - Negati ve [facility] URINALYSIS W/O SPECIFIC [id number] 19:44:00* Test Item Value Reference Range Interpretation [...] = 3257) n/a Negative - Negati ve [facility] [id number] 19:43:00* Test Item Value Reference Range Interpretation Comme nts POCT PREG (test code = 1605) Positive On board controls acceptable with C Line (test code = 3574) Yes POCT PREG LOT # (test code = 3575) POCT PREG TEST DATE ( test code = 3576) [facility]2021-09-25 10:38:19* Test Item Value Reference Range Interpretation Comme nts MAGNESIUM (test code = 9458746415) 1.8 mg/dL 1.7-2.4 Lab Interpretation (test cod e = 69192-0) Normal [facility]2021-09-25 10:38:19* Test Item Value Reference Range Interpretation Comme nts MAGNESIUM (test code = 6091340957) 1.8 mg/dL 1.7-2.4 Lab Interpretation (test cod e = 45020-7) Normal [facility] (NA, K, CL, CO2, GLUCOSE, BUN, CREATININE, CA)2021-01-14 10:38:18* Test Item Value Reference Range Interpretation Comme nts NA (test code = 5967154486) 139 mmol/L 135-145 K (test code = 8280447037) 4.2 mmol/L 3.5-5.0 CL (test code = 4448957435) 106 mmol/L 98-108 CO2 TOTAL (test code = 7036045138) 27 mmol/L 23-31 AGAP (test code = 1333634283) 2-16 BUN (test code = 6995146380) 8 mg/dL 7-23 GLUCOSE (test code = 2170816589) 103 mg/dL 70-110 CREATININE (test code = 3417122620) 0.61 mg/dL 0.50-1.04 CALCIUM (test code = 2544693894) 9.1 mg/dL 8.6-10.6 eGFR (test code = 0304670570) mL/min/1.73m2 ZAYRA (test code = ZAYRA) Association [...] or urine or abnormalities in imaging tests). [facility] METABOLIC PANEL (NA, K, CL, CO2, GLUCOSE, BUN, CREATININE, CA)2021-01-14 10:38:18* Test Item Value Reference Range Interpretation Comme nts NA (test code = 2409023952) 139 mmol/L 135-145 K (test code = 1456712212) 4.2 mmol/L 3.5-5.0 CL (test code = 6115008091) 106 mmol/L 98-108 CO2 TOTAL (test code = 6622358834) 27 mmol/L 23-31 AGAP (test code = 5736835770) 2-16 BUN (test code = 5082569669) 8 mg/dL 7-23 GLUCOSE (test code = 9664901439) 103 mg/dL 70-110 CREATININE (test code = 8416064916) 0.61 mg/dL 0.50-1.04 CALCIUM (test code = 1331833462) 9.1 mg/dL 8.6-10.6 eGFR (test code = 2706004940) mL/min/1.73m2 ZAYRA (test code = ZAYRA) Association [...] or urine or abnormalities in imaging tests). [facility] WITH [id number] 09:44:09* Test Item Value Reference Range Interpretation Comme nts WBC (test code = 6690-2) See_Comment [Automated [employer] ge] The system which generated this result transmitted reference range: 4.30 - 11.10 10*3/?L. The reference range was not used to interpret this result as normal/abnormal. RBC (test code = 789-8) See_Comment [Automated [employer] ge] The system which generated this result [...] 32.9 g/dL 31.6-35.1 RDW-SD (test code = 37187-5) 42.0 fL 39.0-49.9 RDW-CV (test code = 788-0) 12.8 % 12.0-15.5 PLT (test code = 777-3) See_Comment [Automated [employer] ge] The system which generated this result transmitted reference range: 166 - 358 10*3/?L. The reference range was not used to interpret this result as normal/abnormal. MPV (test code = 99118-2) 9.9 fL 9.5-12.9 NRBC/100 WBC (test code = 6817306942) See_Comment [Automated [employer] ssage] The system which generated this result transmitted reference range: 0.0 - 10.0 /100 WBCs. The reference range was not used to interpret this result as normal/abnormal. NRBC x10^3 (test code = 3014052889) <0.01 See_Comment [Automated messa ge] The system which generated this result transmitted reference range: 10*3/?L. The reference range was not used to interpret this result as normal/abnormal. GRAN MAT (NEUT) % (test code = 770-8) 43.4 % IMM GRAN % (test code = 3509517763) 0.30 % LYMPH % (test code = 736-9) 45.6 % MONO % (test code = 5905-5) 8.4 % EOS % (test code = 713-8) 1.9 % BASO % (test code = 706-2) 0.4 % GRAN MAT x10^3(ANC) (test code = 0506987779) 3.14 10*3/uL 1.88-7.09 IMM GRAN x10^3 (test code = 1104916765) <0.03 0.00-0.06 LYMPH x10^3 (test code = 731-0) 3.30 10*3/uL 1.32-3.29 H MONO x10^3 (test code = 742-7) 0.61 10*3/uL 0.33-0.92 EOS x10^3 (test code = 711-2) 0.14 10*3/uL 0.03-0.39 BASO x10^3 (test code = 704-7) 0.03 10*3/uL 0.01-0.07 Lab Interpretation (test code = 24785-6) Abnormal [facility] WITH [id number] 09:44:09* Test Item Value Reference Range Interpretation [...] 32.9 g/dL 31.6-35.1 RDW-SD (test code = 81973-9) 42.0 fL 39.0-49.9 RDW-CV (test code = 788-0) 12.8 % 12.0-15.5 PLT (test code = 777-3) See_Comment [Automated messa ge] The system which generated this result transmitted reference range: 166 - 358 10*3/?L. The reference range was not used to interpret this result as normal/abnormal. MPV (test code = 50110-7) 9.9 fL 9.5-12.9 NRBC/100 WBC (test code = 0942493866) See_Comment [Automated [employer] ssage] The system which generated this result transmitted reference range: 0.0 - 10.0 /100 WBCs. The reference range was not used to interpret this result as normal/abnormal. NRBC x10^3 (test code = 3528500914) <0.01 See_Comment [Automated [employer] ge] The system which generated this result transmitted reference range: 10*3/?L. The reference range was not used to interpret this result as normal/abnormal. GRAN MAT (NEUT) % (test code = 770-8) 43.4 % IMM GRAN % (test code = 8686510266) 0.30 % LYMPH % (test code = 736-9) 45.6 % MONO % (test code = 5905-5) 8.4 % EOS % (test code = 713-8) 1.9 % BASO % (test code = 706-2) 0.4 % GRAN MAT x10^3(ANC) (test code = 2428076066) 3.14 10*3/uL 1.88-7.09 IMM GRAN x10^3 (test code = 0174007125) <0.03 0.00-0.06 LYMPH x10^3 (test code = 731-0) 3.30 10*3/uL 1.32-3.29 H MONO x10^3 (test code = 742-7) 0.61 10*3/uL 0.33-0.92 EOS x10^3 (test code = 711-2) 0.14 10*3/uL 0.03-0.39 BASO x10^3 (test code = 704-7) 0.03 10*3/uL 0.01-0.07 Lab Interpretation (test code = 29921-8) Abnormal [facility] SoutheastPROTHROMBIN TIME / [id number] 19:19:17* Test Item Value Reference Range Interpretation Comme [facility] PROTIME PATIENT (test code = 5964-2) See_Comment H [Automated [employer]] The system which generated this result transmitted reference range: 10.1 - 12.6 Seconds. The reference range was not used to interpret this result as normal/abnormal. INR (test code = 6301-6) Normal INR <1.1; Warfarin Therapeutic range 2.0 to 3.0 or 2.5 to 3.5, depending upon the indications. Lab Interpretation (test code = 21628-8) Abnormal [facility] SoutheastPROTHROMBIN TIME / [id number] 19:19:17* Test Item Value Reference Range Interpretation Comme [facility] PROTIME PATIENT (test code = 5964-2) See_Comment H [Automated [employer]Spot] The system which generated this result transmitted reference range: 10.1 - 12.6 Seconds. The reference range was not used to interpret this result as normal/abnormal. INR (test code = 6301-6) Normal INR <1.1; Warfarin Therapeutic range 2.0 to 3.0 or 2.5 to 3.5, depending upon the indications. Lab Interpretation (test code = 57745-4) Abnormal [facility] SoutheastACTIVATED PARTIAL THRMPLAS [id number] 10:00:07* Test Item Value Reference Range Interpretation Comme [facility] APTT Patient (test code = 3173-2) See_Comment [Automated [employer]Spot] The system which generated this result transmitted reference range: 26 - 36 Seconds. The reference range was not used to interpret this result as normal/abnormal. Lab Interpretation (test code = 62601-0) Normal [facility]ACTIVATED PARTIAL THRMPLAS [id number] 10:00:07* Test Item Value Reference Range Interpretation Comme [facility] APTT Patient (test code = 3173-2) See_Comment [Automated [employer]] The system which generated this result transmitted reference range: 26 - 36 Seconds. The reference range was not used to interpret this result as normal/abnormal. Lab Interpretation (test code = 62673-3) Normal [facility] / [id number] 10:00:06* Test Item Value Reference Range Interpretation Comme [facility] PROTIME PATIENT (test code = 5964-2) See_Comment H [Automated [employer]] The system which generated this result transmitted reference range: 10.1 - 12.6 Seconds. The reference range was not used to interpret this result as normal/abnormal. INR (test code = 6301-6) Normal INR <1.1; Warfarin Therapeutic range 2.0 to 3.0 or 2.5 to 3.5, depending upon the indications. Lab Interpretation (test code = 07563-3) [id number]01:50* Test Item Value Reference Range Interpretation Comments TROPONIN I (test code = 3629401099) 0.000 ng/mL See_Comment [Automated message] The system [...] of biotin. Lab Interpretation (test code = 26935-0) [id number] 07:01:50* Test Item Value Reference Range Interpretation Comments TROPONIN I (test code = 3081514799) 0.000 ng/mL See_Comment [Automated message] The system [...] of biotin. Lab Interpretation (test code = 46746-3) [facility]* Test Item Value Reference Range Interpretation Comme nts MAGNESIUM (test code = 3197296371) 1.8 mg/dL 1.7-2.4 Lab Interpretation (test cod e = 49487-7) Normal [facility] WITH [id number] 05:05:49* Test Item Value Reference Range Interpretation Comme nts WBC (test code = 6690-2) See_Comment H [Automated [employer]] The system which generated this result transmitted reference range: 4.30 - 11.10 10*3/?L. The reference range was not used to interpret this result as normal/abnormal. RBC (test code = 789-8) See_Comment [Automated [employer]Spot] The system which generated this result transmitted [...] 32.9 g/dL 31.6-35.1 RDW-SD (test code = 94884-2) 41.5 fL 39.0-49.9 RDW-CV (test code = 788-0) 12.8 % 12.0-15.5 PLT (test code = 777-3) See_Comment [Automated [employer]] The system which generated this result transmitted reference range: 166 - 358 10*3/?L. The reference range was not used to interpret this result as normal/abnormal. MPV (test code = 13481-6) 9.9 fL 9.5-12.9 NRBC/100 WBC (test code = 0344340237) See_Comment [Automated [employer] ssage] The system which generated this result transmitted reference range: 0.0 - 10.0 /100 WBCs. The reference range was not used to interpret this result as normal/abnormal. NRBC x10^3 (test code = 7167945508) <0.01 See_Comment [Automated [employer]] The system which generated this result transmitted reference range: 10*3/?L. The reference range was not used to interpret this result as normal/abnormal. GRAN MAT (NEUT) % (test code = 770-8) 44.8 % IMM GRAN % (test code = 8701807634) 0.20 % LYMPH % (test code = 736-9) 45.7 % MONO % (test code = 5905-5) 7.8 % EOS % (test code = 713-8) 1.2 % BASO % (test code = 706-2) 0.3 % GRAN MAT x10^3(ANC) (test code = 4198272447) 5.32 10*3/uL 1.88-7.09 IMM GRAN x10^3 (test code = 6890244437) <0.03 0.00-0.06 LYMPH x10^3 (test code = 731-0) 5.41 10*3/uL 1.32-3.29 H MONO x10^3 (test code = 742-7) 0.93 10*3/uL 0.33-0.92 H EOS x10^3 (test code = 711-2) 0.14 10*3/uL 0.03-0.39 BASO x10^3 (test code = 704-7) 0.03 10*3/uL 0.01-0.07 Lab Interpretation (test code = 59082-6) [facility] (03469)2021-01-13 04:51:47* Test Item Value Reference Range Interpretation Comme nts NA (test code = 6435235122) 142 mmol/L 135-145 K (test code = 0143094074) 4.1 mmol/L 3.5-5.0 CL (test code = 6537102111) 103 mmol/L 98-108 CO2 TOTAL (test code = 8675408165) 28 mmol/L 23-31 AGAP (test code = 7616208682) 2-16 BUN (test code = 7979594155) 8 mg/dL 7-23 GLUCOSE (test code = 5573974050) 100 mg/dL 70-110 CREATININE (test code = 9840937479) 0.67 mg/dL 0.50-1.04 TOTAL BILI (test code = 8568188821) 0.9 mg/dL 0.1-1.1 CALCIUM (test code = 1721343571) 9.8 mg/dL 8.6-10.6 T PROTEIN (test code = 4133345541) 7.9 g/dL 6.3-8.2 ALBUMIN (test code = 6608798976) 4.6 g/dL 3.5-5.0 ALK PHOS (test code = 7550282895) 81 U/L 34-122 ALTv (test code = 1742-6) 14 U/L 5-35 AST(SGOT) (test code = 8474470508) 18 U/L 13-40 eGFR (test code = 9171793690) mL/min/1.73m2 ZAYRA (test code = ZAYRA) Association [...] or urine or abnormalities in imaging tests). [facility]. METABOLIC PANEL (14364)2021-01-13 04:51:47* Test Item Value Reference Range Interpretation Comme nts NA (test code = 3645084971) 142 mmol/L 135-145 K (test code = 4156511937) 4.1 mmol/L 3.5-5.0 CL (test code = 6499595029) 103 mmol/L 98-108 CO2 TOTAL (test code = 7226443299) 28 mmol/L 23-31 AGAP (test code = 9694669940) 2-16 BUN (test code = 3417698816) 8 mg/dL 7-23 GLUCOSE (test code = 5990951420) 100 mg/dL 70-110 CREATININE (test code = 5185964648) 0.67 mg/dL 0.50-1.04 TOTAL BILI (test code = 8339029832) 0.9 mg/dL 0.1-1.1 CALCIUM (test code = 1344423370) 9.8 mg/dL 8.6-10.6 T PROTEIN (test code = 4103996355) 7.9 g/dL 6.3-8.2 ALBUMIN (test code = 6828644499) 4.6 g/dL 3.5-5.0 ALK PHOS (test code = 6371203087) 81 U/L 34-122 ALTv (test code = 1742-6) 14 U/L 5-35 AST(SGOT) (test code = 8394850108) 18 U/L 13-40 eGFR (test code = 3465648928) mL/min/1.73m2 ZAYRA (test code = ZAYRA) Association [...] or urine or abnormalities in imaging tests). [facility] [id number] 07:22:00* Test Item Value Reference Range Interpretation Comme nts POCT PREG (test code = 1605) Negative On board controls acceptable with C Line (test code = 3574) Present POCT PREG LOT # (test code = 3575) [id number] POCT PREG TEST DATE ( test code = 3576) 04/21/2022 Lab Interpretation (test cod e = 66670-0) Normal [facility] Consult Notes Date/Time Note Provider Source 2024-02-09 10:28:51 History & Physical Chief complaint Right ankle fracture Assessment Allie Martin is a 28 y.o. female . She has a past medical history of Pafib (no meds and no a/c), PFO, morbid obesity, and SKINNY/MDD. Patient is presenting to [facility] after mechanical fall resulting in right ankle fracture. Now planned for surgery potentially today. Assessment & Plan Ankle fracture, right, closed, initial encounter -planned for procedure mentioned above -post op PT/OT -local wound care -weight bearing as per ORS team and likely non-weightbearing -multimodal pain regimen -bowel regimen -incentive spirometry use encouraged -dvt proph of lovenox Preop examination 1. Type of surgery : Intermediate risk orthopedic surgery 2. Risk Scores Cardiovascular -RCRI score with point breakdown: Class I risk with 3.9% risk of MACE -Gabby perioperative risk for myocardial infarction or cardiac arrest (SNOW): 0.1 % Pulmonary -ARISCAT score for predictor of pulmonary complications: 1.6% risk of in-hospital post-op pulmonary complications Venous Thromboembolism Risk -Caprini VTE score: 10% risk of venous thromboembolism. Recommend recommend chemical dvt prophylaxis 3. EKG/Cardiac Imaging: pending -crossband layer: n/a 4. Exercise tolerance: Based on questions it is equivalent to >4 METS 5. Overall Surgical Risk Assessment/Recommendations -I have reviewed the patient's labs, ekg, and pertinent imaging. -No acute Chest pain or Shortness of breath or recent limitations in their ADLs. -Reactions to Anesthesia: none -Daily or intermittent use of opioids for greater than or equal to 90 days prior to surgery: no -Medical factors that may interfere with surgery : ~~~~~~~~~~~~~~~~~~~~~~ Age Morbid Obesity Pafib ~~~~~~~~~~~~~~~~~~~~~~ -Overall Risk for surgery based on findings above: low risk patient for a moderate risk procedure. -Recommendations: Patient may proceed to OR without additional testing barring any significant findings on EKG There is no single risk score to comprehensively assess a patient's risk of experiencing complications during surgery or in the postoperative period. Instead, our recommendations are based on a thorough review of the patient's medical and surgical history, an interview with the patient, a physical examination, laboratory and imaging results, input from specialists, and our clinical judgment. Paroxysmal A-fib (CMS/HCC) (HCC) TARI?DS?-VASc of 1 -rate/rhythm control: none. Was previously on metoprolol but not currently -anticoagulation: none at this time PFO (patent foramen ovale) -chronic -no surgical repair. No hx of CVA -outpatient monitoring and discussion w/ PCP if closure is needed Morbid obesity (HCC) Body mass index is 40.24 kg/m?. -Counseled on importance of weight loss via diet and lifestyle modifications Vitamin B6 deficiency -resume supplementation on discharge SKINNY (generalized anxiety disorder) -not on any meds -c/w supportive care MDD (major depressive disorder) -not on any meds -c/w supportive care Leukocytosis -likely reactive due to trauma -less likely infectious etiology -monitor for now off abx Medications No current facility-administered medications for this encounter. Current Outpatient Medications Medication Sig Dispense Refill B Complex Vitamins (VITAMIN B COMPLEX PO) Take by mouth. MAGNESIUM GLYCINATE PO Take by mouth. Objective Last Recorded Vitals Blood pressure 106/58, pulse 97, temperature 36.6 ?C (97.9 ?F), temperature source Oral, resp. rate 18, height 1.575 m (5' 2"), weight 99.8 kg (220 lb), SpO2 100%. Body mass index is 40.24 kg/m?. General Appearance: Sitting in chair, no cardio pulm distress, female , morbidly obese Skin: no rashes, lesions, or ulcerations Head: NCAT Eyes: PERRLA, EOMI Ear, Nose, Throat: supple, no oral thrush, no oral cyanosis, no lesions Cardiovascular: RRR, pos S1 and S2, no murmurs appreciated Respiratory: CTA b/l Abdomen: Soft, obese, ND, pos BS Genitourinary: n/a Extremities: Grossly intact, SYLVIA all ext, except for RLE which is maintained in splint Neurological: no focal deficits Psychiatric: Alert, awake, oriented x 3 Lymphatics: no LAD, no lower ext edema bilaterally Labs/Imaging were personally reviewed by me: Latest Reference Range & Units 02/09/24 03:55 Sodium Lvl 136 - 145 mEq/L 140 Potassium Lvl 3.4 - 4.5 mEq/L 3.6 Chloride Lvl 98 - 107 mEq/L 109 (H) CO2 Lvl 20.0 - 31.0 mEq/L 23.1 Anion Gap 10.0 - 20.0 mEq/L 11.5 Creatinine Lvl 0.55 - 1.02 mg/dL 0.72 EGFR >60 mL/min/1.73m2 118 BUN 9 - 23 mg/dL 8 (L) Glucose Lvl 70 - 99 mg/dL 119 (H) Calcium Lvl 8.3 - 10.6 mg/dL 9.1 WBC 4.15 - 10.55 10*3/uL 13.10 (H) Hgb 10.8 - 14.8 g/dL 13.1 Hematocrit 33.9 - 45.4 % 40.3 MCH 24.9 - 32.6 pg 28.4 MCHC 30.1 - 35.0 g/dL 32.5 MCV 77.8 - 97.5 fL 87.4 MPV 9.0 - 12.6 fL 9.7 Plt Count 191 - 422 10*3/uL 286 RBC 3.74 - 5.22 10*6/uL 4.61 RDW - SD 37.6 - 49.1 fL 43.8 Segs % 40.9 - 70.4 % 67.9 Lymphs % 15.3 - 46.4 % 24.2 Monos % 3.9 - 10.9 % 0.27 - 0.78 10*3/uL 6.5 0.85 (H) Eos % 0.3 - 4.1 % 0.6 Basos % 0.2 - 1.3 % 0.4 Immature Grans % 0.1 - 1.0 % 0.4 NRBC % 0 /100 WBC 0.0 Segs # 2.03 - 7.09 10*3/uL 8.90 (H) Lymphs # 1.09 - 3.65 10*3/uL 3.17 Eos # 0.02 - 0.33 10*3/uL 0.08 Basos # 0.01 - 0.09 10*3/uL 0.05 Imm Grans # 0.01 - 0.07 10*3/uL 0.05 hCG Total mIU/mL <5.0 (H): Data is abnormally high (L): Data is abnormally low IMPRESSION: 1. Supination-external rotation stage IV injury: * Mildly displaced oblique lateral malleolus fracture at the syndesmosis. * Displaced posterior malleolus fracture involving 25% of the articular surface. 6 x 8 mm fragment of the tibial plafond articular surface is rotated by 90 degrees and displaced into the posterior malleolus fracture line. * Comminuted medial malleolus fracture with medial malleolus broken into 2 dominant fracture fragments. 2. A few small bone fragments in the anterior weightbearing surface of the tibiotalar joint (series 5 image 43, 47). IMPRESSION: Mild persistent posterior subluxation of the tibiotalar joint post closed reduction of trimalleolar supination-external rotation ankle injury History Of Present Illness Allie Martin is a 28 y.o. female with the past medical history listed below who is presenting to [facility] for evaluation and treatment of her right ankle fracture. She was at a local bar with her boyfriend when she sustained a mechanical fall and rolled her right ankle. She was brought to [facility] for evaluation and workup found trimalleolar ankle fracture. No other injuries. Seen by ortho and planned for surgery potentially today. Patient reports they have been at baseline health. Patient states they would be able to ambulate 1-2 city blocks and go up 1 flight of stairs without chest pain or shortness of breath. No known adverse reactions to anesthesia. Upon further discussion their review of systems is pertinent for (-) chest pain, (-) shortness of breath, (-) nausea, (-) vomiting, (-) abdominal pain, (-) fever, (-) chills, (-) melena, (-) diarrhea, (-) dysuria, (-) hematuria, (-) skin rashes, and (-) lower extremity edema. Past Medical History SKINNY MDD Morbid Obesity PAfib Surgical History Family History No premature CAD Social History No tobacco abuse Soc Etoh Allergies Patient has no known allergies. Review of Systems A complete review of systems was performed. Pertinent positives as per HPI, otherwise everything else was reviewed and negative. Primary team is Hospitalist service. Please EpicChat with questions or concerns. This note was created use voice recognition software. Please excuse any typographical errors and please contact me for any clarifications. [facility] Procedure Notes Date/Time Note Provider Source 2024-03-05 08:35:00 PATIENT NAME: Allie Martin DATE OF OPERATION: 03/05/2024 PREOPERATIVE DIAGNOSES: Pre-Op Diagnosis Codes: * Displaced trimalleolar fracture of right lower leg, initial encounter for closed fracture [S82.851A] POSTOPERATIVE DIAGNOSES: Post-op Diagnosis * Displaced trimalleolar fracture of right lower leg, initial encounter for closed fracture [S82.851A] PROCEDURE PERFORMED: 1) OPEN REDUCTION INTERNAL FIXATION RIGHT ANKLE (Right), EXTERNAL FIXATION DEVICE REMOVAL RIGHT ANKLE (Right) ATTENDING PHYSICIAN: Dirk Gonzalez MD ASSISTING SURGEON: Jorge Francis MD ANESTHESIA: general INTRAVENOUS FLUIDS: See anesthesia report. ESTIMATED BLOOD LOSS: 150 cc SPECIMENS: None. COMPLICATIONS: None Apparent. IMPLANTS: Implant Name Type Inv. Item Serial No. Editor Producer Lot No. LRB No. Used Action PLATE TPLUS 2.5MM 12H - [id number] Orthopedic Implant PLATE TPLUS 2.5MM 12H [employer] [facility] Right 1 Implanted 8 HOLE ONE THIRD TUBULAR, NONLOCKING [employer] [facility] Right 1 Implanted SCREW BN 2MM 16MM ANTHEM SS - [id number] Orthopedic Implant SCREW BN 2MM 16MM ANTHEM SS [facility] Right 1 Implanted PLATE K 91MM SS 2.5MM SCR 12 H - [id number] Orthopedic Implant PLATE K 91MM SS 2.5MM SCR [address] [employer] [facility] Right 1 Implanted SCREW BN 3.5MM 12MM ANTHEM SS - [id number] Screw SCREW BN 3.5MM 12MM ANTHEM SS [employer] [facility] Right 1 Implanted SCREW BN 3.5MM 14MM ANTHEM SS - [id number] Screw SCREW BN 3.5MM 14MM ANTHEM SS [employer] [facility] Right 2 Implanted SCREW BN 3.5MM 20MM ANTHEM SS - [id number] Screw SCREW BN 3.5MM 20MM ANTHEM SS [employer] [facility] Right 1 Implanted 3.5 MM NONLOCKING SCREW [employer] [facility] Right 1 Implanted SCREW BN 3.5MM 65MM ANTHEM SS - [id number] Orthopedic Implant SCREW BN 3.5MM 65MM ANTHEM SS [facility] Right 1 Implanted 2.5 NONLOCKING SCREW [facility] Right 1 Implanted 2.5 MM NONLOCKING [employer] [place] [facility] Right 2 Implanted 2.5 NONLOCKING SCREW [employer] [place] [employer] Right 1 Implanted 2.5 NONLOCKING SCREW [facility] Right 1 Implanted 2.5 MM NONLOCKING [facility] [facility] [facility] Right 1 Implanted 2.5 MM NONLOCKING SCREW [facility] Right 1 Implanted 2.5 MM NONLOCKING SCREW [facility] Right 2 Implanted FINDINGS: 1. Stable reduction following instrumentation Tourniquet Time: Total Tourniquet Time Documented: Thigh (Right) - 69 minutes Thigh (Right) - 36 minutes Total: Thigh (Right) - 105 minutes DRAINS: None. DISPOSITION: Stable to PACU. INDICATIONS: Allie Martin is a 28 y.o. female who sustained a right trimalleolar ankle fracture after a ground level fall. She had previously underwent external fixation. The options, including risks and benefits, of operative and non-operative management was discussed with the patient. Risks and benefits of surgery were discussed with the patient and the patient understood. We discussed the alternatives and details of surgery and postoperative care with the patient. The patient understands the concepts of surgery and the postoperative conditions required for healing. The patient further understands that surgery can have unfavorable outcomes. In particular, we discussed the possible complications of nonhealing of the tissues and need for reoperation, nerve injury, bleeding or blood loss requiring transfusion, hematoma or complications of anticoagulation used to prevent blood clots, infection requiring further surgery or removal of implants, massive infection requiring amputation, continued or worse pain. We also discussed worsening of chronic medical conditions and life-threatening complications including stroke, DVT, heart attack, pulmonary embolism and related to the surgery or anesthesia, or other factors. They opted for operative intervention. The patient understands these risks and benefits of surgery and wished to proceed, and has signed consent willfully. DESCRIPTION OF PROCEDURE: The patient was identified in the preoperative holding area and taken to the OR where general anesthesia was induced on the hospital bed without complication. We then performed a multidisciplinary timeout which included but not limited to the confirmation of the administration of weight-based IV antibiotics at least 10 minutes prior incision as well as the correct operative limb and procedure. The external fixator was then removed. The patient was then transferred over to a hospital bed and placed in the prone position. All of the patient's bony prominences were well-padded. The operative extremity was then prepped and draped in usual sterile fashion. We started by inflating the tourniquet and then made a posterior lateral incision centered between the lateral edge of the Achilles tendon and the posterior border of the fibula. Skin subcutaneous tissues were dissected and electrocautery was used to obtain hemostasis. We then used scissor dissection in order to identify the sural nerve and distal aspect of the wound was protected throughout the case. We then identified the peroneal tendon sheath and it was incised and the peroneal tendons were retracted laterally. We then incised the FHL fascia and elevated the FHL from the posterior border of the fibula and identified the posterior aspect of the tibia. The posterior malleolus fracture fragment was then displaced and this fracture bed was cleaned. We then remove the chondral cancellous piece that was impacted and irrigated the joint. We then reduced the posterior malleoli are fracture fragment and wired in place. We confirmed its reduction on biplanar fluoroscopy. We then bent a 2.5 mm plate the posterior aspect of the tibia and secured it using a buttress screw. We then confirmed its position on AP and a lateral. We then added 1 more screw proximally and then turned our attention to the distal aspect of the plate. We then placed one 2.5 mm lag screw by technique and then 1 to 2.5 mm position screw in the fracture fragment. We then confirmed that the posterior malleolus fracture fragment was reduced and the plate was in appropriate position. Then we added 1 more 2.5 millimeter screw proximally the plate. We then obtained fluoroscopic images of the posterior malleolar plate and was happy with the implant position and screw lengths and reduction. We then turned our attention to the fibula and cleaned the posterior border the fibula as well as a fracture plane using a pituitary rongeur a curette and a knife. We then used bone reduction clamps to reduce the fibula and placed a 2.0 mm position screw. We then picked the appropriate size length one third tubular plate and positioned it on the posterior aspect of the fibula. We then secured it proximally using one 3.5 millimeter screw. We then again confirmed its position and screw length. We then added 2 more screws proximally and 2 screws distally to secure our fracture and plate to the bone. We then obtained final fluoroscopic images of the fibula which confirmed our implant placement screw lengths and reduction. We then copiously irrigated the wound then deflated the tourniquet. Hemostasis was obtained and the wound was closed with 2-0 Monocryl 3-0 nylon. Patient was then transitioned onto another OR bed and placed in the supine position. All of her bony prominences well-padded. The leg was then reprepped and draped and the tourniquet was elevated. We then made a curvilinear incision centered over the medial aspect of the tibia curving anterior and distal. The skin subcutaneous tissues were dissected and electrocautery was used to obtain hemostasis. We then identified the medial malleolus fracture fragment and its edges were cleaned. It was then displaced posteriorly and we placed the chondral cancellous piece into the bed where it belonged on the medial aspect and the posterior aspect of the ankle. It was confirmed to be in appropriate position on fluoroscopy. We then reduced the medial malleolus fracture fragment and contoured a 2.5 mm K plate in the appropriate position. It was secured to the bone proximally using a 2.5 millimeter screw. We then added 2 more screws proximally. This then buttressed our medial malleolus fracture fragment. We then used a bone reduction clamp to compress the medial malleolus into the medial shoulder and then a 3.5 millimeter screw was placed through the medial malleolus with appropriate trajectory under biplanar fluoroscopy. This drill was measured and then the appropriate size screw was inserted and final tightened. We then added 1 more screw through the 2.5 mm K plate and the medial malleolus fracture fragment from medial lateral. We then obtained final fluoroscopic images that confirmed our implant placement screw lengths and reduction. Stress examination was performed the ankle was stable. We then copiously irrigated the wound deflated tourniquet obtain hemostasis and closed in one 2-0 Monocryl and 3-0 nylon. Patient was then placed in the soft dressings and final digital radiographs were obtained in the operating room which confirmed our fluoroscopic findings. The patient was then placed into a well-padded below-knee splint and awoken from anesthesia and taken to PACU in stable condition. All needle and sponge counts were correct. I was present for the critical portions of the procedure and immediately available for the entire the case. Postoperatively she can be nonweightbearing to the right lower extremity. She should discharge home today. We provided narcotics for her for pain relief. She should take aspirin 81 mg twice daily for DVT prophylaxis. We will plan on seeing her in 2 weeks for wound check. [facility] Orthopedic Surgery Physician Yvan Roche 2024-03-04 08:36:30 Current Medications Medication Instructions ibuprofen 600 MG tablet Continue until night before surgery methocarbamol (Robaxin) 500 MG tablet Continue until night before surgery aspirin EC 81 MG EC tablet Continue until night before surgery Additional Instructions: Thank you for choosing [facility] for your surgical care needs. Our goal is to provide you with compassionate care, while keeping you informed throughout your stay. If at any point you feel that you need additional information, have questions or simply want an update on the plan for the day, please feel free to contact one of our team members at Day surgery [phone] Anesthesia Clinic [phone] Arrival Information for Adults on the Day of Surgery The [facility] is the closest parking garage to the Adult Day Surgery Admissions area. [facility] Address: [address] [place] [address] *Parking rates for [facility] are comparable to other parking options available. Special Instructions Food, Drink and Medications You must have an empty stomach during surgery. Do not eat anything after midnight on the evening before your surgery. The only exceptions are medications that are approved by your doctor and instructed by the PAT nurse over the phone. Remember to not smoke, vape, chew tobacco or drink alcohol during the 24 hours before your surgery. Please purchase (3) 12 oz bottles of Gatorade, any color except red or orange. Drink 2 bottles of Gatorade the night before your surgery and the last bottle the morning of surgery 1 hour before the arrival time. *If you are taking any weekly weight loss injections, please STOP at least 7 days before your scheduled surgery. (Radha Germain, Fidel, Que, Kuldeep, Jose Ramon, Trulicity.......) CHG Shower and Sleep Your body needs to be thoroughly washed with Chlorhexidine Gluconate (CHG) soap before surgery. This is the special soap that can be found at your local drugstore on the regular soap aisle. Taking two showers with CHG soap removes germs from your skin and reduces the risk of infection. Please shower your entire body with the CHG soap with the exception of your genitals. If you have any open wounds or toro. DO NOT use the CHG. By taking these important steps before surgery, you are doing your part to help us give you the safest care possible. Getting Ready On the day of your surgery, take a shower with the CHG soap, following the instructions from the PAT nurse, and put on clean, loose-fitting, warm clothing to wear to the hospital. You will need to remove nail cymraes and arrive at the hospital without wearing makeup, lotions or powders. Remove all jewelry, including piercings. If you cannot remove rings, we can cut them off when you arrive in the pre-operative area. Valuables Please leave all valuable items at home or give them to a family member to hold until after your surgery. The hospital cannot be responsible for your jewelry or other valuables. Hospital Arrival Please arrive at the hospital 2 hours before your scheduled surgery time with your photo ID, insurance card and medication list. When you arrive, you will change into a hospital gown and remove contact lenses if you wear them. If you did not bathe with CHG soap, please tell your nurse. *You will receive a call from Day Surgery 1 business day before your scheduled surgery to provide your time of arrival. * [facility] Cardiology [facility] 2024-02-20 12:39:11 Current Medications Medication Instructions HYDROcodone-acetaminophen ([place]) 5-325 MG tablet Take morning of surgery with sip of water, no other fluids methocarbamol (Robaxin) 500 MG tablet Continue until night before surgery Additional Instructions: Thank you for choosing [facility] for your surgical care needs. Our goal is to provide you with compassionate care, while keeping you informed throughout your stay. If at any point you feel that you need additional information, have questions or simply want an update on the plan for the day, please feel free to contact one of our team members at Day surgery [phone] Anesthesia Clinic [phone] PARKING INFORMATION/ARRIVAL INFORMATION The [facility] is the closest parking garage to the Adult Day Surgery Admissions area. [facility] Address: [address] [place] [address] You will take the elevators directly connected to this garage down to the 2nd floor-Day Surgery Department to check in and register for your surgery/procedure. Please make sure you have a ride home. You can not drive home after your procedure or go home by yourself. An adult must accompany you home. Food, Drink and Medications You must have an empty stomach during surgery. Do not eat anything after midnight on the evening before your surgery. The only exceptions are medications that are approved by your doctor and instructed by the PAT nurse over the phone. Remember to not smoke, vape, chew tobacco or drink alcohol during the 24 hours before your surgery. Please purchase (3) 12 oz bottles of Gatorade, any color except red or orange. Drink 2 bottles of Gatorade the night before your surgery and the last bottle the morning of surgery 1 hour before the arrival time. *IF YOU ARE DIABETIC, PLEASE IGNORE THE [facility] DRINK INSTRUCTIONS. *IF YOU ARE HAVING AN ENDOSCOPY/COLONOSCOPY PROCEDURE, YOU WILL FOLLOW ALL INSTRUCTIONS FROM YOU GI DOCTOR. *If you are taking any weekly weight loss injections, please STOP at least 7 days before your scheduled surgery. (Marcellus, Radha, Fidel, Que, Kuldeep, Jose Ramon, Vilma.......) Preparation Your body needs to be thoroughly washed with Hibiclens or Chlorhexidine Gluconate (CHG) soap before surgery. This is the special soap that can be found at your local drugstore on the regular soap aisle. Taking two showers with CHG soap removes germs from your skin and reduces the risk of infection. Please shower your entire body with the CHG soap with the exception of your genitals/face/hair. Please bath with the soap the night before as well as the morning of your procedure. Do not put any lotions on the body after bathing with the soap, but deodorant may be worn unless you are having a breast procedure. If you have any open wounds or toro. DO NOT use the CHG. You will need to remove nail cymraes and arrive at the hospital without wearing makeup, lotions or powders. Remove all jewelry, including piercings. If you cannot remove rings, we can cut them off when you arrive in the pre-operative area. Valuables Please leave all valuable items at home or give them to a family member to hold until after your surgery. The hospital cannot be responsible for your jewelry or other valuables. *You will receive a call from Day Surgery 1 day before your scheduled surgery to provide your time of arrival ([phone]). * If your condition changes, please notify your surgeon and the Day Surgery Dept. [facility] Notes Date/Time Note Provider Source Referral ID Status Reason Start Date Expiration Date Visits Re quested Visits Authorized [id number] 1 [id number] 19:13:43Pending Results Scheduled Orders Name Type Priority Associated Diagnoses Order Schedule Oxygen Therapy - Patient Type: Adult; Device: Nasal Cannula; Rate in liters per minute: 6 Lpm; Follow Respiratory Pathway: Yes Respiratory Care Routine For RT frequenc y use only for continuous procedures with task-based reminders at 8a and 8p until discontinued starting 03/05/2024 Oxygen Therapy - Patient Type: Adult; Device: Simple Face Mask; Rate in liters per minute: 6 Lpm; Follow Respiratory Pathway: Yes Respiratory Care Routine For RT frequenc y use only for continuous procedures with task-based reminders at 8a and 8p until discontinued starting 03/05/2024 XR ankle 2 views right Imaging Routine Once for 1 Occurrences starting 03/05/2024 until 03/05/2024 Scheduled Procedures Name Priority Associated Diagnoses Date/Ti me ORIF, ANKLE Displaced trimal leolar fracture of right lower leg, initial encounter for closed fracture 03/05/2024 8:35 AM TIMBER SURVEYOR REMOVAL, EXTERNAL FIXATION DEVICE Displaced trimalleolar fracture of right lower leg, initial encounter for closed fracture 03/05/2024 8:35 AM TIMBER SURVEYOR Health Maintenance Due Date Last Done Comments Lipid Panel 1997 Annual Physical 2000 HPV Vaccines (3 - 2-dose series) 12/21/2010 07/26/2010, 06/20/2010 Influenza Vaccine (#1) 2023 , 07/19/2021, 02/11/2019 Pap Smear 07/19/2024 07/19/2021 DTaP/Tdap/Td Vaccines (12 - Td or Tdap) 01/18/2032 01/17/2022, 06/29/2019, 12/17/2017, Additional history exists Hepatitis B Vaccines Completed 06/05/1999, 1997, 1997 Pneumococcal Vaccine: Pediatrics (0 to 5 Years) and At-Risk Patients (6 to 64 Years) Aged Out 06/05/1999, 1997, 1997, Additional history exists No longer eligible based on patient's age to complete this topic HIB Vaccines Completed 05/21/2001, 05/23, 1997, Additional history exists IPV Vaccines Completed 05/21/2001, 10/21, 1997, Additional history exists Meningococcal Vaccine Aged Out 06/20/2010 No justen mery eligible based on patient's age to complete this topic Varicella Vaccines Completed 02/12/2018, 0 01/03/2017, 06/20/2010, Additional history exists Hepatitis A Vaccines Aged Out No long er eligible based on patient's age to complete this topic Rotavirus Vaccines Aged Out No longer eligible based on patient's age to complete this topic [id number]13[facility]43 [facility]w6575[facility]90-84 19:13:43 [facility]iqedd9335-03-56 02:02:14* Auth/Cert (Routine) Specialty Diagnoses / Procedures Referred By Contac t Referred To Contact Diagnoses Displaced trimalleolar fracture of right lower leg, initial encounter for closed fracture Displaced trimalleolar fracture right ankle, Status/Post external fixator fixation Procedures NC OPEN TX TRIMALLEOLAR ANKLE FX W/O FIXJ PST LIP NC REMOVAL EXTERNAL FIXATION SYSTEM UNDER ANES OPEN REDUCTION INTERNAL FIXATION , RIGHT ANKLE EXTERNAL FIXATION DEVICE REMOVAL, RIGHT ANKLE Dirk Gonzalez MD [address] [address] Phone: tel: fax: [facility] (Main Operating Room) [address] [place] [address] Phone: tel: Referral ID Status Reason Start Date Expiration Date Visits Re quested Visits Authorized [id number] 1 [id number] 02:02:14Scheduled Orders Health Maintenance Due Date Last Done Comments Lipid Panel 1997 Annual Physical 2000 HPV Vaccines (3 - 2-dose series) 12/21/2010 07/26/2010, 06/20/2010 Influenza Vaccine (#1) 2023 , 07/19/2021, 02/11/2019 Pap Smear 07/19/2024 07/19/2021 DTaP/Tdap/Td Vaccines (12 - Td or Tdap) 01/18/2032 01/17/2022, 06/29/2019, 12/17/2017, Additional history exists Hepatitis B Vaccines Completed 06/05/1999, 1997, 1997 Pneumococcal Vaccine: Pediatrics (0 to 5 Years) and At-Risk Patients (6 to 64 Years) Aged Out 06/05/1999, 1997, 1997, Additional history exists No longer eligible based on patient's age to complete this topic HIB Vaccines Completed 05/21/2001, 05/23, 1997, Additional history exists IPV Vaccines Completed 05/21/2001, 10/21, 1997, Additional history exists Meningococcal Vaccine Aged Out 06/20/2010 No justen mery eligible based on patient's age to complete this topic Varicella Vaccines Completed 02/12/2018, 0 01/03/2017, 06/20/2010, Additional history exists Hepatitis A Vaccines Aged Out No long er eligible based on patient's age to complete this topic Rotavirus Vaccines Aged Out No longer eligible based on patient's age to complete this topic [id number] 02:02:14 [id number] 02:02:14 [place] [id number] 07:56:32 Today's procedure cancelled due to edema at right ankle, [facility]ched[facility] for next week. [facility] Audit-C Score Answer Date of Assessment Author 2 02/09/2024 7:51 PM Hajji Lundberg RN * Intimate Partner Violence Question Answer Date of Assessment Author Within the last year, have y ou been humiliated or emotionally abused in other ways by your partner or ex-partner? No 02/09/2024 7:51 PM Hajji Lundberg RN Within the last year, have y ou been afraid of your partner or ex-partner? No 02/09/2024 7:51 PM Hajji Lundberg RN Within the last year, have y ou been raped or forced to have any kind of sexual activity by your partner or ex-partner? No 02/09/2024 7:51 PM Hajji Lundberg RN Within the last year, have y ou been kicked, hit, slapped, or otherwise physically hurt by your partner or ex-partner? No 02/09/2024 7:51 PM Hajji Lundberg RN * * Over the past 2 weeks, how often have you been bothered by any of the following problems? Question Answer Date of Assessment Author Little interest or pleasure in doing things Not at all 02/09/2024 9:00 PM Hajji Lundberg RN Feeling down, depressed, or hopeless Not at all 02/09/2024 9:00 PM Hajji Lundberg RN Patient Health Questionnaire -2 Score 0 02/09/2024 9:00 PM Hajji Lundberg RN * Calculated C-SSRS Risk Score (Lifetime/Recent) Answer Date of Assessment Author No Risk Indicated 02/09/2024 8:59 AM Cabrera Hernandez RN * In the past month, have you... Question Answer Date of Assessment Author Had nightmares about the maryuri nts or thought about the events when you did not want to? No 02/09/2024 9:00 PM Hajji Lundberg RN Tried hard not to think abou t the events or went out of your way to avoid situations that reminded you of the events? No 02/09/2024 9:00 PM Hajji Lundberg RN Been constantly on guard, watchful, or easily startled? No 02/09/2024 9:00 PM TEAT Hajji Mora RN [place] numb or detached from p eople, activities, or your surroundings? No 02/09/2024 9:00 PM TEAT Hajji Tidwell RN [place] guilty or unable to sto p blaming yourself or others for the events or any problems the events may have caused? No 02/09/2024 9:00 PM TEAT Hajji Mendes RN * [place] Suicide Severity Rating Scale (Screener/Recent Self-Report) Question Answer Date of Assessment Author 1. Wish to be (Past 1 Month) No 024 8:59 AM CDT Beatrice Hernandez RN 2. Non-Specific Active Suici fernando Thoughts (Past 1 Month) No 02/09/2024 8:59 AM CDT Yumiko Hernandez RN 6. Suicidal Behavior (Lifetime) No 8:59 AM CDT Beatrice Hernandez RN * Primary Care PTSD Score Question Answer Date of Assessment Author Primary Care PTSD Total Score 1 02/09/2024 9:00 PM CDT [facility]ajji Mendes [id number] 00:40:56Upcoming Encounters Pending Results Name Type Priority Associated Diagnoses Date /Time ECG 12 lead ECG Routine 02/17/2024 3: 11 PM CDT Scheduled Procedures Name Priority Associated Diagnoses Date/Ti me ORIF, ANKLE Displaced trimal leolar fracture of right lower leg, initial encounter for closed fracture 02/26/2024 7:35 AM TIMBER SURVEYOR REMOVAL, EXTERNAL FIXATION DEVICE Displaced trimalleolar fracture of right lower leg, initial encounter for closed fracture 02/26/2024 7:35 AM TIMBER SURVEYOR Health Maintenance Due Date Last Done Comments Lipid Panel 1997 HPV Vaccines (3 - 2-dose series) 12/21/2010 07/26/2010, 06/20/2010 Influenza Vaccine (#1) 2023 , 07/19/2021, 02/11/2019 Pap Smear 07/19/2024 07/19/2021 DTaP/Tdap/Td Vaccines (12 - Td or Tdap) 01/18/2032 01/17/2022, 06/29/2019, 12/17/2017, Additional history exists Hepatitis B Vaccines Completed 06/05/1999, 1997, 1997 Pneumococcal Vaccine: Pediatrics (0 to 5 Years) and At-Risk Patients (6 to 64 Years) Aged Out 06/05/1999, 1997, 1997, Additional history exists No longer eligible based on patient's age to complete this topic HIB Vaccines Completed 05/21/2001, 05/23, 1997, Additional history exists IPV Vaccines Completed 05/21/2001, 10/21, 1997, Additional history exists Meningococcal Vaccine Aged Out 06/20/2010 No justen mery eligible based on patient's age to complete this topic Varicella Vaccines Completed 02/12/2018, 0 01/03/2017, 06/20/2010, Additional history exists Hepatitis A Vaccines Aged Out No long er eligible based on patient's age to complete this topic Rotavirus Vaccines Aged Out No longer eligible based on patient's age to complete this topic [facility]cptcsw0060-11-57 00:40:56 [facility]ubkqf6390-16-06 00:40:56 [facility]Ddiuszn1824-58-59 15:49:09* [facility]zbvcsc3836-73-64 15:49:09* Audit- C Score Answer Date of Assessment Author 2 02/09/2024 7:51 PM Hajji Lundberg RN * Intimate Partner Violence Question Answer Date of Assessment Author Within the last year, have y ou been humiliated or emotionally abused in other ways by your partner or ex-partner? No 02/09/2024 7:51 PM Hajji Lundberg RN Within the last year, have y ou been afraid of your partner or ex-partner? No 02/09/2024 7:51 PM Hajji Lundberg RN Within the last year, have y ou been raped or forced to have any kind of sexual activity by your partner or ex-partner? No 02/09/2024 7:51 PM Hajji Lundberg RN Within the last year, have y ou been kicked, hit, slapped, or otherwise physically hurt by your partner or ex-partner? No 02/09/2024 7:51 PM Hajji Lundberg RN * * Over the past 2 weeks, how often have you been bothered by any of the following problems? Question Answer Date of Assessment Author Little interest or pleasure in doing things Not at all 02/09/2024 9:00 PM Hajji Lundberg RN Feeling down, depressed, or hopeless Not at all 02/09/2024 9:00 PM Hajji Lundberg RN Patient Health Questionnaire -2 Score 0 02/09/2024 9:00 PM Hajji Lundberg RN * Calculated C-SSRS Risk Score (Lifetime/Recent) Answer Date of Assessment Author No Risk Indicated 02/09/2024 8:59 AM Cabrera Hernandez RN * In the past month, have you... Question Answer Date of Assessment Author Had nightmares about the maryuri nts or thought about the events when you did not want to? No 02/09/2024 9:00 PM Hajji Lundberg RN Tried hard not to think abou t the events or went out of your way to avoid situations that reminded you of the events? No 02/09/2024 9:00 PM Hajji Lundberg RN Been constantly on guard, watchful, or easily startled? No 02/09/2024 9:00 PM Hajji Burns RN [place] numb or detached from p eople, activities, or your surroundings? No 02/09/2024 9:00 PM Hajji Calle RN [place] guilty or unable to sto p blaming yourself or others for the events or any problems the events may have caused? No 02/09/2024 9:00 PM CDT Hajji Mendes RN * [place] Suicide Severity Rating Scale (Screener/Recent Self-Report) Question Answer Date of Assessment Author 1. Wish to be (Past 1 Month) No 024 8:59 AM CDT Beatrice Hernandez RN 2. Non-Specific Active Suici fernando Thoughts (Past 1 Month) No 02/09/2024 8:59 AM CDT Yumiko Hernandez RN 6. 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 Evaluated by ortho; underwent ex fix placement. No post operative complications. Evaluated by PT/OT. Patient stable for discharge home with a planned readmission within 30 days for definitive fixation. PHYSICAL EXAM GENERAL: chatting with mom PROCEDURES ex fix placement to right ankle DISCHARGE MEDICATIONS New HYDROcodone-acetaminophen ([place]) 5-325 MG tablet - 1 tablet Every 4 hours PRN ibuprofen 800 MG tablet - 800 mg 3 times daily methocarbamol (Robaxin) 500 MG tablet - 500 mg 3 times daily PRN Continued B Complex Vitamins (VITAMIN B COMPLEX PO) MAGNESIUM GLYCINATE PO ACTIVITY No weight bearing right lower extremity; keep elevated DIET Regular DISCHARGE INSTRUCTIONS - please take aspirin 81 mg twice a day for 3 weeks to prevent blood clots - Narcotics cause constipation; please take laxatives as long as you are taking them FOLLOW UP Cara for post op visit DISPO Home [1] TIME SPENT ON DISCHARGE 30 minutes spent on patient/family education, medication review and discharge paperwork [id number] 15:49:09* Angie Becerra, OT - 02/10/2024 3:17 PM CDT Evaluation and Treatment Patient Name: Allie Martin Today's Date: 02/10/2024 Preferred Language: Spanish Assessment & Plan Pt seen today for initial OT evaluation. Overall, pt tolerated session well. Pt is performing below baseline of IND. Pt previously living in [facility] with and 4 young children. Pt has assistance from family at home. Pt required limited assistance for bed mobility, functional transfers, and functional mobility (SPV/SBA). Pt required increased assistance for LB dressing (MOD A). Pt amenable to education on DME for toileting and compensatory strategies for toilet transfers in lieu of not having equipment at home. Pt may benefit from follow up OT session to practice LB dressing in preparation for discharge home. Assessment: OT Assessment Results: Impaired ADL status, Impaired endurance, Impaired functional mobility Prognosis: Good Barriers to Discharge: Medical diagnosis Evaluation/Treatment Tolerance: Patient limited by fatigue, Patient limited by pain Medical Staff Made Aware: Yes Strengths: Ability to acquire knowledge, Coping skills, Premorbid level of function, Support of extended family/friends, Support and attitude of living partners Plan: Treatment Plan/Goals Established with Patient/Caregiver: Yes OT Plan: Skilled OT OT Frequency: Follow-up visit only OT Discharge Recommendations: Home independent (with family assistance) Equipment Recommended: Walker- rolling, Toilet seat-elevated OT - OK to Discharge: Yes OT Planned Treatments: Activities of Daily Living, Energy conservation training, Therapeutic activities Duration: Discharge Therapy discharge recommendations are made by determining the patient's prior level of function, assessing current function level and establishing rehab potential. The overall discharge plan may be affected by input from Physicians, Care Coordination, medical condition/status, family support and insurance benefits. Subjective "My leg doesn't really hurt. It feels irritated." Current Problem: Per EMR: Pt is 28 y/o female with PFO, paroxysmal afib not on meds and mood d/o admitted with right ankle fracture secondary to mechanical fall. Evaluated by ortho; underwent ex fix placement (02/08). No post operative complications. Evaluated by PT/OT. Patient stable for discharge home with a planned readmission within 30 days for definitive fixation. Pain: 410 Objective General Visit Information: Family/Caregiver Present: Yes Others Present: mother Precautions: UE Weight Bearing Status: FWB LE Weight Bearing Status: NWB RLE Cognition: Overall Cognitive Status: Within Functional Limits Behavior/Cognition: Alert, Cooperative Orientation Level: Oriented X4 Home Living: Type of Home: House Lives With: Spouse (4 young children) Home Layout: One level Bathroom Shower/Tub: Walk-in shower Bathroom Toilet: Handicapped height Prior Function: Level of [place]: Other (Comment) (IND with ambulation) ADL Assistance: Independent Prior Function Comments: IND with ADLs and functional mobility with no use of RW Social History: Social History Source: Patient Prior Level of Function: IND with ADLs and not using AD for functional mobility Current Level of Function: SPV for funcitonal transfers/functional mobility and MIN A for LB dressing Patient Roles: Caregiver for child OT General Assessments: Activity Tolerance Endurance: F+ 16-20 min w/o a rest period with above s/s Sitting Balance: Independent Coordination Movements are Fluid and Coordinated: Yes Finger to Nose: Left intact, Right intact Hand Function Gross Grasp: Functional Coordination: Functional Extremity Assessments: RUE Assessment RUE Assessment: Within Functional Limits LUE Assessment LUE Assessment: Within Functional Limits Treatment: RN ricardo'd session. Pt received sitting up in chair with mother at /s. Pt agreeable to OT session. Obtained PLOF. Assessed BUE ROM/MMT and coordination. Pt doffed/donned L sock with IND. Pt simulated LB dressing for RLE with MOD A. Pt performed STS transfer with SPV and RW. Pt ambulated to bathroom with SPV and RW. Pt performed toilet transfer with SBA and use of grab bars. Pt states she does not have grab bars at home. Educated pt on benefits of elevated toilet seat with handles for toilet transfers. Informed pt she could use tank of toilet for support when performing toilet transfers in case equipment not available at home. Mother at / states that elevated toilet seat purchased for home. Pt verbalized understanding. Pt ambulated to sink and performed hand hygiene with SPV while seated. Pt performed oral care with S/U while seated. Pt returned to standing and ambulated back to chair at b/s. Pt remained sitting up in chair with mother at b/s at conclusion of session. All needs within reach. RN notified. Self-Care: Self Care/Home Management (ADLs) Time Entry: 20 Eating Assistance: Independent Grooming Assistance: Independent Bathing Assistance: Partial/Mod assistance UE Dressing Assistance: Setup/clean-up assistance LE Dressing Assistance: Partial/Mod assistance Toileting Assistance: Supervision/touching assistance Bed Mobility: Bed Mobility 1 Bed Mobility Comments 1: Pt received sitting up in chair. Transfers: Transfers Transfer: Yes Transfer 1 Level of Assistance 1: Supervision/touching assistance Trials/Comments 1: NWB RLE Transfer To/From: Qrv-rc-Gqmyl/Eyezy-do-Jln Assistive Devices And Adaptive Equipments: Walker, front-wheeled AM-PAC Daily Activity: Putting on and taking off regular lower body clothing: A Little Bathing (including washing, rinsing, drying): A Little Toileting, which includes using toilet, bedpan or urinal: A Little Putting on and taking off regular upper body clothing: None Taking care of personal grooming such as brushing teeth: None Eating Meals: None AM-PAC Daily Activity Raw Score: 21 Patient Education: Education Documentation Occupational Therapy Plan of Care, taught by Angie Becerra OT at 02/10/2024 3:16 PM. Learner: Patient Readiness: Acceptance Method: Explanation Response: Verbalizes Understanding Education Comments No comments found. Goals: Encounter Goals Encounter Goals (Active) Pt will perform LB dressing with MOD I while seated, using AE as needed. Start: 02/10/24 Expected End: 02/24/24 Pt will perform grooming/hygiene activities with MOD I while standing at sink. Start: 02/10/24 Expected End: 02/24/24 Treatment Note: If this is the last documented treatment, then it will signify discharge from acute care prior to discharge from the therapy service and will serve as the discharge summary. Angie Becerra OT * Julia Cisneros, PT - 02/10/2024 1:48 PM CDT Evaluation and Treatment Note Patient Name: Allie Martin Today's Date: 02/10/2024 Preferred Language: Spanish Assessment & Plan 28 y/o female with PFO, paroxysmal afib not on meds and mood d/o admitted with right ankle fracture secondary to mechanical fall. Evaluated by ortho; underwent ex fix placement. No post operative complications. Patient stable for discharge home with a planned readmission within 30 days for definitive fixation PLOF - Pt was INDEP prior to admit living with spouse and 4 kids in [facility]. Pt mom will assist her at DC. Pt has crutches at home. CLOF- Pt is A&Ox4, cooperative and eager to return home. Reviewed NWB status on R LE. Pt is INDEP with bed mob, MOD I with transfers and gait with RW NWB LE. Pt will need RW, WC for long distances and shower chair at DC. Pt clear for DC from PT standpoint. PT to sign off. Assessment: Prognosis: Excellent Evaluation/Treatment Tolerance: Patient tolerated treatment well Medical Staff Made Aware: Yes Strengths: Ability to acquire knowledge Plan: Treatment Plan/Goals Established with Patient/Caregiver: Yes Treatment/Interventions: Balance training, Bed mobility training, Caregiver training, Functional activities, Gait training, Positioning, Patient education, Therapeutic exercises, Transfer training PT Plan: No skilled PT PT Discharge Recommendations: Home independent Equipment Recommended: (RW, WC, shower chair) PT Recommended Transfer Status: Stand by assist PT- Okay to Discharge from Therapy: Yes Therapy discharge recommendations are made by determining the patient's prior level of function, assessing current function level and establishing rehab potential. The overall discharge plan may be affected by input from Physicians, Care Coordination, medical condition/status, family support and insurance benefits. Subjective " I walked with crutches when I sprained my L ankle but the walker is much easier. Pain: 06/29 Vital Signs: Patient Vitals for the past 24 hrs: BP MAP (mmHg) Pulse Resp SpO2 Patient Activity During SpO2 Measurement 02/10/24 1204 -- -- 66 17 100 % -- 02/10/24 1204 120/70 87 -- -- -- -- 02/10/24 0738 -- -- 67 16 98 % -- 02/10/24 0738 111/70 84 -- -- -- -- 02/10/24 0439 -- -- 74 -- 99 % -- 02/10/24438 106/52 70 -- -- -- -- 02/10/24 0018 -- -- 72 -- 97 % -- 02/10/2417 135/80 98 -- -- -- -- 02/09/242016 -- -- 77 -- 96 % -- 02/09/242016 132/76 95 -- -- -- -- 02/09/24 1830 138/83 103 63 14 96 % -- 02/09/24 1815 136/85 106 79 13 97 % -- 02/09/24 1800 -- -- 61 14 97 % -- 02/09/24 1745 144/70 101 83 17 98 % -- 02/09/24 1730 137/72 97 58 17 100 % -- 02/09/24 1715 151/70 101 72 19 100 % -- 02/09/24 1701 (!) 143/100 -- 73 14 100 % -- 02/09/24 1700 141/87 109 79 16 100 % -- 02/09/24 1500 126/72 -- 87 16 -- At rest Home Living: Type of Home: House Lives With: Spouse Home Adaptive Equipment: Crutches Home Layout: One level Home Access: Level entry Prior Level of Function: Receives Help From: Family Prior Function Comments: INDEP prior to admit Objective Precautions: UE Weight Bearing Status: FWB LE Weight Bearing Status: NWB RLE Cognition:Orientation Level: Oriented X4 General Assessments:Activity Tolerance Activity Tolerance Endurance: Tolerates 10 - 20 min exercise with multiple rests Sitting Balance: Supports self independently with both upper extremities Sensation SensationLight Touch: RLE Intact, LLE Intact Balance- SittingStatic Sitting-Balance Support: No upper extremity supported Level of Assistance: Independent Balance- Standing Functional Assessments: ADL Bed Mobility Bed Mobility 1:Level of Assistance 1: Independent Bed Mobility To/From: Supine to sit on EOB Assistive Devices And Adaptive Equipments: No device Transfers Transfers 1:Technique 1: Stand step Level of Assistance 1: Setup/clean-up assistance Trials/Comments 1: NWB R LE ex fix Transfer To/From: Uqr-hr-Cjsrc/Nbhbz-ft-Ihi Assistive Devices And Adaptive Equipments: Walker, front-wheeled Transfers 2:Technique 2: Stand pivot Level of Assistance 2: Setup/clean-up assistance Trials/Comments 2: 1 Transfer To/From: Toilet Assistive Devices And Adaptive Equipments: Walker, front-wheeled Gait Gait Training Activity 1: Distance (enter in feet): 15 ft x reps Assistive Devices And Adaptive Equipments: Walker, front-wheeled Level of Assistance 1: Setup/clean-up assistance Gait Training Activity 1 Comment: MOD I CATALINO R LE Extremity Assessments:RLE Assessment RLE Assessment: (WFL except R ankle) LLE AssessmentLLE Assessment: Within Functional Limits Activity Tolerance:Endurance: Tolerates 10 - 20 min exercise with multiple rests Sitting Balance: Supports self independently with both upper extremities CognitionOrientation Level: Oriented X4 TreatmentTherapeutic exercise: B LE AROM Ex 10 reps except R ankle with ex fix Therapeutic activity: Bed Mobility 1: Level of Assistance 1: Independent Bed Mobility To/From: Supine to sit on EOB Assistive Devices And Adaptive Equipments: No device Transfers 1: Technique 1: Stand step Level of Assistance 1: Setup/clean-up assistance Trials/Comments 1: NWB R LE ex fix Transfer To/From: Bwq-ba-Rzaqw/Iqaka-gk-Mge Assistive Devices And Adaptive Equipments: Walker, front-wheeled Transfers 2:Technique 2: Stand pivot Level of Assistance 2: Setup/clean-up assistance Trials/Comments 2: 1 Transfer To/From: Toilet Assistive Devices And Adaptive Equipments: Walker, front-wheeled Gait training: Gait Training Activity 1: Distance (enter in feet): 15 ft x reps Assistive Devices And Adaptive Equipments: Walker, front-wheeled Level of Assistance 1: Setup/clean-up assistance Gait Training Activity 1 Comment: MOD I NWB R LE AM-PAC Basic Mobility:Turning in bed without bedrails: None Lying on back to sitting on edge of flat bed: None Bed to chair: None Standing up from chair: A Little Walk in room: A Little Climbing 3-5 stairs: A Little Mobility Inpatient Raw Score: 21 JH-HLM Goal: 6 Walked 25 feet or more (i.e. walked outside of room) Patient Education:Education Documentation No documentation found. Education Comments No comments found. Treatment Note: If this is the last documented treatment, then it will signify discharge from acute care prior to discharge from the therapy service and will serve as the discharge summary. Julia Cisneros PT * Gabriele Yousif MD - 02/10/2024 8:00 AM CDT ORS Trauma Progress Note S: Patient resting comfortably in bed. No acute events overnight. O: Vitals: 02/10/24 0439 02/10/24 0738 02/10/24 0738 02/10/24 0738 BP: 111/70 Pulse: 74 67 Resp: 16 Temp: 36.7 ?C (98 ?F) SpO2: 99% 98% Exam: Gen: NAD, A&Ox3, laying in bed Resp: CLOVER, equal chest expansion bilaterally CV: RRR, peripheral vascular exam as documented below RLE Compartments soft, compressible. dressings c/d/i. Ex-Fix in place SILT in SP/DP/Tib distributions. EHL/FHL 2+ DP/PT palpable pulses, cap refill <2s in all toes. Assessment: 28 y.o. female s/p R ankle Ex-Fix, POD 1. Plan: - Weight bearing status: RLE NWB - Pain control per primary - DVT PPx: TEDS, SCDs, and okay for DVT chemoppx per primary - PT/OT Dispo: - Okay to DC home from ORS perspective when pt has finished post-op abx, has pain controlled with PO pain meds and clears PT/OT. Please follow up with Dr. Dirk Gonzalez in 1 weeks. Call [phone] for appt. - Patient is clear for dc from an ORS perspective with follow up as stated in the environmental consultant clearance note. Please call [phone]) with questions regarding patients orthopedic care Gabriele Yousif MD [facility] 02/10/24 8:00 AM * Jorge Francis MD - 02/09/2024 7:02 AM CDT ORS Brief Note To OR today 02/09/24 w/ ORS for Ex-fix R ankle Keep NPO Tonja Latif MD [facility] PGY-5 Pager [phone] [id number] 15:49:09Pending Results Scheduled Orders Name Type Priority Associated Diagnoses Order Schedule POCT Glucose Point of Care Testing - Docked Device Routine Every 15 minutes as needed until discontinued starting 02/09/2024 POCT Glucose Point of Care Testing - Docked Device Routine Every 15 minutes as needed until discontinued starting 02/09/2024 POCT Glucose Point of Care Testing - Docked Device Routine 3 times daily before meals (Lab) for 30 Days starting 02/09/2024 until 03/10/2024, 1 completed Incentive spirometry Respiratory Care Routine As needed until discontinued starting 02/09/2024 Health Maintenance Due Date Last Done Comments Lipid Panel 1995 HPV Vaccines (3 - 2-dose series) 12/21/2010 07/26/2010, 06/20/2010 Influenza Vaccine (#1) 2023 , 07/19/2021, 02/11/2019 Pap Smear 07/19/2024 07/19/2021 DTaP/Tdap/Td Vaccines (12 - Td or Tdap) 01/18/2032 01/17/2022, 06/29/2019, 12/17/2017, Additional history exists Hepatitis B Vaccines Completed 06/05/1999, 1997, 1997 Pneumococcal Vaccine: Pediatrics (0 to 5 Years) and At-Risk Patients (6 to 64 Years) Aged Out 06/05/1999, 1997, 1997, Additional history exists No longer eligible based on patient's age to complete this topic HIB Vaccines Completed 05/21/2001, 05/23, 1997, Additional history exists IPV Vaccines Completed 05/21/2001, 10/21, 1997, Additional history exists Meningococcal Vaccine Aged Out 06/20/2010 No justen mery eligible based on patient's age to complete this topic Varicella Vaccines Completed 02/12/2018, 0 01/03/2017, 06/20/2010, Additional history exists Hepatitis A Vaccines Aged Out No long er eligible based on patient's age to complete this topic Rotavirus Vaccines Aged Out No longer eligible based on patient's age to complete this topic [id number] 15:49:09 [place] [id number] 15:49:09 Diagnosis Ankle fracture, right, close d, initial encounter - Primary Ankle fracture, right, close d, initial encounter Morbid obesity (HCC) Morbid obesity SKINNY (generalized anxiety disorder) Generalized anxiety disorder MDD (major depressive disord er) Vitamin B6 deficiency Paroxysmal A-fib (CMS/HCC) ( HCC) PFO (patent foramen ovale) Ostium secundum type atrial septal defect Preop examination Unspecified pre-operative examination Leukocytosis Leukocytosis, unspecified [id number] 15:49:09 [facility]wfmnej7989-37-67 13:44:23 Message sent to Pharmacy: Joie Patrick, I was waiting on the cefazolin so it was given at 10 am. The pt is waiting to dc till after her last dose. When is the earliest I can give it? It is scheduled for 3 pm right now Pharmacy response: 3 pm is the earliest. [facility] [id number] 13:43:30 The patient is Moderately Stable - Low risk of patient condition declining or worsening The patient's goals for the shift include pain control The clinical goals for the shift include pain control and safetyy Over the shift, the patient did not make progress toward the following goals. Barriers to progression include pain . Recommendations to address these barriers include pain control. [facility]qc[facility]vi0012-84-84 11:34:49 Images from the original note were not included. Hydrocodone and Acetaminophen - Video Understand how Hydrocodone and Acetaminophen work to help you manage pain. Also, understand the possible side effects to be aware of and how to properly use and store these medications. To view the video go to this web address: https://bit.[email or web address]/[email or web address] Or, scan this QR code with your smart phone ? [facility] Yvan RocheItoigss6731-27-81 11:34:02 Images from the original note were not included. [id number] Understanding Ankle Fracture Open Reduction and Internal Fixation Open reduction and internal fixation (ORIF) puts the pieces of a broken bone back together so they can heal. Open reduction means the bones are put back in place during a surgery through an open incision. Internal fixation means that special hardware is used to hold the bone pieces together. This helps the bone heal correctly. The procedure is done by an orthopedic surgeon. This is a doctor with special training in treating bone, joint, and muscle problems. How does an ankle fracture happen? Three bones make up the ankle joint. These are the shinbone (tibia), the smaller bone in your leg (fibula), and a bone in your foot (talus). Different kinds of injury can damage the lower tibia, lower fibula, or talus. In some cases, only one of these bones might break. Or you may have a break in two or more of these bones. The bones may break, but the pieces are still lined up correctly. Or they may be broken and not lined up correctly. Why is an ankle fracture ORIF done? You are more likely to need ORIF if: ? The bones of your leg are out of alignment ? One or more bones broke through the skin ? Your bones broke into several pieces ? Your ankle is unstable How is an ankle fracture ORIF done? During an open reduction, the bone pieces are put back in their proper alignment. The bones are then connected back in place with hardware. This is called internal fixation. The hardware may include screws, plates, rods, wires, or nails. Examples of internal fixation hardware. What are the risks of ankle fracture ORIF? All surgery has risks. The risks of ankle fracture ORIF include: ? Infection ? Bleeding ? Nerve damage ? Damage to blood vessels or tendons ? Skin complications ? Misaligned bone or bone that does not heal ? Blood clots ? Fat embolism ? Irritation of the area from the hardware ? Arthritis ? Problems from anesthesia ? Need for more surgery Your risks vary based on your age and general health. For example, if you are a smoker or if you have low bone density, you may have a higher risk for certain problems. People with poorly controlled diabetes may also have a higher risk for problems. Talk with your healthcare provider about which risks apply most to you. Last Reviewed Date: 2021 00:00:00 ? 1997-7134 [employer]. All rights reserved. This information is not intended as a substitute for professional medical care. Always follow your healthcare professional's instructions. [facility]2024-10-21 01:09:38 The patient is Moderately Stable - Low risk of patient condition declining or worsening The patient's goals for the shift include pain control The clinical goals for the shift include pain control and safetyy Over the shift, the patient did not make progress toward the following goals. Barriers to progression include none. Recommendations to address these barriers include medication administartion. [facility]2024-10-20 12:51:33 Patient arrived to floor. T [facility] [id number] 16:35:00 Attempted to contact patient to discuss. T Tamiko Cis[facility]os [facility] HospitalGkksga2839-53-76 13:46:50 Images from the original note were not included. Requested Renewals dicyclomine 10 mg capsule Sig: Take 1 capsule by mouth 2 (two) times daily as needed for Abdominal pain. Disp: 14 capsule Refills: 0 Start: 12/25/2023 Class: eRX For: Generalized abdominal pain Last ordered: 2 months ago (10/23/2023) by TARA Chapman Patient comment: N/a [employer] Wuualc5412/25/2023 01:41 PM Protocol Details Valid encounter within last 12 months To be filled at: [facility] [phone] Recent Visits Date Type Provider Dept 10/23/23 Office Visit Anna Hearn PA [facility] 09/10/23 Office Visit Anna Hearn PA [facility] 08/29/23 Office Visit Anna Hearn PA [facility] Showing recent visits within past 540 days with a meds authorizing provider and meeting all other requirements Future Appointments No visits were found meeting these conditions. Showing future appointments within next 150 days with a meds authorizing provider and meeting all other requirements Tatyana Vera [facility]2024-08-31 23:13:24 Pt given printed and verbal discharge instructions regarding palpations, and hypomagnesemia, encouraged hydration, Pt verbalized understanding of instructions, pt awake alert oriented, resp reg unlabored, skin w/d, color appropriate for race, moves all ext well,pt encouraged to follow up with pcp Advised to seek medical attention for new/prolonged/worsening of symptoms No adverse reaction to meds given in ER noted upon discharge PIV d'cd, dressing to site, catheter in tact. Awake, alert oriented, resp reg unlabored, skin w/d, pt leaving amb with steady gait, in no apparent distress, Miriam Medina [facility] [id number] 20:34:30 Summary: Triage CC: patient states she has a-fib and she was feeling bad yesterday and went to [employer] and was told it was from her headache and gave her meds and sent her home. Patient states that the palpations are coming and going. Pateint states she just does not feel good no SOB and no chest pain PMHx: a-fib PSH: MEDS:none LMP: 12/07/23 Tetanus: UTD Awake, alert, oriented, resp reg unlabored, skin warm, color appropriate for race, moves all ext without difficulty, amb with out assistance Appears in no distress Aye Butterfield [facility] - [id number] 20:30:00 Associated Order(s): EKG-12 Lead ROUTINE ONCE Pre-Procedure Diagnose(s): Palpitations Post-Procedure Diagnose(s): Palpitations [facility] Emergency Department Note Patient Name: Allie Martin Date of : 1995 28 year old female Treatment Room: [place] [address] Primary Care Physician: PATIENT DOES NOT HAVE A PCP Patient Escorted by: Self [9] Mode of Arrival: Personal means [1] EMS Treatment Prior to ED Arrival: G[facility] LEAK TESTER treatment: None Travel and Exposure Screening: Symptoms Does patient have any of these symptoms?: (not recorded) Exposure Screening Has patient had contact with someone with a communicable disease in the last month?: (not recorded) Diseases exposed to:: (not recorded) Is Patient ?: (not recorded) Exposure Date: (not recorded) Chief Complaint: Chief Complaint Patient presents with Palpitations History of Present Illness: The patient presents from home for evaluation for feeling palpitations on and off since yesterday. She reports they come and go spontaneously. No nausea or vomiting. No fevers or chills. She reports a history of atrial fibrillation in the past but does not require any medications for this. She does follow with cardiology here at [facility] and last saw them last month. No use of caffeinated products. She does not work. She does feel to be eating and drinking enough for the weather. Here for evaluation. Past Medical History/Immunizations: Past Medical History: Diagnosis Date Anemia of mother in , antepartum 01/14/2018 Anxiety 08/29/2023 Anxiety disorder, unspecified Atrial fibrillation Gestational hypertension, third trimester 11/15/2016 Screening for cystic fibrosis 2016 NEGATIVE Trichomonal vaginitis during in first trimester 04/19/2016 Vitamin B6 deficiency Tetanus received in last 5 years: Yes Allergies: No Known Allergies Past Social History: Tobacco Use Never smoked or used smokeless tobacco. Vaping Use Never used Alcohol Use No. Drug Use No. Sexual Activity Sexually active; Partners: Male; Control/Protection: None. Past Surgical History: Past Surgical History: Procedure Laterality Date SECTION N/A 02/26/2022 Surgeon: Elliot Gould MD; Location: [facility]OR [facility] DELIVERY OR LOCATION Review of Systems: Review of Systems Constitutional: Negative for chills and fever. Respiratory: Negative for cough and shortness of breath. Cardiovascular: Positive for palpitations. Gastrointestinal: Negative for abdominal pain, nausea and vomiting. Genitourinary: Negative for dysuria. Musculoskeletal: Negative for arthralgias, neck pain and neck stiffness. Skin: Negative for wound. Neurological: Negative for dizziness. Psychiatric/Behavioral: Negative for agitation. Endocrine: Negative for goiter. Physical Exam: ED Triage Vitals [12/21/232036] Weight 105.3 kg (232 lb 3.2 oz) Actual or estimated Actual Height 1.676 m (5' 6") BP (!) 151/94 Pulse 88 Resp 16 Temp 36.6 ?C (97.9 ?F) Temp source Oral SpO2 100 % Measured on Room air Physical Exam Vitals and nursing note reviewed. Constitutional: Appearance: Normal appearance. She is obese. HENT: Head: Normocephalic and atraumatic. Mouth/Throat: Mouth: Mucous membranes are dry. Eyes: Extraocular Movements: Extraocular movements intact. Conjunctiva/sclera: Conjunctivae normal. Comments: Conjunctiva are pink bilaterally Cardiovascular: Rate and Rhythm: Normal rate and regular rhythm. Pulses: Normal pulses. Pulmonary: Effort: Pulmonary effort is normal. No respiratory distress. Breath sounds: No stridor. No wheezing or rhonchi. Abdominal: General: There is no distension. Palpations: There is no mass. Tenderness: There is no abdominal tenderness. There is no guarding or rebound. Hernia: No hernia is present. Musculoskeletal: General: Normal range of motion. Cervical back: Normal range of motion and neck supple. Skin: General: Skin is warm and dry. Neurological: General: No focal deficit present. Mental Status: She is alert and oriented to person, place, and time. Radiology: No orders to display Lab Results: Lab Results CBC WITH DIFF - Abnormal Result Value Ref Range WBC 9.52 4.30 - 11.10 10*3/?L RBC 4.25 3.93 - 5.25 10*6/?L HGB 12.0 11.6 - 15.0 g/dL HCT 36.2 35.7 - 45.2 % MCV 85.2 80.6 - 95.5 fL MCH 28.2 25.9 - 32.8 pg MCHC 33.1 31.6 - 35.1 g/dL RDW-SD 40.3 39.0 - 49.9 fL RDW-CV 13.2 12.0 - 15.5 % PLT 292 166 - 358 10*3/?L MPV 9.8 9.5 - 12.9 fL NRBC/100 WBC 0.0 0.0 - 10.0 /100 WBCs NRBC x103<0.01 10*3/?L GRAN MAT (NEUT) % 56.6 % IMM GRAN % 0.30 % LYMPH % 35.6 % MONO % 6.7 % EOS % 0.6 % BASO % 0.2 % GRAN MAT x103(ANC) 5.38 1.88 - 7.09 10*3/uL IMM GRAN x1030.03 0.00 - 0.06 10*3/uL LYMPH x1033.39 (*) 1.32 - 3.29 10*3/uL MONO x1030.64 0.33 - 0.92 10*3/uL EOS x1030.06 0.03 - 0.39 10*3/uL BASO x103<0.03 0.01 - 0.07 10*3/uL COMP. METABOLIC PANEL (36291) - Abnormal NA 140 135 - 145 mmol/L K 3.5 3.5 - 5.0 mmol/L CL 104 98 - 108 mmol/L CO2 TOTAL 26 23 - 31 mmol/L AGAP 10 2 - 16 BUN 7 7 - 23 mg/dL GLUCOSE 97 70 - 110 mg/dL CREATININE 0.58 0.50 - 1.04 mg/dL TOTAL BILI 1.7 (*) 0.1 - 1.1 mg/dL CALCIUM 9.5 8.6 - 10.6 mg/dL T PROTEIN 7.7 6.3 - 8.2 g/dL ALBUMIN 4.3 3.5 - 5.0 g/dL ALK PHOS 78 34 - 122 U/L ALTv 16 5 - 35 U/L AST(SGOT) 30 13 - 40 U/L eGFR 128.2 mL/min/1.73m2 MAGNESIUM - Abnormal MAGNESIUM 1.6 (*) 1.7 - 2.4 mg/dL URINALYSIS - Abnormal APPEARANCE Cloudy (*) Clear COLOR Yellow Yellow PH 5.0 4.8 - 8.0 SP GRAVITY 1.019 1.003 - 1.030 GLU U QUAL Normal Normal BLOOD Negative Negative KETONES Negative Negative PROTEIN Negative Negative UROBILIN Normal Normal BILIRUBIN Negative Negative NITRITE Negative Negative LEUK EVELIA 75/uL (*) Negative RBC/HPF 5 (*) 0 - 3 HPF WBC/HPF 5 0 - 5 HPF BACTERIA Few (*) Negative MUCOUS Moderate (*) Negative LPF SQ EPITH 22 HPF HYAL CAST 1 <=2 LPF THYROID STIMULATING HORMONE - Normal TSH 1.75 0.45 - 4.70 mIU/L FREE T3 - Normal FREE T3 4.20 2.77 - 5.27 pg/mL FREE T4 - Normal FREE T4 1.37 0.78 - 2.20 ng/dL: POCT TEST - Normal POCT PREG Negative On board controls acceptable with C Line Yes POCT PREG LOT # [id number] POCT PREG TEST DATE 2024-08-29 EKG: If EKG completed, see Procedure Note. Orders and Treatments: Orders Placed This Encounter Procedures CBC WITH DIFF COMP. METABOLIC PANEL (35648) Magnesium Thyroid Stimulating Hormone FREE T3 Free T4 POCT TEST URINALYSIS Orders Placed This Encounter Medications NaCl 0.9% (NS) bolus infusion 1,000 mL magnesium sulfate in water 2 gram/50 mL (4 %) infusion 2 g famotidine (PEPCID (PF)) injection 20 mg First Provider Eval: ED Events Date/Time Event User Comments 12/21/232040 Medical Screening Begins MELISSA SAMS DO -- 12/21/232040 First Provider Evaluation MELISSA SAMS DO -- ED COURSE Diagnosis/Impression as of 12/21/23 2302 Palpitations Hypomagnesemia Procedures: EKG-12 Lead ROUTINE ONCE Date/Time: 12/21/2023 8:57 PM Performed by: Melissa Sams DO Authorized by: Melissa Sams DO ECG interpreted by ED Physician in the absence of a crossband layer: yes Interpretation: Interpretation: normal Rate: ECG rate: 90 ECG rate assessment: normal Rhythm: Rhythm: sinus rhythm Ectopy: Ectopy: none QRS: QRS axis: Normal QRS intervals: Normal ST segments: ST segments: Normal T waves: T waves: normal Q waves: Abnormal Q-waves: not present MDM: Medical Decision Making The patient presents from home for evaluation for episodes of palpitations has been having since yesterday. She reports that the palpitations come and go at random. She does report a history of atrial fibrillation since she was a child but does not take any medication for this. She does follow with cardiology here at [facility]. No nausea or vomiting. No fevers or chills. She has been eating and drinking well. She denies any use of caffeinated beverages or products. Vital signs are stable in the ER. The patient is obese. She has dry mucous membranes. Her conjunctiva are pink bilaterally. Her EKG shows a normal sinus rhythm, no STEMI. Will monitor the patient on telemetry to eval for any possible arrhythmias. Will also check laboratory studies including her electrolytes and thyroid panel. Final disposition pending. 230 - the patient is doing well here in the EC. Labs show low magnesium level which was replaced. Thyroid studies are unremarkable. She had no arrhythmias noted while on telemetry. She reports she has only been eating chicken and maria teresa recently and no other fruits/vegetables. Recommend she take a magnesium supplement daily. She remains stable here in the EC and is ok for dc home with pcp f/u. Problems Addressed: Hypomagnesemia: acute illness or injury Palpitations: acute illness or injury Amount and/or Complexity of Data Reviewed Labs: ordered. Decision-making details documented in ED Course. ECG/medicine tests: ordered and independent interpretation performed. Decision-making details documented in ED Course. Risk OTC drugs. Prescription drug management. Flowsheet Documentation: Scoring Tools: No data recorded Disposition/Condition: ED Disposition ED Disposition Disch - Home Condition Stable Comment -- Discharge Medications: Patient's Medications START taking these medications No medications on file CONTINUE taking these medications which have NOT CHANGED BUSPIRONE 5 MG TABLET Take 1 tablet by mouth 2 (two) times daily as needed (anxiety). DICYCLOMINE 10 MG CAPSULE Take 1 capsule by mouth 2 (two) times daily as needed for Abdominal pain. MAGNESIUM GLYCINATE ORAL Take by mouth. VITAMIN B COMPLEX (BALANCED B COMPLEX ORAL) Take by mouth. START taking Modified Medications as Prescribed No medications on file STOP taking these medications No medications on file Follow-up: Electronically signed by: Melissa Sams DO 12/21/232301 [facility] - [id number] 23:45:00 [facility] ([facility] EMERGENCY PROVIDER REPORT REPORT#:[id number] REPORT STATUS: Signed DATE:11/28/23 TIME: 2344 PATIENT: ALLIE MARTIN UNIT #: [id number] ROOM/BED: AGE: 28 SEX: F PCP PHYS: Danyell Arvizu MD SERVICE AUTHOR: Yves Membreno FAX MACHINE REPAIRER * ALL edits or amendments must be made on the electronic/computer document * Yves Membreno 11/28/232344: HPI-Dizziness/Weakness Free Text HPI Notes Free Text [...] 16 11/27 2013 Pulse Ox 99 11/28 0156 Last Documented: Result Date Time Pulse Ox 99 11/28 0156 B/P 148/78 11/28 0156 B/P Mean 101 11/28 0156 O2 Delivery Room air 11/28 015 Pulse 87 11/28 0156 Resp 16 11/286 Temp 98.2 11/27 2013 Review of Vital [...] (Auto) (14.0 - 32.0 %) 37.4 H [place] % (Auto) (4.8 - 9.0 %) 6.7 Eos % (Auto) (0.3 - 3.7 %) 1.0 Baso % (Auto) (0.0 - 2.0 %) 0.2 Neut # (Auto) (2.0 - 7.6 x10 3/uL) 7.12 Lymph # (Auto) (1.0 - 3.8 x10 3/uL) 4.90 H [place] # (Auto) (0.1 - 0.8 x10 3/uL) [...] pH (5.0 - 7.0) 5.0 Ur Specific [place] (1.005 - 1.030) 1.009 Urine Protein (NEGATIVE) [...] 2028 Report Impression - Status: SIGNED Entered: 11/28/2023 211 IMPRESSION: No acute bony abnormality. Impression By: [email or web address] Kira Mandel M.D. CAT SCAN - CT HEAD/BRAIN W/O CONT 11/28 0048 Report Impression - Status: SIGNED Entered: 11/29/2023 0103 IMPRESSION: Unremarkable CT examination of the brain without contrast Impression By: [email or web address] - Lisa Baker M.D. Lab Imaging Statement Laboratory radiographic studies reviewed and considered in the medical decision-making. Point of Care Testing Pulse Oximetry Pulse Ox % 99 On: Room air Interpretation Interpreted by , Pulse oximetry normal Time 0156 Re-Evaluation MDM [...] Admin Sodium Chloride 1,000 ML X1ED STA 11/27 2156 DC 11/27 IV 11/27 2156 2332 Gastrointestinal Drugs Sig/Phill Start time Last Medication Dose Route Stop Time Status Admin Ondansetron HCl 4 MG X1ED STA 11/28 0040 DC 11/28 IV 11/28 0041 0109 Meclizine HCl 50 MG X1ED STA 11/27 2156 DC 11/27 PO 11/27 2156 233 Differential Diagnosis )( Differential Diagnosis Acute coronary syndrome, Dehydration, Electrolyte disorder, Heat stroke, Vertigo, central, Vertigo, peripheral Patient Discharge Departure Vital Signs/Condition Vital Signs First Documented: Result Date Time B/P 155/99 11/27 2013 B/P Mean 117 11/27 2013 O2 Delivery Room air 11/27 2013 Temp 98.2 11/27 2013 Pulse 93 11/27 2013 Resp 16 11/27 2013 Pulse Ox 99 11/28 0156 Last Documented: Result Date Time Pulse Ox 99 11/28 0156 B/P 148/78 11/28 0156 B/P Mean 101 11/28 0156 O2 Delivery Room air 11/28 0156 Pulse 87 / 0156 Resp 16 11/28 0156 Temp 98.2 11/27 2013 All vital signs [...] Referrals Provider Referral: Tj Cole MD Address: [address] [place] [address] [address] [place] [address] Provider Referral: Katelynn Nettles MD Address: [address] [place] [address] [address] [place] [address] Supervising Physician Note MidLv Saw Pt Alone I have reviewed the PA/FAX MACHINE REPAIRER's note and plan of care. I was available for consultation as needed at all times during the patient's visit in the emergency department. I agree with the clinical impression, plan and disposition. at 2321 at 2252 [facility] #:[id number] END OF [id number] 14:30:00 Images from the original note were not included. Venipuncture collection performed by clean technique on the right anticubitus. Total of 1 attempts were made. Slight pressure and a bandage/dressing were applied to the site(s). The patient experienced no complications. The following specimens were processed according to instructions and sent to [facility] laboratories per lab order on 10/23/2023 : LT BLUE SST RED 2RST LAV 1 PPT DK GREEN (LiHep) 1 DK GREEN (SodH) OCAMPO DK BLUE (K2) DK BLUE (S) ACD Blood Culture [facility]IPT/[facility]D [id number] 13:45:00 Images from the original note were not included. Venipuncture collection performed by clean technique on the right anticubitus. Total of 1 attempts were made. Slight pressure and a bandage/dressing were applied to the site(s). The patient experienced no complications. The following specimens were processed according to instructions and sent to [facility] laboratories per lab order on 09/10/2023 : LT BLUE SST 1 RED LAV PPT DK GREEN (LiHep) DK GREEN (SodH) OCAMPO DK BLUE (K2) DK BLUE (S) ACD Blood Culture NIPT/NTD [place] [id number] 10:35:58 Done! [place] [id number] 15:07:41 Please review, complete, and sign if appropriate. Elena Salazar [facility]2024-05-16 14:56:58 Allie Martin is a 28 year old female Patient is calling requesting a referral for cardiology. Patient previously seen in [facility] but wants to go to [facility] location. Please contact pt [phone] (home) [place] [id number] 10:45:00 Images from the original note were not included. Venipuncture collection performed by clean technique on the right anticubitus. Total of 1 attempts were made. Slight pressure and a bandage/dressing were applied to the site(s). The patient experienced no complications. The following specimens were processed according to instructions and sent to [facility] laboratories per lab order on 08/29/2023 : LT BLUE SST 3 RED LAV 2 PPT DK GREEN (LiHep) DK GREEN (SodH) OCAMPO DK BLUE (K2) DK BLUE (S) ACD Blood Culture NIPT/NTD 1 lt green T [place] [address]00-03-29 08:12:39 Rx sent for diflucan [place] [id number] 18:47:14 PT D/C home. GCS15, VS stable. Given D/C paperwork. Pt ambulatory at time of discharge. Pt educated on med usage, follow up care, s/s worsening condition, need for hydration. Pt verbalized understanding. Pt ambulated from Ed in [place] 77326-03-13 15:50:36 Pt just left ED with her daughter after her daughter was d/c. 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 Pt reports having right eye pressure. Pt A&OX4, VSS. NAD [facility] Kriss Motley [id number] 00:10:27 Pt discharged with diagnosis of scalp pain. Printed and verbal instructions reviewed with and given to pt. Prescriptions given x 0. Pt verbalized understanding of teaching, and recommended follow-up. Denies questions or concerns at this time. Pt ambulatory at discharge. Appears in no apparent distress. No ataxia noted. ER SURVEYOR Nataly Barger [facility]qnxna0790-42-74 23:20:51 Patient arrived ambulatory to ED c/o knot to back of head that she noticed today. Patient denies any trauma to that area. States it is sore and hurts to touch. Patient also has a left sided swollen lymph node on neck and states yesterday BLE "danelle horses." No medications taken GAS LEAK TESTER. ER SURVEYOR Miriam Medina [id number] 08:24:20 Pt given discharge instructions on nauseous. Given prescription X 1 for zofran. Pt advised to follow up with Gastroenterology and pcp. Pt left ER ambulatory. No signs of distress. IE Arias [facility] [id number] 07:02:36 Addendum: Pt signed out to me [...] 0.0 0.0 - 10.0 /100 WBCs NRBC x103<0.01 10*3/?L GRAN MAT (NEUT) % 56.2 % IMM GRAN % 0.30 % LYMPH % 33.5 % MONO % 8.5 % EOS % 1.1 % BASO % 0.4 % GRAN MAT x103(ANC) 7.02 1.88 - 7.09 10*3/uL IMM GRAN x1030.04 0.00 - 0.06 10*3/uL LYMPH x1034.18 (H) 1.32 - 3.29 10*3/uL MONO x1031.06 (H) 0.33 - 0.92 10*3/uL EOS x1030.14 0.03 - 0.39 10*3/uL BASO x1030.05 0.01 - 0.07 10*3/uL Comp. Metabolic Panel (98816) Collection Time: 05/11/23 6:34 AM Result Value [...] feeling better. Labs and other paperwork from [facility] in [place] reviewed. WBCs are essentially the same today. Bilirubin has decreased to within normal limits. The patient states she has no PCP or GI follow-up, only cardiology for the sinus tachycardia. Will refer to family medicine clinic and GI for follow-up. Will discharge home on OTC Pepcid daily and prescription for Zofran and ODT as needed for nausea. Century diet. Return precautions given. [LS] 0804 Per [...] Stable Comment -- Contact information for follow-up [facility] [address] [place] [address], [address] [facility] [id number] Instructions: As needed Patient's Medications START taking [...] No medications on file Caity Pedraza M.D., LOCATED [facility]IN [facility] Stra[employer] Clinical Professor of Emergency Medicine Caity Pedraza MD 05/11/23 0816 edicine [facility]2024-01-20 06:27:39 Pt states on and off for the last week she has been having pain to the mid chest area that radiates to the epigastric area and to the back after she eats. Pt was seen last Saturday at [facility] and dx with sinus tachycardia. Pt denies any N/V/D. [facility] Grace Rubin [facility]
--- NOTE | 2024-03-13 01:27 | EDPHYS ---
Physician Documentation [facility] Name: Allie Hedrick Age: 28 yrs Sex: Female : 1995 Arrival Date: 03/13/2024 Time: 01:02 Bed 13 Private MD: PAUL Physician Quinton Bazzi HPI: 03/13 01:24 This 28 yrs old Female presents to ER via Unassigned with complaints of post ankle sp3 surgery splint issue. 01:24 28-year-old female with no past medical history who is now status post ankle surgery on sp3 her right foot presents with request of new splint due to her old one malfunctioning and not retaining the prior shape. Patient had some drainage for which she needed to change her dressing and afterwards her old splint which appears to be Ortho-Glass was not contoured correctly. Her surgeon told her to go to the nearest ER for new splint. Drainage was considered to be serosanguineous and not infectious based on her discussion and interactions with her surgeon. Patient does not complain of any significant pain or neurosymptoms.. 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 - Infectious Disease History:: Denies. - Social history:: Smoking status: Patient denies any tobacco usage or history of. ROS: 01:25 Constitutional: Negative for fever, chills, and weight loss, Eyes: Negative for injury, sp3 pain, redness, and discharge, Neck: Negative for injury, pain, and swelling, Cardiovascular: Negative for chest pain, palpitations, and edema, Respiratory: Negative for shortness of breath, cough, wheezing, and pleuritic chest pain, Abdomen/GI: Negative for abdominal pain, nausea, vomiting, diarrhea, and constipation, Back: Negative for injury and pain, Neuro: Negative for headache, weakness, numbness, tingling, and seizure, Psych: Negative for depression, anxiety, suicide ideation, homicidal ideation, and hallucinations, Allergy/Immunology: Negative for hives, rash, and allergies, Endocrine: Negative for neck swelling, polydipsia, polyuria, polyphagia, and marked weight changes, Hematologic/Lymphatic: Negative for swollen nodes, abnormal bleeding, and unusual bruising, 01:25 All other systems are negative, Exam: 01:25 Constitutional: This is a well developed, well nourished patient who is awake, alert, sp3 and in no acute distress. Head/Face: Normocephalic, atraumatic. Eyes: Pupils equal round and reactive to light, extra-ocular motions intact. Lids and lashes normal. Conjunctiva and sclera are non-icteric and not injected. Cornea within normal limits. Periorbital areas with no swelling, redness, or edema. Neck: Trachea midline, no thyromegaly or masses palpated, and no cervical lymphadenopathy. Supple, full range of motion without nuchal rigidity, or vertebral point tenderness. No Meningismus. Chest/axilla: Normal chest wall appearance and motion. Nontender with no deformity. No lesions are appreciated. Cardiovascular: Regular rate and rhythm with a normal S1 and S2. No gallops, murmurs, or rubs. Normal PMI, no JVD. No pulse deficits. Respiratory: Lungs have equal breath sounds bilaterally, clear to auscultation and percussion. No rales, rhonchi or wheezes noted. No increased work of breathing, no retractions or nasal flaring. Abdomen/GI: Soft, non-tender, with normal bowel sounds. No distension or tympany. No guarding or rebound. No evidence of tenderness throughout. Back: No spinal tenderness. No costovertebral tenderness. Full range of motion. Skin: Warm, dry with normal turgor. Normal color with no rashes, no lesions, and no evidence of cellulitis. Neuro: Awake and alert, GCS 15, oriented to person, place, time, and situation. Cranial nerves II-XII grossly intact. Motor strength 5/5 in all extremities. Sensory grossly intact. Cerebellar exam normal. Normal gait. Psych: Awake, alert, with orientation to person, place and time. Behavior, mood, and affect are within normal limits. 01:25 Musculoskeletal/extremity: Normal distal pulses and no signs of compartment syndrome, DVT or other abnormality.. Vital Signs: 01:25 BP 150 / 102; Pulse 98; Resp 16; Temp 98.3; Pulse Ox 98% ; Weight 102.06 kg; Height 5 dd2 ft. 6 in. ; 01:48 BP 144 / 95; Pulse 84; Resp 16; Temp 98.4; Pulse Ox 99% ; dd2 01:25 Body Mass Index 36.32 (102.06 kg, 167.64 cm) dd2 Carlos Coma Score: 01:32 Eye Response: spontaneous(4). Motor Response: obeys commands(6). Verbal Response: dd2 oriented(5). Total: 15. MDM: 01:07 Medical Screening Exam initiated sp3 01:26 Data reviewed: vital signs, nurses notes. ED course: 8-year-old female with request of sp3 new splint on her right lower extremity Ortho-Glass after surgery. I am not concerned about infection, DVT, compartment syndrome, or other neurological pathology. We will place new splint and new Ricardo wrap and discharged home with continued follow-up to her orthopedic surgeon.. 03/13 01:23 Order name: Splint - Posterior Leg: Right LE; Complete Time: 01:46 sp3 Administered Medications: No medications were administered Disposition Summary: 03/13/24 01:27 Discharge Ordered Notes: Location: Home sp3 Condition: Stable sp3 Diagnosis - Postoperative splint malfunction and replacement in the emergency department right sp3 ankle/lower extremity Followup: sp3 - With: Private Physician - When: Upon discharge from the Emergency Department - Reason: Continuance of care Discharge Instructions: - Discharge Summary Sheet sp3 - Cast or Splint Care, Adult sp3 Forms: - Medication Reconciliation Form sp3 - Antibiotic Education sp3 - Prescription Opioid Use sp3 - Patient Portal Instructions sp3 - Leadership Thank You Letter sp3 Signatures: Quinton Bazzi MD MD sp3 NITO JUSTIN RN RN dd2
--- NOTE | 2024-03-13 02:10 | ER ---
Nurse's Notes [facility] Name: Allie Hedrick Age: 28 yrs Sex: Female : 1995 Arrival Date: 03/13/2024 Time: : Bed 13 Private MD: Diagnosis: Postoperative splint malfunction and replacement in the emergency department right ankle/lower extremity Presentation: 03/13 01:25 Chief complaint: Patient states: Pt states Sx for open fracture of Rt foot x5 days ago. dd2 Was changing dressing and the hard split does not fit and was hurting her foot. Coronavirus screen: At this time, the client does not indicate any symptoms associated with coronavirus-19. Ebola Screen: No symptoms or risks identified at this time. Initial Sepsis Screen: Does the patient meet any 2 criteria? No. Patient's initial sepsis screen is negative. Does the patient have a suspected source of infection? No. Patient's initial sepsis screen is negative. Risk Assessment: Do you want to hurt yourself or someone else? Patient reports no desire to harm self or others. Onset of symptoms was March 13, 2024. 01:25 Method Of Arrival: Wheelchair dd2 01:25 Acuity: DUKE 4 dd2 Triage Assessment: : General: Appears in no apparent distress. Behavior is calm, cooperative, appropriate dd2 for age. Pain: Complains of pain in right foot Pain does not radiate. Pain currently is 4 out of 10 on a pain scale. EENT: No deficits noted. No signs and/or symptoms were reported regarding the EENT system. Neuro: No deficits noted. Cardiovascular: No deficits noted. Patient's skin is warm and dry. Respiratory: No deficits noted. Airway is patent Respiratory effort is even, unlabored, Respiratory pattern is regular, symmetrical. GI: No deficits noted. No signs and/or symptoms were reported involving the gastrointestinal system. : No deficits noted. No signs and/or symptoms were reported regarding the genitourinary system. Derm: Skin is healthy with good turgor, Skin is dry, Skin temperature is warm Surgical incision with sutures to RT foot. Musculoskeletal: No deficits noted. Circulation, motion, and sensation intact. Range of motion: intact in all extremities. 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 - Infectious Disease History:: Denies. - Social history:: Smoking status: Patient denies any tobacco usage or history of. Screenin:32 [facility] ED Fall Risk Assessment (Adult) History of falling in the last 3 months, dd2 including since admission No falls in past 3 months (0 pts) Confusion or Disorientation No (0 pts) Intoxicated or Sedated No (0 pts) Impaired Gait No (0 pts) Mobility Assist Device Used No (0 pt) Altered Elimination No (0 pt) Score/Fall Risk Level 0 - 2 = Low Risk Oriented to surroundings, Maintained a safe environment, Educated pt \T\ family on fall prevention, incl call for assistance when getting out of bed, Assessed \T\ reinforced patient's understanding of fall precautions, Hourly rounding (assess needs \T\ fall precautionary measures) done. Abuse screen: Denies threats or abuse. Nutritional screening: No deficits noted. Tuberculosis screening: No symptoms or risk factors identified. Assessment: :32 Reassessment: SEE TRIAGE NOTE FOR FULL ASSESSMENT. dd2 Vital Signs: 01:25 BP 150 / 102; Pulse 98; Resp 16; Temp 98.3; Pulse Ox 98% ; Weight 102.06 kg; Height 5 dd2 ft. 6 in. ; 01:48 BP 144 / 95; Pulse 84; Resp 16; Temp 98.4; Pulse Ox 99% ; dd2 01:25 Body Mass Index 36.32 (102.06 kg, 167.64 cm) dd2 Dalton Coma Score: 01:32 Eye Response: spontaneous(4). Motor Response: obeys commands(6). Verbal Response: dd2 oriented(5). Total: 15. ED Course: 01:05 Patient arrived in ED. gm2 01:07 Quinton Bazzi MD is Attending Physician. sp3 01:17 NITO JUSTIN RN is Primary Nurse. dd2 01:29 Triage completed. dd2 01:29 Arm band placed on right wrist. Patient placed in an exam room, on a stretcher, on dd2 pulse oximetry. 01:32 Patient has correct armband on for positive identification. Bed in low position. Call dd2 light in reach. Side rails up X 1. Client placed on continuous cardiac and pulse oximetry monitoring. NIBP monitoring applied. Door closed. Noise minimized. Warm blanket given. Pillow given. Verbal reassurance given. 01:32 Patient did not have IV access during this emergency room visit. dd2 01:47 Provided Education on: SPLINT APPLICATION. dd2 01:47 No provider procedures requiring assistance completed. Dressings: SPLINT, GIOVANNY WRAP X2. dd2 Administered Medications: No medications were administered Medication: 01:32 VIS not applicable for this client. dd2 Outcome: 01:27 Discharge ordered by . sp3 01:49 Discharged to home via wheelchair, dd2 01:49 Condition: stable 01:49 Discharge instructions given to patient, Instructed on discharge instructions, follow up and referral plans. wound care, Demonstrated understanding of instructions, follow-up care, wound care, 02:09 Patient left the ED. dd2 Signatures: Quinton Bazzi MD MD sp3 Emely Tobar 2 NITO JUSTIN RN RN dd2
[2024-03-13 05:49] VITALS: BP 144/95; TEMP 98.4; O2SAT 99
== END 2024-03-13 02:09 | disposition home or self-care (01) ==
LOC: ER 01:02
PROC: 2W0SX1Z Change Splint on Right Foot (ICD-10-PCS; principal; 2024-03-13)
DX: T85.698A Other mechanical complication of other specified internal prosthetic devices, implants and grafts, initial encounter (principal)
CPT/HCPCS: 99283

== ENCOUNTER 2024-06-20 02:46 | Emergency (ER) | payer SELFPAY ==
--- OUTSIDE RECORDS SUMMARY | 2024-06-20 03:04 | XMS REPORT | Continuity of Care Document ---
Author Name Unknown Address [address] [facility]. [address] [place] [address] [facility]connect Address [address] [facility] [address] [place] [address] Care Team Providers Care Software Design Analyst Name Role Phone Anna Nicholas Primary Care Physician [phone] DR SAMMY JI Attending Clinician Unavailable [id number] Attending Clinician Unavailable [id number] Attending Clinician Unavailable DIRK GONZALEZ Attending Clinician Unavailable Adi Ariza Attending Clinician [phone] DIRK GONZALEZ Attending Clinician Unayves Borges MD, Fanny Daniels Attending Clinician +[phone] Sarah ACUNA, Joie Attending Clinician + [phone] Jluis ACUNA, Basilio Guerrero Attending Clinici an Mone Varela DO Attending Clinician + MONE VARELA Attending Clinician Unav ailable Resource, [facility] Attending Clinician Unavailable ANNA HEARN Attending Clinician Unavailable Anna Nicholas Attending Clinician [phone] Sheila Orta MD Attending Clinician +[phone] MELISSA SAMS Attending Clinician Unavailab MELISSA Hahn Attending Clinician Unavailab Melissa Hahn DO Attending Clinician +[phone] Gabriele Houston Attending Clinician Unavailable ALLIE ROY Attending Clinician Unavailable Lab, Ang - Db Attending Clinician Unavailable Anna Nicholas Attending Clinician [phone] Doctor Unassigned, [place] Attending Clinician U navailable SHEILA ORTA Attending Clinician Unavailable ALVERTO OLIVARES Attending Clinician Unavailable SONJA EASTMAN Attending Clinician Unavailable ABHINAV HUANG Attending Clinician Unavailable Sheila Orta MD Attending Clinician [phone] Sonja Roberts Attending Clinician [phone] HOUSTON DEXTER Attending Clinician Unavailable SAIDA LAGUNA Attending Clinician Unavailable Saida Laguna MD Attending Clinician CARMELA BRENNAN Attending Clinician Unavailable CARMELA BRENNAN Attending Clinician Unavailable Clinic, Gastroenterology Attending Clinician + [phone] CAITY PEDRAZA Attending Clinician Unavailab Abdirashid Connell DO Attending Clinician +[phone] Caity Pedraza MD Attending Clinician + [phone] Alverto Olivares MD Attending Clinician +[phone] Annelise Brown MA Attending Clinician UnavailCOSME Borrego Attending Clinician Unavailable DR CYRUS MCMANUS [facility] Attending Clinician Bull tay [id number] Attending Clinician Unavailable N Attending Clinician Unavailable GLORIA JONES Attending Clinician UnavailGLORIA Magaña Attending Clinician UnavailCosme Borrego PA-C Attending Clinician +[phone] Anna Morales Attending Clinician +[phone] Roland Pearson, Lisa Dooley Attending Clinician + [phone] LISA GARCIA Attending Clinician Unavailab le 1, [employer] Attending Clinician Noemi vailable ELLIOT GOULD Attending Clinician Unavailable MAGALYS LACEY Attending Clinician Unavailable Magalys Lacey MD Attending Clinician +[phone] TRACY WHEELER Attending Clinician Unavailable Tracy Wheeler MD Attending Clinician +[phone] Elliot Gould MD Attending Clinician +[phone] KIRAN SCALES Attending Clinician Unavailable Kiran Scales MD Attending Clinician +[phone] SHARI DIAMOND Attending Clinician Unavailable SONIA MAYBERRY Attending Clinician Unavailable Sonia Mayberry MD Attending Clinician +[phone] 3, [facility] Room Attending Clinician Unavaila Morgan Trinidad MD Attending Clinician +[phone] MORGAN GRANDE Attending Clinician Unavailable MORGAN GRANDE Attending Clinician Unavailable Colin Singh Attending Clinician + [phone] Nataliya Clifton Attending Clinician +[phone] NOEL COOLEY Attending Clinician Unavailable Noel Cooley MD Attending Clinician +[phone] Pob, [facility] Lab Main Attending Clinician UnavailShari Johnson PA-C Attending Clinician +[phone] Nurse, [facility] Women's Health Attending Clinician Un available Lisset Hull RN Attending Clinician Unavail able Ran Arriaza MD Attending Clinician + [phone] RAN ARRIAZA Attending Clinician Unavailable RAN ARRIAZA Attending Clinician Unavailable 1, [facility] Usg Room Attending Clinician Unavaila mellissa Light DO, Ever Attending Clinician [phone] Ultrasound, [facility] Attending Clinician Unavaila Gus Rowe MD Attending Clinician + [phone] GUS SANTAMARIA Attending Clinician Unavaila mellissa 2, [facility] Lab Attending Clinician Unavailable DERRICK CARBONE Attending Clinician Unavaila mellissa Gonzalez RN, Adele Dooley Attending Clinician Unavail able Emanuel Roberts MD Attending Clinician +[phone] [place] [address], [facility] Neurology Continuity Attending Bon roberson Unavailable ALPHONSO MEJIA Attending Clinician Unavailotto Miller PIPE WRAPPING MACHINE OPERATOR, Coleen G Attending Clinician +[phone] FRANKIE_MONE Attending Clinician Unavailable Nkechi Carballo S Attending Clinician +[phone] Macario Arriaza DO Attending Clinician +[phone] TAYLOR HILARIO Attending Clinician Unayves Aranda, [facility] Test Attending Clinician Unavailable BACDR SAMMY CHRISTIAN Admitting Clinician Unavailable NOEL COOLEY Admitting Clinician Unavailable ELLIOT GOULD Admitting Clinician Unavailable Dirk Gonzalez MD Admitting Clinician + [phone] DIRK GONZALEZ Admitting Clinician UnaMone Mackey DO Admitting Clinician + MONE VARELA Admitting Clinician UnaDanyell Foster Admitting Clinician Unavailable SONJA EASTMAN Admitting Clinician Unavailable SAIDA LAGUNA Admitting Clinician Unavailable ABDIRASHID SLOAN Admitting Clinician Unavailable DR CYRUS MCMANUS Admitting Clinician Bull Gould MD, Elliot Christian Admitting Clinician [phone] SONIA MAYBERRY Admitting Clinician Unavailable Jefe ACUNA, Sonia Dooley Admitting Clinician +[phone] Noel Cooley MD Admitting Clinician +[phone] Alejandra ACUNA, Emanuel Admitting Clinician ROBY Admitting Clinician Unavailable Payers Payer Name Policy Type Policy Number Effective Date Expirati on Date Source BLUE [employer]OSS BLUE [employer]IELD - CLINIC [id number] [employer] [facility]INIC [id number] [facility] STATE [id number] 2020 00:00:00 [facility] [id number] 2019 00:00:00 [employer]ET[employer] HMO [id number] 2015 00:00:00 [employer]ET[employer] (POS) [id number] 2015 00:00:00 2020 00:00:00 Problems Condition Name Condition Details Condition Category Status Onset Date Resolution Date Last Treatment Date Treating Clinician Comments Source Displaced trimalleol ar fracture of right lower leg, initial encounter for closed fracture Displaced trimalleol ar fracture of right lower leg, initial encounter for closed fracture Disease Active 2023-04 00:00: 00 [facility] Morbid obesity Morbid obesity Disease Active 2023-04 [...] (CMS/HCC) Disease Active 2023-04 00:00: 00 [facility] Preop examinatio n Preop examinatio n Disease Active 2023-04 00:00: 00 [facility] Leukocytos is Leukocytos is Disease Active 2023-04 00:00: 00 [facility] Snores Snores Disease Active 09-12 00:00: 00 [facility] PFO (patent foramen ovale) PFO (patent foramen ovale) Disease Active 09-12 00:00: 00 [facility] Palpitatio ns Palpitatio ns Disease Active 09-12 00:00: 00 [facility] Vitamin B6 deficiency Vitamin B6 deficiency Disease Active 09-01 00:00: 00 [facility] Sleep difficulti es Sleep difficulti es Disease Active 08-28 00:00: 00 [facility] Anxiety Anxiety Disease Active 08-28 00:00: 00 [facility] Epigastric pain Epigastric pain Disease Active 05-11 00:00: 00 [facility] Leukocytos is, unspecifie d type Leukocytos is, unspecifie d type Disease Active 05-11 00:00: 00 [facility] History of anxiety History of anxiety Disease Active 2021-04 00:00: 00 [facility] History of gestationa l hypertensi on History of gestationa l hypertensi on Disease Active 2021-04 00:00: 00 Overview: Formattin g of this note might be different from the original. Added automatic ally from request for surgery [id number] [facility] History of depression History of depression Disease Active 2021-04 00:00: 00 [facility] Headache Headache Disease Active 2021-04 00:00: 00 [facility] Placenta previa without hemorrhage , antepartum Placenta previa without hemorrhage , antepartum Disease Active 11-22 00:00: 00 [facility] Vaginal cyst Vaginal cyst Disease Active 2017-04 00:00: 00 [facility] Obesity (BMI 30-39.9) Obesity (BMI 30-39.9) Disease Active 2017-04 0-05 00:00: 00 [facility] Cold sore Cold sore Disease Active 06-13 00:00: 00 [facility] Nausea Nausea Disease Active 06-13 00:00: 00 [facility] Atrial fibrillati on and flutter Atrial fibrillati on and flutter Disease Active 2013-04 2 00:00: 00 [facility] Dodie Liveborn , of [facility] , born in hospital by delivery Liveborn , of [facility] , born in hospital by delivery Disease Resolve d 2021-04 1-07 00:00: 00 2022-03-08 00:00:00 2022-03-08 10:28:05 [facility] Placenta previa without hemorrhage , antepartum Placenta previa without hemorrhage , antepartum Disease Resolve d 0 8-03 00:00: 00 2022-03-08 00:00:00 2022-03-08 10:28:03 [facility] High risk , antepartum High risk , antepartum Disease Resolve d 2021-0 4-12 00:00: 00 2022-03-08 00:00:00 2022-03-08 10:28:01 [facility] 36 weeks gestation of 36 weeks gestation of Disease Resolve d 9-05 00:00: 00 2022-03-08 00:00:00 2022-03-08 10:27:59 [facility] 33 weeks gestation of 33 weeks gestation of Disease Resolve d 2021-04 0-14 00:00: 00 2022-02-14 00:00:00 2022-02-14 14:15:07 [facility] IIH (idiopathi c intracrani al hypertensi on) IIH (idiopathi c intracrani al hypertensi on) Disease Resolve d 2020-0 9-23 00:00: 00 2022-02-02 00:00:00 2022-02-02 01:15:04 [facility] Atrial fibrillati on, unspecifie d type Atrial fibrillati on, unspecifie d type Disease Resolve d 2016-0 2-22 00:00: 00 2022-02-02 00:00:00 2022-02-02 01:15:01 [facility] Pre-eclamp radha, mild Pre-eclamp radha, mild Disease Resolve d 2019-0 5-08 00:00: 00 2019-09-24 00:00:00 2019-09-24 15:05:42 [facility] 39 weeks gestation of 39 weeks gestation of Disease Resolve d 0 5-07 00:00: 00 2019-09-24 00:00:00 2019-09-24 14:42:08 [facility] Encounter for elective induction of labor Encounter for elective induction of labor Disease Resolve d 0 5-07 00:00: 00 2019-09-24 00:00:00 2019-09-24 14:42:07 [facility] Elevated BP without diagnosis of hypertensi on Elevated BP without diagnosis of hypertensi on Disease Resolve d 0 5-07 00:00: 00 2019-09-24 00:00:00 2019-09-24 15:05:42 [facility] Liveborn infant, of [facility] , born in hospital by vaginal delivery Liveborn infant, of [facility] , born in hospital by vaginal delivery Disease Resolve d 2016-0 7-29 00:00: 00 2019-09-24 00:00:00 2019-09-24 14:42:11 [facility] High-risk , third trimester High-risk , third trimester Disease Resolve d 2016-0 6-14 00:00: 00 2019-09-24 00:00:00 2019-09-24 14:42:12 [facility] Presence of of 52 mg levonorges trel-relea sing intrauteri ne device (IUD) Presence of of 52 mg levonorges trel-relea sing intrauteri ne device (IUD) Disease Resolve d 2017- 1-14 00:00: 00 2019-07-14 00:00:00 2019-07-14 08:59:41 [facility] 38 weeks gestation of 38 weeks gestation of Disease Resolve d 2017-04 0-05 00:00: 2019-07-14 00:00:00 2019-07-14 08:59:33 [facility] Decreased movements in third trimester Decreased movements in third trimester Disease Resolve d 2017-04 0-05 00:00: 00 2019-07-14 00:00:00 2019-07-14 08:59:34 [facility] Antepartum variable decelerati on Antepartum variable decelerati on Disease Resolve d 2017-04 0-05 00:00: 00 2019-07-14 00:00:00 2019-07-14 08:59:40 [facility] Premature uterine contractio ns Premature uterine contractio ns Disease Resolve d 2017-04 005 00:00: 00 2019-07-14 00:00:00 2019-07-14 09:00:59 [facility] Insufficie nt weight gain during in third trimester Insufficie nt weight gain during in third trimester Disease Resolve d - 00:00: 2019-07-14 00:00:00 2019-07-14 08:59:47 [facility] Anemia of mother in , antepartum Anemia of mother in , antepartum Disease Resolve d 01-14 00:00: 00 2019-07-14 00:00:00 2019-07-14 09:01:21 [facility] Medication exposure during first trimester of Medication exposure during first trimester of Disease Resolve d 2-24 00:00: 00 2019-07-14 00:00:00 2019-07-14 09:01:07 [facility] Heart palpitatio ns Heart palpitatio ns Disease Resolve d 9-14 00:00: 00 2018-01-24 00:00:00 2018-01-24 15:48:41 [facility] Vaginal spotting Vaginal spotting Disease Resolve d -05 00:00: 00 2018-01-24 00:00:00 2018-01-24 15:48:47 [facility] Vaginal discharge during in third trimester Vaginal discharge during in third trimester Disease Resolve d 12-25 00:00: 2018-01-24 00:00:00 2018-01-24 15:48:33 [facility] Urinary tract infection in mother during third trimester of Urinary tract infection in mother during third trimester of Disease Resolve d 12-25 00:00: 00 2018-01-24 00:00:00 2018-01-24 15:48:36 [facility] Insufficie nt care in third trimester Insufficie nt care in third trimester Disease Resolve d 8-09 00:00: 00 2018-01-24 00:00:00 2018-01-24 15:47:25 [facility] Round ligament pain Round ligament pain Disease Resolve d 427 00:00: 00 2018-01-24 00:00:00 2018-01-24 15:47:22 [facility] Oral contracept nadja use Oral contracept nadja use Disease Resolve d 9-14 00:00: 2018-01-24 00:00:00 2018-01-24 15:47:18 [facility] uterine contractio ns in third trimester, antepartum uterine contractio ns in third trimester, antepartum Disease Resolve d 6-18 00:00: 00 2018-01-24 00:00:00 2018-01-24 16:10:22 [facility] Trichomona l vaginitis during in first trimester Trichomona l vaginitis during in first trimester Disease Resolve d 2015-04 00:00: 00 2018-01-24 00:00:00 2018-01-24 15:46:58 [facility] BV (bacterial vaginosis) BV (bacterial vaginosis) Disease Resolve d 2015-04 2- 00:00: 2018-01-24 00:00:00 2018-01-24 15:47:01 [facility] Gestationa l hypertensi on, third trimester Gestationa l hypertensi on, third trimester Disease Resolve d 7 00:00: 00 2017-12-17 00:00:00 2017-12-17 10:31:08 [facility] Gestationa l hypertensi on Gestationa l hypertensi on Disease Resolve d 727 00:00: 00 2017-12-17 00:00:00 2017-12-17 10:30:57 [facility] Elevated blood pressure affecting in third trimester, antepartum Elevated blood pressure affecting in third trimester, antepartum Disease Resolve d 6-14 00:00: 00 2017-12-17 00:00:00 2017-12-17 10:31:03 [facility] 37 weeks gestation of 37 weeks gestation of Disease Resolve d 7-29 00:00: 00 2017-04-08 00:00:00 2017-04-08 12:04:45 [facility] Glucose found in urine on examinatio n Glucose found in urine on examinatio n Disease Resolve d 10-07 00:00: 00 2017-04-08 00:00:00 2017-04-08 12:04:45 [facility] at early stage at early stage Disease Resolve d 2015-04 00:00: 00 2016-10-09 00:00:00 2016-10-09 11:00:34 [facility] High-risk supervisio n, first trimester High-risk supervisio n, first trimester Disease Resolve d 2015-04 00:00: 00 2016-08-17 00:00:00 2016-08-17 14:40:58 [facility] with inconclusi ve viability, not applicable or unspecifie d fetus with inconclusi ve viability, not applicable or unspecifie d fetus Disease Resolve d 2015-04 00:00: 00 2016-04-18 00:00:00 2016-04-18 17:25:23 [facility] Allergies, Adverse Reactions, Alerts Allergy Name Allergy Type Status Severity Reaction(s) Onset Date Inactive Date Treating Clinician Comments Source No Known Allergie s DA Active U 07-31 00:00: 00 [facility] No Known Allergie s DA Active U 07-31 00:00: 00 [facility] No Known Environm ental Allergie s MA Active UNKNOWN [facility] NO KNOWN ALLERGIE S Drug Class Active [facility] No Known Drug Allergie s MA Active UNKNOWN [facility] No Known Food Allergie s MA Active UNKNOWN [facility] Family History Family Member Diagnosis Comments Start Date Stop Date Sourc e Natural brother Asthma [facility] Natural father Genetic [facility] Natural mother Depression [facility] Family member Arthritis [facility] Family member [facility] Family member Breast Cancer [facility] Family member Cancer [facility] Family member Colon Cancer [facility] Family member Diabetes [facility] Family member Heart [facility] Family member High cholesterol [facility] Family member Hypertension [facility] Family member Mental retardation [facility] Family member Neurological [facility] Family member Osteoporosis [facility] Family member Ovarian [facility] Family member Psychiatry [facility] Family member [facility]ine [facility] Social History Social Habit Start Date Stop Date Quantity Comments Source Gender identity 2023-07-14 03:50:18 Identifies as female gender (finding) [facility] History SDOH Alcohol Std Drinks [facility] History SDOH Alcohol Binge [facility] History SDOH Alcohol Comment [place] [facility] ASSERTION Possible [facility] Sexual orientation [facility] Alcoholic beverage intake 2024-03-05 00:00:00 2024-03-05 00:00:00 .14 /d [facility] 2024-02-09 03:02:48 2024-02-09 03:02:48 Female (finding) [facility] Tobacco use and exposure 2024-02-09 00:00:00 2024-02-09 00:00:00 Smokeless tobacco non-user [facility] History of Social function 2024-02-09 00:00:00 2024-02-09 00:00:00 [facility] Alcohol intake 2023-07-17 00:00:00 2023-07-17 00:00:00 0 /d [facility] Exposure to SARS-CoV-2 (event) 2022-08-13 00:00:00 2022-08-23 13:15:00 Not sure [facility] History SDOH Alcohol Frequency 2021-07-19 00:00:00 2021-07-19 00:00:00 1 [facility] Sex assigned at 1995 00:00:00 1995 00:00:00 F [facility] Smoking Status Start Date Stop Date Source Tobacco smoking consumption unknown [facility] Never smoked tobacco [facility] Medications Ordered Medication Name Filled Medication Name Start Date Stop Date Current Medication? Ordering Clinician Indication Dosage Frequency Signature (SIG) Comments Components Source gabapentin (Neurontin) 300 MG capsule 2023-04 00:00: 00 04-16 05:59 :00 No [id number] 300mg Q.[id number] 3D Take 1 capsule (300 mg total) by mouth in the morning and 1 capsule (300 mg total) at noon and 1 capsule (300 mg total) in the evening. [facility] oxyCODONE (Roxicodone ) 5 MG immediate release tablet 2023-04 00:00: 00 03-24 05:59 :00 No [id number] 5mg Q6H Take 1 tablet (5 mg total) by mouth every 6 (six) hours if needed for severe pain for up to 7 days. [facility] aspirin EC 81 MG EC tablet aspirin [...] 10mg 10 mg, Intravenou s, Once, On Carolin 03/05/24 at 1345, For 1 dose, Recovery (only) [facility] HYDROmorpho ne PF (Dilaudid) injection 0.25 mg HYDROmorpho ne PF (Dilaudid) injection 0.25 mg 2023-04 12:06: 47 Yes .25mg 0.25 mg, Intravenou s, Every 10 min PRN, severe pain (7-10), Starting on Carolin 03/05/24 at 1206, For 4 doses, Recovery (only), Hold for respirator y rate or 8 or less. [facility] naloxone (Narcan) injection 0.04 mg naloxone (Narcan) injection 0.04 mg 2023-04 12:06: 47 Yes .04mg 0.04 mg, Intravenou s, As needed, opioid reversal, every 2 minutes PRN to reverse sedation, Starting on Carolin 03/05/24 at 1206, For 8 doses, Recovery (only), Keep available for immediate use. Stop epidural infusion. Call Anesthesio logist STAT and Notify Pain Service (Dilute 0.4mg/mL in 9 mL saline) [facility] flumazenil (Romazicon) injection 0.2 mg flumazenil (Romazicon) injection 0.2 mg 2023-04 12:06: 47 Yes .2mg 0.2 mg, Intravenou s, As needed, Starting on Carolin 03/05/24 at 1206, Until Discontinu ed [facility] [...] as needed, moderate pain (4-6), Starting on Sat03/05/24 at 1206, For 1 dose, Recovery (only) [...] 1 dose, Created by cabinet override [facility] acetaminoph en (Tylenol) tablet 1,000 [...] spray 2023-04 00:00: 00 02-17 04:59 :00 No [id number] 4mg Administer 1 spray (4 mg total) into affected nostril(s) if needed for opioid reversal. May repeat every 2-3 minutes if needed, alternatin g nostrils, until medical assistance becomes available. [facility] methocarbam ol (Robaxin) 750 MG tablet 2023-04 00:00: 00 02-27 05:59 :00 No [id number] 750mg Q.[id number] 3D Take 1 tablet (750 mg total) by mouth 3 (three) times a day if needed for muscle spasms for up to 10 days. [facility] ibuprofen 800 MG tablet 2023-04 00:00: 02-27 05:59 :00 No [id number] 800mg Take 1 tablet (800 mg total) by mouth every 8 (eight) hours if needed for mild pain for up to 10 days. [facility] traMADol (Ultram) 50 MG tablet 2023-04 00:00: 00 02-22 04:59 :00 No [id number] 50mg Q6H Take 1 tablet (50 mg total) by mouth every 6 (six) hours if needed for severe pain for up to 5 days. [facility] B Complex Vitamins (VITAMIN B COMPLEX PO) B Complex Vitamins (VITAMIN B COMPLEX PO) 2023-04 15:49: 07 Yes Take by mouth. [facility] methocarbam ol (Robaxin) 500 MG tablet methocarbam ol (Robaxin) 500 MG tablet 2023-04 00:00: 00 Yes 500mg Q.[id number] 3D Take 1 tablet by mouth 3 times a day as needed for muscle spasms for up to 10 doses. [facility] HYDROcodone -acetaminop hen (Modale) 5-325 MG tablet HYDROcodone -acetaminop hen (Modale) 5-325 MG tablet 2023-04 00:00: 00 02-24 23:59 :00 No [id number] 1{tbl} Q4H Take 1 tablet by mouth every 4 hours if needed for severe pain (7-10) for up to 15 days. [facility] ibuprofen 800 MG tablet ibuprofen 800 MG tablet 2023-04 00:00: 00 02-14 23:59 :00 No 800mg Q.[id number] 3D Take 1 tablet by mouth in [...] surgical antibiotic administra tion and schedule rebekah y. , Suspected Indication (Select all that apply): Surgical Prophylaxi s [facility] promethazin e (Phenergan) 6.25 mg in sodium chloride 0.9 % 50 mL IVPB promethazin e (Phenergan) 6.25 mg in sodium chloride 0.9 % 50 mL IVPB 2023-04 23:15: 00 02-09 00:28 :00 No 6.25mg 6.25 mg, Intravenou s, at 100 mL/hr, Administer over 30 Minutes, Once, On Sat02/09/24 at 2315, For 1 dose [facility] sennosides (Senokot) tablet 17.2 mg sennosides (Senokot) tablet 17.2 mg 2023-04 21:00: 00 Yes 2{tbl} 17.2 mg (2 tablet), Oral, Nightly, First dose on Sat02/09/24 at 2100 [facility] ketorolac (Toradol) injection [...] (4-6), Starting on Sat02/09/24 at 1715 [facility] acetaminoph en (Tylenol) tablet 500 mg acetaminoph en (Tylenol) tablet 500 mg 2023-04 17:15: 00 Yes 500mg Q4H 500 mg, Oral, Every 4 hours PRN, mild pain (1-3), fever, Starting on Sat02/09/24 at 1715, Max acetaminop hen from all sources = 4,000 mg in 24 hrs. [facility] HYDROcodone -acetaminop hen (Modale) 5-325 MG per tablet 1 tablet HYDROcodone -acetaminop hen (Modale) 5-325 MG per tablet 1 tablet 2023-04 17:15: 00 Yes 1{tbl} Q4H 1 tablet, Oral, Every 4 hours PRN, severe pain (7-10), Starting on Sat02/09/24 at 1715 [facility] acetaminoph en (Tylenol) tablet 1,000 mg acetaminoph en (Tylenol) tablet 1,000 mg 2023-04 17:15: 00 02-08 18:14 :00 No 1000mg 1,000 mg, Oral, Once, On 02/09/24 at 1715, For 1 dose, Recovery (only), If not given within the last 6 hours. Max acetaminop hen from all sources = 4,000 mg in 24 hours. [facility] methocarbam ol (Robaxin) tablet 500 mg methocarbam ol (Robaxin) tablet 500 mg 2023-04 17:14: 40 Yes 500mg [id number] 3D 500 mg, Oral, 3 times daily [...] 14:00: 00 02-08 17:15 :17 No 200mg [id number] 3D 200 mg, Oral, Every 8 hours scheduled, First dose on 02/09/24 at 1400, For CrCl 30-59 mL/min [facility] enoxaparin (Lovenox) syringe 40 mg enoxaparin (Lovenox) syringe 40 mg 2023-04 12:45: 00 Yes 40mg Q.5D 40 mg, Subcutaneo us, Every 12 hours scheduled, First dose (after last modificati on) on 02/09/24 at 1245 [facility] acetaminoph en (Tylenol) 500 MG tablet acetaminoph en (Tylenol) 500 MG tablet 2023-04 12:00: 00 02-08 17:15 :18 No 1000mg Q6H Take 1,000 mg by mouth every 6 hours if needed for mild pain (1-3). [facility] ondansetron (Zofran) 4 MG/2ML injection - Pyxis Override Pull ondansetron (Zofran) 4 MG/2ML injection - Pyxis Override Pull 2023-04 11:02: 33 02-08 11:05 :00 No Starting on Sat02/09/24 at 1102, For 1 dose, Created by cabinet override [facility] polyethylen e glycol (PEG) 3350 (Miralax) packet 17 g polyethylen e glycol (PEG) 3350 (Miralax) packet 17 g 2023-04 10:35: 00 Yes 17g QD [facility] sodium chloride (NS) 0.9 % flush 10 mL sodium chloride (NS) 0.9 % flush 10 mL 2023-04 10:35: 00 Yes 10mL Q12H 10 mL, Intravenou s, Every 12 hours, First dose on Sat02/09/24 at 1035, Administer at least once every 12 hours [facility] melatonin tablet 3 mg melatonin tablet 3 mg 2023-04 10:33: 25 Yes 3mg QD [facility] naloxone (Narcan) injection 0.04 mg naloxone (Narcan) injection 0.04 mg 2023-04 10:33: 25 Yes .04mg [facility] Epic glucagon injection 1 mg glucagon injection 1 mg 2023-04 10:33: 25 Yes 1mg [facility] Epic dextrose 50 % solution 25 g dextrose 50 % solution 25 g 2023-04 10:33: 25 Yes 25g [facility] Epic dextrose 50 % solution 12.5 g dextrose 50 % solution 12.5 g 2023-04 10:33: 25 Yes 12.5g [facility] Epic sodium chloride 0.9 % infusion 250 mL sodium chloride 0.9 % infusion 250 mL 2023-04 10:33: 25 Yes 250mL [facility] Epic sodium chloride (NS) 0.9 % flush 10 mL sodium chloride (NS) 0.9 % flush 10 mL 2023-04 10:33: 25 Yes 10mL [facility] Epic oxyCODONE (Roxicodone ) immediate release tablet [...] On 02/09/24 at 0955, For 1 dose Memoria l Melchor Epic ketamine - 0.9% NaCl injection 25 mg ketamine - 0.9% NaCl injection 25 mg 2023-04 020 05:20: 00 02-08 05:07 :00 No 25mg [...] 1-3 minutes (max 0.5 mg/kg/min) . Arcadio soumya Roche Epic ondansetron (Zofran) injection 4 mg ondansetron (Zofran) injection 4 mg 2023-04 03:40: 00 02-08 08:06 :00 No 4mg 4 mg, Intravenou s, Once, On 02/09/24 at 0340, For 1 dose Roseamber Roche Epic morphine PF injection 4 mg morphine PF injection 4 mg 2023-04 03:40: 00 02-08 08:07 :00 No 4mg 4 mg, Intravenou s, Once, On 02/09/24 at 0340, For 1 dose Memamber Roche Epic ketamine - 0.9% NaCl injection 25 mg [...] 1-3 minutes (max 0.5 mg/kg/min) . Arcadio dooley Melchor Epic magnesium sulfate in water 2 gram/50 mL (4 %) infusion 2 g 12-21 03:45: 00 12-21 04:01 :00 No 2g 2 g, IV Piggyback, Administer over 30 Minutes, ONCE, 1 dose, On 12/21/23 at 2245, Routine [facility] famotidine (PEPCID (PF)) injection 20 mg 12-21 03:15: 00 12-21 03:29 :00 No 20mg 20 mg, Slow IV Push, ONCE, 1 dose, On 12/21/23 at 2215, VANESSA [facility] NaCl 0.9% (NS) bolus infusion 1,000 mL 12-21 02:45: 00 12-21 02:58 :00 No 1000mL at 999 mL/hr, 1,000 mL, IV Infusion, ONCE, 1 dose, On 12/21/23 at 2145, VANESSA [facility] MAGNESIUM GLYCINATE ORAL 10-22 13:44: 29 Yes Take by mouth. [facility] dicyclomine 10 mg capsule 10-22 00:00: 00 Yes [id number] 10mg Take 1 capsule by mouth 2 (two) times daily as needed for Abdominal pain. [facility] busPIRone 5 mg tablet 09-09 00:00: 00 Yes [id number] 5mg Take 1 tablet by mouth 2 (two) times daily as needed (anxiety). [facility] busPIRone 5 mg tablet 08-28 00:00: 00 09-09 00:00 :00 No [id number] 5mg Take 1 tablet by mouth 2 (two) times daily as needed (anxiety). [facility] fluconazole 150 mg tablet 07-18 00:00: 00 07-19 04:59 :00 No [id number] 150mg Take 1 tablet by mouth once now for 1 dose. [facility] Nitrofurant oin&Nit. Macrocryst (MACROBID) 100 mg capsule 07-16 00:00: 00 07-22 04:59 :00 No [id number] 100mg Take 1 capsule by mouth in the morning and 1 capsule in the evening. Do all this for 5 days. [facility] ondansetron (ZOFRAN (PF)) injection 4 mg 05-11 13:45: 00 05-11 12:46 :00 No 4mg 4 mg, Slow IV Push, ONCE, 1 dose, On 05/11/23 at 0745, Routine [facility] iopamidol (ISOVUE 370-500 mL) injection 90 mL 05-11 13:15: 00 05-11 13:30 :00 No [id number] 90mL 90 mL, Intravenou s, ONCE, 1 dose, On 05/11/23 at 0730, Routine [facility] NaCl 0.9% (NS) bolus infusion 1,000 mL 05-11 12:45: 00 05-11 14:23 :00 No 1000mL at 999 mL/hr, 1,000 mL, IV Infusion, ONCE, 1 dose, On 05/11/23 at 0645, STAT [facility] ondansetron 4 mg disintegrat ing tablet 05-11 00:00: 00 08-25 00:00 :00 No [id number] 4mg Take 1 tablet by mouth every 8 (eight) hours as needed for Nausea and Vomiting (N/V). [facility] memantine (NAMENDA) 5 mg tablet 2022-04 0 00:00: 00 08-25 00:00 :00 No [id number] 10mg Take 2 tablets by mouth in the morning and 2 tablets in the evening. [facility] amphetamine -dextroamph etamine 30 mg 24 hr capsule 8-29 00:00: 00 08-25 00:00 :00 No TAKE 1 CAPSULE BY MOUTH IN THE MORNING [facility] meclizine 25 mg tablet 4-11 00:00: 00 01-21 00:00 :00 No [id number] 25mg Take 1 tablet by mouth every 6 (six) hours as needed for Dizziness. [facility]OL[facility] tablet 20 mg 1- 02:30: 00 2023- 01-31 01:35 :00 No 20mg 20 mg, Oral, ONCE NOW, 1 dose, On Sat05/21/22 at 2030, [facility] predniSONE (DELTASONE) tablet 40 mg 05-22 02:00: 00 05-22 02:07 :00 No 40mg 40 mg, Oral, ONCE, 1 dose, On Sat05/21/22 at 2000, [facility] ketorolac 10 mg tablet 05-21 00:00: 00 01-21 00:00 :00 No [id number] 10mg Take 1 tablet by mouth every 6 (six) hours as needed for Pain (scale 4-6) or Pain (scale 7-10). [facility] amoxicillin -clavulanat e 875-125 mg per tablet 05-21 00:00: 00 06-01 05:59 :00 No [id number] 1{tbl} Take 1 tablet by mouth every 12 (twelve) hours for 10 days. [facility] ibuprofen (IBU) tablet 600 mg 2021-04 13:30: 00 03-30 14:08 :00 No 600mg 600 mg, Oral, ONCE, 1 dose, On Sat03/30/22 at 0730, [facility] amoxicillin 500 mg tablet 2021-04 00:00: 00 04-10 05:59 :00 No [id number] 500mg Take 1 tablet by mouth in the morning and 1 tablet in the evening. Do all this for 10 days. [facility] norelgestro min-ethinyl estradiol 150-35 mcg/24 hr patch 2021-04 00:00: 00 01-21 00:00 :00 No [id number] 1{patch } Apply 1 Patch to skin weekly. [facility] ibuprofen (IBU) tablet 600 mg 2021-04 18:00: 00 Yes 600mg 600 mg, Oral, Q6H ABX, First dose on Sat02/28/22 at 1200, Until Discontinu ed, Routine [facility] ketorolac (TORADOL) injection 30 mg 2021-04 18:00: 00 02-28 17:59 :00 No 30mg 30 mg, Slow IV Push, Q6H ABX, 4 doses, First dose on Sat02/27/22 at 1200, Last dose on Sat02/28/22 at 0600, Routine [facility] gabapentin (NEURONTIN) capsule 300 mg 2021-04 14:00: 00 Yes 300mg 300 mg, Oral, TID, First dose on Sat02/27/22 at 0800, Until Discontinu ed, Routine [facility] buPROPion (WELLBUTRIN ) tablet 100 mg 2021-04 14:00: 00 Yes 100mg 100 mg, Oral, BID, First dose on Sat02/27/22 at 0800, Until Discontinu ed, Routine [facility] acetaminoph en (TYLENOL) tablet 650 mg 2021-04 12:00: 00 Yes 650mg 650 mg, Oral, Q6H ABX, First dose on Sat02/27/22 at 0600, Until Discontinu ed, Routine [facility] PNV no.95/nathan us fum/folic ac ( ORAL) 2021-04 08:01: 58 02-27 00:00 :00 No Take by mouth. [facility] sodium chloride 0.9 % irrigation solution 2021-04 05:54: 00 Yes PRN, Starting on Sat02/26/22 at 2354, Until Discontinu ed, Intra-op [facility] lactated ringers IV infusion 1,000 mL 2021-04 03:00: 00 02-27 07:13 :16 No 1000mL at 125 mL/hr, 1,000 mL, IV Infusion, ONCE, 1 dose, On Sat02/26/22 at 2100, Routine [facility] rho(D) immune globulin (RHOGAM) syringe 300 mcg 2021-04 02:57: 35 Yes 300ug 300 mcg, Intramuscu lar, ONCE, For 1 dose, Conditiona l, Routine [facility] HYDROcodone -acetaminop hen (NORCO 5) 5-325 mg tablet 1 tablet 2021-04 02:57: 30 Yes 1{tbl} 1 tablet, Oral, Q6HPRN, Starting on Sat02/26/22 at 2056, Until Discontinu ed, Routine, Pain (scale 7-10), Alternate with Ibuprofen [facility] diphenhydrA MINE (BENADRYL) injection 25 mg 2021-04 02:57: 30 Yes 25mg 25 mg, Slow IV Push, Q6HPRN, Starting on Sat02/26/22 at 2056, Until Discontinu ed, Routine, Itching [facility] diphenhydrA MINE (BENADRYL) tablet 25 mg 2021-04 02:57: 30 Yes 25mg 25 mg, Oral, Q6HPRN, Starting on Sat02/26/22 at 2056, Until Discontinu ed, Routine, Sleep, Itching [facility] ondansetron (ZOFRAN (PF)) injection 4 mg 2021-04 02:57: 30 Yes 4mg 4 mg, Slow IV Push, Q8HPRN, Starting on Sat02/26/22 at 2056, Until Discontinu ed, Routine, Nausea and Vomiting (N/V) [facility] bisacodyL (DULCOLAX) suppository 10 mg 2021-04 02:57: 30 Yes 10mg 10 mg, Rectal, QDAILYPRN, Starting on Sat02/26/22 at 2056, Until Discontinu ed, Routine, Constipati on [facility] simethicone (GAS RELIEF (SIMETHICON E)) chewable tablet 160 mg 2021-04 02:57: 30 Yes 160mg 160 mg, Oral, PC+HSPRN, Starting on Sat02/26/22 at 2056, Until Discontinu ed, Routine, Gas [facility] docusate (COLACE) capsule 200 mg 2021-04 02:57: 30 Yes 200mg 200 mg, Oral, QDAILYPRN, Starting on Sat02/26/22 at 2056, Until Discontinu ed, Routine, Constipati on [facility] magnesium hydroxide (MILK OF MAGNESIA) 400 mg/5 mL suspension 30 mL 2021-04 02:57: 30 Yes 30mL 30 mL, Oral, QDAILYPRN, Starting on Sat02/26/22 at 205, Until Discontinu ed, Routine, Constipati on [facility] lactated ringers IV infusion 1,000 mL 2021-04 02:57: 30 Yes 1000mL at 125 mL/hr, 1,000 mL, IV Infusion, PRN, 1 dose, Starting on Sat02/26/22 at 2056, Until Discontinu ed, Routine [facility] mupirocin (BACTROBAN OINT) 2 % skin ointment 2021-04 02:30: 00 Yes Intra-op [facility] betamethaso ne acet,sod phos (CELESTONE SOLUSPAN) 6 mg/mL injection 12 mg 2021-04 00:22: 00 02-27 00:23 :00 No 12mg 12 mg, Intramuscu lar, ONCE, 1 dose, On Sat02/26/22 at 1830, Routine [facility] acetaminoph en 325 mg tablet 2021-04 00:00: 00 03-28 00:00 :00 No [id number] 650mg Take 2 tablets by mouth every 6 (six) hours as needed for Pain (scale 1-3) or Pain (scale 4-6). [facility] vitamin w/FA tablet 2021-04 00:00: 00 03-28 00:00 :00 No [id number] 1{tbl} Take 1 tablet by mouth in the morning. [facility] docusate 100 mg capsule 2021-04 00:00: 00 03-28 00:00 :00 No [id number] 200mg Take 2 capsules by mouth once daily as needed for Constipati on. [facility] ferrous sulfate 325 mg (65 mg iron) tablet 2021-04 00:00: 00 03-28 00:00 :00 No [id number] 325mg Take 1 tablet by mouth in the morning and 1 tablet in the evening. [facility] ibuprofen 600 mg tablet 2021-04 00:00: 00 03-28 00:00 :00 No [id number] 600mg Take 1 tablet by mouth every 6 (six) hours as needed (Pain). Take with food or milk. [facility] HYDROcodone -acetaminop hen 5-325 mg tablet 2021-04 00:00: 00 03-07 05:59 :00 No [id number] 1{tbl} Take 1 tablet by mouth every 6 (six) hours as needed for Pain (scale 7-10) (Alternate with Ibuprofen) for up to 7 days. Indication s: acute pain [facility] gabapentin 300 mg capsule 2021-04 00:00: 00 03-05 05:59 :00 No [id number] 300mg Take 1 capsule by mouth in the morning and 1 capsule at noon and 1 capsule in the evening. Do all this for 5 days. [facility] sodium citrate-cit jaylen acid (BICITRA) 500-334 mg/5 mL solution 30 mL 2021-04 21:55: 25 02-27 01:28 :00 No 30mL 30 mL, Oral, PRE-PROCED URE ONCE, 1 dose, Starting on Sat02/26/22 at 1555, Until Discontinu ed, Routine, Surgery/Pr ocedure [facility] lactated ringers IV infusion 500 mL 2021-04 21:55: 25 02-27 02:57 :33 No 500mL at 999 mL/hr, 500 mL, IV Infusion, PRN - SEE INSTRUCTIO NS, Starting on Sat02/26/22 at 1555, Until Sat02/26/22 at 2056, Routine [facility] D5W-LR IV infusion 1,000 mL 2021-04 21:55: 25 02-27 02:57 :33 No 1000mL at 1-125 mL/hr, IV Infusion, TITRATE, Starting on Sat02/26/22 at 1555, Until Sat02/26/22 at 2056, Routine [facility] PNV no.95/nathan us fum/folic ac ( ORAL) 2021-04 19:48: 58 Yes Take by mouth. [facility] PNV no.95/nathan us fum/folic ac ( ORAL) 2021-04 15:52: 08 Yes Take by mouth. [facility] Nitrofurant oin&Nit. Macrocryst (MACROBID) 100 mg capsule 100 mg 2021-04 21:30: 00 02-25 20:43 :00 No 100mg 100 mg, Oral, ONCE, 1 dose, On 02/25/22 at 1530, Routine
Reason for Anti-Infec tive: Empiric Therapy for Suspected Infection< br>Empiric Therapy Site: Urine
D uration of therapy: 5 days [facility] PNV no.95/nathan us fum/folic ac ( ORAL) 2021-04 15:22: 42 Yes Take by mouth. [facility] Nitrofurant oin&Nit. Macrocryst 100 mg capsule 2021-04 00:00: 00 02-27 00:00 :00 No [id number] 100mg Take 1 capsule by mouth in the morning and 1 capsule in the evening. [facility] SUMAtriptan (IMITREX) tablet 50 mg 2021-04 01:30: 00 02-09 01:07 :00 No 50mg 50 mg, Oral, ONCE, 1 dose, On Carolin 02/08/22 at 2030, Routine [facility] magnesium sulfate in water 2 gram/50 mL (4 %) infusion 2 g 2021-04 01:30: 00 02-09 02:07 :00 No 2g 2 g, IV Piggyback, Administer over 60 Minutes, ONCE, 1 dose, On Carolin 02/08/22 at 2030, Routine [facility] D5W-LR IV infusion 1,000 mL 2021-04 01:00: 00 Yes 1000mL at 150 mL/hr, IV Infusion, CONTINUOUS , Starting on Carolin 02/08/22 at 2015, Until Discontinu ed, Routine [facility] NaCl 0.9% (NS) IV infusion 1,000 mL 2021-04 22:45: 00 02-08 22:30 :00 No 1000mL at 999 mL/hr, IV Infusion, ONCE, 1 dose, On Carolin 02/08/22 at 1745, Routine
Then D5LR at 150 ml/hr
[facility] ondansetron (ZOFRAN (PF)) injection 4 mg 2021-04 22:36: 00 02-08 22:50 :00 No 4mg 4 mg, Slow IV Push, ONCE, On Carolin 02/08/22 at 1745, For 1 dose
Do ses of ondansetro n 16 mg and above need to be administer ed via IV piggyback. For Dose >=24mg ECG monitoring is advisable.
[facility] PNV no.95/nathan us fum/folic ac ( ORAL) 2021-04 22:25: 04 Yes Take by mouth. [facility] PNV no.95/nathan us fum/folic ac ( ORAL) 2021-04 12:35: 03 Yes Take by mouth. [facility] magnesium oxide 400 mg (241.3 mg magnesium) tablet 2021-04 00:00: 00 02-27 00:00 :00 No [id number] 400mg Take 1 tablet by mouth in the morning. [facility] memantine 5 mg tablet 2021-04 00:00: 00 02-27 00:00 :00 No [id number] 5mg Take 1 tablet by mouth in the morning. [facility] D5W-LR IV infusion 1,000 mL 2021-04 00:15: 00 Yes 1000mL at 150 mL/hr, IV Infusion, CONTINUOUS , Starting on 02/03/22 at 1915, Until Discontinu ed, Routine [facility] magnesium sulfate in water 2 gram/50 mL (4 %) infusion 2 g 2021-04 00:15: 00 02-04 02:03 :00 No 2g 2 g, IV Piggyback, Administer over 60 Minutes, ONCE, 1 dose, On 02/03/22 at 1915, Routine [facility] NaCl 0.9% (NS) bolus infusion 1,000 mL 2021-04 00:00: 00 02-04 00:58 :00 No 1000mL at 999 mL/hr, 1,000 mL, IV Piggyback, ONCE, 1 dose, On 02/03/22 at 1900, STAT [facility] SUMAtriptan (IMITREX) injection 6 mg 2021-04 00:00: 00 02-03 23:44 :00 No 6mg 6 mg, Subcutaneo us, ONCE, 1 dose, On 02/03/22 at 1900, Routine [facility] metoclopram abisai HCl (REGLAN) injection 10 mg 2021-04 00:00: 00 02-03 23:55 :00 No 10mg 10 mg, Slow IV Push, ONCE, 1 dose, On 02/03/22 at 1900, Routine [facility] proCHLORper azine (COMPAZINE) tablet 10 mg 2021-04 22:51: 00 02-03 22:59 :00 No 10mg 10 mg, Oral, ONCE NOW, 1 dose, On 02/03/22 at 1800, Routine [facility] PNV no.95/nathan us fum/folic ac ( ORAL) 2021-04 21:51: 21 Yes Take by mouth. [facility] PNV no.95/nathan us fum/folic ac ( ORAL) 2021-04 14:13: 44 Yes Take by mouth. [facility] magnesium sulfate in water 2 gram/50 mL (4 %) infusion 2 g 2021-04 13:45: 00 02-02 14:37 :00 No 2g 2 g, IV Piggyback, Administer over 60 Minutes, ONCE, 1 dose, On Sat02/02/22 at 0845, Routine [facility] SUMAtriptan (IMITREX) tablet 50 mg 2021-04 13:45: 00 02-02 13:32 :00 No 50mg 50 mg, Oral, ONCE, 1 dose, On Sat02/02/22 at 0845, Routine [facility] buPROPion (WELLBUTRIN ) tablet 100 mg 2021-04 13:00: 00 Yes 100mg 100 mg, Oral, BID, First dose on Sat02/02/22 at 0800, Until Discontinu ed, Routine [facility] acetaminoph en (TYLENOL) tablet 650 mg 2021-04 09:27: 47 Yes 650mg 650 mg, Oral, Q6HPRN, Starting on Sat02/02/22 at 0427, Until Discontinu ed, Routine, headache [facility] alum-mag hydroxide-s imeth (MAALOX PLUS / MAG-AL PLUS) 200-200-20 mg/5 mL suspension 30 mL 2021-04 08:04: 11 Yes 30mL 30 mL, Oral, Q6HPRN, Starting on Sat02/02/22 at 0304, Until Discontinu ed, Routine, Indigestio n [facility] docusate (COLACE) capsule 200 mg 2021-04 08:04: 11 Yes 200mg 200 mg, Oral, QHSPRN, Starting on Sat02/02/22 at 0304, Until Discontinu ed, Routine, Constipati on [facility] magnesium hydroxide (MILK OF MAGNESIA) 400 mg/5 mL suspension 30 mL 2021-04 08:04: 11 Yes 30mL 30 mL, Oral, QDAILYPRN, Starting on Sat02/02/22 at 0304, Until Discontinu ed, Routine, Constipati on [facility] caffeine tablet 200 mg 2021-04 07:45: 00 02-02 07:00 :00 No 200mg 200 mg, Oral, ONCE NOW, 1 dose, On Sat02/02/22 at 0245, Routine [facility] proCHLORper azine (COMPAZINE) 10 mg in NaCl 0.9% (NS) piggyback 2021-04 07:30: 00 02-02 07:18 :00 No 10mg 10 mg, IV Piggyback, ONCE NOW, 1 dose, On Sat02/02/22 at 0230, 50 mL [facility] diphenhydrA MINE (BENADRYL) injection 25 mg 2021-04 05:15: 00 02-02 04:41 :00 No 25mg 25 mg, Intravenou s, ONCE, 1 dose, On Sat02/02/22 at 0015, Routine [facility] metoclopram abisai HCl (REGLAN) injection 10 mg 2021-04 05:15: 00 02-02 04:41 :00 No 10mg 10 mg, Slow IV Push, ONCE NOW, 1 dose, On Sat02/02/22 at 0015, Routine [facility] lactated ringers IV infusion 500 mL 2021-04 05:00: 00 02-02 04:38 :38 No 500mL at 999 mL/hr, 500 mL, Intravenou s, ONCE, 1 dose, On Sat02/02/22 at 0000, Routine [facility] SUMAtriptan 50 mg tablet 2021-04 00:00: 00 03-28 00:00 :00 No [id number] 50mg Take 1 tablet by mouth in the morning. [facility] magnesium oxide 400 mg (241.3 mg magnesium) tablet 2021-04 00:00: 00 02-07 00:00 :00 No [id number] 400mg Take 1 tablet by mouth in the morning. [facility] butalbital- acetaminoph en-caff 50-325-40 mg tablet 2021-04 00:00: 00 Yes [id number] 1{tbl} Take 1 tablet by mouth every 4 (four) hours as needed for Pain (scale 7-10). [facility] cetirizine 10 mg tablet 2021-04 00:00: 00 01-21 00:00 :00 No [id number] 10mg Take 1 tablet by mouth in the morning. [facility] fluticasone propionate 50 mcg/actuati on nasal spray 2021-04 00:00: 00 02-27 00:00 :00 No [id number] 2{spray } Use 2 Sprays in each nostril in the morning. [facility] butalbital- acetaminoph en-caff (ESGIC) 50-325-40 mg tablet 2 tablet 2021-04 20:15: 00 01-30 20:18 :00 No 2{tbl} 2 tablet, Oral, ONCE NOW, 1 dose, On Sat01/30/22 at 1515, Routine [facility] PNV no.95/nathan us fum/folic ac ( ORAL) 2021-04 17:37: 34 Yes Take by mouth. [facility] PNV no.95/nathan us fum/folic ac ( ORAL) 2021-04 16:58: 09 Yes Take by mouth. [facility] magnesium oxide 400 mg (241.3 mg magnesium) tablet 2021-04 00:00: 00 Yes [id number] 400mg Take 1 tablet by mouth in the morning. [facility] PNV no.95/nathan us fum/folic ac ( ORAL) 2021-04 00:06: 48 Yes Take by mouth. [facility] MAGNESIUM GLYCINATE ORAL 10-24 14:20: 54 Yes Take by mouth. [facility] buPROPion 100 mg tablet 10-24 00:00: 00 01-21 00:00 :00 No [id number] 100mg Take 1 tablet by mouth 2 (two) times daily. [facility] metoclopram abisai HCl 10 mg tablet 4-12 00:00: 00 02-27 00:00 :00 No [id number] 10mg Take 1 tablet by mouth every 6 (six) hours as needed for Nausea and Vomiting (N/V). [facility] iohexol (OMNIPAQUE 350 BULK-100 mL) injection 100 mL 01-15 15:47: 00 01-15 16:00 :00 No [id number] 100mL 100 mL, Intravenou s, ONCE, 1 dose, On 01/15/21 at 1100, Routine [facility] gadoteridol (PROHANCE-2 0 mL) injection 19.32 mL 01-15 01:51: 00 01-15 02:00 :00 No [id number] .2mL/kg 19.32 mL (0.2 mL/kg ?96.6 kg), Intravenou s, ONCE, 1 dose, On Sat01/14/21 at 2100, Routine [facility] amitriptyli ne 25 mg tablet 01-15 00:00: 00 02-15 04:59 :00 No [id number] 25mg Take 1 tablet by mouth at bedtime for 30 days. [facility] lidocaine 1% (PF) (XYLOCAINE) injection 01-13 20:50: 37 01-13 20:50 :37 No PRN, Starting on Sat01/13/21 at 1550, Until Sat01/13/21 at 1550, Routine [facility] LORazepam (ATIVAN) tablet 01-13 20:30: 00 01-13 20:30 :00 No Oral, PRN, Starting on Sat01/13/21 at 1530, Until Sat01/13/21 at 1530, Routine [facility] LORazepam (ATIVAN) tablet 1 mg 01-13 18:44: 14 Yes 1mg 1 mg, Oral, PRN - SEE INSTRUCTIO NS, 2 doses, Starting on Sat01/13/21 at 1344, Until Discontinu ed, Routine, Anxiety, to be given prior to LP under IR if needed [facility] magnesium oxide (MAG-OX 400) tablet 400 mg 01-13 14:00: 00 Yes 400mg 400 mg, Oral, DAILY, First dose on Sat01/13/21 at 0900, Until Discontinu ed, Routine [facility] pantoprazol e (PROTONIX) EC tablet 40 mg 01-13 14:00: 00 Yes 40mg 40 mg, Oral, DAILY, First dose on Sat01/13/21 at 0900, Until Discontinu ed, Routine [facility] heparin (porcine) injection 5,000 Units 01-13 13:00: 00 Yes 5000U 5,000 Units, Subcutaneo us, Q12H, First dose on Sat01/13/21 at 0800, Until Discontinu ed, Routine [facility] ondansetron (ZOFRAN (PF)) injection 4 mg 01-13 06:25: 13 Yes 4mg 4 mg, Slow IV Push, Q6HPRN, Starting on Sat01/13/21 at 0125, Until Discontinu ed, Routine, nausea [facility] NaCl 0.9% (NS) IV infusion 1,000 mL 01-13 05:45: 00 Yes 1000mL at 50 mL/hr, IV Infusion, CONTINUOUS , Starting on Sat01/13/21 at 0045, Until Discontinu ed, Routine [facility] acetaminoph en (TYLENOL) tablet 650 mg 01-13 05:32: 37 Yes 650mg 650 mg, Oral, Q6HPRN, Starting on Sat01/13/21 at 0032, Until Discontinu ed, Routine, Pain (scale 4-6) [facility] docusate (COLACE) capsule 100 mg 01-13 05:32: 37 Yes 100mg 100 mg, Oral, QDAILYPRN, Starting on Sat01/13/21 at 0032, Until Discontinu ed, Routine, Constipati on [facility] magnesium oxide 400 mg (241.3 mg magnesium) tablet 01-12 00:00: 00 08-01 00:00 :00 No [id number] 400mg Take 1 tablet by mouth daily. [facility] scopolamine transdermal 1 mg over 3 days patch 8-03 00:00: 00 01-15 00:00 :00 No [id number] 1.5mg Apply 1 Patch to area(s) every 72 (seventy-t wo) hours. [facility] amoxicillin 500 mg capsule 7-15 00:00: 00 01-15 00:00 :00 No TAKE 1 CAPSULE BY MOUTH EVERY 8 HOURS DIRECTED FOR 10 DAYS [facility] cefUROXime 500 mg tablet 4-19 00:00: 00 10-25 00:00 :00 No 500mg Take 500 mg by mouth 2 (two) times daily. [facility] norelgestro min-ethinyl estradiol (XULANE) 150-35 mcg/24 hr patch 6-04 00:00: 00 10-25 00:00 :00 No [id number] 1{patch } Apply 1 Patch to skin weekly. [facility] vitamin w/FA tablet 08-27 00:00: 00 10-25 00:00 :00 No [id number] 1{tbl} Take 1 tablet by mouth daily. [facility] docusate calcium 240 mg capsule 08-27 00:00: 00 10-25 00:00 :00 No [id number] 240mg Take 1 capsule by mouth once daily as needed for Constipati on. [facility] ferrous sulfate 325 mg (65 mg iron) tablet 08-27 00:00: 00 10-25 00:00 :00 No [id number] 325mg Take 1 tablet by mouth 2 (two) times daily. [facility] ibuprofen 600 mg tablet 08-27 00:00: 00 10-25 00:00 :00 No [id number] 600mg Take 1 tablet by mouth every 6 (six) hours as needed (Pain). Take with food or milk. [facility] Immunizations Ordered Immunization Name Filled Immunization Name Date Status Comments Source Influenza Virus Vaccine Quad IM, Preserv and ABX Free 6 MO-64 YRS 2022-01-17 00:00:00 Completed [facility] TDAP 2022-01-17 00:00:00 Completed [facility] Influenza Virus Vaccine Quad IM, Preserv and ABX Free 6 MO-64 YRS 2022-01-17 00:00:00 Completed [facility] TDAP 2022-01-17 00:00:00 Completed [facility] Influenza Virus Vaccine Quad IM, Preserv and ABX Free 6 MO-64 YRS 2022-01-17 00:00:00 Completed [facility] TDAP 2022-01-17 00:00:00 Completed [facility] Influenza Virus Vaccine Quad IM, Preserv and ABX Free 6 MO-64 YRS 2022-01-17 00:00:00 Completed [facility] TDAP 2022-01-17 00:00:00 Completed [facility] Influenza Virus Vaccine Quad IM, Preserv and ABX Free 6 MO-64 YRS 2022-01-17 00:00:00 Completed [facility] TDAP 2022-01-17 00:00:00 Completed [facility] Influenza Virus Vaccine Quad IM, Preserv and ABX Free 6 MO-64 YRS 2022-01-17 00:00:00 Completed [facility] TDAP 2022-01-17 00:00:00 Completed [facility] Influenza Virus Vaccine Quad IM, Preserv and ABX Free 6 MO-64 YRS 2022-01-17 00:00:00 Completed [facility] TDAP 2022-01-17 00:00:00 Completed [facility] Influenza Virus Vaccine Quad IM, Preserv and ABX Free 6 MO-64 YRS 2022-01-17 00:00:00 Completed [facility] TDAP 2022-01-17 00:00:00 Completed [facility] Influenza Virus Vaccine Quad IM, Preserv and ABX Free 6 MO-64 YRS 2022-01-17 00:00:00 Completed [facility] TDAP 2022-01-17 00:00:00 Completed [facility] Influenza Virus Vaccine Quad IM, Preserv and ABX Free 6 MO-64 YRS 2022-01-17 00:00:00 Completed [facility] TDAP 2022-01-17 00:00:00 Completed [facility] Influenza Virus Vaccine Quad IM, Preserv and ABX Free 6 MO-64 YRS 2022-01-17 00:00:00 Completed [facility] TDAP 2022-01-17 00:00:00 Completed [facility] Influenza Virus Vaccine Quad IM, Preserv and ABX Free 6 MO-64 YRS 2022-01-17 00:00:00 Completed [facility] TDAP 2022-01-17 00:00:00 Completed [facility] Influenza Virus Vaccine Quad IM, Preserv and ABX Free 6 MO-64 YRS 2022-01-17 00:00:00 Completed [facility] TDAP 2022-01-17 00:00:00 Completed [facility] Influenza Virus Vaccine Quad IM, Preserv and ABX Free 6 MO-64 YRS 2022-01-17 00:00:00 Completed [facility] TDAP 2022-01-17 00:00:00 Completed [facility] Influenza Virus Vaccine Quad IM, Preserv and ABX Free 6 MO-64 YRS 2022-01-17 00:00:00 Completed [facility] TDAP 2022-01-17 00:00:00 Completed [facility] Influenza Virus Vaccine Quad IM, Preserv and ABX Free 6 MO-64 YRS 2022-01-17 00:00:00 Completed [facility] TDAP 2022-01-17 00:00:00 Completed [facility] Influenza Virus Vaccine Quad IM, Preserv and ABX Free 6 MO-64 YRS 2022-01-17 00:00:00 Completed [facility] TDAP 2022-01-17 00:00:00 Completed [facility] Influenza Virus Vaccine Quad IM, Preserv and ABX Free 6 MO-64 YRS 2022-01-17 00:00:00 Completed [facility] TDAP 2022-01-17 00:00:00 Completed [facility] Influenza Virus Vaccine Quad IM, Preserv and ABX Free 6 MO-64 YRS 2022-01-17 00:00:00 Completed [facility] TDAP 2022-01-17 00:00:00 Completed [facility] Influenza Virus Vaccine Quad IM, Preserv and ABX Free 6 MO-64 YRS 2022-01-17 00:00:00 Completed [facility] TDAP 2022-01-17 00:00:00 Completed [facility] Influenza Virus Vaccine Quad IM, Preserv and ABX Free 6 MO-64 YRS 2022-01-17 00:00:00 Completed [facility] TDAP 2022-01-17 00:00:00 Completed [facility] Influenza Virus Vaccine Quad IM, Preserv and ABX Free 6 MO-64 YRS 2022-01-17 00:00:00 Completed [facility] TDAP 2022-01-17 00:00:00 Completed [facility] Influenza Virus Vaccine Quad IM, Preserv and ABX Free 6 MO-64 YRS 2022-01-17 00:00:00 Completed [facility] TDAP 2022-01-17 00:00:00 Completed [facility] Influenza Virus Vaccine Quad IM, Preserv and ABX Free 6 MO-64 YRS 2022-01-17 00:00:00 Completed [facility] TDAP 2022-01-17 00:00:00 Completed [facility] Influenza Virus Vaccine Quad IM, Preserv and ABX Free 6 MO-64 YRS 2022-01-17 00:00:00 Completed [facility] TDAP 2022-01-17 00:00:00 Completed [facility] Influenza Virus Vaccine Quad IM, Preserv and ABX Free 6 MO-64 YRS 2022-01-17 00:00:00 Completed [facility] TDAP 2022-01-17 00:00:00 Completed [facility] Influenza Virus Vaccine Quad IM, Preserv and ABX Free 6 MO-64 YRS 2022-01-17 00:00:00 Completed [facility] TDAP 2022-01-17 00:00:00 Completed [facility] Influenza Virus Vaccine Quad IM, Preserv and ABX Free 6 MO-64 YRS 2022-01-17 00:00:00 Completed [facility] TDAP 2022-01-17 00:00:00 Completed [facility] Influenza Virus Vaccine Quad IM, Preserv and ABX Free 6 MO-64 YRS 2022-01-17 00:00:00 Completed [facility] TDAP 2022-01-17 00:00:00 Completed [facility] Influenza Virus Vaccine Quad IM, Preserv and ABX Free 6 MO-64 YRS 2022-01-17 00:00:00 Completed [facility] TDAP 2022-01-17 00:00:00 Completed [facility] Influenza Virus Vaccine Quad IM, Preserv and ABX Free 6 MO-64 YRS 2022-01-17 00:00:00 Completed [facility] TDAP 2022-01-17 00:00:00 Completed [facility] Influenza Virus Vaccine Quad IM, Preserv and ABX Free 6 MO-64 YRS 2022-01-17 00:00:00 Completed [facility] TDAP 2022-01-17 00:00:00 Completed [facility] Influenza Virus Vaccine Quad IM, Preserv and ABX Free 6 MO-64 YRS 2022-01-17 00:00:00 Completed [facility] TDAP 2022-01-17 00:00:00 Completed [facility] Influenza Virus Vaccine Quad IM, Preserv and ABX Free 6 MO-64 YRS 2022-01-17 00:00:00 Completed [facility] TDAP 2022-01-17 00:00:00 Completed [facility] Influenza Virus Vaccine Quad IM, Preserv and ABX Free 6 MO-64 YRS 2022-01-17 00:00:00 Completed [facility] TDAP 2022-01-17 00:00:00 Completed [facility] Influenza Virus Vaccine Quad IM, Preserv and ABX Free 6 MO-64 YRS 2022-01-17 00:00:00 Completed [facility] TDAP 2022-01-17 00:00:00 Completed [facility] Influenza Virus Vaccine Quad IM, Preserv and ABX Free 6 MO-64 YRS 2022-01-17 00:00:00 Completed [facility] TDAP 2022-01-17 00:00:00 Completed [facility] Influenza Virus Vaccine Quad IM, Preserv and ABX Free 6 MO-64 YRS 2022-01-17 00:00:00 Completed [facility] TDAP 2022-01-17 00:00:00 Completed [facility] Influenza Virus Vaccine Quad IM, Preserv and ABX Free 6 MO-64 YRS 2022-01-17 00:00:00 Completed [facility] TDAP 2022-01-17 00:00:00 Completed [facility] Influenza Virus Vaccine Quad IM, Preserv and ABX Free 6 MO-64 YRS 2022-01-17 00:00:00 Completed [facility] TDAP 2022-01-17 00:00:00 Completed [facility] Influenza Virus Vaccine Quad IM, Preserv and ABX Free 6 MO-64 YRS 2022-01-17 00:00:00 Completed [facility] TDAP 2022-01-17 00:00:00 Completed [facility] Influenza Virus Vaccine Quad IM, Preserv and ABX Free 6 MO-64 YRS 2022-01-17 00:00:00 Completed [facility] TDAP 2022-01-17 00:00:00 Completed [facility] Influenza Virus Vaccine Quad IM, Preserv and ABX Free 6 MO-64 YRS 2022-01-17 00:00:00 Completed [facility] TDAP 2022-01-17 00:00:00 Completed [facility] Influenza Virus Vaccine Quad IM, Preserv and ABX Free 6 MO-64 YRS 2022-01-17 00:00:00 Completed [facility] TDAP 2022-01-17 00:00:00 Completed [facility] Influenza Virus Vaccine Quad IM, Preserv and ABX Free 6 MO-64 YRS 2022-01-17 00:00:00 Completed [facility] TDAP 2022-01-17 00:00:00 Completed [facility] Influenza Virus Vaccine Quad IM, Preserv and ABX Free 6 MO-64 YRS 2022-01-17 00:00:00 Completed [facility] TDAP 2022-01-17 00:00:00 Completed [facility] Influenza Virus Vaccine Quad IM, Preserv and ABX Free 6 MO-64 YRS 2022-01-17 00:00:00 Completed [facility] TDAP 2022-01-17 00:00:00 Completed [facility] Influenza Virus Vaccine Quad IM, Preserv and ABX Free 6 MO-64 YRS 2021-07-19 00:00:00 Completed [facility] Influenza Virus Vaccine Quad IM, Preserv and ABX Free 6 MO-64 YRS 2021-07-19 00:00:00 Completed [facility] Influenza Virus Vaccine Quad IM, Preserv and ABX Free 6 MO-64 YRS 2021-07-19 00:00:00 Completed [facility] Influenza Virus Vaccine Quad IM, Preserv and ABX Free 6 MO-64 YRS 2021-07-19 00:00:00 Completed [facility] Influenza Virus Vaccine Quad IM, Preserv and ABX Free 6 MO-64 YRS 2021-07-19 00:00:00 Completed [facility] Influenza Virus Vaccine Quad IM, Preserv and ABX Free 6 MO-64 YRS 2021-07-19 00:00:00 Completed [facility] Influenza Virus Vaccine Quad IM, Preserv and ABX Free 6 MO-64 YRS 2021-07-19 00:00:00 Completed [facility] Influenza Virus Vaccine Quad IM, Preserv and ABX Free 6 MO-64 YRS 2021-07-19 00:00:00 Completed [facility] Influenza Virus Vaccine Quad IM, Preserv and ABX Free 6 MO-64 YRS 2021-07-19 00:00:00 Completed [facility] Influenza Virus Vaccine Quad IM, Preserv and ABX Free 6 MO-64 YRS 2021-07-19 00:00:00 Completed [facility] Influenza Virus Vaccine Quad IM, Preserv and ABX Free 6 MO-64 YRS 2021-07-19 00:00:00 Completed [facility] Influenza Virus Vaccine Quad IM, Preserv and ABX Free 6 MO-64 YRS 2021-07-19 00:00:00 Completed [facility] Influenza Virus Vaccine Quad IM, Preserv and ABX Free 6 MO-64 YRS 2021-07-19 00:00:00 Completed [facility] Influenza Virus Vaccine Quad IM, Preserv and ABX Free 6 MO-64 2021-07-19 00:00:00 Completed [facility] Influenza Virus Vaccine Quad IM, Preserv and ABX Free 6 MO-64 YRS 2021-07-19 00:00:00 Completed [facility] Influenza Virus Vaccine Quad IM, Preserv and ABX Free 6 MO-64 YRS 2021-07-19 00:00:00 Completed [facility] Influenza Virus Vaccine Quad IM, Preserv and ABX Free 6 MO-64 YRS 2021-07-19 00:00:00 Completed [facility] Influenza Virus Vaccine Quad IM, Preserv and ABX Free 6 MO-64 YRS 2021-07-19 00:00:00 Completed [facility] Influenza Virus Vaccine Quad IM, Preserv and ABX Free 6 MO-64 YRS 2021-07-19 00:00:00 Completed [facility] Influenza Virus Vaccine Quad IM, Preserv and ABX Free 6 MO-64 YRS 2021-07-19 00:00:00 Completed [facility] Influenza Virus Vaccine Quad IM, Preserv and ABX Free 6 MO-64 YRS 2021-07-19 00:00:00 Completed [facility] Influenza Virus Vaccine Quad IM, Preserv and ABX Free 6 MO-64 YRS 2021-07-19 00:00:00 Completed [facility] Influenza Virus Vaccine Quad IM, Preserv and ABX Free 6 MO-64 YRS 2021-07-19 00:00:00 Completed [facility] Influenza Virus Vaccine Quad IM, Preserv and ABX Free 6 MO-64 YRS 2021-07-19 00:00:00 Completed [facility] Influenza Virus Vaccine Quad IM, Preserv and ABX Free 6 MO-64 YRS 2021-07-19 00:00:00 Completed [facility] Influenza Virus Vaccine Quad IM, Preserv and ABX Free 6 MO-64 YRS 2021-07-19 00:00:00 Completed [facility] Influenza Virus Vaccine Quad IM, Preserv and ABX Free 6 MO-64 YRS 2021-07-19 00:00:00 Completed [facility] Influenza Virus Vaccine Quad IM, Preserv and ABX Free 6 MO-64 YRS 2021-07-19 00:00:00 Completed [facility] Influenza Virus Vaccine Quad IM, Preserv and ABX Free 6 MO-64 YRS 2021-07-19 00:00:00 Completed [facility] Influenza Virus Vaccine Quad IM, Preserv and ABX Free 6 MO-64 YRS 2021-07-19 00:00:00 Completed [facility] Influenza Virus Vaccine Quad IM, Preserv and ABX Free 6 MO-64 YRS 2021-07-19 00:00:00 Completed [facility] Influenza Virus Vaccine Quad IM, Preserv and ABX Free 6 MO-64 YRS 2021-07-19 00:00:00 Completed [facility] Influenza Virus Vaccine Quad IM, Preserv and ABX Free 6 MO-64 YRS 2021-07-19 00:00:00 Completed [facility] Influenza Virus Vaccine Quad IM, Preserv and ABX Free 6 MO-64 YRS 2021-07-19 00:00:00 Completed [facility] Influenza Virus Vaccine Quad IM, Preserv and ABX Free 6 MO-64 YRS 2021-07-19 00:00:00 Completed [facility] Influenza Virus Vaccine Quad IM, Preserv and ABX Free 6 MO-64 YRS 2021-07-19 00:00:00 Completed [facility] Influenza Virus Vaccine Quad IM, Preserv and ABX Free 6 MO-64 YRS 2021-07-19 00:00:00 Completed [facility] Influenza Virus Vaccine Quad IM, Preserv and ABX Free 6 MO-64 YRS 2021-07-19 00:00:00 Completed [facility] Influenza Virus Vaccine Quad IM, Preserv and ABX Free 6 MO-64 YRS 2021-07-19 00:00:00 Completed [facility] Influenza Virus Vaccine Quad IM, Preserv and ABX Free 6 MO-64 YRS 2021-07-19 00:00:00 Completed [facility] Influenza Virus Vaccine Quad IM, Preserv and ABX Free 6 MO-64 YRS 2021-07-19 00:00:00 Completed [facility] Influenza Virus Vaccine Quad IM, Preserv and ABX Free 6 MO-64 YRS 2021-07-19 00:00:00 Completed [facility] Influenza Virus Vaccine Quad IM, Preserv and ABX Free 6 MO-64 YRS 2021-07-19 00:00:00 Completed [facility] Influenza Virus Vaccine Quad IM, Preserv and ABX Free 6 MO-64 YRS 2021-07-19 00:00:00 Completed [facility] Influenza Virus Vaccine Quad IM, Preserv and ABX Free 6 MO-64 YRS 2021-07-19 00:00:00 Completed [facility] Influenza Virus Vaccine Quad IM, Preserv and ABX Free 6 MO-64 YRS 2021-07-19 00:00:00 Completed [facility] Influenza Virus Vaccine Quad IM, Preserv and ABX Free 6 MO-64 YRS 2021-07-19 00:00:00 Completed [facility] Influenza Virus Vaccine Quad IM, Preserv and ABX Free 6 MO-64 YRS 2021-07-19 00:00:00 Completed [facility] Influenza Virus Vaccine Quad IM, Preserv and ABX Free 6 MO-64 YRS 2021-07-19 00:00:00 Completed [facility] Influenza Virus Vaccine Quad IM, Preserv and ABX Free 6 MO-64 YRS 2021-07-19 00:00:00 Completed [facility] Influenza Virus Vaccine Quad IM, Preserv and ABX Free 6 MO-64 YRS 2021-07-19 00:00:00 Completed [facility] Influenza Virus Vaccine Quad IM, Preserv and ABX Free 6 MO-64 YRS 2021-07-19 00:00:00 Completed [facility] Influenza Virus Vaccine Quad IM, Preserv and ABX Free 6 MO-64 YRS 2021-07-19 00:00:00 Completed [facility] Influenza Virus Vaccine Quad IM, Preserv and ABX Free 6 MO-64 YRS 2021-07-19 00:00:00 Completed [facility] Influenza Virus Vaccine Quad IM, Preserv and ABX Free 6 MO-64 YRS 2021-07-19 00:00:00 Completed [facility] Influenza Virus Vaccine Quad IM, Preserv and ABX Free 6 MO-64 YRS 2021-07-19 00:00:00 Completed [facility] Influenza Virus Vaccine Quad IM, Preserv and ABX Free 6 MO-64 YRS 2021-07-19 00:00:00 Completed [facility] Influenza Virus Vaccine Quad IM, Preserv and ABX Free 6 MO-64 2021-07-19 00:00:00 Completed [facility] Influenza Virus Vaccine Quad IM, Preserv and ABX Free 6 MO-64 YRS 2021-07-19 00:00:00 Completed [facility] Influenza Virus Vaccine Quad IM, Preserv and ABX Free 6 MO-64 YRS 2021-07-19 00:00:00 Completed [facility] Influenza Virus Vaccine Quad IM, Preserv and ABX Free 6 MO-64 YRS 2021-07-19 00:00:00 Completed [facility] Influenza Virus Vaccine Quad IM, Preserv and ABX Free 6 MO-64 2021-07-19 00:00:00 Completed [facility] Influenza Virus Vaccine Quad IM, Preserv and ABX Free 6 MO-64 YRS 2021-07-19 00:00:00 Completed [facility] Influenza Virus Vaccine Quad IM, Preserv and ABX Free 6 MO-64 YRS 2021-07-19 00:00:00 Completed [facility] Influenza Virus Vaccine Quad IM, Preserv and ABX Free 6 MO-64 YRS 2021-07-19 00:00:00 Completed [facility] Influenza Virus Vaccine Quad IM, Preserv and ABX Free 6 MO-64 YRS 2021-07-19 00:00:00 Completed [facility] Influenza Virus Vaccine Quad IM, Preserv and ABX Free 6 MO-64 YRS 2021-07-19 00:00:00 Completed [facility] Influenza Virus Vaccine Quad IM, Preserv and ABX Free 6 MO-64 YRS 2021-07-19 00:00:00 Completed [facility] Influenza Virus Vaccine Quad IM, Preserv and ABX Free 6 MO-64 YRS 2021-07-19 00:00:00 Completed [facility] Influenza Virus Vaccine Quad IM, Preserv and ABX Free 6 MO-64 YRS 2021-07-19 00:00:00 Completed [facility] TDAP (ADACEL) VACCINE 2019-06-29 00:00:00 Completed [facility] TDAP (ADACEL) VACCINE 2019-06-29 00:00:00 Completed [facility] TDAP (ADACEL) VACCINE 2019-06-29 00:00:00 Completed [facility] TDAP (ADACEL) VACCINE 2019-06-29 00:00:00 Completed [facility] TDAP (ADACEL) VACCINE 2019-06-29 00:00:00 Completed [facility] TDAP (ADACEL) VACCINE 2019-06-29 00:00:00 Completed [facility] TDAP (ADACEL) VACCINE 2019-06-29 00:00:00 Completed [facility] TDAP (ADACEL) VACCINE 2019-06-29 00:00:00 Completed [facility] TDAP (ADACEL) VACCINE 2019-06-29 00:00:00 Completed [facility] TDAP (ADACEL) VACCINE 2019-06-29 00:00:00 [facility] [facility] TDAP (ADACEL) VACCINE 2019-06-29 00:00:00 Completed [facility] TDAP (ADACEL) VACCINE 2019-06-29 00:00:00 Completed [facility] TDAP (ADACEL) VACCINE 2019-06-29 00:00:00 Completed [facility] TDAP (ADACEL) VACCINE 2019-06-29 00:00:00 Completed [facility] TDAP (ADACEL) VACCINE 2019-06-29 00:00:00 Completed [facility] TDAP (ADACEL) VACCINE 2019-06-29 00:00:00 Completed [facility] TDAP (ADACEL) VACCINE 2019-06-29 00:00:00 Completed [facility] TDAP (ADACEL) VACCINE 2019-06-29 00:00:00 Completed [facility] TDAP (ADACEL) VACCINE 2019-06-29 00:00:00 Completed [facility] TDAP (ADACEL) VACCINE 2019-06-29 00:00:00 Completed [facility] TDAP (ADACEL) VACCINE 2019-06-29 00:00:00 Completed [facility] TDAP (ADACEL) VACCINE 2019-06-29 00:00:00 Completed [facility] TDAP (ADACEL) VACCINE 2019-06-29 00:00:00 Completed [facility] TDAP (ADACEL) VACCINE 2019-06-29 00:00:00 Completed [facility] TDAP (ADACEL) VACCINE 2019-06-29 00:00:00 Completed [facility] TDAP (ADACEL) VACCINE 2019-06-29 00:00:00 Completed [facility] TDAP (ADACEL) VACCINE 2019-06-29 00:00:00 Completed [facility] TDAP (ADACEL) VACCINE 2019-06-29 00:00:00 Completed [facility] TDAP (ADACEL) VACCINE 2019-06-29 00:00:00 Completed [facility] TDAP (ADACEL) VACCINE 2019-06-29 00:00:00 Completed [facility] TDAP (ADACEL) VACCINE 2019-06-29 00:00:00 Completed [facility] TDAP (ADACEL) VACCINE 2019-06-29 00:00:00 Completed [facility] TDAP (ADACEL) VACCINE 2019-06-29 00:00:00 Completed [facility] TDAP (ADACEL) VACCINE 2019-06-29 00:00:00 Completed [facility] TDAP (ADACEL) VACCINE 2019-06-29 00:00:00 Completed [facility] TDAP (ADACEL) VACCINE 2019-06-29 00:00:00 Completed [facility] TDAP (ADACEL) VACCINE 2019-06-29 00:00:00 Completed [facility] TDAP (ADACEL) VACCINE 2019-06-29 00:00:00 Completed [facility] TDAP (ADACEL) VACCINE 2019-06-29 00:00:00 Completed [facility] TDAP (ADACEL) VACCINE 2019-06-29 00:00:00 Completed [facility] TDAP (ADACEL) VACCINE 2019-06-29 00:00:00 Completed [facility] TDAP (ADACEL) VACCINE 2019-06-29 00:00:00 Completed [facility] TDAP (ADACEL) VACCINE 2019-06-29 00:00:00 Completed [facility] TDAP (ADACEL) VACCINE 2019-06-29 00:00:00 Completed [facility] TDAP (ADACEL) VACCINE 2019-06-29 00:00:00 Completed [facility] TDAP (ADACEL) VACCINE 2019-06-29 00:00:00 Completed [facility] TDAP (ADACEL) VACCINE 2019-06-29 00:00:00 Completed [facility] TDAP (ADACEL) VACCINE 2019-06-29 00:00:00 Completed [facility] TDAP (ADACEL) VACCINE 2019-06-29 00:00:00 Completed [facility] TDAP (ADACEL) VACCINE 2019-06-29 00:00:00 Completed [facility] TDAP (ADACEL) VACCINE 2019-06-29 00:00:00 Completed [facility] TDAP (ADACEL) VACCINE 2019-06-29 00:00:00 Completed [facility] TDAP (ADACEL) VACCINE 2019-06-29 00:00:00 Completed [facility] TDAP (ADACEL) VACCINE 2019-06-29 00:00:00 Completed [facility] TDAP (ADACEL) VACCINE 2019-06-29 00:00:00 Completed [facility] TDAP (ADACEL) VACCINE 2019-06-29 00:00:00 Completed [facility] TDAP (ADACEL) VACCINE 2019-06-29 00:00:00 Completed [facility] TDAP (ADACEL) VACCINE 2019-06-29 00:00:00 Completed [facility] TDAP (ADACEL) VACCINE 2019-06-29 00:00:00 Completed [facility] TDAP (ADACEL) VACCINE 2019-06-29 00:00:00 Completed [facility] TDAP (ADACEL) VACCINE 2019-06-29 00:00:00 Completed [facility] TDAP (ADACEL) VACCINE 2019-06-29 00:00:00 Completed [facility] TDAP (ADACEL) VACCINE 2019-06-29 00:00:00 Completed [facility] TDAP (ADACEL) VACCINE 2019-06-29 00:00:00 Completed [facility] TDAP (ADACEL) VACCINE 2019-06-29 00:00:00 Completed [facility] TDAP (ADACEL) VACCINE 2019-06-29 00:00:00 Completed [facility] TDAP (ADACEL) VACCINE 2019-06-29 00:00:00 Completed [facility] TDAP (ADACEL) VACCINE 2019-06-29 00:00:00 Completed [facility] TDAP (ADACEL) VACCINE 2019-06-29 00:00:00 Completed [facility] TDAP (ADACEL) VACCINE 2019-06-29 00:00:00 Completed [facility] TDAP (ADACEL) VACCINE 2019-06-29 00:00:00 Completed [facility] TDAP (ADACEL) VACCINE 2019-06-29 00:00:00 Completed [facility] TDAP (ADACEL) VACCINE 2019-06-29 00:00:00 Completed [facility] TDAP (ADACEL) VACCINE 2019-06-29 00:00:00 Completed [facility] TDAP (ADACEL) VACCINE 2019-06-29 00:00:00 Completed [facility] Influenza Virus Vaccine Quad .5 mL IM 6+ MO 2019-02-11 00:00:00 Completed [facility] Influenza Virus Vaccine Quad .5 mL IM 6+ MO 2019-02-11 00:00:00 Completed [facility] Influenza Virus Vaccine Quad .5 mL IM 6+ MO 2019-02-11 00:00:00 Completed [facility] Influenza Virus Vaccine Quad .5 mL IM 6+ MO 2019-02-11 00:00:00 Completed [facility] Influenza Virus Vaccine Quad .5 mL IM 6+ MO 2019-02-11 00:00:00 Completed [facility] Influenza Virus Vaccine Quad .5 mL IM 6+ MO 2019-02-11 00:00:00 Completed [facility] Influenza Virus Vaccine Quad .5 mL IM 6+ MO 2019-02-11 00:00:00 Completed [facility] Influenza Virus Vaccine Quad .5 mL IM 6+ MO 2019-02-11 00:00:00 Completed [facility] Influenza Virus Vaccine Quad .5 mL IM 6+ MO 2019-02-11 00:00:00 Completed [facility] Influenza Virus Vaccine Quad .5 mL IM 6+ MO 2019-02-11 00:00:00 Completed [facility] Influenza Virus Vaccine Quad .5 mL IM 6+ MO 2019-02-11 00:00:00 Completed [facility] Influenza Virus Vaccine Quad .5 mL IM 6+ MO 2019-02-11 00:00:00 Completed [facility] Influenza Virus Vaccine Quad .5 mL IM 6+ MO 2019-02-11 00:00:00 Completed [facility] Influenza Virus Vaccine Quad .5 mL IM 6+ MO 2019-02-11 00:00:00 Completed [facility] Influenza Virus Vaccine Quad .5 mL IM 6+ MO 2019-02-11 00:00:00 Completed [facility] Influenza Virus Vaccine Quad .5 mL IM 6+ MO 2019-02-11 00:00:00 Completed [facility] Influenza Virus Vaccine Quad .5 mL IM 6+ MO 2019-02-11 00:00:00 Completed [facility] Influenza Virus Vaccine Quad .5 mL IM 6+ MO 2019-02-11 00:00:00 Completed [facility] Influenza Virus Vaccine Quad .5 mL IM 6+ MO 2019-02-11 00:00:00 Completed [facility] Influenza Virus Vaccine Quad .5 mL IM 6+ MO 2019-02-11 00:00:00 Completed [facility] Influenza Virus Vaccine Quad .5 mL IM 6+ MO 2019-02-11 00:00:00 Completed [facility] Influenza Virus Vaccine Quad .5 mL IM 6+ MO 2019-02-11 00:00:00 Completed [facility] Influenza Virus Vaccine Quad .5 mL IM 6+ MO 2019-02-11 00:00:00 Completed [facility] Influenza Virus Vaccine Quad .5 mL IM 6+ MO 2019-02-11 00:00:00 Completed [facility] Influenza Virus Vaccine Quad .5 mL IM 6+ MO 2019-02-11 00:00:00 Completed [facility] Influenza Virus Vaccine Quad .5 mL IM 6+ MO 2019-02-11 00:00:00 Completed [facility] Influenza Virus Vaccine Quad .5 mL IM 6+ MO 2019-02-11 00:00:00 Completed [facility] Influenza Virus Vaccine Quad .5 mL IM 6+ MO 2019-02-11 00:00:00 Completed [facility] Influenza Virus Vaccine Quad .5 mL IM 6+ MO 2019-02-11 00:00:00 Completed [facility] Influenza Virus Vaccine Quad .5 mL IM 6+ MO 2019-02-11 00:00:00 Completed [facility] Influenza Virus Vaccine Quad .5 mL IM 6+ MO 2019-02-11 00:00:00 Completed [facility] Influenza Virus Vaccine Quad .5 mL IM 6+ MO 2019-02-11 00:00:00 Completed [facility] Influenza Virus Vaccine Quad .5 mL IM 6+ MO 2019-02-11 00:00:00 Completed [facility] Influenza Virus Vaccine Quad .5 mL IM 6+ MO 2019-02-11 00:00:00 Completed [facility] Influenza Virus Vaccine Quad .5 mL IM 6+ MO 2019-02-11 00:00:00 Completed [facility] Influenza Virus Vaccine Quad .5 mL IM 6+ MO 2019-02-11 00:00:00 Completed [facility] Influenza Virus Vaccine Quad .5 mL IM 6+ MO 2019-02-11 00:00:00 Completed [facility] Influenza Virus Vaccine Quad .5 mL IM 6+ MO 2019-02-11 00:00:00 Completed [facility] Influenza Virus Vaccine Quad .5 mL IM 6+ MO 2019-02-11 00:00:00 Completed [facility] Influenza Virus Vaccine Quad .5 mL IM 6+ MO 2019-02-11 00:00:00 Completed [facility] Influenza Virus Vaccine Quad .5 mL IM 6+ MO 2019-02-11 00:00:00 Completed [facility] Influenza Virus Vaccine Quad .5 mL IM 6+ MO 2019-02-11 00:00:00 Completed [facility] Influenza Virus Vaccine Quad .5 mL IM 6+ MO 2019-02-11 00:00:00 Completed [facility] Influenza Virus Vaccine Quad .5 mL IM 6+ MO 2019-02-11 00:00:00 Completed [facility] Influenza Virus Vaccine Quad .5 mL IM 6+ MO 2019-02-11 00:00:00 Completed [facility] Influenza Virus Vaccine Quad .5 mL IM 6+ MO 2019-02-11 00:00:00 Completed [facility] Influenza Virus Vaccine Quad .5 mL IM 6+ MO 2019-02-11 00:00:00 Completed [facility] Influenza Virus Vaccine Quad .5 mL IM 6+ MO 2019-02-11 00:00:00 Completed [facility] Influenza Virus Vaccine Quad .5 mL IM 6+ MO 2019-02-11 00:00:00 Completed [facility] Influenza Virus Vaccine Quad .5 mL IM 6+ MO 2019-02-11 00:00:00 Completed [facility] Influenza Virus Vaccine Quad .5 mL IM 6+ MO 2019-02-11 00:00:00 Completed [facility] Influenza Virus Vaccine Quad .5 mL IM 6+ MO 2019-02-11 00:00:00 Completed [facility] Influenza Virus Vaccine Quad .5 mL IM 6+ MO 2019-02-11 00:00:00 Completed [facility] Influenza Virus Vaccine Quad .5 mL IM 6+ MO 2019-02-11 00:00:00 Completed [facility] Influenza Virus Vaccine Quad .5 mL IM 6+ MO 2019-02-11 00:00:00 Completed [facility] Influenza Virus Vaccine Quad .5 mL IM 6+ MO 2019-02-11 00:00:00 Completed [facility] Influenza Virus Vaccine Quad .5 mL IM 6+ MO 2019-02-11 00:00:00 Completed [facility] Influenza Virus Vaccine Quad .5 mL IM 6+ MO 2019-02-11 00:00:00 Completed [facility] Influenza Virus Vaccine Quad .5 mL IM 6+ MO 2019-02-11 00:00:00 Completed [facility] Influenza Virus Vaccine Quad .5 mL IM 6+ MO 2019-02-11 00:00:00 Completed [facility] Influenza Virus Vaccine Quad .5 mL IM 6+ MO 2019-02-11 00:00:00 Completed [facility] Influenza Virus Vaccine Quad .5 mL IM 6+ MO 2019-02-11 00:00:00 Completed [facility] Influenza Virus Vaccine Quad .5 mL IM 6+ MO 2019-02-11 00:00:00 Completed [facility] Influenza Virus Vaccine Quad .5 mL IM 6+ MO 2019-02-11 00:00:00 Completed [facility] Influenza Virus Vaccine Quad .5 mL IM 6+ MO 2019-02-11 00:00:00 Completed [facility] Influenza Virus Vaccine Quad .5 mL IM 6+ MO 2019-02-11 00:00:00 Completed [facility] Influenza Virus Vaccine Quad .5 mL IM 6+ MO 2019-02-11 00:00:00 Completed [facility] Influenza Virus Vaccine Quad .5 mL IM 6+ MO 2019-02-11 00:00:00 Completed [facility] Influenza Virus Vaccine Quad .5 mL IM 6+ MO 2019-02-11 00:00:00 Completed [facility] Influenza Virus Vaccine Quad .5 mL IM 6+ MO 2019-02-11 00:00:00 Completed [facility] Influenza Virus Vaccine Quad .5 mL IM 6+ MO 2019-02-11 00:00:00 Completed [facility] Influenza Virus Vaccine Quad .5 mL IM 6+ MO 2019-02-11 00:00:00 Completed [facility] Influenza Virus Vaccine Quad .5 mL IM 6+ MO 2019-02-11 00:00:00 Completed [facility] Influenza Virus Vaccine Quad .5 mL IM 6+ MO 2019-02-11 00:00:00 Completed [facility] Influenza Virus Vaccine Quad .5 mL IM 6+ MO 2019-02-11 00:00:00 Completed [facility] Varicella (varivax)(chicken pox) 2018-02-12 00:00:00 Completed [facility] Varicella (varivax)(chicken pox) 2018-02-12 00:00:00 Completed [facility] Varicella (varivax)(chicken pox) 2018-02-12 00:00:00 Completed [facility] Varicella (varivax)(chicken pox) 2018-02-12 00:00:00 Completed [facility] Varicella (varivax)(chicken pox) 2018-02-12 00:00:00 Completed [facility] Varicella (varivax)(chicken pox) 2018-02-12 00:00:00 Completed [facility] Varicella (varivax)(chicken pox) 2018-02-12 00:00:00 Completed [facility] Varicella (varivax)(chicken pox) 2018-02-12 00:00:00 Completed [facility] Varicella (varivax)(chicken pox) 2018-02-12 00:00:00 Completed [facility] Varicella (varivax)(chicken pox) 2018-02-12 00:00:00 Completed [facility] Varicella (varivax)(chicken pox) 2018-02-12 00:00:00 Completed [facility] Varicella (varivax)(chicken pox) 2018-02-12 00:00:00 Completed [facility] Varicella (varivax)(chicken pox) 2018-02-12 00:00:00 Completed [facility] Varicella (varivax)(chicken pox) 2018-02-12 00:00:00 Completed [facility] Varicella (varivax)(chicken pox) 2018-02-12 00:00:00 Completed [facility] Varicella (varivax)(chicken pox) 2018-02-12 00:00:00 Completed [facility] Varicella (varivax)(chicken pox) 2018-02-12 00:00:00 Completed [facility] Varicella (varivax)(chicken pox) 2018-02-12 00:00:00 Completed [facility] Varicella (varivax)(chicken pox) 2018-02-12 00:00:00 Completed [facility] Varicella (varivax)(chicken pox) 2018-02-12 00:00:00 Completed [facility] Varicella (varivax)(chicken pox) 2018-02-12 00:00:00 Completed [facility] Varicella (varivax)(chicken pox) 2018-02-12 00:00:00 Completed [facility] Varicella (varivax)(chicken pox) 2018-02-12 00:00:00 Completed [facility] Varicella (varivax)(chicken pox) 2018-02-12 00:00:00 Completed [facility] Varicella (varivax)(chicken pox) 2018-02-12 00:00:00 Completed [facility] Varicella (varivax)(chicken pox) 2018-02-12 00:00:00 Completed [facility] Varicella (varivax)(chicken pox) 2018-02-12 00:00:00 Completed [facility] Varicella (varivax)(chicken pox) 2018-02-12 00:00:00 Completed [facility] Varicella (varivax)(chicken pox) 2018-02-12 00:00:00 Completed [facility] Varicella (varivax)(chicken pox) 2018-02-12 00:00:00 Completed [facility] Varicella (varivax)(chicken pox) 2018-02-12 00:00:00 Completed [facility] Varicella (varivax)(chicken pox) 2018-02-12 00:00:00 Completed [facility] Varicella (varivax)(chicken pox) 2018-02-12 00:00:00 Completed [facility] Varicella (varivax)(chicken pox) 2018-02-12 00:00:00 Completed [facility] Varicella (varivax)(chicken pox) 2018-02-12 00:00:00 Completed [facility] Varicella (varivax)(chicken pox) 2018-02-12 00:00:00 Completed [facility] Varicella (varivax)(chicken pox) 2018-02-12 00:00:00 Completed [facility] Varicella (varivax)(chicken pox) 2018-02-12 00:00:00 Completed [facility] Varicella (varivax)(chicken pox) 2018-02-12 00:00:00 Completed [facility] Varicella (varivax)(chicken pox) 2018-02-12 00:00:00 Completed [facility] Varicella (varivax)(chicken pox) 2018-02-12 00:00:00 Completed [facility] Varicella (varivax)(chicken pox) 2018-02-12 00:00:00 Completed [facility] Varicella (varivax)(chicken pox) 2018-02-12 00:00:00 Completed [facility] Varicella (varivax)(chicken pox) 2018-02-12 00:00:00 Completed [facility] Varicella (varivax)(chicken pox) 2018-02-12 00:00:00 Completed [facility] Varicella (varivax)(chicken pox) 2018-02-12 00:00:00 Completed [facility] Varicella (varivax)(chicken pox) 2018-02-12 00:00:00 Completed [facility] Varicella (varivax)(chicken pox) 2018-02-12 00:00:00 Completed [facility] Varicella (varivax)(chicken pox) 2018-02-12 00:00:00 Completed [facility] Varicella (varivax)(chicken pox) 2018-02-12 00:00:00 Completed [facility] Varicella (varivax)(chicken pox) 2018-02-12 00:00:00 Completed [facility] Varicella (varivax)(chicken pox) 2018-02-12 00:00:00 Completed [facility] Varicella (varivax)(chicken pox) 2018-02-12 00:00:00 Completed [facility] Varicella (varivax)(chicken pox) 2018-02-12 00:00:00 Completed [facility] Varicella (varivax)(chicken pox) 2018-02-12 00:00:00 Completed [facility] Varicella (varivax)(chicken pox) 2018-02-12 00:00:00 Completed [facility] Varicella (varivax)(chicken pox) 2018-02-12 00:00:00 Completed [facility] Varicella (varivax)(chicken pox) 2018-02-12 00:00:00 Completed [facility] Varicella (varivax)(chicken pox) 2018-02-12 00:00:00 Completed [facility] Varicella (varivax)(chicken pox) 2018-02-12 00:00:00 Completed [facility] Varicella (varivax)(chicken pox) 2018-02-12 00:00:00 Completed [facility] Varicella (varivax)(chicken pox) 2018-02-12 00:00:00 Completed [facility] Varicella (varivax)(chicken pox) 2018-02-12 00:00:00 Completed [facility] Varicella (varivax)(chicken pox) 2018-02-12 00:00:00 Completed [facility] Varicella (varivax)(chicken pox) 2018-02-12 00:00:00 Completed [facility] Varicella (varivax)(chicken pox) 2018-02-12 00:00:00 Completed [facility] Varicella (varivax)(chicken pox) 2018-02-12 00:00:00 Completed [facility] Varicella (varivax)(chicken pox) 2018-02-12 00:00:00 Completed [facility] Varicella (varivax)(chicken pox) 2018-02-12 00:00:00 Completed [facility] Varicella (varivax)(chicken pox) 2018-02-12 00:00:00 Completed [facility] Varicella (varivax)(chicken pox) 2018-02-12 00:00:00 Completed [facility] Varicella (varivax)(chicken pox) 2018-02-12 00:00:00 Completed [facility] Varicella (varivax)(chicken pox) 2018-02-12 00:00:00 Completed [facility] Varicella (varivax)(chicken pox) 2018-02-12 00:00:00 Completed [facility] Varicella (varivax)(chicken pox) 2018-02-12 00:00:00 [facility] [facility]-17 00:00:00 Completed [facility] TDAP 2017-12-17 00:00:00 Completed [facility] TDAP 2017-12-17 00:00:00 Completed [facility] TDAP 2017-12-17 00:00:00 Completed [facility] TDAP 2017-12-17 00:00:00 Completed [facility] TDAP 2017-12-17 00:00:00 Completed [facility] TDAP 2017-12-17 00:00:00 Completed [facility] TDAP 2017-12-17 00:00:00 Completed [facility] TDAP 2017-12-17 00:00:00 Completed [facility] TDAP 2017-12-17 00:00:00 Completed [facility] TDAP 2017-12-17 00:00:00 Completed [facility] TDAP 2017-12-17 00:00:00 Completed [facility] TDAP 2017-12-17 00:00:00 Completed [facility] TDAP 2017-12-17 00:00:00 Completed [facility] TDAP 2017-12-17 00:00:00 Completed [facility] TDAP 2017-12-17 00:00:00 Completed [facility] TDAP 2017-12-17 00:00:00 Completed [facility] TDAP 2017-12-17 00:00:00 Completed [facility] TDAP 2017-12-17 00:00:00 Completed [facility] TDAP 2017-12-17 00:00:00 Completed [facility] TDAP 2017-12-17 00:00:00 Completed [facility] TDAP 2017-12-17 00:00:00 Completed [facility] TDAP 2017-12-17 00:00:00 Completed [facility] TDAP 2017-12-17 00:00:00 Completed [facility] TDAP 2017-12-17 00:00:00 Completed [facility] TDAP 2017-12-17 00:00:00 Completed [facility] TDAP 2017-12-17 00:00:00 Completed [facility] TDAP 2017-12-17 00:00:00 Completed [facility] TDAP 2017-12-17 00:00:00 Completed [facility] TDAP 2017-12-17 00:00:00 Completed [facility] TDAP 2017-12-17 00:00:00 Completed [facility] TDAP 2017-12-17 00:00:00 Completed [facility] TDAP 2017-12-17 00:00:00 Completed [facility] TDAP 2017-12-17 00:00:00 Completed [facility] TDAP 2017-12-17 00:00:00 Completed [facility] TDAP 2017-12-17 00:00:00 Completed [facility] TDAP 2017-12-17 00:00:00 Completed [facility] TDAP 2017-12-17 00:00:00 Completed [facility] TDAP 2017-12-17 00:00:00 Completed [facility] TDAP 2017-12-17 00:00:00 Completed [facility] TDAP 2017-12-17 00:00:00 Completed [facility] TDAP 2017-12-17 00:00:00 Completed [facility] TDAP 2017-12-17 00:00:00 Completed [facility] TDAP 2017-12-17 00:00:00 Completed [facility] TDAP 2017-12-17 00:00:00 Completed [facility] TDAP 2017-12-17 00:00:00 Completed [facility] TDAP 2017-12-17 00:00:00 Completed [facility] TDAP 2017-12-17 00:00:00 Completed [facility] TDAP 2017-12-17 00:00:00 Completed [facility] TDAP 2017-12-17 00:00:00 Completed [facility] TDAP 2017-12-17 00:00:00 Completed [facility] TDAP 2017-12-17 00:00:00 Completed [facility] TDAP 2017-12-17 00:00:00 Completed [facility] TDAP 2017-12-17 00:00:00 Completed [facility] TDAP 2017-12-17 00:00:00 Completed [facility] TDAP 2017-12-17 00:00:00 Completed [facility] TDAP 2017-12-17 00:00:00 Completed [facility] TDAP 2017-12-17 00:00:00 Completed [facility] TDAP 2017-12-17 00:00:00 Completed [facility] TDAP 2017-12-17 00:00:00 Completed [facility] TDAP 2017-12-17 00:00:00 Completed [facility] TDAP 2017-12-17 00:00:00 Completed [facility] TDAP 2017-12-17 00:00:00 Completed [facility] TDAP 2017-12-17 00:00:00 Completed [facility] TDAP 2017-12-17 00:00:00 Completed [facility] TDAP 2017-12-17 00:00:00 Completed [facility] TDAP 2017-12-17 00:00:00 Completed [facility] TDAP 2017-12-17 00:00:00 Completed [facility] TDAP 2017-12-17 00:00:00 Completed [facility] TDAP 2017-12-17 00:00:00 Completed [facility] TDAP 2017-12-17 00:00:00 Completed [facility] TDAP 2017-12-17 00:00:00 Completed [facility] TDAP 2017-12-17 00:00:00 Completed [facility] TDAP 2017-12-17 00:00:00 Completed [facility] TDAP 2017-12-17 00:00:00 Completed [facility] Varicella (varivax)(chicken pox) 2017-01-03 00:00:00 Completed [facility] Varicella (varivax)(chicken pox) 2017-01-03 00:00:00 Completed [facility] Varicella (varivax)(chicken pox) 2017-01-03 00:00:00 Completed [facility] Varicella (varivax)(chicken pox) 2017-01-03 00:00:00 Completed [facility] Varicella (varivax)(chicken pox) 2017-01-03 00:00:00 Completed [facility] Varicella (varivax)(chicken pox) 2017-01-03 00:00:00 Completed [facility] Varicella (varivax)(chicken pox) 2017-01-03 00:00:00 Completed [facility] Varicella (varivax)(chicken pox) 2017-01-03 00:00:00 Completed [facility] Varicella (varivax)(chicken pox) 2017-01-03 00:00:00 Completed [facility] Varicella (varivax)(chicken pox) 2017-01-03 00:00:00 Completed [facility] Varicella (varivax)(chicken pox) 2017-01-03 00:00:00 Completed [facility] Varicella (varivax)(chicken pox) 2017-01-03 00:00:00 Completed [facility] Varicella (varivax)(chicken pox) 2017-01-03 00:00:00 Completed [facility] Varicella (varivax)(chicken pox) 2017-01-03 00:00:00 Completed [facility] Varicella (varivax)(chicken pox) 2017-01-03 00:00:00 Completed [facility] Varicella (varivax)(chicken pox) 2017-01-03 00:00:00 Completed [facility] Varicella (varivax)(chicken pox) 2017-01-03 00:00:00 Completed [facility] Varicella (varivax)(chicken pox) 2017-01-03 00:00:00 Completed [facility] Varicella (varivax)(chicken pox) 2017-01-03 00:00:00 Completed [facility] Varicella (varivax)(chicken pox) 2017-01-03 00:00:00 Completed [facility] Varicella (varivax)(chicken pox) 2017-01-03 00:00:00 Completed [facility] Varicella (varivax)(chicken pox) 2017-01-03 00:00:00 Completed [facility] Varicella (varivax)(chicken pox) 2017-01-03 00:00:00 Completed [facility] Varicella (varivax)(chicken pox) 2017-01-03 00:00:00 Completed [facility] Varicella (varivax)(chicken pox) 2017-01-03 00:00:00 Completed [facility] Varicella (varivax)(chicken pox) 2017-01-03 00:00:00 Completed [facility] Varicella (varivax)(chicken pox) 2017-01-03 00:00:00 Completed [facility] Varicella (varivax)(chicken pox) 2017-01-03 00:00:00 Completed [facility] Varicella (varivax)(chicken pox) 2017-01-03 00:00:00 Completed [facility] Varicella (varivax)(chicken pox) 2017-01-03 00:00:00 Completed [facility] Varicella (varivax)(chicken pox) 2017-01-03 00:00:00 Completed [facility] Varicella (varivax)(chicken pox) 2017-01-03 00:00:00 Completed [facility] Varicella (varivax)(chicken pox) 2017-01-03 00:00:00 Completed [facility] Varicella (varivax)(chicken pox) 2017-01-03 00:00:00 Completed [facility] Varicella (varivax)(chicken pox) 2017-01-03 00:00:00 Completed [facility] Varicella (varivax)(chicken pox) 2017-01-03 00:00:00 Completed [facility] Varicella (varivax)(chicken pox) 2017-01-03 00:00:00 Completed [facility] Varicella (varivax)(chicken pox) 2017-01-03 00:00:00 Completed [facility] Varicella (varivax)(chicken pox) 2017-01-03 00:00:00 Completed [facility] Varicella (varivax)(chicken pox) 2017-01-03 00:00:00 Completed [facility] Varicella (varivax)(chicken pox) 2017-01-03 00:00:00 Completed [facility] Varicella (varivax)(chicken pox) 2017-01-03 00:00:00 Completed [facility] Varicella (varivax)(chicken pox) 2017-01-03 00:00:00 Completed [facility] Varicella (varivax)(chicken pox) 2017-01-03 00:00:00 Completed [facility] Varicella (varivax)(chicken pox) 2017-01-03 00:00:00 Completed [facility] Varicella (varivax)(chicken pox) 2017-01-03 00:00:00 Completed [facility] Varicella (varivax)(chicken pox) 2017-01-03 00:00:00 Completed [facility] Varicella (varivax)(chicken pox) 2017-01-03 00:00:00 Completed [facility] Varicella (varivax)(chicken pox) 2017-01-03 00:00:00 Completed [facility] Varicella (varivax)(chicken pox) 2017-01-03 00:00:00 Completed [facility] Varicella (varivax)(chicken pox) 2017-01-03 00:00:00 Completed [facility] Varicella (varivax)(chicken pox) 2017-01-03 00:00:00 Completed [facility] Varicella (varivax)(chicken pox) 2017-01-03 00:00:00 Completed [facility] Varicella (varivax)(chicken pox) 2017-01-03 00:00:00 Completed [facility] Varicella (varivax)(chicken pox) 2017-01-03 00:00:00 Completed [facility] Varicella (varivax)(chicken pox) 2017-01-03 00:00:00 Completed [facility] Varicella (varivax)(chicken pox) 2017-01-03 00:00:00 Completed [facility] Varicella (varivax)(chicken pox) 2017-01-03 00:00:00 Completed [facility] Varicella (varivax)(chicken pox) 2017-01-03 00:00:00 Completed [facility] Varicella (varivax)(chicken pox) 2017-01-03 00:00:00 Completed [facility] Varicella (varivax)(chicken pox) 2017-01-03 00:00:00 Completed [facility] Varicella (varivax)(chicken pox) 2017-01-03 00:00:00 Completed [facility] Varicella (varivax)(chicken pox) 2017-01-03 00:00:00 Completed [facility] Varicella (varivax)(chicken pox) 2017-01-03 00:00:00 Completed [facility] Varicella (varivax)(chicken pox) 2017-01-03 00:00:00 Completed [facility] Varicella (varivax)(chicken pox) 2017-01-03 00:00:00 Completed [facility] Varicella (varivax)(chicken pox) 2017-01-03 00:00:00 Completed [facility] Varicella (varivax)(chicken pox) 2017-01-03 00:00:00 Completed [facility] Varicella (varivax)(chicken pox) 2017-01-03 00:00:00 Completed [facility] Varicella (varivax)(chicken pox) 2017-01-03 00:00:00 Completed [facility] Varicella (varivax)(chicken pox) 2017-01-03 00:00:00 Completed [facility] Varicella (varivax)(chicken pox) 2017-01-03 00:00:00 Completed [facility] Varicella (varivax)(chicken pox) 2017-01-03 00:00:00 Completed [facility] Varicella (varivax)(chicken pox) 2017-01-03 00:00:00 Completed [facility] Varicella (varivax)(chicken pox) 2017-01-03 00:00:00 Completed [facility] TDAP 2016-10-03 00:00:00 Completed [facility] TDAP 2016-10-03 00:00:00 Completed [facility] TDAP 2016-10-03 00:00:00 Completed [facility] TDAP 2016-10-03 00:00:00 Completed [facility] TDAP 2016-10-03 00:00:00 Completed [facility] TDAP 2016-10-03 00:00:00 Completed [facility] TDAP 2016-10-03 00:00:00 Completed [facility] TDAP 2016-10-03 00:00:00 Completed [facility] TDAP 2016-10-03 00:00:00 Completed [facility] TDAP 2016-10-03 00:00:00 Completed [facility] TDAP 2016-10-03 00:00:00 Completed [facility] TDAP 2016-10-03 00:00:00 Completed [facility] TDAP 2016-10-03 00:00:00 Completed [facility] TDAP 2016-10-03 00:00:00 Completed [facility] TDAP 2016-10-03 00:00:00 Completed [facility] TDAP 2016-10-03 00:00:00 Completed [facility] TDAP 2016-10-03 00:00:00 Completed [facility] TDAP 2016-10-03 00:00:00 Completed [facility] TDAP 2016-10-03 00:00:00 Completed [facility] TDAP 2016-10-03 00:00:00 Completed [facility] TDAP 2016-10-03 00:00:00 Completed [facility] TDAP 2016-10-03 00:00:00 Completed [facility] TDAP 2016-10-03 00:00:00 Completed [facility] TDAP 2016-10-03 00:00:00 Completed [facility] TDAP 2016-10-03 00:00:00 Completed [facility] TDAP 2016-10-03 00:00:00 Completed [facility] TDAP 2016-10-03 00:00:00 Completed [facility] TDAP 2016-10-03 00:00:00 Completed [facility] TDAP 2016-10-03 00:00:00 Completed [facility] TDAP 2016-10-03 00:00:00 Completed [facility] TDAP 2016-10-03 00:00:00 Completed [facility] TDAP 2016-10-03 00:00:00 Completed [facility] TDAP 2016-10-03 00:00:00 Completed [facility] TDAP 2016-10-03 00:00:00 Completed [facility] TDAP 2016-10-03 00:00:00 Completed [facility] TDAP 2016-10-03 00:00:00 Completed [facility] TDAP 2016-10-03 00:00:00 Completed [facility] TDAP 2016-10-03 00:00:00 Completed [facility] TDAP 2016-10-03 00:00:00 Completed [facility] TDAP 2016-10-03 00:00:00 Completed [facility] TDAP 2016-10-03 00:00:00 Completed [facility] TDAP 2016-10-03 00:00:00 Completed [facility] TDAP 2016-10-03 00:00:00 Completed [facility] TDAP 2016-10-03 00:00:00 Completed [facility] TDAP 2016-10-03 00:00:00 Completed [facility] TDAP 2016-10-03 00:00:00 Completed [facility] TDAP 2016-10-03 00:00:00 Completed [facility] TDAP 2016-10-03 00:00:00 Completed [facility] TDAP 2016-10-03 00:00:00 Completed [facility] TDAP 2016-10-03 00:00:00 Completed [facility] TDAP 2016-10-03 00:00:00 Completed [facility] TDAP 2016-10-03 00:00:00 Completed [facility] TDAP 2016-10-03 00:00:00 Completed [facility] TDAP 2016-10-03 00:00:00 Completed [facility] TDAP 2016-10-03 00:00:00 Completed [facility] TDAP 2016-10-03 00:00:00 Completed [facility] TDAP 2016-10-03 00:00:00 Completed [facility] TDAP 2016-10-03 00:00:00 Completed [facility] TDAP 2016-10-03 00:00:00 Completed [facility] TDAP 2016-10-03 00:00:00 Completed [facility] TDAP 2016-10-03 00:00:00 Completed [facility] TDAP 2016-10-03 00:00:00 Completed [facility] TDAP 2016-10-03 00:00:00 Completed [facility] TDAP 2016-10-03 00:00:00 Completed [facility] TDAP 2016-10-03 00:00:00 Completed [facility] TDAP 2016-10-03 00:00:00 Completed [facility] TDAP 2016-10-03 00:00:00 Completed [facility] TDAP 2016-10-03 00:00:00 Completed [facility] TDAP 2016-10-03 00:00:00 Completed [facility] TDAP 2016-10-03 00:00:00 Completed [facility] TDAP 2016-10-03 00:00:00 Completed [facility] TDAP 2016-10-03 00:00:00 Completed [facility] TDAP 2016-10-03 00:00:00 Completed [facility] TDAP 2016-10-03 00:00:00 Completed [facility] TDAP 2016-10-03 00:00:00 Completed [facility] HPV 2010-07-26 00:00:00 Completed [facility] HPV 2010-07-26 00:00:00 Completed [facility] HPV 2010-07-26 00:00:00 Completed [facility] HPV 2010-07-26 00:00:00 Completed [facility] HPV 2010-07-26 00:00:00 Completed [facility] HPV 2010-07-26 00:00:00 Completed [facility] HPV 2010-07-26 00:00:00 Completed [facility] HPV 2010-07-26 00:00:00 Completed [facility] HPV 2010-07-26 00:00:00 Completed [facility] HPV 2010-07-26 00:00:00 Completed [facility] HPV 2010-07-26 00:00:00 Completed [facility] HPV 2010-07-26 00:00:00 Completed [facility] HPV 2010-07-26 00:00:00 Completed [facility] HPV 2010-07-26 00:00:00 Completed [facility] HPV 2010-07-26 00:00:00 Completed [facility] HPV 2010-07-26 00:00:00 Completed [facility] HPV 2010-07-26 00:00:00 Completed [facility] HPV 2010-07-26 00:00:00 Completed [facility] HPV 2010-07-26 00:00:00 Completed [facility] HPV 2010-07-26 00:00:00 Completed [facility] HPV 2010-07-26 00:00:00 Completed [facility] HPV 2010-07-26 00:00:00 Completed [facility] HPV 2010-07-26 00:00:00 Completed [facility] HPV 2010-07-26 00:00:00 Completed [facility] HPV 2010-07-26 00:00:00 Completed [facility] HPV 2010-07-26 00:00:00 Completed [facility] HPV 2010-07-26 00:00:00 Completed [facility] HPV 2010-07-26 00:00:00 Completed [facility] HPV 2010-07-26 00:00:00 Completed [facility] HPV 2010-07-26 00:00:00 Completed [facility] HPV 2010-07-26 00:00:00 Completed [facility] HPV 2010-07-26 00:00:00 Completed [facility] HPV 2010-07-26 00:00:00 Completed [facility] HPV 2010-07-26 00:00:00 Completed [facility] HPV 2010-07-26 00:00:00 Completed [facility] HPV 2010-07-26 00:00:00 Completed [facility] HPV 2010-07-26 00:00:00 Completed [facility] HPV 2010-07-26 00:00:00 Completed [facility] HPV 2010-07-26 00:00:00 Completed [facility] HPV 2010-07-26 00:00:00 Completed [facility] HPV 2010-07-26 00:00:00 Completed [facility] HPV 2010-07-26 00[facility]00:00 [facility] [facility] HPV 2010-07-26 00:00:00 Completed [facility] HPV 2010-07-26 00:00:00 Completed [facility] HPV 2010-07-26 00:00:00 Completed [facility] HPV 2010-07-26 00:00:00 Completed [facility] HPV 2010-07-26 00:00:00 Completed [facility] HPV 2010-07-26 00:00:00 Completed [facility] HPV 2010-07-26 00:00:00 Completed [facility] HPV 2010-07-26 00:00:00 Completed [facility] HPV 2010-07-26 00:00:00 Completed [facility] HPV 2010-07-26 00:00:00 Completed [facility] HPV 2010-07-26 00:00:00 Completed [facility] HPV 2010-07-26 00:00:00 Completed [facility] HPV 2010-07-26 00:00:00 Completed [facility] HPV 2010-07-26 00:00:00 Completed [facility] HPV 2010-07-26 00:00:00 Completed [facility] HPV 2010-07-26 00:00:00 Completed [facility] HPV 2010-07-26 00:00:00 Completed [facility] HPV 2010-07-26 00:00:00 Completed [facility] HPV 2010-07-26 00:00:00 Completed [facility] HPV 2010-07-26 00:00:00 Completed [facility] HPV 2010-07-26 00:00:00 Completed [facility] HPV 2010-07-26 00:00:00 Completed [facility] HPV 2010-07-26 00:00:00 Completed [facility] HPV 2010-07-26 00:00:00 Completed [facility] HPV 2010-07-26 00:00:00 Completed [facility] HPV 2010-07-26 00:00:00 Completed [facility] HPV 2010-07-26 00:00:00 Completed [facility] HPV 2010-07-26 00:00:00 Completed [facility] HPV 2010-07-26 00:00:00 Completed [facility] HPV 2010-07-26 00:00:00 Completed [facility] HPV 2010-07-26 00:00:00 Completed [facility] HPV 2010-07-26 00:00:00 Completed [facility] HPV 2010-07-26 00:00:00 Completed [facility] HPV 2010-06-20 00:00:00 Completed [facility] HPV 2010-06-20 00:00:00 Completed [facility] HPV 2010-06-20 00:00:00 Completed [facility] HPV 2010-06-20 00:00:00 Completed [facility] HPV 2010-06-20 00:00:00 Completed [facility] HPV 2010-06-20 00:00:00 Completed [facility] HPV 2010-06-20 00:00:00 Completed [facility] HPV 2010-06-20 00:00:00 Completed [facility] HPV 2010-06-20 00:00:00 Completed [facility] HPV 2010-06-20 00:00:00 Completed [facility] HPV 2010-06-20 00:00:00 Completed [facility] HPV 2010-06-20 00:00:00 Completed [facility] HPV 2010-06-20 00:00:00 Completed [facility] HPV 2010-06-20 00:00:00 Completed [facility] HPV 2010-06-20 00:00:00 Completed [facility] HPV 2010-06-20 00:00:00 Completed [facility] HPV 2010-06-20 00:00:00 Completed [facility] HPV 2010-06-20 00:00:00 Completed [facility] HPV 2010-06-20 00:00:00 Completed [facility] HPV 2010-06-20 00:00:00 Completed [facility] HPV 2010-06-20 00:00:00 Completed [facility] HPV 2010-06-20 00:00:00 Completed [facility] HPV 2010-06-20 00:00:00 Completed [facility] HPV 2010-06-20 00:00:00 Completed [facility] HPV 2010-06-20 00:00:00 Completed [facility] HPV 2010-06-20 00:00:00 Completed [facility] HPV 2010-06-20 00:00:00 Completed [facility] HPV 2010-06-20 00:00:00 Completed [facility] HPV 2010-06-20 00:00:00 Completed [facility] HPV 2010-06-20 00:00:00 Completed [facility] HPV 2010-06-20 00:00:00 Completed [facility] HPV 2010-06-20 00:00:00 Completed [facility] HPV 2010-06-20 00:00:00 Completed [facility] HPV 2010-06-20 00:00:00 Completed [facility] HPV 2010-06-20 00:00:00 Completed [facility] HPV 2010-06-20 00:00:00 Completed [facility] HPV 2010-06-20 00:00:00 Completed [facility] HPV 2010-06-20 00:00:00 Completed [facility] HPV 2010-06-20 00:00:00 Completed [facility] HPV 2010-06-20 00:00:00 Completed [facility] HPV 2010-06-20 00:00:00 Completed [facility] HPV 2010-06-20 00:00:00 Completed [facility] HPV 2010-06-20 00:00:00 Completed [facility] HPV 2010-06-20 00:00:00 Completed [facility] HPV 2010-06-20 00:00:00 Completed [facility] HPV 2010-06-20 00:00:00 Completed [facility] HPV 2010-06-20 00:00:00 Completed [facility] HPV 2010-06-20 00:00:00 Completed [facility] HPV 2010-06-20 00:00:00 Completed [facility] HPV 2010-06-20 00:00:00 Completed [facility] HPV 2010-06-20 00:00:00 Completed [facility] HPV 2010-06-20 00:00:00 Completed [facility] HPV 2010-06-20 00:00:00 Completed [facility] HPV 2010-06-20 00:00:00 Completed [facility] HPV 2010-06-20 00:00:00 Completed [facility] HPV 2010-06-20 00:00:00 Completed [facility] HPV 2010-06-20 00:00:00 Completed [facility] HPV 2010-06-20 00:00:00 Completed [facility] HPV 2010-06-20 00:00:00 Completed [facility] HPV 2010-06-20 00:00:00 Completed [facility] HPV 2010-06-20 00:00:00 Completed [facility] HPV 2010-06-20 00:00:00 Completed [facility] HPV 2010-06-20 00:00:00 Completed [facility] HPV 2010-06-20 00:00:00 Completed [facility] HPV 2010-06-20 00:00:00 Completed [facility] HPV 2010-06-20 00:00:00 Completed [facility] HPV 2010-06-20 00:00:00 Completed [facility] HPV 2010-06-20 00:00:00 Completed [facility] HPV 2010-06-20 00:00:00 Completed [facility] HPV 2010-06-20 00:00:00 Completed [facility] HPV 2010-06-20 00:00:00 Completed [facility] HPV 2010-06-20 00:00:00 Completed [facility] Varicella (varivax)(chicken pox) 2010-06-20 00:00:00 Completed [facility] TDAP 2010-06-20 00:00:00 Completed [facility] Meningococcal Polysaccharide (groups A, C, Y and W-135) conjugate vaccine (MCV4P) 2010-06-20 00:00:00 Completed [facility] DTaP, Unspecified Formulation 2010-06-20 00:00:00 Completed [facility] HPV 2010-06-20 00:00:00 Completed [facility] Varicella (varivax)(chicken pox) 2010-06-20 00:00:00 Completed [facility] TDAP 2010-06-20 00:00:00 Completed [facility] Meningococcal Polysaccharide (groups A, C, Y and W-135) conjugate vaccine (MCV4P) 2010-06-20 00:00:00 Completed [facility] DTaP, Unspecified Formulation 2010-06-20 00:00:00 Completed [facility] HPV 2010-06-20 00:00:00 Completed [facility] Varicella (varivax)(chicken pox) 2010-06-20 00:00:00 Completed [facility] TDAP 2010-06-20 00:00:00 Completed [facility] Meningococcal Polysaccharide (groups A, C, Y and W-135) conjugate vaccine (MCV4P) 2010-06-20 00:00:00 Completed [facility] DTaP, Unspecified Formulation 2010-06-20 00:00:00 Completed [facility] HPV 2010-06-20 00:00:00 Completed [facility] Varicella (varivax)(chicken pox) 2010-06-20 00:00:00 Completed [facility] TDAP 2010-06-20 00:00:00 Completed [facility] Meningococcal Polysaccharide (groups A, C, Y and W-135) conjugate vaccine (MCV4P) 2010-06-20 00:00:00 Completed [facility] DTaP, Unspecified Formulation 2010-06-20 00:00:00 Completed [facility] IPV 2001-05-21 00:00:00 Completed [facility] MMR 2001-05-21 00:00:00 Completed [facility] HIB 4 Dose Schedule 2001-05-21 00:00:00 Completed [facility] DTaP, Unspecified Formulation 2001-05-21 00:00:00 Completed [facility] IPV 2001-05-21 00:00:00 Completed [facility] MMR 2001-05-21 00:00:00 Completed [facility] HIB 4 Dose Schedule 2001-05-21 00:00:00 Completed [facility] DTaP, Unspecified Formulation 2001-05-21 00:00:00 Completed [facility] IPV 2001-05-21 00:00:00 Completed [facility] MMR 2001-05-21 00:00:00 Completed [facility] HIB 4 Dose Schedule 2001-05-21 00:00:00 Completed [facility] DTaP, Unspecified Formulation 2001-05-21 00:00:00 Completed [facility] IPV 2001-05-21 00:00:00 Completed [facility] MMR 2001-05-21 00:00:00 Completed [facility] HIB 4 Dose Schedule 2001-05-21 00:00:00 Completed [facility] DTaP, Unspecified Formulation 2001-05-21 00:00:00 Completed [facility] Varicella (varivax)(chicken pox) 1999-06-10 00:00:00 Completed [facility] Varicella (varivax)(chicken pox) 1999-06-10 00:00:00 Completed [facility] Varicella (varivax)(chicken pox) 1999-06-10 00:00:00 Completed [facility] Varicella (varivax)(chicken pox) 1999-06-10 00:00:00 Completed [facility] MMR 1999-06-09 00:00:00 Completed [facility] MMR 1999-06-09 00:00:00 Completed [facility] MMR 1999-06-09 00:00:00 Completed [facility] MMR 1999-06-09 00:00:00 Completed [facility] Pneumococcal 7 Conjugate, PCV7 (Prevnar7) 1999-06-05 00:00:00 Completed [facility] HIB 4 Dose Schedule 1999-06-05 00:00:00 Completed [facility] Hep B, Adol or Pedi Dosage 1999-06-05 00:00:00 Completed [facility] DTaP, Unspecified Formulation 1999-06-05 00:00:00 Completed [facility] Pneumococcal 7 Conjugate, PCV7 (Prevnar7) 1999-06-05 00:00:00 Completed [facility] HIB 4 Dose Schedule 1999-06-05 00:00:00 Completed [facility] Hep B, Adol or Pedi Dosage 1999-06-05 00:00:00 Completed [facility] DTaP, Unspecified Formulation 1999-06-05 00:00:00 Completed [facility] Pneumococcal 7 Conjugate, PCV7 (Prevnar7) 1999-06-05 00:00:00 Completed [facility] HIB 4 Dose Schedule 1999-06-05 00:00:00 Completed [facility] Hep B, Adol or Pedi Dosage 1999-06-05 00:00:00 Completed [facility] DTaP, Unspecified Formulation 1999-06-05 00:00:00 Completed [facility] Pneumococcal 7 Conjugate, PCV7 (Prevnar7) 1999-06-05 00:00:00 Completed [facility] HIB 4 Dose Schedule 1999-06-05 00:00:00 Completed [facility] Hep B, Adol or Pedi Dosage 1999-06-05 00:00:00 Completed [facility] DTaP, Unspecified Formulation 1999-06-05 00:00:00 Completed [facility] IPV 1997 00:00:00 Completed [facility] IPV 1997 00:00:00 Completed [facility] IPV 1997 00:00:00 Completed [facility] IPV 1997 00:00:00 Completed [facility] Pneumococcal 7 Conjugate, PCV7 (Prevnar7) 1997 00:00:00 Completed [facility] DTaP, Unspecified Formulation 1997 00:00:00 Completed [facility] Pneumococcal 7 Conjugate, PCV7 (Prevnar7) 1997 00:00:00 Completed [facility] DTaP, Unspecified Formulation 1997 00:00:00 Completed [facility] Pneumococcal 7 Conjugate, PCV7 (Prevnar7) 1997 00:00:00 Completed [facility] DTaP, Unspecified Formulation 1997 00:00:00 Completed [facility] Pneumococcal 7 Conjugate, PCV7 (Prevnar7) 1997 00:00:00 Completed [facility] DTaP, Unspecified Formulation 1997 00:00:00 Completed [facility] IPV 1997 00:00:00 Completed [facility] Pneumococcal 7 Conjugate, PCV7 (Prevnar7) 1997 00:00:00 Completed [facility] HIB 4 Dose Schedule 1997 00:00:00 Completed [facility] Hep B, Adol or Pedi Dosage 1997 00:00:00 Completed [facility] DTaP, Unspecified Formulation 1997 00:00:00 Completed [facility] IPV 1997 00:00:00 Completed [facility] Pneumococcal 7 Conjugate, PCV7 (Prevnar7) 1997 00:00:00 Completed [facility] HIB 4 Dose Schedule 1997 00:00:00 Completed [facility] Hep B, Adol or Pedi Dosage 1997 00:00:00 Completed [facility] DTaP, Unspecified Formulation 1997 00:00:00 Completed [facility] IPV 1997 00:00:00 Completed [facility] Pneumococcal 7 Conjugate, PCV7 (Prevnar7) 1997 00:00:00 Completed [facility] HIB 4 Dose Schedule 1997 00:00:00 Completed [facility] Hep B, Adol or Pedi Dosage 1997 00:00:00 Completed [facility] DTaP, Unspecified Formulation 1997 00:00:00 Completed [facility] IPV 1997 00:00:00 Completed [facility] Pneumococcal 7 Conjugate, PCV7 (Prevnar7) 1997 00:00:00 Completed [facility] HIB 4 Dose Schedule 1997 00:00:00 Completed [facility] Hep B, Adol or Pedi Dosage 1997 00:00:00 Completed [facility] DTaP, Unspecified Formulation 1997 00:00:00 Completed [facility] IPV 1997 00:00:00 Completed [facility] IPV 1997 00:00:00 Completed [facility] IPV 1997 00:00:00 Completed [facility] IPV 1997 00:00:00 Completed [facility] Pneumococcal 7 Conjugate, PCV7 (Prevnar7) 1997 00:00:00 Completed [facility] HIB 4 Dose Schedule 1997 00:00:00 Completed [facility] Hep B, Adol or Pedi Dosage 1997 00:00:00 Completed [facility] DTaP, Unspecified Formulation 1997 00:00:00 Completed [facility] Pneumococcal 7 Conjugate, PCV7 (Prevnar7) 1997 00:00:00 Completed [facility] HIB 4 Dose Schedule 1997 00:00:00 Completed [facility] Hep B, Adol or Pedi Dosage 1997 00:00:00 Completed [facility] DTaP, Unspecified Formulation 1997 00:00:00 Completed [facility] Pneumococcal 7 Conjugate, PCV7 (Prevnar7) 1997 00:00:00 Completed [facility] HIB 4 Dose Schedule 1997 00:00:00 Completed [facility] Hep B, Adol or Pedi Dosage 1997 00:00:00 Completed [facility] DTaP, Unspecified Formulation 1997 00:00:00 Completed [facility] Pneumococcal 7 Conjugate, PCV7 (Prevnar7) 1997 00:00:00 Completed [facility] HIB 4 Dose Schedule 1997 00:00:00 Completed [facility] Hep B, Adol or Pedi Dosage 1997 00:00:00 Completed [facility] DTaP, Unspecified Formulation 1997 00:00:00 Completed [facility] TDAP Unknown Completed [facility] Varicella (varivax)(chicken pox) Unknown Completed [facility] Influenza Virus Vaccine Quad .5 mL IM 6+ MO (FLUZONE/FLULAVAL/FL UARIX) Unknown Completed [facility] HPV Unknown Completed [facility] Influenza Virus Vaccine Quad IM, Preserv and ABX Free 6 MO-64 YRS (FLUCELVAX) Unknown Completed [facility] IPV Unknown Completed [facility] Pneumococcal 7 Conjugate, PCV7 (Prevnar7) Unknown Completed [facility] MMR Unknown Completed [facility] Meningococcal Polysaccharide (groups A, C, Y and W-135) conjugate vaccine (MCV4P) Unknown Completed [facility] HIB 4 Dose Schedule Unknown Completed [facility] Hep B, Adol or Pedi Dosage Unknown Completed [facility] DTaP, Unspecified Formulation Unknown Completed [facility] TDAP Unknown Completed [facility] Varicella (varivax)(chicken pox) Unknown Completed [facility] Influenza Virus Vaccine Quad .5 mL IM 6+ MO (FLUZONE/FLULAVAL/FL UARIX) Unknown Completed [facility] HPV Unknown Completed [facility] Influenza Virus Vaccine Quad IM, Preserv and ABX Free 6 MO-64 YRS (FLUCELVAX) Unknown Completed [facility] IPV Unknown Completed [facility] Pneumococcal 7 Conjugate, PCV7 (Prevnar7) Unknown Completed [facility] MMR Unknown Completed [facility] Meningococcal Polysaccharide (groups A, C, Y and W-135) conjugate vaccine (MCV4P) Unknown Completed [facility] HIB 4 Dose Schedule Unknown Completed [facility] Hep B, Adol or Pedi Dosage Unknown Completed [facility] DTaP, Unspecified Formulation Unknown Completed [facility] TDAP Unknown Completed [facility] Varicella (varivax)(chicken pox) Unknown Completed [facility] Influenza Virus Vaccine Quad .5 mL IM 6+ MO (FLUZONE/FLULAVAL/FL UARIX) Unknown Completed [facility] HPV Unknown Completed [facility] Influenza Virus Vaccine Quad IM, Preserv and ABX Free 6 MO-64 YRS (FLUCELVAX) Unknown Completed [facility] IPV Unknown Completed [facility] Pneumococcal 7 Conjugate, PCV7 (Prevnar7) Unknown Completed [facility] MMR Unknown Completed [facility] Meningococcal Polysaccharide (groups A, C, Y and W-135) conjugate vaccine (MCV4P) Unknown Completed [facility] HIB 4 Dose Schedule Unknown Completed [facility] Hep B, Adol or Pedi Dosage Unknown Completed [facility] DTaP, Unspecified Formulation Unknown Completed [facility] TDAP Unknown Completed [facility] Varicella (varivax)(chicken pox) Unknown Completed [facility] Influenza Virus Vaccine Quad .5 mL IM 6+ MO (FLUZONE/FLULAVAL/FL UARIX) Unknown Completed [facility] HPV Unknown Completed [facility] IPV Unknown Completed [facility] Pneumococcal 7 Conjugate, PCV7 (Prevnar7) Unknown Completed [facility] MMR Unknown Completed [facility] Meningococcal Polysaccharide (groups A, C, Y and W-135) conjugate vaccine (MCV4P) Unknown Completed [facility] HIB 4 Dose Schedule Unknown Completed [facility] Hep B, Adol or Pedi Dosage Unknown Completed [facility] DTaP, Unspecified Formulation Unknown Completed [facility] TDAP Unknown Completed [facility] Varicella (varivax)(chicken pox) Unknown Completed [facility] Influenza Virus Vaccine Quad .5 mL IM 6+ MO (FLUZONE/FLULAVAL/FL UARIX) Unknown Completed [facility] HPV Unknown Completed [facility] IPV Unknown Completed [facility] Pneumococcal 7 Conjugate, PCV7 (Prevnar7) Unknown Completed [facility] MMR Unknown Completed [facility] Meningococcal Polysaccharide (groups A, C, Y and W-135) conjugate vaccine (MCV4P) Unknown Completed [facility] HIB 4 Dose Schedule Unknown Completed [facility] Hep B, Adol or Pedi Dosage Unknown Completed [facility] DTaP, Unspecified Formulation Unknown Completed [facility] TDAP Unknown Completed [facility] Varicella (varivax)(chicken pox) Unknown Completed [facility] Influenza Virus Vaccine Quad .5 mL IM 6+ MO (FLUZONE/FLULAVAL/FL UARIX) Unknown Completed [facility] HPV Unknown Completed [facility] IPV Unknown Completed [facility] Pneumococcal 7 Conjugate, PCV7 (Prevnar7) Unknown Completed [facility] MMR Unknown Completed [facility] Meningococcal Polysaccharide (groups A, C, Y and W-135) conjugate vaccine (MCV4P) Unknown Completed [facility] HIB 4 Dose Schedule Unknown Completed [facility] Hep B, Adol or Pedi Dosage Unknown Completed [facility] DTaP, Unspecified Formulation Unknown Completed [facility] TDAP Unknown Completed [facility] Varicella (varivax)(chicken pox) Unknown Completed [facility] Influenza Virus Vaccine Quad .5 mL IM 6+ MO (FLUZONE/FLULAVAL/FL UARIX) Unknown Completed [facility] HPV Unknown Completed [facility] IPV Unknown Completed [facility] Pneumococcal 7 Conjugate, PCV7 (Prevnar7) Unknown Completed [facility] MMR Unknown Completed [facility] Meningococcal Polysaccharide (groups A, C, Y and W-135) conjugate vaccine (MCV4P) Unknown Completed [facility] HIB 4 Dose Schedule Unknown Completed [facility] Hep B, Adol or Pedi Dosage Unknown Completed [facility] DTaP, Unspecified Formulation Unknown Completed [facility] TDAP Unknown Completed [facility] Varicella (varivax)(chicken pox) Unknown Completed [facility] Influenza Virus Vaccine Quad .5 mL IM 6+ MO (FLUZONE/FLULAVAL/FL UARIX) Unknown Completed [facility] HPV Unknown Completed [facility] IPV Unknown Completed [facility] Pneumococcal 7 Conjugate, PCV7 (Prevnar7) Unknown Completed [facility] MMR Unknown Completed [facility] Meningococcal Polysaccharide (groups A, C, Y and W-135) conjugate vaccine (MCV4P) Unknown Completed [facility] HIB 4 Dose Schedule Unknown Completed [facility] Hep B, Adol or Pedi Dosage Unknown Completed [facility] DTaP, Unspecified Formulation Unknown Completed [facility] TDAP Unknown Completed [facility] Varicella (varivax)(chicken pox) Unknown Completed [facility] Influenza Virus Vaccine Quad .5 mL IM 6+ MO (FLUZONE/FLULAVAL/FL UARIX) Unknown Completed [facility] HPV Unknown Completed [facility] IPV Unknown Completed [facility] Pneumococcal 7 Conjugate, PCV7 (Prevnar7) Unknown Completed [facility] MMR Unknown Completed [facility] Meningococcal Polysaccharide (groups A, C, Y and W-135) conjugate vaccine (MCV4P) Unknown Completed [facility] HIB 4 Dose Schedule Unknown Completed [facility] Hep B, Adol or Pedi Dosage Unknown Completed [facility] DTaP, Unspecified Formulation Unknown Completed [facility] TDAP Unknown Completed [facility] Varicella (varivax)(chicken pox) Unknown Completed [facility] Influenza Virus Vaccine Quad .5 mL IM 6+ MO (FLUZONE/FLULAVAL/FL UARIX) Unknown Completed [facility] HPV Unknown Completed [facility] IPV Unknown Completed [facility] Pneumococcal 7 Conjugate, PCV7 (Prevnar7) Unknown Completed [facility] MMR Unknown Completed [facility] Meningococcal Polysaccharide (groups A, C, Y and W-135) conjugate vaccine (MCV4P) Unknown Completed [facility] HIB 4 Dose Schedule Unknown Completed [facility] Hep B, Adol or Pedi Dosage Unknown Completed [facility] DTaP, Unspecified Formulation Unknown Completed [facility] TDAP Unknown Completed [facility] Varicella (varivax)(chicken pox) Unknown Completed [facility] Influenza Virus Vaccine Quad .5 mL IM 6+ MO (FLUZONE/FLULAVAL/FL UARIX) Unknown Completed [facility] HPV Unknown Completed [facility] IPV Unknown Completed [facility] Pneumococcal 7 Conjugate, PCV7 (Prevnar7) Unknown Completed [facility] MMR Unknown Completed [facility] Meningococcal Polysaccharide (groups A, C, Y and W-135) conjugate vaccine (MCV4P) Unknown Completed [facility] HIB 4 Dose Schedule Unknown Completed [facility] Hep B, Adol or Pedi Dosage Unknown Completed [facility] DTaP, Unspecified Formulation Unknown Completed [facility] TDAP Unknown Completed [facility] Varicella (varivax)(chicken pox) Unknown Completed [facility] Influenza Virus Vaccine Quad .5 mL IM 6+ MO (FLUZONE/FLULAVAL/FL UARIX) Unknown Completed [facility] HPV Unknown Completed [facility] IPV Unknown Completed [facility] Pneumococcal 7 Conjugate, PCV7 (Prevnar7) Unknown Completed [facility] MMR Unknown Completed [facility] Meningococcal Polysaccharide (groups A, C, Y and W-135) conjugate vaccine (MCV4P) Unknown Completed [facility] HIB 4 Dose Schedule Unknown Completed [facility] Hep B, Adol or Pedi Dosage Unknown Completed [facility] DTaP, Unspecified Formulation Unknown Completed [facility] TDAP Unknown Completed [facility] Varicella (varivax)(chicken pox) Unknown Completed [facility] Influenza Virus Vaccine Quad .5 mL IM 6+ MO (FLUZONE/FLULAVAL/FL UARIX) Unknown Completed [facility] HPV Unknown Completed [facility] Influenza Virus Vaccine Quad IM, Preserv and ABX Free 6 MO-64 YRS (FLUCELVAX) Unknown Completed [facility] IPV Unknown Completed [facility] Pneumococcal 7 Conjugate, PCV7 (Prevnar7) Unknown Completed [facility] MMR Unknown Completed [facility] Meningococcal Polysaccharide (groups A, C, Y and W-135) conjugate vaccine (MCV4P) Unknown Completed [facility] HIB 4 Dose Schedule Unknown Completed [facility] Hep B, Adol or Pedi Dosage Unknown Completed [facility] DTaP, Unspecified Formulation Unknown Completed [facility] TDAP Unknown Completed [facility] Varicella (varivax)(chicken pox) Unknown Completed [facility] Influenza Virus Vaccine Quad .5 mL IM 6+ MO (FLUZONE/FLULAVAL/FL UARIX) Unknown Completed [facility] HPV Unknown Completed [facility] Influenza Virus Vaccine Quad IM, Preserv and ABX Free 6 MO-64 YRS (FLUCELVAX) Unknown Completed [facility] IPV Unknown Completed [facility] Pneumococcal 7 Conjugate, PCV7 (Prevnar7) Unknown Completed [facility] MMR Unknown Completed [facility] Meningococcal Polysaccharide (groups A, C, Y and W-135) conjugate vaccine (MCV4P) Unknown Completed [facility] HIB 4 Dose Schedule Unknown Completed [facility] Hep B, Adol or Pedi Dosage Unknown Completed [facility] DTaP, Unspecified Formulation Unknown Completed [facility] TDAP Unknown Completed [facility] Varicella (varivax)(chicken pox) Unknown Completed [facility] Influenza Virus Vaccine Quad .5 mL IM 6+ MO (FLUZONE/FLULAVAL/FL UARIX) Unknown Completed [facility] HPV Unknown Completed [facility] Influenza Virus Vaccine Quad IM, Preserv and ABX Free 6 MO-64 YRS (FLUCELVAX) Unknown Completed [facility] IPV Unknown Completed [facility] Pneumococcal 7 Conjugate, PCV7 (Prevnar7) Unknown Completed [facility] MMR Unknown Completed [facility] Meningococcal Polysaccharide (groups A, C, Y and W-135) conjugate vaccine (MCV4P) Unknown Completed [facility] HIB 4 Dose Schedule Unknown Completed [facility] Hep B, Adol or Pedi Dosage Unknown Completed [facility] DTaP, Unspecified Formulation Unknown Completed [facility] TDAP Unknown Completed [facility] Varicella (varivax)(chicken pox) Unknown Completed [facility] Influenza Virus Vaccine Quad .5 mL IM 6+ MO (FLUZONE/FLULAVAL/FL UARIX) Unknown Completed [facility] HPV Unknown Completed [facility] Influenza Virus Vaccine Quad IM, Preserv and ABX Free 6 MO-64 YRS (FLUCELVAX) Unknown Completed [facility] IPV Unknown Completed [facility] Pneumococcal 7 Conjugate, PCV7 (Prevnar7) Unknown Completed [facility] MMR Unknown Completed [facility] Meningococcal Polysaccharide (groups A, C, Y and W-135) conjugate vaccine (MCV4P) Unknown Completed [facility] HIB 4 Dose Schedule Unknown Completed [facility] Hep B, Adol or Pedi Dosage Unknown Completed [facility] DTaP, Unspecified Formulation Unknown Completed [facility] TDAP Unknown Completed [facility] Varicella (varivax)(chicken pox) Unknown Completed [facility] Influenza Virus Vaccine Quad .5 mL IM 6+ MO (FLUZONE/FLULAVAL/FL UARIX) Unknown Completed [facility] HPV Unknown Completed [facility] Influenza Virus Vaccine Quad IM, Preserv and ABX Free 6 MO-64 YRS (FLUCELVAX) Unknown Completed [facility] IPV Unknown Completed [facility] Pneumococcal 7 Conjugate, PCV7 (Prevnar7) Unknown Completed [facility] MMR Unknown Completed [facility] Meningococcal Polysaccharide (groups A, C, Y and W-135) conjugate vaccine (MCV4P) Unknown Completed [facility] HIB 4 Dose Schedule Unknown Completed [facility] Hep B, Adol or Pedi Dosage Unknown Completed [facility] DTaP, Unspecified Formulation Unknown Completed [facility] TDAP Unknown Completed [facility] Varicella (varivax)(chicken pox) Unknown Completed [facility] Influenza Virus Vaccine Quad .5 mL IM 6+ MO (FLUZONE/FLULAVAL/FL UARIX) Unknown Completed [facility] HPV Unknown Completed [facility] Influenza Virus Vaccine Quad IM, Preserv and ABX Free 6 MO-64 YRS (FLUCELVAX) Unknown Completed [facility] IPV Unknown Completed [facility] Pneumococcal 7 Conjugate, PCV7 (Prevnar7) Unknown Completed [facility] MMR Unknown Completed [facility] Meningococcal Polysaccharide (groups A, C, Y and W-135) conjugate vaccine (MCV4P) Unknown Completed [facility] HIB 4 Dose Schedule Unknown Completed [facility] Hep B, Adol or Pedi Dosage Unknown Completed [facility] DTaP, Unspecified Formulation Unknown Completed [facility] TDAP Unknown Completed [facility] Varicella (varivax)(chicken pox) Unknown Completed [facility] Influenza Virus Vaccine Quad .5 mL IM 6+ MO (FLUZONE/FLULAVAL/FL UARIX) Unknown Completed [facility] HPV Unknown Completed [facility] Influenza Virus Vaccine Quad IM, Preserv and ABX Free 6 MO-64 YRS (FLUCELVAX) Unknown Completed [facility] IPV Unknown Completed [facility] Pneumococcal 7 Conjugate, PCV7 (Prevnar7) Unknown Completed [facility] MMR Unknown Completed [facility] Meningococcal Polysaccharide (groups A, C, Y and W-135) conjugate vaccine (MCV4P) Unknown Completed [facility] HIB 4 Dose Schedule Unknown Completed [facility] Hep B, Adol or Pedi Dosage Unknown Completed [facility] DTaP, Unspecified Formulation Unknown Completed [facility] TDAP Unknown Completed [facility] Varicella (varivax)(chicken pox) Unknown Completed [facility] Influenza Virus Vaccine Quad .5 mL IM 6+ MO (FLUZONE/FLULAVAL/FL UARIX) Unknown Completed [facility] HPV Unknown Completed [facility] Influenza Virus Vaccine Quad IM, Preserv and ABX Free 6 MO-64 YRS (FLUCELVAX) Unknown Completed [facility] IPV Unknown Completed [facility] Pneumococcal 7 Conjugate, PCV7 (Prevnar7) Unknown Completed [facility] MMR Unknown Completed [facility] Meningococcal Polysaccharide (groups A, C, Y and W-135) conjugate vaccine (MCV4P) Unknown Completed [facility] HIB 4 Dose Schedule Unknown Completed [facility] Hep B, Adol or Pedi Dosage Unknown Completed [facility] DTaP, Unspecified Formulation Unknown Completed [facility] TDAP Unknown Completed [facility] Varicella (varivax)(chicken pox) Unknown Completed [facility] Influenza Virus Vaccine Quad .5 mL IM 6+ MO (FLUZONE/FLULAVAL/FL UARIX) Unknown Completed [facility] HPV Unknown Completed [facility] Influenza Virus Vaccine Quad IM, Preserv and ABX Free 6 MO-64 YRS (FLUCELVAX) Unknown Completed [facility] IPV Unknown Completed [facility] Pneumococcal 7 Conjugate, PCV7 (Prevnar7) Unknown Completed [facility] MMR Unknown Completed [facility] Meningococcal Polysaccharide (groups A, C, Y and W-135) conjugate vaccine (MCV4P) Unknown Completed [facility] HIB 4 Dose Schedule Unknown Completed [facility] Hep B, Adol or Pedi Dosage Unknown Completed [facility] DTaP, Unspecified Formulation Unknown Completed [facility] Influenza Virus Vaccine Quad .5 mL IM 6+ MO (FLUZONE/FLULAVAL/FL UARIX) Unknown Completed [facility] Meningococcal Polysaccharide (groups A, C, Y and W-135) conjugate vaccine (MCV4P) Unknown Completed [facility] TDAP Unknown Completed [facility] Varicella (varivax)(chicken pox) Unknown Completed [facility] HPV Unknown Completed [facility] Influenza Virus Vaccine Quad IM, Preserv and ABX Free 6 MO-64 YRS (FLUCELVAX) Unknown Completed [facility] IPV Unknown Completed [facility] Pneumococcal 7 Conjugate, PCV7 (Prevnar7) Unknown Completed [facility] MMR Unknown Completed [facility] HIB 4 Dose Schedule Unknown Completed [facility] Hep B, Adol or Pedi Dosage Unknown Completed [facility] DTaP, Unspecified Formulation Unknown Completed [facility] TDAP Unknown Completed [facility] Varicella (varivax)(chicken pox) Unknown Completed [facility] Influenza Virus Vaccine Quad .5 mL IM 6+ MO (FLUZONE/FLULAVAL/FL UARIX) Unknown Completed [facility] HPV Unknown Completed [facility] Influenza Virus Vaccine Quad IM, Preserv and ABX Free 6 MO-64 YRS (FLUCELVAX) Unknown Completed [facility] IPV Unknown Completed [facility] Pneumococcal 7 Conjugate, PCV7 (Prevnar7) Unknown Completed [facility] MMR Unknown Completed [facility] Meningococcal Polysaccharide (groups A, C, Y and W-135) conjugate vaccine (MCV4P) Unknown Completed [facility] HIB 4 Dose Schedule Unknown Completed [facility] Hep B, Adol or Pedi Dosage Unknown Completed [facility] DTaP, Unspecified Formulation Unknown Completed [facility] TDAP Unknown Completed [facility] Varicella (varivax)(chicken pox) Unknown Completed [facility] Influenza Virus Vaccine Quad .5 mL IM 6+ MO (FLUZONE/FLULAVAL/FL UARIX) Unknown Completed [facility] HPV Unknown Completed [facility] Influenza Virus Vaccine Quad IM, Preserv and ABX Free 6 MO-64 YRS (FLUCELVAX) Unknown Completed [facility] IPV Unknown Completed [facility] Pneumococcal 7 Conjugate, PCV7 (Prevnar7) Unknown Completed [facility] MMR Unknown Completed [facility] Meningococcal Polysaccharide (groups A, C, Y and W-135) conjugate vaccine (MCV4P) Unknown Completed [facility] HIB 4 Dose Schedule Unknown Completed [facility] Hep B, Adol or Pedi Dosage Unknown Completed [facility] DTaP, Unspecified Formulation Unknown Completed [facility] TDAP Unknown Completed [facility] Varicella (varivax)(chicken pox) Unknown Completed [facility] Influenza Virus Vaccine Quad .5 mL IM 6+ MO (FLUZONE/FLULAVAL/FL UARIX) Unknown Completed [facility] HPV Unknown Completed [facility] Influenza Virus Vaccine Quad IM, Preserv and ABX Free 6 MO-64 YRS (FLUCELVAX) Unknown Completed [facility] IPV Unknown Completed [facility] Pneumococcal 7 Conjugate, PCV7 (Prevnar7) Unknown Completed [facility] MMR Unknown Completed [facility] Meningococcal Polysaccharide (groups A, C, Y and W-135) conjugate vaccine (MCV4P) Unknown Completed [facility] HIB 4 Dose Schedule Unknown Completed [facility] Hep B, Adol or Pedi Dosage Unknown Completed [facility] DTaP, Unspecified Formulation Unknown Completed [facility] Influenza Virus Vaccine Quad .5 mL IM 6+ MO (FLUZONE/FLULAVAL/FL UARIX) Unknown Completed [facility] Meningococcal Polysaccharide (groups A, C, Y and W-135) conjugate vaccine (MCV4P) Unknown Completed [facility] TDAP Unknown Completed [facility] Varicella (varivax)(chicken pox) Unknown Completed [facility] HPV Unknown Completed [facility] Influenza Virus Vaccine Quad IM, Preserv and ABX Free 6 MO-64 YRS (FLUCELVAX) Unknown Completed [facility] IPV Unknown Completed [facility] Pneumococcal 7 Conjugate, PCV7 (Prevnar7) Unknown Completed [facility] MMR Unknown Completed [facility] HIB 4 Dose Schedule Unknown Completed [facility] Hep B, Adol or Pedi Dosage Unknown Completed [facility] DTaP, Unspecified Formulation Unknown Completed [facility] TDAP Unknown Completed [facility] Varicella (varivax)(chicken pox) Unknown Completed [facility] Influenza Virus Vaccine Quad .5 mL IM 6+ MO (FLUZONE/FLULAVAL/FL UARIX) Unknown Completed [facility] HPV Unknown Completed [facility] Influenza Virus Vaccine Quad IM, Preserv and ABX Free 6 MO-64 YRS (FLUCELVAX) Unknown Completed [facility] IPV Unknown Completed [facility] Pneumococcal 7 Conjugate, PCV7 (Prevnar7) Unknown Completed [facility] MMR Unknown Completed [facility] Meningococcal Polysaccharide (groups A, C, Y and W-135) conjugate vaccine (MCV4P) Unknown Completed [facility] HIB 4 Dose Schedule Unknown Completed [facility] Hep B, Adol or Pedi Dosage Unknown Completed [facility] DTaP, Unspecified Formulation Unknown Completed [facility] Influenza Virus Vaccine Quad .5 mL IM 6+ MO (FLUZONE/FLULAVAL/FL UARIX) Unknown Completed [facility] Meningococcal Polysaccharide (groups A, C, Y and W-135) conjugate vaccine (MCV4P) Unknown Completed [facility] TDAP Unknown Completed [facility] Varicella (varivax)(chicken pox) Unknown Completed [facility] HPV Unknown Completed [facility] Influenza Virus Vaccine Quad IM, Preserv and ABX Free 6 MO-64 YRS (FLUCELVAX) Unknown Completed [facility] IPV Unknown Completed [facility] Pneumococcal 7 Conjugate, PCV7 (Prevnar7) Unknown Completed [facility] MMR Unknown Completed [facility] HIB 4 Dose Schedule Unknown Completed [facility] Hep B, Adol or Pedi Dosage Unknown Completed [facility] DTaP, Unspecified Formulation Unknown Completed [facility] TDAP Unknown Completed [facility] Varicella (varivax)(chicken pox) Unknown Completed [facility] Influenza Virus Vaccine Quad .5 mL IM 6+ MO (FLUZONE/FLULAVAL/FL UARIX) Unknown Completed [facility] HPV Unknown Completed [facility] Influenza Virus Vaccine Quad IM, Preserv and ABX Free 6 MO-64 YRS (FLUCELVAX) Unknown Completed [facility] IPV Unknown Completed [facility] Pneumococcal 7 Conjugate, PCV7 (Prevnar7) Unknown Completed [facility] MMR Unknown Completed [facility] Meningococcal Polysaccharide (groups A, C, Y and W-135) conjugate vaccine (MCV4P) Unknown Completed [facility] HIB 4 Dose Schedule Unknown Completed [facility] Hep B, Adol or Pedi Dosage Unknown Completed [facility] DTaP, Unspecified Formulation Unknown Completed [facility] TDAP Unknown Completed [facility] Varicella (varivax)(chicken pox) Unknown Completed [facility] Influenza Virus Vaccine Quad .5 mL IM 6+ MO (FLUZONE/FLULAVAL/FL UARIX) Unknown Completed [facility] HPV Unknown Completed [facility] Influenza Virus Vaccine Quad IM, Preserv and ABX Free 6 MO-64 YRS (FLUCELVAX) Unknown Completed [facility] IPV Unknown Completed [facility] Pneumococcal 7 Conjugate, PCV7 (Prevnar7) Unknown Completed [facility] MMR Unknown Completed [facility] Meningococcal Polysaccharide (groups A, C, Y and W-135) conjugate vaccine (MCV4P) Unknown Completed [facility] HIB 4 Dose Schedule Unknown Completed [facility] Hep B, Adol or Pedi Dosage Unknown Completed [facility] DTaP, Unspecified Formulation Unknown Completed [facility] TDAP Unknown Completed [facility] Varicella (varivax)(chicken pox) Unknown Completed [facility] Influenza Virus Vaccine Quad .5 mL IM 6+ MO (FLUZONE/FLULAVAL/FL UARIX) Unknown Completed [facility] HPV Unknown Completed [facility] Influenza Virus Vaccine Quad IM, Preserv and ABX Free 6 MO-64 YRS (FLUCELVAX) Unknown Completed [facility] IPV Unknown Completed [facility] Pneumococcal 7 Conjugate, PCV7 (Prevnar7) Unknown Completed [facility] MMR Unknown Completed [facility] Meningococcal Polysaccharide (groups A, C, Y and W-135) conjugate vaccine (MCV4P) Unknown Completed [facility] HIB 4 Dose Schedule Unknown Completed [facility] Hep B, Adol or Pedi Dosage Unknown Completed [facility] DTaP, Unspecified Formulation Unknown Completed [facility] Influenza Virus Vaccine Quad .5 mL IM 6+ MO (FLUZONE/FLULAVAL/FL UARIX) Unknown Completed [facility] Meningococcal Polysaccharide (groups A, C, Y and W-135) conjugate vaccine (MCV4P) Unknown Completed [facility] TDAP Unknown Completed [facility] Varicella (varivax)(chicken pox) Unknown Completed [facility] HPV Unknown Completed [facility] Influenza Virus Vaccine Quad IM, Preserv and ABX Free 6 MO-64 YRS (FLUCELVAX) Unknown Completed [facility] IPV Unknown Completed [facility] Pneumococcal 7 Conjugate, PCV7 (Prevnar7) Unknown Completed [facility] MMR Unknown Completed [facility] HIB 4 Dose Schedule Unknown Completed [facility] Hep B, Adol or Pedi Dosage Unknown Completed [facility] DTaP, Unspecified Formulation Unknown Completed [facility] Influenza Virus Vaccine Quad .5 mL IM 6+ MO (FLUZONE/FLULAVAL/FL UARIX) Unknown Completed [facility] Meningococcal Polysaccharide (groups A, C, Y and W-135) conjugate vaccine (MCV4P) Unknown Completed [facility] TDAP Unknown Completed [facility] Varicella (varivax)(chicken pox) Unknown Completed [facility] HPV Unknown Completed [facility] Influenza Virus Vaccine Quad IM, Preserv and ABX Free 6 MO-64 YRS (FLUCELVAX) Unknown Completed [facility] IPV Unknown Completed [facility] Pneumococcal 7 Conjugate, PCV7 (Prevnar7) Unknown Completed [facility] MMR Unknown Completed [facility] HIB 4 Dose Schedule Unknown Completed [facility] Hep B, Adol or Pedi Dosage Unknown Completed [facility] DTaP, Unspecified Formulation Unknown Completed [facility] TDAP Unknown Completed [facility] Varicella (varivax)(chicken pox) Unknown Completed [facility] Influenza Virus Vaccine Quad .5 mL IM 6+ MO (FLUZONE/FLULAVAL/FL UARIX) Unknown Completed [facility] HPV Unknown Completed [facility] Influenza Virus Vaccine Quad IM, Preserv and ABX Free 6 MO-64 YRS (FLUCELVAX) Unknown Completed [facility] IPV Unknown Completed [facility] Pneumococcal 7 Conjugate, PCV7 (Prevnar7) Unknown Completed [facility] MMR Unknown Completed [facility] Meningococcal Polysaccharide (groups A, C, Y and W-135) conjugate vaccine (MCV4P) Unknown Completed [facility] HIB 4 Dose Schedule Unknown Completed [facility] Hep B, Adol or Pedi Dosage Unknown Completed [facility] DTaP, Unspecified Formulation Unknown Completed [facility] TDAP Unknown Completed [facility] Varicella (varivax)(chicken pox) Unknown Completed [facility] Influenza Virus Vaccine Quad .5 mL IM 6+ MO (FLUZONE/FLULAVAL/FL UARIX) Unknown Completed [facility] HPV Unknown Completed [facility] Influenza Virus Vaccine Quad IM, Preserv and ABX Free 6 MO-64 YRS (FLUCELVAX) Unknown Completed [facility] IPV Unknown Completed [facility] Pneumococcal 7 Conjugate, PCV7 (Prevnar7) Unknown Completed [facility] MMR Unknown Completed [facility] Meningococcal Polysaccharide (groups A, C, Y and W-135) conjugate vaccine (MCV4P) Unknown Completed [facility] HIB 4 Dose Schedule Unknown Completed [facility] Hep B, Adol or Pedi Dosage Unknown Completed [facility] DTaP, Unspecified Formulation Unknown Completed [facility] TDAP Unknown Completed [facility] Varicella (varivax)(chicken pox) Unknown Completed [facility] Influenza Virus Vaccine Quad .5 mL IM 6+ MO (FLUZONE/FLULAVAL/FL UARIX) Unknown Completed [facility] HPV Unknown Completed [facility] Influenza Virus Vaccine Quad IM, Preserv and ABX Free 6 MO-64 YRS (FLUCELVAX) Unknown Completed [facility] IPV Unknown Completed [facility] Pneumococcal 7 Conjugate, PCV7 (Prevnar7) Unknown Completed [facility] MMR Unknown Completed [facility] Meningococcal Polysaccharide (groups A, C, Y and W-135) conjugate vaccine (MCV4P) Unknown Completed [facility] HIB 4 Dose Schedule Unknown Completed [facility] Hep B, Adol or Pedi Dosage Unknown Completed [facility] DTaP, Unspecified Formulation Unknown Completed [facility] TDAP Unknown Completed [facility] Varicella (varivax)(chicken pox) Unknown Completed [facility] Influenza Virus Vaccine Quad .5 mL IM 6+ MO (FLUZONE/FLULAVAL/FL UARIX) Unknown Completed [facility] HPV Unknown Completed [facility] Influenza Virus Vaccine Quad IM, Preserv and ABX Free 6 MO-64 YRS (FLUCELVAX) Unknown Completed [facility] IPV Unknown Completed [facility] Pneumococcal 7 Conjugate, PCV7 (Prevnar7) Unknown Completed [facility] MMR Unknown Completed [facility] Meningococcal Polysaccharide (groups A, C, Y and W-135) conjugate vaccine (MCV4P) Unknown Completed [facility] HIB 4 Dose Schedule Unknown Completed [facility] Hep B, Adol or Pedi Dosage Unknown Completed [facility] DTaP, Unspecified Formulation Unknown Completed [facility] TDAP Unknown Completed [facility] Varicella (varivax)(chicken pox) Unknown Completed [facility] Influenza Virus Vaccine Quad .5 mL IM 6+ MO (FLUZONE/FLULAVAL/FL UARIX) Unknown Completed [facility] HPV Unknown Completed [facility] Influenza Virus Vaccine Quad IM, Preserv and ABX Free 6 MO-64 YRS (FLUCELVAX) Unknown Completed [facility] IPV Unknown Completed [facility] Pneumococcal 7 Conjugate, PCV7 (Prevnar7) Unknown Completed [facility] MMR Unknown Completed [facility] Meningococcal Polysaccharide (groups A, C, Y and W-135) conjugate vaccine (MCV4P) Unknown Completed [facility] HIB 4 Dose Schedule Unknown Completed [facility] Hep B, Adol or Pedi Dosage Unknown Completed [facility] DTaP, Unspecified Formulation Unknown Completed [facility] TDAP Unknown Completed [facility] Varicella (varivax)(chicken pox) Unknown Completed [facility] Influenza Virus Vaccine Quad .5 mL IM 6+ MO (FLUZONE/FLULAVAL/FL UARIX) Unknown Completed [facility] HPV Unknown Completed [facility] Influenza Virus Vaccine Quad IM, Preserv and ABX Free 6 MO-64 YRS (FLUCELVAX) Unknown Completed [facility] IPV Unknown Completed [facility] Pneumococcal 7 Conjugate, PCV7 (Prevnar7) Unknown Completed [facility] MMR Unknown Completed [facility] Meningococcal Polysaccharide (groups A, C, Y and W-135) conjugate vaccine (MCV4P) Unknown Completed [facility] HIB 4 Dose Schedule Unknown Completed [facility] Hep B, Adol or Pedi Dosage Unknown Completed [facility] DTaP, Unspecified Formulation Unknown Completed [facility] TDAP Unknown Completed [facility] Varicella (varivax)(chicken pox) Unknown Completed [facility] Influenza Virus Vaccine Quad .5 mL IM 6+ MO (FLUZONE/FLULAVAL/FL UARIX) Unknown Completed [facility] HPV Unknown Completed [facility] Influenza Virus Vaccine Quad IM, Preserv and ABX Free 6 MO-64 YRS (FLUCELVAX) Unknown Completed [facility] IPV Unknown Completed [facility] Pneumococcal 7 Conjugate, PCV7 (Prevnar7) Unknown Completed [facility] MMR Unknown Completed [facility] Meningococcal Polysaccharide (groups A, C, Y and W-135) conjugate vaccine (MCV4P) Unknown Completed [facility] HIB 4 Dose Schedule Unknown Completed [facility] Hep B, Adol or Pedi Dosage Unknown Completed [facility] DTaP, Unspecified Formulation Unknown Completed [facility] TDAP Unknown Completed [facility] Varicella (varivax)(chicken pox) Unknown Completed [facility] Influenza Virus Vaccine Quad .5 mL IM 6+ MO (FLUZONE/FLULAVAL/FL UARIX) Unknown Completed [facility] HPV Unknown Completed [facility] Influenza Virus Vaccine Quad IM, Preserv and ABX Free 6 MO-64 YRS (FLUCELVAX) Unknown Completed [facility] IPV Unknown Completed [facility] Pneumococcal 7 Conjugate, PCV7 (Prevnar7) Unknown Completed [facility] MMR Unknown Completed [facility] Meningococcal Polysaccharide (groups A, C, Y and W-135) conjugate vaccine (MCV4P) Unknown Completed [facility] HIB 4 Dose Schedule Unknown Completed [facility] Hep B, Adol or Pedi Dosage Unknown Completed [facility] DTaP, Unspecified Formulation Unknown Completed [facility] Vital Signs Vital Name Observation Time Observation Value Comments Adalberto sims Systolic blood pressure 2024-03-05 16:05:00 135 mm[Hg] [facility] Diastolic blood pressure 2024-03-05 16:05:00 87 mm[Hg] [facility] Heart rate 2024-03-05 16:05:00 94 /min [facility] [place] [facility] Body temperature 2024-03-05 16:05:00 35.83 [facility] Res[facility] 2024-03-05 16:05:00 15 /min [facility] Oxygen saturation in Arterial blood by Pulse oximetry 2024-03-05 16:05:00 97 /min Yvan [facility] Body height 2024-03-05 06:56:00 167.6 cm Kenney rial [place] [facility] Body weight 2024-03-05 06:56:00 104.1 kg Kenney rial [place] [facility] BMI 2024-03-05 06:56:00 37.04 kg/m2 Kenney rial [place] [facility] Systolic blood pressure 2024-03-05 16:05:00 135 mm[Hg] Yvan [facility]ode[facility] Diastolic blood pressure 2024-03-05 16:05:00 87 mm[Hg] Yvan Thibode[facility] Heart rate 2024-03-05 16:05:00 94 /min [facility] [place] [facility] Body temperature 2024-03-05 16:05:00 35.83 Shawna [facility] Respiratory rate 2024-03-05 16:05:00 15 /min [facility] Oxygen saturation in Arterial blood by Pulse oximetry 2024-03-05 16:05:00 97 /min Yvan Thibode[facility] Body height 2024-03-05 06:56:00 167.6 cm Kenney drea [place] [facility] Body weight 2024-03-05 06:56:00 104.1 kg Kenney osirisl [place] [facility] BMI 2024-03-05 06:56:00 37.04 kg/m2 Kenney rial [place] [facility] Systolic blood pressure 2024-02-26 05:59:00 131 mm[Hg] Yvan [facility] Diastolic blood pressure 2024-02-26 05:59:00 76 mm[Hg] [facility] Heart rate 2024-02-26 05:59:00 96 /min [facility] [place] [facility] Body temperature 2024-02-26 05:59:00 [facility]28 [facility] Res[facility] rate 2024-02-26 05:59:00 16 /min [facility] O[facility] saturation in Arterial blood by Pulse oximetry 2024-02-26 05:59:00 97 /min [facility] Body height 2024-02-20 12:35:00 167.6 cm Kenney rial [facility] [facility] Body weight 2024-02-20 12:35:00 99.791 kg Kenney rial [place] [facility] BMI 2024-02-20 12:35:00 35.51 kg/m2 Kenney rial [facility] Systolic blood pressure 2024-02-26 05:59:00 131 mm[Hg] [facility] Diastolic blood pressure 2024-02-26 05:59:00 76 mm[Hg] [facility] Heart rate 2024-02-26 05:59:00 96 /min [facility] [place] [facility] Body temperature 2024-02-26 05:59:00 36.28 [facility] Respiratory rate 2024-02-26 05:59:00 16 /min [facility] Oxygen saturation in Arterial blood by Pulse oximetry 2024-02-26 05:59:00 97 /min [facility] Body height 2024-02-20 12:35:00 167.6 cm Kenney rial [place] [facility] Body weight 2024-02-20 12:35:00 99.791 kg Kenney rial [facility] [facility] BMI 2024-02-20 12:35:00 35.51 kg/m2 Kenney rial [facility] Heart rate 2024-02-10 12:04:57 66 [facility] [place] [facility] Respiratory rate 2024-02-10 12:04:57 17 /min [facility] Oxygen saturation in Arterial blood by Pulse oximetry 2024-02-10 12:04:57 100 /min [facility] Systolic blood pressure 2024-02-10 12:04:52 120 mm[Hg] [facility] Diastolic blood pressure 2024-02-10 12:04:52 70 mm[Hg] [facility] Body temperature 2024-02-10 12:04:25 36.83 [facility] Body height 2024-02-09 03:06:00 157.5 cm Kenney rial [facility] Body weight 2024-02-09 03:06:00 99.791 kg Kenney rial [place] [facility] BMI 2024-02-09 03:06:00 40.24 kg/m2 Kenney rial [facility] [facility] Heart rate 2024-02-10 12:04:57 66 /min Jarvis [facility] Respiratory rate 2024-02-10 12:04:57 17 /min Yvan Stoll Oxygen saturation in Arterial blood by Pulse oximetry 2024-02-10 12:04:57 100 /min Yvan guillen [facility] Systolic blood pressure 2024-02-10 12:04:52 120 mm[Hg] Yvan guillen [facility] Diastolic blood pressure 2024-02-10 12:04:52 70 mm[Hg] Yvan guillen [facility] Body temperature 2024-02-10 12:04:[address] [facility] Body height 2024-02-09 03:06:00 157.5 cm Kenney Roche [facility] Body weight 2024-02-09 03:06:00 99.791 kg Kenneylance Roche [facility] BMI 2024-02-09 03:06:00 40.24 kg/m2 Kenneylance shepard [facility] Systolic blood pressure 2023-12-22 04:00:00 126 mm[Hg] [facility] Diastolic blood pressure 2023-12-22 04:00:00 81 mm[Hg] [facility] Heart rate 2023-12-22 04:00:00 72 /min [facility] Body temperature 2023-12-22 04:00:00 36.72 Shawna [facility] Respiratory rate 2023-12-22 04:00:00 13 /min [facility] Oxygen saturation in Arterial blood by Pulse oximetry 2023-12-22 04:00:00 97 /min [facility] Body height 2023-12-22 01:37:00 167.6 cm [facility] Body weight 2023-12-22 01:37:00 105.325 kg [facility] BMI 2023-12-22 01:37:00 37.48 kg/m2 [facility] Systolic blood pressure 2023-10-23 18:44:00 108 mm[Hg] [facility] Diastolic blood pressure 2023-10-23 18:44:00 74 mm[Hg] [facility] Heart rate 2023-10-23 18:44:00 86 /min [facility] Body temperature 2023-10-23 18:44:00 37 Shawna [facility] Respiratory rate 2023-10-23 18:44:00 18 /min [facility] Body height 2023-10-23 18:44:00 167.6 cm [facility] Body weight 2023-10-23 18:44:00 102.059 kg [facility] BMI 2023-10-23 18:44:00 36.32 kg/m2 [facility] Oxygen saturation in Arterial blood by Pulse oximetry 2023-10-23 18:44:00 98 /min [facility] Systolic blood pressure 2023-09-13 18:49:00 121 mm[Hg] [facility] Diastolic blood pressure 2023-09-13 18:49:00 70 mm[Hg] [facility] Heart rate 2023-09-13 18:49:00 63 /min [facility] Respiratory rate 2023-09-13 18:49:00 17 /min [facility] Body height 2023-09-13 18:49:00 167.6 cm [facility] Body weight 2023-09-13 18:49:00 102.74 kg [facility] BMI 2023-09-13 18:49:00 36.56 kg/m2 [facility] Oxygen saturation in Arterial blood by Pulse oximetry 2023-09-13 18:49:00 99 /min [facility] Systolic blood pressure 2023-09-10 17:41:00 110 mm[Hg] [facility] Diastolic blood pressure 2023-09-10 17:41:00 65 mm[Hg] [facility] Heart rate 2023-09-10 17:41:00 60 /min [facility] Body height 2023-09-10 17:41:00 167.6 cm [facility] Body weight 2023-09-10 17:41:00 103.42 kg [facility] BMI 2023-09-10 17:41:00 36.80 kg/m2 [facility] Oxygen saturation in Arterial blood by Pulse oximetry 2023-09-10 17:41:00 98 /min [facility] Systolic blood pressure 2023-08-29 14:27:00 100 mm[Hg] [facility] Diastolic blood pressure 2023-08-29 14:27:00 60 mm[Hg] [facility] Heart rate 2023-08-29 14:26:00 56 /min [facility] Body temperature 2023-08-29 14:26:00 36.78 Shawna [facility] Body height 2023-08-29 14:26:00 165.1 cm [facility] Body weight 2023-08-29 14:26:00 102.513 kg [facility] BMI 2023-08-29 14:26:00 37.61 kg/m2 [facility] Oxygen saturation in Arterial blood by Pulse oximetry 2023-08-29 14:26:00 98 /min [facility] Systolic blood pressure 2023-08-26 16:05:00 125 mm[Hg] [facility] Diastolic blood pressure 2023-08-26 16:05:00 85 mm[Hg] [facility] Heart rate 2023-08-26 16:05:00 79 /min [facility] Body temperature 2023-08-26 16:05:00 35.89 Shawna [facility] Respiratory rate 2023-08-26 16:05:00 18 /min [facility] Body height 2023-08-26 16:05:00 165.1 cm [facility] Body weight 2023-08-26 16:05:00 103.012 kg [facility] BMI 2023-08-26 16:05:00 37.79 kg/m2 [facility] Oxygen saturation in Arterial blood by Pulse oximetry 2023-08-26 16:05:00 99 /min [facility] Systolic blood pressure 2023-07-17 16:59:00 103 mm[Hg] [facility] Diastolic blood pressure 2023-07-17 16:59:00 75 mm[Hg] [facility] Heart rate 2023-07-17 16:59:00 68 /min [facility] Body temperature 2023-07-17 16:59:00 36.5 Shawna [facility] Respiratory rate 2023-07-17 16:59:00 18 /min [facility] Body height 2023-07-17 16:59:00 165.1 cm [facility] Body weight 2023-07-17 16:59:00 103.874 kg [facility] BMI 2023-07-17 16:59:00 38.11 kg/m2 [facility] Systolic blood pressure 2023-07-03 23:46:27 113 mm[Hg] [facility] Diastolic blood pressure 2023-07-03 23:46:27 98 mm[Hg] [facility] Heart rate 2023-07-03 23:46:27 65 /min [facility] Respiratory rate 2023-07-03 23:46:27 16 /min [facility] Oxygen saturation in Arterial blood by Pulse oximetry 2023-07-03 23:46:27 99 /min [facility] Body temperature 2023-07-03 20:52:00 36.72 Shawna [facility] Body height 2023-07-03 20:52:00 167.6 cm [facility] Body weight 2023-07-03 20:52:00 99.791 kg [facility] BMI 2023-07-03 20:52:00 35.51 kg/m2 [facility] Systolic blood pressure 2023-06-14 05:24:00 132 mm[Hg] [facility] Diastolic blood pressure 2023-06-14 05:24:00 90 mm[Hg] [facility] Heart rate 2023-06-14 05:24:00 98 /min [facility] Body temperature 2023-06-14 05:24:00 37 Shawna [facility] Respiratory rate 2023-06-14 05:24:00 16 /min [facility] Body height 2023-06-14 05:24:00 167.6 cm [facility] Body weight 2023-06-14 05:24:00 99.791 kg [facility] BMI 2023-06-14 05:24:00 35.51 kg/m2 [facility] Oxygen saturation in Arterial blood by Pulse oximetry 2023-06-14 05:24:00 100 /min [facility] Systolic blood pressure 2023-05-11 12:29:00 135 mm[Hg] [facility] Diastolic blood pressure 2023-05-11 12:29:00 96 mm[Hg] [facility] Heart rate 2023-05-11 12:29:00 77 /min [facility] Body temperature 2023-05-11 12:29:00 37.11 Shawna [facility] Respiratory rate 2023-05-11 12:29:00 18 /min [facility] Body height 2023-05-11 12:29:00 167.6 cm [facility] Body weight 2023-05-11 12:29:00 99.791 kg [facility] BMI 2023-05-11 12:29:00 35.51 kg/m2 [facility] Oxygen saturation in Arterial blood by Pulse oximetry 2023-05-11 12:29:00 100 /min [facility] Systolic blood pressure 2023-01-21 19:10:00 126 mm[Hg] [facility] Diastolic blood pressure 2023-01-21 19:10:00 84 mm[Hg] [facility] Heart rate 2023-01-21 19:10:00 83 /min [facility] Body height 2023-01-21 19:10:00 165.1 cm [facility] Body weight 2023-01-21 19:10:00 101.197 kg [facility] BMI 2023-01-21 19:10:00 37.13 kg/m2 [facility] Oxygen saturation in Arterial blood by Pulse oximetry 2023-01-21 19:10:00 98 /min [facility] Body temperature 2022-11-12 14:39:00 36.39 Shawna [facility] Body height 2022-11-12 14:39:00 165.1 cm [facility] Body weight 2022-11-12 14:39:00 107.412 kg [facility] BMI 2022-11-12 14:39:00 39.41 kg/m2 [facility] Body temperature 2022-08-23 18:23:00 36.39 Shawna [facility] Body height 2022-08-23 18:23:00 165.1 cm [facility] Body weight 2022-08-23 18:23:00 103.057 kg [facility] BMI 2022-08-23 18:23:00 37.81 kg/m2 [facility] Systolic blood pressure 2022-07-31 01:12:49 131 mm[Hg] [facility] Diastolic blood pressure 2022-07-31 01:12:49 93 mm[Hg] [facility] Heart rate 2022-07-31 01:10:00 86 /min [facility] Body temperature 2022-07-31 01:10:00 37.22 Shawna [facility] Respiratory rate 2022-07-31 01:10:00 18 /min [facility] Body height 2022-07-31 01:10:00 165.1 cm [facility] Body weight 2022-07-31 01:10:00 99.791 kg [facility] BMI 2022-07-31 01:10:00 36.61 kg/m2 [facility] Oxygen saturation in Arterial blood by Pulse oximetry 2022-07-31 01:10:00 100 /min [facility] Systolic blood pressure 2022-05-22 01:28:00 135 mm[Hg] [facility] Diastolic blood pressure 2022-05-22 01:28:00 78 mm[Hg] [facility] Heart rate 2022-05-22 01:28:00 97 /min [facility] Body temperature 2022-05-22 01:28:00 37 Shawna [facility] Respiratory rate 2022-05-22 01:28:00 20 /min [facility] Body height 2022-05-22 01:28:00 165.1 cm [facility] Body weight 2022-05-22 01:28:00 99.882 kg [facility] BMI 2022-05-22 01:28:00 36.64 kg/m2 [facility] Oxygen saturation in Arterial blood by Pulse oximetry 2022-05-22 01:28:00 100 /min [facility] Systolic blood pressure 2022-03-30 12:38:00 119 mm[Hg] [facility] Diastolic blood pressure 2022-03-30 12:38:00 93 mm[Hg] [facility] Heart rate 2022-03-30 12:38:00 113 /min [facility] Body temperature 2022-03-30 12:38:00 38 Shawna [facility] Respiratory rate 2022-03-30 12:38:00 20 /min [facility] Body height 2022-03-30 12:38:00 165.1 cm [facility] Body weight 2022-03-30 12:38:00 94.802 kg [facility] BMI 2022-03-30 12:38:00 34.78 kg/m2 [facility] Oxygen saturation in Arterial blood by Pulse oximetry 2022-03-30 12:38:00 100 /min [facility] Systolic blood pressure 2022-03-28 16:09:00 101 mm[Hg] [facility] Diastolic blood pressure 2022-03-28 16:09:00 70 mm[Hg] [facility] Heart rate 2022-03-28 16:09:00 59 /min [facility] Body temperature 2022-03-28 16:09:00 36.56 Shawna [facility] Respiratory rate 2022-03-28 16:09:00 18 /min [facility] Body height 2022-03-28 16:09:00 165.1 cm [facility] Body weight 2022-03-28 16:09:00 94.802 kg [facility] BMI 2022-03-28 16:09:00 34.78 kg/m2 [facility] Systolic blood pressure 2022-03-08 15:50:00 117 mm[Hg] [facility] Diastolic blood pressure 2022-03-08 15:50:00 78 mm[Hg] [facility] Heart rate 2022-03-08 15:50:00 50 /min [facility] Body temperature 2022-03-08 15:50:00 36.83 Shawna [facility] Respiratory rate 2022-03-08 15:50:00 18 /min [facility] Body height 2022-03-08 15:50:00 165.1 cm [facility] Body weight 2022-03-08 15:50:00 97.886 kg [facility] BMI 2022-03-08 15:50:00 35.91 kg/m2 [facility] Systolic blood pressure 2022-02-28 18:45:00 124 mm[Hg] [facility] Diastolic blood pressure 2022-02-28 18:45:00 72 mm[Hg] [facility] Heart rate 2022-02-28 18:45:00 74 /min [facility] Body temperature 2022-02-28 18:45:00 36.56 Shawna [facility] Respiratory rate 2022-02-28 18:45:00 18 /min [facility] Oxygen saturation in Arterial blood by Pulse oximetry 2022-02-28 18:45:00 99 /min [facility] Systolic blood pressure 2022-02-26 20:56:00 127 mm[Hg] [facility] Diastolic blood pressure 2022-02-26 20:56:00 85 mm[Hg] [facility] Heart rate 2022-02-26 20:56:00 101 /min [facility] Body temperature 2022-02-26 20:56:00 36.89 Shawna [facility] Respiratory rate 2022-02-26 20:56:00 18 /min [facility] Body height 2022-02-26 20:56:00 165.1 cm [facility] Body weight 2022-02-26 20:56:00 101.969 kg [facility] BMI 2022-02-26 20:56:00 37.41 kg/m2 [facility] Heart rate 2022-02-27 04:15:00 64 /min [facility] Oxygen saturation in Arterial blood by Pulse oximetry 2022-02-27 04:15:00 99 /min [facility] Systolic blood pressure 2022-02-27 03:45:00 106 mm[Hg] [facility] Diastolic blood pressure 2022-02-27 03:45:00 59 mm[Hg] [facility] Body temperature 2022-02-27 03:15:00 36.67 Shawna [facility] Respiratory rate 2022-02-27 03:15:00 18 /min [facility] Heart rate 2022-02-25 20:44:00 70 /min [facility] Oxygen saturation in Arterial blood by Pulse oximetry 2022-02-25 20:44:00 99 /min [facility] Systolic blood pressure 2022-02-25 19:45:00 110 mm[Hg] [facility] Diastolic blood pressure 2022-02-25 19:45:00 54 mm[Hg] [facility] Body temperature 2022-02-25 19:45:00 36.89 Shawna [facility] Respiratory rate 2022-02-25 19:45:00 18 /min [facility] Body height 2022-02-25 19:45:00 165.1 cm [facility] Body weight 2022-02-25 19:45:00 101.47 kg [facility] BMI 2022-02-25 19:45:00 37.23 kg/m2 [facility] Systolic blood pressure 2022-02-14 15:32:00 127 mm[Hg] [facility] Diastolic blood pressure 2022-02-14 15:32:00 83 mm[Hg] [facility] Heart rate 2022-02-14 15:32:00 85 /min [facility] Body temperature 2022-02-14 15:32:00 36.78 Shawna [facility] Respiratory rate 2022-02-14 15:32:00 18 /min [facility] Body height 2022-02-14 15:32:00 165.1 cm [facility] Body weight 2022-02-14 15:32:00 103.148 kg [facility] BMI 2022-02-14 15:32:00 37.84 kg/m2 [facility] Systolic blood pressure 2022-02-09 02:52:00 123 mm[Hg] [facility] Diastolic blood pressure 2022-02-09 02:52:00 84 mm[Hg] [facility] Heart rate 2022-02-09 02:52:00 78 [facility] 2022-02-09 02:52:00 36.61 Shawna [facility] Respiratory rate 2022-02-09 02:52:00 16 /min [facility] Oxygen saturation in Arterial blood by Pulse oximetry 2022-02-09 02:52:00 100 /min [facility] Body weight 2022-02-08 19:38:00 101.878 kg [facility] BMI 2022-02-08 19:38:00 37.38 kg/m2 [facility] Systolic blood pressure 2022-02-07 17:39:00 124 mm[Hg] [facility] Diastolic blood pressure 2022-02-07 17:39:00 84 mm[Hg] [facility] Heart rate 2022-02-07 17:39:00 80 /min [facility] Body temperature 2022-02-07 17:39:00 36.11 Shawna [facility] Body height 2022-02-07 17:39:00 165.1 cm [facility] Body weight 2022-02-07 17:39:00 102.967 kg [facility] BMI 2022-02-07 17:39:00 37.77 kg/m2 [facility] Oxygen saturation in Arterial blood by Pulse oximetry 2022-02-07 17:39:00 97 /min [facility] Systolic blood pressure 2022-02-04 02:00:00 109 mm[Hg] [facility] Diastolic blood pressure 2022-02-04 02:00:00 61 mm[Hg] [facility] Heart rate 2022-02-04 02:00:00 112 /min [facility] Body temperature 2022-02-04 02:00:00 36.78 Shawna [facility] Respiratory rate 2022-02-04 02:00:00 16 /min [facility] Oxygen saturation in Arterial blood by Pulse oximetry 2022-02-04 02:00:00 99 /min [facility] Body height 2022-02-03 21:39:00 165.1 cm [facility] Body weight 2022-02-03 21:39:00 101.061 kg [facility] BMI 2022-02-03 21:39:00 37.08 kg/m2 [facility] Heart rate 2022-02-02 17:30:00 86 /min [facility] Oxygen saturation in Arterial blood by Pulse oximetry 2022-02-02 17:30:00 100 /min [facility] Systolic blood pressure 2022-02-02 16:46:00 91 mm[Hg] [facility] Diastolic blood pressure 2022-02-02 16:46:00 52 mm[Hg] [facility] Body temperature 2022-02-02 16:46:00 35.56 Shawna [facility] Respiratory rate 2022-02-02 16:46:00 18 /min [facility] Systolic blood pressure 2022-01-31 16:01:00 119 mm[Hg] [facility] Diastolic blood pressure 2022-01-31 16:01:00 85 mm[Hg] [facility] Heart rate 2022-01-31 16:01:00 87 /min [facility] Body temperature 2022-01-31 16:01:00 36.5 Shawna [facility] Respiratory rate 2022-01-31 16:01:00 18 /min [facility] Body height 2022-01-31 16:01:00 165.1 cm [facility] Body weight 2022-01-31 16:01:00 100.245 kg [facility] BMI 2022-01-31 16:01:00 36.78 kg/m2 [facility] Heart rate 2022-01-30 22:30:00 101 /min [facility] Oxygen saturation in Arterial blood by Pulse oximetry 2022-01-30 22:30:00 99 /min [facility] Systolic blood pressure 2022-01-30 22:00:00 129 mm[Hg] [facility] Diastolic blood pressure 2022-01-30 22:00:00 75 mm[Hg] [facility] Respiratory rate 2022-01-30 22:00:00 18 /min [facility] Body temperature 2022-01-30 19:09:00 36.72 Shawna [facility] Body height 2022-01-30 19:09:00 165.1 cm [facility] Body weight 2022-01-30 19:09:00 100.426 kg [facility] BMI 2022-01-30 19:09:00 36.84 kg/m2 [facility] Systolic blood pressure 2022-01-30 18:35:00 166 mm[Hg] [facility] Diastolic blood pressure 2022-01-30 18:35:00 93 mm[Hg] [facility] Heart rate 2022-01-30 18:34:00 88 /min [facility] Body temperature 2022-01-30 18:34:00 36.83 Shawna [facility] Respiratory rate 2022-01-30 18:34:00 16 /min [facility] Body height 2022-01-30 18:34:00 165.1 cm [facility] Body weight 2022-01-30 18:34:00 100.245 kg [facility] BMI 2022-01-30 18:34:00 36.78 kg/m2 [facility] Systolic blood pressure 2022-01-29 04:19:00 111 mm[Hg] [facility] Diastolic blood pressure 2022-01-29 04:19:00 63 mm[Hg] [facility] Heart rate 2022-01-29 04:19:00 85 /min [facility] Body temperature 2022-01-29 04:19:00 36.67 Shawna [facility] Respiratory rate 2022-01-29 04:19:00 16 /min [facility] Oxygen saturation in Arterial blood by Pulse oximetry 2022-01-29 04:19:00 100 /min [facility] Body height 2022-01-29 04:06:00 165.1 cm [facility] Body weight 2022-01-29 04:06:00 101.606 kg 224lb [facility] BMI 2022-01-29 04:06:00 37.28 kg/m2 [facility] Systolic blood pressure 2022-01-17 18:14:00 108 mm[Hg] [facility] Diastolic blood pressure 2022-01-17 18:14:00 71 mm[Hg] [facility] Heart rate 2022-01-17 18:14:00 92 /min [facility] Body temperature 2022-01-17 18:14:00 36.78 Shawna [facility] Body height 2022-01-17 18:14:00 165.1 cm [facility] Body weight 2022-01-17 18:14:00 101.969 kg [facility] BMI 2022-01-17 18:14:00 37.41 kg/m2 [facility] Systolic blood pressure 2021-12-20 13:58:00 105 mm[Hg] [facility] Diastolic blood pressure 2021-12-20 13:58:00 73 mm[Hg] [facility] Heart rate 2021-12-20 13:58:00 73 /min [facility] Body temperature 2021-12-20 13:58:00 36.5 Shawna [facility] Respiratory rate 2021-12-20 13:58:00 18 /min [facility] Body height 2021-12-20 13:58:00 165.1 cm [facility] Body weight 2021-12-20 13:58:00 99.701 kg [facility] BMI 2021-12-20 13:58:00 36.58 kg/m2 [facility] Systolic blood pressure 2021-11-22 15:58:00 110 mm[Hg] [facility] Diastolic blood pressure 2021-11-22 15:58:00 73 mm[Hg] [facility] Heart rate 2021-11-22 15:58:00 79 /min [facility] Body temperature 2021-11-22 15:58:00 37 Shawna [facility] Respiratory rate 2021-11-22 15:58:00 18 /min [facility] Body height 2021-11-22 15:58:00 165.1 cm [facility] Body weight 2021-11-22 15:58:00 99.338 kg [facility] BMI 2021-11-22 15:58:00 36.44 kg/m2 [facility] Systolic blood pressure 2021-10-24 19:20:00 108 mm[Hg] [facility] Diastolic blood pressure 2021-10-24 19:20:00 70 mm[Hg] [facility] Heart rate 2021-10-24 19:20:00 87 /min [facility] Body temperature 2021-10-24 19:20:00 37.17 Shawna [facility] Body height 2021-10-24 19:20:00 165.1 cm [facility] Body weight 2021-10-24 19:20:00 98.431 kg [facility] BMI 2021-10-24 19:20:00 36.11 kg/m2 [facility] Systolic blood pressure 2021-09-26 18:06:00 99 mm[Hg] [facility] Diastolic blood pressure 2021-09-26 18:06:00 69 mm[Hg] [facility] Heart rate 2021-09-26 18:06:00 62 /min [facility] Body temperature 2021-09-26 18:06:00 36.78 Shawna [facility] Respiratory rate 2021-09-26 18:06:00 18 /min [facility] Body height 2021-09-26 18:06:00 165.1 cm [facility] Body weight 2021-09-26 18:06:00 97.07 kg [facility] BMI 2021-09-26 18:06:00 35.61 kg/m2 [facility] Systolic blood pressure 2021-08-29 20:40:00 120 mm[Hg] [facility] Diastolic blood pressure 2021-08-29 20:40:00 79 mm[Hg] [facility] Heart rate 2021-08-29 20:40:00 58 /min [facility] Body temperature 2021-08-29 20:40:00 36.78 Shawna [facility] Respiratory rate 2021-08-29 20:40:00 20 /min [facility] Body height 2021-08-29 20:40:00 165.1 cm [facility] Body weight 2021-08-29 20:40:00 99.61 kg [facility] BMI 2021-08-29 20:40:00 36.54 kg/m2 [facility] Systolic blood pressure 2021-08-01 18:12:00 98 mm[Hg] [facility] Diastolic blood pressure 2021-08-01 18:12:00 63 mm[Hg] [facility] Heart rate 2021-08-01 18:12:00 89 /min [facility] Body temperature 2021-08-01 18:12:00 36.94 Shawna [facility] Respiratory rate 2021-08-01 18:12:00 18 /min [facility] Body height 2021-08-01 18:12:00 165.1 cm [facility] Body weight 2021-08-01 18:12:00 100.245 kg [facility] BMI 2021-08-01 18:12:00 36.78 kg/m2 [facility] Systolic blood pressure 2021-07-19 19:40:00 112 mm[Hg] [facility] Diastolic blood pressure 2021-07-19 19:40:00 77 mm[Hg] [facility] Heart rate 2021-07-19 19:40:00 76 /min [facility] Body temperature 2021-07-19 19:40:00 36.94 Shawna [facility] [facility] Body height 2021-07-19 19:40:00 167.6 cm [facility] Body weight 2021-07-19 19:40:00 100.336 kg [facility] BMI 2021-07-19 19:40:00 35.70 kg/m2 [facility] Systolic blood pressure 2021-01-15 12:54:00 125 mm[Hg] [facility] Diastolic blood pressure 2021-01-15 12:54:00 74 mm[Hg] [facility] Heart rate 2021-01-15 12:54:00 68 /min [facility] Body temperature 2021-01-15 12:54:00 36.11 Shawna [facility] Respiratory rate 2021-01-15 12:54:00 18 /min [facility] Oxygen saturation in Arterial blood by Pulse oximetry 2021-01-15 12:54:00 98 /min [facility] Body weight 2021-01-14 09:00:00 96.616 kg [facility] BMI 2021-01-14 09:00:00 35.45 kg/m2 [facility] Systolic blood pressure 2021-01-12 20:03:00 120 mm[Hg] [facility] Diastolic blood pressure 2021-01-12 20:03:00 86 mm[Hg] [facility] Heart rate 2021-01-12 20:03:00 80 /min [facility] Body temperature 2021-01-12 20:03:00 36.89 Shawna [facility] Respiratory rate 2021-01-12 20:03:00 16 /min [facility] Body height 2021-01-12 20:03:00 165.1 cm [facility] Body weight 2021-01-12 20:03:00 96.752 kg [facility] BMI 2021-01-12 20:03:00 35.49 kg/m2 [facility] Systolic blood pressure 2021-01-15 12:54:00 125 mm[Hg] [facility] Diastolic blood pressure 2021-01-15 12:54:00 74 mm[Hg] [facility] Heart rate 2021-01-15 12:54:00 68 /min [facility] Body temperature 2021-01-15 12:54:00 36.11 Shawna [facility] Respiratory rate 2021-01-15 12:54:00 18 /min [facility] Oxygen saturation in Arterial blood by Pulse oximetry 2021-01-15 12:54:00 98 /min [facility] Body weight 2021-01-14 09:00:00 96.616 kg [facility] BMI 2021-01-14 09:00:00 35.45 kg/m2 [facility] Body height 2021-01-12 20:03:00 165.1 cm [facility] Procedures Procedure Date / Time Performed Performing Clinician Source POCT Glucose 2024-03-10 00:00:[address] [facility] [employer] [place] 1 HOUR INTRAOPERATIVE 2024-03-05 11:40:00 Jeff Gonzalez [facility] Epic ORIF, ANKLE 2024-03-05 08:35:00 Dirk Gonzalez [facility] Epic REMOVAL, EXTERNAL FIXATION DEVICE 2024-03-05 08:35:00 Dirk Gonzalez [facility] POC URINE MANUALLY RESULTED 2024-03-05 07:11:00 Dirk Gonzalez [place] XR ankle 2 views right 2024-03-05 00:00:[address] [facility] [place] Epic ORIF, ANKLE 2024-02-26 07:35:00 Dirk Gonzalez [facility] Epic REMOVAL, EXTERNAL FIXATION DEVICE 2024-02-26 07:35:00 Dirk Gonzalez [facility] POC URINE MANUALLY RESULTED 2024-02-26 05:54:00 Dirk Gonzalez [facility] [employer] POCT glucose meter docked device 2024-02-26 00:00:[address] [facility] [employer] Beta hCG Qualitative Urine 2024-02-26 00:00:[address] [facility] [employer] ECG 12-LEAD 2024-02-17 15:11:56 Malcom Hill [facility] COMPREHENSIVE METABOLIC PANEL 2024-02-10 04:57:00 Basilio Bazzidarrian [facility] COMPLETE BLOOD COUNT W/DIFF AND PLATELET 2024-02-10 04:57:00 Basilio Bazzi [facility] COMPLETE BLOOD COUNT 2024-02-10 04:57:00 [facility] 2024-02-10 04:57:00 Basilio Bazzidarrian [facility] ECG 12-LEAD 2024-02-09 18:12:51 JluisVonda marisela [facility] [place] LESS THAN 1 HOUR INTRAOPERATIVE 2024-02-09 16:15:00 Dirk Gonzalez [facility] TYPE AND SCREEN 2024-02-09 13:49:00 [place] [facility] CT ANKLE RIGHT WO IV CONTRAST 2024-02-09 08:43:30 Francis, Jorge Romero [facility] BETA HCG QUALITATIVE URINE 2024-02-09 08:31:00 Francis, Jorge Romero [facility] XR TIBIA FIBULA 2 VIEWS RIGHT 2024-02-09 05:55:00 Francis, Jorge Romero [facility] XR ANKLE 3+ VIEWS RIGHT 2024-02-09 05:55:00 Francis, Jorge Romero [facility] XR FOOT 3+ VIEWS RIGHT 2024-02-09 05:55:00 Francis, Jorge blue [facility] XR ANKLE 3+ VIEWS RIGHT 2024-02-09 04:49:00 Reji Hill [facility] BASIC METABOLIC PANEL 2024-02-09 03:55:00 Kathy Hill [facility] HCG TOTAL (QUANTITATIVE) 2024-02-09 03:55:00 [place] [facility] COMPLETE BLOOD COUNT W/DIFF AND PLATELET 2024-02-09 03:55:00 [place] [facility] COMPLETE BLOOD COUNT 2024-02-09 03:55:00 [place] [facility] AUTOMATED DIFFERENTIAL 2024-02-09 03:55:00 Mando Hill [facility] EKG-12 LEAD 2023-12-22 04:02:26 [facility] 2023-12-22 01:59:00 Amara Sams ra [facility] MAGNESIUM 2023-12-22 01:55:00 [facility] 2023-12-22 01:55:00 Melissa [facility] THYROID STIMULATING HORMONE 2023-12-22 01:55:00 Melissa Sams [facility] COMP. METABOLIC PANEL ([id number]) 2023-12-22 01:55:00 Melissa Sams [facility] CBC WITH DIFF 2023-12-22 01:55:00 [facility] 2023-12-22 01:55:00 Melissa [facility] T[facility] 2023-12-22 01:55:00 [facility] TRANSTHORACIC ECHO (TTE) COMPLETE 2023-09-04 16:53:00 Sonja Eastman [facility] POCT URINALYSIS W/O SPECIFIC GRAVITY 2023-07-17 00:00:00 Abhinav Huang [facility] CT HEAD WO CONTRAST 2023-07-03 22:16:00 Bernadette Laguna [facility] ASSIGNMENT OF BENEFITS 2023-07-03 21:46:56 Docto r Unassigned, [place] [facility] POCT GLUCOSE (AUTOMATED) 2023-07-03 21:22:00 Jw Laguna [facility] POCT TEST 2023-07-03 21:18:00 Bernadette Laguna [facility] MAGNESIUM 2023-07-03 21:17:00 Saida Laguna [facility] COMP. METABOLIC PANEL ([id number]) 2023-07-03 21:17:00 Saida Laguna [facility] CBC WITH DIFF 2023-07-03 21:17:00 Saida Laguna [facility] URINALYSIS 2023-07-03 21:17:00 Saida Laguna [facility] URINE DRUG (IMMUNOASSAY) - COMPREHENSIVE DRUG SCREEN W/O REFLEX 2023-07-03 21:17:00 Saida Laguna [facility] CONSENT/REFUSAL FOR DIAGNOSIS AND TREATMENT 2023-07-03 20:46:48 Doctor Unassigned, [place] [facility] ASSIGNMENT OF BENEFITS 2023-06-14 05:46:57 Docto r Unassigned, [place] [facility] NOTICE OF PRIVACY PRACTICES 2023-06-14 05:19:53 Doctor Unassigned, [place] [facility] CONSENT/REFUSAL FOR DIAGNOSIS AND TREATMENT 2023-06-14 05:19:16 Doctor Unassigned, [place] [facility] POCT TEST 2023-05-11 12:48:00 Nicole Sloan [facility] URINALYSIS 2023-05-11 12:44:00 Abdirashid Sloan [facility] LIPASE 2023-05-11 12:34:00 Abdirashid Sloan [facility] COMP. METABOLIC PANEL ([id number]) 2023-05-11 12:34:00 Abdirashid Sloan [facility] CBC WITH DIFF 2023-05-11 12:34:00 Singer [facility] CONSENT/REFUSAL FOR DIAGNOSIS AND TREATMENT 2023-05-11 12:19:52 Doctor Unassigned, [place] [facility] CONSENT/REFUSAL FOR DIAGNOSIS AND TREATMENT 2022-10-29 13:15:54 Doctor Unassigned, [place] [facility] POCT TEST 2022-07-31 03:16:00 Magalys Lacey [facility] MAGNESIUM 2022-07-31 03:10:00 Magalys Lacey [facility] COMP. METABOLIC PANEL ([id number]) 2022-07-31 03:10:00 Magalys Lacey [facility] CBC WITH DIFF 2022-07-31 03:10:00 Mag[facility]ys [facility] URINALYSIS 2022-07-31 03:10:00 Magalys Lacey [facility] NOTICE OF PRIVACY PRACTICES 2022-07-31 00:59:00 Doctor Unassigned, [place] [facility] CONSENT/REFUSAL FOR DIAGNOSIS AND TREATMENT 2022-07-31 00:58:05 Doctor Unassigned, [place] [facility] RAPID STREP SCREEN FOR GROUP A 2022-05-22 01:35:00 Tracy Wheeler [facility] CONSENT/REFUSAL FOR DIAGNOSIS AND TREATMENT 2022-05-22 01:15:31 Doctor Unassigned, [place] [facility] RAPID STREP SCREEN FOR GROUP A 2022-03-30 13:29:00 Kiran Scales [facility] RAPID INFLUENZA A/B 2022-03-30 13:29:00 Kiran Scales [facility] COVID-19 (ID NOW RAPID TESTING) 2022-03-30 13:29:00 Kiran Scales [facility] CONSENT/REFUSAL FOR DIAGNOSIS AND TREATMENT 2022-03-30 12:31:52 Doctor Unassigned, [place] [facility] POCT TEST 2022-03-28 00:00:00 Elliot Gould [facility] PREPARE PACKED RBC 2022-03-01 01:11:43 Elliot Gould [facility] CBC WITH DIFF 2022-02-27 10:28:00 Elliot Gould [facility] CBC WITH DIFF 2022-02-27 10:28:00 Elliot Gould [facility] PREPARE PACKED RBC 2022-02-27 01:40:56 Elliot Gould [facility] CBC WITH DIFF 2022-02-26 23:01:00 Elliot Gould [facility] HEPATITIS B SURFACE ANTIGEN 2022-02-26 23:01:00 Elliot Gould [facility] ADC OR TIFFANI ONLY - RPR 2022-02-26 23:01:00 Gregory Gould [facility] CBC WITH DIFF 2022-02-26 23:01:00 Elliot Gould [facility] HEPATITIS B SURFACE ANTIGEN 2022-02-26 23:01:00 Elliot Gould [facility] ADC OR TIFFANI ONLY - RPR 2022-02-26 23:01:00 Gregory Gould [facility] HB ABO GROUPING 2022-02-26 23:00:00 BryannaElliot [facility] RHO (D) IMMUNE GLOBULIN 2022-02-26 23:00:00 Elliot Gould [facility] HB ABO GROUPING 2022-02-26 23:00:00 Elliot Gould [facility] RHO (D) IMMUNE GLOBULIN 2022-02-26 23:00:00 Elliot Gould [facility] ASSIGNMENT OF BENEFITS 2022-02-26 21:46:08 Docto r Unassigned, [place] [facility] DSU PRE-OP 2022-02-26 06:01:00 Doctor Unass igned, [place] [facility] DSU PRE-OP 2022-02-26 06:01:00 Doctor Unass igned, [place] [facility] POCT URINALYSIS W/O SPECIFIC GRAVITY 2022-02-26 00:00:00 GouldElliot [facility] URINALYSIS 2022-02-25 20:15:00 AdSonia pierce [facility] CONSENT/REFUSAL FOR DIAGNOSIS AND TREATMENT 2022-02-25 19:07:24 Doctor Unassigned, [place] [facility] ASSIGNMENT OF BENEFITS 2022-02-25 19:06:09 Docto r Unassigned, [place] [facility] POCT URINALYSIS W/O SPECIFIC GRAVITY 2022-02-14 15:42:00 GouldElliot [facility] CONSENT/REFUSAL FOR DIAGNOSIS AND TREATMENT 2022-02-09 05:01:00 Doctor Unassigned, [place] [facility] AMYLASE 2022-02-08 22:31:00 Bryanna Elliot [facility] LIPASE 2022-02-08 22:31:00 Bryanna [facility] COMP. METABOLIC PANEL ([id number]) 2022-02-08 22:31:00 Bryanna Elliot [facility] CBC WITH DIFF 2022-02-08 22:31:00 Bryanna Elliot [facility] ASSIGNMENT OF BENEFITS 2022-02-08 19:31:04 Docto r Unassigned, [place] [facility] CONSENT/REFUSAL FOR DIAGNOSIS AND TREATMENT 2022-02-08 19:30:26 Doctor Unassigned, [place] [facility] POCT GLUCOSE (AUTOMATED) 2022-02-03 21:46:00 Elliot Gould Everett [facility] CONSENT/REFUSAL FOR DIAGNOSIS AND TREATMENT 2022-02-03 21:09:38 Doctor Unassigned, [place] [facility] HB ABO GROUPING 2022-02-02 07:25:00 Ly, [facility] LACTATE DEHYDROGENASE 2022-02-02 04:42:00 Ly, [facility] URIC ACID 2022-02-02 04:42:00 Ly, [facility] COMP. METABOLIC PANEL ([id number]) 2022-02-02 04:42:00 Benson [facility] CBC WITH DIFF 2022-02-02 04:42:00 Ly, [facility] URINALYSIS 2022-02-02 04:42:00 Ly, [facility] HEPATITIS B SURFACE ANTIGEN 2022-02-02 04:42:00 Ly, [facility] PROTEIN CREAT RATIO URINE RANDOM 2022-02-02 04:42:00 Ly, [facility] HIV 1/2 AG-AB WITH REFLEX 2022-02-02 04:42:00 Ly, [facility] GALV ONLY - SYPHILIS IGG/IGM 2022-02-02 04:42:00 Ly, [facility] HOSPITAL ADMISSION 2022-02-01 05:01:00 Doctor Un assigned, [place] [facility] POCT URINALYSIS W/O SPECIFIC GRAVITY 2022-01-31 00:00:00 Shari Diamond [facility] ASSIGNMENT OF BENEFITS 2022-01-30 18:48:53 Docliv r Unassigned, [place] [facility] NOTICE OF PRIVACY PRACTICES 2022-01-29 03:52:27 Doctor Unassigned, [place] [facility] ASSIGNMENT OF BENEFITS 2022-01-29 03:49:18 Docto r Unassigned, [place] [facility] URINALYSIS 2022-01-17 18:50:00 Bryanna [facility] TDAP VACCINE, >11 YRS, IM 2022-01-17 18:16:09 BryannaGregory Everett [facility] FLU VACC (), 6 MO-64 YRS, .5ML, IM, QUAD (FLUCELVAX) 2022-01-17 18:16:09 Elliot Gould [facility] POCT URINALYSIS W/O SPECIFIC GRAVITY 2022-01-17 00:00:00 Elliot Gould [facility] POCT URINALYSIS W/O SPECIFIC GRAVITY 2021-12-20 14:00:00 Lobo Shari [facility] SECOND AND THIRD TRIMESTER ULTRASOUND 2021-12-15 14:11:00 Elliot Gould [facility] POCT URINALYSIS W/O SPECIFIC GRAVITY 2021-11-22 00:00:00 Elliot Gould [facility] CONSENT/REFUSAL FOR DIAGNOSIS AND TREATMENT 2021-10-24 19:11:23 Doctor Unassigned, [place] [facility] ASSIGNMENT OF BENEFITS 2021-10-24 19:10:45 Docto r Unassigned, [place] [facility] POCT URINALYSIS W/O SPECIFIC GRAVITY 2021-10-24 00:00:00 Lobo Shari [facility] SCANNED LAB RESULTS 2021-09-26 05:01:00 Doctor Brenden walden, [place] [facility] POCT URINALYSIS W/O SPECIFIC GRAVITY 2021-09-26 00:00:00 Elliot Gould [facility] POCT URINALYSIS W/O SPECIFIC GRAVITY 2021-08-29 20:41:00 Shari Diamond [facility] POCT URINALYSIS W/O SPECIFIC GRAVITY 2021-08-01 00:00:00 Elliot Gould [facility] US FIRST TRIMESTER LESS THAN 14 WEEKS WITH TRANSVAGINAL 2021-07-31 19:50:00 Elliot Gould [facility] US OB TRANSVAGINAL 2021-07-19 20:49:29 Elliot Gould [facility] ASSIGNMENT OF BENEFITS 2021-07-19 20:24:08 Docto r Unassigned, [place] [facility] FLU VACC ([id number]), 2-64 YRS, .5ML, IM, QUAD (FLUCELVAX) 2021-07-19 19:47:42 Elliot Gould [facility] POCT TEST 2021-07-19 00:00:00 Elliot Gould [facility] POCT URINALYSIS W/O SPECIFIC GRAVITY 2021-07-19 00:00:00 Elliot Gould [facility] CT ANGIOGRAM HEAD 2021-01-15 15:55:38 Nohemy Leung [facility] CT ANGIOGRAM HEAD 2021-01-15 15:55:38 Nohemy Leung [facility] MR BRAIN W WO CONTRAST 2021-01-15 01:57:00 Garry Cox [facility] MR BRAIN W WO CONTRAST 2021-01-15 01:57:00 Garry Cox [facility] BASIC METABOLIC PANEL (NA, K, CL, CO2, GLUCOSE, BUN, CREATININE, CA) 2021-01-14 09:29:00 Libra [facility] MAGNESIUM 2021-01-14 09:29:00 Juan Smyth [facility] MAGNESIUM 2021-01-14 09:29:00 Juan Smyth [facility] BASIC METABOLIC PANEL (NA, K, CL, CO2, GLUCOSE, BUN, CREATININE, CA) 2021-01-14 09:29:00 [facility] 2021-01-14 09:25:00 Juan Smyth [facility] CBC WITH DIFF 2021-01-14 09:25:00 [facility] SPINAL LUMBAR PUNCTURE DIAGNOSTIC 2021-01-13 21:32:50 Libra [facility] IR SPINAL LUMBAR PUNCTURE DIAGNOSTIC 2021-01-13 21:32:50 Libra, [facility] BODY FLUID MANUAL DIFF 2021-01-13 21:00:00 Nicolas Smyth [facility] CEREBROSPINAL FLUID GLUCOSE 2021-01-13 21:00:00 Juan Smyth [facility] CEREBROSPINAL FLUID PROTEIN 2021-01-13 21:00:00 Juan Smyth [facility] CSF CULTURE 2021-01-13 21:00:00 Alejandra [facility] EXTRA TUBE CSF 2021-01-13 21:00:00 Juan Smyth [facility] CEREBROSPINAL FLUID PROTEIN 2021-01-13 21:00:00 Juan Smyth [facility] CEREBROSPINAL FLUID GLUCOSE 2021-01-13 21:00:00 Juan Smyth [facility] BODY FLUID DIRECT COUNT 2021-01-13 21:00:00 Frantz Smyth [facility] EXTRA TUBE CSF 2021-01-13 21:00:00 Juan Smyth [facility] CSF CULTURE 2021-01-13 21:00:00 Emanuel Roberts [facility] PROTHROMBIN TIME / INR 2021-01-13 18:57:00 Nicolas Smyth [facility] PROTHROMBIN TIME / INR 2021-01-13 18:57:00 Nicolas Smyth [facility] PROTHROMBIN TIME / INR 2021-01-13 09:30:00 Silvana Guzman [facility] ACTIVATED PARTIAL THRMPLAS WILLIAM 2021-01-13 09:30:00 Megan [facility] PROTHROMBIN TIME / INR 2021-01-13 09:30:00 Silvana Guzman [facility] ACTIVATED PARTIAL THRMPLAS WILLIAM 2021-01-13 09:30:00 [facility] 2021-01-13 04:33:00 Peter Garcia [facility] COMP. METABOLIC PANEL ([id number]) 2021-01-13 04:33:00 Peter Garcia [facility] MAGNESIUM 2021-01-13 04:33:00 Abel Guzman [facility] TROPONIN I 2021-01-13 04:33:00 NathalieechAbel ruiz [facility] MAGNESIUM 2021-01-13 04:33:00 Abel Guzman [facility] TROPONIN I 2021-01-13 04:33:00 [facility] COMP. METABOLIC PANEL ([id number]) 2021-01-13 04:33:00 Peter Garcia [facility] CBC WITH DIFF 2021-01-13 04:33:00 Peter Garcia [facility] COVID-19 (ID NOW RAPID TESTING) 2021-01-13 03:33:00 Kayla Goodson [facility] COVID-19 (ID NOW RAPID TESTING) 2021-01-13 03:33:00 Kayla Goodson [facility] LAB ONLY COVID INTERPRETATION 2021-01-13 03:33:00 Kayla Goodson [facility] CONSENT/REFUSAL FOR DIAGNOSIS AND TREATMENT 2021-01-13 01:53:28 Doctor Unassigned, [place] [facility] CONSENT/REFUSAL FOR DIAGNOSIS AND TREATMENT 2021-01-13 01:53:28 Doctor Unassigned, [place] [facility] POCT TEST 2020-12-29 07:22:00 Coleen Miller [facility] NOTICE OF PRIVACY PRACTICES 2020-12-29 07:04:36 Doctor Unassigned, [place] [facility] CONSENT/REFUSAL FOR DIAGNOSIS AND TREATMENT 2020-12-29 07:04:21 Doctor Unassigned, [place] [facility] POCT TEST 2020-11-22 05:08:00 Amara Sams ra [facility] CBC WITH DIFF 2020-11-22 04:55:00 Melissa Sams [facility] BASIC METABOLIC PANEL (NA, K, CL, CO2, GLUCOSE, BUN, CREATININE, CA) 2020-11-22 04:55:00 Melissa Sams [facility] NOTICE OF PRIVACY PRACTICES 2020-11-22 04:19:31 Doctor Unassigned, [place] [facility] CONSENT/REFUSAL FOR DIAGNOSIS AND TREATMENT 2020-11-22 04:17:24 Doctor Unassigned, [place] [facility] EMERGENCY SERVICES AGREEMENTS AND AUTHORIZATIONS 2020-11-21 05:01:00 Doctor Unassigned, [place] [facility] GC & CHLAMYDIA AMPLIFIED ASSAY 2020-11-07 18:21:00 Lobo [facility] GALV ONLY - VAGINAL PATHOGENS BY NUCLEIC ACID TESTING 2020-11-07 18:21:00 Shari Diamond [facility] CT ANGIOGRAM HEAD 2020-10-27 07:36:57 Nkechi Olivares [facility] CT ANGIOGRAM NECK 2020-10-27 07:36:57 Nkechi Olivares [facility] CT HEAD WO CONTRAST 2020-10-27 07:33:49 Nkechi Olivares [facility] CBC WITH DIFF 2020-10-27 07:04:00 Nkechi Olivares [facility] BASIC METABOLIC PANEL (NA, K, CL, CO2, GLUCOSE, BUN, CREATININE, CA) 2020-10-27 07:04:00 Nkechi Olivares [facility] CONSENT/REFUSAL FOR DIAGNOSIS AND TREATMENT 2020-10-27 06:17:09 Doctor Unassigned, [place] [facility] EMERGENCY SERVICES AGREEMENTS AND AUTHORIZATIONS 2020-10-27 05:01:00 Doctor Unassigned, [place] [facility] POCT TEST 2020-10-25 23:55:00 Nkechi Olivares [facility] URINALYSIS 2020-10-25 23:48:00 Nkechi Olivares [facility] NOTICE OF PRIVACY PRACTICES 2020-10-25 22:10:05 Doctor Unassigned, [place] [facility] CONSENT/REFUSAL FOR DIAGNOSIS AND TREATMENT 2020-10-25 22:09:41 Doctor Unassigned, [place] [facility] EMERGENCY SERVICES AGREEMENTS AND AUTHORIZATIONS 2020-10-25 05:01:00 Doctor Unassigned, [place] [facility] SECTION Elliot Gould [facility] SECTION Elliot Gould [facility] ECG 12 lead [facility] Oxygen Therapy - Patient Type: Adult; Device: Simple Face Mask; Rate in liters per minute: 6 Lpm; Follow Respiratory Pathway: Yes Yvan Stoll Incentive spirometry Arcadio dooley Melchor [facility] ECG 12 lead Yvan quispe Epic Encounters Start Date/Time End Date/Time Encounter Type Admission Type Attending [facility] Facility Care Department Encounter ID Source 2022-11-20 09:52:09 Outpatient SAMMY JI [id number] ELCAMPO ELCAMPO [id number] [facility] 2022-02-02 14:13:49 Outpatient X [facility] [id number] [facility] 2021-02-21 01:01:49 Emergency [facility] [id number] [facility] 2021-02-20 21:22:40 Emergency [facility] [id number] [facility] 2021-02-20 12:36:56 Emergency [facility] [id number] [facility] 2021-02-20 06:43:59 Emergency [facility] [id number] [facility] 2021-02-20 06:24:27 Emergency [facility] [id number] [facility] 2021-02-16 20:10:04 Outpatient P [facility] [id number] [facility] 2021-02-16 17:53:58 Outpatient P [facility] [id number] [facility] 2021-02-16 16:15:54 Outpatient P [facility] [id number] [facility] 2024-08-31 11:00:00 2024-08-31 11:00:00 Outpatient DRIK GONZALEZ [facility] [id number] [facility] 2024-06-01 12:30:00 2024-06-01 12:48:08 Outpatient [facility] [id number] [facility] 2024-06-01 12:30:00 2024-06-01 12:48:08 Office Visit Dirk Gonzalez [facility] [address] [facility] 1.2.840.114 350.1.13.58 9.2.7.2.686 [id number] [facility] 2024-05-25 10:45:00 2024-05-25 10:45:00 Outpatient DIRK GONZALEZ [facility] [id number] [facility] 2024-05-25 10:45:00 2024-05-25 10:45:00 Outpatient [facility] [id number] [facility] 2024-04-13 12:00:00 2024-04-13 12:48:13 Office Visit Dirk Gonzalez [facility] [address] 1.2.840.114 350.1.13.58 9.2.7.2.686 [id number] [facility] 2024-04-13 12:00:00 2024-04-13 12:48:13 Outpatient [facility] [id number] [facility] 2024-03-23 14:00:00 2024-03-23 14:54:15 Office Visit Adi Armendariz [facility] [address] [facility] 1..840.114 350.1.13.58 9.2.7.2.686 [id number] [facility] 2024-03-23 14:15:00 2024-03-23 14:15:00 Outpatient [facility] [id number] [facility] 2024-03-23 13:45:00 2024-03-23 13:45:00 Outpatient [facility] [id number] [facility] 2024-03-16 09:45:00 2024-03-16 09:45:00 Outpatient DIRK GONZALEZ [facility] [id number] [facility] 2024-03-09 08:00:00 2024-03-09 08:00:00 Outpatient DIRK GONZALEZ [facility] [id number] [facility] 2024-03-05 06:23:00 2024-03-05 18:20:00 Hospital Encounter Dirk Gonzalez [facility] 1..840.114 350.1.13.70 8.2.7.2.686 [id number] [facility] 2024-03-05 06:23:00 2024-03-05 18:20:00 Outpatient Elective DIRK GONZALEZ [facility] [id number] [facility] 2024-02-26 05:07:00 2024-02-26 23:59:00 Hospital Encounter Dirk Gonzalez [facility] 1.84.114 350.1.13.70 8.2.7.2.686 [id number] Arcadio l [place] [facility] 2024-02-26 05:07:00 2024-02-26 23:59:00 Outpatient Elective DIRK GONZALEZ [facility] [id number] [facility] 2024-02-17 08:45:00 2024-02-17 08:56:18 Office Visit Adi Armendariz [facility] [address] [facility] 1.840.114 350.1.13.58 9.2.7.2.686 [id number] [facility] 2024-02-09 03:08:00 2024-02-10 15:48:00 Hospital Encounter Fanny Borges, Joie Bazzi, Mone Waldron [facility] 1.84.114 350.1.13.70 8.2.7.2.686 [id number] Arcadio l [facility] 2024-02-09 03:08:00 2024-02-10 15:48:00 Inpatient Elective MONE VARELA [facility] General Medicine [id number] [facility] 2024-02-17 15:11:56 2024-02-09 23:59:00 Inpatient Elective MHEHVI EH[facility] [id number] [facility] 2024-02-09 13:45:00 2024-02-09 23:59:00 Hospital Encounter Resource, Hvi V Ecg Gen [facility] [place] [facility] 1.840.114 350.1.13.70 8.2.7.2.686 [id number] Memoria l [facility] 2024-01-17 11:00:00 2024-01-17 11:00:00 Outpatient R ANNA HEARN [facility] [id number] [facility] 2024-01-13 00:00:00 2024-01-14 07:36:03 Patient [facility] 1.2.840.114 350.1.13.10 4.2.7.2.686 [id number] [facility] 2023-12-25 00:00:00 2023-12-30 08:40:13 Patient Secure Sheila Greer [facility] PROFESSIO NAL BUILDING 1.2.840.114 350.1.13.10 4.2.7.2.686 [id number] [facility] 2023-12-25 00:00:00 2023-12-26 09:11:10 [facility]ill [facility] 1..840.114 350.1.13.10 4.2.7.2.686 [id number] [facility] 2023-12-26 09:00:00 2023-12-26 09:00:00 Outpatient R [facility] [id number] [facility] 2023-12-21 20:40:00 2023-12-21 23:13:00 Emergency X MELISSA SAMS SANDRA [facility] ERT [id number] [facility] 2023-12-21 20:40:00 2023-12-21 23:13:00 Emergency Melissa Sams [facility] 1.2.840.114 350.1.13.10 4.2.7.2.686 [id number] [facility] 2023-11-28 20:02:00 2023-11-29 01:59:00 [id number] [facility] 2023-11-12 13:00:00 2023-11-12 13:00:00 Outpatient ALLIE KELLY [facility] [id number] [facility] 2023-10-23 14:30:00 2023-10-23 14:30:00 Lab Clerk Visit Lab, Ang - Db Anna Hearn [facility] 1.2.840.114 350.1.13.10 4.2.7.2.686 [id number] [facility] 2023-10-23 14:00:00 2023-10-23 14:24:11 Outpatient ANNA GARRISON [facility] [id number] [facility] 2023-10-23 14:00:00 2023-10-23 14:24:11 Office Visit Anna Hearn [facility]?MELLISSAGerard [facility] 1..840.114 350.1.13.10 4.2.7.2.686 [id number] [facility] 2023-09-05 00:00:00 2023-10-12 18:24:26 Patient Secure Msg Doctor Unassigned, [place] [facility] 1..840.114 350.1.13.10 4.2.7.2.686 [id number] [facility] 2023-10-07 09:00:00 2023-10-07 09:00:00 Outpatient SHEILA FOLEY [facility] [id number] [facility] 2023-10-04 00:00:00 2023-10-04 00:00:00 Outpatient ALVERTO TEJADA [facility] [id number] Tim [facility] 2023-10-02 13:00:00 2023-10-02 13:00:00 Outpatient ANAN GARRISON [facility] [id number] [facility] 2023-08-28 00:00:00 2023-09-28 18:21:55 Patient Secure Msg Doctor Unassigned, [place] [facility] 1.84.114 350.1.13.10 4.2.7.2.686 [id number] [facility] 2023-09-27 00:00:00 2023-09-27 00:00:00 Outpatient ALVERTO TEJADA [facility] [id number] Tim figueredo [facility] 2023-09-20 08:00:00 2023-09-20 08:00:00 Outpatient R SONJA EASTMAN [facility] [id number] [facility] 2023-09-19 13:30:00 2023-09-19 13:30:00 Outpatient R SONJA EASTMAN [facility] [id number] [facility] 2023-09-17 09:00:00 2023-09-17 09:00:00 Outpatient R ABHINAV HUANG [facility] [id number] [facility] 2023-09-13 14:00:00 2023-09-13 14:11:05 Outpatient R SHEILA ORTA [facility] [id number] [facility] 2023-09-13 14:00:00 2023-09-13 14:11:05 Office Visit Sheila Orta [facility] NAL BUILDING 1.840.114 350.1.13.10 4.2.7.2.686 [id number] [facility] 2023-09-10 13:45:00 2023-09-10 14:00:00 Lab Clerk Visit Lab, Anna Luna [facility] 1..840.114 350.1.13.10 4.2.7.2.686 [id number] [facility] 2023-09-10 12:30:00 2023-09-10 12:55:44 Outpatient R ANNA HEARN [facility] [id number] [facility] 2023-09-10 12:30:00 2023-09-10 12:55:44 Office Visit Anna Hearn [facility] SURESH?[facility] 1.2.840.114 350.1.13.10 4.2.7.2.686 [id number] [facility] 2023-09-05 00:00:00 2023-09-09 11:18:19 Telephone Anna Hearn [facility] SURESH?[facility] 1.2.840.114 350.1.13.10 4.2.7.2.686 [id number] [facility] 2023-09-04 11:10:47 2023-09-04 23:59:00 Outpatient R SONJA EASTMAN [facility] [id number] [facility] 2023-09-04 11:10:47 2023-09-04 23:59:00 Hospital Encounter Sonja Eastman [facility] 1.2.840.114 350.1.13.10 4.2.7.2.686 [id number] [facility] 2023-08-29 10:45:00 2023-08-29 11:00:00 Lab Clerk Visit Lab, Ang - Shahid Anna Hearn [facility] SURESH?CHRIS [facility] 1.2.840.114 350.1.13.10 4.2.7.2.686 [id number] [facility] 2023-08-29 10:00:00 2023-08-29 10:10:47 Outpatient R ANNA HEARN [facility] [id number] [facility] 2023-08-29 10:00:00 2023-08-29 10:10:47 Office Visit Anna Hearn [facility] SURESH?[facility] 1.840.114 350.1.13.10 4.2.7.2.686 [id number] [facility] 2023-08-28 08:00:00 2023-08-28 08:00:00 Outpatient R ANNA HEARN [facility] [id number] [facility] 2023-08-26 11:30:00 2023-08-26 11:45:38 Outpatient R SONJA EASTMAN [facility] [id number] [facility] 2023-08-26 11:30:00 2023-08-26 11:45:38 Office Visit Sonja Eastman [facility] 1.840.114 350.1.13.10 4.2.7.2.686 [id number] [facility] 2023-07-31 12:16:00 2023-07-31 23:22:00 Outpatient M SAMMY JI [id number] [facility] [id number] [place] [facility] 2023-07-19 00:00:00 2023-07-19 00:00:[address] [facility] 1..840.114 350.1.13.10 4.2.7.2.686 [id number] [facility] 2023-07-19 00:00:00 2023-07-19 00:00:00 Patient Secure Msg Doctor Unassigned, [place] [facility] 1..840.114 350.1.13.10 4.2.7.2.686 [id number] [facility] 2023-07-17 12:30:00 2023-07-17 12:30:00 Office Visit Abhinav Huang [facility] 1..114 350.1.13.10 4.2.7.2.686 [id number] [facility] 2023-07-17 12:30:00 2023-07-17 12:22:54 Outpatient R ABHINAV HUANG [facility] [id number] [facility] 2023-07-17 09:30:00 2023-07-17 09:30:00 Outpatient R [facility] [id number] [facility] 2023-07-11 10:30:00 2023-07-11 10:30:00 Outpatient R ABHINAV HUANG [facility] [id number] [facility] 2023-07-04 00:00:00 2023-07-04 00:00:00 Patient Secure Msg Doctor Unassigned, [place] [facility] 1..114 350.1.13.10 4.2.7.2.686 [id number] [facility] 2023-07-03 15:54:00 2023-07-03 18:47:00 [facility] [id number] [facility] 2023-07-03 15:54:00 2023-07-03 18:47:00 Emergency Saida Laguna [facility] 1.84.114 350.1.13.10 4.2.7.2.686 [id number] [facility] 2023-06-13 23:30:00 2023-06-14 00:10:00 Emergency X DENIS, SAL[facility]HOMY [facility] [id number] [facility] 2023-06-13 23:30:00 2023-06-14 00:10:00 Emergency Denis, [facility] 1..114 350.1.13.10 4.2.7.2.686 [id number] [facility] 2023-06-13 00:00:00 2023-06-13 00:00:00 Orders Only Doctor Unassigned, [place] [facility] 1.2.840.114 350.1.13.10 4.2.7.2.686 [id number] [facility] 2023-05-15 00:00:00 2023-05-15 00:00:00 Patient Secure Msg Doctor Unassigned, [place] [facility] 1.2840.114 350.1.13.10 4.2.7.2.686 [id number] [facility] 2023-05-13 00:00:00 2023-05-13 00:00:00 Letter (Out[facility] 1.840.114 350.1.13.10 4.2.7.2.686 [id number] [facility] 2023-05-11 06:26:00 2023-05-11 08:31:00 [facility] [id number] 2023-05-11 06:26:00 2023-05-11 08:31:00 Emergency [facility] 1.840.114 350.1.13.10 4.2.7.2.686 [id number] [facility] 2023-04-27 00:00:00 2023-04-27 00:00:00 Alverto Foster [facility] 1.2840.114 350.1.13.10 4.2.7.2.686 [id number] [facility] 2023-04-03 14:00:00 2023-04-03 14:00:00 Outpatient ALVERTO TEJADA [facility] [id number] Tim [facility] 2023-03-04 00:00:00 2023-03-04 00:00:00 Case Management Annelise Brown 1.2.840.114 350.1.13.10 4.2.7.2.686 [id number] [facility] 2023-02-14 09:15:00 2023-02-14 09:15:00 Outpatient COSME BOYER [facility] [id number] [facility] 2023-02-01 09:51:00 2023-02-01 14:57:00 Outpatient M EL, [place] [id number] N ELCAMPO NO SHOW/CANCEL LED [id number] [facility] 2023-01-25 10:52:00 2023-01-25 14:21:00 Outpatient M EL, [place] [id number] N ELCAM[facility] NO SHOW/CANCEL LED [id number] [facility] 2023-01-21 15:00:00 2023-01-21 15:20:00 Office Visit Alverto Olivares [facility] [place] [facility] 1.2.840.114 350.1.13.10 4.2.7.2.686 [id number] [facility] 2023-01-21 15:00:00 2023-01-21 15:00:00 Outpatient ALVERTO TEJADA [facility] [id number] [facility] 2022-12-26 09:30:00 2022-12-26 09:30:00 Outpatient GLORIA HOLLEY CRAIG [facility] [id number] [facility] 2022-12-14 09:19:00 2022-12-14 13:26:00 Outpatient SAMMY BURK [id number] [facility] [id number] [facility] 2022-12-12 13:00:00 2022-12-12 13:00:00 Outpatient R [facility] [id number] [facility] 2022-11-20 10:20:00 2022-11-20 17:52:00 Outpatient SAMMY JI [id number] [facility] [id number] [place] [facility] 2022-11-12 10:00:00 2022-11-12 10:15:00 Office Visit Cosme Brennan [facility] 1.2840.114 350.1.13.10 4.2.7.2.686 [id number] [facility] 2022-11-12 10:00:00 2022-11-12 10:00:00 Outpatient COSME BOYER [facility] [id number] [facility] 2022-10-29 13:00:00 2022-10-29 15:00:00 Ancillary Visit Anna Dejesus Deborah L [facility] 1.840.114 350.1.13.10 4.2.7.2.686 [id number] [facility] 2022-10-29 13:00:00 2022-10-29 13:00:00 Outpatient LISA ROSALES [facility] [id number] [facility] 2022-10-29 08:15:00 2022-10-29 09:00:00 Ancillary Visit 1, [employer] Lisa Garcia [facility] 1.2840.114 350.1.13.10 4.2.7.2.686 [id number] [facility] 2022-10-29 00:00:00 2022-10-29 00:00:00 Orders Only Doctor Unassigned, [place] [facility] 1.84.114 350.1.13.10 4.2.7.2.686 [id number] [facility] 2022-10-18 09:30:00 2022-10-18 09:30:00 Outpatient ELLIOT MOJICA [facility] [id number] [facility] 2022-08-23 13:30:00 2022-08-23 13:45:00 Office Visit Cosme Brennan [facility] RANDEE NORIEGA 1.2.840.114 350.1.13.10 4.2.7.2.686 [id number] [facility] 2022-08-23 13:30:00 2022-08-23 13:30:00 Outpatient R COSME BRENNAN [facility] [id number] [facility] 2022-08-09 10:00:00 2022-08-09 10:00:00 Outpatient R COSME BRENNAN [facility] [id number] [facility] 2022-08-01 13:20:00 2022-08-01 13:20:00 Outpatient ALVERTO TEJADA [facility] [id number] [facility] 2022-07-30 20:13:00 2022-07-31 00:14:00 [facility] [id number] [facility] 2022-07-30 20:13:00 2022-07-31 00:14:00 Emergency Magalys Lacey [facility] 1.2840.114 350.1.13.10 4.2.7.2.686 [id number] [facility] 2022-06-08 09:30:00 2022-06-08 09:30:00 Outpatient ELLIOT MOJICA [facility] [id number] [facility] 2022-05-21 19:31:00 2022-05-21 20:58:00 Emergency X TRACY WHEELER [facility] ERT [id number] [facility] 2022-05-21 19:31:00 2022-05-21 20:58:00 Emergency Tracy Wheeler [facility] 1.2840.114 350.1.13.10 4.2.7.2.686 [id number] [facility] 2022-05-17 00:00:00 2022-05-17 00:00:00 Patient Secure Elliot Harrison [facility] 1.2.840.114 350.1.13.10 4.2.7.2.686 [id number] [facility] 2022-05-14 08:30:00 2022-05-14 08:30:00 Outpatient R ELLIOT GOULD [facility] [id number] [facility] 2022-04-11 00:00:00 2022-04-11 00:00:00 Patient Secure Elliot Harrison [facility] 1.2.840.114 350.1.13.10 4.2.7.2.686 [id number] [facility] 2022-03-30 06:43:00 2022-03-30 09:05:00 Emergency X KIRAN SCALES [facility] ERT [id number] [facility] 2022-03-30 06:43:00 2022-03-30 09:05:00 Emergency Yordy Kiran E [facility] 1.2.840.114 350.1.13.10 4.2.7.2.686 [id number] [facility] 2022-03-28 09:45:00 2022-03-28 10:52:09 Outpatient R ELLIOT GOULD [facility] [id number] [facility] 2022-03-28 09:45:00 2022-03-28 10:52:09 Routine Visit Elliot Gould [facility] 1.2.840.114 350.1.13.10 4.2.7.2.686 [id number] [facility] 2022-03-14 09:40:00 2022-03-14 09:40:00 Outpatient R ALVERTO OLIVARES [facility] [id number] [facility] 2022-03-08 09:45:00 2022-03-08 10:14:58 Outpatient R ELLIOT GOULD [facility] [id number] [facility] 2022-03-08 09:45:00 2022-03-08 10:14:58 Routine Visit Elliot Gould [facility] BUILDING 1..840.114 350.1.13.10 4.2.7.2.686 [id number] [facility] 2022-02-26 15:51:00 2022-02-28 18:50:00 Inpatient P ELLIOT GOULD [facility] JAVAD [id number] [facility] 2022-02-26 15:51:00 2022-02-28 18:50:00 Hospital Encounter Elliot Gould [facility] 1.2.840.114 350.1.13.10 4.2.7.2.686 [id number] [facility] 2022-02-26 15:00:00 2022-02-26 15:25:23 Outpatient R ELLIOT GOULD [facility] [id number] [facility] 2022-02-26 15:00:00 2022-02-26 15:25:23 Routine Visit Elliot Gould [facility] BUILDING 1.2.840.114 350.1.13.10 4.2.7.2.686 [id number] [facility] 2022-02-26 00:00:00 2022-02-26 00:00:00 Orders Only Doctor Unassigned, [place] [facility] 1..840.114 350.1.13.10 4.2.7.2.686 [id number] [facility] 2022-02-26 00:00:00 2022-02-26 00:00:00 Prep For Surgery Elliot Gould [facility] PROFESSIO [facility] 1.2.840.114 350.1.13.10 4.2.7.2.686 [id number] [facility] 2022-02-26 00:00:00 2022-02-26 00:00:00 Surgery Elliot Gould [facility] 1.2.840.114 350.1.13.10 4.2.7.2.686 [id number] [facility] 2022-02-25 13:15:00 2022-02-25 15:05:00 Outpatient X SONIA MAYBERRY [facility] JAVAD [id number] [facility] 2022-02-25 13:15:00 2022-02-25 15:05:00 Emergency AdSonia pierce [facility] 1.2.840.114 350.1.13.10 4.2.7.2.686 [id number] [facility] 2022-02-25 00:00:00 2022-02-25 00:00:00 Orders Only Doctor Unassigned, [place] [facility] 1.2.840.114 350.1.13.10 4.2.7.2.686 [id number] [facility] 2022-02-23 10:30:00 2022-02-23 11:00:00 Lab Clerk Visit 3, [facility] 1.2.840.114 350.1.13.10 4.2.7.2.686 [id number] [facility] 2022-02-23 10:30:00 2022-02-23 10:30:00 Outpatient P MORGAN GRANDE SANGE[facility]A [facility] [id number] [facility] 2022-02-14 11:00:00 2022-02-14 11:50:02 Outpatient R ELLIOT GOULD [facility] [id number] [facility] 2022-02-14 11:00:00 2022-02-14 11:50:02 Routine Visit Elliot Gould [facility] 1..840.114 350.1.13.10 4.2.7.2.686 [id number] [facility] 2022-02-10 13:42:29 2022-02-10 23:59:00 Outpatient R ELLIOT GOULD [facility] [id number] [facility] 2022-02-10 13:42:29 2022-02-10 23:59:00 Hospital Encounter Elliot Gould [facility] 1.840.114 350.1.13.10 4.2.7.2.686 [id number] [facility] 2022-02-10 13:41:56 2022-02-10 13:41:56 Hospital Encounter Elliot Gould [facility] 1.840.114 350.1.13.10 4.2.7.2.686 [id number] [facility] 2022-02-09 00:00:00 2022-02-09 00:00:00 Case Management Elliot Gould [facility] 1..840.114 350.1.13.10 4.2.7.2.686 [id number] [facility] 2022-02-09 00:00:00 2022-02-09 00:00:00 Patient Secure Msg Elliot Gould [facility] 1..840.114 350.1.13.10 4.2.7.2.686 [id number] [facility] 2022-02-09 00:00:00 2022-02-09 00:00:00 Orders Only Doctor Unassigned, [place] [facility] 1.0114 350.1.13.10 4.2.7.2.686 [id number] [facility] 2022-02-08 14:39:00 2022-02-08 22:01:00 Outpatient X [facility] JAVAD [id number] [facility] 2022-02-08 14:39:00 2022-02-08 22:01:00 Emergency Colin [place] AdSonia pierce L [facility] 1.0.114 350.1.13.10 4.2.7.2.686 [id number] [facility] 2022-02-08 00:00:00 2022-02-08 00:00:00 Orders Only Doctor Unassigned, [place] [facility] 1.0114 350.1.13.10 4.2.7.2.686 [id number] [id number] [facility] 2022-02-07 12:40:00 2022-02-07 12:55:59 Outpatient R ALVERTO OLIVARES [facility] [id number] [facility] 2022-02-07 12:40:00 2022-02-07 12:55:59 Office Visit Alverto Olivares [facility] 1.114 350.1.13.10 4.2.7.2.686 [id number] [id number] [facility] 2022-02-03 16:20:00 2022-02-03 21:24:00 Outpatient X ELLIOT GOULD [facility] JAVAD [id number] [facility] 2022-02-03 16:20:00 2022-02-03 21:24:00 Emergency Nataliya Dickson Vien Cam [facility] 1..114 350.1.13.10 4.2.7.2.686 [id number] [id number] [facility] 2022-02-03 00:00:00 2022-02-03 00:00:00 Orders Only Doctor Unassigned, [place] [facility] 1.2.840.114 350.1.13.10 4.2.7.2.686 [id number] [id number] [facility] 2022-02-01 20:31:00 2022-02-02 14:10:00 Inpatient X NOEL COOLEY [facility] JAVAD [id number] [facility] 2022-02-01 20:31:00 2022-02-02 14:10:00 Hospital Encounter En Noel [facility] 1.2.840.114 350..13.10 4.2.7.2.686 [id number] 135 [id number] [facility] 2022-02-02 08:30:00 2022-02-02 08:30:00 Outpatient R [facility] [id number] [facility] 2022-02-01 09:45:00 2022-02-01 10:00:00 Lab Clerk Visit Pob, Adc Lab Main Lobo [facility] 1..840.114 350.1.13.10 4.2.7.2.686 [id number] [facility] 2022-02-01 09:45:00 2022-02-01 09:45:00 Outpatient R LOU[facility]LENCHO [facility] [id number] [facility] 2022-02-01 00:00:00 2022-02-01 00:00:00 Case Management Lobo [facility] 1..840.114 350.1.13.10 4.2.7.2.686 [id number] 134 [id number] [facility] 2022-02-01 00:00:00 2022-02-01 00:00:00 Patient Secure Msg Elliot Gould [facility] 1.840.114 350.1.13.10 4.2.7.2.686 [id number] [facility] 2022-02-01 00:00:00 2022-02-01 00:00:00 Orders Only Doctor Unassigned, [place] [facility] 1.284.114 350.1.13.10 4.2.7.2.686 [id number] 009 [id number] [facility] 2022-01-31 11:15:00 2022-01-31 11:57:42 Outpatient SHARI IZAGUIRRE [facility] [id number] [facility] 2022-01-31 11:15:00 2022-01-31 11:57:42 Routine Visit Shari Diamond [facility] 1.840.114 350.1.13.10 4.2.7.2.686 [id number] 134 [id number] [facility] 2022-01-30 13:50:00 2022-01-30 17:35:00 Outpatient P ELLIOT GOULD [facility] JAVAD [id number] [facility] 2022-01-30 13:50:00 2022-01-30 17:35:00 Hospital Encounter Elliot Gould [facility] 1.84.114 350.1.13.10 4.2.7.2.686 [id number] 083 [id number] [facility] 2022-01-30 13:00:00 2022-01-30 13:15:00 Nurse Visit Nurse, [facility] 1.284.114 350.1.13.10 4.2.7.2.686 [id number] 134 [id number] [facility] 2022-01-30 13:00:00 2022-01-30 13:00:00 Outpatient R SHARI DIAMOND [facility] [id number] [facility] 2022-01-30 00:00:00 2022-01-30 00:00:00 Patient Secure Lisset Rodas [facility] 1.2.840.114 350.1.13.10 4.2.7.2.686 [id number] 134 [id number] [facility] 2022-01-30 00:00:00 2022-01-30 00:00:00 Orders Only Doctor Unassigned, [place] [facility] 1.0.114 350.1.13.10 4.2.7.2.686 [id number] [facility] 2022-01-30 00:00:00 2022-01-30 00:00:00 Case Management Elliot Gould [facility] 1.84.114 350.1.13.10 4.2.7.2.686 [id number] 134 [id number] [facility] 2022-01-28 22:59:00 2022-01-28 23:50:00 Outpatient X ADANA SONIA [facility] JAVAD [id number] [facility] 2022-01-28 22:59:00 2022-01-28 23:50:00 Emergency Adum Sonia Soumya [facility] 1.84.114 350.1.13.10 4.2.7.2.686 [id number] [id number] [facility] 2022-01-28 00:00:00 2022-01-28 00:00:00 Orders Only Doctor Unassigned, [place] [facility] 1.20.114 350.1.13.10 4.2.7.2.686 [id number] [id number] [facility] 2022-01-26 10:30:00 2022-01-26 11:30:51 Lab Clerk Visit 3, [facility] Us Ran Stein M [facility] 1.2.840.114 350.1.13.10 4.2.7.2.686 [id number] [facility] 2022-01-26 10:30:00 2022-01-26 10:30:00 Outpatient P RAN ARRIAZA SHANNON [facility] [id number] [facility] 2022-01-25 08:00:00 2022-01-25 08:00:00 Outpatient R [facility] [id number] [facility] 2022-01-19 00:00:00 2022-01-19 00:00:00 Telephone GouldElliot [facility] BUILDING 1.2.840.114 350.1.13.10 4.2.7.2.686 [id number] 134 [id number] [facility] 2022-01-19 00:00:00 2022-01-19 00:00:00 Patient Secure Msg Elliot Gould [facility] BUILDING 1.2.840.114 350.1.13.10 4.2.7.2.686 [id number] 134 [id number] [facility] 2022-01-18 08:30:00 2022-01-18 08:30:00 Outpatient R [facility] [id number] [facility] 2022-01-17 13:00:00 2022-01-17 13:50:08 Outpatient R BRYANNA ELLIOT [facility] [id number] [facility] 2022-01-17 13:00:00 2022-01-17 13:50:08 Routine Visit Elliot Gould [facility] BUILDING 1.2.840.114 350.1.13.10 4.2.7.2.686 [id number] 134 [id number] [facility] 2022-01-03 09:00:00 2022-01-03 09:00:00 Outpatient R SHARI DIAMOND [facility] [id number] [facility] 2021-12-20 09:00:00 2021-12-20 09:16:25 Outpatient R SHARI DIAMOND [facility] [id number] [facility] 2021-12-20 09:00:00 2021-12-20 09:16:25 Routine Visit Shari Diamond [facility] 1..114 350.1.13.10 4.2.7.2.686 [id number] [facility] 2021-12-15 08:30:00 2021-12-15 09:29:43 Lab Clerk Visit 1, [facility] .114 350.1.13.10 4.2.7.2.686 [id number] [facility] 2021-12-15 08:30:00 2021-12-15 08:30:00 [facility] [id number] 2021-12-13 11:00:00 2021-12-13 11:00:00 Outpatient R ALVERTO OLIVARES [facility] [id number] [facility] 2021-11-22 11:00:00 2021-11-22 12:06:39 Outpatient R ELLIOT GOULD [facility] [id number] [facility] 2021-11-22 11:00:00 2021-11-22 12:06:39 Routine Visit Elliot Gould [facility] ..114 350.1.13.10 4.2.7.2.686 [id number] [facility] 2021-11-07 08:00:00 2021-11-07 09:15:48 Lab [facility] S[facility]GR[facility] 1.114 350.1.13.10 4.2.7.2.686 [id number] [facility] 2021-11-07 08:00:00 2021-11-07 08:00:00 Outpatient P GUS SANTAMARIA [facility] [id number] [facility] 2021-10-31 00:00:00 2021-10-31 00:00:00 Patient Secure Msg Elliot Gould [facility] BUILDING 1.840.114 350.1.13.10 4.2.7.2.686 [id number] 134 [id number] [facility] 2021-10-24 15:30:00 2021-10-24 15:45:00 Lab Clerk Visit 2, Adc Lab Femimagan [facility] 1.840.114 350.1.13.10 4.2.7.2.686 [id number] 353 [id number] [facility] 2021-10-24 15:30:00 2021-10-24 15:30:00 Outpatient R LOBO [facility] [id number] [facility] 2021-10-24 14:30:00 2021-10-24 15:01:58 Routine Visit Femimagan [facility] 1.840.114 350.1.13.10 4.2.7.2.686 [id number] 134 [id number] [facility] 2021-10-24 00:00:00 2021-10-24 00:00:00 Orders Only Doctor Unassigned, [place] [facility] ..114 350.1.13.10 4.2.7.2.686 [id number] 009 [id number] [facility] 2021-10-11 00:00:00 2021-10-11 00:00:[address] [facility] BUILDING 1.840.114 350.1.13.10 4.2.7.2.686 [id number] 134 [id number] [facility] 2021-09-26 13:15:00 2021-09-26 13:28:48 Outpatient R ELLIOT GOULD [facility] [id number] [facility] 2021-09-26 13:15:00 2021-09-26 13:28:48 Routine Visit Elliot Gould [facility] 1.2840.114 350.1.13.10 4.2.7.2.686 [id number] 134 [id number] [facility] 2021-09-26 11:30:00 2021-09-26 11:45:00 Lab Clerk Visit 2, Adc Lab Elliot Gould [facility] 1.2840.114 350.1.13.10 4.2.7.2.686 [id number] [facility] 2021-09-26 00:00:00 2021-09-26 00:00:00 Orders Only Doctor Unassigned, [place] [facility] 1.2.840.114 350.1.13.10 4.2.7.2.686 [id number] 009 [id number] [facility] 2021-09-21 00:00:00 2021-09-21 00:00:00 Letter (Out) Lobo Shari [facility] 1.2840.114 350.1.13.10 4.2.7.2.686 [id number] 134 [id number] [facility] 2021-09-21 00:00:00 2021-09-21 00:00:00 Patient Secure Msg Lobo Shari [facility] 1.2840.114 350.1.13.10 4.2.7.2.686 [id number] 134 [id number] [facility] 2021-09-12 11:30:00 2021-09-12 11:30:00 Outpatient R [facility] [id number] [facility] 2021-08-29 14:00:00 2021-08-29 16:02:24 Outpatient R SHARI DIAMOND [facility] [id number] [facility] 2021-08-29 14:00:00 2021-08-29 14:15:00 Routine Visit Shari Diamond [facility] 1.2.840.114 350.1.13.10 4.2.7.2.686 [id number] 134 [id number] [facility] 2021-08-07 12:00:00 2021-08-07 12:15:00 Lab Clerk Visit Pob, Adc Lab Main Bryanna Elliot [facility] BUILDING 1.2.840.114 350.1.13.10 4.2.7.2.686 [id number] [facility] 2021-08-07 12:00:00 2021-08-07 12:00:00 Outpatient R ELLIOT GOULD [facility] [id number] [facility] 2021-08-02 13:00:00 2021-08-02 13:00:00 Outpatient R [facility] [id number] [facility] 2021-08-01 13:00:00 2021-08-01 13:27:48 Outpatient R ELLIOT GOULD [facility] [id number] [facility] 2021-08-01 13:00:00 2021-08-01 13:27:48 Routine Visit GouldElliot Everett [facility] BUILDING 1.2.840.114 350.1.13.10 4.2.7.2.686 [id number] 134 [id number] [facility] 2021-07-31 14:06:26 2021-07-31 23:59:00 Outpatient R ELLIOT GOULD [facility] [id number] [facility] 2021-07-31 14:06:26 2021-07-31 23:59:00 Hospital Encounter Elliot Gould [facility] 1.2.840.114 350.1.13.10 4.2.7.2.686 [id number] [facility] 2021-07-24 13:15:00 2021-07-24 13:30:00 Lab Clerk Visit 2, Adc Lab Bryanna [facility] BUILDING 1.2.840.114 350.1.13.10 4.2.7.2.686 [id number] [facility] 2021-07-24 13:15:00 2021-07-24 13:15:00 Outpatient R BRYANNA [facility] [id number] [facility] 2021-07-24 00:00:00 2021-07-24 00:00:00 Telephone Elliot Gould [facility] BUILDING 1.2.840.114 350.1.13.10 4.2.7.2.686 [id number] 134 [id number] [facility] 2021-07-24 00:00:00 2021-07-24 00:00:00 Case Management Elliot Gould [facility] BUILDING 1.2.840.114 350.1.13.10 4.2.7.2.686 [id number] [facility] 2021-07-21 13:00:00 2021-07-21 13:15:00 Lab Clerk Visit 2, Ad[facility] 1.2.840.114 350.1.13.10 4.2.7.2.686 [id number] [facility] 2021-07-21 13:00:00 2021-07-21 13:00:00 Outpatient R GOULD, [facility] [id number] [facility] 2021-07-19 15:30:00 2021-07-19 15:45:00 Lab Clerk Visit 2, Adc Lab Elliot Gould [facility] 1.2.840.114 350.1.13.10 4.2.7.2.686 [id number] 353 [id number] [facility] 2021-07-19 14:30:00 2021-07-19 15:11:33 Outpatient R ELLIOT GOULD [facility] [id number] [facility] 2021-07-19 14:30:00 2021-07-19 15:11:33 Initial Visit Elliot Gould [facility] BU[facility] 1..840.114 350.1.13.10 4.2.7.2.686 [id number] 134 [id number] [facility] 2021-07-19 00:00:00 2021-07-19 00:00:00 Orders Only Doctor Unassigned, [place] [facility] 1..840.114 350.1.13.10 4.2.7.2.686 [id number] [facility] 2021-05-12 00:00:00 2021-05-12 00:00:00 Patient Secure Msg Shari Diamond [facility] BUILDING 1..840.114 350.1.13.10 4.2.7.2.686 [id number] [facility] 2021-03-03 13:00:00 2021-03-03 13:00:00 Outpatient R FIDELINA [facility] [id number] [facility] 2021-01-31 13:00:00 2021-01-31 13:00:00 Outpatient R DERRICK CARBONE [facility] [id number] [facility] 2021-01-22 00:00:00 2021-01-22 00:00:00 Patient Secure Msg Doctor Unassigned, [place] [facility] 1.2.840.114 350.1.13.10 4.2.7.2.686 [id number] [facility] 2021-01-20 00:00:00 2021-01-20 00:00:00 Patient Secure Msg Doctor Unassigned, [place] [facility] 1.2840.114 350.1.13.10 4.2.7.2.686 [id number] [facility] 2021-01-18 00:00:00 2021-01-18 00:00:00 Patient Secure Msg Doctor Unassigned, [place] [facility] 1.2.840.114 350.1.13.10 4.2.7.2.686 [id number] [id number] [facility] 2021-01-17 00:00:00 2021-01-17 00:00:00 Transition of Care [facility] 1.2.840.114 350.1.13.10 4.2.7.2.686 [id number] [facility] 2021-01-12 20:54:00 2021-01-15 15:00:00 Hospital Encounter Emanuel Roberts [facility] 1.2840.114 350.1.13.10 4.2.7.2.686 [id number] [id number] [facility] 2021-01-12 14:58:23 2021-01-12 15:58:23 Office Visit Alverto Olivares, [facility] Neurology Continuity 1..840.1 81434.1.1 3.104.2.7 .3.942870 .8 [id number] [facility] 2021-01-12 15:30:00 2021-01-12 15:30:00 Outpatient R ALVERTO OLIVARES [facility] [id number] [facility] 2021-01-12 00:00:00 2021-01-12 00:00:00 Travel 1.2.840.1 89886.1.1 3.104.2.7 .3.964238 .8 1.2.840.114 350.1.13.10 4.2.7.3.698 084.8 [id number] [facility] 2021-01-12 00:00:00 2021-01-12 00:00:00 Telephone Clinic, [facility] Neurology [facility] 1.2.840.114 350.1.13.10 4.2.7.2.686 [id number] [id number] [facility] 2021-01-09 13:30:00 2021-01-09 13:30:00 Outpatient ALPHONSO ALFREDO [facility] [id number] [facility] 2020-12-29 02:14:00 2020-12-29 02:47:00 Emergency Coleen Miller [facility] 1.2.840.114 350.1.13.10 4.2.7.2.686 [id number] [id number] [facility] 2020-12-29 02:14:00 2020-12-29 02:47:00 Emergency Coleen Miller 1.2.840.1 50776.1.1 3.104.2.7 .3.017505 .8 [id number] [facility] 2020-12-29 00:00:00 2020-12-29 00:00:00 Travel 1.2.840.1 07588.1.1 3.104.2.7 .3.683943 .8 1.2.840.114 350.1.13.10 4.2.7.3.698 084.8 [id number] [facility] 2020-12-23 10:00:00 2020-12-23 10:00:00 Outpatient LISA ROSALES [facility] [id number] [facility] 2020-12-19 00:00:00 2020-12-19 00:00:00 Outpatient COSME BOYER [facility] [id number] [facility] 2020-12-13 00:00:00 2020-12-13 00:00:00 Travel 1.2.840.1 37692.1.1 3.104.2.7 .3.687205 .8 1.2.840.114 350.1.13.10 4.2.7.3.698 084.8 [id number] [facility] 2020-12-12 14:30:00 2020-12-12 14:30:00 Outpatient SHARI IZAGUIRRE [facility] [id number] [facility] 2020-12-02 09:17:22 2020-12-02 09:47:22 Office Visit Cosme Brennan [facility] 1.2.840.114 350.1.13.10 4.2.7.2.686 [id number] [facility] 2020-12-02 09:17:22 2020-12-02 09:47:22 Office Visit Cosme Brennan 1.2.840.1 33061.1.1 3.104.2.7 .3.176701 .8 [id number] [facility] 2020-12-02 09:30:00 2020-12-02 09:30:00 Outpatient COSME BOYER [facility] [id number] [facility] 2020-12-02 00:00:00 2020-12-02 00:00:00 Travel 1.2.840.1 38266.1.1 3.104.2.7 .3.131146 .8 1.2.840.114 350.1.13.10 4.2.7.3.698 084.8 [id number] [facility] 2020-11-21 23:30:00 2020-11-22 01:52:00 Emergency Melissa Sams [facility] 1.2.840.114 350.1.13.10 4.2.7.2.686 [id number] 084 [id number] [facility] 2020-11-21 23:30:00 2020-11-22 01:52:00 Emergency Melissa Sams 1.2.840.1 11877.1.1 3.104.2.7 .3.642776 .8 [id number] [facility] 2020-11-22 00:00:00 2020-11-22 00:00:00 Patient Secure Msg Doctor Unassigned, [place] [facility] 1.2.840.114 350.1.13.10 4.2.7.2.686 [id number] 019 [id number] [facility] 2020-11-21 00:00:00 2020-11-21 00:00:00 Orders Only Doctor Unassigned, [place] [facility] 1.2.840.114 350.1.13.10 4.2.7.2.686 [id number] 009 [id number] [facility] 2020-11-21 00:00:00 2020-11-21 00:00:00 Travel 1.2.840.1 18600.1.1 3.104.2.7 .3.584980 .8 1.2.840.114 350.1.13.10 4.2.7.3.698 084.8 [id number] [facility] 2020-11-21 00:00:00 2020-11-21 00:00:00 Orders Only Doctor Unassigned, [place] 1.2.840.1 77669.1.1 3.104.2.7 .3.976510 .8 [id number] [facility] 2020-11-08 08:00:00 2020-11-08 08:00:00 Outpatient SHARI IZAGUIRRE [facility] [id number] [facility] 2020-11-07 12:50:14 2020-11-07 14:30:12 Office Visit Shari Diamond 1.2.840.1 99155.1.1 3.104.2.7 .3.972152 .8 [id number] [facility] 2020-11-07 12:50:14 2020-11-07 13:20:14 Office Visit Shari Diamond [facility] 1.2.840.114 350.1.13.10 4.2.7.2.686 [id number] [facility] 2020-11-07 13:00:00 2020-11-07 13:00:00 Outpatient R SHARI DIAMOND [facility] [id number] [facility] 2020-11-07 00:00:00 2020-11-07 00:00:00 Travel 1.2.840.1 03491.1.1 3.104.2.7 .3.976968 .8 1.2.840.114 350.1.13.10 4.2.7.3.698 084.8 [id number] [facility] 2020-11-03 03:41:00 2020-11-03 03:41:00 Outpatient JOAN [facility] [id number] [facility] 2020-10-27 01:43:00 2020-10-27 03:43:00 Emergency Nkechi Olivares Phillip [facility] 1.2.840.114 350.1.13.10 4.2.7.2.686 [id number] 084 [id number] [facility] 2020-10-27 01:43:00 2020-10-27 03:43:00 Emergency Nkechi Olivares Phillip 1.2.840.1 37948.1.1 3.104.2.7 .3.340340 .8 [id number] [facility] 2020-10-27 00:00:00 2020-10-27 00:00:00 Travel 1.2.840.1 10957.1.1 3.104.2.7 .3.740799 .8 1.2.840.114 350.1.13.10 4.2.7.3.698 084.8 [id number] [facility] 2020-10-25 17:16:00 2020-10-25 20:33:00 Emergency Nkechi Olivares [facility] 1.2.840.114 350.1.13.10 4.2.7.2.686 [id number] 084 [id number] [facility] 2020-10-25 17:16:00 2020-10-25 20:33:00 Emergency Nkechi Olivares 1.2.840.1 73903.1.1 3.104.2.7 .3.289360 .8 [id number] [facility] 2020-10-25 00:00:00 2020-10-25 00:00:00 Travel 1.2.840.1 89520.1.1 3.104.2.7 .3.816402 .8 1.2.840.114 350.1.13.10 4.2.7.3.698 084.8 [id number] [facility] 2020-09-28 14:26:34 2020-09-28 14:46:15 Nurse Visit Nurse, [facility] Elliot Gould [facility] 1.2.840.114 350.1.13.10 4.2.7.2.686 [id number] [facility] 2020-09-28 14:30:00 2020-09-28 14:30:00 Outpatient R [facility] [id number] [facility] 2020-09-28 00:00:00 2020-09-28 00:00:00 Patient [facility] 1.2.840.114 350.1.13.10 4.2.7.2.686 [id number] [facility] 2020-08-23 14:30:00 2020-08-23 14:30:00 Outpatient R SHARI DIAMOND [facility] [id number] [facility] 2020-08-17 00:00:00 2020-08-17 00:00:00 Patient Secure [facility] 1.2.840.114 350.1.13.10 4.2.7.2.686 [id number] 134 [id number] [facility] 2020-08-16 00:00:00 2020-08-16 00:00:00 Patient Secure Msg Lobo [facility] BUILDING 1.2.840.114 350.1.13.10 4.2.7.2.686 [id number] [facility] 2020-08-15 00:00:00 2020-08-15 00:00:00 Case Management Shari Diamond [facility] Building 1.2.840.114 350.1.13.10 4.2.7.2.686 [id number] [facility] 2020-08-12 00:00:00 2020-08-12 00:00:[address] [facility] Building 1.2.840.114 350.1.13.10 4.2.7.2.686 [id number] 134 [id number] [facility] 2020-08-12 00:00:00 2020-08-12 00:00:00 Patient Secure Msg Lobo [facility] BUILDING 1.2.840.114 350.1.13.10 4.2.7.2.686 [id number] [facility] 2020-08-11 00:00:00 2020-08-11 00:00:00 Case Management Shari Diamond [facility] 1.2.840.114 350.1.13.10 4.2.7.2.686 [id number] [facility] 2020-08-11 00:00:00 2020-08-11 00:00:00 Telephone Shari Diamond [facility] 1.2.840.114 350.1.13.10 4.2.7.2.686 [id number] 134 [id number] [facility] 2020-08-10 14:26:30 2020-08-10 15:20:57 Office Visit Lobo [facility] 1.2840.114 350.1.13.10 4.2.7.2.686 [id number] 134 [id number] [facility] 2020-08-10 14:45:00 2020-08-10 14:45:00 Outpatient SHARI IZAGUIRRE [facility] [id number] [facility] 2020-08-10 00:00:00 2020-08-10 00:00:00 Orders Only Doctor Unassigned, [place] [facility] 1.284.114 350.1.13.10 4.2.7.2.686 [id number] [facility] 2020-07-12 00:00:00 2020-07-12 00:00:00 Patient Outreach Macario Arriaza [facility] 1.2.114 350.1.13.10 4.2.7.2.686 [id number] [facility] 2020-04-06 10:30:00 2020-04-06 10:30:00 Outpatient SHARI IZAGUIRRE [facility] [id number] [facility] 2020-03-25 13:00:00 2020-03-25 13:00:00 Outpatient SHARI IZAGUIRRE [facility] [id number] [facility] 2020-02-19 09:30:00 2020-02-19 09:30:00 Outpatient Reji CHIQUISTAYLOR GOLDSTEIN [facility] [id number] [facility] 2019-12-04 09:00:00 2019-12-04 09:00:00 Outpatient SHARI IZAGUIRRE [facility] [id number] [facility] 2019-09-24 14:37:46 2019-09-24 14:52:46 [facility] [facility] 1.2.840.114 350.1.13.10 4.2.7.2.686 [id number] 134 [id number] [facility] 2019-09-24 14:37:46 2019-09-24 14:52:46 [facility] 1.2.840.114 350.1.13.10 4.2.7.2.686 [id number] 134 [id number] 2019-09-24 14:45:00 2019-09-24 14:45:00 [id number] 2019-08-27 04:09:00 2019-08-28 21:10:00 Hospital Encounter Elliot Gould [facility] 1.2.840.114 350.1.13.10 4.2.7.2.686 [id number] 083 [id number] [facility] 2019-08-27 04:09:00 2019-08-28 21:10:00 Hospital Encounter Elliot Gould [facility] 1.2.840.114 350.1.13.10 4.2.7.2.686 [id number] 083 [id number] 2019-08-26 10:10:09 2019-08-26 10:37:20 [facility]ine Visit [facility] 1.2.840.114 350.1.13.10 4.2.7.2.686 [id number] 134 [id number] [facility] 2019-08-26 10:15:00 2019-08-26 10:15:00 Outpatient R ELLIOT GOULD [facility] [id number] [facility] 2019-08-26 09:23:44 2019-08-26 09:30:04 Laboratory Only Only, Ad[facility] 1.2.840.114 350.1.13.10 4.2.7.2.686 [id number] [facility] 2019-08-26 09:23:44 2019-08-26 09:30:04 Laboratory Only Only, Adc Test [facility] nal Building 1.2.840.114 350.1.13.10 4.2.7.2.686 [id number] 353 [id number] 2019-08-25 00:00:00 2019-08-25 00:00:00 Patient Secure Msg Elliot Gould [facility] nal Building 1.2.840.114 350.1.13.10 4.2.7.2.686 [id number] 134 [id number] [facility] 2019-08-25 00:00:00 2019-08-25 00:00:00 Patient Secure Msg [facility] 1.2.840.114 350.1.13.10 4.2.7.2.686 [id number] 134 [id number] [facility] 2019-08-25 00:00:00 2019-08-25 00:00:00 Patient Secure Msg [facility] 1.2.840.114 350.1.13.10 4.2.7.2.686 [id number] 134 [id number] 2019-08-25 00:00:00 2019-08-25 00:00:00 Patient Secure Msg Elliot Gould [facility] Building 1.2.840.114 350.1.13.10 4.2.7.2.686 [id number] 134 [id number] 2019-08-24 00:00:00 2019-08-24 00:00:00 Patient Secure Msg Elliot Gould [facility] Building 1.2.840.114 350.1.13.10 4.2.7.2.686 [id number] 134 [id number] [facility] 2019-08-24 00:00:00 2019-08-24 00:00:00 Patient Secure Msg Elliot Gould [facility] Building 1.2.840.114 350.1.13.10 4.2.7.2.686 [id number] 134 [id number] [facility] 2019-08-24 00:00:00 2019-08-24 00:00:00 Patient Secure Msg Elliot Gould [facility] Building 1.2.840.114 350.1.13.10 4.2.7.2.686 [id number] 134 [id number] 2019-08-24 00:00:00 2019-08-24 00:00:00 Patient Secure Msg Elliot Gould [facility] Building 1.2.840.114 350.1.13.10 4.2.7.2.686 [id number] 134 [id number] 2019-08-20 00:00:00 2019-08-20 00:00:[address] [facility] Building 1.2.840.114 350.1.13.10 4.2.7.2.686 [id number] 134 [id number] [facility] 2019-08-20 00:00:00 2019-08-20 00:00:00 Case Management Shari Diamond [facility] nal Building 1.2.840.114 350.1.13.10 4.2.7.2.686 [id number] 134 [id number] [facility] 2019-08-20 00:00:00 2019-08-20 00:00:00 Patient Secure Msg Elliot Gould [facility] nal Building 1.2.840.114 350.1.13.10 4.2.7.2.686 [id number] 134 [id number] [facility] 2019-08-20 00:00:00 2019-08-20 00:00:00 Patient Secure Msg Elliot Gould [facility] nal Building 1.2.840.114 350.1.13.10 4.2.7.2.686 [id number] 134 [id number] 2019-08-19 16:00:00 2019-08-19 16:00:00 Outpatient R ELLIOT GOULD [facility] [id number] [facility] 2019-08-19 09:52:56 2019-08-19 10:34:36 Routine Visit Elliot Gould [facility] [place] [facility] 1.2.840.114 350.1.13.10 4.2.7.2.686 [id number] 134 [id number] [facility] 2019-08-17 16:00:00 2019-08-17 16:00:00 Outpatient R SHARI [facility] [id number] [facility] 2019-08-13 16:05:07 2019-08-13 17:19:59 Routine Visit Elliot Gould [facility] Building 1.2.840.114 350.1.13.10 4.2.7.2.686 [id number] 134 [id number] [facility] 2019-08-13 16:00:00 2019-08-13 16:00:00 [facility] [id number] [facility] 2019-08-07 09:30:00 2019-08-07 09:30:00 Outpatient R SHARI [facility] [id number] [facility] 2019-08-06 10:44:08 2019-08-06 14:10:20 Routine Visit Shari Diamond [facility] 1.2.840.114 350.1.13.10 4.2.7.2.686 [id number] 134 [id number] [facility] 2019-08-06 11:15:00 2019-08-06 11:15:00 Outpatient R SHARI [facility] [id number] [facility] 2019-08-06 00:00:00 2019-08-06 00:00:00 Patient Secure Msg [facility] 1.2.840.114 350.1.13.10 4.2.7.2.686 [id number] 134 [id number] 2019-08-06 00:00:00 2019-08-06 00:00:00 Patient Secure Msg [facility] 1.2.840.114 350.1.13.10 4.2.7.2.686 [id number] 134 [id number] [facility] 2019-08-03 17:06:00 2019-08-03 20:15:00 Hospital Encounter Elliot Gould [facility] 1.2.840.114 350.1.13.10 4.2.7.2.686 [id number] 083 [id number] [facility] 2019-08-03 00:00:00 2019-08-03 00:00:00 Patient Secure Msg [facility] 1.2.840.114 350.1.13.10 4.2.7.2.686 [id number] 134 [id number] 2019-08-03 00:00:00 2019-08-03 00:00:00 Telephone Elliot Gould [facility] 1.2.840.114 350.1.13.10 4.2.7.2.686 [id number] 134 [id number] [facility] 2019-08-03 00:00:00 2019-08-03 00:00:00 Patient Secure Msg Elliot Gould [facility] 1.2.840.114 350.1.13.10 4.2.7.2.686 [id number] 134 [id number] [facility] 2019-07-21 16:00:00 2019-07-21 16:00:00 Outpatient R ELLIOT GOULD [facility] [id number] [facility] 2019-07-21 08:29:12 2019-07-21 15:14:02 Telemedici ne Visit [facility] 1.2.840.114 350.1.13.10 4.2.7.2.686 [id number] 134 [id number] [facility] 2019-07-20 00:00:00 2019-07-20 00:00:00 Patient Secure Msg Elliot Gould [facility] 1.2.840.114 350.1.13.10 4.2.7.2.686 [id number] 134 [id number] [facility] 2019-07-20 00:00:00 2019-07-20 00:00:00 Patient Secure Msg Elliot Gould [facility] 1.2.840.114 350.1.13.10 4.2.7.2.686 [id number] 134 [id number] [facility] 2019-07-20 00:00:00 2019-07-20 00:00:00 Patient Secure Msg Elliot Gould [facility] 1.2.840.114 350.1.13.10 4.2.7.2.686 [id number] 134 [id number] [facility] 2019-07-17 16:49:00 2019-07-17 19:25:00 Outpatient P ELLIOT GOULD [facility] JAVAD [id number] [facility] 2019-07-17 16:49:00 2019-07-17 19:25:00 Hospital Encounter Elliot Gould [facility] 1.2.840.114 350.1.13.10 4.2.7.2.686 [id number] 083 [id number] [facility] 2019-07-17 00:00:00 2019-07-17 00:00:00 Patient Secure Msg Elliot Gould [facility] 1.2.840.114 350.1.13.10 4.2.7.2.686 [id number] 134 [id number] [facility] 2019-07-17 00:00:00 2019-07-17 00:00:00 Patient Secure MsElliot Wild [facility] 1.2.840.114 350.1.13.10 4.2.7.2.686 [id number] 134 [id number] [facility] 2019-07-16 00:00:00 2019-07-16 00:00:00 Patient Secure Elliot Harrison [facility] 1.2.840.114 350.1.13.10 4.2.7.2.686 [id number] 134 [id number] [facility] 2019-07-06 11:15:00 2019-07-06 11:15:00 Outpatient R LOBO SHARI [facility] [id number] [facility] 2019-07-06 10:41:18 2019-07-06 10:56:18 Routine Visit Shari Diamond [facility] 1.2.840.114 350.1.13.10 4.2.7.2.686 [id number] 134 [id number] [facility] 2019-06-30 00:00:00 2019-06-30 00:00:00 Patient Secure Msg Elliot Gould [facility] 1.2.840.114 350.1.13.10 4.2.7.2.686 [id number] 134 [id number] [facility] 2019-06-30 00:00:00 2019-06-30 00:00:00 Patient Secure Msg [facility] 1.2.840.114 350.1.13.10 4.2.7.2.686 [id number] 134 [id number] [facility] 2019-06-29 15:38:14 2019-06-29 16:52:02 Routine Visit Elliot Gould [facility] Building 1.2.840.114 350.1.13.10 4.2.7.2.686 [id number] 134 [id number] [facility] 2019-06-29 15:45:00 2019-06-29 15:45:00 Outpatient R ELLIOT GOULD [facility] [id number] [facility] 2019-06-29 13:15:00 2019-06-29 13:15:00 Outpatient R ELLIOT GOULD [facility] [id number] [facility] 2019-06-26 08:39:29 2019-06-26 08:54:29 Lab Clerk Visit 2, Adc Lab Lobo Shari [facility] Building 1.2.840.114 350.1.13.10 4.2.7.2.686 [id number] [facility] 2019-06-26 08:45:00 2019-06-26 08:45:00 [facility] [id number] [facility] 2019-06-26 07:58:11 2019-06-26 08:35:45 Routine Visit Shari Diamond [facility] Building 1.2.840.114 350.1.13.10 4.2.7.2.686 [id number] 134 [id number] [facility] 2019-06-26 00:00:00 2019-06-26 00:00:00 Orders Only Doctor Unassigned, [place] [facility] 1.2.840.114 350.1.13.10 4.2.7.2.686 [id number] [id number] [facility] 2019-06-25 00:00:00 2019-06-25 00:00:00 Patient Secure Msg [facility] 1.2.840.114 350.1.13.10 4.2.7.2.686 [id number] 134 [id number] [facility] 2019-06-25 00:00:00 2019-06-25 00:00:00 Patient Secure Msg Elliot Gould [facility] nal Building 1.2.840.114 350.1.13.10 4.2.7.2.686 [id number] 134 [id number] [facility] 2019-06-18 00:00:00 2019-06-18 00:00:00 Patient Secure Msg [facility] 1.2.840.114 350.1.13.10 4.2.7.2.686 [id number] 134 [id number] [facility] 2019-06-01 14:22:27 2019-06-01 14:37:27 Routine Visit Shari Diamond [facility] Building 1.2.840.114 350.1.13.10 4.2.7.2.686 [id number] 134 [id number] [facility] 2019-05-29 23:53:41 2019-05-30 02:39:00 Emergency Saida Laguna [facility] 1.2.840.114 350.1.13.10 4.2.7.2.686 [id number] 084 [id number] [facility] 2019-05-29 00:00:00 2019-05-29 00:00:00 Orders Only Doctor Unassigned, [place] [facility] 1.2.840.114 350.1.13.10 4.2.7.2.686 [id number] [id number] [facility] 2019-01-06 15:20:13 2019-01-06 16:47:07 Initial Visit Shari Diamond, [facility] 1.2.840.114 350.1.13.10 4.2.7.2.686 [id number] 134 [id number] [facility] 2019-01-06 00:00:00 2019-01-06 00:00:00 Orders Only Doctor Unassigned, [place] [facility] 1.2.840.114 350.1.13.10 4.2.7.2.686 [id number] [id number] [facility] Results Test Description Test Time Test Comments Results Result Co mments Source [facility] Urine Manually Mtznqobo0297-11-44 05:54:36* Test Item Value Reference Range Interpretation Comme nts POC U Preg (test code = 6783054216) Negative POC Internal QC (test code = 1236849035) [facility] Pyukk0538-04-25 08:38:58* Test Item Value Reference Range Interpretation Comme nts U Preg Kit Lot (test code = 8424530463) U Preg Kit Exp (test code = 6828999854) 06/22/2025 U Preg IC (test code = 2272716197) Acceptable U Preg (test code = 2682049209) Negative Negative [facility] [id number] 01:59:00* Test Item Value Reference Range Interpretation Comme nts POCT PREG (test code = 1605) Negative On board controls acceptable with C Line (test code = 3574) Yes POCT PREG LOT # (test code = 3575) [id number] POCT PREG TEST DATE ( test code = 3576) 2024-08-29 Lab Interpretation (test cod e = 25127-5) Normal [facility] R[facility] MICR CULT IF LLQFETJFF1965-76-15 23:56:00* Test Item Value Reference Range Interpretation [...] RiskForSepsis-no oth srcSpecimen Description: CLEAN CATCHCBC W/AUTO [id number] 23:07:00* Test Item Value Reference Range Interpretation [...] ED, CONSISTENT WITH AUTO DIFF. BASIC METABOLIC [id number] 23:01:00* Test Item Value Reference Range Interpretation [...] CA) 9.0 mg/dL 8.0-10.5 N TROP-I HIGH [id number] 23:01:00* Test Item Value Reference Range Interpretation [...] URL. These results were obtained using Siemens AteSmarter Remarketer IM TnIHreagent. Results from different methodologies should not becompared to one another as quantitative results and URLs mayvary by method. Transthoracic echo (TTE)2023-09-04 23:59:40* Test Item Value Reference Range Interpretation Comme nts Height (test code = 8919581779) 65 in Weight (test code = 9785891021) 226 lbs Systolic BP (test code = 0410406278) 122 mmHg Diastolic BP (test code = 6901752551) 66 mmHg Heart Rate (test code = 0401001511) 73 bpm BSA (test code = 3980879517) 2.08 m2 Ao root diam (test code = 9969952428) 2.80 cm Aortic root (test code = 3961157330) 2.8 cm Ao root annulus (test code = 4130817817) 2.8 cm LVOT diameter (test code = 0757110977) 1.81 cm LVOT area (test code = 5317959703) 2.60 cm2 LA size (test code = 9689917846) 3.3 cm LVIDD (test code = 3785847862) 4.00 cm Left Ventricular End Diastolic Volume by Teichholz Method (test code = 1872665) 71.4 mL IVS (test code = 6376476746) 1.08 cm Interventricular Septum Diastolic Thickness by 2D (test code = 1358483) 1.08 cm LVPWD (test code = 7359853073) 1.09 cm PW (test code = 7238579130) 1.09 cm 0.6-1.1 EF(Teich) (test code = 1424959252) 68.20 % LVIDS (test code = 9379973281) 2.50 cm Left Ventricular End Systolic Volume by Teichholz Method (test code = 2739990) 22.7 mL FS (test code = 2262825604) 38 % EF - 2D (test code = 88327705) 68.20 % Pulmonic Regurgitant End Max Velocity (test code = 5722700874) 110.7 cm/s LAV(MOD-sp4) (test code = 7348498317) 52.90 mL E wave decelartion time (test code = 2762078944) 0.11 s MV stenosis pressure 1/2 time (test code = 5813595981) 32.0 ms MV Peak A Andreia (test code = 0219442550) 54.5 cm/s MV Peak E Andreia (test code = 6273049452) 76.0 cm/s E/A ratio (test code = 0183871201) 1.39 ratio MV Prop V (test code = 9509482627) 158.40 cm/s MV E/e' septal (test code = 3313874259) 18.7 cm/s Tapse (test code = 7152556025) 2.6 cm LVOT stroke volume (test code = 1161848843) 62.20 cm3 LVOT peak andreia (test code = 3707964658) 135.2 cm/s LVOT mn grad (test code = 1323890449) 3.3 mmHg AV LVOT peak gradient (test code = 9298467316) 7.3 mmHg LVOT peak VTI (test code = 1967989901) 24.1 cm LV V1 mean (test code = 1333685213) 85.40 cm/s Aortic valve mean velocity (test code = 9285295180) 103.9 cm/s Ao peak andreia (test code = 9585842256) 150.1 cm/s Ao VTI (test code = 4974242284) 29.6 cm AV area by cont VTI (test code = 2156854627) 2.1 cm2 AV area peak andreia (test code = 0192226017) 2.3 cm2 Ao max PG (test code = 4152497661) 9.00 mm[Hg] AV peak gradient (test code = 9281404131) 9.0 mmHg AV valve area (test code = 3366854314) 2.10 cm2 AV mean gradient (test code = 4959375729) 4.7 mmHg Radiology Study observation (narrative) (test code = 67874-5) ZAYRA (test code = ZAYRA) ?Left?Ventricle: Left [...] and spectral Doppler. Saline contrast was performed. [facility] Urinalysis w/o Specific Zytquzy9910-21-85 16:59:00* Test Item Value Reference Range Interpretation [...] = 3257) 250 Negative - Negati ve [facility] Urinalysis w/o Specific [id number] 16:59:00* Test Item Value Reference Range Interpretation [...] = 3257) 250 Negative - Negati ve [facility] WO [id number] 23:16:34EXAM: CT HEAD WO CONTRAST HISTORY: Transient [...] clear. Thecalvarium and central skull base are unremarkable.[facility] WITH [id number] 22:07:24* Test Item Value Reference Range Interpretation [...] 33.1 g/dL 31.6-35.1 RDW-SD (test code = 15862-1) 44.1 fL 39.0-49.9 RDW-CV (test code = 788-0) 13.9 % 12.0-15.5 PLT (test code = 777-3) 288 166-358 MPV (test code = 57354-0) 9.7 fL 9.5-12.9 NRBC/100 WBC (test code = 6517834168) 0.0 0.0-10.0 NRBC x10^3 (test code = 3744884293) See_Comment [Automated Trapita ge] The system which generated this result transmitted reference range: 10*3/?L. The reference range was not used to interpret this result as normal/abnormal. GRAN MAT (NEUT) % (test code = 770-8) 52.1 % IMM GRAN % (test code = 3483670305) 0.30 % LYMPH % (test code = 736-9) 38.0 % MONO % (test code = 5905-5) 7.1 % EOS % (test code = 713-8) 2.1 % BASO % (test code = 706-2) 0.4 % GRAN MAT x10^3(ANC) (test code = 8222365623) 4.70 10*3/uL 1.88-7.09 IMM GRAN x10^3 (test code = 3041948033) 0.03 10*3/uL 0.00-0.06 LYMPH x10^3 (test code = 731-0) 3.43 10*3/uL 1.32-3.29 H MONO x10^3 (test code = 742-7) 0.64 10*3/uL 0.33-0.92 EOS x10^3 (test code = 711-2) 0.19 10*3/uL 0.03-0.39 BASO x10^3 (test code = 704-7) 0.04 10*3/uL 0.01-0.07 Lab Interpretation (test code = 92153-4) Abnormal [facility] MET[facility]OLIC PANEL (49925)2023-07-03 22:06:02* Test Item Value Reference Range Interpretation Comme nts NA (test code = 5608142349) 139 mmol/L 135-145 K (test code = 4427201476) 4.0 mmol/L 3.5-5.0 CL (test code = 3351081412) 106 mmol/L 98-108 CO2 TOTAL (test code = 2798021467) 27 mmol/L 23-31 AGAP (test code = 8505368105) 6 2-16 BUN (test code = 2024489913) 9 mg/dL 7-23 GLUCOSE (test code = 3531881538) 91 mg/dL 70-110 CREATININE (test code = 2160-0) 0.58 mg/dL 0.50-1.04 TOTAL BILI (test code = 2590761707) 1.3 mg/dL 0.1-1.1 H CALCIUM (test code = 3590428850) 9.3 mg/dL 8.6-10.6 T PROTEIN (test code = 4218091161) 8.1 g/dL 6.3-8.2 ALBUMIN (test code = 6786888402) 4.5 g/dL 3.5-5.0 ALK PHOS (test code = 1937316269) 85 U/L 34-122 ALTv (test code = 1742-6) 12 U/L 5-35 AST(SGOT) (test code = 9230017332) 20 U/L 13-40 eGFR (test code = 45909-0) 128.2 mL/min/1.73m2 CKD-EPI eGFR (2020). Assuming creatinine has been stable day-to-day for at least three months, the eGFR indicates Category G1 (>= 90 mL/min/1.73 m2) Lab Interpretation (test code = 10237-2) [facility]normal [facility] 22:06:02* Test Item Value Reference Range Interpretation Comme nts MAGNESIUM (test code = 9022655151) 1.9 mg/dL 1.7-2.4 Lab Interpretation (test cod e = 18474-1) Normal [facility] GLUCOSE (AUTOMATED)2023-07-03 21:27:22* Test Item Value Reference Range Interpretation Comme nts POCT GLU (test code = 7978077385) 77 mg/dL 70-110 Lab Interpretation (test cod e = 28174-5) Normal [facility] [id number] 21:18:00* Test Item Value Reference Range Interpretation Comme nts POCT PREG (test code = 1605) Negative On board controls acceptable with C Line (test code = 3574) Yes Lab Interpretation (test cod e = 03148-2) Normal [facility] [id number] 12:48:00* Test Item Value Reference Range Interpretation Comme nts POCT PREG (test code = 1605) Negative On board controls acceptable with C Line (test code = 3574) Yes POCT PREG LOT # (test code = 2223) [id number] POCT PREG TEST DATE ( test code = 3576) 06/30/2024 Lab Interpretation (test cod e = 26389-7) Normal [facility] WITH [id number] 04:17:21* Test Item Value Reference Range Interpretation [...] 32.3 g/dL 31.6-35.1 RDW-SD (test code = 23328-1) 39.8 fL 39.0-49.9 RDW-CV (test code = 788-0) 13.2 % 12.0-15.5 PLT (test code = 777-3) 319 See_Comment [Automated messa ge] The system which generated this result transmitted reference range: 166 - 358 10*3/?L. The reference range was not used to interpret this result as normal/abnormal. MPV (test code = 24287-6) 9.7 fL 9.5-12.9 NRBC/100 WBC (test code = 8906608472) 0.0 See_Comment [Automated Knozen ssage] The system which generated this result transmitted reference range: 0.0 - 10.0 /100 WBCs. The reference range was not used to interpret this result as normal/abnormal. NRBC x10^3 (test code = 2971158281) See_Comment [Automated messa ge] The system which generated this result transmitted reference range: 10*3/?L. The reference range was not used to interpret this result as normal/abnormal. SEG % (test code = 85435-9) 60 % 33-76 LYMPH % (test code = 16510-6) 32 % 14-54 MONO % (test code = 33178-7) 8 % 0-4 H ANC (test code = 753-4) 8.04 10*3/uL 1.88-7.09 H Lab Interpretation (test code = 64759-9) Abnormal [facility]. METABOLIC PANEL (43866)2022-07-31 03:41:09* Test Item Value Reference Range Interpretation Comme nts NA (test code = 0483222628) 140 mmol/L 135-145 K (test code = 6826283870) 4.0 mmol/L 3.5-5.0 CL (test code = 8334342805) 100 mmol/L 98-108 CO2 TOTAL (test code = 1232541236) 29 mmol/L 23-31 AGAP (test code = 8225131891) 11 2-16 BUN (test code = 2292170021) 14 mg/dL 7-23 GLUCOSE (test code = 6777232744) 98 mg/dL 70-110 CREATININE (test code = 7646273303) 0.68 mg/dL 0.50-1.04 TOTAL BILI (test code = 9345508538) 1.3 mg/dL 0.1-1.1 H CALCIUM (test code = 9783056757) 10.1 mg/dL 8.6-10.6 T PROTEIN (test code = 0346139590) 8.2 g/dL 6.3-8.2 ALBUMIN (test code = 7486656560) 4.8 g/dL 3.5-5.0 ALK PHOS (test code = 1861658802) 77 U/L 34-122 ALTv (test code = 1742-6) 20 U/L 5-35 AST(SGOT) (test code = 9627622007) 21 U/L 13-40 eGFR (test code = 4070672392) 105.4 mL/min/1.73m2 ZAYRA (test code = ZAYRA) [...] imaging tests). Lab Interpretation (test code = 43807-4) [facility] Test Item Value Reference Range Interpretation Comme nts MAGNESIUM (test code = 0047671671) 1.8 mg/dL 1.7-2.4 Lab Interpretation (test cod e = 37755-1) Normal [facility] [id number] 03:16:00* Test Item Value Reference Range Interpretation Comme nts POCT PREG (test code = 1605) Negative On board controls acceptable with C Line (test code = 3574) Positive POCT PREG LOT # (test code = 3572) [id number] POCT PREG TEST DATE ( test code = 3576) 11/28/2023 Lab Interpretation (test cod e = 91463-0) Normal [facility] [id number] 17:21:00* Test Item Value Reference Range Interpretation Comme nts POCT PREG (test code = 1605) Negative On board controls acceptable with C Line (test code = 3574) Yes POCT PREG LOT # (test code = 3575) POCT PREG TEST DATE ( test code = 3576) [id number] 17:21:00* Test Item Value Reference Range Interpretation Comme nts POCT PREG (test code = 1605) Negative On board controls acceptable with C Line (test code = 3574) Yes POCT PREG LOT # (test code = 3575) POCT PREG TEST DATE ( test code = 3576) [facility] IMMUNE [id number] 03:32:31* Test Item Value Reference Range Interpretation Comme nts RHIG CANDIDATE? (test code = 5055) No- see comment Patient is not a candidate for RhIg- Patient is Rh Positive.Performed at [facility] Laboratory [facility] Blood [place] [address]Toll Free: [phone] No. [id number] [facility] (D) IMMUNE [id number] 03:32:31* Test Item Value Reference Range Interpretation Comme nts RHIG CANDIDATE? (test code = 5055) No- see comment Patient is not a candidate for RhIg- Patient is Rh Positive.Performed at [facility] Blood [place] [address]Toll Free: [phone] No. [id number] [facility] CampusType and Screen - ONCE [id number] 00:15:31 * Test Item Value Reference Range Interpretation Comme nts ABO & RH (test code = 20) O Positive Performed at [facility] Laboratory [facility] Blood [place] [address]Toll Free: [phone] No. [id number] IAT (test code = 1185) Negative Performed at [facility] Blood [place] [address]Toll Free: [phone] No. [id number] [facility]Type and Screen - ONCE [id number] 00:15:31 * Test Item Value Reference Range Interpretation Comme nts ABO & RH (test code = 20) O Positive Performed at [facility] Laboratory Services [facility] Blood [address]Toll Free: [phone] No. [id number] IAT (test code = 1185) Negative Performed at [facility] Laboratory [facility] Blood [place] [id number] Free: [phone] No. [id number] [facility] URINALYSIS W/O SPECIFIC [id number] 20:54:00* Test Item Value Reference Range Interpretation [...] [facility] URINALYSIS W/O SPECIFIC [id number] 15:42:00* Test Item Value Reference Range Interpretation [...] Comme nts POCT GLU (test code = 3564479379) 95 mg/dL 70-110 Lab Interpretation (test cod e = 29327-6) Normal [facility] CampusGALV ONLY - SYPHILIS IGG/[id number] 15:20:31* Test Item Value Reference Range Interpretation Comme nts Syphilis IgG/IgM (test code = 68181-8) Non-reactive Non-reactive ZAYRA (test code = ZAYRA) Non-reactive - No serologic evidence of T. pallidum infection. Cannot exclude incubating or early syphilis. Submit a second specimen in 2-4 weeks if syphilis is clinically suspected. Equivocal - Further testing to follow. Reactive - Further testing to follow. Lab Interpretation (test code = 70722-9) Normal [facility]Type and Screen - ONCE [id number] 08:06:59 * Test Item Value Reference Range Interpretation Comme nts ABO & RH (test code = 20) O POSITIVE Performed at [facility] Laboratory [facility] Blood [address] Free: [phone] No. [id number] IAT (test code = 1185) Negative Performed at [facility] Laboratory [facility] Blood [address] Free: [phone] No. [id number] [facility] CampusHIV 1/2 AG-AB WITH [id number] 07:40:27* Test Item Value Reference Range Interpretation Comme nts HIV Semi-quantitative (test code = 66857-0) Negative Negative ZAYRA (test code = ZAYRA) Non-reactive for HIV-1 antigen and HIV-1/HIV-2 antibodies. ?No laboratory evidence of HIV infection. ?Repeat in 2-4 weeks if acute HIV infection is suspected. [facility] CampusHEPATITIS B SURFACE [id number] 06:16:55 * Test Item Value Reference Range Interpretation Comme nts HBsAg Semi-Quantitative (amelia t code = 5195-3) Negative Negative [facility] CampusUric Acid [id number] 05:27:07* Test Item Value Reference Range Interpretation Comme nts URIC ACID (test code = 5922082531) 3.6 mg/dL 2.9-6 Lab Interpretation (test cod e = 82283-4) Normal [facility] CampusCOMP. METABOLIC PANEL (71190)2022-02-02 05:27:07* Test Item Value Reference Range Interpretation Comme nts NA (test code = 2977840293) 137 mmol/L 135-145 K (test code = 0875917574) 4.2 mmol/L 3.5-5 CL (test code = 4365472761) 103 mmol/L 98-108 CO2 TOTAL (test code = 9714801602) 26 mmol/L 23-31 AGAP (test code = 9645178603) 2-16 BUN (test code = 4422374156) 5 mg/dL 7-23 L GLUCOSE (test code = 5975896619) 98 mg/dL 70-110 CREATININE (test code = 6241138286) 0.42 mg/dL 0.5-1.04 L TOTAL BILI (test code = 7849354703) 0.9 mg/dL 0.1-1.1 CALCIUM (test code = 3027642610) 9.0 mg/dL 8.6-10.6 T PROTEIN (test code = 9005158004) 6.8 g/dL 6.3-8.2 ALBUMIN (test code = 5414337109) 3.3 g/dL 3.5-5 L ALK PHOS (test code = 4940589484) 141 U/L 34-122 H ALTv (test code = 1742-6) 7 U/L 5-35 AST(SGOT) (test code = 7809216352) 20 U/L 13-40 eGFR (test code = 3129782400) mL/min/1.73m2 ZAYRA (test code = ZAYRA) Association [...] imaging tests). Lab Interpretation (test code = 29052-5) Abnormal [facility] CampusLactate [id number] 05:25:26* Test Item Value Reference Range Interpretation Comme nts LDH (test code = 1574198167) 172 U/L 120-246 Lab Interpretation (test cod e = 50706-3) Normal [facility] with Vjxinwyiijtp8702-73-96 05:03:49* Test Item Value Reference Range Interpretation [...] 33.3 g/dL 31.6-35.1 RDW-SD (test code = 58956-3) 41.2 fL 39-49.9 RDW-CV (test code = 788-0) 13.5 % 12-15.5 PLT (test code = 777-3) See_Comment [Automated message] The system which generated this result transmitted reference range: 166 - 358 10*3/?L. The reference range was not used to interpret this result as normal/abnormal. MPV (test code = 64645-9) 10.4 fL 9.5-12.9 NRBC/100 WBC (test code = 3518138766) See_Comment [Automated message] The system which generated this result transmitted reference range: 0.0 - 10.0 /100 WBCs. The reference range was not used to interpret this result as normal/abnormal. NRBC x10^3 (test code = 8332551784) See_Comment [Automated message] The system which generated this result transmitted reference range: 10*3/?L. The reference range was not used to interpret this result as normal/abnormal. GRAN MAT (NEUT) % (test code = 770-8) 74.5 % IMM GRAN % (test code = 0383420564) 0.40 % LYMPH % (test code = 736-9) 16.4 % MONO % (test code = 5905-5) 8.2 % EOS % (test code = 713-8) 0.3 % BASO % (test code = 706-2) 0.2 % GRAN MAT x10^3(ANC) (test code = 9749974419) 11.33 10*3/uL 1.88-7.09 H IMM GRAN x10^3 (test code = 0063664502) 0.06 10*3/uL 0-0.06 LYMPH x10^3 (test code = 731-0) 2.50 10*3/uL 1.32-3.29 MONO x10^3 (test code = 742-7) 1.25 10*3/uL 0.33-0.92 H EOS x10^3 (test code = 711-2) 0.05 10*3/uL 0.03-0.39 BASO x10^3 (test code = 704-7) 0.03 10*3/uL 0.01-0.07 Lab Interpretation (test code = 76694-5) Abnormal [facility] URINALYSIS W/O SPECIFIC [id number] 15:58:00* Test Item Value Reference Range Interpretation [...] [facility] URINALYSIS W/O SPECIFIC [id number] 18:13:00* Test Item Value Reference Range Interpretation [...] [facility] URINALYSIS W/O SPECIFIC [id number] 14:00:00* Test Item Value Reference Range Interpretation [...] = 3257) n/a Negative - [facility] [id number] 15:56:00* Test Item Value Reference Range Interpretation [...] [facility] URINALYSIS W/O SPECIFIC [id number] 19:19:00* Test Item Value Reference Range Interpretation [...] [facility] URINALYSIS W/O SPECIFIC [id number] 18:31:00* Test Item Value Reference Range Interpretation [...] [facility] URINALYSIS W/O SPECIFIC [id number] 20:41:00* Test Item Value Reference Range Interpretation [...] [facility] URINALYSIS W/O SPECIFIC [id number] 18:15:00* Test Item Value Reference Range Interpretation [...] [facility] URINALYSIS W/O SPECIFIC [id number] 19:44:00* Test Item Value Reference Range Interpretation [...] - Negati ve [facility] [id number] 19:43:00* Test Item Value Reference Range Interpretation Comme nts POCT PREG (test code = 1605) Positive On board controls acceptable with C Line (test code = 3574) Yes POCT PREG LOT # (test code = 3575) POCT PREG TEST DATE ( test code = 3576) [facility]2021-09-25 10:38:19* Test Item Value Reference Range Interpretation Comme nts MAGNESIUM (test code = 8047211735) 1.8 mg/dL 1.7-2.4 Lab Interpretation (test cod e = 72644-6) Normal [facility]2021-09-25 10:38:19* Test Item Value Reference Range Interpretation Comme nts MAGNESIUM (test code = 6409141044) 1.8 mg/dL 1.7-2.4 Lab Interpretation (test cod e = 02456-7) Normal [facility] CampusBAPSYCHIATRIC METABOLIC PANEL (NA, K, CL, CO2, GLUCOSE, BUN, CREATININE, CA)2021-01-14 10:38:18* Test Item Value Reference Range Interpretation Comme nts NA (test code = 6171370111) 139 mmol/L 135-145 K (test code = 6580760824) 4.2 mmol/L 3.5-5.0 CL (test code = 0962974914) 106 mmol/L 98-108 CO2 TOTAL (test code = 2754260524) 27 mmol/L 23-31 AGAP (test code = 4725519327) 2-16 BUN (test code = 2347010052) 8 mg/dL 7-23 GLUCOSE (test code = 7804845360) 103 mg/dL 70-110 CREATININE (test code = 6699654524) 0.61 mg/dL 0.50-1.04 CALCIUM (test code = 3951541493) 9.1 mg/dL 8.6-10.6 eGFR (test code = 8725781255) mL/min/1.73m2 ZAYRA (test code = ZAYRA) Association [...] or urine or abnormalities in imaging tests). [facility] METABOLIC PANEL (NA, K, CL, CO2, GLUCOSE, BUN, CREATININE, CA)2021-01-14 10:38:18* Test Item Value Reference Range Interpretation Comme nts NA (test code = 1662337926) 139 mmol/L 135-145 K (test code = 7153210992) 4.2 mmol/L 3.5-5.0 CL (test code = 3610363567) 106 mmol/L 98-108 CO2 TOTAL (test code = 0019824692) 27 mmol/L 23-31 AGAP (test code = 1431532113) 2-16 BUN (test code = 2462741579) 8 mg/dL 7-23 GLUCOSE (test code = 0405072232) 103 mg/dL 70-110 CREATININE (test code = 2457139854) 0.61 mg/dL 0.50-1.04 CALCIUM (test code = 1257070369) 9.1 mg/dL 8.6-10.6 eGFR (test code = 5258196593) mL/min/1.73m2 ZAYRA (test code = ZAYRA) Association [...] urine or abnormalities in imaging tests). [facility] WITH [id number] 09:44:09* Test Item Value Reference Range Interpretation Comme nts WBC (test code = 6690-2) See_Comment [ToolWire] The system which generated this result transmitted reference range: 4.30 - 11.10 10*3/?L. The reference range was not used to interpret this result as normal/abnormal. RBC (test code = 789-8) See_Comment [ToolWire] The system which generated this result transmitted [...] 32.9 g/dL 31.6-35.1 RDW-SD (test code = 73067-8) 42.0 fL 39.0-49.9 RDW-CV (test code = 788-0) 12.8 % 12.0-15.5 PLT (test code = 777-3) See_Comment [Automated messa ge] The system which generated this result transmitted reference range: 166 - 358 10*3/?L. The reference range was not used to interpret this result as normal/abnormal. MPV (test code = 36718-6) 9.9 fL 9.5-12.9 NRBC/100 WBC (test code = 3554162914) See_Comment [Automated Knozen ssage] The system which generated this result transmitted reference range: 0.0 - 10.0 /100 WBCs. The reference range was not used to interpret this result as normal/abnormal. NRBC x10^3 (test code = 1625118705) <0.01 See_Comment [Automated messa ge] The system which generated this result transmitted reference range: 10*3/?L. The reference range was not used to interpret this result as normal/abnormal. GRAN MAT (NEUT) % (test code = 770-8) 43.4 % IMM GRAN % (test code = 0340310380) 0.30 % LYMPH % (test code = 736-9) 45.6 % MONO % (test code = 5905-5) 8.4 % EOS % (test code = 713-8) 1.9 % BASO % (test code = 706-2) 0.4 % GRAN MAT x10^3(ANC) (test code = 8270942385) 3.14 10*3/uL 1.88-7.09 IMM GRAN x10^3 (test code = 2888634800) <0.03 0.00-0.06 LYMPH x10^3 (test code = 731-0) 3.30 10*3/uL 1.32-3.29 H MONO x10^3 (test code = 742-7) 0.61 10*3/uL 0.33-0.92 EOS x10^3 (test code = 711-2) 0.14 10*3/uL 0.03-0.39 BASO x10^3 (test code = 704-7) 0.03 10*3/uL 0.01-0.07 Lab Interpretation (test code = 58149-5) Abnormal [facility] WITH [id number] 09:44:09* Test Item Value Reference Range Interpretation [...] 32.9 g/dL 31.6-35.1 RDW-SD (test code = 59046-5) 42.0 fL 39.0-49.9 RDW-CV (test code = 788-0) 12.8 % 12.0-15.5 PLT (test code = 777-3) See_Comment [Automated messa ge] The system which generated this result transmitted reference range: 166 - 358 10*3/?L. The reference range was not used to interpret this result as normal/abnormal. MPV (test code = 41365-1) 9.9 fL 9.5-12.9 NRBC/100 WBC (test code = 2296046048) See_Comment [Automated Knozen ssage] The system which generated this result transmitted reference range: 0.0 - 10.0 /100 WBCs. The reference range was not used to interpret this result as normal/abnormal. NRBC x10^3 (test code = 6218080231) <0.01 See_Comment [Automated messa ge] The system which generated this result transmitted reference range: 10*3/?L. The reference range was not used to interpret this result as normal/abnormal. GRAN MAT (NEUT) % (test code = 770-8) 43.4 % IMM GRAN % (test code = 4330627827) 0.30 % LYMPH % (test code = 736-9) 45.6 % MONO % (test code = 5905-5) 8.4 % EOS % (test code = 713-8) 1.9 % BASO % (test code = 706-2) 0.4 % GRAN MAT x10^3(ANC) (test code = 9079849726) 3.14 10*3/uL 1.88-7.09 IMM GRAN x10^3 (test code = 3079944224) <0.03 0.00-0.06 LYMPH x10^3 (test code = 731-0) 3.30 10*3/uL 1.32-3.29 H MONO x10^3 (test code = 742-7) 0.61 10*3/uL 0.33-0.92 EOS x10^3 (test code = 711-2) 0.14 10*3/uL 0.03-0.39 BASO x10^3 (test code = 704-7) 0.03 10*3/uL 0.01-0.07 Lab Interpretation (test code = 33411-8) Abnormal [facility] CampusPROTHROMBIN TIME / [id number] 19:19:17* Test Item Value Reference Range Interpretation [...] the indications. Lab Interpretation (test code = 10286-5) Abnormal [facility] CampusPROTHROMBIN TIME / [id number] 19:19:17* Test Item Value Reference Range Interpretation [...] the indications. Lab Interpretation (test code = 42328-4) Abnormal [facility] CampusACTIVATED PARTIAL THRMPLAS [id number] 10:00:07* Test Item Value Reference Range Interpretation Comme nts APTT Patient (test code = 3173-2) See_Comment [Automated messa ge] The system which generated this result transmitted reference range: 26 - 36 Seconds. The reference range was not used to interpret this result as normal/abnormal. Lab Interpretation (test code = 35099-2) Normal [facility] CampusACTIVATED PARTIAL THRMPLAS [id number] 10:00:07* Test Item Value Reference Range Interpretation Comme nts APTT Patient (test code = 3173-2) See_Comment [Automated messa ge] The system which generated this result transmitted reference range: 26 - 36 Seconds. The reference range was not used to interpret this result as normal/abnormal. Lab Interpretation (test code = 57270-5) Normal [facility] CampusPROTHROMBIN TIME / [id number] 10:00:06* Test Item Value Reference Range Interpretation [...] the indications. Lab Interpretation (test code = 88951-0) Abnormal [facility] CampusTROPONIN [id number] 07:01:50* Test Item Value Reference Range Interpretation Comments TROPONIN I (test code = 4766138300) 0.000 ng/mL See_Comment [Automated message] The system [...] of biotin. Lab Interpretation (test code = 87689-2) Normal [facility] CampusTRPRIS[facility]PITALNIN [id number] 07:01:50* Test Item Value Reference Range Interpretation Comments TROPONIN I (test code = 6143571587) 0.000 ng/mL See_Comment [Automated message] The system [...] of biotin. Lab Interpretation (test code = 76463-2) Normal [facility] CampusMAGNESIUM2021-09-24 06:23:04* Test Item Value Reference Range Interpretation Comme nts MAGNESIUM (test code = 7269030504) 1.8 mg/dL 1.7-2.4 Lab Interpretation (test cod e = 99956-0) Normal [facility] CampusCB WITH [id number] 05:05:49* Test Item Value Reference Range Interpretation [...] 32.9 g/dL 31.6-35.1 RDW-SD (test code = 57524-4) 41.5 fL 39.0-49.9 RDW-CV (test code = 788-0) 12.8 % 12.0-15.5 PLT (test code = 777-3) See_Comment [Automated messa ge] The system which generated this result transmitted reference range: 166 - 358 10*3/?L. The reference range was not used to interpret this result as normal/abnormal. MPV (test code = 01765-1) 9.9 fL 9.5-12.9 NRBC/100 WBC (test code = 6651986607) See_Comment [Automated Knozen ssage] The system which generated this result transmitted reference range: 0.0 - 10.0 /100 WBCs. The reference range was not used to interpret this result as normal/abnormal. NRBC x10^3 (test code = 9575084960) <0.01 See_Comment [Automated messa ge] The system which generated this result transmitted reference range: 10*3/?L. The reference range was not used to interpret this result as normal/abnormal. GRAN MAT (NEUT) % (test code = 770-8) 44.8 % IMM GRAN % (test code = 6541632451) 0.20 % LYMPH % (test code = 736-9) 45.7 % MONO % (test code = 5905-5) 7.8 % EOS % (test code = 713-8) 1.2 % BASO % (test code = 706-2) 0.3 % GRAN MAT x10^3(ANC) (test code = 4010593172) 5.32 10*3/uL 1.88-7.09 IMM GRAN x10^3 (test code = 7644286027) <0.03 0.00-0.06 LYMPH x10^3 (test code = 731-0) 5.41 10*3/uL 1.32-3.29 H MONO x10^3 (test code = 742-7) 0.93 10*3/uL 0.33-0.92 H EOS x10^3 (test code = 711-2) 0.14 10*3/uL 0.03-0.39 BASO x10^3 (test code = 704-7) 0.03 10*3/uL 0.01-0.07 Lab Interpretation (test code = 41455-7) Abnormal [facility] CampusCOMP. METABOLIC PANEL (19440)2021-01-13 04:51:47* Test Item Value Reference Range Interpretation Comme nts NA (test code = 9674283761) 142 mmol/L 135-145 K (test code = 6734010449) 4.1 mmol/L 3.5-5.0 CL (test code = 0757365814) 103 mmol/L 98-108 CO2 TOTAL (test code = 3515278181) 28 mmol/L 23-31 AGAP (test code = 7917107573) 2-16 BUN (test code = 4850869157) 8 mg/dL 7-23 GLUCOSE (test code = 9838081571) 100 mg/dL 70-110 CREATININE (test code = 9908773869) 0.67 mg/dL 0.50-1.04 TOTAL BILI (test code = 1027082971) 0.9 mg/dL 0.1-1.1 CALCIUM (test code = 9763614683) 9.8 mg/dL 8.6-10.6 T PROTEIN (test code = 0428305637) 7.9 g/dL 6.3-8.2 ALBUMIN (test code = 4427548922) 4.6 g/dL 3.5-5.0 ALK PHOS (test code = 3185056235) 81 U/L 34-122 ALTv (test code = 1742-6) 14 U/L 5-35 AST(SGOT) (test code = 3411318787) 18 U/L 13-40 eGFR (test code = 6810182612) mL/min/1.73m2 ZAYRA (test code = ZAYRA) Association [...] abnormalities in imaging tests). [facility]. METABOLIC PANEL (90037)2021-01-13 04:51:47* Test Item Value Reference Range Interpretation Comme nts NA (test code = 9685216284) 142 mmol/L 135-145 K (test code = 5468411896) 4.1 mmol/L 3.5-5.0 CL (test code = 2043110903) 103 mmol/L 98-108 CO2 TOTAL (test code = 7928818685) 28 mmol/L 23-31 AGAP (test code = 7778696918) 2-16 BUN (test code = 6132124198) 8 mg/dL 7-23 GLUCOSE (test code = 0371439836) 100 mg/dL 70-110 CREATININE (test code = 3963761909) 0.67 mg/dL 0.50-1.04 TOTAL BILI (test code = 1206993343) 0.9 mg/dL 0.1-1.1 CALCIUM (test code = 8557004063) 9.8 mg/dL 8.6-10.6 T PROTEIN (test code = 9952755221) 7.9 g/dL 6.3-8.2 ALBUMIN (test code = 6928303847) 4.6 g/dL 3.5-5.0 ALK PHOS (test code = 5224201427) 81 U/L 34-122 ALTv (test code = 1742-6) 14 U/L 5-35 AST(SGOT) (test code = 4109610823) 18 U/L 13-40 eGFR (test code = 2652704512) mL/min/1.73m2 ZAYRA (test code = ZAYRA) Association [...] or urine or abnormalities in imaging tests). [facility] CampusPOCT [id number] 07:22:00* Test Item Value Reference Range Interpretation Comme nts POCT PREG (test code = 1605) Negative On board controls acceptable with C Line (test code = 3574) Present POCT PREG LOT # (test code = 3575) [id number] POCT PREG TEST DATE ( test code = 3576) 04/21/2022 Lab Interpretation (test cod e = 67165-3) Normal [facility] Consult Notes Date/Time Note Provider Source 2024-02-09 10:28:51 History & Physical Chief complaint Right ankle fracture Assessment Allie Martin is a 28 y.o. female . She has a past medical history of Pafib (no meds and no a/c), PFO, morbid obesity, and SKINNY/MDD. Patient is presenting to [facility] after mechanical fall resulting in right ankle [...] I risk with 3.9% risk of MACE -Pierre perioperative risk for myocardial infarction or cardiac arrest (SNOW): 0.1 % Pulmonary -ARISCAT score for predictor of pulmonary complications: 1.6% risk of in-hospital post-op pulmonary complications Venous Thromboembolism Risk -Caprini VTE score: 10% risk of venous thromboembolism. Recommend recommend chemical dvt prophylaxis 3. EKG/Cardiac Imaging: pending -field marketing representative: n/a 4. Exercise tolerance: Based on questions [...] history listed below who is presenting to [facility] for evaluation and treatment of her right ankle fracture. She was at a local bar with her boyfriend when she sustained a mechanical fall and rolled her right ankle. She was brought to [facility] for evaluation and workup found trimalleolar ankle [...] and please contact me for any clarifications. [facility] Procedure Notes Date/Time Note Provider Source 2024-03-05 [...] Implant Name Type Inv. Item Serial No. Cotton Ball Bagger Lot No. LRB No. Used Action PLATE TPLUS 2.5MM 12H - [id number] Orthopedic Implant PLATE TPLUS 2.5MM 12H Informative Right 1 Implanted 8 HOLE ONE THIRD TUBULAR, NONLOCKING [facility] Right 1 Implanted SCREW BN 2MM 16MM ANTHEM SS - [id number] Orthopedic Implant SCREW BN 2MM 16MM ANTHEM SS [facility] Right 1 Implanted PLATE K 91MM SS 2.5MM SCR 12 H - [id number] Orthopedic Implant PLATE K 91MM SS 2.5MM SCR [address] [facility] Right 1 Implanted SCREW BN 3.5MM 12MM ANTHEM SS - [id number] Screw SCREW BN 3.5MM 12MM [address]THE[address] SS [facility] Right 1 Implanted SCREW BN 3.5MM 14MM ANTHEM SS - [id number] Screw SCREW BN 3.5MM 14MM [address] [facility] Right 2 Implanted SCREW BN 3.5MM 20MM ANTHEM SS - [id number] Screw SCREW BN 3.5MM 20MM [address]THE[address] SS [facility] Right 1 Implanted 3.[address] [facility] Right 1 Implanted SCREW BN 3.5MM 65MM ANTHEM SS - [id number] Orthopedic Implant SCREW BN 3.5MM [address] [facility] Right 1 Implanted [address] [facility] Right 1 Implanted 2[address] [facility] Right [address] Implanted [address] [facility] Right 1 Implanted [address] [facility] Right 1 Implanted [address] [facility] Right 1 Implanted 2.[address] [facility] Right 1 Implanted 2.[address] [facility] Right 2 Implanted FINDINGS: 1. Stable reduction [...] her in 2 weeks for wound check. [facility] Orthopedic Surgery Physician Yvan Roche 2024-03-04 08:36:30 Current Medications Medication Instructions ibuprofen 600 MG tablet Continue until night before surgery methocarbamol (Robaxin) 500 MG tablet Continue until night before surgery aspirin EC 81 MG EC tablet Continue until night before surgery Additional Instructions: Thank you for choosing [facility] for your surgical care needs. Our goal is to provide you with compassionate care, while keeping you informed throughout your stay. If at any point you feel that you need additional information, have questions or simply want an update on the plan for the day, please feel free to contact one of our team members at Day surgery [phone] Anesthesia Clinic [phone] Arrival Information for Adults on the Day of Surgery The [facility] is the closest parking garage to the Adult Day Surgery Admissions area. [facility] Address: [address] [place] [address] *Parking rates for [facility] are comparable to other parking options available. [...] (Radha Germain, Fidel, Que, Kuldeep, Jose Ramon, Vilma.......) CHG Shower and Sleep Your body needs [...] hospital. You will need to remove nail swazi and arrive at the hospital without wearing [...] to provide your time of arrival. * [facility] Cardiology [facility] 2024-02-20 12:39:11 Current Medications Medication Instructions HYDROcodone-acetaminophen (Modale) 5-325 MG tablet Take morning of surgery with sip of water, no other fluids methocarbamol (Robaxin) 500 MG tablet Continue until night before surgery Additional Instructions: Thank you for choosing [facility] for your surgical care needs. Our goal is to provide you with compassionate care, while keeping you informed throughout your stay. If at any point you feel that you need additional information, have questions or simply want an update on the plan for the day, please feel free to contact one of our team members at Day surgery [phone] Anesthesia Clinic [phone] PARKING INFORMATION/ARRIVAL INFORMATION The [employer] is the closest parking garage to the Adult Day Surgery Admissions area. [facility] Address: [address] [place] [address] You will take the elevators directly connected [...] 7 days before your scheduled surgery. (Radha Germain Ozempic, Que, Kuldeep, Jose Ramon, Vilma.......) Preparation Your [...] CHG. You will need to remove nail swazi and arrive at the hospital without wearing [...] surgery to provide your time of arrival ([phone]). * If your condition changes, please notify your surgeon and the Day Surgery Dept. Yvan Roche Notes Date/Time Note Provider Source Referral ID Status Reason Start Date Expiration Date Visits Re quested Visits Authorized [id number] 1 1 Yvan [id number] 19:13:43Pending Results Scheduled Orders Name Type Priority [...] encounter for closed fracture 03/05/2024 8:35 AM RECORD PRODUCER REMOVAL, EXTERNAL FIXATION DEVICE Displaced trimalleolar fracture of right lower leg, initial encounter for closed fracture 03/05/2024 8:35 AM RECORD PRODUCER Health Maintenance Due Date Last Done Comments [...] on patient's age to complete this topic [facility]Rkedhgp4199-88-57 19:13:43 [place] [id number] 19:13:43 [facility] HospitalPyyfinu4119-34-18 02:02:14* Auth/Cert (Routine) Specialty Diagnoses / Procedures Referred By Contac t Referred To Contact Diagnoses Displaced trimalleolar fracture of right lower leg, initial encounter for closed fracture Displaced trimalleolar fracture right ankle, Status/Post external fixator fixation Procedures DC OPEN TX TRIMALLEOLAR ANKLE FX W/O FIXJ PST LIP DC REMOVAL EXTERNAL FIXATION SYSTEM UNDER ANES OPEN REDUCTION INTERNAL FIXATION , RIGHT ANKLE EXTERNAL FIXATION DEVICE REMOVAL, RIGHT ANKLE Dirk Gonzalez MD [address] [address] Phone: tel: fax: [facility] (Main Operating Room) [address] [place] [phone] Phone: tel: Referral ID Status Reason Start Date Expiration Date Visits Re quested Visits Authorized [id number] 1 1 [facility]oumew6230-50-25 02:02:14Scheduled Orders Health Maintenance Due Date Last [...] on patient's age to complete this topic [facility] HospitalQklybxw2489-71-69 02:02:14 [facility] HospitalEzqlast0859-73-76 02:02:14 [facility] HospitalEzzsvcr6867-97-94 07:56:32 Today's procedure cancelled due to edema at right ankle, rescheduled for next week. [facility]2024-10-29 00:40:56* Audit-C Score Answer Date of Assessment [...] Questionnaire -2 Score 0 02/09/2024 9:00 PM TEAT Hajji Mendes RN * Calculated C-SSRS Risk Score (Lifetime/Recent) Answer Date of Assessment Author No Risk Indicated 02/09/2024 8:59 AM CDT Cabrera Hernandez RN * In the past [...] 02/09/2024 9:00 PM TEAT Hajji Mora RN [place] numb or detached from p eople, activities, or your surroundings? No 02/09/2024 9:00 PM TEAT Hajji Tidwell RN [place] guilty or unable to sto p blaming yourself or others for the events or any problems the events may have caused? No 02/09/2024 9:00 PM TEAT Hajji Mendes RN * [place] Suicide Severity Rating Scale (Screener/Recent Self-Report) Question Answer Date of Assessment Author 1. Wish to be (Past 1 Month) No 024 8:59 AM CDT Beatrice Hernandez RN 2. Non-Specific Active Suici fernando Thoughts (Past 1 Month) No 02/09/2024 8:59 AM TEAT Yumiko Hernandez RN 6. Suicidal Behavior (Lifetime) No 8:59 AM CDT Beatrice Hernandez RN * Primary Care PTSD Score Question Answer Date of Assessment Author Primary Care PTSD Total Score 1 02/09/2024 9:00 PM CDT Hajji Mendes RN [facility] HospitalTxknvzb8296-58-06 00:40:56Upcoming Encounters Pending Results Name Type Priority Associated Diagnoses Date /Time ECG 12 lead ECG Routine 02/17/2024 3: 11 PM CDT Scheduled Procedures Name Priority Associated Diagnoses Date/Ti me ORIF, ANKLE Displaced trimal leolar fracture of right lower leg, initial encounter for closed fracture 02/26/2024 7:35 AM RECORD PRODUCER REMOVAL, EXTERNAL FIXATION DEVICE Displaced trimalleolar fracture of right lower leg, initial encounter for closed fracture 02/26/2024 7:35 AM RECORD PRODUCER Health Maintenance Due Date Last Done Comments Lipid Panel 1995 HPV Vaccines (3 - 2-dose series) 12/21/2010 07/26/2010, 06/20/2010 Influenza Vaccine (#1) 2023 2, 07/19/2021, 02/11/2019 Pap Smear 07/19/2024 07/19/2021 DTaP/Tdap/Td [...] on patient's age to complete this topic [facility] HospitalUfsmais4059-49-47 00:40:56 [facility] HospitalNnkjlwk5275-49-85 00:40:56 [facility] HospitalTbycsdv6118-57-21 15:49:09* [facility] HospitalCfxfkwe9029-25-17 15:49:09* Audit- C Score Answer Date of [...] not want to? No 02/09/2024 9:00 PM TEAT Hajji Mendes RN Tried hard not to think abou t the events or went out of your way to avoid situations that reminded you of the events? No 02/09/2024 9:00 PM Hajji Lundberg RN Been constantly on guard, watchful, or easily startled? No 02/09/2024 9:00 PM TAET Hajji Mora RN [place] numb or detached from p eople, activities, or your surroundings? No 02/09/2024 9:00 PM TEAT Hajji Tidwell RN [place] guilty or unable to sto p blaming yourself or others for the events or any problems the events may have caused? No 02/09/2024 9:00 PM TEAT Hajji Mendes RN * [place] Suicide Severity Rating Scale (Screener/Recent Self-Report) Question Answer Date of Assessment Author 1. Wish to be (Past 1 Month) No 024 8:59 AM CDT Beatrice Hernandez RN 2. Non-Specific Active Suici fernando Thoughts (Past 1 Month) No 02/09/2024 8:59 AM TEAT Yumiko Hernandez RN 6. Suicidal Behavior (Lifetime) No 4 8:59 AM CDT Beatrice Hernandez RN * Primary Care PTSD Score Question Answer Date of Assessment Author Primary Care PTSD Total Score 1 02/09/2024 9:00 PM TEAT Hajji Mendes RN [facility] HospitalBloddpj3952-08-67 15:49:09* Mone Valdezmoiz Varela, DO - 02/10/2024 10:51 AM CDT DATE [...] to right ankle DISCHARGE MEDICATIONS New HYDROcodone-acetaminophen (Modale) 5-325 MG tablet - 1 tablet Every [...] patient/family education, medication review and discharge paperwork [facility] HospitalFhwgtzd3825-00-28 15:49:09* Angie Becerra OT - 02/10/2024 3:17 PM CDT Evaluation and Treatment Patient Name: Allie Martin Today's Date: 02/10/2024 Preferred Language: Azerbaijani Assessment & Plan Pt seen today for initial OT evaluation. Overall, pt tolerated session well. Pt is performing below baseline of IND. Pt previously living in [facility] with and 4 young children. Pt has [...] Toilet: Handicapped height Prior Function: Level of [place]: Other (Comment) (IND with ambulation) ADL Assistance: [...] Assessment LUE Assessment: Within Functional Limits Treatment: SHANNAN silva'd session. Pt received sitting up in chair with mother at [facility]. Pt agreeable to OT session. Obtained PLOF. [...] equipment not available at home. Mother at [facility] states that elevated toilet seat purchased for home. Pt verbalized understanding. Pt ambulated to sink and performed hand hygiene with SPV while seated. Pt performed oral care with S/U while seated. Pt returned to standing and ambulated back to chair at [facility]. Pt remained sitting up in chair with mother at [facility] at conclusion of session. All needs within [...] assistance Trials/Comments 1: NWB RLE Transfer To/From: Acw-go-Sqtrh/Sjdno-sv-Rld Assistive Devices And Adaptive Equipments: Walker, front-wheeled [...] will serve as the discharge summary. Angie Becerra, OT * Julia Cisneros, PT - 02/10/2024 1:48 PM CDT Evaluation and Treatment Note Patient Name: Allie Martin Today's Date: 02/10/2024 Preferred Language: Azerbaijani Assessment & Plan 28 y/o female with [...] living with spouse and 4 kids in [facility]. Pt mom will assist her at SD. Pt has crutches at home. CLOF- Pt is A&Ox4, cooperative and eager to return home. Reviewed NWB status on R LE. Pt is INDEP with bed mob, MOD I with transfers and gait with RW NWB LE. Pt will need RW, WC for long distances and shower chair at SD. Pt clear for DC from PT standpoint. [...] -- -- 74 -- 99 % -- 02/10/24 0439 106/52 70 -- -- -- -- 02/10/24 0018 -- -- 72 -- 97 % -- 02/10/24 0018 135/80 98 -- -- -- -- 02/09/242016 -- -- 77 -- 96 % -- 02/09/24 2017 132/76 95 -- -- -- -- 02/09/24 [...] NWB R LE ex fix Transfer To/From: Bep-yf-Cgvfa/Ckjcq-oj-Ypg Assistive Devices And Adaptive Equipments: Walker, front-wheeled [...] 1 Comment: MOD I NWB R LE Extremity Assessments:RLE Assessment RLE Assessment: [...] NWB R LE ex fix Transfer To/From: Bho-vf-Lkand/Qangj-mu-Wrb Assistive Devices And Adaptive Equipments: Walker, front-wheeled [...] A Little Mobility Inpatient Raw Score: 21 -HLM Goal: 6 Walked 25 feet or more [...] Dr. Dirk Gonzalez in 1 weeks. Call [phone] for appt. - Patient is clear for dc from an ORS perspective with follow up as stated in the loss prevention consultant clearance note. Please call [phone]) with questions regarding patients orthopedic care Gabriele Yousif MD [place] Orthopaedic Surgery 02/10/24 8:00 AM * Jorge Francis MD - 02/09/2024 7:02 AM CDT ORS Brief Note To OR today 02/09/24 w/ ORS for Ex-fix R ankle Keep NPO Tonja Latif MD [place] Ortho PGY-5 Pager [phone] [facility] HospitalQjvhrjx7742-19-16 15:49:09Pending Results Scheduled Orders Name Type Priority [...] 12/21/2010 07/26/2010, 06/20/2010 Influenza Vaccine (#1) 2023 2, 07/19/2021, 02/11/2019 Pap Smear 07/19/2024 07/19/2021 DTaP/Tdap/Td [...] on patient's age to complete this topic [facility] HospitalVozukyr8599-61-97 15:49:09 [facility] HospitalWyjcszi3383-11-21 15:49:09 Diagnosis Ankle fracture, right, close d, initial encounter - Primary Ankle fracture, right, close d, initial encounter Morbid obesity (HCC) Morbid obesity SKINNY (generalized anxiety disorder) Generalized anxiety disorder MDD (major depressive disord er) Vitamin B6 deficiency Paroxysmal A-fib (CMS/HCC) ( HCC) PFO (patent foramen ovale) Ostium secundum type atrial septal defect Preop examination Unspecified pre-operative examination Leukocytosis Leukocytosis, unspecified [facility] HospitalBnpizes3752-34-37 15:49:09 [facility] HospitalEfnyhsv2747-77-76 13:44:23 Message sent to Pharmacy: Joie Patrick, I was waiting on the cefazolin so it was given at 10 am. The pt is waiting to dc till after her last dose. When is the earliest I can give it? It is scheduled for 3 pm right now Pharmacy response: 3 pm is the earliest. [facility] Udcrykr4355-31-71 13:43:30 The patient is Moderately Stable - Low risk of patient condition declining or worsening The patient's goals for the shift include pain control The clinical goals for the shift include pain control and safetyy Over the shift, the patient did not make progress toward the following goals. Barriers to progression include pain . Recommendations to address these barriers include pain control. T [facility] Sllisyh2976-19-37 11:34:49 Images from the original note were not included. Hydrocodone and Acetaminophen - Video Understand how Hydrocodone and Acetaminophen work to help you manage pain. Also, understand the possible side effects to be aware of and how to properly use and store these medications. To view the video go to this web address: [email or web address] Or, scan this QR code with your smart phone ? [facility]2024-10-21 11:34:02 Images from the original note were not included. [address] Understanding Ankle Fracture Open Reduction and Internal [...] you. Last Reviewed Date: 2021 00:00:00 ? [id number] [employer]. All rights reserved. This information is not intended as a substitute for professional medical care. Always follow your healthcare professional's instructions. [facility]2024-10-21 01:09:38 The patient is Moderately Stable - Low risk of patient condition declining or worsening The patient's goals for the shift include pain control The clinical goals for the shift include pain control and safetyy Over the shift, the patient did not make progress toward the following goals. Barriers to progression include none. Recommendations to address these barriers include medication administartion. [facility]2024-10-20 12:51:33 Patient arrived to floor. [facility] Jqrzxii3140-96-81 16:35:00 Attempted to contact patient to discuss. Tamiko Cisneros [facility]eierv2896-79-06 13:46:50 Images from the original note were not included. Requested Renewals dicyclomine 10 mg capsule Sig: Take 1 capsule by mouth 2 (two) times daily as needed for Abdominal pain. Disp: 14 capsule Refills: 0 Start: 12/25/2023 Class: eRX For: Generalized abdominal pain Last ordered: 2 months ago (10/23/2023) by TARA Chapman Patient comment: N/a [employer]ics Vwgbyl4312/25/2023 01:41 PM Protocol Details Valid encounter within last 12 months To be filled at: [facility] [address] [place] [address] Recent Visits Date Type Provider Dept 10/23/23 Office Visit Anna eHarn PA [facility] 09/10/23 Office Visit Anna Hearn PA [facility] 08/29/23 Office Visit Anna Hearn PA [facility] Showing recent visits within past 540 days with a meds authorizing provider and meeting all other requirements Future Appointments No visits were found meeting these conditions. Showing future appointments within next 150 days with a meds authorizing provider and meeting all other requirements Tatyana Vera [facility]2024-08-31 23:13:24 Pt given printed and verbal discharge [...] gait, in no apparent distress, Miriam Medina [facility] HospitalCzhhdz2601-83-94 20:34:30 Summary: Triage CC: patient states she has a-fib and she was feeling bad yesterday and went to [employer] and was told it was from her [...] assistance Appears in no distress Aye Butterfield [facility] HospitalGmcapg9748-67-50 20:30:00 Associated Order(s): EKG-12 Lead ROUTINE ONCE Pre-Procedure Diagnose(s): Palpitations Post-Procedure Diagnose(s): Palpitations [facility] Emergency Department Note Patient Name: Allie Martin Date of : 1995 28 year old female Treatment Room: TX4/VT4 Primary Care Physician: PATIENT DOES NOT HAVE A PCP Patient Escorted by: Self [9] Mode of Arrival: Personal means [1] EMS Treatment Prior to ED Arrival: FIELD INSPECTOR treatment: None Travel and Exposure Screening: Symptoms [...] She does follow with cardiology here at [facility] and last saw them last month. No use of caffeinated products. She does not work. She does feel to be eating and drinking enough for the weather. Here for evaluation. Past Medical History/Immunizations: Past Medical History: Diagnosis Date Anemia of mother in , antepartum 01/14/2018 Anxiety 08/29/2023 Anxiety disorder, unspecified Atrial fibrillation Gestational hypertension, third trimester 11/15/2016 Screening for cystic fibrosis 2015 NEGATIVE Trichomonal vaginitis during in first trimester [...] N/A 02/26/2022 Surgeon: Elliot Gould MD; Location: [facility] Review of [...] 0.01 - 0.07 10*3/uL COMP. METABOLIC PANEL (50178) - Abnormal NA 140 135 - 145 [...] Procedures CBC WITH DIFF COMP. METABOLIC PANEL (21601) Magnesium Thyroid Stimulating Hormone FREE T3 Free [...] DO -- ED COURSE Diagnosis/Impression as of 12/21/232301 Palpitations Hypomagnesemia Procedures: EKG-12 Lead ROUTINE ONCE Date/Time: 12/21/2023 8:57 PM Performed by: Melissa Sams DO Authorized by: Melissa Sams DO ECG interpreted by ED Physician in the absence of a field marketing representative: yes Interpretation: Interpretation: normal Rate: ECG rate: [...] She does follow with cardiology here at [facility]. No nausea or vomiting. No fevers or chills. She has been eating and drinking well. She denies any use of caffeinated beverages or products. Vital signs are stable in the ER. The patient is obese. She has dry mucous membranes. Her conjunctiva are pink bilaterally. Her EKG shows a normal sinus rhythm, no STEMI. Will monitor the patient on telemetry to [facility] for any possible arrhythmias. Will also check laboratory studies including her electrolytes and thyroid panel. Final disposition pending. 2301 - the patient is doing well here [...] Electronically signed by: Melissa Sams DO 12/21/232301 [facility] - Vbzflx5947-27-27 23:45:00 [facility] ([facility]) EMERGENCY PROVIDER REPORT REPORT#:[id number] REPORT STATUS: Signed DATE:11/28/23 TIME: 2344 PATIENT: ALLIE MARTIN UNIT #: [id number] ROOM/BED: AGE: 28 SEX: F PCP PHYS: Danyell Arvizu MD SERVICE AUTHOR: Yves Membreno PIPE WRAPPING MACHINE OPERATOR * ALL edits or amendments must be made on the electronic/computer document * Yves Membreno 11/28/23 234: HPI-Dizziness/Weakness Free Text HPI Notes Free Text [...] 16 11/28 0156 Temp 98.2 11/27 2013 Review of Vital [...] Diagnostics Lab Results Interpretation Results Laboratory Tests 11/28/232230: [Embedded Image Not Available] Laboratory Tests: 11/27 [...] (Auto) (14.0 - 32.0 %) 37.4 H Marathon % (Auto) (4.8 - 9.0 %) 6.7 Eos % (Auto) (0.3 - 3.7 %) 1.0 Baso % (Auto) (0.0 - 2.0 %) 0.2 Neut # (Auto) (2.0 - 7.6 x10 3/uL) 7.12 Lymph # (Auto) (1.0 - 3.8 x10 3/uL) 4.90 H Marathon # (Auto) (0.1 - 0.8 x10 3/uL) [...] pH (5.0 - 7.0) 5.0 Ur Specific Carson (1.005 - 1.030) 1.009 Urine Protein (NEGATIVE) [...] Report Impression - Status: SIGNED Entered: 11/28/2023 2113 IMPRESSION: No acute bony abnormality. Impression By: [...] STA 11/28 2011 DC 11/27 PO 11/27 2013 2332 Electrolytic, Caloric, And Abel Sig/Phill Start time Last Medication Dose Route Stop Time Status Admin Sodium Chloride 1,000 ML X1ED STA 11/27 2156 DC 11/27 IV 11/27 215 2332 Gastrointestinal Drugs Sig/Phill Start time Last Medication Dose Route Stop Time Status Admin Ondansetron HCl 4 MG X1ED STA 11/28 0040 DC 11/28 IV 11/28 0041 0109 Meclizine HCl 50 MG X1ED STA 11/27 2156 DC 11/27 PO 11/27 215 2332 Differential Diagnosis )( Differential Diagnosis Acute [...] Pulse Ox 99 11/28 0156 B/P 148/78 08/09 0156 B/P Mean 101 11/29 155 O2 Delivery Room air 11/29 155 Pulse 87 11/29 155 Resp 16 11/29 155 Temp 98.2 11/27 2013 All vital signs [...] Referrals Provider Referral: Tj Cole MD Address: [address] [place] [address] [address] [place] [address] Provider Referral: Katelynn Nettles MD Address: [address] [place] [address] [address] [place] [address] Supervising Physician Note MidLv Saw Pt Alone I have reviewed the PA/PIPE WRAPPING MACHINE OPERATOR's note and plan of care. I was available for consultation as needed at all times during the patient's visit in the emergency department. I agree with the clinical impression, plan and disposition. at 2321 at [address] [facility] #:[id number] END OF REPORTMIGEE5166-09-52 14:30:00 Images from the original note were not included. Venipuncture collection performed by clean technique on the right anticubitus. Total of 1 attempts were made. Slight pressure and a bandage/dressing were applied to the site(s). The patient experienced no complications. The following specimens were processed according to instructions and sent to [facility] laboratories per lab order on 10/23/2023 : LT BLUE SST RED 2RST LAV 1 PPT DK GREEN (LiHep) 1 DK GREEN (SodH) OCAMPO DK BLUE (K2) DK BLUE (S) ACD Blood Culture NIPT/NTD [facility] Zopgms1154-24-80 13:45:00 Images from the original note were not included. Venipuncture collection performed by clean technique on the right anticubitus. Total of 1 attempts were made. Slight pressure and a bandage/dressing were applied to the site(s). The patient experienced no complications. The following specimens were processed according to instructions and sent to [facility] laboratories per lab order on 09/10/2023 : LT BLUE SST 1 RED LAV PPT DK GREEN (LiHep) DK GREEN (SodH) OCAMPO DK BLUE (K2) DK BLUE (S) ACD Blood Culture NIPT/NTD [facility] Ufctgi7957-61-34 10:35:58 Done! [place] 956724-05-16 15:07:41 Please review, complete, and sign if appropriate. Elena Salazar [place] 397974-05-16 14:56:58 Allie Martin is a 28 year old female Patient is calling requesting a referral for cardiology. Patient previously seen in [facility] but wants to go to [facility] location. Please contact pt [phone] (home) Iveth GeorgesRobert [place] [address]Tzklqh4114-17-40 10:45:00 Images from the original note were not included. Venipuncture collection performed by clean technique on the right anticubitus. Total of 1 attempts were made. Slight pressure and a bandage/dressing were applied to the site(s). The patient experienced no complications. The following specimens were processed according to instructions and sent to [facility] laboratories per lab order on 08/29/2023 : LT BLUE SST 3 RED LAV 2 PPT DK GREEN (LiHep) DK GREEN (SodH) OCAMPO DK BLUE (K2) DK BLUE (S) ACD Blood Culture NIPT/NTD 1 lt green T [place] 80244-03-29 08:12:39 Rx sent for diflucan [place] 17861-03-13 18:47:14 PT D/C home. GCS15, VS stable. Given D/C paperwork. Pt ambulatory at time of discharge. Pt educated on med usage, follow up care, s/s worsening condition, need for hydration. Pt verbalized understanding. [facility] Ed [facility] 15:50:36 Pt just left ED with her daughter after her daughter was d/c. Pt states when she got to the pharmacy to flower buncher or picker meds she had a moment where she felt confused. Pt reports having right eye pressure. Pt A&OX4, VSS. NAD Kriss Motley [facility] HospitalYyxbqs2547-70-45 00:10:27 Pt discharged with diagnosis of scalp pain. Printed and verbal instructions reviewed with and given to pt. Prescriptions given x 0. Pt verbalized understanding of teaching, and recommended follow-up. Denies questions or concerns at this time. Pt ambulatory at discharge. Appears in no apparent distress. No ataxia noted. RD PRODUCER Nataly Barger [facility] HospitalTqtqve4335-31-83 23:20:51 Patient arrived ambulatory to ED c/o knot to back of head that she noticed today. Patient denies any trauma to that area. States it is sore and hurts to touch. Patient also has a left sided swollen lymph node on neck and states yesterday BLE "danelle horses." No medications taken FIELD INSPECTOR. RD PRODUCER Miriam Medina [id number]24[facility]20 Pt given discharge instructions on nauseous. Given prescription X 1 for zofran. Pt advised to follow up with Gastroenterology and pcp. Pt left ER ambulatory. No signs of distress. IE Arias [id number] 07:02:36 Addendum: Pt signed out to me [...] 0.01 - 0.07 10*3/uL Comp. Metabolic Panel ([id number]) Collection Time: 05/11/23 6:34 AM Result Value [...] feeling better. Labs and other paperwork from [facility] in [employer] reviewed. WBCs are essentially the same today. Bilirubin has decreased to within normal limits. The patient states she has no PCP or GI follow-up, only cardiology for the sinus tachycardia. Will refer to family medicine clinic and GI for follow-up. Will discharge home on OTC Pepcid daily and prescription for Zofran and ODT as needed for nausea. Bosque diet. Return precautions given. [LS] 0804 Per [...] Stable Comment -- Contact information for follow-up [facility], [place] [facility]: Family Medicine [address] [place] [address], [address] [facility] [id number] Instructions: As needed Patient's Medications START taking [...] No medications on file Caity Pedraza M.D., [facility] Attendant Clinical Professor of Emergency Medicine Caity Pedraza MD 05/11/23 0816 [id number] 06:27:39 Pt states on and off for the last week she has been having pain to the mid chest area that radiates to the epigastric area and to the back after she eats. Pt was seen last Saturday at [facility] and dx with sinus tachycardia. Pt denies any N/V/D. [facility] Grace Rubin [facility]
[2024-06-20] MEDS ORDERED: KETOROLAC 30 MG/ML INJ ONE (03:32)
[2024-06-20] MEDS ORDERED: ACETAMINOPHEN 500 MG TAB ONE (03:32)
[2024-06-20] MEDS ORDERED: CEFTRIAXONE 1000 MG/VIAL ONE (03:32)
[2024-06-20] MEDS ORDERED: LIDOCAINE 1% MPF 2 ML AMPULE ONE (03:33)
--- NOTE | 2024-06-20 03:35 | ER ---
Nurse's Notes [facility] Name: Allie Hedrick Age: 29 yrs Sex: Female : 1995 Arrival Date: 06/20/2024 Time: 02:46 Bed IW1 Private MD: Diagnosis: Acute suppurative otitis media without spontaneous rupture of ear drum, right ear Presentation: 06/20 03:00 Chief complaint: Patient states: RIGHT SIDE EAR ACHE THAT STARTED ONE HOUR AGO. ha1 03:00 Coronavirus screen: Client denies travel out of the [place] in the last 14 days. Ebola ha1 Screen: No symptoms or risks identified at this time. Initial Sepsis Screen: Does the patient meet any 2 criteria? No. Patient's initial sepsis screen is negative. Does the patient have a suspected source of infection? No. Patient's initial sepsis screen is negative. Risk Assessment: Do you want to hurt yourself or someone else? Patient reports no desire to harm self or others. Onset of symptoms was June 20, 2024. 03:00 Method Of Arrival: Ambulatory ha1 03:00 Acuity: [facility] 4 ha1 Triage Assessment: 03:11 General: Appears uncomfortable, Behavior is calm, cooperative. Pain: Complains of pain ha1 in right ear Pain currently is 8 out of 10 on a pain scale. Quality of pain is described as aching. EENT:. Neuro: Level of Consciousness is awake, alert, obeys commands, Oriented to person, place, time, situation. Cardiovascular: Capillary refill < 3 seconds Patient's skin is warm and dry. Respiratory: Airway is patent Respiratory effort is even, unlabored, Respiratory pattern is regular, symmetrical. GI: No signs and/or symptoms were reported involving the gastrointestinal system. Abdomen is round non-distended. : No signs and/or symptoms were reported regarding the genitourinary system. Derm: Skin is pink, warm \T\ dry. OPERATIONS TRAINER: 03:57 LMP N/A - control method, Not ha1 Historical: - Allergies: 03:11 No Known Allergies; ha1 - PMHx: 03:11 adhd; AFIB; Anxiety; ha1 - PSHx: 03:11 section; Rt foot (an); ha1 - Immunization history:: Adult Immunizations up to date. - Infectious Disease History:: Denies. - Family history:: not pertinent. - Social history:: Smoking status: Patient denies any tobacco usage or history of. Screenin:13 [facility] ED Fall Risk Assessment (Adult) History of falling in the last 3 months, ha1 including since admission No falls in past 3 months (0 pts) Confusion or Disorientation No (0 pts) Intoxicated or Sedated No (0 pts) Impaired Gait No (0 pts) Mobility Assist Device Used No (0 pt) Altered Elimination No (0 pt) Score/Fall Risk Level 0 - 2 = Low Risk Oriented to surroundings, Maintained a safe environment, Educated pt \T\ family on fall prevention, incl call for assistance when getting out of bed, Hourly rounding (assess needs \T\ fall precautionary measures) done. Abuse screen: Denies threats or abuse. Denies injuries from another. Nutritional screening: No deficits noted. Tuberculosis screening: No symptoms or risk factors identified. Vital Signs: 03:00 BP 120 / 66; Pulse 76; Resp 17 S; Temp 98.1(T); Pulse Ox 100% on R/A; Weight 99.79 kg; ha1 Height 5 ft. 6 in. ; 03:00 Body Mass Index 35.51 (99.79 kg, 167.64 cm) ha1 Carlos Coma Score: 02:59 Eye Response: spontaneous(4). Motor Response: obeys commands(6). Verbal Response: sp4 oriented(5). Total: 15. ED Course: 02:49 Patient arrived in ED. gm2 02:58 Ezio River MD is Attending Physician. sp4 03:00 Arm band placed on right wrist. ha1 03:00 Patient has correct armband on for positive identification. Provided Education on: PLAN ha1 OF CARE . 03:11 Triage completed. ha1 03:56 No provider procedures requiring assistance completed. Patient did not have IV access ha1 during this emergency room visit. Administered Medications: 03:34 Drug: Ketorolac IVP 30 mg IVP once {Note: given IM at right deltoid .} Route: IVP; ha1 Site: Other; 03:56 Follow up: Response: No adverse reaction; Marked relief of symptoms; Pain is decreased ha1 03:35 Drug: Rocephin (cefTRIAXone) IM 1 grams IM once Route: IM; Site: left deltoid; ha1 03:56 Follow up: Response: No adverse reaction ha1 03:35 Drug: Acetaminophen PO 1000 mg PO once Route: PO; ha1 03:56 Follow up: Response: No adverse reaction; Pain is decreased ha1 Medication: 03:14 VIS not applicable for this client. ha1 Outcome: 03:35 Discharge ordered by . sp4 03:57 Discharged to home ambulatory, ha1 03:57 Condition: stable 03:57 Discharge instructions given to patient, Instructed on discharge instructions, follow up and referral plans. medication usage, Demonstrated understanding of instructions, follow-up care, medications, Prescriptions given X 3, 03:57 Patient left the ED. ha1 Signatures: Silvia Cowart RN RN ha1 Ezio River MD MD sp4 Emely Tobar 2 Corrections: (The following items were deleted from the chart) 03:47 03:46 Ketorolac IVP 30 mg IVP in Other; given IM at right deltoid ha1 ha1
--- NOTE | 2024-06-20 03:36 | EDPHYS ---
Physician Documentation [facility] [place], [place] Name: Allie Hedrick Age: 29 yrs Sex: Female : 1995 Arrival Date: 06/20/2024 Time: 02:46 Bed IW1 Private MD: ED Physician Ezio River HPI: 06/20 02:58 This 29 yrs old Female presents to ER via Unassigned with complaints of Ear sp4 Pain. 02:59 29-year-old female EGA 21 weeks 2 days presents with acute onset of head sp4 pressure and discomfort. Patient states she is stressed out. . TAKE DOWN SORTER: 03:57 LMP N/A - control method, Not ha1 Historical: - Allergies: 03:11 No Known Allergies; ha1 - PMHx: 03:11 adhd; AFIB; Anxiety; ha1 - PSHx: 03:11 section; Rt foot (an); ha1 - Immunization history:: Adult Immunizations up to date. - Infectious Disease History:: Denies. - Family history:: not pertinent. - Social history:: Smoking status: Patient denies any tobacco usage or history of. ROS: 02:59 Constitutional: Negative for fever, chills, and weight loss, positive head pressure and sp4 stress 02:59 All other systems are negative, Exam: 02:59 Constitutional: This is a well developed, well nourished patient who is awake, alert, sp4 and in no acute distress. Head/Face: Normocephalic, atraumatic. Eyes: Pupils equal round and reactive to light, extra-ocular motions intact. Lids and lashes normal. Conjunctiva and sclera are not injected. Cornea within normal limits. Periorbital areas with no swelling, redness, or edema. ENT: Nares patent. No nasal discharge, no septal abnormalities noted. Tympanic membranes are normal and external auditory canals are clear. Oropharynx with no redness, swelling, or masses, exudates, or evidence of obstruction, uvula midline. Mucous membranes moist. Neck: Trachea midline, no thyromegaly or masses palpated, and no cervical lymphadenopathy. Supple, full range of motion without nuchal rigidity, or vertebral point tenderness. Chest/axilla: Normal chest wall appearance and motion. Nontender with no deformity. No lesions are appreciated. Cardiovascular: Regular rate and rhythm with a normal S1 and S2. No gallops, murmurs, or rubs. Normal PMI, no JVD. No pulse deficits. Respiratory: Lungs have equal breath sounds bilaterally, clear to auscultation and percussion. No rales, rhonchi or wheezes noted. No increased work of breathing, no retractions or nasal flaring. Abdomen/GI: Soft, with normal bowel sounds. No distension or tympany. No guarding or rebound. No evidence of tenderness throughout. Back: No spinal tenderness. No costovertebral tenderness. Skin: Warm, dry with normal turgor. Normal color with no rashes, no lesions, and no evidence of cellulitis. MS/ Extremity: Pulses equal, no cyanosis. Neurovascular intact. Full, normal range of motion. Neuro: Awake and alert, GCS 15, oriented to person, place, time, and situation. Cranial nerves II-XII grossly intact. Motor strength 5/5 in all extremities. Sensory grossly intact. Psych: Awake, alert, with orientation to person, place and time. Behavior, mood, and affect are within normal limits Vital Signs: 03:00 BP 120 / 66; Pulse 76; Resp 17 S; Temp 98.1(T); Pulse Ox 100% on R/A; Weight 99.79 kg; ha1 Height 5 ft. 6 in. ; 03:00 Body Mass Index 35.51 (99.79 kg, 167.64 cm) ha1 Carlos Coma Score: 02:59 Eye Response: spontaneous(4). Motor Response: obeys commands(6). Verbal Response: sp4 oriented(5). Total: 15. MDM: 03:27 Medical Screening Exam initiated sp4 06:03 Differential diagnosis: otitis media, otitis externa, ruptured TM, foreign body, acute sp4 otalgia. Data reviewed: vital signs, nurses notes. ED course: Stable for discharge home. Administered Medications: 03:34 Drug: Ketorolac IVP 30 mg IVP once {Note: given IM at right deltoid .} Route: IVP; ha1 Site: Other; 03:56 Follow up: Response: No adverse reaction; Marked relief of symptoms; Pain is decreased ha1 03:35 Drug: Rocephin (cefTRIAXone) IM 1 grams IM once Route: IM; Site: left deltoid; ha1 03:56 Follow up: Response: No adverse reaction ha1 03:35 Drug: Acetaminophen PO 1000 mg PO once Route: PO; ha1 03:56 Follow up: Response: No adverse reaction; Pain is decreased ha1 Disposition Summary: 06/20/24 03:35 Discharge Ordered Notes: Location: Home sp4 Problem: new sp4 Symptoms: have improved sp4 Condition: Stable sp4 Diagnosis - Acute suppurative otitis media without spontaneous rupture of ear drum, right ear sp4 Followup: sp4 - With: Private Physician - When: 7 - 10 days - Reason: Recheck today's complaints Discharge Instructions: - Discharge Summary Sheet sp4 - Otitis Media, Adult, [id number] sp4 Forms: - Patient Portal Instructions sp4 Prescriptions: - cefdinir 300 mg Oral capsule - take 1 capsule ORAL route every 12 hours; 20 capsule; Refills: 0, Product sp4 Selection Permitted - Ibuprofen 800 mg Oral Tablet - take 1 tablet ORAL route every 8 hours As needed take with food; 30 tablet; sp4 Refills: 0, Product Selection Permitted Signatures: Silvia Cowart RN RN ha1 Ezio River MD MD sp4
[2024-06-20 04:02] VITALS: BP 120/66; TEMP 98.1; O2SAT 100
== END 2024-06-20 03:57 | disposition home or self-care (01) ==
LOC: ER 02:46
DX: O99.891 Other specified diseases and conditions complicating pregnancy (principal); H66.001 Acute suppurative otitis media without spontaneous rupture of ear drum, right ear; Z3A.21 21 weeks gestation of pregnancy
CPT/HCPCS: 96372; 96374; 99284; J0696